=== PATIENT | female | born 1975 | race Caucasian/White ===

== ENCOUNTER 2018-01-06 16:49 | Inpatient (IN) ==
[2018-01-06] MEDS ORDERED: Isovue-370 500 ML INFUS..BTL IV ONE (17:02)
[2018-01-06] MEDS ORDERED: Ondansetron 4 MG/2 ML VIAL IVP ONE (17:03)
[2018-01-06] MEDS ORDERED: *HR* FentaNYL (PF) 100 MCG/2 ML VIAL IVP ONE (17:03)
--- NOTE | 2018-01-06 17:07 | Emergency Department Note ---
Disposition Clinical Impression: Calciphylaxis Cellulitis Qualifiers: Site of cellulitis: unspecified site Qualified Code(s): L03.90 - Cellulitis, unspecified Disposition: Admitted As Inpatient Condition: Fair Referrals: Peter Vicente DO [Primary Care Provider] - Forms: ED Satisfaction Letter Time of Disposition: 18:59 Skin/Abscess/FB HPI Chief complaint: ED Skin/Abscess/Foreign Body Stated complaint: Skin coming off- not fast tracl Time Seen by Provider: 01/06/18 16:57 Source: patient Mode of arrival: ambulatory Limitations: no limitations Nursing Notes Reviewed: Yes Vital Signs Reviewed: Yes HPI Narrative: 42-year-old with lesions on her skin for the last month. She saw her family doctor told her they were bruises. Patient has had increasing pain with progression of symptoms. Pt Subjective Complaint: rash Onset (ago): week(s) Location: Abdomen, buttocks Severity: moderate Quality: aching Consistency: constant Improves with: none Worsens with: movement Context: other (Necrotic areas of skin) Treatments prior to arrival: none Home Medications Medication Instructions Recorded Confirmed Albuterol Sulfate [Albuterol 2 puff IH Q4H PRN 09/09/16 02/27/17 Inhaler] Amiodarone [Cordarone] 200 mg PO DAILY 09/09/16 02/27/17 Amlodipine Besylate 10 mg PO DAILY 09/09/16 02/27/17 Atorvastatin [Lipitor] 40 mg PO HS 09/09/16 02/27/17 Budesonide/Formoterol 160/4.5 2 puff IH BIDR 09/09/16 02/27/17 [Symbicort 160/4.5] Insulin ASPART [Novolog Flexpen] 18 unit SQ TID PRN 09/09/16 02/27/17 Insulin Glargine [Lantus] 8 unit SQ HS 09/09/16 02/27/17 Ipratropium/Albuterol Neb [Duoneb] 3 ml IH QID PRN 09/09/16 02/27/17 Levothyroxine Sodium [Synthroid] 200 mcg PO QAM 09/09/16 02/27/17 Metoprolol Succinate 25 mg PO DAILY 09/09/16 02/27/17 Omeprazole [PriLOSEC] 20 mg PO DAILY 09/09/16 02/27/17 Warfarin [Coumadin] 4 mg PO DAILY 09/09/16 02/27/17 cloNIDine HCl [Clonidine HCl] 0.3 mg PO TID 09/09/16 02/27/17 hydrALAZINE [HydrALAZINE] 50 mg PO BID 09/09/16 02/27/17 predniSONE [PredniSONE] 7.5 mg PO DAILY 09/09/16 02/27/17 Acetaminophen [Acetaminophen ER] 650 mg PO Q4H PRN 12/23/16 02/27/17 Diphenoxylate/Atropine [Lomotil 1 each PO Q4H PRN 12/23/16 02/27/17 2.5 mg/0.025 mg] Montelukast [Singulair] 10 mg PO DAILY 02/16/17 02/27/17 Allergies Allergy/AdvReac Type Severity Reaction Status Date / Time heparin Allergy See Verified 01/06/18 16:55 Comments All systems ED: reviewed and negative except as stated. Constitutional: Denies: fever, chills, weakness, weight change Eyes: Denies: eye pain, eye discharge, vision change ENT ED: Denies: ear pain, throat pain, dental pain, hearing loss, epistaxis, congestion, dysphagia Cardiovascular: Denies: chest pain, palpitations, dyspnea on exertion, edema, syncope Respiratory: Denies: cough, dyspnea, wheezes, hemoptysis, stridor Gastrointestinal: Denies: abdominal pain, nausea, vomiting, diarrhea, constipation, hematemesis, melena, hematochezia Genitourinary: Denies: dysuria, frequency, hematuria, discharge Musculoskeletal: Denies: back pain, neck pain, arthralgia, myalgia Integumentary: Reports: rash (Erythematous rash with areas of necrosis of the skin on the lower abdominal wall.). Denies: abrasion, lesions Neurological: Denies: headache, weakness, numbness, paresthesias, confusion, abnormal gait, vertigo Psychiatric: Denies: anxiety, depression, suicidal thoughts, homicidal thoughts , auditory hallucinations, visual hallucinations Endocrine: Denies: fatigue Hematological/Lymphatic: Denies: easy bleeding, easy bruising Allergic/Immunologic: Denies: facial swelling, urticaria Past Medical History - Past Medical History Medical history: Reports: asthma, atrial fibrillation, diabetes, GI bleed, hyperlipidemia, hypertension, renal disease, thyroid disease Surgical history: Reports: appendectomy, cholecystectomy, thyroidectomy, other Psychiatric history: Reports: no psych history 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 - Social History Smoking Status: Never smoker Smokeless Tobacco Status: No Alcohol use: Reports: none Drug use: Reports: none Physical Exam - General Limitations: no limitations General appearance: alert, in no apparent distress - Head Head exam: atraumatic, normocephalic, normal inspection - Eye Eye exam: Present: normal appearance, PERRL, EOMI - ENT ENT exam: normal exam, normal oropharynx, mucous membranes moist - Neck Neck exam: Present: normal inspection, full ROM, trachea midline - Chest Chest inspection: Present: normal inspection, symmetric chest wall rise - Respiratory Respiratory exam: Present: normal lung sounds bilaterally - Cardiovascular Cardiovascular exam: Present: regular rate, normal rhythm, normal heart sounds - Abdominal Exam Abdominal exam: Present: soft, other (Areas of erythematous rash with central necrosis on the abdominal wall buttocks and lateral hips.) - Expanded Lower Extremity Exam Neurovascular/Tendon exam: Absent: motor deficit, sensory deficit, tendon deficit Gait: observed and normal - Back Exam Back exam: Present: normal inspection, full ROM. Absent: tenderness - Neurological Exam Neurological exam: Present: alert, oriented X3 - Psychiatric Psychiatric exam: Present: normal affect, normal mood - Skin Skin exam: Present: warm, dry, intact, normal color Course - Reevaluation(s) Reevaluation #1: 42-year-old renal dialysis patient comes in with several lesions on the lower abdomen, white counts elevated lactates normal. CT obtained. Disposition based on CT scanning. Calciphylaxis is in the differential. Time: 18:58 - Consultations Consultation #1: Discussed with , will see in consult, okay to give contrast with CT. Time: 18:57 Consultation #2: Discussed with Dr. Addison, admit. Time: 20:19 Vital Signs Temperature 97.8 F 01/06/18 16:51 Pulse Rate 94 01/06/18 16:51 Respiratory Rate 18 01/06/18 16:51 Blood Pressure 113/75 01/06/18 16:51 O2 Sat by Pulse Oximetry 92 01/06/18 16:51 Temperature 97.8 F 01/06/18 17:43 Pulse Rate 73 01/06/18 19:33 Respiratory Rate 16 01/06/18 19:33 Blood Pressure 143/81 01/06/18 19:33 O2 Sat by Pulse Oximetry 100 01/06/18 19:33 Oxygen Delivery Oxygen Delivery Room Air Skin/Abscess/Foreign Body - Lab Data Lab results reviewed: Yes I reviewed the patient's lab results. Result diagrams: 01/06/18 18:09 01/06/18 18:09 Lab Results 01/06/18 01/06/18 01/06/18 Range/Units 18:09 18:09 18:09 WBC 21.7 H (4.3-11.1) K/mcL RBC 2.19 L (3.82-4.97) M/mcL Hgb 7.7 L (11.5-15.4) g/dL Hct 22.9 L (35.3-44.9) % MCV 104.6 H (83.0-100.0) fL MCH 35.2 H (28.0-33.3) pg MCHC 33.6 (31.6-35.5) g/dL RDW 13.8 (11.5-14.5) % Plt Count 219 (140-400) K/mcL MPV 10.5 (9.4-12.4) fL Immature Gran % 2.3 (0-4) % Seg Neutrophils % 85.1 % Lymphocytes % 4.1 % Monocytes % 7.8 % Eosinophils % 0.6 % Basophils % 0.1 % Neutrophils # 18.5 H (1.6-8.9) K/mcL Lymphocytes # 0.9 (0.6-4.6) K/mcL Monocytes # 1.7 H (0.0-1.3) K/mcL Eosinophils # 0.1 (0.0-0.6) K/mcL Basophils # 0.0 (0.0-0.2) K/mcL ESR 47 H (0-15) mm/hr PT 37.8 H (9.4-12.1) Seconds INR 3.4 APTT 47.8 H (26.0-36.0) Seconds Sodium (136-145) mEq/L Potassium (3.5-5.1) mEq/L Chloride (98-107) mEq/L Carbon Dioxide (23-29) mEq/L BUN (6-20) mg/dL Creatinine (0.60-1.20) mg/dL Est GFR ( Amer) (> 60) Est GFR (Non-Af Amer) (> 60) BUN/Creatinine Ratio (6-26) Glucose (70-105) mg/dL Calculated Osmolality (280-300) Lactic Acid (0.5-2.2) mmol/L Calcium (8.6-10.3) mg/dL Total Bilirubin (0.3-1.0) mg/dL Direct Bilirubin (0.0-0.2) mg/dL Indirect Bilirubin (0.0-1.2) mg/dL AST (13-39) Units/L ALT (7-52) Units/L Alkaline Phosphatase (34-104) Units/L Serum Total Protein (6.4-8.9) g/dL Albumin (3.5-5.7) g/dL Globulin (2.4-3.5) g/dL Albumin/Globulin Ratio (1.1-2.2) 01/06/18 01/06/18 Range/Units 18:09 18:09 WBC (4.3-11.1) K/mcL RBC (3.82-4.97) M/mcL Hgb (11.5-15.4) g/dL Hct (35.3-44.9) % MCV (83.0-100.0) fL MCH (28.0-33.3) pg MCHC (31.6-35.5) g/dL RDW (11.5-14.5) % Plt Count (140-400) K/mcL MPV (9.4-12.4) fL Immature Gran % (0-4) % Seg Neutrophils % % Lymphocytes % % Monocytes % % Eosinophils % % Basophils % % Neutrophils # (1.6-8.9) K/mcL Lymphocytes # (0.6-4.6) K/mcL Monocytes # (0.0-1.3) K/mcL Eosinophils # (0.0-0.6) K/mcL Basophils # (0.0-0.2) K/mcL ESR (0-15) mm/hr PT (9.4-12.1) Seconds INR APTT (26.0-36.0) Seconds Sodium 129 L (136-145) mEq/L Potassium 2.7 L (3.5-5.1) mEq/L Chloride 86 L (98-107) mEq/L Carbon Dioxide 23 (23-29) mEq/L BUN 55 H (6-20) mg/dL Creatinine 9.97 H (0.60-1.20) mg/dL Est GFR ( Amer) 5 L (> 60) Est GFR (Non-Af Amer) 4 L (> 60) BUN/Creatinine Ratio 6 (6-26) Glucose 89 (70-105) mg/dL Calculated Osmolality 283 (280-300) Lactic Acid 1.4 (0.5-2.2) mmol/L Calcium 8.2 L (8.6-10.3) mg/dL Total Bilirubin 0.4 (0.3-1.0) mg/dL Direct Bilirubin 0.2 (0.0-0.2) mg/dL Indirect Bilirubin 0.2 (0.0-1.2) mg/dL AST 11 L (13-39) Units/L ALT 16 (7-52) Units/L Alkaline Phosphatase 152 H (34-104) Units/L Serum Total Protein 7.4 (6.4-8.9) g/dL Albumin 2.8 L (3.5-5.7) g/dL Globulin 4.6 H (2.4-3.5) g/dL Albumin/Globulin Ratio 0.6 L (1.1-2.2) - Radiology Data Radiology results reviewed: Yes I reviewed the patient's radiology results. Abdomen/Pelvis CT 01/06/18 17:02 IMPRESSION: 1. No acute findings within the abdomen or pelvis. In particular, mild skin thickening with mild infiltration in the subcutaneous fat in the anterior abdominal wall. No focal subcutaneous fluid collection or evidence of abscess or osteomyelitis. 2. Free fluid throughout the abdomen related to peritoneal dialysis. Small quantity of free air, presumably treatment related as well. 3. Colonic diverticulosis with no acute features. The appendix is unremarkable. 4. Status post cholecystectomy with mild increased prominence of the biliary tree. The changes are likely physiologic in the post cholecystectomy state. D/ / Manav Conrad MD / Manav Conrad MD Interpreting Provider: Manav Conrad MD
[2018-01-06] MEDS ORDERED: *HR* HYDROmorphone (PF) 1 MG/ML SYRINGE IVP ONE (17:46)
[2018-01-06 18:22] LABS: Basophils % 0.1 %; Eosinophils # 0.1 K/mcL (0.0-0.6); Eosinophils % 0.6 %; Hematocrit 22.9 % (35.3-44.9); Hemoglobin 7.7 g/dL (11.5-15.4); Immature Granulocytes % 2.3 % (0-4); Lymphocytes # 0.9 K/mcL (0.6-4.6); Lymphocytes % 4.1 %; Mean Corpuscular HGB Conc 33.6 g/dL (31.6-35.5); Mean Corpuscular Hemoglobin 35.2 pg (28.0-33.3); Mean Corpuscular Volume 104.6 fL (83.0-100.0); Mean Platelet Volume 10.5 fL (9.4-12.4); Monocytes # 1.7 K/mcL (0.0-1.3); Monocytes % 7.8 %; Neutrophils # 18.5 K/mcL (1.6-8.9); Platelet Count 219 K/mcL (140-400); Red Blood Count 2.19 M/mcL (3.82-4.97); Red Cell Distribution Width 13.8 % (11.5-14.5); Segmented Neutrophils % 85.1 %
[2018-01-06 18:29] LABS: INR 3.4; Prothrombin Time 37.8 Seconds (9.4-12.1)
[2018-01-06 18:31] LABS: Activated Partial Thrombo Time 47.8 Seconds (26.0-36.0)
[2018-01-06 18:41] LABS: Albumin 2.8 g/dL (3.5-5.7); Albumin/Globulin Ratio 0.6 (1.1-2.2); Bilirubin,Direct 0.2 mg/dL (0.0-0.2); Bilirubin,Indirect 0.2 mg/dL (0.0-1.2); Bilirubin,Total 0.4 mg/dL (0.3-1.0); Calcium 8.2 mg/dL (8.6-10.3); Globulin 4.6 g/dL (2.4-3.5); Potassium 2.7 mEq/L (3.5-5.1); Total Protein 7.4 g/dL (6.4-8.9)
[2018-01-06 20:42] LABS: Phosphorous 5.6 mg/dL (2.7-4.5)
--- NOTE | 2018-01-06 21:19 | Internal Med History&Physical ---
Date of Encounter: 01/06/18 Time of Encounter: 08:00 Internal Medicine - H&P: HPI Chief complaint: lesions on her skin History of present illness: Ms. Alexis is a 42 year old female with ESRD on HD MWF who presents with lesions on her skin for the last month with a concern for calciphylaxis. She saw her family doctor told her they were bruises. Patient has had increasing pain with progression of symptoms. The patient stated that those lesions start appearing 1 month ago however they become progressively worsening over the last 1 week. She was admitted for further evaluation and management. Past Med Surg Social Fam HX - Past Medical History Medical history: asthma, atrial fibrillation, diabetes, GI bleed, hyperlipidemia , hypertension, renal disease, thyroid disease Additional medical history: ANEMIA, BLEEDING ULCER,. KIDNEY DIALYSIS Psychiatric history: no psych history - Past Surgical History Surgical History: appendectomy, cholecystectomy, thyroidectomy, other Additional surgical history: KIDNEY TRANSPLANT 2007, TUBAL LIGATION, shunt danya - Social History Smoking Status: Never smoker Smokeless Tobacco Status: No Alcohol use: none Drug use: none Internal Medicine - H&P: Meds Albuterol Sulfate [Albuterol Inhaler] 2 puff IH Q4H PRN 09/09/16 [History] Amiodarone [Cordarone] 200 mg PO DAILY 09/09/16 [History] Atorvastatin [Lipitor] 40 mg PO HS 09/09/16 [History] Budesonide/Formoterol 160/4.5 [Symbicort 160/4.5] 2 puff IH BIDR 09/09/16 [ History] Ipratropium/Albuterol Neb [Duoneb] 3 ml IH QID PRN 09/09/16 [History] Levothyroxine Sodium [Synthroid] 200 mcg PO QAM 09/09/16 [History] Omeprazole [PriLOSEC] 20 mg PO DAILY 09/09/16 [History] cloNIDine HCl [Clonidine HCl] 0.1 mg PO TID 09/09/16 [History] hydrALAZINE [HydrALAZINE] 50 mg PO BID 09/09/16 [History] predniSONE [PredniSONE] 10 mg PO DAILY 09/09/16 [History] Acetaminophen [Acetaminophen ER] 650 mg PO Q4H PRN 12/23/16 [History] Diphenoxylate/Atropine [Lomotil 2.5 mg/0.025 mg] 1 each PO Q4H PRN 12/23/16 [ History] Montelukast [Singulair] 10 mg PO DAILY 02/16/17 [History] Amlodipine Besylate [Amlodipine Besylate] 5 mg PO BID 01/07/18 [History] Folic Acid [Folic Acid] 1 mg PO DAILY 01/07/18 [History] Metoprolol Succinate [Toprol Xl] 25 mg PO DAILY 01/07/18 [History] Potassium Chloride 20 meq PO DAILY 01/07/18 [History] Warfarin [Coumadin] 1 mg PO TUTH 01/07/18 [History] Warfarin [Coumadin] 2 mg PO WE 01/07/18 [History] 3 Allergy/AdvReac Type Severity Reaction Status Date / Time heparin Allergy See Verified 01/07/18 13:14 Comments All Systems PM: A 10-system review of systems was performed and is negative for pertinent findings except as documented above in the HPI. - Constitutional Constitutional: no chills, no fever(s), no night sweats - Cardiovascular Cardiovascular ROS IM: no chest pain, no diaphoresis, no dyspnea, no lightheadedness, no palpitations, no syncope - Respiratory Respiratory: no cough, no dyspnea, no wheezing, no excessive phlegm production - Gastrointestinal Gastrointestinal: no abdominal pain, no diarrhea, no hematemesis, no hematochezia, no melena, no nausea, no vomiting - Integumentary Integumentary IM: new lesions - Neurological Neurological ROS: no confusion, no convulsions, no focal weakness, no numbness, no tingling, no tremor(s) - Constitutional Vitals: Temp Pulse Resp BP Pulse Ox 97.8 F 73 16 136/78 100 01/06/18 17:43 01/06/18 19:33 01/06/18 21:01 01/06/18 21:01 01/06/18 19:33 General appearance: Present: A&O X 3 - Head Head exam: Present: atraumatic, normocephalic - Respiratory Respiratory exam: Present: CTAB. Absent: accessory muscle use, rales, rhonchi, wheezes - Cardiovascular Cardiovascular exam: Present: RRR, +S1, +S2. Absent: diastolic murmur, gallop, rubs, systolic murmur - GI/Abdominal GI/Abdominal exam: Present: normal bowel sounds, soft, no peritoneal signs. Absent: distended, tenderness - Extremities Exam Extremities exam: Present: warm, radial pulses palpable and symmetrical. Absent : calf tenderness, cyanotic, pedal edema Additional comments: lesions on her skin was noted Internal Med - H&P Results - Labs CBC & Chem 7: 01/08/18 06:10 01/08/18 06:10 - Assessment and plan (1) Calciphylaxis Current Visit: Yes Status: Acute Assessment and plan: The reported skin lesion is most likely to be calciphylaxis, nephrology was consulted for further evaluation and management, skin biopsy might be considered to confirm diagnosis. (2) ESRD (end stage renal disease) Current Visit: Yes Status: Acute Assessment and plan: The patient is on dialysis Monday, nephrology was consulted to provide renal replacement therapy while inpatient (3) Anemia in chronic kidney disease (CKD) Current Visit: Yes Status: Acute Assessment and plan: Hemoglobin target is 10-11, nephrology was consulted for further evaluation and management Qualifiers: Chronic kidney disease stage: on chronic dialysis Qualified Code(s): N18.6 - End stage renal disease; D63.1 - Anemia in chronic kidney disease; Z99.2 - Dependence on renal dialysis (4) Chronic kidney disease-mineral and bone disorder Current Visit: Yes Status: Acute Assessment and plan: Consider obtaining intact PTH and vitamin D level, low phosphorus diet. (5) Hypokalemia Current Visit: Yes Status: Acute Assessment and plan: We will replace with by mouth potassium and a repeat level. (6) Hyponatremia Current Visit: Yes Status: Acute Assessment and plan: Most likely hypovolemic hyponatremia secondary to volume overload, patient, nephrology was consulted, might consider optimizing ultrafiltration with hemodialysis for volume control. (7) DVT prophylaxis Current Visit: Yes Status: Acute Assessment and plan: We will place SCDs - Time Spent With Patient Total time spent is greater than 50% in coordination of care (as documented) at patient's floor/unit and/or counseling patient:
[2018-01-06] MEDS ORDERED: Naloxone 0.4 MG/ML INJ IVP PRN (22:37)
[2018-01-06] MEDS: *HR* HYDROcodone/Acet 5/325 mg TABLET PO PRN (23:19)
[2018-01-07] MEDS: Acetaminophen 325 MG TABLET PO PRN ×3 (01:16→16:35)
[2018-01-07 03:51] LABS: Basophils % 0.1 %; Eosinophils # 0.1 K/mcL (0.0-0.6); Eosinophils % 0.6 %; Hematocrit 18.8 % (35.3-44.9); Hemoglobin 6.4 g/dL (11.5-15.4); Lymphocytes % 5.1 %; Mean Corpuscular Hemoglobin 35.4 pg (28.0-33.3); Mean Corpuscular Volume 103.9 fL (83.0-100.0); Mean Platelet Volume 10.5 fL (9.4-12.4); Monocytes # 1.7 K/mcL (0.0-1.3); Monocytes % 8.8 %; Neutrophils # 16.6 K/mcL (1.6-8.9); Platelet Count 195 K/mcL (140-400); Red Blood Count 1.81 M/mcL (3.82-4.97); Red Cell Distribution Width 13.6 % (11.5-14.5); Segmented Neutrophils % 83.4 %
[2018-01-07] MEDS ORDERED: Acetaminophen 325 MG TABLET PO PRN (03:58)
[2018-01-07 04:29] LABS: Alanine Aminotransferase 13 Units/L (7-52); Albumin 2.2 g/dL (3.5-5.7); Albumin/Globulin Ratio 0.6 (1.1-2.2); Alkaline Phosphatase 133 Units/L (34-104); Aspartate Amino Transferase 9 Units/L (13-39); BUN/Creatinine Ratio 6 (6-26); Bilirubin,Total 0.4 mg/dL (0.3-1.0); Blood Urea Nitrogen 59 mg/dL (6-20); Calcium 7.3 mg/dL (8.6-10.3); Carbon Dioxide 22 mEq/L (23-29); Chloride 87 mEq/L (98-107); Chol/HDL Ratio 4.2 (0-4.9); Cholesterol 63 mg/dL (< 200); Globulin 3.9 g/dL (2.4-3.5); Glucose 74 mg/dL (70-105); HDL Cholesterol 15 mg/dL (40-59); LDL Cholesterol,Calculated 26 mg/dL (0-99); Magnesium 1.6 mg/dL (1.6-2.6); Osmolality,Calculated 283 (280-300); Phosphorous 5.9 mg/dL (2.7-4.5); Potassium 2.5 mEq/L (3.5-5.1); Sodium 129 mEq/L (136-145); Total Protein 6.1 g/dL (6.4-8.9); Triglycerides 112 mg/dL (< 150); eGFR For African Americans 5 (> 60); eGFR For Non-African Americans 4 (> 60)
[2018-01-07] MEDS: *HR* HYDROcodone/Acet 5/325 mg TABLET PO PRN ×2 (05:32→10:55)
--- NOTE | 2018-01-07 07:57 | Nephrology Consult Note ---
Date of Encounter: 01/07/18 Time of Encounter: 07:54 Assessment and Plan (1) ESRD (end stage renal disease) Current Visit: Yes Status: Acute The patient has end-stage renal disease and currently is on peritoneal dialysis. Her phosphorus is 5.9 PTH is 21.7. She has a clinical picture of calciphylaxis. I would suggest a dermatology consult for skin biopsy. If she does have calciphylaxis she will require treatment with sodium thiosulfate. She has a hemoglobin of 6.4. This is out of proportion to her renal failure and GI bleeding should be ruled out. She needs to guaiacs and iron studies. And she may require blood transfusion. In the meantime I will get her on Aranesp. (2) Calciphylaxis Current Visit: Yes Status: Acute (3) Anemia in chronic kidney disease (CKD) Current Visit: Yes Status: Acute Qualifiers: Chronic kidney disease stage: on chronic dialysis Qualified Code(s): N18.6 - End stage renal disease; D63.1 - Anemia in chronic kidney disease; Z99.2 - Dependence on renal dialysis History of Present Illness - History of Present Illness Patient presented to the emergency room with complaints of worsening painful lesions over her abdomen and flank areas. She said the lesions have been there for about a month but over the past week gotten worse and more painful. She reports she saw her primary care doctor who diagnosed her with contusions. Patient has end-stage renal disease and is currently on peritoneal dialysis. She does 4 exchanges per day with 2.5 L alternating 1.5 and 2.5% dialysate. Past Med Surg Social Fam HX - Past Medical History Medical history: asthma, atrial fibrillation, diabetes, GI bleed, hyperlipidemia , hypertension, renal disease, thyroid disease Additional medical history: ANEMIA, BLEEDING ULCER,. KIDNEY DIALYSIS Psychiatric history: no psych history - Past Surgical History Surgical History: appendectomy, cholecystectomy, thyroidectomy, other Additional surgical history: KIDNEY TRANSPLANT 2007, TUBAL LIGATION, shunt danya - Social History Smoking Status: Never smoker Smokeless Tobacco Status: No Alcohol use: none Drug use: none Medications and Allergies Albuterol Sulfate [Albuterol Inhaler] 2 puff IH Q4H PRN 09/09/16 [History] Amiodarone [Cordarone] 200 mg PO DAILY 09/09/16 [History] Amlodipine Besylate 10 mg PO DAILY 09/09/16 [History] Atorvastatin [Lipitor] 40 mg PO HS 09/09/16 [History] Budesonide/Formoterol 160/4.5 [Symbicort 160/4.5] 2 puff IH BIDR 09/09/16 [ History] Insulin ASPART [Novolog Flexpen] 18 unit SQ TID PRN 09/09/16 [History] Insulin Glargine [Lantus] 8 unit SQ HS 09/09/16 [History] Ipratropium/Albuterol Neb [Duoneb] 3 ml IH QID PRN 09/09/16 [History] Levothyroxine Sodium [Synthroid] 200 mcg PO QAM 09/09/16 [History] Metoprolol Succinate 25 mg PO DAILY 09/09/16 [History] Omeprazole [PriLOSEC] 20 mg PO DAILY 09/09/16 [History] Warfarin [Coumadin] 4 mg PO DAILY 09/09/16 [History] cloNIDine HCl [Clonidine HCl] 0.1 mg PO TID 09/09/16 [History] hydrALAZINE [HydrALAZINE] 50 mg PO BID 09/09/16 [History] predniSONE [PredniSONE] 10 mg PO DAILY 09/09/16 [History] Acetaminophen [Acetaminophen ER] 650 mg PO Q4H PRN 12/23/16 [History] Diphenoxylate/Atropine [Lomotil 2.5 mg/0.025 mg] 1 each PO Q4H PRN 12/23/16 [ History] Montelukast [Singulair] 10 mg PO DAILY 02/16/17 [History] 3 Allergy/AdvReac Type Severity Reaction Status Date / Time heparin Allergy See Verified 01/06/18 16:55 Comments Review of Systems Constitutional: as per HPI Eyes: bilateral: blurred vision (patient denies), diplopia (patient denies) Nose, mouth and throat: no dizziness, no headache(s) Cardiovascular: as per HPI, dyspnea on exertion Respiratory: as per HPI, dyspnea on exertion Gastrointestinal: no abdominal pain, no change in bowel habits Musculoskeletal: back pain, no muscle weakness, no numbness Integumentary: as per HPI, skin ulcer, sores, wounds Neurological: as per HPI Psychiatric: no depression, no difficulty concentrating Endocrine: as per HPI Exam - Vital Signs Vital signs: Initial Vital Signs Temp Pulse Resp BP Pulse Ox 97.8 F 94 18 113/75 92 01/06/18 16:51 01/06/18 16:51 01/06/18 16:51 01/06/18 16:51 01/06/18 16:51 Vital Signs - Last 8 Hours Temp Pulse Resp BP Pulse Ox 01/07/18 06:45 98.3 F 72 16 108/70 94 Intake and Output 01/06/18 01/06/18 01/07/18 15:59 23:59 07:59 Other: Weight 83.2 kg Patient Weight 01/07/18 23:59 Weight 83.2 kg - General Appearance Exam: Patient is alert and oriented. She is in no acute distress. Lungs essentially clear to auscultation. Heart irregular rhythm with a 2/6 ejection murmur. Abdomen is soft and nontender. Peritoneal dialysis catheter exit site is intact. Patient has several lesions on her abdomen and flanks with central necrosis. They are very tender. Clinically they appear to be calciphylaxis. Extremities show minimal peripheral edema. Results - Lab Results 01/07/18 03:17 01/07/18 03:17 Most recent lab results Calcium 7.3 mg/dL (8.6-10.3) L 01/07/18 03:17 Phosphorus 5.9 mg/dL (2.7-4.5) H 01/07/18 03:17 Magnesium 1.6 mg/dL (1.6-2.6) 01/07/18 03:17 Consult Discharge Plan - Plan Referrals: Peter Vicente DO [Primary Care Provider] -
[2018-01-07 08:48] LABS: Ferritin > 1500 ng/mL (10-120); Iron 35 mcg/dL (50-170); Transferrin < 75 mg/dL (203-362)
[2018-01-07] MEDS: Darbepoetin 150 MCG/0.3 ML SYRINGE SQ SCH (08:50)
[2018-01-07] MEDS: *HR* Amiodarone 200 MG TABLET PO SCH (08:51)
[2018-01-07] MEDS: predniSONE 10 MG TABLET PO SCH (08:52)
[2018-01-07] MEDS: Potassium Effervescent 25 MEQ TABLET.EFF PO ONE ×2 (08:52→09:10)
[2018-01-07] MEDS: cloNIDine HCl 0.1 MG TABLET PO SCH ×2 (10:18→22:11)
[2018-01-07] MEDS: amLODIPine 5 MG TABLET PO SCH (10:18)
[2018-01-07] MEDS: hydrALAZINE 25 MG TABLET PO SCH ×2 (10:18→22:11)
[2018-01-07] MEDS: Metoprolol XL (24 HR) Succ 25 MG TAB.ER.24H PO SCH (10:18)
[2018-01-07] MEDS ORDERED: *HR* HYDROcodone/Acet 5/325 mg TABLET PO ONE (11:00)
[2018-01-07] MEDS: Budesonide/Formoterol 160/4.5 MDI IH SCH ×2 (12:13→22:30)
[2018-01-07] MEDS: *HR* HYDROcodone/Acet 10/325 mg TABLET PO PRN (17:34)
[2018-01-07] MEDS ORDERED: Perit. Dialysis with Dex 1.5 % 12,000 ML PERITONEAL ONE (19:00)
[2018-01-07] MEDS ORDERED: 0.9 % Sodium Chloride 250 ML ONE ×2 (20:07→23:36)
--- NOTE | 2018-01-07 23:34 | Internal Med Progress Note ---
Date of Encounter: 01/07/18 Time of Encounter: 23:32 - Assessment and plan (1) Calciphylaxis Current Visit: Yes Status: Ruled-out (2) ESRD on hemodialysis Current Visit: Yes Status: Acute (3) Anemia in chronic kidney disease (CKD) Current Visit: Yes Status: Chronic Qualifiers: Chronic kidney disease stage: on chronic dialysis Qualified Code(s): N18.6 - End stage renal disease; D63.1 - Anemia in chronic kidney disease; Z99.2 - Dependence on renal dialysis (4) Acute hypokalemia Current Visit: Yes Status: Acute - Time Spent With Patient Total time spent is greater than 50% in coordination of care (as documented) at patient's floor/unit and/or counseling patient: 25 - 35 minutes - Subjective Interval history: .. Her pain is pretty much under control; takes her [place] 10/325, if needed. OBJECTIVE: .. Skin: She does have multiple purple plaque lesions on the skin of her abdomen; some of them showing necrotic lesions in the centers ENMT: Oral/pharyngeal mucosa is normal in appearance. Eyes: Sclera is white. There is no discharge from eyes. Respiratory: Normal breath sounds; no crackles or wheezes. CV: Heart is regular; no gallop or murmur. GI: Abdomen is showing generalized tenderness due to the skin lesions mentioned above. Neuro: There is no focal deficits. ASSESSMENT AND PLAN: .. Possible calciphylaxis. Awaiting dermatology consult/bx. She had this condition in 2017. Will continue Narco for pain control. Atrial fibrillation. It is rate controlled. Will continue Cordarone and Toprol -XL. Her warfarin is on hold. She will have skin necrosis due to oral warfarin. End-stage renal disease on hemodialysis with anemia in chronic kidney disease. See notes from nephrology. We will continue Aranesp. Acute hypokalemia and hypomagnesemia. She received a lot of potassium chloride and magnesium sulfate. We will be watching her potassium and magnesium levels closely. - Constitutional Vitals: Temp Pulse Resp BP Pulse Ox 98.6 F 75 16 101/68 98 01/07/18 22:45 01/07/18 22:45 01/07/18 22:45 01/07/18 22:45 01/07/18 22:45 General appearance: Present: A&O X 3 Internal Medicine: Result - Labs CBC & Chem 7: 06/28/18 04:56 01/11/18 04:56 - ABG Interpretation ABG results: PT/INR, D-dimer PT 37.8 Seconds (9.4-12.1) H 01/06/18 18:09 Consult Discharge Plan - Plan Referrals: Peter Vicente DO [Primary Care Provider] - 01/24/18 10:00 am (Please follow up as schedule...with Dr. Yang)
[2018-01-07 23:38] LABS: Hepatitis B Surface Antigen Nonreactive (Nonreactive)
[2018-01-08 01:13] LABS: Hepatitis B Surface Antibody 0.98 mIU/mL
[2018-01-08] MEDS: [UNRECOGNIZED DRUG - OTHER] PERITONEAL SCH (05:35)
[2018-01-08 06:27] LABS: Mean Platelet Volume 10.5 fL (9.4-12.4)
[2018-01-08 06:29] LABS: Hematocrit 23.4 % (35.3-44.9); Hemoglobin 7.9 g/dL (11.5-15.4); Mean Corpuscular HGB Conc 33.8 g/dL (31.6-35.5); Mean Corpuscular Hemoglobin 32.8 pg (28.0-33.3); Mean Corpuscular Volume 97.1 fL (83.0-100.0); Platelet Count 208 K/mcL (140-400); Red Blood Count 2.41 M/mcL (3.82-4.97); Red Cell Distribution Width 18.3 % (11.5-14.5)
[2018-01-08 06:54] LABS: Lymphocytes # 1.8 K/mcL (0.6-4.6); Monocytes # 2.3 K/mcL (0.0-1.3); Platelet Estimate Normal (Normal)
[2018-01-08 06:56] LABS: Albumin 2.4 g/dL (3.5-5.7); Albumin/Globulin Ratio 0.6 (1.1-2.2); Bilirubin,Total 0.3 mg/dL (0.3-1.0); Calcium 7.2 mg/dL (8.6-10.3); Globulin 4.3 g/dL (2.4-3.5); Magnesium 2.4 mg/dL (1.6-2.6); Potassium 3.5 mEq/L (3.5-5.1); Total Protein 6.7 g/dL (6.4-8.9)
[2018-01-08] MEDS: Budesonide/Formoterol 160/4.5 MDI IH SCH ×2 (07:22→19:33)
[2018-01-08] MEDS: hydrALAZINE 25 MG TABLET PO SCH ×2 (08:17→21:20)
[2018-01-08] MEDS: cloNIDine HCl 0.1 MG TABLET PO SCH ×2 (08:17→21:20)
[2018-01-08] MEDS: predniSONE 10 MG TABLET PO SCH (08:21)
[2018-01-08] MEDS: Metoprolol XL (24 HR) Succ 25 MG TAB.ER.24H PO SCH (08:21)
[2018-01-08] MEDS: *HR* Amiodarone 200 MG TABLET PO SCH (08:21)
[2018-01-08] MEDS: *HR* HYDROcodone/Acet 10/325 mg TABLET PO PRN ×2 (08:27→17:59)
--- NOTE | 2018-01-08 12:23 | Nephrology Progress Note ---
Date of Encounter: 01/08/18 Time of Encounter: 12:05 - Assessment and Plan (1) ESRD (end stage renal disease) Current Visit: Yes Status: Acute Derm consulted for bx abdominal lesions with hstory calciphylaxis. PD cycler at night. Orders given. Subjective Interval history: Laying in bed, watching tv. States abdominal lesions painful. Objective - Vital Signs Vital signs: Vital Signs Temp Pulse Resp BP Pulse Ox 01/08/18 10:02 98.6 F 70 16 100/64 95 01/08/18 07:47 98.2 F 73 17 100/61 93 01/08/18 07:24 16 95 01/08/18 07:15 98.1 F 16 116/77 01/08/18 05:18 98 F 70 16 123/83 96 01/08/18 01:54 98.1 F 68 18 113/72 01/08/18 01:39 98.1 F 82 16 102/66 98 01/07/18 23:30 98 F 86 16 123/80 96 01/07/18 22:45 98.6 F 75 16 101/68 98 01/07/18 22:32 18 99 01/07/18 20:30 98.2 F 16 116/74 01/07/18 20:29 98.2 F 82 16 116/74 95 01/07/18 20:14 98.2 F 67 16 104/70 01/07/18 19:07 98.4 F 69 16 102/68 99 Intake and Output 01/07/18 01/08/18 01/08/18 23:59 07:59 15:59 Intake Total 350 / 350 350 / 350 240 / 240 Output Total 0 / 0 Balance 350 / 350 350 / 350 240 / 240 Intake: Oral 240 / 240 Blood Product 350 / 350 350 / 350 Rbcs Leuko Poor As-1 Unit 350 / 350 [id number] Rbcs Leuko Poor As-1 Unit 350 / 350 [id number] Output: Urine 0 / 0 Other: Meal Breakfast Percent of Meal Consumed 50% Weight 83.2 kg 87.6 kg Patient Weight 01/08/18 23:59 Weight 87.6 kg - General Appearance General appearance: Present: well-developed, well-nourished, appears started age , obese EENT: Present: mucous membranes moist Neck: Present: no JVD Respiratory: Present: clear Cardiology: Present: no edema, regular rate, regular rhythm Additional Comments: PD cath Gastrointestinal: Present: normoactive bowel sounds, tenderness Additional Comments: several open lesions, sanguinous oozing Integumentary: Present: warm and dry Neurologic: Present: alert and oriented x3 - Lab 01/08/18 06:10 01/08/18 06:10 Most recent lab results Calcium 7.2 mg/dL (8.6-10.3) L 01/08/18 06:10 Phosphorus 5.9 mg/dL (2.7-4.5) H 01/07/18 03:17 Magnesium 2.4 mg/dL (1.6-2.6) 01/08/18 06:10 Consult Discharge Plan - Plan Referrals: Peter Vicente DO [Primary Care Provider] -
[2018-01-08] MEDS: amLODIPine 5 MG TABLET PO SCH (14:25)
[2018-01-08] MEDS: Acetaminophen 325 MG TABLET PO PRN ×2 (14:35→21:43)
--- NOTE | 2018-01-08 15:58 | Dermatology Consult Note ---
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 now new painful eruption of purple black skin x 1 month on abdomen. pt had us by pcp and told was just bruising and given atb for possible infection by another provider Review of Systems General/Constitutional: Patient denies fevers, chills, nor recent unintended weight loss, night sweats, no change in appetite or malaise. Hematologic: Patient denies new or enlarging lumps or bumps. Skin: Patient denies new or changing moles, or rash other than what is mentioned above. Past Med Surg Social Fam HX - Past Medical History Medical history: asthma, atrial fibrillation, diabetes, GI bleed, hyperlipidemia , hypertension, renal disease, thyroid disease Additional medical history: ANEMIA, BLEEDING ULCER,. KIDNEY DIALYSIS Psychiatric history: no psych history - Past Surgical History Surgical History: appendectomy, cholecystectomy, thyroidectomy, other Additional surgical history: KIDNEY TRANSPLANT 2007, TUBAL LIGATION, shunt danya - Social History Smoking Status: Never smoker Smokeless Tobacco Status: No Alcohol use: none Drug use: none Medications and Allergies Albuterol Sulfate [Albuterol Inhaler] 2 puff IH Q4H PRN 09/09/16 [History] Amiodarone [Cordarone] 200 mg PO DAILY 09/09/16 [History] Atorvastatin [Lipitor] 40 mg PO HS 09/09/16 [History] Budesonide/Formoterol 160/4.5 [Symbicort 160/4.5] 2 puff IH BIDR 09/09/16 [ History] Ipratropium/Albuterol Neb [Duoneb] 3 ml IH QID PRN 09/09/16 [History] Levothyroxine Sodium [Synthroid] 200 mcg PO QAM 09/09/16 [History] Omeprazole [PriLOSEC] 20 mg PO DAILY 09/09/16 [History] cloNIDine HCl [Clonidine HCl] 0.1 mg PO TID 09/09/16 [History] hydrALAZINE [HydrALAZINE] 50 mg PO BID 09/09/16 [History] predniSONE [PredniSONE] 10 mg PO DAILY 09/09/16 [History] Acetaminophen [Acetaminophen ER] 650 mg PO Q4H PRN 12/23/16 [History] Diphenoxylate/Atropine [Lomotil 2.5 mg/0.025 mg] 1 each PO Q4H PRN 12/23/16 [ History] Montelukast [Singulair] 10 mg PO DAILY 02/16/17 [History] Amlodipine Besylate [Amlodipine Besylate] 5 mg PO BID 01/07/18 [History] Folic Acid [Folic Acid] 1 mg PO DAILY 01/07/18 [History] Metoprolol Succinate [Toprol Xl] 25 mg PO DAILY 01/07/18 [History] Potassium Chloride 20 meq PO DAILY 01/07/18 [History] Warfarin [Coumadin] 1 mg PO TUTH 01/07/18 [History] Warfarin [Coumadin] 2 mg PO WE 01/07/18 [History] 3 Allergy/AdvReac Type Severity Reaction Status Date / Time heparin Allergy See Verified 01/07/18 13:14 Comments Examination Vital Signs: Temp Pulse Resp BP Pulse Ox 98.6 F 70 16 100/64 95 01/08/18 10:02 01/08/18 10:02 01/08/18 10:02 01/08/18 10:02 01/08/18 10:02 General Examination: The patient appears alert, oriented X3, in no acute distress, healthy-appearing , normal mood. abdomen and thighs w/ violaceous, necrotic reticulated patches scattered on abdomen and thighs - Assessment and Plan (1) Rash Current Visit: Yes Status: Acute highly suspect calciphlaxis -- coumadin necrosis in DDX but would be unusual in longstanding case of coumadin use. Would rec tx w/ sodium thiosulfate now w/ HD if possible per renal Procedure: Dermatology Date of procedure: 01/08/18 Procedure: Punch biopsy of the rash noted abdomen to establish and confirm diagnosis. The procedure, risks, benefits, alternatives and expected outcomes were discussed with the patient and consent was obtained. Time out called. Patient identified, procedure verified, site identified and verified. Patient and staff present in agreement. Area prepped with alcohol and anesthetized with 1.0% lidocaine with epinephrine at 1:100,000 concentration. 2 ml of lidocaine with epinephrine were injected. Biopsy of lesion performed. Lesion closed with 2 4-0 prolene interrupted suture and bandaging applied. Specimen sent to pathology. Patient instructed in routine post-op care. Patient instructed in routine post-op care and wound care handout given. Consult Discharge Plan - Plan Referrals: Peter Vicente DO [Primary Care Provider] -
[2018-01-08] MEDS ORDERED: Perit. Dialysis with Dex 1.5 % 12,000 ML PERITONEAL SCH ×2 (17:00→20:00)
[2018-01-08] MEDS ORDERED: Perit. Dialysis with Dex 1.5 % 12,000 ML PERITONEAL ONE (20:00)
--- NOTE | 2018-01-08 23:20 | Internal Med Progress Note ---
Date of Encounter: 01/08/18 Time of Encounter: 23:19 - Assessment and plan (1) Calciphylaxis Current Visit: Yes Status: Acute (2) Afib Current Visit: Yes Status: Acute Qualifiers: Atrial fibrillation type: paroxysmal Qualified Code(s): I48.0 - Paroxysmal atrial fibrillation (3) ESRD on hemodialysis Current Visit: Yes Status: Acute (4) Anemia in chronic kidney disease (CKD) Current Visit: Yes Status: Acute Qualifiers: Chronic kidney disease stage: on chronic dialysis Qualified Code(s): N18.6 - End stage renal disease; D63.1 - Anemia in chronic kidney disease; Z99.2 - Dependence on renal dialysis (5) Acute hypokalemia Current Visit: Yes Status: Acute (6) Hypomagnesemia Current Visit: Yes Status: Acute - Time Spent With Patient Total time spent is greater than 50% in coordination of care (as documented) at patient's floor/unit and/or counseling patient: - Subjective Interval history: .. Her pain is pretty much under control; takes her Lawn 10/325, if needed. She had dermatology consult today. A punch biopsy was done. OBJECTIVE: .. Skin: She does have multiple purple plaque lesions on the skin of her abdomen; some of them showing necrotic lesions in the centers ENMT: Oral/pharyngeal mucosa is normal in appearance. Eyes: Sclera is white. There is no discharge from eyes. Respiratory: Normal breath sounds; no crackles or wheezes. CV: Heart is regular; no gallop or murmur. GI: Abdomen is showing generalized tenderness due to the skin lesions mentioned above. Neuro: There is no focal deficits. ASSESSMENT AND PLAN: .. Possible calciphylaxis. See consultation note from dermatology. She had this condition in 2017. A punch biopsy has been done. Switching from peritoneal dialysis to hemodialysis as well as start treatment with sodium thiosulfate has been recommended by dermatology. Will continue Narco for pain control. Atrial fibrillation. It is rate controlled. Will continue Cordarone and Toprol -XL. Her warfarin is on hold. It may be because of her skin necrosis. End-stage renal disease on hemodialysis with anemia in chronic kidney disease. See notes from nephrology. We will continue Aranesp. She was transfused with 2 units of packed red blood cells last night. Acute hypokalemia and hypomagnesemia. She received a lot of potassium chloride and magnesium sulfate. We will be watching her potassium and magnesium levels closely. NOTES: DISPOSITION: - Constitutional Vitals: Temp Pulse Resp BP Pulse Ox 98.2 F 70 16 95/58 95 01/08/18 20:40 01/08/18 19:42 01/08/18 20:40 01/08/18 20:40 01/08/18 19:42 General appearance: Present: A&O X 3, pleasant, no acute distress Internal Medicine: Result - Labs CBC & Chem 7: 01/08/18 06:10 01/08/18 06:10 Labs: Short CBC 01/08/18 Range/Units 06:10 WBC 29.1 H (4.3-11.1) K/mcL Hgb 7.9 L D (11.5-15.4) g/dL Hct 23.4 L (35.3-44.9) % Plt Count 208 (140-400) K/mcL Neutrophils # 25.0 H (1.6-8.9) K/mcL BMP 01/08/18 06:10 Sodium 129 L Potassium 3.5 Chloride 89 L Carbon Dioxide 21 L BUN 61 H Creatinine 10.45 H Glucose 123 H Calcium 7.2 L Liver Function 01/08/18 Range/Units 06:10 Total Bilirubin 0.3 (0.3-1.0) mg/dL AST 10 L (13-39) Units/L ALT 13 (7-52) Units/L Alkaline Phosphatase 155 H (34-104) Units/L Albumin 2.4 L (3.5-5.7) g/dL - ABG Interpretation ABG results: PT/INR, D-dimer PT 37.8 Seconds (9.4-12.1) H 01/06/18 18:09 - VTE Reasons for not Prescribing Prophylaxis: Medical contraindication Consult Discharge Plan - Plan Referrals: Peter Vicente DO [Primary Care Provider] -
[2018-01-09] MEDS: *HR* HYDROcodone/Acet 10/325 mg TABLET PO PRN ×4 (01:15→21:34)
[2018-01-09] MEDS: Acetaminophen 325 MG TABLET PO PRN (05:56)
[2018-01-09] MEDS: Perit. Dialysis with Dex 1.5 % 12,000 ML PERITONEAL SCH ×4 (05:57→11:35)
--- NOTE | 2018-01-09 08:22 | Nephrology Progress Note ---
Date of Encounter: 01/09/18 Time of Encounter: 08:20 - Assessment and Plan (1) ESRD (end stage renal disease) Current Visit: Yes Status: Acute Patient is a clinical picture of calciphylaxis. Biopsy report is pending. She will be started on Renvela for the phosphorus. PTH is satisfactory. She is going to be started on sodium thiosulfate 25 g IV 3 times per week. She wishes to remain on peritoneal dialysis. Accordingly she will need to have outpatient IV access established and have to have arrangements made for sodium thiosulfate to be administered at home 3 days per week. I would also suggest a wound care culture. The patient's wounds should be debrided only if infected. (2) Calciphylaxis Current Visit: Yes Status: Acute (3) Anemia in chronic kidney disease (CKD) Current Visit: Yes Status: Acute Qualifiers: Chronic kidney disease stage: on chronic dialysis Qualified Code(s): N18.6 - End stage renal disease; D63.1 - Anemia in chronic kidney disease; Z99.2 - Dependence on renal dialysis Subjective Interval history: The patient continues to have intermittent pain from her skin lesions. A biopsy was done yesterday. Results are pending. Clinically she has a picture of calciphylaxis. Phosphorus is mildly elevated. PTH is around 21. She is being maintained on peritoneal dialysis. Vital signs are stable. Objective - Vital Signs Vital signs: Vital Signs Temp Pulse Resp BP Pulse Ox 01/09/18 07:38 98.2 F 73 16 127/62 96 01/09/18 03:50 98.4 F 74 18 126/71 96 01/09/18 00:19 98.3 F 71 17 121/74 97 01/08/18 20:40 98.2 F 16 95/58 01/08/18 19:42 98.2 F 70 17 95/58 95 01/08/18 19:33 15 96 01/08/18 10:02 98.6 F 70 16 100/64 95 Intake and Output 01/08/18 01/09/18 01/09/18 23:59 07:59 15:59 Other: Weight 87.6 kg 98.2 kg Patient Weight 01/09/18 23:59 Weight 98.2 kg - General Appearance Exam: Patient is alert and oriented. She is in no acute distress. Blood pressure 126 /71. Lungs essentially clear to auscultation. Heart regular rhythm with a 2/6 talk ejection murmur. Abdomen shows the peritoneal dialysis catheter exit site without any obvious infection. She has multiple necrotic skin lesions on the abdomen and upper thighs. - Lab 01/08/18 06:10 01/08/18 06:10 Most recent lab results Calcium 7.2 mg/dL (8.6-10.3) L 01/08/18 06:10 Phosphorus 5.9 mg/dL (2.7-4.5) H 01/07/18 03:17 Magnesium 2.4 mg/dL (1.6-2.6) 01/08/18 06:10 - VTE Reasons for not Prescribing Prophylaxis: Medical contraindication Consult Discharge Plan - Plan Referrals: Peter Vicente DO [Primary Care Provider] -
[2018-01-09] MEDS: Budesonide/Formoterol 160/4.5 MDI IH SCH ×2 (09:39→20:05)
[2018-01-09] MEDS: Metoprolol XL (24 HR) Succ 25 MG TAB.ER.24H PO SCH (09:55)
[2018-01-09] MEDS: cloNIDine HCl 0.1 MG TABLET PO SCH ×2 (09:55→21:34)
[2018-01-09] MEDS: amLODIPine 5 MG TABLET PO SCH (09:55)
[2018-01-09] MEDS: hydrALAZINE 25 MG TABLET PO SCH ×2 (09:55→21:34)
[2018-01-09] MEDS: *HR* Amiodarone 200 MG TABLET PO SCH (09:55)
[2018-01-09] MEDS: Sodium Thiosulfate 25 GM in EMPTY BAG 1 EACH IVPB SCH (09:56)
[2018-01-09] MEDS: predniSONE 10 MG TABLET PO SCH (09:58)
--- NOTE | 2018-01-09 11:14 | Internal Med Progress Note ---
Date of Encounter: 01/09/18 Time of Encounter: 11:13 - Assessment and plan (1) Calciphylaxis Current Visit: Yes Status: Acute Assessment and plan: Hx of same, biipsy proven in 2017 skin biopsy from this admission pending Continue thiosulphate Pain control (2) ESRD (end stage renal disease) Current Visit: Yes Status: Chronic Assessment and plan: on peritoneal dialysis, per renal, continue same (3) Anemia in chronic kidney disease (CKD) Current Visit: Yes Status: Chronic Assessment and plan: chronic, stable Qualifiers: Chronic kidney disease stage: on chronic dialysis Qualified Code(s): N18.6 - End stage renal disease; D63.1 - Anemia in chronic kidney disease; Z99.2 - Dependence on renal dialysis (4) Chronic kidney disease-mineral and bone disorder Current Visit: Yes Status: Acute Assessment and plan: Sevelamer started by renal, continue same (5) Hypokalemia Current Visit: Yes Status: Resolved Assessment and plan: K 3.5 this a.m Continue to monitor (6) Hyponatremia Current Visit: Yes Status: Acute Assessment and plan: Na stable at 129, renal following, management per renal (7) DVT prophylaxis Current Visit: Yes Status: Acute Assessment and plan: SCDs - Time Spent With Patient Total time spent is greater than 50% in coordination of care (as documented) at patient's floor/unit and/or counseling patient: - Subjective Interval history: Seen and examined at the bedside She is complaining of poor pain control of her skin lesions Patient with biopsy proven calciphylaxis, being comanaged with nephrology skin biopsy from 01/08 is pending Per Nephrology, patient declined HD and wishes to continue PD Has been started on sodium thiosulphate this mrn, derm eval reviewed, recommended converting also to HD IV access needed for 3ice weekly dosing - Constitutional Vitals: Temp Pulse Resp BP Pulse Ox 98.2 F 73 16 127/62 96 01/09/18 07:38 01/09/18 07:38 01/09/18 09:40 01/09/18 07:38 01/09/18 09:40 General appearance: Present: A&O X 3, morbidly obese, pleasant, no acute distress - Head Head exam: Present: atraumatic, normocephalic - Eye Eye exam: Present: PERRL, conjuntiva pink, sclera anicteric Pupils: Present: PERRL - Neck Neck exam general surgery: Present: supple, trachea midline. Absent: lymphadenopathy - Respiratory Respiratory exam: Present: CTAB. Absent: accessory muscle use, rales, rhonchi, wheezes - Cardiovascular Cardiovascular exam: Present: RRR, +S1, +S2. Absent: diastolic murmur, gallop, rubs, systolic murmur - GI/Abdominal GI/Abdominal exam: Present: normal bowel sounds, soft, no peritoneal signs. Absent: distended, tenderness - Extremities Exam Extremities exam: Present: warm, radial pulses palpable and symmetrical. Absent : calf tenderness, cyanotic, pedal edema - Neurological Exam Neurological exam: Present: alert, CN II-XII intact, oriented X3, no focal deficits. Absent: pronater drift, facial droop, speech deficit - Skin Additional comments: multiple purple plaque lesions on the skin of her abdomen; some of them showing necrotic lesions in the centers, healed lesions on the legs. Internal Medicine: Result - Labs CBC & Chem 7: 01/08/18 06:10 01/08/18 06:10 - ABG Interpretation ABG results: PT/INR, D-dimer PT 37.8 Seconds (9.4-12.1) H 01/06/18 18:09 - VTE Reasons for not Prescribing Prophylaxis: Medical contraindication Consult Discharge Plan - Plan Referrals: Peter Vicente DO [Primary Care Provider] -
[2018-01-09] MEDS: [UNRECOGNIZED DRUG - OTHER] PERITONEAL SCH ×3 (11:34→11:36)
[2018-01-09] MEDS ORDERED: Perit. Dialysis with Dex 1.5 % 12,000 ML PERITONEAL ONE (19:00)
[2018-01-10] MEDS: *HR* HYDROcodone/Acet 10/325 mg TABLET PO PRN ×3 (03:38→20:25)
[2018-01-10 04:57] LABS: Basophils % 0.1 %; Eosinophils # 0.2 K/mcL (0.0-0.6); Eosinophils % 0.8 %; Hematocrit 24.3 % (35.3-44.9); Hemoglobin 8.2 g/dL (11.5-15.4); Immature Granulocytes % 4.1 % (0-4); Lymphocytes # 1.2 K/mcL (0.6-4.6); Lymphocytes % 5.3 %; Mean Corpuscular HGB Conc 33.7 g/dL (31.6-35.5); Mean Corpuscular Hemoglobin 32.4 pg (28.0-33.3); Mean Platelet Volume 10.6 fL (9.4-12.4); Monocytes # 1.5 K/mcL (0.0-1.3); Monocytes % 6.6 %; Neutrophils # 18.5 K/mcL (1.6-8.9); Nucleated Red Blood Cells 0.2 /100 WBC (0); Platelet Count 226 K/mcL (140-400); Red Blood Count 2.53 M/mcL (3.82-4.97); Red Cell Distribution Width 19.5 % (11.5-14.5); Segmented Neutrophils % 83.1 %
[2018-01-10 05:15] LABS: Phosphorous 3.9 mg/dL (2.7-4.5)
[2018-01-10 05:16] LABS: Calcium 6.9 mg/dL (8.6-10.3); Potassium 3.6 mEq/L (3.5-5.1)
[2018-01-10] MEDS: Perit. Dialysis with Dex 1.5 % 12,000 ML PERITONEAL SCH (07:23)
[2018-01-10] MEDS: hydrALAZINE 25 MG TABLET PO SCH ×2 (08:13→20:26)
[2018-01-10] MEDS: Metoprolol XL (24 HR) Succ 25 MG TAB.ER.24H PO SCH (08:13)
[2018-01-10] MEDS: *HR* Amiodarone 200 MG TABLET PO SCH (08:13)
[2018-01-10] MEDS: cloNIDine HCl 0.1 MG TABLET PO SCH ×2 (08:13→20:27)
[2018-01-10] MEDS: predniSONE 10 MG TABLET PO SCH (08:13)
[2018-01-10] MEDS: amLODIPine 5 MG TABLET PO SCH (08:13)
[2018-01-10] MEDS: Ondansetron 4 MG/2 ML VIAL IVP PRN (08:14)
[2018-01-10] MEDS: Budesonide/Formoterol 160/4.5 MDI IH SCH ×2 (10:52→20:06)
--- NOTE | 2018-01-10 11:52 | Internal Med Progress Note ---
Date of Encounter: 01/10/18 Time of Encounter: 11:52 - Assessment and plan (1) Calciphylaxis Current Visit: Yes Status: Acute Assessment and plan: Wound care reconsulted for dressing recommendations Started on empiric antibiotics Will await skin biopsy reports Derm hao noted-recommends to treat as calciphylaxis Continue renvela to decrease Phos/Ronal product Continue pain control Plan is to eventually resume HD , discontinue PD and administer thisulphate with HD 3ice weekly Renal is following (2) ESRD (end stage renal disease) Current Visit: Yes Status: Chronic Assessment and plan: on PD, continue same till changed to HD by renal (3) Anemia in chronic kidney disease (CKD) Current Visit: Yes Status: Chronic Assessment and plan: chronic, stable Qualifiers: Chronic kidney disease stage: on chronic dialysis Qualified Code(s): N18.6 - End stage renal disease; D63.1 - Anemia in chronic kidney disease; Z99.2 - Dependence on renal dialysis (4) Chronic kidney disease-mineral and bone disorder Current Visit: Yes Status: Acute Assessment and plan: Sevelamer started by renal, continue same (5) Hypokalemia Current Visit: Yes Status: Resolved Assessment and plan: K 3.6 this a.m Continue to monitor (6) Hyponatremia Current Visit: Yes Status: Acute Assessment and plan: Na tody 135 (129 yesterday), renal following, management per renal (7) DVT prophylaxis Current Visit: Yes Status: Acute Assessment and plan: SCDs - Time Spent With Patient Total time spent is greater than 50% in coordination of care (as documented) at patient's floor/unit and/or counseling patient: - Subjective Interval history: Seen and examined at the bedside Patient with biopsy proven calciphylaxis, being comanaged with nephrology skin biopsy from 01/08 is pending She has no new complains Discussed with Dr. Luong this a.m, plan is to resume HD and administer thiosulphate 3ice weekly during HD We need to await skin biospy report prior to this The patient denies nw complains Abdominal skin lesions are foul-smelling this a.m Wound care will be reconsulted and patient will be started on empiric antibiotics - Constitutional Vitals: Temp Pulse Resp BP Pulse Ox 99.3 F 82 22 98/64 90 01/10/18 11:17 01/10/18 11:17 01/10/18 11:17 01/10/18 11:17 01/10/18 11:17 General appearance: Present: A&O X 3, morbidly obese, pleasant, no acute distress - Head Head exam: Present: atraumatic, normocephalic - Eye Eye exam: Present: PERRL, conjuntiva pink, sclera anicteric Pupils: Present: PERRL - Neck Neck exam general surgery: Present: supple, trachea midline. Absent: lymphadenopathy - Respiratory Respiratory exam: Present: CTAB. Absent: accessory muscle use, rales, rhonchi, wheezes - Cardiovascular Cardiovascular exam: Present: RRR, +S1, +S2. Absent: diastolic murmur, gallop, rubs, systolic murmur - GI/Abdominal GI/Abdominal exam: Present: normal bowel sounds, soft, no peritoneal signs. Absent: distended, tenderness Additional comments: abdominal wall, including upper R thigh ith extensive skin lesions with necrotic centers, foul-smelling today. And extremely tender - Extremities Exam Extremities exam: Present: warm, radial pulses palpable and symmetrical. Absent : calf tenderness, cyanotic, pedal edema - Neurological Exam Neurological exam: Present: alert, CN II-XII intact, oriented X3, no focal deficits. Absent: pronater drift, facial droop, speech deficit - Skin Skin exam: Present: dry, intact Internal Medicine: Result - Labs CBC & Chem 7: 01/10/18 04:07 01/10/18 04:07 Labs: Short CBC 01/10/18 Range/Units 04:07 WBC 22.3 H (4.3-11.1) K/mcL Hgb 8.2 L (11.5-15.4) g/dL Hct 24.3 L (35.3-44.9) % Plt Count 226 (140-400) K/mcL Neutrophils # 18.5 H (1.6-8.9) K/mcL BMP 01/10/18 04:07 Sodium 135 L Potassium 3.6 Chloride 88 L Carbon Dioxide 14 L BUN 69 H Creatinine 11.21 H Glucose 88 Calcium 6.9 L - ABG Interpretation ABG results: PT/INR, D-dimer PT 37.8 Seconds (9.4-12.1) H 01/06/18 18:09 - VTE Reasons for not Prescribing Prophylaxis: Medical contraindication Consult Discharge Plan - Plan Referrals: Peter Vicente DO [Primary Care Provider] - 01/24/18 10:00 am (Please follow up as schedule...with Dr. Yang)
--- NOTE | 2018-01-10 13:47 | Nephrology Progress Note ---
Date of Encounter: 01/10/18 Time of Encounter: 13:20 - Assessment and Plan (1) ESRD (end stage renal disease) Current Visit: Yes Status: Chronic Derm consulted for bx abdominal lesions with history calciphylaxis, Bx pending. PD cycler at night. Orders given. Subjective Interval history: Laying in bed, watching tv. States abdominal lesions painful. Discussed with patient if Bx calciphylaxis will need to be on HD for 3 months to obtain Sodium Thiosulfate. Patient in agreement. Has functioning left brachiocephalic AVF, + bruit/thrill. Objective - Vital Signs Vital signs: Vital Signs Temp Pulse Resp BP Pulse Ox 01/10/18 11:17 99.3 F 82 22 98/64 90 01/10/18 08:15 98.7 F 16 109/72 01/10/18 08:02 98.7 F 80 16 109/72 92 01/10/18 04:08 100.0 F H 86 17 96/59 90 01/10/18 00:17 99.5 F 82 18 109/57 91 01/09/18 21:55 98.9 F 18 130/74 01/09/18 20:07 18 91 01/09/18 19:33 98.5 F 73 17 104/67 92 01/09/18 15:43 98.1 F 73 18 118/76 94 Intake and Output 01/09/18 01/10/18 01/10/18 23:59 07:59 15:59 Intake Total 510 / 510 270 / 270 Output Total 0 / 0 0 / 0 Balance 510 / 510 270 / 270 Intake: Oral 510 / 510 270 / 270 Output: Urine 0 / 0 0 / 0 Other: Meal Dinner Breakfast Percent of Meal Consumed 0% 20% Weight 98.2 kg 99.4 kg Patient Weight 01/10/18 23:59 Weight 99.4 kg - General Appearance General appearance: Present: well-developed, well-nourished, appears started age , obese EENT: Present: mucous membranes moist Neck: Present: no JVD Respiratory: Present: clear Cardiology: Present: no edema, regular rate, regular rhythm Dialysis Vascular Access: Arteriovenous Fistula thrill: Yes bruit: Yes Additional Comments: left brachiocephalic Gastrointestinal: Present: normoactive bowel sounds Additional Comments: PD cath Integumentary: Present: warm and dry Neurologic: Present: alert and oriented x3 - Lab 01/10/18 04:07 01/10/18 04:07 Most recent lab results Calcium 6.9 mg/dL (8.6-10.3) L 01/10/18 04:07 Phosphorus 3.9 mg/dL (2.7-4.5) 01/10/18 04:07 Magnesium 2.0 mg/dL (1.6-2.6) 01/10/18 04:07 - VTE Reasons for not Prescribing Prophylaxis: Medical contraindication Consult Discharge Plan - Plan Referrals: Peter Vicente DO [Primary Care Provider] - 01/24/18 10:00 am (Please follow up as schedule...with Dr. Yang)
[2018-01-10] MEDS: Ampicillin/Sulbactam 3,000 MG in 0.9 % Sodium Chloride Mini Bag 100 ML IVPB SCH (14:52)
[2018-01-10] MEDS ORDERED: Perit. Dialysis with Dex 1.5 % 12,000 ML PERITONEAL ONE (15:00)
[2018-01-10] MEDS: Acetaminophen 325 MG TABLET PO PRN (17:05)
[2018-01-10] MEDS ORDERED: Ampicillin/Sulbactam 1,500 MG in 0.9 % Sodium Chloride Mini Bag 100 ML IVPB SCH (18:00)
[2018-01-11] MEDS: *HR* HYDROcodone/Acet 10/325 mg TABLET PO PRN ×4 (02:23→20:34)
[2018-01-11 05:16] LABS: Basophils % 0.2 %; Eosinophils % 0.2 %; Lymphocytes % 4.1 %; Mean Platelet Volume 10.6 fL (9.4-12.4); Nucleated Red Blood Cells 0.1 /100 WBC (0); Red Cell Distribution Width 19.4 % (11.5-14.5)
[2018-01-11 05:18] LABS: Basophils # 0.1 K/mcL (0.0-0.2); Eosinophils # 0.1 K/mcL (0.0-0.6); Hematocrit 25.4 % (35.3-44.9); Hemoglobin 8.6 g/dL (11.5-15.4); Immature Granulocytes % 2.3 % (0-4); Lymphocytes # 1.2 K/mcL (0.6-4.6); Mean Corpuscular HGB Conc 33.9 g/dL (31.6-35.5); Mean Corpuscular Hemoglobin 33.2 pg (28.0-33.3); Mean Corpuscular Volume 98.1 fL (83.0-100.0); Monocytes # 1.8 K/mcL (0.0-1.3); Monocytes % 6.1 %; Platelet Count 223 K/mcL (140-400); Red Blood Count 2.59 M/mcL (3.82-4.97); Segmented Neutrophils % 87.1 %
[2018-01-11 05:39] LABS: Calcium 6.9 mg/dL (8.6-10.3); Potassium 3.7 mEq/L (3.5-5.1)
[2018-01-11 05:41] LABS: Anisocytosis 1+ (Not Present); Toxic Granulation Present (Not Present)
[2018-01-11] MEDS: Ampicillin/Sulbactam 3,000 MG in 0.9 % Sodium Chloride Mini Bag 100 ML IVPB SCH (06:10)
[2018-01-11] MEDS: Budesonide/Formoterol 160/4.5 MDI IH SCH ×2 (07:48→20:25)
[2018-01-11] MEDS: Perit. Dialysis with Dex 1.5 % 12,000 ML PERITONEAL SCH (10:20)
--- NOTE | 2018-01-11 10:32 | Nephrology Progress Note ---
Date of Encounter: 01/11/18 Time of Encounter: 10:10 - Assessment and Plan (1) ESRD (end stage renal disease) Current Visit: Yes Status: Chronic Derm consulted for bx abdominal lesions with history calciphylaxis, Bx pending. PD cycler at night. Orders given. Subjective Interval history: Laying in bed, watching tv. States abdominal lesions less painful today. Discussed with patient if Bx calciphylaxis will need to be on HD for 3 months to obtain Sodium Thiosulfate. Patient in agreement. Has functioning left brachiocephalic AVF, + bruit/thrill. Objective - Vital Signs Vital signs: Vital Signs Temp Pulse Resp BP Pulse Ox 01/11/18 07:48 16 90 01/11/18 07:45 98.3 F 17 100/65 01/11/18 07:04 98.6 F 68 16 93/60 91 01/11/18 03:46 98.0 F 73 17 100/57 95 01/11/18 00:00 97.9 F 67 17 111/76 93 01/10/18 20:54 97.9 F 18 102/65 01/10/18 20:26 97.9 F 67 18 102/63 94 01/10/18 20:06 20 92 01/10/18 15:39 99.5 F 71 22 89/55 90 01/10/18 11:17 99.3 F 82 22 98/64 90 01/10/18 10:52 18 90 Intake and Output 01/10/18 01/11/18 01/11/18 23:59 07:59 15:59 Intake Total 250 / 250 100 / 100 Balance 250 / 250 100 / 100 Intake: IV Fluids 100 / 100 100 / 100 Unasyn 3,000 MG In 0.9 % Sodium 100 / 100 100 / 100 Chloride (Mini-Bag +) 100 ML @ 200 mls/hr IVPB DAILY@0630 [facility] Rx#:[id number] Oral 150 / 150 Other: Percent of Meal Consumed 0% Weight 87.2 kg - General Appearance General appearance: Present: well-developed, well-nourished, appears started age EENT: Present: mucous membranes moist Neck: Present: no JVD Respiratory: Present: clear Cardiology: Present: no edema, regular rate, regular rhythm Dialysis Vascular Access: Arteriovenous Fistula thrill: Yes bruit: Yes Additional Comments: PD catheter Gastrointestinal: Present: normoactive bowel sounds, tenderness Integumentary: Present: warm and dry Neurologic: Present: alert and oriented x3 - Lab 01/11/18 04:56 01/11/18 04:56 Most recent lab results Calcium 6.9 mg/dL (8.6-10.3) L 01/11/18 04:56 Phosphorus 3.9 mg/dL (2.7-4.5) 01/10/18 04:07 Magnesium 2.0 mg/dL (1.6-2.6) 01/10/18 04:07 - VTE Reasons for not Prescribing Prophylaxis: Medical contraindication Consult Discharge Plan - Plan Referrals: Peter Vicente DO [Primary Care Provider] - 01/24/18 10:00 am (Please follow up as schedule...with Dr. Yang)
[2018-01-11] MEDS: predniSONE 10 MG TABLET PO SCH (10:42)
[2018-01-11] MEDS: *HR* Amiodarone 200 MG TABLET PO SCH (10:42)
[2018-01-11] MEDS: Metoprolol XL (24 HR) Succ 25 MG TAB.ER.24H PO SCH (10:44)
[2018-01-11] MEDS: Sodium Thiosulfate 25 GM in EMPTY BAG 1 EACH IVPB SCH (10:44)
[2018-01-11] MEDS: amLODIPine 5 MG TABLET PO SCH (10:45)
[2018-01-11] MEDS: cloNIDine HCl 0.1 MG TABLET PO SCH ×2 (10:45→20:34)
[2018-01-11] MEDS: hydrALAZINE 25 MG TABLET PO SCH ×2 (10:45→20:33)
--- NOTE | 2018-01-11 10:46 | Internal Med Progress Note ---
Date of Encounter: 01/11/18 Time of Encounter: 10:45 - Assessment and plan (1) Calciphylaxis Current Visit: Yes Status: Ruled-out Assessment and plan: Ruled out Skin bipsy noted for vasculopathy/vasculitis from coumadin skin necrosis ve sepsis Patient has no evidence of sepsis she was started on antibiotics 01/08 for her numerous skin lesions She is afebrile and blood culture on admission is negative till date She was on Coumadin at home but hasnt been receiving it since admission She is on Coumadin for Afib We will consider changing to eliquis (2) Coumarin-induced necrosis Current Visit: Yes Status: Acute Assessment and plan: as above Continue wound dressing Coumadin has been held since admission Check protein C Patient also allergic to Heparin products (3) ESRD (end stage renal disease) Current Visit: Yes Status: Chronic Assessment and plan: on PD, continue same (4) Anemia in chronic kidney disease (CKD) Current Visit: Yes Status: Chronic Assessment and plan: chronic, stable Qualifiers: Chronic kidney disease stage: on chronic dialysis Qualified Code(s): N18.6 - End stage renal disease; D63.1 - Anemia in chronic kidney disease; Z99.2 - Dependence on renal dialysis (5) Chronic kidney disease-mineral and bone disorder Current Visit: Yes Status: Acute Assessment and plan: Sevelamer started by renal, continue same (6) Hypokalemia Current Visit: Yes Status: Resolved Assessment and plan: K 3.7 this a.m Continue to monitor (7) Hyponatremia Current Visit: Yes Status: Acute Assessment and plan: Na tnow WNL, continue to monitor (8) DVT prophylaxis Current Visit: Yes Status: Acute Assessment and plan: SCDs - Time Spent With Patient Total time spent is greater than 50% in coordination of care (as documented) at patient's floor/unit and/or counseling patient: - Subjective Interval history: Seen and examined at the bedside Patient with biopsy proven calciphylaxis in 2017, being co-managed with nephrology She has no new complains on evaluation today Skin biopsy report noted- "In the planes of sectioning examined, there is no evidence of calciphylaxis and results of Von Kossa special stain for calcium deposition will be reported as an addendum. The histologic differential may include vasculopathy and vasculitis from coumadin necrosis or sepsis. 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 Absent: lymphadenopathy - Respiratory Respiratory exam: Present: CTAB. Absent: accessory muscle use, rales, rhonchi, wheezes - Cardiovascular Cardiovascular exam: Present: RRR, +S1, +S2. Absent: diastolic murmur, gallop, rubs, systolic murmur - GI/Abdominal GI/Abdominal exam: Present: normal bowel sounds, soft, no peritoneal signs. Absent: distended, tenderness Additional comments: abdominal wall, including upper R thigh ith extensive skin lesions with necrotic centers, wound dressing clean - Extremities Exam Extremities exam: Present: warm, radial pulses palpable and symmetrical. Absent : calf tenderness, cyanotic, pedal edema - Neurological Exam Neurological exam: Present: alert, CN II-XII intact, oriented X3, no focal deficits. Absent: pronater drift, facial droop, speech deficit - Skin Skin exam: Present: dry, intact Internal Medicine: Result - Labs CBC & Chem 7: 01/11/18 04:56 01/11/18 04:56 Labs: Short CBC 01/11/18 Range/Units 04:56 WBC 29.9 H (4.3-11.1) K/mcL Hgb 8.6 L (11.5-15.4) g/dL Hct 25.4 L (35.3-44.9) % Plt Count 223 (140-400) K/mcL Neutrophils # 26.0 H (1.6-8.9) K/mcL BMP 01/11/18 04:56 Sodium 133 L Potassium 3.7 Chloride 87 L Carbon Dioxide 16 L BUN 66 H Creatinine 10.19 H Glucose 104 Calcium 6.9 L - ABG Interpretation ABG results: PT/INR, D-dimer PT 37.8 Seconds (9.4-12.1) H 01/06/18 18:09 - VTE Reasons for not Prescribing Prophylaxis: Medical contraindication Consult Discharge Plan - Plan Referrals: Peter Vicente DO [Primary Care Provider] - 01/24/18 10:00 am (Please follow up as schedule...with Dr. Yang)
[2018-01-11] MEDS: Acetaminophen 325 MG TABLET PO PRN ×2 (10:52→23:27)
[2018-01-11] MEDS: Ondansetron 4 MG/2 ML VIAL IVP PRN ×2 (12:20→20:33)
[2018-01-11] MEDS ORDERED: Perit. Dialysis with Dex 1.5 % 12,000 ML PERITONEAL ONE (19:00)
[2018-01-12] MEDS: Ondansetron 4 MG/2 ML VIAL IVP PRN ×2 (04:52→20:19)
[2018-01-12] MEDS: *HR* HYDROcodone/Acet 10/325 mg TABLET PO PRN ×3 (04:52→17:14)
[2018-01-12 05:09] LABS: Eosinophils % 0.2 %
[2018-01-12 05:10] LABS: Basophils % 0.1 %; Eosinophils # 0.1 K/mcL (0.0-0.6); Hematocrit 24.9 % (35.3-44.9); Hemoglobin 8.4 g/dL (11.5-15.4); Immature Granulocytes % 2.5 % (0-4); Lymphocytes # 1.1 K/mcL (0.6-4.6); Lymphocytes % 3.5 %; Mean Corpuscular HGB Conc 33.7 g/dL (31.6-35.5); Mean Corpuscular Volume 100.8 fL (83.0-100.0); Mean Platelet Volume 10.8 fL (9.4-12.4); Monocytes % 6.1 %; Platelet Count 219 K/mcL (140-400); Red Blood Count 2.47 M/mcL (3.82-4.97); Red Cell Distribution Width 19.5 % (11.5-14.5); Segmented Neutrophils % 87.6 %
[2018-01-12 05:13] LABS: Neutrophils # 28.5 K/mcL (1.6-8.9)
[2018-01-12 05:26] LABS: Calcium 6.9 mg/dL (8.6-10.3); Potassium 3.9 mEq/L (3.5-5.1)
[2018-01-12 06:03] LABS: Anisocytosis 1+ (Not Present); Platelet Estimate Normal (Normal); Toxic Granulation Present (Not Present); Toxic Vacuolation Present (Not Present)
[2018-01-12] MEDS: Ampicillin/Sulbactam 3,000 MG in 0.9 % Sodium Chloride Mini Bag 100 ML IVPB SCH (06:54)
[2018-01-12] MEDS: Perit. Dialysis with Dex 1.5 % 12,000 ML PERITONEAL SCH (07:31)
--- NOTE | 2018-01-12 08:41 | Nephrology Progress Note ---
Date of Encounter: 01/12/18 Time of Encounter: 08:25 - Assessment and Plan (1) ESRD (end stage renal disease) Current Visit: Yes Status: Chronic Derm consulted for bx abdominal lesions with history calciphylaxis, Bx pending. PD cycler at night. Orders given. Subjective Interval history: Laying in bed, watching tv. States abdominal lesions less painful today. Discussed with patient if Bx calciphylaxis will need to be on HD for 3 months to obtain Sodium Thiosulfate. Patient in agreement. Has functioning left brachiocephalic AVF, + bruit/thrill. Objective - Vital Signs Vital signs: Vital Signs Temp Pulse Resp BP Pulse Ox 01/12/18 08:12 97.9 F 71 18 102/63 93 01/12/18 04:09 98.2 F 72 16 109/62 96 01/11/18 23:56 98.4 F 70 16 111/69 93 01/11/18 21:25 98.6 F 19 104/67 01/11/18 20:30 30 91 01/11/18 18:41 98.1 F 69 16 107/72 92 01/11/18 15:32 98.2 F 66 17 97/62 93 01/11/18 11:15 98 F 69 16 91/52 90 Intake and Output 01/11/18 01/12/18 01/12/18 23:59 07:59 15:59 Other: Weight 86 kg Patient Weight 01/12/18 23:59 Weight 86 kg - General Appearance General appearance: Present: well-developed, well-nourished, appears started age , obese EENT: Present: mucous membranes moist Neck: Present: no JVD Respiratory: Present: clear Cardiology: Present: no edema Dialysis Vascular Access: Arteriovenous Fistula thrill: Yes bruit: Yes Additional Comments: PD cath Gastrointestinal: Present: normoactive bowel sounds, no tenderness Integumentary: Present: warm and dry Neurologic: Present: alert and oriented x3 - Lab 01/12/18 04:40 01/12/18 04:40 Most recent lab results Calcium 6.9 mg/dL (8.6-10.3) L 01/12/18 04:40 Phosphorus 3.9 mg/dL (2.7-4.5) 01/10/18 04:07 Magnesium 2.0 mg/dL (1.6-2.6) 01/10/18 04:07 - VTE Reasons for not Prescribing Prophylaxis: Medical contraindication Consult Discharge Plan - Plan Referrals: Peter Vicente DO [Primary Care Provider] - 01/24/18 10:00 am (Please follow up as schedule...with Dr. Yang)
[2018-01-12] MEDS ORDERED: Vancomycin 1 EACH in 0.9 % Sodium Chloride 250 ML IVPB SCH (09:00)
[2018-01-12] MEDS: cloNIDine HCl 0.1 MG TABLET PO SCH ×2 (09:51→20:19)
[2018-01-12] MEDS: amLODIPine 5 MG TABLET PO SCH (09:52)
[2018-01-12] MEDS: hydrALAZINE 25 MG TABLET PO SCH ×2 (09:52→20:19)
[2018-01-12] MEDS: Metoprolol XL (24 HR) Succ 25 MG TAB.ER.24H PO SCH (09:53)
--- NOTE | 2018-01-12 09:56 | Oncology Inp Consult Note ---
<Roma Walker - Last Filed: 01/12/18 13:24> Date of Encounter: 01/12/18 Time of Encounter: 10:01 Assessment and Plan (1) Rash Status: Acute Assessment and plan: S/P punch biopsy of abdomen-path detailed in HPI- at first glance pathology is not consistent with calciphylaxis, histologic differential may include vasculopathy and vasculitis from coumadin necrosis or sepsis. Clinical presentation and pathology report is not consistent with coumadin induced skin necrosis. This is further evidenced by the fact that the patient has been on coumadin for a number of years. Protein C is pending, reduced levels of protein C may develop in certain instances but patient does not appear to have any known precipitating risk factors at this time (i.e. DIC, severe liver disease, infection, malignancy, etc.) Her presentation and clinical data is also not consistent with any other thrombotic microangiopathy Pathology relates concern for vasculitis, nephrology/dermatology feel as though presentation more consistent with calciphylaxis. Of note, she also reports subjective relief in her symptoms since receiving two doses of sodium thiosulfate, further assisting to help confirm correct treatment for presumed diagnosis. 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 Dermatology is planning to re-biopsy next week. (2) Anemia Status: Acute Assessment and plan: Chronic anemia secondary to anemia of chronic disease,however, hgb was 6.4 on admission which is an acute decrease from patients baseline which is concerning for history of GI loss. She denies any recent s/s of bleeding prior to admission or since admission. She has received 2 units PRBC with stabilization of her hgb. Etiology of acute on chronic anemia unclear, would recommend GI consultation for potential endoscopy when stable. If hgb remains stable and she has no s/s bleeding or preferably if endoscopy may be performed to rule out acute GI loss during her admission, would recommend she resume coumadin for her A-fib at this time. As noted above, her necrotic appearing skin lesions do not appear consistent with coumadin induced skin necrosis. She is not a candidate for DOACs secondary to her ESRD Please refer to Dr. Mcknight's attestation below for additional details. Qualifiers: Qualified Code(s): D64.9 - Anemia, unspecified - Data of Consult Patient: new to practice Consult date: 01/12/18 Requesting Physician: Parviz Sanchez MD Primary Care Provider: Peter Vicente DO - Consult Narrative Reason for consult: Assessment for warfarin induced skin necrosis History of present illness: Ms. Alexis is a 42 year old female with past medical history significant for ESRD on HD MWF and A-fib on coumadin. She presented to [facility] with skin lesions that have progressed over the past month and now associated with pain. She was anemic (hgb 6.4) on presentation and INR of 3.4. 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 A punch biopsy was obtained. Treatment with sodium thiosulfate was initiated. Protein C obtained, pending. Punch biopsy of abdominal skin reveals "Necrosis of the skin with superficial and deep vasculopathy and neutrophilic vasculitis involving small and medium- sized vascular channels. Comment: In the planes of sectioning examined, there is no evidence of calciphylaxis and results of Von Kossa special stain for calcium deposition will be reported as an addendum. The histologic differential may include vasculopathy and vasculitis from coumadin necrosis or sepsis. Clinico-pathologic correlation is required." Renal has requested to continue sodium thiosulfate at this time and patient is planned for re-biopsy as an outpatient on January 18. 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 Hematology consulted for assessment of potential coumadin induced skin necrosis Past Med Surg Social Fam HX - Past Medical History Medical history: asthma, atrial fibrillation, diabetes, GI bleed, hyperlipidemia , hypertension, renal disease, thyroid disease Additional medical history: ANEMIA, BLEEDING ULCER,. KIDNEY DIALYSIS Psychiatric history: no psych history - Past Surgical History Surgical History: appendectomy, cholecystectomy, thyroidectomy, other Additional surgical history: KIDNEY TRANSPLANT 2007, TUBAL LIGATION, shunt danya - Social History Smoking Status: Never smoker Smokeless Tobacco Status: No Alcohol use: none Drug use: none Medications and Allergies Albuterol Sulfate [Albuterol Inhaler] 2 puff IH Q4H PRN 09/09/16 [History] Amiodarone [Cordarone] 200 mg PO DAILY 09/09/16 [History] Atorvastatin [Lipitor] 40 mg PO HS 09/09/16 [History] Budesonide/Formoterol 160/4.5 [Symbicort 160/4.5] 2 puff IH BIDR 09/09/16 [ History] Ipratropium/Albuterol Neb [Duoneb] 3 ml IH QID PRN 09/09/16 [History] Levothyroxine Sodium [Synthroid] 200 mcg PO QAM 09/09/16 [History] Omeprazole [PriLOSEC] 20 mg PO DAILY 09/09/16 [History] cloNIDine HCl [Clonidine HCl] 0.1 mg PO TID 09/09/16 [History] hydrALAZINE [HydrALAZINE] 50 mg PO BID 09/09/16 [History] predniSONE [PredniSONE] 10 mg PO DAILY 09/09/16 [History] Acetaminophen [Acetaminophen ER] 650 mg PO Q4H PRN 12/23/16 [History] Diphenoxylate/Atropine [Lomotil 2.5 mg/0.025 mg] 1 each PO Q4H PRN 12/23/16 [ History] Montelukast [Singulair] 10 mg PO DAILY 02/16/17 [History] Amlodipine Besylate 5 mg PO BID 01/07/18 [History] Folic Acid 1 mg PO DAILY 01/07/18 [History] Metoprolol Succinate [Toprol Xl] 25 mg PO DAILY 01/07/18 [History] Potassium Chloride 20 meq PO DAILY 01/07/18 [History] Apixaban [Eliquis] 5 mg PO BID #60 tablet 01/18/18 [Rx] Gentamicin in NaCl, Iso-Osm [Gentamicin 80 mg/Ns 100 ml Pb] 80 mg IV LEEANNA #8 piggyback 01/19/18 [Rx] HYDROcodone/Acet 10/325 mg [[place] 10-325 mg] 1 each PO Q8H PRN 5 Days #15 tablet 01/19/18 [Rx] 3 Allergy/AdvReac Type Severity Reaction Status Date / Time heparin Allergy See Verified 01/07/18 13:14 Comments Constitutional: Absent: anorexia, chills, fatigue, fever(s), weakness, weight loss Eyes: Absent: change in vision Nose, mouth and throat: Absent: dysphagia Cardiovascular: Absent: chest pain Respiratory: Absent: cough, dyspnea Gastrointestinal: Absent: change in bowel habits, hematemesis, hematochezia, melena, nausea, vomiting Genitourinary: Absent: dysuria Additional comments: ARF 2004, s/p renal transplant 2007, failure of transplant about one year ago, started PD in August 2017 Integumentary: Present: as per HPI Additional comments: black/purple necrotic appearing lesions scattered to abdomen and upper thighs- appeared about one month ago with progression in pain over this time Neurological: Absent: focal weakness, frequent falls Hematologic/Lymphatic: Present: as per HPI Oncology - Exam - Constitutional Vitals: Temp Pulse Resp BP Pulse Ox 97.9 F 71 18 102/63 93 01/12/18 08:12 01/12/18 08:12 01/12/18 08:12 01/12/18 08:12 01/12/18 08:12 General appearance: cooperative, morbidly obese, no acute distress, no febrile - Head Head exam: Present: atraumatic - ENT ENT exam: Present: mucous membranes moist - Respiratory Respiratory exam: Present: CTAB. Absent: respiratory distress - Cardiovascular Cardiovascular exam: Present: RRR, +S1, +S2 - GI/Abdominal GI/Abdominal exam: Present: normal bowel sounds, soft, tenderness - Extremities Exam Extremities exam: Absent: calf tenderness - Neurological Exam Neurological exam: Present: alert, oriented X3, no focal deficits, strengths equal and symetr throughout - Psychiatric Psychiatric exam: Present: normal affect, normal mood - Skin Skin exam: Present: dry, intact, normal color, warm Additional comments: black/purple necrotic appearing lesions scattered to abdomen and upper thighs Oncology - Results Labs: 3 01/12/18 01/12/18 01/11/18 04:40 04:40 04:56 WBC 32.5 H* RBC 2.47 L Hgb 8.4 L Hct 24.9 L MCV 100.8 H MCH 34.0 H MCHC 33.7 RDW 19.5 H Plt Count 219 MPV 10.8 Immature Gran % 2.5 Seg Neutrophils % 87.6 Band Neutrophils % Lymphocytes % 3.5 Monocytes % 6.1 Eosinophils % 0.2 Basophils % 0.1 Neutrophils # 28.5 H Lymphocytes # 1.1 Monocytes # 2.0 H Eosinophils # 0.1 Basophils # 0.0 Nucleated RBCs/100 WBC Toxic Granulation Present A Toxic Vacuolation Present A Platelet Estimate Normal Anisocytosis 1+ A Sodium 138 133 L Potassium 3.9 3.7 Chloride 85 L 87 L Carbon Dioxide 14 L 16 L BUN 66 H 66 H Creatinine 10.61 H 10.19 H Est GFR ( Amer) 5 L 5 L Est GFR (Non-Af Amer) 4 L 4 L BUN/Creatinine Ratio 6 6 Glucose 114 H 104 Calculated Osmolality 306 H 295 Calcium 6.9 L 6.9 L Phosphorus Magnesium Total Bilirubin AST ALT Alkaline Phosphatase Serum Total Protein Albumin Globulin Albumin/Globulin Ratio Hep Bs Antigen Hep Bs Antibody 3 01/11/18 01/10/18 01/10/18 04:56 04:07 04:07 WBC 29.9 H RBC 2.59 L Hgb 8.6 L Hct 25.4 L MCV 98.1 MCH 33.2 MCHC 33.9 RDW 19.4 H Plt Count 223 MPV 10.6 Immature Gran % 2.3 Seg Neutrophils % 87.1 Band Neutrophils % Lymphocytes % 4.1 Monocytes % 6.1 Eosinophils % 0.2 Basophils % 0.2 Neutrophils # 26.0 H Lymphocytes # 1.2 Monocytes # 1.8 H Eosinophils # 0.1 Basophils # 0.1 Nucleated RBCs/100 WBC 0.1 H Toxic Granulation Present A Toxic Vacuolation Platelet Estimate Anisocytosis 1+ A Sodium 135 L Potassium 3.6 Chloride 88 L Carbon Dioxide 14 L BUN 69 H Creatinine 11.21 H Est GFR ( Amer) 5 L Est GFR (Non-Af Amer) 4 L BUN/Creatinine Ratio 6 Glucose 88 Calculated Osmolality 300 Calcium 6.9 L Phosphorus 3.9 Magnesium 2.0 Total Bilirubin AST ALT Alkaline Phosphatase Serum Total Protein Albumin Globulin Albumin/Globulin Ratio Hep Bs Antigen Hep Bs Antibody 3 01/10/18 01/08/18 01/08/18 04:07 06:10 06:10 WBC 22.3 H 29.1 H RBC 2.53 L 2.41 L Hgb 8.2 L 7.9 L D Hct 24.3 L 23.4 L MCV 96.0 97.1 D MCH 32.4 32.8 MCHC 33.7 33.8 RDW 19.5 H 18.3 H Plt Count 226 208 MPV 10.6 10.5 Immature Gran % 4.1 H Seg Neutrophils % 83.1 84.0 Band Neutrophils % 2.0 Lymphocytes % 5.3 6.0 Monocytes % 6.6 8.0 Eosinophils % 0.8 Basophils % 0.1 Neutrophils # 18.5 H 25.0 H Lymphocytes # 1.2 1.8 Monocytes # 1.5 H 2.3 H Eosinophils # 0.2 Basophils # 0.0 Nucleated RBCs/100 WBC 0.2 H Toxic Granulation Toxic Vacuolation Platelet Estimate Normal Anisocytosis Sodium 129 L Potassium 3.5 Chloride 89 L Carbon Dioxide 21 L BUN 61 H Creatinine 10.45 H Est GFR ( Amer) 5 L Est GFR (Non-Af Amer) 4 L BUN/Creatinine Ratio 6 Glucose 123 H Calculated Osmolality 287 Calcium 7.2 L Phosphorus Magnesium 2.4 Total Bilirubin 0.3 AST 10 L ALT 13 Alkaline Phosphatase 155 H Serum Total Protein 6.7 Albumin 2.4 L Globulin 4.3 H Albumin/Globulin Ratio 0.6 L Hep Bs Antigen Hep Bs Antibody 3 01/07/18 19:01 WBC RBC Hgb Hct MCV MCH MCHC RDW Plt Count MPV Immature Gran % Seg Neutrophils % Band Neutrophils % Lymphocytes % Monocytes % Eosinophils % Basophils % Neutrophils # Lymphocytes # Monocytes # Eosinophils # Basophils # Nucleated RBCs/100 WBC Toxic Granulation Toxic Vacuolation Platelet Estimate Anisocytosis Sodium Potassium Chloride Carbon Dioxide BUN Creatinine Est GFR ( Amer) Est GFR (Non-Af Amer) BUN/Creatinine Ratio Glucose Calculated Osmolality Calcium Phosphorus Magnesium Total Bilirubin AST ALT Alkaline Phosphatase Serum Total Protein Albumin Globulin Albumin/Globulin Ratio Hep Bs Antigen Nonreactive Hep Bs Antibody 0.98 Consult Discharge Plan - Plan Instructions: Hydrocodone/Acetaminophen (By mouth), Gentamicin/Sodium Chloride Premix (Injection), Apixaban (By mouth), Hemodialysis (DC) Referrals: Antonio Rodriguez MD [Partnered Physician] - 02/07/18 9:00 am (Please follow up as schedule...) Roma Salgado MD [Partnered Physician] - 01/22/18 12:40 pm Peter Vicente DO [Primary Care Provider] - 01/24/18 10:00 am (Please follow up as schedule...with Dr. Yang) Prescriptions: Apixaban [Eliquis] 5 mg PO BID #60 tablet Gentamicin in NaCl, Iso-Osm [Gentamicin 80 mg/Ns 100 ml Pb] 80 mg IV LEEANNA #8 piggyback HYDROcodone/Acet 10/325 mg [[place] 10-325 mg] 1 each PO Q8H PRN 5 Days #15 tablet PRN Reason: Severe Pain <Edgar Mcknight - Last Filed: 01/23/18 09:46> Date of Encounter: 01/12/18 - Data of Consult Requesting Physician: Kayden Murrieta Primary Care Provider: Peter Vicente DO - Consult Narrative History of present illness: Ms. Alexis is a 43 year old female Oncology - Exam - Constitutional Vitals: Temp Pulse Resp BP Pulse Ox 98.6 F 79 17 111/64 95 01/19/18 16:11 01/19/18 16:11 01/19/18 16:11 01/19/18 16:11 01/19/18 16:11 Oncology - Results Labs: 3 01/19/18 01/19/18 01/19/18 07:49 03:30 03:30 WBC RBC Hgb Hct MCV MCH MCHC RDW Plt Count MPV Immature Gran % Seg Neutrophils % Lymphocytes % Monocytes % Eosinophils % Basophils % Neutrophils # Lymphocytes # Monocytes # Eosinophils # Basophils # Nucleated RBCs/100 WBC PT INR Sodium 141 Potassium 3.9 Chloride 89 L Carbon Dioxide 16 L BUN 57 H Creatinine 8.11 H Est GFR ( Amer) 7 L Est GFR (Non-Af Amer) 5 L BUN/Creatinine Ratio 7 Glucose 137 H POC Glucose 123 H Calculated Osmolality 310 H Calcium 6.9 L Magnesium 2.2 Random Gentamicin 6.3 Random Vancomycin 3 01/18/18 01/18/18 01/18/18 20:10 16:34 13:08 WBC RBC Hgb Hct MCV MCH MCHC RDW Plt Count MPV Immature Gran % Seg Neutrophils % Lymphocytes % Monocytes % Eosinophils % Basophils % Neutrophils # Lymphocytes # Monocytes # Eosinophils # Basophils # Nucleated RBCs/100 WBC PT INR Sodium Potassium Chloride Carbon Dioxide BUN Creatinine Est GFR ( Amer) Est GFR (Non-Af Amer) BUN/Creatinine Ratio Glucose POC Glucose 260 H 205 H 161 H Calculated Osmolality Calcium Magnesium Random Gentamicin Random Vancomycin 3 01/18/18 01/18/18 01/17/18 08:45 08:45 20:15 WBC 22.8 H RBC 2.63 L Hgb 8.5 L Hct 25.0 L MCV 95.1 MCH 32.3 MCHC 34.0 RDW 18.9 H Plt Count 243 MPV 10.5 Immature Gran % 2.0 Seg Neutrophils % 86.2 Lymphocytes % 3.9 Monocytes % 7.8 Eosinophils % 0.0 Basophils % 0.1 Neutrophils # 19.6 H Lymphocytes # 0.9 Monocytes # 1.8 H Eosinophils # 0.0 Basophils # 0.0 Nucleated RBCs/100 WBC 0.1 H PT INR Sodium 141 Potassium 3.8 Chloride 90 L Carbon Dioxide 17 L BUN 43 H Creatinine 7.07 H Est GFR ( Amer) 8 L Est GFR (Non-Af Amer) 6 L BUN/Creatinine Ratio 6 Glucose 161 H POC Glucose 290 H Calculated Osmolality 306 H Calcium 6.9 L Magnesium Random Gentamicin Random Vancomycin 3 01/17/18 01/17/18 01/17/18 14:36 06:51 06:51 WBC 24.4 H RBC 2.64 L Hgb 8.4 L Hct 24.8 L MCV 93.9 MCH 31.8 MCHC 33.9 RDW 19.6 H Plt Count 257 MPV 10.9 Immature Gran % Seg Neutrophils % Lymphocytes % Monocytes % Eosinophils % Basophils % Neutrophils # Lymphocytes # Monocytes # Eosinophils # Basophils # Nucleated RBCs/100 WBC PT INR Sodium 138 Potassium 4.3 Chloride 89 L Carbon Dioxide 15 L BUN 60 H Creatinine 8.91 H Est GFR ( Amer) 6 L Est GFR (Non-Af Amer) 5 L BUN/Creatinine Ratio 7 Glucose 80 POC Glucose 81 Calculated Osmolality 302 H Calcium 6.5 L Magnesium Random Gentamicin Random Vancomycin 3 01/17/18 01/17/18 05:30 05:30 WBC RBC Hgb Hct MCV MCH MCHC RDW Plt Count MPV Immature Gran % Seg Neutrophils % Lymphocytes % Monocytes % Eosinophils % Basophils % Neutrophils # Lymphocytes # Monocytes # Eosinophils # Basophils # Nucleated RBCs/100 WBC PT 27.5 H INR 2.4 Sodium Potassium Chloride Carbon Dioxide BUN Creatinine Est GFR ( Amer) Est GFR (Non-Af Amer) BUN/Creatinine Ratio Glucose POC Glucose Calculated Osmolality Calcium Magnesium Random Gentamicin Random Vancomycin 16 - Attending Attestation Seen and examined patient and agree with assessment and plan. Patient has mutliple black macular blotches on her body. There is a high suspicion for calciphylaxis. Given her improvement with sodium thiosulphate and the long history of warfarin use, I would agree that calciphylaxis is more likely. Her h/o and presentation are not c/w warfarin induced skin necrosis which is an acute manifestation after initiating warfarin.
[2018-01-12] MEDS: Budesonide/Formoterol 160/4.5 MDI IH SCH ×2 (10:40→19:58)
[2018-01-12] MEDS: *HR* Amiodarone 200 MG TABLET PO SCH (11:40)
[2018-01-12] MEDS: predniSONE 10 MG TABLET PO SCH (11:40)
[2018-01-12] MEDS: Piperacillin/Tazobactam 3.375 GM in 0.9 % Sodium Chloride Mini Bag 100 ML IVPB SCH ×2 (11:46→18:31)
--- NOTE | 2018-01-12 14:10 | Internal Med Progress Note ---
Date of Encounter: 01/12/18 Time of Encounter: 09:25 - Assessment and plan (1) Leukocytosis Current Visit: Yes Status: Acute Assessment and plan: Bandemia, worsening with increasing neutophilia Toxic vacoulations and granulations noted on today's CBC patient remains afebrile No tachycardia She currently has multiple abdominal wounds that are fouls smelling escalate antibiotics to vanco and zosyn sent new blood cultures today 01/12 Wound cultures requested Blood culture on admission negative Hb has been stable, it is unlikely that this leukocytosis is due to acute blood loss. PLT is WNL Will continue to monitor Follow all cultures Qualifiers: Leukocytosis type: bandemia Qualified Code(s): D72.825 - Bandemia (2) Calciphylaxis Current Visit: Yes Status: Acute Assessment and plan: Skin biopsy noted for vasculopathy/vasculitis from coumadin skin necrosis ve sepsis Patient has no evidence of sepsis she was started on antibiotics 01/08 for her numerous skin lesions She is afebrile and blood culture on admission is negative till date She was on Coumadin at home but hasn't been receiving it since admission She is on Coumadin for Afib Spoke with utility forester who recommends continued treatment for calciphylaxis till skin biopsy is repeated in one week Continue thiosulphaute 3ice weekly Consider beginning HD per recommendation Nephrology following We will consider changing to eliquis (3) Coumarin-induced necrosis Current Visit: Yes Status: Suspected Assessment and plan: suspected, patient has been on coumadin for several years Continue wound dressing Coumadin has been held since admission, due to acute anemia on presentation Protein C level ordered 01/01, result pending hematology consulted for additional recommendations Patient also allergic to Heparin products (4) ESRD (end stage renal disease) Current Visit: Yes Status: Chronic Assessment and plan: on PD, continue same (5) Anemia in chronic kidney disease (CKD) Current Visit: Yes Status: Chronic Assessment and plan: chronic, stable Qualifiers: Chronic kidney disease stage: on chronic dialysis Qualified Code(s): N18.6 - End stage renal disease; D63.1 - Anemia in chronic kidney disease; Z99.2 - Dependence on renal dialysis (6) Chronic kidney disease-mineral and bone disorder Current Visit: Yes Status: Acute Assessment and plan: Sevelamer started by renal, continue same (7) Hypokalemia Current Visit: Yes Status: Resolved Assessment and plan: K 3.9 this a.m Continue to monitor (8) Hyponatremia Current Visit: Yes Status: Acute Assessment and plan: Na tnow WNL, continue to monitor (9) DVT prophylaxis Current Visit: Yes Status: Acute Assessment and plan: SCDs - Time Spent With Patient Total time spent is greater than 50% in coordination of care (as documented) at patient's floor/unit and/or counseling patient: - Subjective Interval history: Seen and examined at the bedside Patient with biopsy proven calciphylaxis in 2017, being co-managed with nephrology She has no new complains on evaluation today Skin biopsy report 01/11 noted- "In the planes of sectioning examined, there is no evidence of calciphylaxis and results of Von Kossa special stain for calcium deposition will be reported as an addendum. The histologic differential may include vasculopathy and vasculitis from coumadin necrosis or sepsis. 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, which may be due to emt intermediate steroid use, but is worsening patient states she is using prednisone because she was unable to be weaned off since the failure of her renal transplant Nephrology is following Spoke with utility forester 01/11 she believes it is hard to completely rule out calciphylaxis, and renal wants to continue thiosulphate, I will consult hematology for recommendation after Protein C is resulted. However, I do not think there are many not options for anticoagulation for Afib as she is also documented to have allergies to Heparin as well She will be having a repeat skin biopsy as out-patient on January 18 at 10 a.[address] Medical Office [id number] We will continue to manage as both Coumadin induced skin necrosis as well as calciphylaxis at this time This mrn, her WBC is 32,500, she remains afebrile, her abdominal skin lesions are foul-smelling, I have requested new blood and wound cultures She remains hemodynamically stable Oncology has been consulted - Constitutional Vitals: Temp Pulse Resp BP Pulse Ox 98.5 F 71 16 98/62 93 01/12/18 10:34 01/12/18 10:34 01/12/18 10:40 01/12/18 10:34 01/12/18 10:40 General appearance: Present: A&O X 3, pleasant, no acute distress, obese - Head Head exam: Present: atraumatic, normocephalic - Eye Eye exam: Present: PERRL, conjuntiva pink, sclera anicteric Pupils: Present: PERRL - Neck Neck exam general surgery: Present: supple, trachea midline. Absent: lymphadenopathy - Respiratory Respiratory exam: Present: CTAB. Absent: accessory muscle use, rales, rhonchi, wheezes - Cardiovascular Cardiovascular exam: Present: RRR, +S1, +S2. Absent: diastolic murmur, gallop, rubs, systolic murmur - GI/Abdominal GI/Abdominal exam: Present: normal bowel sounds, no peritoneal signs. Absent: tenderness Additional comments: diffuse multiple skin lesions with central necrosis, surrounding hyperemia, foul -smelling, also affecting upper thighs - Extremities Exam Extremities exam: Present: warm, radial pulses palpable and symmetrical. Absent : calf tenderness, cyanotic, pedal edema - Neurological Exam Neurological exam: Present: alert, CN II-XII intact, oriented X3, no focal deficits. Absent: pronater drift, facial droop, speech deficit - Skin Skin exam: Present: rash Internal Medicine: Result - Labs CBC & Chem 7: 01/12/18 04:40 01/12/18 04:40 Labs: Short CBC 01/12/18 Range/Units 04:40 WBC 32.5 H* (4.3-11.1) K/mcL Hgb 8.4 L (11.5-15.4) g/dL Hct 24.9 L (35.3-44.9) % Plt Count 219 (140-400) K/mcL Neutrophils # 28.5 H (1.6-8.9) K/mcL BMP 01/12/18 04:40 Sodium 138 Potassium 3.9 Chloride 85 L Carbon Dioxide 14 L BUN 66 H Creatinine 10.61 H Glucose 114 H Calcium 6.9 L - ABG Interpretation ABG results: PT/INR, D-dimer PT 37.8 Seconds (9.4-12.1) H 01/06/18 18:09 - VTE Reasons for not Prescribing Prophylaxis: Medical contraindication Consult Discharge Plan - Plan Referrals: Peter Vicente DO [Primary Care Provider] - 01/24/18 10:00 am (Please follow up as schedule...with Dr. Yang)
[2018-01-12] MEDS ORDERED: Perit. Dialysis with Dex 1.5 % 12,000 ML PERITONEAL ONE (16:00)
[2018-01-13] MEDS ORDERED: *HR* Promethazine 25 MG/ML VIAL IVP PRN (00:58)
[2018-01-13] MEDS: *HR* HYDROcodone/Acet 10/325 mg TABLET PO PRN ×3 (01:21→12:13)
[2018-01-13] MEDS: Piperacillin/Tazobactam 3.375 GM in 0.9 % Sodium Chloride Mini Bag 100 ML IVPB SCH ×2 (06:31→16:40)
[2018-01-13 06:44] LABS: Basophils % 0.1 %
[2018-01-13 06:46] LABS: Hematocrit 21.5 % (35.3-44.9); Hemoglobin 7.2 g/dL (11.5-15.4); Immature Granulocytes % 2.6 % (0-4); Lymphocytes % 3.8 %; Mean Corpuscular HGB Conc 33.5 g/dL (31.6-35.5); Mean Corpuscular Hemoglobin 32.1 pg (28.0-33.3); Mean Platelet Volume 10.6 fL (9.4-12.4); Monocytes # 1.7 K/mcL (0.0-1.3); Monocytes % 6.5 %; Neutrophils # 23.1 K/mcL (1.6-8.9); Platelet Count 204 K/mcL (140-400); Red Blood Count 2.24 M/mcL (3.82-4.97); Red Cell Distribution Width 19.4 % (11.5-14.5)
[2018-01-13 07:09] LABS: Calcium 6.7 mg/dL (8.6-10.3); Potassium 3.9 mEq/L (3.5-5.1)
[2018-01-13 07:12] LABS: Platelet Estimate Normal (Normal)
[2018-01-13] MEDS: cloNIDine HCl 0.1 MG TABLET PO SCH ×2 (07:37→20:48)
[2018-01-13] MEDS: amLODIPine 5 MG TABLET PO SCH (07:37)
[2018-01-13] MEDS: hydrALAZINE 25 MG TABLET PO SCH ×2 (07:37→20:48)
[2018-01-13] MEDS: Metoprolol XL (24 HR) Succ 25 MG TAB.ER.24H PO SCH (07:48)
[2018-01-13] MEDS: predniSONE 10 MG TABLET PO SCH (07:48)
[2018-01-13] MEDS: *HR* Amiodarone 200 MG TABLET PO SCH (07:48)
[2018-01-13] MEDS: Ondansetron 4 MG/2 ML VIAL IVP PRN (08:05)
--- NOTE | 2018-01-13 09:52 | Nephrology Consult Note ---
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 Will stop in the am Plan for HD monday via AVF (3) Leukocytosis Current Visit: Yes Status: Acute Improving, slowly. followup cultures. Continue abx per primary team Qualifiers: Leukocytosis type: bandemia Qualified Code(s): D72.825 - Bandemia (4) Anemia Current Visit: No Status: Acute hgb low despite aranesp. Heme/onc following. Await recs Transfusion parameters: hgb 7 and under Qualifiers: Other causes of anemia: chronic disease, other Qualified Code(s): D63.8 - Anemia in other chronic diseases classified elsewhere History of Present Illness - Reason for Consult Consult date: 01/13/18 end stage renal disease Requesting physician: Parviz Sanchez - History of Present Illness Asked to see patient in consultation today as previous accounting auditor is no longer covering the hospital. In brief, 42 y o female with long standing history of renal disease dating back to 2003 initially on HD then PD but ultimately receiving renal transplant ' which failed according to patient a year ago for reasons unknown returning her back to PD at home on 4 exchange cycles alternating 2.5/1.5 dialysate. 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 She also has a PMH of Afib requiring [facility] anticoag with coumadin. She presented this hospital stay with abdominal and flank necrotic, painful lesions presumed to be calciphylasix. Recent biopsy report noted but inconclusive for calciphylaisx but some symptomatic relief with pain already noted after a couple doses of sodium thiosulfate. Pt now agreeable to switching to HD temporarily for further treatment with sodium thiosulfate. Past Med Surg Social Fam HX - Past Medical History Medical history: asthma, atrial fibrillation, diabetes, GI bleed, hyperlipidemia , hypertension, renal disease, thyroid disease Additional medical history: ANEMIA, BLEEDING ULCER,. KIDNEY DIALYSIS Psychiatric history: no psych history - Past Surgical History Surgical History: appendectomy, cholecystectomy, thyroidectomy, other Additional surgical history: KIDNEY TRANSPLANT 2007, TUBAL LIGATION, shunt danya - Social History Smoking Status: Never smoker Smokeless Tobacco Status: No Alcohol use: none Drug use: none Medications and Allergies Albuterol Sulfate [Albuterol Inhaler] 2 puff IH Q4H PRN 09/09/16 [History] Amiodarone [Cordarone] 200 mg PO DAILY 09/09/16 [History] Atorvastatin [Lipitor] 40 mg PO HS 09/09/16 [History] Budesonide/Formoterol 160/4.5 [Symbicort 160/4.5] 2 puff IH BIDR 09/09/16 [ History] Ipratropium/Albuterol Neb [Duoneb] 3 ml IH QID PRN 09/09/16 [History] Levothyroxine Sodium [Synthroid] 200 mcg PO QAM 09/09/16 [History] Omeprazole [PriLOSEC] 20 mg PO DAILY 09/09/16 [History] cloNIDine HCl [Clonidine HCl] 0.1 mg PO TID 09/09/16 [History] hydrALAZINE [HydrALAZINE] 50 mg PO BID 09/09/16 [History] predniSONE [PredniSONE] 10 mg PO DAILY 09/09/16 [History] Acetaminophen [Acetaminophen ER] 650 mg PO Q4H PRN 12/23/16 [History] Diphenoxylate/Atropine [Lomotil 2.5 mg/0.025 mg] 1 each PO Q4H PRN 12/23/16 [ History] Montelukast [Singulair] 10 mg PO DAILY 02/16/17 [History] Amlodipine Besylate [Amlodipine Besylate] 5 mg PO BID 01/07/18 [History] Folic Acid [Folic Acid] 1 mg PO DAILY 01/07/18 [History] Metoprolol Succinate [Toprol Xl] 25 mg PO DAILY 01/07/18 [History] Potassium Chloride 20 meq PO DAILY 01/07/18 [History] Warfarin [Coumadin] 1 mg PO TUTH 01/07/18 [History] Warfarin [Coumadin] 2 mg PO WE 01/07/18 [History] 3 Allergy/AdvReac Type Severity Reaction Status Date / Time heparin Allergy See Verified 01/07/18 13:14 Comments Review of Systems All Systems: reviewed and no additional remarkable complaints except as stated ( 10 systems reviewed and as noted in HPI) Exam - Vital Signs Vital signs: Initial Vital Signs Temp Pulse Resp BP Pulse Ox 97.8 F 94 18 113/75 92 01/06/18 16:51 01/06/18 16:51 01/06/18 16:51 01/06/18 16:51 01/06/18 16:51 Vital Signs - Last 8 Hours Temp Pulse Resp BP Pulse Ox 01/13/18 07:33 98.5 F 71 18 111/73 93 01/13/18 07:10 98.7 F 16 122/68 01/13/18 03:43 99.0 F 72 18 101/64 94 Intake and Output 01/12/18 01/13/18 01/13/18 23:59 07:59 15:59 Intake Total 100 / 100 Balance 100 / 100 Intake: IV Fluids 100 / 100 Zosyn 3.375 GM In 0.9 % Sodium 100 / 100 Chloride (Mini-Bag +) 100 ML @ 25 mls/hr IVPB Q12HR [facility] Rx#: [id number] - General Appearance General appearance: obese, chronically ill EENT: ATNC, mucous membranes moist Neck: no JVD, supple Respiratory: clear (ant bilat) Cardiology: no edema, normal S1, normal S2 - Dialysis Access Dialysis Vascular Access: Arteriovenous Fistula thrill: Yes bruit: Yes Additional Comments: PD catheter in place as well Gastrointestinal: tenderness (wound sites), no guarding, obese Integumentary: warm and dry Neurologic: no focal deficit Psychiatric: mood/affect appropriate, cooperative Results - Lab Results 01/13/18 06:22 01/13/18 06:22 Most recent lab results Calcium 6.7 mg/dL (8.6-10.3) L 01/13/18 06:22 Phosphorus 3.9 mg/dL (2.7-4.5) 01/10/18 04:07 Magnesium 2.0 mg/dL (1.6-2.6) 01/10/18 04:07 Consult Discharge Plan - Plan Referrals: Peter Vicente DO [Primary Care Provider] - 01/24/18 10:00 am (Please follow up as schedule...with Dr. Yang)
[2018-01-13] MEDS ORDERED: Perit. Dialysis with Dex 1.5 % 12,000 ML PERITONEAL ONE (10:16)
[2018-01-13] MEDS: Acetaminophen 325 MG TABLET PO PRN (10:58)
[2018-01-13] MEDS: Budesonide/Formoterol 160/4.5 MDI IH SCH ×2 (11:29→21:23)
--- NOTE | 2018-01-13 11:59 | Internal Med Progress Note ---
Date of Encounter: 01/13/18 Time of Encounter: 11:59 - Assessment and plan (1) Leukocytosis Current Visit: Yes Status: Acute Assessment and plan: Bandemia, worsening with increasing neutophilia Toxic vacoulations and granulations noted on CBC from 01/12 WBC improved from 32.5 to 26.6 patient remains afebrile No tachycardia She currently has multiple abdominal wounds that are foul smelling Continue Vanco and Zosyn-Day 2 Follow wound and blood cultures from 01/12 Blood culture on admission negative Hb has been stable, it is unlikely that this leukocytosis is due to acute blood loss. 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 with financial retirement plan specialist who recommends continued treatment for calciphylaxis till skin biopsy is repeated in one week Continue thiosulphaute 3ice weekly Consider beginning HD per recommendation Nephrology following (3) Coumarin-induced necrosis Current Visit: Yes Status: Suspected Assessment and plan: suspected, patient has been on coumadin for several years Continue wound dressing Coumadin has been held since admission, due to acute anemia on presentation Protein C level ordered 01/01, result pending hematology consulted for additional recommendations, evaluation noted, recommend to restart patient's coumadin if GIB is ruled out, as there are not other options at this time and the suspicion for coumadin induced necrosis is pending Patient also allergic to Heparin products (4) ESRD (end stage renal disease) Current Visit: Yes Status: Chronic Assessment and plan: on PD, continue same follow renal eval (5) Anemia in chronic kidney disease (CKD) Current Visit: Yes Status: Chronic Assessment and plan: chronic, hb on presentation 7.7. s/p 2 units has remained stable between 7 and 8 Continue to monitor Check FOBT Qualifiers: Chronic kidney disease stage: on chronic dialysis Qualified Code(s): N18.6 - End stage renal disease; D63.1 - Anemia in chronic kidney disease; Z99.2 - Dependence on renal dialysis (6) Chronic kidney disease-mineral and bone disorder Current Visit: Yes Status: Acute Assessment and plan: Continue Sevelamer (7) Hypokalemia Current Visit: Yes Status: Resolved Assessment and plan: K 3.9 this a.m Continue to monitor (8) Hyponatremia Current Visit: Yes Status: Acute Assessment and plan: Na now WNL, continue to monitor (9) DVT prophylaxis Current Visit: Yes Status: Acute Assessment and plan: SCDs - Time Spent With Patient Total time spent is greater than 50% in coordination of care (as documented) at patient's floor/unit and/or counseling patient: - Subjective Interval history: Seen and examined at the bedside Patient with biopsy proven calciphylaxis in 2016, being co-managed with nephrology She has no new complains on evaluation today Skin biopsy report 01/11 noted- "In the planes of sectioning examined, there is no evidence of calciphylaxis and results of Von Kossa special stain for calcium deposition will be reported as an addendum. The histologic differential may include vasculopathy and vasculitis from coumadin necrosis or sepsis. Clinico- pathologic correlation is required" Spoke with financial retirement plan specialist 01/11 she believes it is hard to completely rule out calciphylaxis, and renal wants to continue thiosulphate, I will consult hematology for recommendation after Protein C is resulted. However, I do not think there are many not options for anticoagulation for Afib as she is also documented to have allergies to Heparin as well She will be having a repeat skin biopsy as out-patient on January 18 at 10 a.m. Medical Office building [address] Oncology was consulted 01/12: Recommendations to continue coumadin if GIB has been ruled out, low suspicion for Coumadin induced skin necrosis Nephrology is following and recommend HD with thiosulphate after HD 3ice weekly She denies new complains She states her pain is not well controlled-increased frequency of pain meds WBC is improving, blood cultures from 01/12 no growth, wound cultures pending - Constitutional Vitals: Temp Pulse Resp BP Pulse Ox 98.5 F 71 17 102/56 92 01/13/18 11:40 01/13/18 11:40 01/13/18 11:40 01/13/18 11:40 01/13/18 11:40 General appearance: Present: A&O X 3, pleasant, no acute distress, obese - Head Head exam: Present: atraumatic, normocephalic - Eye Eye exam: Present: PERRL, conjuntiva pink, sclera anicteric Pupils: Present: PERRL - Neck Neck exam general surgery: Present: supple, trachea midline. Absent: lymphadenopathy - Respiratory Respiratory exam: Present: CTAB. Absent: accessory muscle use, rales, rhonchi, wheezes - Cardiovascular Cardiovascular exam: Present: RRR, +S1, +S2. Absent: diastolic murmur, gallop, rubs, systolic murmur - GI/Abdominal Additional comments: diffuse multiple skin lesions with central necrosis, surrounding hyperemia, foul -smelling, also affecting upper thighs - Extremities Exam Extremities exam: Present: warm, radial pulses palpable and symmetrical. Absent : calf tenderness, cyanotic, pedal edema - Neurological Exam Neurological exam: Present: alert, CN II-XII intact, oriented X3, no focal deficits. Absent: pronater drift, facial droop, speech deficit - Skin Skin exam: Present: rash Internal Medicine: Result - Labs CBC & Chem 7: 01/13/18 06:22 01/13/18 06:22 Labs: Short CBC 01/13/18 Range/Units 06:22 WBC 26.6 H (4.3-11.1) K/mcL Hgb 7.2 L (11.5-15.4) g/dL Hct 21.5 L (35.3-44.9) % Plt Count 204 (140-400) K/mcL Neutrophils # 23.1 H (1.6-8.9) K/mcL BMP 01/13/18 06:22 Sodium 136 Potassium 3.9 Chloride 86 L Carbon Dioxide 16 L BUN 65 H Creatinine 10.14 H Glucose 112 H Calcium 6.7 L - ABG Interpretation ABG results: PT/INR, D-dimer PT 37.8 Seconds (9.4-12.1) H 01/06/18 18:09 - VTE Reasons for not Prescribing Prophylaxis: Medical contraindication Consult Discharge Plan - Plan Referrals: Peter Vicente DO [Primary Care Provider] - 01/24/18 10:00 am (Please follow up as schedule...with Dr. Yang)
[2018-01-13] MEDS: Perit. Dialysis with Dex 1.5 % 12,000 ML PERITONEAL SCH ×2 (16:36→20:40)
[2018-01-13] MEDS: Sodium Thiosulfate 25 GM in EMPTY BAG 1 EACH IVPB SCH (16:37)
[2018-01-14] MEDS: *HR* HYDROcodone/Acet 10/325 mg TABLET PO PRN ×4 (00:02→20:57)
[2018-01-14] MEDS: Acetaminophen 325 MG TABLET PO PRN (05:46)
[2018-01-14] MEDS: Piperacillin/Tazobactam 3.375 GM in 0.9 % Sodium Chloride Mini Bag 100 ML IVPB SCH ×2 (05:46→16:52)
[2018-01-14] MEDS: cloNIDine HCl 0.1 MG TABLET PO SCH ×2 (09:14→20:33)
[2018-01-14] MEDS: predniSONE 10 MG TABLET PO SCH (09:14)
[2018-01-14] MEDS: Metoprolol XL (24 HR) Succ 25 MG TAB.ER.24H PO SCH (09:14)
[2018-01-14] MEDS: hydrALAZINE 25 MG TABLET PO SCH ×2 (09:14→20:33)
[2018-01-14] MEDS: *HR* Amiodarone 200 MG TABLET PO SCH (09:14)
[2018-01-14] MEDS: amLODIPine 5 MG TABLET PO SCH (09:15)
[2018-01-14 09:29] LABS: Basophils % 0.1 %; Eosinophils # 0.1 K/mcL (0.0-0.6); Eosinophils % 0.6 %; Hematocrit 22.6 % (35.3-44.9); Hemoglobin 7.5 g/dL (11.5-15.4); Immature Granulocytes % 3.2 % (0-4); Lymphocytes # 1.4 K/mcL (0.6-4.6); Lymphocytes % 6.4 %; Mean Corpuscular HGB Conc 33.2 g/dL (31.6-35.5); Mean Corpuscular Hemoglobin 33.2 pg (28.0-33.3); Mean Platelet Volume 10.5 fL (9.4-12.4); Monocytes # 1.5 K/mcL (0.0-1.3); Monocytes % 6.8 %; Neutrophils # 18.3 K/mcL (1.6-8.9); Platelet Count 214 K/mcL (140-400); Red Blood Count 2.26 M/mcL (3.82-4.97); Red Cell Distribution Width 19.1 % (11.5-14.5); Segmented Neutrophils % 82.9 %
[2018-01-14 09:54] LABS: Calcium 6.2 mg/dL (8.6-10.3); Potassium 3.5 mEq/L (3.5-5.1)
[2018-01-14] MEDS: Budesonide/Formoterol 160/4.5 MDI IH SCH ×2 (10:02→21:14)
[2018-01-14] MEDS: Darbepoetin 150 MCG/0.3 ML SYRINGE SQ SCH (10:41)
--- NOTE | 2018-01-14 10:43 | Nephrology Progress Note ---
Date of Encounter: 01/14/18 Time of Encounter: 12:00 - Assessment and Plan (1) Calciphylaxis Current Visit: Yes Status: Acute continue sodium thiosufate, will give after HD tomorrow Will switch from PD to HD tomorrow and arrange PD catheter removal Aggressive wound care advised Pain management to be escalated (2) ESRD on hemodialysis Current Visit: Yes Status: Acute HD planned tomorrow and will continue m-w-f Will need outpatient HD arranged (3) Leukocytosis Current Visit: Yes Status: Acute Improving on abx wound cx showing GNR Qualifiers: Leukocytosis type: bandemia Qualified Code(s): D72.825 - Bandemia (4) Anemia Current Visit: No Status: Acute hgb low but stable at 7.5 on aranesp Will consider transfusion while on HD today as needed Qualifiers: Other causes of anemia: chronic disease, other Qualified Code(s): D63.8 - Anemia in other chronic diseases classified elsewhere Subjective Interval history: Pt seen and examined with complaint of very painful abdominal lesions Objective - Vital Signs Vital signs: Vital Signs Temp Pulse Resp BP Pulse Ox 01/14/18 10:41 129/63 01/14/18 10:02 18 91 01/14/18 07:44 97.6 F 18 129/63 01/14/18 07:34 98.6 F 64 19 129/63 91 01/14/18 04:01 98.8 F 66 18 138/78 92 01/14/18 00:03 98.3 F 73 18 131/67 99 01/13/18 21:24 16 94 01/13/18 20:30 97.9 F 18 113/53 01/13/18 18:55 97.9 F 64 16 117/74 94 01/13/18 15:58 98.3 F 69 18 116/66 91 01/13/18 11:40 98.5 F 71 17 102/56 92 01/13/18 11:30 18 93 Intake and Output 01/13/18 01/14/18 01/14/18 23:59 07:59 15:59 Intake Total 220 / 220 240 / 240 Balance 220 / 220 240 / 240 Intake: IV Fluids 100 / 100 Zosyn 3.375 GM In 0.9 % Sodium 100 / 100 Chloride (Mini-Bag +) 100 ML @ 25 mls/hr IVPB Q12HR [facility] Rx#: [id number] Oral 120 / 120 240 / 240 Other: Meal Dinner Percent of Meal Consumed 50% 20% Stool Size Small Stool Consistency loose Stool Color Brown # Bowel Movements 1 Weight 86.908 kg Patient Weight 01/14/18 23:59 Weight 86.908 kg - General Appearance General appearance: Present: chronically ill (NAd) EENT: Present: ATNC, mucous membranes moist Neck: Present: no JVD, supple Respiratory: Present: clear (ant bilat) Cardiology: Present: no edema, normal S1, normal S2 Dialysis Vascular Access: Arteriovenous Fistula thrill: Yes bruit: Yes Additional Comments: PD catheter Gastrointestinal: Present: tenderness, no guarding, obese Additional Comments: several necrotic lesions note with occasional purulent areas Integumentary: Present: warm and dry Neurologic: Present: no focal deficit Musculoskeletal: Present: no deformities Psychiatric: Present: mood/affect appropriate, cooperative - Lab 01/14/18 07:47 01/14/18 07:47 Most recent lab results Calcium 6.2 mg/dL (8.6-10.3) L 01/14/18 07:47 Phosphorus 3.9 mg/dL (2.7-4.5) 01/10/18 04:07 Magnesium 2.0 mg/dL (1.6-2.6) 01/10/18 04:07 - VTE Reasons for not Prescribing Prophylaxis: Medical contraindication Consult Discharge Plan - Plan Referrals: Peter Vicente DO [Primary Care Provider] - 01/24/18 10:00 am (Please follow up as schedule...with Dr. Yang)
[2018-01-14] MEDS ORDERED: *HR* Morphine 2 MG/ML SYRINGE IVP ONE (10:57)
--- NOTE | 2018-01-14 11:20 | Internal Med Progress Note ---
Date of Encounter: 01/14/18 Time of Encounter: 11:20 - Assessment and plan (1) Leukocytosis Current Visit: Yes Status: Acute Assessment and plan: Bandemia, worsening with increasing neutophilia Toxic vacoulations and granulations noted on CBC from 01/12 WBC improving, 32.5-26.6-22 patient remains afebrile No tachycardia She currently has multiple abdominal wounds that are foul smelling Continue Vanco and Zosyn-Day 3 Wound culture with GNR Blood culture on admission negative Hb has been stable, it is unlikely that this leukocytosis is due to acute blood loss. 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 with printer slotter operator who recommends continued treatment for calciphylaxis till skin biopsy is repeated in one week Continue thiosulphaute 3ice weekly Consider beginning HD per recommendation Nephrology following (3) Coumarin-induced necrosis Current Visit: Yes Status: Suspected Assessment and plan: suspected, patient has been on coumadin for several years Continue wound dressing Coumadin has been held since admission, due to acute anemia on presentation Protein C level ordered 01/01, result pending hematology consulted for additional recommendations, evaluation noted, recommend to restart patient's coumadin if GIB is ruled out, as there are not other options at this time Patient also allergic to Heparin products FOBT positive Consult GI for endoscopy prior to resuming Coumadin (4) ESRD (end stage renal disease) Current Visit: Yes Status: Chronic Assessment and plan: on PD, continue same , HD per renal follow renal eval (5) Anemia in chronic kidney disease (CKD) Current Visit: Yes Status: Chronic Assessment and plan: chronic, hb on presentation 7.7. s/p 2 units has remained stable between 7 and 8 Continue to monitor FOBT positive Will consult GI Qualifiers: Chronic kidney disease stage: on chronic dialysis Qualified Code(s): N18.6 - End stage renal disease; D63.1 - Anemia in chronic kidney disease; Z99.2 - Dependence on renal dialysis (6) Chronic kidney disease-mineral and bone disorder Current Visit: Yes Status: Acute Assessment and plan: Continue Sevelamer (7) Hypokalemia Current Visit: Yes Status: Resolved Assessment and plan: K 3.5 this a.m Continue to monitor (8) Hyponatremia Current Visit: Yes Status: Acute Assessment and plan: Na now WNL, continue to monitor (9) DVT prophylaxis Current Visit: Yes Status: Acute Assessment and plan: SCDs - Time Spent With Patient Total time spent is greater than 50% in coordination of care (as documented) at patient's floor/unit and/or counseling patient: - Subjective Interval history: Seen and examined at the bedside Patient with biopsy proven calciphylaxis in 2016, being co-managed with nephrology She has no new complains on evaluation today Skin biopsy report 01/11 noted- "In the planes of sectioning examined, there is no evidence of calciphylaxis and results of Von Kossa special stain for calcium deposition will be reported as an addendum. The histologic differential may include vasculopathy and vasculitis from coumadin necrosis or sepsis. Clinico- pathologic correlation is required" Spoke with printer slotter operator 01/11 she believes it is hard to completely rule out calciphylaxis, and renal wants to continue thiosulphate, I will consult hematology for recommendation after Protein C is resulted. However, I do not think there are many not options for anticoagulation for Afib as she is also documented to have allergies to Heparin as well She will be having a repeat skin biopsy as out-patient on January 18 at 10 a.m. Medical Office building [address] Oncology was consulted 01/12: Recommendations to continue coumadin if GIB has been ruled out, low suspicion for Coumadin induced skin necrosis Nephrology is following and recommend HD with thiosulphate after HD 3ice weekly She denies new complains WBC continued to improve on current antibiotics Wound culture with GNR Wound still foul-smelling, wound care eval requested again Renal eval appreciated, for resumption of HD a.m and to possible remove peritoneal cath - Constitutional Vitals: Temp Pulse Resp BP Pulse Ox 98.6 F 75 18 112/69 91 01/14/18 11:13 01/14/18 11:13 01/14/18 11:13 01/14/18 11:13 01/14/18 11:13 General appearance: Present: A&O X 3, pleasant, no acute distress, obese - Head Head exam: Present: atraumatic, normocephalic - Eye Eye exam: Present: PERRL, conjuntiva pink, sclera anicteric Pupils: Present: PERRL - Neck Neck exam general surgery: Present: supple, trachea midline. Absent: lymphadenopathy - Respiratory Respiratory exam: Present: CTAB. Absent: accessory muscle use, rales, rhonchi, wheezes - Cardiovascular Cardiovascular exam: Present: RRR, +S1, +S2. Absent: diastolic murmur, gallop, rubs, systolic murmur - GI/Abdominal Additional comments: diffuse multiple skin lesions on abdominal wall -lower, with extension to panniculus and upper thigh, foul-smelling - Extremities Exam Extremities exam: Present: warm, radial pulses palpable and symmetrical. Absent : calf tenderness, cyanotic, pedal edema - Neurological Exam Neurological exam: Present: alert, CN II-XII intact, oriented X3, no focal deficits. Absent: pronater drift, facial droop, speech deficit - Skin Skin exam: Present: dry Internal Medicine: Result - Labs CBC & Chem 7: 01/14/18 07:47 01/14/18 07:47 Labs: Short CBC 01/14/18 Range/Units 07:47 WBC 22.1 H (4.3-11.1) K/mcL Hgb 7.5 L (11.5-15.4) g/dL Hct 22.6 L (35.3-44.9) % Plt Count 214 (140-400) K/mcL Neutrophils # 18.3 H (1.6-8.9) K/mcL BMP 01/14/18 07:47 Sodium 137 Potassium 3.5 Chloride 90 L Carbon Dioxide 18 L BUN 67 H Creatinine 9.76 H Glucose 109 H Calcium 6.2 L - ABG Interpretation ABG results: PT/INR, D-dimer PT 37.8 Seconds (9.4-12.1) H 01/06/18 18:09 - VTE Reasons for not Prescribing Prophylaxis: Medical contraindication Consult Discharge Plan - Plan Referrals: Peter Vicente DO [Primary Care Provider] - 01/24/18 10:00 am (Please follow up as schedule...with Dr. Yang)
[2018-01-14] MEDS: Perit. Dialysis with Dex 1.5 % 12,000 ML PERITONEAL SCH (22:03)
[2018-01-15] MEDS: Piperacillin/Tazobactam 3.375 GM in 0.9 % Sodium Chloride Mini Bag 100 ML IVPB SCH ×2 (05:35→18:01)
[2018-01-15] MEDS: *HR* HYDROcodone/Acet 10/325 mg TABLET PO PRN ×3 (05:36→18:03)
[2018-01-15 06:09] LABS: Basophils % 0.1 %; Eosinophils % 0.1 %; Hematocrit 21.4 % (35.3-44.9); Immature Granulocytes % 2.6 % (0-4); Lymphocytes # 1.1 K/mcL (0.6-4.6); Lymphocytes % 4.5 %; Mean Corpuscular HGB Conc 32.7 g/dL (31.6-35.5); Mean Corpuscular Hemoglobin 32.4 pg (28.0-33.3); Mean Corpuscular Volume 99.1 fL (83.0-100.0); Mean Platelet Volume 10.7 fL (9.4-12.4); Monocytes # 2.2 K/mcL (0.0-1.3); Monocytes % 8.9 %; Neutrophils # 20.2 K/mcL (1.6-8.9); Platelet Count 206 K/mcL (140-400); Red Blood Count 2.16 M/mcL (3.82-4.97); Red Cell Distribution Width 18.7 % (11.5-14.5); Segmented Neutrophils % 83.8 %
[2018-01-15 06:16] LABS: Calcium 6.3 mg/dL (8.6-10.3); Potassium 4.8 mEq/L (3.5-5.1)
[2018-01-15] MEDS ORDERED: 0.9 % Sodium Chloride 250 ML IVC PRN (07:25)
[2018-01-15] MEDS ORDERED: 0.9 % Sodium Chloride 1,000 ML PRIME SCH (07:30)
[2018-01-15] MEDS ORDERED: 0.9 % Sodium Chloride 2,000 ML ONE (07:51)
[2018-01-15] MEDS: hydrALAZINE 25 MG TABLET PO SCH ×2 (07:53→20:03)
[2018-01-15] MEDS: *HR* Amiodarone 200 MG TABLET PO SCH (07:57)
[2018-01-15] MEDS: Acetaminophen 325 MG TABLET PO PRN ×2 (07:57→20:12)
[2018-01-15] MEDS: predniSONE 10 MG TABLET PO SCH (07:57)
[2018-01-15] MEDS: Metoprolol XL (24 HR) Succ 25 MG TAB.ER.24H PO SCH (07:58)
[2018-01-15] MEDS: cloNIDine HCl 0.1 MG TABLET PO SCH ×2 (07:58→20:03)
[2018-01-15] MEDS ORDERED: Vancomycin 1 EACH in 0.9 % Sodium Chloride 250 ML IVPB PRN (09:30)
[2018-01-15] MEDS: Budesonide/Formoterol 160/4.5 MDI IH SCH ×2 (10:30→20:41)
--- NOTE | 2018-01-15 10:54 | Internal Med Progress Note ---
Date of Encounter: 01/15/18 Time of Encounter: 10:54 - Assessment and plan (1) GI bleed Current Visit: Yes Status: Suspected Assessment and plan: Suspected gastrointestinal bleed due to acute on chronic blood loss anemia in a patient with prior history of bleeding duodenal ulcers, and on Coumadin. Patient has not been on Coumadin since admission due to suspicion of Coumadin- induced necrosis as well as calciphylaxis. Gastroenterology consulted for endoscopy. Endoscopy planned for 01/16. Qualifiers: GI bleed type/associated pathology: unspecified gastrointestinal hemorrhage type Qualified Code(s): K92.2 - Gastrointestinal hemorrhage, unspecified (2) Leukocytosis Current Visit: Yes Status: Acute Assessment and plan: Bandemia, worsening with increasing neutophilia Toxic vacoulations and granulations noted on CBC from 01/12 WBC improving, 32.5-26.6-22-24 patient remains afebrile No tachycardia She currently has multiple abdominal wounds that are foul smelling Continue Vanco and Zosyn-Day 4 Wound culture with GNR, final sensitivity pending Blood culture on admission negative, repeat blood culture preliminary negative Patient with acute drop in hemoglobin, leukocytosis, possibly worsened by blood loss anemia Will continue to monitor Qualifiers: Leukocytosis type: bandemia Qualified Code(s): D72.825 - Bandemia (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 Assessment and plan: Skin biopsy noted for vasculopathy/vasculitis from coumadin skin necrosis vs sepsis Patient has no evidence of sepsis she was started on antibiotics 01/08 for her numerous skin lesions She is afebrile and blood culture on admission is negative till date She was on Coumadin at home but hasn't been receiving it since admission She is on Coumadin for Afib Spoke with personal lines sales executive who recommends continued treatment for calciphylaxis till skin biopsy is repeated in one week 01/18 Continue thiosulphaute 3ice weekly Nephrology following, and patient's to hemodialysis this morning. Continue sevelamer. (4) Coumarin-induced necrosis Current Visit: Yes Status: Suspected Assessment and plan: suspected, patient has been on coumadin for several years Continue wound dressing Coumadin has been held since admission, due to acute anemia on presentation Protein C level ordered 01/01 Resulted with protein C level of 22, expected should be 83-186. hematology consulted for additional recommendations, evaluation noted, recommend to restart patient's coumadin if GIB is ruled out, as there are not other options at this time Patient also allergic to Heparin products FOBT positive We will order protein C concentrate GI consulted for endoscopy May resume Coumadin only if GI bleed is ruled out (5) ESRD (end stage renal disease) Current Visit: Yes Status: Chronic Assessment and plan: was on PD Begun hemodialysis today nephrology is following. (6) Anemia in chronic kidney disease (CKD) Current Visit: Yes Status: Chronic Assessment and plan: chronic, hb on presentation 7.7. s/p 2 units Hemoglobin dropped to 7.0 this morning 2 is otherwise ordered Gastroenterology consulted for endoscopy Qualifiers: Chronic kidney disease stage: on chronic dialysis Qualified Code(s): N18.6 - End stage renal disease; D63.1 - Anemia in chronic kidney disease; Z99.2 - Dependence on renal dialysis (7) Chronic kidney disease-mineral and bone disorder Current Visit: Yes Status: Acute Assessment and plan: Continue Sevelamer (8) Hypokalemia Current Visit: Yes Status: Resolved Assessment and plan: K 4.8 this a.m Continue to monitor (9) Hyponatremia Current Visit: Yes Status: Resolved Assessment and plan: Resolved, sodium within normal limit (10) DVT prophylaxis Current Visit: Yes Status: Acute Assessment and plan: SCDs - Time Spent With Patient Total time spent is greater than 50% in coordination of care (as documented) at patient's floor/unit and/or counseling patient: - Subjective Interval history: Seen and examined at the bedside She has no new complains on evaluation today Skin biopsy report 01/11 noted- "In the planes of sectioning examined, there is no evidence of calciphylaxis and results of Von Kossa special stain for calcium deposition will be reported as an addendum. The histologic differential may include vasculopathy and vasculitis from coumadin necrosis or sepsis. Clinico- pathologic correlation is required" Spoke with personal lines sales executive 01/11 she believes it is hard to completely rule out calciphylaxis, and renal wants to continue thiosulphate, I will consult hematology for recommendation after Protein C is resulted. However, I do not think there are many not options for anticoagulation for Afib as she is also documented to have allergies to Heparin as well She will be having a repeat skin biopsy as out-patient on January 18 at 10 a.[address] Medical Office building [address] Oncology was consulted 01/12: Recommendations to continue coumadin if GIB has been ruled out, low suspicion for Coumadin induced skin necrosis Nephrology is following and recommend HD with thiosulphate after HD 3ice weekly She denies new complains WBC continues to improve on current antibiotics Wound culture with GNR, renal sensitivities pending Wound still foul-smelling, wound care eval requested 01/14 Patient again experienced an acute blood loss this morning, with positive occult blood testing. Gastroenterology consulted and plans for endoscopy tomorrow 01/16 Renal eval appreciated - Constitutional Vitals: Temp Pulse Resp BP Pulse Ox 98.4 F 76 20 135/69 91 01/15/18 07:56 01/15/18 07:56 01/15/18 07:56 01/15/18 07:56 01/15/18 07:56 General appearance: Present: A&O X 3, pleasant, no acute distress, obese - Head Head exam: Present: atraumatic, normocephalic - Eye Eye exam: Present: PERRL, conjuntiva pink, sclera anicteric Pupils: Present: PERRL - Neck Neck exam general surgery: Present: supple, trachea midline. Absent: lymphadenopathy - Respiratory Respiratory exam: Present: CTAB. Absent: accessory muscle use, rales, rhonchi, wheezes - Cardiovascular Cardiovascular exam: Present: irregular rhythm, +S1, +S2. Absent: diastolic murmur, gallop, rubs, systolic murmur - GI/Abdominal GI/Abdominal exam: Present: soft Additional comments: Lower abdominal skin lesions with necrotic center with wound packing, associated with surrounding erythema and tenderness. Lesions extent to the upper thigh - Extremities Exam Extremities exam: Absent: pedal edema - Neurological Exam Neurological exam: Present: alert, CN II-XII intact, oriented X3, no focal deficits. Absent: pronater drift, facial droop, speech deficit - Skin Skin exam: Present: dry, rash. Absent: intact Internal Medicine: Result - Labs CBC & Chem 7: 01/15/18 05:35 01/15/18 05:35 Labs: Short CBC 01/15/18 Range/Units 05:35 WBC 24.1 H (4.3-11.1) K/mcL Hgb 7.0 L (11.5-15.4) g/dL Hct 21.4 L (35.3-44.9) % Plt Count 206 (140-400) K/mcL Neutrophils # 20.2 H (1.6-8.9) K/mcL BMP 01/15/18 05:35 Sodium 136 Potassium 4.8 D Chloride 89 L Carbon Dioxide 20 L BUN 77 H Creatinine 10.69 H Glucose 95 Calcium 6.3 L - ABG Interpretation ABG results: PT/INR, D-dimer PT 37.8 Seconds (9.4-12.1) H 01/06/18 18:09 - VTE Reasons for not Prescribing Prophylaxis: Medical contraindication Consult Discharge Plan - Plan Referrals: Peter Vicente DO [Primary Care Provider] - 01/24/18 10:00 am (Please follow up as schedule...with Dr. Yang)
--- NOTE | 2018-01-15 11:16 | Gastroenterology Consult Note ---
Date of Encounter: 01/15/18 Time of Encounter: 10:10 - Assessment and plan (1) Anemia Current Visit: No Status: Acute Assessment and plan: Hgb on admission was 7.7 which dropped to 6.4, this AM Hgb 7. On 09/25/2017 Hgb 11. She received PRBC on 01/07 and 01/08. Continue to monitor CBC and transfuse PRBC as needed. Plan for EGD and colonoscopy tomorrow. Clear liquid diet today, no red or purple. NPO at midnight. If not clear by 6 AM, give 2 tap water enemas. Qualifiers: Other causes of anemia: chronic disease, other Qualified Code(s): D63.8 - Anemia in other chronic diseases classified elsewhere (2) Fecal occult blood test positive Current Visit: Yes Status: Acute Assessment and plan: Plan for EGD and colonoscopy tomorrow. (3) ESRD (end stage renal disease) Current Visit: Yes Status: Chronic Assessment and plan: Management per Nephrology. - Time Spent With Patient Total time spent is greater than 50% in coordination of care (as documented) at patient's floor/unit and/or counseling patient: GI History of Present Illness - Data of Consult Patient: new to practice Consult date: 01/15/18 Requesting Physician: Parviz Sanchez MD - Consult Narrative Reason for consult: Anemia, FOBT + History of present illness: Ms. Alexis is a 42 year old female with PMHx of ESRD on hemodialysis MWF, Afib on Coumadin, DM, HLD, HTN who presented to the ED with skin lesions that have worsened over the past month. Punch biopsy noted for concern for vasculitis, Nephrology and Dermatology feel as though presentation more consistent with calciphylaxis. She reports subjective relief in her symptoms since receiving sodium thiosulfate. We were consulted to evaluate her anemia. Hgb on admission was 7.7 which dropped to 6.4, this AM Hgb 7. On 09/25/2017 Hgb 11. She received PRBC on 01/07 and 01/08. Procedures: EGD 11/28/2008 Dr. Chang: Gastritis, H pylori negative. Colonoscopy 11/28/2008 Dr. Chang: Minimal inflammation, no IBD or microscopic colitis. NSAIDs: None Anticoagulation: Coumadin Past Med Surg Social Fam HX - Past Medical History Medical history: asthma, atrial fibrillation, diabetes, GI bleed, hyperlipidemia , hypertension, renal disease, thyroid disease Additional medical history: ANEMIA, BLEEDING ULCER,. KIDNEY DIALYSIS Psychiatric history: no psych history - Past Surgical History Surgical History: appendectomy, cholecystectomy, thyroidectomy, other Additional surgical history: KIDNEY TRANSPLANT 2008, TUBAL LIGATION, shunt danya - Social History Smoking Status: Never smoker Smokeless Tobacco Status: No Alcohol use: none Drug use: none - Gastrointestinal Gastrointestinal: Present: as per HPI - Constitutional Constitutional: as per HPI - EENT Eyes: as per HPI Ears: Present: as per HPI Nose, mouth and throat: Present: as per HPI - Cardiovascular Cardiovascular ROS: Present: as per HPI - Respiratory Respiratory IM: Present: as per HPI - Genitourinary Genitourinary: Absent: change in color, Urinary frequency - Neurological ROS Neurological GI: Present: as per HPI - Hematologic/Lymphatic Hematologic/Lymphatic pediatric: Present: as per HPI - Musculoskeletal Musculoskeletal ROS GI: Present: as per HPI - Integumentary Integumentary GI: Present: as per HPI - Psychiatric ROS Psychiatric GI: Present: as per HPI - Endocrine Endocrine IM: Present: as per HPI - Constitutional Vitals: Temp Pulse Resp BP Pulse Ox 98.4 F 76 20 135/69 91 01/15/18 07:56 01/15/18 07:56 01/15/18 07:56 01/15/18 07:56 01/15/18 07:56 General appearance: Present: cooperative, A&O X 3, no acute distress, answers questions appropriately - Head Head exam: Present: atraumatic, normocephalic - Eye Eye exam: Present: normal appearance, sclera anicteric - ENT ENT exam: Present: mucous membranes moist - Neck Neck exam general surgery: Present: normal inspection, trachea midline - Respiratory Respiratory exam: Present: CTAB. Absent: rales, rhonchi - Cardiovascular Cardiovascular exam: Present: RRR, +S1, +S2 - GI/Abdominal GI/Abdominal exam: Present: soft, tenderness, no peritoneal signs. Absent: distended, firm, guarding Additional comments: several necrotic lesions with occasional purulent areas - Rectal Rectal exam: Present: deferred - Extremities Exam Extremities exam: Present: warm - Neurological Exam Neurological exam: Present: no focal deficits - Psychiatric Psychiatric exam: Present: normal affect, normal mood - Skin Skin exam: Present: dry, intact, normal color, warm Results - Labs CBC & Chem 7: 01/15/18 05:35 01/15/18 05:35 Labs: Last Result ESR 47 mm/hr (0-15) H 01/06/18 18:09 Calcium 6.3 mg/dL (8.6-10.3) L 01/15/18 05:35 Iron 35 mcg/dL (50-170) L 01/07/18 03:17 % Saturation TNP 01/07/18 03:17 Transferrin < 75 mg/dL (203-362) L 01/07/18 03:17 Ferritin > 1500 ng/mL (10-120) H 01/07/18 03:17 Triglycerides 112 mg/dL (< 150) 01/07/18 03:17 Stool Occult Blood Positive (Negative) A 01/14/18 00:01 Entire Visit Hgb 7.0 g/dL (11.5-15.4) L 01/15/18 05:35 Hct 21.4 % (35.3-44.9) L 01/15/18 05:35 PT 37.8 Seconds (9.4-12.1) H 01/06/18 18:09 Ferritin > 1500 ng/mL (10-120) H 01/07/18 03:17 Total Bilirubin 0.3 mg/dL (0.3-1.0) 01/08/18 06:10 AST 10 Units/L (13-39) L 01/08/18 06:10 ALT 13 Units/L (7-52) 01/08/18 06:10 - ABG ABG results: PT/INR, D-dimer PT 37.8 Seconds (9.4-12.1) H 01/06/18 18:09 Consult Discharge Plan - Plan Referrals: Peter Vicente DO [Primary Care Provider] - 01/24/18 10:00 am (Please follow up as schedule...with Dr. Yang)
[2018-01-15] MEDS: amLODIPine 5 MG TABLET PO SCH (12:13)
--- NOTE | 2018-01-15 12:31 | Nephrology Progress Note ---
Date of Encounter: 01/15/18 Time of Encounter: 11:30 - Assessment and Plan (1) Calciphylaxis Current Visit: Yes Status: Acute continue sodium thiosufate to be given after HD -w- Aggressive wound care advised Continue pain management (2) ESRD on hemodialysis Current Visit: Yes Status: Acute Will continue HD m-w- and if successful, will ararnge PD catheter removal once pt agrees Will need outpatient HD arranged, discussed with social worker psychiatric (3) Leukocytosis Current Visit: Yes Status: Acute Improving on abx wound cx showing GNR Qualifiers: Leukocytosis type: bandemia Qualified Code(s): D72.825 - Bandemia (4) Anemia Current Visit: No Status: Acute hgb low at 7.0 despite aranesp, will transfuse 2 units pRBCs GI workup per primary team Qualifiers: Other causes of anemia: chronic disease, other Qualified Code(s): D63.8 - Anemia in other chronic diseases classified elsewhere Subjective Interval history: Pt seen and examined on HD awaiting cannulation attempt, a little difficulty noted. Pt upset about possible PD catheter removal and wants to think about it. Objective - Vital Signs Vital signs: Vital Signs Temp Pulse Resp BP Pulse Ox 01/15/18 11:51 97.2 F L 60 16 111/64 01/15/18 11:36 97.3 F L 62 18 108/52 01/15/18 07:56 98.4 F 76 20 135/69 91 01/15/18 03:26 98.1 F 72 17 129/73 92 01/14/18 23:42 99.1 F 70 17 121/69 91 01/14/18 21:15 16 91 01/14/18 20:12 99.3 F 66 17 106/65 91 01/14/18 16:11 98.9 F 68 19 111/60 93 Intake and Output 01/14/18 01/15/18 01/15/18 23:59 07:59 15:59 Intake Total 290 / 290 100 / 100 940 / 940 Output Total 0 / 0 Balance 290 / 290 100 / 100 940 / 940 Intake: IV Fluids 100 / 100 Zosyn 3.375 GM In 0.9 % Sodium 100 / 100 Chloride (Mini-Bag +) 100 ML @ 25 mls/hr IVPB Q12HR OSMAR Rx#: [id number] Oral 290 / 290 240 / 240 Blood Product 700 / 700 Rbcs Leuko Poor As-3 2nd Unit 700 / 700 [id number] Output: Urine 0 / 0 Other: Meal Dinner Breakfast Percent of Meal Consumed 25% 10% Weight 87.1 kg - General Appearance General appearance: Present: chronically ill (NAD) EENT: Present: ATNC, mucous membranes moist Neck: Present: no JVD, supple Respiratory: Present: clear Cardiology: Present: no edema, normal S1, normal S2 Dialysis Vascular Access: Arteriovenous Fistula thrill: Yes bruit: Yes Additional Comments: PD catheter with no drainage Gastrointestinal: Present: tenderness, no guarding, obese (several necrotic lesions) Integumentary: Present: warm and dry Neurologic: Present: no focal deficit Musculoskeletal: Present: no deformities Psychiatric: Present: mood/affect appropriate - Lab 01/16/18 04:20 01/16/18 04:20 Most recent lab results Calcium 6.3 mg/dL (8.6-10.3) L 01/15/18 05:35 Phosphorus 3.9 mg/dL (2.7-4.5) 01/10/18 04:07 Magnesium 2.0 mg/dL (1.6-2.6) 01/10/18 04:07 - VTE Reasons for not Prescribing Prophylaxis: Medical contraindication Consult Discharge Plan - Plan Referrals: Roma Salgado MD [Partnered Physician] - 01/22/18 12:40 pm Peter Vicente DO [Primary Care Provider] - 01/24/18 10:00 am (Please follow up as schedule...with Dr. Yang)
[2018-01-15] MEDS ORDERED: Vancomycin 500 MG in 0.9 % Sodium Chloride Mini Bag 100 ML IVPB ONE (16:00)
[2018-01-15] MEDS: Pantoprazole 40 MG VIAL IVP SCH (16:55)
[2018-01-15] MEDS: Sodium Thiosulfate 25 GM in EMPTY BAG 1 EACH IVPB SCH (16:55)
[2018-01-15] MEDS ORDERED: Polyethylene Glycol 3350 255 GM POWDER PO ONE (17:00)
[2018-01-16] MEDS: *HR* HYDROcodone/Acet 10/325 mg TABLET PO PRN ×4 (00:57→22:52)
[2018-01-16] MEDS: *HR* FentaNYL (PF) 100 MCG/2 ML VIAL IVP PRN (04:29)
[2018-01-16] MEDS: Pantoprazole 40 MG VIAL IVP SCH ×2 (04:29→17:51)
[2018-01-16 04:33] LABS: Basophils % 0.1 %; Eosinophils # 0.1 K/mcL (0.0-0.6); Eosinophils % 0.4 %; Hematocrit 26.2 % (35.3-44.9); Hemoglobin 8.9 g/dL (11.5-15.4); Immature Granulocytes % 3.2 % (0-4); Lymphocytes # 1.5 K/mcL (0.6-4.6); Lymphocytes % 6.9 %; Mean Corpuscular Hemoglobin 32.1 pg (28.0-33.3); Mean Corpuscular Volume 94.6 fL (83.0-100.0); Mean Platelet Volume 10.8 fL (9.4-12.4); Monocytes # 2.3 K/mcL (0.0-1.3); Monocytes % 10.4 %; Neutrophils # 17.7 K/mcL (1.6-8.9); Platelet Count 236 K/mcL (140-400); Red Blood Count 2.77 M/mcL (3.82-4.97); Red Cell Distribution Width 19.7 % (11.5-14.5)
[2018-01-16 04:53] LABS: Calcium 6.8 mg/dL (8.6-10.3); Potassium 3.8 mEq/L (3.5-5.1)
[2018-01-16] MEDS: Piperacillin/Tazobactam 3.375 GM in 0.9 % Sodium Chloride Mini Bag 100 ML IVPB SCH ×2 (06:16→17:51)
--- NOTE | 2018-01-16 06:27 | Electrocardiograph Report ---
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
--- NOTE | 2018-01-16 06:27 | Electrocardiograph Report ---
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
[2018-01-16] MEDS: Budesonide/Formoterol 160/4.5 MDI IH SCH ×2 (07:39→19:56)
--- NOTE | 2018-01-16 07:59 | Internal Med Progress Note ---
Date of Encounter: 01/16/18 Time of Encounter: 11:00 - Assessment and plan (1) GI bleed Current Visit: Yes Status: Suspected Assessment and plan: Suspected gastrointestinal bleed due to acute on chronic blood loss anemia in a patient with prior history of bleeding duodenal ulcers, and on Coumadin. Patient has not been on Coumadin since admission due to suspicion of Coumadin- induced necrosis as well as calciphylaxis. Gastroenterology and patient for endoscopy today Qualifiers: GI bleed type/associated pathology: unspecified gastrointestinal hemorrhage type Qualified Code(s): K92.2 - Gastrointestinal hemorrhage, unspecified (2) Leukocytosis Current Visit: Yes Status: Acute Assessment and plan: Leukocytosis improving She currently has multiple abdominal wounds that are foul smelling Continue Vanco and Zosyn-Day 5 Wound culture with GNR, final sensitivity pending Blood culture on admission negative, repeat blood culture preliminary negative Surgery consulted for abdominal and appreciate recommendations Qualifiers: Leukocytosis type: bandemia Qualified Code(s): D72.825 - Bandemia (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 (4) ESRD (end stage renal disease) Current Visit: Yes Status: Chronic Assessment and plan: Nephrology following with recommendations for hemodialysis as above (5) Chronic kidney disease-mineral and bone disorder Current Visit: Yes Status: Acute (6) Coumarin-induced necrosis Current Visit: Yes Status: Suspected Assessment and plan: suspected, patient has been on coumadin for several years Continue wound dressing Coumadin has been held since admission, due to acute anemia on presentation Dermatology also following and appreciate recommendations (7) DVT prophylaxis Current Visit: Yes Status: Acute Assessment and plan: SCDs - Time Spent With Patient Total time spent is greater than 50% in coordination of care (as documented) at patient's floor/unit and/or counseling patient: - Subjective Interval history: Patient scheduled for EGD today per GI - Constitutional Vitals: Temp Pulse Resp BP Pulse Ox 98.7 F 68 20 136/76 99 01/16/18 04:03 01/16/18 04:03 01/16/18 07:40 01/16/18 04:03 01/16/18 07:40 General appearance: Present: A&O X 3, pleasant, no acute distress, obese - Respiratory Respiratory exam: Present: CTAB. Absent: accessory muscle use, rales, rhonchi, wheezes - Cardiovascular Cardiovascular exam: Present: RRR, +S1, +S2. Absent: diastolic murmur, gallop, rubs, systolic murmur - Skin Additional comments: Necrotic areas of skin on abdomen Internal Medicine: Result - Labs CBC & Chem 7: 01/16/18 04:20 01/16/18 04:20 Labs: Short CBC 01/16/18 Range/Units 04:20 WBC 22.4 H (4.3-11.1) K/mcL Hgb 8.9 L D (11.5-15.4) g/dL Hct 26.2 L (35.3-44.9) % Plt Count 236 (140-400) K/mcL Neutrophils # 17.7 H (1.6-8.9) K/mcL BMP 01/16/18 04:20 Sodium 140 Potassium 3.8 Chloride 89 L Carbon Dioxide 18 L BUN 47 H Creatinine 7.28 H Glucose 86 Calcium 6.8 L - ABG Interpretation ABG results: PT/INR, D-dimer PT 37.8 Seconds (9.4-12.1) H 01/06/18 18:09 - VTE Reasons for not Prescribing Prophylaxis: Medical contraindication Consult Discharge Plan - Plan Referrals: Roma Salgado MD [Partnered Physician] - 01/22/18 12:40 pm Peter Vicente DO [Primary Care Provider] - 01/24/18 10:00 am (Please follow up as schedule...with Dr. Yang)
[2018-01-16] MEDS: hydrALAZINE 25 MG TABLET PO SCH ×2 (08:47→22:51)
[2018-01-16] MEDS: *HR* Amiodarone 200 MG TABLET PO SCH (08:59)
[2018-01-16] MEDS: Metoprolol XL (24 HR) Succ 25 MG TAB.ER.24H PO SCH (08:59)
--- NOTE | 2018-01-16 10:05 | Nephrology Progress Note ---
Date of Encounter: 01/16/18 Time of Encounter: 10:00 - Assessment and Plan (1) Calciphylaxis Current Visit: Yes Status: Acute continue sodium thiosufate to be given after HD -w- Aggressive wound care advised Continue pain management (2) ESRD on hemodialysis Current Visit: Yes Status: Acute Will continue HD m-w- and arrange PD catheter removal with Dr simmons as soon as possible Will need outpatient HD arranged, discussed with licensed clinical social worker (3) Leukocytosis Current Visit: Yes Status: Acute Improving on abx wound cx showing GNR Qualifiers: Leukocytosis type: bandemia Qualified Code(s): D72.825 - Bandemia (4) Anemia Current Visit: No Status: Acute hgb improved at 8.9 after transfusion 2 units pRBCs GI workup per primary team Qualifiers: Other causes of anemia: chronic disease, other Qualified Code(s): D63.8 - Anemia in other chronic diseases classified elsewhere Subjective Interval history: Pt seen and examined s/p HD yesterday which she cut short as she was in pain and apparently did not receive pain meds. Pt still in lots of pain, seen by wound care nurse this am. Pt now agreeable to PD catheter removal, will arrange. Objective - Vital Signs Vital signs: Vital Signs Temp Pulse Resp BP Pulse Ox 01/16/18 08:08 98.4 F 72 18 134/75 97 01/16/18 07:40 20 99 01/16/18 04:03 98.7 F 68 17 136/76 94 01/16/18 00:22 98.3 F 66 18 126/70 94 01/15/18 20:41 16 91 01/15/18 19:48 98.3 F 72 17 124/76 95 01/15/18 16:12 98.5 F 75 18 115/63 95 01/15/18 15:00 18 138/91 01/15/18 14:05 158/94 01/15/18 13:55 97.2 F L 80 17 122/56 01/15/18 13:50 127/46 01/15/18 13:40 97.1 F L 140 18 118/54 01/15/18 13:35 116/48 01/15/18 13:25 97.2 F L 110 20 119/46 01/15/18 13:20 120/52 01/15/18 13:05 131/64 01/15/18 12:50 112/57 01/15/18 12:35 119/76 01/15/18 12:20 97.3 F L 88 18 149/59 01/15/18 12:05 111/59 01/15/18 11:51 97.2 F L 60 16 111/64 01/15/18 11:50 121/59 01/15/18 11:36 97.3 F L 62 18 108/52 01/15/18 11:35 119/46 01/15/18 11:20 97.4 F L 18 123/47 Intake and Output 01/15/18 01/16/18 01/16/18 23:59 07:59 15:59 Intake Total 0 / 0 100 / 100 Balance 0 / 0 100 / 100 Intake: IV Fluids 100 / 100 Zosyn 3.375 GM In 0.9 % Sodium 100 / 100 Chloride (Mini-Bag +) 100 ML @ 25 mls/hr IVPB Q12HR [facility] Rx#: [id number] Oral 0 / 0 Other: Meal Dinner Percent of Meal Consumed 50% - General Appearance General appearance: Present: chronically ill (NAD) EENT: Present: ATNC, mucous membranes moist Neck: Present: no JVD, supple Respiratory: Present: clear (ant bilat) Cardiology: Present: no edema, normal S1, normal S2 Dialysis Vascular Access: Arteriovenous Fistula thrill: Yes bruit: Yes Additional Comments: PD catheter with no drainage Gastrointestinal: Present: no tenderness, no guarding, obese (several necrotic lesion on abdomen and upper thighs, right sided lower abdominal with pus) Integumentary: Present: warm and dry Neurologic: Present: no focal deficit Musculoskeletal: Present: no deformities Psychiatric: Present: mood/affect appropriate - Lab 01/16/18 04:20 01/16/18 04:20 Most recent lab results Calcium 6.8 mg/dL (8.6-10.3) L 01/16/18 04:20 Phosphorus 3.9 mg/dL (2.7-4.5) 01/10/18 04:07 Magnesium 2.0 mg/dL (1.6-2.6) 01/10/18 04:07 - VTE Reasons for not Prescribing Prophylaxis: Medical contraindication Consult Discharge Plan - Plan Referrals: Roma Salgado MD [Partnered Physician] - 01/22/18 12:40 pm Peter Vicente DO [Primary Care Provider] - 01/24/18 10:00 am (Please follow up as schedule...with Dr. Yang)
--- NOTE | 2018-01-16 12:07 | General Surgery Consult Note ---
Date of Encounter: 01/16/18 Time of Encounter: 12:10 Assessment and Plan (1) ESRD (end stage renal disease) Current Visit: Yes Status: Chronic NPO after midnight Plan for removal of PD catheter 01/17/[address] Ramírez Hemodialysis management per nephrology team (2) Calciphylaxis Current Visit: Yes Status: Acute Local wound care management: Cleanse wounds to abdomen and right thigh with soap and water and pat dry daily , Apply santyl nickel thick to necrotic areas, cover with 4X4 lightly moistened with 0.9NS, cover with ABD pads and tape to secure BID History of Present Illness Consult date: 01/16/18 Reason for consult: other (Removal of PD catheter) Requesting physician: Saran Wei History of present illness: Ms. Alexis is a 42 year old female with a history of chronic kidney disease. She has been using peritoneal dialysis since August and Hemodialysis prior to that. She states that she began to develop wounds approximately 1 month ago. They are concentrated across her lower abdomen and she has 1 wound on her right thigh. She states that the wounds have progressed since that time. They are extremely painful. Biopsies have been completed per dermatology. She is being treated for calciphylaxis. She has resumed hemodialysis at this time. We have been asked to see and evaluate the patient for removal of her peritoneal dialysis catheter. Past Med Surg Social Fam HX - Past Medical History Source: patient, old records reviewed Medical history: asthma, atrial fibrillation, diabetes, GI bleed, hyperlipidemia , hypertension, renal disease, thyroid disease Additional medical history: ANEMIA, BLEEDING ULCER,. KIDNEY DIALYSIS Psychiatric history: no psych history - Past Surgical History Surgical History: appendectomy, cholecystectomy, thyroidectomy, transplant ( kidney), other (endoscopy) Additional surgical history: KIDNEY TRANSPLANT 2007, TUBAL LIGATION, shunt danya - Social History Smoking Status: Never smoker Smokeless Tobacco Status: No Alcohol use: none Drug use: none Medications and Allergies Albuterol Sulfate [Albuterol Inhaler] 2 puff IH Q4H PRN 09/09/16 [History] Amiodarone [Cordarone] 200 mg PO DAILY 09/09/16 [History] Atorvastatin [Lipitor] 40 mg PO HS 09/09/16 [History] Budesonide/Formoterol 160/4.5 [Symbicort 160/4.5] 2 puff IH BIDR 09/09/16 [ History] Ipratropium/Albuterol Neb [Duoneb] 3 ml IH QID PRN 09/09/16 [History] Levothyroxine Sodium [Synthroid] 200 mcg PO QAM 09/09/16 [History] Omeprazole [PriLOSEC] 20 mg PO DAILY 09/09/16 [History] cloNIDine HCl [Clonidine HCl] 0.1 mg PO TID 09/09/16 [History] hydrALAZINE [HydrALAZINE] 50 mg PO BID 09/09/16 [History] predniSONE [PredniSONE] 10 mg PO DAILY 09/09/16 [History] Acetaminophen [Acetaminophen ER] 650 mg PO Q4H PRN 12/23/16 [History] Diphenoxylate/Atropine [Lomotil 2.5 mg/0.025 mg] 1 each PO Q4H PRN 12/23/16 [ History] Montelukast [Singulair] 10 mg PO DAILY 02/16/17 [History] Amlodipine Besylate [Amlodipine Besylate] 5 mg PO BID 01/07/18 [History] Folic Acid [Folic Acid] 1 mg PO DAILY 01/07/18 [History] Metoprolol Succinate [Toprol Xl] 25 mg PO DAILY 01/07/18 [History] Potassium Chloride 20 meq PO DAILY 01/07/18 [History] Warfarin [Coumadin] 1 mg PO TUTH 01/07/18 [History] Warfarin [Coumadin] 2 mg PO WE 01/07/18 [History] 3 Allergy/AdvReac Type Severity Reaction Status Date / Time heparin Allergy See Verified 01/07/18 13:14 Comments Review of Systems All systems PM: Limited ROS as listed in the HPI General Surgery Exam Initial Vital Signs Temp Pulse Resp BP Pulse Ox 97.8 F 94 18 113/75 92 01/06/18 16:51 01/06/18 16:51 01/06/18 16:51 01/06/18 16:51 01/06/18 16:51 - General physical appearance well developed, moderate pain, chronically ill, obese - Eyes normal ocular movement - ENT normal mucosa, atraumatic, normocephalic - Neck trachea midline - Respiratory normal respiratory effort, clear to auscultation - Cardiovascular Cardiovascular exam: Present: irregular rhythm - Abdomen Abdomen general surgery: Present: bowel sounds present, soft, tender ( associated with multiple wounds- calciphylaxis), wound (wounds with necrosis noted across lower abdomen and right thigh- no surrounding erythema or induration) - Integumentary Integumentary general surgery: Present: other (multiple areas of skin necrosis noted across lower abdomen and 1 area noted on right thigh- no surrounding erythema or induration, drainage consistent with tissue necrosis) - Psychiatric Psychiatric general surgery: Present: appropriate, oriented to person, oriented to place, oriented to time, speech is normal, memory intact Exam Initial Vital Signs Temp Pulse Resp BP Pulse Ox 97.8 F 94 18 113/75 92 01/06/18 16:51 01/06/18 16:51 01/06/18 16:51 01/06/18 16:51 01/06/18 16:51 Results - Labs 01/16/18 04:20 01/16/18 04:20 Abnormal lab results WBC 22.4 K/mcL (4.3-11.1) H 01/16/18 04:20 RBC 2.77 M/mcL (3.82-4.97) L 01/16/18 04:20 Hgb 8.9 g/dL (11.5-15.4) L D 01/16/18 04:20 Hct 26.2 % (35.3-44.9) L 01/16/18 04:20 RDW 19.7 % (11.5-14.5) H 01/16/18 04:20 Neutrophils # 17.7 K/mcL (1.6-8.9) H 01/16/18 04:20 Monocytes # 2.3 K/mcL (0.0-1.3) H 01/16/18 04:20 Nucleated RBCs/100 WBC 0.1 /100 WBC (0) H 01/11/18 04:56 Toxic Granulation Present (Not Present) A 01/12/18 04:40 Toxic Vacuolation Present (Not Present) A 01/12/18 04:40 Anisocytosis 1+ (Not Present) A 01/12/18 04:40 ESR 47 mm/hr (0-15) H 01/06/18 18:09 PT 37.8 Seconds (9.4-12.1) H 01/06/18 18:09 APTT 47.8 Seconds (26.0-36.0) H 01/06/18 18:09 Functional Protein C 22 % (83-168) L 01/11/18 14:23 Chloride 89 mEq/L (98-107) L 01/16/18 04:20 Carbon Dioxide 18 mEq/L (23-29) L 01/16/18 04:20 BUN 47 mg/dL (6-20) H 01/16/18 04:20 Creatinine 7.28 mg/dL (0.60-1.20) H 01/16/18 04:20 Est GFR ( Amer) 7 (> 60) L 01/16/18 04:20 Est GFR (Non-Af Amer) 6 (> 60) L 01/16/18 04:20 Calculated Osmolality 302 (280-300) H 01/16/18 04:20 Calcium 6.8 mg/dL (8.6-10.3) L 01/16/18 04:20 Iron 35 mcg/dL (50-170) L 01/07/18 03:17 Transferrin < 75 mg/dL (203-362) L 01/07/18 03:17 Ferritin > 1500 ng/mL (10-120) H 01/07/18 03:17 AST 10 Units/L (13-39) L 01/08/18 06:10 Alkaline Phosphatase 155 Units/L (34-104) H 01/08/18 06:10 Albumin 2.4 g/dL (3.5-5.7) L 01/08/18 06:10 Globulin 4.3 g/dL (2.4-3.5) H 01/08/18 06:10 Albumin/Globulin Ratio 0.6 (1.1-2.2) L 01/08/18 06:10 HDL Cholesterol 15 mg/dL (40-59) L 01/07/18 03:17 PTH Related Peptide 7.3 pmol/L (0.0-3.4) H 01/06/18 20:29 Stool Occult Blood Positive (Negative) A 01/14/18 00:01 Diabetes panel 01/16/18 Range/Units 04:20 Sodium 140 (136-145) mEq/L Potassium 3.8 (3.5-5.1) mEq/L Chloride 89 L (98-107) mEq/L Carbon Dioxide 18 L (23-29) mEq/L BUN 47 H (6-20) mg/dL Creatinine 7.28 H (0.60-1.20) mg/dL Glucose 86 (70-105) mg/dL Calcium 6.8 L (8.6-10.3) mg/dL Calcium panel 01/16/18 Range/Units 04:20 Calcium 6.8 L (8.6-10.3) mg/dL Pituitary panel 01/16/18 Range/Units 04:20 Sodium 140 (136-145) mEq/L Potassium 3.8 (3.5-5.1) mEq/L Chloride 89 L (98-107) mEq/L Carbon Dioxide 18 L (23-29) mEq/L BUN 47 H (6-20) mg/dL Creatinine 7.28 H (0.60-1.20) mg/dL Glucose 86 (70-105) mg/dL Calcium 6.8 L (8.6-10.3) mg/dL Adrenal panel 01/16/18 Range/Units 04:20 Sodium 140 (136-145) mEq/L Potassium 3.8 (3.5-5.1) mEq/L Chloride 89 L (98-107) mEq/L Carbon Dioxide 18 L (23-29) mEq/L BUN 47 H (6-20) mg/dL Creatinine 7.28 H (0.60-1.20) mg/dL Glucose 86 (70-105) mg/dL Calcium 6.8 L (8.6-10.3) mg/dL All other labs normal. Consult Discharge Plan - Plan Referrals: Roma Salgaod MD [Partnered Physician] - 01/22/18 12:40 pm Peter Vicente DO [Primary Care Provider] - 01/24/18 10:00 am (Please follow up as schedule...with Dr. Yang) - Attending Attestation For this encounter, I have reviewed the PROFESSOR OF PRACTICE or PA documentation, treatment plan, and medical decision making; and I have had face to face time with this patient.
[2018-01-16] MEDS ORDERED: *HR* Propofol 200 MG/20 ML VIAL IVP ONE (13:13)
[2018-01-16] MEDS ORDERED: Lidocaine -MPF 2% 2 ML VIAL ONE (13:13)
--- NOTE | 2018-01-16 13:52 | Anesthesia Evaluation PreOp ---
Date of Encounter: 01/16/18 Time of Encounter: 13:49 - Past History Planned Operation: EGD Cardiac History: HTN, Hyperlipidemia, Arrhythmia (H/O A-fib) Pulmonary History: Asthma WELDER GUN History: Denies Any Significant HX Other Medical History: Renal (ESRD on dialysis MWF), Diabetes Type II, Thyroid, GERD, Other (GI bleed) Anesthesia History: No Prior Anesthetic Complications, Past Anesthesia (S/P kidney transplant in 2007) Alcohol Use: none Drug use: none Medications and Allergies Albuterol Sulfate [Albuterol Inhaler] 2 puff IH Q4H PRN 09/09/16 [History] Amiodarone [Cordarone] 200 mg PO DAILY 09/09/16 [History] Atorvastatin [Lipitor] 40 mg PO HS 09/09/16 [History] Budesonide/Formoterol 160/4.5 [Symbicort 160/4.5] 2 puff IH BIDR 09/09/16 [ History] Ipratropium/Albuterol Neb [Duoneb] 3 ml IH QID PRN 09/09/16 [History] Levothyroxine Sodium [Synthroid] 200 mcg PO QAM 09/09/16 [History] Omeprazole [PriLOSEC] 20 mg PO DAILY 09/09/16 [History] cloNIDine HCl [Clonidine HCl] 0.1 mg PO TID 09/09/16 [History] hydrALAZINE [HydrALAZINE] 50 mg PO BID 09/09/16 [History] predniSONE [PredniSONE] 10 mg PO DAILY 09/09/16 [History] Acetaminophen [Acetaminophen ER] 650 mg PO Q4H PRN 12/23/16 [History] Diphenoxylate/Atropine [Lomotil 2.5 mg/0.025 mg] 1 each PO Q4H PRN 12/23/16 [ History] Montelukast [Singulair] 10 mg PO DAILY 02/16/17 [History] Amlodipine Besylate [Amlodipine Besylate] 5 mg PO BID 01/07/18 [History] Folic Acid [Folic Acid] 1 mg PO DAILY 01/07/18 [History] Metoprolol Succinate [Toprol Xl] 25 mg PO DAILY 01/07/18 [History] Potassium Chloride 20 meq PO DAILY 01/07/18 [History] Warfarin [Coumadin] 1 mg PO TUTH 01/07/18 [History] Warfarin [Coumadin] 2 mg PO WE 01/07/18 [History] 3 Allergy/AdvReac Type Severity Reaction Status Date / Time heparin Allergy See Verified 01/07/18 13:14 Comments - Meds/Allergy Pre-op Review Medications Reviewed: Yes Allergies Reviewed: Yes Beta Blockers on Current Med List: Yes If Beta Blockers taken, Date/Time (Last Dose taken): 01/16/2018 at 0859 Anesthesia Results - Labs 01/16/18 04:20 01/16/18 04:20 Laboratory Tests 01/06/18 18:09 PT 37.8 H INR 3.4 APTT 47.8 H - Imaging EKG: report reviewed (01/15/2018 ATRIAL FIBRILLATION WITH RAPID VENTRICULAR RESPONSE ST DEVIATION AND MODERATE T-WAVE ABNORMALITY, CONSIDER LATERAL ISCHEMIA ) Additional studies: 02/27/2017 LEFT HEART CATH Iliofemoral angiography Indications: Abnormal Test - Stress Impressions: There is minimal one vessel coronary artery disease. The left ventricle is normal and has normal contractility EF 65% Recommendations: Optimal medical therapy of patient's disease. Aggressive risk factor modification. 01/31/2017 Stress Impression: There is a small sized, mild intensity stress perfusion defect involving the mid to distal anterior wall in which mild ischemia cannot be ruled out. No appreciable change in pharmacologic ECG during stress. Gated EF = 48%. There is evidence of mild visual TID. Findings communicated to ordering provider. 01/16/2017 Echo Impressions: LVEF 55%. Normal LV chamber size, wall thickness and function. Mild left ventricular diastolic dysfunction. Normal right ventricular structure and function. No evidence of pulmonary hypertension. No significant valvular dysfunction. Anesthesia Exam Vital Signs/O2 Sat, Most Current Temp Pulse Resp BP Pulse Ox 99.2 F 72 19 119/75 95 01/16/18 11:31 01/16/18 11:31 01/16/18 11:31 01/16/18 11:31 01/16/18 11:31 Height: 5'2''/1.57m Weight: 192 lbs/87.1 kg NPO (# of Hours): 8 Pain Scale: 0 Pain Scale Used: Numeric (1 - 10) - HEENT Pupil (Motor): EOMI Mallampati: III Teeth: Normal Oral Opening: Greater than 3 - WELDER GUN LOC: Oriented WELDER GUN Motor: Normal RUE, Normal LUE, Normal RLE, Normal LLE, Normal Face WELDER GUN Sensory: Normal: RUE, LUE, RLE, LLE, Face - Cardiac Rhythm: Irregular Murmur: None - Pulmonary Breath Sounds: bilateral Clear Respiratory Effort: Symmetrical Anesthesia Assess/Plan ASA Score: 4 Modified Sheela Scale for Level of Consciousness: Cooperative, oriented, and tranquil Anesthetic Plan: MAC Monitoring Plan: Standard Monitors
[2018-01-16] MEDS ORDERED: Tetracaine/Benzocaine/Butamben 200MG/SPRAY (100SPY/BOT) MM ONE (14:25)
[2018-01-16] MEDS ORDERED: Simethicone 40 MG/0.6 ML MLS IR ONE (14:25)
[2018-01-16] MEDS: amLODIPine 5 MG TABLET PO SCH (15:18)
[2018-01-16] MEDS: cloNIDine HCl 0.1 MG TABLET PO SCH ×2 (15:18→22:52)
[2018-01-16] MEDS: predniSONE 10 MG TABLET PO SCH (15:22)
[2018-01-17] MEDS: *HR* FentaNYL (PF) 100 MCG/2 ML VIAL IVP PRN ×2 (05:30→23:33)
[2018-01-17] MEDS: Piperacillin/Tazobactam 3.375 GM in 0.9 % Sodium Chloride Mini Bag 100 ML IVPB SCH ×2 (05:30→18:25)
[2018-01-17] MEDS: Pantoprazole 40 MG VIAL IVP SCH ×2 (05:30→17:53)
[2018-01-17 06:03] LABS: INR 2.4; Prothrombin Time 27.5 Seconds (9.4-12.1)
[2018-01-17] MEDS: amLODIPine 5 MG TABLET PO SCH (07:21)
[2018-01-17] MEDS: cloNIDine HCl 0.1 MG TABLET PO SCH ×2 (07:21→23:40)
[2018-01-17] MEDS: hydrALAZINE 25 MG TABLET PO SCH ×2 (07:21→23:40)
[2018-01-17] MEDS ORDERED: 0.9 % Sodium Chloride 250 ML IVC PRN (07:22)
[2018-01-17] MEDS: *HR* Amiodarone 200 MG TABLET PO SCH (07:25)
[2018-01-17] MEDS: Metoprolol XL (24 HR) Succ 25 MG TAB.ER.24H PO SCH (07:25)
[2018-01-17] MEDS ORDERED: 0.9 % Sodium Chloride 1,000 ML PRIME SCH (07:30)
[2018-01-17] MEDS ORDERED: 0.9 % Sodium Chloride 1,000 ML ONE (07:36)
[2018-01-17 07:44] LABS: Mean Platelet Volume 10.9 fL (9.4-12.4)
[2018-01-17 07:46] LABS: Hematocrit 24.8 % (35.3-44.9); Hemoglobin 8.4 g/dL (11.5-15.4); Mean Corpuscular HGB Conc 33.9 g/dL (31.6-35.5); Mean Corpuscular Hemoglobin 31.8 pg (28.0-33.3); Mean Corpuscular Volume 93.9 fL (83.0-100.0); Platelet Count 257 K/mcL (140-400); Red Blood Count 2.64 M/mcL (3.82-4.97); Red Cell Distribution Width 19.6 % (11.5-14.5)
--- NOTE | 2018-01-17 07:47 | Internal Med Progress Note ---
Date of Encounter: 01/17/18 Time of Encounter: 11:00 - Assessment and plan (1) Wound, open, abdominal wall, anterior Current Visit: Yes Status: Acute Assessment and plan: Patient found to have Pseudomonas and Escherichia coli with ESBL growing in abdominal wound Will discontinue vancomycin and continue IV Zosyn Qualifiers: Qualified Code(s): S31.109A - Unspecified open wound of abdominal wall, unspecified quadrant without penetration into peritoneal cavity, initial encounter (2) Leukocytosis Current Visit: Yes Status: Acute Assessment and plan: Leukocytosis improving; secondary to the above Continue day 6 of IV Zosyn Blood culture on admission negative, repeat blood culture preliminary negative Surgery consulted for abdominal and appreciate recommendations Qualifiers: Leukocytosis type: bandemia Qualified Code(s): D72.825 - Bandemia (3) Acute on chronic blood loss anemia Current Visit: Yes Status: Acute Assessment and plan: Hemoglobin stable status post 4 units of packed red blood cells (4) GI bleed Current Visit: Yes Status: Suspected Assessment and plan: EGD showed gastric ulcers with no active bleeding Qualifiers: GI bleed type/associated pathology: unspecified gastrointestinal hemorrhage type Qualified Code(s): K92.2 - Gastrointestinal hemorrhage, unspecified (5) Calciphylaxis Current Visit: Yes Status: Acute Assessment and plan: Skin biopsy noted for vasculopathy/vasculitis from coumadin skin necrosis vs sepsis Dermatology with recommendations for continued treatment for calciphylaxis till skin biopsy is repeated this week Continue thiosulphaute 3ice weekly Nephrology following with recommendations for continued hemodialysis Continue sevelamer. (6) ESRD (end stage renal disease) Current Visit: Yes Status: Chronic Assessment and plan: Nephrology following with recommendations for hemodialysis as above (7) Chronic kidney disease-mineral and bone disorder Current Visit: Yes Status: Acute (8) Coumarin-induced necrosis Current Visit: Yes Status: Suspected Assessment and plan: suspected, patient has been on coumadin for several years Continue wound dressing Coumadin has been held since admission, due to acute anemia on presentation Dermatology also following and appreciate recommendations (9) DVT prophylaxis Current Visit: Yes Status: Acute Assessment and plan: SCDs - Time Spent With Patient Total time spent is greater than 50% in coordination of care (as documented) at patient's floor/unit and/or counseling patient: - Subjective Interval history: Patient found to have Escherichia coli ESBL and Pseudomonas growing in abdominal wound Appreciate managed for end-stage renal disease by nephrology - Constitutional Vitals: Temp Pulse Resp BP Pulse Ox 98.2 F 68 19 101/65 95 01/17/18 07:33 01/17/18 07:33 01/17/18 07:33 01/17/18 07:33 01/17/18 07:33 General appearance: Present: A&O X 3, pleasant, no acute distress, obese - Respiratory Respiratory exam: Present: CTAB. Absent: accessory muscle use, rales, rhonchi, wheezes Internal Medicine: Result - Labs CBC & Chem 7: 01/17/18 06:51 01/17/18 06:51 - ABG Interpretation ABG results: PT/INR, D-dimer PT 27.5 Seconds (9.4-12.1) H 01/17/18 05:30 - VTE Reasons for not Prescribing Prophylaxis: Medical contraindication Consult Discharge Plan - Plan Referrals: Roma Salgado MD [Partnered Physician] - 01/22/18 12:40 pm Peter Vicente DO [Primary Care Provider] - 01/24/18 10:00 am (Please follow up as schedule...with Dr. Yang)
[2018-01-17 08:04] LABS: Calcium 6.5 mg/dL (8.6-10.3); Potassium 4.3 mEq/L (3.5-5.1)
[2018-01-17] MEDS: *HR* HYDROcodone/Acet 10/325 mg TABLET PO PRN (08:26)
[2018-01-17] MEDS ORDERED: Aminoglycoside Consult 1 EACH MC ONE (08:32)
--- NOTE | 2018-01-17 09:23 | Anesthesia Evaluation PreOp ---
Date of Encounter: 01/17/18 Time of Encounter: 12:00 - Past History Planned Operation: Peritoneal dialysis catheter removal Cardiac History: Arrhythmia (A fib) Pulmonary History: Asthma CLINIC PHYSICIAN History: Denies Any Significant HX Other Medical History: Renal (ESRD), Bleeding (GI bleed), Diabetes Type II, Thyroid, GERD Anesthesia History: No Prior Anesthetic Complications, Past Anesthesia (hx renal transplant) Alcohol Use: none Drug use: none Medications and Allergies Albuterol Sulfate [Albuterol Inhaler] 2 puff IH Q4H PRN 09/09/16 [History] Amiodarone [Cordarone] 200 mg PO DAILY 09/09/16 [History] Atorvastatin [Lipitor] 40 mg PO HS 09/09/16 [History] Budesonide/Formoterol 160/4.5 [Symbicort 160/4.5] 2 puff IH BIDR 09/09/16 [ History] Ipratropium/Albuterol Neb [Duoneb] 3 ml IH QID PRN 09/09/16 [History] Levothyroxine Sodium [Synthroid] 200 mcg PO QAM 09/09/16 [History] Omeprazole [PriLOSEC] 20 mg PO DAILY 09/09/16 [History] cloNIDine HCl [Clonidine HCl] 0.1 mg PO TID 09/09/16 [History] hydrALAZINE [HydrALAZINE] 50 mg PO BID 09/09/16 [History] predniSONE [PredniSONE] 10 mg PO DAILY 09/09/16 [History] Acetaminophen [Acetaminophen ER] 650 mg PO Q4H PRN 12/23/16 [History] Diphenoxylate/Atropine [Lomotil 2.5 mg/0.025 mg] 1 each PO Q4H PRN 12/23/16 [ History] Montelukast [Singulair] 10 mg PO DAILY 02/16/17 [History] Amlodipine Besylate [Amlodipine Besylate] 5 mg PO BID 01/07/18 [History] Folic Acid [Folic Acid] 1 mg PO DAILY 01/07/18 [History] Metoprolol Succinate [Toprol Xl] 25 mg PO DAILY 01/07/18 [History] Potassium Chloride 20 meq PO DAILY 01/07/18 [History] Warfarin [Coumadin] 1 mg PO TUTH 01/07/18 [History] Warfarin [Coumadin] 2 mg PO WE 01/07/18 [History] 3 Allergy/AdvReac Type Severity Reaction Status Date / Time heparin Allergy See Verified 01/07/18 13:14 Comments - Meds/Allergy Pre-op Review Medications Reviewed: Yes Allergies Reviewed: Yes Beta Blockers on Current Med List: Yes If Beta Blockers taken, Date/Time (Last Dose taken): 01-17-18 metoprolol 7:25 Anesthesia Results - Labs 01/17/18 06:51 01/17/18 06:51 - Imaging EKG: report reviewed, image reviewed (ATRIAL FIBRILLATION WITH RAPID VENTRICULAR RESPONSE ST DEVIATION AND MODERATE T-WAVE ABNORMALITY, CONSIDER LATERAL ISCHEMIA) Additional studies: 2016 TTE: Indications: Pre-operation cardiovascular examination, Heart Murmur Impressions: LVEF 55%. Normal LV chamber size, wall thickness and function. Mild left ventricular diastolic dysfunction. Normal right ventricular structure and function. No evidence of pulmonary hypertension. No significant valvular dysfunction. [facility]: Indications: Abnormal Test - Stress Impressions: There is minimal one vessel coronary artery disease. The left ventricle is normal and has normal contractility EF 65% Recommendations: Optimal medical therapy of patient's disease. Aggressive risk factor modification. Anesthesia Exam Last Vital Signs Temp 98.2 F 01/17/18 07:33 Pulse 68 01/17/18 07:33 Resp 19 01/17/18 07:33 BP 101/65 01/17/18 07:33 Pulse Ox 95 01/17/18 07:33 Weight: 87 kg NPO (# of Hours): > 8 hrs - HEENT Pupil (Motor): Pupils equal, EOMI Mallampati: III Teeth: Normal Oral Opening: Greater than 3 - CLINIC PHYSICIAN LOC: Oriented - Cardiac Rhythm: Irregular - Pulmonary Breath Sounds: bilateral Clear Respiratory Effort: Symmetrical Anesthesia Assess/Plan ASA Score: 4 Modified Sheela Scale for Level of Consciousness: Cooperative, oriented, and tranquil Monitoring Plan: Standard Monitors Recovery Plan: PACU
[2018-01-17] MEDS ORDERED: *HR* Midazolam HCl 2 MG/2 ML VIAL ONE (09:41)
[2018-01-17] MEDS ORDERED: *HR* FentaNYL (PF) 100 MCG/2 ML VIAL ONE (09:41)
[2018-01-17] MEDS ORDERED: *HR* Propofol 200 MG/20 ML VIAL IVP ONE (09:41)
[2018-01-17] MEDS ORDERED: *HR* Succinylcholine 200 MG/10 ML VIAL IVP ONE (09:43)
[2018-01-17] MEDS ORDERED: *HR* Heparin 5,000 UNIT/ML VIAL ONE (09:53)
[2018-01-17] MEDS: Budesonide/Formoterol 160/4.5 MDI IH SCH ×2 (10:34→22:11)
--- NOTE | 2018-01-17 11:28 | Nephrology Progress Note ---
Date of Encounter: 01/17/18 Time of Encounter: 11:00 - Assessment and Plan (1) Calciphylaxis Current Visit: Yes Status: Acute continue sodium thiosufate to be given after HD Aggressive wound care advised Continue pain management (2) ESRD on hemodialysis Current Visit: Yes Status: Acute Continue HD with UF as tolerated today. PD catheter removal with Dr simmons tentatively today Will need outpatient HD arranged, discussed with sr. social media & mobile manager (3) Leukocytosis Current Visit: Yes Status: Acute Improving on abx wound cx showing GNR; pesudomonas. proteus and ecoli sensitive to zosyn, tobra and gent et al. Qualifiers: Leukocytosis type: bandemia Qualified Code(s): D72.825 - Bandemia (4) Anemia Current Visit: No Status: Acute hgb fair at 8.4 after transfusion 2 units pRBCs on monday Continue aranesp GI workup per primary team Qualifiers: Other causes of anemia: chronic disease, other Qualified Code(s): D63.8 - Anemia in other chronic diseases classified elsewhere Subjective Interval history: Pt seen and examined on HD today doing well with her pain controlled. Surgery plan to remove PD catheter today per pt and she is agreeable to this. Pt reports abd. lesions cleaned and dressed yesterday Objective - Vital Signs Vital signs: Vital Signs Temp Pulse Resp BP Pulse Ox 01/17/18 08:45 97.8 F 18 130/70 01/17/18 07:33 98.2 F 68 19 101/65 95 01/17/18 03:59 98.9 F 56 16 134/71 93 01/16/18 23:47 98.9 F 71 18 115/71 93 01/16/18 19:56 16 94 01/16/18 19:45 98.3 F 66 18 106/54 94 01/16/18 16:50 98.1 F 66 16 143/79 94 01/16/18 14:24 98.9 F 75 18 123/65 94 01/16/18 11:31 99.2 F 72 19 119/75 95 Intake and Output 01/16/18 01/17/18 01/17/18 23:59 07:59 15:59 Intake Total 100 / 100 600 / 600 Balance 100 / 100 600 / 600 Intake: IV Fluids 100 / 100 Zosyn 3.375 GM In 0.9 % Sodium 100 / 100 Chloride (Mini-Bag +) 100 ML @ 25 mls/hr IVPB Q12HR [facility] Rx#: [id number] Oral 0 / 0 Intake, Rinseback and Flushes 600 / 600 Other: Meal Dinner NPO Percent of Meal Consumed 0% Weight 87.3 kg Hemodialysis Net Fluid Removed 0 (mL) Patient Weight 01/17/18 23:59 Weight 87.3 kg - General Appearance General appearance: Present: chronically ill EENT: Present: ATNC, mucous membranes moist Neck: Present: no JVD, supple Respiratory: Present: clear Cardiology: Present: no edema, normal S1, normal S2 Dialysis Vascular Access: Arteriovenous Fistula thrill: Yes bruit: Yes Gastrointestinal: Present: no tenderness, no guarding, obese (necrotic lesions) Integumentary: Present: warm and dry Neurologic: Present: no focal deficit Musculoskeletal: Present: no deformities Psychiatric: Present: mood/affect appropriate, cooperative - Lab 01/17/18 06:51 01/17/18 06:51 Most recent lab results Calcium 6.5 mg/dL (8.6-10.3) L 01/17/18 06:51 Phosphorus 3.9 mg/dL (2.7-4.5) 01/10/18 04:07 Magnesium 2.0 mg/dL (1.6-2.6) 01/10/18 04:07 - VTE Reasons for not Prescribing Prophylaxis: Medical contraindication Consult Discharge Plan - Plan Referrals: Roma Salgado MD [Partnered Physician] - 01/22/18 12:40 pm Peter Vicente DO [Primary Care Provider] - 01/24/18 10:00 am (Please follow up as schedule...with Dr. Yang)
[2018-01-17] MEDS ORDERED: Lidocaine -MPF 2% 2 ML VIAL ONE (11:38)
[2018-01-17] MEDS ORDERED: Ondansetron 4 MG/2 ML VIAL ONE (12:19)
[2018-01-17] MEDS ORDERED: Dexamethasone 4 MG/ML VIAL ONE (12:19)
[2018-01-17] MEDS ORDERED: *HR* OxyCODONE Immed Rel 5 MG TABLET PO PRN (12:35)
[2018-01-17] MEDS ORDERED: *HR* FentaNYL (PF) 100 MCG/2 ML VIAL IVP PRN (12:35)
[2018-01-17] MEDS ORDERED: *HR* Promethazine 25 MG/ML VIAL IVP PRN (12:35)
--- NOTE | 2018-01-17 12:58 | Operative Note ---
Date of procedure: 01/17/18 Pre-op diagnosis: End-stage renal disease Post-op diagnosis: same Procedure: Removal of peritoneal dialysis catheter Anesthesia: STEVE Surgeon: Neville Ramírez Was there an printing bindery assistant present: No Estimated blood loss (cc): 5 Specimen: 0 Condition: stable Disposition: floor Procedure in Detail: After informed consent, the patient was taken to the operating room placed in the supine position. After adequate sedation and anesthesia the patient's abdomen was prepped and draped. I could not identify the Rodrigo cuff due to the underlying induration just below the skin. A counterincision was made over this area. Dissection was carried down to identify 2 individual Rodrigo cuffs. They were both dissected free. Once fully were excised from the tissues the catheters removed from the intraperitoneal aspect of the abdomen. This enabled us to remove the catheter. Once this was completed the wounds were irrigated and the skin was closed with 3-0 Vicryl suture. Patient tolerated the procedure well ultrashort counts and needle counts are correct in the case.
--- NOTE | 2018-01-17 13:21 | Anesthesia Evaluation Post Op ---
Date of Encounter: 01/17/18 Time of Encounter: 13:20 - Vital Signs Vital Signs: Last Vital Signs Temp 97.4 F L 01/17/18 12:52 Pulse 70 01/17/18 13:12 Resp 20 01/17/18 13:12 BP 108/65 01/17/18 13:12 Pulse Ox 94 01/17/18 13:12 - Lungs Lungs: Clear Ascult./Percussion - Airway Airway: Non-obstructed - Cardiovascular Baseline Rhythm - Mental Status Mental Status: Alert & Oriented, Answers Appropriately - Pain Pain Scale: 4 - Nausea Vomiting Nausea Vomiting: Not Present - Hydration Hydration: Tolerates oral liquids - Discharge PostOp Status: Transfer Patient to floor
[2018-01-17] MEDS: predniSONE 10 MG TABLET PO SCH (14:24)
[2018-01-17] MEDS: Sodium Thiosulfate 25 GM in EMPTY BAG 1 EACH IVPB SCH (17:57)
[2018-01-18] MEDS: *HR* HYDROcodone/Acet 10/325 mg TABLET PO PRN ×2 (02:10→12:55)
[2018-01-18] MEDS: Pantoprazole 40 MG VIAL IVP SCH (06:21)
[2018-01-18] MEDS: Piperacillin/Tazobactam 3.375 GM in 0.9 % Sodium Chloride Mini Bag 100 ML IVPB SCH ×2 (06:22→17:25)
[2018-01-18] MEDS: Budesonide/Formoterol 160/4.5 MDI IH SCH ×2 (07:34→19:55)
--- NOTE | 2018-01-18 08:25 | Internal Med Progress Note ---
Date of Encounter: 01/19/18 Time of Encounter: 11:00 - Assessment and plan (1) Wound, open, abdominal wall, anterior Current Visit: Yes Status: Acute Assessment and plan: Patient found to have Pseudomonas and Escherichia coli with ESBL growing in abdominal wound Patient will be started on gentamicin today and will continue as an outpatient Qualifiers: Encounter type: initial encounter Qualified Code(s): S31.109A - Unspecified open wound of abdominal wall, unspecified quadrant without penetration into peritoneal cavity, initial encounter (2) Leukocytosis Current Visit: Yes Status: Acute Assessment and plan: Leukocytosis continues to improve IV Zosyn will be changed to gentamicin as above Blood culture on admission negative, repeat blood culture preliminary negative Surgery consulted for abdominal and appreciate recommendations Qualifiers: Leukocytosis type: bandemia Qualified Code(s): D72.825 - Bandemia (3) Acute on chronic blood loss anemia Current Visit: Yes Status: Acute Assessment and plan: Hemoglobin stable status post 4 units of packed red blood cells (4) GI bleed Current Visit: Yes Status: Suspected Assessment and plan: EGD showed gastric ulcers with no active bleeding Qualifiers: GI bleed type/associated pathology: unspecified gastrointestinal hemorrhage type Qualified Code(s): K92.2 - Gastrointestinal hemorrhage, unspecified (5) Calciphylaxis Current Visit: Yes Status: Acute Assessment and plan: Skin biopsy noted for vasculopathy/vasculitis from coumadin skin necrosis vs sepsis Dermatology with recommendations for continued treatment for calciphylaxis till skin biopsy is repeated this week Continue thiosulphaute 3ice weekly Nephrology following with recommendations for continued hemodialysis Continue sevelamer. (6) ESRD (end stage renal disease) Current Visit: Yes Status: Chronic Assessment and plan: Nephrology following with recommendations for hemodialysis as above Patient will be discharged after chair time establish for hemodialysis as an outpatient (7) Chronic kidney disease-mineral and bone disorder Current Visit: Yes Status: Acute Assessment and plan: Continue Sevelamer (8) Coumarin-induced necrosis Current Visit: Yes Status: Suspected Assessment and plan: suspected, patient has been on coumadin for several years Continue wound dressing Coumadin has been held since admission, due to acute anemia on presentation Dermatology also following and appreciate recommendations (9) DVT prophylaxis Current Visit: Yes Status: Acute Assessment and plan: SCDs - Time Spent With Patient Total time spent is greater than 50% in coordination of care (as documented) at patient's floor/unit and/or counseling patient: - Subjective Interval history: Patient found to have Escherichia coli ESBL and Pseudomonas growing in abdominal wound Antibiotics changed to gentamicin today Appreciate managed for end-stage renal disease by nephrology Anticipate discharge on 01/19/18 once chair time scheduled for hemodialysis - Constitutional Vitals: Temp Pulse Resp BP Pulse Ox 98.7 F 70 16 132/71 92 01/18/18 07:27 01/18/18 07:27 01/18/18 07:35 01/18/18 07:27 01/18/18 07:35 General appearance: Present: A&O X 3, pleasant, no acute distress, obese - Respiratory Respiratory exam: Present: CTAB. Absent: accessory muscle use, rales, rhonchi, wheezes - Cardiovascular Cardiovascular exam: Present: RRR, +S1, +S2. Absent: diastolic murmur, gallop, rubs, systolic murmur Internal Medicine: Result - Labs CBC & Chem 7: 01/18/18 08:45 01/19/18 03:30 - ABG Interpretation ABG results: PT/INR, D-dimer PT 27.5 Seconds (9.4-12.1) H 01/17/18 05:30 - VTE Reasons for not Prescribing Prophylaxis: Medical contraindication Consult Discharge Plan - Plan Referrals: Roma Salgado MD [Partnered Physician] - 01/22/18 12:40 pm Peter Vicente DO [Primary Care Provider] - 01/24/18 10:00 am (Please follow up as schedule...with Dr. Yang) Prescriptions: Apixaban [Eliquis] 5 mg PO BID #60 tablet
[2018-01-18] MEDS: cloNIDine HCl 0.1 MG TABLET PO SCH ×2 (08:45→20:16)
[2018-01-18] MEDS: amLODIPine 5 MG TABLET PO SCH (08:45)
[2018-01-18] MEDS: *HR* Amiodarone 200 MG TABLET PO SCH (08:45)
[2018-01-18] MEDS: Metoprolol XL (24 HR) Succ 25 MG TAB.ER.24H PO SCH (08:45)
[2018-01-18] MEDS: hydrALAZINE 25 MG TABLET PO SCH ×2 (08:45→20:16)
[2018-01-18] MEDS: predniSONE 10 MG TABLET PO SCH (08:45)
[2018-01-18 09:08] LABS: Basophils % 0.1 %; Hemoglobin 8.5 g/dL (11.5-15.4); Lymphocytes # 0.9 K/mcL (0.6-4.6); Lymphocytes % 3.9 %; Mean Corpuscular Hemoglobin 32.3 pg (28.0-33.3); Mean Corpuscular Volume 95.1 fL (83.0-100.0); Mean Platelet Volume 10.5 fL (9.4-12.4); Monocytes # 1.8 K/mcL (0.0-1.3); Monocytes % 7.8 %; Neutrophils # 19.6 K/mcL (1.6-8.9); Nucleated Red Blood Cells 0.1 /100 WBC (0); Platelet Count 243 K/mcL (140-400); Red Blood Count 2.63 M/mcL (3.82-4.97); Red Cell Distribution Width 18.9 % (11.5-14.5); Segmented Neutrophils % 86.2 %
[2018-01-18 09:27] LABS: Calcium 6.9 mg/dL (8.6-10.3); Potassium 3.8 mEq/L (3.5-5.1)
[2018-01-18] MEDS ORDERED: Gentamicin 160 MG in 0.9 % Sodium Chloride 100 ML IVPB ONE (11:16)
--- NOTE | 2018-01-18 15:11 | Event Note ---
Date of Encounter: 01/18/18 Time of Encounter: 14:00 PD cath removal site is grossly WNL. Pt denies discomfort. Surgery will sign off at this time. Thank you for allowing us to participate in Ms. Alexis's care.
--- NOTE | 2018-01-18 15:31 | Nephrology Progress Note ---
Date of Encounter: 01/18/18 Time of Encounter: 12:00 - Assessment and Plan (1) Calciphylaxis Current Visit: Yes Status: Acute continue sodium thiosulfate to be given after HD Aggressive wound care advised Continue pain management (2) ESRD on hemodialysis Current Visit: Yes Status: Acute Continue HD, next plan tomorrow or the next day s/p PD catheter removal with Dr simmons Waiting outpatient HD placement, per social services specialist; pt chose to wait with my service at [facility] HD unit (3) Leukocytosis Current Visit: Yes Status: Acute Improving on abx, changing to gent with loading dose today per pharm. Will be discharged on gent at HD wound cx showing GNR; pesudomonas. proteus and ecoli sensitive to zosyn, tobra and gent et al. Qualifiers: Leukocytosis type: bandemia Qualified Code(s): D72.825 - Bandemia (4) Anemia Current Visit: No Status: Acute hgb fair at 8.5 after transfusion 2 units pRBCs on monday Continue aranesp s/p GI workup Qualifiers: Other causes of anemia: chronic disease, other Qualified Code(s): D63.8 - Anemia in other chronic diseases classified elsewhere Subjective Interval history: Pt seen and examined feeling better overall. States her pain is well managed. s/ p PD catheter removal which she reports was uneventful. Objective - Vital Signs Vital signs: Vital Signs Temp Pulse Resp BP Pulse Ox 01/18/18 07:35 16 92 01/18/18 07:27 98.7 F 70 18 132/71 93 01/18/18 04:40 99.4 F 71 20 116/53 93 01/18/18 00:10 99.8 F H 75 19 120/59 92 01/17/18 22:12 16 92 01/17/18 20:27 99.7 F H 71 18 106/55 91 01/17/18 16:29 98.4 F 71 18 123/68 95 Intake and Output 01/17/18 01/18/18 01/18/18 23:59 07:59 15:59 Intake Total 200 / 200 Balance 200 / 200 Intake: IV Fluids 200 / 200 Zosyn 3.375 GM In 0.9 % Sodium 200 / 200 Chloride (Mini-Bag +) 100 ML @ 25 mls/hr IVPB Q12HR [facility] Rx#: [id number] Other: Weight 87.5 kg 87.5 kg Patient Weight 01/18/18 23:59 Weight 87.5 kg - General Appearance General appearance: Present: chronically ill (NAD) EENT: Present: ATNC, mucous membranes moist Neck: Present: no JVD, supple Respiratory: Present: clear Cardiology: Present: no edema, normal S1, normal S2 Dialysis Vascular Access: Arteriovenous Fistula thrill: Yes bruit: Yes Gastrointestinal: Present: no tenderness, no guarding, obese (multiple necrotic lesion on abd/upper thighs some with dressings on top) Integumentary: Present: warm and dry Neurologic: Present: no focal deficit Musculoskeletal: Present: no deformities Psychiatric: Present: mood/affect appropriate, cooperative - Lab 01/18/18 08:45 01/18/18 08:45 Most recent lab results Calcium 6.9 mg/dL (8.6-10.3) L 01/18/18 08:45 Phosphorus 3.9 mg/dL (2.7-4.5) 01/10/18 04:07 Magnesium 2.0 mg/dL (1.6-2.6) 01/10/18 04:07 - VTE Reasons for not Prescribing Prophylaxis: Medical contraindication Consult Discharge Plan - Plan Referrals: Roma Slagado MD [Partnered Physician] - 01/22/18 12:40 pm Peter Vicente DO [Primary Care Provider] - 01/24/18 10:00 am (Please follow up as schedule...with Dr. Yang) Prescriptions: Apixaban [Eliquis] 5 mg PO BID #60 tablet
--- NOTE | 2018-01-18 17:01 | Oncology Inp Progress Note ---
Date of Encounter: 01/18/18 Time of Encounter: 16:00 (1) Rash Current Visit: Yes Status: Acute Assessment and plan: S/P punch biopsy of abdomen-at first glance pathology is not consistent with calciphylaxis, histologic differential may include vasculopathy and vasculitis from coumadin necrosis or sepsis, however, appears to fit clinical picture of calciphylaxis Clinical presentation and pathology report is not consistent with coumadin induced skin necrosis. This is further evidenced by the fact that the patient has been on coumadin for a number of years. Her presentation and clinical data is also not consistent with any other thrombotic microangiopathy. Her platelet count is normal. Pathology relates concern for vasculitis, nephrology/dermatology feel as though presentation more consistent with calciphylaxis. Of note, she continues to report subjective relief in her symptoms since starting sodium thiosulfate, further assisting to help confirm correct treatment for presumed diagnosis. She also has multiple risk factors which place her at a high risk for calciphylaxis including obesity, female sex,as well as use of coumadin and filler leaf cutter long use of systemic glucocorticoids. Dermatology is planning to re-biopsy. (2) Anemia Current Visit: No Status: Acute Assessment and plan: Chronic anemia secondary to anemia of chronic disease,however, hgb was 6.4 on admission which is an acute decrease from patients baseline She denies any recent s/s of bleeding prior to admission or since admission. S/P 4 units PRBC since admission S/P upper endoscopy on 01/16/18 which revealed, esophagitis and 2 non-bleeding gastric ulcers with no stigmata of bleeding. Discussed colonoscopy with GI as it was not performed on 01/16, who have recommended to wait to for colonoscopy in 4 weeks to perform with repeat EGD at that time. Hgb stable, repeat folate as it was low in 2017 and she is not currently on supplementation Qualifiers: Other causes of anemia: chronic disease, other Qualified Code(s): D63.8 - Anemia in other chronic diseases classified elsewhere (3) Coumarin-induced necrosis Current Visit: Yes Status: Suspected Assessment and plan: As noted above, clinical picture not consistent with coumadin induced skin necrosis. While protein C level has resulted low, this is entirely not specific for coumadin induced skin necrosis and may be secondary to patients current infectious/inflammatory process as protein c is an acute phase de-reactant (4) Afib Current Visit: Yes Status: Acute Assessment and plan: Coumadin stopped on admission for suspicion of coumadin induced skin necrosis for which is not consistent with patients presentation. Highly suspect calciphylaxis Coumadin remains anticoagulant of choice given patients renal function/dialysis , DOAC not ideal, patients with renal function similar to patient were excluded from clinical trials for renal dosing Eliquis started per hospitalist team-may recommend changing subsequently or decreasing dose further-may benefit from consulting/discussing risks versus benefits further with cardiology Recommend patient re-start coumadin, ideally this would have been once colonoscopy completed however GI recommended to complete in about 4 weeks time as an outpatient-continue to closely monitor while on AC Qualifiers: Atrial fibrillation type: paroxysmal Qualified Code(s): I48.0 - Paroxysmal atrial fibrillation Oncology: Subj Interval history: Ms. Alexis is resting in her chair with her family at bedside. She reports feeling exceptionally better in comparison to last week. She reports improvement in her pain level in relation to her skin lesions. She denies any s/ s bleeding, chest pain, SOB or calf pain. She has had her PD catheter removed by the surgical team and planning to start HD. - Constitutional Vitals: Vital Signs Temp Pulse Resp BP Pulse Ox 01/18/18 16:40 98.1 F 67 18 132/77 99 01/18/18 07:35 16 92 01/18/18 07:27 98.7 F 70 18 132/71 93 01/18/18 04:40 99.4 F 71 20 116/53 93 01/18/18 00:10 99.8 F H 75 19 120/59 92 01/17/18 22:12 16 92 01/17/18 20:27 99.7 F H 71 18 106/55 91 Intake and Output 01/18/18 01/18/18 01/18/18 07:59 15:59 23:59 Other: Weight 87.5 kg 87.5 kg Blood Glucose* 205 Patient Weight 01/18/18 23:59 Weight 87.5 kg General appearance: cooperative, no acute distress, no febrile - Head Head exam: Present: atraumatic - Respiratory Respiratory exam: Present: CTAB. Absent: respiratory distress - Cardiovascular Cardiovascular exam: Present: RRR, +S1, +S2 - GI/Abdominal GI/Abdominal exam: Present: normal bowel sounds, soft, tenderness (in areas of skin lesions) - Neurological Exam Neurological exam: Present: alert, oriented X3, no focal deficits, strengths equal and symetr throughout - Skin Additional comments: necrotic appearing skin lesions to abdomen and upper thighs Oncology: Obj Data - Labs CBC & Chem 7: 01/18/18 08:45 01/19/18 03:30 - ABG Interpretation ABG results: PT/INR, D-dimer PT 27.5 Seconds (9.4-12.1) H 01/17/18 05:30 Consult Discharge Plan - Plan Referrals: Roma Salgado MD [Partnered Physician] - 01/22/18 12:40 pm Peter Vicente DO [Primary Care Provider] - 01/24/18 10:00 am (Please follow up as schedule...with Dr. Yang) Prescriptions: Apixaban [Eliquis] 5 mg PO BID #60 tablet
[2018-01-18] MEDS: Apixaban 5 MG TABLET PO SCH (20:16)
[2018-01-19] MEDS: *HR* HYDROcodone/Acet 10/325 mg TABLET PO PRN ×3 (01:14→14:25)
[2018-01-19 04:25] LABS: Calcium 6.9 mg/dL (8.6-10.3); Magnesium 2.2 mg/dL (1.6-2.6); Potassium 3.9 mEq/L (3.5-5.1)
[2018-01-19] MEDS: Budesonide/Formoterol 160/4.5 MDI IH SCH (07:38)
[2018-01-19] MEDS: predniSONE 10 MG TABLET PO SCH (08:13)
[2018-01-19] MEDS: Apixaban 5 MG TABLET PO SCH (08:14)
[2018-01-19] MEDS: Metoprolol XL (24 HR) Succ 25 MG TAB.ER.24H PO SCH (08:15)
[2018-01-19] MEDS: *HR* Amiodarone 200 MG TABLET PO SCH (08:15)
[2018-01-19] MEDS ORDERED: 0.9 % Sodium Chloride 250 ML IVC PRN (08:51)
[2018-01-19] MEDS ORDERED: 0.9 % Sodium Chloride 1,000 ML PRIME SCH (09:00)
[2018-01-19] MEDS ORDERED: 0.9 % Sodium Chloride 2,000 ML ONE (09:06)
--- NOTE | 2018-01-19 14:10 | Infectious Disease Consult ---
Date of Encounter: 01/22/18 Time of Encounter: 13:59 Assessment and Plan (1) Leukocytosis Status: Acute Assessment and plan: The patient continues to have elevated WBC with neutrophilic predominance. 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 Chronic prednisone use is unlikely the sole cause as previous WBC were normal, but may be contributing to the persistence. Continue to trend. Qualifiers: Leukocytosis type: bandemia Qualified Code(s): D72.825 - Bandemia (2) Cellulitis Status: Acute Assessment and plan: Location: Abdominal wall. Likely secondary to infected abdominal wound. Causative organism unclear, but likely E. coli ESBL, Proteus mirabilis, and Pseudomonas. CT of the abdomen and pelvis negative for penetration of the fascia. Clinically, the wound does not appear infected at this point, but the patient states there was foul-smelling drainage on admission. Continue gentamicin IV with HD. Pharmacy to assist with dosing. Duration of treatment depends on the clinical picture. She has received 2 days of gentamicin and 6 days of Zosyn before that. Recommend completing a total of 14 days of antibiotics. Treat through 01/25/18. Aggressive wound care per the wound care team recommendations. Consider topical gentamicin once IV antibiotics are complete. Qualifiers: Site of cellulitis: unspecified site Qualified Code(s): L03.90 - Cellulitis , unspecified (3) Calciphylaxis Status: Suspected Assessment and plan: Clinical picture consistent with calciphylaxis and patient has a history of this back in 2017. Dermatology consulted. Status post skin biopsy that was negative for calciphylaxis, but planning to repeat biopsy as an outpatient next week. Patient reports clinical improvement since starting treatment. Management per the derm and nephrology teams. (4) Wound, open, abdominal wall, anterior Status: Acute Assessment and plan: Etiology unclear: calcphylaxis vs. coumadin-related skin necrosis. Dermatology consulted and following. Aggressive wound care. Qualifiers: Encounter type: initial encounter Qualified Code(s): S31.109A - Unspecified open wound of abdominal wall, unspecified quadrant without penetration into peritoneal cavity, initial encounter (5) GI bleed Status: Suspected Assessment and plan: Patient anemic and FOBT +. GI consulted. Status post EGD 01/16/18 that showed reflux esophagitis, chronic gastritis, and non-bleeding gastric ulcers. Qualifiers: GI bleed type/associated pathology: unspecified gastrointestinal hemorrhage type Qualified Code(s): K92.2 - Gastrointestinal hemorrhage, unspecified (6) ESRD (end stage renal disease) Status: Chronic Assessment and plan: Etiology unclear. Started HD 1 year ago, transitioned to PD in August, and transitioned back to HD to facilitate treatment of calciphyaxis. Nephrology consulted and following. (7) Afib Status: Acute Assessment and plan: Rate controlled. Anticoagulation per the primary team. Qualifiers: Atrial fibrillation type: paroxysmal Qualified Code(s): I48.0 - Paroxysmal atrial fibrillation Infectious Disease HPI - Data of Consult Patient: new to practice Consult date: 01/19/18 Requesting Physician: Kayden Murrieta Primary Care Provider: Peter Vicente DO - Consult Narrative Reason for consult: Wound infection History of present illness: Ms. Alexis is a 42 year old female with a past medical history of A. fib on Coumadin, diabetes, GI bleed, hyperlipidemia, hypertension, end-stage renal disease of unknown etiology on dialysis for 1 year, calciphylaxis back in 2016, status post failed renal transplant in 2007 currently on chronic oral and is unknown. The patient was admitted to the hospital January 06 for abdominal and bilateral thigh wounds. We are consulted January 19 for further antibiotic recommendations for abdominal wound infection. Briefly, the patient's 42-year-old female with past medical history as stated above. The patient reported a one month history of progressively worsening wounds to her abdomen and bilateral upper thighs that were severely painful, foul-smelling, with drainage. She was seen by her PCP at the onset of symptoms until there were contusions, but her symptoms progress. She states the pain got so bad that she came to the ER if she can take it anymore. Upon arrival, the patient was tachycardic and had leukocytosis with neutrophilic predominance. ESR is mildly elevated at 47. Lactic acid was normal. Blood cultures were obtained 2 sets were negative. She had a CT abdomen and pelvis showed no acute findings within the abdomen or pelvis. There was mild skin thickening with mild infiltration of subcutaneous fat in the anterior abdominal wall, but no focal subcutaneous fluid collection or evidence of abscess or osteomyelitis. There was noted to be free fluid throughout the abdomen related. She will dialysis and a small quantity of free air, presumably treatment related as well. The patient was admitted to the hospital for further evaluation. Since admission, the patient has had continued and persistent leukocytosis. Nephrology was consulted. She was originally started on peritoneal dialysis, but there is concern that she has calciphylaxis and she was transitioned to hemodialysis in order to pursue treatment of the calciphylaxis. Dermatology was consult and performed a punch biopsy that showed no evidence of calciphylaxis, but findings were concerning for vasculopathy and vasculitis from Coumadin necrosis or sepsis. The patient was started preemptively on treatment for calciphylaxis prior to the biopsy results being available and she has experienced improvement in her symptoms. She was also originally started on IV Unasyn back on January 10, but had worsening leukocytosis so antibiotics were escalated to Zosyn and make a mycin on January 12. Vancomycin was discontinued on January 15. The Zosyn was continued until yesterday when she was transitioned to IV gentamicin. Her wound culture grew out Escherichia coli ESBL , Proteus mirabilis, and Pseudomonas stutzeri. Oncology was consulted to assist with management of possible warfarin induced skin necrosis. Repeat blood culture drawn January 12 is no growth to date 1 set. The patient had anemia and fecal occult blood test that was positive. GI was consulted and performed an EGD on January 16 that showed reflux esophagitis, chronic gastritis, nonbleeding gastric ulcers. On January 17, the patient underwent PD catheter removal. Dermatology has recommended a repeat biopsy that is scheduled to be performed on Monday as an outpatient. We have asked to evaluate and make further recommendations. During my exam today, patient dorsal history as stated above. She denies fevers or chills or rigors. She denies any headache or neck pain. She denies any congestion, earache, or sore throat. She denies any chest pain, shortness of breath, or cough. She denies any nausea or vomiting. She does report diarrhea that started a couple of days prior to admission. She denies abdominal pain or urinary complaints. She states her appetite has not been very good, but she does not really like the food here. She states that the ulcerations were very painful, foul-smelling, a large amount of drainage, but she is unsure of the color of the drainage. She denies any back or joint pain. She denies any oral thrush. The patient lives at home with her family and significant other. She does not work outside the home. She denies any tobacco, alcohol, or illicit drug use. She denies recent travel. She does have dogs at home. CC: Kayden Murrieta Past Med Surg Social Fam HX - Past Medical History Attestation: Yes The following information was validated with the patient. Source: patient, old records reviewed, nursing notes reviewed Medical history: asthma, atrial fibrillation, diabetes, GI bleed, hyperlipidemia , hypertension, renal disease (ETiology unclear.), thyroid disease Additional medical history: ANEMIA, BLEEDING ULCER,. KIDNEY DIALYSIS Psychiatric history: no psych history - Past Surgical History Surgical History: appendectomy, cholecystectomy, thyroidectomy, transplant ( kidney), other (endoscopy) Additional surgical history: KIDNEY TRANSPLANT 2007, TUBAL LIGATION, shunt danya - Social History Smoking Status: Never smoker Smokeless Tobacco Status: No Alcohol use: none Drug use: none Occupational status: unemployed Current living situation: Home - Independent Activity Level: Independent ambulation Recent Out of Country Travel Within the Last 8 Weeks: No Exposure or Possible Exposure to Illness During Travel: No Infectious Disease-CN:Meds Albuterol Sulfate [Albuterol Inhaler] 2 puff IH Q4H PRN 09/09/16 [History] Amiodarone [Cordarone] 200 mg PO DAILY 09/09/16 [History] Atorvastatin [Lipitor] 40 mg PO HS 09/09/16 [History] Budesonide/Formoterol 160/4.5 [Symbicort 160/4.5] 2 puff IH BIDR 09/09/16 [ History] Ipratropium/Albuterol Neb [Duoneb] 3 ml IH QID PRN 09/09/16 [History] Levothyroxine Sodium [Synthroid] 200 mcg PO QAM 09/09/16 [History] Omeprazole [PriLOSEC] 20 mg PO DAILY 09/09/16 [History] cloNIDine HCl [Clonidine HCl] 0.1 mg PO TID 09/09/16 [History] hydrALAZINE [HydrALAZINE] 50 mg PO BID 09/09/16 [History] predniSONE [PredniSONE] 10 mg PO DAILY 09/09/16 [History] Acetaminophen [Acetaminophen ER] 650 mg PO Q4H PRN 12/23/16 [History] Diphenoxylate/Atropine [Lomotil 2.5 mg/0.025 mg] 1 each PO Q4H PRN 12/23/16 [ History] Montelukast [Singulair] 10 mg PO DAILY 02/16/17 [History] Amlodipine Besylate 5 mg PO BID 01/07/18 [History] Folic Acid 1 mg PO DAILY 01/07/18 [History] Metoprolol Succinate [Toprol Xl] 25 mg PO DAILY 01/07/18 [History] Potassium Chloride 20 meq PO DAILY 01/07/18 [History] Apixaban [Eliquis] 5 mg PO BID #60 tablet 01/18/18 [Rx] Gentamicin in NaCl, Iso-Osm [Gentamicin 80 mg/Ns 100 ml Pb] 80 mg IV LEEANNA #8 piggyback 01/19/18 [Rx] HYDROcodone/Acet 10/325 mg [[place] 10-325 mg] 1 each PO Q8H PRN 5 Days #15 tablet 01/19/18 [Rx] 3 Allergy/AdvReac Type Severity Reaction Status Date / Time heparin Allergy See Verified 01/07/18 13:14 Comments All systems: reviewed and no additional remarkable complaints except as stated Exam - Constitutional Vitals: Temp Pulse Resp BP Pulse Ox 97.3 F L 66 18 144/83 96 01/19/18 10:25 01/19/18 07:51 01/19/18 10:25 01/19/18 13:10 01/19/18 07:51 General appearance: cooperative, morbidly obese, no acute distress - Head Head exam: Present: atraumatic, normal inspection, normocephalic - Eye Eye exam: Present: EOMI, normal appearance, PERRL Pupils: Present: normal accommodation - ENT ENT exam: Present: mucous membranes moist - Neck Neck exam: Present: normal inspection - Respiratory Respiratory exam: Present: CTAB. Absent: rales, respiratory distress, rhonchi, wheezes - Cardiovascular Cardiovascular exam: Present: irregular rhythm. Absent: tachycardia - GI/Abdominal GI/Abdominal exam: Present: distended (obese), normal bowel sounds, soft. Absent: tenderness - Extremities Exam Extremities exam: Absent: joint swelling, pedal edema, tenderness Additional comments: AV fistula noted to the LUE +/+. - Neurological Exam Neurological exam: Present: alert, oriented X3, no focal deficits - Psychiatric Psychiatric exam: Present: normal affect, normal mood - Skin Skin exam: Present: dry, intact, normal color, warm - Expanded Skin Exam 1 - Large abdominal ulcer. Wound bed pink and moist. No foul odor or drainage. Small area of necrosis noted to the medial wound edge. 2 - Necrotic abdominal wound. 3 - Necrotic wound 4 - Necrotic wound Infectious Disease CN: Results - Labs CBC & Chem 7: 01/18/18 08:45 01/19/18 03:30 Cultures: Cultures 01/12/18 07:57 Blood Culture - Final Peripheral Venipuncture No growth. Final report. 01/12/18 18:20 Wound Culture - Final Abdomen Pseudomonas stutzeri Proteus mirabilis Escherichia coli ESBL Serology: Serology 01/14/18 01/07/18 Range/Units 00:01 19:01 Stool Occult Blood Positive A (Negative) Hep Bs Antigen Nonreactive (Nonreactive) Hep Bs Antibody 0.98 mIU/mL - VTE Reasons for not Prescribing Prophylaxis: Medical contraindication Documentation of Mechanical Device: Intermittent pneumatic compression device Consult Discharge Plan - Plan Instructions: Hydrocodone/Acetaminophen (By mouth), Gentamicin/Sodium Chloride Premix (Injection), Apixaban (By mouth), Hemodialysis (DC) Referrals: Antonio Rodriguez MD [Partnered Physician] - 02/07/18 9:00 am (Please follow up as schedule...) Roma Salgado MD [Partnered Physician] - 01/22/18 12:40 pm Peter Vicente DO [Primary Care Provider] - 01/24/18 10:00 am (Please follow up as schedule...with Dr. Yang) Prescriptions: Apixaban [Eliquis] 5 mg PO BID #60 tablet Gentamicin in NaCl, Iso-Osm [Gentamicin 80 mg/Ns 100 ml Pb] 80 mg IV LEEANNA #8 piggyback HYDROcodone/Acet 10/325 mg [[place] 10-325 mg] 1 each PO Q8H PRN 5 Days #15 tablet PRN Reason: Severe Pain - Attending Attestation I examined this patient and my medical decision-making was reviewed with the Resident Physician. I agree with the documented findings, disposition and treatment plan as described except to the extent set forth below. patient is a 42 year old woman with past medical history mentioned below including CRF with history of rental transplant in 2007 at [facility] that failed and currently she's not on any immunsuppresive therapy was admitted for abdominal wounds due to calciphylaxis. wounds have been getting progressively worse and have been treated with steroids wounds appear infected and grew ESBL E coli, pseudomonas spp and proteus mirabilis patient has been on zosyn , we were asked to evaluate the patient and make further recommendations. currently patient just came back from dialysis. she was clearly uncomfortable and she states it's due to back pain that is acute and she thinks it's due to laying down for 3 hours for dialysis. I asked her if she's had similar symptoms on previous dialysis she said NO because she usually sits up for her outpatient dialysis. wounds appear okay with no surrounding cellulitis or necrotic tissues. she states that they are not painful at this time. stop zosyn start gentamicin - consider topical gentamicin wound care sodium thiosulfate consider hyperbaric check PTH monitor labs and for drug toxicity
[2018-01-19] MEDS: hydrALAZINE 25 MG TABLET PO SCH (14:26)
[2018-01-19] MEDS: cloNIDine HCl 0.1 MG TABLET PO SCH (14:26)
[2018-01-19] MEDS: amLODIPine 5 MG TABLET PO SCH (14:26)
--- NOTE | 2018-01-19 15:34 | Oncology Inp Progress Note ---
Date of Encounter: 01/19/18 Time of Encounter: 13:30 (1) Rash Current Visit: Yes Status: Acute Assessment and plan: S/P punch biopsy of abdomen-at first glance pathology is not entirely consistent with calciphylaxis, histologic differential may include vasculopathy and vasculitis from coumadin necrosis or sepsis, however, appears to fit clinical picture of calciphylaxis Clinical presentation and pathology report is not consistent with coumadin induced skin necrosis. This is further evidenced by the fact that the patient has been on coumadin for a number of years. Her presentation and clinical data is also not consistent with any other thrombotic microangiopathy. Her platelet count is normal. Pathology relates concern for vasculitis, nephrology/dermatology feel as though presentation more consistent with calciphylaxis. Of note, she continues to report subjective relief in her symptoms since starting sodium thiosulfate, further assisting to help confirm correct treatment for presumed diagnosis. She also has multiple risk factors which place her at a high risk for calciphylaxis including obesity, female sex,as well as use of coumadin and chcf use of systemic glucocorticoids. Dermatology is planning to re-biopsy. (2) Anemia Current Visit: No Status: Acute Assessment and plan: Chronic anemia secondary to anemia of chronic disease, however, hgb was 6.4 on admission which is an acute decrease from patients baseline She denies any recent s/s of bleeding prior to admission or since admission. S/P 4 units PRBC since admission S/P upper endoscopy on 01/16/18 which revealed, esophagitis and 2 non-bleeding gastric ulcers with no stigmata of bleeding. Discussed colonoscopy with GI who have recommended to wait to for colonoscopy in 4 weeks to perform with repeat EGD at that time. Hgb stable currently, repeat folate as it was low in 2017 and she is not currently on supplementation Anemia may be secondary to infectious process-abdominal wound cultures positive for E. coli ESBL, Proteus mirabilis, and Pseudomonas. Qualifiers: Other causes of anemia: chronic disease, other Qualified Code(s): D63.8 - Anemia in other chronic diseases classified elsewhere (3) Coumarin-induced necrosis Current Visit: Yes Status: Suspected Assessment and plan: As noted above, clinical picture not consistent with coumadin induced skin necrosis. While protein C level has resulted low, this is entirely not specific for coumadin induced skin necrosis and may be secondary to patients current infectious/inflammatory process as protein c is an acute phase de-reactant (4) Afib Current Visit: Yes Status: Acute Assessment and plan: Coumadin stopped on admission for suspicion of coumadin induced skin necrosis for which is not consistent with patients presentation. Highly suspect calciphylaxis Coumadin remains anticoagulant of choice given patients renal function/dialysis , DOAC not ideal, due to lack of evidence in clinical trials of patients with similar renal function. Eliquis started per hospitalist team-may recommend changing subsequently or decreasing dose further in near future. 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 Patient will plan to follow up with Dr. Rivera as an outpatient in a few weeks, at this time will plan to discuss options for vermin exterminator AC and re-evaluate pathology results from her upcoming 2nd biopsy of skin lesion. Appreciate continued recommendations per nephrology and dermatology team. Please refer to Dr. Rivera's attestation below for additional details. Qualifiers: Atrial fibrillation type: paroxysmal Qualified Code(s): I48.0 - Paroxysmal atrial fibrillation Oncology: Subj Interval history: Patient was seen and examined in dialysis suite. She denies pain and reports painful skin lesions continue to improve. She denies any s/s bleeding. She continues to feel improved, she does report increased gas/abdominal bloating today. - Constitutional Vitals: Vital Signs Temp Pulse Resp BP Pulse Ox 01/19/18 14:25 97.2 F L 18 149/88 01/19/18 13:55 144/81 01/19/18 13:40 147/85 01/19/18 13:25 149/84 01/19/18 13:10 144/83 01/19/18 12:55 147/83 01/19/18 12:40 139/72 01/19/18 12:25 146/71 01/19/18 12:10 151/86 01/19/18 11:55 149/84 01/19/18 11:40 145/81 01/19/18 11:25 144/79 01/19/18 11:10 141/78 01/19/18 10:55 140/76 01/19/18 10:40 136/78 01/19/18 10:25 97.3 F L 18 147/78 01/19/18 07:51 97.6 F 66 16 138/68 96 01/19/18 07:39 16 94 01/19/18 04:16 98.0 F 65 16 129/79 94 01/19/18 01:00 98.1 F 72 20 143/83 96 01/18/18 19:57 18 95 01/18/18 19:32 97.8 F 64 16 119/68 98 01/18/18 16:40 98.1 F 67 18 132/77 99 Intake and Output 01/18/18 01/19/18 01/19/18 23:59 07:59 15:59 Intake Total 100 / 100 100 / 100 840 / 840 Output Total 0 / 0 0 / 0 3600 / 3600 Balance 100 / 100 100 / 100 -2760 / -2760 Intake: IV Fluids 100 / 100 100 / 100 Zosyn 3.375 GM In 0.9 % Sodium 100 / 100 100 / 100 Chloride (Mini-Bag +) 100 ML @ 25 mls/hr IVPB Q12HR PENDING SALE TO [facility] Rx#: [id number] Oral 0 / 0 0 / 0 240 / 240 Intake, Rinseback and Flushes 600 / 600 Output: Urine 0 / 0 0 / 0 0 / 0 Total Dialysis (HD) Output 3600 / 3600 Other: Meal Breakfast Percent of Meal Consumed 20% # Voids 1 # Bowel Movements 1 Weight 82.735 kg Blood Glucose* 260 123 Hemodialysis Net Fluid Removed 3000 (mL) Patient Weight 01/19/18 23:59 Weight 82.735 kg General appearance: cooperative, no acute distress, no febrile - Head Head exam: Present: atraumatic - Respiratory Respiratory exam: Present: CTAB. Absent: respiratory distress - Cardiovascular Cardiovascular exam: Present: RRR, +S1, +S2 - GI/Abdominal GI/Abdominal exam: Present: normal bowel sounds, soft Additional comments: tenderness to areas of skin lesions - Extremities Exam Extremities exam: Absent: calf tenderness - Neurological Exam Neurological exam: Present: alert, oriented X3, no focal deficits, strengths equal and symetr throughout - Psychiatric Psychiatric exam: Present: normal affect, normal mood - Skin Additional comments: multiple scattered necrotic appearing lesions to abdomen and upper thighs with ABD pad dressings Oncology: Obj Data - Labs CBC & Chem 7: 01/18/18 08:45 01/19/18 03:30 Labs: Laboratory Results - last 24 hr 01/17/18 01/18/18 01/18/18 20:15 13:08 16:34 Sodium Potassium Chloride Carbon Dioxide BUN Creatinine Est GFR ( Amer) Est GFR (Non-Af Amer) BUN/Creatinine Ratio Glucose POC Glucose 290 H 161 H 205 H Calculated Osmolality Calcium Magnesium Random Gentamicin 01/18/18 01/19/18 01/19/18 20:10 03:30 03:30 Sodium 141 Potassium 3.9 Chloride 89 L Carbon Dioxide 16 L BUN 57 H Creatinine 8.11 H Est GFR ( Amer) 7 L Est GFR (Non-Af Amer) 5 L BUN/Creatinine Ratio 7 Glucose 137 H POC Glucose 260 H Calculated Osmolality 310 H Calcium 6.9 L Magnesium 2.2 Random Gentamicin 6.3 - Impressions Impressions Chest X-Ray 01/19/18 10:28 IMPRESSION: Multifocal ground-glass opacities in the left mid and lower lung zones. Pattern may represent asymmetric edema or a developing infectious process. D/ / Dandy Giles MD / Dandy Giles MD Interpreting Provider: Dandy Giles MD - ABG Interpretation ABG results: PT/INR, D-dimer PT 27.5 Seconds (9.4-12.1) H 01/17/18 05:30 Consult Discharge Plan - Plan Referrals: Roma Salgado MD [Partnered Physician] - 01/22/18 12:40 pm Peter Vicente DO [Primary Care Provider] - 01/24/18 10:00 am (Please follow up as schedule...with Dr. Yang) Prescriptions: Apixaban [Eliquis] 5 mg PO BID #60 tablet
--- NOTE | 2018-01-19 16:09 | Discharge Summary ---
- NOTES TO OUTPATIENT PROVIDER Notes to Outpatient Provider: Patient to receive 1 dose of gentamicin after each hemodialysis until 01/25/18 Orders not resulted at time of discharge: Pending orders 01/20/18 04:00 Folate AM 0400 Gentamicin,Random AM 0400 Date of Encounter: 01/19/18 Time of Encounter: 11:00 - Discharge Diagnosis (1) Wound, open, abdominal wall, anterior Priority: Primary Status: Acute Qualifiers: Encounter type: initial encounter Qualified Code(s): S31.109A - Unspecified open wound of abdominal wall, unspecified quadrant without penetration into peritoneal cavity, initial encounter (2) Leukocytosis Priority: Primary Status: Acute Qualifiers: Leukocytosis type: bandemia Qualified Code(s): D72.825 - Bandemia (3) Acute on chronic blood loss anemia Priority: Primary Status: Acute (4) GI bleed Priority: Primary Status: Suspected Qualifiers: GI bleed type/associated pathology: unspecified gastrointestinal hemorrhage type Qualified Code(s): K92.2 - Gastrointestinal hemorrhage, unspecified (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 She reports that the lesions have been present for approximately one month and has gradually increased over the last week. Patient was concerned so decided to come to the hospital for evaluation. 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 Nephrology was consulted for management of end-stage renal disease as well as dermatology for evaluation of skin lesions. General surgery was also consulted for abdominal wound which grew Escherichia coli ESBL, Proteus mirabilis, and Pseudomonas. Patient was treated with IV Zosyn which was later changed to IV gentamicin. Patient will be discharged to continue IV gentamicin after each hemodialysis through 01/25/18. Patient will also follow up with general surgery for wound care management. - Time Spent with Patient Total time spent providing and/or coordinating discharge services: Less than 30 minutes - Discharge Medications Prescriptions: Apixaban [Eliquis] 5 mg PO BID #60 tablet Gentamicin in NaCl, Iso-Osm [Gentamicin 80 mg/Ns 100 ml Pb] 80 mg IV LEEANNA #8 piggyback HYDROcodone/Acet 10/325 mg [[place] 10-325 mg] 1 each PO Q8H PRN 5 Days #15 tablet PRN Reason: Severe Pain Home Medications: Albuterol Sulfate [Albuterol Inhaler] 2 puff IH Q4H PRN 09/09/16 [History] Amiodarone [Cordarone] 200 mg PO DAILY 09/09/16 [History] Atorvastatin [Lipitor] 40 mg PO HS 09/09/16 [History] Budesonide/Formoterol 160/4.5 [Symbicort 160/4.5] 2 puff IH BIDR 09/09/16 [ History] Ipratropium/Albuterol Neb [Duoneb] 3 ml IH QID PRN 09/09/16 [History] Levothyroxine Sodium [Synthroid] 200 mcg PO QAM 09/09/16 [History] Omeprazole [PriLOSEC] 20 mg PO DAILY 09/09/16 [History] cloNIDine HCl [Clonidine HCl] 0.1 mg PO TID 09/09/16 [History] hydrALAZINE [HydrALAZINE] 50 mg PO BID 09/09/16 [History] predniSONE [PredniSONE] 10 mg PO DAILY 09/09/16 [History] Acetaminophen [Acetaminophen ER] 650 mg PO Q4H PRN 12/23/16 [History] Diphenoxylate/Atropine [Lomotil 2.5 mg/0.025 mg] 1 each PO Q4H PRN 12/23/16 [ History] Montelukast [Singulair] 10 mg PO DAILY 02/16/17 [History] Amlodipine Besylate 5 mg PO BID 01/07/18 [History] Folic Acid 1 mg PO DAILY 01/07/18 [History] Metoprolol Succinate [Toprol Xl] 25 mg PO DAILY 01/07/18 [History] Potassium Chloride 20 meq PO DAILY 01/07/18 [History] Apixaban [Eliquis] 5 mg PO BID #60 tablet 01/18/18 [Rx] Gentamicin in NaCl, Iso-Osm [Gentamicin 80 mg/Ns 100 ml Pb] 80 mg IV LEEANNA #8 piggyback 01/19/18 [Rx] HYDROcodone/Acet 10/325 mg [[place] 10-325 mg] 1 each PO Q8H PRN 5 Days #15 tablet 01/19/18 [Rx] Allergies/Adverse Reactions: 3 Allergy/AdvReac Type Severity Reaction Status Date / Time heparin Allergy See Verified 01/07/18 13:14 Comments Date of admission: 01/07/18 17:08 Primary care physician: Peter Vicente DO Consults: 01/07/18 19:00 Consult to Dialysis [CONS] ONCE 01/08/18 12:22 Consult to Dermatology [CONS] Routine Consulting Provider: Dermat[facility] Reason for Consult: abdominal lesions, hx calciphylaxis Time Notified: 11:00 Call Completed: Yes 01/08/18 12:45 Consult to Dialysis [CONS] ONCE 01/09/18 15:30 Consult to Dialysis [CONS] ONCE 01/10/18 15:00 Consult to Dialysis [CONS] ONCE 01/11/18 11:15 Consult to Dialysis [CONS] ONCE 01/11/18 15:00 Consult to Dialysis [CONS] ONCE 01/12/18 07:48 Consult to Oncology [CONS] Routine Consulting Provider: [facility] Reason for Consult: Coumadin induced necrosis, Protein C level pending, leukocytosis Call Completed: Yes 01/12/18 07:50 Consult to Nephrology [CONS] Stat Consulting Provider: [facility]/TAYLOR/THUY/EDEL Reason for Consult: ESRD on PD, Suspected calciphylaxis vs coumadin induced necrosis Call Completed: Yes 01/12/18 11:15 Consult to Dialysis [CONS] ONCE 01/12/18 16:00 Consult to Dialysis [CONS] ONCE 01/13/18 10:30 Consult to Dialysis [CONS] ONCE 01/13/18 16:00 Consult to Dialysis [CONS] ONCE 01/14/18 11:35 Consult to Wound Care [CONS] Stat Reason for Consult: Kindly assess for wound care. Call Completed: Yes 01/14/18 13:41 Consult to Gastroenterology [CONS] Routine Consulting Provider: Gastroenterology [facility] Reason for Consult: Acute on chronic anemia in patient on Coumadin with positive FOBT. For endoscopy Call Completed: No 01/15/18 07:30 Consult to Dialysis [CONS] ONCE 01/16/18 12:23 Consult to Surgery [CONS] Routine Consulting Provider: [facility] Reason for Consult: PD catheter removal Call Completed: Yes 01/17/18 07:30 Consult to Dialysis [CONS] ONCE 01/18/18 10:25 Consult to Area Supervisor [CONS] Routine Reason for SW Consult: pt needs outpt chair time for HD 01/19/18 09:00 Consult to Dialysis [CONS] ONCE 01/19/18 12:16 Consult to Infectious Diseases [CONS] Routine Consulting Provider: Infectious Disease [facility] Reason for Consult: Abdominal wound Call Completed: Yes - Constitutional Vitals: Temp Pulse Resp BP Pulse Ox 97.2 F L 66 18 149/88 96 01/19/18 14:25 01/19/18 07:51 01/19/18 14:25 01/19/18 14:25 01/19/18 07:51 General appearance: Present: A&O X 3, pleasant, no acute distress, obese - Patient Status Disposition: Home Health Service Condition: Fair - Discharge Instructions Follow Up With: Antonio Rodriguez MD [Partnered Physician] - 02/07/18 9:00 am (Please follow up as schedule...) Roma Salgado MD [Partnered Physician] - 01/22/18 12:40 pm Peter Vicente DO [Primary Care Provider] - 01/24/18 10:00 am (Please follow up as schedule...with Dr. Yang) - VTE Reasons for not Prescribing Prophylaxis: Medical contraindication Documentation of Mechanical Device: Intermittent pneumatic compression device
--- NOTE | 2018-01-19 16:09 | Nephrology Progress Note ---
Date of Encounter: 01/19/18 Time of Encounter: 12:00 - Assessment and Plan (1) Calciphylaxis Current Visit: Yes Status: Suspected continue sodium thiosulfate to be given after HD Aggressive wound care advised Continue pain management (2) ESRD on hemodialysis Current Visit: Yes Status: Acute Continue HD, next plan tomorrow or the next day s/p PD catheter removal with Dr simmons Waiting outpatient HD placement, per forensic social worker; pt chose to wait with my service at [facility] HD unit (3) Leukocytosis Current Visit: Yes Status: Acute Improving on abx, changing to gent with loading dose today per pharm. Will be discharged on gent at HD wound cx showing GNR; pesudomonas. proteus and ecoli sensitive to zosyn, tobra and gent et al. Qualifiers: Qualified Code(s): D72.825 - Bandemia (4) Anemia Current Visit: No Status: Acute hgb fair at 8.5 after transfusion 2 units pRBCs on monday Continue aranesp s/p GI workup Qualifiers: Qualified Code(s): D63.8 - Anemia in other chronic diseases classified elsewhere Subjective Interval history: Pt seen and examined on HD and feeling better overall. Awaiting HD chair time Objective - Vital Signs Vital signs: Vital Signs Temp Pulse Resp BP Pulse Ox 01/19/18 14:25 97.2 F L 18 149/88 01/19/18 13:55 144/81 01/19/18 13:40 147/85 01/19/18 13:25 149/84 01/19/18 13:10 144/83 01/19/18 12:55 147/83 01/19/18 12:40 139/72 01/19/18 12:25 146/71 01/19/18 12:10 151/86 01/19/18 11:55 149/84 01/19/18 11:40 145/81 01/19/18 11:25 144/79 01/19/18 11:10 141/78 01/19/18 10:55 140/76 01/19/18 10:40 136/78 01/19/18 10:25 97.3 F L 18 147/78 01/19/18 07:51 97.6 F 66 16 138/68 96 01/19/18 07:39 16 94 01/19/18 04:16 98.0 F 65 16 129/79 94 01/19/18 01:00 98.1 F 72 20 143/83 96 01/18/18 19:57 18 95 01/18/18 19:32 97.8 F 64 16 119/68 98 01/18/18 16:40 98.1 F 67 18 132/77 99 Intake and Output 01/19/18 01/19/18 01/19/18 07:59 15:59 23:59 Intake Total 100 / 100 840 / 840 Output Total 0 / 0 3600 / 3600 Balance 100 / 100 -2760 / -2760 Intake: IV Fluids 100 / 100 Zosyn 3.375 GM In 0.9 % Sodium 100 / 100 Chloride (Mini-Bag +) 100 ML @ 25 mls/hr IVPB Q12HR OSMAR Rx#: [id number] Oral 0 / 0 240 / 240 Intake, Rinseback and Flushes 600 / 600 Output: Urine 0 / 0 0 / 0 Total Dialysis (HD) Output 3600 / 3600 Other: Meal Breakfast Percent of Meal Consumed 20% # Voids 1 # Bowel Movements 1 Weight 82.735 kg Blood Glucose* 123 Hemodialysis Net Fluid Removed 3000 (mL) Patient Weight 01/19/18 23:59 Weight 82.735 kg - Lab 01/18/18 08:45 01/19/18 03:30 Most recent lab results Calcium 6.9 mg/dL (8.6-10.3) L 01/19/18 03:30 Phosphorus 3.9 mg/dL (2.7-4.5) 01/10/18 04:07 Magnesium 2.2 mg/dL (1.6-2.6) 01/19/18 03:30 - VTE Reasons for not Prescribing Prophylaxis: Medical contraindication Documentation of Mechanical Device: Intermittent pneumatic compression device Consult Discharge Plan - Plan Referrals: Roma Salgado MD [Partnered Physician] - 01/22/18 12:40 pm Peter Vicente DO [Primary Care Provider] - 01/24/18 10:00 am (Please follow up as schedule...with Dr. Yang) Prescriptions: Apixaban [Eliquis] 5 mg PO BID #60 tablet HYDROcodone/Acet 10/325 mg [[place] 10-325 mg] 1 each PO Q8H PRN 5 Days #15 tablet PRN Reason: Severe Pain
--- NOTE | 2018-01-19 16:15 | Physician Discharge Referral ---
Home Health/Hosp Referral Info Transfer to: Home Health - Diagnosis (1) Wound, open, abdominal wall, anterior Status: Acute (2) Leukocytosis Status: Acute (3) Acute on chronic blood loss anemia Status: Acute (4) GI bleed Status: Suspected (5) Calciphylaxis Status: Suspected (6) ESRD (end stage renal disease) Status: Chronic (7) Chronic kidney disease-mineral and bone disorder Status: Acute (8) Coumarin-induced necrosis Status: Suspected (9) DVT prophylaxis Status: Acute - Respiratory Orders Smoking Cessation: Smoking cessation has been advised. For more information, call the [place] Tobacco Quit Line at 7-662-OZAZ-NOW. - Services Needed Following services are medically necessary services: Nursing - Transfer Medications Prescriptions: Apixaban [Eliquis] 5 mg PO BID #60 tablet HYDROcodone/Acet 10/325 mg [[place] 10-325 mg] 1 each PO Q8H PRN 5 Days #15 tablet PRN Reason: Severe Pain Home Medications: Albuterol Sulfate [Albuterol Inhaler] 2 puff IH Q4H PRN 09/09/16 [History] Amiodarone [Cordarone] 200 mg PO DAILY 09/09/16 [History] Atorvastatin [Lipitor] 40 mg PO HS 09/09/16 [History] Budesonide/Formoterol 160/4.5 [Symbicort 160/4.5] 2 puff IH BIDR 09/09/16 [ History] Ipratropium/Albuterol Neb [Duoneb] 3 ml IH QID PRN 09/09/16 [History] Levothyroxine Sodium [Synthroid] 200 mcg PO QAM 09/09/16 [History] Omeprazole [PriLOSEC] 20 mg PO DAILY 09/09/16 [History] cloNIDine HCl [Clonidine HCl] 0.1 mg PO TID 09/09/16 [History] hydrALAZINE [HydrALAZINE] 50 mg PO BID 09/09/16 [History] predniSONE [PredniSONE] 10 mg PO DAILY 09/09/16 [History] Acetaminophen [Acetaminophen ER] 650 mg PO Q4H PRN 12/23/16 [History] Diphenoxylate/Atropine [Lomotil 2.5 mg/0.025 mg] 1 each PO Q4H PRN 12/23/16 [ History] Montelukast [Singulair] 10 mg PO DAILY 02/16/17 [History] Amlodipine Besylate 5 mg PO BID 01/07/18 [History] Folic Acid 1 mg PO DAILY 01/07/18 [History] Metoprolol Succinate [Toprol Xl] 25 mg PO DAILY 01/07/18 [History] Potassium Chloride 20 meq PO DAILY 01/07/18 [History] Apixaban [Eliquis] 5 mg PO BID #60 tablet 01/18/18 [Rx] HYDROcodone/Acet 10/325 mg [[place] 10-325 mg] 1 each PO Q8H PRN 5 Days #15 tablet 01/19/18 [Rx] Allergies/Adverse Reactions: 3 Allergy/AdvReac Type Severity Reaction Status Date / Time heparin Allergy See Verified 01/07/18 13:14 Comments Certification: Further, I certify that my clinical findings support that this patient is homebound (i.e. absences from home require considerable and taxing effort and are for medical reasons or religion services or infrequently or short duration when for other reasons) because: Homebound Reason: Patient requires assistance of a person or device to safely leave home Attestation: My signature below is to certify that this patient is under my care and that I, or nurse practitioner, or a physician's delinquent tax collection assistant working with me, has a face-to -face encounter with this patient.
[2018-01-19 16:19] VITALS: BP 111/64
[2018-01-19] MEDS: Sodium Thiosulfate 25 GM in EMPTY BAG 1 EACH IVPB SCH (17:20)
[2018-01-19] MEDS ORDERED: Gentamicin 1 EACH in 0.9 % Sodium Chloride 100 ML IVPB PRN (18:00)
[2018-01-19] MEDS ORDERED: Gentamicin 80 MG in 0.9 % Sodium Chloride 100 ML IVPB SCH (18:00)
[2018-01-19] MEDS: *HR* FentaNYL (PF) 100 MCG/2 ML VIAL IVP PRN (18:02)
[2018-01-19] MEDS ORDERED: Aminoglycoside Consult 1 EACH MC ONE (20:02)
== END 2018-01-19 20:03 | disposition home health service (06) | DRG 951 ==
LOC: EMEROO 16:49 → 2ANU 16:49 → SUATTDRO 20:41 → 2ANU 21:28 → SUATTDRO 01-07 17:08
PROVIDERS: ADMIT Internal Medicine; ATTEND Hospitalist

== ENCOUNTER 2018-02-06 07:17 | Inpatient (IN) ==
[2018-02-06] MEDS ORDERED: Isovue-370 500 ML INFUS..BTL IV ONE (07:31)
--- NOTE | 2018-02-06 07:58 | Emergency Department Note ---
Disposition Clinical Impression: Calciphylaxis, Wound infection, Syncope, Weakness Disposition: Admitted As Inpatient General Adult HPI - General Chief complaint: ED Weakness Stated complaint: Generalized Weakness Time Seen by Provider: 02/06/18 07:20 Source: patient, EMS Limitations: no limitations Nursing Notes Reviewed: Yes Vital Signs Reviewed: Yes - History of Present Illness HPI Narrative: 43-year-old female presents emergency Department with concerns of increasing weakness and fatigue, and recent syncopal event. Patient was recently admitted to the hospital for dialysis catheter placement as well as further evaluation of her necrotic wounds on the chest abdomen and extremities. Patient has calciphylaxis which has caused severe necrotic wounds. Patient is supposed to receive antibiotics with dialysis however she has been poorly compliant with urinalysis and does not follow wound care. Patient states over the past 24 hours she has vomited and felt increasingly weak and fatigued. Patient apparently also syncopized prior to arrival per the family. They state that she was unconscious for "15-20 minutes", it is unclear whether she was actually unconscious or if she was just difficult to awaken. Pain Scale: 0 - Related Data Home Medications Medication Instructions Recorded Confirmed Albuterol Sulfate [Albuterol 2 puff IH Q4H PRN 09/09/16 01/26/18 Inhaler] Amiodarone [Cordarone] 200 mg PO DAILY 09/09/16 01/26/18 Atorvastatin [Lipitor] 40 mg PO HS 09/09/16 01/26/18 Budesonide/Formoterol 160/4.5 2 puff IH BIDR 09/09/16 01/26/18 [Symbicort 160/4.5] Ipratropium/Albuterol Neb [Duoneb] 3 ml IH QID PRN 09/09/16 01/26/18 Levothyroxine Sodium [Synthroid] 200 mcg PO QAM 09/09/16 01/26/18 Omeprazole [PriLOSEC] 20 mg PO DAILY 09/09/16 01/26/18 cloNIDine HCl [Clonidine HCl] 0.3 mg PO TID 09/09/16 01/26/18 hydrALAZINE [HydrALAZINE] 50 mg PO BID 09/09/16 01/26/18 predniSONE [PredniSONE] 10 mg PO DAILY 09/09/16 01/26/18 Acetaminophen [Acetaminophen ER] 650 mg PO Q4H PRN 12/23/16 01/26/18 Diphenoxylate/Atropine [Lomotil 1 each PO Q4H PRN 12/23/16 01/26/18 2.5 mg/0.025 mg] Montelukast [Singulair] 10 mg PO DAILY 02/16/17 01/26/18 Amlodipine Besylate 5 mg PO BID 01/07/18 01/26/18 Folic Acid 1 mg PO DAILY 01/07/18 01/26/18 Metoprolol Succinate [Toprol Xl] 25 mg PO DAILY 01/07/18 01/26/18 Potassium Chloride 20 meq PO DAILY 01/07/18 01/26/18 Previous Rx's Medication Instructions Recorded Apixaban [Eliquis] 5 mg PO BID #60 tablet 01/18/18 Gentamicin in NaCl, Iso-Osm 80 mg IV LEEANNA #8 piggyback 01/19/18 [Gentamicin 80 mg/Ns 100 ml Pb] HYDROcodone/Acet 10/325 mg [[place] 1 each PO Q8H PRN 5 Days #15 tablet 01/19/18 10-325 mg] Allergies Allergy/AdvReac Type Severity Reaction Status Date / Time heparin Allergy See Verified 01/07/18 13:14 Comments All systems ED: reviewed and negative except as stated. Review of Systems: As Per HPI Constitutional: Reports: weakness. Denies: fever Cardiovascular: Denies: chest pain, palpitations, dyspnea on exertion Respiratory: Denies: cough, dyspnea, wheezes Gastrointestinal: Reports: nausea, vomiting. Denies: abdominal pain Integumentary: Reports: lesions Neurological: Denies: headache, weakness, numbness Past Medical History - Past Medical History Attestation: Yes The following information was validated with the patient. 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 There is purulent drainage from multiple areas of these ulcers. Head: Normocephalic and atraumatic Neck: Supple, trachea midline and no tenderness Cardiovascular: RRR, no murmur, normal perfusion Respiratory: CTAB, no wheezing, cough, or respiratory distress Musculoskeletal: Generalized weakness of the bilateral upper and lower extremities. GI: Soft, nontender, nondistended. Bowel sounds present Neuro: A&O to person, place, time and situation. No focal deficits noted on exam - General Limitations: no limitations General appearance: alert Course Vital Signs Temperature 97.5 F L 02/06/18 07:22 Pulse Rate 84 02/06/18 07:22 Respiratory Rate 16 02/06/18 07:22 Blood Pressure 167/109 02/06/18 07:22 O2 Sat by Pulse Oximetry 0 02/06/18 07:22 Temperature 97.5 F L 02/06/18 07:22 Pulse Rate 84 02/06/18 07:22 Respiratory Rate 16 02/06/18 07:22 Blood Pressure 167/109 02/06/18 07:22 O2 Sat by Pulse Oximetry 0 02/06/18 07:22 Oxygen Delivery Oxygen Delivery Room Air Medical Decision Making - MDM Narrative Medical decision making narrative: I spoke with Dr. Fenton who agreed to get patient to dialysis today. Dr. Fenton reported that the patient has been noncompliant with her dialysis sessions and has not been receiving her antibiotics as intended. She also has not been following wound care which was initiated after her most recent admission to the hospital. Upon review of the patient's chart I see the patient had a history of similar ulcers in the past however there appears to be purulent drainage from multiple of these lesions. I will obtain a CT of the abdomen and pelvis to evaluate the extent of these lesions. There is no trauma with her syncopal episode. She does not have a headache or focal neurologic deficits. Patient will likely be admitted to the hospital for further care and evaluation of her weakness and fatigue and syncope as well as further further evaluation and care of her necrotic ulcers. - Medical Records Medical records reviewed: Yes I reviewed the patient's medical records. - Lab Data Lab results reviewed: Yes I reviewed the patient's lab results. - Radiology Data Radiology results reviewed: Yes I reviewed the patient's radiology results.
[2018-02-06 07:59] LABS: Basophils % 0.2 %; Eosinophils # 0.3 K/mcL (0.0-0.6); Eosinophils % 1.7 %; Hematocrit 28.2 % (35.3-44.9); Hemoglobin 9.4 g/dL (11.5-15.4); Immature Granulocytes % 1.7 % (0-4); Lymphocytes # 1.4 K/mcL (0.6-4.6); Lymphocytes % 8.5 %; Mean Corpuscular HGB Conc 33.3 g/dL (31.6-35.5); Mean Corpuscular Hemoglobin 32.5 pg (28.0-33.3); Mean Corpuscular Volume 97.6 fL (83.0-100.0); Mean Platelet Volume 10.7 fL (9.4-12.4); Monocytes % 11.8 %; Neutrophils # 12.8 K/mcL (1.6-8.9); Nucleated Red Blood Cells 0.2 /100 WBC (0); Platelet Count 163 K/mcL (140-400); Red Blood Count 2.89 M/mcL (3.82-4.97); Red Cell Distribution Width 19.7 % (11.5-14.5); Segmented Neutrophils % 76.1 %
[2018-02-06 08:05] LABS: Bilirubin,Urine Negative (Negative); Blood,Urine Moderate (Negative); Clarity,Urine Clear (Clear); Color,Urine Yellow (Yellow); Glucose,Urine (UA) Normal (Normal); Ketones,Urine Negative (Negative); Leukocyte Esterase,Urine Small (Negative); Nitrite,Urine Negative (Negative); Protein,Urine 100 mg/dL (Neg-Trace); Urobilinogen,Urine Normal (Normal)
[2018-02-06 08:07] LABS: Squamous Epithelial Cell,Urine Moderate per lpf (None-Few)
[2018-02-06 08:08] LABS: Bacteria,Urine Few per hpf (None-Few)
[2018-02-06 08:10] LABS: INR 2.2; Prothrombin Time 24.5 Seconds (9.4-12.1)
[2018-02-06 08:16] LABS: Albumin 2.1 g/dL (3.5-5.7); Albumin/Globulin Ratio 0.5 (1.1-2.2); Bilirubin,Direct 0.4 mg/dL (0.0-0.2); Bilirubin,Indirect 0.3 mg/dL (0.0-1.2); Bilirubin,Total 0.7 mg/dL (0.3-1.0); Calcium 7.4 mg/dL (8.6-10.3); Globulin 4.1 g/dL (2.4-3.5); Phosphorous 5.1 mg/dL (2.7-4.5); Potassium 5.7 mEq/L (3.5-5.1); Total Protein 6.2 g/dL (6.4-8.9)
[2018-02-06 09:12] LABS: Troponin I 0.04 ng/mL (< 0.04)
[2018-02-06] MEDS ORDERED: Calcium Gluconate 2,000 MG in 0.9 % Sodium Chloride 100 ML IVPB ONE (09:34)
[2018-02-06] MEDS ORDERED: Piperacillin/Tazobactam 3.375 GM in 0.9 % Sodium Chloride Mini Bag 100 ML IVPB ONE (09:35)
[2018-02-06] MEDS ORDERED: DAPTOmycin 750 MG in 0.9 % Sodium Chloride 100 ML IVPB SCH (10:00)
[2018-02-06] MEDS ORDERED: Naloxone 0.4 MG/ML INJ IVP PRN (11:01)
--- NOTE | 2018-02-06 11:15 | Internal Med History&Physical ---
Date of Encounter: 02/06/18 Time of Encounter: 10:00 Internal Medicine - H&P: HPI Chief complaint: Generalized weakness Admitted From: Home History of present illness: Ms. 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 Patient is a very poor historian and unable to tell me much history other than feeling weak without any specific complaints. Collateral information was obtained from chart review. She was discharged on 01/19 after being managed for calciphylaxis, infected necrotic abdominal wound-Pseudomonas, proteus and E.Coli ESBL. She was discharged on Gentamicin to be given during HD but does not seem to follow up regularly with HD sessions. 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 No fever/chills, N/V, abdominal pain, chest pain, SOB, cough, or sputum production. She is not sure whether her wound is getting larger but certainly noticed foul smelling discharges from them. She was afebrile and hemodynamically stable on presentation. Labs showed persistent leukocytosis with left shift, hyperkalemia, Cr 10.14, and troponin of 0.04. Past Med Surg Social Fam HX - Past Medical History Medical history: asthma, atrial fibrillation, diabetes, GI bleed, hyperlipidemia , hypertension, renal disease, thyroid disease Additional medical history: ANEMIA, BLEEDING ULCER,. KIDNEY DIALYSIS Psychiatric history: no psych history - Past Surgical History Surgical History: appendectomy, cholecystectomy, thyroidectomy, transplant ( kidney), other (endoscopy) Additional surgical history: KIDNEY TRANSPLANT 2007, TUBAL LIGATION, shunt danya - Social History Smoking Status: Never smoker Smokeless Tobacco Status: No Alcohol use: none Drug use: none Internal Medicine - H&P: Meds Albuterol Sulfate [Albuterol Inhaler] 2 puff IH Q4H PRN 09/09/16 [History] Amiodarone [Cordarone] 200 mg PO DAILY 09/09/16 [History] Atorvastatin [Lipitor] 40 mg PO HS 09/09/16 [History] Budesonide/Formoterol 160/4.5 [Symbicort 160/4.5] 2 puff IH BIDR 09/09/16 [ History] Ipratropium/Albuterol Neb [Duoneb] 3 ml IH QID PRN 09/09/16 [History] Levothyroxine Sodium [Synthroid] 200 mcg PO QAM 09/09/16 [History] Omeprazole [PriLOSEC] 20 mg PO DAILY 09/09/16 [History] cloNIDine HCl [Clonidine HCl] 0.3 mg PO TID 09/09/16 [History] hydrALAZINE [HydrALAZINE] 50 mg PO BID 09/09/16 [History] predniSONE [PredniSONE] 10 mg PO DAILY 09/09/16 [History] Acetaminophen [Acetaminophen ER] 650 mg PO Q4H PRN 12/23/16 [History] Montelukast [Singulair] 10 mg PO DAILY 02/16/17 [History] Amlodipine Besylate 5 mg PO BID 01/07/18 [History] Folic Acid 1 mg PO DAILY 01/07/18 [History] Metoprolol Succinate [Toprol Xl] 25 mg PO DAILY 01/07/18 [History] Potassium Chloride 20 meq PO DAILY 01/07/18 [History] Apixaban [Eliquis] 5 mg PO BID #60 tablet 01/18/18 [Rx] 3 Allergy/AdvReac Type Severity Reaction Status Date / Time heparin Allergy See Verified 01/07/18 13:14 Comments All Systems PM: A 10-system review of systems was performed and is negative for pertinent findings except as documented above in the HPI. - Constitutional Vitals: Temp Pulse Resp BP Pulse Ox 97.5 F L 81 20 152/94 98 02/06/18 07:22 02/06/18 09:15 02/06/18 09:15 02/06/18 09:15 02/06/18 09:15 Exam: General: Alert and oriented HEENT:EOM, pupils equal, round, and reactive. Cardiovascular:Normal S1 & S2, no murmurs or gallops. No JVD. Pulse regular. Lungs:Normal breath sounds, no wheezes or crackles. Abdomen:Soft, non-tender, no rigidity. Extremities: No deformity, no edema or tenderness Neurological:No focal neurological deficits, cranial nerves grossly intact. Skin: multiple necrotic wounds with foul-smelling discharges on abdomen and bilateral thighs. Pulses:Carotid and radial pulses normal +2. Rest of the physical exam is non-contributory Internal Med - H&P Results - Labs CBC & Chem 7: 02/06/18 07:52 02/06/18 07:52 Labs: Short CBC 02/06/18 Range/Units 07:52 WBC 16.9 H (4.3-11.1) K/mcL Hgb 9.4 L (11.5-15.4) g/dL Hct 28.2 L (35.3-44.9) % Plt Count 163 (140-400) K/mcL Neutrophils # 12.8 H (1.6-8.9) K/mcL BMP 02/06/18 07:52 Sodium 133 L Potassium 5.7 H Chloride 95 L Carbon Dioxide 16 L BUN 54 H Creatinine 10.14 H Glucose 71 Calcium 7.4 L Cardiac Enzymes 02/06/18 Range/Units 07:52 Troponin I 0.04 H* (< 0.04) ng/mL Liver Function 02/06/18 Range/Units 07:52 Total Bilirubin 0.7 (0.3-1.0) mg/dL Direct Bilirubin 0.4 H (0.0-0.2) mg/dL AST 23 (13-39) Units/L ALT 13 (7-52) Units/L Alkaline Phosphatase 288 H (34-104) Units/L Albumin 2.1 L (3.5-5.7) g/dL Urine 02/06/18 Range/Units 07:57 Urine Color Yellow (Yellow) Urine Clarity Clear (Clear) Urine pH 7.0 (5.0-8.0) pH Units Ur Specific Bowie 1.020 (1.010-1.025) Urine Protein 100 H (Neg-Trace) mg/dL Urine Glucose (UA) Normal (Normal) mg/dL - Impressions ITS Impressions Abdomen/Pelvis CT 02/06/18 07:31 IMPRESSION: 1. Since December 2017 there is relative decreased lung volumes with diffuse bandlike reticular densities most pronounced in the left lung base suggestive of atelectasis. Generalized interstitial prominence with background of hazy ground-glass attenuation suggests component of pulmonary edema. 2. There is trace left pleural effusion. There is also loculated pleural fluid which appears to be within the left major fissure measuring about 2.5 x 2.5 x 3.5 cm. 3. Some mediastinal shift to the left has developed. 4. A 1.6 cm subareolar left breast nodular density underlying the nipple. Please correlate with mammogram. 5. Interval removal of peritoneal dialysis catheter with decrease in amount of free intraperitoneal fluid. 6. Skin and subcutaneous tissue defect in the left lower abdomen where previously the peritoneal dialysis catheter was coursing through. 7. Some asymmetric edema/thickening of the ascending colon including hepatic flexure raises the possibility of colitis although this could be reactive. Review on follow-up studies. D/ : / 02/06/2018 10:17:06 Karri Kong MD / marian Interpreting Provider: Karri Kong MD Chest X-Ray 02/06/18 07:32 IMPRESSION: No evidence of acute cardiopulmonary disease. D/ / Bradley Phillips MD / Bradley Phillips MD Interpreting Provider: Bradley Phillips MD Chest CT 02/06/18 07:53 IMPRESSION: 1. Since December 2017 there is relative decreased lung volumes with diffuse bandlike reticular densities most pronounced in the left lung base suggestive of atelectasis. Generalized interstitial prominence with background of hazy ground-glass attenuation suggests component of pulmonary edema. 2. There is trace left pleural effusion. There is also loculated pleural fluid which appears to be within the left major fissure measuring about 2.5 x 2.5 x 3.5 cm. 3. Some mediastinal shift to the left has developed. 4. A 1.6 cm subareolar left breast nodular density underlying the nipple. Please correlate with mammogram. 5. Interval removal of peritoneal dialysis catheter with decrease in amount of free intraperitoneal fluid. 6. Skin and subcutaneous tissue defect in the left lower abdomen where previously the peritoneal dialysis catheter was coursing through. 7. Some asymmetric edema/thickening of the ascending colon including hepatic flexure raises the possibility of colitis although this could be reactive. Review on follow-up studies. D/ : / 02/06/2018 10:17:06 Karri Kong MD / marian Interpreting Provider: Karri Kong MD - VTE Reasons for not Prescribing Prophylaxis: Not indicated-Anticoagulated or INR therapeutic - Assessment and plan (1) Wound infection Current Visit: Yes Status: Acute Assessment and plan: hx of polymicrobial abdominal wounds, was supposed to be on IV genta with HD but compliance is questionable presented with worsening malaise and persistent leukocytosis. Does not meet other SIRS criteria. Lactic acid normal started on IV dapto/vanc/zosyn in the ED, will switch to genta per previous ID notes and keep vanc for MRSA coverage ID consult a/w for wound care's input on specimen for culture -> if not surgically obtained , will get wound culture from the drainage coordinate with nephro for timing of administration of abx (2) Calciphylaxis Current Visit: Yes Status: Acute Assessment and plan: mx as above (3) ESRD on hemodialysis Current Visit: No Status: Chronic Assessment and plan: associated with K of 5.7, no EKG changes HD per nephro hold potassium supplements (4) Afib Current Visit: No Status: Chronic Assessment and plan: rate controlled with bb and AC with apixaban Qualifiers: Atrial fibrillation type: paroxysmal Qualified Code(s): I48.0 - Paroxysmal atrial fibrillation (5) DVT prophylaxis Current Visit: No Status: Acute Assessment and plan: on apixaban - Time Spent With Patient Total time spent is greater than 50% in coordination of care (as documented) at patient's floor/unit and/or counseling patient:
[2018-02-06 12:43] LABS: Hepatitis B Surface Antigen Nonreactive (Nonreactive)
--- NOTE | 2018-02-06 13:13 | Infectious Disease Consult ---
Date of Encounter: 02/06/18 Time of Encounter: 13:11 Assessment and Plan (1) Leukocytosis Status: Acute Assessment and plan: The patient's WBC remains elevated, but is trending down from previous admissions. No other sepsis criteria. Continue to trend. Blood cultures drawn 02/06/18 are pending x 2 sets. Qualifiers: Leukocytosis type: bandemia Qualified Code(s): D72.825 - Bandemia (2) Wound infection Status: Acute Assessment and plan: Location: Abdominal wounds. Likely multifactorial: poorly controlled DM, obesity, non-compliance with wound care and antibiotics. Causative organism unclear, but likely polymicrobial. Previous wound culture positive for Pseudomonas stutzeri, E. coli ESBL, and Proteus. Failed to get IV Gentamicin since she wasn't going to HD. Clinically, there is marked regression in the patient's wounds since I saw her last. The wounds that the patient will let me assess are necrotic and foul- smelling. CT of the abdomen and pelvis does not show any underling abscess. Obtain wound cultures. Recommend wound care to evaluate. The patient would likely benefit from transfer to a facility with plastic surgery service as she will likely require aggressive debridements and skin flaps to aid in healing these large wounds. Continue Gentamicin. Continue Vancomycin IV. Pharmacy to dose. Goal trough ~15. Continue Zosyn 3.375 grams IV Q12H. Duration of treatment depends on the clinical picture. Dose-adjust antibiotics for HD. Will ask pharmacy to help with dosing her antibiotics. (3) Pleural effusion Status: Acute Assessment and plan: CT chest showed bandlike reticular densities most pronounced in the left lung base suggestive of atelectasis with generalizes interstitial prominence with background of hazy ground-glass attenuation suggestive of pulmonary edema. There was a trace left pleural effusion with a loculated pleural fluid within the left major fissure measuring about 2.5x2.5x3.5cm. Recommend pulmonology to evaluate for possible loculated pleural fluid. (4) Weakness Status: Acute Assessment and plan: Likely secondary to extensive wound infections. Blood cultures are pending x 2 sets. Continue supportive care. (5) Calciphylaxis Status: Chronic Assessment and plan: Previous skin biopsies negative, but clinical picture consistent with calciphylaxis and the patient reported improvement in her symptoms when she was receiving treatment. Wound care as above. Consider transfer for evaluation by plastic surgery. Continue antibiotics as above. Sodium thiosulfate per nephrology. (6) ESRD (end stage renal disease) Status: Chronic Assessment and plan: Nephrology consulted and following. (7) Anemia in chronic kidney disease (CKD) Status: Chronic Qualifiers: Chronic kidney disease stage: on chronic dialysis Qualified Code(s): N18.6 - End stage renal disease; D63.1 - Anemia in chronic kidney disease; Z99.2 - Dependence on renal dialysis (8) Afib Status: Chronic Qualifiers: Atrial fibrillation type: paroxysmal Qualified Code(s): I48.0 - Paroxysmal atrial fibrillation Infectious Disease HPI - Data of Consult Patient: known to practice within the last 3 years Consult date: 02/06/18 Requesting Physician: Michael Smith MD Primary Care Provider: Peter Vicente DO - Consult Narrative Reason for consult: Wound infections History of present illness: Ms. Alexis is a 43 year old female with a past medical history of A. fib on Coumadin, diabetes, GI bleed, hyperlipidemia, hypertension, end-stage renal disease of unknown etiology on dialysis for 1 year, calciphylaxis back in 2016, status post failed renal transplant in 2007 currently on chronic oral prednisone. The patient was admitted to the hospital 02/06/18 for wound infection. We are consulted 02/06/18 for wound infection. Briefly, the patient is a 43 year old female with a past medical history as stated above. The patient was admitted to the hospital back in December and we were consulted to assist with abdominal wound infection. At that time, the patient had been admitted for progressively worsening abdominal wound that had developed necrosis and foul-smelling drainage. She was evaluated by Dermatology and had a biopsy that did not reveal a definitive diagnosis of calciphylaxis, but because the patient improved with administration of sodium thiosulfate, it was presumed that that was the cause of her symptoms. Additionally, the patient had a wound culture that was positive for Pseudomonas stutzeri, E. coli ESBL, and Proteus. She was discharged home to receive IV gentamicin with HD, as well as additional sodium thiosulfate. She was also scheduled for repeat biopsy with Dermatology, which was completed, but was again negative for calciphylaxis and showed possible embolic process concerning for Coumadin necrosis. She was re- admitted to the hospital last week after her AV fistula clotted and she had a temporary dialysis catheter placed. According to the nephrology notes, the patient has been non-compliant with going to HD and thus has not received adequate antibiotic therapy or sodium thiosulfate. Per the patient, she has missed 5 HD sessions since she was started on IV antibiotics. The patient states that Monday she noticed foul-smelling drainage from the wounds and states she started to feel poorly yesterday. She denies fevers, chills, or rigors. Denies chest pain, shortness of breath, or cough. Denies nausea, diarrhea, or constipation. Reports one episode of vomiting yesterday. Reports adequate liquid intake, but poor solid food intake. She reports the ulcerations are very painful and are worse than when she was in the hospital. Upon admission to the ER, the patient is afebrile and hemodynamically stable. Her WBC is elevated, but is improved from the last time she was in the hospital. Serum creatinine is elevated consistent with her ESRD. CT of the chest, abdomen , and pelvis show atelectasis or pulmonary edema, trace left pleural effusion and a loculated pleural effusion in the left major fissure. There is also noted to be mediastinal shift to the left and a left breast density. There was also ascending colon wall thickening consistent with colitis vs. reactive. The patient was started on IV Vanc, Zosyn, and Gentamicin. We've been asked to evaluate and make further recommendations. During my exam today, the patient is somnolent and somewhat difficult to keep awake. Some information is obtained from the medical record. ROS as stated above. The patient lives at home with her boyfriend and son. She does not work outside the home. She denies tobacco, alcohol, or illicit drug use. She has dogs at home, but denies any bites, licks, or scratches. She denies travel outside the [facility]. CC: Michael Smith MD Past Med Surg Social Fam HX - Past Medical History Attestation: Yes The following information was validated with the patient. Source: patient, old records reviewed, nursing notes reviewed Medical history: asthma, atrial fibrillation, diabetes, GI bleed, hyperlipidemia , hypertension, renal disease, thyroid disease Additional medical history: ANEMIA, BLEEDING ULCER,. KIDNEY DIALYSIS Psychiatric history: no psych history - Past Surgical History Surgical History: appendectomy, cholecystectomy, thyroidectomy, transplant ( kidney), other (endoscopy) Additional surgical history: KIDNEY TRANSPLANT 2007, TUBAL LIGATION, shunt danya - Social History Smoking Status: Never smoker Smokeless Tobacco Status: No Alcohol use: none Drug use: none Occupational status: unemployed Current living situation: Home, With Family Activity Level: Independent ambulation Recent Out of Country Travel Within the Last 8 Weeks: No Exposure or Possible Exposure to Illness During Travel: No Infectious Disease-CN:Meds Albuterol Sulfate [Albuterol Inhaler] 2 puff IH Q4H PRN 09/09/16 [History] Amiodarone [Cordarone] 200 mg PO DAILY 09/09/16 [History] Atorvastatin [Lipitor] 40 mg PO HS 09/09/16 [History] Budesonide/Formoterol 160/4.5 [Symbicort 160/4.5] 2 puff IH BIDR 09/09/16 [ History] Ipratropium/Albuterol Neb [Duoneb] 3 ml IH QID PRN 09/09/16 [History] Levothyroxine Sodium [Synthroid] 200 mcg PO QAM 09/09/16 [History] Omeprazole [PriLOSEC] 20 mg PO DAILY 09/09/16 [History] cloNIDine HCl [Clonidine HCl] 0.3 mg PO TID 09/09/16 [History] hydrALAZINE [HydrALAZINE] 50 mg PO BID 09/09/16 [History] predniSONE [PredniSONE] 10 mg PO DAILY 09/09/16 [History] Acetaminophen [Acetaminophen ER] 650 mg PO Q4H PRN 12/23/16 [History] Montelukast [Singulair] 10 mg PO DAILY 02/16/17 [History] Amlodipine Besylate 5 mg PO BID 01/07/18 [History] Folic Acid 1 mg PO DAILY 01/07/18 [History] Metoprolol Succinate [Toprol Xl] 25 mg PO DAILY 01/07/18 [History] Potassium Chloride 20 meq PO DAILY 01/07/18 [History] Apixaban [Eliquis] 5 mg PO BID #60 tablet 01/18/18 [Rx] 3 Allergy/AdvReac Type Severity Reaction Status Date / Time heparin Allergy See Verified 01/07/18 13:14 Comments All systems: reviewed and no additional remarkable complaints except as stated Exam - Constitutional Vitals: Temp Pulse Resp BP Pulse Ox 97.5 F L 78 19 164/96 100 02/06/18 07:22 02/06/18 11:01 02/06/18 11:01 02/06/18 11:01 02/06/18 11:01 General appearance: cooperative, morbidly obese, no acute distress - Head Head exam: Present: atraumatic, normal inspection, normocephalic - Eye Eye exam: Present: EOMI, normal appearance, PERRL Pupils: Present: normal accommodation - ENT ENT exam: Present: mucous membranes moist - Neck Neck exam: Present: normal inspection - Respiratory Respiratory exam: Present: CTAB. Absent: rales, respiratory distress, rhonchi, wheezes - Cardiovascular Cardiovascular exam: Present: irregular rhythm. Absent: tachycardia - GI/Abdominal GI/Abdominal exam: Present: distended (obese), normal bowel sounds, soft, tenderness (Wounds) - Extremities Exam Additional comments: Multiple dressing noted to the upper portion of the BLE. Patient declines removal of dressings at this time. - Neurological Exam Neurological exam: Present: alert, oriented X3, no focal deficits - Psychiatric Psychiatric exam: Present: normal affect, normal mood - Skin Skin exam: Present: dry, intact, normal color, warm - Expanded Skin Exam 1 - Large necrotic ulcer. 2 - Large necrotic ulcer with dark yellow purulent drainage, foul-smelling. 3 - Necrotic lesion 4 - Large necrotic ulcer with fibrinous slough around the edges and some dark yellow/green foul-smelling drainage. 5 - Allevyn dressing. Patient refused removal. 6 - Allevyn dressing. Patient refused removal. 7 - Allevyn dressing. Patient refused removal. 8 - Guaze dressing. Patient refused removal. Infectious Disease CN: Results - Labs CBC & Chem 7: 02/07/18 06:28 02/07/18 12:59 - VTE Reasons for not Prescribing Prophylaxis: Not indicated-Anticoagulated or INR therapeutic Consult Discharge Plan - Plan Referrals: Peter Vicente DO [Primary Care Provider] - - Attending Attestation I examined this patient and my medical decision-making was reviewed with the Resident Physician. I agree with the documented findings, disposition and treatment plan as described except to the extent set forth below. This is an addendum to original report dictated by Estefania Ojeda CNP. Please refer to Estefania's note for full detail. Patient is a 43-year-old woman well-known to our service that was recently admitted with skin infection and necrosis with causative organism of Pseudomonas , Proteus and ESBL Escherichia coli was treated with gentamicin IV after dialysis. Patient apparently clinically was doing worse and came to the ER for weakness fatigue and does clinically not doing well. On exam patient appeared ill. Very foul-smelling wounds that are necrotic. Assessment and plan Wound infection causative organism likely polymicrobial but previously had Pseudomonas, Escherichia coli ESBL and Proteus At the clinical could not the wound and the swoons need aggressive debridement and maybe graft placement. I think patient needs plastic surgery evaluation. Recommend transferring to a higher level facility that has plastic surgery service. In the meantime I agree with broad-spectrum antibiotics including vancomycin, Zosyn. Patient cultures have been obtained. Prognosis overall guarded. Patient needs adequate control.
--- NOTE | 2018-02-06 13:35 | Nephrology Consult Note ---
<Gisel Araujo Jarrett - Last Filed: 02/06/18 14:03> Date of Encounter: 02/06/18 Time of Encounter: 13:35 Assessment and Plan (1) ESRD (end stage renal disease) on dialysis Current Visit: Yes Status: Acute Current regimen is TTS at [facility]. Last treatment was Monday, February 03. Before that she missed approximately 2-3 treatments. Will order additional UF or HD as needed. Avoid nephrotoxins and renal dose all medications. We will continue sodium thiosulfate TTS with HD treatments. (3) Hyperkalemia Current Visit: Yes Status: Acute Potassium is 5.7, HD is ordered for this afternoon. (4) Weakness Current Visit: Yes Status: Acute Per primary. (5) Calciphylaxis Current Visit: Yes Status: Acute History of Present Illness - Reason for Consult Consult date: 02/06/18 end stage renal disease - Chief Complaint weakness - History of Present Illness Ms. Alexis is a 43 year old female with PMH: A. fib on Coumadin, diabetes, GI bleed, hyperlipidemia, hypertension, end-stage renal disease of unknown etiology on dialysis for 1 year, calciphylaxis back in 2016. The patient was admitted in December of this year for worsening abdominal wounds and was then under the care of Dr. Luong and was doing peritoneal dialysis. When [place] [facility] specialist took over care of this patient the PD catheter was removed and she was started on hemodialysis. The patient was admitted last week for complications with the fistula. She did get a temporary line was dialyzed and then fistula was fixed by Dr. Alvares at [facility] [place]. Since starting hemodialysis patient has been noncompliant. Patient was to get IV antibiotics and sodium thiosulfate but has missed at least 5 sessions. A biopsy that was completed last admission for the abdominal wounds, was negative for calciphylaxis. A second biopsy with Dr. Salgado was also negative for calciphylaxis, however it did show possible emboli process concerning for Coumadin necrosis. The patient came to the ER for generalized weakness and insert "just not feeling well." She admits that her wounds are more painful than they were last time and admits that they have a foul-smelling drainage again. Her boyfriend helps her take care of the wounds. She has not seen the wound clinic which she was advised by Dr. Fenton last stay. Will consult wound care for aggressive wound care. She admits that her last treatment was Monday and that it had been over a week since she had last had dialysis. She attributes back pain and just overall not feeling well as to why she has missed so many times. HD will be ordered for today. She denies nausea vomiting diarrhea. She does admit to not taking much solid food intake, but is drinking "okay". No recent medication changes. Does live with her boyfriend and son. Denies tobacco alcohol or illegal drug use. Past Med Surg Social Fam HX - Past Medical History Medical history: asthma, atrial fibrillation, diabetes, GI bleed, hyperlipidemia , hypertension, renal disease, thyroid disease Additional medical history: ANEMIA, BLEEDING ULCER,. KIDNEY DIALYSIS Psychiatric history: no psych history - Past Surgical History Surgical History: appendectomy, cholecystectomy, thyroidectomy, transplant ( kidney), other (endoscopy) Additional surgical history: KIDNEY TRANSPLANT 2007, TUBAL LIGATION, shunt danya - Social History Smoking Status: Never smoker Smokeless Tobacco Status: No Alcohol use: none Drug use: none Medications and Allergies Albuterol Sulfate [Albuterol Inhaler] 2 puff IH Q4H PRN 09/09/16 [History] Amiodarone [Cordarone] 200 mg PO DAILY 09/09/16 [History] Atorvastatin [Lipitor] 40 mg PO HS 09/09/16 [History] Budesonide/Formoterol 160/4.5 [Symbicort 160/4.5] 2 puff IH BIDR 09/09/16 [ History] Ipratropium/Albuterol Neb [Duoneb] 3 ml IH QID PRN 09/09/16 [History] Levothyroxine Sodium [Synthroid] 200 mcg PO QAM 09/09/16 [History] Omeprazole [PriLOSEC] 20 mg PO DAILY 09/09/16 [History] cloNIDine HCl [Clonidine HCl] 0.3 mg PO TID 09/09/16 [History] hydrALAZINE [HydrALAZINE] 50 mg PO BID 09/09/16 [History] predniSONE [PredniSONE] 10 mg PO DAILY 09/09/16 [History] Acetaminophen [Acetaminophen ER] 650 mg PO Q4H PRN 12/23/16 [History] Montelukast [Singulair] 10 mg PO DAILY 02/16/17 [History] Amlodipine Besylate 5 mg PO BID 01/07/18 [History] Folic Acid 1 mg PO DAILY 01/07/18 [History] Metoprolol Succinate [Toprol Xl] 25 mg PO DAILY 01/07/18 [History] Potassium Chloride 20 meq PO DAILY 01/07/18 [History] Apixaban [Eliquis] 5 mg PO BID #60 tablet 01/18/18 [Rx] 3 Allergy/AdvReac Type Severity Reaction Status Date / Time heparin Allergy See Verified 01/07/18 13:14 Comments Review of Systems ROS unobtainable: other (as per HPI) Exam - Vital Signs Vital signs: Initial Vital Signs Temp Pulse Resp BP Pulse Ox 97.5 F L 84 16 167/109 0 02/06/18 07:22 02/06/18 07:22 02/06/18 07:22 02/06/18 07:22 02/06/18 07:22 Vital Signs - Last 8 Hours Temp Pulse Resp BP Pulse Ox 02/06/18 13:19 97.5 F L 79 17 150/90 96 - General Appearance General appearance: well-developed, well-nourished EENT: ATNC, hearing intact, vision intact Neck: supple Respiratory: clear Cardiology: no edema, normal S1, normal S2 - Dialysis Access Dialysis Vascular Access: Arteriovenous Fistula thrill: Yes bruit: Yes Gastrointestinal: normoactive bowel sounds, no tenderness, no guarding Integumentary: no rash, warm and dry Neurologic: alert and oriented x3 Psychiatric: mood/affect appropriate, cooperative Results - Lab Results 02/06/18 07:52 02/06/18 07:52 Most recent lab results Calcium 7.4 mg/dL (8.6-10.3) L 02/06/18 07:52 Phosphorus 5.1 mg/dL (2.7-4.5) H 02/06/18 07:52 Magnesium 2.0 mg/dL (1.6-2.6) 02/06/18 07:52 Consult Discharge Plan - Plan Referrals: Peter Vicente DO [Primary Care Provider] - <Saran Wei - Last Filed: 02/11/18 12:35> Date of Encounter: 02/06/18 Assessment and Plan (1) ESRD (end stage renal disease) on dialysis Current Visit: Yes Status: Acute (2) Anemia Current Visit: No Status: Chronic Qualifiers: Anemia type: other cause Other causes of anemia: chronic disease, other Qualified Code(s): D63.8 - Anemia in other chronic diseases classified elsewhere (3) Calciphylaxis Current Visit: No Status: Chronic (4) AV fistula thrombosis Current Visit: Yes Status: Acute Qualifiers: Encounter type: subsequent encounter Qualified Code(s): T82.868D - Thrombosis due to vascular prosthetic devices, implants and grafts, subsequent encounter Past Med Surg Social Fam HX - Family History Grandmother History Unknown: Yes Exam - Vital Signs Vital signs: Initial Vital Signs Temp Pulse Resp BP Pulse Ox 97.5 F L 84 16 167/109 0 02/06/18 07:22 02/06/18 07:22 02/06/18 07:22 02/06/18 07:22 02/06/18 07:22 Vital Signs - Last 8 Hours Temp Pulse Resp BP Pulse Ox 02/11/18 11:33 99.0 F 65 16 99/65 90 02/11/18 08:08 98.3 F 66 20 91/60 92 02/11/18 07:51 18 93 Intake and Output 02/10/18 02/11/18 02/11/18 23:59 07:59 15:59 Intake Total 100 / 100 120 / 120 Balance 100 / 100 120 / 120 Intake: IV Fluids 100 / 100 Zosyn 3.375 GM In 0.9 % Sodium 100 / 100 Chloride (Mini-Bag +) 100 ML @ 25 mls/hr IVPB Q12HR [facility] Rx#: [id number] Oral 120 / 120 Other: Weight 80 kg Blood Glucose* 144 105 Patient Weight 02/11/18 23:59 Weight 80 kg Results - Lab Results 02/11/18 04:45 02/11/18 04:45 Most recent lab results ABG pH 7.40 pH Units (7.32-7.45) 02/06/18 14:00 ABG pCO2 30 mmHg (35-45) L 02/06/18 14:00 ABG pO2 85 mmHg (85-104) 02/06/18 14:00 ABG HCO3 18 mEq/L (21-27) L 02/06/18 14:00 ABG O2 Saturation 97 % (95-98) 02/06/18 14:00 Calcium 7.0 mg/dL (8.6-10.3) L 02/11/18 04:45 Phosphorus 5.1 mg/dL (2.7-4.5) H 02/06/18 07:52 Magnesium 2.0 mg/dL (1.6-2.6) 02/06/18 07:52 - Attending Attestation I examined this patient and my medical decision-making was reviewed with the Resident Physician/DECISION UNIT RN. I agree with the documented findings, disposition and treatment plan as described except to the extent set forth below. Pt seen and examined in brief with PMH of Afib on eliquis, ESRD now on HD but previously on PD for a year before developing necrotic wounds in abdomen, breasts and upper thighs being treated for presumed calciphylasix. She was previously followed by Dr Luong who "semi-retired". Since switch to HD , pt has been noncompliant with her treatments (missing both abx; gentamicin and sodium thiosulfate) and failed to establish with wound care. She has also had cannulation issues with her AVF requiring intervention by vasc. surgery with Dr Null in [place]. On exam very foul smelling, purulent necrotic lesions noted on abdomen more advanced in size than previous. Also noted lesion on upper thighs and both breasts, dry lesions. Last HD noted on 02/03 with potassium today at 5.7. will resume HD today with UF as tolerated. Will dose with gentamicin after HD along with sodium thiosulfate. Will consult wound care and ID to follow as well.
[2018-02-06 14:06] LABS: ABG Base Excess -6 mEq/L (-2 to 3); ABG HCO3 18 mEq/L (21-27); ABG Oxygen Saturation 97 % (95-98); ABG PCO2 30 mmHg (35-45); ABG PO2 85 mmHg (85-104); ABG TCO2 19 mEq/L (20-26)
[2018-02-06] MEDS ORDERED: 0.9 % Sodium Chloride 250 ML IVC PRN (14:17)
[2018-02-06] MEDS ORDERED: 0.9 % Sodium Chloride 1,000 ML PRIME SCH (14:30)
--- NOTE | 2018-02-06 15:31 | General Surgery Consult Note ---
Date of Encounter: 02/08/18 Time of Encounter: 15:29 Assessment and Plan (1) Calciphylaxis Current Visit: No Status: Chronic patient with multiple small and large bilateral thigh, abdominal calciphylaxis wounds (unable to check buttocks due to being at dialysis) - will evaluate tomorrow some wounds are covered with hard eschar and currently not infected, others are necrotic and were debrided at bedside by myself patient does not require transfer to another facility nor is there anything plastic surgery has to offer that cannot be done here first priority is to get her wounds debrided and cleaned up, note dressing orders below a/p (2) Wound infection Current Visit: Yes Status: Acute 1.right anterior middle thigh calciphylaxis eschar wound, unstageable (4 cm L x 3 cm W x 0.1 cm D) -wash with soap and water daily, apply betadine (swab) to open wound, ensure get wound edges, ok to cover with gauze and tape or allevyn, address daily 2. right medial thigh eschared calciphylaxis wound, unstageable (2 cm L x 1 cm w x 0.1 cm D) - wash with soap and water daily, apply betadine (swab) to open wound, ensure get wound edges, ok to cover with gauze and tape or allevyn, address daily 3. right proximal thigh necrotic foul smelling purulent calciphylaxis wound into subcutaneous fat (2 cm L x 2 cm W x 0.3 cm D)- irrigate with saline, pack wound with kerlix moistened with 0.25% dakins, cover with abd pad and secure with tape, change daily 4. right lower quadrant abdominal necrotic foul smelling purulent calciphylaxis wound into subcutaneous tissue (17 cm W x 8 cm L x 10 cm D)- irrigate with saline, pack wound with kerlix moistened with 0.25% dakins, cover with abd pad and secure with tape, change daily 5. left lower quadrant abdominal necrotic foul smelling purulent calciphylaxis wounds x 2 into subcutaneous fat (15 cm L x 10 cm W x 0.1 cm deep, unstageable, and 6 cm W x 7 cm L x 0.6 cm D into subcut fat) - irrigate with saline, pack wound with kerlix moistened with 0.25% dakins, cover with abd pad and secure with tape, change daily 6. left anterior thigh eschared calciphylaxis wound, unstageable (6 cm L x 5 cm W x 0.1 cm D) - wash with soap and water daily, apply betadine (swab) to open wound, ensure get wound edges, ok to cover with gauze and tape or allevyn, address daily 7. middle lower abdominal eschared and necrotic foul smelling wound into subcutanous fat ( 4 cm W x 3 cm L x 0.5 cm D)- wash with soap and water, pack wound with 0.25% dakins on 4x4 gauze, cover with gauze and secure with tape, change daily discussed with patient that several of her wounds were infected and had necrotic tissue and required debridement, patient consented right proximal thigh wound was sharply debrided with 12 blade removing necrotic and infected tissue into subcutaneous tissue, right lower quadrant abdominal wound was sharply debrided with 12 blade removing necrotic and infected tissue into the subcutaneous tissue, middle lower abdominal and left lower quadrant abdomina wall wounds x 2 were sharply debrided of necrotic and infected tissue into subcutaneous tissue with a 12 blade any bleeding stopped with pressure hemostatasis and wounds were dressed as above , she tolerated procedures well History of Present Illness Consult date: 02/06/18 Reason for consult: wound care Requesting physician: Michael Smith History of present illness: Patient is a 43 yo morbidly obese female with multiple comorbidities. She was seen several weeks ago regarding her calciphylaxis wounds and wound care instituted. Patient is unable to tell me what has been done to dress these wounds over the last few weeks. She does feel her wounds are getting worse. She has a lot of pain at the sites. She is dialysis dependent, diabetic. Past Med Surg Social Fam HX - Past Medical History Source: patient, old records reviewed Medical history: asthma, atrial fibrillation, diabetes, GI bleed, hyperlipidemia , hypertension, renal disease, thyroid disease Additional medical history: ANEMIA, BLEEDING ULCER,. KIDNEY DIALYSIS Psychiatric history: no psych history - Past Surgical History Surgical History: appendectomy, cholecystectomy, thyroidectomy, transplant ( kidney), other (endoscopy) Additional surgical history: KIDNEY TRANSPLANT 2007, TUBAL LIGATION, shunt danya - Social History Smoking Status: Never smoker Smokeless Tobacco Status: No Alcohol use: none Drug use: none - Family History Grandmother History Unknown: Yes Medications and Allergies Albuterol Sulfate [Albuterol Inhaler] 2 puff IH Q4H PRN 09/09/16 [History] Amiodarone [Cordarone] 200 mg PO DAILY 09/09/16 [History] Atorvastatin [Lipitor] 40 mg PO HS 09/09/16 [History] Budesonide/Formoterol 160/4.5 [Symbicort 160/4.5] 2 puff IH BIDR 09/09/16 [ History] Ipratropium/Albuterol Neb [Duoneb] 3 ml IH QID PRN 09/09/16 [History] Levothyroxine Sodium [Synthroid] 200 mcg PO QAM 09/09/16 [History] Omeprazole [PriLOSEC] 20 mg PO DAILY 09/09/16 [History] cloNIDine HCl [Clonidine HCl] 0.3 mg PO TID 09/09/16 [History] hydrALAZINE [HydrALAZINE] 50 mg PO BID 09/09/16 [History] predniSONE [PredniSONE] 10 mg PO DAILY 09/09/16 [History] Acetaminophen [Acetaminophen ER] 650 mg PO Q4H PRN 12/23/16 [History] Montelukast [Singulair] 10 mg PO DAILY 02/16/17 [History] Amlodipine Besylate 5 mg PO BID 01/07/18 [History] Folic Acid 1 mg PO DAILY 01/07/18 [History] Metoprolol Succinate [Toprol Xl] 25 mg PO DAILY 01/07/18 [History] Potassium Chloride 20 meq PO DAILY 01/07/18 [History] Apixaban [Eliquis] 5 mg PO BID #60 tablet 01/18/18 [Rx] 3 Allergy/AdvReac Type Severity Reaction Status Date / Time heparin Allergy See Verified 01/07/18 13:14 Comments Review of Systems All systems PM: reviewed and no additional remarkable complaints except as stated All systems PM: The remainder of the systems were reviewed and are negative General Surgery Exam Initial Vital Signs Temp Pulse Resp BP Pulse Ox 97.5 F L 84 16 167/109 0 02/06/18 07:22 02/06/18 07:22 02/06/18 07:22 02/06/18 07:22 02/06/18 07:22 - General physical appearance moderate distress, moderate pain, chronically ill, obese - Eyes PERRL, normal ocular movement - ENT normal mucosa, normocephalic - Neck trachea midline - Respiratory normal expansion, normal respiratory effort - Cardiovascular Cardiovascular exam: Present: RRR - Abdomen Abdomen general surgery: Present: tender (at wounds) - Integumentary Integumentary general surgery: Present: other (see below) - Neurologic Present: CN 2-12 grossly intact - Musculoskeletal Present: normal posture - Psychiatric Psychiatric general surgery: Present: A&Ox3 - Additional Findings right anterior middle thigh calciphylaxis eschar wound right medial thigh eschared calciphylaxis wound right proximal thigh necrotic foul smelling purulent calciphylaxis wound into subcutaneous fat right lower quadrant abdominal necrotic foul smelling purulent calciphylaxis wound into subcutaneous tissue left lower quadrant abdominal necrotic foul smelling purulent calciphylaxis wounds x 2 into subcutaneous fat left anterior thigh eschared calciphylaxis wound Exam Initial Vital Signs Temp Pulse Resp BP Pulse Ox 97.5 F L 84 16 167/109 0 02/06/18 07:22 02/06/18 07:22 02/06/18 07:22 02/06/18 07:22 02/06/18 07:22 Results - Labs 02/08/18 08:18 02/08/18 04:00 Abnormal lab results WBC 16.9 K/mcL (4.3-11.1) H 02/06/18 07:52 RBC 2.89 M/mcL (3.82-4.97) L 02/06/18 07:52 Hgb 9.4 g/dL (11.5-15.4) L 02/06/18 07:52 Hct 28.2 % (35.3-44.9) L 02/06/18 07:52 RDW 19.7 % (11.5-14.5) H 02/06/18 07:52 Neutrophils # 12.8 K/mcL (1.6-8.9) H 02/06/18 07:52 Monocytes # 2.0 K/mcL (0.0-1.3) H 02/06/18 07:52 Nucleated RBCs/100 WBC 0.2 /100 WBC (0) H 02/06/18 07:52 PT 24.5 Seconds (9.4-12.1) H 02/06/18 07:52 APTT 43.0 Seconds (26.0-36.0) H 02/06/18 07:52 ABG pCO2 30 mmHg (35-45) L 02/06/18 14:00 ABG HCO3 18 mEq/L (21-27) L 02/06/18 14:00 ABG Total CO2 19 mEq/L (20-26) L 02/06/18 14:00 ABG Base Excess -6 mEq/L (-2 to 3) L 02/06/18 14:00 Sodium 133 mEq/L (136-145) L 02/06/18 07:52 Potassium 5.7 mEq/L (3.5-5.1) H 02/06/18 07:52 Chloride 95 mEq/L (98-107) L 02/06/18 07:52 Carbon Dioxide 16 mEq/L (23-29) L 02/06/18 07:52 BUN 54 mg/dL (6-20) H 02/06/18 07:52 Creatinine 10.14 mg/dL (0.60-1.20) H 02/06/18 07:52 Est GFR ( Amer) 5 (> 60) L 02/06/18 07:52 Est GFR (Non-Af Amer) 4 (> 60) L 02/06/18 07:52 BUN/Creatinine Ratio 5 (6-26) L 02/06/18 07:52 Calcium 7.4 mg/dL (8.6-10.3) L 02/06/18 07:52 Phosphorus 5.1 mg/dL (2.7-4.5) H 02/06/18 07:52 Direct Bilirubin 0.4 mg/dL (0.0-0.2) H 02/06/18 07:52 Alkaline Phosphatase 288 Units/L (34-104) H 02/06/18 07:52 Troponin I 0.04 ng/mL (< 0.04) H* 02/06/18 13:43 Serum Total Protein 6.2 g/dL (6.4-8.9) L 02/06/18 07:52 Albumin 2.1 g/dL (3.5-5.7) L 02/06/18 07:52 Globulin 4.1 g/dL (2.4-3.5) H 02/06/18 07:52 Albumin/Globulin Ratio 0.5 (1.1-2.2) L 02/06/18 07:52 Ur Specimen Adequacy See below A 02/06/18 07:57 Urine Protein 100 mg/dL (Neg-Trace) H 02/06/18 07:57 Urine Blood Moderate (Negative) H 02/06/18 07:57 Ur Leukocyte Esterase Small (Negative) H 02/06/18 07:57 Urine Microscopic RBC 5-15 per hpf (0-3) H 02/06/18 07:57 Urine Microscopic WBC 3-5 per hpf (0-3) H 02/06/18 07:57 Ur Squamous Epith Cells Moderate per lpf (None-Few) H 02/06/18 07:57 Ur Culture Indicated? YES (NO) A 02/06/18 07:57 All other labs normal. Consult Discharge Plan - Plan Referrals: Peter Vicente DO [Primary Care Provider] -
[2018-02-06] MEDS ORDERED: Vancomycin 1 EACH in 0.9 % Sodium Chloride 250 ML IVPB SCH (16:00)
[2018-02-06] MEDS ORDERED: Vancomycin 1 EACH in 0.9 % Sodium Chloride 250 ML IVPB PRN (16:00)
[2018-02-06] MEDS ORDERED: Ipratropium/Albuterol Neb 3 ML IH PRN (17:00)
[2018-02-06] MEDS: cloNIDine HCl 0.1 MG TABLET PO SCH ×2 (17:38→21:46)
[2018-02-06] MEDS ORDERED: Gentamicin 160 MG in 0.9 % Sodium Chloride 100 ML IVPB ONE (18:00)
[2018-02-06] MEDS: Piperacillin/Tazobactam 3.375 GM in 0.9 % Sodium Chloride Mini Bag 100 ML IVPB SCH (18:33)
[2018-02-06] MEDS: Budesonide/Formoterol 160/4.5 MDI IH SCH (19:59)
[2018-02-06] MEDS: hydrALAZINE 25 MG TABLET PO SCH (21:47)
[2018-02-06] MEDS: Apixaban 5 MG TABLET PO SCH (21:47)
[2018-02-06] MEDS: amLODIPine 5 MG TABLET PO SCH (21:47)
--- NOTE | 2018-02-06 22:03 | Electrocardiograph Report ---
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
[2018-02-07 01:16] LABS: Hepatitis B Surface Antibody 1.95 mIU/mL
[2018-02-07] MEDS ORDERED: Dextrose Gel 15 GM/37.5 ML TUBE PO ONE (01:42)
[2018-02-07] MEDS ORDERED: *HR* Dextrose 50 % in Water (Syg) 50 ML SYRINGE ONE (01:46)
[2018-02-07] MEDS ORDERED: Dextrose Gel 15 GM/37.5 ML TUBE PO PRN ×2 (02:28)
[2018-02-07] MEDS ORDERED: *HR* Dextrose 50 % in Water (Syg) 50 ML SYRINGE IVP PRN (02:28)
[2018-02-07] MEDS ORDERED: D5% in Water 1,000 ML IVC PRN (02:28)
[2018-02-07] MEDS ORDERED: D5% in 0.9% NACL 1,000 ML IVC SCH (02:30)
[2018-02-07] MEDS ORDERED: D5% in 0.9% NACL 1,000 ML IVC ONE (02:39)
[2018-02-07] MEDS: Piperacillin/Tazobactam 3.375 GM in 0.9 % Sodium Chloride Mini Bag 100 ML IVPB SCH ×2 (06:37→17:46)
[2018-02-07] MEDS: Budesonide/Formoterol 160/4.5 MDI IH SCH ×2 (07:42→20:06)
[2018-02-07] MEDS ORDERED: 0.9 % Sodium Chloride 2,000 ML ONE (07:46)
[2018-02-07 07:54] LABS: Basophils % 0.2 %; Eosinophils # 0.2 K/mcL (0.0-0.6); Hematocrit 26.4 % (35.3-44.9); Hemoglobin 8.3 g/dL (11.5-15.4); Immature Granulocytes % 1.3 % (0-4); Lymphocytes # 1.4 K/mcL (0.6-4.6); Lymphocytes % 8.2 %; Mean Corpuscular HGB Conc 31.4 g/dL (31.6-35.5); Mean Corpuscular Hemoglobin 32.2 pg (28.0-33.3); Mean Corpuscular Volume 102.3 fL (83.0-100.0); Mean Platelet Volume 11.1 fL (9.4-12.4); Monocytes # 1.5 K/mcL (0.0-1.3); Monocytes % 8.5 %; Neutrophils # 14.2 K/mcL (1.6-8.9); Nucleated Red Blood Cells 0.1 /100 WBC (0); Platelet Count 160 K/mcL (140-400); Red Blood Count 2.58 M/mcL (3.82-4.97); Red Cell Distribution Width 20.5 % (11.5-14.5); Segmented Neutrophils % 80.8 %
[2018-02-07 08:06] LABS: INR 2.2; Prothrombin Time 25.1 Seconds (9.4-12.1)
[2018-02-07 08:53] LABS: Calcium 6.7 mg/dL (8.6-10.3)
[2018-02-07] MEDS ORDERED: Gentamicin 1 EACH in 0.9 % Sodium Chloride 100 ML IVPB PRN (09:00)
[2018-02-07] MEDS ORDERED: Insulin Human Regular 10 UNIT in 0.9 % Sodium Chloride 10 ML IV ONE (09:05)
[2018-02-07] MEDS ORDERED: *HR* Dextrose 50 % in Water (Syg) 50 ML SYRINGE IVP ONE (09:05)
[2018-02-07] MEDS ORDERED: Albuterol 2.5 MG/3 ML NEBULIZER IH ONE (09:06)
[2018-02-07] MEDS: Insulin LISPRO 300 UNITS/3 ML VIAL SQ SCH ×3 (09:13→17:57)
[2018-02-07] MEDS ORDERED: 0.9 % Sodium Chloride 250 ML IVC PRN (10:55)
[2018-02-07] MEDS: Metoprolol XL (24 HR) Succ 25 MG TAB.ER.24H PO SCH (10:58)
[2018-02-07] MEDS: hydrALAZINE 25 MG TABLET PO SCH ×2 (10:59→22:27)
[2018-02-07] MEDS: Folic Acid 1 MG TABLET PO SCH (10:59)
[2018-02-07] MEDS: cloNIDine HCl 0.1 MG TABLET PO SCH ×3 (10:59→22:27)
[2018-02-07] MEDS: amLODIPine 5 MG TABLET PO SCH ×2 (11:00→22:27)
[2018-02-07] MEDS: Apixaban 5 MG TABLET PO SCH ×2 (11:00→22:25)
[2018-02-07] MEDS: predniSONE 10 MG TABLET PO SCH (11:00)
[2018-02-07] MEDS: *HR* Amiodarone 200 MG TABLET PO SCH (11:00)
--- NOTE | 2018-02-07 11:14 | Nephrology Progress Note ---
<Gisel Araujo - Last Filed: 02/07/18 12:04> Date of Encounter: 02/07/18 Time of Encounter: 11:12 - Assessment and Plan (1) ESRD (end stage renal disease) on dialysis Current Visit: Yes Status: Acute Current regimen is TTS at [facility]. Has missed several treatments in the last 2 weeks. Fistula malfunctioned last week was supposedly repaired with intervention by Dr. Alvares at [facility]. Awaiting report from dialysis unit, to confirm what was done with Dr. Alvares. Fistula is not functioning at this time. IR unable to do fistulogram due to INR of 2.2. IR did place a temporary line today to be able to run HD today, as K is 7. Will order additional UF and HD as needed. Avoid nephrotoxins and renal dose all medications. Recommend stopping IV fluid. (3) Hyperkalemia Current Visit: Yes Status: Acute Potassium is 7 today. HD in progress. (4) Weakness Current Visit: Yes Status: Acute Per primary. (5) Calciphylaxis Current Visit: Yes Status: Acute Surgery consult. Dr. Bennett evaluated wounds yesterday. Wound care orders given in consult note. Will continue Sodium Thiosulfate with hemodialysis. Recommend placing a social service consult. She agrees to go to an [facility] short-term for wound care and help with transportation to hemodialysis. Subjective Principal diagnosis: generalized weakness Interval history: Pt seen and examined. NAD. Just had right temp line placed at bedside. Objective - Vital Signs Vital signs: Vital Signs Temp Pulse Resp BP Pulse Ox 02/07/18 10:41 20 98 02/07/18 07:42 16 96 02/07/18 07:02 98.0 F 72 19 115/71 97 02/07/18 04:54 97.9 F 66 16 100/66 97 02/07/18 02:42 131/85 02/07/18 00:25 98.1 F 65 17 95/63 98 02/06/18 20:54 98.1 F 74 17 118/79 96 02/06/18 19:59 15 96 02/06/18 17:37 98.7 F 77 17 143/89 95 02/06/18 13:19 97.5 F L 79 17 150/90 96 Intake and Output 02/06/18 02/07/18 02/07/18 23:59 07:59 15:59 Intake Total 100 / 100 0 / 0 Balance 100 / 100 0 / 0 Intake: IV Fluids 100 / 100 Zosyn 3.375 GM In 0.9 % Sodium 100 / 100 Chloride (Mini-Bag +) 100 ML @ 25 mls/hr IVPB Q12HR [facility] Rx#: [id number] Oral 0 / 0 Other: Weight 84.2 kg Blood Glucose* 83 80 Patient Weight 02/07/18 23:59 Weight 84.2 kg - General Appearance General appearance: Present: well-developed, well-nourished EENT: Present: ATNC, hearing intact, vision intact Neck: Present: supple Respiratory: Present: clear Cardiology: Present: no edema, normal S1, normal S2 Dialysis Vascular Access: Arteriovenous Fistula Gastrointestinal: Present: normoactive bowel sounds, no tenderness, no guarding Integumentary: Present: no rash, warm and dry Additional Comments: Please see Dr. Carolina notes re: wounds. Drsg C/D/I. Neurologic: Present: alert and oriented x3 Psychiatric: Present: mood/affect appropriate, cooperative - Lab 02/07/18 06:28 02/07/18 08:03 Most recent lab results ABG pH 7.40 pH Units (7.32-7.45) 02/06/18 14:00 ABG pCO2 30 mmHg (35-45) L 02/06/18 14:00 ABG pO2 85 mmHg (85-104) 02/06/18 14:00 ABG HCO3 18 mEq/L (21-27) L 02/06/18 14:00 ABG O2 Saturation 97 % (95-98) 02/06/18 14:00 Calcium 6.7 mg/dL (8.6-10.3) L 02/07/18 08:03 Phosphorus 5.1 mg/dL (2.7-4.5) H 02/06/18 07:52 Magnesium 2.0 mg/dL (1.6-2.6) 02/06/18 07:52 - VTE Reasons for not Prescribing Prophylaxis: Not indicated-Anticoagulated or INR therapeutic Consult Discharge Plan - Plan Referrals: Peter Vicente DO [Primary Care Provider] - <Saran Wei - Last Filed: 02/11/18 12:40> Date of Encounter: 02/07/18 - Assessment and Plan (1) ESRD (end stage renal disease) on dialysis Current Visit: Yes Status: Acute (2) Anemia Current Visit: No Status: Chronic Qualifiers: Anemia type: other cause Other causes of anemia: chronic disease, other Qualified Code(s): D63.8 - Anemia in other chronic diseases classified elsewhere (3) Calciphylaxis Current Visit: No Status: Chronic (4) AV fistula thrombosis Current Visit: Yes Status: Acute Qualifiers: Encounter type: subsequent encounter Qualified Code(s): T82.868D - Thrombosis due to vascular prosthetic devices, implants and grafts, subsequent encounter Objective - Vital Signs Vital signs: Vital Signs Temp Pulse Resp BP Pulse Ox 02/11/18 11:33 99.0 F 65 16 99/65 90 02/11/18 08:08 98.3 F 66 20 91/60 92 02/11/18 07:51 18 93 02/11/18 04:17 97.8 F 67 16 116/73 92 02/11/18 00:43 99.3 F 70 18 93/61 90 02/10/18 19:49 16 94 02/10/18 19:36 99.6 F 75 18 103/68 90 02/10/18 14:57 99.4 F 64 16 102/70 93 02/10/18 13:47 98.5 F 82 20 113/63 96 02/10/18 12:38 97.6 F 20 120/72 Intake and Output 02/10/18 02/11/18 02/11/18 23:59 07:59 15:59 Intake Total 100 / 100 120 / 120 Balance 100 / 100 120 / 120 Intake: IV Fluids 100 / 100 Zosyn 3.375 GM In 0.9 % Sodium 100 / 100 Chloride (Mini-Bag +) 100 ML @ 25 mls/hr IVPB Q12HR [facility] Rx#: [id number] Oral 120 / 120 Other: Weight 80 kg Blood Glucose* 144 105 Patient Weight 02/11/18 23:59 Weight 80 kg - Lab 02/11/18 04:45 02/11/18 04:45 Most recent lab results ABG pH 7.40 pH Units (7.32-7.45) 02/06/18 14:00 ABG pCO2 30 mmHg (35-45) L 02/06/18 14:00 ABG pO2 85 mmHg (85-104) 02/06/18 14:00 ABG HCO3 18 mEq/L (21-27) L 02/06/18 14:00 ABG O2 Saturation 97 % (95-98) 02/06/18 14:00 Calcium 7.0 mg/dL (8.6-10.3) L 02/11/18 04:45 Phosphorus 5.1 mg/dL (2.7-4.5) H 02/06/18 07:52 Magnesium 2.0 mg/dL (1.6-2.6) 02/06/18 07:52 - Attending Attestation I examined this patient and my medical decision-making was reviewed with the Resident Physician/BEHAVIORAL HEALTH PROFESSIONAL. I agree with the documented findings, disposition and treatment plan as described except to the extent set forth below. Pt seen an examined, unable to dialyze yesterday due to cannulation issues. Temp IJ line placed this am by IR. Potassium elevated still despite kayexalate yesterday. Will dialyze today and again tomorrow to resume her schedule. Discussed with pharm dosing of her gentamicin and sodium thiosulfate after each HD session. On exam: wounds cleaned and dressed. Pt now agrees to be discahrged to ECF but better outpatient experience.
[2018-02-07] MEDS ORDERED: Sodium Thiosulfate 25 GM in EMPTY BAG 1 EACH IVPB ONE ×2 (11:30→18:00)
--- NOTE | 2018-02-07 11:30 | Event Note ---
Date of Encounter: 02/07/18 Time of Encounter: 11:25 Wound measurements Mid abdomen: 4x1.5 cm L lower abdomen: 15x 10 cm Mid lower abd: 6x7 cm R lower abd: 17x8 cm R thigh 4x3 cm and 2x2 cm L thigh medial 2x1 cm L thigh 6x5cm unable to assess wounds on bottom will assess later today
[2018-02-07] MEDS ORDERED: *HR* OxyCODONE/APAP 10/325 TABLET PO PRN (11:47)
--- NOTE | 2018-02-07 12:03 | Infectious Disease Progress No ---
Date of Encounter: 02/07/18 Time of Encounter: 12:00 - Assessment and Plan (1) Leukocytosis Current Visit: No Status: Acute The patient's WBC remains elevated, but is trending down from previous admissions. No other sepsis criteria. Continue to trend. Blood cultures drawn 02/06/18 are pending x 2 sets. Qualifiers: Leukocytosis type: bandemia Qualified Code(s): D72.825 - Bandemia (2) Wound infection Current Visit: Yes Status: Acute Location: Abdominal wounds. Likely multifactorial: poorly controlled DM, obesity, non-compliance with wound care and antibiotics. Causative organism unclear, but likely polymicrobial. Previous wound culture positive for Pseudomonas stutzeri, E. coli ESBL, and Proteus. Failed to get IV Gentamicin since she wasn't going to HD. Clinically, there is marked regression in the patient's wounds since I saw her last. The wounds are necrotic and foul-smelling. She is status post bedside debridement per the surgery team this morning. CT of the abdomen and pelvis does not show any underling abscess. Obtain wound cultures. --> pending collection. Wound care to evaluate. The patient would likely benefit from transfer to a facility with plastic surgery service as she will likely require aggressive debridements and skin flaps to aid in healing these large wounds. Discontinue Gentamicin. Continue Vancomycin IV. Pharmacy to dose. Goal trough ~15. Continue Zosyn 3.375 grams IV Q12H. Duration of treatment depends on the clinical picture. Dose-adjust antibiotics for HD. Will ask pharmacy to help with dosing her antibiotics. (3) Hyperkalemia Current Visit: Yes Status: Acute K up to 7 today, patient was unable to get HD yesterday due to non-functioning AV fistula. Management per the nephrology team. (4) Pleural effusion Current Visit: Yes Status: Acute CT chest showed bandlike reticular densities most pronounced in the left lung base suggestive of atelectasis with generalizes interstitial prominence with background of hazy ground-glass attenuation suggestive of pulmonary edema. There was a trace left pleural effusion with a loculated pleural fluid within the left major fissure measuring about 2.5x2.5x3.5cm. Recommend pulmonology to evaluate for possible loculated pleural fluid. (5) Weakness Current Visit: Yes Status: Acute Likely secondary to extensive wound infections. Blood cultures are pending x 2 sets. Continue supportive care. (6) Calciphylaxis Current Visit: No Status: Chronic Previous skin biopsies negative, but clinical picture consistent with calciphylaxis and the patient reported improvement in her symptoms when she was receiving treatment. Wound care as above. Consider transfer for evaluation by plastic surgery. Continue antibiotics as above. Sodium thiosulfate per nephrology. (7) ESRD (end stage renal disease) Current Visit: No Status: Chronic Nephrology consulted and following. (8) Anemia in chronic kidney disease (CKD) Current Visit: No Status: Chronic Qualifiers: Chronic kidney disease stage: on chronic dialysis Qualified Code(s): N18.6 - End stage renal disease; D63.1 - Anemia in chronic kidney disease; Z99.2 - Dependence on renal dialysis (9) Afib Current Visit: Yes Status: Chronic Qualifiers: Atrial fibrillation type: paroxysmal Qualified Code(s): I48.0 - Paroxysmal atrial fibrillation - Subjective Interval history: Patient seen and examined. No acute events noted overnight. Patient states that overall she doesn't feel much better today. Reports her blood sugar dropped this morning and she has had some muscle jerking since then. Denies fevers, chills, or rigors. Denies chest pain, shortness of breath, or cough. Reports some nausea, but no vomiting as she hasn't had anything to eat since being admitted. Reports pain at the site of the ulcers. Denies oral thrush. Infect Dis PN-Objective Data - Labs CBC & Chem 7: 02/07/18 06:28 02/07/18 15:11 Labs: Laboratory Results - last 24 hr 02/06/18 02/06/18 02/06/18 13:43 14:00 22:23 WBC RBC Hgb Hct MCV MCH MCHC RDW Plt Count MPV Immature Gran % Seg Neutrophils % Lymphocytes % Monocytes % Eosinophils % Basophils % Neutrophils # Lymphocytes # Monocytes # Eosinophils # Basophils # Nucleated RBCs/100 WBC PT INR ABG pH 7.40 ABG pCO2 30 L ABG pO2 85 ABG HCO3 18 L ABG Total CO2 19 L ABG O2 Saturation 97 ABG Base Excess -6 L O2 Delivery Device Room Air Sodium Potassium Chloride Carbon Dioxide BUN Creatinine Est GFR ( Amer) Est GFR (Non-Af Amer) BUN/Creatinine Ratio Glucose POC Glucose 83 Calculated Osmolality Calcium Troponin I 0.04 H* Random Gentamicin Random Vancomycin Specimen Rejected 02/07/18 02/07/18 02/07/18 06:28 06:28 06:28 WBC 17.5 H RBC 2.58 L Hgb 8.3 L Hct 26.4 L MCV 102.3 H MCH 32.2 MCHC 31.4 L RDW 20.5 H Plt Count 160 MPV 11.1 Immature Gran % 1.3 Seg Neutrophils % 80.8 Lymphocytes % 8.2 Monocytes % 8.5 Eosinophils % 1.0 Basophils % 0.2 Neutrophils # 14.2 H Lymphocytes # 1.4 Monocytes # 1.5 H Eosinophils # 0.2 Basophils # 0.0 Nucleated RBCs/100 WBC 0.1 H PT INR ABG pH ABG pCO2 ABG pO2 ABG HCO3 ABG Total CO2 ABG O2 Saturation ABG Base Excess O2 Delivery Device Sodium Potassium Chloride Carbon Dioxide BUN Creatinine Est GFR ( Amer) Est GFR (Non-Af Amer) BUN/Creatinine Ratio Glucose POC Glucose Calculated Osmolality Calcium Troponin I Random Gentamicin 6.8 Random Vancomycin 32 Specimen Rejected 02/07/18 02/07/18 02/07/18 06:28 07:31 08:03 WBC RBC Hgb Hct MCV MCH MCHC RDW Plt Count MPV Immature Gran % Seg Neutrophils % Lymphocytes % Monocytes % Eosinophils % Basophils % Neutrophils # Lymphocytes # Monocytes # Eosinophils # Basophils # Nucleated RBCs/100 WBC PT 25.1 H INR 2.2 ABG pH ABG pCO2 ABG pO2 ABG HCO3 ABG Total CO2 ABG O2 Saturation ABG Base Excess O2 Delivery Device Sodium 134 L Potassium 7.0 H* Chloride 96 L Carbon Dioxide 16 L BUN 64 H Creatinine 12.48 H Est GFR ( Amer) 4 L Est GFR (Non-Af Amer) 3 L BUN/Creatinine Ratio 5 L Glucose 66 L POC Glucose Calculated Osmolality 295 Calcium 6.7 L Troponin I Random Gentamicin Random Vancomycin Specimen Rejected Hemolyzed Cultures: Cultures 02/06/18 07:57 Urine Culture - Preliminary Urine,Catheterized No growth. 02/06/18 07:52 Blood Culture - Preliminary Peripheral Venipuncture Culture is incubating and being continuously monitored for growth. Final report to follow. 02/06/18 08:02 Blood Culture - Preliminary Peripheral Venipuncture Culture is incubating and being continuously monitored for growth. Final report to follow. - Impressions Impressions Guidance Needle Placement Ultrasound 02/07/18 00:00 IMPRESSION: Successful temporary hemodialysis catheter placement using ultrasound guidance as above. A 20 cm triple-lumen temporary hemodialysis catheter was placed. D/ / Manav Zarco MD / Manav Zarco MD Interpreting Provider: Manav Zarco MD Insertion Non-Tunneled Catheter 02/07/18 00:00 IMPRESSION: Successful temporary hemodialysis catheter placement using ultrasound guidance as above. A 20 cm triple-lumen temporary hemodialysis catheter was placed. D/ / Manav Zarco MD / Manav Zarco MD Interpreting Provider: Manav Zarco MD Chest X-Ray 02/07/18 10:22 IMPRESSION: 1. Right jugular temporary dialysis catheter placement with the tip in the mid to low right atrium and no immediate complications. 2. Cardiomegaly with mild vascular congestion. D/ / Phill Batista MD / Phill Batista MD Interpreting Provider: Phill Batista MD Exam - Constitutional Vitals: Temp Pulse Resp BP Pulse Ox 98.0 F 72 20 115/71 98 02/07/18 07:02 02/07/18 07:02 02/07/18 10:41 02/07/18 07:02 02/07/18 10:41 General appearance: cooperative, morbidly obese, no acute distress - Head Head exam: Present: atraumatic, normal inspection, normocephalic - Eye Eye exam: Present: EOMI, normal appearance, PERRL Pupils: Present: normal accommodation - ENT ENT exam: Present: mucous membranes moist - Neck Neck exam: Present: normal inspection Additional comments: Tunneled dialysis catheter noted to the right neck with transparent dressing C/D /I. - Respiratory Respiratory exam: Present: CTAB. Absent: rales, respiratory distress, rhonchi, wheezes - Cardiovascular Cardiovascular exam: Present: irregular rhythm. Absent: tachycardia - GI/Abdominal GI/Abdominal exam: Present: distended (obese), normal bowel sounds, soft, tenderness (at wound sites) Additional comments: Abdominal wound dressings C/D/I. - Extremities Exam Extremities exam: Absent: joint swelling, pedal edema, tenderness - Neurological Exam Neurological exam: Present: alert, oriented X3, no focal deficits - Psychiatric Psychiatric exam: Present: normal affect, normal mood - Skin Skin exam: Present: dry, intact, pallor, warm Additional comments: Multiple necrotic and foul-smelling wounds noted to the abdomen, right breast, and bilateral upper thighs. - VTE Reasons for not Prescribing Prophylaxis: Not indicated-Anticoagulated or INR therapeutic Consult Discharge Plan - Plan Referrals: Peter Vicente DO [Primary Care Provider] - - Attending Attestation I examined this patient and my medical decision-making was reviewed with the Resident Physician. I agree with the documented findings, disposition and treatment plan as described except to the extent set forth below.
[2018-02-07] MEDS: *HR* HYDROcodone/Acet 10/325 mg TABLET PO PRN ×2 (12:43→23:48)
--- NOTE | 2018-02-07 14:46 | Internal Med Progress Note ---
Date of Encounter: 02/07/18 Time of Encounter: 09:10 - Assessment and plan (1) Wound infection Current Visit: Yes Status: Acute Assessment and plan: Multiple skin lesions all over her abdomen and upper thighs. Evaluated by surgery. On IV antibiotics. Infectious disease following. Bedside debridement done by Surgery yesterday. (2) ESRD on hemodialysis Current Visit: Yes Status: Chronic Assessment and plan: Temporary dialysis catheter placed today. She did have severe hyperkalemia and is currently receiving hemodialysis. (3) Afib Current Visit: Yes Status: Chronic Assessment and plan: Rate controlled and in regular rhythm at this time. On anticoagulation with eliquis Qualifiers: Atrial fibrillation type: paroxysmal Qualified Code(s): I48.0 - Paroxysmal atrial fibrillation (4) Calciphylaxis Current Visit: Yes Status: Chronic Assessment and plan: Patient will receive sodium thiosulfate with dialysis (5) DVT prophylaxis Current Visit: Yes Status: Acute Assessment and plan: patient on eliquis which was held today for planned temporary dialysis catheter placement. (6) Noncompliance with renal dialysis Current Visit: Yes Status: Acute Assessment and plan: clerical and administrative workers consulted. Recommend placement to skilled rehabilitation due to transportation issues for the patient and multiple skin wounds. Patient in agreement with this plan. - Time Spent With Patient Total time spent is greater than 50% in coordination of care (as documented) at patient's floor/unit and/or counseling patient: - Subjective Interval history: Patient was excessively somnolent this morning. Did awake to sternal rub. Complains of excessive sleepiness. She then and went and received dialysis. No chest pain or palpitations. She continues to have pain around her skin lesions and her back. - Constitutional Vitals: Temp Pulse Resp BP Pulse Ox 98.0 F 72 20 115/71 98 02/07/18 07:02 02/07/18 07:02 02/07/18 10:41 02/07/18 07:02 02/07/18 10:41 General appearance: Present: cooperative, A&O X 3 - Eye Eye exam: Present: EOMI, PERRL, conjuntiva pink, sclera anicteric - Respiratory Respiratory exam: Present: CTAB. Absent: accessory muscle use, rales, rhonchi, wheezes - Cardiovascular Cardiovascular exam: Present: RRR, +S1, +S2. Absent: diastolic murmur, gallop, rubs, systolic murmur - GI/Abdominal GI/Abdominal exam: Present: normal bowel sounds, tenderness, no peritoneal signs. Absent: distended - Extremities Exam Extremities exam: Present: warm, radial pulses palpable and symmetrical. Absent : calf tenderness, cyanotic, pedal edema - Neurological Exam Neurological exam: Present: alert, oriented X3, no focal deficits. Absent: facial droop, speech deficit - Skin Additional comments: Multiple necrotic skin lesions across her abdominal wall and upper thighs Internal Medicine: Result - Labs CBC & Chem 7: 02/07/18 06:28 02/07/18 12:59 Labs: Short CBC 02/07/18 Range/Units 06:28 WBC 17.5 H (4.3-11.1) K/mcL Hgb 8.3 L (11.5-15.4) g/dL Hct 26.4 L (35.3-44.9) % Plt Count 160 (140-400) K/mcL Neutrophils # 14.2 H (1.6-8.9) K/mcL BMP 02/07/18 02/07/18 08:03 12:59 Sodium 134 L Potassium 7.0 H* 3.5 D Chloride 96 L Carbon Dioxide 16 L BUN 64 H Creatinine 12.48 H Glucose 66 L Calcium 6.7 L - ABG Interpretation ABG results: ABG ABG pH 7.40 pH Units (7.32-7.45) 02/06/18 14:00 ABG pCO2 30 mmHg (35-45) L 02/06/18 14:00 ABG pO2 85 mmHg (85-104) 02/06/18 14:00 ABG O2 Saturation 97 % (95-98) 02/06/18 14:00 PT/INR, D-dimer PT 25.1 Seconds (9.4-12.1) H 02/07/18 06:28 - Impressions Impressions Guidance Needle Placement Ultrasound 02/07/18 00:00 IMPRESSION: Successful temporary hemodialysis catheter placement using ultrasound guidance as above. A 20 cm triple-lumen temporary hemodialysis catheter was placed. D/ / Manav Zarco MD / Manav Zarco MD Interpreting Provider: Manav Zarco MD Insertion Non-Tunneled Catheter 02/07/18 00:00 IMPRESSION: Successful temporary hemodialysis catheter placement using ultrasound guidance as above. A 20 cm triple-lumen temporary hemodialysis catheter was placed. D/ / Manav Zarco MD / Manav Zarco MD Interpreting Provider: Manav Zarco MD Chest X-Ray 02/07/18 10:22 IMPRESSION: 1. Right jugular temporary dialysis catheter placement with the tip in the mid to low right atrium and no immediate complications. 2. Cardiomegaly with mild vascular congestion. D/ / Phill Batista MD / Phill Batista MD Interpreting Provider: Phill Batista MD - VTE Reasons for not Prescribing Prophylaxis: Not indicated-Anticoagulated or INR therapeutic Consult Discharge Plan - Plan Referrals: Peter Vicente DO [Primary Care Provider] -
[2018-02-07] MEDS ORDERED: *HR* FentaNYL (PF) 100 MCG/2 ML VIAL IVP ONE (15:38)
[2018-02-08] MEDS: Insulin LISPRO 300 UNITS/3 ML VIAL SQ SCH ×4 (01:18→17:09)
[2018-02-08] MEDS: Acetaminophen 325 MG TABLET PO PRN ×2 (02:29→23:46)
[2018-02-08] MEDS: Piperacillin/Tazobactam 3.375 GM in 0.9 % Sodium Chloride Mini Bag 100 ML IVPB SCH ×2 (07:03→20:43)
[2018-02-08 07:33] LABS: Gentamicin,Random 2.2 mcg/mL
[2018-02-08 07:48] LABS: Calcium 6.7 mg/dL (8.6-10.3)
[2018-02-08 08:29] LABS: Basophils % 0.1 %; Eosinophils % 0.2 %; Hematocrit 19.3 % (35.3-44.9); Hemoglobin 6.4 g/dL (11.5-15.4); Immature Granulocytes % 1.4 % (0-4); Lymphocytes # 1.7 K/mcL (0.6-4.6); Lymphocytes % 8.7 %; Mean Corpuscular HGB Conc 33.2 g/dL (31.6-35.5); Mean Corpuscular Hemoglobin 32.7 pg (28.0-33.3); Mean Corpuscular Volume 98.5 fL (83.0-100.0); Mean Platelet Volume 10.6 fL (9.4-12.4); Monocytes # 2.4 K/mcL (0.0-1.3); Monocytes % 12.1 %; Neutrophils # 15.3 K/mcL (1.6-8.9); Platelet Count 120 K/mcL (140-400); Red Blood Count 1.96 M/mcL (3.82-4.97); Red Cell Distribution Width 20.9 % (11.5-14.5); Segmented Neutrophils % 77.5 %
[2018-02-08] MEDS ORDERED: 0.9 % Sodium Chloride 250 ML IVC PRN (08:32)
[2018-02-08] MEDS ORDERED: 0.9 % Sodium Chloride 2,000 ML ONE (08:39)
[2018-02-08] MEDS ORDERED: 0.9 % Sodium Chloride 1,000 ML PRIME SCH (08:45)
[2018-02-08] MEDS: *HR* HYDROcodone/Acet 10/325 mg TABLET PO PRN (08:55)
[2018-02-08] MEDS: Ondansetron 4 MG/2 ML VIAL IVP PRN ×3 (08:55→20:24)
--- NOTE | 2018-02-08 09:28 | Nephrology Progress Note ---
<ArtGisel guardado Jarrett - Last Filed: 02/08/18 11:54> Date of Encounter: 02/08/18 Time of Encounter: 09:26 - Assessment and Plan (1) ESRD (end stage renal disease) on dialysis Current Visit: Yes Status: Acute Current regimen is TTS at [facility]. HD in progress now. Has missed several treatments in the last 2 weeks. Fistula malfunctioned last week was supposedly repaired with intervention by Dr. Alvares at [facility]. Awaiting report from dialysis unit, to confirm what was done with Dr. Alvares. Fistula is not functioning at this time. Will order additional UF and HD as needed. Avoid nephrotoxins and renal dose all medications. INR recheck today to see if Fistulagram can be completed by IR. Per IR Eliquis will be held for 24 hours. (2) Anemia Current Visit: No Status: Chronic Goal Hgb isd 10-11. Hgb is 6.4 today. Type and Screen ordered. Iron profile ordered. 2 Units PRBCS ordered to be given in HD. Qualifiers: Anemia type: other cause Other causes of anemia: chronic disease, other Qualified Code(s): D63.8 - Anemia in other chronic diseases classified elsewhere (3) Hyperkalemia Current Visit: Yes Status: Acute Potassium is 5.0 today down from 7.0. (4) Weakness Current Visit: Yes Status: Acute Per primary. 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 Dr. Bennett following. Wound care orders given in consult note. Will continue Sodium Thiosulfate with hemodialysis. Social service consult placed. She agrees to go to an [facility] short-term for wound care and help with transportation to hemodialysis. IV pain medication ordered by Dr. Fenton to help with pain control. Fentanyl patched ordered as well. Subjective Principal diagnosis: generalized weakness Interval history: Pt seen and examined during HD, tolerating well. Objective - Vital Signs Vital signs: Vital Signs Temp Pulse Resp BP Pulse Ox 02/08/18 07:15 100.6 F H 78 16 91/59 92 02/08/18 03:35 99.8 F H 74 16 105/59 92 02/08/18 02:23 91/59 02/07/18 23:22 98.3 F 68 16 119/78 97 02/07/18 21:54 92/60 02/07/18 20:06 16 93 02/07/18 19:28 98.5 F 78 16 81/55 93 02/07/18 16:39 98.1 F 81 18 82/50 96 02/07/18 15:20 96.8 F L 21 100/63 02/07/18 15:10 98/75 02/07/18 14:55 99/52 02/07/18 14:40 95/58 02/07/18 14:25 94/67 02/07/18 14:10 91/67 02/07/18 13:55 92/62 02/07/18 13:40 91/63 02/07/18 13:25 117/70 02/07/18 13:10 115/63 02/07/18 12:55 108/61 02/07/18 12:40 91/56 02/07/18 12:25 91/63 02/07/18 12:10 96/60 02/07/18 11:55 95/66 02/07/18 11:40 98.4 F 19 110/61 02/07/18 10:41 20 98 Intake and Output 02/07/18 02/08/18 02/08/18 23:59 07:59 15:59 Intake Total 100 / 100 Balance 100 / 100 Intake: IV Fluids 100 / 100 Zosyn 3.375 GM In 0.9 % Sodium 100 / 100 Chloride (Mini-Bag +) 100 ML @ 25 mls/hr IVPB Q12HR [facility] Rx#: [id number] Other: Meal Dinner Percent of Meal Consumed 60% Weight 84.1 kg Blood Glucose* 90 83 - General Appearance General appearance: Present: well-developed, well-nourished EENT: Present: ATNC, hearing intact, vision intact Neck: Present: supple Respiratory: Present: clear Cardiology: Present: normal S1, normal S2 Dialysis Vascular Access: Venous Catheter (Tunneled Line DRSG C/D/I.) Gastrointestinal: Present: normoactive bowel sounds, no tenderness, no guarding Integumentary: Present: no rash, warm and dry Neurologic: Present: alert and oriented x3 Psychiatric: Present: mood/affect appropriate, cooperative - Lab 02/08/18 08:18 02/08/18 04:00 Most recent lab results ABG pH 7.40 pH Units (7.32-7.45) 02/06/18 14:00 ABG pCO2 30 mmHg (35-45) L 02/06/18 14:00 ABG pO2 85 mmHg (85-104) 02/06/18 14:00 ABG HCO3 18 mEq/L (21-27) L 02/06/18 14:00 ABG O2 Saturation 97 % (95-98) 02/06/18 14:00 Calcium 6.7 mg/dL (8.6-10.3) L 02/08/18 04:00 Phosphorus 5.1 mg/dL (2.7-4.5) H 02/06/18 07:52 Magnesium 2.0 mg/dL (1.6-2.6) 02/06/18 07:52 - VTE Reasons for not Prescribing Prophylaxis: Not indicated-Anticoagulated or INR therapeutic Consult Discharge Plan - Plan Referrals: Peter Vicente DO [Primary Care Provider] - <Saran Wei - Last Filed: 02/11/18 12:44> Date of Encounter: 02/08/18 - Assessment and Plan (1) ESRD (end stage renal disease) on dialysis Current Visit: Yes Status: Acute (2) Anemia Current Visit: No Status: Chronic Qualifiers: Anemia type: other cause Other causes of anemia: chronic disease, other Qualified Code(s): D63.8 - Anemia in other chronic diseases classified elsewhere (3) Calciphylaxis Current Visit: No Status: Chronic (4) AV fistula thrombosis Current Visit: Yes Status: Acute Qualifiers: Encounter type: subsequent encounter Qualified Code(s): T82.868D - Thrombosis due to vascular prosthetic devices, implants and grafts, subsequent encounter Objective - Vital Signs Vital signs: Vital Signs Temp Pulse Resp BP Pulse Ox 02/11/18 11:33 99.0 F 65 16 99/65 90 02/11/18 08:08 98.3 F 66 20 91/60 92 02/11/18 07:51 18 93 02/11/18 04:17 97.8 F 67 16 116/73 92 02/11/18 00:43 99.3 F 70 18 93/61 90 02/10/18 19:49 16 94 02/10/18 19:36 99.6 F 75 18 103/68 90 02/10/18 14:57 99.4 F 64 16 102/70 93 02/10/18 13:47 98.5 F 82 20 113/63 96 Intake and Output 02/10/18 02/11/18 02/11/18 23:59 07:59 15:59 Intake Total 100 / 100 120 / 120 Balance 100 / 100 120 / 120 Intake: IV Fluids 100 / 100 Zosyn 3.375 GM In 0.9 % Sodium 100 / 100 Chloride (Mini-Bag +) 100 ML @ 25 mls/hr IVPB Q12HR [facility] Rx#: [id number] Oral 120 / 120 Other: Weight 80 kg Blood Glucose* 144 105 Patient Weight 02/11/18 23:59 Weight 80 kg - Lab 02/11/18 04:45 02/11/18 04:45 Most recent lab results ABG pH 7.40 pH Units (7.32-7.45) 02/06/18 14:00 ABG pCO2 30 mmHg (35-45) L 02/06/18 14:00 ABG pO2 85 mmHg (85-104) 02/06/18 14:00 ABG HCO3 18 mEq/L (21-27) L 02/06/18 14:00 ABG O2 Saturation 97 % (95-98) 02/06/18 14:00 Calcium 7.0 mg/dL (8.6-10.3) L 02/11/18 04:45 Phosphorus 5.1 mg/dL (2.7-4.5) H 02/06/18 07:52 Magnesium 2.0 mg/dL (1.6-2.6) 02/06/18 07:52 - Attending Attestation I examined this patient and my medical decision-making was reviewed with the Resident Physician/UNEMPLOYMENT INSPECTOR. I agree with the documented findings, disposition and treatment plan as described except to the extent set forth below. Pt seen and examined on HD today performing via temp IJ HD catheter. will discuss plans to fistulogram and/or permcath placement with IR as they are reluctant to proceed without inr down to 1.5. Continue HD with UF as tolerated today. Appreciate Dr Bennett's recs regarding wound care. Appreciate ID's contribution as well. ECF planned on discharge. Continue abx per ID and sodium thiosulfate after each HD session
[2018-02-08 10:00] LABS: Iron 27 mcg/dL (50-170); Transferrin < 75 mg/dL (203-362)
[2018-02-08] MEDS: Budesonide/Formoterol 160/4.5 MDI IH SCH ×2 (10:59→19:32)
--- NOTE | 2018-02-08 11:08 | Infectious Disease Progress No ---
Date of Encounter: 02/08/18 Time of Encounter: 11:06 - Assessment and Plan (1) Leukocytosis Current Visit: No Status: Acute The patient's WBC remains elevated and trending up today. No other sepsis criteria. Continue to trend. Blood cultures drawn 02/06/18 are NGTD x 2 sets. Qualifiers: Leukocytosis type: bandemia Qualified Code(s): D72.825 - Bandemia (2) Wound infection Current Visit: Yes Status: Acute Location: Abdominal wounds. Likely multifactorial: poorly controlled DM, obesity, non-compliance with wound care and antibiotics. Causative organism unclear, but likely polymicrobial. Previous wound culture positive for Pseudomonas stutzeri, E. coli ESBL, and Proteus. Failed to get IV Gentamicin since she wasn't going to HD. Clinically, there is marked regression in the patient's wounds since I saw her last. The wounds are necrotic and foul-smelling. She is status post bedside debridement per the surgery team yesterday. Per the surgery team, they feel that the patient's wounds can be managed her and do not require a plastic surgeon evaluation. CT of the abdomen and pelvis does not show any underling abscess. Obtain wound cultures. --> still pending collection. Not sure that they would be helpful at this point since the patient has been on antibiotics for a few days, but the wound remain foul-smelling. Will go ahead and have nursing collection. Wound care to evaluate. Continue Vancomycin IV. Pharmacy to dose. Goal trough ~15. Continue Zosyn 3.375 grams IV Q12H. Duration of treatment depends on the clinical picture. Dose-adjust antibiotics for HD. Will ask pharmacy to help with dosing her antibiotics. (3) Hyperkalemia Current Visit: Yes Status: Acute K down to 5 today. Management per the nephrology team. (4) Pleural effusion Current Visit: Yes Status: Acute CT chest showed bandlike reticular densities most pronounced in the left lung base suggestive of atelectasis with generalizes interstitial prominence with background of hazy ground-glass attenuation suggestive of pulmonary edema. There was a trace left pleural effusion with a loculated pleural fluid within the left major fissure measuring about 2.5x2.5x3.5cm. Recommend pulmonology to evaluate for possible loculated pleural fluid. (5) Weakness Current Visit: Yes Status: Acute Likely secondary to extensive wound infections. Blood cultures are NGTD x 2 sets. Continue supportive care. (6) Calciphylaxis Current Visit: No Status: Chronic Previous skin biopsies negative, but clinical picture consistent with calciphylaxis and the patient reported improvement in her symptoms when she was receiving treatment. Wound care per the general surgery team. Continue antibiotics as above. Sodium thiosulfate per nephrology. (7) ESRD (end stage renal disease) Current Visit: No Status: Chronic Nephrology consulted and following. (8) Anemia in chronic kidney disease (CKD) Current Visit: Yes Status: Chronic Hgb down to 6.9 this morning. No evidence of acute bleeding noted. Further workup and management per the primary and nephrology teams. Qualifiers: Chronic kidney disease stage: on chronic dialysis Qualified Code(s): N18.6 - End stage renal disease; D63.1 - Anemia in chronic kidney disease; Z99.2 - Dependence on renal dialysis (9) Afib Current Visit: Yes Status: Chronic Qualifiers: Atrial fibrillation type: paroxysmal Qualified Code(s): I48.0 - Paroxysmal atrial fibrillation - Subjective Interval history: Patient seen and examined in the HD unit. She appears uncomfortable, so exam was limited. No acute events noted overnight. Patient states that overall she doesn't feel much better today and is having significant pain in the new ulcers found to her buttocks. Denies fevers, chills, or rigors. Denies chest pain, shortness of breath, or cough. Reports some nausea, but no vomiting as she hasn' t had anything to eat since being admitted. Reports pain at the site of the ulcers. Denies oral thrush. Infect Dis PN-Objective Data - Labs CBC & Chem 7: 02/08/18 08:18 02/08/18 04:00 Labs: Laboratory Results - last 24 hr 02/06/18 02/07/18 02/07/18 22:23 01:38 02:11 WBC RBC Hgb Hct MCV MCH MCHC RDW Plt Count MPV Immature Gran % Seg Neutrophils % Lymphocytes % Monocytes % Eosinophils % Basophils % Neutrophils # Lymphocytes # Monocytes # Eosinophils # Basophils # Sodium Potassium Chloride Carbon Dioxide BUN Creatinine Est GFR ( Amer) Est GFR (Non-Af Amer) BUN/Creatinine Ratio Glucose POC Glucose 83 55 L 106 H Calculated Osmolality Calcium Iron % Saturation Transferrin Ammonia Vitamin B12 Random Gentamicin Random Vancomycin Specimen Rejected Blood Type Antibody Screen 02/07/18 02/07/18 02/07/18 05:31 06:58 12:36 WBC RBC Hgb Hct MCV MCH MCHC RDW Plt Count MPV Immature Gran % Seg Neutrophils % Lymphocytes % Monocytes % Eosinophils % Basophils % Neutrophils # Lymphocytes # Monocytes # Eosinophils # Basophils # Sodium Potassium Chloride Carbon Dioxide BUN Creatinine Est GFR ( Amer) Est GFR (Non-Af Amer) BUN/Creatinine Ratio Glucose POC Glucose 101 H 80 87 Calculated Osmolality Calcium Iron % Saturation Transferrin Ammonia Vitamin B12 Random Gentamicin Random Vancomycin Specimen Rejected Blood Type Antibody Screen 02/07/18 02/07/18 02/07/18 12:59 15:11 15:11 WBC RBC Hgb Hct MCV MCH MCHC RDW Plt Count MPV Immature Gran % Seg Neutrophils % Lymphocytes % Monocytes % Eosinophils % Basophils % Neutrophils # Lymphocytes # Monocytes # Eosinophils # Basophils # Sodium Potassium 3.5 D 3.5 Chloride Carbon Dioxide BUN Creatinine Est GFR ( Amer) Est GFR (Non-Af Amer) BUN/Creatinine Ratio Glucose POC Glucose Calculated Osmolality Calcium Iron % Saturation Transferrin Ammonia 32 Vitamin B12 Random Gentamicin Random Vancomycin Specimen Rejected Blood Type Antibody Screen 02/07/18 02/07/18 02/07/18 16:40 16:41 17:19 WBC RBC Hgb Hct MCV MCH MCHC RDW Plt Count MPV Immature Gran % Seg Neutrophils % Lymphocytes % Monocytes % Eosinophils % Basophils % Neutrophils # Lymphocytes # Monocytes # Eosinophils # Basophils # Sodium Potassium Chloride Carbon Dioxide BUN Creatinine Est GFR ( Amer) Est GFR (Non-Af Amer) BUN/Creatinine Ratio Glucose POC Glucose 57 L 64 L 103 H Calculated Osmolality Calcium Iron % Saturation Transferrin Ammonia Vitamin B12 Random Gentamicin Random Vancomycin Specimen Rejected Blood Type Antibody Screen 02/07/18 02/07/18 02/08/18 19:37 22:00 04:00 WBC RBC Hgb Hct MCV MCH MCHC RDW Plt Count MPV Immature Gran % Seg Neutrophils % Lymphocytes % Monocytes % Eosinophils % Basophils % Neutrophils # Lymphocytes # Monocytes # Eosinophils # Basophils # Sodium 138 Potassium 5.0 D Chloride 98 Carbon Dioxide 19 L BUN 28 H Creatinine 6.43 H Est GFR ( Amer) 9 L Est GFR (Non-Af Amer) 7 L BUN/Creatinine Ratio 4 L Glucose 72 POC Glucose 90 101 H Calculated Osmolality 290 Calcium 6.7 L Iron % Saturation Transferrin Ammonia Vitamin B12 Random Gentamicin Random Vancomycin Specimen Rejected Blood Type Antibody Screen 02/08/18 02/08/18 02/08/18 04:00 04:00 08:18 WBC 19.7 H RBC 1.96 L Hgb 6.4 L D Hct 19.3 L MCV 98.5 MCH 32.7 MCHC 33.2 RDW 20.9 H Plt Count 120 L MPV 10.6 Immature Gran % 1.4 Seg Neutrophils % 77.5 Lymphocytes % 8.7 Monocytes % 12.1 Eosinophils % 0.2 Basophils % 0.1 Neutrophils # 15.3 H Lymphocytes # 1.7 Monocytes # 2.4 H Eosinophils # 0.0 Basophils # 0.0 Sodium Potassium Chloride Carbon Dioxide BUN Creatinine Est GFR ( Amer) Est GFR (Non-Af Amer) BUN/Creatinine Ratio Glucose POC Glucose Calculated Osmolality Calcium Iron % Saturation Transferrin Ammonia Vitamin B12 Random Gentamicin 2.2 Random Vancomycin 20 Specimen Rejected Miscellaneous Blood Type Antibody Screen 02/08/18 02/08/18 02/08/18 09:14 09:14 09:14 WBC RBC Hgb Hct MCV MCH MCHC RDW Plt Count MPV Immature Gran % Seg Neutrophils % Lymphocytes % Monocytes % Eosinophils % Basophils % Neutrophils # Lymphocytes # Monocytes # Eosinophils # Basophils # Sodium Potassium Chloride Carbon Dioxide BUN Creatinine Est GFR ( Amer) Est GFR (Non-Af Amer) BUN/Creatinine Ratio Glucose POC Glucose Calculated Osmolality Calcium Iron 27 L % Saturation TNP Transferrin < 75 L Ammonia Vitamin B12 > 1500 H Random Gentamicin Random Vancomycin Specimen Rejected Blood Type B POSITIVE Antibody Screen NEGATIVE - Impressions Impressions Guidance Needle Placement Ultrasound 02/07/18 00:00 IMPRESSION: Successful temporary hemodialysis catheter placement using ultrasound guidance as above. A 20 cm triple-lumen temporary hemodialysis catheter was placed. D/ / Manav Zarco MD / Manav Zarco MD Interpreting Provider: Manav Zarco MD Insertion Non-Tunneled Catheter 02/07/18 00:00 IMPRESSION: Successful temporary hemodialysis catheter placement using ultrasound guidance as above. A 20 cm triple-lumen temporary hemodialysis catheter was placed. D/ / Manav Zarco MD / Manav Zarco MD Interpreting Provider: Manav Zarco MD Exam - Constitutional Vitals: Temp Pulse Resp BP Pulse Ox 100.6 F H 78 16 91/59 92 02/08/18 07:15 02/08/18 07:15 02/08/18 07:15 02/08/18 07:15 02/08/18 07:15 General appearance: cooperative, morbidly obese, no acute distress - Head Head exam: Present: atraumatic, normal inspection, normocephalic - Eye Eye exam: Present: EOMI, normal appearance, PERRL Pupils: Present: normal accommodation - ENT ENT exam: Present: mucous membranes moist - Neck Neck exam: Present: normal inspection Additional comments: Temporary dialysis catheter noted to the right neck with transparent dressing C/ D/I. - Respiratory Respiratory exam: Present: CTAB. Absent: rales, respiratory distress, rhonchi, wheezes - Cardiovascular Cardiovascular exam: Present: irregular rhythm, +S1, +S2. Absent: tachycardia - GI/Abdominal GI/Abdominal exam: Present: distended (obese), normal bowel sounds, soft, tenderness (around wound sites) Additional comments: Dressings to multiple ulcers to the patient abdomen noted. Foul-smelling odor noted when gown pulled up. - Extremities Exam Extremities exam: Absent: joint swelling, pedal edema, tenderness Additional comments: Dressings noted to the bilateral thighs. - Neurological Exam Neurological exam: Present: alert, oriented X3, no focal deficits - Psychiatric Psychiatric exam: Present: anxious Additional comments: Tearful - Skin Skin exam: Present: dry, intact, pallor, warm - VTE Reasons for not Prescribing Prophylaxis: Not indicated-Anticoagulated or INR therapeutic Consult Discharge Plan - Plan Referrals: Peter Vicente DO [Primary Care Provider] - - Attending Attestation I examined this patient and my medical decision-making was reviewed with the Resident Physician. I agree with the documented findings, disposition and treatment plan as described except to the extent set forth below. Discussed with the hospitalist team. No plan to transfer since the patient apparently is refusing
[2018-02-08] MEDS: *HR* FentaNYL (PF) 100 MCG/2 ML VIAL IVP PRN ×2 (11:42→19:12)
[2018-02-08] MEDS: cloNIDine HCl 0.1 MG TABLET PO SCH ×3 (13:00→23:47)
[2018-02-08] MEDS: *HR* Amiodarone 200 MG TABLET PO SCH (13:12)
[2018-02-08] MEDS: Apixaban 5 MG TABLET PO SCH (13:12)
[2018-02-08] MEDS: *HR* FentaNYL PATCH 12 MCG PATCH TD SCH (13:12)
[2018-02-08] MEDS: Folic Acid 1 MG TABLET PO SCH (13:13)
[2018-02-08] MEDS: predniSONE 10 MG TABLET PO SCH (13:13)
--- NOTE | 2018-02-08 14:21 | Event Note ---
Date of Encounter: 02/08/18 Time of Encounter: 14:20 Malathi's daughter and significant other are present. I had a very montse conversation with Malathi and her loved ones regarding Malathi's current medical diagnosis and plan of care. Unfortunately, Malathi has a poor prognosis given that calciphylaxis is lethal and carries a high morbidity/mortality rate (over 80% at 6 months) especially in those with necrotic lesions of the skin and including infection as the primary cause of high mortality. Noted sodium thiosulfate with dialysis There remains no further surgical indication at this time. Reviewed with Dr. Bennett, who also collaborated with a plastics colleague, who conferred poor prognosis and advised against further surgical intervention. Recommend gentamycin and santyl to all wounds. No further surgical debridement. Limit local trauma such as SQ/IM injecitons. Consider hyperbaric oxygen therapy for comfort. Consider palliative care/hospice consult given the lethality of ERASTO. Reviewed with typical progression and morbidity with Malathi, her daughter, and significant other and also offered palliative care consult. She is not agreeable at this time,stating, "Alexsander will heal me. I am going to live." Malathi also states she wishes to remain a full-code at this time and she would notify her nurse if she changes her mind (regarding palliative care consult). She further states she will be discharged to an ECF and if needed they may help with end of life decisions. Local wound care: remove dressings. Wash gently with soap and water. Apply gentamycin ointment. Apply Santyl nickel thick. Cover with a saline moistened gauze to activate. Cover with a dry dressing. Tape to secure. Surgery will sign off at this time. Wound care consult placed.
[2018-02-08] MEDS ORDERED: 0.9 % Sodium Chloride 250 ML ONE (16:39)
--- NOTE | 2018-02-08 16:47 | Event Note ---
Date of Encounter: 02/08/18 Time of Encounter: 16:34 updated wound measurements Mid abdomen: 4x1.5 cm unstagable L lower abdomen: 15x 15 cm at greatest lengths, irregular shape unstageable Mid lower abd: 6x11 cm depth of 2.4 cm R lower abd: 14x8 cm depth of 1.7 cm R anterior thigh 4x3 cm and 2x2 cm unstageable r outer thigh 5x6 cm unstageable L medial thigh 2x1 cm unstageable L anterior thigh 6x5cm unstageable upper abd (1 inch above and 1 inch left of umbilicus) 4x2.5 cm with a depth of 2.6 cm coccyx 2x3 cm blanchable
[2018-02-08] MEDS ORDERED: Vancomycin 500 MG in 0.9 % Sodium Chloride Mini Bag 100 ML IVPB ONE (17:00)
[2018-02-08] MEDS: Metoprolol XL (24 HR) Succ 25 MG TAB.ER.24H PO SCH (17:03)
[2018-02-08] MEDS: amLODIPine 5 MG TABLET PO SCH ×2 (17:03→23:47)
[2018-02-08] MEDS: hydrALAZINE 25 MG TABLET PO SCH ×2 (17:03→23:47)
[2018-02-08] MEDS ORDERED: 0.9 % Sodium Chloride 250 ML IVC ONE (17:05)
[2018-02-08] MEDS: Gentamicin Oint 15 GM TUBE TP SCH (17:07)
--- NOTE | 2018-02-08 17:15 | Internal Med Progress Note ---
Date of Encounter: 02/08/18 Time of Encounter: 11:35 - Assessment and plan (1) Wound infection Current Visit: Yes Status: Acute Assessment and plan: Leukocytosis worsened today. Infectious disease following. On Zosyn and vancomycin. Also receiving topical gentamicin and local wound care per surgery recommendations. Discussed with patient about transfer to tertiary [facility] center for evaluation by plastic surgery. However patient absolutely does not want to be transferred over. Remains at high risk for complications. (2) Anemia in chronic kidney disease (CKD) Current Visit: Yes Status: Chronic Assessment and plan: Acute on chronic anemia. Hemoglobin 6.4 today. We will hold eliquis for now. Check stool for occult blood. Patient has been ordered blood transfusion. We will follow blood counts closely. Qualifiers: Chronic kidney disease stage: on chronic dialysis Qualified Code(s): N18.6 - End stage renal disease; D63.1 - Anemia in chronic kidney disease; Z99.2 - Dependence on renal dialysis (3) ESRD on hemodialysis Current Visit: Yes Status: Chronic Assessment and plan: Dialyzed today per nephrology recommendations. (4) Afib Current Visit: Yes Status: Chronic Assessment and plan: Rate controlled. On anticoagulation with Eliquis Qualifiers: Atrial fibrillation type: paroxysmal Qualified Code(s): I48.0 - Paroxysmal atrial fibrillation (5) Calciphylaxis Current Visit: Yes Status: Chronic Assessment and plan: Receiving sodium thiosulfate with hemodialysis (6) DVT prophylaxis Current Visit: Yes Status: Acute Assessment and plan: On Eliquis (7) Noncompliance with renal dialysis Current Visit: Yes Status: Acute Assessment and plan: Patient wishes to go to skilled rehabilitation at the end of this hospitalization. We will make arrangements for this when patient is medically ready for discharge. - Time Spent With Patient Total time spent is greater than 50% in coordination of care (as documented) at patient's floor/unit and/or counseling patient: - Subjective Interval history: Evaluated patient during dialysis. Complaints of back pain over her sacral region. No fever or chills reported overnight. Tolerating diet well. Continues to also have pain at her lower abdomen wound sites. - Constitutional Vitals: Temp Pulse Resp BP Pulse Ox 98.4 F 79 16 78/51 93 02/08/18 17:00 02/08/18 17:00 02/08/18 17:00 02/08/18 17:00 02/08/18 17:00 General appearance: Present: cooperative, A&O X 3, obese, answers questions appropriately - Neck Neck exam general surgery: Present: supple, trachea midline. Absent: lymphadenopathy - Respiratory Respiratory exam: Present: CTAB. Absent: accessory muscle use, rales, rhonchi, wheezes - Cardiovascular Cardiovascular exam: Present: RRR, +S1, +S2. Absent: diastolic murmur, gallop, rubs, systolic murmur - GI/Abdominal GI/Abdominal exam: Present: normal bowel sounds, soft, no peritoneal signs. Absent: distended, tenderness - Extremities Exam Extremities exam: Present: warm, radial pulses palpable and symmetrical. Absent : calf tenderness, cyanotic, pedal edema - Skin Additional comments: Multiple necrotic wounds noted on the abdominal wall and her hands. Internal Medicine: Result - Labs CBC & Chem 7: 02/08/18 08:18 02/08/18 04:00 Labs: Short CBC 02/08/18 Range/Units 08:18 WBC 19.7 H (4.3-11.1) K/mcL Hgb 6.4 L D (11.5-15.4) g/dL Hct 19.3 L (35.3-44.9) % Plt Count 120 L (140-400) K/mcL Neutrophils # 15.3 H (1.6-8.9) K/mcL BMP 02/08/18 04:00 Sodium 138 Potassium 5.0 D Chloride 98 Carbon Dioxide 19 L BUN 28 H Creatinine 6.43 H Glucose 72 Calcium 6.7 L - ABG Interpretation ABG results: ABG ABG pH 7.40 pH Units (7.32-7.45) 02/06/18 14:00 ABG pCO2 30 mmHg (35-45) L 02/06/18 14:00 ABG pO2 85 mmHg (85-104) 02/06/18 14:00 ABG O2 Saturation 97 % (95-98) 02/06/18 14:00 PT/INR, D-dimer PT 25.1 Seconds (9.4-12.1) H 02/07/18 06:28 - VTE Reasons for not Prescribing Prophylaxis: Not indicated-Anticoagulated or INR therapeutic Consult Discharge Plan - Plan Referrals: Peter Vicente DO [Primary Care Provider] -
[2018-02-08] MEDS: Sodium Thiosulfate 25 GM in EMPTY BAG 1 EACH IVPB SCH (23:14)
[2018-02-09] MEDS ORDERED: Acetaminophen 325 MG TABLET PO ONE (01:43)
[2018-02-09] MEDS: Insulin LISPRO 300 UNITS/3 ML VIAL SQ SCH ×4 (02:30→16:54)
[2018-02-09] MEDS: Piperacillin/Tazobactam 3.375 GM in 0.9 % Sodium Chloride Mini Bag 100 ML IVPB SCH ×2 (05:10→19:06)
[2018-02-09 05:44] LABS: Hematocrit 20.9 % (35.3-44.9); Hemoglobin 7.1 g/dL (11.5-15.4); Mean Corpuscular Hemoglobin 32.7 pg (28.0-33.3); Mean Corpuscular Volume 96.3 fL (83.0-100.0); Mean Platelet Volume 11.1 fL (9.4-12.4); Platelet Count 113 K/mcL (140-400); Red Blood Count 2.17 M/mcL (3.82-4.97); Red Cell Distribution Width 19.1 % (11.5-14.5)
[2018-02-09 05:55] LABS: Calcium 6.7 mg/dL (8.6-10.3); Potassium 4.2 mEq/L (3.5-5.1)
[2018-02-09] MEDS: Budesonide/Formoterol 160/4.5 MDI IH SCH ×2 (07:30→20:51)
[2018-02-09] MEDS ORDERED: Dextrose Gel 15 GM/37.5 ML TUBE PO PRN (07:39)
[2018-02-09] MEDS ORDERED: D5% in Water 1,000 ML IVC PRN (07:39)
[2018-02-09] MEDS: cloNIDine HCl 0.1 MG TABLET PO SCH ×3 (09:06→20:11)
[2018-02-09] MEDS: Metoprolol XL (24 HR) Succ 25 MG TAB.ER.24H PO SCH (09:07)
[2018-02-09] MEDS: amLODIPine 5 MG TABLET PO SCH ×2 (09:07→20:14)
[2018-02-09] MEDS: hydrALAZINE 25 MG TABLET PO SCH ×2 (09:07→20:05)
--- NOTE | 2018-02-09 09:18 | Nephrology Progress Note ---
<Gisel Araujo - Last Filed: 02/09/18 09:16> Date of Encounter: 02/09/18 Time of Encounter: 09:17 - Assessment and Plan (1) ESRD (end stage renal disease) on dialysis Current Visit: Yes Status: Acute Current regimen is TTS at [facility]. Fistula is not functioning at this time. Will order additional UF and HD as needed. Avoid nephrotoxins and renal dose all medications. Awaiting INR to be drawn for today. Per IR Eliquis will be held until 2100 tonight. If Eliquis needs to be held for a longer time, will defer to primary for recommendation in holding. IR would like INR to be 1.5, was 2.2 yesterday. (2) Anemia Current Visit: No Status: Chronic Goal Hgb isd 10-11. Hgb is 7.1 today after 1 transfusion of PRBC's. Vitamin B 12 > than 1500. Folate 9.5 Iron 27 T sat unable to be determined. Transferrin < 75. Qualifiers: Anemia type: other cause Other causes of anemia: chronic disease, other Qualified Code(s): D63.8 - Anemia in other chronic diseases classified elsewhere (3) Hyperkalemia Current Visit: Yes Status: Acute Potassium is 4.2 today. (4) Weakness Current Visit: Yes Status: Acute Per primary. (5) Calciphylaxis Current Visit: Yes Status: Chronic Will continue Sodium Thiosulfate with hemodialysis. Social Service arranging transfer to [facility]. Pain is more controlled today 12/24. Surgery has signed off, nothing further from their stand point at this time. Subjective Principal diagnosis: generalized weakness Interval history: Pt seen and examined doing well. Admits to diarrhea (4 times yesterday). Denies nausea/vomiting, CP or SOB. Objective - Vital Signs Vital signs: Vital Signs Temp Pulse Resp BP Pulse Ox 02/09/18 08:08 99.7 F H 63 18 91/56 92 02/09/18 07:33 18 91 02/09/18 04:30 99.3 F 83 16 108/69 88 02/09/18 01:44 102.3 F H 76 16 95/59 90 02/08/18 23:20 94/54 02/08/18 23:04 101.6 F H 86 16 151/78 95 02/08/18 21:55 100.4 F H 80 18 106/67 02/08/18 20:05 98.7 F 79 17 110/68 92 02/08/18 19:35 14 92 02/08/18 19:23 99.6 F 76 16 104/70 90 02/08/18 19:08 99.3 F 76 16 75/49 93 02/08/18 17:00 98.4 F 79 16 78/51 93 02/08/18 12:28 97.8 F 75 16 98 02/08/18 12:20 97.3 F L 18 116/56 02/08/18 12:00 111/47 02/08/18 11:45 119/51 02/08/18 11:30 112/69 02/08/18 11:15 126/50 02/08/18 11:00 122/57 02/08/18 10:45 99/43 02/08/18 10:30 104/41 02/08/18 10:15 110/40 02/08/18 10:00 110/40 02/08/18 09:45 109/42 02/08/18 09:30 105/49 Intake and Output 02/08/18 02/09/18 02/09/18 23:59 07:59 15:59 Intake Total 350 / 350 200 / 200 Balance 350 / 350 200 / 200 Intake: IV Fluids 200 / 200 Zosyn 3.375 GM In 0.9 % Sodium 100 / 100 Chloride (Mini-Bag +) 100 ML @ 25 mls/hr IVPB Q12HR [facility] Rx#: [id number] Sodium Thiosulfate 25 GM In 100 / 100 Empty Bag 1 Each @ 100 mls/hr IVPB TuThSa@1800 [facility] Rx#: [id number] Blood Product 350 / 350 Rbcs Leuko Poor As-1 Unit 350 / 350 [id number] Other: Stool Size Small Smear Stool Consistency liquid loose Stool Color Brown Brown # Bowel Movements 1 # Bowel Movement Diapers 2 Blood Glucose* 75 85 - General Appearance General appearance: Present: well-developed, well-nourished, obese EENT: Present: ATNC, hearing intact, vision intact Neck: Present: supple Respiratory: Present: clear Cardiology: Present: no edema, normal S1, normal S2 Dialysis Vascular Access: Venous Catheter (Tunneled Line, dRSG C/D/I.) Gastrointestinal: Present: normoactive bowel sounds, no tenderness, no guarding Integumentary: Present: no rash, warm and dry Additional Comments: DRSG C/D/I to all wounds. Neurologic: Present: alert and oriented x3 Psychiatric: Present: mood/affect appropriate, cooperative - Lab 02/09/18 05:10 02/09/18 05:10 Most recent lab results ABG pH 7.40 pH Units (7.32-7.45) 02/06/18 14:00 ABG pCO2 30 mmHg (35-45) L 02/06/18 14:00 ABG pO2 85 mmHg (85-104) 02/06/18 14:00 ABG HCO3 18 mEq/L (21-27) L 02/06/18 14:00 ABG O2 Saturation 97 % (95-98) 02/06/18 14:00 Calcium 6.7 mg/dL (8.6-10.3) L 02/09/18 05:10 Phosphorus 5.1 mg/dL (2.7-4.5) H 02/06/18 07:52 Magnesium 2.0 mg/dL (1.6-2.6) 02/06/18 07:52 - VTE Reasons for not Prescribing Prophylaxis: Not indicated-Anticoagulated or INR therapeutic Consult Discharge Plan - Plan Referrals: Peter Vicente DO [Primary Care Provider] - <Saran Wei - Last Filed: 02/11/18 12:49> Date of Encounter: 02/09/18 - Assessment and Plan (1) ESRD (end stage renal disease) on dialysis Current Visit: Yes Status: Acute (2) Anemia Current Visit: No Status: Chronic Qualifiers: Anemia type: other cause Other causes of anemia: chronic disease, other Qualified Code(s): D63.8 - Anemia in other chronic diseases classified elsewhere (3) Calciphylaxis Current Visit: No Status: Chronic (4) AV fistula thrombosis Current Visit: Yes Status: Acute Qualifiers: Encounter type: subsequent encounter Qualified Code(s): T82.868D - Thrombosis due to vascular prosthetic devices, implants and grafts, subsequent encounter Objective - Vital Signs Vital signs: Vital Signs Temp Pulse Resp BP Pulse Ox 02/11/18 11:33 99.0 F 65 16 99/65 90 02/11/18 08:08 98.3 F 66 20 91/60 92 02/11/18 07:51 18 93 02/11/18 04:17 97.8 F 67 16 116/73 92 02/11/18 00:43 99.3 F 70 18 93/61 90 02/10/18 19:49 16 94 02/10/18 19:36 99.6 F 75 18 103/68 90 02/10/18 14:57 99.4 F 64 16 102/70 93 02/10/18 13:47 98.5 F 82 20 113/63 96 Intake and Output 02/10/18 02/11/18 02/11/18 23:59 07:59 15:59 Intake Total 100 / 100 120 / 120 Balance 100 / 100 120 / 120 Intake: IV Fluids 100 / 100 Zosyn 3.375 GM In 0.9 % Sodium 100 / 100 Chloride (Mini-Bag +) 100 ML @ 25 mls/hr IVPB Q12HR [facility] Rx#: [id number] Oral 120 / 120 Other: Weight 80 kg Blood Glucose* 144 105 Patient Weight 02/11/18 23:59 Weight 80 kg - Lab 02/11/18 04:45 02/11/18 04:45 Most recent lab results ABG pH 7.40 pH Units (7.32-7.45) 02/06/18 14:00 ABG pCO2 30 mmHg (35-45) L 02/06/18 14:00 ABG pO2 85 mmHg (85-104) 02/06/18 14:00 ABG HCO3 18 mEq/L (21-27) L 02/06/18 14:00 ABG O2 Saturation 97 % (95-98) 02/06/18 14:00 Calcium 7.0 mg/dL (8.6-10.3) L 02/11/18 04:45 Phosphorus 5.1 mg/dL (2.7-4.5) H 02/06/18 07:52 Magnesium 2.0 mg/dL (1.6-2.6) 02/06/18 07:52 - Attending Attestation I examined this patient and my medical decision-making was reviewed with the Resident Physician/RESIDENTIAL INTERIOR DESIGNER. I agree with the documented findings, disposition and treatment plan as described except to the extent set forth below. Pt seen and examined doing better with pain better controlled. she terminated last HD session slightly earlier due to pain, now on fentanyl patch. She also received a unit pRBCs overnight. Continue abd per ID. Wound care per Dr Bennett. Will continue hD TTS with sodium thiosulfate. sachinis held per IR's request to get inr down to 1.5 for either fistulogram or permcath whichever they are comfortable doing.
[2018-02-09] MEDS: *HR* Amiodarone 200 MG TABLET PO SCH (09:42)
[2018-02-09] MEDS: predniSONE 10 MG TABLET PO SCH (09:42)
[2018-02-09] MEDS: Folic Acid 1 MG TABLET PO SCH (09:42)
[2018-02-09] MEDS: Acetaminophen 325 MG TABLET PO PRN ×3 (09:44→20:21)
--- NOTE | 2018-02-09 09:55 | Infectious Disease Progress No ---
Date of Encounter: 02/09/18 Time of Encounter: 09:53 - Assessment and Plan (1) Sepsis Current Visit: Yes Status: Acute The patient spiked a fever overnight with a MAXIMUM TEMPERATURE of 102.3. Her white blood cell count also continues to trend up. She also had some hypotension overnight. Likely secondary to multiple wound infections, but the patient has been on broad -spectrum antibiotics for about 48 hours now, some unsure why she is having fevers now. She did receive some blood yesterday side effects related to that or if there is a new sinus infection that we have not identified. She was little hypoxic overnight, but does not have any congestion, upper respiratory symptoms, shortness of breath, or cough. She denies any new abdominal pain. She does have a blanchable wound to her coccyx, but is not open and my index of suspicion for osteomyelitis is very low. She is having some diarrhea, but she did states that is chronic for her, so not sure that it is necessarily infectious. If she starts to have more than 4 loose watery bowel movements per day, we will consider checking for C. difficile. The patient did have a tunnel dialysis catheter placed during this hospitalization, but clinically he does not appear infected. Repeat blood cultures 2 sets now. Check lactic acid. Will hold IV fluids given her history of ESRD and defer to the primary team. Get CT of the chest, abdomen, and pelvis with IV contrast. Will get today with plans for the patient to get HD tomorrow. Continue Vanco and Zosyn for now. Qualifiers: Sepsis type: sepsis due to unspecified organism Qualified Code(s): A41.9 - Sepsis, unspecified organism (2) Leukocytosis Current Visit: No Status: Acute The patient's WBC remains elevated and trending up again today. She also spiked a fever overnight. Continue to trend. Blood cultures drawn 02/06/18 are NGTD x 2 sets. Repeat blood cultures 2 sets today. Qualifiers: Leukocytosis type: bandemia Qualified Code(s): D72.825 - Bandemia (3) Wound infection Current Visit: Yes Status: Acute Location: Abdominal wounds. Likely multifactorial: poorly controlled DM, obesity, non-compliance with wound care and antibiotics. Causative organism unclear, but likely polymicrobial. Previous wound culture positive for Pseudomonas stutzeri, E. coli ESBL, and Proteus. Failed to get IV Gentamicin since she wasn't going to HD. Clinically, there is marked regression in the patient's wounds since I saw her last. The wounds are necrotic and foul-smelling. She is status post bedside debridement per the surgery team yesterday. Per the surgery team, they feel that the patient's wounds can be managed her and do not require a plastic surgeon evaluation. CT of the abdomen and pelvis does not show any underling abscess. Obtain wound cultures. --> still pending collection. Not sure that they would be helpful at this point since the patient has been on antibiotics for a few days, but the wound remain foul-smelling. Will go ahead and have nursing collection. I spoke with the patient's nurse Aleksandra this morning she states she will collect them when she changes the dressings this afternoon. Gen. surgery consulted to assist with dressing recommendations. They have signed off the case. They do not recommend transfer to a tertiary care facility for plastic surgery evaluation. Continue Vancomycin IV. Pharmacy to dose. Goal trough ~15. Continue Zosyn 3.375 grams IV Q12H. Duration of treatment depends on the clinical picture. Dose-adjust antibiotics for HD. Will ask pharmacy to help with dosing her antibiotics. (4) Hyperkalemia Current Visit: Yes Status: Resolved Resolved Management per the nephrology team. (5) Pleural effusion Current Visit: Yes Status: Acute CT chest showed bandlike reticular densities most pronounced in the left lung base suggestive of atelectasis with generalizes interstitial prominence with background of hazy ground-glass attenuation suggestive of pulmonary edema. There was a trace left pleural effusion with a loculated pleural fluid within the left major fissure measuring about 2.5x2.5x3.5cm. Recommend pulmonology to evaluate for possible loculated pleural fluid. (6) Weakness Current Visit: Yes Status: Acute Likely secondary to extensive wound infections. Blood cultures are NGTD x 2 sets. Improved. Continue supportive care. (7) Calciphylaxis Current Visit: No Status: Chronic Previous skin biopsies negative, but clinical picture consistent with calciphylaxis and the patient reported improvement in her symptoms when she was receiving treatment. Wound care per the general surgery team. Continue antibiotics as above. Sodium thiosulfate per nephrology. (8) ESRD (end stage renal disease) Current Visit: No Status: Chronic Nephrology consulted and following. (9) Anemia in chronic kidney disease (CKD) Current Visit: Yes Status: Chronic Hgb 7.1 this morning. No evidence of acute bleeding noted. Further workup and management per the primary and nephrology teams. Qualifiers: Chronic kidney disease stage: on chronic dialysis Qualified Code(s): N18.6 - End stage renal disease; D63.1 - Anemia in chronic kidney disease; Z99.2 - Dependence on renal dialysis (10) Afib Current Visit: Yes Status: Chronic Qualifiers: Atrial fibrillation type: paroxysmal Qualified Code(s): I48.0 - Paroxysmal atrial fibrillation - Subjective Interval history: Patient seen and examined. No acute events noted overnight. Patient states that overall she feels a little better today. Reports pain in her buttocks at this time secondary to recent shala-care. Denies fevers, chills, or rigors, but did have a fever with a MAXIMUM TEMPERATURE of 102.3. Denies chest pain, shortness of breath, or cough. Reports some nausea, but no vomiting. She did eat breakfast this morning and has been able to keep it down. Reports pain at the site of the ulcers. Denies oral thrush. She reports three large loose stools yesterday, but states it is normal for her to have some intermittent diarrhea. Denies congestion, earache, or sore throat. Infect Dis PN-Objective Data - Labs CBC & Chem 7: 02/09/18 05:10 02/09/18 05:10 Labs: Laboratory Results - last 24 hr 02/08/18 02/08/18 02/08/18 07:08 09:14 09:14 WBC RBC Hgb Hct MCV MCH MCHC RDW Plt Count MPV Sodium Potassium Chloride Carbon Dioxide BUN Creatinine Est GFR ( Amer) Est GFR (Non-Af Amer) BUN/Creatinine Ratio Glucose POC Glucose 83 Calculated Osmolality Calcium Iron % Saturation Transferrin Vitamin B12 > 1500 H Folate Blood Type B POSITIVE Antibody Screen NEGATIVE Crossmatch See Detail 02/08/18 02/08/18 02/08/18 09:14 09:14 12:21 WBC RBC Hgb Hct MCV MCH MCHC RDW Plt Count MPV Sodium Potassium Chloride Carbon Dioxide BUN Creatinine Est GFR ( Amer) Est GFR (Non-Af Amer) BUN/Creatinine Ratio Glucose POC Glucose 72 Calculated Osmolality Calcium Iron 27 L % Saturation TNP Transferrin < 75 L Vitamin B12 Folate 9.5 Blood Type Antibody Screen Crossmatch 02/08/18 02/08/18 02/08/18 16:33 16:35 20:14 WBC RBC Hgb Hct MCV MCH MCHC RDW Plt Count MPV Sodium Potassium Chloride Carbon Dioxide BUN Creatinine Est GFR ( Amer) Est GFR (Non-Af Amer) BUN/Creatinine Ratio Glucose POC Glucose 37 L* 39 L* 75 Calculated Osmolality Calcium Iron % Saturation Transferrin Vitamin B12 Folate Blood Type Antibody Screen Crossmatch 02/09/18 02/09/18 02/09/18 01:53 05:10 05:10 WBC 23.2 H RBC 2.17 L Hgb 7.1 L Hct 20.9 L MCV 96.3 MCH 32.7 MCHC 34.0 RDW 19.1 H Plt Count 113 L MPV 11.1 Sodium 139 Potassium 4.2 Chloride 94 L Carbon Dioxide 19 L BUN 19 Creatinine 4.22 H Est GFR ( Amer) 14 L Est GFR (Non-Af Amer) 11 L BUN/Creatinine Ratio 5 L Glucose 91 POC Glucose 118 H Calculated Osmolality 290 Calcium 6.7 L Iron % Saturation Transferrin Vitamin B12 Folate Blood Type Antibody Screen Crossmatch Exam - Constitutional Vitals: Temp Pulse Resp BP Pulse Ox 99.7 F H 63 18 91/56 92 02/09/18 08:08 02/09/18 08:08 02/09/18 08:08 02/09/18 08:08 02/09/18 08:08 General appearance: cooperative, morbidly obese, no acute distress - Head Head exam: Present: atraumatic, normal inspection, normocephalic - Eye Eye exam: Present: EOMI, normal appearance, PERRL Pupils: Present: normal accommodation - ENT ENT exam: Present: mucous membranes moist - Neck Neck exam: Present: normal inspection Additional comments: Temporary dialysis catheter noted to the right neck with transparent dressing clean, dry, and intact. No erythema, warmth, tenderness, or drainage noted. - Respiratory Respiratory exam: Present: CTAB. Absent: rales, respiratory distress, rhonchi, wheezes - Cardiovascular Cardiovascular exam: Present: RRR, +S1, +S2 - GI/Abdominal GI/Abdominal exam: Present: distended (Obese), normal bowel sounds, soft. Absent: tenderness - Extremities Exam Extremities exam: Present: pedal edema (1+ bilateral lower extremities), tenderness (Bilateral thigh ulcerations). Absent: joint swelling - Back Exam Additional comments: Patient declined exam. - Neurological Exam Neurological exam: Present: alert, oriented X3, no focal deficits - Psychiatric Psychiatric exam: Present: normal affect, normal mood - Skin Skin exam: Present: dry, intact, normal color, warm Additional comments: AV fistula noted to the left upper extremity that is positive bruit, negative thrill. Dressings to the multiple abdominal lesions are clean, dry, and intact. Chowder persists. Bilateral upper thigh dressings are clean, dry, and intact. - VTE Reasons for not Prescribing Prophylaxis: Not indicated-Anticoagulated or INR therapeutic Consult Discharge Plan - Plan Referrals: Peter Vicente DO [Primary Care Provider] - - Attending Attestation I examined this patient and my medical decision-making was reviewed with the Resident Physician. I agree with the documented findings, disposition and treatment plan as described except to the extent set forth below. I had a long discussion with the patient regarding prognosis and treatment plan. Explained to her at length that antibiotics by themselves are not sufficient and will not treat her symptoms. Patient needs aggressive surgical debridement. Patient crying and stated that she does not leave because her family will be able to visit her at [facility]. I explained to her that she really needs aggressive treatment and sometimes after bankcard decisions. Amber's with the surgery team who where a little bit more montse with her and told her that if she does not get transferred she might have very high morbidity and mortality. Prognosis guarded at best
[2018-02-09 10:38] LABS: INR 2.8; Prothrombin Time 31.7 Seconds (9.4-12.1)
--- NOTE | 2018-02-09 13:57 | Internal Med Progress Note ---
Date of Encounter: 02/09/18 Time of Encounter: 11:00 - Assessment and plan (1) Wound infection Current Visit: Yes Status: Acute Assessment and plan: Continue local wound care per surgery recommendations. Continue current IV antibiotics. Infectious disease is following. Patient continues to have worsening leukocytosis. Does not wish to go to a tertiary care center for further evaluation. Infectious disease recommends CT scan of the abdomen and pelvis along with her chest to evaluate for any other superimposed infection. (2) Anemia in chronic kidney disease (CKD) Current Visit: Yes Status: Chronic Assessment and plan: Hemoglobin levels improved after patient received 1 unit PRBC. Another unit of PRBC has been ordered. Will premedicate with Tylenol. Stool for occult blood also ordered. Currently pending. Qualifiers: Qualified Code(s): N18.6 - End stage renal disease; D63.1 - Anemia in chronic kidney disease; Z99.2 - Dependence on renal dialysis (3) ESRD on hemodialysis Current Visit: Yes Status: Chronic Assessment and plan: Continue dialysis per nephrology recommendations. Fistulogram ordered but INR remains greater than 2. We will continue to hold a little coarse. (4) Afib Current Visit: Yes Status: Chronic Assessment and plan: Rate controlled. Anticoagulation with the liquids. Currently on hold. Qualifiers: Qualified Code(s): I48.0 - Paroxysmal atrial fibrillation (5) Calciphylaxis Current Visit: Yes Status: Chronic Assessment and plan: Continue sodium thiosulfate with hemodialysis. (6) DVT prophylaxis Current Visit: Yes Status: Acute Assessment and plan: INR is 2.8. Holding eliquis for now. (7) Noncompliance with renal dialysis Current Visit: Yes Status: Acute - Time Spent With Patient Total time spent is greater than 50% in coordination of care (as documented) at patient's floor/unit and/or counseling patient: - Subjective Interval history: Patient is feeling much better today. Pain is well controlled. Still did not does not wish to go to [place] for higher level of care. Did have episodes of low blood pressure yesterday evening but blood pressure has improved since then. Had an episode of fever while she was receiving blood transfusion yesterday. It resolved posttransfusion. - Constitutional Vitals: Temp Pulse Resp BP Pulse Ox 99.7 F H 93 18 94/54 92 02/09/18 11:52 02/09/18 11:52 02/09/18 11:52 02/09/18 11:52 02/09/18 11:52 General appearance: Present: cooperative, A&O X 3, obese, answers questions appropriately - Respiratory Respiratory exam: Present: decreased breath sounds (At bases). Absent: accessory muscle use, rales, rhonchi, wheezes - Cardiovascular Cardiovascular exam: Present: RRR, +S1, +S2. Absent: diastolic murmur, gallop, rubs, systolic murmur - GI/Abdominal GI/Abdominal exam: Present: normal bowel sounds, soft, no peritoneal signs. Absent: distended, tenderness - Extremities Exam Extremities exam: Present: warm, radial pulses palpable and symmetrical. Absent : calf tenderness, cyanotic, pedal edema - Neurological Exam Neurological exam: Present: alert, oriented X3, no focal deficits. Absent: facial droop, speech deficit - Skin Skin exam: Present: dry, intact Additional comments: Multiple necrotic / eschar lesions noted on the abdominal wall, the thigh and on fingers Internal Medicine: Result - Labs CBC & Chem 7: 02/09/18 05:10 02/09/18 05:10 Labs: Short CBC 02/09/18 Range/Units 05:10 WBC 23.2 H (4.3-11.1) K/mcL Hgb 7.1 L (11.5-15.4) g/dL Hct 20.9 L (35.3-44.9) % Plt Count 113 L (140-400) K/mcL BMP 02/09/18 05:10 Sodium 139 Potassium 4.2 Chloride 94 L Carbon Dioxide 19 L BUN 19 Creatinine 4.22 H Glucose 91 Calcium 6.7 L - ABG Interpretation ABG results: ABG ABG pH 7.40 pH Units (7.32-7.45) 02/06/18 14:00 ABG pCO2 30 mmHg (35-45) L 02/06/18 14:00 ABG pO2 85 mmHg (85-104) 02/06/18 14:00 ABG O2 Saturation 97 % (95-98) 02/06/18 14:00 PT/INR, D-dimer PT 31.7 Seconds (9.4-12.1) H 02/09/18 10:00 - VTE Reasons for not Prescribing Prophylaxis: Not indicated-Anticoagulated or INR therapeutic Consult Discharge Plan - Plan Referrals: Peter Vicente DO [Primary Care Provider] -
[2018-02-09] MEDS ORDERED: Isovue-370 500 ML INFUS..BTL IV ONE (14:37)
[2018-02-09] MEDS: Gentamicin Oint 15 GM TUBE TP SCH (16:10)
[2018-02-10] MEDS: *HR* HYDROcodone/Acet 10/325 mg TABLET PO PRN ×2 (02:34→13:14)
[2018-02-10] MEDS: Insulin LISPRO 300 UNITS/3 ML VIAL SQ SCH ×5 (05:47→23:50)
[2018-02-10] MEDS: Piperacillin/Tazobactam 3.375 GM in 0.9 % Sodium Chloride Mini Bag 100 ML IVPB SCH ×2 (06:35→19:15)
[2018-02-10 06:59] LABS: Hematocrit 22.6 % (35.3-44.9); Hemoglobin 7.6 g/dL (11.5-15.4); Mean Corpuscular HGB Conc 33.6 g/dL (31.6-35.5); Mean Corpuscular Hemoglobin 31.9 pg (28.0-33.3); Mean Platelet Volume 10.8 fL (9.4-12.4); Platelet Count 104 K/mcL (140-400); Red Blood Count 2.38 M/mcL (3.82-4.97); Red Cell Distribution Width 18.6 % (11.5-14.5)
[2018-02-10 07:04] LABS: INR 2.2; Prothrombin Time 24.5 Seconds (9.4-12.1)
[2018-02-10] MEDS ORDERED: 0.9 % Sodium Chloride 1,000 ML ONE (07:44)
[2018-02-10] MEDS: Budesonide/Formoterol 160/4.5 MDI IH SCH ×2 (07:52→19:48)
[2018-02-10] MEDS ORDERED: 0.9 % Sodium Chloride 250 ML IVC PRN (08:36)
[2018-02-10] MEDS ORDERED: 0.9 % Sodium Chloride 1,000 ML PRIME SCH (08:45)
[2018-02-10] MEDS: Folic Acid 1 MG TABLET PO SCH (09:12)
[2018-02-10] MEDS: amLODIPine 5 MG TABLET PO SCH ×2 (09:12→19:47)
[2018-02-10] MEDS: Acetaminophen 325 MG TABLET PO PRN ×3 (09:12→23:54)
[2018-02-10] MEDS: predniSONE 10 MG TABLET PO SCH (09:12)
[2018-02-10] MEDS: *HR* Amiodarone 200 MG TABLET PO SCH (09:12)
[2018-02-10] MEDS: cloNIDine HCl 0.1 MG TABLET PO SCH (09:13)
[2018-02-10] MEDS: Metoprolol XL (24 HR) Succ 25 MG TAB.ER.24H PO SCH ×3 (09:13→19:47)
[2018-02-10] MEDS: hydrALAZINE 25 MG TABLET PO SCH ×2 (09:13→19:43)
--- NOTE | 2018-02-10 12:24 | Nephrology Progress Note ---
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 Pain mostly controlled with patch but still needs po meds prn for breakthru. Boyfriend at bedside. Objective - Vital Signs Vital signs: Vital Signs Temp Pulse Resp BP Pulse Ox 02/10/18 12:10 120/72 02/10/18 11:55 111/67 02/10/18 11:40 106/72 02/10/18 11:25 119/68 02/10/18 11:10 101/62 02/10/18 10:55 114/70 02/10/18 10:40 116/77 02/10/18 10:25 105/68 02/10/18 10:10 101/62 02/10/18 09:55 105/78 02/10/18 09:40 107/80 02/10/18 09:25 114/78 02/10/18 09:10 127/70 02/10/18 08:55 98.2 F 18 109/69 02/10/18 07:58 18 96 02/10/18 07:33 98.9 F 120 16 101/69 94 02/10/18 04:20 98.7 F 98 18 101/70 92 02/10/18 00:02 99.2 F 78 18 105/72 92 02/09/18 20:53 16 93 02/09/18 20:26 93 02/09/18 19:22 99.3 F 88 16 102/66 98 02/09/18 19:05 99.1 F 16 88/54 95 02/09/18 16:21 99.7 F H 85 16 100/66 94 02/09/18 16:06 99.2 F 87 16 72/43 91 Intake and Output 02/09/18 02/10/18 02/10/18 23:59 07:59 15:59 Intake Total 570 / 570 600 / 600 Balance 570 / 570 600 / 600 Intake: IV Fluids 100 / 100 Zosyn 3.375 GM In 0.9 % Sodium 100 / 100 Chloride (Mini-Bag +) 100 ML @ 25 mls/hr IVPB Q12HR [facility] Rx#: [id number] Oral 120 / 120 0 / 0 Blood Product 350 / 350 Rbcs Leuko Poor As-1 Unit 350 / 350 [id number] Intake, Rinseback and Flushes 600 / 600 Other: Meal Dinner Percent of Meal Consumed 50% Weight 80.5 kg Blood Glucose* 136 86 91 Hemodialysis Net Fluid Removed 4272 (mL) Patient Weight 02/10/18 23:59 Weight 80.5 kg - General Appearance General appearance: Present: chronically ill EENT: Present: ATNC, mucous membranes moist Neck: Present: no JVD, supple Respiratory: Present: clear Cardiology: Present: no edema, normal S1, normal S2 Dialysis Vascular Access: Arteriovenous Fistula thrill: No bruit: No Additional Comments: Temp IJ HD catheter in place Gastrointestinal: Present: no tenderness, no guarding, obese Additional Comments: wounds with dressing Integumentary: Present: warm and dry Neurologic: Present: no focal deficit Musculoskeletal: Present: no deformities Psychiatric: Present: mood/affect appropriate - Lab 02/11/18 04:45 02/11/18 04:45 Most recent lab results ABG pH 7.40 pH Units (7.32-7.45) 02/06/18 14:00 ABG pCO2 30 mmHg (35-45) L 02/06/18 14:00 ABG pO2 85 mmHg (85-104) 02/06/18 14:00 ABG HCO3 18 mEq/L (21-27) L 02/06/18 14:00 ABG O2 Saturation 97 % (95-98) 02/06/18 14:00 Calcium 7.0 mg/dL (8.6-10.3) L 02/10/18 06:15 Phosphorus 5.1 mg/dL (2.7-4.5) H 02/06/18 07:52 Magnesium 2.0 mg/dL (1.6-2.6) 02/06/18 07:52 - VTE Reasons for not Prescribing Prophylaxis: Not indicated-Anticoagulated or INR therapeutic Consult Discharge Plan - Plan Referrals: Peter Vicente DO [Primary Care Provider] -
--- NOTE | 2018-02-10 13:05 | Internal Med Progress Note ---
Date of Encounter: 02/10/18 Time of Encounter: 13:08 - Assessment and plan (1) Wound infection Current Visit: Yes Status: Acute Assessment and plan: Continue current antibiotics. Infectious disease following. No new episodes of fever overnight. Pain is better controlled. Blood cultures have been negative. (2) Anemia in chronic kidney disease (CKD) Current Visit: Yes Status: Chronic Assessment and plan: Stable hemoglobin level since her blood transfusion. We will continue to monitor. Holding anticoagulation in anticipation for planned procedure on Monday. Unable to stop anticoagulation completely due to recent thrombosis of her AV fistula Qualifiers: Chronic kidney disease stage: on chronic dialysis Qualified Code(s): N18.6 - End stage renal disease; D63.1 - Anemia in chronic kidney disease; Z99.2 - Dependence on renal dialysis (3) ESRD on hemodialysis Current Visit: Yes Status: Chronic Assessment and plan: Continue dialysis per nephrology recommendations. (4) Afib Current Visit: Yes Status: Chronic Assessment and plan: Patient is tachycardic today. We will medicate with IV Lopressor as needed. Continue to monitor heart rate with telemetry. Continue Toprol-XL and amiodarone Qualifiers: Atrial fibrillation type: paroxysmal Qualified Code(s): I48.0 - Paroxysmal atrial fibrillation (5) Calciphylaxis Current Visit: Yes Status: Chronic Assessment and plan: Patient continues to receive sodium thiosulfate with hemodialysis. (6) DVT prophylaxis Current Visit: Yes Status: Acute Assessment and plan: INR is 2.2 today. Holding eliquis for now for planned procedure on Monday. (7) Noncompliance with renal dialysis Current Visit: Yes Status: Acute (8) Sepsis Current Visit: Yes Status: Acute Assessment and plan: Due to abdominal wound infection and necrosis. On IV antibiotics per infectious disease recommendations. Qualifiers: Sepsis type: sepsis due to unspecified organism Qualified Code(s): A41.9 - Sepsis, unspecified organism - Time Spent With Patient Total time spent is greater than 50% in coordination of care (as documented) at patient's floor/unit and/or counseling patient: - Subjective Interval history: Evaluated patient earlier today when she was receiving hemodialysis. She seems to be in good spirits. Her pain is well controlled. She denies any new complaints. Is tolerating diet well. No fever reported overnight. - Constitutional Vitals: Temp Pulse Resp BP Pulse Ox 97.6 F 120 20 120/72 96 02/10/18 12:38 02/10/18 07:33 02/10/18 12:38 02/10/18 12:38 02/10/18 07:58 General appearance: Present: cooperative, A&O X 3, obese, answers questions appropriately - Respiratory Respiratory exam: Present: CTAB. Absent: accessory muscle use, rales, rhonchi, wheezes - Cardiovascular Cardiovascular exam: Present: irregular rhythm, +S1, +S2, tachycardia. Absent: diastolic murmur, gallop, rubs, systolic murmur - GI/Abdominal GI/Abdominal exam: Present: normal bowel sounds, soft, no peritoneal signs. Absent: distended, tenderness - Extremities Exam Extremities exam: Present: warm, radial pulses palpable and symmetrical. Absent : calf tenderness, cyanotic, pedal edema - Neurological Exam Neurological exam: Present: CN II-XII intact, oriented X3, no focal deficits. Absent: facial droop, speech deficit - Skin Additional comments: Multiple Necrotic lesions noted in the abdominal wall and upper thighs Internal Medicine: Result - Labs CBC & Chem 7: 02/10/18 06:15 02/10/18 06:15 Labs: Short CBC 02/10/18 Range/Units 06:15 WBC 22.0 H (4.3-11.1) K/mcL Hgb 7.6 L (11.5-15.4) g/dL Hct 22.6 L (35.3-44.9) % Plt Count 104 L (140-400) K/mcL BMP 02/10/18 06:15 Sodium 139 Potassium 5.0 Chloride 89 L Carbon Dioxide 16 L BUN 29 H Creatinine 6.34 H Glucose 87 Calcium 7.0 L - ABG Interpretation ABG results: ABG ABG pH 7.40 pH Units (7.32-7.45) 02/06/18 14:00 ABG pCO2 30 mmHg (35-45) L 02/06/18 14:00 ABG pO2 85 mmHg (85-104) 02/06/18 14:00 ABG O2 Saturation 97 % (95-98) 02/06/18 14:00 PT/INR, D-dimer PT 24.5 Seconds (9.4-12.1) H 02/10/18 06:15 - Impressions Impressions Abdomen/Pelvis CT 02/09/18 14:37 IMPRESSION: A thick walled fluid collection left lower lobe may be within the left major fissure. It has decreased slightly in size from 3 days ago. Bowel wall edema appears mildly improved. There are large open wounds in the anterior abdominal wall/ panniculus that were also present on the study 3 days ago. There is no associated drainable fluid collection/abscess. Flank edema has increased. D/ / Balwinder Holland MD / Balwinder Holland MD Interpreting Provider: Balwinder Holland MD Chest CT 02/09/18 14:37 IMPRESSION: No substantial change from 02/06/2018. Bibasilar reticular opacities may represent atelectasis and/or scarring. Trace pleural effusions versus pleural thickening. Unchanged small loculated effusion along the left major fissure. D/ / 02/10/2018 05:43:32 Celestino Ugalde MD / suzy Interpreting Provider: Celestino Ugalde MD - VTE Reasons for not Prescribing Prophylaxis: Not indicated-Anticoagulated or INR therapeutic Consult Discharge Plan - Plan Referrals: Peter Vicente DO [Primary Care Provider] -
[2018-02-10] MEDS ORDERED: *HR* Metoprolol 5 MG/5 ML VIAL IVP ONE (13:09)
[2018-02-10] MEDS ORDERED: *HR* Metoprolol 5 MG/5 ML VIAL IVP PRN (15:23)
[2018-02-10] MEDS: Sodium Thiosulfate 25 GM in EMPTY BAG 1 EACH IVPB SCH (22:55)
[2018-02-11 04:55] LABS: Hematocrit 21.2 % (35.3-44.9); Hemoglobin 6.9 g/dL (11.5-15.4); Mean Corpuscular HGB Conc 32.5 g/dL (31.6-35.5); Mean Corpuscular Hemoglobin 30.9 pg (28.0-33.3); Mean Corpuscular Volume 95.1 fL (83.0-100.0); Mean Platelet Volume 11.1 fL (9.4-12.4); Platelet Count 104 K/mcL (140-400); Red Blood Count 2.23 M/mcL (3.82-4.97); Red Cell Distribution Width 18.6 % (11.5-14.5)
[2018-02-11 05:22] LABS: Potassium 3.7 mEq/L (3.5-5.1)
[2018-02-11] MEDS: Apixaban 5 MG TABLET PO SCH ×2 (06:18→09:11)
[2018-02-11] MEDS: Piperacillin/Tazobactam 3.375 GM in 0.9 % Sodium Chloride Mini Bag 100 ML IVPB SCH ×2 (06:38→20:03)
[2018-02-11] MEDS: Budesonide/Formoterol 160/4.5 MDI IH SCH ×2 (07:48→20:28)
[2018-02-11] MEDS: Insulin LISPRO 300 UNITS/3 ML VIAL SQ SCH ×4 (09:04→21:28)
[2018-02-11] MEDS: predniSONE 10 MG TABLET PO SCH (09:11)
[2018-02-11] MEDS: Metoprolol XL (24 HR) Succ 25 MG TAB.ER.24H PO SCH ×2 (09:11→20:03)
[2018-02-11] MEDS: Folic Acid 1 MG TABLET PO SCH (09:11)
[2018-02-11] MEDS: *HR* Amiodarone 200 MG TABLET PO SCH (09:11)
[2018-02-11] MEDS: hydrALAZINE 25 MG TABLET PO SCH ×2 (09:11→20:03)
[2018-02-11] MEDS: amLODIPine 5 MG TABLET PO SCH ×2 (09:12→20:03)
--- NOTE | 2018-02-11 11:06 | Internal Med Progress Note ---
Date of Encounter: 02/11/18 Time of Encounter: 11:03 - Assessment and plan (1) Sepsis Current Visit: Yes Status: Acute Assessment and plan: Due to multiple calciphylaxis related wound infections. On IV antibiotics per infectious disease recommendations. Leukocytosis improving. Qualifiers: Sepsis type: sepsis due to unspecified organism Qualified Code(s): A41.9 - Sepsis, unspecified organism (2) Wound infection Current Visit: Yes Status: Acute Assessment and plan: Continue IV antibiotics per infectious disease recommendations. Will most likely de-escalate tomorrow. Blood cultures have been negative so far. Prior wound cultures grew Pseudomonas Proteus and Escherichia coli. Patient was previously on gentamicin but failed outpatient treatment due to noncompliance. She is currently on Zosyn and vancomycin. (3) Anemia in chronic kidney disease (CKD) Current Visit: Yes Status: Chronic Assessment and plan: Hemoglobin 6.9 today. We will transfuse 1 unit PRBC. Discussed with nephrology. She has previously had upper GI endoscopy which showed chronic gastritis. Patient does have iron deficiency anemia. However she does have stool positive for occult blood. We will consult GI to see if she needs a colonoscopy. Qualifiers: Chronic kidney disease stage: on chronic dialysis Qualified Code(s): N18.6 - End stage renal disease; D63.1 - Anemia in chronic kidney disease; Z99.2 - Dependence on renal dialysis (4) ESRD on hemodialysis Current Visit: Yes Status: Chronic Assessment and plan: Continue dialysis per her usual regimen. Nephrology on board. (5) Afib Current Visit: Yes Status: Chronic Assessment and plan: Heart rate is better controlled today. Metoprolol dosage has been increased to 25 mg by mouth twice a day. Patient's blood pressure is soft and labile. We will monitor closely and adjust metoprolol dosing accordingly. Qualifiers: Atrial fibrillation type: paroxysmal Qualified Code(s): I48.0 - Paroxysmal atrial fibrillation (6) Calciphylaxis Current Visit: Yes Status: Chronic Assessment and plan: Poor overall prognosis due to calciphylaxis. Patient receiving sodium thiosulfate with hemodialysis. (7) DVT prophylaxis Current Visit: Yes Status: Acute Assessment and plan: Patient was previously on eliquis but this has been held in anticipation for planned fistulogram/permanent dialysis catheter placement. Also patient having stool positive for occult blood and anemia. However he cannot hold off on anticoagulation for long given that she has had thrombosis in her AV fistula and has underlying A. fib. (8) Noncompliance with renal dialysis Current Visit: Yes Status: Acute Assessment and plan: Patient agrees to placement to skilled rehabilitation. Will arrange for placement at time of discharge. - Time Spent With Patient Total time spent is greater than 50% in coordination of care (as documented) at patient's floor/unit and/or counseling patient: - Subjective Interval history: Patient continues to feel better today. She denies any abdominal pain. No diarrhea reported. No nausea or vomiting. No fever reported. She denies any hematemesis or melena. - Constitutional Vitals: Temp Pulse Resp BP Pulse Ox 98.3 F 66 20 91/60 92 02/11/18 08:08 02/11/18 08:08 02/11/18 08:08 02/11/18 08:08 02/11/18 08:08 General appearance: Present: cooperative, A&O X 3, obese, answers questions appropriately - Neck Neck exam general surgery: Present: supple, trachea midline. Absent: lymphadenopathy - Respiratory Respiratory exam: Present: CTAB. Absent: accessory muscle use, rales, rhonchi, wheezes - Cardiovascular Cardiovascular exam: Present: RRR, +S1, +S2. Absent: diastolic murmur, gallop, rubs, systolic murmur - GI/Abdominal GI/Abdominal exam: Present: normal bowel sounds, soft, no peritoneal signs. Absent: distended, tenderness - Skin Additional comments: Patient has multiple necrotic wounds that have been debrided on her abdominal wall and upper thigh and her left hand. Internal Medicine: Result - Labs CBC & Chem 7: 02/11/18 04:45 02/11/18 04:45 Labs: Short CBC 02/11/18 Range/Units 04:45 WBC 15.7 H (4.3-11.1) K/mcL Hgb 6.9 L (11.5-15.4) g/dL Hct 21.2 L (35.3-44.9) % Plt Count 104 L (140-400) K/mcL BMP 02/11/18 04:45 Sodium 140 Potassium 3.7 D Chloride 94 L Carbon Dioxide 23 BUN 18 Creatinine 4.15 H Glucose 137 H Calcium 7.0 L - ABG Interpretation ABG results: ABG ABG pH 7.40 pH Units (7.32-7.45) 02/06/18 14:00 ABG pCO2 30 mmHg (35-45) L 02/06/18 14:00 ABG pO2 85 mmHg (85-104) 02/06/18 14:00 ABG O2 Saturation 97 % (95-98) 02/06/18 14:00 PT/INR, D-dimer PT 24.5 Seconds (9.4-12.1) H 02/10/18 06:15 - Impressions Impressions Chest CT 02/09/18 14:37 IMPRESSION: No substantial change from 02/06/2018. Bibasilar reticular opacities may represent atelectasis and/or scarring. Trace pleural effusions versus pleural thickening. Unchanged small loculated effusion along the left major fissure. D/ / 02/10/2018 05:43:32 Celestino Ugalde MD / ciriloyer Interpreting Provider: Celestino Ugalde MD - VTE Reasons for not Prescribing Prophylaxis: Not indicated-Anticoagulated or INR therapeutic Consult Discharge Plan - Plan Referrals: Peter Vicente DO [Primary Care Provider] -
[2018-02-11 11:42] LABS: INR 1.7; Prothrombin Time 18.9 Seconds (9.4-12.1)
--- NOTE | 2018-02-11 13:03 | Nephrology Progress Note ---
Date of Encounter: 02/11/18 Time of Encounter: 12:00 - Assessment and Plan (1) ESRD (end stage renal disease) on dialysis Status: Acute Next HD planned for [place] stable (2) Anemia Status: Chronic Hgb down at 6.9 with transfusion 1 unit HD planned by primary team today which appropriate Will dialyze monday instead of monday if more transfusions needed for fluid management Stool gauiac positive, GI consulted Qualifiers: Anemia type: other cause Other causes of anemia: chronic disease, other Qualified Code(s): D63.8 - Anemia in other chronic diseases classified elsewhere (3) Calciphylaxis Status: Chronic Continue wound care Continue pain control continue abx Continue sodium thiosulfate after Hd sessions pt did not want transfer for plastics care or hyperbaric oxygen therapy, prefers to stay here (4) AV fistula thrombosis Status: Acute Await IR on whether fistulogram or permcath to be done on monday May need FFP if inr stays elevated Qualifiers: Encounter type: subsequent encounter Qualified Code(s): T82.868D - Thrombosis due to vascular prosthetic devices, implants and grafts, subsequent encounter Subjective Principal diagnosis: generalized weakness Interval history: Pt seen and examined on HD, doing better. Pain mostly controlled with patch but still needs po meds prn for breakthru. Objective - Vital Signs Vital signs: Vital Signs Temp Pulse Resp BP Pulse Ox 02/11/18 11:33 99.0 F 65 16 99/65 90 02/11/18 08:08 98.3 F 66 20 91/60 92 02/11/18 07:51 18 93 02/11/18 04:17 97.8 F 67 16 116/73 92 02/11/18 00:43 99.3 F 70 18 93/61 90 02/10/18 19:49 16 94 02/10/18 19:36 99.6 F 75 18 103/68 90 02/10/18 14:57 99.4 F 64 16 102/70 93 02/10/18 13:47 98.5 F 82 20 113/63 96 Intake and Output 02/10/18 02/11/18 02/11/18 23:59 07:59 15:59 Intake Total 100 / 100 120 / 120 Balance 100 / 100 120 / 120 Intake: IV Fluids 100 / 100 Zosyn 3.375 GM In 0.9 % Sodium 100 / 100 Chloride (Mini-Bag +) 100 ML @ 25 mls/hr IVPB Q12HR [facility] Rx#: [id number] Oral 120 / 120 Other: Weight 80 kg Blood Glucose* 144 105 Patient Weight 02/11/18 23:59 Weight 80 kg - General Appearance General appearance: Present: chronically ill (NAD) EENT: Present: ATNC, mucous membranes moist Neck: Present: no JVD, supple Respiratory: Present: clear (ant bilat) Cardiology: Present: no edema, normal S1, normal S2 Dialysis Vascular Access: Venous Catheter (temp IJ) Additional Comments: AVF nonfunctional but still with thrill Gastrointestinal: Present: no tenderness, no guarding, obese (wounds with dressing) Integumentary: Present: warm and dry Neurologic: Present: no focal deficit Musculoskeletal: Present: no deformities Psychiatric: Present: mood/affect appropriate - Lab 02/17/18 06:30 02/17/18 06:30 Most recent lab results ABG pH 7.40 pH Units (7.32-7.45) 02/06/18 14:00 ABG pCO2 30 mmHg (35-45) L 02/06/18 14:00 ABG pO2 85 mmHg (85-104) 02/06/18 14:00 ABG HCO3 18 mEq/L (21-27) L 02/06/18 14:00 ABG O2 Saturation 97 % (95-98) 02/06/18 14:00 Calcium 7.0 mg/dL (8.6-10.3) L 02/11/18 04:45 Phosphorus 5.1 mg/dL (2.7-4.5) H 02/06/18 07:52 Magnesium 2.0 mg/dL (1.6-2.6) 02/06/18 07:52 - VTE Reasons for not Prescribing Prophylaxis: Not indicated-Anticoagulated or INR therapeutic Consult Discharge Plan - Plan Additional Instructions: Take medications as prescribed Ensure that you make it to dialysis on Monday, , and Saturdays Referrals: Peter Vicente DO [Primary Care Provider] - Prescriptions: FentaNYL PATCH [Duragesic] 12 mcg TD Q72H 6 Days #2 patch.td72 Gentamicin Sulfate 80 mg IVPB WD #8 mls HYDROcodone/Acet 10/325 mg [[place] 10-325 mg] 1 each PO Q6H PRN 3 Days #12 tablet PRN Reason: Severe Pain
[2018-02-11] MEDS: *HR* HYDROcodone/Acet 10/325 mg TABLET PO PRN (13:44)
[2018-02-11] MEDS: *HR* FentaNYL PATCH 12 MCG PATCH TD SCH (13:46)
[2018-02-11] MEDS: Gentamicin Oint 15 GM TUBE TP SCH ×2 (21:28→21:30)
[2018-02-11] MEDS: Acetaminophen 325 MG TABLET PO PRN (23:58)
[2018-02-12 05:05] LABS: Hematocrit 25.8 % (35.3-44.9); Mean Corpuscular HGB Conc 32.9 g/dL (31.6-35.5); Mean Corpuscular Hemoglobin 31.1 pg (28.0-33.3); Mean Corpuscular Volume 94.5 fL (83.0-100.0); Mean Platelet Volume 11.1 fL (9.4-12.4); Platelet Count 121 K/mcL (140-400); Red Blood Count 2.73 M/mcL (3.82-4.97); Red Cell Distribution Width 17.7 % (11.5-14.5)
[2018-02-12 05:06] LABS: Hemoglobin 8.5 g/dL (11.5-15.4)
[2018-02-12 05:27] LABS: Calcium 7.2 mg/dL (8.6-10.3); Potassium 4.4 mEq/L (3.5-5.1)
[2018-02-12] MEDS: Piperacillin/Tazobactam 3.375 GM in 0.9 % Sodium Chloride Mini Bag 100 ML IVPB SCH ×2 (06:14→17:25)
[2018-02-12] MEDS ORDERED: 0.9 % Sodium Chloride 2,000 ML ONE (06:28)
[2018-02-12 06:41] LABS: INR 1.7; Prothrombin Time 18.7 Seconds (9.4-12.1)
[2018-02-12] MEDS: Budesonide/Formoterol 160/4.5 MDI IH SCH ×2 (07:32→20:01)
[2018-02-12] MEDS: Acetaminophen 325 MG TABLET PO PRN ×2 (07:32→21:26)
[2018-02-12] MEDS: Insulin LISPRO 300 UNITS/3 ML VIAL SQ SCH ×4 (07:51→20:48)
[2018-02-12] MEDS: *HR* Amiodarone 200 MG TABLET PO SCH (09:41)
[2018-02-12] MEDS: hydrALAZINE 25 MG TABLET PO SCH ×2 (09:41→21:26)
[2018-02-12] MEDS: amLODIPine 5 MG TABLET PO SCH ×2 (09:41→21:27)
[2018-02-12] MEDS: predniSONE 10 MG TABLET PO SCH (09:42)
[2018-02-12] MEDS: Metoprolol XL (24 HR) Succ 25 MG TAB.ER.24H PO SCH ×2 (09:42→21:27)
[2018-02-12] MEDS: Folic Acid 1 MG TABLET PO SCH (09:42)
--- NOTE | 2018-02-12 10:00 | Nephrology Progress Note ---
Date of Encounter: 02/12/18 Time of Encounter: 10:00 - Assessment and Plan (1) ESRD (end stage renal disease) on dialysis Current Visit: Yes Status: Acute Current regimen is TTS at [facility]. Fistula is not functioning at this time. Will order additional UF and HD as needed. Avoid nephrotoxins and renal dose all medications. INR is 1.7. IR will do Fistulagram today, order has been placed. (2) Anemia Current Visit: Yes Status: Chronic Goal Hgb isd 10-11. Hgb is 8.5 today. Qualifiers: Anemia type: other cause Other causes of anemia: chronic disease, other Qualified Code(s): D63.8 - Anemia in other chronic diseases classified elsewhere (3) Hyperkalemia Current Visit: Yes Status: Resolved Potassium is 4.4 today. Renal diet when not NPO. (4) Weakness Current Visit: Yes Status: Acute Per primary. (5) Calciphylaxis Current Visit: Yes Status: Chronic Will continue Sodium Thiosulfate with hemodialysis. Social Service arranging transfer to [facility]. Continue wound care. Subjective Principal diagnosis: generalized weakness Interval history: Pt seen and examined doing well. Denies SOB/nausea/vomiting/diarrhea. Objective - Vital Signs Vital signs: Vital Signs Temp Pulse Resp BP Pulse Ox 02/12/18 07:47 97.9 F 63 18 113/76 92 02/12/18 07:34 18 92 02/12/18 04:33 98.5 F 62 16 131/71 94 02/12/18 00:07 98.2 F 66 16 118/76 94 02/11/18 20:30 16 97 02/11/18 19:15 98.2 F 62 16 124/77 92 02/11/18 17:10 98.5 F 73 22 106/71 02/11/18 16:56 98.5 F 62 20 92/60 02/11/18 16:25 98.9 F 66 18 119/57 90 02/11/18 11:33 99.0 F 65 16 99/65 90 Intake and Output 02/11/18 02/12/18 02/12/18 23:59 07:59 15:59 Intake Total 830 / 830 240 / 240 Balance 830 / 830 240 / 240 Intake: IV Fluids 100 / 100 Zosyn 3.375 GM In 0.9 % Sodium 100 / 100 Chloride (Mini-Bag +) 100 ML @ 25 mls/hr IVPB Q12HR [facility] Rx#: [id number] Oral 230 / 230 240 / 240 Blood Product 500 / 500 Rbcs Leuko Poor As-1 Unit 500 / 500 [id number] Other: Meal Dinner Breakfast Percent of Meal Consumed 90% 100% Weight 81.6 kg Blood Glucose* 176 80 Patient Weight 02/12/18 23:59 Weight 81.6 kg - General Appearance General appearance: Present: well-developed, well-nourished EENT: Present: ATNC, hearing intact, vision intact Neck: Present: supple Respiratory: Present: clear Cardiology: Present: no edema, normal S1, normal S2 Dialysis Vascular Access: Venous Catheter (Temp line, DRSG C/D/I.) thrill: No bruit: No Gastrointestinal: Present: normoactive bowel sounds, no tenderness, no guarding Integumentary: Present: no rash, warm and dry Neurologic: Present: alert and oriented x3 Psychiatric: Present: mood/affect appropriate, cooperative - Lab 02/12/18 04:46 02/12/18 04:46 Most recent lab results ABG pH 7.40 pH Units (7.32-7.45) 02/06/18 14:00 ABG pCO2 30 mmHg (35-45) L 02/06/18 14:00 ABG pO2 85 mmHg (85-104) 02/06/18 14:00 ABG HCO3 18 mEq/L (21-27) L 02/06/18 14:00 ABG O2 Saturation 97 % (95-98) 02/06/18 14:00 Calcium 7.2 mg/dL (8.6-10.3) L 02/12/18 04:46 Phosphorus 5.1 mg/dL (2.7-4.5) H 02/06/18 07:52 Magnesium 2.0 mg/dL (1.6-2.6) 02/06/18 07:52 - VTE Reasons for not Prescribing Prophylaxis: Not indicated-Anticoagulated or INR therapeutic Documentation of Mechanical Device: Intermittent pneumatic compression device Consult Discharge Plan - Plan Referrals: Peter Vicente DO [Primary Care Provider] -
--- NOTE | 2018-02-12 10:53 | Gastroenterology Consult Note ---
<Cordelia Nagy - Last Filed: 02/12/18 10:49> Date of Encounter: 02/12/18 Time of Encounter: 10:00 - Assessment and plan (1) Anemia Current Visit: Yes Status: Chronic Assessment and plan: 43 year old female with ESRD who was admitted with sepsis from calciphalaxis abdominal and thigh wounds. She was started on eliquis 2 weeks ago. Stool was positive for occult blood and hgb dropped to 6.4. Will proceed with EGD/ Colonoscopy on Monday to rule out esophagitis, duodenitis, PUD, MW tear, and avm of the colon, she has HD TTS. Qualifiers: Anemia type: other cause Other causes of anemia: chronic disease, other Qualified Code(s): D63.8 - Anemia in other chronic diseases classified elsewhere (2) Calciphylaxis Current Visit: Yes Status: Chronic Assessment and plan: Sepsis is improved. Pt was started on eliquis but is currently on hold. - Time Spent With Patient Total time spent is greater than 50% in coordination of care (as documented) at patient's floor/unit and/or counseling patient: GI History of Present Illness - Data of Consult Patient: known to practice within the last 3 years Consult date: 02/12/18 Requesting Physician: John Singleton MD - Consult Narrative Reason for consult: anemia History of present illness: Ms. 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 She presented to the ED with generalized weakness. She was discharged on 01/19 after being managed for calciphylaxis, infected necrotic abdominal wound- Pseudomonas, proteus and E.Coli ESBL. She was discharged on Gentamicin to be given during HD but does not seem to follow up regularly with HD sessions. She was readmitted on 01/26 for malfunctioning HD access and was discharged on 01/27 after getting temporary HD access.No fever/chills, N/V, abdominal pain, chest pain, SOB, cough, or sputum production. Labs showed persistent leukocytosis with left shift, hyperkalemia, Cr 10.14, and troponin of 0.04. Hgb was 9.4 dropped to 6.4 and she was transfused 3 units prbcs is up to 8.5 this morning. She was seen by Dr Mejia on 01/16/18 and had an EGD which showed reflux esophagitis, chronic gastritis, non-bleeding gastric ulcers. She denies any bright red, black or tarry stools. She denies Gerd. She states she had some nausea but is improved now. She states she has had anemia for many years and had a bleeding ulcer in 2003. EGD 01/16/18 reflux esophagitis, chronic gastritis, non-bleeding gastric ulcers Anticoagulants: eliquis held last dose 02/08 Colonoscopy: in past unsure of date Past Med Surg Social Fam HX - Past Medical History Medical history: asthma, atrial fibrillation, diabetes, GI bleed, hyperlipidemia , hypertension, renal disease, thyroid disease Additional medical history: ANEMIA, BLEEDING ULCER,. KIDNEY DIALYSIS Psychiatric history: no psych history - Past Surgical History Surgical History: appendectomy, cholecystectomy, thyroidectomy, transplant ( kidney), other (endoscopy) Additional surgical history: KIDNEY TRANSPLANT 2007, TUBAL LIGATION, shunt danya - Social History Smoking Status: Never smoker Smokeless Tobacco Status: No Alcohol use: none Drug use: none - Family History Grandmother History Unknown: Yes Review of Systems: GI: as per [facility] GENERAL: denies fever, has some chills EYES: denies yellow discoloration ENT: denies pain with swallowing or difficulty swallowing CARDIO: denies chest pain, palpitations RESP: Shortness of breath with exertion : denies change in color of urine NEURO: chronic weakness HEME: Denies any bruising MS: chronic back and joint pain DERM: chronic wounds to her abdomen and thighs PSYCH: history of anxiety and depression - Constitutional Vitals: Temp Pulse Resp BP Pulse Ox 97.9 F 63 18 113/76 92 02/12/18 07:47 02/12/18 07:47 02/12/18 07:47 02/12/18 07:47 02/12/18 07:47 Exam: CONSTITUTIONAL:~alert, no acute distress.~HEAD:~normocephalic.~EYES:~no jaundice.~NECK:~no obvious swelling.~HEART:~regular rate and rhythm, no murmurs. ~LUNGS:~bilateral fair air entry.~ABDOMEN:~non distended, soft, non tender, large abdominal dressings noted clean and dry, difficult to assess abdomen for masses.~RECTAL EXAM:~Deferred.~EXTREMITIES:~no clubbing, cyanosis, trace BLE edema.~SKIN:~pallor noted, no stigmata of chronic liver disease.~NEUROLOGIC:~no obvious focal defect.~~~~ Results - Labs CBC & Chem 7: 02/12/18 04:46 02/12/18 04:46 Labs: Last Result Calcium 7.2 mg/dL (8.6-10.3) L 02/12/18 04:46 Iron 27 mcg/dL (50-170) L 02/08/18 09:14 % Saturation TNP 02/08/18 09:14 Transferrin < 75 mg/dL (203-362) L 02/08/18 09:14 Troponin I 0.04 ng/mL (< 0.04) H* 02/06/18 13:43 Vitamin B12 > 1500 pg/mL (250-1100) H 02/08/18 09:14 Folate 9.5 ng/mL (3.0-16.0) 02/08/18 09:14 Stool Occult Blood Positive (Negative) A 02/09/18 15:41 Entire Visit Hgb 8.5 g/dL (11.5-15.4) L D 02/12/18 04:46 Hct 25.8 % (35.3-44.9) L 02/12/18 04:46 PT 18.7 Seconds (9.4-12.1) H 02/12/18 06:15 Total Bilirubin 0.7 mg/dL (0.3-1.0) 02/06/18 07:52 AST 23 Units/L (13-39) 02/06/18 07:52 ALT 13 Units/L (7-52) 02/06/18 07:52 Ammonia 32 mcmol/L (16-53) 02/07/18 15:11 Folate 9.5 ng/mL (3.0-16.0) 02/08/18 09:14 - ABG ABG results: ABG ABG pH 7.40 pH Units (7.32-7.45) 02/06/18 14:00 ABG pCO2 30 mmHg (35-45) L 02/06/18 14:00 ABG pO2 85 mmHg (85-104) 02/06/18 14:00 ABG O2 Saturation 97 % (95-98) 02/06/18 14:00 PT/INR, D-dimer PT 18.7 Seconds (9.4-12.1) H 02/12/18 06:15 Consult Discharge Plan - Plan Referrals: Peter Vicente DO [Primary Care Provider] - <Marizol Strong - Last Filed: 02/12/18 17:28> Date of Encounter: 02/12/18 Time of Encounter: 14:00 - Time Spent With Patient Total time spent is greater than 50% in coordination of care (as documented) at patient's floor/unit and/or counseling patient: GI History of Present Illness - Data of Consult Requesting Physician: John Snigleton MD - Consult Narrative History of present illness: Ms. Alexis is a 43 year old female - Constitutional Vitals: Temp Pulse Resp BP Pulse Ox 97.9 F 62 17 104/66 92 02/12/18 16:43 02/12/18 16:43 02/12/18 16:43 02/12/18 16:43 02/12/18 16:43 Results - Labs CBC & Chem 7: 02/12/18 04:46 02/12/18 04:46 Labs: Last Result Calcium 7.2 mg/dL (8.6-10.3) L 02/12/18 04:46 Iron 27 mcg/dL (50-170) L 02/08/18 09:14 % Saturation TNP 02/08/18 09:14 Transferrin < 75 mg/dL (203-362) L 02/08/18 09:14 Troponin I 0.04 ng/mL (< 0.04) H* 02/06/18 13:43 Vitamin B12 > 1500 pg/mL (250-1100) H 02/08/18 09:14 Folate 9.5 ng/mL (3.0-16.0) 02/08/18 09:14 Stool Occult Blood Positive (Negative) A 02/09/18 15:41 Entire Visit Hgb 8.5 g/dL (11.5-15.4) L D 02/12/18 04:46 Hct 25.8 % (35.3-44.9) L 02/12/18 04:46 PT 18.7 Seconds (9.4-12.1) H 02/12/18 06:15 Total Bilirubin 0.7 mg/dL (0.3-1.0) 02/06/18 07:52 AST 23 Units/L (13-39) 02/06/18 07:52 ALT 13 Units/L (7-52) 02/06/18 07:52 Ammonia 32 mcmol/L (16-53) 02/07/18 15:11 Folate 9.5 ng/mL (3.0-16.0) 02/08/18 09:14 - ABG ABG results: ABG ABG pH 7.40 pH Units (7.32-7.45) 02/06/18 14:00 ABG pCO2 30 mmHg (35-45) L 02/06/18 14:00 ABG pO2 85 mmHg (85-104) 02/06/18 14:00 ABG O2 Saturation 97 % (95-98) 02/06/18 14:00 PT/INR, D-dimer PT 18.7 Seconds (9.4-12.1) H 02/12/18 06:15 - Impressions Impressions AV Shunt Angiogram 02/12/18 00:00 IMPRESSION: The left upper extremity AV fistula is patent, and appears adequate for use for hemodialysis. No intervention is necessary at this time. D/ / 02/12/2018 15:03:33 Carlos Diamond MD / ariane Interpreting Provider: Carlos Diamond MD Guidance Needle Placement Ultrasound 02/12/18 00:00 IMPRESSION: The left upper extremity AV fistula is patent, and appears adequate for use for hemodialysis. No intervention is necessary at this time. D/ : / 02/12/2018 15:03:33 Carlos Diamond MD / ariane Interpreting Provider: Carlos Diamond MD - Attending Attestation I have personally performed a face to face evaluation on this patient. I have reviewed and agree with the care plan. History and Exam by me shows: Patient seen. Denies any active issues. Patient with multiple medical problem including and second disease on hemodialysis now with anemia. Most probably anemia is due to chronic kidney disease but rule out GI loses causes. Rec:: EGD colonoscopy on Monday
[2018-02-12] MEDS ORDERED: 0.9 % Sodium Chloride 500 ML ONE ×2 (12:01→12:16)
--- NOTE | 2018-02-12 12:47 | IR Procedure Note ---
Date of procedure: 02/12/18 Consent Obtained: Verbal consent, Written consent Timeout: Correct patient and procedure verified, Correct site verified, Time out performed, Skin prep completed Local anesthetic: Lidocaine 1% Indications: Malfunctioning LUE AV fistula Procedure Performed: AV fistulograms Was there an production administrative assistant present: No Site/Technique: Left upper extremity AV fistulograms performed Results/Findings: The fistula is patent and functional Estimated blood loss (cc): 4 Complications: None; Tolerated procedure well Post Procedure Treatment Plan: May use the fistula for dialysis Specimen: None
--- NOTE | 2018-02-12 14:23 | Infectious Disease Progress No ---
Date of Encounter: 02/12/18 Time of Encounter: 14:21 - Assessment and Plan (1) Sepsis Current Visit: Yes Status: Acute The patient had fever and leukocytosis with some hypotension. Likely secondary to multiple wound infections. Improved. Afebrile 48 hours. White blood cell count is trending down. Hypotension has resolved. Blood cultures drawn 02/06/18 are negative 2 sets. Repeat blood cultures drawn 02/09/18 are no growth to date [address] of the abdomen and pelvis was negative for acute intra-abdominal abnormality. CT of the chest showed redemonstration of the thick-walled fluid collection in the left lower lobe. Qualifiers: Sepsis type: sepsis due to unspecified organism Qualified Code(s): A41.9 - Sepsis, unspecified organism (2) Wound infection Current Visit: Yes Status: Acute Location: Abdominal wounds. Likely multifactorial: poorly controlled DM, obesity, non-compliance with wound care and antibiotics. Causative organism unclear, but likely polymicrobial. Previous wound culture positive for Pseudomonas stutzeri, E. coli ESBL, and Proteus. Failed to get IV Gentamicin since she wasn't going to HD. Clinically, there is marked regression in the patient's wounds since I saw her last. The wounds are necrotic and foul-smelling. She is status post bedside debridement per the surgery team yesterday. Per the surgery team, they feel that the patient's wounds can be managed her and do not require a plastic surgeon evaluation. CT of the abdomen and pelvis does not show any underling abscess. Wound cultures obtained and are pending. Gram stain shows 2 different gram- negative rods. Final ID and susceptibilities are pending.. Gen. surgery consulted to assist with dressing recommendations. They have signed off the case. They do not recommend transfer to a tertiary care facility for plastic surgery evaluation. Continue Vancomycin IV. Pharmacy to dose. Goal trough ~15. Continue Zosyn 3.375 grams IV Q12H. Duration of treatment depends on the clinical picture. Dose-adjust antibiotics for HD. Will ask pharmacy to help with dosing her antibiotics. (3) Hyperkalemia Current Visit: Yes Status: Resolved Resolved Management per the nephrology team. (4) Pleural effusion Current Visit: Yes Status: Acute CT chest showed bandlike reticular densities most pronounced in the left lung base suggestive of atelectasis with generalizes interstitial prominence with background of hazy ground-glass attenuation suggestive of pulmonary edema. There was a trace left pleural effusion with a loculated pleural fluid within the left major fissure measuring about 2.5x2.5x3.5cm. Recommend pulmonology to evaluate for possible loculated pleural fluid. (5) Weakness Current Visit: Yes Status: Acute Likely secondary to extensive wound infections. Blood cultures are NGTD x 2 sets. Improved. Consider PT/OT to evaluate. Continue supportive care. (6) Calciphylaxis Current Visit: Yes Status: Chronic Previous skin biopsies negative, but clinical picture consistent with calciphylaxis and the patient reported improvement in her symptoms when she was receiving treatment. Wound care per the general surgery team. Continue antibiotics as above. Sodium thiosulfate per nephrology. (7) ESRD (end stage renal disease) Current Visit: Yes Status: Chronic Nephrology consulted and following. (8) Anemia in chronic kidney disease (CKD) Current Visit: Yes Status: Chronic Hgb 8.5 this morning. Fecal blood test positive. GIs and consult and plans for EGD and colonoscopy on Monday. Further workup and management per the primary and nephrology teams. Qualifiers: Chronic kidney disease stage: on chronic dialysis Qualified Code(s): N18.6 - End stage renal disease; D63.1 - Anemia in chronic kidney disease; Z99.2 - Dependence on renal dialysis (9) Afib Current Visit: Yes Status: Chronic Qualifiers: Atrial fibrillation type: paroxysmal Qualified Code(s): I48.0 - Paroxysmal atrial fibrillation - Subjective Interval history: Patient seen and examined. No acute events noted overnight. Patient states that overall she feels a little better today. Denies fevers, chills, or rigors. Denies chest pain, shortness of breath, or cough. Denies nausea, vomiting, diarrhea, or constipation. She does report chronically loose stools. She states her appetite is better and she was able to eat some breakfast today. Reports pain at the site of the ulcers. Denies oral thrush. Infect Dis PN-Objective Data - Labs CBC & Chem 7: 02/14/18 07:25 02/14/18 07:25 Labs: Laboratory Results - last 24 hr 02/10/18 02/11/18 02/11/18 20:33 06:55 11:04 WBC RBC Hgb Hct MCV MCH MCHC RDW Plt Count MPV PT INR Sodium Potassium Chloride Carbon Dioxide BUN Creatinine Est GFR ( Amer) Est GFR (Non-Af Amer) BUN/Creatinine Ratio Glucose POC Glucose 144 H 105 H 105 H Calculated Osmolality Calcium Specimen Rejected Blood Type Antibody Screen Crossmatch 02/11/18 02/11/18 02/11/18 15:30 15:50 16:32 WBC RBC Hgb Hct MCV MCH MCHC RDW Plt Count MPV PT INR Sodium Potassium Chloride Carbon Dioxide BUN Creatinine Est GFR ( Amer) Est GFR (Non-Af Amer) BUN/Creatinine Ratio Glucose POC Glucose 165 H Calculated Osmolality Calcium Specimen Rejected Labelling Blood Type B POSITIVE Antibody Screen NEGATIVE Crossmatch See Detail 02/11/18 02/12/18 02/12/18 21:09 04:46 04:46 WBC 14.5 H RBC 2.73 L Hgb 8.5 L D Hct 25.8 L MCV 94.5 MCH 31.1 MCHC 32.9 RDW 17.7 H Plt Count 121 L MPV 11.1 PT INR Sodium 139 Potassium 4.4 Chloride 93 L Carbon Dioxide 18 L BUN 30 H Creatinine 5.40 H Est GFR ( Amer) 10 L Est GFR (Non-Af Amer) 9 L BUN/Creatinine Ratio 6 Glucose 98 POC Glucose 176 H Calculated Osmolality 294 Calcium 7.2 L Specimen Rejected Blood Type Antibody Screen Crossmatch 02/12/18 06:15 WBC RBC Hgb Hct MCV MCH MCHC RDW Plt Count MPV PT 18.7 H INR 1.7 Sodium Potassium Chloride Carbon Dioxide BUN Creatinine Est GFR ( Amer) Est GFR (Non-Af Amer) BUN/Creatinine Ratio Glucose POC Glucose Calculated Osmolality Calcium Specimen Rejected Blood Type Antibody Screen Crossmatch Cultures: Cultures 02/09/18 16:30 Wound Culture - Preliminary Abdomen Gram Negative Deric Gram Negative Deric#2 02/09/18 11:37 Blood Culture - Preliminary Peripheral Venipuncture Culture is incubating and being continuously monitored for growth. Final report to follow. 02/09/18 11:37 Blood Culture - Preliminary Peripheral Venipuncture Culture is incubating and being continuously monitored for growth. Final report to follow. Serology 02/09/18 Range/Units 15:41 Stool Occult Blood Positive A (Negative) Exam - Constitutional Vitals: Temp Pulse Resp BP Pulse Ox 98.5 F 63 16 102/61 93 02/12/18 11:51 02/12/18 11:51 02/12/18 11:51 02/12/18 11:51 02/12/18 11:51 General appearance: cooperative, morbidly obese, no acute distress - Head Head exam: Present: atraumatic, normal inspection, normocephalic - Eye Eye exam: Present: EOMI, normal appearance, PERRL Pupils: Present: normal accommodation - ENT ENT exam: Present: mucous membranes moist - Neck Neck exam: Present: normal inspection Additional comments: Temporary dialysis catheter noted to the right neck with transparent dressing clean, dry, and intact. No erythema, warmth, tenderness, or drainage at the insertion site. - Respiratory Respiratory exam: Present: CTAB. Absent: rales, respiratory distress, rhonchi, wheezes - Cardiovascular Cardiovascular exam: Present: RRR, +S1, +S2 - GI/Abdominal GI/Abdominal exam: Present: distended (Obese), normal bowel sounds, soft. Absent: tenderness Additional comments: Multiple abdominal ulcerations with dressings clean, dry, and intact. - Extremities Exam Extremities exam: Present: pedal edema (1+ bilateral lower extremities.), tenderness (Ulcerations noted to the bilateral upper thighs.). Absent: joint swelling Additional comments: Fistula noted to the upper part of the left arm that is negative bruit, positive thrill. - Neurological Exam Neurological exam: Present: alert, oriented X3, no focal deficits - Psychiatric Psychiatric exam: Present: normal affect, normal mood - Skin Skin exam: Present: dry, intact, normal color, warm - VTE Reasons for not Prescribing Prophylaxis: Not indicated-Anticoagulated or INR therapeutic Documentation of Mechanical Device: Intermittent pneumatic compression device Consult Discharge Plan - Plan Referrals: Peter Vicente DO [Primary Care Provider] - - Attending Attestation I examined this patient and my medical decision-making was reviewed with the Resident Physician. I agree with the documented findings, disposition and treatment plan as described except to the extent set forth below.
[2018-02-12] MEDS: *HR* HYDROcodone/Acet 10/325 mg TABLET PO PRN (15:28)
--- NOTE | 2018-02-12 17:18 | Internal Med Progress Note ---
Hospitalist Progress Note - Encounter Date of Encounter: 02/12/18 Time of Encounter: 17:16 - Subjective Interval History: Pt was seen and examined at bed side. She did have Left arm AV fistula fistulagram done..which seems to be working well No events overnight She denied any CP / SOB - Exam Vitals: Temp Pulse Resp BP Pulse Ox 97.9 F 62 17 104/66 92 02/12/18 16:43 02/12/18 16:43 02/12/18 16:43 02/12/18 16:43 02/12/18 16:43 Exam: Gen: A, A, O x 3 Chest : Diminished BS b/l, no crackles, no rales, no wheezing Heart: S1S2+ RRR No murmurs Abd: Soft, NT, distended, multiple wounds over lower abdomen region Ext: open wound over Left thigh and Rt thigh as well as on Rt leg - Assessment and Plan (1) Sepsis Current Visit: Yes Status: Acute Assessment and Plan: Due to multiple calciphylaxis related wound infections wound cx - G-ve rods cont broad spec abx Zosyn and Vanc blood cx - no growth so far (2) Wound infection Current Visit: Yes Status: Acute Assessment and Plan: Continue IV antibiotics per infectious disease recommendations (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 Assessment and Plan: Poor overall prognosis due to calciphylaxis. Patient receiving sodium thiosulfate with hemodialysis. (4) ESRD on hemodialysis Current Visit: Yes Status: Chronic Assessment and Plan: since fistulagram went well, possible HD In AM through AV fistula (5) Anemia in chronic kidney disease (CKD) Current Visit: Yes Status: Chronic Assessment and Plan: Hb improved to 8.5 s/p 3 U PRBC cont close monitoring She has previously had upper GI endoscopy which showed chronic gastritis. Patient does have iron deficiency anemia. Will cont Iron supplements (6) DVT prophylaxis Current Visit: Yes Status: Acute Assessment and Plan: will resume eliquis now once get an approval from Nephro (7) Afib Current Visit: Yes Status: Chronic Assessment and Plan: Heart rate is better controlled today Metoprolol dosage has been increased to 25 mg by mouth twice a day will resume eliquis if Nephro clears (8) Noncompliance with renal dialysis Current Visit: Yes Status: Acute Assessment and Plan: Patient agrees to placement to skilled rehabilitation. Will arrange for placement at time of discharge. - Time Spent with Patient Total time spent is greater than 50% in coordination of care (as documented) at patient's floor/unit and/or counseling patient: Internal Medicine: Result - Labs CBC & Chem 7: 02/12/18 04:46 02/12/18 04:46 Labs: Short CBC 02/12/18 Range/Units 04:46 WBC 14.5 H (4.3-11.1) K/mcL Hgb 8.5 L D (11.5-15.4) g/dL Hct 25.8 L (35.3-44.9) % Plt Count 121 L (140-400) K/mcL BMP 02/12/18 04:46 Sodium 139 Potassium 4.4 Chloride 93 L Carbon Dioxide 18 L BUN 30 H Creatinine 5.40 H Glucose 98 Calcium 7.2 L - ABG Interpretation ABG results: ABG ABG pH 7.40 pH Units (7.32-7.45) 02/06/18 14:00 ABG pCO2 30 mmHg (35-45) L 02/06/18 14:00 ABG pO2 85 mmHg (85-104) 02/06/18 14:00 ABG O2 Saturation 97 % (95-98) 02/06/18 14:00 PT/INR, D-dimer PT 18.7 Seconds (9.4-12.1) H 02/12/18 06:15 - Impressions Impressions AV Shunt Angiogram 02/12/18 00:00 IMPRESSION: The left upper extremity AV fistula is patent, and appears adequate for use for hemodialysis. No intervention is necessary at this time. D/ / 02/12/2018 15:03:33 Carlos Diamond MD / ariane Interpreting Provider: Carlos Diamond MD Guidance Needle Placement Ultrasound 02/12/18 00:00 IMPRESSION: The left upper extremity AV fistula is patent, and appears adequate for use for hemodialysis. No intervention is necessary at this time. D/ / 02/12/2018 15:03:33 Carlos Diamond MD / ariane Interpreting Provider: Carlos Diamond MD - VTE Reasons for not Prescribing Prophylaxis: Not indicated-Anticoagulated or INR therapeutic Documentation of Mechanical Device: Intermittent pneumatic compression device Consult Discharge Plan - Plan Referrals: Peter Vicente DO [Primary Care Provider] - (1) Sepsis Qualifiers: Sepsis type: sepsis due to unspecified organism Qualified Code(s): A41.9 - Sepsis, unspecified organism (5) Anemia in chronic kidney disease (CKD) Qualifiers: Chronic kidney disease stage: on chronic dialysis Qualified Code(s): N18.6 - End stage renal disease; D63.1 - Anemia in chronic kidney disease; Z99.2 - Dependence on renal dialysis (7) Afib Qualifiers: Atrial fibrillation type: paroxysmal Qualified Code(s): I48.0 - Paroxysmal atrial fibrillation
--- NOTE | 2018-02-12 17:46 | Electrocardiograph Report ---
[address] [place], [place] [address] Test Date: 2018-02-10 Pat Name: Malathi River Department: 112 Room: 2A63 Gender: F [employer]: : [id number] Requested By: Wyatt Villarreal Order Number: [id number] Reading MD: Thea Kenney Measurements Intervals [place] Rate: 85 P: 48 [place]: 223 QRS: 39 QRSD: 96 T: 220 QT: 388 QTc: 431 Interpretive Statements SINUS RHYTHM WITH FIRST DEGREE AV BLOCK WITH SUPRAVENTRICULAR PREMATURE COMPLEXES ANTEROSEPTAL MYOCARDIAL INFARCTION, OF INDETERMINATE AGE MODERATE T-WAVE ABNORMALITY, CONSIDER INFERIOR ISCHEMIA Electronically Signed On 02-12-2018 17:45:13 EDT by hTea Kenney
[2018-02-13] MEDS: Gentamicin Oint 15 GM TUBE TP SCH ×2 (01:19→12:58)
[2018-02-13] MEDS: *HR* HYDROcodone/Acet 10/325 mg TABLET PO PRN ×3 (01:19→23:38)
[2018-02-13 04:27] LABS: Basophils % 0.1 %; Eosinophils % 0.1 %; Hematocrit 26.7 % (35.3-44.9); Hematocrit 26.9 % (35.3-44.9); Hemoglobin 8.9 g/dL (11.5-15.4); Hemoglobin 9.1 g/dL (11.5-15.4); Immature Granulocytes % 3.2 % (0-4); Lymphocytes # 1.2 K/mcL (0.6-4.6); Lymphocytes % 8.1 %; Mean Corpuscular HGB Conc 33.3 g/dL (31.6-35.5); Mean Corpuscular HGB Conc 33.8 g/dL (31.6-35.5); Mean Corpuscular Hemoglobin 31.9 pg (28.0-33.3); Mean Corpuscular Hemoglobin 32.4 pg (28.0-33.3); Mean Corpuscular Volume 95.7 fL (83.0-100.0); Mean Platelet Volume 11.1 fL (9.4-12.4); Mean Platelet Volume 11.3 fL (9.4-12.4); Monocytes # 1.7 K/mcL (0.0-1.3); Monocytes % 11.7 %; Neutrophils # 10.9 K/mcL (1.6-8.9); Platelet Count 147 K/mcL (140-400); Platelet Count 150 K/mcL (140-400); Red Blood Count 2.79 M/mcL (3.82-4.97); Red Blood Count 2.81 M/mcL (3.82-4.97); Red Cell Distribution Width 17.5 % (11.5-14.5); Red Cell Distribution Width 17.7 % (11.5-14.5); Segmented Neutrophils % 76.8 %
[2018-02-13 04:41] LABS: Calcium 7.1 mg/dL (8.6-10.3); Magnesium 2.2 mg/dL (1.6-2.6)
[2018-02-13] MEDS: Piperacillin/Tazobactam 3.375 GM in 0.9 % Sodium Chloride Mini Bag 100 ML IVPB SCH (06:12)
[2018-02-13] MEDS ORDERED: 0.9 % Sodium Chloride 250 ML IVC PRN (07:04)
[2018-02-13] MEDS: Budesonide/Formoterol 160/4.5 MDI IH SCH ×2 (07:42→20:06)
[2018-02-13] MEDS ORDERED: Aminoglycoside Consult 1 EACH MC ONE (08:10)
--- NOTE | 2018-02-13 09:33 | Nephrology Progress Note ---
Date of Encounter: 02/13/18 Time of Encounter: 09:31 - Assessment and Plan (1) ESRD (end stage renal disease) on dialysis Current Visit: Yes Status: Acute Current regimen is TTS at [facility]. Fistulagram completed yesterday and was reported to have no issues. However, the fistula would not run today. IR order placed for Tunneled Line for tomorrow. NPO at midnight. Will order additional UF and HD as needed. Avoid nephrotoxins and renal dose all medications. Recommend holding Eliquis until Tunneled Line. (2) Anemia Current Visit: Yes Status: Chronic Goal Hgb isd 10-11. Hgb is 9.1 today. Qualifiers: Anemia type: other cause Other causes of anemia: chronic disease, other Qualified Code(s): D63.8 - Anemia in other chronic diseases classified elsewhere (3) Hyperkalemia Current Visit: Yes Status: Resolved Potassium is 5, will correct with HD. Renal diet when not NPO. (4) Weakness Current Visit: Yes Status: Acute Per primary. (5) Calciphylaxis Current Visit: Yes Status: Chronic Will continue Sodium Thiosulfate with hemodialysis. Social Service arranging transfer to [facility]. Continue wound care. Subjective Principal diagnosis: generalized weakness Interval history: Pt seen and examined during HD, doing well. Denies SOB/nausea/vomiting/diarrhea. Objective - Vital Signs Vital signs: Vital Signs Temp Pulse Resp BP Pulse Ox 02/13/18 08:45 97.8 F 15 131/78 02/13/18 07:44 18 91 02/13/18 07:41 97.7 F 63 18 111/66 94 02/13/18 03:43 98.1 F 63 16 122/72 90 02/12/18 23:47 98.7 F 65 16 120/71 94 02/12/18 20:01 16 91 02/12/18 19:20 98.8 F 63 17 131/78 90 02/12/18 16:43 97.9 F 62 17 104/66 92 02/12/18 15:50 106/67 02/12/18 11:51 98.5 F 63 16 102/61 93 Intake and Output 02/12/18 02/13/18 02/13/18 23:59 07:59 15:59 Intake Total 440 / 440 720 / 720 Balance 440 / 440 720 / 720 Intake: IV Fluids 200 / 200 Zosyn 3.375 GM In 0.9 % Sodium 100 / 100 Chloride (Mini-Bag +) 100 ML @ 25 mls/hr IVPB Q12HR [facility] Rx#: [id number] Sodium Thiosulfate 25 GM In 100 / 100 Empty Bag 1 Each @ 100 mls/hr IVPB TuThSa@1800 [facility] Rx#: [id number] Oral 240 / 240 120 / 120 Intake, Rinseback and Flushes 600 / 600 Other: Meal Dinner Breakfast Percent of Meal Consumed 10% 0% Weight 82.3 kg Blood Glucose* 142 71 Hemodialysis Net Fluid Removed 0 (mL) - General Appearance General appearance: Present: well-developed, well-nourished EENT: Present: ATNC Neck: Present: supple Respiratory: Present: clear Cardiology: Present: no edema, normal S1, normal S2 Dialysis Vascular Access: Arteriovenous Fistula (Temp line drsg C/D/I.) thrill: Yes bruit: Yes Gastrointestinal: Present: normoactive bowel sounds, no tenderness, no guarding Integumentary: Present: no rash, warm and dry Neurologic: Present: alert and oriented x3 Psychiatric: Present: mood/affect appropriate, cooperative - Lab 02/13/18 04:05 02/13/18 04:05 Most recent lab results ABG pH 7.40 pH Units (7.32-7.45) 02/06/18 14:00 ABG pCO2 30 mmHg (35-45) L 02/06/18 14:00 ABG pO2 85 mmHg (85-104) 02/06/18 14:00 ABG HCO3 18 mEq/L (21-27) L 02/06/18 14:00 ABG O2 Saturation 97 % (95-98) 02/06/18 14:00 Calcium 7.1 mg/dL (8.6-10.3) L 02/13/18 04:05 Phosphorus 5.1 mg/dL (2.7-4.5) H 02/06/18 07:52 Magnesium 2.2 mg/dL (1.6-2.6) 02/13/18 04:05 - VTE Reasons for not Prescribing Prophylaxis: Not indicated-Anticoagulated or INR therapeutic Documentation of Mechanical Device: Intermittent pneumatic compression device Consult Discharge Plan - Plan Referrals: Peter Vicente DO [Primary Care Provider] -
[2018-02-13] MEDS: Insulin LISPRO 300 UNITS/3 ML VIAL SQ SCH ×4 (10:53→23:46)
[2018-02-13] MEDS: Acetaminophen 325 MG TABLET PO PRN (11:32)
[2018-02-13] MEDS: predniSONE 10 MG TABLET PO SCH (12:57)
[2018-02-13] MEDS: Metoprolol XL (24 HR) Succ 25 MG TAB.ER.24H PO SCH ×2 (12:57→22:57)
[2018-02-13] MEDS: amLODIPine 5 MG TABLET PO SCH ×2 (12:57→22:57)
[2018-02-13] MEDS: Folic Acid 1 MG TABLET PO SCH (12:57)
[2018-02-13] MEDS: hydrALAZINE 25 MG TABLET PO SCH ×2 (12:57→22:56)
[2018-02-13] MEDS: *HR* Amiodarone 200 MG TABLET PO SCH (12:58)
[2018-02-13] MEDS ORDERED: SODIUM CHLORIDE/NAHCO3/KCL/PEG 4,000 ML SOLN.RECON PO ONE ×2 (14:00→17:00)
[2018-02-13] MEDS: Meropenem 500 MG in Water for inj. (sterile) 20 ML 5 ML IVP SCH (14:35)
--- NOTE | 2018-02-13 16:02 | Infectious Disease Progress No ---
Date of Encounter: 02/13/18 Time of Encounter: 16:00 - Assessment and Plan (1) Sepsis Current Visit: Yes Status: Acute The patient had fever and leukocytosis with some hypotension. Likely secondary to multiple wound infections. Improved. Afebrile. White blood cell count is trending down. Hypotension has resolved. Blood cultures drawn 02/06/18 are negative 2 sets. Repeat blood cultures drawn 02/09/18 are no growth to date [address] of the abdomen and pelvis was negative for acute intra-abdominal abnormality. CT of the chest showed redemonstration of the thick-walled fluid collection in the left lower lobe. Qualifiers: Sepsis type: sepsis due to unspecified organism Qualified Code(s): A41.9 - Sepsis, unspecified organism (2) Wound infection Current Visit: Yes Status: Acute Location: Abdominal wounds. Likely multifactorial: poorly controlled DM, obesity, non-compliance with wound care and antibiotics. Causative organism unclear, but likely polymicrobial. Previous wound culture positive for Pseudomonas stutzeri, E. coli ESBL, and Proteus. Failed to get IV Gentamicin since she wasn't going to HD. Clinically, there was marked regression in the patient's wounds since I saw her last. The wounds were necrotic and foul-smelling. She is status post bedside debridement per the surgery team. Per the surgery team, they feel that the patient's wounds can be managed her and do not require a plastic surgeon evaluation. CT of the abdomen and pelvis does not show any underling abscess. Wound cultures obtained and are growing E. aerogenes (R to Zosyn) and P. mirabilis (melgoza-sensitive) as well as a third unidentified GNR. Previous wound cultures grew P. stutzeri, P. mirabilis, and E. coli ESBL. Gen. surgery consulted to assist with dressing recommendations. They have signed off the case. They do not recommend transfer to a tertiary care facility for plastic surgery evaluation. Discontinue Vancomycin since no GPC/MRSA noted on cultures. Discontinue Zosyn. Start Meropenem 1 gram IV daily which will cover all known/previous causative organisms as well as previous E. coli ESBL and anaerobes. Duration of treatment depends on the clinical picture. Dose-adjust antibiotics for HD. Will ask pharmacy to help with dosing her antibiotics. (3) Hyperkalemia Current Visit: Yes Status: Resolved Resolved Management per the nephrology team. (4) Pleural effusion Current Visit: Yes Status: Acute CT chest showed bandlike reticular densities most pronounced in the left lung base suggestive of atelectasis with generalizes interstitial prominence with background of hazy ground-glass attenuation suggestive of pulmonary edema. There was a trace left pleural effusion with a loculated pleural fluid within the left major fissure measuring about 2.5x2.5x3.5cm. Recommend pulmonology to evaluate for possible loculated pleural fluid. (5) Weakness Current Visit: Yes Status: Acute Likely secondary to extensive wound infections. Blood cultures are NGTD x 2 sets. Improved. Consider PT/OT to evaluate. Continue supportive care. (6) Calciphylaxis Current Visit: No Status: Chronic Previous skin biopsies negative, but clinical picture consistent with calciphylaxis and the patient reported improvement in her symptoms when she was receiving treatment. Wound care per the general surgery team. Continue antibiotics as above. Sodium thiosulfate per nephrology. (7) ESRD (end stage renal disease) Current Visit: No Status: Chronic Nephrology consulted and following. (8) Anemia in chronic kidney disease (CKD) Current Visit: Yes Status: Chronic Hgb 8.5 this morning. Fecal blood test positive. GIs and consult and plans for EGD and colonoscopy on Monday. Further workup and management per the primary and nephrology teams. Qualifiers: Chronic kidney disease stage: on chronic dialysis Qualified Code(s): N18.6 - End stage renal disease; D63.1 - Anemia in chronic kidney disease; Z99.2 - Dependence on renal dialysis (9) Afib Current Visit: Yes Status: Chronic Qualifiers: Atrial fibrillation type: paroxysmal Qualified Code(s): I48.0 - Paroxysmal atrial fibrillation - Subjective Interval history: Patient seen and examined. No acute events noted overnight. Patient states that overall she feels a little better today. Status post HD this morning. Having diarrhea due to bowel prep for EGD/C-scope tomorrow. Rectal tube placed. Denies fevers, chills, or rigors. Denies chest pain, shortness of breath, or cough. Denies nausea, vomiting, or constipation. She states her appetite is better and she was able to eat some breakfast today. Reports pain at the site of the ulcers. Denies oral thrush. Infect Dis PN-Objective Data - Labs CBC & Chem 7: 02/13/18 04:05 02/13/18 04:05 Labs: Laboratory Results - last 24 hr 02/12/18 02/12/18 02/12/18 07:43 11:37 12:55 WBC RBC Hgb Hct MCV MCH MCHC RDW Plt Count MPV Immature Gran % Seg Neutrophils % Lymphocytes % Monocytes % Eosinophils % Basophils % Neutrophils # Lymphocytes # Monocytes # Eosinophils # Basophils # Sodium Potassium Chloride Carbon Dioxide BUN Creatinine Est GFR ( Amer) Est GFR (Non-Af Amer) BUN/Creatinine Ratio Glucose POC Glucose 80 89 87 Calculated Osmolality Calcium Magnesium Random Vancomycin 02/12/18 02/13/18 02/13/18 16:41 04:05 04:05 WBC 13.9 H RBC 2.79 L Hgb 8.9 L Hct 26.7 L MCV 95.7 MCH 31.9 MCHC 33.3 RDW 17.7 H Plt Count 147 MPV 11.3 Immature Gran % Seg Neutrophils % Lymphocytes % Monocytes % Eosinophils % Basophils % Neutrophils # Lymphocytes # Monocytes # Eosinophils # Basophils # Sodium Potassium Chloride Carbon Dioxide BUN Creatinine Est GFR ( Amer) Est GFR (Non-Af Amer) BUN/Creatinine Ratio Glucose POC Glucose 145 H Calculated Osmolality Calcium Magnesium Random Vancomycin 23 02/13/18 02/13/18 04:05 04:05 WBC 14.2 H RBC 2.81 L Hgb 9.1 L Hct 26.9 L MCV 95.7 MCH 32.4 MCHC 33.8 RDW 17.5 H Plt Count 150 MPV 11.1 Immature Gran % 3.2 Seg Neutrophils % 76.8 Lymphocytes % 8.1 Monocytes % 11.7 Eosinophils % 0.1 Basophils % 0.1 Neutrophils # 10.9 H Lymphocytes # 1.2 Monocytes # 1.7 H Eosinophils # 0.0 Basophils # 0.0 Sodium 137 Potassium 5.0 Chloride 93 L Carbon Dioxide 16 L BUN 43 H Creatinine 6.40 H Est GFR ( Amer) 9 L Est GFR (Non-Af Amer) 7 L BUN/Creatinine Ratio 7 Glucose 91 POC Glucose Calculated Osmolality 294 Calcium 7.1 L Magnesium 2.2 Random Vancomycin Cultures: Cultures 02/09/18 16:30 Wound Culture - Preliminary Abdomen Gram Negative Deric Enterobacter aerogenes Proteus mirabilis 02/09/18 11:37 Blood Culture - Preliminary Peripheral Venipuncture Culture is incubating and being continuously monitored for growth. Final report to follow. 02/09/18 11:37 Blood Culture - Preliminary Peripheral Venipuncture Culture is incubating and being continuously monitored for growth. Final report to follow. Serology 02/09/18 Range/Units 15:41 Stool Occult Blood Positive A (Negative) Exam - Constitutional Vitals: Temp Pulse Resp BP Pulse Ox 97.0 F L 63 14 149/92 91 02/13/18 12:25 02/13/18 07:41 02/13/18 12:25 02/13/18 12:25 02/13/18 07:44 General appearance: cooperative, morbidly obese, no acute distress - Head Head exam: Present: atraumatic, normal inspection, normocephalic - Eye Eye exam: Present: EOMI, normal appearance, PERRL Pupils: Present: normal accommodation - ENT ENT exam: Present: mucous membranes moist - Neck Neck exam: Present: normal inspection Additional comments: Temporary dialysis catheter noted to the right neck with transparent dressing C/ D/I. - Respiratory Respiratory exam: Present: CTAB. Absent: rales, respiratory distress, rhonchi, wheezes - Cardiovascular Cardiovascular exam: Present: irregular rhythm, +S1, +S2. Absent: tachycardia - GI/Abdominal GI/Abdominal exam: Present: distended (obese), normal bowel sounds, soft. Absent: tenderness Additional comments: Rectal tube without any stool in the collection bag or tubing at this time. - Extremities Exam Extremities exam: Present: pedal edema (Trace BLE) Additional comments: AV fistula noted to the upper portion of the LUE with dressing in place. + thrill/- bruit. Bilateral thigh dressings C/D/I. - Neurological Exam Neurological exam: Present: alert, oriented X3, no focal deficits - Psychiatric Psychiatric exam: Present: normal affect, normal mood - Skin Skin exam: Present: dry, intact, normal color, warm Additional comments: Abdominal wound dressings C/D/I. - VTE Reasons for not Prescribing Prophylaxis: Not indicated-Anticoagulated or INR therapeutic Documentation of Mechanical Device: Intermittent pneumatic compression device Consult Discharge Plan - Plan Referrals: Peter Vicente DO [Primary Care Provider] -
--- NOTE | 2018-02-13 16:10 | Internal Med Progress Note ---
<Ponce Yee - Last Filed: 02/13/18 16:07> Hospitalist Progress Note - Encounter Date of Encounter: 02/13/18 Time of Encounter: 16:08 - Subjective Interval History: Pt seen and examined. Reports no new complaints today. No overnight events. Did well with HD today. Denies dizziness, chest pain, dyspnea, abdominal pain, N/V, change in bowels, dysuria, or worsening edema. - Exam Vitals: Temp Pulse Resp BP Pulse Ox 97.0 F L 63 14 149/92 91 02/13/18 12:25 02/13/18 07:41 02/13/18 12:25 02/13/18 12:25 02/13/18 07:44 Exam: GEN: No acute distress, A&O3 HEAD: Atraumatic, normocephalic EYES: Pupils symmetric, sclerae white, conjunctiva pink HEART: RRR, normal S1 and S2, no murmurs LUNGS: Clear to auscultation bilaterally, no wheezes, rhonchi, or crackles ABD: Soft, nontender, nondistended, bowel sounds present SKIN: multiple areas of abdomen and legs with bandages in place - c/d/i EXT: Mild bilateral LE edema, pulses 2/4 NEURO: No focal deficits, cooperative with exam - Assessment and Plan (1) Sepsis Current Visit: Yes Status: Acute Assessment and Plan: Due to multiple calciphylaxis related wound infections Pt on prednisone d/t hx of renal transplant - currently vitals stable and no stress dose of steroids given WCx with GNR, Enterobacter, and Proteus - ATB per ID BCx no growth to date (2) Wound infection Current Visit: Yes Status: Acute Assessment and Plan: Continue antibiotics per ID and routine wound care - s/p debridement per Gen Surg (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 Assessment and Plan: Poor prognosis Receiving sodium thiosulfate after HD (4) ESRD (end stage renal disease) Current Visit: Yes Status: Chronic Assessment and Plan: HD per nephrology Renal dose meds per nephrology Fistulagram failed - tunneled line tomorrow - hold Eliquis until tunneled line (5) Anemia in chronic kidney disease (CKD) Current Visit: Yes Status: Chronic Assessment and Plan: Hgb 9.1 today s/p 3U RBCs this admission Continue to monitor Hx of iron deficiency anemia with iron supplementation Hemoccult positive - EGD/colonoscopy with GI tomorrow (6) Afib Current Visit: Yes Status: Chronic Assessment and Plan: Currently regular with rate controlled Resume Eliquis when able DVT Prophylaxis: SCDs - Time Spent with Patient Total time spent is greater than 50% in coordination of care (as documented) at patient's floor/unit and/or counseling patient: Internal Medicine: Result - Labs CBC & Chem 7: 02/13/18 04:05 02/13/18 04:05 Labs: Short CBC 02/13/18 02/13/18 Range/Units 04:05 04:05 WBC 13.9 H 14.2 H (4.3-11.1) K/mcL Hgb 8.9 L 9.1 L (11.5-15.4) g/dL Hct 26.7 L 26.9 L (35.3-44.9) % Plt Count 147 150 (140-400) K/mcL Neutrophils # 10.9 H (1.6-8.9) K/mcL BMP 02/13/18 04:05 Sodium 137 Potassium 5.0 Chloride 93 L Carbon Dioxide 16 L BUN 43 H Creatinine 6.40 H Glucose 91 Calcium 7.1 L - ABG Interpretation ABG results: ABG ABG pH 7.40 pH Units (7.32-7.45) 02/06/18 14:00 ABG pCO2 30 mmHg (35-45) L 02/06/18 14:00 ABG pO2 85 mmHg (85-104) 02/06/18 14:00 ABG O2 Saturation 97 % (95-98) 02/06/18 14:00 PT/INR, D-dimer PT 18.7 Seconds (9.4-12.1) H 02/12/18 06:15 - VTE Reasons for not Prescribing Prophylaxis: Not indicated-Anticoagulated or INR therapeutic Documentation of Mechanical Device: Intermittent pneumatic compression device Consult Discharge Plan - Plan Referrals: Peter Vicente DO [Primary Care Provider] - <Eric Long - Last Filed: 02/13/18 17:30> Hospitalist Progress Note - Encounter Date of Encounter: 02/13/18 - Exam Vitals: Temp Pulse Resp BP Pulse Ox 98.9 F 72 17 111/72 92 02/13/18 16:22 02/13/18 16:22 02/13/18 16:22 02/13/18 16:22 02/13/18 16:22 - Assessment and Plan (1) Anemia in chronic kidney disease (CKD) Current Visit: Yes Status: Chronic (2) DVT prophylaxis Current Visit: Yes Status: Acute (3) ESRD on hemodialysis Current Visit: Yes Status: Chronic (4) Afib Current Visit: Yes Status: Chronic (5) Calciphylaxis Current Visit: Yes Status: Chronic (6) Wound infection Current Visit: Yes Status: Acute (7) Noncompliance with renal dialysis Current Visit: Yes Status: Acute (8) Sepsis Current Visit: Yes Status: Acute - Time Spent with Patient Total time spent is greater than 50% in coordination of care (as documented) at patient's floor/unit and/or counseling patient: Internal Medicine: Result - Labs CBC & Chem 7: 02/13/18 04:05 02/13/18 04:05 Labs: Short CBC 02/13/18 02/13/18 Range/Units 04:05 04:05 WBC 13.9 H 14.2 H (4.3-11.1) K/mcL Hgb 8.9 L 9.1 L (11.5-15.4) g/dL Hct 26.7 L 26.9 L (35.3-44.9) % Plt Count 147 150 (140-400) K/mcL Neutrophils # 10.9 H (1.6-8.9) K/mcL BMP 02/13/18 04:05 Sodium 137 Potassium 5.0 Chloride 93 L Carbon Dioxide 16 L BUN 43 H Creatinine 6.40 H Glucose 91 Calcium 7.1 L - ABG Interpretation ABG results: ABG ABG pH 7.40 pH Units (7.32-7.45) 02/06/18 14:00 ABG pCO2 30 mmHg (35-45) L 02/06/18 14:00 ABG pO2 85 mmHg (85-104) 02/06/18 14:00 ABG O2 Saturation 97 % (95-98) 02/06/18 14:00 PT/INR, D-dimer PT 18.7 Seconds (9.4-12.1) H 02/12/18 06:15 - Attending Attestation I have seen and examined this patient independently. I have discussed with resident physician Dr. Serra regarding the management plan. Agree with the documentation. <Ponce Yee - Last Filed: 02/13/18 16:07> (1) Sepsis Qualifiers: Sepsis type: sepsis due to unspecified organism Qualified Code(s): A41.9 - Sepsis, unspecified organism (5) Anemia in chronic kidney disease (CKD) Qualifiers: Chronic kidney disease stage: on chronic dialysis Qualified Code(s): N18.6 - End stage renal disease; D63.1 - Anemia in chronic kidney disease; Z99.2 - Dependence on renal dialysis (6) Afib Qualifiers: Atrial fibrillation type: paroxysmal Qualified Code(s): I48.0 - Paroxysmal atrial fibrillation <Eric Long - Last Filed: 02/13/18 17:30> (1) Anemia in chronic kidney disease (CKD) Qualifiers: Chronic kidney disease stage: on chronic dialysis Qualified Code(s): N18.6 - End stage renal disease; D63.1 - Anemia in chronic kidney disease; Z99.2 - Dependence on renal dialysis (4) Afib Qualifiers: Atrial fibrillation type: paroxysmal Qualified Code(s): I48.0 - Paroxysmal atrial fibrillation (8) Sepsis Qualifiers: Sepsis type: sepsis due to unspecified organism Qualified Code(s): A41.9 - Sepsis, unspecified organism
[2018-02-13] MEDS: Sodium Thiosulfate 25 GM in EMPTY BAG 1 EACH IVPB SCH (17:14)
[2018-02-13] MEDS ORDERED: Polyethylene Glycol 3350 255 GM POWDER PO ONE (17:56)
--- NOTE | 2018-02-14 06:18 | Anesthesia Evaluation PreOp ---
Date of Encounter: 02/14/18 Time of Encounter: 06:15 - Past History Planned Operation: Double Endo Cardiac History: HTN, Hyperlipidemia, Arrhythmia (Hx AFib, off Eliquis 3 days, on metoprolol, currently SR), Other (Anemia from GI Bleed and CKD) Pulmonary History: Asthma COMMUNITY AIDE History: Denies Any Significant HX Other Medical History: Renal (Hx Renal Transplant 2007, ESRD, dialyzed 02-13), Diabetes Type II, Thyroid, GERD Anesthesia History: No Prior Anesthetic Complications : No Alcohol Use: none Drug use: none Medications and Allergies Albuterol Sulfate [Albuterol Inhaler] 2 puff IH Q4H PRN 09/09/16 [History] Amiodarone [Cordarone] 200 mg PO DAILY 09/09/16 [History] Atorvastatin [Lipitor] 40 mg PO HS 09/09/16 [History] Budesonide/Formoterol 160/4.5 [Symbicort 160/4.5] 2 puff IH BIDR 09/09/16 [ History] Ipratropium/Albuterol Neb [Duoneb] 3 ml IH QID PRN 09/09/16 [History] Levothyroxine Sodium [Synthroid] 200 mcg PO QAM 09/09/16 [History] Omeprazole [PriLOSEC] 20 mg PO DAILY 09/09/16 [History] cloNIDine HCl [Clonidine HCl] 0.3 mg PO TID 09/09/16 [History] hydrALAZINE [HydrALAZINE] 50 mg PO BID 09/09/16 [History] predniSONE [PredniSONE] 10 mg PO DAILY 09/09/16 [History] Acetaminophen [Acetaminophen ER] 650 mg PO Q4H PRN 12/23/16 [History] Montelukast [Singulair] 10 mg PO DAILY 02/16/17 [History] Amlodipine Besylate 5 mg PO BID 01/07/18 [History] Folic Acid 1 mg PO DAILY 01/07/18 [History] Metoprolol Succinate [Toprol Xl] 25 mg PO DAILY 01/07/18 [History] Potassium Chloride 20 meq PO DAILY 01/07/18 [History] Apixaban [Eliquis] 5 mg PO BID #60 tablet 01/18/18 [Rx] 3 Allergy/AdvReac Type Severity Reaction Status Date / Time heparin Allergy See Verified 01/07/18 13:14 Comments - Meds/Allergy Pre-op Review Medications Reviewed: Yes Allergies Reviewed: Yes Beta Blockers on Current Med List: Yes (Last dose Metoprolol 7-31 on 12:57) Anesthesia Results - Labs 02/13/18 04:05 02/13/18 04:05 - Imaging EKG: report reviewed (SR First Degree AV Block) Additional studies: ECHO 2017 EF 55%, no pulm htn Anesthesia Exam Vital Signs/O2 Sat/Glucose, Most Current Temp Pulse Resp BP Pulse Ox 02/14/18 04:14 98.7 F 73 17 113/74 95 Height: 5'2 Weight: 173 lbs NPO (# of Hours): MN Pain Scale: 0 - HEENT Pupil (Motor): Pupils equal, EOMI Mallampati: III Teeth: Normal Oral Opening: Less than or equal to 3 - COMMUNITY AIDE LOC: Oriented COMMUNITY AIDE Motor: Normal RUE, Normal LUE, Normal RLE, Normal LLE, Normal Face COMMUNITY AIDE Sensory: Normal: RUE, LUE, RLE, LLE, Face - Cardiac Rhythm: Regular Murmur: None JVD: No Carotid Bruit: No - Pulmonary Breath Sounds: bilateral Clear Respiratory Effort: Symmetrical Anesthesia Assess/Plan ASA Score: 4 (ESRD on Dialysis, DM HTN Anemia) Modified Sheela Scale for Level of Consciousness: Cooperative, oriented, and tranquil Anesthetic Plan: MAC Monitoring Plan: Standard Monitors Recovery Plan: Other (MAC)
[2018-02-14 07:44] LABS: Hematocrit 26.4 % (35.3-44.9); Hemoglobin 9.2 g/dL (11.5-15.4); Mean Corpuscular HGB Conc 34.8 g/dL (31.6-35.5); Mean Corpuscular Hemoglobin 32.4 pg (28.0-33.3); Mean Platelet Volume 10.4 fL (9.4-12.4); Platelet Count 170 K/mcL (140-400); Red Blood Count 2.84 M/mcL (3.82-4.97); Red Cell Distribution Width 17.9 % (11.5-14.5)
[2018-02-14] MEDS: Insulin LISPRO 300 UNITS/3 ML VIAL SQ SCH ×4 (07:47→23:30)
[2018-02-14] MEDS: Budesonide/Formoterol 160/4.5 MDI IH SCH ×2 (07:56→20:04)
[2018-02-14 08:16] LABS: Calcium 7.3 mg/dL (8.6-10.3); Potassium 3.6 mEq/L (3.5-5.1)
[2018-02-14] MEDS: amLODIPine 5 MG TABLET PO SCH ×2 (08:25→22:38)
[2018-02-14] MEDS: predniSONE 10 MG TABLET PO SCH (08:25)
[2018-02-14] MEDS: *HR* Amiodarone 200 MG TABLET PO SCH (08:25)
[2018-02-14] MEDS: Folic Acid 1 MG TABLET PO SCH (08:25)
[2018-02-14] MEDS: hydrALAZINE 25 MG TABLET PO SCH ×2 (08:26→22:38)
[2018-02-14] MEDS: Metoprolol XL (24 HR) Succ 25 MG TAB.ER.24H PO SCH ×2 (08:26→22:38)
[2018-02-14 08:39] LABS: INR 1.3; Prothrombin Time 15.1 Seconds (9.4-12.1)
--- NOTE | 2018-02-14 08:53 | Internal Med Progress Note ---
<Jn Long - Last Filed: 02/14/18 14:34> Hospitalist Progress Note - Encounter Date of Encounter: 02/14/18 Time of Encounter: 08:52 - Subjective Interval History: Patient seen and examined. States he is feeling tired as she did not sleep much last night after getting a bowel prep. She continues to have diarrhea but denies any blood. She states the pain in her abdomen from her wounds is slightly improved. She denies any shortness of breath, nausea, vomiting, fevers. - Exam Vitals: Temp Pulse Resp BP Pulse Ox 98.8 F 77 18 108/72 92 02/14/18 08:21 02/14/18 08:21 02/14/18 08:21 02/14/18 08:21 02/14/18 08:21 Exam: Gen: NAD, alert, awake HEENT: NCAT, EOMI, neck supple, no LAD Cardiac: RRR, no murmur, no carotid bruits Lungs: CTAB, no w/r/r, easy respirations Abd: wounds currently dressed, tender Ext: trace pedal edema, 2+ pedal pulses bilaterally Neuro: appropriate affect, answers questions appropriately, good historian - Assessment and Plan (1) Sepsis Current Visit: Yes Status: Acute Assessment and Plan: Due to multiple calciphylaxis related wound infections Pt on prednisone d/t hx of renal transplant Wound culture positive for Enterobacter colacae complex and aerogenes, and Proteus Infectious disease on board, will continue on Meropenem Blood and anaerobic cultures no growth to date (2) Wound infection Current Visit: Yes Status: Acute Assessment and Plan: Continue antibiotics per ID Wound care consulted, appreciate recommendations Surgery has debrided tissue, did not recommend transfer to tertiary center for plastics (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 Assessment and Plan: Nephrology following closely Receiving sodium thiosulfate after HD (4) Afib Current Visit: Yes Status: Chronic Assessment and Plan: Currently regular with rate controlled Resume Eliquis if scopes rule out bleed (5) Anemia in chronic kidney disease (CKD) Current Visit: Yes Status: Chronic Assessment and Plan: Hgb 9.2 today, stable from 9.1 yesterday s/p 3U RBCs this admission Continue to monitor Hx of iron deficiency anemia with iron supplementation Hemoccult positive - EGD/colonoscopy today (6) ESRD (end stage renal disease) Current Visit: Yes Status: Chronic Assessment and Plan: HD per nephrology Renal dose meds per nephrology Permacath placed by IR today (7) Noncompliance with renal dialysis Current Visit: Yes Status: Acute DVT Prophylaxis: IPCDs - Time Spent with Patient Total time spent is greater than 50% in coordination of care (as documented) at patient's floor/unit and/or counseling patient: 25 - 35 minutes Plan of Care Discussed with: nurse Internal Medicine: Result - Labs CBC & Chem 7: 02/14/18 07:25 02/14/18 07:25 Labs: Short CBC 02/14/18 Range/Units 07:25 WBC 12.9 H (4.3-11.1) K/mcL Hgb 9.2 L (11.5-15.4) g/dL Hct 26.4 L (35.3-44.9) % Plt Count 170 (140-400) K/mcL BMP 02/14/18 07:25 Sodium 135 L Potassium 3.6 Chloride 97 L Carbon Dioxide 20 L BUN 22 H Creatinine 3.89 H Glucose 81 Calcium 7.3 L - ABG Interpretation ABG results: ABG ABG pH 7.40 pH Units (7.32-7.45) 02/06/18 14:00 ABG pCO2 30 mmHg (35-45) L 02/06/18 14:00 ABG pO2 85 mmHg (85-104) 02/06/18 14:00 ABG O2 Saturation 97 % (95-98) 02/06/18 14:00 PT/INR, D-dimer PT 15.1 Seconds (9.4-12.1) H 02/14/18 08:08 - VTE Reasons for not Prescribing Prophylaxis: Not indicated-Anticoagulated or INR therapeutic Documentation of Mechanical Device: Intermittent pneumatic compression device Consult Discharge Plan - Plan Referrals: Peter Vicente DO [Primary Care Provider] - <Eric Long - Last Filed: 02/14/18 16:31> Hospitalist Progress Note - Encounter Date of Encounter: 02/14/18 - Exam Vitals: Temp Pulse Resp BP Pulse Ox 98.8 F 79 17 102/55 90 02/14/18 16:24 02/14/18 16:24 02/14/18 16:24 02/14/18 16:24 02/14/18 16:24 - Assessment and Plan (1) Anemia in chronic kidney disease (CKD) Current Visit: Yes Status: Chronic (2) DVT prophylaxis Current Visit: Yes Status: Acute (3) ESRD on hemodialysis Current Visit: Yes Status: Chronic (4) Afib Current Visit: Yes Status: Chronic (5) Calciphylaxis Current Visit: Yes Status: Chronic (6) Wound infection Current Visit: Yes Status: Acute (7) Noncompliance with renal dialysis Current Visit: Yes Status: Acute (8) Sepsis Current Visit: Yes Status: Acute - Time Spent with Patient Total time spent is greater than 50% in coordination of care (as documented) at patient's floor/unit and/or counseling patient: Internal Medicine: Result - Labs CBC & Chem 7: 02/14/18 07:25 02/14/18 07:25 Labs: Short CBC 02/14/18 Range/Units 07:25 WBC 12.9 H (4.3-11.1) K/mcL Hgb 9.2 L (11.5-15.4) g/dL Hct 26.4 L (35.3-44.9) % Plt Count 170 (140-400) K/mcL BMP 02/14/18 07:25 Sodium 135 L Potassium 3.6 Chloride 97 L Carbon Dioxide 20 L BUN 22 H Creatinine 3.89 H Glucose 81 Calcium 7.3 L - ABG Interpretation ABG results: ABG ABG pH 7.40 pH Units (7.32-7.45) 02/06/18 14:00 ABG pCO2 30 mmHg (35-45) L 02/06/18 14:00 ABG pO2 85 mmHg (85-104) 02/06/18 14:00 ABG O2 Saturation 97 % (95-98) 02/06/18 14:00 PT/INR, D-dimer PT 15.1 Seconds (9.4-12.1) H 02/14/18 08:08 - Impressions Impressions Guidance Ultrasound 02/14/18 00:00 IMPRESSION: 1. Right internal jugular vein tunneled dialysis catheter placement as discussed above. D/ / Phill Batista MD / Phill Batista MD Interpreting Provider: Phill Batista MD Insertion Non-Tunneled Catheter 02/14/18 00:00 IMPRESSION: 1. Right internal jugular vein tunneled dialysis catheter placement as discussed above. D/ / Phill Batista MD / Phill Batista MD Interpreting Provider: Phill Batista MD - Attending Attestation I have seen and examined this patient independently. I have discussed with resident physician Dr. Long regarding the management plan. Agree with the documentation. <Jn Long - Last Filed: 02/14/18 14:34> (1) Sepsis Qualifiers: Sepsis type: sepsis due to unspecified organism Qualified Code(s): A41.9 - Sepsis, unspecified organism (4) Afib Qualifiers: Atrial fibrillation type: paroxysmal Qualified Code(s): I48.0 - Paroxysmal atrial fibrillation (5) Anemia in chronic kidney disease (CKD) Qualifiers: Chronic kidney disease stage: on chronic dialysis Qualified Code(s): N18.6 - End stage renal disease; D63.1 - Anemia in chronic kidney disease; Z99.2 - Dependence on renal dialysis <Eric Long - Last Filed: 02/14/18 16:31> (1) Anemia in chronic kidney disease (CKD) Qualifiers: Chronic kidney disease stage: on chronic dialysis Qualified Code(s): N18.6 - End stage renal disease; D63.1 - Anemia in chronic kidney disease; Z99.2 - Dependence on renal dialysis (4) Afib Qualifiers: Atrial fibrillation type: paroxysmal Qualified Code(s): I48.0 - Paroxysmal atrial fibrillation (8) Sepsis Qualifiers: Sepsis type: sepsis due to unspecified organism Qualified Code(s): A41.9 - Sepsis, unspecified organism
--- NOTE | 2018-02-14 09:55 | Nephrology Progress Note ---
Date of Encounter: 02/14/18 Time of Encounter: 09:52 - Assessment and Plan (1) ESRD (end stage renal disease) on dialysis Current Visit: Yes Status: Acute Current regimen is TTS at [facility]. HD completed yesterday. Patient will have tunneled catheter placed today with IR. Fistula is still not working after fistulogram. She is also having an upper and lower scope with GI. Will order additional UF and HD as needed. (2) Anemia Current Visit: Yes Status: Chronic Goal hemoglobin is 10-11. Hemoglobin today is 9.2. Is getting an upper and lower GI scope today. Qualifiers: Anemia type: other cause Other causes of anemia: chronic disease, other Qualified Code(s): D63.8 - Anemia in other chronic diseases classified elsewhere (3) Hyperkalemia Current Visit: Yes Status: Resolved K is 3.6, stable. (4) Weakness Current Visit: Yes Status: Acute Per primary. (5) Calciphylaxis Current Visit: Yes Status: Chronic Continue wound care. Subjective Principal diagnosis: generalized weakness Interval history: Pt seen and examined doing well. Denies chest pain/shortness of breath. Admits to diarrhea but has had bowel prep. Will have upper and lower scope today. Is also getting a Tunneled Line placed with IR. Objective - Vital Signs Vital signs: Vital Signs Temp Pulse Resp BP Pulse Ox 02/14/18 08:21 98.8 F 77 18 108/72 92 02/14/18 07:57 18 95 02/14/18 04:14 98.7 F 73 17 113/74 95 02/14/18 01:37 98.9 F 79 16 125/80 92 02/13/18 22:21 99.2 F 77 16 110/73 88 02/13/18 20:09 17 90 02/13/18 16:22 98.9 F 72 17 111/72 92 02/13/18 12:25 97.0 F L 14 149/92 02/13/18 12:15 139/87 02/13/18 12:00 132/92 02/13/18 11:45 140/84 02/13/18 11:30 141/91 02/13/18 11:15 137/86 02/13/18 11:00 149/88 02/13/18 10:45 138/86 02/13/18 10:30 153/92 02/13/18 10:15 148/90 02/13/18 10:00 133/81 Intake and Output 02/13/18 02/14/18 02/14/18 23:59 07:59 15:59 Other: Stool Size Moderate Small Stool Consistency loose liquid Stool Color Brown Yellow # Bowel Movements 1 Weight 78.7 kg Blood Glucose* 208 113 Patient Weight 02/14/18 23:59 Weight 78.7 kg - General Appearance General appearance: Present: well-developed, well-nourished EENT: Present: ATNC, hearing intact, vision intact Neck: Present: supple Respiratory: Present: clear Cardiology: Present: no edema, normal S1, normal S2 Dialysis Vascular Access: Arteriovenous Fistula (Temp line, DRSG C/D/I) thrill: Yes bruit: No Gastrointestinal: Present: normoactive bowel sounds, no tenderness, no guarding Integumentary: Present: no rash, warm and dry Neurologic: Present: alert and oriented x3 Psychiatric: Present: mood/affect appropriate, cooperative - Lab 02/14/18 07:25 02/14/18 07:25 Most recent lab results ABG pH 7.40 pH Units (7.32-7.45) 02/06/18 14:00 ABG pCO2 30 mmHg (35-45) L 02/06/18 14:00 ABG pO2 85 mmHg (85-104) 02/06/18 14:00 ABG HCO3 18 mEq/L (21-27) L 02/06/18 14:00 ABG O2 Saturation 97 % (95-98) 02/06/18 14:00 Calcium 7.3 mg/dL (8.6-10.3) L 02/14/18 07:25 Phosphorus 5.1 mg/dL (2.7-4.5) H 02/06/18 07:52 Magnesium 2.2 mg/dL (1.6-2.6) 02/13/18 04:05 - VTE Reasons for not Prescribing Prophylaxis: Not indicated-Anticoagulated or INR therapeutic Documentation of Mechanical Device: Intermittent pneumatic compression device Consult Discharge Plan - Plan Referrals: Peter Vicente DO [Primary Care Provider] -
[2018-02-14] MEDS ORDERED: Heparin 1,000 UNITS/500 mL 500 ML ONE (10:56)
[2018-02-14] MEDS ORDERED: CeFAZolin Premix DUPLEX 2,000 MG/50 ML BAG IVPB ONE (11:13)
[2018-02-14] MEDS ORDERED: *HR* FentaNYL (PF) 100 MCG/2 ML VIAL IVP ONE (11:15)
[2018-02-14] MEDS ORDERED: 0.9 % Sodium Chloride 500 ML ONE ×2 (11:27→11:37)
--- NOTE | 2018-02-14 11:41 | Infectious Disease Progress No ---
Date of Encounter: 02/14/18 Time of Encounter: 11:39 - Assessment and Plan (1) Sepsis Current Visit: Yes Status: Acute The patient had fever and leukocytosis with some hypotension. Likely secondary to multiple wound infections. Improved. Afebrile. White blood cell count is trending down. Hypotension has resolved. Blood cultures drawn 02/06/18 are negative 2 sets. Repeat blood cultures drawn 02/09/18 are no growth to date [address] of the abdomen and pelvis was negative for acute intra-abdominal abnormality. CT of the chest showed redemonstration of the thick-walled fluid collection in the left lower lobe. Qualifiers: Sepsis type: sepsis due to unspecified organism Qualified Code(s): A41.9 - Sepsis, unspecified organism (2) Wound infection Current Visit: Yes Status: Acute Location: Abdominal wounds. Likely multifactorial: poorly controlled DM, obesity, non-compliance with wound care and antibiotics. Causative organism unclear, but likely polymicrobial. Previous wound culture positive for Pseudomonas stutzeri, E. coli ESBL, and Proteus. Failed to get IV Gentamicin since she wasn't going to HD. Clinically, there was marked regression in the patient's wounds since I saw her last. The wounds were necrotic and foul-smelling. She is status post bedside debridement per the surgery team. Per the surgery team, they feel that the patient's wounds can be managed her and do not require a plastic surgeon evaluation. CT of the abdomen and pelvis does not show any underling abscess. Wound cultures obtained and are growing E. aerogenes (R to Zosyn) and P. mirabilis (melgoza-sensitive) as well as Enterobacter cloace (R to Zosyn). Previous wound cultures grew P. stutzeri (R to Ancef), P. mirabilis (melgoza-sensitive), and E. coli ESBL (sensitive to carbapenems, Gent, Tobra, and Zosyn only). Gen. surgery consulted to assist with dressing recommendations. They have signed off the case. They do not recommend transfer to a tertiary care facility for plastic surgery evaluation. Continue Meropenem 500mg IV daily which will cover all known/previous causative organisms as well as previous E. coli ESBL and anaerobes. Can switch to Gentamicin when ready for discharge to complete a total of 14 days. Treat through 02/24/18, then discontinue Dose-adjust antibiotics for HD. Will ask pharmacy to help with dosing her antibiotics. No further recommendations from the ID team. Will sign off. Please re-consult if needed. (3) Hyperkalemia Current Visit: Yes Status: Resolved Resolved Management per the nephrology team. (4) Pleural effusion Current Visit: Yes Status: Acute CT chest showed bandlike reticular densities most pronounced in the left lung base suggestive of atelectasis with generalizes interstitial prominence with background of hazy ground-glass attenuation suggestive of pulmonary edema. There was a trace left pleural effusion with a loculated pleural fluid within the left major fissure measuring about 2.5x2.5x3.5cm. Recommend pulmonology to evaluate for possible loculated pleural fluid. (5) Weakness Current Visit: Yes Status: Acute Likely secondary to extensive wound infections. Blood cultures are NGTD x 2 sets. Improved. Continue supportive care. (6) Calciphylaxis Current Visit: Yes Status: Chronic Previous skin biopsies negative, but clinical picture consistent with calciphylaxis and the patient reported improvement in her symptoms when she was receiving treatment. Wound care per the general surgery team. Continue antibiotics as above. Sodium thiosulfate per nephrology. (7) ESRD (end stage renal disease) Current Visit: Yes Status: Chronic Nephrology consulted and following. (8) Anemia in chronic kidney disease (CKD) Current Visit: Yes Status: Chronic Hgb 9.2 this morning. Fecal blood test positive. GI consulted and plans for EGD and colonoscopy on Monday. Further workup and management per the primary and nephrology teams. Qualifiers: Chronic kidney disease stage: on chronic dialysis Qualified Code(s): N18.6 - End stage renal disease; D63.1 - Anemia in chronic kidney disease; Z99.2 - Dependence on renal dialysis (9) Afib Current Visit: Yes Status: Chronic Qualifiers: Atrial fibrillation type: paroxysmal Qualified Code(s): I48.0 - Paroxysmal atrial fibrillation - Subjective Interval history: Patient seen and examined. No acute events noted overnight. Patient states that overall she feels a little better today. Having diarrhea due to bowel prep for EGD/C-scope tomorrow. Rectal tube removed due to leaking. Denies fevers, chills , or rigors. Denies chest pain, shortness of breath, or cough. Denies nausea, vomiting, or constipation. She states her appetite is better, but is NPO. Reports pain at the site of the ulcers. Denies oral thrush. Thinks overall her wounds are improving. Infect Dis PN-Objective Data - Labs CBC & Chem 7: 02/15/18 04:00 02/15/18 04:00 Labs: Laboratory Results - last 24 hr 02/12/18 02/13/18 02/13/18 20:17 07:38 11:14 WBC RBC Hgb Hct MCV MCH MCHC RDW Plt Count MPV PT INR Sodium Potassium Chloride Carbon Dioxide BUN Creatinine Est GFR ( Amer) Est GFR (Non-Af Amer) BUN/Creatinine Ratio Glucose POC Glucose 142 H 71 64 L Calculated Osmolality Calcium 02/13/18 02/13/18 02/13/18 13:02 13:41 16:19 WBC RBC Hgb Hct MCV MCH MCHC RDW Plt Count MPV PT INR Sodium Potassium Chloride Carbon Dioxide BUN Creatinine Est GFR ( Amer) Est GFR (Non-Af Amer) BUN/Creatinine Ratio Glucose POC Glucose 63 L 94 114 H Calculated Osmolality Calcium 02/14/18 02/14/18 02/14/18 07:25 07:25 08:08 WBC 12.9 H RBC 2.84 L Hgb 9.2 L Hct 26.4 L MCV 93.0 MCH 32.4 MCHC 34.8 RDW 17.9 H Plt Count 170 MPV 10.4 PT 15.1 H INR 1.3 Sodium 135 L Potassium 3.6 Chloride 97 L Carbon Dioxide 20 L BUN 22 H Creatinine 3.89 H Est GFR ( Amer) 15 L Est GFR (Non-Af Amer) 13 L BUN/Creatinine Ratio 6 Glucose 81 POC Glucose Calculated Osmolality 282 Calcium 7.3 L Cultures: Cultures 02/09/18 16:30 Anaerobic Culture - Preliminary Abdomen At this time, no anaerobic growth is present. The culture will be finalized after 5 days of incubation. 02/09/18 16:30 Wound Culture - Final Abdomen Enterobacter cloacae complex Enterobacter aerogenes Proteus mirabilis 02/09/18 11:37 Blood Culture - Preliminary Peripheral Venipuncture Culture is incubating and being continuously monitored for growth. Final report to follow. 02/09/18 11:37 Blood Culture - Preliminary Peripheral Venipuncture Culture is incubating and being continuously monitored for growth. Final report to follow. Serology 02/09/18 Range/Units 15:41 Stool Occult Blood Positive A (Negative) Exam - Constitutional Vitals: Temp Pulse Resp BP Pulse Ox 98.8 F 77 18 108/72 92 02/14/18 08:21 02/14/18 08:21 02/14/18 08:21 02/14/18 08:21 02/14/18 08:21 General appearance: cooperative, morbidly obese, no acute distress - Head Head exam: Present: atraumatic, normal inspection, normocephalic - Eye Eye exam: Present: EOMI, normal appearance, PERRL Pupils: Present: normal accommodation - ENT ENT exam: Present: mucous membranes moist - Neck Additional comments: Temporary dialysis catheter noted to the right neck. - Respiratory Respiratory exam: Present: CTAB. Absent: rales, respiratory distress, rhonchi, wheezes - Cardiovascular Cardiovascular exam: Present: irregular rhythm, +S1, +S2. Absent: tachycardia - GI/Abdominal GI/Abdominal exam: Present: distended (obese), normal bowel sounds, soft, tenderness (tenderness at ulcer sites.) Additional comments: Abdominal dressings C/D/I. No surrounding erythema or foul odor. - Extremities Exam Extremities exam: Present: pedal edema (Trace BLE). Absent: joint swelling, tenderness Additional comments: Bilateral thigh dressings C/D/I. - Neurological Exam Neurological exam: Present: alert, oriented X3, no focal deficits - Psychiatric Psychiatric exam: Present: normal affect, normal mood - Skin Skin exam: Present: dry, intact, normal color, warm - VTE Reasons for not Prescribing Prophylaxis: Not indicated-Anticoagulated or INR therapeutic Documentation of Mechanical Device: Intermittent pneumatic compression device Consult Discharge Plan - Plan Referrals: Peter Vicente DO [Primary Care Provider] - - Attending Attestation I examined this patient and my medical decision-making was reviewed with the Resident Physician. I agree with the documented findings, disposition and treatment plan as described except to the extent set forth below.
[2018-02-14] MEDS: *HR* Midazolam HCl 2 MG/2 ML VIAL IVP ONE ×2 (11:50→11:55)
--- NOTE | 2018-02-14 12:20 | IR Procedure Note ---
Date of procedure: 02/14/18 Consent Obtained: Written consent Timeout: Correct patient and procedure verified, Time out performed, Skin prep completed Local anesthetic: Lidocaine 1% Indications: CRF Procedure Performed: Permacath placement Was there an interior design assistant present: No Results/Findings: RIJ 14F 28cm Isaak-Split TDC placement Estimated blood loss (cc): 0 Complications: None; Tolerated procedure well Post Procedure Treatment Plan: Monitor on floor Specimen: None
[2018-02-14] MEDS: *HR* FentaNYL PATCH 12 MCG PATCH TD SCH (12:33)
--- NOTE | 2018-02-14 12:47 | Anesthesia Evaluation PreOp ---
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 Other Medical History: Renal (kidney transplant, ESRD), Diabetes Type II, Thyroid (Hypo), Other (PUD) Anesthesia History: No Prior Anesthetic Complications, Past Anesthesia (kidney transplant) : No Alcohol Use: none Drug use: none Medications and Allergies Albuterol Sulfate [Albuterol Inhaler] 2 puff IH Q4H PRN 09/09/16 [History] Amiodarone [Cordarone] 200 mg PO DAILY 09/09/16 [History] Atorvastatin [Lipitor] 40 mg PO HS 09/09/16 [History] Budesonide/Formoterol 160/4.5 [Symbicort 160/4.5] 2 puff IH BIDR 09/09/16 [ History] Ipratropium/Albuterol Neb [Duoneb] 3 ml IH QID PRN 09/09/16 [History] Levothyroxine Sodium [Synthroid] 200 mcg PO QAM 09/09/16 [History] Omeprazole [PriLOSEC] 20 mg PO DAILY 09/09/16 [History] cloNIDine HCl [Clonidine HCl] 0.3 mg PO TID 09/09/16 [History] hydrALAZINE [HydrALAZINE] 50 mg PO BID 09/09/16 [History] predniSONE [PredniSONE] 10 mg PO DAILY 09/09/16 [History] Acetaminophen [Acetaminophen ER] 650 mg PO Q4H PRN 12/23/16 [History] Montelukast [Singulair] 10 mg PO DAILY 02/16/17 [History] Amlodipine Besylate 5 mg PO BID 01/07/18 [History] Folic Acid 1 mg PO DAILY 01/07/18 [History] Metoprolol Succinate [Toprol Xl] 25 mg PO DAILY 01/07/18 [History] Potassium Chloride 20 meq PO DAILY 01/07/18 [History] Apixaban [Eliquis] 5 mg PO BID #60 tablet 01/18/18 [Rx] 3 Allergy/AdvReac Type Severity Reaction Status Date / Time heparin Allergy See Verified 01/07/18 13:14 Comments - Meds/Allergy Pre-op Review Medications Reviewed: Yes Allergies Reviewed: Yes Beta Blockers on Current Med List: Yes If Beta Blockers taken, Date/Time (Last Dose taken): none since 02/10/18 Anesthesia Results - Labs 02/14/18 07:25 02/14/18 07:25 Name: Malathi Alexis Date of Study: 02/27/2017 History/Risk Factors: kidney transplant hypertrigliceridemia hypothyroidism asthma bleeding ulcers Diabetes Hypertension Ejection Method: LV Gram Ejection Fraction: 65% Co-dominant Lesion Findings/Interventions * Left Main Coronary Artery The LMCA is angiographically free of disease. * Left Anterior Descending The LAD is angiographically free of disease. The 1st Diagonal is angiographically free of disease. * Circumflex There is a 20% stenosis in the Mid Circumflex. * Right Coronary Artery The RCA is angiographically free of disease. The Right PDA is angiographically free of disease. Right iliofemoral angiogram - appropriate sheath placement for mynx closure. No significant disease visualized in distal EI/ANTHROPOLOGY DEPARTMENT CHAIR/proximal SFA/profunda. Echocardiogram Name: Malathi Alexis Date of Study: 01/26/2017 Impressions: LVEF 55%. Normal LV chamber size, wall thickness and function. Mild left ventricular diastolic dysfunction. Normal right ventricular structure and function. No evidence of pulmonary hypertension. No significant valvular dysfunction. - Imaging EKG: report reviewed (SINUS RHYTHM WITH FIRST DEGREE AV BLOCK WITH SUPRAVENTRICULAR PREMATURE COMPLEXES) Anesthesia Exam Vital Signs/O2 Sat, Most Current Temp Pulse Resp BP Pulse Ox 99.1 F 85 18 110/74 90 02/14/18 12:36 02/14/18 12:36 02/14/18 12:36 02/14/18 12:36 02/14/18 12:36 NPO (# of Hours): > 8 hrs Pain Scale: 0 Pain Scale Used: Numeric (1 - 10)
[2018-02-14] MEDS ORDERED: Ondansetron 4 MG/2 ML VIAL ONE (13:19)
[2018-02-14] MEDS ORDERED: Propofol 500 MG/50 ML INFUS..BTL ONE (13:19)
[2018-02-14] MEDS ORDERED: Lidocaine -MPF 2% 2 ML VIAL ONE (13:19)
[2018-02-14] MEDS: Gentamicin Oint 15 GM TUBE TP SCH (13:53)
[2018-02-14] MEDS ORDERED: *HR* PHENYLEPHRINE 1,000 MCG/10 ML SYRINGE IVP ONE (14:09)
[2018-02-14] MEDS: Meropenem 500 MG in Water for inj. (sterile) 20 ML 5 ML IVP SCH (16:49)
[2018-02-14] MEDS: Acetaminophen 325 MG TABLET PO PRN (17:16)
[2018-02-14] MEDS: *HR* HYDROcodone/Acet 10/325 mg TABLET PO PRN (22:38)
[2018-02-15] MEDS: Gentamicin Oint 15 GM TUBE TP SCH ×2 (01:23→23:00)
[2018-02-15 05:34] LABS: Hemoglobin 7.8 g/dL (11.5-15.4); Mean Corpuscular HGB Conc 32.5 g/dL (31.6-35.5); Mean Corpuscular Volume 95.2 fL (83.0-100.0); Mean Platelet Volume 10.8 fL (9.4-12.4); Platelet Count 182 K/mcL (140-400); Red Blood Count 2.52 M/mcL (3.82-4.97); Red Cell Distribution Width 17.9 % (11.5-14.5)
[2018-02-15 05:50] LABS: Calcium 7.1 mg/dL (8.6-10.3); Potassium 3.8 mEq/L (3.5-5.1)
[2018-02-15] MEDS ORDERED: 0.9 % Sodium Chloride 250 ML IVC PRN (07:27)
[2018-02-15] MEDS ORDERED: 0.9 % Sodium Chloride 1,000 ML PRIME SCH (07:30)
[2018-02-15] MEDS: Budesonide/Formoterol 160/4.5 MDI IH SCH ×2 (07:47→20:13)
[2018-02-15] MEDS ORDERED: 0.9 % Sodium Chloride 1,000 ML ONE ×2 (07:59→12:04)
[2018-02-15] MEDS: Insulin LISPRO 300 UNITS/3 ML VIAL SQ SCH ×3 (08:02→16:23)
[2018-02-15] MEDS: Folic Acid 1 MG TABLET PO SCH (08:09)
[2018-02-15] MEDS: amLODIPine 5 MG TABLET PO SCH ×2 (08:09→23:02)
[2018-02-15] MEDS: predniSONE 10 MG TABLET PO SCH (08:09)
[2018-02-15] MEDS: Metoprolol XL (24 HR) Succ 25 MG TAB.ER.24H PO SCH ×2 (08:09→23:02)
[2018-02-15] MEDS: *HR* Amiodarone 200 MG TABLET PO SCH (08:09)
[2018-02-15] MEDS: hydrALAZINE 25 MG TABLET PO SCH ×2 (08:09→23:02)
--- NOTE | 2018-02-15 09:02 | Internal Med Progress Note ---
<Ponce Yee R - Last Filed: 02/15/18 13:54> Hospitalist Progress Note - Encounter Date of Encounter: 02/15/18 Time of Encounter: 09:10 - Subjective Interval History: Pt seen and examined. Reports no new complaints today. No overnight events. Did well with permacath placement and ECG/colonoscopy yesterday. Will be getting HD today. Pain is continuing to improve. Denies dizziness, chest pain, dyspnea, abdominal pain, N/V, change in bowels, dysuria, or worsening edema. - Exam Vitals: Temp Pulse Resp BP Pulse Ox 98.5 F 78 17 137/81 91 02/15/18 07:42 02/15/18 07:42 02/15/18 07:47 02/15/18 07:42 02/15/18 07:47 Exam: GEN: No acute distress, A&O3 HEAD: Atraumatic, normocephalic EYES: Pupils symmetric, sclerae white, conjunctiva pink HEART: RRR, normal S1 and S2, no murmurs LUNGS: Clear to auscultation bilaterally, no wheezes, rhonchi, or crackles ABD: Soft, nontender, nondistended, bowel sounds present SKIN: multiple areas of abdomen and legs with bandages in place - c/d/i EXT: Mild bilateral LE edema, pulses 2/4 NEURO: No focal deficits, cooperative with exam - Assessment and Plan (1) Sepsis Current Visit: Yes Status: Acute Assessment and Plan: Due to multiple calciphylaxis related wound infections Pt on prednisone d/t hx of renal transplant Wound culture positive for Enterobacter colacae complex and aerogenes, and Proteus Infectious disease on board, will continue on Meropenem Blood and anaerobic cultures no growth to date (2) Wound infection Current Visit: Yes Status: Acute Assessment and Plan: Continue antibiotics per ID Wound care consulted - appreciate recommendations Post surgical debridement (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 Assessment and Plan: Nephrology following closely Permacath yesterday Plan for HD today Sodium thiosulfate after HD (4) ESRD (end stage renal disease) Current Visit: Yes Status: Chronic Assessment and Plan: HD per nephrology Renal dose meds per nephrology Permacath in place per IR (5) Anemia in chronic kidney disease (CKD) Current Visit: Yes Status: Chronic Assessment and Plan: Hgb down to 7.8 today (from 9.1) s/p 3U RBCs this admission - planning to get another 1 U RBC with dialysis Continue to monitor Also iron deficiency anemia - continue iron supplementation Hemoccult positive - EGD/colonoscopy with no active bleeding, atrophy of gastric mucosa and diverticulosis Nephrology starting anaresp weekly (6) Afib Current Visit: Yes Status: Chronic Assessment and Plan: Currently regular and rate controlled Resume Eliquis when able - no active bleeding on scopes, but hgb dropped again today Likely will need aspirin on discharge once hgb stable DVT Prophylaxis: SCDs - Time Spent with Patient Total time spent is greater than 50% in coordination of care (as documented) at patient's floor/unit and/or counseling patient: Internal Medicine: Result - Labs CBC & Chem 7: 02/15/18 04:00 02/15/18 04:00 Labs: Short CBC 02/15/18 Range/Units 04:00 WBC 12.8 H (4.3-11.1) K/mcL Hgb 7.8 L (11.5-15.4) g/dL Hct 24.0 L (35.3-44.9) % Plt Count 182 (140-400) K/mcL BMP 02/15/18 04:00 Sodium 139 Potassium 3.8 Chloride 95 L Carbon Dioxide 20 L BUN 30 H Creatinine 5.32 H Glucose 75 Calcium 7.1 L - ABG Interpretation ABG results: ABG ABG pH 7.40 pH Units (7.32-7.45) 02/06/18 14:00 ABG pCO2 30 mmHg (35-45) L 02/06/18 14:00 ABG pO2 85 mmHg (85-104) 02/06/18 14:00 ABG O2 Saturation 97 % (95-98) 02/06/18 14:00 PT/INR, D-dimer PT 15.1 Seconds (9.4-12.1) H 02/14/18 08:08 - Impressions Impressions Guidance Ultrasound 02/14/18 00:00 IMPRESSION: 1. Right internal jugular vein tunneled dialysis catheter placement as discussed above. D/ / Phill Batista MD / Phill Batista MD Interpreting Provider: Phill Batista MD Insertion Non-Tunneled Catheter 02/14/18 00:00 IMPRESSION: 1. Right internal jugular vein tunneled dialysis catheter placement as discussed above. D/ / Phill Batista MD / Phill Batista MD Interpreting Provider: Phill Batista MD - VTE Reasons for not Prescribing Prophylaxis: Not indicated-Anticoagulated or INR therapeutic Documentation of Mechanical Device: Intermittent pneumatic compression device Consult Discharge Plan - Plan Referrals: Peter Vicente DO [Primary Care Provider] - <Eric Long - Last Filed: 02/15/18 15:40> Hospitalist Progress Note - Encounter Date of Encounter: 02/15/18 - Exam Vitals: Temp Pulse Resp BP Pulse Ox 97.6 F 72 18 178/94 91 02/15/18 13:37 02/15/18 11:41 02/15/18 13:37 02/15/18 13:37 02/15/18 07:47 - Assessment and Plan (1) Anemia in chronic kidney disease (CKD) Current Visit: Yes Status: Chronic (2) DVT prophylaxis Current Visit: Yes Status: Acute (3) ESRD on hemodialysis Current Visit: Yes Status: Chronic (4) Afib Current Visit: Yes Status: Chronic (5) Calciphylaxis Current Visit: Yes Status: Chronic (6) Wound infection Current Visit: Yes Status: Acute (7) Noncompliance with renal dialysis Current Visit: Yes Status: Acute (8) Sepsis Current Visit: Yes Status: Acute - Time Spent with Patient Total time spent is greater than 50% in coordination of care (as documented) at patient's floor/unit and/or counseling patient: Internal Medicine: Result - Labs CBC & Chem 7: 02/15/18 04:00 02/15/18 04:00 Labs: Short CBC 02/15/18 Range/Units 04:00 WBC 12.8 H (4.3-11.1) K/mcL Hgb 7.8 L (11.5-15.4) g/dL Hct 24.0 L (35.3-44.9) % Plt Count 182 (140-400) K/mcL BMP 02/15/18 04:00 Sodium 139 Potassium 3.8 Chloride 95 L Carbon Dioxide 20 L BUN 30 H Creatinine 5.32 H Glucose 75 Calcium 7.1 L - ABG Interpretation ABG results: ABG ABG pH 7.40 pH Units (7.32-7.45) 02/06/18 14:00 ABG pCO2 30 mmHg (35-45) L 02/06/18 14:00 ABG pO2 85 mmHg (85-104) 02/06/18 14:00 ABG O2 Saturation 97 % (95-98) 02/06/18 14:00 PT/INR, D-dimer PT 15.1 Seconds (9.4-12.1) H 02/14/18 08:08 - Attending Attestation I have seen and examined this patient independently. I have discussed with resident physician Dr. Yee regarding the management plan. Agree with the documentation. <Ponce Yee - Last Filed: 02/15/18 13:54> (1) Sepsis Qualifiers: Sepsis type: sepsis due to unspecified organism Qualified Code(s): A41.9 - Sepsis, unspecified organism (5) Anemia in chronic kidney disease (CKD) Qualifiers: Chronic kidney disease stage: on chronic dialysis Qualified Code(s): N18.6 - End stage renal disease; D63.1 - Anemia in chronic kidney disease; Z99.2 - Dependence on renal dialysis (6) Afib Qualifiers: Atrial fibrillation type: paroxysmal Qualified Code(s): I48.0 - Paroxysmal atrial fibrillation <Eric Long - Last Filed: 02/15/18 15:40> (1) Anemia in chronic kidney disease (CKD) Qualifiers: Chronic kidney disease stage: on chronic dialysis Qualified Code(s): N18.6 - End stage renal disease; D63.1 - Anemia in chronic kidney disease; Z99.2 - Dependence on renal dialysis (4) Afib Qualifiers: Atrial fibrillation type: paroxysmal Qualified Code(s): I48.0 - Paroxysmal atrial fibrillation (8) Sepsis Qualifiers: Sepsis type: sepsis due to unspecified organism Qualified Code(s): A41.9 - Sepsis, unspecified organism
--- NOTE | 2018-02-15 09:26 | Nephrology Progress Note ---
Date of Encounter: 02/15/18 Time of Encounter: 09:24 - Assessment and Plan (1) ESRD (end stage renal disease) on dialysis Current Visit: Yes Status: Acute Current regimen is TTS at [facility]. HD ordered for today. Tunneled Line placed yesterday. 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 Will order additional UF and HD as needed. (2) Anemia Current Visit: Yes Status: Chronic Goal hemoglobin is 10-11. Hemoglobin today is 7.8 today. Will do an iron profile today. Aranesp 60 mcg ordered weekly. Qualifiers: Anemia type: other cause Other causes of anemia: chronic disease, other Qualified Code(s): D63.8 - Anemia in other chronic diseases classified elsewhere (3) Hyperkalemia Current Visit: Yes Status: Resolved K is 3.8 stable. (4) Calciphylaxis Current Visit: Yes Status: Chronic Continue wound care. Subjective Principal diagnosis: generalized weakness Interval history: Pt seen and examined doing well. Denies chest pain/shortness of breath. Does feel a little better today. Denies nausea/vomiting. Admits to diarrhea once after scope. Objective - Vital Signs Vital signs: Vital Signs Temp Pulse Resp BP Pulse Ox 02/15/18 07:47 17 91 02/15/18 07:42 98.5 F 78 17 137/81 91 02/15/18 03:44 98.1 F 77 18 145/66 93 02/15/18 00:19 98.3 F 79 18 141/85 94 02/14/18 22:42 82 125/78 02/14/18 20:51 99.3 F 79 16 127/74 89 02/14/18 20:06 16 89 02/14/18 16:24 98.8 F 79 17 102/55 90 02/14/18 13:47 99.1 F 81 18 135/76 90 02/14/18 12:36 99.1 F 85 18 110/74 90 02/14/18 11:53 81 22 140/85 100 Intake and Output 02/14/18 02/15/18 02/15/18 23:59 07:59 15:59 Intake Total 240 / 240 Balance 240 / 240 Intake: Oral 240 / 240 Other: Meal Dinner Percent of Meal Consumed 10% Weight 79.9 kg Blood Glucose* 127 69 Patient Weight 02/15/18 23:59 Weight 79.9 kg - General Appearance General appearance: Present: well-developed, well-nourished EENT: Present: ATNC, hearing intact, vision intact Neck: Present: supple Respiratory: Present: clear Cardiology: Present: no edema, normal S1, normal S2 Dialysis Vascular Access: Venous Catheter (Tunneled Line, DRSG C/D/I.) thrill: Yes bruit: No Gastrointestinal: Present: normoactive bowel sounds, no tenderness, no guarding Integumentary: Present: no rash, warm and dry Neurologic: Present: alert and oriented x3 Psychiatric: Present: mood/affect appropriate, cooperative - Lab 02/15/18 04:00 02/15/18 04:00 Most recent lab results ABG pH 7.40 pH Units (7.32-7.45) 02/06/18 14:00 ABG pCO2 30 mmHg (35-45) L 02/06/18 14:00 ABG pO2 85 mmHg (85-104) 02/06/18 14:00 ABG HCO3 18 mEq/L (21-27) L 02/06/18 14:00 ABG O2 Saturation 97 % (95-98) 02/06/18 14:00 Calcium 7.1 mg/dL (8.6-10.3) L 02/15/18 04:00 Phosphorus 5.1 mg/dL (2.7-4.5) H 02/06/18 07:52 Magnesium 2.2 mg/dL (1.6-2.6) 02/13/18 04:05 - VTE Reasons for not Prescribing Prophylaxis: Not indicated-Anticoagulated or INR therapeutic Documentation of Mechanical Device: Intermittent pneumatic compression device Consult Discharge Plan - Plan Referrals: Peter Vicente DO [Primary Care Provider] -
[2018-02-15 10:48] LABS: Iron 52 mcg/dL (50-170); Transferrin < 75 mg/dL (203-362)
[2018-02-15 11:11] LABS: Folate 13.4 ng/mL (3.0-16.0)
[2018-02-15 11:23] LABS: Vitamin B12 > 1500 pg/mL (250-1100)
[2018-02-15] MEDS: *HR* HYDROcodone/Acet 10/325 mg TABLET PO PRN (15:48)
[2018-02-15] MEDS: Meropenem 500 MG in Water for inj. (sterile) 20 ML 5 ML IVP SCH (15:48)
[2018-02-15] MEDS: Sodium Thiosulfate 25 GM in EMPTY BAG 1 EACH IVPB SCH (18:16)
[2018-02-16] MEDS: *HR* HYDROcodone/Acet 10/325 mg TABLET PO PRN ×3 (00:36→22:51)
[2018-02-16 05:24] LABS: Hematocrit 28.7 % (35.3-44.9); Mean Corpuscular HGB Conc 33.4 g/dL (31.6-35.5); Mean Corpuscular Hemoglobin 31.2 pg (28.0-33.3); Mean Corpuscular Volume 93.2 fL (83.0-100.0); Mean Platelet Volume 10.1 fL (9.4-12.4); Platelet Count 196 K/mcL (140-400); Red Blood Count 3.08 M/mcL (3.82-4.97); Red Cell Distribution Width 17.1 % (11.5-14.5)
[2018-02-16 05:30] LABS: Hemoglobin 9.6 g/dL (11.5-15.4)
[2018-02-16 05:36] LABS: Calcium 7.4 mg/dL (8.6-10.3); Potassium 3.5 mEq/L (3.5-5.1)
[2018-02-16] MEDS: Insulin LISPRO 300 UNITS/3 ML VIAL SQ SCH ×5 (06:38→21:16)
[2018-02-16] MEDS: Folic Acid 1 MG TABLET PO SCH (10:04)
[2018-02-16] MEDS: hydrALAZINE 25 MG TABLET PO SCH ×2 (10:04→19:49)
[2018-02-16] MEDS: Metoprolol XL (24 HR) Succ 25 MG TAB.ER.24H PO SCH ×2 (10:04→19:50)
[2018-02-16] MEDS: *HR* Amiodarone 200 MG TABLET PO SCH (10:04)
[2018-02-16] MEDS: predniSONE 10 MG TABLET PO SCH (10:04)
[2018-02-16] MEDS: amLODIPine 5 MG TABLET PO SCH ×2 (10:04→19:49)
--- NOTE | 2018-02-16 10:23 | Nephrology Progress Note ---
Date of Encounter: 02/16/18 Time of Encounter: 10:21 - Assessment and Plan (1) ESRD (end stage renal disease) on dialysis Current Visit: Yes Status: Acute Current regimen is TTS at [facility]. HD tolerated well yesterday. 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 Will order additional UF and HD as needed. (2) Anemia Current Visit: Yes Status: Chronic Goal hemoglobin is 10-11. Hemoglobin today is 9.6. Aranesp 60 mcg ordered weekly. Will order Ferrous Sulfate Daily. Qualifiers: Anemia type: other cause Other causes of anemia: chronic disease, other Qualified Code(s): D63.8 - Anemia in other chronic diseases classified elsewhere (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 Continue wound care. Continue Sodium Thiosulfate. (4) AV fistula thrombosis Current Visit: Yes Status: Acute Qualifiers: Encounter type: subsequent encounter Qualified Code(s): T82.868D - Thrombosis due to vascular prosthetic devices, implants and grafts, subsequent encounter Subjective Principal diagnosis: generalized weakness Interval history: Pt seen and examined doing well. Denies chest pain/shortness of breath. Denies nausea/vomiting. Objective - Vital Signs Vital signs: Vital Signs Temp Pulse Resp BP Pulse Ox 02/16/18 07:57 98.1 F 82 18 135/83 94 02/16/18 05:34 98.7 F 80 18 125/80 93 02/16/18 00:35 98.9 F 79 18 133/67 94 02/15/18 23:00 132/64 02/15/18 20:16 99.4 F 84 18 116/41 93 02/15/18 20:13 16 93 02/15/18 16:16 98.8 F 84 18 134/81 90 02/15/18 13:37 97.6 F 18 178/94 02/15/18 13:30 167/85 02/15/18 13:15 162/78 02/15/18 13:00 167/84 02/15/18 12:45 163/80 02/15/18 12:30 155/83 02/15/18 12:15 146/80 02/15/18 12:00 150/82 02/15/18 11:45 155/84 02/15/18 11:41 97.2 F L 72 16 163/77 02/15/18 11:30 153/71 08/02/18 11:15 167/79 02/15/18 11:11 97.3 F L 74 16 144/80 02/15/18 11:00 150/60 02/15/18 10:56 98 F 70 16 149/52 02/15/18 10:55 98 F 70 16 149/52 02/15/18 10:45 150/51 02/15/18 10:30 151/70 Intake and Output 02/15/18 02/16/18 02/16/18 23:59 07:59 15:59 Intake Total 480 / 480 150 / 150 Balance 480 / 480 150 / 150 Intake: Oral 480 / 480 150 / 150 Other: Meal Dinner Breakfast Percent of Meal Consumed 10% 20% Weight 79.7 kg Blood Glucose* 150 69 Patient Weight 02/16/18 23:59 Weight 79.7 kg - General Appearance General appearance: Present: well-developed, well-nourished EENT: Present: ATNC, hearing intact, vision intact Neck: Present: supple Respiratory: Present: clear Cardiology: Present: no edema, normal S1, normal S2 Dialysis Vascular Access: Venous Catheter (Tunneled Line, DRSG C/D/I.) Gastrointestinal: Present: normoactive bowel sounds, no tenderness, no guarding Integumentary: Present: no rash, warm and dry Neurologic: Present: alert and oriented x3 Psychiatric: Present: mood/affect appropriate, cooperative - Lab 02/16/18 05:07 02/16/18 05:07 Most recent lab results ABG pH 7.40 pH Units (7.32-7.45) 02/06/18 14:00 ABG pCO2 30 mmHg (35-45) L 02/06/18 14:00 ABG pO2 85 mmHg (85-104) 02/06/18 14:00 ABG HCO3 18 mEq/L (21-27) L 02/06/18 14:00 ABG O2 Saturation 97 % (95-98) 02/06/18 14:00 Calcium 7.4 mg/dL (8.6-10.3) L 02/16/18 05:07 Phosphorus 5.1 mg/dL (2.7-4.5) H 02/06/18 07:52 Magnesium 2.2 mg/dL (1.6-2.6) 02/13/18 04:05 - VTE Reasons for not Prescribing Prophylaxis: Not indicated-Anticoagulated or INR therapeutic Documentation of Mechanical Device: Intermittent pneumatic compression device Consult Discharge Plan - Plan Referrals: Peter Vicente DO [Primary Care Provider] -
[2018-02-16] MEDS: Budesonide/Formoterol 160/4.5 MDI IH SCH ×2 (10:46→20:24)
[2018-02-16] MEDS ORDERED: Gentamicin 120 MG in 0.9 % Sodium Chloride 100 ML IVPB ONE (11:43)
[2018-02-16] MEDS ORDERED: *HR* FentaNYL (PF) 100 MCG/2 ML VIAL IVP ONE (12:34)
[2018-02-16] MEDS ORDERED: Gentamicin 160 MG in 0.9 % Sodium Chloride 100 ML IVPB ONE (12:42)
[2018-02-16] MEDS ORDERED: Gentamicin 1 EACH in 0.9 % Sodium Chloride 100 ML IVPB PRN (13:00)
--- NOTE | 2018-02-16 13:28 | Discharge Summary ---
<Ponce Yee R - Last Filed: 02/16/18 15:45> - NOTES TO OUTPATIENT PROVIDER Notes to Outpatient Provider: Pt is to be on Gentamicin until 02/24/18 per ID recommendations. She will get that after each dialysis treatment. Please check a gentamicin trough level at least once weekly before a dialysis treatment. Orders not resulted at time of discharge: Pending orders 02/17/18 04:00 Basic Metabolic Panel AM 0400 CBC no Diff [Complete Blood Count w/o Diff] [HEME] AM 0400 Gentamicin,Random AM 0400 Date of Encounter: 02/16/18 Time of Encounter: 10:10 - Discharge Diagnosis (1) Sepsis Priority: Primary Status: Acute Qualifiers: Sepsis type: sepsis due to unspecified organism Qualified Code(s): A41.9 - Sepsis, unspecified organism (2) Wound infection Priority: Secondary Status: Acute (3) Calciphylaxis Priority: Secondary Status: Chronic (4) ESRD (end stage renal disease) Priority: Secondary Status: Chronic (5) Anemia in chronic kidney disease (CKD) Priority: Secondary Status: Chronic Qualifiers: Chronic kidney disease stage: on chronic dialysis Qualified Code(s): N18.6 - End stage renal disease; D63.1 - Anemia in chronic kidney disease; Z99.2 - Dependence on renal dialysis (6) Afib Priority: Secondary Status: Chronic Qualifiers: Atrial fibrillation type: paroxysmal Qualified Code(s): I48.0 - Paroxysmal atrial fibrillation Hospital course: Ms. 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 She was initiated on broad-spectrum antibiotics as previous cultures had grown multiple organisms. She previously was supposed to be on gentamicin, but was not compliant with dialysis so she missed antibiotic treatment. General surgery was consulted for debridement of her multiple wounds. She has been following with wound care. Her fistulogram was malfunctioning, so a permacath was placed. Nephrology was consulted and the patient received hemodialysis throughout her stay. She is normally on a Monday , , and Monday regimen [facility]. She is receiving sodium thiosulfate with her dialysis for calciphylaxis. She is also anemic, and had occult positive stools. GI was consulted with no active bleeding found on EGD or colonoscopy. EGD did note atrophic gastric mucosa, but no ulcers or bleeding. Anemia is both iron deficiency and anemia of CKD. Nephrology started the patient on weekly Aranesp. Wound cultures were positive for Enterobacter colacae complex and aerogenes, and Proteus. Antibiotics were de-escalate to meropenem, and ID recommendations gentamicin upon discharge until 02/24/18. She received the initial loading dose prior to discharge. Subsequent maintenance doses of 80 mg will be provided with dialysis. She will need a gentamicin trough level drawn prior to her first dialysis treatment upon discharge. And then will need gentamicin trough levels drawn once weekly prior to dialysis. Plan is to be discharged to ECF pending placement. - Time Spent with Patient Total time spent providing and/or coordinating discharge services: - Discharge Medications Prescriptions: FentaNYL PATCH [Duragesic] 12 mcg TD Q72H 6 Days #2 patch.td72 Gentamicin Sulfate 80 mg IVPB WD #8 mls HYDROcodone/Acet 10/325 mg [[place] 10-325 mg] 1 each PO Q6H PRN 3 Days #12 tablet PRN Reason: Severe Pain Home Medications: Albuterol Sulfate [Albuterol Inhaler] 2 puff IH Q4H PRN 09/09/16 [History] Amiodarone [Cordarone] 200 mg PO DAILY 09/09/16 [History] Atorvastatin [Lipitor] 40 mg PO HS 09/09/16 [History] Budesonide/Formoterol 160/4.5 [Symbicort 160/4.5] 2 puff IH BIDR 09/09/16 [ History] Ipratropium/Albuterol Neb [Duoneb] 3 ml IH QID PRN 09/09/16 [History] Levothyroxine Sodium [Synthroid] 200 mcg PO QAM 09/09/16 [History] Omeprazole [PriLOSEC] 20 mg PO DAILY 09/09/16 [History] cloNIDine HCl [Clonidine HCl] 0.3 mg PO TID 09/09/16 [History] hydrALAZINE [HydrALAZINE] 50 mg PO BID 09/09/16 [History] predniSONE [PredniSONE] 10 mg PO DAILY 09/09/16 [History] Acetaminophen [Acetaminophen ER] 650 mg PO Q4H PRN 12/23/16 [History] Montelukast [Singulair] 10 mg PO DAILY 02/16/17 [History] Amlodipine Besylate 5 mg PO BID 01/07/18 [History] Folic Acid 1 mg PO DAILY 01/07/18 [History] Metoprolol Succinate [Toprol Xl] 25 mg PO DAILY 01/07/18 [History] Potassium Chloride 20 meq PO DAILY 01/07/18 [History] Apixaban [Eliquis] 5 mg PO BID #60 tablet 01/18/18 [Rx] Collagenase Oint [Santyl] 1 appl TP HS tube 02/16/18 [Rx] Darbepoetin [Aranesp] 60 mcg SQ QWEEK syringe 02/16/18 [Rx] FentaNYL PATCH [Duragesic] 12 mcg TD Q72H 6 Days #2 patch.td72 02/16/18 [Rx] Ferrous Sulfate 325 mg PO DAILY tablet 02/16/18 [Rx] Gentamicin Oint [Garamycin] 1 appl TP 2100 tube 02/16/18 [Rx] Gentamicin Sulfate 80 mg IVPB WD #8 mls 02/16/18 [Rx] HYDROcodone/Acet 10/325 mg [[place] 10-325 mg] 1 each PO Q6H PRN 3 Days #12 tablet 02/16/18 [Rx] Sodium Hypochlorite 0.25% [Dakin's (Half-Strength 0.25%)] 1 appl TP 2100 bottle 02/16/18 [Rx] Allergies/Adverse Reactions: 3 Allergy/AdvReac Type Severity Reaction Status Date / Time heparin Allergy See Verified 01/07/18 13:14 Comments Date of admission: 02/06/18 12:10 Primary care physician: Peter Vicente DO Consults: 02/06/18 14:30 Consult to Dialysis [CONS] ONCE 02/06/18 17:06 Consult to Interventional Radiology [CONS] Routine Consulting Provider: Radiology Interventional [facility] Reason for Consult: If able please do a fistulagram. If not please place temp. HD line. Fistula is nonfunctioning. Thanks Time Notified: 17:07 Call Completed: No 02/07/18 11:00 Consult to Dialysis [CONS] ONCE 02/07/18 13:34 Consult to [place] [facility] [CONS] Routine Reason for SW Consult: ECF placement. HD TTS at [facility] [place]. Will need aggressive wound care. Agrees to go to [facility] in [place] if possible. 02/08/18 08:45 Consult to Dialysis [CONS] ONCE 02/08/18 11:03 Consult to Wound Care [CONS] Routine Reason for Consult: calciphylaxis Local wound care: remove dressings. Wash gently with soap and water. Apply gentamycin ointment. Apply Santyl nickel thick. Cover with a saline moistened gauze to activate. Cover with a dry dressing. Tape to secure. Time Notified: 11:03 Call Completed: No 02/10/18 08:45 Consult to Dialysis [CONS] ONCE 02/11/18 07:54 Consult to Gastroenterology [CONS] Routine Consulting Provider: [facility] [place] Reason for Consult: FOBT + on eliquis for anticoagulation/ Anemia Time Notified: 07:54 Call Completed: Yes 02/12/18 10:47 Consult to Interventional Radiology [CONS] Routine Consulting Provider: Radiology Interventional [facility] Reason for Consult: fistulagram Time Notified: 10:51 Call Completed: Yes 02/13/18 07:15 Consult to Dialysis [CONS] ONCE 02/13/18 13:31 Consult to Interventional Radiology [CONS] Routine Consulting Provider: Radiology Interventional [facility] Reason for Consult: Fistula is not functioning. Please place Tunneled HD line. Time Notified: 13:34 Call Completed: Yes 02/15/18 07:30 Consult to Dialysis [CONS] ONCE Discharging clinician: Ponce Yee Anticipated date of discharge: 02/16/18 - Constitutional Vitals: Temp Pulse Resp BP Pulse Ox 98.2 F 79 17 134/61 92 02/16/18 11:29 02/16/18 11:29 02/16/18 11:29 02/16/18 11:29 02/16/18 11:29 - Other Additional findings: GEN: No acute distress, A&O3 HEAD: Atraumatic, normocephalic EYES: Pupils symmetric, sclerae white, conjunctivae pink HEART: RRR, normal S1 and S2, no murmurs LUNGS: Clear to auscultation bilaterally, no wheezes, rhonchi, or crackles ABD: Soft, nontender, nondistended, bowel sounds present, bandages c/d/i EXT: No edema noted, pulses 2/4 NEURO: No focal deficits, cooperative with exam - Patient Status Disposition: Transfer SNF Condition: Fair Overall status at discharge: patient is progressing back to baseline - Discharge Instructions Follow Up With: Peter Vicente DO [Primary Care Provider] - Additional Instructions: Take medications as prescribed Ensure that you make it to dialysis on Monday, , and Saturdays - Diet and Activity Activity: as per physical therapy Diet: low salt diet - VTE Reasons for not Prescribing Prophylaxis: Not indicated-Anticoagulated or INR therapeutic Documentation of Mechanical Device: Intermittent pneumatic compression device <Eric Long - Last Filed: 02/16/18 16:25> Orders not resulted at time of discharge: Pending orders 02/17/18 04:00 Basic Metabolic Panel AM 0400 CBC no Diff [Complete Blood Count w/o Diff] [HEME] AM 0400 Gentamicin,Random AM 0400 Date of Encounter: 02/16/18 - Discharge Diagnosis (1) Anemia in chronic kidney disease (CKD) Status: Chronic Qualifiers: Chronic kidney disease stage: on chronic dialysis Qualified Code(s): N18.6 - End stage renal disease; D63.1 - Anemia in chronic kidney disease; Z99.2 - Dependence on renal dialysis (2) DVT prophylaxis Status: Acute (3) ESRD on hemodialysis Status: Chronic (4) Afib Status: Chronic Qualifiers: Atrial fibrillation type: paroxysmal Qualified Code(s): I48.0 - Paroxysmal atrial fibrillation (5) Calciphylaxis Status: Chronic (6) Wound infection Status: Acute (7) Noncompliance with renal dialysis Status: Acute (8) Sepsis Status: Acute Qualifiers: Sepsis type: sepsis due to unspecified organism Qualified Code(s): A41.9 - Sepsis, unspecified organism Hospital course: Ms. Alexis is a 43 year old female - Time Spent with Patient Total time spent providing and/or coordinating discharge services: Date of admission: 02/06/18 12:10 Primary care physician: Peter Vicente DO Consults: 02/06/18 14:30 Consult to Dialysis [CONS] ONCE 02/06/18 17:06 Consult to Interventional Radiology [CONS] Routine Consulting Provider: Radiology Inter[facility] Reason for Consult: If able please do a fistulagram. If not please place temp. HD line. Fistula is nonfunctioning. Thanks Time Notified: 17:07 Call Completed: No 02/07/18 11:00 Consult to Dialysis [CONS] ONCE 02/07/18 13:34 Consult to [place] [CONS] Routine Reason for SW Consult: ECF placement. HD TTS at [facility] [place]. Will need aggressive wound care. Agrees to go to [facility] in [place] if possible. 02/08/18 08:45 Consult to Dialysis [CONS] ONCE 02/08/18 11:03 Consult to Wound Care [CONS] Routine Reason for Consult: calciphylaxis Local wound care: remove dressings. Wash gently with soap and water. Apply gentamycin ointment. Apply Santyl nickel thick. Cover with a saline moistened gauze to activate. Cover with a dry dressing. Tape to secure. Time Notified: 11:03 Call Completed: No 02/10/18 08:45 Consult to Dialysis [CONS] ONCE 02/11/18 07:54 Consult to Gastroenterology [CONS] Routine Consulting Provider: [facility] [place] Reason for Consult: FOBT + on eliquis for anticoagulation/ Anemia Time Notified: 07:54 Call Completed: Yes 02/12/18 10:47 Consult to Interventional Radiology [CONS] Routine Consulting Provider: Radiology [facility] Reason for Consult: fistulagram Time Notified: 10:51 Call Completed: Yes 02/13/18 07:15 Consult to Dialysis [CONS] ONCE 02/13/18 13:31 Consult to Interventional Radiology [CONS] Routine Consulting Provider: Radiology Interventional [facility] Reason for Consult: Fistula is not functioning. Please place Tunneled HD line. Time Notified: 13:34 Call Completed: Yes 02/15/18 07:30 Consult to Dialysis [CONS] ONCE - Constitutional Vitals: Temp Pulse Resp BP Pulse Ox 98.2 F 79 17 134/61 92 02/16/18 11:29 02/16/18 11:29 02/16/18 11:29 02/16/18 11:29 02/16/18 11:29 - Attending Attestation I have seen and examined this patient independently. I have discussed with resident physician Dr. Yee regarding the discharge and the follow-up plan. Agree with the documentation.
--- NOTE | 2018-02-16 14:01 | General Surgery Procedure Note ---
Date of procedure: 02/16/18 Pre-op diagnosis: Calciphylaxis Post-op diagnosis: same Procedure: After informed consent was obtained and time-out was performed. Sharp debridement of the LLE necrotic wound was carried out at the bedside. Debridement was complete with the use of pick-ups and a #10 blade scalpel. Debidement was carried out through skin and subcutaneous tissue. There was no bleeding noted. Removal of 60% of necrotic tissue was complete. The patient tolerated the procedure well and there were no immediate complications noted. Complications: None Anesthesia: none Surgeon: Patsy Calderon Estimated blood loss (cc): 0 Pathology: none sent Disposition: no change
--- NOTE | 2018-02-16 15:49 | Physician Discharge Referral ---
ExtendedCare Referral Info Transfer To: [facility] Provider in Charge: [facility] director of medical services - Diagnosis (1) Sepsis Priority: Primary Status: Acute (2) Wound infection Priority: Secondary Status: Acute (3) Calciphylaxis Priority: Secondary Status: Chronic (4) ESRD (end stage renal disease) Priority: Secondary Status: Chronic (5) Anemia in chronic kidney disease (CKD) Priority: Secondary Status: Chronic (6) Afib Priority: Secondary Status: Chronic Expected Duration of Placement: undetermined Prognosis: Fair Aware of Diagnosis: Patient Aware of Prognosis: Patient - Transfer Medications Prescriptions: FentaNYL PATCH [Duragesic] 12 mcg TD Q72H 6 Days #2 patch.td72 Gentamicin Sulfate 80 mg IVPB WD #8 mls HYDROcodone/Acet 10/325 mg [[place] 10-325 mg] 1 each PO Q6H PRN 3 Days #12 tablet PRN Reason: Severe Pain Home Medications: Albuterol Sulfate [Albuterol Inhaler] 2 puff IH Q4H PRN 09/09/16 [History] Amiodarone [Cordarone] 200 mg PO DAILY 09/09/16 [History] Atorvastatin [Lipitor] 40 mg PO HS 09/09/16 [History] Budesonide/Formoterol 160/4.5 [Symbicort 160/4.5] 2 puff IH BIDR 09/09/16 [ History] Ipratropium/Albuterol Neb [Duoneb] 3 ml IH QID PRN 09/09/16 [History] Levothyroxine Sodium [Synthroid] 200 mcg PO QAM 09/09/16 [History] Omeprazole [PriLOSEC] 20 mg PO DAILY 09/09/16 [History] cloNIDine HCl [Clonidine HCl] 0.3 mg PO TID 09/09/16 [History] hydrALAZINE [HydrALAZINE] 50 mg PO BID 09/09/16 [History] predniSONE [PredniSONE] 10 mg PO DAILY 09/09/16 [History] Acetaminophen [Acetaminophen ER] 650 mg PO Q4H PRN 12/23/16 [History] Montelukast [Singulair] 10 mg PO DAILY 02/16/17 [History] Amlodipine Besylate 5 mg PO BID 01/07/18 [History] Folic Acid 1 mg PO DAILY 01/07/18 [History] Metoprolol Succinate [Toprol Xl] 25 mg PO DAILY 01/07/18 [History] Potassium Chloride 20 meq PO DAILY 01/07/18 [History] Apixaban [Eliquis] 5 mg PO BID #60 tablet 01/18/18 [Rx] Collagenase Oint [Santyl] 1 appl TP HS tube 02/16/18 [Rx] Darbepoetin [Aranesp] 60 mcg SQ QWEEK syringe 02/16/18 [Rx] FentaNYL PATCH [Duragesic] 12 mcg TD Q72H 6 Days #2 patch.td72 02/16/18 [Rx] Ferrous Sulfate 325 mg PO DAILY tablet 02/16/18 [Rx] Gentamicin Oint [Garamycin] 1 appl TP 2100 tube 02/16/18 [Rx] Gentamicin Sulfate 80 mg IVPB WD #8 mls 02/16/18 [Rx] HYDROcodone/Acet 10/325 mg [[place] 10-325 mg] 1 each PO Q6H PRN 3 Days #12 tablet 02/16/18 [Rx] Sodium Hypochlorite 0.25% [Dakin's (Half-Strength 0.25%)] 1 appl TP 2100 bottle 02/16/18 [Rx] Allergies/Adverse Reactions: 3 Allergy/AdvReac Type Severity Reaction Status Date / Time heparin Allergy See Verified 01/07/18 13:14 Comments - Respiratory Orders Smoking Cessation: Smoking cessation has been advised. For more information, call the [place] Tobacco Quit Line at 6-353-FZEE-NOW. - Lab Orders Lab Orders: Other (include drug levels w/frequency) (Gentamicin trough prior to first dialysis treatment, and then weekly thereafter.) - Ancillary Orders May use pressure relief devices daily prn - Advance Directives Code Status: Full Code - Mobility Orders Chair, Ambulate - Rehabiliation Orders Rehab Potential: Fair Rehab Orders: ROM Exercises, Evaluation for Physical Therapy, Evaluation for Occupational Therapy - Treatments List/Other: Wound care, pain control - Diet Orders Renal CERTIFICATION: I certify that the transfer of the above named patient to an Extended Care Facility is necessary for the continuing treatment of the diagnosis listed. The above information is true and accurate reflection of patient's current condition. Confidential - Redisclosure prohibited without a patient's written consent.
[2018-02-17] MEDS: Ondansetron 4 MG/2 ML VIAL IVP PRN (00:44)
[2018-02-17] MEDS: Gentamicin Oint 15 GM TUBE TP SCH (04:58)
[2018-02-17 06:57] LABS: Hematocrit 30.7 % (35.3-44.9); Hemoglobin 10.6 g/dL (11.5-15.4); Mean Corpuscular HGB Conc 34.5 g/dL (31.6-35.5); Mean Corpuscular Hemoglobin 32.4 pg (28.0-33.3); Mean Corpuscular Volume 93.9 fL (83.0-100.0); Mean Platelet Volume 10.1 fL (9.4-12.4); Platelet Count 227 K/mcL (140-400); Red Blood Count 3.27 M/mcL (3.82-4.97); Red Cell Distribution Width 16.8 % (11.5-14.5)
[2018-02-17] MEDS ORDERED: 0.9 % Sodium Chloride 250 ML IVC PRN (07:15)
[2018-02-17 07:20] LABS: Calcium 7.3 mg/dL (8.6-10.3); Potassium 4.1 mEq/L (3.5-5.1)
[2018-02-17] MEDS: Insulin LISPRO 300 UNITS/3 ML VIAL SQ SCH ×3 (07:36→17:10)
[2018-02-17] MEDS: Budesonide/Formoterol 160/4.5 MDI IH SCH (07:44)
[2018-02-17] MEDS: hydrALAZINE 25 MG TABLET PO SCH (08:31)
[2018-02-17] MEDS: amLODIPine 5 MG TABLET PO SCH (08:32)
[2018-02-17] MEDS: Metoprolol XL (24 HR) Succ 25 MG TAB.ER.24H PO SCH (08:32)
--- NOTE | 2018-02-17 08:44 | Event Note ---
<Ponce Yee - Last Filed: 02/17/18 08:40> Date of Encounter: 02/17/18 Time of Encounter: 08:15 Patient with ESRD, calciphylaxis, and multiple abdominal wounds. Denies any new complaints, denies chest pain, dyspnea, cough, abdominal pain, nausea, vomiting, change in bowels, dysuria. Doing well with the left leg debridement yesterday. Pain is controlled. Transitioned to IV gentamicin yesterday per ID recommendations. She has been accepted to ECF, with plan to discharge today after dialysis. She is content to continue on gentamicin with each dialysis session. GEN: No acute distress, A&O3 HEAD: Atraumatic, normocephalic EYES: Pupils symmetric, sclera white, conjunctiva pink HEART: RRR, normal S1 and S2, no murmurs LUNGS: Clear to auscultation bilaterally, no wheezes, rhonchi, or crackles ABD: Soft, nontender, nondistended, bowel sounds present, bandages C/D/I EXT: Mild edema noted, pulses 2/4 NEURO: No focal deficits, cooperative with exam A/P: Sepsis 2/2 wounds related to calciphylaxis, ESRD - patient will get HD today, with sodium thiosulfate and gentamicin. Discharge after HD to ECF <Eric Long - Last Filed: 02/17/18 14:51> Date of Encounter: 02/17/18 I have seen and examined this patient today. I have discussed with resident physician Dr Yee regarding the management plan. Agree with the documentation.
[2018-02-17] MEDS: *HR* Amiodarone 200 MG TABLET PO SCH (09:36)
[2018-02-17] MEDS: *HR* HYDROcodone/Acet 10/325 mg TABLET PO PRN (09:36)
[2018-02-17] MEDS: Folic Acid 1 MG TABLET PO SCH (09:36)
[2018-02-17] MEDS: predniSONE 10 MG TABLET PO SCH (09:36)
[2018-02-17] MEDS: *HR* FentaNYL PATCH 12 MCG PATCH TD SCH (11:50)
--- NOTE | 2018-02-17 13:25 | Nephrology Progress Note ---
Date of Encounter: 02/17/18 Time of Encounter: 13:23 - Assessment and Plan (1) ESRD (end stage renal disease) on dialysis Current Visit: Yes Status: Acute Current regimen is TTS at [facility]. HD tolerating well. She was seen on dialysis today. 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 She has a tunneled catheter. Will order additional UF and HD as needed. (2) Anemia Current Visit: Yes Status: Chronic Goal hemoglobin is 10-12. Aranesp 60 mcg ordered weekly. Will order Ferrous Sulfate Daily. Qualifiers: Anemia type: other cause Other causes of anemia: chronic disease, other Qualified Code(s): D63.8 - Anemia in other chronic diseases classified elsewhere (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 Continue wound care. Continue Sodium Thiosulfate. (4) AV fistula thrombosis Current Visit: Yes Status: Acute Qualifiers: Encounter type: subsequent encounter Qualified Code(s): T82.868D - Thrombosis due to vascular prosthetic devices, implants and grafts, subsequent encounter Subjective Principal diagnosis: generalized weakness Interval history: Patient seen on dialysis. No new complaints. Objective - Vital Signs Vital signs: Vital Signs Temp Pulse Resp BP Pulse Ox 02/17/18 12:55 117/75 02/17/18 12:40 118/75 02/17/18 12:25 125/76 02/17/18 12:10 121/83 02/17/18 11:55 125/67 02/17/18 11:40 120/69 02/17/18 11:25 125/75 02/17/18 11:10 126/69 02/17/18 10:55 136/75 02/17/18 10:40 139/71 02/17/18 10:25 135/82 02/17/18 10:10 141/83 02/17/18 09:55 97.5 F L 17 146/75 02/17/18 07:44 16 93 02/17/18 07:29 98.5 F 73 18 142/76 93 02/17/18 04:13 97.6 F 79 16 106/72 97 02/17/18 04:09 97.7 F 73 16 137/75 94 02/17/18 00:36 99.7 F H 77 18 123/70 92 02/16/18 20:25 16 94 02/16/18 19:17 99.6 F 80 16 151/82 92 02/16/18 16:34 98.6 F 81 18 143/84 93 Intake and Output 02/16/18 02/17/18 02/17/18 23:59 07:59 15:59 Intake Total 120 / 120 0 / 0 720 / 720 Output Total 0 / 0 Balance 120 / 120 0 / 0 720 / 720 Intake: Oral 120 / 120 0 / 0 120 / 120 Intake, Rinseback and Flushes 600 / 600 Output: Urine 0 / 0 Other: Meal Dinner Breakfast Percent of Meal Consumed 10% 50% Blood Glucose* 91 87 74 Hemodialysis Net Fluid Removed 3945 (mL) - General Appearance General appearance: Present: well-developed, well-nourished, obese EENT: Present: ATNC Cardiology: Present: regular rate - Lab 02/17/18 06:30 02/17/18 06:30 Most recent lab results ABG pH 7.40 pH Units (7.32-7.45) 02/06/18 14:00 ABG pCO2 30 mmHg (35-45) L 02/06/18 14:00 ABG pO2 85 mmHg (85-104) 02/06/18 14:00 ABG HCO3 18 mEq/L (21-27) L 02/06/18 14:00 ABG O2 Saturation 97 % (95-98) 02/06/18 14:00 Calcium 7.3 mg/dL (8.6-10.3) L 02/17/18 06:30 Phosphorus 5.1 mg/dL (2.7-4.5) H 02/06/18 07:52 Magnesium 2.2 mg/dL (1.6-2.6) 02/13/18 04:05 - VTE Reasons for not Prescribing Prophylaxis: Not indicated-Anticoagulated or INR therapeutic Documentation of Mechanical Device: Intermittent pneumatic compression device Consult Discharge Plan - Plan Additional Instructions: Take medications as prescribed Ensure that you make it to dialysis on Monday, , and Saturdays Referrals: Peter Vicente DO [Primary Care Provider] - Prescriptions: FentaNYL PATCH [Duragesic] 12 mcg TD Q72H 6 Days #2 patch.td72 Gentamicin Sulfate 80 mg IVPB WD #8 mls HYDROcodone/Acet 10/325 mg [[place] 10-325 mg] 1 each PO Q6H PRN 3 Days #12 tablet PRN Reason: Severe Pain
[2018-02-17] MEDS: Sodium Thiosulfate 25 GM in EMPTY BAG 1 EACH IVPB SCH (14:04)
[2018-02-17] MEDS: Acetaminophen 325 MG TABLET PO PRN (14:11)
[2018-02-17 14:18] VITALS: BP 129/76
[2018-02-17] MEDS ORDERED: Gentamicin 100 MG in 0.9 % Sodium Chloride 100 ML IVPB ONE (16:00)
[2018-02-17] MEDS ORDERED: Aminoglycoside Consult 1 EACH MC ONE (19:09)
== END 2018-02-17 19:10 | DRG 711 ==
LOC: EMEROO 07:17 → 2ANU 07:17 → OBSVTOIN 12:10 → SUATTDRO 12:10 → 2ANU 13:10
PROVIDERS: ADMIT Internal Medicine; ATTEND Internal Medicine
PROC: IRPERMA (2018-02-14 12:00)
PROC: ENDOEBX (2018-02-14 13:00)

== ENCOUNTER 2018-03-15 09:58 | Inpatient (IN) ==
--- NOTE | 2018-03-15 10:42 | Emergency Department Note ---
Disposition Clinical Impression: ESRD on hemodialysis Cellulitis Qualifiers: Site of cellulitis: unspecified site Qualified Code(s): L03.90 - Cellulitis, unspecified Anemia in chronic kidney disease (CKD) Qualifiers: Chronic kidney disease stage: on chronic dialysis Qualified Code(s): N18.6 - End stage renal disease Disposition: Still a Patient Condition: Fair Referrals: Peter Vicente DO [Primary Care Provider] - Forms: ED Satisfaction Letter Nausea/Vomiting/Diarrhea HPI - General Chief complaint: ED Nausea/Vomiting/Diarrhea Stated complaint: fever, nausea, diarrhea Time Seen by Provider: 03/15/18 10:02 Source: patient Limitations: no limitations - History of Present Illness HPI Narrative: 43 YO F presenting to ED with fever, N/V, and diarrhea since Monday. 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 She was being treated at a rehab facility for her extensive calciphylaxis wounds, however she left AMA on monday and her partner has been managing the wounds. She says that she has shortness of breath. Stools are brown and runny. Denies sick contacts. On dialysis, last treatment was 5 days ago, was supposed to go in today. Pt Subjective Complaint: nausea, diarrhea Description of Diarrhea: water - Related Data Home Medications Medication Instructions Recorded Confirmed Albuterol Sulfate [Albuterol 2 puff IH Q4H PRN 09/09/16 03/15/18 Inhaler] Amiodarone [Cordarone] 200 mg PO DAILY 09/09/16 03/15/18 Atorvastatin [Lipitor] 40 mg PO HS 09/09/16 03/15/18 Budesonide/Formoterol 160/4.5 2 puff IH BIDR 09/09/16 03/15/18 [Symbicort 160/4.5] Ipratropium/Albuterol Neb [Duoneb] 3 ml IH QID PRN 09/09/16 03/15/18 Levothyroxine Sodium [Synthroid] 200 mcg PO QAM 09/09/16 03/15/18 Omeprazole [PriLOSEC] 20 mg PO DAILY 09/09/16 03/15/18 cloNIDine HCl [Clonidine HCl] 0.3 mg PO TID 09/09/16 03/15/18 hydrALAZINE [HydrALAZINE] 50 mg PO BID 09/09/16 03/15/18 predniSONE [PredniSONE] 10 mg PO DAILY 09/09/16 03/15/18 Acetaminophen [Acetaminophen ER] 650 mg PO Q4H PRN 12/23/16 03/15/18 Montelukast [Singulair] 10 mg PO DAILY 02/16/17 03/15/18 Amlodipine Besylate 5 mg PO BID 01/07/18 03/15/18 Folic Acid 1 mg PO DAILY 01/07/18 03/15/18 Metoprolol Succinate [Toprol Xl] 25 mg PO DAILY 01/07/18 03/15/18 Potassium Chloride 20 meq PO DAILY 01/07/18 03/15/18 Previous Rx's Medication Instructions Recorded Apixaban [Eliquis] 5 mg PO BID #60 tablet 01/18/18 Collagenase Oint [Santyl] 1 appl TP HS tube 02/16/18 Darbepoetin [Aranesp] 60 mcg SQ QWEEK syringe 02/16/18 FentaNYL PATCH [Duragesic] 12 mcg TD Q72H 6 Days #2 patch.td72 02/16/18 Ferrous Sulfate 325 mg PO DAILY tablet 02/16/18 Gentamicin Oint [Garamycin] 1 appl TP 2100 tube 02/16/18 HYDROcodone/Acet 10/325 mg [[place] 1 each PO Q6H PRN 3 Days #12 tablet 02/16/18 10-325 mg] Allergies Allergy/AdvReac Type Severity Reaction Status Date / Time heparin Allergy See Verified 01/07/18 13:14 Comments Warfarin [From Coumadin] Allergy Anaphylaxis Verified 03/15/18 10:15 Past Medical History - Past Medical History Medical history: Reports: asthma, atrial fibrillation, diabetes, dialysis, GI bleed, hyperlipidemia, hypertension, renal disease, thyroid disease Surgical history: Reports: appendectomy, cholecystectomy, thyroidectomy, transplant, other Psychiatric history: Reports: no psych history 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 Absent: wheezes, accessory muscle use, prolonged expiratory phase - Cardiovascular Cardiovascular exam: Present: normal rhythm, tachycardia, normal heart sounds. Absent: irregular rhythm - Skin Skin exam: Present: other (Mutiple wounds due to calciphyaxis, covered with bandages.) Course Course Narrative: 43 YO F presenting with N/V, diarrhea, SOB, fever - most likely due to infection. Unsure of source of infection. Will order blood cultures and put on 4.5g Zosyn and 1g vanc. - Reevaluation(s) Reevaluation #1: Spoke with hospitalist Dr. Mcdaniel, and they are okay to admit her. Per his recommendations we will put in a nephrology consult so that she can be dialyzed. Reevaluation #2: Patient has episodes of afib but has converted back normally. Has history of afib on metoprolol. Order for 25MG BID for right now. Order for 25mg 9AM was given my IM primary team, nurse notified to administer dose. Reevaluation #3: Spoke with hip hop dance instructor. He will dialize her tomorrow - okay to wait since she is not fluid overloaded and has normal potassium level. Vital Signs Temperature 99.5 F 03/15/18 10:04 Pulse Rate 103 03/15/18 10:04 Respiratory Rate 16 03/15/18 10:04 Blood Pressure 136/79 03/15/18 10:04 O2 Sat by Pulse Oximetry 98 03/15/18 10:04 Temperature 99.5 F 03/15/18 10:04 Pulse Rate 127 03/15/18 18:03 Respiratory Rate 18 03/15/18 18:03 Blood Pressure 115/73 03/15/18 18:03 O2 Sat by Pulse Oximetry 98 03/15/18 18:03 Oxygen Delivery Oxygen Delivery Room Air Nausea/Vomiting/Diarrhea - Lab Data Result diagrams: 03/15/18 11:27 03/15/18 11:27 Lab Results 03/15/18 03/15/18 03/15/18 Range/Units 11:27 11:27 11:27 WBC 9.5 (4.3-11.1) K/mcL RBC 2.30 L (3.82-4.97) M/mcL Hgb 7.4 L (11.5-15.4) g/dL Hct 22.6 L (35.3-44.9) % MCV 98.3 (83.0-100.0) fL MCH 32.2 (28.0-33.3) pg MCHC 32.7 (31.6-35.5) g/dL RDW 16.9 H (11.5-14.5) % Plt Count 153 (140-400) K/mcL MPV 9.7 (9.4-12.4) fL Seg Neutrophils % 86.0 % Band Neutrophils % 4.0 (0-4) % Lymphocytes % 4.0 % Monocytes % 6.0 % Neutrophils # 8.6 (1.6-8.9) K/mcL Lymphocytes # 0.4 L (0.6-4.6) K/mcL Monocytes # 0.6 (0.0-1.3) K/mcL Platelet Estimate Normal (Normal) Sodium 140 (136-145) mEq/L Potassium 3.7 (3.5-5.1) mEq/L Chloride 95 L (98-107) mEq/L Carbon Dioxide 16 L (23-29) mEq/L BUN 40 H (6-20) mg/dL Creatinine 8.49 H (0.60-1.20) mg/dL Est GFR ( Amer) 6 L (> 60) Est GFR (Non-Af Amer) 5 L (> 60) BUN/Creatinine Ratio 5 L (6-26) Glucose 49 L (70-105) mg/dL Calculated Osmolality 297 (280-300) Lactic Acid 1.3 (0.5-2.2) mmol/L Calcium 8.6 (8.6-10.3) mg/dL Total Bilirubin 0.5 (0.3-1.0) mg/dL AST 8 L (13-39) Units/L ALT 3 L (7-52) Units/L Alkaline Phosphatase 129 H (34-104) Units/L Serum Total Protein 5.7 L (6.4-8.9) g/dL Albumin 2.2 L (3.5-5.7) g/dL Globulin 3.5 (2.4-3.5) g/dL Albumin/Globulin Ratio 0.6 L (1.1-2.2)
[2018-03-15] MEDS ORDERED: Piperacillin/Tazobactam 4.5 GM in 0.9 % Sodium Chloride Mini Bag 100 ML IVPB ONE (10:55)
--- NOTE | 2018-03-15 11:12 | Emergency Department Note ---
Disposition Clinical Impression: ESRD on hemodialysis Cellulitis Qualifiers: Site of cellulitis: unspecified site Qualified Code(s): L03.90 - Cellulitis, unspecified Disposition: Admitted As Inpatient Referrals: Peter Vicente DO [Primary Care Provider] - Forms: ED Satisfaction Letter General Adult HPI - General Chief complaint: ED Nausea/Vomiting/Diarrhea Stated complaint: fever, nausea, diarrhea Time Seen by Provider: 03/15/18 10:02 Source: patient Limitations: no limitations - History of Present Illness Pain Scale: 8 - Related Data Home Medications Medication Instructions Recorded Confirmed Albuterol Sulfate [Albuterol 2 puff IH Q4H PRN 09/09/16 03/15/18 Inhaler] Amiodarone [Cordarone] 200 mg PO DAILY 09/09/16 03/15/18 Atorvastatin [Lipitor] 40 mg PO HS 09/09/16 03/15/18 Budesonide/Formoterol 160/4.5 2 puff IH BIDR 09/09/16 03/15/18 [Symbicort 160/4.5] Ipratropium/Albuterol Neb [Duoneb] 3 ml IH QID PRN 09/09/16 03/15/18 Levothyroxine Sodium [Synthroid] 200 mcg PO QAM 09/09/16 03/15/18 Omeprazole [PriLOSEC] 20 mg PO DAILY 09/09/16 03/15/18 cloNIDine HCl [Clonidine HCl] 0.3 mg PO TID 09/09/16 03/15/18 hydrALAZINE [HydrALAZINE] 50 mg PO BID 09/09/16 03/15/18 predniSONE [PredniSONE] 10 mg PO DAILY 09/09/16 03/15/18 Acetaminophen [Acetaminophen ER] 650 mg PO Q4H PRN 12/23/16 03/15/18 Montelukast [Singulair] 10 mg PO DAILY 02/16/17 03/15/18 Amlodipine Besylate 5 mg PO BID 01/07/18 03/15/18 Folic Acid 1 mg PO DAILY 01/07/18 03/15/18 Metoprolol Succinate [Toprol Xl] 25 mg PO DAILY 01/07/18 03/15/18 Potassium Chloride 20 meq PO DAILY 01/07/18 03/15/18 Previous Rx's Medication Instructions Recorded Apixaban [Eliquis] 5 mg PO BID #60 tablet 01/18/18 Collagenase Oint [Santyl] 1 appl TP HS tube 02/16/18 Darbepoetin [Aranesp] 60 mcg SQ QWEEK syringe 02/16/18 FentaNYL PATCH [Duragesic] 12 mcg TD Q72H 6 Days #2 patch.td72 02/16/18 Ferrous Sulfate 325 mg PO DAILY tablet 02/16/18 Gentamicin Oint [Garamycin] 1 appl TP 2100 tube 02/16/18 HYDROcodone/Acet 10/325 mg [[place] 1 each PO Q6H PRN 3 Days #12 tablet 02/16/18 10-325 mg] Allergies Allergy/AdvReac Type Severity Reaction Status Date / Time heparin Allergy See Verified 01/07/18 13:14 Comments Warfarin [From Coumadin] Allergy Anaphylaxis Verified 03/15/18 10:15 Past Medical History - Past Medical History Medical history: Reports: asthma, atrial fibrillation, diabetes, dialysis, GI bleed, hyperlipidemia, hypertension, renal disease, thyroid disease Surgical history: Reports: appendectomy, cholecystectomy, thyroidectomy, transplant, other Psychiatric history: Reports: no psych history 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: bilateral tubal 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 - Social History Smoking Status: Never smoker Smokeless Tobacco Status: No Alcohol use: Reports: none Drug use: Reports: none Physical Exam - General Limitations: no limitations General appearance: alert Course Vital Signs Temperature 99.5 F 03/15/18 10:04 Pulse Rate 103 03/15/18 10:04 Respiratory Rate 16 03/15/18 10:04 Blood Pressure 136/79 03/15/18 10:04 O2 Sat by Pulse Oximetry 98 03/15/18 10:04 Temperature 99.5 F 03/15/18 10:04 Pulse Rate 127 03/15/18 18:03 Respiratory Rate 18 03/15/18 18:03 Blood Pressure 115/73 03/15/18 18:03 O2 Sat by Pulse Oximetry 98 03/15/18 18:03 Oxygen Delivery Oxygen Delivery Room Air Medical Decision Making - Lab Data Result diagrams: 03/15/18 11:27 03/15/18 11:27 Lab Results 03/15/18 03/15/18 03/15/18 Range/Units 11:27 11:27 11:27 WBC 9.5 (4.3-11.1) K/mcL RBC 2.30 L (3.82-4.97) M/mcL Hgb 7.4 L (11.5-15.4) g/dL Hct 22.6 L (35.3-44.9) % MCV 98.3 (83.0-100.0) fL MCH 32.2 (28.0-33.3) pg MCHC 32.7 (31.6-35.5) g/dL RDW 16.9 H (11.5-14.5) % Plt Count 153 (140-400) K/mcL MPV 9.7 (9.4-12.4) fL Seg Neutrophils % 86.0 % Band Neutrophils % 4.0 (0-4) % Lymphocytes % 4.0 % Monocytes % 6.0 % Neutrophils # 8.6 (1.6-8.9) K/mcL Lymphocytes # 0.4 L (0.6-4.6) K/mcL Monocytes # 0.6 (0.0-1.3) K/mcL Platelet Estimate Normal (Normal) Sodium 140 (136-145) mEq/L Potassium 3.7 (3.5-5.1) mEq/L Chloride 95 L (98-107) mEq/L Carbon Dioxide 16 L (23-29) mEq/L BUN 40 H (6-20) mg/dL Creatinine 8.49 H (0.60-1.20) mg/dL Est GFR ( Amer) 6 L (> 60) Est GFR (Non-Af Amer) 5 L (> 60) BUN/Creatinine Ratio 5 L (6-26) Glucose 49 L (70-105) mg/dL Calculated Osmolality 297 (280-300) Lactic Acid 1.3 (0.5-2.2) mmol/L Calcium 8.6 (8.6-10.3) mg/dL Total Bilirubin 0.5 (0.3-1.0) mg/dL AST 8 L (13-39) Units/L ALT 3 L (7-52) Units/L Alkaline Phosphatase 129 H (34-104) Units/L Serum Total Protein 5.7 L (6.4-8.9) g/dL Albumin 2.2 L (3.5-5.7) g/dL Globulin 3.5 (2.4-3.5) g/dL Albumin/Globulin Ratio 0.6 L (1.1-2.2) Critical Care Time Critical Care Time: No Attestation Statement - Attestation Attestation: I examined this patient and my medical decision-making was reviewed with the BALL MILL OPERATOR/PA/Advanced Practice Nurse/Resident Physician. I agree with the documented findings, disposition and treatment plan as described except to the extent set forth below. The patient has a history of end-stage renal disease and presents with vomiting and she also had a temperature home 100.1 degrees and does have multiple infected purulent skid have assesses the worst of which is the left abdominal area and the patient will be admitted on IV antibiotics as well as labs including lactate level and blood cultures and she has not had dialysis in the last 5 days. The wounds are extremely malodorous. She is here with her boyfriend and her son. She is not confused. Old records have been reviewed. 1114 I did review the patient's EKG showing normal sinus rhythm with rate of 91 without acute ischemic change. I do not see evidence of QRS widening or peaked T waves or other evidence of arrhythmia secondary to hyperkalemia. 1159
[2018-03-15] MEDS ORDERED: Piperacillin/Tazobactam 3.375 GM in 0.9 % Sodium Chloride Mini Bag 100 ML IVPB ONE (11:15)
[2018-03-15] MEDS ORDERED: Ondansetron 4 MG/2 ML VIAL IVP ONE (11:39)
[2018-03-15 11:51] LABS: Hematocrit 22.6 % (35.3-44.9); Hemoglobin 7.4 g/dL (11.5-15.4); Mean Corpuscular HGB Conc 32.7 g/dL (31.6-35.5); Mean Corpuscular Hemoglobin 32.2 pg (28.0-33.3); Mean Corpuscular Volume 98.3 fL (83.0-100.0); Mean Platelet Volume 9.7 fL (9.4-12.4); Platelet Count 153 K/mcL (140-400); Red Cell Distribution Width 16.9 % (11.5-14.5)
[2018-03-15 12:15] LABS: Albumin 2.2 g/dL (3.5-5.7); Albumin/Globulin Ratio 0.6 (1.1-2.2); Bilirubin,Total 0.5 mg/dL (0.3-1.0); Calcium 8.6 mg/dL (8.6-10.3); Globulin 3.5 g/dL (2.4-3.5); Potassium 3.7 mEq/L (3.5-5.1); Total Protein 5.7 g/dL (6.4-8.9)
[2018-03-15 12:22] LABS: Lymphocytes # 0.4 K/mcL (0.6-4.6); Monocytes # 0.6 K/mcL (0.0-1.3); Neutrophils # 8.6 K/mcL (1.6-8.9); Platelet Estimate Normal (Normal)
[2018-03-15] MEDS ORDERED: Isovue-370 500 ML INFUS..BTL IV ONE (12:47)
[2018-03-15] MEDS ORDERED: Naloxone 0.4 MG/ML INJ IVP PRN (15:49)
[2018-03-15] MEDS ORDERED: Ipratropium/Albuterol Neb 3 ML IH PRN (15:52)
[2018-03-15] MEDS ORDERED: *HR* FentaNYL PATCH 12 MCG PATCH TD SCH (16:00)
[2018-03-15] MEDS ORDERED: DARBEPOETIN ALFA SQ SCH (16:00)
--- NOTE | 2018-03-15 17:03 | Internal Med History&Physical ---
Date of Encounter: 03/15/18 Time of Encounter: 04:30 Internal Medicine - H&P: HPI Chief complaint: nausea, vomiting and diarrhea for about 2 days and abdominal ulcers History of present illness: Ms. Alexis is a 43 year old female with pomh of ESRD-DD, calciphylaxis with multiple abdominal ulcers with recurrent admissions for these ulcers. She has been managed for calciphylaxis with infected necrotic abdominal wound growing pseudomonas, proteus and E. coli ESBL. She was discharged to rehab on gentamicin with dialysis but says she left the rehab because they weren't nice. She began to have nausea, vomiting and occasional diarrhea since monday. Last dialysis was on monday and she missed her subsequent dialysis on monday because she wasn't feeling well with the nausea and vomiting. She denies any abdominal pain, coughing and any other acute symptoms. She also noticed her abdominal ulcers have been getting worse with a foul odor and worsening drainage. She came to the ER because of the nasuea and vomitng and infected ulcers. In the ER, she was given vanc and zosyn and is being admitted for further management Past Med Surg Social Fam HX - Past Medical History Medical history: asthma, atrial fibrillation, diabetes, dialysis, GI bleed, hyperlipidemia, hypertension, renal disease, thyroid disease Additional medical history: ANEMIA, BLEEDING ULCER,. KIDNEY DIALYSIS Psychiatric history: no psych history - Past Surgical History Surgical History: appendectomy, cholecystectomy, thyroidectomy, transplant, other Additional surgical history: KIDNEY TRANSPLANT 2007, TUBAL LIGATION, shunt danya - Social History Smoking Status: Never smoker Smokeless Tobacco Status: No Alcohol use: none Drug use: none - Family History Father Adopted: No Family Member Ethnicity: Non- Living Status: Hx Family Cardiac Disorders: Yes Hx Family Respiratory Disorders: Yes Hx Family Cancer: Yes Hx Family GI Disorders: No Hx Family Endocrine Disorder: Yes Hx Family Neuromuscular Disorders: No Hx Family Neurologic Disorders: No Hx Family HEENT Disorders: No Hx Family Autoimmune Disorders: No Mother Adopted: No Living Status: Hx Family Cardiac Disorders: Yes Hx Family Respiratory Disorders: No Hx Family Cancer: Yes Hx Family GI Disorders: No Hx Family Endocrine Disorder: No Hx Family Neuromuscular Disorders: No Hx Family Neurologic Disorders: No Hx Family HEENT Disorders: No Hx Family Autoimmune Disorders: No Internal Medicine - H&P: Meds Albuterol Sulfate [Albuterol Inhaler] 2 puff IH Q4H PRN 09/09/16 [History] Amiodarone [Cordarone] 200 mg PO DAILY 09/09/16 [History] Atorvastatin [Lipitor] 40 mg PO HS 09/09/16 [History] Budesonide/Formoterol 160/4.5 [Symbicort 160/4.5] 2 puff IH BIDR 09/09/16 [ History] Ipratropium/Albuterol Neb [Duoneb] 3 ml IH QID PRN 09/09/16 [History] Levothyroxine Sodium [Synthroid] 200 mcg PO QAM 09/09/16 [History] Omeprazole [PriLOSEC] 20 mg PO DAILY 09/09/16 [History] cloNIDine HCl [Clonidine HCl] 0.3 mg PO TID 09/09/16 [History] hydrALAZINE [HydrALAZINE] 50 mg PO BID 09/09/16 [History] predniSONE [PredniSONE] 10 mg PO DAILY 09/09/16 [History] Acetaminophen [Acetaminophen ER] 650 mg PO Q4H PRN 12/23/16 [History] Montelukast [Singulair] 10 mg PO DAILY 02/16/17 [History] Amlodipine Besylate 5 mg PO BID 01/07/18 [History] Folic Acid 1 mg PO DAILY 01/07/18 [History] Metoprolol Succinate [Toprol Xl] 25 mg PO DAILY 01/07/18 [History] Potassium Chloride 20 meq PO DAILY 01/07/18 [History] Apixaban [Eliquis] 5 mg PO BID #60 tablet 01/18/18 [Rx] Collagenase Oint [Santyl] 1 appl TP HS tube 02/16/18 [Rx] Darbepoetin [Aranesp] 60 mcg SQ QWEEK syringe 02/16/18 [Rx] FentaNYL PATCH [Duragesic] 12 mcg TD Q72H 6 Days #2 patch.td72 02/16/18 [Rx] Ferrous Sulfate 325 mg PO DAILY tablet 02/16/18 [Rx] Gentamicin Oint [Garamycin] 1 appl TP 2100 tube 02/16/18 [Rx] HYDROcodone/Acet 10/325 mg [[place] 10-325 mg] 1 each PO Q6H PRN 3 Days #12 tablet 02/16/18 [Rx] 3 Allergy/AdvReac Type Severity Reaction Status Date / Time heparin Allergy See Verified 01/07/18 13:14 Comments Warfarin [From Coumadin] Allergy Anaphylaxis Verified 03/15/18 10:15 All Systems PM: A 10-system review of systems was performed and is negative for pertinent findings except as documented above in the HPI. - Constitutional Constitutional: chills, fever(s), no night sweats - EENT Eyes: no change in vision, no discharge, no pain, no photophobia Ears: no ear discharge, no ear pain, no tinnitus Nose, mouth and throat: no dysphagia, no nasal discharge, no neck pain, no sore throat - Cardiovascular Cardiovascular ROS IM: dyspnea, no chest pain, no diaphoresis, no lightheadedness, no palpitations, no syncope - Respiratory Respiratory: no cough, no dyspnea, no wheezing, no excessive phlegm production - Gastrointestinal Gastrointestinal: diarrhea, nausea, vomiting, no abdominal pain, no hematemesis , no hematochezia, no melena - Genitourinary Genitourinary: no change in urinary stream, no dysuria, no flank pain, no hematuria - Musculoskeletal Musculoskeletal ROS IM: no numbness, no tingling - Integumentary Integumentary IM: skin ulcer, no rash, no unusual bruising - Neurological Neurological ROS: no confusion, no convulsions, no focal weakness, no numbness, no tingling, no tremor(s) - Hematologic/Lymphatic Hematologic/Lymphatic: no easy bruising - Constitutional Vitals: Temp Pulse Resp BP Pulse Ox 99.5 F 94 23 120/53 97 03/15/18 10:04 03/15/18 15:04 03/15/18 15:04 03/15/18 15:04 03/15/18 15:04 General appearance: Present: disheveled, obese Exam: Gen - Awake, alert, oriented x 3, no acute distress HEENT - NCAT, PERRLA, EOMI, hearing grossly intact, oropharynx benign CV - RRR, normal S1 and S2, no M/R/G, no BLE edema Resp - Normal WOB, CTAB, no W/R/R GI - Soft, NT/ND, obese abdomen with foul smelling ulcers Skin - Warm, dry, no rashes/lesions/ulcers Psych - Normal mood and affect, no depression or anxiety - Head Head exam: Present: atraumatic, normocephalic - Eye Eye exam: Present: PERRL, conjuntiva pink, sclera anicteric Pupils: Present: PERRL - Neck Neck exam general surgery: Present: supple, trachea midline. Absent: lymphadenopathy - Respiratory Respiratory exam: Present: CTAB. Absent: accessory muscle use, rales, rhonchi, wheezes - Cardiovascular Cardiovascular exam: Present: RRR, +S1, +S2. Absent: diastolic murmur, gallop, rubs, systolic murmur - GI/Abdominal GI/Abdominal exam: Present: normal bowel sounds, soft, no peritoneal signs. Absent: distended, tenderness Additional comments: Obese abdomen with foul smelling draining ulcers on the left side - Extremities Exam Extremities exam: Present: warm, radial pulses palpable and symmetrical. Absent : calf tenderness, cyanotic, pedal edema - Neurological Exam Neurological exam: Present: CN II-XII intact, oriented X3, no focal deficits. Absent: pronater drift, facial droop, speech deficit - Skin Skin exam: Present: dry, intact Internal Med - H&P Results - Labs CBC & Chem 7: 03/15/18 11:27 03/15/18 11:27 Labs: Short CBC 03/15/18 Range/Units 11:27 WBC 9.5 (4.3-11.1) K/mcL Hgb 7.4 L (11.5-15.4) g/dL Hct 22.6 L (35.3-44.9) % Plt Count 153 (140-400) K/mcL Neutrophils # 8.6 (1.6-8.9) K/mcL BMP 03/15/18 11:27 Sodium 140 Potassium 3.7 Chloride 95 L Carbon Dioxide 16 L BUN 40 H Creatinine 8.49 H Glucose 49 L Calcium 8.6 Liver Function 03/15/18 Range/Units 11:27 Total Bilirubin 0.5 (0.3-1.0) mg/dL AST 8 L (13-39) Units/L ALT 3 L (7-52) Units/L Alkaline Phosphatase 129 H (34-104) Units/L Albumin 2.2 L (3.5-5.7) g/dL - Impressions ITS Impressions Abdomen/Pelvis CT 03/15/18 12:47 IMPRESSION: 1. Prominent, multifocal superficial and deep left side anterior abdominal wall wounds with fatty induration. No focal abscess formation is seen. No anterior abdominal muscle wall or peritoneal cavity involvement is seen. 2. Soft tissue and calcific density in the right side of the pelvis is probably related to prior renal transplant. Correlate with clinical history. 3. Small volume bilateral pleural effusion as well as small volume abdominal and pelvic ascites. 4. Mild cardiomegaly. 5. Mild intra and extrahepatic bile duct dilatation status post cholecystectomy typical of reservoir effect. D/ / Osbaldo Sykes / Osbaldo Sykes Interpreting Provider: Osbaldo Sykes - Assessment and plan (1) Wound infection Current Visit: Yes Status: Acute Assessment and plan: Pt has foul smelling draining abdominal ulcers. Has had previous cultures growing enterobacter, proteus and pseudomonas. Has history of non compliance and has been seen in the past by surgery and ID. Will start on vanc and zosyn, btain wound and blood cultures. Will consult surgery, ID and wound care for further management and recommendations (2) ESRD (end stage renal disease) on dialysis Current Visit: No Status: Acute Assessment and plan: Missed dialysis on monday secondary to not feeling well. Consult renal and resume dialysis per schedule (3) Noncompliance with renal dialysis Current Visit: No Status: Acute Assessment and plan: Resume dialysis (4) Calciphylaxis Current Visit: No Status: Chronic Assessment and plan: Nephrology following. has been on sodium thiosulfate in the past. Follow recs (5) Nausea & vomiting Current Visit: Yes Status: Acute Assessment and plan: Possibly secondary to systemic infection vs uremia from missed dialysis. start on zofran. Continue antibiotics and resume dialysis Qualifiers: Vomiting type: unspecified Qualified Code(s): R11.2 - Nausea with vomiting , unspecified (6) Wound, open, abdominal wall, anterior Current Visit: No Status: Acute Assessment and plan: Infected abdominal wound. See #1 Qualifiers: Encounter type: initial encounter Qualified Code(s): S31.109A - Unspecified open wound of abdominal wall, unspecified quadrant without penetration into peritoneal cavity, initial encounter (7) Anemia in chronic kidney disease (CKD) Current Visit: No Status: Chronic Assessment and plan: Monitor CBC. Continue aranesp. Transfuse for hemoglobin below 7 Qualifiers: Chronic kidney disease stage: on chronic dialysis Qualified Code(s): N18.6 - End stage renal disease; D63.1 - Anemia in chronic kidney disease; Z99.2 - Dependence on renal dialysis (8) DVT prophylaxis Current Visit: No Status: Acute Assessment and plan: On apixaban (9) Afib Current Visit: No Status: Chronic Assessment and plan: Continue apixaban and amiodarone Qualifiers: Atrial fibrillation type: paroxysmal Qualified Code(s): I48.0 - Paroxysmal atrial fibrillation (10) Hypothyroidism Current Visit: Yes Status: Acute Assessment and plan: Continue levothyroxine Qualifiers: Qualified Code(s): E03.9 - Hypothyroidism, unspecified (11) Hypertension Current Visit: Yes Status: Acute Assessment and plan: Continue clonidine Qualifiers: Qualified Code(s): I10 - Essential (primary) hypertension - Time Spent With Patient Total time spent is greater than 50% in coordination of care (as documented) at patient's floor/unit and/or counseling patient:
[2018-03-15] MEDS ORDERED: Piperacillin/Tazobactam 3.375 GM in 0.9 % Sodium Chloride Mini Bag 100 ML IVPB SCH (21:00)
[2018-03-15] MEDS ORDERED: *HR* Dextrose 50 % in Water (Syg) 50 ML SYRINGE ONE (22:58)
[2018-03-15] MEDS ORDERED: *HR* Dextrose 50 % in Water (Syg) 50 ML SYRINGE IVP ONE ×2 (23:07→23:16)
[2018-03-15] MEDS: Budesonide/Formoterol 160/4.5 1 PUFF INH IH SCH (23:12)
[2018-03-15] MEDS: cloNIDine HCl 0.1 MG TABLET PO SCH (23:31)
[2018-03-15] MEDS: Apixaban 5 MG TABLET PO SCH (23:31)
[2018-03-15] MEDS: amLODIPine 5 MG TABLET PO SCH (23:32)
[2018-03-15] MEDS: *HR* HYDROcodone/Acet 10/325 mg TABLET PO PRN (23:32)
[2018-03-15] MEDS: Ondansetron 4 MG/2 ML VIAL IVP SCH (23:33)
[2018-03-15] MEDS: hydrALAZINE 25 MG TABLET PO SCH (23:35)
[2018-03-16] MEDS ORDERED: Piperacillin/Tazobactam 3.375 GM in 0.9 % Sodium Chloride Mini Bag 100 ML IVPB SCH ×2 (00:01→18:00)
[2018-03-16] MEDS ORDERED: D5% in Water 1,000 ML IVC PRN (00:41)
[2018-03-16] MEDS ORDERED: *HR* Dextrose 50 % in Water (Syg) 50 ML SYRINGE IVP PRN (00:41)
[2018-03-16] MEDS ORDERED: Dextrose Gel 15 GM/37.5 ML TUBE PO PRN ×2 (00:41)
[2018-03-16] MEDS: *HR* FentaNYL PATCH 12 MCG PATCH TD SCH (03:16)
[2018-03-16] MEDS: Ondansetron 4 MG/2 ML VIAL IVP SCH ×4 (03:16→18:16)
[2018-03-16 05:21] LABS: Basophils % 0.3 %; Eosinophils # 0.4 K/mcL (0.0-0.6); Eosinophils % 4.4 %; Hematocrit 18.8 % (35.3-44.9); Hemoglobin 6.2 g/dL (11.5-15.4); Immature Granulocytes % 2.7 % (0-4); Lymphocytes # 1.2 K/mcL (0.6-4.6); Lymphocytes % 12.5 %; Mean Corpuscular Hemoglobin 32.3 pg (28.0-33.3); Mean Corpuscular Volume 97.9 fL (83.0-100.0); Mean Platelet Volume 10.1 fL (9.4-12.4); Monocytes # 1.1 K/mcL (0.0-1.3); Monocytes % 12.2 %; Neutrophils # 6.3 K/mcL (1.6-8.9); Nucleated Red Blood Cells 1.1 /100 WBC (0); Platelet Count 124 K/mcL (140-400); Red Blood Count 1.92 M/mcL (3.82-4.97); Segmented Neutrophils % 67.9 %
[2018-03-16 05:42] LABS: Platelet Estimate Slight Decrease (Normal); Toxic Granulation Present (Not Present)
[2018-03-16 05:43] LABS: Anisocytosis 1+ (Not Present); Hypochromasia Present (Not Present)
[2018-03-16 06:00] LABS: Calcium 7.9 mg/dL (8.6-10.3); Magnesium 1.6 mg/dL (1.6-2.6); Phosphorous 5.9 mg/dL (2.7-4.5); Potassium 4.2 mEq/L (3.5-5.1)
[2018-03-16] MEDS ORDERED: 0.9 % Sodium Chloride 250 ML IVC PRN (08:23)
[2018-03-16] MEDS: Budesonide/Formoterol 160/4.5 1 PUFF INH IH SCH ×2 (08:42→20:18)
[2018-03-16 09:28] LABS: Hepatitis B Surface Antigen Nonreactive (Nonreactive)
[2018-03-16] MEDS: Folic Acid 1 MG TABLET PO SCH (10:42)
[2018-03-16] MEDS: hydrALAZINE 25 MG TABLET PO SCH ×2 (10:42→21:53)
[2018-03-16] MEDS: predniSONE 10 MG TABLET PO SCH (10:42)
[2018-03-16] MEDS: *HR* Amiodarone 200 MG TABLET PO SCH (10:42)
[2018-03-16] MEDS: cloNIDine HCl 0.1 MG TABLET PO SCH ×3 (10:42→20:30)
[2018-03-16] MEDS: amLODIPine 5 MG TABLET PO SCH ×2 (10:43→20:30)
[2018-03-16] MEDS: Apixaban 5 MG TABLET PO SCH (10:43)
[2018-03-16] MEDS: Metoprolol XL (24 HR) Succ 25 MG TAB.ER.24H PO SCH (10:43)
--- NOTE | 2018-03-16 10:49 | Internal Med Progress Note ---
Hospitalist Progress Note - Encounter Date of Encounter: 03/16/18 Time of Encounter: 10:45 - Subjective Interval History: No acute events overnight - Exam Vitals: Temp Pulse Resp BP Pulse Ox 98.5 F 78 16 97/64 92 03/16/18 07:37 03/16/18 07:37 03/16/18 07:37 03/16/18 10:43 03/16/18 07:37 Exam: Gen - Awake, alert, oriented x 3, no acute distress HEENT - NCAT, PERRLA, EOMI, hearing grossly intact, oropharynx benign CV - RRR, normal S1 and S2, no M/R/G, no BLE edema Resp - Normal WOB, CTAB, no W/R/R GI - Soft, NT/ND, obese abdomen with foul smelling ulcers Skin - Warm, dry, no rashes/lesions/ulcers Psych - Normal mood and affect, no depression or anxiety - Assessment and Plan (1) Wound infection Current Visit: Yes Status: Acute Assessment and Plan: Pt has foul smelling draining abdominal ulcers. Has had previous cultures growing enterobacter, proteus and pseudomonas. Has history of non compliance and has been seen in the past by surgery and ID. Will start on vanc and zosyn, btain wound and blood cultures. Will consult surgery, ID and wound care for further management and recommendations (2) ESRD (end stage renal disease) on dialysis Current Visit: No Status: Acute Assessment and Plan: Missed dialysis on monday secondary to not feeling well. Consult renal and resume dialysis per schedule (3) Noncompliance with renal dialysis Current Visit: No Status: Acute Assessment and Plan: Resume dialysis (4) Calciphylaxis Current Visit: No Status: Chronic Assessment and Plan: Nephrology following. Resume sodium thiosulfate (5) Nausea & vomiting Current Visit: Yes Status: Acute Assessment and Plan: Possibly secondary to systemic infection vs uremia from missed dialysis. start on zofran. Continue antibiotics and resume dialysis (6) Wound, open, abdominal wall, anterior Current Visit: No Status: Acute Assessment and Plan: Infected abdominal wound. See #1 (7) Anemia in chronic kidney disease (CKD) Current Visit: Yes Status: Chronic Assessment and Plan: Monitor CBC. Continue aranesp. Transfuse for hemoglobin below 7 (8) DVT prophylaxis Current Visit: No Status: Acute Assessment and Plan: On apixaban (9) Afib Current Visit: No Status: Chronic Assessment and Plan: Continue apixaban and amiodarone (10) Hypothyroidism Current Visit: Yes Status: Acute Assessment and Plan: Continue levothyroxine (11) Hypertension Current Visit: Yes Status: Acute Assessment and Plan: Continue clonidine - Time Spent with Patient Total time spent is greater than 50% in coordination of care (as documented) at patient's floor/unit and/or counseling patient: Internal Medicine: Result - Labs CBC & Chem 7: 03/16/18 04:57 03/16/18 04:57 Labs: Short CBC 03/16/18 Range/Units 04:57 WBC 9.3 (4.3-11.1) K/mcL Hgb 6.2 L (11.5-15.4) g/dL Hct 18.8 L (35.3-44.9) % Plt Count 124 L (140-400) K/mcL Neutrophils # 6.3 (1.6-8.9) K/mcL BMP 03/16/18 04:57 Sodium 140 Potassium 4.2 Chloride 95 L Carbon Dioxide 15 L BUN 43 H Creatinine 9.08 H Glucose 71 Calcium 7.9 L Consult Discharge Plan - Plan Referrals: Peter Vicente DO [Primary Care Provider] - (5) Nausea & vomiting Qualifiers: Vomiting type: unspecified Qualified Code(s): R11.2 - Nausea with vomiting, unspecified (6) Wound, open, abdominal wall, anterior Qualifiers: Encounter type: initial encounter Qualified Code(s): S31.109A - Unspecified open wound of abdominal wall, unspecified quadrant without penetration into peritoneal cavity, initial encounter (7) Anemia in chronic kidney disease (CKD) Qualifiers: Chronic kidney disease stage: on chronic dialysis Qualified Code(s): N18.6 - End stage renal disease; D63.1 - Anemia in chronic kidney disease; Z99.2 - Dependence on renal dialysis (9) Afib Qualifiers: Atrial fibrillation type: paroxysmal Qualified Code(s): I48.0 - Paroxysmal atrial fibrillation (10) Hypothyroidism Qualifiers: Qualified Code(s): E03.9 - Hypothyroidism, unspecified (11) Hypertension Qualifiers: Qualified Code(s): I10 - Essential (primary) hypertension
--- NOTE | 2018-03-16 11:30 | Nephrology Consult Note ---
Date of Encounter: 03/16/18 Time of Encounter: 10:00 Assessment and Plan (1) Calciphylaxis Current Visit: Yes Status: Acute Acute on Chronic calciphylaxis Patient is noncompliant with ESRD regimen including HD Severe ulcerations noted on abdominal wall with history of infections with pseudomonas, proteus, ESBL On presentation, patient has not had hemodialysis since Monday. She is several days behind. At this time, she will require urgent hemodialysis today, and also likely tomorrow to catch up We will start sodium thiosulfate today. Consider addition of cinacalcet for treatment of phosphorus Agree with wound care consult Agree with meropenem Check PTH Overall poor prognosis (2) ESRD (end stage renal disease) Current Visit: Yes Status: Chronic ESRD patient, HD scheduled Patient has missed multiple days of HD now We will do urgent HD today with sodium thiosulfate, and likely tomorrow as well Continue to follow (3) Anemia in chronic kidney disease (CKD) Current Visit: Yes Status: Chronic Severe anemia, Hgb 6.2 Patient has been on Arinesp and Ferrous sulfate We recommend transfusion with PRBC at this time Will stop Arinesp and Fe SO4 today, Start 10,000u Epo 3xWeek Qualifiers: Chronic kidney disease stage: on chronic dialysis Qualified Code(s): N18.6 - End stage renal disease; D63.1 - Anemia in chronic kidney disease; Z99.2 - Dependence on renal dialysis History of Present Illness - Reason for Consult Consult date: 03/16/18 end stage renal disease (With calciphylaxis) Requesting physician: El Cha - Chief Complaint Abdominal wound - History of Present Illness Ms. Alexis is a 43yo woman with history of a fib, htn, anemia, and ESRD who presents to the ED with complaints of infected skin ulcers on her abdomen as well as nausea, vomiting and diarrhea for about 2 days duration. She was recently in the hospital and then a SNF for the same problem, however she left the SNF AMA on this previous Monday because she felt that the staff was being rude to her. She has a history of poor compliance with her HD, which is scheduled , and in fact her last HD was Monday as she felt too sick to attend on Monday. She has been treated for these ulcers for some time, and has grown multiple pathogens including pseudomonas, proteus, and ESBL e. coli. She now reports a foul odor and purulent drainage from these sites, as well as necrotic appearing tissue surrounding. When asked about the state of her kidneys , she does admit to right renal transplant, however she states that she no longer makes urine. She has had no urinary symptoms associated with this. She denies fevers, chills, sweats. Past Med Surg Social Fam HX - Past Medical History Medical history: asthma, atrial fibrillation, diabetes, dialysis, GI bleed, hyperlipidemia, hypertension, renal disease, thyroid disease Additional medical history: ANEMIA, BLEEDING ULCER,. KIDNEY DIALYSIS Psychiatric history: no psych history - Past Surgical History Surgical History: appendectomy, cholecystectomy, thyroidectomy, transplant, other Additional surgical history: KIDNEY TRANSPLANT 2007, TUBAL LIGATION, shunt danya - Social History Smoking Status: Never smoker Smokeless Tobacco Status: No Alcohol use: none Drug use: none - Family History Father Adopted: No Family Member Ethnicity: Non- Living Status: Hx Family Cardiac Disorders: Yes Hx Family Respiratory Disorders: Yes Hx Family Cancer: Yes Hx Family GI Disorders: No Hx Family Endocrine Disorder: Yes Hx Family Neuromuscular Disorders: No Hx Family Neurologic Disorders: No Hx Family HEENT Disorders: No Hx Family Autoimmune Disorders: No Mother Adopted: No Living Status: Hx Family Cardiac Disorders: Yes Hx Family Respiratory Disorders: No Hx Family Cancer: Yes Hx Family GI Disorders: No Hx Family Endocrine Disorder: No Hx Family Neuromuscular Disorders: No Hx Family Neurologic Disorders: No Hx Family HEENT Disorders: No Hx Family Autoimmune Disorders: No Medications and Allergies Albuterol Sulfate [Albuterol Inhaler] 2 puff IH Q4H PRN 09/09/16 [History] Amiodarone [Cordarone] 200 mg PO DAILY 09/09/16 [History] Atorvastatin [Lipitor] 40 mg PO HS 09/09/16 [History] Budesonide/Formoterol 160/4.5 [Symbicort 160/4.5] 2 puff IH BIDR 09/09/16 [ History] Ipratropium/Albuterol Neb [Duoneb] 3 ml IH QID PRN 09/09/16 [History] Levothyroxine Sodium [Synthroid] 200 mcg PO QAM 09/09/16 [History] Omeprazole [PriLOSEC] 20 mg PO DAILY 09/09/16 [History] cloNIDine HCl [Clonidine HCl] 0.3 mg PO TID 09/09/16 [History] hydrALAZINE [HydrALAZINE] 50 mg PO BID 09/09/16 [History] predniSONE [PredniSONE] 10 mg PO DAILY 09/09/16 [History] Acetaminophen [Acetaminophen ER] 650 mg PO Q4H PRN 12/23/16 [History] Montelukast [Singulair] 10 mg PO DAILY 02/16/17 [History] Amlodipine Besylate 5 mg PO BID 01/07/18 [History] Folic Acid 1 mg PO DAILY 01/07/18 [History] Metoprolol Succinate [Toprol Xl] 25 mg PO DAILY 01/07/18 [History] Potassium Chloride 20 meq PO DAILY 01/07/18 [History] Apixaban [Eliquis] 5 mg PO BID #60 tablet 01/18/18 [Rx] Collagenase Oint [Santyl] 1 appl TP HS tube 02/16/18 [Rx] Darbepoetin [Aranesp] 60 mcg SQ QWEEK syringe 02/16/18 [Rx] FentaNYL PATCH [Duragesic] 12 mcg TD Q72H 6 Days #2 patch.td72 02/16/18 [Rx] Ferrous Sulfate 325 mg PO DAILY tablet 02/16/18 [Rx] Gentamicin Oint [Garamycin] 1 appl TP 2100 tube 02/16/18 [Rx] HYDROcodone/Acet 10/325 mg [[place] 10-325 mg] 1 each PO Q6H PRN 3 Days #12 tablet 02/16/18 [Rx] 3 Allergy/AdvReac Type Severity Reaction Status Date / Time heparin Allergy See Verified 01/07/18 13:14 Comments Warfarin [From Coumadin] Allergy Anaphylaxis Verified 03/15/18 10:15 Review of Systems Constitutional: fatigue, malaise, no fever(s) Nose, mouth and throat: mouth lesions, mouth pain, no dizziness Cardiovascular: edema, no chest pain Respiratory: no cough, no dyspnea Gastrointestinal: diarrhea, nausea, vomiting, no bloating Genitourinary Female: other (anuria) Musculoskeletal: muscle weakness Integumentary: erythema, lesions (blackened tissue on left middle finger), skin ulcer (abdominal ), swelling, wounds Exam - Vital Signs Vital signs: Initial Vital Signs Temp Pulse Resp BP Pulse Ox 99.5 F 103 16 136/79 98 03/15/18 10:04 03/15/18 10:04 03/15/18 10:04 03/15/18 10:04 03/15/18 10:04 Vital Signs - Last 8 Hours Temp Pulse Resp BP Pulse Ox 03/16/18 07:37 98.5 F 78 16 97/64 92 03/16/18 05:13 99.5 F 83 16 101/60 92 Intake and Output 03/15/18 03/16/18 03/16/18 23:59 07:59 15:59 Intake Total 0 / 0 Balance 0 / 0 Intake: Oral 0 / 0 Other: Meal Breakfast Percent of Meal Consumed 0% Weight 78.6 kg Blood Glucose* 49 72 76 - General Appearance General appearance: appears started age, obese, chronically ill EENT: ATNC, mucous membranes dry (Blackened lesion on left lip angle ) Neck: no JVD, no thyromegaly Cardiology: holosystolic murmur, no rub, no gallops, regular rate, normal S1, normal S2 - Dialysis Access Dialysis Vascular Access: Arteriovenous Fistula thrill: Yes bruit: Yes Additional Comments: Left upper arm Gastrointestinal: no tenderness, no guarding, no organomegaly, no masses, obese Integumentary: ulcer (Multiple ulcers noted on left abdominal fold which are covered. Purulent drainage. Foul odor. Necrotic surrounding tissue. Black necrotic tissue on left third digit.), erythema, hyperpigmentation Neurologic: no focal deficit, alert and oriented x3 Musculoskeletal: no deformities Psychiatric: agitated, cooperative Results - Lab Results 03/16/18 04:57 03/16/18 04:57 Most recent lab results Calcium 7.9 mg/dL (8.6-10.3) L 03/16/18 04:57 Phosphorus 5.9 mg/dL (2.7-4.5) H 03/16/18 04:57 Magnesium 1.6 mg/dL (1.6-2.6) 03/16/18 04:57 Consult Discharge Plan - Plan Referrals: Peter Vicente DO [Primary Care Provider] -
--- NOTE | 2018-03-16 12:21 | Infectious Disease Consult ---
Date of Encounter: 03/16/18 Time of Encounter: 11: Assessment and Plan (1) Wound infection Status: Acute Assessment and plan: History of recent admission 01/06/18 for calciphylaxis with necrotic abdominal wounds. Causative organism: unknown, but likely the five microorganisms recently isolated from wound cultures. Previous wound culture 01/12/18 positive for Pseudomonas, Proteus, and E.coli ESBL. Previous wound culture 02/09/18 positive for Enterobacter cloacae complex, Enterobacter aerogenes, and Proteus. Resistant to zosyn. Blood cultures 03/15 are NGTD. Obtain wound culture. Discontinue vancomycin and zosyn. Start meropenem 500mg q24h. Monitor renal function and for drug toxicity and dose-adjust antibiotics. (2) Nausea & vomiting Status: Resolved Assessment and plan: Possibly secondary to systemic infection or uremia from missed dialysis. Resolved. Qualifiers: Qualified Code(s): R11.2 - Nausea with vomiting, unspecified (3) Diarrhea Status: Resolved Assessment and plan: Resolved. Qualifiers: Qualified Code(s): R19.7 - Diarrhea, unspecified (4) Pleural effusion Status: Acute Assessment and plan: CT abd/pelvis 03/15 showed small volume bilateral pleural effusions and small volume ascites. CXR 03/16 showed increased lung markings, etiology mild pulmonary vascular congestion vs early pneumonia. Patient denies fever, shortness of breath, cough, sputum production. Management per primary team. (5) Calciphylaxis Status: Chronic Assessment and plan: History of calciphylaxis diagnosed in 2017 with multiple necrotic abdominal ulcers. Sodium thiosulfate. Management per Nephrology. (6) ESRD on hemodialysis Status: Chronic Assessment and plan: Unknown etiology. Nephrology consulted and following. (7) Anemia in chronic kidney disease (CKD) Status: Chronic Assessment and plan: Today, Hb is 6.2 On Aranesp. Management per primary team. Qualifiers: Qualified Code(s): N18.6 - End stage renal disease; D63.1 - Anemia in chronic kidney disease; Z99.2 - Dependence on renal dialysis (8) Afib Status: Chronic Assessment and plan: On apixaban and amiodarone. Management per primary team. Qualifiers: Qualified Code(s): I48.0 - Paroxysmal atrial fibrillation (9) Hypothyroidism Status: Chronic Assessment and plan: On levothyroxine. Management per primary team. Qualifiers: Qualified Code(s): E03.9 - Hypothyroidism, unspecified (10) Hypertension Status: Chronic Assessment and plan: Management per primary team. Qualifiers: Qualified Code(s): I10 - Essential (primary) hypertension (11) Hyperlipidemia Status: Chronic Assessment and plan: On atorvastatin. Qualifiers: Qualified Code(s): E78.5 - Hyperlipidemia, unspecified (12) Asthma Status: Chronic Assessment and plan: On singulair and symbicort. Management per primary team. Qualifiers: Qualified Code(s): J45.909 - Unspecified asthma, uncomplicated (13) History of kidney transplant Status: Chronic Assessment and plan: Failed in 2007. Infectious Disease HPI - Data of Consult Consult date: 03/16/18 Requesting Physician: El Cha Primary Care Provider: Peter Vicente DO - Consult Narrative Reason for consult: wound infection History of present illness: Ms. Alexis is a 43 year old female with past medical history of calciphylaxis with multiple abdominal ulcers, ESRD on hemodialysis, anemia of chronic kidney disease, asthma, A-fib, HLD, HTN, hypothyroid, and failed kidney transplant. The patient was admitted to the hospital 03/15/18 for nausea/vomiting and infected abdominal ulcers. We are consulted 03/16/18 for infected ulcers associated with calciphylaxis. Briefly, the patient is a 43 year old female with past medical history as stated above. Review of the medical records indicates that the patient was recently admitted on 01/06/18 for calciphylaxis with necrotic abdominal lesion. Wound culture was positive for Pseudomonas, Proteus, and E.coli ESBL. ID was consulted and patient was treated with gentamicin. Patient was discharged on 01/19 to rehab facility with continuation of gentamicin therapy. Patient left rehab facility AMA on 03/10. On presentation to the ED on 03/15, patient complained of fever, nausea/vomiting , and diarrhea for 2 days. Patient was observed to have multiple purulent and malodorous skin lesions. Patient was tachycardic at 103, and afebrile with normal respiratory rate. WBC count was normal at 9.5. Lactic acid was normal at 1.3. She had blood cultures obtained x2 sets peripherally. CT abd/pelvis showed prominent multifocal superficial and deep wounds on left anterior abdominal wall with fatty induration. There was noted to be mild bilateral pleural effusions and mild ascites. Patient was given vancomycin and zosyn and admitted to the hospital for further evaluation and management. Since admission, tachycardia has resolved. CXR showed increased lung markings, mild pulmonary vascular congestion vs early pneumonia. Nephrology was consulted for help with ESRD on hemodialysis. Surgery, Infectious Disease, and Wound Care were consulted for management of infected ulcers. During my exam today, the patient endorses the history as stated above. Patient states feeling ok. No acute events overnight. Patient reports fever/chills, nausea/vomiting and diarrhea have resolved. Denies pain at wound sites. Denies abdominal pain. Denies chest pain or shortness of breath. Denies cough or sputum production. Denies swelling. Denies oral thrush. CC: El Cha Past Med Surg Social Fam HX - Past Medical History Medical history: asthma, atrial fibrillation, diabetes, dialysis, GI bleed, hyperlipidemia, hypertension, renal disease, thyroid disease Additional medical history: ANEMIA, BLEEDING ULCER,. KIDNEY DIALYSIS Psychiatric history: no psych history - Past Surgical History Surgical History: appendectomy, cholecystectomy, thyroidectomy, transplant, other Additional surgical history: KIDNEY TRANSPLANT 2007, TUBAL LIGATION, shunt danya - Social History Smoking Status: Never smoker Smokeless Tobacco Status: No Alcohol use: none Drug use: none - Family History Father Adopted: No Family Member Ethnicity: Non- Living Status: Hx Family Cardiac Disorders: Yes Hx Family Respiratory Disorders: Yes Hx Family Cancer: Yes Hx Family GI Disorders: No Hx Family Endocrine Disorder: Yes Hx Family Neuromuscular Disorders: No Hx Family Neurologic Disorders: No Hx Family HEENT Disorders: No Hx Family Autoimmune Disorders: No Mother Adopted: No Living Status: Hx Family Cardiac Disorders: Yes Hx Family Respiratory Disorders: No Hx Family Cancer: Yes Hx Family GI Disorders: No Hx Family Endocrine Disorder: No Hx Family Neuromuscular Disorders: No Hx Family Neurologic Disorders: No Hx Family HEENT Disorders: No Hx Family Autoimmune Disorders: No Infectious Disease-CN:Meds Albuterol Sulfate [Albuterol Inhaler] 2 puff IH Q4H PRN 09/09/16 [History] Amiodarone [Cordarone] 200 mg PO DAILY 09/09/16 [History] Atorvastatin [Lipitor] 40 mg PO HS 09/09/16 [History] Budesonide/Formoterol 160/4.5 [Symbicort 160/4.5] 2 puff IH BIDR 09/09/16 [ History] Ipratropium/Albuterol Neb [Duoneb] 3 ml IH QID PRN 09/09/16 [History] Levothyroxine Sodium [Synthroid] 200 mcg PO QAM 09/09/16 [History] Omeprazole [PriLOSEC] 20 mg PO DAILY 09/09/16 [History] cloNIDine HCl [Clonidine HCl] 0.3 mg PO TID 09/09/16 [History] hydrALAZINE [HydrALAZINE] 50 mg PO BID 09/09/16 [History] predniSONE [PredniSONE] 10 mg PO DAILY 09/09/16 [History] Acetaminophen [Acetaminophen ER] 650 mg PO Q4H PRN 12/23/16 [History] Montelukast [Singulair] 10 mg PO DAILY 02/16/17 [History] Amlodipine Besylate 5 mg PO BID 01/07/18 [History] Folic Acid 1 mg PO DAILY 01/07/18 [History] Metoprolol Succinate [Toprol Xl] 25 mg PO DAILY 01/07/18 [History] Potassium Chloride 20 meq PO DAILY 01/07/18 [History] Apixaban [Eliquis] 5 mg PO BID #60 tablet 01/18/18 [Rx] Collagenase Oint [Santyl] 1 appl TP HS tube 02/16/18 [Rx] Darbepoetin [Aranesp] 60 mcg SQ QWEEK syringe 02/16/18 [Rx] FentaNYL PATCH [Duragesic] 12 mcg TD Q72H 6 Days #2 patch.td72 02/16/18 [Rx] Ferrous Sulfate 325 mg PO DAILY tablet 02/16/18 [Rx] Gentamicin Oint [Garamycin] 1 appl TP 2100 tube 02/16/18 [Rx] HYDROcodone/Acet 10/325 mg [[place] 10-325 mg] 1 each PO Q6H PRN 3 Days #12 tablet 02/16/18 [Rx] 3 Allergy/AdvReac Type Severity Reaction Status Date / Time heparin Allergy See Verified 01/07/18 13:14 Comments Warfarin [From Coumadin] Allergy Anaphylaxis Verified 03/15/18 10:15 Review of systems: 10 point review of systems done, negative other for what is mentioned in history of present illness Exam - Constitutional Vitals: Temp Pulse Resp BP Pulse Ox 98.4 F 76 19 99/58 96 03/16/18 11:30 03/16/18 11:30 03/16/18 11:30 03/16/18 11:30 03/16/18 11:30 General appearance: cooperative, no acute distress, obese, no febrile - Head Head exam: Present: atraumatic, normal inspection, normocephalic - Eye Eye exam: Present: EOMI, normal appearance, PERRL Pupils: Present: normal accommodation - ENT ENT exam: Present: mucous membranes moist - Neck Neck exam: Present: normal inspection - Respiratory Respiratory exam: Present: CTAB. Absent: rales, respiratory distress, rhonchi, wheezes - Cardiovascular Cardiovascular exam: Present: RRR, +S1, +S2 - GI/Abdominal GI/Abdominal exam: Present: distended (obese), normal bowel sounds, soft. Absent: tenderness - Extremities Exam Extremities exam: Absent: joint swelling, normal inspection, pedal edema, tenderness (Necrotic lesions bilateral lower extremities ) - Neurological Exam Neurological exam: Present: altered, oriented X3 - Psychiatric Psychiatric exam: Present: normal affect, normal mood - Skin Skin exam: Present: dry, normal color, warm. Absent: erythema, rash (Purulent and malodorous necrotic ulcers on abdominal pannus and left inner thigh. Purulent ulcers are dressed. Nonpurulent necrotic lesions noted on right breast , right thigh, and left third digit. ) Infectious Disease CN: Results - Labs CBC & Chem 7: 03/16/18 04:57 03/16/18 04:57 Serology: Serology 03/16/18 Range/Units 08:08 Hep Bs Antigen Nonreactive (Nonreactive) Hep Bs Antibody 0.00 mIU/mL Consult Discharge Plan - Plan Referrals: Peter Vicente DO [Primary Care Provider] - - Attending Attestation I examined this patient and my medical decision-making was reviewed with the Resident Physician. I agree with the documented findings, disposition and treatment plan as described except to the extent set forth below. This is an addendum to original report dictated by resident physician. Please refer to resident's note for full detail. Patient with past medical history known for calciphylaxis and has been treated by wound care came in with nausea vomiting and fever. Patient was started on Zosyn and vancomycin and she states she is doing clinically much better. I did review the cultures from previous admissions and multiple organisms were resistant to Zosyn including the Enterobactera erogenes and E cloacae yet patient improved on the vancomycin and Zosyn. I am not sure if the vancomycin and Zosyn were treating anything or the patient was having gastroenteritis and her symptoms resolved. This really hard to decipher. In the meantime wound care is involved undergoing aggressive treatment. I did switch her to meropenem and dose adjusted based on her creatinine clearance. I think of the patient's stable she mitis be switched to oral Levaquin or even no treatment at all other than topical treatment. Prognosis poor on this patient because her calciphylaxis is really advanced
[2018-03-16] MEDS: SODIUM THIOSULFATE IVPB ONE ×2 (12:33→18:35)
--- NOTE | 2018-03-16 14:32 | Event Note ---
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 She admits discontinuing care AMA on 03/10 and has used Santyl and Gentamycin during the week since. Full consult to follow. A survey of current lesions was performed with measurements taken by Mayela Victoria CNP. These included: -L Abdomen: 22cm long by 7cm wide; Purulence and Eschar present w/o tunneling -Mid Lower Abdomen: 6cm long by 5cm wide; Purulent drainage w/o Eschar -L Inner Thigh: 10cm by 7cm tall; Eschar present -R Lateral Thigh (2 Lesions): 1) 5cm by 3cm; Unstageable; 2) 2cm by 2cm; Unstageable -R Groin (inguinal crease): 7cm by 4cm; Tunneling w/ purulent drainage from an origin at 2 o'clock -R Hip (over trochanter): 14cm by 2cm; Sloughing w/ purulent drainage -L Hand (middle digit): Distal phalanx 2cm by 2cm, Tip of finger 1cm by 1cm -Mouth (lower lip, L corner of mouth): superficial, dimensions not taken <William Mcknight - Last Filed: 03/16/18 18:53> Date of Encounter: 03/16/18 I examined this patient and my medical decision-making was reviewed with the Resident Physician. I agree with the documented findings, disposition and treatment plan as described except to the extent set forth below. The patient is seen and evaluated on afternoon rounds with the resident and the clinical nurse practitioner. She has diffuse necrotic severe wounds consistent with calciphylaxis. Aggressive debridement is contraindicated. We will continue to support her as well as possible with local wound care. William Mcknight MD FACS
--- NOTE | 2018-03-16 15:39 | Event Note ---
Date of Encounter: 03/16/18 Time of Encounter: 15:36 Full consult to follow. Event notes evaluated this patient for wound care. Wound care orders placed and reviewed with bedside RNAleksandra. No surgical intervention indicated. Patient with known calciphylaxis that is currently with infected lesions. As previously recommended, a palliative care consult remains the recommendations as calciphylaxis has a greater than 80% mortality rate.
[2018-03-16 16:56] LABS: INR 1.9; Prothrombin Time 21.2 Seconds (9.4-12.1)
--- NOTE | 2018-03-16 17:31 | General Surgery Consult Note ---
<Donnie Herrmann R - Last Filed: 03/16/18 17:18> Date of Encounter: 03/16/18 Time of Encounter: 15:00 Assessment and Plan (1) Wound infection Current Visit: Yes Status: Acute Wound Care management: -Wound care orders in for Left abdomen, right abdomen, trochteric region and groin. To apply Dakin and dress wounds as indicated in the wound care order -Continue antibiotics as managed by infectious diseases -Pending wound and blood culture results -Comfort care and pain management -due to poor prognosis and progression of calciphylaxis have discussed palliative care options with patient. She is not interested in these options at this time. History of Present Illness Consult date: 03/16/18 (Dr. Mcknight) History of present illness: Ms. Alexis is a 43 y.o. female with know history of calciphylaxis and ESRD on dialysis, she has been evaluated by our surgical team in the past. She presents to ED on 03-15-18 for evaluation of necrotic abdominal wounds. Noting that her ulcers have been getting worse with a foul odor and worsening drainage. Patient complaining of nausea and vomiting. Patient was sent to rehab after prior hospitalization and wound care, discharged on gentamicin and Santyl, she did leave the facility against medical advise on 03-10-2018. In the ED patient was noted to have multiple purulent and malodorous skin ulcers. CT of the abd/ pelvis did reveal multiple shallow and deep wounds. Patient was started on vancomycin and zosyn for hospital admission. Patient states today that she is doing okay, denying that her disease state is progressing. She denies nausea, vomiting, diarrhea or fever. States pain is less. Infections diseases has switched antibiotic therapy to meropenem. Past Med Surg Social Fam HX - Past Medical History Medical history: asthma, atrial fibrillation, diabetes, dialysis, GI bleed, hyperlipidemia, hypertension, renal disease, thyroid disease Additional medical history: ANEMIA, BLEEDING ULCER,. KIDNEY DIALYSIS Psychiatric history: no psych history - Past Surgical History Surgical History: appendectomy, cholecystectomy, thyroidectomy, transplant, other Additional surgical history: KIDNEY TRANSPLANT 2007, TUBAL LIGATION, shunt danya - Social History Smoking Status: Never smoker Smokeless Tobacco Status: No Alcohol use: none Drug use: none - Family History Father Adopted: No Family Member Ethnicity: Non- Living Status: Hx Family Cardiac Disorders: Yes Hx Family Respiratory Disorders: Yes Hx Family Cancer: Yes Hx Family GI Disorders: No Hx Family Endocrine Disorder: Yes Hx Family Neuromuscular Disorders: No Hx Family Neurologic Disorders: No Hx Family HEENT Disorders: No Hx Family Autoimmune Disorders: No Mother Adopted: No Living Status: Hx Family Cardiac Disorders: Yes Hx Family Respiratory Disorders: No Hx Family Cancer: Yes Hx Family GI Disorders: No Hx Family Endocrine Disorder: No Hx Family Neuromuscular Disorders: No Hx Family Neurologic Disorders: No Hx Family HEENT Disorders: No Hx Family Autoimmune Disorders: No Medications and Allergies Albuterol Sulfate [Albuterol Inhaler] 2 puff IH Q4H PRN 09/09/16 [History] Amiodarone [Cordarone] 200 mg PO DAILY 09/09/16 [History] Atorvastatin [Lipitor] 40 mg PO HS 09/09/16 [History] Budesonide/Formoterol 160/4.5 [Symbicort 160/4.5] 2 puff IH BIDR 09/09/16 [ History] Ipratropium/Albuterol Neb [Duoneb] 3 ml IH QID PRN 09/09/16 [History] Levothyroxine Sodium [Synthroid] 200 mcg PO QAM 09/09/16 [History] Omeprazole [PriLOSEC] 20 mg PO DAILY 09/09/16 [History] cloNIDine HCl [Clonidine HCl] 0.3 mg PO TID 09/09/16 [History] hydrALAZINE [HydrALAZINE] 50 mg PO BID 09/09/16 [History] predniSONE [PredniSONE] 10 mg PO DAILY 09/09/16 [History] Acetaminophen [Acetaminophen ER] 650 mg PO Q4H PRN 12/23/16 [History] Montelukast [Singulair] 10 mg PO DAILY 02/16/17 [History] Amlodipine Besylate 5 mg PO BID 01/07/18 [History] Folic Acid 1 mg PO DAILY 01/07/18 [History] Metoprolol Succinate [Toprol Xl] 25 mg PO DAILY 01/07/18 [History] Potassium Chloride 20 meq PO DAILY 01/07/18 [History] Apixaban [Eliquis] 5 mg PO BID #60 tablet 01/18/18 [Rx] Collagenase Oint [Santyl] 1 appl TP HS tube 02/16/18 [Rx] Darbepoetin [Aranesp] 60 mcg SQ QWEEK syringe 02/16/18 [Rx] FentaNYL PATCH [Duragesic] 12 mcg TD Q72H 6 Days #2 patch.td72 02/16/18 [Rx] Ferrous Sulfate 325 mg PO DAILY tablet 02/16/18 [Rx] Gentamicin Oint [Garamycin] 1 appl TP 2100 tube 02/16/18 [Rx] HYDROcodone/Acet 10/325 mg [[place] 10-325 mg] 1 each PO Q6H PRN 3 Days #12 tablet 02/16/18 [Rx] 3 Allergy/AdvReac Type Severity Reaction Status Date / Time heparin Allergy See Verified 01/07/18 13:14 Comments Warfarin [From Coumadin] Allergy Anaphylaxis Verified 03/15/18 10:15 Review of Systems All systems PM: The remainder of the systems were reviewed and are negative - Constitutional no chills, no fever(s) - Integumentary non-healing lesions, skin ulcer, sores, wounds General Surgery Exam Initial Vital Signs Temp Pulse Resp BP Pulse Ox 99.5 F 103 16 136/79 98 03/15/18 10:04 03/15/18 10:04 03/15/18 10:04 03/15/18 10:04 03/15/18 10:04 - General physical appearance no distress, obese - Eyes PERRL, normal ocular movement - Neck trachea midline - Respiratory clear to auscultation - Cardiovascular Cardiovascular exam: Present: RRR - Abdomen Abdomen general surgery: Present: bowel sounds present, soft, non tender, guarding - Integumentary Integumentary general surgery: Present: warm and dry, other (Necrotic ulcerative lesions of the abdominal pannus, left medial thigh with escar and purulents present. Multilple nonpurulent lesions of the left middle finger, right thigh and breast, and pressure ulcers of her buttocks. Wound measurements as stated in the event note. ) Exam Initial Vital Signs Temp Pulse Resp BP Pulse Ox 99.5 F 103 16 136/79 98 03/15/18 10:04 03/15/18 10:04 03/15/18 10:04 03/15/18 10:04 03/15/18 10:04 Results - Labs 03/16/18 04:57 03/16/18 04:57 Abnormal lab results RBC 1.92 M/mcL (3.82-4.97) L 03/16/18 04:57 Hgb 6.2 g/dL (11.5-15.4) L 03/16/18 04:57 Hct 18.8 % (35.3-44.9) L 03/16/18 04:57 RDW 17.0 % (11.5-14.5) H 03/16/18 04:57 Plt Count 124 K/mcL (140-400) L 03/16/18 04:57 Nucleated RBCs/100 WBC 1.1 /100 WBC (0) H 03/16/18 04:57 Toxic Granulation Present (Not Present) A 03/16/18 04:57 Platelet Estimate Slight Decrease (Normal) L 03/16/18 04:57 Hypochromasia Present (Not Present) A 03/16/18 04:57 Anisocytosis 1+ (Not Present) A 03/16/18 04:57 PT 21.2 Seconds (9.4-12.1) H 03/16/18 15:40 Chloride 95 mEq/L (98-107) L 03/16/18 04:57 Carbon Dioxide 15 mEq/L (23-29) L 03/16/18 04:57 BUN 43 mg/dL (6-20) H 03/16/18 04:57 Creatinine 9.08 mg/dL (0.60-1.20) H 03/16/18 04:57 Est GFR ( Amer) 6 (> 60) L 03/16/18 04:57 Est GFR (Non-Af Amer) 5 (> 60) L 03/16/18 04:57 BUN/Creatinine Ratio 5 (6-26) L 03/16/18 04:57 Calcium 7.9 mg/dL (8.6-10.3) L 03/16/18 04:57 Phosphorus 5.9 mg/dL (2.7-4.5) H 03/16/18 04:57 AST 8 Units/L (13-39) L 03/15/18 11:27 ALT 3 Units/L (7-52) L 03/15/18 11:27 Alkaline Phosphatase 129 Units/L (34-104) H 03/15/18 11:27 Serum Total Protein 5.7 g/dL (6.4-8.9) L 03/15/18 11:27 Albumin 2.2 g/dL (3.5-5.7) L 03/15/18 11:27 Albumin/Globulin Ratio 0.6 (1.1-2.2) L 03/15/18 11:27 Diabetes panel 03/16/18 Range/Units 04:57 Sodium 140 (136-145) mEq/L Potassium 4.2 (3.5-5.1) mEq/L Chloride 95 L (98-107) mEq/L Carbon Dioxide 15 L (23-29) mEq/L BUN 43 H (6-20) mg/dL Creatinine 9.08 H (0.60-1.20) mg/dL Glucose 71 (70-105) mg/dL Calcium 7.9 L (8.6-10.3) mg/dL Calcium panel 03/16/18 Range/Units 04:57 Calcium 7.9 L (8.6-10.3) mg/dL Phosphorus 5.9 H (2.7-4.5) mg/dL Pituitary panel 03/16/18 Range/Units 04:57 Sodium 140 (136-145) mEq/L Potassium 4.2 (3.5-5.1) mEq/L Chloride 95 L (98-107) mEq/L Carbon Dioxide 15 L (23-29) mEq/L BUN 43 H (6-20) mg/dL Creatinine 9.08 H (0.60-1.20) mg/dL Glucose 71 (70-105) mg/dL Calcium 7.9 L (8.6-10.3) mg/dL Adrenal panel 03/16/18 Range/Units 04:57 Sodium 140 (136-145) mEq/L Potassium 4.2 (3.5-5.1) mEq/L Chloride 95 L (98-107) mEq/L Carbon Dioxide 15 L (23-29) mEq/L BUN 43 H (6-20) mg/dL Creatinine 9.08 H (0.60-1.20) mg/dL Glucose 71 (70-105) mg/dL Calcium 7.9 L (8.6-10.3) mg/dL All other labs normal. Consult Discharge Plan - Plan Referrals: Peter Vicente DO [Primary Care Provider] - <William Mcknight - Last Filed: 03/16/18 18:59> Date of Encounter: 03/16/18 Review of Systems All systems PM: The remainder of the systems were reviewed and are negative General Surgery Exam Initial Vital Signs Temp Pulse Resp BP Pulse Ox 99.5 F 103 16 136/79 98 03/15/18 10:04 03/15/18 10:04 03/15/18 10:04 03/15/18 10:04 03/15/18 10:04 Exam Initial Vital Signs Temp Pulse Resp BP Pulse Ox 99.5 F 103 16 136/79 98 03/15/18 10:04 03/15/18 10:04 03/15/18 10:04 03/15/18 10:04 03/15/18 10:04 Results - Labs 03/16/18 04:57 03/16/18 04:57 Abnormal lab results RBC 1.92 M/mcL (3.82-4.97) L 03/16/18 04:57 Hgb 6.2 g/dL (11.5-15.4) L 03/16/18 04:57 Hct 18.8 % (35.3-44.9) L 03/16/18 04:57 RDW 17.0 % (11.5-14.5) H 03/16/18 04:57 Plt Count 124 K/mcL (140-400) L 03/16/18 04:57 Nucleated RBCs/100 WBC 1.1 /100 WBC (0) H 03/16/18 04:57 Toxic Granulation Present (Not Present) A 03/16/18 04:57 Platelet Estimate Slight Decrease (Normal) L 03/16/18 04:57 Hypochromasia Present (Not Present) A 03/16/18 04:57 Anisocytosis 1+ (Not Present) A 03/16/18 04:57 PT 21.2 Seconds (9.4-12.1) H 03/16/18 15:40 Chloride 95 mEq/L (98-107) L 03/16/18 04:57 Carbon Dioxide 15 mEq/L (23-29) L 03/16/18 04:57 BUN 43 mg/dL (6-20) H 03/16/18 04:57 Creatinine 9.08 mg/dL (0.60-1.20) H 03/16/18 04:57 Est GFR ( Amer) 6 (> 60) L 03/16/18 04:57 Est GFR (Non-Af Amer) 5 (> 60) L 03/16/18 04:57 BUN/Creatinine Ratio 5 (6-26) L 03/16/18 04:57 Calcium 7.9 mg/dL (8.6-10.3) L 03/16/18 04:57 Phosphorus 5.9 mg/dL (2.7-4.5) H 03/16/18 04:57 AST 8 Units/L (13-39) L 03/15/18 11:27 ALT 3 Units/L (7-52) L 03/15/18 11:27 Alkaline Phosphatase 129 Units/L (34-104) H 03/15/18 11:27 Serum Total Protein 5.7 g/dL (6.4-8.9) L 03/15/18 11:27 Albumin 2.2 g/dL (3.5-5.7) L 03/15/18 11:27 Albumin/Globulin Ratio 0.6 (1.1-2.2) L 03/15/18 11:27 PTH Intact 74.2 pg/ml (10.0-65.0) H 03/16/18 16:15 Diabetes panel 03/16/18 Range/Units 04:57 Sodium 140 (136-145) mEq/L Potassium 4.2 (3.5-5.1) mEq/L Chloride 95 L (98-107) mEq/L Carbon Dioxide 15 L (23-29) mEq/L BUN 43 H (6-20) mg/dL Creatinine 9.08 H (0.60-1.20) mg/dL Glucose 71 (70-105) mg/dL Calcium 7.9 L (8.6-10.3) mg/dL Calcium panel 03/16/18 Range/Units 04:57 Calcium 7.9 L (8.6-10.3) mg/dL Phosphorus 5.9 H (2.7-4.5) mg/dL Pituitary panel 03/16/18 Range/Units 04:57 Sodium 140 (136-145) mEq/L Potassium 4.2 (3.5-5.1) mEq/L Chloride 95 L (98-107) mEq/L Carbon Dioxide 15 L (23-29) mEq/L BUN 43 H (6-20) mg/dL Creatinine 9.08 H (0.60-1.20) mg/dL Glucose 71 (70-105) mg/dL Calcium 7.9 L (8.6-10.3) mg/dL Adrenal panel 03/16/18 Range/Units 04:57 Sodium 140 (136-145) mEq/L Potassium 4.2 (3.5-5.1) mEq/L Chloride 95 L (98-107) mEq/L Carbon Dioxide 15 L (23-29) mEq/L BUN 43 H (6-20) mg/dL Creatinine 9.08 H (0.60-1.20) mg/dL Glucose 71 (70-105) mg/dL Calcium 7.9 L (8.6-10.3) mg/dL All other labs normal. - Attending Attestation I examined this patient and my medical decision-making was reviewed with the Resident Physician. I agree with the documented findings, disposition and treatment plan as described except to the extent set forth below. .The patient is seen and evaluated on afternoon rounds with the resident and the clinical nurse practitioner. She has diffuse necrotic severe wounds consistent with calciphylaxis. Aggressive debridement is contraindicated. We will continue to support her as well as possible with local wound care. William Mcknight MD FACS
[2018-03-16] MEDS ORDERED: 0.9 % Sodium Chloride 1,000 ML ONE (17:58)
[2018-03-16] MEDS ORDERED: Meropenem 500 MG in Water for inj. (sterile) 20 ML 5 ML IVP SCH (18:00)
[2018-03-16] MEDS: Pantoprazole 40 MG VIAL IVP SCH (18:22)
[2018-03-16] MEDS ORDERED: 0.9 % Sodium Chloride 250 ML ONE (20:05)
[2018-03-16] MEDS: *HR* HYDROcodone/Acet 10/325 mg TABLET PO PRN (21:52)
[2018-03-17] MEDS: Ondansetron 4 MG/2 ML VIAL IVP SCH ×4 (03:22→17:57)
[2018-03-17 03:42] LABS: Basophils % 0.1 %; Eosinophils % 0.2 %; Hematocrit 27.7 % (35.3-44.9); Immature Granulocytes % 0.6 % (0-4); Lymphocytes # 0.6 K/mcL (0.6-4.6); Lymphocytes % 6.7 %; Mean Corpuscular HGB Conc 33.2 g/dL (31.6-35.5); Mean Corpuscular Hemoglobin 31.1 pg (28.0-33.3); Mean Corpuscular Volume 93.6 fL (83.0-100.0); Mean Platelet Volume 10.2 fL (9.4-12.4); Monocytes # 0.6 K/mcL (0.0-1.3); Monocytes % 7.1 %; Neutrophils # 7.6 K/mcL (1.6-8.9); Platelet Count 120 K/mcL (140-400); Red Blood Count 2.96 M/mcL (3.82-4.97); Red Cell Distribution Width 17.6 % (11.5-14.5); Segmented Neutrophils % 85.3 %
[2018-03-17 03:51] LABS: Hemoglobin 9.2 g/dL (11.5-15.4); Potassium 3.9 mEq/L (3.5-5.1)
[2018-03-17] MEDS: Meropenem 500 MG in Water for inj. (sterile) 20 ML 5 ML IVP SCH ×2 (05:40→20:01)
[2018-03-17] MEDS: Pantoprazole 40 MG VIAL IVP SCH ×2 (06:13→17:57)
--- NOTE | 2018-03-17 07:37 | Internal Med Progress Note ---
Hospitalist Progress Note - Encounter Date of Encounter: 03/17/18 Time of Encounter: 07:30 - Subjective Interval History: No acute events overnight - Exam Vitals: Temp Pulse Resp BP Pulse Ox 97.6 F 62 18 92/62 92 03/17/18 07:22 03/17/18 07:22 03/17/18 07:22 03/17/18 07:22 03/17/18 07:22 Exam: Gen - Awake, alert, oriented x 3, no acute distress HEENT - NCAT, PERRLA, EOMI, hearing grossly intact, oropharynx benign CV - RRR, normal S1 and S2, no M/R/G, no BLE edema Resp - Normal WOB, CTAB, no W/R/R GI - Soft, NT/ND, obese abdomen with foul smelling ulcers Skin - Warm, dry, no rashes/lesions/ulcers Psych - Normal mood and affect, no depression or anxiety - Assessment and Plan (1) Wound infection Current Visit: Yes Status: Acute Assessment and Plan: Pt has foul smelling draining abdominal ulcers. Has had previous cultures growing enterobacter, proteus and pseudomonas. Has history of non compliance and has been seen in the past by surgery and ID. Will start on vanc and zosyn, obtain wound and blood cultures. -Has been seen by ID and surgery. Antibiotics switched to meropenem. Follow up wound and blood cultures.Surgery following and provided wound care recommendations (2) GI bleed Current Visit: No Status: Suspected Assessment and Plan: Query GI bleed. hemoglobin fell to 6.2 yesterday. Has been transfused 2 units PRBC,. Gi consulted and appreciate recs (3) ESRD (end stage renal disease) on dialysis Current Visit: No Status: Acute Assessment and Plan: Missed dialysis on monday secondary to not feeling well. Consult renal and resume dialysis per schedule Has resumed dialysis, renal following (4) Noncompliance with renal dialysis Current Visit: No Status: Chronic Assessment and Plan: Resume dialysis (5) Calciphylaxis Current Visit: Yes Status: Acute Assessment and Plan: Nephrology following. Resume sodium thiosulfate (6) Nausea & vomiting Current Visit: Yes Status: Resolved Assessment and Plan: Possibly secondary to systemic infection vs uremia from missed dialysis. start on zofran. Continue antibiotics and resume dialysis. Nausea and vomitng resolved (7) Wound, open, abdominal wall, anterior Current Visit: No Status: Acute Assessment and Plan: Infected abdominal wound. See #1. Continue antibiotics (8) Anemia in chronic kidney disease (CKD) Current Visit: Yes Status: Chronic Assessment and Plan: Acute blood loss anemia r/o GI bleed with acute on chronic anemia 2/2 to CKD. Continue aranesp Hemoglobin dropped to 6.2 yesterday. Has been transfused 2 units of PRBC. Hemglobin responded appropriately. Gi consulted and appreciate recs. Anticoagulation for afib held (9) DVT prophylaxis Current Visit: No Status: Acute Assessment and Plan: On apixaban (10) Afib Current Visit: No Status: Chronic Assessment and Plan: Continue amiodarone. Hold apixaban secondary to possible GI bleed (11) Hypothyroidism Current Visit: Yes Status: Chronic Assessment and Plan: Continue levothyroxine (12) Hypertension Current Visit: Yes Status: Chronic Assessment and Plan: Continue clonidine - Time Spent with Patient Total time spent is greater than 50% in coordination of care (as documented) at patient's floor/unit and/or counseling patient: Internal Medicine: Result - Labs CBC & Chem 7: 03/17/18 03:18 03/17/18 03:18 Labs: Short CBC 03/17/18 Range/Units 03:18 WBC 8.9 (4.3-11.1) K/mcL Hgb 9.2 L D (11.5-15.4) g/dL Hct 27.7 L (35.3-44.9) % Plt Count 120 L (140-400) K/mcL Neutrophils # 7.6 (1.6-8.9) K/mcL BMP 03/17/18 03:18 Sodium 139 Potassium 3.9 Chloride 99 Carbon Dioxide 24 BUN 14 Creatinine 3.90 H Glucose 146 H Calcium 8.0 L - ABG Interpretation ABG results: PT/INR, D-dimer PT 21.2 Seconds (9.4-12.1) H 03/16/18 15:40 Consult Discharge Plan - Plan Referrals: Peter Vicente DO [Primary Care Provider] - (2) GI bleed Qualifiers: GI bleed type/associated pathology: unspecified gastrointestinal hemorrhage type Qualified Code(s): K92.2 - Gastrointestinal hemorrhage, unspecified (6) Nausea & vomiting Qualifiers: Vomiting type: unspecified (7) Wound, open, abdominal wall, anterior Qualifiers: Encounter type: initial encounter Qualified Code(s): S31.109A - Unspecified open wound of abdominal wall, unspecified quadrant without penetration into peritoneal cavity, initial encounter (8) Anemia in chronic kidney disease (CKD) Qualifiers: Chronic kidney disease stage: on chronic dialysis Qualified Code(s): N18.6 - End stage renal disease; D63.1 - Anemia in chronic kidney disease; Z99.2 - Dependence on renal dialysis (10) Afib Qualifiers: Atrial fibrillation type: paroxysmal Qualified Code(s): I48.0 - Paroxysmal atrial fibrillation
[2018-03-17] MEDS ORDERED: 0.9 % Sodium Chloride 250 ML IVC PRN (08:18)
[2018-03-17] MEDS ORDERED: 0.9 % Sodium Chloride 1,000 ML PRIME SCH (08:30)
[2018-03-17] MEDS ORDERED: Gentamicin Oint 15 GM TUBE TP SCH (09:00)
[2018-03-17] MEDS: cloNIDine HCl 0.1 MG TABLET PO SCH ×3 (09:20→19:46)
[2018-03-17] MEDS: predniSONE 10 MG TABLET PO SCH (09:43)
[2018-03-17] MEDS: Folic Acid 1 MG TABLET PO SCH (09:43)
[2018-03-17] MEDS: *HR* Amiodarone 200 MG TABLET PO SCH (09:44)
--- NOTE | 2018-03-17 10:08 | Nephrology Progress Note ---
Date of Encounter: 03/17/18 Time of Encounter: 10:30 - Assessment and Plan (1) ESRD (end stage renal disease) Current Visit: Yes Status: Chronic S/p HD yesterday to make up for the missed HD earlier in the week (she has a hx of noncompliance with dialysis). She typically is ESRD on HD TTS at [facility], and so I've resumed dialysis today to both maintain her schedule and for further clearance/fluid removal. Will provide Na Thiosulfate 25gm IV with each dialysis for Calciphylaxis therapy (see my note from 03/16, regarding the strategy for this condition going forward). Next HD will be planned for Monday. I will be available if need on Monday. (2) Calciphylaxis Current Visit: Yes Status: Chronic Appreciate Surgery and Wound care. See above Higher mortality rates are seen in pt's who are ESRD with Calciphylaxis. (3) Anemia in chronic kidney disease (CKD) Current Visit: Yes Status: Chronic Goal Hgb is 10-11. BARBARA +/- iron as needed. Qualifiers: Chronic kidney disease stage: on chronic dialysis Qualified Code(s): N18.6 - End stage renal disease; D63.1 - Anemia in chronic kidney disease; Z99.2 - Dependence on renal dialysis (4) History of kidney transplant Current Visit: Yes Status: Chronic Noted (5) Noncompliance with renal dialysis Current Visit: No Status: Chronic Chronic, and recurrent. See above. (6) Secondary hyperparathyroidism (of renal origin) Current Visit: Yes Status: Acute Elevated iPTH, so I've added Sensipar (see my note from 03/16, as this is part of the Calciphylaxis strategy). Subjective Principal diagnosis: ESRD Interval history: Pt was s/e. She did not affirm N/V/D or uremic symptoms. Objective - Vital Signs Vital signs: Vital Signs Temp Pulse Resp BP Pulse Ox 03/17/18 07:22 97.6 F 62 18 92/62 92 03/17/18 05:44 97.7 F 77 18 98/65 99 03/16/18 21:02 98.8 F 89 16 102/64 94 03/16/18 20:47 98.9 F 16 132/74 89 03/16/18 20:25 97.5 F L 18 119/66 03/16/18 20:17 18 89 03/16/18 20:09 98.2 F 86 18 110/71 91 03/16/18 19:35 107/64 03/16/18 19:20 135/49 03/16/18 19:05 115/53 03/16/18 18:50 103/62 03/16/18 18:35 115/47 03/16/18 18:32 97.1 F L 78 18 111/75 03/16/18 18:20 98/79 03/16/18 18:08 97.5 F L 82 18 110/74 03/16/18 18:05 99/72 03/16/18 17:53 97.1 F L 80 128/74 03/16/18 17:50 111/77 03/16/18 17:35 122/60 03/16/18 17:20 131/66 03/16/18 17:05 140/60 03/16/18 16:50 127/53 03/16/18 16:35 130/60 03/16/18 16:20 114/50 03/16/18 16:05 98.6 F 18 107/55 03/16/18 11:30 98.4 F 76 19 99/58 96 Intake and Output 03/16/18 03/17/18 03/17/18 23:59 07:59 15:59 Intake Total 950 / 950 350 / 350 0 / 0 Output Total 600 / 600 Balance 350 / 350 350 / 350 0 / 0 Intake: Oral 0 / 0 0 / 0 0 / 0 Blood Product 350 / 350 350 / 350 Rbcs Leuko Poor As-1 Unit 350 / 350 [id number] Rbcs Leuko Poor As-1 Unit 0 / 0 350 / 350 [id number] Intake, Rinseback and Flushes 600 / 600 Output: Urine 0 / 0 Total Dialysis (HD) Output 600 / 600 Other: Meal Breakfast Percent of Meal Consumed 0% 0% Stool Size Small Stool Color Brown # Bowel Movements 1 Weight 77 kg Blood Glucose* 81 168 Hemodialysis Net Fluid Removed 0 (mL) Patient Weight 03/17/18 23:59 Weight 77 kg - General Appearance General appearance: Present: well-developed, appears started age, obese, chronically ill, fatigue EENT: Present: ATNC, PERRL, mucous membranes moist Neck: Present: supple Respiratory: Present: clear Cardiology: Present: no edema, edema, regular rate, normal S1, normal S2 Dialysis Vascular Access: Venous Catheter (With no exitsite erythema) Gastrointestinal: Present: normoactive bowel sounds, no tenderness, no guarding , obese Integumentary: Present: warm and dry Neurologic: Present: no focal deficit, no asterixis, alert and oriented x3 Musculoskeletal: Present: no deformities Psychiatric: Present: mood/affect appropriate, cooperative - Lab 03/18/18 08:11 03/19/18 04:47 Most recent lab results Calcium 8.0 mg/dL (8.6-10.3) L 03/17/18 03:18 Phosphorus 3.3 mg/dL (2.7-4.5) 03/17/18 03:18 Magnesium 1.6 mg/dL (1.6-2.6) 03/16/18 04:57 Consult Discharge Plan - Plan Referrals: Peter Vicente DO [Primary Care Provider] -
[2018-03-17] MEDS: Budesonide/Formoterol 160/4.5 1 PUFF INH IH SCH ×2 (11:23→20:32)
[2018-03-17] MEDS ORDERED: SODIUM THIOSULFATE IVPB SCH ×2 (12:59→13:00)
[2018-03-17] MEDS: hydrALAZINE 25 MG TABLET PO SCH ×2 (13:01→19:46)
[2018-03-17] MEDS: amLODIPine 5 MG TABLET PO SCH ×2 (13:01→19:46)
[2018-03-17] MEDS: *HR* HYDROcodone/Acet 10/325 mg TABLET PO PRN ×2 (13:08→20:01)
--- NOTE | 2018-03-17 14:05 | Gastroenterology Consult Note ---
Date of Encounter: 03/17/18 Time of Encounter: 14:00 - Assessment and plan (1) Anemia in chronic kidney disease (CKD) Current Visit: Yes Status: Chronic Assessment and plan: Patient with anemia but no overt GI bleeding recent GI workup was unremarkable. Has been transfused during this admission. No indication for endoscopy again. Management of anemia as per nephrology with when necessary IV iron and the Epogen. Qualifiers: Chronic kidney disease stage: on chronic dialysis Qualified Code(s): N18.6 - End stage renal disease; D63.1 - Anemia in chronic kidney disease; Z99.2 - Dependence on renal dialysis - Time Spent With Patient Total time spent is greater than 50% in coordination of care (as documented) at patient's floor/unit and/or counseling patient: GI History of Present Illness - Data of Consult Requesting Physician: El Cha - Consult Narrative Reason for consult: Anemia in this patient with end-stage renal disease on dialysis History of present illness: Ms. Alexis is a 43 year old female estrogen disease on hemodialysis. Patient has been admitted the for nausea vomiting and diarrhea per patient those symptoms has resolved. during hospitalization her hemoglobin dropped from 7.4 to 6.2 has been transfused. Because of drop in hemoglobin we were asked to see. Patient denies any overt bleeding no black stool no trouble swallowing.. Colonoscopy: 02/14/18: Diverticulosis otherwise negative EGD: 02/14/18; atrophic gastric mucosa otherwise unremarkable Past Med Surg Social Fam HX - Past Medical History Medical history: asthma, atrial fibrillation, diabetes, dialysis, GI bleed, hyperlipidemia, hypertension, renal disease, thyroid disease Additional medical history: ANEMIA, BLEEDING ULCER,. KIDNEY DIALYSIS Psychiatric history: no psych history - Past Surgical History Surgical History: appendectomy, cholecystectomy, thyroidectomy, transplant, other Additional surgical history: KIDNEY TRANSPLANT 2007, TUBAL LIGATION, shunt danya - Social History Smoking Status: Never smoker Smokeless Tobacco Status: No Alcohol use: none Drug use: none - Family History Father Adopted: No Family Member Ethnicity: Non- Living Status: Hx Family Cardiac Disorders: Yes Hx Family Respiratory Disorders: Yes Hx Family Cancer: Yes Hx Family GI Disorders: No Hx Family Endocrine Disorder: Yes Hx Family Neuromuscular Disorders: No Hx Family Neurologic Disorders: No Hx Family HEENT Disorders: No Hx Family Autoimmune Disorders: No Mother Adopted: No Living Status: Hx Family Cardiac Disorders: Yes Hx Family Respiratory Disorders: No Hx Family Cancer: Yes Hx Family GI Disorders: No Hx Family Endocrine Disorder: No Hx Family Neuromuscular Disorders: No Hx Family Neurologic Disorders: No Hx Family HEENT Disorders: No Hx Family Autoimmune Disorders: No Review of Systems: GI: as per [facility]: denies fever but at the time of presentation she was feeling feverish along with nausea and vomiting EYES: denies yellow discoloration ENT: denies pain with swallowing or difficulty swallowing CARDIO: denies chest pain, has history of A. fib RESP: No Shortness of breath with exertion : Patient does not make urine NEURO: denies any focal weakness HEME: Denies any bruising MS: Patient has ischemia of the left hand middle finger but not in DERM: denies rash or itching - Constitutional Vitals: Temp Pulse Resp BP Pulse Ox 97.9 F 62 18 104/58 92 03/17/18 10:54 03/17/18 10:54 03/17/18 11:24 03/17/18 12:32 03/17/18 11:24 Exam: CONSTITUTIONAL:~alert, no acute distress.~HEAD:~normocephalic.~EYES:~no jaundice.~NECK:~no obvious swelling.~HEART:~In A. fib but rate is controlled ~ LUNGS:~bilateral good air entry.~ ; Chest: Right upper chest causes catheter in place .ABDOMEN:~lower-abdomen skin wounds are covered with dressing , soft, non tander, no masses pulpable, no organomegaly.~RECTAL EXAM:~Deferred.~EXTREMITIES : Left upper and middle finger patient has ischemic gangrene ~~SKIN:~no stigmata of chronic liver disease.~NEUROLOGIC:~no obvious focal defect.~~~~ Results - Labs CBC & Chem 7: 03/17/18 03:18 03/17/18 03:18 Labs: Last Result Calcium 8.0 mg/dL (8.6-10.3) L 03/17/18 03:18 Entire Visit Hgb 9.2 g/dL (11.5-15.4) L D 03/17/18 03:18 Hct 27.7 % (35.3-44.9) L 03/17/18 03:18 PT 21.2 Seconds (9.4-12.1) H 03/16/18 15:40 Total Bilirubin 0.5 mg/dL (0.3-1.0) 03/15/18 11:27 AST 8 Units/L (13-39) L 03/15/18 11:27 ALT 3 Units/L (7-52) L 03/15/18 11:27 - ABG ABG results: PT/INR, D-dimer PT 21.2 Seconds (9.4-12.1) H 03/16/18 15:40 Consult Discharge Plan - Plan Referrals: Peter Vicente DO [Primary Care Provider] -
[2018-03-17 14:37] LABS: Basophils % 0.3 %; Eosinophils # 0.1 K/mcL (0.0-0.6); Hematocrit 25.5 % (35.3-44.9); Hemoglobin 8.5 g/dL (11.5-15.4); Immature Granulocytes % 0.6 % (0-4); Lymphocytes # 0.6 K/mcL (0.6-4.6); Lymphocytes % 17.2 %; Mean Corpuscular HGB Conc 33.3 g/dL (31.6-35.5); Mean Corpuscular Volume 95.9 fL (83.0-100.0); Mean Platelet Volume 10.2 fL (9.4-12.4); Monocytes # 0.3 K/mcL (0.0-1.3); Monocytes % 9.1 %; Neutrophils # 2.3 K/mcL (1.6-8.9); Platelet Count 110 K/mcL (140-400); Red Blood Count 2.66 M/mcL (3.82-4.97); Red Cell Distribution Width 17.8 % (11.5-14.5); Segmented Neutrophils % 69.8 %
--- NOTE | 2018-03-17 16:44 | General Surgery Progress Note ---
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 No change in interval status. Patient reporting some mild wound pain, controlled with medications. Denies nausea, vomiting, diarrhea, fever. Objective Vital Signs - Last 8 Hours Temp Pulse Resp BP Pulse Ox 03/17/18 15:55 112/54 03/17/18 15:40 109/50 03/17/18 15:25 106/52 03/17/18 15:10 105/51 03/17/18 14:55 104/47 03/17/18 14:40 104/58 03/17/18 14:25 116/54 03/17/18 14:10 106/57 03/17/18 13:55 97.5 F L 18 124/49 03/17/18 12:32 104/58 03/17/18 11:24 18 92 03/17/18 10:54 97.9 F 62 18 93/56 92 Intake and Output 03/17/18 03/17/18 03/17/18 07:59 15:59 23:59 Intake Total 350 / 350 700 / 700 Balance 350 / 350 700 / 700 Intake: Oral 0 / 0 0 / 0 Blood Product 350 / 350 Rbcs Leuko Poor As-1 Unit 350 / 350 [id number] Intake, Rinseback and Flushes 700 / 700 Other: Meal Lunch/NPO Percent of Meal Consumed 0% Stool Size Small Stool Color Brown # Bowel Movements 1 Weight 77 kg Blood Glucose* 168 145 Hemodialysis Net Fluid Removed 975 (mL) Patient Weight 03/17/18 23:59 Weight 77 kg - General physical appearance no distress, no pain, chronically ill, obese - Eyes PERRL, normal ocular movement - ENT normal mucosa, atraumatic, normocephalic - Respiratory clear to auscultation - Cardiovascular Cardiovascular exam: Present: RRR - Abdomen Abdomen: Present: bowel sounds present, soft, non tender, wound (No interval change in wound status of large purulent wounds with associated eschar) - Integumentary other (Clean and dry dressings present for wound care management) - Neurologic CN 2-12 grossly intact - Psychiatric oriented to time, oriented to person, oriented to place - Labs 03/17/18 12:00 03/17/18 03:18 Diabetes panel 03/17/18 Range/Units 03:18 Sodium 139 (136-145) mEq/L Potassium 3.9 (3.5-5.1) mEq/L Chloride 99 (98-107) mEq/L Carbon Dioxide 24 (23-29) mEq/L BUN 14 (6-20) mg/dL Creatinine 3.90 H (0.60-1.20) mg/dL Glucose 146 H (70-105) mg/dL Calcium 8.0 L (8.6-10.3) mg/dL Calcium panel 03/17/18 03/17/18 Range/Units 03:18 03:18 Calcium 8.0 L (8.6-10.3) mg/dL Phosphorus 3.3 (2.7-4.5) mg/dL Pituitary panel 03/17/18 Range/Units 03:18 Sodium 139 (136-145) mEq/L Potassium 3.9 (3.5-5.1) mEq/L Chloride 99 (98-107) mEq/L Carbon Dioxide 24 (23-29) mEq/L BUN 14 (6-20) mg/dL Creatinine 3.90 H (0.60-1.20) mg/dL Glucose 146 H (70-105) mg/dL Calcium 8.0 L (8.6-10.3) mg/dL Adrenal panel 03/17/18 Range/Units 03:18 Sodium 139 (136-145) mEq/L Potassium 3.9 (3.5-5.1) mEq/L Chloride 99 (98-107) mEq/L Carbon Dioxide 24 (23-29) mEq/L BUN 14 (6-20) mg/dL Creatinine 3.90 H (0.60-1.20) mg/dL Glucose 146 H (70-105) mg/dL Calcium 8.0 L (8.6-10.3) mg/dL Consult Discharge Plan - Plan Referrals: Peter Vicente DO [Primary Care Provider] - <William Mcknight - Last Filed: 03/17/18 21:06> Date of Encounter: 03/17/18 Objective Vital Signs - Last 8 Hours Temp Pulse Resp BP Pulse Ox 03/17/18 20:32 16 93 03/17/18 19:04 98.5 F 72 16 98/62 90 03/17/18 17:40 98.4 F 18 109/59 03/17/18 17:25 110/51 03/17/18 17:10 109/36 03/17/18 16:55 115/52 03/17/18 16:40 107/46 03/17/18 16:25 115/52 03/17/18 16:10 107/46 03/17/18 15:55 112/54 03/17/18 15:40 109/50 03/17/18 15:25 106/52 03/17/18 15:10 105/51 03/17/18 14:55 104/47 03/17/18 14:40 104/58 03/17/18 14:25 116/54 03/17/18 14:10 106/57 03/17/18 13:55 97.5 F L 18 124/49 Intake and Output 03/17/18 03/17/18 03/17/18 07:59 15:59 23:59 Intake Total 350 / 350 700 / 700 Output Total 1700 / 1700 Balance 350 / 350 700 / 700 -1700 / -1700 Intake: Oral 0 / 0 0 / 0 Blood Product 350 / 350 Rbcs Leuko Poor As-1 Unit 350 / 350 [id number] Intake, Rinseback and Flushes 700 / 700 Output: Total Dialysis (HD) Output 1700 / 1700 Other: Meal Lunch/NPO Percent of Meal Consumed 0% Stool Size Small Stool Color Brown # Bowel Movements 1 Weight 77 kg Blood Glucose* 168 145 164 Hemodialysis Net Fluid Removed 975 1000 (mL) Patient Weight 03/17/18 23:59 Weight 77 kg - Labs 03/17/18 12:00 03/17/18 03:18 Diabetes panel 03/17/18 Range/Units 03:18 Sodium 139 (136-145) mEq/L Potassium 3.9 (3.5-5.1) mEq/L Chloride 99 (98-107) mEq/L Carbon Dioxide 24 (23-29) mEq/L BUN 14 (6-20) mg/dL Creatinine 3.90 H (0.60-1.20) mg/dL Glucose 146 H (70-105) mg/dL Calcium 8.0 L (8.6-10.3) mg/dL Calcium panel 03/17/18 03/17/18 Range/Units 03:18 03:18 Calcium 8.0 L (8.6-10.3) mg/dL Phosphorus 3.3 (2.7-4.5) mg/dL Pituitary panel 03/17/18 Range/Units 03:18 Sodium 139 (136-145) mEq/L Potassium 3.9 (3.5-5.1) mEq/L Chloride 99 (98-107) mEq/L Carbon Dioxide 24 (23-29) mEq/L BUN 14 (6-20) mg/dL Creatinine 3.90 H (0.60-1.20) mg/dL Glucose 146 H (70-105) mg/dL Calcium 8.0 L (8.6-10.3) mg/dL Adrenal panel 03/17/18 Range/Units 03:18 Sodium 139 (136-145) mEq/L Potassium 3.9 (3.5-5.1) mEq/L Chloride 99 (98-107) mEq/L Carbon Dioxide 24 (23-29) mEq/L BUN 14 (6-20) mg/dL Creatinine 3.90 H (0.60-1.20) mg/dL Glucose 146 H (70-105) mg/dL Calcium 8.0 L (8.6-10.3) mg/dL - Attending Attestation I examined this patient and my medical decision-making was reviewed with the Resident Physician. I agree with the documented findings, disposition and treatment plan as described except to the extent set forth below. The patient is seen and evaluated with the resident. There are no specific surgical interventions for calciphylaxis of the appropriate wound care. Aggressive debridement is contraindicated. Continue to follow with wound care William Mcknight MD FACS
[2018-03-17] MEDS: Metoprolol XL (24 HR) Succ 25 MG TAB.ER.24H PO SCH (17:58)
[2018-03-17] MEDS: Gentamicin Oint 15 GM TUBE TP SCH (21:05)
[2018-03-18] MEDS: Ondansetron 4 MG/2 ML VIAL IVP SCH ×4 (00:56→17:13)
[2018-03-18 00:58] LABS: Basophils % 0.1 %; Eosinophils % 0.3 %; Hematocrit 28.3 % (35.3-44.9); Hemoglobin 9.1 g/dL (11.5-15.4); Immature Granulocytes % 0.4 % (0-4); Lymphocytes # 0.5 K/mcL (0.6-4.6); Lymphocytes % 7.5 %; Mean Corpuscular HGB Conc 32.2 g/dL (31.6-35.5); Mean Corpuscular Hemoglobin 31.1 pg (28.0-33.3); Mean Corpuscular Volume 96.6 fL (83.0-100.0); Mean Platelet Volume 10.3 fL (9.4-12.4); Monocytes # 0.7 K/mcL (0.0-1.3); Monocytes % 9.2 %; Neutrophils # 5.9 K/mcL (1.6-8.9); Platelet Count 113 K/mcL (140-400); Red Blood Count 2.93 M/mcL (3.82-4.97); Red Cell Distribution Width 17.8 % (11.5-14.5); Segmented Neutrophils % 82.5 %
[2018-03-18 01:25] LABS: Potassium 4.1 mEq/L (3.5-5.1)
[2018-03-18] MEDS: Pantoprazole 40 MG VIAL IVP SCH (05:15)
--- NOTE | 2018-03-18 07:39 | Internal Med Progress Note ---
Hospitalist Progress Note - Encounter Date of Encounter: 03/18/18 Time of Encounter: 07:30 - Subjective Interval History: No acute events overnight - Exam Vitals: Temp Pulse Resp BP Pulse Ox 98.1 F 66 18 115/72 94 03/18/18 07:00 03/18/18 07:00 03/18/18 07:00 03/18/18 07:00 03/18/18 07:00 Exam: Gen - Awake, alert, oriented x 3, no acute distress HEENT - NCAT, PERRLA, EOMI, hearing grossly intact, oropharynx benign CV - RRR, normal S1 and S2, no M/R/G, no BLE edema Resp - Normal WOB, CTAB, no W/R/R GI - Soft, NT/ND, obese abdomen with foul smelling ulcers Skin - Warm, dry, no rashes/lesions/ulcers Psych - Normal mood and affect, no depression or anxiety - Assessment and Plan (1) Wound infection Current Visit: Yes Status: Acute Assessment and Plan: Pt has foul smelling draining abdominal ulcers. Has had previous cultures growing enterobacter, proteus and pseudomonas. Has history of non compliance and has been seen in the past by surgery and ID. Will start on vanc and zosyn, obtain wound and blood cultures. -Has been seen by ID and surgery. Antibiotics switched to meropenem based on previous wound culture results. Follow up wound and blood cultures. Surgery following and provided wound care recommendations (2) GI bleed Current Visit: No Status: Suspected Assessment and Plan: Query GI bleed. hemoglobin fell to 6.2 yesterday. Has been transfused 2 units PRBC,. Was seen by GI and determined no need for endoscopy as patient has recently had a negative endoscopy. Will resume anticoagulation and monitor CBC (3) ESRD (end stage renal disease) on dialysis Current Visit: No Status: Acute Assessment and Plan: Missed dialysis on monday secondary to not feeling well. Consult renal and resume dialysis per schedule Has resumed dialysis, renal following (4) Noncompliance with renal dialysis Current Visit: No Status: Chronic Assessment and Plan: Resume dialysis (5) Calciphylaxis Current Visit: Yes Status: Chronic Assessment and Plan: Nephrology following. Resume sodium thiosulfate (6) Nausea & vomiting Current Visit: Yes Status: Resolved Assessment and Plan: Possibly secondary to systemic infection vs uremia from missed dialysis. start on zofran. Continue antibiotics and resume dialysis. Nausea and vomitng resolved (7) Wound, open, abdominal wall, anterior Current Visit: No Status: Acute Assessment and Plan: Infected abdominal wound. See #1. Continue antibiotics (8) Anemia in chronic kidney disease (CKD) Current Visit: Yes Status: Chronic Assessment and Plan: Acute blood loss anemia r/o GI bleed with acute on chronic anemia 2/2 to CKD. Continue aranesp Hemoglobin dropped to 6.2 yesterday. Has been transfused 2 units of PRBC. Hemglobin responded appropriately. Gi consulted and determined no need for endoscopy. Will resume anticoagulation (9) DVT prophylaxis Current Visit: No Status: Acute Assessment and Plan: On apixaban (10) Afib Current Visit: No Status: Chronic Assessment and Plan: Continue amiodarone.Resume apixaban (11) Hypothyroidism Current Visit: Yes Status: Chronic Assessment and Plan: Continue levothyroxine (12) Hypertension Current Visit: Yes Status: Chronic Assessment and Plan: Continue clonidine - Time Spent with Patient Total time spent is greater than 50% in coordination of care (as documented) at patient's floor/unit and/or counseling patient: Internal Medicine: Result - Labs CBC & Chem 7: 03/18/18 00:18 03/18/18 00:18 Labs: Short CBC 03/17/18 03/18/18 Range/Units 12:00 00:18 WBC 3.3 L D 7.1 D (4.3-11.1) K/mcL Hgb 8.5 L 9.1 L (11.5-15.4) g/dL Hct 25.5 L 28.3 L (35.3-44.9) % Plt Count 110 L 113 L (140-400) K/mcL Neutrophils # 2.3 5.9 (1.6-8.9) K/mcL BMP 03/18/18 00:18 Sodium 138 Potassium 4.1 Chloride 99 Carbon Dioxide 28 BUN 7 Creatinine 2.06 H Glucose 135 H Calcium 8.0 L - ABG Interpretation ABG results: PT/INR, D-dimer PT 21.2 Seconds (9.4-12.1) H 03/16/18 15:40 Consult Discharge Plan - Plan Referrals: Peter Vicente DO [Primary Care Provider] - (2) GI bleed Qualifiers: GI bleed type/associated pathology: unspecified gastrointestinal hemorrhage type Qualified Code(s): K92.2 - Gastrointestinal hemorrhage, unspecified (6) Nausea & vomiting Qualifiers: Vomiting type: unspecified (7) Wound, open, abdominal wall, anterior Qualifiers: Encounter type: initial encounter Qualified Code(s): S31.109A - Unspecified open wound of abdominal wall, unspecified quadrant without penetration into peritoneal cavity, initial encounter (8) Anemia in chronic kidney disease (CKD) Qualifiers: Chronic kidney disease stage: on chronic dialysis Qualified Code(s): N18.6 - End stage renal disease; D63.1 - Anemia in chronic kidney disease; Z99.2 - Dependence on renal dialysis (10) Afib Qualifiers: Atrial fibrillation type: paroxysmal Qualified Code(s): I48.0 - Paroxysmal atrial fibrillation
[2018-03-18] MEDS: Budesonide/Formoterol 160/4.5 1 PUFF INH IH SCH ×2 (07:56→20:01)
--- NOTE | 2018-03-18 08:34 | Event Note ---
Date of Encounter: 03/18/18 Time of Encounter: 08:33 Nephrology Chart Review Biochemically stable. Will reassess tomorrow (Monday), but her next HD will tentatively remain TTS.
[2018-03-18 08:43] LABS: Basophils % 0.1 %; Eosinophils # 0.1 K/mcL (0.0-0.6); Eosinophils % 1.9 %; Hematocrit 28.6 % (35.3-44.9); Hemoglobin 9.2 g/dL (11.5-15.4); Immature Granulocytes % 0.7 % (0-4); Lymphocytes # 0.9 K/mcL (0.6-4.6); Lymphocytes % 13.9 %; Mean Corpuscular HGB Conc 32.2 g/dL (31.6-35.5); Mean Corpuscular Hemoglobin 31.4 pg (28.0-33.3); Mean Corpuscular Volume 97.6 fL (83.0-100.0); Mean Platelet Volume 10.7 fL (9.4-12.4); Monocytes % 14.4 %; Neutrophils # 4.6 K/mcL (1.6-8.9); Platelet Count 116 K/mcL (140-400); Red Blood Count 2.93 M/mcL (3.82-4.97); Red Cell Distribution Width 17.5 % (11.5-14.5)
[2018-03-18] MEDS: hydrALAZINE 25 MG TABLET PO SCH ×2 (09:21→20:40)
[2018-03-18] MEDS: amLODIPine 5 MG TABLET PO SCH ×2 (09:21→20:41)
[2018-03-18] MEDS: Apixaban 5 MG TABLET PO SCH ×2 (09:21→20:42)
[2018-03-18] MEDS: Metoprolol XL (24 HR) Succ 25 MG TAB.ER.24H PO SCH (09:22)
[2018-03-18] MEDS: cloNIDine HCl 0.1 MG TABLET PO SCH ×3 (09:22→20:41)
[2018-03-18] MEDS: predniSONE 10 MG TABLET PO SCH (09:22)
[2018-03-18] MEDS: *HR* Amiodarone 200 MG TABLET PO SCH (09:22)
[2018-03-18] MEDS: Folic Acid 1 MG TABLET PO SCH (09:22)
--- NOTE | 2018-03-18 12:06 | Event Note ---
Date of Encounter: 03/18/18 Time of Encounter: 08:45 Please continue to provide wound care per wound care orders. No surgical intervention required at this time. Surgery will sign off Patient will need follow up with wound care 1 week after discharge Will reassess patient at your request or consult.
[2018-03-18] MEDS: *HR* HYDROcodone/Acet 10/325 mg TABLET PO PRN ×2 (14:57→20:52)
[2018-03-18] MEDS: Meropenem 500 MG in Water for inj. (sterile) 20 ML 5 ML IVP SCH (20:43)
[2018-03-19] MEDS: *HR* FentaNYL PATCH 12 MCG PATCH TD SCH (00:07)
[2018-03-19] MEDS: Ondansetron 4 MG/2 ML VIAL IVP SCH ×4 (00:10→17:40)
[2018-03-19] MEDS: Gentamicin Oint 15 GM TUBE TP SCH (00:15)
[2018-03-19 05:56] LABS: Calcium 8.4 mg/dL (8.6-10.3); Magnesium 1.8 mg/dL (1.6-2.6); Phosphorous 2.7 mg/dL (2.7-4.5); Potassium 5.4 mEq/L (3.5-5.1)
[2018-03-19] MEDS: hydrALAZINE 25 MG TABLET PO SCH ×2 (07:47→22:14)
[2018-03-19] MEDS: cloNIDine HCl 0.1 MG TABLET PO SCH ×3 (07:47→22:15)
[2018-03-19] MEDS: amLODIPine 5 MG TABLET PO SCH ×2 (07:48→22:16)
--- NOTE | 2018-03-19 07:49 | Internal Med Progress Note ---
Hospitalist Progress Note - Encounter Date of Encounter: 03/19/18 Time of Encounter: 07:45 - Subjective Interval History: No acute events overnight - Exam Vitals: Temp Pulse Resp BP Pulse Ox 97.7 F 64 18 92/59 95 03/19/18 07:30 03/19/18 07:30 03/19/18 07:30 03/19/18 07:30 03/19/18 07:30 Exam: Gen - Awake, alert, oriented x 3, no acute distress HEENT - NCAT, PERRLA, EOMI, hearing grossly intact, oropharynx benign CV - RRR, normal S1 and S2, no M/R/G, no BLE edema Resp - Normal WOB, CTAB, no W/R/R GI - Soft, NT/ND, obese abdomen with foul smelling ulcers Skin - Warm, dry, no rashes/lesions/ulcers Psych - Normal mood and affect, no depression or anxiety - Assessment and Plan (1) Wound infection Current Visit: Yes Status: Acute Assessment and Plan: Pt has foul smelling draining abdominal ulcers. Has had previous cultures growing enterobacter, proteus and pseudomonas. Has history of non compliance and has been seen in the past by surgery and ID. Will start on vanc and zosyn, obtain wound and blood cultures. -Has been seen by ID and surgery. Antibiotics switched to meropenem based on previous wound culture results. Follow up wound and blood cultures. Surgery following and provided wound care recommendations. -Wound cultures growing gram negative rods. Continue meropenem pending sensitivities (2) GI bleed Current Visit: No Status: Suspected Assessment and Plan: Query GI bleed. hemoglobin fell to 6.2 on 03/16. Has been transfused 2 units PRBC,. Was seen by GI and determined no need for endoscopy as patient has recently had a negative endoscopy. Will resume anticoagulation and monitor CBC (3) ESRD (end stage renal disease) on dialysis Current Visit: No Status: Acute Assessment and Plan: Missed dialysis on monday secondary to not feeling well. Consult renal and resume dialysis per schedule Has resumed dialysis, renal following (4) Noncompliance with renal dialysis Current Visit: No Status: Chronic Assessment and Plan: Resume dialysis (5) Calciphylaxis Current Visit: Yes Status: Chronic Assessment and Plan: Nephrology following. Resume sodium thiosulfate (6) Nausea & vomiting Current Visit: Yes Status: Resolved Assessment and Plan: Possibly secondary to systemic infection vs uremia from missed dialysis. start on zofran. Continue antibiotics and resume dialysis. Nausea and vomiting resolved (7) Wound, open, abdominal wall, anterior Current Visit: No Status: Acute Assessment and Plan: Infected abdominal wound. See #1. Continue antibiotics (8) Anemia in chronic kidney disease (CKD) Current Visit: Yes Status: Chronic Assessment and Plan: Acute blood loss anemia r/o GI bleed with acute on chronic anemia 2/2 to CKD. Continue aranesp Hemoglobin dropped to 6.2 on 03/16. Has been transfused 2 units of PRBC. Hemglobin responded appropriately. Gi consulted and determined no need for endoscopy. Will resume anticoagulation (9) DVT prophylaxis Current Visit: No Status: Acute Assessment and Plan: On apixaban (10) Afib Current Visit: No Status: Chronic Assessment and Plan: Continue amiodarone.Resume apixaban (11) Hypothyroidism Current Visit: Yes Status: Chronic Assessment and Plan: Continue levothyroxine (12) Hypertension Current Visit: Yes Status: Chronic Assessment and Plan: Continue clonidine - Time Spent with Patient Total time spent is greater than 50% in coordination of care (as documented) at patient's floor/unit and/or counseling patient: Internal Medicine: Result - Labs CBC & Chem 7: 03/18/18 08:11 03/19/18 04:47 Labs: Short CBC 03/18/18 Range/Units 08:11 WBC 6.7 (4.3-11.1) K/mcL Hgb 9.2 L (11.5-15.4) g/dL Hct 28.6 L (35.3-44.9) % Plt Count 116 L (140-400) K/mcL Neutrophils # 4.6 (1.6-8.9) K/mcL BMP 03/19/18 04:47 Sodium 136 Potassium 5.4 H Chloride 100 Carbon Dioxide 28 BUN 19 Creatinine 3.54 H Glucose 96 Calcium 8.4 L - ABG Interpretation ABG results: PT/INR, D-dimer PT 21.2 Seconds (9.4-12.1) H 03/16/18 15:40 Consult Discharge Plan - Plan Referrals: Peter Vicente DO [Primary Care Provider] - (2) GI bleed Qualifiers: GI bleed type/associated pathology: unspecified gastrointestinal hemorrhage type Qualified Code(s): K92.2 - Gastrointestinal hemorrhage, unspecified (6) Nausea & vomiting Qualifiers: Vomiting type: unspecified (7) Wound, open, abdominal wall, anterior Qualifiers: Encounter type: initial encounter Qualified Code(s): S31.109A - Unspecified open wound of abdominal wall, unspecified quadrant without penetration into peritoneal cavity, initial encounter (8) Anemia in chronic kidney disease (CKD) Qualifiers: Chronic kidney disease stage: on chronic dialysis Qualified Code(s): N18.6 - End stage renal disease; D63.1 - Anemia in chronic kidney disease; Z99.2 - Dependence on renal dialysis (10) Afib Qualifiers: Atrial fibrillation type: paroxysmal Qualified Code(s): I48.0 - Paroxysmal atrial fibrillation
[2018-03-19] MEDS: Apixaban 5 MG TABLET PO SCH ×2 (10:20→22:15)
[2018-03-19] MEDS: Meropenem 500 MG in Water for inj. (sterile) 20 ML 5 ML IVP SCH ×2 (10:20→22:16)
[2018-03-19] MEDS: *HR* Amiodarone 200 MG TABLET PO SCH (10:21)
[2018-03-19] MEDS: Folic Acid 1 MG TABLET PO SCH (10:21)
[2018-03-19] MEDS: predniSONE 10 MG TABLET PO SCH (10:21)
[2018-03-19] MEDS: Budesonide/Formoterol 160/4.5 1 PUFF INH IH SCH ×2 (11:01→22:27)
--- NOTE | 2018-03-19 11:55 | Nephrology Progress Note ---
Date of Encounter: 03/19/18 Time of Encounter: 09:15 - Assessment and Plan (1) ESRD (end stage renal disease) Current Visit: Yes Status: Chronic End-stage renal disease on hemodialysis, last hemodialysis Monday. No urgent need today Patient will return to standard hemodialysis scheduled Monday for clearance and fluid removal Patient received 25 g IV sodium thiosulfate for calciphylaxis during hemodialysis. There is some hyperkalemia noted on labs today, however this can be resolved with Kayexalate Plan -Hemodialysis tomorrow -Sodium thiosulfate during hemodialysis -Kayexalate this afternoon -Discontinue Potassium chloride supplementation -Renal diet (2) Calciphylaxis Current Visit: Yes Status: Chronic Surgery and wound care on board Management of calciphylaxis with hemodialysis as above Prognosis is poor/guarded (3) Anemia in chronic kidney disease (CKD) Current Visit: Yes Status: Chronic Goal Hgb is 10-11. BARBARA +/- iron as needed. Qualifiers: Chronic kidney disease stage: on chronic dialysis Qualified Code(s): N18.6 - End stage renal disease; D63.1 - Anemia in chronic kidney disease; Z99.2 - Dependence on renal dialysis (4) Noncompliance with renal dialysis Current Visit: No Status: Chronic Chronic, and recurrent. See above. (5) Secondary hyperparathyroidism (of renal origin) Current Visit: Yes Status: Acute Elevated iPTH, so I've added Sensipar (see my note from 03/16, as this is part of the Calciphylaxis strategy). Subjective Principal diagnosis: ESRD Interval history: Patient is resting comfortably in bed at time of examination. She has no acute complaints overnight. Overall she said that she is feeling significantly better than she was previously. Objective - Vital Signs Vital signs: Vital Signs Temp Pulse Resp BP Pulse Ox 03/19/18 11:36 98.6 F 70 18 121/78 95 03/19/18 11:04 18 95 03/19/18 07:30 97.7 F 64 18 92/59 95 03/19/18 05:19 98.2 F 62 16 124/75 93 03/19/18 01:25 98.0 F 63 16 114/72 93 03/18/18 20:01 17 92 03/18/18 19:16 98.0 F 64 18 112/70 93 03/18/18 14:36 113/69 Intake and Output 03/18/18 03/19/18 03/19/18 23:59 07:59 15:59 Intake Total 5 / 5 Balance 5 / 5 Intake: IV Fluids 5 / 5 Merrem 500 MG In Water for inj. 5 / 5 (sterile) 5 ML @ 100 mls/hr IVP Q12H [facility] Rx#:[id number] Other: Weight 77 kg Blood Glucose* 140 87 85 Patient Weight 03/19/18 23:59 Weight 77 kg - General Appearance Exam: General appearance: Present: well-developed, appears started age, obese, chronically ill, fatigue EENT: Present: ATNC, PERRL, mucous membranes moist Neck: Present: supple Respiratory: Present: clear Cardiology: Present: no edema, edema, regular rate, normal S1, normal S2 Dialysis Vascular Access: AV fistula in left upper extremity. Bruit auscultated , thrill palpated Gastrointestinal: Present: normoactive bowel sounds, no tenderness, no guarding , obese Integumentary: Present: warm and dry. Ulceration of skin present on the left abdominal folds which is covered by bandages. Black necrotic tissue on the left third digit of the upper extremity Neurologic: Present: no focal deficit, no asterixis, alert and oriented x3 Musculoskeletal: Present: no deformities Psychiatric: Present: mood/affect appropriate, cooperative - Lab 03/18/18 08:11 03/19/18 04:47 Most recent lab results Calcium 8.4 mg/dL (8.6-10.3) L 03/19/18 04:47 Phosphorus 2.7 mg/dL (2.7-4.5) 03/19/18 04:47 Magnesium 1.8 mg/dL (1.6-2.6) 03/19/18 04:47 Consult Discharge Plan - Plan Referrals: Peter Vicente DO [Primary Care Provider] -
--- NOTE | 2018-03-19 12:25 | Electrocardiograph Report ---
[address] [place], [place] [address] Test Date: 2018-03-15 Pat Name: [facility] Department: [id number] Room: 2A51 Gender: F [employer]: : 1975 Requested By: Nilo Delgado Order Number: [id number] Reading MD: Agapito Cruz Measurements Intervals [place] [address] Rate: 91 P: 78 NE: 172 QRS: 75 QRSD: 82 T: -46 QT: 406 QTc: 500 Interpretive Statements SINUS RHYTHM ANTEROSEPTAL MYOCARDIAL INFARCTION, AGE UNDETERMINED NONSPECIFIC ST-T CHANGES Electronically Signed On 03-19-2018 12:23:53 EDT by Agapito Cruz
[2018-03-19] MEDS: Metoprolol XL (24 HR) Succ 25 MG TAB.ER.24H PO SCH (12:41)
[2018-03-19] MEDS: *HR* HYDROcodone/Acet 10/325 mg TABLET PO PRN (22:55)
[2018-03-20] MEDS: Gentamicin Oint 15 GM TUBE TP SCH ×2 (00:27→22:50)
[2018-03-20] MEDS: Ondansetron 4 MG/2 ML VIAL IVP SCH ×4 (00:38→16:51)
[2018-03-20 06:11] LABS: Calcium 8.6 mg/dL (8.6-10.3); Magnesium 1.8 mg/dL (1.6-2.6); Phosphorous 3.6 mg/dL (2.7-4.5); Potassium 6.6 mEq/L (3.5-5.1)
[2018-03-20] MEDS ORDERED: 0.9 % Sodium Chloride 250 ML IVC PRN (06:33)
--- NOTE | 2018-03-20 08:22 | Infectious Disease Progress No ---
Date of Encounter: 03/20/18 Time of Encounter: 08:15 - Assessment and Plan (1) Wound infection Current Visit: No Status: Acute History of recent admission 01/06/18 for calciphylaxis with necrotic abdominal wounds. Causative organism: unknown, but likely the five microorganisms recently isolated from wound cultures. Previous wound culture 01/12/18 positive for Pseudomonas, Proteus, and E.coli ESBL. Previous wound culture 02/09/18 positive for Enterobacter cloacae complex, Enterobacter aerogenes, and Proteus. Resistant to zosyn. Blood cultures 03/15 are NGTD. Wound culture 03/17: Proteus, GNR#2, GNR#3. Proteus sensitive to meropenem. Followup on blood and wound cultures. Vancomycin and zosyn discontinued. Continue meropenem 500mg q24h, pending susceptibilities. Monitor renal function and for drug toxicity and dose-adjust antibiotics. (2) Nausea & vomiting Current Visit: Yes Status: Resolved Possibly secondary to systemic infection or uremia from missed dialysis. Resolved. Qualifiers: Vomiting type: unspecified Vomiting Intractability: unspecified Qualified Code(s): R11.2 - Nausea with vomiting, unspecified (3) Diarrhea Current Visit: Yes Status: Resolved Resolved. Qualifiers: Diarrhea type: unspecified type Qualified Code(s): R19.7 - Diarrhea, unspecified (4) Pleural effusion Current Visit: No Status: Acute CT abd/pelvis 03/15 showed small volume bilateral pleural effusions and small volume ascites. CXR 03/16 showed increased lung markings, etiology mild pulmonary vascular congestion vs early pneumonia. Patient denies fever, shortness of breath, cough, sputum production. Possibly due to fluid retention from hemodialysis noncompliance. Pneumonia unlikely. Patient back on Mon/Stella/Mon dialysis schedule. 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 Sodium thiosulfate and sensipar. Management per Nephrology. (6) ESRD on hemodialysis Current Visit: Yes Status: Chronic Unknown etiology. Mon/Stella/Sat schedule. Nephrology consulted and following. (7) Anemia in chronic kidney disease (CKD) Current Visit: Yes Status: Chronic On Aranesp. Management per primary team. Qualifiers: Chronic kidney disease stage: on chronic dialysis Qualified Code(s): N18.6 - End stage renal disease; D63.1 - Anemia in chronic kidney disease; Z99.2 - Dependence on renal dialysis (8) Hyperkalemia Current Visit: No Status: Acute Mild hyperkalemia 5.4 yesterday. Today, potassium is 6.6. KCl discontinued. Dialysis today. Management per Nephrology. (9) Afib Current Visit: No Status: Chronic On apixaban and amiodarone. Management per primary team. Qualifiers: Atrial fibrillation type: paroxysmal Qualified Code(s): I48.0 - Paroxysmal atrial fibrillation (10) Hypothyroidism Current Visit: Yes Status: Chronic On levothyroxine. Management per primary team. Qualifiers: Hypothyroidism type: unspecified Qualified Code(s): E03.9 - Hypothyroidism , unspecified (11) Hypertension Current Visit: Yes Status: Chronic Management per primary team. Qualifiers: Hypertension type: essential hypertension Qualified Code(s): I10 - Essential (primary) hypertension (12) Hyperlipidemia Current Visit: Yes Status: Chronic On atorvastatin. Qualifiers: Hyperlipidemia type: unspecified Qualified Code(s): E78.5 - Hyperlipidemia , unspecified (13) Asthma Current Visit: Yes Status: Chronic On singulair and symbicort. Management per primary team. Qualifiers: Asthma severity: unspecified severity Asthma persistence: unspecified Asthma complication type: unspecified Qualified Code(s): J45.909 - Unspecified asthma, uncomplicated (14) History of kidney transplant Current Visit: Yes Status: Chronic Failed in 2007. - Subjective Interval history: Patient seen and examined. Patient is resting comfortably in bed eating breakfast. No acute events overnight. Patient states she's gotten better over the weekend. States her wounds have improved. Denies nausea/vomiting, diarrhea. Denies pain at wound sites. Denies chest pain, shortness of breath, palpitations , swelling. Denies abdominal pain, constipation. Denies fever, chills, weight loss. Denies cough. Denies numbness, tingling. Infect Dis PN-Objective Data - Labs CBC & Chem 7: 03/18/18 08:11 03/20/18 14:00 Labs: Laboratory Results - last 24 hr 03/18/18 03/19/18 03/19/18 20:06 07:27 11:34 Sodium Potassium Chloride Carbon Dioxide BUN Creatinine Est GFR ( Amer) Est GFR (Non-Af Amer) BUN/Creatinine Ratio Glucose POC Glucose 140 H 87 85 Calculated Osmolality Calcium Phosphorus Magnesium 03/19/18 03/19/18 03/20/18 16:58 20:37 05:33 Sodium 134 L Potassium 6.6 H* Chloride 101 Carbon Dioxide 22 L BUN 30 H Creatinine 4.70 H Est GFR ( Amer) 12 L Est GFR (Non-Af Amer) 10 L BUN/Creatinine Ratio 6 Glucose 103 POC Glucose 213 H 159 H Calculated Osmolality 284 Calcium 8.6 Phosphorus 3.6 Magnesium 1.8 Cultures: Cultures 03/17/18 09:40 Wound Culture - Preliminary Abdomen Proteus mirabilis Gram Negative Deric#2 Gram Negative Deric#3 Serology 03/16/18 Range/Units 08:08 Hep Bs Antigen Nonreactive (Nonreactive) Hep Bs Antibody 0.00 mIU/mL Exam - Constitutional Vitals: Temp Pulse Resp BP Pulse Ox 98.5 F 62 16 147/79 93 03/20/18 07:59 03/20/18 07:59 03/20/18 07:59 03/20/18 07:59 03/20/18 07:59 General appearance: cooperative, no acute distress, obese, no febrile - Head Head exam: Present: atraumatic, normal inspection, normocephalic - Eye Eye exam: Present: EOMI, normal appearance, PERRL Pupils: Present: normal accommodation - ENT ENT exam: Present: mucous membranes moist - Neck Neck exam: Present: normal inspection - Respiratory Respiratory exam: Present: CTAB. Absent: rales, respiratory distress, rhonchi, wheezes - Cardiovascular Cardiovascular exam: Present: RRR, +S1, +S2 - GI/Abdominal GI/Abdominal exam: Present: normal bowel sounds, soft. Absent: distended, rebound, tenderness - Extremities Exam Extremities exam: Absent: joint swelling, normal inspection (Wounds with eschar bilaterally, no worsening ), pedal edema, tenderness - Neurological Exam Neurological exam: Present: alert, CN II-XII intact, oriented X3 - Psychiatric Psychiatric exam: Present: flat affect - Skin Additional comments: Purulent ulcers on lower abdominal pannus and left inner thigh. Wounds with eschar on lateral right thigh, right breast, and distal left third digit. No worsening of wounds. Consult Discharge Plan - Plan Referrals: Vicente,Peter, DO [Primary Care Provider] - - Attending Attestation I examined this patient and my medical decision-making was reviewed with the Resident Physician. I agree with the documented findings, disposition and treatment plan as described except to the extent set forth below.
[2018-03-20] MEDS: predniSONE 10 MG TABLET PO SCH (08:38)
[2018-03-20] MEDS: Folic Acid 1 MG TABLET PO SCH (08:38)
[2018-03-20] MEDS: Metoprolol XL (24 HR) Succ 25 MG TAB.ER.24H PO SCH (08:38)
[2018-03-20] MEDS: *HR* Amiodarone 200 MG TABLET PO SCH (08:38)
[2018-03-20] MEDS: cloNIDine HCl 0.1 MG TABLET PO SCH ×3 (08:38→22:49)
[2018-03-20] MEDS: hydrALAZINE 25 MG TABLET PO SCH ×2 (08:39→22:49)
[2018-03-20] MEDS: Meropenem 500 MG in Water for inj. (sterile) 20 ML 5 ML IVP SCH ×2 (08:39→16:51)
[2018-03-20] MEDS: amLODIPine 5 MG TABLET PO SCH ×2 (08:39→22:49)
[2018-03-20] MEDS: Apixaban 5 MG TABLET PO SCH ×2 (08:39→22:49)
--- NOTE | 2018-03-20 08:54 | Nephrology Progress Note ---
Date of Encounter: 03/20/18 Time of Encounter: 09:55 - Assessment and Plan (1) ESRD (end stage renal disease) Current Visit: Yes Status: Chronic End-stage renal disease on hemodialysis, last hemodialysis Monday. Patient scheduled for HD today per typical TTS schedule Patient to receive 25 g IV sodium thiosulfate for calciphylaxis during hemodialysis. Potassium has increased substantially today despite kayexalate yesterday, mild metabolic acidosis Plan -Hemodialysis today -Sodium thiosulfate during hemodialysis -Consult to social service for home health and transport assistance -Renal diet (2) Calciphylaxis Current Visit: Yes Status: Chronic Surgery and wound care on board Patient will see outpatient wound care and receive home health Management of calciphylaxis with hemodialysis as above Prognosis is poor/guarded (3) Anemia in chronic kidney disease (CKD) Current Visit: Yes Status: Chronic Goal Hgb is 10-11. BARBARA +/- iron as needed. Qualifiers: Chronic kidney disease stage: on chronic dialysis Qualified Code(s): N18.6 - End stage renal disease; D63.1 - Anemia in chronic kidney disease; Z99.2 - Dependence on renal dialysis (4) Noncompliance with renal dialysis Current Visit: No Status: Chronic Chronic, and recurrent. See above. (5) Secondary hyperparathyroidism (of renal origin) Current Visit: Yes Status: Acute Elevated iPTH, so I've added Sensipar (see my note from 03/16, as this is part of the Calciphylaxis strategy). Subjective Principal diagnosis: ESRD Interval history: Patient is resting comfortably in bed at time of examination. She has no acute complaints overnight. Overall she said that she is feeling significantly better than she was previously. Objective - Vital Signs Vital signs: Vital Signs Temp Pulse Resp BP Pulse Ox 03/20/18 07:59 98.5 F 62 16 147/79 93 03/20/18 04:09 98.2 F 61 15 136/82 96 03/19/18 23:23 98.3 F 75 15 127/77 94 03/19/18 22:28 15 122/74 92 03/19/18 19:57 98.6 F 64 15 122/74 92 03/19/18 16:17 98.6 F 69 17 115/71 90 03/19/18 11:36 98.6 F 70 18 121/78 95 09/03/18 11:04 18 95 Intake and Output 09/03/18 09/04/18 09/04/18 23:59 07:59 15:59 Intake Total 245 / 245 240 / 240 Balance 245 / 245 240 / 240 Intake: IV Fluids 5 / 5 Merrem 500 MG In Water for inj. 5 / 5 (sterile) 5 ML @ 100 mls/hr IVP Q12H [facility] Rx#:[id number] Oral 240 / 240 240 / 240 Other: Meal Dinner Breakfast Percent of Meal Consumed 90% 80% Weight 80.9 kg Blood Glucose* 159 95 - General Appearance Exam: General appearance: Present: well-developed, appears started age, obese, chronically ill, fatigue EENT: Present: ATNC, PERRL, mucous membranes moist Neck: Present: supple Respiratory: Present: clear Cardiology: Present: no edema, edema, regular rate, normal S1, normal S2 Dialysis Vascular Access: AV fistula in left upper extremity. Bruit auscultated , thrill palpated Gastrointestinal: Present: normoactive bowel sounds, no tenderness, no guarding , obese Integumentary: Present: warm and dry. Ulceration of skin present on the left abdominal folds which is covered by bandages. Black necrotic tissue on the left third digit of the upper extremity Neurologic: Present: no focal deficit, no asterixis, alert and oriented x3 Musculoskeletal: Present: no deformities Psychiatric: Present: mood/affect appropriate, cooperative - Lab 03/18/18 08:11 03/20/18 05:33 Most recent lab results Calcium 8.6 mg/dL (8.6-10.3) 03/20/18 05:33 Phosphorus 3.6 mg/dL (2.7-4.5) 03/20/18 05:33 Magnesium 1.8 mg/dL (1.6-2.6) 03/20/18 05:33 Consult Discharge Plan - Plan Referrals: Peter Vicente DO [Primary Care Provider] -
[2018-03-20] MEDS ORDERED: SODIUM THIOSULFATE IVPB SCH (09:00)
[2018-03-20] MEDS: Budesonide/Formoterol 160/4.5 1 PUFF INH IH SCH ×2 (10:48→20:04)
[2018-03-20] MEDS: *HR* HYDROcodone/Acet 10/325 mg TABLET PO PRN (12:23)
--- NOTE | 2018-03-20 13:00 | Internal Med Progress Note ---
Hospitalist Progress Note - Encounter Date of Encounter: 03/20/18 Time of Encounter: 12:46 - Subjective Interval History: Patient seen and examined this morning. - Exam Vitals: Temp Pulse Resp BP Pulse Ox 98.3 F 63 16 121/54 93 03/20/18 11:22 03/20/18 11:22 03/20/18 11:22 03/20/18 11:22 03/20/18 11:22 Exam: Gen - Awake, alert, oriented x 3, no acute distress HEENT - NCAT, PERRLA, EOMI, hearing grossly intact, oropharynx benign CV - RRR, normal S1 and S2, no M/R/G, no BLE edema Resp - Normal WOB, CTAB, no W/R/R GI - Soft, NT/ND, obese abdomen with foul smelling ulcers Skin - Warm, dry, no rashes/lesions/ulcers Psych - Normal mood and affect, no depression or anxiety - Assessment and Plan (1) Wound, open, abdominal wall, anterior Current Visit: No Status: Acute (2) Calciphylaxis Current Visit: Yes Status: Chronic (3) Anemia in chronic kidney disease (CKD) Current Visit: Yes Status: Chronic (4) DVT prophylaxis Current Visit: No Status: Acute (5) Afib Current Visit: No Status: Chronic (6) GI bleed Current Visit: No Status: Suspected (7) ESRD (end stage renal disease) on dialysis Current Visit: No Status: Acute (8) Noncompliance with renal dialysis Current Visit: No Status: Chronic (9) Wound infection Current Visit: Yes Status: Acute (10) Nausea & vomiting Current Visit: Yes Status: Resolved (11) Hypothyroidism Current Visit: Yes Status: Chronic (12) Hypertension Current Visit: Yes Status: Chronic - Summary of Assessment and Plan Summary of Assessment and Plan: Wound infection - Pt has necrotic draining abdominal ulcers and h/o calciphylaxis. Has had previous cultures growing enterobacter, proteus and pseudomonas. - started on vanc and zosyn. BG NGTD from 03/15. - ID and surgery following. Antibiotics switched to meropenem based on previous wound culture results. Surgery following and provided wound care recommendations. - Wound cultures growing gram negative rods. Previous wound culture 01/12/18 positive for Pseudomonas, Proteus, and E.coli ESBL. wound culture from 02/09/18 positive for Enterobacter cloacae complex, Enterobacter aerogenes, and Proteus. Resistant to zosyn. Blood cultures 03/15 are NGTD. Wound culture ffrom 03/17: Proteus and GNR. Proteus sensitive to meropenem. - Continue meropenem pending sensitivities. GI bleed - Query GI bleed. hemoglobin fell to 6.2 on 03/16. - s/p 2 units PRBC. - Was seen by GI and determined no need for endoscopy as patient has recently had a negative endoscopy. Will resume anticoagulation and monitor CBC ESRD - HD on TTS - Renal following. Calciphylaxis - Nephrology following. Resume sodium thiosulfate Anemia in chronic kidney disease (CKD) - Acute blood loss anemia r/o GI bleed with acute on chronic anemia 2/2 to CKD. Continue aranesp Hemoglobin dropped to 6.2 on 03/16. Has been transfused 2 units of PRBC. Hemglobin responded appropriately. Gi consulted and determined no need for endoscopy. Will resume anticoagulation Afib - Continue amiodarone. - apixaban resumed Asthma - c/w singulair and symbicort. Hypothyroidism - c/w home levothyroxine Hypertension - Continue clonidine DVT prophylaxis On apixaban - Time Spent with Patient Total time spent is greater than 50% in coordination of care (as documented) at patient's floor/unit and/or counseling patient: Internal Medicine: Result - Labs CBC & Chem 7: 03/18/18 08:11 03/20/18 05:33 Labs: BMP 03/20/18 05:33 Sodium 134 L Potassium 6.6 H* Chloride 101 Carbon Dioxide 22 L BUN 30 H Creatinine 4.70 H Glucose 103 Calcium 8.6 - ABG Interpretation ABG results: PT/INR, D-dimer PT 21.2 Seconds (9.4-12.1) H 03/16/18 15:40 Consult Discharge Plan - Plan Referrals: Peter Vicente DO [Primary Care Provider] - (1) Wound, open, abdominal wall, anterior Qualifiers: Encounter type: initial encounter Qualified Code(s): S31.109A - Unspecified open wound of abdominal wall, unspecified quadrant without penetration into peritoneal cavity, initial encounter (3) Anemia in chronic kidney disease (CKD) Qualifiers: Chronic kidney disease stage: on chronic dialysis Qualified Code(s): N18.6 - End stage renal disease; D63.1 - Anemia in chronic kidney disease; Z99.2 - Dependence on renal dialysis (5) Afib Qualifiers: Atrial fibrillation type: paroxysmal Qualified Code(s): I48.0 - Paroxysmal atrial fibrillation (6) GI bleed Qualifiers: GI bleed type/associated pathology: unspecified gastrointestinal hemorrhage type Qualified Code(s): K92.2 - Gastrointestinal hemorrhage, unspecified (10) Nausea & vomiting Qualifiers: Vomiting type: unspecified
[2018-03-20] MEDS: SODIUM THIOSULFATE IVPB SCH (15:05)
[2018-03-21] MEDS: Ondansetron 4 MG/2 ML VIAL IVP SCH ×4 (00:41→17:19)
[2018-03-21] MEDS: *HR* HYDROcodone/Acet 10/325 mg TABLET PO PRN ×2 (00:42→22:37)
[2018-03-21 05:06] LABS: Magnesium 1.7 mg/dL (1.6-2.6); Phosphorous 2.8 mg/dL (2.7-4.5)
[2018-03-21 05:29] LABS: Calcium 8.2 mg/dL (8.6-10.3); Potassium 4.3 mEq/L (3.5-5.1)
[2018-03-21] MEDS: Budesonide/Formoterol 160/4.5 1 PUFF INH IH SCH ×2 (07:45→19:53)
--- NOTE | 2018-03-21 08:04 | Infectious Disease Progress No ---
Date of Encounter: 03/21/18 Time of Encounter: 08:00 - Assessment and Plan (1) Wound infection Current Visit: No Status: Acute History of recent admission 01/06/18 for calciphylaxis with necrotic abdominal wounds. Causative organism: Proteus, Enterobacter aerogenes, E.coli. Previous wound culture 01/12/18 positive for Pseudomonas, Proteus, and E.coli ESBL. Previous wound culture 02/09/18 positive for Enterobacter cloacae complex, Enterobacter aerogenes, and Proteus. Resistant to zosyn. Blood cultures 03/15 are negative. Wound culture 03/17: Proteus, Enterobacter aerogenes, E.coli. Sensitive to meropenem. Vancomycin and zosyn discontinued. Day 6 of meropenem 500mg q24h. Continue meropenem until 03/25/18 Monitor renal function and for drug toxicity and dose-adjust antibiotics. (2) Nausea & vomiting Current Visit: Yes Status: Resolved Possibly secondary to systemic infection or uremia from missed dialysis. Resolved. Qualifiers: Vomiting type: unspecified Vomiting Intractability: unspecified Qualified Code(s): R11.2 - Nausea with vomiting, unspecified (3) Diarrhea Current Visit: Yes Status: Resolved Resolved. Qualifiers: Diarrhea type: unspecified type Qualified Code(s): R19.7 - Diarrhea, unspecified (4) Pleural effusion Current Visit: No Status: Acute CT abd/pelvis 03/15 showed small volume bilateral pleural effusions and small volume ascites. CXR 03/16 showed increased lung markings, etiology mild pulmonary vascular congestion vs early pneumonia. Patient denies fever, shortness of breath, cough, sputum production. Possibly due to fluid retention from hemodialysis noncompliance. Pneumonia unlikely. Patient back on Mon/Stella/Mon dialysis schedule. 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 Sodium thiosulfate and sensipar. Management per Nephrology. (6) ESRD on hemodialysis Current Visit: Yes Status: Chronic Unknown etiology. Mon/Stella/Mon schedule. Nephrology consulted and following. (7) Anemia in chronic kidney disease (CKD) Current Visit: Yes Status: Chronic On Aranesp. Management per primary team. Qualifiers: Chronic kidney disease stage: on chronic dialysis Qualified Code(s): N18.6 - End stage renal disease; D63.1 - Anemia in chronic kidney disease; Z99.2 - Dependence on renal dialysis (8) Hyperkalemia Current Visit: No Status: Resolved Potassium is normal. Management per Nephrology. (9) Afib Current Visit: No Status: Chronic On apixaban and amiodarone. Management per primary team. Qualifiers: Atrial fibrillation type: paroxysmal Qualified Code(s): I48.0 - Paroxysmal atrial fibrillation (10) Hypothyroidism Current Visit: Yes Status: Chronic On levothyroxine. Management per primary team. Qualifiers: Hypothyroidism type: unspecified Qualified Code(s): E03.9 - Hypothyroidism , unspecified (11) Hypertension Current Visit: Yes Status: Chronic Management per primary team. Qualifiers: Hypertension type: essential hypertension Qualified Code(s): I10 - Essential (primary) hypertension (12) Hyperlipidemia Current Visit: Yes Status: Chronic On atorvastatin. Qualifiers: Hyperlipidemia type: unspecified Qualified Code(s): E78.5 - Hyperlipidemia , unspecified (13) Asthma Current Visit: Yes Status: Chronic On singulair and symbicort. Management per primary team. Qualifiers: Asthma severity: unspecified severity Asthma persistence: unspecified Asthma complication type: unspecified Qualified Code(s): J45.909 - Unspecified asthma, uncomplicated (14) History of kidney transplant Current Visit: Yes Status: Chronic Failed in 2007. - Subjective Interval history: Patient seen and examined. Patient is sleeping in bed. No acute events overnight. Patient is irritable and states people keep waking her up. States she 's otherwise fine. States left abdominal wound is sore. Denies nausea/vomiting, diarrhea. Denies chest pain, shortness of breath, palpitations, swelling. Denies abdominal pain, constipation. Denies fever, chills, weight loss. Denies cough. Denies numbness, tingling. Infect Dis PN-Objective Data - Labs CBC & Chem 7: 03/18/18 08:11 03/22/18 05:51 Labs: Laboratory Results - last 24 hr 03/20/18 03/20/18 03/21/18 14:00 16:39 04:25 Sodium 138 Potassium 3.3 L D 4.3 D Chloride 97 L Carbon Dioxide 32 H BUN 13 Creatinine 2.66 H Est GFR ( Amer) 24 L Est GFR (Non-Af Amer) 20 L BUN/Creatinine Ratio 5 L Glucose 120 H POC Glucose 104 H Calculated Osmolality 287 Calcium 8.2 L Phosphorus Magnesium 03/21/18 04:25 Sodium Potassium Chloride Carbon Dioxide BUN Creatinine Est GFR ( Amer) Est GFR (Non-Af Amer) BUN/Creatinine Ratio Glucose POC Glucose Calculated Osmolality Calcium Phosphorus 2.8 Magnesium 1.7 Exam - Constitutional Vitals: Temp Pulse Resp BP Pulse Ox 98.1 F 66 16 142/81 95 03/21/18 03:41 03/21/18 03:41 03/21/18 07:46 03/21/18 03:41 03/21/18 07:46 General appearance: cooperative, no acute distress, obese, no febrile - Head Head exam: Present: atraumatic, normal inspection, normocephalic - Eye Eye exam: Present: EOMI, normal appearance, PERRL Pupils: Present: normal accommodation - ENT ENT exam: Present: mucous membranes moist - Neck Neck exam: Present: normal inspection - Respiratory Respiratory exam: Present: CTAB. Absent: rales, respiratory distress, rhonchi, wheezes - Cardiovascular Cardiovascular exam: Present: RRR, +S1, +S2 - GI/Abdominal GI/Abdominal exam: Present: normal bowel sounds, soft, tenderness. Absent: distended - Extremities Exam Extremities exam: Present: normal inspection. Absent: joint swelling, pedal edema, tenderness - Neurological Exam Neurological exam: Present: alert, oriented X3, no focal deficits - Psychiatric Psychiatric exam: Present: agitated, flat affect - Skin Skin exam: Present: dry (Wounds associated with calciphylaxis on abdomen, right breast, legs, and left finger. ), warm Consult Discharge Plan - Plan Referrals: Peter Vicente DO [Primary Care Provider] - - Attending Attestation I examined this patient and my medical decision-making was reviewed with the Resident Physician. I agree with the documented findings, disposition and treatment plan as described except to the extent set forth below.
--- NOTE | 2018-03-21 08:18 | Nephrology Progress Note ---
Date of Encounter: 03/21/18 Time of Encounter: 11:40 - Assessment and Plan (1) ESRD (end stage renal disease) Current Visit: Yes Status: Chronic End-stage renal disease on hemodialysis, last hemodialysis Monday. Patient scheduled for HD today per typical TTS schedule Patient to receive 25 g IV sodium thiosulfate for calciphylaxis during hemodialysis. Potassium has increased substantially today despite kayexalate yesterday, mild metabolic acidosis Plan -Hemodialysis per TTS schedule. Patient has poor compliance -Sodium thiosulfate during hemodialysis -Consult to social service for home health and transport assistance -Renal diet (2) Calciphylaxis Current Visit: Yes Status: Chronic Surgery and wound care on board Patient will see outpatient wound care and receive home health Management of calciphylaxis with hemodialysis as above Prognosis is poor/guarded (3) Anemia in chronic kidney disease (CKD) Current Visit: Yes Status: Chronic Goal Hgb is 10-11. BARBARA +/- iron as needed. Qualifiers: Chronic kidney disease stage: on chronic dialysis Qualified Code(s): N18.6 - End stage renal disease; D63.1 - Anemia in chronic kidney disease; Z99.2 - Dependence on renal dialysis (4) Noncompliance with renal dialysis Current Visit: No Status: Chronic Chronic, and recurrent. See above. (5) Secondary hyperparathyroidism (of renal origin) Current Visit: Yes Status: Acute Elevated iPTH, so I've added Sensipar (see my note from 03/16, as this is part of the Calciphylaxis strategy). Subjective Principal diagnosis: ESRD Interval history: Patient is resting comfortably in bed at time of examination. She has no acute complaints overnight. Overall she said that she is feeling significantly better than she was previously. Objective - Vital Signs Vital signs: Vital Signs Temp Pulse Resp BP Pulse Ox 03/21/18 08:13 98.2 F 70 16 117/73 94 03/21/18 07:46 16 95 03/21/18 03:41 98.1 F 66 16 142/81 95 03/21/18 00:17 99.0 F 69 16 133/81 93 03/20/18 22:52 92 03/20/18 20:04 18 92 03/20/18 19:43 99.2 F 66 17 120/74 93 03/20/18 16:41 98.9 F 71 16 124/71 92 03/20/18 16:22 97.5 F L 18 118/68 03/20/18 16:10 109/69 03/20/18 15:55 105/70 03/20/18 15:40 107/63 03/20/18 15:25 109/65 03/20/18 15:10 102/63 03/20/18 14:55 99/63 03/20/18 14:40 116/68 03/20/18 14:25 109/72 03/20/18 14:10 108/67 03/20/18 13:55 116/65 Intake and Output 03/20/18 03/21/18 03/21/18 23:59 07:59 15:59 Intake Total 5 / 5 Output Total 1600 / 1600 Balance -1595 / -1595 Intake: IV Fluids 5 / 5 Merrem 500 MG In Water for inj. 5 / 5 (sterile) 5 ML @ 100 mls/hr IVP DAILY@1800 OSMAR Rx#: [id number] Output: Urine 0 / 0 Total Dialysis (HD) Output 1600 / 1600 Other: Weight 77.6 kg Blood Glucose* 146 112 Hemodialysis Net Fluid Removed 1000 (mL) Patient Weight 03/21/18 23:59 Weight 77.6 kg - General Appearance Exam: General appearance: Present: well-developed, appears started age, obese, chronically ill, fatigue EENT: Present: ATNC, PERRL, mucous membranes moist Neck: Present: supple Respiratory: Present: clear Cardiology: Present: no edema, edema, regular rate, normal S1, normal S2 Dialysis Vascular Access: AV fistula in left upper extremity. Bruit auscultated , thrill palpated Gastrointestinal: Present: normoactive bowel sounds, no tenderness, no guarding , obese Integumentary: Present: warm and dry. Ulceration of skin present on the left abdominal folds which is covered by bandages. Black necrotic tissue on the left third digit of the upper extremity. Ulceration present on the aerola of bilateral breasts Neurologic: Present: no focal deficit, no asterixis, alert and oriented x3 Musculoskeletal: Present: no deformities Psychiatric: Present: mood/affect appropriate, cooperative - Lab 03/18/18 08:11 03/21/18 04:25 Most recent lab results Calcium 8.2 mg/dL (8.6-10.3) L 03/21/18 04:25 Phosphorus 2.8 mg/dL (2.7-4.5) 03/21/18 04:25 Magnesium 1.7 mg/dL (1.6-2.6) 03/21/18 04:25 Consult Discharge Plan - Plan Referrals: Peter Vicente DO [Primary Care Provider] -
[2018-03-21] MEDS: Folic Acid 1 MG TABLET PO SCH (08:50)
[2018-03-21] MEDS: predniSONE 10 MG TABLET PO SCH (08:50)
[2018-03-21] MEDS: Metoprolol XL (24 HR) Succ 25 MG TAB.ER.24H PO SCH (08:50)
[2018-03-21] MEDS: *HR* Amiodarone 200 MG TABLET PO SCH (08:50)
[2018-03-21] MEDS: hydrALAZINE 25 MG TABLET PO SCH (08:51)
[2018-03-21] MEDS: amLODIPine 5 MG TABLET PO SCH ×2 (08:51→21:18)
[2018-03-21] MEDS: cloNIDine HCl 0.1 MG TABLET PO SCH ×3 (08:51→21:18)
[2018-03-21] MEDS: Apixaban 5 MG TABLET PO SCH ×2 (08:51→21:18)
--- NOTE | 2018-03-21 10:41 | Internal Med Progress Note ---
Hospitalist Progress Note - Encounter Date of Encounter: 03/21/18 Time of Encounter: 10:41 - Subjective Interval History: Patient seen and examined this morning. Denies new complains. Did not do PT as she felt tired because she did not get sleep. - Exam Vitals: Temp Pulse Resp BP Pulse Ox 98.2 F 70 16 117/73 94 03/21/18 08:13 03/21/18 08:13 03/21/18 08:13 03/21/18 08:13 03/21/18 08:13 Exam: Gen - Awake, alert, oriented x 3, no acute distress HEENT - NCAT, PERRLA, EOMI, hearing grossly intact, oropharynx benign CV - RRR, normal S1 and S2, no M/R/G, no BLE edema Resp - Normal WOB, CTAB, no W/R/R GI - Soft, NT/ND,obese, Skin - Warm, Abdominal wounds with dressing. Necrotic wounds on hand. Psych - Normal mood and affect, no depression or anxiety - Assessment and Plan (1) Wound, open, abdominal wall, anterior Current Visit: No Status: Acute (2) Calciphylaxis Current Visit: Yes Status: Chronic (3) Anemia in chronic kidney disease (CKD) Current Visit: Yes Status: Chronic (4) DVT prophylaxis Current Visit: No Status: Acute (5) Afib Current Visit: No Status: Chronic (6) GI bleed Current Visit: No Status: Suspected (7) ESRD (end stage renal disease) on dialysis Current Visit: No Status: Acute (8) Noncompliance with renal dialysis Current Visit: No Status: Chronic (9) Wound infection Current Visit: Yes Status: Acute (10) Nausea & vomiting Current Visit: Yes Status: Resolved (11) Hypothyroidism Current Visit: Yes Status: Chronic (12) Hypertension Current Visit: Yes Status: Chronic - Summary of Assessment and Plan Summary of Assessment and Plan: Wound infection - Pt has necrotic draining abdominal ulcers and h/o calciphylaxis. Has had previous cultures growing enterobacter, proteus and pseudomonas. - started on vanc and zosyn. BG NGTD from 03/15. - antibiotics switched to meropenem based on previous wound culture results. Surgery following and provided wound care recommendations. - Wound cultures growing gram negative rods. Previous wound culture 01/12/18 positive for Pseudomonas, Proteus, and E.coli ESBL. wound culture from 02/09/18 positive for Enterobacter cloacae complex, Enterobacter aerogenes, and Proteus. Resistant to zosyn. Blood cultures 03/15 are NGTD. Wound culture ffrom 03/17: Proteus and E coli and enterobacter sensitive to meropenem. - Continue meropenem for 1 more day per ID to total 7 day abx treatment. - Plan for DC after abx treatment finish and placement. f/u PT recommendation. Patient refusing to go to previous NH. will f/u SW/CM. GI bleed - Query GI bleed. hemoglobin fell to 6.2 on 03/16. - s/p 2 units PRBC. - Was seen by GI and determined no need for endoscopy as patient has recently had a negative endoscopy. Will resume anticoagulation and monitor CBC ESRD - HD on TTS - Renal following. Calciphylaxis - Nephrology following. - Resumed on sodium thiosulfate Anemia in chronic kidney disease (CKD) - Acute blood loss anemia r/o GI bleed with acute on chronic anemia 2/2 to CKD. Continue aranesp Hemoglobin dropped to 6.2 on 03/16. Has been transfused 2 units of PRBC. Hemglobin responded appropriately. Gi consulted and determined no need for endoscopy. Will resume anticoagulation Afib - Continue amiodarone. - apixaban resumed Asthma - c/w singulair and symbicort. Hypothyroidism - c/w home levothyroxine Hypertension - Continue clonidine DVT prophylaxis On apixaban - Time Spent with Patient Total time spent is greater than 50% in coordination of care (as documented) at patient's floor/unit and/or counseling patient: Internal Medicine: Result - Labs CBC & Chem 7: 03/18/18 08:11 03/21/18 04:25 Labs: BMP 03/20/18 03/21/18 14:00 04:25 Sodium 138 Potassium 3.3 L D 4.3 D Chloride 97 L Carbon Dioxide 32 H BUN 13 Creatinine 2.66 H Glucose 120 H Calcium 8.2 L - ABG Interpretation ABG results: PT/INR, D-dimer PT 21.2 Seconds (9.4-12.1) H 03/16/18 15:40 Consult Discharge Plan - Plan Referrals: Peter Vicente DO [Primary Care Provider] - (1) Wound, open, abdominal wall, anterior Qualifiers: Encounter type: initial encounter Qualified Code(s): S31.109A - Unspecified open wound of abdominal wall, unspecified quadrant without penetration into peritoneal cavity, initial encounter (3) Anemia in chronic kidney disease (CKD) Qualifiers: Chronic kidney disease stage: on chronic dialysis Qualified Code(s): N18.6 - End stage renal disease; D63.1 - Anemia in chronic kidney disease; Z99.2 - Dependence on renal dialysis (5) Afib Qualifiers: Atrial fibrillation type: paroxysmal Qualified Code(s): I48.0 - Paroxysmal atrial fibrillation (6) GI bleed Qualifiers: GI bleed type/associated pathology: unspecified gastrointestinal hemorrhage type Qualified Code(s): K92.2 - Gastrointestinal hemorrhage, unspecified (10) Nausea & vomiting Qualifiers: Vomiting type: unspecified Vomiting Intractability: unspecified Qualified Code(s): R11.2 - Nausea with vomiting, unspecified (11) Hypothyroidism Qualifiers: Hypothyroidism type: unspecified Qualified Code(s): E03.9 - Hypothyroidism, unspecified (12) Hypertension Qualifiers: Hypertension type: essential hypertension Qualified Code(s): I10 - Essential (primary) hypertension
[2018-03-21] MEDS: Meropenem 500 MG in Water for inj. (sterile) 20 ML 5 ML IVP SCH (17:19)
[2018-03-22] MEDS: Ondansetron 4 MG/2 ML VIAL IVP SCH ×4 (00:42→16:12)
[2018-03-22] MEDS: *HR* FentaNYL PATCH 12 MCG PATCH TD SCH (00:45)
[2018-03-22] MEDS: Gentamicin Oint 15 GM TUBE TP SCH (02:30)
[2018-03-22] MEDS: hydrALAZINE 25 MG TABLET PO SCH ×2 (06:22→08:46)
[2018-03-22] MEDS ORDERED: 0.9 % Sodium Chloride 1,000 ML ONE (07:28)
[2018-03-22] MEDS: Budesonide/Formoterol 160/4.5 1 PUFF INH IH SCH (07:54)
[2018-03-22 08:05] LABS: Calcium 8.1 mg/dL (8.6-10.3); Potassium 4.9 mEq/L (3.5-5.1)
[2018-03-22 08:08] LABS: Magnesium 1.8 mg/dL (1.6-2.6); Phosphorous 3.9 mg/dL (2.7-4.5)
[2018-03-22] MEDS: predniSONE 10 MG TABLET PO SCH (08:45)
[2018-03-22] MEDS: Folic Acid 1 MG TABLET PO SCH (08:45)
[2018-03-22] MEDS: amLODIPine 5 MG TABLET PO SCH (08:45)
[2018-03-22] MEDS: Apixaban 5 MG TABLET PO SCH (08:45)
[2018-03-22] MEDS: Metoprolol XL (24 HR) Succ 25 MG TAB.ER.24H PO SCH (08:45)
[2018-03-22] MEDS: *HR* Amiodarone 200 MG TABLET PO SCH (08:46)
[2018-03-22] MEDS: cloNIDine HCl 0.1 MG TABLET PO SCH ×3 (08:46→16:11)
--- NOTE | 2018-03-22 08:49 | Infectious Disease Progress No ---
Date of Encounter: 03/22/18 Time of Encounter: 08:45 - Assessment and Plan (1) Wound infection Status: Acute History of recent admission 01/06/18 for calciphylaxis with necrotic abdominal wounds. Causative organism: Proteus, Enterobacter aerogenes, E.coli. Previous wound culture 01/12/18 positive for Pseudomonas, Proteus, and E.coli ESBL. Previous wound culture 02/09/18 positive for Enterobacter cloacae complex, Enterobacter aerogenes, and Proteus. Resistant to zosyn. Blood cultures 03/15 are negative. Wound culture 03/17: Proteus, Enterobacter aerogenes, E.coli. Sensitive to meropenem. Vancomycin and zosyn discontinued. Day 7 of meropenem 500mg q24h. Continue meropenem to 03/25/18 for 10 day course. Monitor renal function and for drug toxicity and dose-adjust antibiotics. (2) Nausea & vomiting Status: Resolved Possibly secondary to systemic infection or uremia from missed dialysis. Resolved. Qualifiers: Vomiting type: unspecified Vomiting Intractability: unspecified Qualified Code(s): R11.2 - Nausea with vomiting, unspecified (3) Diarrhea Status: Resolved Resolved. Qualifiers: Diarrhea type: unspecified type Qualified Code(s): R19.7 - Diarrhea, unspecified (4) Pleural effusion Status: Acute CT abd/pelvis 03/15 showed small volume bilateral pleural effusions and small volume ascites. CXR 03/16 showed increased lung markings, etiology mild pulmonary vascular congestion vs early pneumonia. Patient denies fever, shortness of breath, cough, sputum production. Possibly due to fluid retention from hemodialysis noncompliance. Pneumonia unlikely. Patient back on Mon/Mon/Mon dialysis schedule. (5) Calciphylaxis Status: Chronic History of calciphylaxis diagnosed in 2017 with multiple necrotic abdominal ulcers. Sodium thiosulfate and sensipar. Management per Nephrology. (6) ESRD on hemodialysis Status: Chronic Unknown etiology. Mon/Stella/Mon schedule. Nephrology consulted and following. (7) Anemia in chronic kidney disease (CKD) Status: Chronic On Aranesp. Management per primary team. Qualifiers: Chronic kidney disease stage: on chronic dialysis Qualified Code(s): N18.6 - End stage renal disease; D63.1 - Anemia in chronic kidney disease; Z99.2 - Dependence on renal dialysis (8) Afib Status: Chronic On apixaban and amiodarone. Management per primary team. Qualifiers: Atrial fibrillation type: paroxysmal Qualified Code(s): I48.0 - Paroxysmal atrial fibrillation (9) Hypothyroidism Status: Chronic On levothyroxine. Management per primary team. Qualifiers: Hypothyroidism type: unspecified Qualified Code(s): E03.9 - Hypothyroidism , unspecified (10) Hypertension Status: Chronic Management per primary team. Qualifiers: Hypertension type: essential hypertension Qualified Code(s): I10 - Essential (primary) hypertension (11) Hyperlipidemia Status: Chronic On atorvastatin. Qualifiers: Hyperlipidemia type: unspecified Qualified Code(s): E78.5 - Hyperlipidemia , unspecified (12) Asthma Status: Chronic On singulair and symbicort. Management per primary team. Qualifiers: Asthma severity: unspecified severity Asthma persistence: unspecified Asthma complication type: unspecified Qualified Code(s): J45.909 - Unspecified asthma, uncomplicated (13) History of kidney transplant Status: Chronic Failed in 2007. - Subjective Interval history: Patient seen and examined. Patient is resting comfortably in bed. No acute events overnight. States she's fine, she feels "better" than yesterday. Reports less pain in wounds. Denies nausea/vomiting, diarrhea. Denies chest pain, shortness of breath, palpitations, swelling. Denies abdominal pain, constipation. Denies fever, chills, weight loss. Denies cough. Denies numbness, tingling. Infect Dis PN-Objective Data - Labs CBC & Chem 7: 03/18/18 08:11 03/22/18 05:51 Labs: Laboratory Results - last 24 hr 03/21/18 03/21/18 03/21/18 08:11 11:42 16:17 Sodium Potassium Chloride Carbon Dioxide BUN Creatinine Est GFR ( Amer) Est GFR (Non-Af Amer) BUN/Creatinine Ratio Glucose POC Glucose 112 H 99 165 H Calculated Osmolality Calcium Phosphorus Magnesium 03/22/18 03/22/18 05:51 05:51 Sodium 137 Potassium 4.9 Chloride 97 L Carbon Dioxide 27 BUN 21 H Creatinine 4.05 H Est GFR ( Amer) 15 L Est GFR (Non-Af Amer) 12 L BUN/Creatinine Ratio 5 L Glucose 92 POC Glucose Calculated Osmolality 287 Calcium 8.1 L Phosphorus 3.9 Magnesium 1.8 Exam - Constitutional Vitals: Temp Pulse Resp BP Pulse Ox 97.9 F 66 19 137/82 98 03/22/18 08:25 03/22/18 08:25 03/22/18 08:25 03/22/18 08:25 03/22/18 08:25 General appearance: cooperative, morbidly obese, no acute distress, no febrile - Head Head exam: Present: atraumatic, normal inspection, normocephalic - Eye Eye exam: Present: EOMI, normal appearance, PERRL Pupils: Present: normal accommodation - Neck Neck exam: Present: normal inspection - Respiratory Respiratory exam: Present: CTAB. Absent: rales, respiratory distress, rhonchi, wheezes - Cardiovascular Cardiovascular exam: Present: RRR, +S1, +S2 - GI/Abdominal GI/Abdominal exam: Present: normal bowel sounds, soft. Absent: distended, tenderness - Extremities Exam Extremities exam: Present: normal inspection. Absent: joint swelling, pedal edema, tenderness - Neurological Exam Neurological exam: Present: alert, oriented X3, no focal deficits - Psychiatric Psychiatric exam: Present: flat affect - Skin Skin exam: Present: dry (Ulcer wounds are well-bandaged), warm Consult Discharge Plan - Plan Instructions: Chronic Kidney Disease (GEN), Cellulitis (DC), Dialysis Diet (GEN ) Referrals: Peter Vicente DO [Primary Care Provider] - Prescriptions: Cinacalcet [Sensipar] 30 mg PO DAILY 30 Days #30 tablet Meropenem [Merrem] 500 mg IV Q24H 3 Days #3 vial Ondansetron HCl [Zofran] 4 mg PO Q12H PRN 6 Days #10 tab PRN Reason: Vomiting predniSONE [PredniSONE] 10 mg PO DAILY 30 Days #30 tablet - Attending Attestation I examined this patient and my medical decision-making was reviewed with the Resident Physician. I agree with the documented findings, disposition and treatment plan as described except to the extent set forth below.
[2018-03-22] MEDS ORDERED: 0.9 % Sodium Chloride 250 ML IVC PRN (08:59)
[2018-03-22] MEDS ORDERED: 0.9 % Sodium Chloride 1,000 ML PRIME SCH (09:00)
[2018-03-22] MEDS: *HR* HYDROcodone/Acet 10/325 mg TABLET PO PRN (11:13)
--- NOTE | 2018-03-22 14:12 | Nephrology Progress Note ---
Date of Encounter: 03/22/18 Time of Encounter: 10:30 - Assessment and Plan (1) ESRD (end stage renal disease) Current Visit: Yes Status: Chronic End-stage renal disease on hemodialysis, last hemodialysis Monday. Patient scheduled for HD today per typical TTS schedule Patient to receive 25 g IV sodium thiosulfate for calciphylaxis during hemodialysis. Biochemically, the patient remains stable Plan -Hemodialysis per TTS schedule. Patient has poor compliance -Sodium thiosulfate during hemodialysis -Consult to social service for home health and transport assistance which has been setup. 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 BARBARA +/- iron as needed. Qualifiers: Chronic kidney disease stage: on chronic dialysis Qualified Code(s): N18.6 - End stage renal disease; D63.1 - Anemia in chronic kidney disease; Z99.2 - Dependence on renal dialysis (4) Noncompliance with renal dialysis Current Visit: No Status: Chronic Chronic, and recurrent. See above. (5) Secondary hyperparathyroidism (of renal origin) Current Visit: Yes Status: Acute Elevated iPTH, so I've added Sensipar (see my note from 03/16, as this is part of the Calciphylaxis strategy). Subjective Principal diagnosis: ESRD Interval history: Patient is resting comfortably in bed at time of examination. She has no acute complaints overnight. Overall she said that she is feeling significantly better than she was previously. Objective - Vital Signs Vital signs: Vital Signs Temp Pulse Resp BP Pulse Ox 03/22/18 08:25 97.9 F 66 19 137/82 98 03/22/18 07:54 16 94 03/22/18 04:38 98.3 F 66 17 131/70 96 03/22/18 00:38 98.1 F 64 17 127/74 95 03/21/18 21:02 98.5 F 68 18 125/76 94 03/21/18 19:53 16 95 03/21/18 16:19 98.2 F 65 16 121/72 94 Intake and Output 03/21/18 03/22/18 03/22/18 23:59 07:59 15:59 Intake Total 240 / 240 Balance 240 / 240 Intake: Oral 240 / 240 Other: Meal Breakfast Percent of Meal Consumed 50% Weight 78 kg Blood Glucose* 171 82 103 Patient Weight 03/22/18 23:59 Weight 78 kg - General Appearance Exam: General appearance: Present: well-developed, appears started age, obese, chronically ill, fatigue EENT: Present: ATNC, PERRL, mucous membranes moist Neck: Present: supple Respiratory: Present: clear Cardiology: Present: no edema, edema, regular rate, normal S1, normal S2 Dialysis Vascular Access: AV fistula in left upper extremity. Bruit auscultated , thrill palpated Gastrointestinal: Present: normoactive bowel sounds, no tenderness, no guarding , obese Integumentary: Present: warm and dry. Ulceration of skin present on the left abdominal folds which is covered by bandages. Black necrotic tissue on the left third digit of the upper extremity. Ulceration present on the aerola of bilateral breasts Neurologic: Present: no focal deficit, no asterixis, alert and oriented x3 Musculoskeletal: Present: no deformities Psychiatric: Present: mood/affect appropriate, cooperative - Lab 03/18/18 08:11 03/22/18 05:51 Most recent lab results Calcium 8.1 mg/dL (8.6-10.3) L 03/22/18 05:51 Phosphorus 3.9 mg/dL (2.7-4.5) 03/22/18 05:51 Magnesium 1.8 mg/dL (1.6-2.6) 03/22/18 05:51 Consult Discharge Plan - Plan Referrals: Peter Vicente DO [Primary Care Provider] -
[2018-03-22] MEDS: SODIUM THIOSULFATE IVPB SCH (14:30)
--- NOTE | 2018-03-22 14:39 | Discharge Summary ---
- NOTES TO OUTPATIENT PROVIDER Notes to Outpatient Provider: Patient needed aggressive wound care. Would be treated for 3 more days of meropenem. Needs good follow-up and wound care otherwise has chance of recurrent worsening of her wounds. Date of Encounter: 03/22/18 Time of Encounter: 14:00 - Discharge Diagnosis (1) Wound, open, abdominal wall, anterior Priority: Primary Status: Acute Qualifiers: Encounter type: initial encounter Qualified Code(s): S31.109A - Unspecified open wound of abdominal wall, unspecified quadrant without penetration into peritoneal cavity, initial encounter (2) Calciphylaxis Priority: Primary Status: Chronic (3) Anemia in chronic kidney disease (CKD) Priority: Secondary Status: Chronic Qualifiers: Chronic kidney disease stage: on chronic dialysis Qualified Code(s): N18.6 - End stage renal disease; D63.1 - Anemia in chronic kidney disease; Z99.2 - Dependence on renal dialysis (4) DVT prophylaxis Priority: Secondary Status: Acute (5) Afib Priority: Secondary Status: Chronic Qualifiers: Atrial fibrillation type: paroxysmal Qualified Code(s): I48.0 - Paroxysmal atrial fibrillation (6) GI bleed Priority: Secondary Status: Suspected Qualifiers: GI bleed type/associated pathology: unspecified gastrointestinal hemorrhage type Qualified Code(s): K92.2 - Gastrointestinal hemorrhage, unspecified (7) ESRD (end stage renal disease) on dialysis Priority: Primary Status: Acute (8) Noncompliance with renal dialysis Priority: Secondary Status: Chronic (9) Wound infection Priority: Primary Status: Acute (10) Hypothyroidism Priority: Secondary Status: Chronic Qualifiers: Hypothyroidism type: unspecified Qualified Code(s): E03.9 - Hypothyroidism , unspecified (11) Hypertension Priority: Secondary Status: Chronic Qualifiers: Hypertension type: essential hypertension Qualified Code(s): I10 - Essential (primary) hypertension Hospital course: Ms. Alexis is a 43 year old female with the past medical history of end-stage renal disease on dialysis, calciphylaxis admitted for multiple abdominal ulcers. She was being treated for infected necrotic abdominal ulcers and was recently discharged to rehabilitation however he came back with complaint of nausea vomiting and diarrhea with the worsening of her abdominal ulcers with foul smelling discharge. She was started on broad-spectrum antibiotics which would later narrowed to meropenem based on culture and sensitivity and with infectious disease guidance. Wound care and surgery consult was obtained. She was managed with wound care not needing any debridement. Physical therapy recommended subacute nursing facility however patient did not want to go to a jail and opted to go home with home health care while receiving antibiotics for 3 more days. Patient promised to get wound care on time which was set up with the help of immigration case manager and social service agency director. Discharge discussed with: patient, nurse, social work, case management, salon sales consultant - Time Spent with Patient Total time spent providing and/or coordinating discharge services: Greater than 30 minutes - Discharge Medications Prescriptions: Cinacalcet [Sensipar] 30 mg PO DAILY 30 Days #30 tablet Meropenem [Merrem] 500 mg IV Q24H 3 Days #3 vial Ondansetron HCl [Zofran] 4 mg PO Q12H PRN 6 Days #10 tab PRN Reason: Vomiting predniSONE [PredniSONE] 10 mg PO DAILY 30 Days #30 tablet Home Medications: Albuterol Sulfate [Albuterol Inhaler] 2 puff IH Q4H PRN 09/09/16 [History] Amiodarone [Cordarone] 200 mg PO DAILY 09/09/16 [History] Atorvastatin [Lipitor] 40 mg PO HS 09/09/16 [History] Budesonide/Formoterol 160/4.5 [Symbicort 160/4.5] 2 puff IH BIDR 09/09/16 [ History] Ipratropium/Albuterol Neb [Duoneb] 3 ml IH QID PRN 09/09/16 [History] Levothyroxine Sodium [Synthroid] 200 mcg PO QAM 09/09/16 [History] Omeprazole [PriLOSEC] 20 mg PO DAILY 09/09/16 [History] cloNIDine HCl [Clonidine HCl] 0.3 mg PO TID 09/09/16 [History] hydrALAZINE [HydrALAZINE] 50 mg PO BID 09/09/16 [History] Acetaminophen [Acetaminophen ER] 650 mg PO Q4H PRN 12/23/16 [History] Montelukast [Singulair] 10 mg PO DAILY 02/16/17 [History] Amlodipine Besylate 5 mg PO BID 01/07/18 [History] Folic Acid 1 mg PO DAILY 01/07/18 [History] Metoprolol Succinate [Toprol Xl] 25 mg PO DAILY 01/07/18 [History] Apixaban [Eliquis] 5 mg PO BID #60 tablet 01/18/18 [Rx] Collagenase Oint [Santyl] 1 appl TP HS tube 02/16/18 [Rx] Darbepoetin [Aranesp] 60 mcg SQ QWEEK syringe 02/16/18 [Rx] FentaNYL PATCH [Duragesic] 12 mcg TD Q72H 6 Days #2 patch.td72 02/16/18 [Rx] Ferrous Sulfate 325 mg PO DAILY tablet 02/16/18 [Rx] Gentamicin Oint [Garamycin] 1 appl TP 2100 tube 02/16/18 [Rx] HYDROcodone/Acet 10/325 mg [[place] 10-325 mg] 1 each PO Q6H PRN 3 Days #12 tablet 02/16/18 [Rx] Cinacalcet [Sensipar] 30 mg PO DAILY 30 Days #30 tablet 03/22/18 [Rx] Meropenem [Merrem] 500 mg IV Q24H 3 Days #3 vial 03/22/18 [Rx] Ondansetron HCl [Zofran] 4 mg PO Q12H PRN 6 Days #10 tab 03/22/18 [Rx] predniSONE [PredniSONE] 10 mg PO DAILY tablet 03/22/18 [Rx] predniSONE [PredniSONE] 10 mg PO DAILY 30 Days #30 tablet 03/22/18 [Rx] Allergies/Adverse Reactions: 3 Allergy/AdvReac Type Severity Reaction Status Date / Time heparin Allergy See Verified 01/07/18 13:14 Comments Warfarin [From Coumadin] Allergy Anaphylaxis Verified 03/15/18 10:15 Date of admission: 03/20/18 13:44 Primary care physician: Peter Vicente DO Consults: 03/20/18 14:58 Consult to Electrical Controls Engineer [CONS] Routine Reason for SW Consult: Patient requires assistance with Home health, wound care, and will also require medical transportation for appointments and hemodialysis at time of discharge. 03/22/18 09:00 Consult to Dialysis [CONS] ONCE Discharging clinician: Gracy Rosario - Constitutional Vitals: Temp Pulse Resp BP Pulse Ox 97.9 F 66 19 137/82 98 03/22/18 08:25 03/22/18 08:25 03/22/18 08:25 03/22/18 08:25 03/22/18 08:25 General appearance: Present: disheveled, obese Exam: Gen - Awake, alert, oriented x 3, no acute distress HEENT - NCAT, PERRLA, EOMI, hearing grossly intact, oropharynx benign CV - RRR, normal S1 and S2, no M/R/G, no BLE edema Resp - Normal WOB, CTAB, no W/R/R GI - Soft, NT/ND,obese, Skin - Warm, Abdominal wounds with dressing. Necrotic wounds on hand. Psych - Normal mood and affect, no depression or anxiety - Patient Status Disposition: Home, Self-Care Condition: Fair - Discharge Instructions Instructions: Chronic Kidney Disease (GEN), Cellulitis (DC), Dialysis Diet (GEN ) Follow Up With: Peter Vicente DO [Primary Care Provider] -
[2018-03-22 16:05] VITALS: BP 122/70
[2018-03-22] MEDS: Meropenem 500 MG in Water for inj. (sterile) 20 ML 5 ML IVP SCH (16:44)
[2018-03-22] MEDS ORDERED: Aminoglycoside Consult 1 EACH MC ONE (17:17)
--- NOTE | 2018-03-22 17:25 | Physician Discharge Referral ---
Home Health/Hosp Referral Info Transfer to: Home Health - Diagnosis (1) Wound, open, abdominal wall, anterior Priority: Primary Status: Acute (2) Calciphylaxis Priority: Primary Status: Chronic (3) Anemia in chronic kidney disease (CKD) Status: Chronic (4) DVT prophylaxis Status: Acute (5) Afib Status: Chronic (6) GI bleed Status: Suspected (7) ESRD (end stage renal disease) on dialysis Status: Acute (8) Noncompliance with renal dialysis Status: Chronic (9) Wound infection Status: Acute (10) Hypothyroidism Status: Chronic (11) Hypertension Status: Chronic - Respiratory Orders Smoking Cessation: Smoking cessation has been advised. For more information, call the [employer] Quit Line at [phone]. - Diet/Nutrition Diet/Nutrition Orders: Renal - Activity Activity Orders: Up ad teodoro - Services Needed Following services are medically necessary services: Home Health Aide Other Treatments: Wound care for abdominal wounds - Transfer Medications Prescriptions: Cinacalcet [Sensipar] 30 mg PO DAILY 30 Days #30 tablet Meropenem [Merrem] 500 mg IV Q24H 3 Days #3 vial Ondansetron HCl [Zofran] 4 mg PO Q12H PRN 6 Days #10 tab PRN Reason: Vomiting predniSONE [PredniSONE] 10 mg PO DAILY 30 Days #30 tablet Home Medications: Albuterol Sulfate [Albuterol Inhaler] 2 puff IH Q4H PRN 09/09/16 [History] Amiodarone [Cordarone] 200 mg PO DAILY 09/09/16 [History] Atorvastatin [Lipitor] 40 mg PO HS 09/09/16 [History] Budesonide/Formoterol 160/4.5 [Symbicort 160/4.5] 2 puff IH BIDR 09/09/16 [ History] Ipratropium/Albuterol Neb [Duoneb] 3 ml IH QID PRN 09/09/16 [History] Levothyroxine Sodium [Synthroid] 200 mcg PO QAM 09/09/16 [History] Omeprazole [PriLOSEC] 20 mg PO DAILY 09/09/16 [History] cloNIDine HCl [Clonidine HCl] 0.3 mg PO TID 09/09/16 [History] hydrALAZINE [HydrALAZINE] 50 mg PO BID 09/09/16 [History] Acetaminophen [Acetaminophen ER] 650 mg PO Q4H PRN 12/23/16 [History] Montelukast [Singulair] 10 mg PO DAILY 02/16/17 [History] Amlodipine Besylate 5 mg PO BID 01/07/18 [History] Folic Acid 1 mg PO DAILY 01/07/18 [History] Metoprolol Succinate [Toprol Xl] 25 mg PO DAILY 01/07/18 [History] Apixaban [Eliquis] 5 mg PO BID #60 tablet 01/18/18 [Rx] Collagenase Oint [Santyl] 1 appl TP HS tube 02/16/18 [Rx] Darbepoetin [Aranesp] 60 mcg SQ QWEEK syringe 02/16/18 [Rx] FentaNYL PATCH [Duragesic] 12 mcg TD Q72H 6 Days #2 patch.td72 02/16/18 [Rx] Ferrous Sulfate 325 mg PO DAILY tablet 02/16/18 [Rx] Gentamicin Oint [Garamycin] 1 appl TP 2100 tube 02/16/18 [Rx] HYDROcodone/Acet 10/325 mg [[place] 10-325 mg] 1 each PO Q6H PRN 3 Days #12 tablet 02/16/18 [Rx] Cinacalcet [Sensipar] 30 mg PO DAILY 30 Days #30 tablet 03/22/18 [Rx] Meropenem [Merrem] 500 mg IV Q24H 3 Days #3 vial 03/22/18 [Rx] Ondansetron HCl [Zofran] 4 mg PO Q12H PRN 6 Days #10 tab 03/22/18 [Rx] predniSONE [PredniSONE] 10 mg PO DAILY tablet 03/22/18 [Rx] predniSONE [PredniSONE] 10 mg PO DAILY 30 Days #30 tablet 03/22/18 [Rx] Allergies/Adverse Reactions: 3 Allergy/AdvReac Type Severity Reaction Status Date / Time heparin Allergy See Verified 01/07/18 13:14 Comments Warfarin [From Coumadin] Allergy Anaphylaxis Verified 03/15/18 10:15 Certification: Further, I certify that my clinical findings support that this patient is homebound (i.e. absences from home require considerable and taxing effort and are for medical reasons or buddhist services or infrequently or short duration when for other reasons) because: Homebound Reason: Patient requires assistance of a person or device to safely leave home Attestation: My signature below is to certify that this patient is under my care and that I, or nurse practitioner, or a physician's certified pathology assistant working with me, has a face-to -face encounter with this patient.
== END 2018-03-22 17:18 | disposition home or self-care (01) | DRG 380 ==
LOC: EMEROOARM 09:58 → 2ANU 09:58 → SUATTDRO 21:10 → 2ANU 21:52
PROVIDERS: ADMIT Student in an Organized Health Care Education/Training Program; ATTEND Internal Medicine

== ENCOUNTER 2018-04-07 08:44 | Inpatient (IN) ==
--- NOTE | 2018-04-07 08:57 | Emergency Department Note ---
Disposition Clinical Impression: Uremia, Noncompliance with renal dialysis, Weakness Disposition: Admitted As Inpatient Condition: Fair Time of Disposition: 11:53 Weakness HPI - General Stated complaint: General Weakness Time Seen by Provider: 04/07/18 08:53 - History of Present Illness HPI Narrative: 43yo female presents from home for evaluation of generalized weakness. Onset this morning upon awakening. Patient has end-stage renal disease, aneuric, dialysis Monday, , Monday. She did not have dialysis as she was here at this facility for nausea and vomiting and did not have dialysis today she felt too weak. Rug Inspector Helper is Dr. Fenton. Patient does have associated nausea. ROS: Positive: As above Negative: Fever, chills, vomiting, chest pain, palpitations, abdominal pain, flank pain, diarrhea, constipation, focal weakness, confusion - Related Data Home Medications Medication Instructions Recorded Confirmed Albuterol Sulfate [Albuterol 2 puff IH Q4H PRN 09/09/16 04/07/18 Inhaler] Amiodarone [Cordarone] 200 mg PO DAILY 09/09/16 04/07/18 Atorvastatin [Lipitor] 40 mg PO HS 09/09/16 04/07/18 Budesonide/Formoterol 160/4.5 2 puff IH BIDR 09/09/16 04/07/18 [Symbicort 160/4.5] Ipratropium/Albuterol Neb [Duoneb] 3 ml IH QID PRN 09/09/16 04/07/18 Levothyroxine Sodium [Synthroid] 200 mcg PO QAM 09/09/16 04/07/18 Omeprazole [PriLOSEC] 20 mg PO DAILY 09/09/16 04/07/18 cloNIDine HCl [Clonidine HCl] 0.3 mg PO TID 09/09/16 04/07/18 hydrALAZINE [HydrALAZINE] 50 mg PO BID 09/09/16 04/07/18 Acetaminophen [Acetaminophen ER] 650 mg PO Q4H PRN 12/23/16 04/07/18 Montelukast [Singulair] 10 mg PO DAILY 02/16/17 04/07/18 Amlodipine Besylate 5 mg PO BID 01/07/18 04/07/18 Folic Acid 1 mg PO DAILY 01/07/18 04/07/18 Metoprolol Succinate [Toprol Xl] 25 mg PO DAILY 01/07/18 04/07/18 Previous Rx's Medication Instructions Recorded Apixaban [Eliquis] 5 mg PO BID #60 tablet 01/18/18 Collagenase Oint [Santyl] 1 appl TP HS tube 02/16/18 Darbepoetin [Aranesp] 60 mcg SQ QWEEK syringe 02/16/18 Cinacalcet [Sensipar] 30 mg PO DAILY 30 Days #30 tablet 03/22/18 predniSONE [PredniSONE] 10 mg PO DAILY tablet 03/22/18 Ondansetron ODT [Zofran ODT] 4 mg SL Q8HR PRN #12 tab.rapdis 04/05/18 Allergies Allergy/AdvReac Type Severity Reaction Status Date / Time heparin Allergy See Verified 04/05/18 12:06 Comments Warfarin [From Coumadin] Allergy Anaphylaxis Verified 04/05/18 12:06 All systems ED: reviewed and negative except as stated. Review of Systems: As Per HPI Past Medical History - Past Medical History Medical history: Reports: asthma, atrial fibrillation, diabetes, dialysis, GI bleed, hyperlipidemia, hypertension, renal disease, thyroid disease Surgical history: Reports: appendectomy, cholecystectomy, thyroidectomy, transplant, other Psychiatric history: Reports: no psych history SAFETY AND HEALTH MANAGER history: Reports: bilateral tubal ligation - Social History Smoking Status: Never smoker Smokeless Tobacco Status: No Alcohol use: Reports: none Drug use: Reports: none Physical Exam Vital Signs Reviewed General: Patient is alert, oriented, and in no acute distress. Head: atraumatic, normocephalic Eye: normal appearance, no scleral icterus, no conjunctival injection ENT: mucous membranes moist, normal external ear exam Neck: normal inspection, trachea midline, full ROM Chest: normal inspection, symmetric chest rise Respiratory: Good respiratory effort. Bilateral breath sounds are clear without wheezing, crackles, or rhonchi. Cardiovascular: Regular rate and rhythm. No clicks, rubs, gallops, or murmors. Normal heart sounds. Abdomen: Bowel sounds present normoactive x-4 quadrants. Abdomen is soft, nondistended, and nontender. No guarding or rebound. No organomegaly noted. Musculoskeletal: Spontaneously moving all extremities. Skin: warm, dry, intact. Neuro: Alert and oriented x4. Sensation light touch intact. Psych: Patient's affect is appropriate for situation. Course Course Narrative: Clinically concern for hyperkalemia given she has missed the last 2 dialysis sessions. Lung sounds are clear; clinically no pleural effusion or pulmonary edema however will x-ray her chest. We will await EKG before administering Zofran. Patient had a prolonged ED stay his labs successfully drawn until 2 hours into her ED stay. EKG unremarkable. Serum electrolytes, though abnormal, does not show marked elevation of potassium. BUN and is markedly elevated 27; patient is uremic however does not have clinical altered mentation. I discussed the patient with nephrology, Dr. Mendenhall. He is familiar with the patient. He notes that he scheduled a catch up dialysis session for the patient on Monday which the patient also missed. We are equally concerned as patient's noncompliance. He agrees to see the patient on consult with admission to the hospitalist. Patient does not need emergent dialysis however will need urgent dialysis. Plan for dialysis today. I discussed the above with the admitting hospitalist, Dr. Rosario. He agrees to accept the patient for continued evaluation and management with nephrology consulted. EKG #1 EKG dated 04/07/2018 at 09:06 interpreted as sinus rhythm with a rate of 77. [place] 19. QTC 46. Right axis. Flattened T waves in leads 1, 2 with inverted T waves in 3 and V2. Compared to previous EKG dated 04/05/2018 similar appearance ; no acute ischemic changes or comparison. Vital Signs Temperature 97.5 F L 04/07/18 08:58 Pulse Rate 79 04/07/18 08:58 Respiratory Rate 18 04/07/18 08:58 Blood Pressure 156/93 04/07/18 08:58 O2 Sat by Pulse Oximetry 100 04/07/18 08:58 Temperature 97.5 F L 04/07/18 14:07 Pulse Rate 79 04/07/18 14:07 Respiratory Rate 16 04/07/18 14:07 Blood Pressure 130/78 04/07/18 14:07 O2 Sat by Pulse Oximetry 100 04/07/18 14:07 Oxygen Delivery Oxygen Delivery Room Air Weakness - Lab Data Result diagrams: 04/07/18 10:43 04/07/18 08:53 Lab Results 04/07/18 04/07/18 04/07/18 Range/Units 08:53 08:55 10:43 WBC 12.0 H (4.3-11.1) K/mcL RBC 3.35 L (3.82-4.97) M/mcL Hgb 10.6 L (11.5-15.4) g/dL Hct 30.4 L (35.3-44.9) % MCV 90.7 (83.0-100.0) fL MCH 31.6 (28.0-33.3) pg MCHC 34.9 (31.6-35.5) g/dL RDW 15.2 H (11.5-14.5) % Plt Count 115 L (140-400) K/mcL MPV 10.0 (9.4-12.4) fL Immature Gran % 0.7 (0-4) % Seg Neutrophils % 72.8 % Lymphocytes % 12.0 % Monocytes % 8.2 % Eosinophils % 5.7 % Basophils % 0.6 % Neutrophils # 8.7 (1.6-8.9) K/mcL Lymphocytes # 1.4 (0.6-4.6) K/mcL Monocytes # 1.0 (0.0-1.3) K/mcL Eosinophils # 0.7 H (0.0-0.6) K/mcL Basophils # 0.1 (0.0-0.2) K/mcL PT (9.4-12.1) Seconds INR Sodium 131 L (136-145) mEq/L Potassium 3.3 L (3.5-5.1) mEq/L Chloride 92 L (98-107) mEq/L Carbon Dioxide 16 L (23-29) mEq/L BUN 27 H (6-20) mg/dL Creatinine 7.00 H (0.60-1.20) mg/dL Est GFR ( Amer) 8 L (> 60) Est GFR (Non-Af Amer) 6 L (> 60) BUN/Creatinine Ratio 4 L (6-26) Glucose 106 H (70-105) mg/dL Calculated Osmolality 278 L (280-300) Calcium 8.5 L (8.6-10.3) mg/dL Phosphorus 4.1 (2.7-4.5) mg/dL Magnesium 1.7 (1.6-2.6) mg/dL Total Bilirubin 0.5 (0.3-1.0) mg/dL Direct Bilirubin 0.1 (0.0-0.2) mg/dL Indirect Bilirubin 0.4 (0.0-1.2) mg/dL AST 9 L (13-39) Units/L ALT < 3 L (7-52) Units/L Alkaline Phosphatase 239 H (34-104) Units/L Troponin I < 0.03 (< 0.04) ng/mL Serum Total Protein 5.5 L (6.4-8.9) g/dL Albumin 1.9 L (3.5-5.7) g/dL Globulin 3.6 H (2.4-3.5) g/dL Albumin/Globulin Ratio 0.5 L (1.1-2.2) 04/07/18 Range/Units 10:43 WBC (4.3-11.1) K/mcL RBC (3.82-4.97) M/mcL Hgb (11.5-15.4) g/dL Hct (35.3-44.9) % MCV (83.0-100.0) fL MCH (28.0-33.3) pg MCHC (31.6-35.5) g/dL RDW (11.5-14.5) % Plt Count (140-400) K/mcL MPV (9.4-12.4) fL Immature Gran % (0-4) % Seg Neutrophils % % Lymphocytes % % Monocytes % % Eosinophils % % Basophils % % Neutrophils # (1.6-8.9) K/mcL Lymphocytes # (0.6-4.6) K/mcL Monocytes # (0.0-1.3) K/mcL Eosinophils # (0.0-0.6) K/mcL Basophils # (0.0-0.2) K/mcL PT 14.2 H (9.4-12.1) Seconds INR 1.3 Sodium (136-145) mEq/L Potassium (3.5-5.1) mEq/L Chloride (98-107) mEq/L Carbon Dioxide (23-29) mEq/L BUN (6-20) mg/dL Creatinine (0.60-1.20) mg/dL Est GFR ( Amer) (> 60) Est GFR (Non-Af Amer) (> 60) BUN/Creatinine Ratio (6-26) Glucose (70-105) mg/dL Calculated Osmolality (280-300) Calcium (8.6-10.3) mg/dL Phosphorus (2.7-4.5) mg/dL Magnesium (1.6-2.6) mg/dL Total Bilirubin (0.3-1.0) mg/dL Direct Bilirubin (0.0-0.2) mg/dL Indirect Bilirubin (0.0-1.2) mg/dL AST (13-39) Units/L ALT (7-52) Units/L Alkaline Phosphatase (34-104) Units/L Troponin I (< 0.04) ng/mL Serum Total Protein (6.4-8.9) g/dL Albumin (3.5-5.7) g/dL Globulin (2.4-3.5) g/dL Albumin/Globulin Ratio (1.1-2.2) Attestation Statement - Attestation Attestation: Patient was seen with resident physician. I reviewed the history, physical, assessment and plan, and agree with the findings. I also personally evaluated this patient and had [id number] time with this patient. 43-year-old female history of renal dialysis makes no urine comes in with weakness. Patient was supposed to have dialysis on did not go was post -[facility] today did not go. Got weak and she came to the emergency department for evaluation and treatment. Patient has had nausea since her visit on . No diarrhea no chest pain or shortness of breath. Review of systems as above remainder negative. Physical exam vital signs were stable ENT is unremarkable. Heart regular rhythm and rate. Lungs clear. Adamant soft no guarding rigidity. Minimal tenderness. Extremities do not demonstrate swelling. Neurologically alert and oriented without focal deficits. Skin no obvious rashes. ED course we will do workup laboratory testing just to make sure is no significant abdomen amount is. EKG does not demonstrate signs of hyperkalemia. I think the patient's weakness is likely secondary to the fact that she needs the dialysis. We will likely admit to the hospital for definitive management. Lab testing was largely unremarkable. We did speak with nephrology who is concerned was that she may be getting uremic. I we also spoke with the hospitalist service to arrange for admission. Hemodynamically she remained stable while in the emergency department. Agree with resident physician assessment and plan.
[2018-04-07 10:19] LABS: Troponin I < 0.03 ng/mL (< 0.04)
[2018-04-07 10:27] LABS: BUN/Creatinine Ratio 4 (6-26); Blood Urea Nitrogen 27 mg/dL (6-20); Calcium 8.5 mg/dL (8.6-10.3); Carbon Dioxide 16 mEq/L (23-29); Chloride 92 mEq/L (98-107); Glucose 106 mg/dL (70-105); Magnesium 1.7 mg/dL (1.6-2.6); Osmolality,Calculated 278 (280-300); Phosphorous 4.1 mg/dL (2.7-4.5); Potassium 3.3 mEq/L (3.5-5.1); Sodium 131 mEq/L (136-145); eGFR For Non-African Americans 6 (> 60)
[2018-04-07 10:56] LABS: Basophils # 0.1 K/mcL (0.0-0.2); Basophils % 0.6 %; Eosinophils # 0.7 K/mcL (0.0-0.6); Eosinophils % 5.7 %; Hematocrit 30.4 % (35.3-44.9); Hemoglobin 10.6 g/dL (11.5-15.4); Immature Granulocytes % 0.7 % (0-4); Lymphocytes # 1.4 K/mcL (0.6-4.6); Mean Corpuscular HGB Conc 34.9 g/dL (31.6-35.5); Mean Corpuscular Hemoglobin 31.6 pg (28.0-33.3); Mean Corpuscular Volume 90.7 fL (83.0-100.0); Monocytes % 8.2 %; Neutrophils # 8.7 K/mcL (1.6-8.9); Platelet Count 115 K/mcL (140-400); Red Blood Count 3.35 M/mcL (3.82-4.97); Red Cell Distribution Width 15.2 % (11.5-14.5); Segmented Neutrophils % 72.8 %
[2018-04-07] MEDS ORDERED: Ondansetron 4 MG/2 ML VIAL IVP ONE (10:59)
[2018-04-07 11:01] LABS: Alanine Aminotransferase < 3 Units/L (7-52); Albumin 1.9 g/dL (3.5-5.7); Albumin/Globulin Ratio 0.5 (1.1-2.2); Alkaline Phosphatase 239 Units/L (34-104); Aspartate Amino Transferase 9 Units/L (13-39); Bilirubin,Direct 0.1 mg/dL (0.0-0.2); Bilirubin,Indirect 0.4 mg/dL (0.0-1.2); Bilirubin,Total 0.5 mg/dL (0.3-1.0); Globulin 3.6 g/dL (2.4-3.5); Total Protein 5.5 g/dL (6.4-8.9)
[2018-04-07 11:02] LABS: INR 1.3; Prothrombin Time 14.2 Seconds (9.4-12.1)
[2018-04-07] MEDS ORDERED: 0.9 % Sodium Chloride 250 ML IVC PRN (11:58)
[2018-04-07] MEDS ORDERED: Naloxone 0.4 MG/ML INJ IVP PRN (13:21)
--- NOTE | 2018-04-07 13:51 | Internal Med History&Physical ---
Date of Encounter: 04/07/18 Time of Encounter: 13:00 Internal Medicine - H&P: HPI Chief complaint: Nausea, Generalized Weakness Admitted From: Home Plans for Post Hospital Care: Home History of present illness: Ms. Alexis is a 43 year old female with past medical history significant for end stage renal disease on dialysis with no urine production, atrial fibrillation, hypertension, hyperlipidemia, asthma, hypothyroidism, acid reflux, and calciphylaxis who presents for nausea and vomiting over the past 3-4 days with decreased PO intake now causing generalized weakness. States this morning is the worst it has been. Was seen in ER for the same and was discharged on zofran odt 04/05/2018 but otherwise no current treatment. Zofran alleviates symptoms slightly, denies any exacerbating factors. Symptoms associated with non productive cough. Denies chest pain, shortness of breath, abdominal pain, fever, diarrhea. Last bowel movement was today. Is scheduled for dialysis on Tuesdays, , and Saturdays but hasn't been to dialysis since Monday. Was last admitted earlier this month and discharged 03/22/2018 with home wound care which she continues to get three times per week for wounds to abdomen, left leg, and bilateral hips. Denies any current problems with her wounds but will need continuation of wound care while in hospital. Past Med Surg Social Fam HX - Past Medical History Medical history: asthma, atrial fibrillation, dialysis, GI bleed, hyperlipidemia , hypertension, renal disease, thyroid disease Additional medical history: ANEMIA, BLEEDING ULCER,. KIDNEY DIALYSIS Psychiatric history: no psych history - Past Surgical History Surgical History: appendectomy, cholecystectomy, thyroidectomy, transplant, other Additional surgical history: KIDNEY TRANSPLANT 2007, TUBAL LIGATION, shunt danya - Social History Smoking Status: Never smoker Smokeless Tobacco Status: No Alcohol use: none Drug use: none - Family History Father Adopted: No Family Member Ethnicity: Non- Living Status: Hx Family Cardiac Disorders: Yes Hx Family Respiratory Disorders: Yes Hx Family Cancer: Yes Hx Family GI Disorders: No Hx Family Endocrine Disorder: Yes Hx Family Neuromuscular Disorders: No Hx Family Neurologic Disorders: No Hx Family HEENT Disorders: No Hx Family Autoimmune Disorders: No Mother Adopted: No Living Status: Hx Family Cardiac Disorders: Yes Hx Family Respiratory Disorders: No Hx Family Cancer: Yes Hx Family GI Disorders: No Hx Family Endocrine Disorder: No Hx Family Neuromuscular Disorders: No Hx Family Neurologic Disorders: No Hx Family HEENT Disorders: No Hx Family Autoimmune Disorders: No Internal Medicine - H&P: Meds Albuterol Sulfate [Albuterol Inhaler] 2 puff IH Q4H PRN 09/09/16 [History] Amiodarone [Cordarone] 200 mg PO DAILY 09/09/16 [History] Atorvastatin [Lipitor] 40 mg PO HS 09/09/16 [History] Budesonide/Formoterol 160/4.5 [Symbicort 160/4.5] 2 puff IH BIDR 09/09/16 [ History] Ipratropium/Albuterol Neb [Duoneb] 3 ml IH QID PRN 09/09/16 [History] Levothyroxine Sodium [Synthroid] 200 mcg PO QAM 09/09/16 [History] Omeprazole [PriLOSEC] 20 mg PO DAILY 09/09/16 [History] cloNIDine HCl [Clonidine HCl] 0.3 mg PO TID 09/09/16 [History] hydrALAZINE [HydrALAZINE] 50 mg PO BID 09/09/16 [History] Acetaminophen [Acetaminophen ER] 650 mg PO Q4H PRN 12/23/16 [History] Montelukast [Singulair] 10 mg PO DAILY 02/16/17 [History] Amlodipine Besylate 5 mg PO BID 01/07/18 [History] Folic Acid 1 mg PO DAILY 01/07/18 [History] Metoprolol Succinate [Toprol Xl] 25 mg PO DAILY 01/07/18 [History] Apixaban [Eliquis] 5 mg PO BID #60 tablet 01/18/18 [Rx] Collagenase Oint [Santyl] 1 appl TP HS tube 02/16/18 [Rx] Darbepoetin [Aranesp] 60 mcg SQ QWEEK syringe 02/16/18 [Rx] Cinacalcet [Sensipar] 30 mg PO DAILY 30 Days #30 tablet 03/22/18 [Rx] predniSONE [PredniSONE] 10 mg PO DAILY tablet 03/22/18 [Rx] Ondansetron ODT [Zofran ODT] 4 mg SL Q8HR PRN #12 tab.rapdis 04/05/18 [Rx] 3 Allergy/AdvReac Type Severity Reaction Status Date / Time heparin Allergy See Verified 04/05/18 12:06 Comments Warfarin [From Coumadin] Allergy Anaphylaxis Verified 04/05/18 12:06 All Systems PM: A 10-system review of systems was performed and is negative for pertinent findings except as documented above in the HPI. - Constitutional Vitals: Temp Pulse Resp BP Pulse Ox 97.5 F L 79 14 130/75 100 04/07/18 08:58 04/07/18 08:58 04/07/18 12:50 04/07/18 12:50 04/07/18 08:58 Exam: General: Alert and oriented. Skin:Normal color, no rash. Necrotic wounds on left hand open to air. Dressings dry and intact to abdomen, left leg, and bilateral hips. Dialysis port noted to right side of chest, dressing dry and intact. HEENT:Pupils equal, round and reactive. Cardiovascular:Normal S1 & S2, no rubs, murmurs or gallops. No JVD. Pulse regular. Lungs:Normal breath sounds, no wheezes or crackles. Abdomen:Soft, non-tender, no rigidity. Extremities:No deformity, no edema or tenderness, no joint swelling or clubbing. Neurological:Normal cognition and motor skills. Pulses:Carotid and radial pulses normal +2. Rest of the physical exam is non contributory. Internal Med - H&P Results - Labs CBC & Chem 7: 04/07/18 10:43 04/07/18 08:53 - Assessment and plan (1) ESRD (end stage renal disease) on dialysis Current Visit: No Status: Chronic Assessment and plan: ER consulted nephrology for dialysis and further recommendations. Renal diet ordered. Repeat labs in a.m. (2) Nausea and vomiting Current Visit: No Status: Acute Assessment and plan: Zofran as needed. Encourage oral intake. Qualifiers: Vomiting type: unspecified Vomiting Intractability: non-intractable Qualified Code(s): R11.2 - Nausea with vomiting, unspecified (3) Wounds, multiple Current Visit: Yes Status: Chronic Assessment and plan: Wound care consulted for continuation of wound treatment receiving as outpatient three times per week. adoption services manager consulted for continuation of wound treatment and any other needs at discharge. (4) Increased white blood cell count Current Visit: Yes Status: Acute Assessment and plan: Monitor for signs of infection. Repeat labs in a.m. Qualifiers: Leukocytosis type: unspecified Qualified Code(s): D72.829 - Elevated white blood cell count, unspecified (5) Weakness generalized Current Visit: Yes Status: Acute Assessment and plan: Continuous cardiac nurse specialist. Dialysis planned. Nausea control and encourage PO intake. - Time Spent With Patient Total time spent is greater than 50% in coordination of care (as documented) at patient's floor/unit and/or counseling patient:
[2018-04-07] MEDS ORDERED: Ipratropium/Albuterol Neb 3 ML IH PRN (14:05)
--- NOTE | 2018-04-07 14:15 | Nephrology Consult Note ---
Date of Encounter: 04/07/18 Time of Encounter: 13:50 Assessment and Plan (1) ESRD (end stage renal disease) on dialysis Current Visit: No Status: Chronic ESRD on HD TTS. Last HD was Monday, and she missed and the make-up outpt treatment on Monday. So I've ordered HD today with sodium thiosulfate. Missed HD and recommend dialysis today. On she had presented to the ER with complaints of N/V and fatigue but her N/V immediately resolved with Zofran , so after discussing this with the ER team, I had recommended discharge and had arranged for make up dialysis on Monday, but she did not go. When asked why she is not going to dialysis she reported she was tired and "did not feel like it." I counseled her for >50% of the encounter to focus / improve on her dialysis adherence since her dialysis non-compliance is placing her health in jeopardy and she also then has missed out on the Sodium Thiosulfate dosing for the Calciphyalxis. Agree with Wound Care Consult; she already has established with Wound Care and Dr. Mcknight earlier this year. Her Permacath appears dirty and with dried crusted skin. I recommend blood cultures and since there is so much crusted skin it is hard to determine if the cuff is exposed or not. I've asked the floor nurse to temporarily cover it and instructed the dialysis nurse to provide exit site care/cleaning, after which I could better determine if the cuff is exposed. If the cuff is exposed, then she' ll need the Permacath exchanged or replaced to the other side, and this would require holding the Eliquis for 5 days. (2) Calciphylaxis Current Visit: No Status: Chronic I've ordered Na-thiosulfate 25gm IV during the last hour of HD. Agree with wound care (see above). (3) Noncompliance with renal dialysis Current Visit: Yes Status: Chronic See above. (4) Nausea and vomiting Current Visit: No Status: Acute Not clear on etiology. DDx could include bacteremia from the dirty appearing Permacath or Gastroenteritis or Gastroparesis or Constipation vs other. Will check BCx of the Permacath. Qualifiers: Vomiting type: unspecified Vomiting Intractability: non-intractable Qualified Code(s): R11.2 - Nausea with vomiting, unspecified (5) Secondary hyperparathyroidism (of renal origin) Current Visit: No Status: Chronic Continue home Vit D rx. (6) Anemia in chronic kidney disease (CKD) Current Visit: No Status: Chronic Continue Aranesp. Goal Hgb is 10-11. Qualifiers: Chronic kidney disease stage: on chronic dialysis Qualified Code(s): N18.6 - End stage renal disease; D63.1 - Anemia in chronic kidney disease; Z99.2 - Dependence on renal dialysis (7) History of kidney transplant Current Visit: No Status: Chronic (8) Hypertension Current Visit: No Status: Chronic Qualifiers: Hypertension type: essential hypertension Qualified Code(s): I10 - Essential (primary) hypertension History of Present Illness - Reason for Consult Consult date: 04/07/18 end stage renal disease - Chief Complaint Missed dialysis, Calciphylaxis - History of Present Illness Malathi Alexis is a 43 y/o morbidly obese WF with a pmh of ESRD s/p renal transplant that ultimately failed has had been on PD until a few months ago when she developed Calciphylaxis. During that admission she wanted to change Nephrologists to Dr. Fenton; since then the pt has been on Sodium Thiosulfate with each dialysis via a Permacath. She has missed several HD treatments, at the [facility] in [place], [place]. She currently dialyzes via a Permacath since the LUE AVF has not been working; and she reportedly has missed outpt appts with Vascular Surgery for fistulagrams. Her male partner was present and he reported that he has been encouraging her to not miss dialysis. The pt lives with him and has been residing at home, and is no longer in an ECF , she said. She has mild left sided abd pain, N/V that comes and goes, which started on Monday "during" her last HD treatment she said. She did not affirm F /C/D. She does not make urine, she had reported. The floor RN was present during my interview and exam. Past Med Surg Social Fam HX - Past Medical History Medical history: asthma, atrial fibrillation, dialysis, GI bleed, hyperlipidemia , hypertension, renal disease, thyroid disease Additional medical history: ANEMIA, BLEEDING ULCER,. KIDNEY DIALYSIS Psychiatric history: no psych history - Past Surgical History Surgical History: appendectomy, cholecystectomy, thyroidectomy, transplant, other Additional surgical history: KIDNEY TRANSPLANT 2007, TUBAL LIGATION, shunt danya - Social History Smoking Status: Never smoker Smokeless Tobacco Status: No Alcohol use: none Drug use: none - Family History Father Adopted: No Family Member Ethnicity: Non- Living Status: Hx Family Cardiac Disorders: Yes Hx Family Respiratory Disorders: Yes Hx Family Cancer: Yes Hx Family GI Disorders: No Hx Family Endocrine Disorder: Yes Hx Family Neuromuscular Disorders: No Hx Family Neurologic Disorders: No Hx Family HEENT Disorders: No Hx Family Autoimmune Disorders: No Mother Adopted: No Living Status: Hx Family Cardiac Disorders: Yes Hx Family Respiratory Disorders: No Hx Family Cancer: Yes Hx Family GI Disorders: No Hx Family Endocrine Disorder: No Hx Family Neuromuscular Disorders: No Hx Family Neurologic Disorders: No Hx Family HEENT Disorders: No Hx Family Autoimmune Disorders: No Medications and Allergies Albuterol Sulfate [Albuterol Inhaler] 2 puff IH Q4H PRN 09/09/16 [History] Amiodarone [Cordarone] 200 mg PO DAILY 09/09/16 [History] Atorvastatin [Lipitor] 40 mg PO HS 09/09/16 [History] Budesonide/Formoterol 160/4.5 [Symbicort 160/4.5] 2 puff IH BIDR 09/09/16 [ History] Ipratropium/Albuterol Neb [Duoneb] 3 ml IH QID PRN 09/09/16 [History] Levothyroxine Sodium [Synthroid] 200 mcg PO QAM 09/09/16 [History] Omeprazole [PriLOSEC] 20 mg PO DAILY 09/09/16 [History] cloNIDine HCl [Clonidine HCl] 0.3 mg PO TID 09/09/16 [History] hydrALAZINE [HydrALAZINE] 50 mg PO BID 09/09/16 [History] Acetaminophen [Acetaminophen ER] 650 mg PO Q4H PRN 12/23/16 [History] Montelukast [Singulair] 10 mg PO DAILY 02/16/17 [History] Amlodipine Besylate 5 mg PO BID 01/07/18 [History] Folic Acid 1 mg PO DAILY 01/07/18 [History] Metoprolol Succinate [Toprol Xl] 25 mg PO DAILY 01/07/18 [History] Apixaban [Eliquis] 5 mg PO BID #60 tablet 01/18/18 [Rx] Collagenase Oint [Santyl] 1 appl TP HS tube 02/16/18 [Rx] Darbepoetin [Aranesp] 60 mcg SQ QWEEK syringe 02/16/18 [Rx] Cinacalcet [Sensipar] 30 mg PO DAILY 30 Days #30 tablet 03/22/18 [Rx] predniSONE [PredniSONE] 10 mg PO DAILY tablet 03/22/18 [Rx] Ondansetron ODT [Zofran ODT] 4 mg SL Q8HR PRN #12 tab.rapdis 04/05/18 [Rx] 3 Allergy/AdvReac Type Severity Reaction Status Date / Time heparin Allergy See Verified 04/05/18 12:06 Comments Warfarin [From Coumadin] Allergy Anaphylaxis Verified 04/05/18 12:06 Review of Systems All Systems: reviewed and no additional remarkable complaints except as stated Exam - Vital Signs Vital signs: Initial Vital Signs Temp Pulse Resp BP Pulse Ox 97.5 F L 79 18 156/93 100 04/07/18 08:58 04/07/18 08:58 04/07/18 08:58 04/07/18 08:58 04/07/18 08:58 Vital Signs - Last 8 Hours Temp Pulse Resp BP Pulse Ox 04/07/18 14:07 97.5 F L 79 16 130/78 100 04/07/18 12:50 14 130/75 Intake and Output 04/06/18 04/07/18 04/07/18 23:59 07:59 15:59 Other: Weight 82.9 kg Blood Glucose* 84 Patient Weight 04/07/18 23:59 Weight 82.9 kg - General Appearance General appearance: appears started age, obese, chronically ill, fatigue EENT: ATNC, PERRL, mucous membranes moist Neck: supple Respiratory: clear Cardiology: no murmurs, edema (trace ankle edema b/l), regular rate, regular rhythm, normal S1, normal S2 - Dialysis Access Dialysis Vascular Access: Arteriovenous Fistula (left AVF with miminal bruit/ thrill) Additional Comments: Right sided Permacath with erythematous exit site and crusted/dried skin plus what appears to be the cuff. Gastrointestinal: normoactive bowel sounds, tenderness (left sided, mild ttp) Additional Comments: multiple wounds with exudates and dried scabs Neurologic: no focal deficit, no asterixis, alert and oriented x3 Musculoskeletal: no clubbing Additional Comments: bed bound Psychiatric: mood/affect appropriate, cooperative Results - Lab Results 04/07/18 10:43 04/07/18 08:53 Most recent lab results Calcium 8.5 mg/dL (8.6-10.3) L 04/07/18 08:53 Phosphorus 4.1 mg/dL (2.7-4.5) 04/07/18 08:53 Magnesium 1.7 mg/dL (1.6-2.6) 04/07/18 08:53 I reviewed the labs, vitals, imaging, progress notes, med lists and I also reviewed the [employer] EHR with run sheets, vitals, med list and etc. Consult Discharge Plan - Plan
[2018-04-07] MEDS ORDERED: 0.9 % Sodium Chloride 1,000 ML ONE (14:36)
[2018-04-07] MEDS: cloNIDine HCl 0.1 MG TABLET PO SCH ×2 (15:05→20:18)
[2018-04-07] MEDS: Acetaminophen 325 MG TABLET PO PRN (16:42)
[2018-04-07] MEDS ORDERED: Ondansetron 4 MG/2 ML VIAL IVP PRN (17:30)
[2018-04-07] MEDS: hydrALAZINE 25 MG TABLET PO SCH (20:18)
[2018-04-07] MEDS: Apixaban 5 MG TABLET PO SCH (20:18)
[2018-04-07] MEDS: amLODIPine 5 MG TABLET PO SCH (20:19)
[2018-04-07] MEDS: Budesonide/Formoterol 160/4.5 1 PUFF INH IH SCH (21:38)
[2018-04-08] MEDS ORDERED: Dextrose Gel 15 GM/37.5 ML TUBE PO PRN ×2 (03:13)
[2018-04-08] MEDS ORDERED: D5% in Water 1,000 ML IVC PRN (03:13)
[2018-04-08] MEDS ORDERED: *HR* Dextrose 50 % in Water (Syg) 50 ML SYRINGE IVP PRN (03:13)
[2018-04-08] MEDS ORDERED: Dextrose Gel 15 GM/37.5 ML TUBE PO ONE (03:20)
[2018-04-08 06:11] LABS: Basophils % 0.4 %; Eosinophils # 0.5 K/mcL (0.0-0.6); Eosinophils % 5.3 %; Hematocrit 25.3 % (35.3-44.9); Immature Granulocytes % 0.9 % (0-4); Lymphocytes # 1.4 K/mcL (0.6-4.6); Lymphocytes % 16.7 %; Mean Corpuscular HGB Conc 33.2 g/dL (31.6-35.5); Mean Corpuscular Volume 90.4 fL (83.0-100.0); Mean Platelet Volume 11.5 fL (9.4-12.4); Monocytes # 0.8 K/mcL (0.0-1.3); Monocytes % 9.4 %; Red Cell Distribution Width 16.1 % (11.5-14.5); Segmented Neutrophils % 67.3 %
[2018-04-08 06:13] LABS: Hemoglobin 8.4 g/dL (11.5-15.4); Neutrophils # 5.7 K/mcL (1.6-8.9); Platelet Count 80 K/mcL (140-400)
[2018-04-08 06:30] LABS: Alanine Aminotransferase < 3 Units/L (7-52); Albumin < 1.5 g/dL (3.5-5.7); Alkaline Phosphatase 208 Units/L (34-104); Aspartate Amino Transferase 8 Units/L (13-39); BUN/Creatinine Ratio 3 (6-26); Bilirubin,Total 0.5 mg/dL (0.3-1.0); Blood Urea Nitrogen 12 mg/dL (6-20); Calcium 7.6 mg/dL (8.6-10.3); Carbon Dioxide 22 mEq/L (23-29); Chloride 100 mEq/L (98-107); Glucose 52 mg/dL (70-105); Magnesium 1.6 mg/dL (1.6-2.6); Osmolality,Calculated 275 (280-300); Potassium 4.4 mEq/L (3.5-5.1); Sodium 134 mEq/L (136-145); Total Protein 4.2 g/dL (6.4-8.9); eGFR For Non-African Americans 13 (> 60)
[2018-04-08] MEDS: Budesonide/Formoterol 160/4.5 1 PUFF INH IH SCH ×2 (07:52→20:17)
[2018-04-08] MEDS: cloNIDine HCl 0.1 MG TABLET PO SCH ×3 (08:24→21:46)
[2018-04-08] MEDS: Metoprolol XL (24 HR) Succ 25 MG TAB.ER.24H PO SCH (08:25)
[2018-04-08] MEDS: amLODIPine 5 MG TABLET PO SCH ×2 (08:25→21:46)
[2018-04-08] MEDS: hydrALAZINE 25 MG TABLET PO SCH ×2 (08:25→21:46)
[2018-04-08] MEDS: predniSONE 10 MG TABLET PO SCH (08:25)
[2018-04-08] MEDS: Folic Acid 1 MG TABLET PO SCH (08:25)
[2018-04-08] MEDS: *HR* Amiodarone 200 MG TABLET PO SCH (08:25)
[2018-04-08] MEDS: Apixaban 5 MG TABLET PO SCH (08:25)
--- NOTE | 2018-04-08 10:16 | Nephrology Progress Note ---
Date of Encounter: 04/08/18 Time of Encounter: 10:45 - Assessment and Plan (1) ESRD (end stage renal disease) on dialysis Current Visit: Yes Status: Chronic Since she has missed so much HD, I recommend assessing her on Monday for an extra HD, but she is typically on HD TTS. Her Permacath appears dirty and with dried crusted skin. Now with +BCx. I have held the Eliquis so that she could then proceed with addressing the Permacath exchange vs replace vs Line-holiday. My colleague Dr. Fenton will be on-call starting Monday. (2) Calciphylaxis Current Visit: No Status: Chronic Sodium Thiosulfate 25gm over the last hour during HD. (3) Noncompliance with renal dialysis Current Visit: Yes Status: Chronic Pt has missed several treatments in the past. I had counseled her to focus on improving compliance. (4) Nausea and vomiting Current Visit: Yes Status: Resolved Qualifiers: Qualified Code(s): R11.2 - Nausea with vomiting, unspecified (5) Secondary hyperparathyroidism (of renal origin) Current Visit: No Status: Chronic (6) Anemia in chronic kidney disease (CKD) Current Visit: No Status: Chronic Goal Hgb 10-11 and likely worsening d/t not receiving EPO d/t missed HD treatments. Transfusion parameters as per primary. Qualifiers: Qualified Code(s): N18.6 - End stage renal disease; D63.1 - Anemia in chronic kidney disease; Z99.2 - Dependence on renal dialysis (7) History of kidney transplant Current Visit: No Status: Chronic (8) Hypertension Current Visit: No Status: Chronic Qualifiers: Qualified Code(s): I10 - Essential (primary) hypertension Subjective Principal diagnosis: ESRD Interval history: Pt was s/e and she did not affirm N/V/D but did affirm chronic fatigue. Objective - Vital Signs Vital signs: Vital Signs Temp Pulse Resp BP Pulse Ox 04/08/18 07:57 99.6 F 87 16 111/75 96 04/08/18 07:53 16 93 04/08/18 04:32 99.0 F 85 15 102/71 98 04/07/18 23:44 98.8 F 82 16 121/68 98 04/07/18 21:38 16 93 04/07/18 21:17 98.6 F 95 15 116/82 99 04/07/18 19:50 97.7 F 16 184/80 04/07/18 19:40 165/72 04/07/18 19:25 163/72 04/07/18 19:10 174/80 04/07/18 18:55 189/69 04/07/18 18:40 176/85 04/07/18 18:25 193/81 04/07/18 18:10 189/53 04/07/18 17:55 174/92 04/07/18 17:40 176/68 04/07/18 17:25 188/70 04/07/18 17:10 174/83 04/07/18 16:55 146/54 04/07/18 16:40 158/73 04/07/18 16:25 154/48 04/07/18 16:10 96.9 F L 17 181/79 04/07/18 15:24 97.5 F L 84 16 133/70 100 04/07/18 14:07 97.5 F L 79 16 130/78 100 04/07/18 12:50 14 130/75 Intake and Output 04/07/18 04/08/18 04/08/18 23:59 07:59 15:59 Intake Total 720 / 720 0 / 0 Output Total 579 / 579 0 / 0 Balance 141 / 141 0 / 0 Intake: Oral 120 / 120 0 / 0 Intake, Rinseback and Flushes 600 / 600 Output: Urine 0 / 0 0 / 0 Total Dialysis (HD) Output 579 / 579 Other: Weight 82.9 kg 79.9 kg Blood Glucose* 62 63 Hemodialysis Net Fluid Removed 0 (mL) Patient Weight 04/08/18 23:59 Weight 79.9 kg - General Appearance Exam: General appearance: appears started age, obese, chronically ill, fatigue EENT: ATNC, PERRL, mucous membranes moist Neck: supple Respiratory: clear Cardiology: no murmurs, edema (trace ankle edema b/l), regular rate, regular rhythm, normal S1, normal S2 - Dialysis Access Dialysis Vascular Access: Arteriovenous Fistula (left AVF with miminal bruit/ thrill) Additional Comments: Right sided Permacath with erythematous exit site and crusted/dried skin plus what appears to be the cuff. Gastrointestinal: normoactive bowel sounds, tenderness (left sided, mild ttp) Additional Comments: multiple wounds with exudates and dried scabs Neurologic: no focal deficit, no asterixis, alert and oriented x3 Musculoskeletal: no clubbing Additional Comments: bed bound Psychiatric: mood/affect appropriate, cooperative - Lab 04/10/18 05:53 04/10/18 05:53 Most recent lab results Calcium 7.6 mg/dL (8.6-10.3) L 04/08/18 04:53 Phosphorus 4.1 mg/dL (2.7-4.5) 04/07/18 08:53 Magnesium 1.6 mg/dL (1.6-2.6) 04/08/18 04:53 - VTE Reasons for not Prescribing Prophylaxis: Not indicated-Anticoagulated or INR therapeutic Consult Discharge Plan - Plan Referrals: Peter Vicente DO [Primary Care Provider] -
[2018-04-08 12:57] LABS: Acinetobacter baumannii by PCR Not Detected (Not Detect); Candida albicans by PCR Not Detected (Not Detect); Candida glabrata by PCR Not Detected (Not Detect); Candida krusei by PCR Not Detected (Not Detect); Candida parapsilosis by PCR Not Detected (Not Detect); Candida tropicalis by PCR Not Detected (Not Detect); Enterobacter cloacae Cmplx PCR Not Detected (Not Detect); Enterobacteriaceae by PCR Not Detected (Not Detect); Enterococcus by PCR Not Detected (Not Detect); Escherichia coli by PCR Not Detected (Not Detect); Klebsiella oxytoca by PCR Not Detected (Not Detect); Klebsiella pneumoniae by PCR Not Detected (Not Detect); Proteus by PCR Not Detected (Not Detect); Pseudomonas aeruginosa by PCR Not Detected (Not Detect); Serratia marcescens by PCR Not Detected (Not Detect); Staphylococcus aureus by PCR Not Detected (Not Detect); Staphylococcus by PCR DETECTED (Not Detect); Streptococcus agalactiae(B)PCR Not Detected (Not Detect); Streptococcus by PCR Not Detected (Not Detect); Streptococcus pneumoniae PCR Not Detected (Not Detect); Streptococcus pyogenes (A) PCR Not Detected (Not Detect); mecA Methicillin-Resist Gene DETECTED (Not Detect)
[2018-04-08] MEDS ORDERED: Vancomycin 0 MG in 0.9 % Sodium Chloride 250 ML IVPB SCH (14:00)
[2018-04-08] MEDS ORDERED: Vancomycin 1 EACH in EMPTY BAG 1 EACH IVPB SCH (15:00)
--- NOTE | 2018-04-08 15:36 | Internal Med Progress Note ---
Hospitalist Progress Note - Encounter Date of Encounter: 04/08/18 Time of Encounter: 10:15 - Subjective Interval History: Patient is lying in bed. Comfortable. No abdominal pain reported today. She does have some nausea. No new episodes of emesis. No fevers or chills reported. - Exam Vitals: Temp Pulse Resp BP Pulse Ox 99.0 F 70 16 95/62 98 04/08/18 12:55 04/08/18 12:55 04/08/18 12:55 04/08/18 12:55 04/08/18 12:55 Exam: General: Patient is alert, no acute distress, oriented x 3 Respiratory: Good respiratory effort. Normal breath sounds. No wheezing or crackles. Cardiovascular: Regular rate and rhythm. s1 and s2 normal No clicks, rubs, gallops, or murmurs. No pedal edema Abdomen: Abdomen is soft, nontender. Bowel sounds are present Musculoskeletal: Spontaneously moving all extremities Skin: Right IJ permacath with cuff exposed. Multiple wounds with scabs all over her body. - Assessment and Plan (1) Sepsis Current Visit: Yes Status: Acute Assessment and Plan: Patient currently appears to be having sepsis related to status she that his Mec A gene positive. 2 sets of blood culture are positive. Most likely from expose permacath. We will consult infectious disease. Check 2-D echocardiogram. IV vancomycin. Will repeat blood cultures in the morning. She will most likely need removal of permacath and placement of new one. High risk for complications. (2) ESRD (end stage renal disease) on dialysis Current Visit: Yes Status: Chronic Assessment and Plan: Nephrology consult. We will follow recommendations for dialysis. Patient will most likely need permacath exchanged given positive blood cultures. (3) Nausea and vomiting Current Visit: Yes Status: Acute Assessment and Plan: Improving. Patient reports nausea today but no diarrhea or vomiting. (4) Wounds, multiple Current Visit: Yes Status: Chronic Assessment and Plan: From calciphylaxis. Continue sodium thiosulfate with hemodialysis. (5) Weakness generalized Current Visit: Yes Status: Chronic Assessment and Plan: Most likely related to sepsis. DVT Prophylaxis: EPCDs. Anticoagulation held in anticipation for catheter exchange. - Time Spent with Patient Total time spent is greater than 50% in coordination of care (as documented) at patient's floor/unit and/or counseling patient: Internal Medicine: Result - Labs CBC & Chem 7: 04/08/18 04:53 04/08/18 04:53 Labs: Short CBC 04/08/18 Range/Units 04:53 WBC 8.5 (4.3-11.1) K/mcL Hgb 8.4 L D (11.5-15.4) g/dL Hct 25.3 L (35.3-44.9) % Plt Count 80 L (140-400) K/mcL Neutrophils # 5.7 (1.6-8.9) K/mcL BMP 04/08/18 04:53 Sodium 134 L Potassium 4.4 D Chloride 100 Carbon Dioxide 22 L BUN 12 Creatinine 3.85 H Glucose 52 L Calcium 7.6 L Liver Function 04/08/18 Range/Units 04:53 Total Bilirubin 0.5 (0.3-1.0) mg/dL AST 8 L (13-39) Units/L ALT < 3 L (7-52) Units/L Alkaline Phosphatase 208 H (34-104) Units/L Albumin < 1.5 L (3.5-5.7) g/dL - ABG Interpretation ABG results: PT/INR, D-dimer PT 14.2 Seconds (9.4-12.1) H 04/07/18 10:43 - VTE Reasons for not Prescribing Prophylaxis: Not indicated-Anticoagulated or INR therapeutic Consult Discharge Plan - Plan Referrals: Peter Vicente DO [Primary Care Provider] - (1) Sepsis Qualifiers: Sepsis type: sepsis due to unspecified organism Qualified Code(s): A41.9 - Sepsis, unspecified organism (3) Nausea and vomiting Qualifiers: Vomiting type: unspecified Vomiting Intractability: non-intractable Qualified Code(s): R11.2 - Nausea with vomiting, unspecified
[2018-04-09] MEDS: Acetaminophen 325 MG TABLET PO PRN ×2 (05:26→15:14)
[2018-04-09 05:42] LABS: Mean Corpuscular HGB Conc 32.3 g/dL (31.6-35.5); Segmented Neutrophils % 74.7 %
[2018-04-09 05:43] LABS: Basophils % 0.2 %; Eosinophils # 0.1 K/mcL (0.0-0.6); Eosinophils % 0.5 %; Hematocrit 22.3 % (35.3-44.9); Hemoglobin 7.2 g/dL (11.5-15.4); Immature Granulocytes % 0.8 % (0-4); Immature Platelets 4.3 % (1.1-6.1); Lymphocytes # 1.4 K/mcL (0.6-4.6); Lymphocytes % 15.5 %; Mean Corpuscular Hemoglobin 30.6 pg (28.0-33.3); Mean Corpuscular Volume 94.9 fL (83.0-100.0); Mean Platelet Volume 10.6 fL (9.4-12.4); Monocytes # 0.8 K/mcL (0.0-1.3); Monocytes % 8.3 %; Red Blood Count 2.35 M/mcL (3.82-4.97); Red Cell Distribution Width 16.4 % (11.5-14.5)
[2018-04-09 05:45] LABS: Platelet Count 87 K/mcL (140-400)
[2018-04-09 05:56] LABS: Calcium 8.1 mg/dL (8.6-10.3); Potassium 4.5 mEq/L (3.5-5.1)
[2018-04-09] MEDS: Budesonide/Formoterol 160/4.5 1 PUFF INH IH SCH ×2 (07:45→20:10)
[2018-04-09] MEDS: hydrALAZINE 25 MG TABLET PO SCH (10:08)
[2018-04-09] MEDS: amLODIPine 5 MG TABLET PO SCH (10:08)
[2018-04-09] MEDS: predniSONE 10 MG TABLET PO SCH (10:08)
[2018-04-09] MEDS: Metoprolol XL (24 HR) Succ 25 MG TAB.ER.24H PO SCH (10:08)
[2018-04-09] MEDS: *HR* Amiodarone 200 MG TABLET PO SCH (10:08)
[2018-04-09] MEDS: Folic Acid 1 MG TABLET PO SCH (10:08)
[2018-04-09] MEDS: cloNIDine HCl 0.1 MG TABLET PO SCH ×2 (10:08→15:15)
[2018-04-09] MEDS ORDERED: Albuterol 2.5 MG/3 ML NEBULIZER IH PRN (10:12)
--- NOTE | 2018-04-09 10:17 | Nephrology Progress Note ---
Date of Encounter: 04/09/18 Time of Encounter: 10:14 - Assessment and Plan (1) ESRD (end stage renal disease) on dialysis Current Visit: Yes Status: Chronic Current regimen is TTS at [facility]. Will plan for HD tomorrow and then remove Tunneled Line. Will plan for line Holiday and then replace on . Avoid nephrotoxins and renal dose all medications. (2) Calciphylaxis Current Visit: No Status: Chronic Sodium Thiosulfate ordered with HD. Wound Care consult. (3) Anemia in chronic kidney disease (CKD) Current Visit: No Status: Chronic Continue Aranesp. Goal Hgb is 10-11. Hgb is 7.2, will transfuse in am with HD. Qualifiers: Chronic kidney disease stage: on chronic dialysis Qualified Code(s): N18.6 - End stage renal disease; D63.1 - Anemia in chronic kidney disease; Z99.2 - Dependence on renal dialysis (4) Noncompliance with renal dialysis Current Visit: Yes Status: Chronic Pt has missed several treatments in the past. (5) Hypertension Current Visit: No Status: Chronic Stable, BP is 129/74 Qualifiers: Hypertension type: essential hypertension Qualified Code(s): I10 - Essential (primary) hypertension (6) History of kidney transplant Current Visit: No Status: Chronic (7) Secondary hyperparathyroidism (of renal origin) Current Visit: No Status: Chronic Continue home Vit D rx. (8) Nausea and vomiting Current Visit: Yes Status: Acute Suportive care, unsure of etiology. Qualifiers: Vomiting type: unspecified Vomiting Intractability: non-intractable Qualified Code(s): R11.2 - Nausea with vomiting, unspecified Subjective Principal diagnosis: general weakness Interval history: Pt seen and examined, is feeling a little better today. Objective - Vital Signs Vital signs: Vital Signs Temp Pulse Resp BP Pulse Ox 04/09/18 07:46 98.8 F 66 16 129/74 98 04/09/18 07:45 16 95 04/09/18 04:01 99 F 70 16 102/50 95 04/09/18 00:11 98.8 F 70 16 90/55 94 04/08/18 20:17 14 99 04/08/18 19:55 98.8 F 70 16 100/66 98 Intake and Output 04/08/18 04/09/18 04/09/18 23:59 07:59 15:59 Other: Weight 80 kg Blood Glucose* 97 63 Patient Weight 04/09/18 23:59 Weight 80 kg - General Appearance General appearance: Present: well-developed, well-nourished, obese EENT: Present: ATNC, hearing intact, vision intact Neck: Present: supple Respiratory: Present: clear Cardiology: Present: no edema, normal S1, normal S2 Dialysis Vascular Access: Venous Catheter (Tunneled Line.) Gastrointestinal: Present: normoactive bowel sounds, no tenderness, no guarding Integumentary: Present: no rash, warm and dry Additional Comments: Chronic wounds from caciphylaxis. Wounds are covered C/D/I. Neurologic: Present: alert and oriented x3 Psychiatric: Present: mood/affect appropriate, cooperative - Lab 04/09/18 05:17 04/09/18 05:17 Most recent lab results Calcium 8.1 mg/dL (8.6-10.3) L 04/09/18 05:17 Phosphorus 4.1 mg/dL (2.7-4.5) 04/07/18 08:53 Magnesium 1.6 mg/dL (1.6-2.6) 04/08/18 04:53 - VTE Reasons for not Prescribing Prophylaxis: Not indicated-Anticoagulated or INR therapeutic Consult Discharge Plan - Plan Referrals: Peter Vicente DO [Primary Care Provider] -
[2018-04-09] MEDS ORDERED: Vancomycin 500 MG in 0.9 % Sodium Chloride Mini Bag 100 ML IVPB ONE (10:44)
--- NOTE | 2018-04-09 10:45 | Infectious Disease Consult ---
Date of Encounter: 04/09/18 Time of Encounter: 10:44 Assessment and Plan (1) CLABSI (central line-associated bloodstream infection) Status: Acute Assessment and plan: blood cultures positive for GPC (CoNS) 2/2 sets both from central line ( dialysis cath right chest) some mild erythema around the line with no obvious drainage no endocarditis stigmata on physical exam recommend removing catheter having a cath holiday (two days) continue vancomycin re insert another catheter then finish a vancomycin course for 7 days total from insertion of new catheter (can give in dialysis center after dialysis) goal vancomycin trough around 15 monitor for drug toxicity Qualifiers: Encounter type: subsequent encounter Qualified Code(s): T80.211D - Bloodstream infection due to central venous catheter, subsequent encounter (2) Calciphylaxis Status: Chronic Assessment and plan: improved. no montse infection continue wound care keep patient in contact isolation (3) ESRD (end stage renal disease) Status: Chronic Assessment and plan: d/w nephrology team they are ok with giving patient a line holiday and maybe missing one dialysis session (4) Nausea & vomiting Status: Resolved Qualifiers: Vomiting type: unspecified Vomiting Intractability: unspecified Qualified Code(s): R11.2 - Nausea with vomiting, unspecified Infectious Disease HPI - Data of Consult Patient: known to practice within the last 3 years Consult date: 04/09/18 Requesting Physician: John Singleton MD Primary Care Provider: Peter Vicente DO - Consult Narrative Reason for consult: CLABSI History of present illness: Ms. Alexis is a 43 year old female Patient is a 43-year-old woman who presents to [facility] on 04/07/2018 with nausea and generalized weakness, we are consulted today on 04/09/2018 for gram positive bacteremia. Patient is a 43-year-old woman who is well-known to our service was seen multiple times for calciphylaxis and treated for multidrug resistant infections in the past. Previous cultures on 01/12/2019 was positive for Pseudomonas, Proteus and Escherichia coli ESBL. Previous wound culture in January 2018 were positive for Enterobacter claocae, Enterobacter aerogenes and Proteus resistant to Zosyn. Wound cultures on March 17 of this year were positive for Proteus , Enterobacter allergies, Escherichia coli, sensitive to meropenem. Patient was treated with meropenem for 10 days. Since admission, patient has not been febrile, tachycardic or tachypneic. Presenting labs revealed a WBC of 12,000 with normal differential no bands. Chemistry revealed a BUN of 27 and creatinine of 7. Blood cultures were obtained and are positive for coag-negative staph both obtained from a central venous catheter 45 minutes apart. A chest x-ray was obtained which showed improved pulmonary vascular congestion. Patient started on vancomycin and we were consulted to evaluate the patient and make further recommendations. CC: John Singleton MD Past Med Surg Social Fam HX - Past Medical History Medical history: asthma, atrial fibrillation, diabetes, dialysis, GI bleed, hyperlipidemia, hypertension, renal disease, thyroid disease Additional medical history: ANEMIA, BLEEDING ULCER,. KIDNEY DIALYSIS Psychiatric history: no psych history - Past Surgical History Surgical History: appendectomy, cholecystectomy, thyroidectomy, transplant, other Additional surgical history: KIDNEY TRANSPLANT 2007, TUBAL LIGATION, shunt danya - Social History Smoking Status: Never smoker Smokeless Tobacco Status: No Alcohol use: none Drug use: none - Family History Father Adopted: No Family Member Ethnicity: Non- Living Status: Hx Family Cardiac Disorders: Yes Hx Family Respiratory Disorders: Yes Hx Family Cancer: Yes Hx Family GI Disorders: No Hx Family Endocrine Disorder: Yes Hx Family Neuromuscular Disorders: No Hx Family Neurologic Disorders: No Hx Family HEENT Disorders: No Hx Family Autoimmune Disorders: No Mother Adopted: No Living Status: Hx Family Cardiac Disorders: Yes Hx Family Respiratory Disorders: No Hx Family Cancer: Yes Hx Family GI Disorders: No Hx Family Endocrine Disorder: No Hx Family Neuromuscular Disorders: No Hx Family Neurologic Disorders: No Hx Family HEENT Disorders: No Hx Family Autoimmune Disorders: No Infectious Disease-CN:Meds Albuterol Sulfate [Albuterol Inhaler] 2 puff IH Q4H PRN 09/09/16 [History] Amiodarone [Cordarone] 200 mg PO DAILY 09/09/16 [History] Atorvastatin [Lipitor] 40 mg PO HS 09/09/16 [History] Budesonide/Formoterol 160/4.5 [Symbicort 160/4.5] 2 puff IH BIDR 09/09/16 [ History] Ipratropium/Albuterol Neb [Duoneb] 3 ml IH QID PRN 09/09/16 [History] Levothyroxine Sodium [Synthroid] 200 mcg PO QAM 09/09/16 [History] Omeprazole [PriLOSEC] 20 mg PO DAILY 09/09/16 [History] cloNIDine HCl [Clonidine HCl] 0.3 mg PO TID 09/09/16 [History] hydrALAZINE [HydrALAZINE] 50 mg PO BID 09/09/16 [History] Acetaminophen [Acetaminophen ER] 650 mg PO Q4H PRN 12/23/16 [History] Montelukast [Singulair] 10 mg PO DAILY 02/16/17 [History] Amlodipine Besylate 5 mg PO BID 01/07/18 [History] Folic Acid 1 mg PO DAILY 01/07/18 [History] Metoprolol Succinate [Toprol Xl] 25 mg PO DAILY 01/07/18 [History] Apixaban [Eliquis] 5 mg PO BID #60 tablet 01/18/18 [Rx] Collagenase Oint [Santyl] 1 appl TP HS tube 02/16/18 [Rx] Darbepoetin [Aranesp] 60 mcg SQ QWEEK syringe 02/16/18 [Rx] Cinacalcet [Sensipar] 30 mg PO DAILY 30 Days #30 tablet 03/22/18 [Rx] predniSONE [PredniSONE] 10 mg PO DAILY tablet 03/22/18 [Rx] Ondansetron ODT [Zofran ODT] 4 mg SL Q8HR PRN #12 tab.rapdis 04/05/18 [Rx] 3 Allergy/AdvReac Type Severity Reaction Status Date / Time heparin Allergy See Verified 04/05/18 12:06 Comments Warfarin [From Coumadin] Allergy Anaphylaxis Verified 04/05/18 12:06 Review of systems: 10 point review of systems done, negative other for what mentioned in history of present illness Exam - Constitutional Vitals: Temp Pulse Resp BP Pulse Ox 98.8 F 66 16 129/74 98 04/09/18 07:46 04/09/18 07:46 04/09/18 07:46 04/09/18 07:46 04/09/18 07:46 General appearance: cooperative, no acute distress, no febrile - Head Head exam: Present: atraumatic, normocephalic - Eye Eye exam: Present: EOMI, PERRL - Neck Neck exam: Present: full ROM. Absent: meningismus - Respiratory Respiratory exam: Present: CTAB. Absent: rhonchi, wheezes - Cardiovascular Cardiovascular exam: Present: RRR, +S1, +S2 - GI/Abdominal GI/Abdominal exam: Present: soft. Absent: tenderness - Extremities Exam Additional comments: Chronic calciphylaxis - Psychiatric Psychiatric exam: Present: normal affect, normal mood - Additional findings Additional findings: Dialysis catheter right chest with some erythema on the top with no obvious drainage Infectious Disease CN: Results - Labs CBC & Chem 7: 04/10/18 05:53 04/10/18 05:53 Cultures: Cultures 04/09/18 05:17 Blood Culture - Preliminary Peripheral Venipuncture Culture is incubating and being continuously monitored for growth. Final report to follow. - VTE Reasons for not Prescribing Prophylaxis: Not indicated-Anticoagulated or INR therapeutic Consult Discharge Plan - Plan Referrals: Peter Vicente DO [Primary Care Provider] -
[2018-04-09] MEDS ORDERED: Vancomycin 1 EACH in EMPTY BAG 1 EACH IVPB PRN (11:00)
[2018-04-09] MEDS ORDERED: Sodium Thiosulfate 25 GM in EMPTY BAG 1 EACH IVPB ONE (11:45)
[2018-04-09] MEDS ORDERED: Gentamicin Oint 15 GM TUBE TP SCH (14:45)
--- NOTE | 2018-04-09 15:12 | Internal Med Progress Note ---
Hospitalist Progress Note - Encounter Date of Encounter: 04/09/18 Time of Encounter: 10:35 - Subjective Interval History: Patient is awake and alert. Nausea has subsided. She denies any fevers or chills overnight. No abdominal pain. Tolerating diet well. - Exam Vitals: Temp Pulse Resp BP Pulse Ox 98.9 F 68 16 132/83 97 04/09/18 11:45 04/09/18 11:45 04/09/18 11:45 04/09/18 11:45 04/09/18 11:45 Exam: General: Patient is alert, no acute distress, oriented x 3 Respiratory: Good respiratory effort. Normal breath sounds. No wheezing or crackles. Cardiovascular: Regular rate and rhythm. s1 and s2 normal No pedal edema Abdomen: Abdomen is soft, nontender. Bowel sounds are present Musculoskeletal: Spontaneously moving all extremities Skin: warm, dry, intact. Multiple healing scab Wounds all over her body. Neuro: Alert oriented x 3 normal cranial nerves, no focal deficits - Assessment and Plan (1) Sepsis Current Visit: Yes Status: Suspected Assessment and Plan: Bacteremia with coagulase-negative staph. From [facility]. Infectious disease consulted. We will follow recommendations. Continue vancomycin. Repeat cultures have been sent today. Will follow results. (2) ESRD (end stage renal disease) on dialysis Current Visit: Yes Status: Chronic Assessment and Plan: Nephrology following. Will be dialyzed per TTS schedule (3) Nausea and vomiting Current Visit: Yes Status: Resolved Assessment and Plan: Resolved now. Could be due to underlying bacteremia/sepsis. (4) Wounds, multiple Current Visit: Yes Status: Chronic Assessment and Plan: From calciphylaxis. Continue local wound care. Continue sodium thiosulfate postdialysis. (5) Weakness generalized Current Visit: Yes Status: Chronic Assessment and Plan: Improving. Continue supportive care. (6) CLABSI (central line-associated bloodstream infection) Current Visit: Yes Status: Acute Assessment and Plan: Continue antibiotics as recommended above. (7) Anemia Current Visit: Yes Status: Chronic Assessment and Plan: Acute on chronic anemia. Hemoglobin 7.2. Will transfuse 1 unit PRBC with dialysis. Check stool for occult blood. DVT Prophylaxis: Eliquis has been held due to need for possible catheter exchange. Patient also having worsening anemia. We will place her on EPCDs - Time Spent with Patient Total time spent is greater than 50% in coordination of care (as documented) at patient's floor/unit and/or counseling patient: Internal Medicine: Result - Labs CBC & Chem 7: 04/09/18 05:17 04/09/18 05:17 Labs: Short CBC 04/09/18 Range/Units 05:17 WBC 9.3 (4.3-11.1) K/mcL Hgb 7.2 L (11.5-15.4) g/dL Hct 22.3 L (35.3-44.9) % Plt Count 87 L (140-400) K/mcL Neutrophils # 7.0 (1.6-8.9) K/mcL BMP 04/09/18 05:17 Sodium 134 L Potassium 4.5 Chloride 100 Carbon Dioxide 24 BUN 18 Creatinine 4.85 H Glucose 59 L Calcium 8.1 L - ABG Interpretation ABG results: PT/INR, D-dimer PT 14.2 Seconds (9.4-12.1) H 04/07/18 10:43 - VTE Reasons for not Prescribing Prophylaxis: Not indicated-Anticoagulated or INR therapeutic Consult Discharge Plan - Plan Referrals: Peter Vicente DO [Primary Care Provider] - (1) Sepsis Qualifiers: Sepsis type: sepsis due to unspecified organism Qualified Code(s): A41.9 - Sepsis, unspecified organism (3) Nausea and vomiting Qualifiers: Vomiting type: unspecified Vomiting Intractability: non-intractable Qualified Code(s): R11.2 - Nausea with vomiting, unspecified (6) CLABSI (central line-associated bloodstream infection) Qualifiers: Encounter type: subsequent encounter Qualified Code(s): T80.211D - Bloodstream infection due to central venous catheter, subsequent encounter (7) Anemia Qualifiers: Anemia type: due to chronic kidney disease Chronic kidney disease stage: on chronic dialysis Qualified Code(s): N18.6 - End stage renal disease; D63.1 - Anemia in chronic kidney disease; Z99.2 - Dependence on renal dialysis
--- NOTE | 2018-04-09 17:36 | Electrocardiograph Report ---
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
[2018-04-10 06:20] LABS: Basophils % 0.1 %; Eosinophils % 0.2 %
[2018-04-10 06:22] LABS: Hematocrit 19.8 % (35.3-44.9); Hemoglobin 6.3 g/dL (11.5-15.4); Immature Platelets 4.6 % (1.1-6.1); Lymphocytes # 1.1 K/mcL (0.6-4.6); Lymphocytes % 12.4 %; Mean Corpuscular HGB Conc 31.8 g/dL (31.6-35.5); Mean Corpuscular Hemoglobin 30.3 pg (28.0-33.3); Mean Corpuscular Volume 95.2 fL (83.0-100.0); Mean Platelet Volume 10.6 fL (9.4-12.4); Monocytes # 0.4 K/mcL (0.0-1.3); Monocytes % 4.9 %; Platelet Count 100 K/mcL (140-400); Red Blood Count 2.08 M/mcL (3.82-4.97); Segmented Neutrophils % 81.4 %
[2018-04-10 06:40] LABS: Calcium 8.3 mg/dL (8.6-10.3); Potassium 5.4 mEq/L (3.5-5.1)
[2018-04-10] MEDS ORDERED: 0.9 % Sodium Chloride 2,000 ML ONE (07:09)
[2018-04-10] MEDS ORDERED: 0.9 % Sodium Chloride 1,000 ML PRIME SCH (07:15)
[2018-04-10] MEDS ORDERED: 0.9 % Sodium Chloride 250 ML IVC PRN (07:15)
[2018-04-10] MEDS: cloNIDine HCl 0.1 MG TABLET PO SCH ×4 (07:18→21:47)
[2018-04-10] MEDS: hydrALAZINE 25 MG TABLET PO SCH ×3 (07:19→21:47)
[2018-04-10] MEDS: amLODIPine 5 MG TABLET PO SCH ×3 (07:19→21:47)
[2018-04-10] MEDS: Budesonide/Formoterol 160/4.5 1 PUFF INH IH SCH ×2 (07:55→20:04)
--- NOTE | 2018-04-10 10:10 | Internal Med Progress Note ---
<Efrem Motta Leonidas - Last Filed: 04/10/18 13:45> Hospitalist Progress Note - Encounter Date of Encounter: 04/10/18 Time of Encounter: 10:08 - Subjective Interval History: Patient was seen in dialysis unit this morning. Patient reports doing well, no complaints. Reports wounds have started bleeding slightly and has been having regular dressing changes. Spoke with Dialysis staff, had not received pRBC 2 Units yet as still awaiting cross/type. Patient denies fevers, chills, sweats, nausea, vomiting, chest pain, shortness of breath, abdominal pain, changes in bowels or bladder, weakness, or rash. Patient still has R chest dialysis cath in place. - Exam Vitals: Temp Pulse Resp BP Pulse Ox 98.3 F 64 16 112/54 97 04/10/18 09:48 04/10/18 10:03 04/10/18 10:03 04/10/18 10:03 04/10/18 07:52 Exam: General: Awake, alert, no acute distress, oriented x 3. HEENT: moist mucus membranes CV: RRR, no murmurs Lungs: CTAB, distant due to body habitus, no wheezes, rhonchi or rales Abdomen: soft, nontender, normal bowel sounds MSK: moves all extremities Skin: warm dry intact except: multiple healing wounds with clean dry intact dressings, on dialysis, Right upper chest dialysis cath in place, no surrounding erythema. Neuro: no focal deficits - Assessment and Plan (1) CLABSI (central line-associated bloodstream infection) Current Visit: Yes Status: Acute Assessment and Plan: Afberile, nontachycardic, non tachypneic, mildly elevated WBC at 12.0 on arrival. CLABSI confirmed with 2 cultures of dialysis cath. Cultures 04/07/18 positive for Staph epidermidis (likely contaminate) and gram positive cocci. Cultures pending. mecA gene detected on PCR. ID on board, continue following recommendations. Echo completed 04/09/18: EF 55%, no valvular vegetations -Dialysis cath exchange, remove today, replace R -Continue with Vancomycin d2 (04/08/18), recommended 7 days continue after exchanged. (2) Acute on chronic anemia Current Visit: Yes Status: Acute Assessment and Plan: Hb 6.3 this morning, from 7.2 yesterday. Anemia of chronic disease Continue Aranesp -2 Units pRBC completed -Continue to monitor CBC, goal Hb 10-11. -Stool hemoccult ordered prior, pending. (3) ESRD on hemodialysis Current Visit: Yes Status: Chronic Assessment and Plan: Nephrology on board. Continue T, R, S. Patient of Dr. Fenton. Plan to exchange dialysis cath, remove today. Plan to replace R. (4) Calciphylaxis Current Visit: No Status: Chronic Assessment and Plan: Hx of Calciphylaxis resulting in multiple wounds including abdomen, upper left thigh, and hips -Continue with wound care management, daily wound care dressings including wet/ dry dressings and sodium thiosulfate. (5) Nausea & vomiting Current Visit: Yes Status: Resolved Assessment and Plan: Resolved. May have been related to bacteremia. (6) Wounds, multiple Current Visit: Yes Status: Chronic Assessment and Plan: Secondary to calciphylaxis, continue per plan in assessment above with wound care management. (7) Weakness generalized Current Visit: Yes Status: Chronic Assessment and Plan: Improving, back at baseline per patient. Likely related to missed dialysis sessions and bacteremia and dehydration. (8) History of kidney transplant Current Visit: No Status: Chronic DVT Prophylaxis: Eliquis continues to be held due to plan for dialysis cath exchange, removal planned today, replace . -EPCDs - Time Spent with Patient Total time spent is greater than 50% in coordination of care (as documented) at patient's floor/unit and/or counseling patient: Internal Medicine: Result - Labs CBC & Chem 7: 04/10/18 05:53 04/10/18 05:53 Labs: Short CBC 04/10/18 Range/Units 05:53 WBC 8.6 (4.3-11.1) K/mcL Hgb 6.3 L (11.5-15.4) g/dL Hct 19.8 L (35.3-44.9) % Plt Count 100 L (140-400) K/mcL Neutrophils # 7.0 (1.6-8.9) K/mcL BMP 04/10/18 05:53 Sodium 133 L Potassium 5.4 H Chloride 100 Carbon Dioxide 22 L BUN 25 H Creatinine 5.77 H Glucose 90 Calcium 8.3 L - ABG Interpretation ABG results: PT/INR, D-dimer PT 14.2 Seconds (9.4-12.1) H 04/07/18 10:43 - VTE Reasons for not Prescribing Prophylaxis: Not indicated-Anticoagulated or INR therapeutic Consult Discharge Plan - Plan Referrals: Peter Vicente DO [Primary Care Provider] - <EthanEric - Last Filed: 04/10/18 17:16> Hospitalist Progress Note - Encounter Date of Encounter: 04/10/18 - Exam Vitals: Temp Pulse Resp BP Pulse Ox 98.8 F 69 16 120/72 96 04/10/18 16:33 04/10/18 16:33 04/10/18 16:33 04/10/18 16:33 04/10/18 16:33 - Assessment and Plan (1) Anemia Current Visit: Yes Status: Chronic (2) ESRD (end stage renal disease) on dialysis Current Visit: Yes Status: Chronic (3) Sepsis Current Visit: Yes Status: Suspected (4) Nausea and vomiting Current Visit: Yes Status: Resolved (5) Wounds, multiple Current Visit: Yes Status: Chronic (6) Weakness generalized Current Visit: Yes Status: Chronic (7) CLABSI (central line-associated bloodstream infection) Current Visit: Yes Status: Acute - Time Spent with Patient Total time spent is greater than 50% in coordination of care (as documented) at patient's floor/unit and/or counseling patient: Internal Medicine: Result - Labs CBC & Chem 7: 04/10/18 05:53 04/10/18 05:53 Labs: Short CBC 04/10/18 Range/Units 05:53 WBC 8.6 (4.3-11.1) K/mcL Hgb 6.3 L (11.5-15.4) g/dL Hct 19.8 L (35.3-44.9) % Plt Count 100 L (140-400) K/mcL Neutrophils # 7.0 (1.6-8.9) K/mcL BMP 04/10/18 05:53 Sodium 133 L Potassium 5.4 H Chloride 100 Carbon Dioxide 22 L BUN 25 H Creatinine 5.77 H Glucose 90 Calcium 8.3 L - ABG Interpretation ABG results: PT/INR, D-dimer PT 14.2 Seconds (9.4-12.1) H 04/07/18 10:43 - Impressions Impressions Tunnelled Catheter Removal 04/10/18 00:00 IMPRESSION: Successful tunneled right internal jugular hemodialysis catheter removal D/ / Matthew Hill MD / Matthew Hill MD Interpreting Provider: Matthew Hill MD - Attending Attestation I have seen and examined this pt independently. I have discussed with resident physician Dr. Motta regarding the management plan. Agree with the documentation. <Efrem Motta - Last Filed: 04/10/18 13:45> (1) CLABSI (central line-associated bloodstream infection) Qualifiers: Encounter type: subsequent encounter Qualified Code(s): T80.211D - Bloodstream infection due to central venous catheter, subsequent encounter (5) Nausea & vomiting Qualifiers: Vomiting type: unspecified Vomiting Intractability: unspecified Qualified Code(s): R11.2 - Nausea with vomiting, unspecified <Eric Long - Last Filed: 04/10/18 17:16> (1) Anemia Qualifiers: Anemia type: due to chronic kidney disease Chronic kidney disease stage: on chronic dialysis Qualified Code(s): N18.6 - End stage renal disease; D63.1 - Anemia in chronic kidney disease; Z99.2 - Dependence on renal dialysis (3) Sepsis Qualifiers: Sepsis type: sepsis due to unspecified organism Qualified Code(s): A41.9 - Sepsis, unspecified organism (4) Nausea and vomiting Qualifiers: Vomiting type: unspecified Vomiting Intractability: non-intractable Qualified Code(s): R11.2 - Nausea with vomiting, unspecified (7) CLABSI (central line-associated bloodstream infection) Qualifiers: Encounter type: subsequent encounter Qualified Code(s): T80.211D - Bloodstream infection due to central venous catheter, subsequent encounter
--- NOTE | 2018-04-10 11:45 | Infectious Disease Progress No ---
Date of Encounter: 04/10/18 Time of Encounter: 11:43 - Assessment and Plan (1) CLABSI (central line-associated bloodstream infection) Current Visit: Yes Status: Acute Causative organism: Unclear. Blood cultures obtained on the day of admission from her dialysis catheter +2 out of 2 sets for gram-positive cocci. The PCR did find staph species, but not staph aureus. Final ID and sensitivities are pending. Source: Likely the patient's permacath. Apparently, the patient's cuff was exposed on admission. Repeat blood cultures drawn 04/09/18 are pending 2 sets. No endocarditis stigmata noted on exam. Planning to remove HD catheter later today after she completes dialysis. Will have a line holiday and will have a new line placed on . Continue vancomycin IV. Pharmacy to dose. Goal trough approximately 15. Duration of treatment depends on the clinical picture, but likely 7 days post- catheter removal. Monitor for drug toxicity and dose-adjust antibiotics. Qualifiers: Encounter type: subsequent encounter Qualified Code(s): T80.211D - Bloodstream infection due to central venous catheter, subsequent encounter (2) Acute on chronic anemia Current Visit: Yes Status: Acute Hemoglobin down to 6.3 this morning. Management per the primary and nephrology teams. (3) Weakness generalized Current Visit: Yes Status: Chronic Likely secondary to bacteremia. Appears improved. (4) Nausea and vomiting Current Visit: Yes Status: Resolved Qualifiers: Vomiting type: unspecified Vomiting Intractability: non-intractable Qualified Code(s): R11.2 - Nausea with vomiting, unspecified (5) Calciphylaxis Current Visit: No Status: Chronic Continue sodium thiosulfate with hemodialysis. Management per the nephrology team. (6) ESRD (end stage renal disease) Current Visit: No Status: Chronic Nephrology consult and following ptosis with HD management. - Subjective Interval history: Patient seen and examined. No acute events noted overnight. Patient states overall she feels better today. Reports persistent pain in her right leg at the site of her calciphylaxis. Denies any fevers or chills or rigors. Denies chest pain, shortness of breath, or cough. Denies nausea, vomiting, diarrhea, or constipation. Reports last bowel movement was yesterday. She has an uric secondary to her end-stage renal disease. She denies any oral thrush or any skin lesions. Infect Dis PN-Objective Data - Labs CBC & Chem 7: 04/10/18 05:53 04/10/18 05:53 Labs: Laboratory Results - last 24 hr 04/08/18 04/09/18 04/09/18 19:49 07:43 07:44 WBC RBC Hgb Hct MCV MCH MCHC RDW Plt Count MPV Immature Gran % Seg Neutrophils % Lymphocytes % Monocytes % Eosinophils % Basophils % Neutrophils # Lymphocytes # Monocytes # Eosinophils # Basophils # Immature Plt Fraction Sodium Potassium Chloride Carbon Dioxide BUN Creatinine Est GFR ( Amer) Est GFR (Non-Af Amer) BUN/Creatinine Ratio Glucose POC Glucose 97 59 L 63 L Calculated Osmolality Calcium Random Vancomycin Blood Type Antibody Screen Crossmatch 04/09/18 04/09/18 04/10/18 11:44 16:53 05:53 WBC RBC Hgb Hct MCV MCH MCHC RDW Plt Count MPV Immature Gran % Seg Neutrophils % Lymphocytes % Monocytes % Eosinophils % Basophils % Neutrophils # Lymphocytes # Monocytes # Eosinophils # Basophils # Immature Plt Fraction Sodium Potassium Chloride Carbon Dioxide BUN Creatinine Est GFR ( Amer) Est GFR (Non-Af Amer) BUN/Creatinine Ratio Glucose POC Glucose 102 H 87 Calculated Osmolality Calcium Random Vancomycin 22 Blood Type Antibody Screen Crossmatch 04/10/18 04/10/18 04/10/18 05:53 05:53 07:42 WBC 8.6 RBC 2.08 L Hgb 6.3 L Hct 19.8 L MCV 95.2 MCH 30.3 MCHC 31.8 RDW 16.0 H Plt Count 100 L MPV 10.6 Immature Gran % 1.0 Seg Neutrophils % 81.4 Lymphocytes % 12.4 Monocytes % 4.9 Eosinophils % 0.2 Basophils % 0.1 Neutrophils # 7.0 Lymphocytes # 1.1 Monocytes # 0.4 Eosinophils # 0.0 Basophils # 0.0 Immature Plt Fraction 4.6 Sodium 133 L Potassium 5.4 H Chloride 100 Carbon Dioxide 22 L BUN 25 H Creatinine 5.77 H Est GFR ( Amer) 10 L Est GFR (Non-Af Amer) 8 L BUN/Creatinine Ratio 4 L Glucose 90 POC Glucose Calculated Osmolality 280 Calcium 8.3 L Random Vancomycin Blood Type B POSITIVE Antibody Screen NEGATIVE Crossmatch See Detail Cultures: Cultures 04/09/18 10:32 Blood Culture - Preliminary Central Venous Catheter Culture is incubating and being continuously monitored for growth. Final report to follow. 04/09/18 05:17 Blood Culture - Preliminary Peripheral Venipuncture Culture is incubating and being continuously monitored for growth. Final report to follow. Exam - Constitutional Vitals: Temp Pulse Resp BP Pulse Ox 98.4 F 58 16 122/68 97 04/10/18 10:50 04/10/18 10:50 04/10/18 10:50 04/10/18 11:10 04/10/18 07:52 General appearance: cooperative, no acute distress, obese - Head Head exam: Present: atraumatic, normal inspection, normocephalic - Eye Eye exam: Present: EOMI, normal appearance, PERRL Pupils: Present: normal accommodation Additional comments: No subconjunctival hemorrhage noted. - ENT ENT exam: Present: mucous membranes moist - Neck Neck exam: Present: normal inspection - Respiratory Respiratory exam: Present: CTAB. Absent: rales, respiratory distress, rhonchi, wheezes - Cardiovascular Cardiovascular exam: Present: RRR, +S1, +S2 - GI/Abdominal GI/Abdominal exam: Present: distended (obese), normal bowel sounds, soft. Absent: tenderness Additional comments: Abdominal dressings are clean, dry, and intact. - Extremities Exam Extremities exam: Absent: joint swelling, normal inspection (Bilateral upper thigh dressings are clean, dry, and intact. Necrotic lesion noted to the left hand third digit.), pedal edema, tenderness - Neurological Exam Neurological exam: Present: alert, oriented X3, no focal deficits - Psychiatric Psychiatric exam: Present: normal affect, normal mood - Skin Skin exam: Present: normal color, warm - Additional findings Additional findings: Permacath noted to the right upper chest with mild erythema surrounding the insertion site. Transparent dressing is clean, dry, and intact. - VTE Reasons for not Prescribing Prophylaxis: Not indicated-Anticoagulated or INR therapeutic Consult Discharge Plan - Plan Referrals: Peter Vicente DO [Primary Care Provider] - - Attending Attestation I examined this patient and my medical decision-making was reviewed with the Resident Physician. I agree with the documented findings, disposition and treatment plan as described except to the extent set forth below.
--- NOTE | 2018-04-10 12:39 | Nephrology Progress Note ---
Date of Encounter: 04/10/18 Time of Encounter: 12:37 - Assessment and Plan (1) ESRD (end stage renal disease) on dialysis Current Visit: Yes Status: Chronic Current regimen is TTS at [facility]. HD completed today, waiting to remove Tunneled Line. Will plan for line Holiday and then replace on . Avoid nephrotoxins and renal dose all medications. (2) Calciphylaxis Current Visit: No Status: Chronic Sodium Thiosulfate ordered with HD. Wound Care consult. (3) Anemia in chronic kidney disease (CKD) Current Visit: No Status: Chronic 2 units PRBCs transfused today. Qualifiers: Chronic kidney disease stage: on chronic dialysis Qualified Code(s): N18.6 - End stage renal disease; D63.1 - Anemia in chronic kidney disease; Z99.2 - Dependence on renal dialysis (4) Noncompliance with renal dialysis Current Visit: Yes Status: Chronic Pt has missed several treatments in the past. (5) Hypertension Current Visit: No Status: Chronic Stable, BP is 139/85 Qualifiers: Hypertension type: essential hypertension Qualified Code(s): I10 - Essential (primary) hypertension (6) History of kidney transplant Current Visit: No Status: Chronic (7) Secondary hyperparathyroidism (of renal origin) Current Visit: No Status: Chronic Continue home Vit D rx. (8) Nausea and vomiting Current Visit: Yes Status: Resolved Suportive care, unsure of etiology. Qualifiers: Vomiting type: unspecified Vomiting Intractability: non-intractable Qualified Code(s): R11.2 - Nausea with vomiting, unspecified Subjective Principal diagnosis: general weakness Interval history: Pt seen and examined, is feeling a little better today. Is waiting to get Tunneled Line removed from IR. Objective - Vital Signs Vital signs: Vital Signs Temp Pulse Resp BP Pulse Ox 04/10/18 11:55 97.9 F 16 139/85 04/10/18 11:40 122/53 04/10/18 11:25 122/55 04/10/18 11:10 122/68 04/10/18 10:55 111/49 04/10/18 10:50 98.4 F 58 16 160/64 04/10/18 10:40 122/58 04/10/18 10:35 98.2 F 64 16 127/48 04/10/18 10:25 112/50 04/10/18 10:20 98.2 F 65 16 119/52 04/10/18 10:18 98.2 F 64 16 114/51 04/10/18 10:10 114/51 04/10/18 10:03 64 16 112/54 04/10/18 09:55 133/50 04/10/18 09:48 98.3 F 66 16 04/10/18 09:40 121/65 04/10/18 09:25 129/57 04/10/18 09:10 128/44 04/10/18 08:55 118/69 04/10/18 08:40 118/39 04/10/18 08:25 119/36 04/10/18 08:10 98.4 F 16 136/43 04/10/18 07:52 16 97 04/10/18 07:36 98.5 F 67 16 106/58 97 04/10/18 04:05 98.6 F 74 16 100/61 96 04/10/18 00:00 98.9 F 69 16 96/46 96 04/09/18 20:12 18 99 04/09/18 19:32 98.8 F 69 16 106/57 98 04/09/18 16:56 98.6 F 68 16 101/59 98 Intake and Output 04/09/18 04/10/18 04/10/18 23:59 07:59 15:59 Intake Total 1400 / 1400 Output Total 4400 / 4400 Balance -3000 / -3000 Intake: Oral 100 / 100 Blood Product 700 / 700 Rbcs Leuko Poor As-1 Unit 350 / 350 [id number] Rbcs Leuko Poor As-3 Ph Unit 350 / 350 [id number] Intake, Rinseback and Flushes 600 / 600 Output: Total Dialysis (HD) Output 4400 / 4400 Other: Weight 81.6 kg Blood Glucose* 89 91 81 Hemodialysis Net Fluid Removed 3000 (mL) Patient Weight 04/10/18 23:59 Weight 81.6 kg - General Appearance General appearance: Present: well-developed, well-nourished EENT: Present: ATNC, hearing intact, vision intact Neck: Present: supple Respiratory: Present: clear Cardiology: Present: no edema, normal S1, normal S2 Dialysis Vascular Access: Venous Catheter (Tunneled Line.) Gastrointestinal: Present: normoactive bowel sounds, no tenderness, no guarding Integumentary: Present: no rash, warm and dry Neurologic: Present: alert and oriented x3 Psychiatric: Present: mood/affect appropriate, cooperative - Lab 04/10/18 05:53 04/10/18 05:53 Most recent lab results Calcium 8.3 mg/dL (8.6-10.3) L 04/10/18 05:53 Phosphorus 4.1 mg/dL (2.7-4.5) 04/07/18 08:53 Magnesium 1.6 mg/dL (1.6-2.6) 04/08/18 04:53 - VTE Reasons for not Prescribing Prophylaxis: Not indicated-Anticoagulated or INR therapeutic Consult Discharge Plan - Plan Referrals: Peter Vicente DO [Primary Care Provider] -
[2018-04-10] MEDS: *HR* Amiodarone 200 MG TABLET PO SCH (12:52)
[2018-04-10] MEDS: Folic Acid 1 MG TABLET PO SCH (12:52)
[2018-04-10] MEDS: Metoprolol XL (24 HR) Succ 25 MG TAB.ER.24H PO SCH (12:52)
[2018-04-10] MEDS: predniSONE 10 MG TABLET PO SCH (12:52)
[2018-04-10] MEDS: Acetaminophen 325 MG TABLET PO PRN ×2 (12:55→18:47)
[2018-04-10] MEDS ORDERED: Sodium Thiosulfate 25 GM in EMPTY BAG 1 EACH IVPB ONE (15:00)
[2018-04-10] MEDS ORDERED: Vancomycin 500 MG in 0.9 % Sodium Chloride Mini Bag 100 ML IVPB ONE (16:00)
[2018-04-10] MEDS: Gentamicin Oint 15 GM TUBE TP SCH (21:51)
[2018-04-11] MEDS: Acetaminophen 325 MG TABLET PO PRN ×3 (04:43→23:25)
[2018-04-11 05:59] LABS: Mean Platelet Volume 10.5 fL (9.4-12.4)
[2018-04-11 06:01] LABS: Hematocrit 29.6 % (35.3-44.9); Hemoglobin 9.9 g/dL (11.5-15.4); Immature Platelets 5.5 % (1.1-6.1); Mean Corpuscular HGB Conc 33.4 g/dL (31.6-35.5); Mean Corpuscular Hemoglobin 30.9 pg (28.0-33.3); Mean Corpuscular Volume 92.5 fL (83.0-100.0); Red Blood Count 3.2 M/mcL (3.82-4.97); Red Cell Distribution Width 15.8 % (11.5-14.5)
[2018-04-11 06:12] LABS: Calcium 8.1 mg/dL (8.6-10.3); Potassium 4.1 mEq/L (3.5-5.1)
[2018-04-11] MEDS: Budesonide/Formoterol 160/4.5 1 PUFF INH IH SCH ×2 (07:57→20:20)
[2018-04-11] MEDS: cloNIDine HCl 0.1 MG TABLET PO SCH ×3 (08:27→21:13)
[2018-04-11] MEDS: Metoprolol XL (24 HR) Succ 25 MG TAB.ER.24H PO SCH (08:28)
[2018-04-11] MEDS: hydrALAZINE 25 MG TABLET PO SCH ×2 (08:28→21:13)
[2018-04-11] MEDS: amLODIPine 5 MG TABLET PO SCH ×2 (08:28→21:12)
[2018-04-11] MEDS: Folic Acid 1 MG TABLET PO SCH (08:28)
[2018-04-11] MEDS: *HR* Amiodarone 200 MG TABLET PO SCH (08:28)
[2018-04-11] MEDS: predniSONE 10 MG TABLET PO SCH (08:28)
--- NOTE | 2018-04-11 10:08 | Infectious Disease Progress No ---
Date of Encounter: 04/11/18 Time of Encounter: 10:06 - Assessment and Plan (1) CLABSI (central line-associated bloodstream infection) Current Visit: Yes Status: Acute Causative organism: Unclear. Blood cultures obtained on the day of admission from her dialysis catheter +2 out of 2 sets for S. epi. Source: Likely the patient's permacath. Apparently, the patient's cuff was exposed on admission. Repeat blood cultures drawn 04/09/18 are positive 1/2 sets from the HD catheter. No endocarditis stigmata noted on exam. Status post HD catheter removal 04/10/18. Repeat blood cultures 2 sets now. Continue vancomycin IV. Pharmacy to dose. Goal trough approximately 15. (day 1 post-catheter removal) Duration of treatment depends on the clinical picture, but likely 7 days post- catheter removal. Monitor for drug toxicity and dose-adjust antibiotics. Qualifiers: Encounter type: subsequent encounter Qualified Code(s): T80.211D - Bloodstream infection due to central venous catheter, subsequent encounter (2) Acute on chronic anemia Current Visit: Yes Status: Acute Hemoglobin improved to 9.9 after PRBC transfusion yesterday with HD. Management per the primary and nephrology teams. (3) Weakness generalized Current Visit: Yes Status: Chronic Likely secondary to bacteremia. Appears improved. (4) Nausea and vomiting Current Visit: Yes Status: Resolved Qualifiers: Vomiting type: unspecified Vomiting Intractability: non-intractable Qualified Code(s): R11.2 - Nausea with vomiting, unspecified (5) Calciphylaxis Current Visit: No Status: Chronic Continue sodium thiosulfate with hemodialysis. Management per the nephrology team. (6) ESRD (end stage renal disease) Current Visit: No Status: Chronic Nephrology consult and following ptosis with HD management. - Subjective Interval history: Patient seen and examined. No acute events noted overnight. Patient states overall she feels better today. Denies pain at this time. Denies any fevers or chills or rigors. Denies chest pain, shortness of breath, or cough. Denies nausea, vomiting, diarrhea, or constipation. Reports last bowel movement was two days ago. She has anuric secondary to her end-stage renal disease. She reports that her appetite is okay. She denies any oral thrush or any skin lesions. Infect Dis PN-Objective Data - Labs CBC & Chem 7: 04/11/18 05:37 04/11/18 05:37 Labs: Laboratory Results - last 24 hr 04/09/18 04/10/18 04/10/18 19:30 07:32 07:42 WBC RBC Hgb Hct MCV MCH MCHC RDW Plt Count MPV Immature Plt Fraction Sodium Potassium Chloride Carbon Dioxide BUN Creatinine Est GFR ( Amer) Est GFR (Non-Af Amer) BUN/Creatinine Ratio Glucose POC Glucose 89 91 Calculated Osmolality Calcium Blood Type B POSITIVE Antibody Screen NEGATIVE Crossmatch See Detail 04/10/18 04/10/18 04/11/18 11:02 16:30 05:37 WBC 8.4 RBC 3.20 L Hgb 9.9 L D Hct 29.6 L MCV 92.5 MCH 30.9 MCHC 33.4 RDW 15.8 H Plt Count 104 L MPV 10.5 Immature Plt Fraction 5.5 Sodium Potassium Chloride Carbon Dioxide BUN Creatinine Est GFR ( Amer) Est GFR (Non-Af Amer) BUN/Creatinine Ratio Glucose POC Glucose 81 98 Calculated Osmolality Calcium Blood Type Antibody Screen Crossmatch 04/11/18 04/11/18 05:37 08:11 WBC RBC Hgb Hct MCV MCH MCHC RDW Plt Count MPV Immature Plt Fraction Sodium 141 Potassium 4.1 Chloride 105 Carbon Dioxide 23 BUN 16 Creatinine 3.70 H Est GFR ( Amer) 16 L Est GFR (Non-Af Amer) 13 L BUN/Creatinine Ratio 4 L Glucose 109 H POC Glucose 87 Calculated Osmolality 294 Calcium 8.1 L Blood Type Antibody Screen Crossmatch Cultures: Cultures 04/11/18 09:05 Blood Culture - Preliminary Peripheral Venipuncture Culture is incubating and being continuously monitored for growth. Final report to follow. 04/11/18 09:05 Blood Culture - Preliminary Peripheral Venipuncture Culture is incubating and being continuously monitored for growth. Final report to follow. 04/09/18 10:32 Blood Culture - Preliminary Central Venous Catheter Gram Positive Cocci 04/09/18 05:17 Blood Culture - Preliminary Peripheral Venipuncture Culture is incubating and being continuously monitored for growth. Final report to follow. - Impressions Impressions Tunnelled Catheter Removal 04/10/18 00:00 IMPRESSION: Successful tunneled right internal jugular hemodialysis catheter removal D/ / Matthew Hill MD / Matthew Hill MD Interpreting Provider: Matthew Hill MD Exam - Constitutional Vitals: Temp Pulse Resp BP Pulse Ox 98.0 F 64 16 170/79 99 04/11/18 08:29 04/11/18 08:29 04/11/18 08:29 04/11/18 08:29 04/11/18 08:29 General appearance: cooperative, no acute distress, obese - Head Head exam: Present: atraumatic, normal inspection, normocephalic - Eye Eye exam: Present: EOMI, normal appearance, PERRL Pupils: Present: normal accommodation - ENT ENT exam: Present: mucous membranes moist - Neck Neck exam: Present: normal inspection - Respiratory Respiratory exam: Present: CTAB. Absent: rales, respiratory distress, rhonchi, wheezes - Cardiovascular Cardiovascular exam: Present: RRR, +S1, +S2 - GI/Abdominal GI/Abdominal exam: Present: distended (obese), normal bowel sounds, soft. Absent: tenderness Additional comments: Abdominal dressings C/D/I. - Extremities Exam Extremities exam: Absent: joint swelling, normal inspection (Necrotic ulcer noted to the distal aspect of the third digit on the left hand.), pedal edema, tenderness Additional comments: Bilateral upper thigh dressings C/D/I. - Neurological Exam Neurological exam: Present: alert, oriented X3, no focal deficits - Psychiatric Psychiatric exam: Present: normal affect, normal mood - Skin Skin exam: Present: dry, intact, normal color, warm - Additional findings Additional findings: Guaze dressing noted to the previous Perma-cath site. C/D/I. - VTE Reasons for not Prescribing Prophylaxis: Not indicated-Anticoagulated or INR therapeutic Consult Discharge Plan - Plan Referrals: Peter Vicente DO [Primary Care Provider] - - Attending Attestation I examined this patient and my medical decision-making was reviewed with the Resident Physician. I agree with the documented findings, disposition and treatment plan as described except to the extent set forth below.
--- NOTE | 2018-04-11 11:48 | Nephrology Progress Note ---
Date of Encounter: 04/11/18 Time of Encounter: 11:45 - Assessment and Plan (1) ESRD (end stage renal disease) on dialysis Current Visit: Yes Status: Chronic Current regimen is TTS at [facility]. Tunneled Line removed yesterday, ID did not want cultures of the tip. NPO at midnight and IR consult placed to replace Tunneled Line tomorrow. Avoid nephrotoxins, renal dose all medications. (2) Calciphylaxis Current Visit: No Status: Chronic Continue Sodium Thiosulfate. (3) Anemia in chronic kidney disease (CKD) Current Visit: No Status: Chronic Goal Hgb is 10-11. Hgb is 9.9 after 2 transfusions of PRBCs on 04/10/18. Qualifiers: Chronic kidney disease stage: on chronic dialysis Qualified Code(s): N18.6 - End stage renal disease; D63.1 - Anemia in chronic kidney disease; Z99.2 - Dependence on renal dialysis (4) Noncompliance with renal dialysis Current Visit: Yes Status: Chronic Pt has missed several treatments in the past. I had counseled her to focus on improving compliance. (5) Hypertension Current Visit: No Status: Chronic Qualifiers: Hypertension type: essential hypertension Qualified Code(s): I10 - Essential (primary) hypertension (6) Nausea and vomiting Current Visit: Yes Status: Resolved Suportive care, unsure of etiology. Qualifiers: Vomiting type: unspecified Vomiting Intractability: non-intractable Qualified Code(s): R11.2 - Nausea with vomiting, unspecified Subjective Principal diagnosis: ESRD Interval history: Pt seen and examined. No complaints. Objective - Vital Signs Vital signs: Vital Signs Temp Pulse Resp BP Pulse Ox 04/11/18 08:29 98.0 F 64 16 170/79 99 04/11/18 07:59 18 99 04/11/18 05:40 98.5 F 64 16 153/85 99 04/11/18 01:29 98.2 F 66 16 148/87 99 04/10/18 20:49 98.3 F 71 16 135/86 94 04/10/18 20:06 18 97 04/10/18 16:33 98.8 F 69 16 120/72 96 04/10/18 12:56 70 135/80 04/10/18 11:55 97.9 F 16 139/85 Intake and Output 04/10/18 04/11/18 04/11/18 23:59 07:59 15:59 Intake Total 240 / 240 200 / 200 Balance 240 / 240 200 / 200 Intake: IV Fluids 200 / 200 Oral 240 / 240 Other: Meal Dinner Percent of Meal Consumed 25% Blood Glucose* 132 87 - General Appearance General appearance: Present: well-developed, well-nourished EENT: Present: ATNC, hearing intact, vision intact Neck: Present: supple Respiratory: Present: clear Cardiology: Present: no edema, normal S1, normal S2 Gastrointestinal: Present: normoactive bowel sounds, no tenderness, no guarding Integumentary: Present: no rash, warm and dry Neurologic: Present: alert and oriented x3 Psychiatric: Present: mood/affect appropriate, cooperative - Lab 04/11/18 05:37 04/11/18 05:37 Most recent lab results Calcium 8.1 mg/dL (8.6-10.3) L 04/11/18 05:37 Phosphorus 4.1 mg/dL (2.7-4.5) 04/07/18 08:53 Magnesium 1.6 mg/dL (1.6-2.6) 04/08/18 04:53 - VTE Reasons for not Prescribing Prophylaxis: Not indicated-Anticoagulated or INR therapeutic Consult Discharge Plan - Plan Referrals: Peter Vicente DO [Primary Care Provider] -
--- NOTE | 2018-04-11 12:44 | Internal Med Progress Note ---
Hospitalist Progress Note - Encounter Date of Encounter: 04/11/18 Time of Encounter: 09:00 - Subjective Interval History: Pt has no fever. Feels comfortable, no further complaints. Plan for new HD catheter tomorrow. - Exam Vitals: Temp Pulse Resp BP Pulse Ox 98.0 F 65 16 161/87 97 04/11/18 12:09 04/11/18 12:09 04/11/18 12:04/11/18 12:04/11/18 12:09 Exam: General: Awake, alert, no acute distress, oriented x 3. HEENT: moist mucus membranes CV: RRR, no murmurs Lungs: CTAB, distant due to body habitus, no wheezes, rhonchi or rales Abdomen: soft, nontender, normal bowel sounds MSK: moves all extremities Skin: warm dry intact except: multiple healing wounds with clean dry intact dressings, on dialysis, Right upper chest dialysis cath removed. Neuro: no focal deficits - Assessment and Plan (1) Anemia Current Visit: Yes Status: Chronic Assessment and Plan: Due to ESRD. Had transfusion yesterday. H/H stable so far. (2) ESRD (end stage renal disease) on dialysis Current Visit: Yes Status: Chronic Assessment and Plan: Nephrology following. Will be dialyzed per TTS schedule (3) Sepsis Current Visit: Yes Status: Suspected Assessment and Plan: Bacteremia with coagulase-negative staph. From CLASBI. Infectious disease consulted. We will follow recommendations. Continue vancomycin iv. Cont 7 days after catheter removal per ID recommendation. (4) Nausea and vomiting Current Visit: Yes Status: Resolved Assessment and Plan: Resolved now. Could be due to underlying bacteremia/sepsis. (5) Wounds, multiple Current Visit: Yes Status: Chronic Assessment and Plan: From calciphylaxis. Continue local wound care. Continue sodium thiosulfate postdialysis. (6) Weakness generalized Current Visit: Yes Status: Chronic Assessment and Plan: Improving. Continue supportive care. (7) CLABSI (central line-associated bloodstream infection) Current Visit: Yes Status: Acute Assessment and Plan: Continue antibiotics as recommended above. TTE done, no vegetation visualized (8) Chronic steroid use Current Visit: Yes Status: Acute Assessment and Plan: Pt is on chronic prednisone 10mg po daily for many years, for "BP is low". Need stress dose steroid if in critical condition. (9) Afib Current Visit: No Status: Chronic Assessment and Plan: Rate is controlled, home med eliquis is on hold now for HD catheter change. DVT Prophylaxis: EPCDs - Time Spent with Patient Total time spent is greater than 50% in coordination of care (as documented) at patient's floor/unit and/or counseling patient: 30 min 25 - 35 minutes Plan of Care Discussed with: patient Internal Medicine: Result - Labs CBC & Chem 7: 04/11/18 05:37 04/11/18 05:37 Labs: Short CBC 04/11/18 Range/Units 05:37 WBC 8.4 (4.3-11.1) K/mcL Hgb 9.9 L D (11.5-15.4) g/dL Hct 29.6 L (35.3-44.9) % Plt Count 104 L (140-400) K/mcL BMP 04/11/18 05:37 Sodium 141 Potassium 4.1 Chloride 105 Carbon Dioxide 23 BUN 16 Creatinine 3.70 H Glucose 109 H Calcium 8.1 L - ABG Interpretation ABG results: PT/INR, D-dimer PT 14.2 Seconds (9.4-12.1) H 04/07/18 10:43 - Impressions Impressions Tunnelled Catheter Removal 04/10/18 00:00 IMPRESSION: Successful tunneled right internal jugular hemodialysis catheter removal D/ / Matthew Hill MD / Matthew Hill MD Interpreting Provider: Matthew Hill MD - VTE Reasons for not Prescribing Prophylaxis: Not indicated-Anticoagulated or INR therapeutic Consult Discharge Plan - Plan Referrals: Peter Vicente DO [Primary Care Provider] - (1) Anemia Qualifiers: Anemia type: due to chronic kidney disease Chronic kidney disease stage: on chronic dialysis Qualified Code(s): N18.6 - End stage renal disease; D63.1 - Anemia in chronic kidney disease; Z99.2 - Dependence on renal dialysis (3) Sepsis Qualifiers: Sepsis type: sepsis due to unspecified organism Qualified Code(s): A41.9 - Sepsis, unspecified organism (4) Nausea and vomiting Qualifiers: Vomiting type: unspecified Vomiting Intractability: non-intractable Qualified Code(s): R11.2 - Nausea with vomiting, unspecified (7) CLABSI (central line-associated bloodstream infection) Qualifiers: Encounter type: subsequent encounter Qualified Code(s): T80.211D - Bloodstream infection due to central venous catheter, subsequent encounter (9) Afib Qualifiers: Atrial fibrillation type: paroxysmal Qualified Code(s): I48.0 - Paroxysmal atrial fibrillation
[2018-04-11 13:07] LABS: Acinetobacter baumannii by PCR Not Detected (Not Detect); Candida albicans by PCR Not Detected (Not Detect); Candida glabrata by PCR Not Detected (Not Detect); Candida krusei by PCR Not Detected (Not Detect); Candida parapsilosis by PCR Not Detected (Not Detect); Candida tropicalis by PCR Not Detected (Not Detect); Enterobacter cloacae Cmplx PCR Not Detected (Not Detect); Enterobacteriaceae by PCR Not Detected (Not Detect); Enterococcus by PCR Not Detected (Not Detect); Escherichia coli by PCR Not Detected (Not Detect); Klebsiella oxytoca by PCR Not Detected (Not Detect); Klebsiella pneumoniae by PCR Not Detected (Not Detect); Proteus by PCR Not Detected (Not Detect); Pseudomonas aeruginosa by PCR Not Detected (Not Detect); Serratia marcescens by PCR Not Detected (Not Detect); Staphylococcus aureus by PCR Not Detected (Not Detect); Staphylococcus by PCR DETECTED (Not Detect); Streptococcus agalactiae(B)PCR Not Detected (Not Detect); Streptococcus by PCR Not Detected (Not Detect); Streptococcus pneumoniae PCR Not Detected (Not Detect); Streptococcus pyogenes (A) PCR Not Detected (Not Detect); blaKPC Carbapenem-Resist Gene Not Detected (Not Detect); mecA Methicillin-Resist Gene DETECTED (Not Detect); vanA/B Vancomycin-Resist Genes Not Detected (Not Detect)
[2018-04-12] MEDS: Gentamicin Oint 15 GM TUBE TP SCH (01:14)
[2018-04-12 06:21] LABS: Hematocrit 29.2 % (35.3-44.9); Hemoglobin 9.5 g/dL (11.5-15.4); Mean Corpuscular HGB Conc 32.5 g/dL (31.6-35.5); Mean Corpuscular Hemoglobin 30.4 pg (28.0-33.3); Mean Corpuscular Volume 93.6 fL (83.0-100.0); Mean Platelet Volume 10.4 fL (9.4-12.4); Platelet Count 110 K/mcL (140-400); Red Blood Count 3.12 M/mcL (3.82-4.97); Red Cell Distribution Width 15.3 % (11.5-14.5)
[2018-04-12 06:49] LABS: Calcium 8.5 mg/dL (8.6-10.3)
[2018-04-12] MEDS ORDERED: 0.9 % Sodium Chloride 2,000 ML ONE (07:43)
[2018-04-12] MEDS ORDERED: 0.9 % Sodium Chloride 250 ML IVC PRN (08:00)
[2018-04-12] MEDS ORDERED: 0.9 % Sodium Chloride 1,000 ML PRIME SCH (08:00)
[2018-04-12] MEDS: cloNIDine HCl 0.1 MG TABLET PO SCH ×2 (10:17→19:31)
[2018-04-12] MEDS: Metoprolol XL (24 HR) Succ 25 MG TAB.ER.24H PO SCH (10:18)
[2018-04-12] MEDS: amLODIPine 5 MG TABLET PO SCH (10:18)
[2018-04-12] MEDS: *HR* Amiodarone 200 MG TABLET PO SCH (10:18)
[2018-04-12] MEDS: hydrALAZINE 25 MG TABLET PO SCH (10:18)
[2018-04-12] MEDS: Folic Acid 1 MG TABLET PO SCH (10:18)
[2018-04-12] MEDS: predniSONE 10 MG TABLET PO SCH (10:18)
[2018-04-12] MEDS: Acetaminophen 325 MG TABLET PO PRN (10:23)
--- NOTE | 2018-04-12 10:38 | Internal Med Progress Note ---
<Efrem Motta - Last Filed: 04/12/18 11:23> Hospitalist Progress Note - Encounter Date of Encounter: 04/12/18 Time of Encounter: 10:35 - Subjective Interval History: Patient was seen this morning, wants to go home. [facility] currently does not have a line for hemodialysis. Denies fevers, chills, sweats, nausea, vomiting, chest pain, shortness of breath, abdominal pain, changes in bowels or bladder, weakness, or rash. Reports wounds over hip, leg, and abdomen improving, mild tenderness. - Exam Vitals: Temp Pulse Resp BP Pulse Ox 97.8 F 58 18 136/79 100 04/12/18 07:28 04/12/18 07:28 04/12/18 07:28 04/12/18 07:28 04/12/18 07:28 Exam: General: Awake, alert, no acute distress, oriented x 3. HEENT: moist mucus membranes CV: RRR, no murmurs Lungs: CTAB, distant due to body habitus, no wheezes, rhonchi or rales Abdomen: soft, nontender, normal bowel sounds MSK: moves all extremities Skin: warm dry intact except: multiple healing wounds with clean dry intact dressings, on dialysis, No temp or dialysis cath of chest. Neuro: no focal deficits - Assessment and Plan (1) CLABSI (central line-associated bloodstream infection) Current Visit: Yes Status: Acute Assessment and Plan: Afberile, nontachycardic, non tachypneic, mildly elevated WBC at 12.0 on arrival. CLABSI confirmed with 2 cultures of dialysis cath. Cultures 04/07/18 positive for resistant Staph epidermidis. Cultures 04/09/18 gram positive cocci. mecA gene detected on PCR. Blood cultures drawn 04/11/18 ID on board, continue following recommendations. -Dialysis cath removed 04/10/18, has not had temp dialysis cath placed yet, plan possibly today -Continue with Vancomycin d4 (04/08/18), d2 after removal of line. Recommend total of 7 days after line removed. (2) Acute on chronic anemia Current Visit: Yes Status: Acute Assessment and Plan: Hb 9.5 this morning. Anemia of chronic disease Continue Aranesp did received 2 Units pRBC 04/10/18 -Continue to monitor CBC, goal Hb 10-11. (3) ESRD on hemodialysis Current Visit: Yes Status: Chronic Assessment and Plan: Nephrology on board. Continue T, R, S. Patient of Dr. Fenton. 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 (5) Nausea & vomiting Current Visit: Yes Status: Resolved Assessment and Plan: Resolved. May have been related to bacteremia. (6) Wounds, multiple Current Visit: Yes Status: Chronic Assessment and Plan: Secondary to calciphylaxis, continue per plan in assessment above with wound care management. (7) Weakness generalized Current Visit: Yes Status: Chronic Assessment and Plan: Improving, back at baseline per patient. Likely related to missed dialysis sessions and bacteremia and dehydration. (8) History of kidney transplant Current Visit: No Status: Chronic Assessment and Plan: history of kidney transplant. (9) Chronic steroid use Current Visit: Yes Status: Acute Assessment and Plan: Pt is on chronic prednisone 10mg po daily for many years, for "BP is low". Need stress dose steroid if in critical condition. (10) Afib Current Visit: No Status: Chronic Assessment and Plan: History of Afib, rate currently controlled. Eliquis is on hold now for HD catheter change (11) DVT prophylaxis Current Visit: No Status: Acute Assessment and Plan: Continue to hold Eliquis, has been held since 04/09/18 due to cath removal/ placement. -EPCDs DVT Prophylaxis: EPCDs - Time Spent with Patient Total time spent is greater than 50% in coordination of care (as documented) at patient's floor/unit and/or counseling patient: Internal Medicine: Result - Labs CBC & Chem 7: 04/12/18 05:53 04/12/18 05:53 Labs: Short CBC 04/12/18 Range/Units 05:53 WBC 8.3 (4.3-11.1) K/mcL Hgb 9.5 L (11.5-15.4) g/dL Hct 29.2 L (35.3-44.9) % Plt Count 110 L (140-400) K/mcL BMP 04/12/18 05:53 Sodium 130 L Potassium 5.0 Chloride 98 Carbon Dioxide 21 L BUN 25 H Creatinine 4.71 H Glucose 82 Calcium 8.5 L - ABG Interpretation ABG results: PT/INR, D-dimer PT 14.2 Seconds (9.4-12.1) H 04/07/18 10:43 - VTE Reasons for not Prescribing Prophylaxis: Not indicated-Anticoagulated or INR therapeutic Consult Discharge Plan - Plan Referrals: Peter Vicente DO [Primary Care Provider] - <Eric Long - Last Filed: 04/12/18 13:10> Hospitalist Progress Note - Encounter Date of Encounter: 04/12/18 - Exam Vitals: Temp Pulse Resp BP Pulse Ox 98.0 F 55 18 136/79 100 04/12/18 11:18 04/12/18 11:18 04/12/18 11:23 04/12/18 07:28 04/12/18 11:23 - Assessment and Plan (1) Anemia Current Visit: Yes Status: Chronic (2) ESRD (end stage renal disease) on dialysis Current Visit: Yes Status: Chronic (3) Sepsis Current Visit: Yes Status: Suspected (4) Nausea and vomiting Current Visit: Yes Status: Resolved (5) Wounds, multiple Current Visit: Yes Status: Chronic (6) Weakness generalized Current Visit: Yes Status: Chronic (7) CLABSI (central line-associated bloodstream infection) Current Visit: Yes Status: Acute (8) Chronic steroid use Current Visit: Yes Status: Acute (9) Afib Current Visit: No Status: Chronic - Time Spent with Patient Total time spent is greater than 50% in coordination of care (as documented) at patient's floor/unit and/or counseling patient: Internal Medicine: Result - Labs CBC & Chem 7: 04/12/18 05:53 04/12/18 05:53 Labs: Short CBC 04/12/18 Range/Units 05:53 WBC 8.3 (4.3-11.1) K/mcL Hgb 9.5 L (11.5-15.4) g/dL Hct 29.2 L (35.3-44.9) % Plt Count 110 L (140-400) K/mcL [facility] 04/12/18 05:53 Sodium 130 L Potassium 5.0 Chloride 98 Carbon Dioxide 21 L BUN 25 H Creatinine 4.71 H Glucose 82 Calcium 8.5 L - ABG Interpretation ABG results: PT/INR, D-dimer PT 14.2 Seconds (9.4-12.1) H 04/07/18 10:43 - Attending Attestation I have seen and examined this pt independently. I have discussed with resident physician Dr Motta regarding the management plan. Agree with the documentation. <Efrem Motta - Last Filed: 04/12/18 11:23> (1) CLABSI (central line-associated bloodstream infection) Qualifiers: Encounter type: subsequent encounter Qualified Code(s): T80.211D - Bloodstream infection due to central venous catheter, subsequent encounter (5) Nausea & vomiting Qualifiers: Vomiting type: unspecified Vomiting Intractability: unspecified Qualified Code(s): R11.2 - Nausea with vomiting, unspecified (10) Afib Qualifiers: Atrial fibrillation type: paroxysmal Qualified Code(s): I48.0 - Paroxysmal atrial fibrillation <Eric Long - Last Filed: 04/12/18 13:10> (1) Anemia Qualifiers: Anemia type: due to chronic kidney disease Chronic kidney disease stage: on chronic dialysis Qualified Code(s): N18.6 - End stage renal disease; D63.1 - Anemia in chronic kidney disease; Z99.2 - Dependence on renal dialysis (3) Sepsis Qualifiers: Sepsis type: sepsis due to unspecified organism Qualified Code(s): A41.9 - Sepsis, unspecified organism (4) Nausea and vomiting Qualifiers: Vomiting type: unspecified Vomiting Intractability: non-intractable Qualified Code(s): R11.2 - Nausea with vomiting, unspecified (7) CLABSI (central line-associated bloodstream infection) Qualifiers: Encounter type: subsequent encounter Qualified Code(s): T80.211D - Bloodstream infection due to central venous catheter, subsequent encounter (9) Afib Qualifiers: Atrial fibrillation type: paroxysmal Qualified Code(s): I48.0 - Paroxysmal atrial fibrillation
--- NOTE | 2018-04-12 10:52 | Infectious Disease Progress No ---
Date of Encounter: 04/12/18 Time of Encounter: 10:15 - Assessment and Plan (1) CLABSI (central line-associated bloodstream infection) Current Visit: Yes Status: Acute Causative organism: Unclear. Blood cultures obtained on the day of admission from her dialysis catheter +2 out of 2 sets for S. epi. Source: Likely the patient's permacath. Apparently, the patient's cuff was exposed on admission. Repeat blood cultures drawn 04/09/18 are positive 1/2 sets from the HD catheter. No endocarditis stigmata noted on exam. Status post HD catheter removal 04/10/18. Repeat blood cultures x 2 sets drawn 04/11/18 are pending. Continue vancomycin IV. Pharmacy to dose. Goal trough approximately 15. (day 2 post-catheter removal) Duration of treatment depends on the clinical picture, but likely 7 days post- catheter removal. Monitor for drug toxicity and dose-adjust antibiotics. Qualifiers: Encounter type: subsequent encounter Qualified Code(s): T80.211D - Bloodstream infection due to central venous catheter, subsequent encounter (2) Acute on chronic anemia Current Visit: Yes Status: Acute Hemoglobin improved to 9.5.. Management per the primary and nephrology teams. (3) Weakness generalized Current Visit: Yes Status: Chronic Likely secondary to bacteremia. Appears improved. (4) Nausea and vomiting Current Visit: Yes Status: Resolved Qualifiers: Vomiting type: unspecified Vomiting Intractability: non-intractable Qualified Code(s): R11.2 - Nausea with vomiting, unspecified (5) Calciphylaxis Current Visit: No Status: Chronic Continue sodium thiosulfate with hemodialysis. Management per the nephrology team. (6) ESRD (end stage renal disease) Current Visit: No Status: Chronic Nephrology consult and following ptosis with HD management. - Subjective Interval history: Patient seen and examined. No acute events noted overnight. Patient states overall she feels better today. Denies pain at this time. Denies any fevers or chills or rigors. Denies chest pain, shortness of breath, or cough. Denies nausea, vomiting, diarrhea, or constipation. Reports last bowel movement was three days ago. She has anuria secondary to her end-stage renal disease. She reports that her appetite is good. She is currently NPO for HD catheter placement later today. She denies any oral thrush or any skin lesions. Infect Dis PN-Objective Data - Labs CBC & Chem 7: 04/12/18 05:53 04/12/18 05:53 Labs: Laboratory Results - last 24 hr 04/09/18 04/10/18 04/11/18 10:32 21:27 12:06 WBC RBC Hgb Hct MCV MCH MCHC RDW Plt Count MPV Sodium Potassium Chloride Carbon Dioxide BUN Creatinine Est GFR ( Amer) Est GFR (Non-Af Amer) BUN/Creatinine Ratio Glucose POC Glucose 132 H 101 H Calculated Osmolality Calcium Random Vancomycin A. baumannii (PCR) Not Detected Whitney albicans (PCR) Not Detected C. glabrata (PCR) Not Detected C. krusei (PCR) Not Detected C. parapsilosis (PCR) Not Detected C. tropicalis (PCR) Not Detected Enterobacteriac sp PCR Not Detected E. cloacae complex PCR Not Detected Enterococcus sp PCR Not Detected E. coli (PCR) Not Detected H. influenzae (PCR) Not Detected Klebsiella oxytoca PCR Not Detected Klebsiella pneumoniae Not Detected List. monocytogenes PCR Not Detected N. meningitidis (PCR) Not Detected Proteus species (PCR) Not Detected Serratia marcescens PCR Not Detected Staphylococcus sp PCR DETECTED A Staph aureus (PCR) Not Detected mecA-Methicil Res Gene DETECTED A Streptococcus sp PCR Not Detected Group A Strep DNA Not Detected Group B Strep (PCR) Not Detected Strep pneumoniae (PCR) Not Detected P. aeruginosa (PCR) Not Detected Augie/B-Vanco Res Genes Not Detected KPC (blaKPC) Detect PCR Not Detected 04/11/18 04/12/18 04/12/18 17:11 05:53 05:53 WBC 8.3 RBC 3.12 L Hgb 9.5 L Hct 29.2 L MCV 93.6 MCH 30.4 MCHC 32.5 RDW 15.3 H Plt Count 110 L MPV 10.4 Sodium 130 L Potassium 5.0 Chloride 98 Carbon Dioxide 21 L BUN 25 H Creatinine 4.71 H Est GFR ( Amer) 12 L Est GFR (Non-Af Amer) 10 L BUN/Creatinine Ratio 5 L Glucose 82 POC Glucose 206 H Calculated Osmolality 273 L Calcium 8.5 L Random Vancomycin A. baumannii (PCR) Whitney albicans (PCR) C. glabrata (PCR) C. krusei (PCR) C. parapsilosis (PCR) C. tropicalis (PCR) Enterobacteriac sp PCR E. cloacae complex PCR Enterococcus sp PCR E. coli (PCR) H. influenzae (PCR) Klebsiella oxytoca PCR Klebsiella pneumoniae List. monocytogenes PCR N. meningitidis (PCR) Proteus species (PCR) Serratia marcescens PCR Staphylococcus sp PCR Staph aureus (PCR) mecA-Methicil Res Gene Streptococcus sp PCR Group A Strep DNA Group B Strep (PCR) Strep pneumoniae (PCR) P. aeruginosa (PCR) Augie/B-Vanco Res Genes KPC (blaKPC) Detect PCR 04/12/18 05:53 WBC RBC Hgb Hct MCV MCH MCHC RDW Plt Count MPV Sodium Potassium Chloride Carbon Dioxide BUN Creatinine Est GFR ( Amer) Est GFR (Non-Af Amer) BUN/Creatinine Ratio Glucose POC Glucose Calculated Osmolality Calcium Random Vancomycin 20 A. baumannii (PCR) Whitney albicans (PCR) C. glabrata (PCR) C. krusei (PCR) C. parapsilosis (PCR) C. tropicalis (PCR) Enterobacteriac sp PCR E. cloacae complex PCR Enterococcus sp PCR E. coli (PCR) H. influenzae (PCR) Klebsiella oxytoca PCR Klebsiella pneumoniae List. monocytogenes PCR N. meningitidis (PCR) Proteus species (PCR) Serratia marcescens PCR Staphylococcus sp PCR Staph aureus (PCR) mecA-Methicil Res Gene Streptococcus sp PCR Group A Strep DNA Group B Strep (PCR) Strep pneumoniae (PCR) P. aeruginosa (PCR) Augie/B-Vanco Res Genes KPC (blaKPC) Detect PCR Cultures: Cultures 04/09/18 10:32 Blood Culture - Preliminary Central Venous Catheter Gram Positive Cocci Gram Positive Cocci#2 04/09/18 05:17 Blood Culture - Preliminary Peripheral Venipuncture Culture is incubating and being continuously monitored for growth. Final report to follow. 04/11/18 09:05 Blood Culture - Preliminary Peripheral Venipuncture Culture is incubating and being continuously monitored for growth. Final report to follow. 04/11/18 09:05 Blood Culture - Preliminary Peripheral Venipuncture Culture is incubating and being continuously monitored for growth. Final report to follow. Serology 04/09/18 Range/Units 10:32 A. baumannii (PCR) Not Detected (Not Detect) Whitney albicans (PCR) Not Detected (Not Detect) C. glabrata (PCR) Not Detected (Not Detect) C. krusei (PCR) Not Detected (Not Detect) C. parapsilosis (PCR) Not Detected (Not Detect) C. tropicalis (PCR) Not Detected (Not Detect) Enterobacteriac sp PCR Not Detected (Not Detect) E. cloacae complex PCR Not Detected (Not Detect) Enterococcus sp PCR Not Detected (Not Detect) E. coli (PCR) Not Detected (Not Detect) H. influenzae (PCR) Not Detected (Not Detect) Klebsiella oxytoca PCR Not Detected (Not Detect) Klebsiella pneumoniae Not Detected (Not Detect) List. monocytogenes PCR Not Detected (Not Detect) N. meningitidis (PCR) Not Detected (Not Detect) Proteus species (PCR) Not Detected (Not Detect) Serratia marcescens PCR Not Detected (Not Detect) Staphylococcus sp PCR DETECTED A (Not Detect) Staph aureus (PCR) Not Detected (Not Detect) mecA-Methicil Res Gene DETECTED A (Not Detect) Streptococcus sp PCR Not Detected (Not Detect) Group A Strep DNA Not Detected (Not Detect) Group B Strep (PCR) Not Detected (Not Detect) Strep pneumoniae (PCR) Not Detected (Not Detect) P. aeruginosa (PCR) Not Detected (Not Detect) Augie/B-Vanco Res Genes Not Detected (Not Detect) KPC (blaKPC) Detect PCR Not Detected (Not Detect) Exam - Constitutional Vitals: Temp Pulse Resp BP Pulse Ox 97.8 F 58 18 136/79 100 04/12/18 07:28 04/12/18 07:28 04/12/18 07:28 04/12/18 07:28 04/12/18 07:28 General appearance: cooperative, no acute distress, obese - Head Head exam: Present: atraumatic, normal inspection, normocephalic - Eye Eye exam: Present: EOMI, normal appearance, PERRL Pupils: Present: normal accommodation - ENT ENT exam: Present: mucous membranes moist - Neck Neck exam: Present: normal inspection - Respiratory Respiratory exam: Present: CTAB. Absent: rales, respiratory distress, rhonchi, wheezes - Cardiovascular Cardiovascular exam: Present: RRR, +S1, +S2 - GI/Abdominal GI/Abdominal exam: Present: distended (obese), normal bowel sounds, soft. Absent: tenderness Additional comments: Abdominal dressing noted to be C/D/I. - Extremities Exam Extremities exam: Absent: joint swelling, normal inspection (Dressings noted to the bilateral thighs are C/D/I.), pedal edema, tenderness - Neurological Exam Neurological exam: Present: alert, oriented X3, no focal deficits - Psychiatric Psychiatric exam: Present: normal affect, normal mood - Skin Skin exam: Present: dry, intact, normal color, warm - VTE Reasons for not Prescribing Prophylaxis: Not indicated-Anticoagulated or INR therapeutic Consult Discharge Plan - Plan Referrals: Peter Vicente DO [Primary Care Provider] -
--- NOTE | 2018-04-12 11:11 | Nephrology Progress Note ---
Date of Encounter: 04/12/18 Time of Encounter: 11:08 - Assessment and Plan (1) ESRD (end stage renal disease) on dialysis Current Visit: Yes Status: Chronic Current regimen is TTS at [facility]. ID recommend placing Tunneled since organism is S. Epi. IR will place Tunneled Line today. Avoid nephrotoxins, renal dose all medications. (2) Calciphylaxis Current Visit: No Status: Chronic Continue Sodium Thiosulfate. (3) Anemia in chronic kidney disease (CKD) Current Visit: No Status: Chronic Goal Hgb is 10-11. Hgb is 9.5, stable. Qualifiers: Chronic kidney disease stage: on chronic dialysis Qualified Code(s): N18.6 - End stage renal disease; D63.1 - Anemia in chronic kidney disease; Z99.2 - Dependence on renal dialysis (4) Noncompliance with renal dialysis Current Visit: Yes Status: Chronic Pt has missed several treatments in the past. I had counseled her to focus on improving compliance. (5) Hypertension Current Visit: No Status: Chronic Stable, BP is 136/79 Qualifiers: Hypertension type: essential hypertension Qualified Code(s): I10 - Essential (primary) hypertension (6) Nausea and vomiting Current Visit: Yes Status: Resolved Suportive care, unsure of etiology. Qualifiers: Vomiting type: unspecified Vomiting Intractability: non-intractable Qualified Code(s): R11.2 - Nausea with vomiting, unspecified Subjective Principal diagnosis: ESRD Interval history: Pt seen and examined. No complaints. She wants to go home. Objective - Vital Signs Vital signs: Vital Signs Temp Pulse Resp BP Pulse Ox 04/12/18 07:28 97.8 F 58 18 136/79 100 04/12/18 04:23 98.0 F 54 16 153/88 93 04/11/18 23:44 98.1 F 64 16 155/90 100 04/11/18 21:30 100 04/11/18 20:21 14 98 04/11/18 19:37 99.0 F 64 16 151/88 100 04/11/18 17:13 98.7 F 63 18 144/90 100 04/11/18 12:09 98.0 F 65 16 161/87 97 Intake and Output 04/11/18 04/12/18 04/12/18 23:59 07:59 15:59 Intake Total 240 / 240 Balance 240 / 240 Intake: Oral 240 / 240 Other: Meal Dinner Percent of Meal Consumed 100% Weight 82 kg Blood Glucose* 213 92 - General Appearance General appearance: Present: well-developed, well-nourished EENT: Present: ATNC, hearing intact, vision intact Neck: Present: supple Respiratory: Present: clear Cardiology: Present: no edema, normal S1, normal S2 Gastrointestinal: Present: normoactive bowel sounds, no tenderness, no guarding Integumentary: Present: no rash, warm and dry Neurologic: Present: alert and oriented x3 Psychiatric: Present: mood/affect appropriate, cooperative - Lab 04/12/18 05:53 04/12/18 05:53 Most recent lab results Calcium 8.5 mg/dL (8.6-10.3) L 04/12/18 05:53 Phosphorus 4.1 mg/dL (2.7-4.5) 04/07/18 08:53 Magnesium 1.6 mg/dL (1.6-2.6) 04/08/18 04:53 - VTE Reasons for not Prescribing Prophylaxis: Not indicated-Anticoagulated or INR therapeutic Consult Discharge Plan - Plan Referrals: Peter Vicente DO [Primary Care Provider] -
[2018-04-12] MEDS: Budesonide/Formoterol 160/4.5 1 PUFF INH IH SCH ×2 (11:22→19:58)
[2018-04-12] MEDS ORDERED: Heparin 1,000 UNITS/500 mL 500 ML ONE (12:45)
[2018-04-12] MEDS ORDERED: *HR* FentaNYL (PF) 100 MCG/2 ML VIAL IVP ONE (13:13)
[2018-04-12] MEDS ORDERED: *HR* Midazolam HCl 2 MG/2 ML VIAL IVP ONE (13:13)
[2018-04-12] MEDS ORDERED: ceFAZolin 2,000 MG in D5% in Water 100 ML IVPB ONE (13:14)
[2018-04-12] MEDS ORDERED: 0.9 % Sodium Chloride 500 ML ONE ×2 (13:25→13:52)
--- NOTE | 2018-04-12 13:58 | Pre-Sedation Evaluation ---
Pre-sedation evaluation - Pre-sedation checklist Date of procedure: 04/12/18 Procedure: permacath Recent Vitals: Last Vital Signs Temp 98.0 F 04/12/18 11:18 Pulse 61 04/12/18 13:48 Resp 25 04/12/18 13:48 BP 145/88 04/12/18 13:48 Pulse Ox 100 04/12/18 13:48 H&P (including ROS) documented in medical record: Yes Previous reaction to sedatives/anesthetics: No Dietary Status: NPO after Midnight Dentition: No loose teeth or bridges Possible difficult airway: No ASA Classification *see protocol: CLASS II-Mild systemic disease Plan of Care: Pt appropriate candidate for procedure/moderate/conscious sedation , Risks/benefits of procedure/sedation discussed w/ patient/family, If not NPO; Risk of intake outweiged by necessity to perform procedure Cardiac Registry (Cardio Only) - Functional Capacity - Clincal Frailty Scale Clinical Frailty Scale: Managing Well
--- NOTE | 2018-04-12 13:59 | IR Procedure Note ---
Date of procedure: 04/12/18 Consent Obtained: Written consent Timeout: Correct patient and procedure verified, Correct site verified, Time out performed, Skin prep completed Indications: renal failure Procedure Performed: permacath Was there an emergency room physician assistant present: No Site/Technique: left IJ to RA Results/Findings: adequate placement Estimated blood loss (cc): 2 Complications: None; Tolerated procedure well Post Procedure Treatment Plan: dc to floor Specimen: none
[2018-04-12] MEDS ORDERED: Sodium Thiosulfate 25 GM in EMPTY BAG 1 EACH IVPB SCH (14:00)
[2018-04-12] MEDS ORDERED: CeFAZolin Premix DUPLEX 2,000 MG/50 ML BAG IVPB ONE (14:00)
[2018-04-12] MEDS ORDERED: Vancomycin 500 MG in 0.9 % Sodium Chloride Mini Bag 100 ML IVPB ONE (16:00)
[2018-04-12 18:11] VITALS: BP 129/73
--- NOTE | 2018-04-12 20:45 | Event Note ---
Date of Encounter: 04/12/18 Time of Encounter: 20:05 Alerted by pts. nurse CYNDI Duvall that pt. was wanting to leave AMA after current vancomycin infusion was completed. Went to see pt. who was resting in bed. I inquired why she was wanting to leave. Pt. stated that her boyfriend was here to take her home and she was tired of being in the hospital. I explained to the patient that she had several serious problems that we were currently dealing with: a central line blood infection that was requiring IV vancomycin and she was only on her 5th of 7 days of treatment, a Permacath placement that was just completed today, a Hgb level of 9.5 today for which she required two units of PRBCs d/t Hgb being 6.3 on 04/10, and a sodium level of 130. I explained to the patient that she could become septic d/t her current blood infection and . I also explained to the patient that her hyponatremia could result in cardiac arrhythmias or arrest if her levels continued to fall. As well, I explained to the patient that she was just dialyzed today after not being dialyzed on schedule and could experience adverse effects as a result. I then asked the patient if she fully understood what I was telling her. She said she understood. The patient explained that she had told by several people that she could if she left AMA and she didn't care because she wanted to go home. I again explained the risks and possibility of d/t leaving AMA. I asked the patient if she understood what I was telling her and she again confirmed that she understood fully. I asked if there was anything that would change her mind and she said no. The patient's nurse was present as a witness during our conversation. I asked the nurse to prepare the patient's AMA paperwork.
[2018-04-12] MEDS ORDERED: Aminoglycoside Consult 1 EACH MC ONE (20:51)
== END 2018-04-12 20:52 | disposition left against medical advice (07) | DRG 721 ==
LOC: EMEROOARM 08:44 → 2ANU 08:44 → SUATTDRO 12:34 → 2ANU 13:23 → SUATTDRO 04-08 19:01 → 2ANU 04-08 23:54
PROVIDERS: ADMIT Internal Medicine; ATTEND Internal Medicine
PROC: IRPERMA (2018-04-12 08:00)

== ENCOUNTER 2018-04-21 11:01 | Inpatient (IN) ==
--- NOTE | 2018-04-21 11:30 | Emergency Department Note ---
Disposition Clinical Impression: ESRD (end stage renal disease), ESRD on hemodialysis, Wound infection Cellulitis Qualifiers: Site of cellulitis: unspecified site Qualified Code(s): L03.90 - Cellulitis, unspecified Nausea & vomiting Qualifiers: Vomiting type: unspecified Vomiting Intractability: non-intractable Qualified Code(s): R11.2 - Nausea with vomiting, unspecified Disposition: Admitted As Inpatient Condition: Good Referrals: Peter Vicente DO [Primary Care Provider] - Time of Disposition: 16:14 General Adult HPI - General Chief complaint: ED Nausea/Vomiting/Diarrhea Stated complaint: Vomiting Time Seen by Provider: 04/21/18 11:09 Mode of arrival: EMS Nursing Notes Reviewed: Yes Vital Signs Reviewed: Yes - History of Present Illness HPI Narrative: 43 year old woman arrives to the ED by ambulance with a complaint of non bloody vomiting for the past 4 days. The patient is malodorous and appears unkept. Her symptoms have caused her to miss her hemodialysis apointment, last dialyzed on Monday which means she missed [address] Fenton for nephrology. She had a kidney transplant in 2007. She has subjective fever chills, no diarrhea, sob, confusion, dizzyness. She has a history of IDDM, and Afib and last used insulin 4 days ago. 4 months ago she experienced warfarin skin necrosis and was switched to apixaban. She has extensive wounds on her thighs, belly, nipples, and is non ambulatory due to wound pain. She states that she has seen a fabrication specialist one time and occasionally her provides wound care. She is not able to provide any further details about her medical history, medications, or wound care because she does not know the words. Pt Subjective Complaint: pain over wounds and vomiting Onset (ago): day(s) (4) Improves with: nothing Worsens with: movement Associated symptoms: Reports: fever/chills, nausea/vomiting - Related Data Home Medications Medication Instructions Recorded Confirmed Albuterol Sulfate [Albuterol 2 puff IH Q4H PRN 09/09/16 04/21/18 Inhaler] Amiodarone [Cordarone] 200 mg PO DAILY 09/09/16 04/21/18 Atorvastatin [Lipitor] 40 mg PO HS 09/09/16 04/07/18 Budesonide/Formoterol 160/4.5 2 puff IH BIDR 09/09/16 04/21/18 [Symbicort 160/4.5] Levothyroxine Sodium [Synthroid] 200 mcg PO QAM 09/09/16 04/21/18 Omeprazole [PriLOSEC] 20 mg PO DAILY 09/09/16 04/21/18 hydrALAZINE [HydrALAZINE] 50 mg PO BID 09/09/16 04/21/18 Montelukast [Singulair] 10 mg PO DAILY 02/16/17 04/21/18 Folic Acid 1 mg PO DAILY 01/07/18 04/21/18 Metoprolol Succinate [Toprol Xl] 25 mg PO DAILY 01/07/18 04/21/18 Acetaminophen [Tylenol] 1,000 mg PO Q6HR PRN 04/21/18 04/21/18 cloNIDine HCl [CloNIDine HCl] 0.1 mg PO TID 04/21/18 04/21/18 Previous Rx's Medication Instructions Recorded Apixaban [Eliquis] 5 mg PO BID #60 tablet 01/18/18 Collagenase Oint [Santyl] 1 appl TP HS tube 02/16/18 Darbepoetin [Aranesp] 60 mcg SQ QWEEK syringe 02/16/18 Cinacalcet [Sensipar] 30 mg PO DAILY 30 Days #30 tablet 03/22/18 predniSONE [PredniSONE] 10 mg PO DAILY tablet 03/22/18 Ondansetron ODT [Zofran ODT] 4 mg SL Q8HR PRN #12 tab.rapdis 04/05/18 Allergies Allergy/AdvReac Type Severity Reaction Status Date / Time heparin Allergy Severe Unresponsiv Verified 04/21/18 13:20 e Warfarin [From Coumadin] Allergy Anaphylaxis Verified 04/21/18 11:18 All systems ED: reviewed and negative except as stated. Review of Systems: As Per HPI Constitutional: Reports: as per HPI, fever (Subjective ) Cardiovascular: Reports: as per HPI Gastrointestinal: Reports: nausea, vomiting Integumentary: Reports: other (Multiple nonhealing wounds to her bilateral legs as well as her left middle finger.). Denies: rash Neurological: Reports: weakness Past Medical History - Past Medical History Attestation: Yes The following information was validated with the patient. 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 Absent: respiratory distress, accessory muscle use - Cardiovascular Cardiovascular exam: Present: regular rate, normal rhythm, normal heart sounds - Abdominal Exam Abdominal exam: Present: soft, tenderness (over wounds), normal bowel sounds - Extremities Exam Extremities exam: Present: normal inspection, tenderness (over wound) - Expanded Upper Extremity Exam Shoulder exam: Present: normal inspection Arm exam: Present: normal inspection Elbow exam: Present: normal inspection Forearm/Wrist exam: Present: normal inspection Hand exam: Present: ecchymosis (necrotic R middle tip distal to MCP) Hand L/R front image: 1 - other (necrosis) - Expanded Lower Extremity Exam Upper leg exam: Present: ecchymosis, other (Nonhealing wounds bilaterally.) - Back Exam Back exam: Present: other (Decubitus ulcer to buttocks.) - Neurological Exam Neurological exam: Present: alert, oriented X3 - Psychiatric Psychiatric exam: Present: normal affect, normal mood - Skin Skin exam: Present: warm, dry, intact, normal color - Expanded Skin Exam 1 - extensive open wound, purulent discharge 2 - extensive open wound, purulent discharge 3 - extensive open wound, purulent discharge 4 - extensive open wound, purulent discharge 5 - Purulent echymosis 6 - Ecymosis over areola 7 - echmosis over areola Course Course Narrative: Female patient appears unkempt. Has multiple nonhealing wounds to her upper legs bilaterally. CT of these did not show extension to the bone. However they have a purulent discharge. The dressings that were over them were dirty. Appears to have been on there for several days. She did not have routine wound care. She states that her significant other changes these for her. Patient is a dialysis patient. She reports nausea and vomiting. She has been seen here several times for this. Patient has necrosis to her nipples bilaterally as well as her middle finger on her left hand. We did place patient on vancomycin and cefepime. We have a. She does have a mild leukocytosis. Denying any shortness of breath or chest pain. Does have pain to the wound area. We will admit patient to the hospital for her extensive skin infections. - Reevaluation(s) Reevaluation #1: Patient glucose is 48. We will provide patient with food at this time. Patient was able to eat and a recheck of her glucose was in the 300s. Time: 13:56 - Consultations Consultation #1: The hospitalist accepted patient in stable condition. Time: 14:41 Vital Signs O2 Sat by Pulse Oximetry 100 04/21/18 11:19 Temperature 97.7 F 04/21/18 11:27 Pulse Rate 93 04/21/18 12:30 Respiratory Rate 20 04/21/18 15:18 Blood Pressure 152/67 04/21/18 15:18 O2 Sat by Pulse Oximetry 95 04/21/18 12:30 Oxygen Delivery Oxygen Delivery Room Air Medical Decision Making - Medical Records Medical records reviewed: Yes I reviewed the patient's medical records. - Lab Data Lab results reviewed: Yes I reviewed the patient's lab results. Result diagrams: 04/21/18 12:53 04/21/18 12:53 Lab Results 04/21/18 04/21/18 04/21/18 Range/Units 12:53 12:53 12:53 WBC 14.0 H (4.3-11.1) K/mcL RBC 3.80 L (3.82-4.97) M/mcL Hgb 11.5 (11.5-15.4) g/dL Hct 34.6 L (35.3-44.9) % MCV 91.1 (83.0-100.0) fL MCH 30.3 (28.0-33.3) pg MCHC 33.2 (31.6-35.5) g/dL RDW 16.1 H (11.5-14.5) % Plt Count 169 (140-400) K/mcL MPV 9.4 (9.4-12.4) fL Immature Gran % 0.9 (0-4) % Seg Neutrophils % 78.3 % Lymphocytes % 8.0 % Monocytes % 10.0 % Eosinophils % 2.4 % Basophils % 0.4 % Neutrophils # 11.0 H (1.6-8.9) K/mcL Lymphocytes # 1.1 (0.6-4.6) K/mcL Monocytes # 1.4 H (0.0-1.3) K/mcL Eosinophils # 0.3 (0.0-0.6) K/mcL Basophils # 0.1 (0.0-0.2) K/mcL PT (9.4-12.1) Seconds INR APTT (26.0-36.0) Seconds Sodium 134 L (136-145) mEq/L Potassium 3.8 (3.5-5.1) mEq/L Chloride 94 L (98-107) mEq/L Carbon Dioxide 18 L (23-29) mEq/L BUN 24 H (6-20) mg/dL Creatinine 6.99 H (0.60-1.20) mg/dL Est GFR ( Amer) 8 L (> 60) Est GFR (Non-Af Amer) 6 L (> 60) BUN/Creatinine Ratio 3 L (6-26) Glucose 48 L (70-105) mg/dL POC Glucose (70-99) mg/dL Calculated Osmolality 279 L (280-300) Lactic Acid 1.5 (0.5-2.2) mmol/L Calcium 7.6 L (8.6-10.3) mg/dL Phosphorus (2.7-4.5) mg/dL Magnesium (1.6-2.6) mg/dL Total Bilirubin 0.5 (0.3-1.0) mg/dL AST 10 L (13-39) Units/L ALT 3 L (7-52) Units/L Alkaline Phosphatase 242 H (34-104) Units/L Serum Total Protein 5.8 L (6.4-8.9) g/dL Albumin 2.3 L (3.5-5.7) g/dL Globulin 3.5 (2.4-3.5) g/dL Albumin/Globulin Ratio 0.7 L (1.1-2.2) 04/21/18 04/21/18 04/21/18 Range/Units 12:53 12:53 14:00 WBC (4.3-11.1) K/mcL RBC (3.82-4.97) M/mcL Hgb (11.5-15.4) g/dL Hct (35.3-44.9) % MCV (83.0-100.0) fL MCH (28.0-33.3) pg MCHC (31.6-35.5) g/dL RDW (11.5-14.5) % Plt Count (140-400) K/mcL MPV (9.4-12.4) fL Immature Gran % (0-4) % Seg Neutrophils % % Lymphocytes % % Monocytes % % Eosinophils % % Basophils % % Neutrophils # (1.6-8.9) K/mcL Lymphocytes # (0.6-4.6) K/mcL Monocytes # (0.0-1.3) K/mcL Eosinophils # (0.0-0.6) K/mcL Basophils # (0.0-0.2) K/mcL PT 14.4 H (9.4-12.1) Seconds INR 1.3 APTT 33.7 (26.0-36.0) Seconds Sodium (136-145) mEq/L Potassium (3.5-5.1) mEq/L Chloride (98-107) mEq/L Carbon Dioxide (23-29) mEq/L BUN (6-20) mg/dL Creatinine (0.60-1.20) mg/dL Est GFR ( Amer) (> 60) Est GFR (Non-Af Amer) (> 60) BUN/Creatinine Ratio (6-26) Glucose (70-105) mg/dL POC Glucose 50 L (70-99) mg/dL Calculated Osmolality (280-300) Lactic Acid (0.5-2.2) mmol/L Calcium (8.6-10.3) mg/dL Phosphorus 4.4 (2.7-4.5) mg/dL Magnesium 1.5 L (1.6-2.6) mg/dL Total Bilirubin (0.3-1.0) mg/dL AST (13-39) Units/L ALT (7-52) Units/L Alkaline Phosphatase (34-104) Units/L Serum Total Protein (6.4-8.9) g/dL Albumin (3.5-5.7) g/dL Globulin (2.4-3.5) g/dL Albumin/Globulin Ratio (1.1-2.2) 04/21/18 Range/Units 15:02 WBC (4.3-11.1) K/mcL RBC (3.82-4.97) M/mcL Hgb (11.5-15.4) g/dL Hct (35.3-44.9) % MCV (83.0-100.0) fL MCH (28.0-33.3) pg MCHC (31.6-35.5) g/dL RDW (11.5-14.5) % Plt Count (140-400) K/mcL MPV (9.4-12.4) fL Immature Gran % (0-4) % Seg Neutrophils % % Lymphocytes % % Monocytes % % Eosinophils % % Basophils % % Neutrophils # (1.6-8.9) K/mcL Lymphocytes # (0.6-4.6) K/mcL Monocytes # (0.0-1.3) K/mcL Eosinophils # (0.0-0.6) K/mcL Basophils # (0.0-0.2) K/mcL PT (9.4-12.1) Seconds INR APTT (26.0-36.0) Seconds Sodium (136-145) mEq/L Potassium (3.5-5.1) mEq/L Chloride (98-107) mEq/L Carbon Dioxide (23-29) mEq/L BUN (6-20) mg/dL Creatinine (0.60-1.20) mg/dL Est GFR ( Amer) (> 60) Est GFR (Non-Af Amer) (> 60) BUN/Creatinine Ratio (6-26) Glucose (70-105) mg/dL POC Glucose 60 L (70-99) mg/dL Calculated Osmolality (280-300) Lactic Acid (0.5-2.2) mmol/L Calcium (8.6-10.3) mg/dL Phosphorus (2.7-4.5) mg/dL Magnesium (1.6-2.6) mg/dL Total Bilirubin (0.3-1.0) mg/dL AST (13-39) Units/L ALT (7-52) Units/L Alkaline Phosphatase (34-104) Units/L Serum Total Protein (6.4-8.9) g/dL Albumin (3.5-5.7) g/dL Globulin (2.4-3.5) g/dL Albumin/Globulin Ratio (1.1-2.2) - Radiology Data Radiology results reviewed: Yes I reviewed the patient's radiology results. Abdomen/Pelvis CT 04/21/18 12:07 IMPRESSION: Areas of abdominal wall ulceration and scattered body wall edema. No discrete rim enhancing collection to suggest an abdominal wall abscess. Scattered small volume ascites, increased from February. Questionable peritoneal enhancement. Correlate for peritonitis. Marked wall thickening of the stomach with extensive submucosal edema, new from February. Wall thickening and edema involving the colon appears mildly progressed. Correlate for gastritis/colitis. There is mild intermittent small bowel wall thickening as well. D/ / Celestino Ugalde MD / Celestino Ugalde MD Interpreting Provider: Celestino Ugalde MD Chest CT 04/21/18 12:07 IMPRESSION: Small bilateral pleural effusions and trace pericardial effusion. Atelectasis is noted dependently in the lower lobes. Superimposed pneumonia is considered as less likely. Interstitial centrilobular nodules in the upper lobes, greater on the right. This is much nonspecific and may be secondary to fibrosis, pneumoconiosis or small airway infection. D/ / Byron Sharp MD / Byron Sharp MD Interpreting Provider: Byron Sharp MD Lower Extremity CT 04/21/18 12:07 IMPRESSION: Bilateral subcutaneous edema and skin ulceration. No focal drainable fluid collection. D/ /21/2018 14:49:37 Carlos Donahue MD / Sharon Grimm Interpreting Provider: Carlos Donahue MD - EKG Data EKG #1 EKG attestation: Yes I reviewed and interpreted this EKG. EKG results narrative: Normal sinus rhythm at a rate of 93. ID interval is 184. QRS duration is 85. QT is 43. QTC is 502. No signs of acute ischemia. There is baseline artifact. No hyperacute T waves noted. The no previous EKG to compare to.
[2018-04-21] MEDS ORDERED: 0.9 % Sodium Chloride 250 ML IVC ONE (11:49)
[2018-04-21] MEDS ORDERED: Promethazine 25 MG in 0.9 % Sodium Chloride 50 ML IVPB ONE (11:49)
[2018-04-21] MEDS ORDERED: *HR* FentaNYL (PF) 100 MCG/2 ML VIAL IVP ONE (11:49)
--- NOTE | 2018-04-21 11:55 | Emergency Department Note ---
Disposition Clinical Impression: ESRD (end stage renal disease) Disposition: Admitted As Inpatient Forms: ED Satisfaction Letter General Adult HPI - General Chief complaint: ED Nausea/Vomiting/Diarrhea Stated complaint: Vomiting Time Seen by Provider: 04/21/18 11:09 Source: patient, EMS Limitations: no limitations - History of Present Illness HPI Narrative: Attestation note: Patient was seen with the emergency medicine resident/nurse practitioner/ physician oral surgery assistant/transitional resident/medical student: Dr. Melinda Glasgow I have personally performed a face to face evaluation on this patient. I have reviewed and agree with history and physical examination patient management and disposition. Briefly the salient points of the case are as follows: 43-year-old female dialysis dependent diabetic insulin. 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 3 times a week dialysis usually Monday and Monday her last dialysis was Monday because she has been sick with chills and weakness. Patient has a very poor appetite and been vomiting. She says when she gets like this is because she has a "blood infection". She has had sepsis last hospital visit. Patient is tachycardic and tachypneic. She is ill but nontoxic slightly dry oral mucosa. Plan is to be gentle IV fluid rehydration was started with 250 mL cc saline bolus of saline 25 mg IV push Phenergan 100 g IV push fentanyl screening labs and checking on her leg wounds for tissue necrosis. Providing 45 minutes critical care service for this patient. Admission anticipated, disposition pending Pain Scale: 8 - Related Data Home Medications Medication Instructions Recorded Confirmed Albuterol Sulfate [Albuterol 2 puff IH Q4H PRN 09/09/16 04/07/18 Inhaler] Amiodarone [Cordarone] 200 mg PO DAILY 09/09/16 04/07/18 Atorvastatin [Lipitor] 40 mg PO HS 09/09/16 04/07/18 Budesonide/Formoterol 160/4.5 2 puff IH BIDR 09/09/16 04/07/18 [Symbicort 160/4.5] Ipratropium/Albuterol Neb [Duoneb] 3 ml IH QID PRN 09/09/16 04/07/18 Levothyroxine Sodium [Synthroid] 200 mcg PO QAM 09/09/16 04/07/18 Omeprazole [PriLOSEC] 20 mg PO DAILY 09/09/16 04/07/18 cloNIDine HCl [Clonidine HCl] 0.3 mg PO TID 09/09/16 04/07/18 hydrALAZINE [HydrALAZINE] 50 mg PO BID 09/09/16 04/07/18 Acetaminophen [Acetaminophen ER] 650 mg PO Q4H PRN 12/23/16 04/07/18 Montelukast [Singulair] 10 mg PO DAILY 02/16/17 04/07/18 Amlodipine Besylate 5 mg PO BID 01/07/18 04/07/18 Folic Acid 1 mg PO DAILY 01/07/18 04/07/18 Metoprolol Succinate [Toprol Xl] 25 mg PO DAILY 01/07/18 04/07/18 Previous Rx's Medication Instructions Recorded Apixaban [Eliquis] 5 mg PO BID #60 tablet 01/18/18 Collagenase Oint [Santyl] 1 appl TP HS tube 02/16/18 Darbepoetin [Aranesp] 60 mcg SQ QWEEK syringe 02/16/18 Cinacalcet [Sensipar] 30 mg PO DAILY 30 Days #30 tablet 03/22/18 predniSONE [PredniSONE] 10 mg PO DAILY tablet 03/22/18 Ondansetron ODT [Zofran ODT] 4 mg SL Q8HR PRN #12 tab.rapdis 04/05/18 Allergies Allergy/AdvReac Type Severity Reaction Status Date / Time heparin Allergy See Verified 04/21/18 11:18 Comments Warfarin [From Coumadin] Allergy Anaphylaxis Verified 04/21/18 11:18 Past Medical History - Past Medical History Medical history: Reports: asthma, atrial fibrillation, diabetes, dialysis, GI bleed, hyperlipidemia, hypertension, renal disease, thyroid disease Surgical history: Reports: appendectomy, cholecystectomy, thyroidectomy, transplant, other Psychiatric history: Reports: 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
[2018-04-21] MEDS ORDERED: Isovue-370 500 ML INFUS..BTL IV ONE (12:07)
[2018-04-21] MEDS ORDERED: Cefepime HCl 2,000 MG in Water for inj. (sterile) 20 ML 20 ML IVP ONE (12:10)
[2018-04-21] MEDS ORDERED: *HR* Promethazine 25 MG/ML VIAL ONE (12:11)
[2018-04-21 13:11] LABS: Basophils # 0.1 K/mcL (0.0-0.2); Basophils % 0.4 %; Eosinophils # 0.3 K/mcL (0.0-0.6); Eosinophils % 2.4 %; Hematocrit 34.6 % (35.3-44.9); Hemoglobin 11.5 g/dL (11.5-15.4); Immature Granulocytes % 0.9 % (0-4); Lymphocytes # 1.1 K/mcL (0.6-4.6); Mean Corpuscular HGB Conc 33.2 g/dL (31.6-35.5); Mean Corpuscular Hemoglobin 30.3 pg (28.0-33.3); Mean Corpuscular Volume 91.1 fL (83.0-100.0); Mean Platelet Volume 9.4 fL (9.4-12.4); Monocytes # 1.4 K/mcL (0.0-1.3); Platelet Count 169 K/mcL (140-400); Red Cell Distribution Width 16.1 % (11.5-14.5); Segmented Neutrophils % 78.3 %
[2018-04-21 13:17] LABS: INR 1.3; Prothrombin Time 14.4 Seconds (9.4-12.1)
[2018-04-21 13:19] LABS: Activated Partial Thrombo Time 33.7 Seconds (26.0-36.0)
[2018-04-21 13:21] LABS: Magnesium 1.5 mg/dL (1.6-2.6); Phosphorous 4.4 mg/dL (2.7-4.5)
[2018-04-21 13:22] LABS: Albumin 2.3 g/dL (3.5-5.7); Albumin/Globulin Ratio 0.7 (1.1-2.2); Bilirubin,Total 0.5 mg/dL (0.3-1.0); Calcium 7.6 mg/dL (8.6-10.3); Globulin 3.5 g/dL (2.4-3.5); Potassium 3.8 mEq/L (3.5-5.1); Total Protein 5.8 g/dL (6.4-8.9)
[2018-04-21] MEDS ORDERED: 0.9 % Sodium Chloride 250 ML IVC PRN (15:16)
--- NOTE | 2018-04-21 15:46 | Nephrology Consult Note ---
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 Last HD was monday, misssed due to nausea and vomiting and came to the ED instead today for evaluation instead of HD unit. Pt seen and examined on HD, did not have much else to say. She reports her homehealth quit coming for wound dressings but did not elaborate that she left AMA at last hospital stay. Ct showed possible gastritis/colitis. Past Med Surg Social Fam HX - Past Medical History Medical history: asthma, atrial fibrillation, diabetes, dialysis, GI bleed, hyperlipidemia, hypertension, renal disease, thyroid disease Additional medical history: ANEMIA, BLEEDING ULCER,. KIDNEY DIALYSIS Psychiatric history: no psych history - Past Surgical History Surgical History: appendectomy, cholecystectomy, thyroidectomy, transplant, other Additional surgical history: KIDNEY TRANSPLANT 2007, TUBAL LIGATION, shunt danya - Social History Smoking Status: Never smoker Smokeless Tobacco Status: No Alcohol use: none Drug use: none - Family History Father Adopted: No Family Member Ethnicity: Non- Living Status: Hx Family Cardiac Disorders: Yes Hx Family Respiratory Disorders: Yes Hx Family Cancer: Yes Hx Family GI Disorders: No Hx Family Endocrine Disorder: Yes Hx Family Neuromuscular Disorders: No Hx Family Neurologic Disorders: No Hx Family HEENT Disorders: No Hx Family Autoimmune Disorders: No Mother Adopted: No Living Status: Hx Family Cardiac Disorders: Yes Hx Family Respiratory Disorders: No Hx Family Cancer: Yes Hx Family GI Disorders: No Hx Family Endocrine Disorder: No Hx Family Neuromuscular Disorders: No Hx Family Neurologic Disorders: No Hx Family HEENT Disorders: No Hx Family Autoimmune Disorders: No Medications and Allergies Albuterol Sulfate [Albuterol Inhaler] 2 puff IH Q4H PRN 09/09/16 [History] Amiodarone [Cordarone] 200 mg PO DAILY 09/09/16 [History] Atorvastatin [Lipitor] 40 mg PO HS 09/09/16 [History] Budesonide/Formoterol 160/4.5 [Symbicort 160/4.5] 2 puff IH BIDR 09/09/16 [ History] Levothyroxine Sodium [Synthroid] 200 mcg PO QAM 09/09/16 [History] Omeprazole [PriLOSEC] 20 mg PO DAILY 09/09/16 [History] hydrALAZINE [HydrALAZINE] 50 mg PO BID 09/09/16 [History] Montelukast [Singulair] 10 mg PO DAILY 02/16/17 [History] Folic Acid 1 mg PO DAILY 01/07/18 [History] Metoprolol Succinate [Toprol Xl] 25 mg PO DAILY 01/07/18 [History] Apixaban [Eliquis] 5 mg PO BID #60 tablet 01/18/18 [Rx] Collagenase Oint [Santyl] 1 appl TP HS tube 02/16/18 [Rx] Darbepoetin [Aranesp] 60 mcg SQ QWEEK syringe 02/16/18 [Rx] Cinacalcet [Sensipar] 30 mg PO DAILY 30 Days #30 tablet 03/22/18 [Rx] predniSONE [PredniSONE] 10 mg PO DAILY tablet 03/22/18 [Rx] Ondansetron ODT [Zofran ODT] 4 mg SL Q8HR PRN #12 tab.rapdis 04/05/18 [Rx] Acetaminophen [Tylenol] 1,000 mg PO Q6HR PRN 04/21/18 [History] cloNIDine HCl [CloNIDine HCl] 0.1 mg PO TID 04/21/18 [History] 3 Allergy/AdvReac Type Severity Reaction Status Date / Time heparin Allergy Severe Unresponsiv Verified 04/21/18 13:20 e Warfarin [From Coumadin] Allergy Anaphylaxis Verified 04/21/18 11:18 Review of Systems All Systems review (narrative): The rest of the systems are negative Constitutional: anorexia (admits), weakness (admits) Cardiovascular: chest pain (denies), leg edema (denies) Respiratory: cough (denies), dyspnea (denies) Gastrointestinal: nausea (admits), vomiting (admits) Exam - Vital Signs Vital signs: Initial Vital Signs Pulse Ox 100 04/21/18 11:19 Vital Signs - Last 8 Hours Resp BP 04/21/18 15:18 20 152/67 - General Appearance General appearance: chronically ill (NAD) EENT: ATNC, mucous membranes dry Neck: no JVD, supple Respiratory: clear (ant bilat) Cardiology: no edema, normal S1, normal S2 - Dialysis Access Dialysis Vascular Access: Venous Catheter (permcath) Additional Comments: AVF still with thrill and bruit, weak Gastrointestinal: no tenderness, no guarding Additional Comments: wound dressings noted Integumentary: warm and dry Neurologic: no focal deficit Musculoskeletal: deformities (necrotic middle finger) Psychiatric: mood/affect appropriate Results - Lab Results 04/22/18 07:04 04/22/18 07:04 Most recent lab results Calcium 7.6 mg/dL (8.6-10.3) L 04/21/18 12:53 Phosphorus 4.4 mg/dL (2.7-4.5) 04/21/18 12:53 Magnesium 1.5 mg/dL (1.6-2.6) L 04/21/18 12:53 Consult Discharge Plan - Plan Referrals: Peter Vicente DO [Primary Care Provider] -
--- NOTE | 2018-04-21 15:59 | Internal Med History&Physical ---
Date of Encounter: 04/21/18 Time of Encounter: 15:57 ( ) Internal Medicine - H&P: HPI Chief complaint: nausea and vomiting Admitted From: Home Plans for Post Hospital Care: Transfer [facility] History of present illness: Ms. Alexis is a 43 year old female with past medical history of ESRD on HD TTS, atrial fibrillation, hypertension, hyperlipidemia, hypothyroidism, asthma and calciphylaxis came in with nausea and vomiting for past 2-3 days. Patient notably had CLABSI on her last admission. Blood cultures from her permacath staphylococcus epidermidis. She did not finish her course of vancomycin at that time and left AMA because she felt tired of the hospital. He is coming with complain of nausea and vomiting about 4-5 times a day since Monday. She has not had dialysis since then. She mentions Her nausea vomiting started after her dialysis session. She denies any fevers but admits to chills. Denies any difficulty breathing, chest pain, diarrhea. She makes minimal urine. She came to the hospital because she felt very sick. She has history of long-standing wounds on her abdomen and leg. There is some history of noncompliance with wound care and recurrent worsening of her wounds. She complains of pain in her left leg as well as abdomen. Patient was evaluated in ER and had multiple CT scans done. CT abdomen showed thickening of stomach, wall thickening of colon any areas of abdominal wall ulceration without evidence of abscess. CT chest showed small bilateral effusion, atelectasis. CT left lower extremity showed diffuse subcutaneous edema. Labs remarkable for Leukocytosis, hypoglycemia, elevated BUN/[employer]. Blood cultures were drawn and patient started on Vancomycin and Cefepime. Past Med Surg Social Fam HX - Past Medical History Medical history: asthma, atrial fibrillation, diabetes, dialysis, GI bleed, hyperlipidemia, hypertension, renal disease, thyroid disease Additional medical history: ANEMIA, BLEEDING ULCER,. KIDNEY DIALYSIS Psychiatric history: no psych history - Past Surgical History Surgical History: appendectomy, cholecystectomy, thyroidectomy, transplant, other Additional surgical history: KIDNEY TRANSPLANT 2007, TUBAL LIGATION, shunt danya - Social History Smoking Status: Never smoker Smokeless Tobacco Status: No Alcohol use: none Drug use: none - Family History Father Adopted: No Family Member Ethnicity: Non- Living Status: Hx Family Cardiac Disorders: Yes Hx Family Respiratory Disorders: Yes Hx Family Cancer: Yes Hx Family GI Disorders: No Hx Family Endocrine Disorder: Yes Hx Family Neuromuscular Disorders: No Hx Family Neurologic Disorders: No Hx Family HEENT Disorders: No Hx Family Autoimmune Disorders: No Mother Adopted: No Living Status: Hx Family Cardiac Disorders: Yes Hx Family Respiratory Disorders: No Hx Family Cancer: Yes Hx Family GI Disorders: No Hx Family Endocrine Disorder: No Hx Family Neuromuscular Disorders: No Hx Family Neurologic Disorders: No Hx Family HEENT Disorders: No Hx Family Autoimmune Disorders: No Internal Medicine - H&P: Meds Albuterol Sulfate [Albuterol Inhaler] 2 puff IH Q4H PRN 09/09/16 [History] Amiodarone [Cordarone] 200 mg PO DAILY 09/09/16 [History] Atorvastatin [Lipitor] 40 mg PO HS 09/09/16 [History] Budesonide/Formoterol 160/4.5 [Symbicort 160/4.5] 2 puff IH BIDR 09/09/16 [ History] Levothyroxine Sodium [Synthroid] 200 mcg PO QAM 09/09/16 [History] Omeprazole [PriLOSEC] 20 mg PO DAILY 09/09/16 [History] hydrALAZINE [HydrALAZINE] 50 mg PO BID 09/09/16 [History] Montelukast [Singulair] 10 mg PO DAILY 02/16/17 [History] Folic Acid 1 mg PO DAILY 01/07/18 [History] Metoprolol Succinate [Toprol Xl] 25 mg PO DAILY 01/07/18 [History] Apixaban [Eliquis] 5 mg PO BID #60 tablet 01/18/18 [Rx] Collagenase Oint [Santyl] 1 appl TP HS tube 02/16/18 [Rx] Darbepoetin [Aranesp] 60 mcg SQ QWEEK syringe 02/16/18 [Rx] Cinacalcet [Sensipar] 30 mg PO DAILY 30 Days #30 tablet 03/22/18 [Rx] predniSONE [PredniSONE] 10 mg PO DAILY tablet 03/22/18 [Rx] Ondansetron ODT [Zofran ODT] 4 mg SL Q8HR PRN #12 tab.rapdis 04/05/18 [Rx] Acetaminophen [Tylenol] 1,000 mg PO Q6HR PRN 04/21/18 [History] cloNIDine HCl [CloNIDine HCl] 0.1 mg PO TID 04/21/18 [History] 3 Allergy/AdvReac Type Severity Reaction Status Date / Time heparin Allergy Severe Unresponsiv Verified 04/21/18 13:20 e Warfarin [From Coumadin] Allergy Anaphylaxis Verified 04/21/18 11:18 All Systems PM: A 10-system review of systems was performed and is negative for pertinent findings except as documented above in the HPI. - Constitutional Vitals: Temp Pulse Resp BP Pulse Ox 97.7 F 93 20 152/67 95 04/21/18 11:27 04/21/18 12:30 04/21/18 15:18 04/21/18 15:18 04/21/18 12:30 General appearance: Present: A&O X 3, obese Exam: Constitutional: Vitals as noted. Conversant. No Apparent Distress. Eyes : Sclera white, conjunctiva clear, no lid lag, PEARLA. ENT : Grossly normal hearing. Oropharyngeal exam unremarkable. Moist mucus membranes. No JVD. no cervical lymphadenopathy. no thyromegaly or mass. Respiratory : Clear to auscultation bilaterally. No accessory muscle use, rales , rhonchi or wheezes Cardiovascular : RRR, +S1, +S2. no murmur, gallop, rubs. No chest wall tenderness GI/Abdominal : Soft, obese, normal bowel sounds, soft, no peritoneal signs. Musculoskeletal: Wasting of her lower extremity. Neurological: AO X3, CN II-XII grossly intact, grossly normal motor and sensory exam. Skin: two 4x5 wound on Lt thigh associated erythema and tenderness with pustular discharge and some necrotic material. 20x15 cm wound on Rt and Left abdomen with pustular drainage. Internal Med - H&P Results - Labs CBC & Chem 7: 04/21/18 12:53 04/21/18 12:53 - Assessment and plan (1) Nausea & vomiting Current Visit: No Status: Resolved Assessment and plan: Possibly from infection from wound or Blood stream infection - Blood culture from 04/07/18 and 04/09/18 positive for staph epi. Did not finish course. Had 5 days left of treatment before she left AMA. - Continue Vancomyin and cefipime - f/u Blood and wound culture - Wound dressing, wound care consulted - ID and Surgery consulted Qualifiers: Vomiting type: unspecified Vomiting Intractability: unspecified Qualified Code(s): R11.2 - Nausea with vomiting, unspecified (2) CLABSI (central line-associated bloodstream infection) Current Visit: No Status: Acute Assessment and plan: as above Qualifiers: Encounter type: subsequent encounter Qualified Code(s): T80.211D - Bloodstream infection due to central venous catheter, subsequent encounter (3) Wounds, multiple Current Visit: No Status: Chronic Assessment and plan: as above (4) ESRD (end stage renal disease) Current Visit: Yes Status: Chronic Assessment and plan: - No HD since monday. - Nephrology consulted for Hemodialysis. - continue cinacalcet (5) Cellulitis Current Visit: No Status: Acute Assessment and plan: as above Qualifiers: Site of cellulitis: unspecified site Qualified Code(s): L03.90 - Cellulitis , unspecified (6) ESRD (end stage renal disease) on dialysis Current Visit: No Status: Chronic (7) Hypertension Current Visit: No Status: Chronic Assessment and plan: - c/w home hydralazine Qualifiers: Hypertension type: essential hypertension Qualified Code(s): I10 - Essential (primary) hypertension (8) Hypothyroidism Current Visit: No Status: Chronic Assessment and plan: -c/w home levothyroxin Qualifiers: Hypothyroidism type: unspecified Qualified Code(s): E03.9 - Hypothyroidism , unspecified (9) Hypoglycemia Current Visit: Yes Status: Acute Assessment and plan: - Low blood sugar in ER. Ate icecream afterward. Spoke with nurse to do POC accucheck - continue renal diet (10) DVT prophylaxis Current Visit: No Status: Acute (11) Afib Current Visit: No Status: Chronic Assessment and plan: - c/w home amiodarone and metoprolol - Was started on apixaban. Last filled in january. Will resume once confirmed. Qualifiers: Atrial fibrillation type: paroxysmal Qualified Code(s): I48.0 - Paroxysmal atrial fibrillation (12) Asthma Current Visit: No Status: Chronic Assessment and plan: -c/w albuterol as needed - c/w montelukast Qualifiers: Asthma severity: unspecified severity Asthma persistence: unspecified Asthma complication type: unspecified Qualified Code(s): J45.909 - Unspecified asthma, uncomplicated - Time Spent With Patient Total time spent is greater than 50% in coordination of care (as documented) at patient's floor/unit and/or counseling patient:
[2018-04-21 16:31] LABS: Hepatitis B Surface Antigen Nonreactive (Nonreactive)
[2018-04-21] MEDS ORDERED: traMADol 50 MG TABLET PO PRN (19:23)
[2018-04-21] MEDS: cloNIDine HCl 0.1 MG TABLET PO SCH (20:33)
[2018-04-21] MEDS: hydrALAZINE 25 MG TABLET PO SCH (20:33)
[2018-04-21] MEDS: Ondansetron ODT 4 MG TAB.RAPDIS SL PRN (20:51)
[2018-04-21] MEDS: Budesonide/Formoterol 160/4.5 1 PUFF INH IH SCH (22:03)
[2018-04-22] MEDS ORDERED: OXYCODONE Oral CONC 10 MG/0.5 ML ORAL.SYG SL ONE (01:01)
[2018-04-22 07:18] LABS: Basophils % 0.3 %; Eosinophils # 0.3 K/mcL (0.0-0.6); Hematocrit 25.2 % (35.3-44.9); Immature Granulocytes % 0.7 % (0-4); Lymphocytes # 1.5 K/mcL (0.6-4.6); Mean Corpuscular HGB Conc 32.5 g/dL (31.6-35.5); Mean Corpuscular Volume 92.3 fL (83.0-100.0); Mean Platelet Volume 9.7 fL (9.4-12.4); Monocytes # 1.6 K/mcL (0.0-1.3); Monocytes % 15.3 %; Neutrophils # 6.7 K/mcL (1.6-8.9); Platelet Count 114 K/mcL (140-400); Red Blood Count 2.73 M/mcL (3.82-4.97); Red Cell Distribution Width 16.7 % (11.5-14.5); Segmented Neutrophils % 65.7 %
[2018-04-22 07:19] LABS: Hemoglobin 8.2 g/dL (11.5-15.4)
[2018-04-22 07:37] LABS: Calcium 6.8 mg/dL (8.6-10.3); Potassium 3.6 mEq/L (3.5-5.1)
[2018-04-22] MEDS: Budesonide/Formoterol 160/4.5 1 PUFF INH IH SCH ×2 (07:49→20:34)
[2018-04-22] MEDS: Folic Acid 1 MG TABLET PO SCH (08:13)
[2018-04-22] MEDS: *HR* Amiodarone 200 MG TABLET PO SCH (08:13)
[2018-04-22] MEDS: cloNIDine HCl 0.1 MG TABLET PO SCH ×2 (08:13→14:14)
[2018-04-22] MEDS: predniSONE 10 MG TABLET PO SCH (08:13)
[2018-04-22] MEDS: Ondansetron ODT 4 MG TAB.RAPDIS SL PRN ×2 (08:13→17:39)
[2018-04-22] MEDS: Metoprolol XL (24 HR) Succ 25 MG TAB.ER.24H PO SCH (08:14)
[2018-04-22] MEDS: hydrALAZINE 25 MG TABLET PO SCH (08:14)
--- NOTE | 2018-04-22 11:02 | General Surgery Consult Note ---
Date of Encounter: 04/22/18 Time of Encounter: 11:02 Assessment and Plan (1) Calciphylaxis Current Visit: No Status: Chronic Dressing change orders a constitution party been in place (Dakins soaked Kerlix with 4 x 4 gauze daily). I last the staff to go ahead and obtain a culture the abdominal wound. A culture of the right lower extremity is already been obtained. This possible that the right upper thigh wound can be debrided at the bedside. Overall the wounds have a very healthy-appearing base and I think the majority of the problems related to the current appearance of the wounds are related to local wound care issues while the patient is at home. We will continue to follow. History of Present Illness Consult date: 04/22/18 Requesting physician: Gracy Rosario History of present illness: Patient is a 43-year-old female with past history significant for end-stage renal disease on dialysis as well as a history of calciphylaxis with multiple wounds throughout the extremities and abdomen presents to the [facility] due to concern about worsening infection of the abdominal wound in the right lower extremity wound. She states that she is had dressing changes performed at home with normal saline and the wound on the abdomen has be draining more than normal. She also complains of drainage from the right upper thigh wound. She admits to subjective temperature and has also been having some nausea vomiting symptoms. She was last in the hospital with infection of her permacatheter which was subsequently removed. She left A 04/12/2018 and reportedly has not had dialysis since that time. Think symptoms of nausea vomiting for the past 4-5 days. Past Med Surg Social Fam HX - Past Medical History Medical history: asthma, atrial fibrillation, diabetes, dialysis, GI bleed, hyperlipidemia, hypertension, renal disease, thyroid disease Additional medical history: ANEMIA, BLEEDING ULCER,. KIDNEY DIALYSIS Psychiatric history: no psych history - Past Surgical History Surgical History: appendectomy, cholecystectomy, thyroidectomy, transplant, other Additional surgical history: KIDNEY TRANSPLANT 2007, TUBAL LIGATION, shunt danya - Social History Smoking Status: Never smoker Smokeless Tobacco Status: No Alcohol use: none Drug use: none - Family History Father Adopted: No Family Member Ethnicity: Non- Living Status: Hx Family Cardiac Disorders: Yes Hx Family Respiratory Disorders: Yes Hx Family Cancer: Yes Hx Family GI Disorders: No Hx Family Endocrine Disorder: Yes Hx Family Neuromuscular Disorders: No Hx Family Neurologic Disorders: No Hx Family HEENT Disorders: No Hx Family Autoimmune Disorders: No Mother Adopted: No Living Status: Hx Family Cardiac Disorders: Yes Hx Family Respiratory Disorders: No Hx Family Cancer: Yes Hx Family GI Disorders: No Hx Family Endocrine Disorder: No Hx Family Neuromuscular Disorders: No Hx Family Neurologic Disorders: No Hx Family HEENT Disorders: No Hx Family Autoimmune Disorders: No Medications and Allergies Albuterol Sulfate [Albuterol Inhaler] 2 puff IH Q4H PRN 09/09/16 [History] Amiodarone [Cordarone] 200 mg PO DAILY 09/09/16 [History] Atorvastatin [Lipitor] 40 mg PO HS 09/09/16 [History] Budesonide/Formoterol 160/4.5 [Symbicort 160/4.5] 2 puff IH BIDR 09/09/16 [ History] Levothyroxine Sodium [Synthroid] 200 mcg PO QAM 09/09/16 [History] Omeprazole [PriLOSEC] 20 mg PO DAILY 09/09/16 [History] hydrALAZINE [HydrALAZINE] 50 mg PO BID 09/09/16 [History] Montelukast [Singulair] 10 mg PO DAILY 02/16/17 [History] Folic Acid 1 mg PO DAILY 01/07/18 [History] Metoprolol Succinate [Toprol Xl] 25 mg PO DAILY 01/07/18 [History] Apixaban [Eliquis] 5 mg PO BID #60 tablet 01/18/18 [Rx] Collagenase Oint [Santyl] 1 appl TP HS tube 02/16/18 [Rx] Darbepoetin [Aranesp] 60 mcg SQ QWEEK syringe 02/16/18 [Rx] Cinacalcet [Sensipar] 30 mg PO DAILY 30 Days #30 tablet 03/22/18 [Rx] predniSONE [PredniSONE] 10 mg PO DAILY tablet 03/22/18 [Rx] Ondansetron ODT [Zofran ODT] 4 mg SL Q8HR PRN #12 tab.rapdis 04/05/18 [Rx] Acetaminophen [Tylenol] 1,000 mg PO Q6HR PRN 04/21/18 [History] cloNIDine HCl [CloNIDine HCl] 0.1 mg PO TID 04/21/18 [History] 3 Allergy/AdvReac Type Severity Reaction Status Date / Time heparin Allergy Severe Unresponsiv Verified 04/21/18 13:20 e Warfarin [From Coumadin] Allergy Anaphylaxis Verified 04/21/18 11:18 Review of Systems All systems PM: reviewed and no additional remarkable complaints except as stated All systems PM: The remainder of the systems were reviewed and are negative General Surgery Exam Initial Vital Signs Pulse Ox 100 04/21/18 11:19 - Eyes PERRL, normal ocular movement - Abdomen Abdomen general surgery: Present: wound (Lower abdominal wound present there is granulation tissue noted in the left lower quadrant with some mild exudate. A very small focus of necrotic tissues noted in the left lower inferior pole.) - Musculoskeletal Present: other (Multiple wounds noted in the bilateral upper thighs with granulation tissue present. In the right upper thigh there is a wound with an eschar with evidence exudate present. The wound itself is approximately 3-4 cm in diameter.) Exam Initial Vital Signs Pulse Ox 100 04/21/18 11:19 Results - Labs 04/23/18 05:05 04/23/18 05:05 Abnormal lab results RBC 2.73 M/mcL (3.82-4.97) L 04/22/18 07:04 Hgb 8.2 g/dL (11.5-15.4) L D 04/22/18 07:04 Hct 25.2 % (35.3-44.9) L 04/22/18 07:04 RDW 16.7 % (11.5-14.5) H 04/22/18 07:04 Plt Count 114 K/mcL (140-400) L 04/22/18 07:04 Monocytes # 1.6 K/mcL (0.0-1.3) H 04/22/18 07:04 PT 14.4 Seconds (9.4-12.1) H 04/21/18 12:53 Sodium 135 mEq/L (136-145) L 04/22/18 07:04 Carbon Dioxide 22 mEq/L (23-29) L 04/22/18 07:04 Creatinine 4.86 mg/dL (0.60-1.20) H 04/22/18 07:04 Est GFR ( Amer) 12 (> 60) L 04/22/18 07:04 Est GFR (Non-Af Amer) 10 (> 60) L 04/22/18 07:04 BUN/Creatinine Ratio 3 (6-26) L 04/22/18 07:04 Glucose 58 mg/dL (70-105) L 04/22/18 07:04 POC Glucose 61 mg/dL (70-99) L 04/21/18 16:33 Calculated Osmolality 278 (280-300) L 04/22/18 07:04 Calcium 6.8 mg/dL (8.6-10.3) L 04/22/18 07:04 Magnesium 1.5 mg/dL (1.6-2.6) L 04/21/18 12:53 AST 10 Units/L (13-39) L 04/21/18 12:53 ALT 3 Units/L (7-52) L 04/21/18 12:53 Alkaline Phosphatase 242 Units/L (34-104) H 04/21/18 12:53 Serum Total Protein 5.8 g/dL (6.4-8.9) L 04/21/18 12:53 Albumin 2.3 g/dL (3.5-5.7) L 04/21/18 12:53 Albumin/Globulin Ratio 0.7 (1.1-2.2) L 04/21/18 12:53 Diabetes panel 04/22/18 Range/Units 07:04 Sodium 135 L (136-145) mEq/L Potassium 3.6 (3.5-5.1) mEq/L Chloride 99 (98-107) mEq/L Carbon Dioxide 22 L (23-29) mEq/L BUN 13 (6-20) mg/dL Creatinine 4.86 H (0.60-1.20) mg/dL Glucose 58 L (70-105) mg/dL Calcium 6.8 L (8.6-10.3) mg/dL Calcium panel 04/22/18 Range/Units 07:04 Calcium 6.8 L (8.6-10.3) mg/dL Pituitary panel 04/22/18 Range/Units 07:04 Sodium 135 L (136-145) mEq/L Potassium 3.6 (3.5-5.1) mEq/L Chloride 99 (98-107) mEq/L Carbon Dioxide 22 L (23-29) mEq/L BUN 13 (6-20) mg/dL Creatinine 4.86 H (0.60-1.20) mg/dL Glucose 58 L (70-105) mg/dL Calcium 6.8 L (8.6-10.3) mg/dL Adrenal panel 04/22/18 Range/Units 07:04 Sodium 135 L (136-145) mEq/L Potassium 3.6 (3.5-5.1) mEq/L Chloride 99 (98-107) mEq/L Carbon Dioxide 22 L (23-29) mEq/L BUN 13 (6-20) mg/dL Creatinine 4.86 H (0.60-1.20) mg/dL Glucose 58 L (70-105) mg/dL Calcium 6.8 L (8.6-10.3) mg/dL All other labs normal. Consult Discharge Plan - Plan Referrals: Peter Vicente DO [Primary Care Provider] -
--- NOTE | 2018-04-22 12:16 | Internal Med Progress Note ---
Hospitalist Progress Note - Encounter Date of Encounter: 04/22/18 Time of Encounter: 10:12 - Subjective Interval History: Patient seen and examined this morning. No events overnight. Complains of pain in leg and abdomen. No fever, chills. N/V improved. - Exam Vitals: Temp Pulse Resp BP Pulse Ox 99 F 80 20 110/41 94 04/22/18 11:26 04/22/18 11:26 04/22/18 11:26 04/22/18 11:26 04/22/18 11:26 Exam: Constitutional: Vitals as noted. Conversant. No Apparent Distress. Eyes : Sclera white, conjunctiva clear, no lid lag, PEARLA. ENT : Grossly normal hearing. Oropharyngeal exam unremarkable. Moist mucus membranes. No JVD. no cervical lymphadenopathy. no thyromegaly or mass. Respiratory : Clear to auscultation bilaterally. No accessory muscle use, rales , rhonchi or wheezes Cardiovascular : RRR, +S1, +S2. no murmur, gallop, rubs. No chest wall tenderness GI/Abdominal : Soft, obese, normal bowel sounds, soft, no peritoneal signs. Musculoskeletal: Wasting of her lower extremity. Neurological: AO X3, CN II-XII grossly intact, grossly normal motor and sensory exam. Skin: two 4x5 wound on Lt thigh associated erythema and tenderness with pustular discharge and some necrotic material. 20x15 cm wound on Rt and Left abdomen with pustular drainage. - Assessment and Plan (1) Nausea & vomiting Current Visit: No Status: Resolved (2) CLABSI (central line-associated bloodstream infection) Current Visit: No Status: Acute (3) Wounds, multiple Current Visit: No Status: Chronic (4) ESRD (end stage renal disease) Current Visit: Yes Status: Chronic (5) Cellulitis Current Visit: No Status: Acute (6) ESRD (end stage renal disease) on dialysis Current Visit: No Status: Chronic (7) Hypertension Current Visit: No Status: Chronic (8) Hypothyroidism Current Visit: No Status: Chronic (9) Hypoglycemia Current Visit: Yes Status: Acute (10) DVT prophylaxis Current Visit: No Status: Acute (11) Afib Current Visit: No Status: Chronic (12) Asthma Current Visit: No Status: Chronic - Summary of Assessment and Plan Summary of Assessment and Plan: Nausea & vomiting - Possibly from infection from wound or Blood stream infection - Blood culture from 04/07/18 and 04/09/18 positive for staph epi. Did not finish course. Had 5 days left of treatment before she left AMA. - Continue Vancomyin and cefipime - f/u Blood and wound culture. Blood culture NGTD. - Wound dressing, wound care consulted - ID and Surgery consulted ESRD - No HD since monday. - Nephrology consulted for Hemodialysis. - continue cinacalcet Hypertension - BP on low end. - Will hold antihypertensives. Hypothyroidism - c/w home levothyroxine Hypoglycemia - Low blood sugar in ER. Ate icecream afterward. Spoke with nurse to do POC accucheck - continue renal diet Afib - c/w home amiodarone and metoprolol - Was started on apixaban. Last filled in january. Will resume once confirmed. Asthma - c/w albuterol as needed - c/w montelukast DVT ppx - heparin sc. - Time Spent with Patient Total time spent is greater than 50% in coordination of care (as documented) at patient's floor/unit and/or counseling patient: Internal Medicine: Result - Labs CBC & Chem 7: 04/22/18 07:04 04/22/18 07:04 Labs: Short CBC 04/22/18 Range/Units 07:04 WBC 10.2 (4.3-11.1) K/mcL Hgb 8.2 L D (11.5-15.4) g/dL Hct 25.2 L (35.3-44.9) % Plt Count 114 L (140-400) K/mcL Neutrophils # 6.7 (1.6-8.9) K/mcL BMP 04/22/18 07:04 Sodium 135 L Potassium 3.6 Chloride 99 Carbon Dioxide 22 L BUN 13 Creatinine 4.86 H Glucose 58 L Calcium 6.8 L - ABG Interpretation ABG results: PT/INR, D-dimer PT 14.4 Seconds (9.4-12.1) H 04/21/18 12:53 Consult Discharge Plan - Plan Referrals: Peter Vicente DO [Primary Care Provider] - (1) Nausea & vomiting Qualifiers: Vomiting type: unspecified Vomiting Intractability: unspecified Qualified Code(s): R11.2 - Nausea with vomiting, unspecified (2) CLABSI (central line-associated bloodstream infection) Qualifiers: Encounter type: subsequent encounter Qualified Code(s): T80.211D - Bloodstream infection due to central venous catheter, subsequent encounter (5) Cellulitis Qualifiers: Site of cellulitis: unspecified site Qualified Code(s): L03.90 - Cellulitis, unspecified (7) Hypertension Qualifiers: Hypertension type: essential hypertension Qualified Code(s): I10 - Essential (primary) hypertension (8) Hypothyroidism Qualifiers: Hypothyroidism type: unspecified Qualified Code(s): E03.9 - Hypothyroidism, unspecified (11) Afib Qualifiers: Atrial fibrillation type: paroxysmal Qualified Code(s): I48.0 - Paroxysmal atrial fibrillation (12) Asthma Qualifiers: Asthma severity: unspecified severity Asthma persistence: unspecified Asthma complication type: unspecified Qualified Code(s): J45.909 - Unspecified asthma, uncomplicated
--- NOTE | 2018-04-22 13:42 | Nephrology Progress Note ---
Date of Encounter: 04/22/18 Time of Encounter: 13:00 - Assessment and Plan (1) ESRD (end stage renal disease) Current Visit: Yes Status: Chronic s/p HD yesterday, next HD planned for monday stable Continue renal diet (2) Calciphylaxis Current Visit: No Status: Chronic Will resume sodium thiosulfate after HD treatments Need wound care consult to reassess wounds (3) Noncompliance with renal dialysis Current Visit: No Status: Chronic (4) Nausea & vomiting Current Visit: No Status: Resolved Per primary team Not sure if line sepsis related, await blood culture results Qualifiers: Vomiting type: unspecified Vomiting Intractability: unspecified Qualified Code(s): R11.2 - Nausea with vomiting, unspecified Subjective Interval history: Pt seen and examined with boyfriend at bedside. No new complaints. Objective - Vital Signs Vital signs: Vital Signs Temp Pulse Resp BP Pulse Ox 04/22/18 11:26 99 F 80 20 110/41 94 04/22/18 07:49 18 96 04/22/18 07:37 99 F 91 20 109/48 95 04/22/18 04:30 99.4 F 100 16 115/77 96 04/21/18 23:32 99.6 F 94 17 102/67 97 04/21/18 22:36 97 04/21/18 22:03 20 97 04/21/18 20:41 98.3 F 99 16 108/72 97 04/21/18 20:10 97.7 F 18 163/77 04/21/18 19:50 152/73 04/21/18 19:45 137/71 04/21/18 19:30 141/73 04/21/18 19:15 110/51 04/21/18 19:00 118/74 04/21/18 18:45 127/68 04/21/18 18:30 134/71 04/21/18 18:15 119/57 04/21/18 18:00 122/62 04/21/18 17:45 149/68 04/21/18 17:30 153/82 04/21/18 17:15 146/66 04/21/18 17:00 98.4 F 18 143/53 04/21/18 16:21 98.2 F 91 18 134/71 91 Intake and Output 04/21/18 04/22/18 04/22/18 23:59 07:59 15:59 Intake Total 600 / 600 150 / 150 Output Total 2463 / 2463 0 / 0 Balance -1863 / -1863 150 / 150 Intake: Oral 0 / 0 150 / 150 Intake, Rinseback and Flushes 600 / 600 Output: Urine 0 / 0 0 / 0 Total Dialysis (HD) Output 2463 / 2463 Other: Meal Breakfast Percent of Meal Consumed 75% Weight 82 kg Blood Glucose* 57 60 78 Hemodialysis Net Fluid Removed 1863 (mL) - General Appearance General appearance: Present: chronically ill (NAD) EENT: Present: ATNC, mucous membranes moist Neck: Present: no JVD, supple Respiratory: Present: clear Cardiology: Present: no edema, normal S1, normal S2 Dialysis Vascular Access: Venous Catheter (permcath) Additional Comments: AVF still weak thrill, bruit Gastrointestinal: Present: no tenderness, no guarding, obese (wounds with dressings) Integumentary: Present: warm and dry Neurologic: Present: no focal deficit Musculoskeletal: Present: deformities (necrotic finger) Psychiatric: Present: mood/affect appropriate - Lab 04/22/18 07:04 04/22/18 07:04 Most recent lab results Calcium 6.8 mg/dL (8.6-10.3) L 04/22/18 07:04 Phosphorus 4.4 mg/dL (2.7-4.5) 04/21/18 12:53 Magnesium 1.5 mg/dL (1.6-2.6) L 04/21/18 12:53 Consult Discharge Plan - Plan Referrals: Peter Vicente DO [Primary Care Provider] -
[2018-04-22] MEDS ORDERED: Vancomycin 1 EACH in EMPTY BAG 1 EACH IVPB SCH (14:00)
[2018-04-22] MEDS: Cefepime HCl 1,000 MG in Water for inj. (sterile) 20 ML 10 ML IVP SCH (14:14)
[2018-04-22] MEDS: *HR* Heparin 5,000 UNIT/ML VIAL SQ SCH (19:42)
[2018-04-23] MEDS: *HR* OxyCODONE/APAP 5/325 TABLET PO PRN ×2 (02:40→21:21)
[2018-04-23 05:37] LABS: Basophils % 0.1 %; Eosinophils % 0.3 %; Hematocrit 21.6 % (35.3-44.9); Immature Granulocytes % 0.9 % (0-4); Lymphocytes # 1.4 K/mcL (0.6-4.6); Lymphocytes % 16.2 %; Mean Corpuscular HGB Conc 32.4 g/dL (31.6-35.5); Mean Corpuscular Hemoglobin 30.3 pg (28.0-33.3); Mean Corpuscular Volume 93.5 fL (83.0-100.0); Mean Platelet Volume 9.6 fL (9.4-12.4); Monocytes # 0.9 K/mcL (0.0-1.3); Monocytes % 10.4 %; Neutrophils # 6.2 K/mcL (1.6-8.9); Platelet Count 112 K/mcL (140-400); Red Blood Count 2.31 M/mcL (3.82-4.97); Red Cell Distribution Width 16.7 % (11.5-14.5); Segmented Neutrophils % 72.1 %
[2018-04-23 05:57] LABS: Calcium 6.8 mg/dL (8.6-10.3); Potassium 4.2 mEq/L (3.5-5.1)
[2018-04-23] MEDS: *HR* Heparin 5,000 UNIT/ML VIAL SQ SCH ×3 (06:02→20:30)
[2018-04-23] MEDS: Budesonide/Formoterol 160/4.5 1 PUFF INH IH SCH ×2 (07:28→19:30)
--- NOTE | 2018-04-23 09:31 | Nephrology Progress Note ---
Date of Encounter: 04/23/18 Time of Encounter: 09:29 - Assessment and Plan (1) Calciphylaxis Current Visit: No Status: Chronic Will resume sodium thiosulfate after HD treatments Need wound care consult to reassess wounds. She is home without home health or outpatient wound clinic so significant other is taking care of wounds. (2) ESRD (end stage renal disease) Current Visit: Yes Status: Chronic HD planned for tomorrow. Lytes stable Continue renal diet (3) Noncompliance with renal dialysis Current Visit: No Status: Chronic Often misses HD treatments. (4) Nausea & vomiting Current Visit: No Status: Resolved Per primary team Not sure if line sepsis related, await blood culture results. Qualifiers: Vomiting type: unspecified Vomiting Intractability: unspecified Qualified Code(s): R11.2 - Nausea with vomiting, unspecified Subjective Principal diagnosis: nausea/vomiting Interval history: Pt seen and examined. Admits nausea is much better. Denies SOB/CP. Objective - Vital Signs Vital signs: Vital Signs Temp Pulse Resp BP Pulse Ox 04/23/18 07:29 18 95 04/23/18 06:48 99.1 F 70 20 134/81 94 04/23/18 04:52 99.1 F 70 16 118/40 96 04/23/18 01:22 98.5 F 99 16 125/69 95 04/22/18 21:00 99.7 F H 75 16 117/77 95 04/22/18 20:34 20 97 04/22/18 19:43 97 04/22/18 16:11 98.8 F 76 20 106/73 97 04/22/18 11:26 99 F 80 20 110/41 94 Intake and Output 04/22/18 04/23/18 04/23/18 23:59 07:59 15:59 Intake Total 30 / 30 Output Total 0 / 0 Balance 30 / 30 Intake: Oral 30 / 30 Output: Urine 0 / 0 Other: Weight 82.6 kg Blood Glucose* 123 92 Patient Weight 04/23/18 23:59 Weight 82.6 kg - General Appearance General appearance: Present: well-developed, well-nourished EENT: Present: ATNC, hearing intact, vision intact Neck: Present: supple Respiratory: Present: clear Cardiology: Present: no edema, normal S1, normal S2 Dialysis Vascular Access: Venous Catheter (Tunneled Line, RIZWANG C/D/I) Gastrointestinal: Present: normoactive bowel sounds, no tenderness, no guarding Integumentary: Present: no rash, warm and dry Neurologic: Present: alert and oriented x3 Psychiatric: Present: mood/affect appropriate, cooperative - Lab 04/23/18 05:05 04/23/18 05:05 Most recent lab results Calcium 6.8 mg/dL (8.6-10.3) L 04/23/18 05:05 Phosphorus 4.4 mg/dL (2.7-4.5) 04/21/18 12:53 Magnesium 1.5 mg/dL (1.6-2.6) L 04/21/18 12:53 Consult Discharge Plan - Plan Referrals: Peter Vicente DO [Primary Care Provider] -
[2018-04-23] MEDS ORDERED: Vancomycin 1 EACH in EMPTY BAG 1 EACH IVPB PRN (10:00)
[2018-04-23] MEDS: *HR* Amiodarone 200 MG TABLET PO SCH (10:58)
[2018-04-23] MEDS: Metoprolol XL (24 HR) Succ 25 MG TAB.ER.24H PO SCH (10:58)
[2018-04-23] MEDS: Folic Acid 1 MG TABLET PO SCH (10:58)
[2018-04-23] MEDS: predniSONE 10 MG TABLET PO SCH (10:58)
--- NOTE | 2018-04-23 11:55 | Internal Med Progress Note ---
Hospitalist Progress Note - Encounter Date of Encounter: 04/23/18 Time of Encounter: 09:16 - Subjective Interval History: Patient seen and examined this morning. No events overnight. Complains of pain in leg and abdomen. No fever, chills. N/V improved. One episode yesterday. - Exam Vitals: Temp Pulse Resp BP Pulse Ox 98.8 F 72 18 119/75 93 04/23/18 11:17 04/23/18 11:17 04/23/18 11:17 04/23/18 11:17 04/23/18 11:17 Exam: Constitutional: Vitals as noted. Conversant. No Apparent Distress. Eyes : Sclera white, conjunctiva clear, no lid lag, PEARLA. ENT : Grossly normal hearing. Oropharyngeal exam unremarkable. Moist mucus membranes. No JVD. no cervical lymphadenopathy. no thyromegaly or mass. Respiratory : Clear to auscultation bilaterally. No accessory muscle use, rales , rhonchi or wheezes Cardiovascular : RRR, +S1, +S2. no murmur, gallop, rubs. No chest wall tenderness GI/Abdominal : Soft, obese, normal bowel sounds, soft, no peritoneal signs. Musculoskeletal: Wasting of her lower extremity. Neurological: AO X3, CN II-XII grossly intact, grossly normal motor and sensory exam. Skin: Multiple wounds on Lt thigh and Rt thigh associated erythema and tenderness with pustular discharge and some necrotic material. 20x15 cm wound on Rt and Left abdomen with pustular drainage. - Assessment and Plan (1) Nausea & vomiting Current Visit: No Status: Resolved (2) CLABSI (central line-associated bloodstream infection) Current Visit: No Status: Acute (3) Wounds, multiple Current Visit: No Status: Chronic (4) ESRD (end stage renal disease) Current Visit: Yes Status: Chronic (5) Cellulitis Current Visit: No Status: Acute (6) ESRD (end stage renal disease) on dialysis Current Visit: No Status: Chronic (7) Hypertension Current Visit: No Status: Chronic (8) Hypothyroidism Current Visit: No Status: Chronic (9) Hypoglycemia Current Visit: Yes Status: Acute (10) DVT prophylaxis Current Visit: No Status: Acute (11) Afib Current Visit: No Status: Chronic (12) Asthma Current Visit: No Status: Chronic - Summary of Assessment and Plan Summary of Assessment and Plan: Wound infection, Recent CLABSI with treatment unfinished coming with N/V - Blood culture from 04/07/18 and 04/09/18 positive for staph epi. Did not finish course. Had 5 days left of treatment before she left AMA. - Continue Vancomyin and cefipime - f/u Blood and wound culture. Blood culture NGTD. - Wound dressing, wound care consulted - ID and Surgery consulted ESRD - Nephrology consulted for Hemodialysis. Plan for dialysis tommorrow - continue cinacalcet - Sodium thiosulfate after HD Hypertension - BP on low end. - Will hold antihypertensives. Hypothyroidism - c/w home levothyroxine Hypoglycemia - resolved Afib - c/w home amiodarone and metoprolol - Was started on apixaban. Last filled in january. Will resume once confirmed and Hb stable. Asthma - c/w albuterol as needed - c/w montelukast DVT ppx - heparin sc. - Time Spent with Patient Total time spent is greater than 50% in coordination of care (as documented) at patient's floor/unit and/or counseling patient: Internal Medicine: Result - Labs CBC & Chem 7: 04/23/18 05:05 04/23/18 05:05 Labs: Short CBC 04/23/18 Range/Units 05:05 WBC 8.7 (4.3-11.1) K/mcL Hgb 7.0 L (11.5-15.4) g/dL Hct 21.6 L (35.3-44.9) % Plt Count 112 L (140-400) K/mcL Neutrophils # 6.2 (1.6-8.9) K/mcL BMP 04/23/18 05:05 Sodium 135 L Potassium 4.2 Chloride 100 Carbon Dioxide 24 BUN 18 Creatinine 5.78 H Glucose 85 Calcium 6.8 L - ABG Interpretation ABG results: PT/INR, D-dimer PT 14.4 Seconds (9.4-12.1) H 04/21/18 12:53 Consult Discharge Plan - Plan Referrals: Peter Vicente DO [Primary Care Provider] - (1) Nausea & vomiting Qualifiers: Vomiting type: unspecified Vomiting Intractability: unspecified Qualified Code(s): R11.2 - Nausea with vomiting, unspecified (2) CLABSI (central line-associated bloodstream infection) Qualifiers: Encounter type: subsequent encounter Qualified Code(s): T80.211D - Bloodstream infection due to central venous catheter, subsequent encounter (5) Cellulitis Qualifiers: Site of cellulitis: unspecified site Qualified Code(s): L03.90 - Cellulitis, unspecified (7) Hypertension Qualifiers: Hypertension type: essential hypertension Qualified Code(s): I10 - Essential (primary) hypertension (8) Hypothyroidism Qualifiers: Hypothyroidism type: unspecified Qualified Code(s): E03.9 - Hypothyroidism, unspecified (11) Afib Qualifiers: Atrial fibrillation type: paroxysmal Qualified Code(s): I48.0 - Paroxysmal atrial fibrillation (12) Asthma Qualifiers: Asthma severity: unspecified severity Asthma persistence: unspecified Asthma complication type: unspecified Qualified Code(s): J45.909 - Unspecified asthma, uncomplicated
--- NOTE | 2018-04-23 12:15 | General Surgery Procedure Note ---
Date of procedure: 04/23/18 Pre-op diagnosis: Calciphylaxis, necrotic right thigh wound Post-op diagnosis: same Procedure: After informed consent was obtained and timeout performed, a #15 blade scalpel was used to debride necrotic tissue from the right thigh wound. Debridement was carried out through skin and subcutaneous tissue at the bedside. The patient tolerated this well. There was no bleeding noted. No immediate complications noted. Plan to apply dressings as ordered per the hospitalist when supplies available. Complications: None immediate Anesthesia: none Surgeon: Patsy Ramírez Estimated blood loss (cc): 0 Pathology: none sent Condition: stable Disposition: no change
--- NOTE | 2018-04-23 15:12 | Infectious Disease Consult ---
Date of Encounter: 04/23/18 Time of Encounter: 14:48 Assessment and Plan (1) Chronic wound infection of abdomen Status: Acute Assessment and plan: Wounds are necrotic Rakesh but appear baseline no surrounding erythema or fluctuance or signs of active infection 04/12/2018: Discharged on vancomycin 1 week for CLABSI with a coag negative staph and the central line was removed. 03/22/2018: patient was discharged on meropenem to finish a ten-day course for the Proteus, Enterobacter and Escherichia coli 02/14/2018 patient was discharged on meropenem to finish a 14 day course for the wound infection with Pseudomonas, Escherichia coli ESBL and Proteus 01/22/2018: Patient was discharged on gentamicin to finish a 14 day course for Escherichia coli ESBL, Proteus and Pseudomonas Currently patient was started on vancomycin and cefepime Consider stopping vancomycin and wait for the wound culture that the gram- negative deric to finalize if susceptible to cefepime we might continue it for 7 day course if resistant we will consider other options Monitor labs and for drug toxicity Qualifiers: Encounter type: sequela Qualified Code(s): S31.109S - Unspecified open wound of abdominal wall, unspecified quadrant without penetration into peritoneal cavity, sequela; L08.9 - Local infection of the skin and subcutaneous tissue, unspecified (2) History of central line-associated bloodstream infection (CLABSI) Status: Acute Assessment and plan: Currently blood cultures are negative and dialysis catheter in the left chest appears intact (3) Calciphylaxis Status: Chronic (4) ESRD (end stage renal disease) on dialysis Status: Chronic (5) Nausea & vomiting Status: Resolved Assessment and plan: Etiology not clear. No other associated symptoms CT abdomen pelvis concerning for possible peritoneal enhancement but clinically patient does not appear to have peritonitis Past surgical was something she ate that made her stomach upset and she said no Qualifiers: Vomiting type: unspecified Vomiting Intractability: unspecified Qualified Code(s): R11.2 - Nausea with vomiting, unspecified Infectious Disease HPI - Data of Consult Patient: known to practice within the last 3 years Consult date: 04/23/18 Requesting Physician: Gracy Rosario MD Primary Care Provider: Peter Vicente DO - Consult Narrative Reason for consult: Recent CLABSI and wound infection History of present illness: Ms. Alexis is a 43 year old female Patient is a 43-year-old woman who presented to [facility] with nausea and vomiting on 04/21/2018. We are consulted today on 04/23/2018 for chronic infections. Patient is a 43-year-old woman well-known to my service was seen on multiple previous admissions who is on hemodialysis Monday and Saturdays for incisional disease, atrial fibrillation, hypertension, hyperlipidemia, hypothyroidism and calciphylaxis with chronic infected wounds apparently came in with nausea and vomiting 2-3 days prior to admission. Since admission, patient MAXIMUM TEMPERATURE is 99.7, she had a few episodes of tachycardia, no tachypnea and hemodynamically stable. Presenting WBC was 14, 000 with normal differential no bands. Blood cultures 2 obtained on 2014 no growth to date. Left leg wound culture is growing gram-negative rods. CT of LLE revealed: Bilateral subcutaneous edema and skin ulceration. No focal drainable fluid collection. CT chest: Small bilateral pleural effusion and trace pericardial effusion. Atelectasis is noted dependently in the lower lobes. Superimposed pneumonia is considered less likely. Interstitial centrilobular nodules in the upper lobes greater on the right. CT abdomen: Areas of abdominal wall ulceration scattered body wall edema. No discrete rim-enhancing collection to suggest abdominal wall abscess. Scattered small volume ascites increased from February. Questionable peritoneal enhancement. Marked wall thickening of stomach and extensive submucosal edema new from February. Wall thickening and edema involving the colon appears mildly progressed. Correlate for gastritis/colitis. Patient is well-known to my service and previously she had we thought is aCLABSI with coag negative staph and was treated appropriately. Previous to that she had really draining infected false spike abdominal wounds that grew Proteus mirabilis S:carbapenem, zosyn and tobra , Enterobacter aerogenes S: cefepime, carbapenem and bactrim and E coli (pansensitive) in December she growth similar organisms including ESBL Escherichia coli and Pseudomonas stutzeri 04/12/2018: Discharged on vancomycin 1 week for CLABSI with a coag negative staph and the central line was removed. 03/22/2018: patient was discharged on meropenem to finish a ten-day course for the Proteus, Enterobacter and Escherichia coli 02/14/2018 patient was discharged on meropenem to finish a 14 day course for the wound infection with Pseudomonas, Escherichia coli ESBL and Proteus 01/22/2018: Patient was discharged on gentamicin to finish a 14 day course for Escherichia coli ESBL, Proteus and Pseudomonas Patient was started on combination of vancomycin and cefepime and we were asked to evaluate the patient's make further recommendations. On further evaluation patient tells me that she feels much better. Appears to be at baseline. She denies any URI symptoms. No chest pain or shortness of breath. No diarrhea or constipation. No urinary symptoms. Physical exam is unremarkable for SBP or peritonitis. CC: Gracy Rosario MD Past Med Surg Social Fam HX - Past Medical History Medical history: asthma, atrial fibrillation, diabetes, dialysis, GI bleed, hyperlipidemia, hypertension, renal disease, thyroid disease Additional medical history: ANEMIA, BLEEDING ULCER,. KIDNEY DIALYSIS Psychiatric history: no psych history - Past Surgical History Surgical History: appendectomy, cholecystectomy, thyroidectomy, transplant, other Additional surgical history: KIDNEY TRANSPLANT 2007, TUBAL LIGATION, shunt danya - Social History Smoking Status: Never smoker Smokeless Tobacco Status: No Alcohol use: none Drug use: none - Family History Father Adopted: No Family Member Ethnicity: Non- Living Status: Hx Family Cardiac Disorders: Yes Hx Family Respiratory Disorders: Yes Hx Family Cancer: Yes Hx Family GI Disorders: No Hx Family Endocrine Disorder: Yes Hx Family Neuromuscular Disorders: No Hx Family Neurologic Disorders: No Hx Family HEENT Disorders: No Hx Family Autoimmune Disorders: No Mother Adopted: No Living Status: Hx Family Cardiac Disorders: Yes Hx Family Respiratory Disorders: No Hx Family Cancer: Yes Hx Family GI Disorders: No Hx Family Endocrine Disorder: No Hx Family Neuromuscular Disorders: No Hx Family Neurologic Disorders: No Hx Family HEENT Disorders: No Hx Family Autoimmune Disorders: No Infectious Disease-CN:Meds Albuterol Sulfate [Albuterol Inhaler] 2 puff IH Q4H PRN 09/09/16 [History] Amiodarone [Cordarone] 200 mg PO DAILY 09/09/16 [History] Atorvastatin [Lipitor] 40 mg PO HS 09/09/16 [History] Budesonide/Formoterol 160/4.5 [Symbicort 160/4.5] 2 puff IH BIDR 09/09/16 [ History] Levothyroxine Sodium [Synthroid] 200 mcg PO QAM 09/09/16 [History] Omeprazole [PriLOSEC] 20 mg PO DAILY 09/09/16 [History] hydrALAZINE [HydrALAZINE] 50 mg PO BID 09/09/16 [History] Montelukast [Singulair] 10 mg PO DAILY 02/16/17 [History] Folic Acid 1 mg PO DAILY 01/07/18 [History] Metoprolol Succinate [Toprol Xl] 25 mg PO DAILY 01/07/18 [History] Apixaban [Eliquis] 5 mg PO BID #60 tablet 01/18/18 [Rx] Collagenase Oint [Santyl] 1 appl TP HS tube 02/16/18 [Rx] Darbepoetin [Aranesp] 60 mcg SQ QWEEK syringe 02/16/18 [Rx] Cinacalcet [Sensipar] 30 mg PO DAILY 30 Days #30 tablet 03/22/18 [Rx] predniSONE [PredniSONE] 10 mg PO DAILY tablet 03/22/18 [Rx] Ondansetron ODT [Zofran ODT] 4 mg SL Q8HR PRN #12 tab.rapdis 04/05/18 [Rx] Acetaminophen [Tylenol] 1,000 mg PO Q6HR PRN 04/21/18 [History] cloNIDine HCl [CloNIDine HCl] 0.1 mg PO TID 04/21/18 [History] 3 Allergy/AdvReac Type Severity Reaction Status Date / Time heparin Allergy Severe Unresponsiv Verified 04/21/18 13:20 e Warfarin [From Coumadin] Allergy Anaphylaxis Verified 04/21/18 11:18 Review of systems: 10 point review of systems done, negative other for what mentioned in history of present illness Exam - Constitutional Vitals: Temp Pulse Resp BP Pulse Ox 98.8 F 72 18 119/75 93 04/23/18 11:17 04/23/18 11:17 04/23/18 11:17 04/23/18 11:17 04/23/18 11:17 General appearance: cooperative, no acute distress, no febrile - Head Head exam: Present: atraumatic, normocephalic - Eye Eye exam: Present: EOMI, PERRL - ENT ENT exam: Present: mucous membranes dry, normal exam - Neck Neck exam: Present: full ROM. Absent: meningismus - Respiratory Respiratory exam: Present: CTAB. Absent: wheezes - Cardiovascular Cardiovascular exam: Present: RRR, +S1, +S2 Additional comments: Dialysis catheter left chest intact with no signs of infection - GI/Abdominal GI/Abdominal exam: Present: soft. Absent: guarding, rebound Additional comments: Some tenderness in the left lower quadrant but that is because that is where the wound is. - Extremities Exam Extremities exam: Present: full ROM. Absent: joint swelling - Neurological Exam Neurological exam: Present: alert, oriented X3. Absent: speech deficit - Psychiatric Psychiatric exam: Present: normal affect, normal mood Infectious Disease CN: Results - Labs CBC & Chem 7: 04/23/18 05:05 04/23/18 05:05 Cultures: Cultures 04/21/18 22:09 Wound Culture - Preliminary Left Leg Gram Negative Deric Consult Discharge Plan - Plan Referrals: Peter Vicente DO [Primary Care Provider] -
[2018-04-23] MEDS: Cefepime HCl 1,000 MG in Water for inj. (sterile) 20 ML 10 ML IVP SCH (17:18)
[2018-04-23] MEDS: Artificial Tears SOLN 15 ML BOTTLE BOTH EYES SCH (21:22)
[2018-04-23] MEDS: Silvasorb 44.4 ML TUBE TP SCH (22:00)
[2018-04-24 05:09] LABS: Basophils % 0.1 %; Hematocrit 22.7 % (35.3-44.9); Hemoglobin 7.3 g/dL (11.5-15.4); Immature Granulocytes % 1.1 % (0-4); Lymphocytes % 11.1 %; Mean Corpuscular HGB Conc 32.2 g/dL (31.6-35.5); Mean Corpuscular Hemoglobin 30.3 pg (28.0-33.3); Mean Corpuscular Volume 94.2 fL (83.0-100.0); Mean Platelet Volume 9.6 fL (9.4-12.4); Monocytes # 0.9 K/mcL (0.0-1.3); Monocytes % 9.2 %; Neutrophils # 7.2 K/mcL (1.6-8.9); Platelet Count 117 K/mcL (140-400); Red Blood Count 2.41 M/mcL (3.82-4.97); Red Cell Distribution Width 16.6 % (11.5-14.5); Segmented Neutrophils % 78.5 %
[2018-04-24 05:28] LABS: Calcium 7.3 mg/dL (8.6-10.3)
[2018-04-24] MEDS: *HR* Heparin 5,000 UNIT/ML VIAL SQ SCH (06:28)
[2018-04-24] MEDS ORDERED: 0.9 % Sodium Chloride 250 ML IVC PRN (06:36)
[2018-04-24] MEDS: Budesonide/Formoterol 160/4.5 1 PUFF INH IH SCH ×2 (07:28→21:12)
[2018-04-24] MEDS ORDERED: Silvasorb 44.4 ML TUBE TP SCH (09:00)
[2018-04-24] MEDS: Metoprolol XL (24 HR) Succ 25 MG TAB.ER.24H PO SCH (09:00)
[2018-04-24] MEDS: *HR* Amiodarone 200 MG TABLET PO SCH (09:00)
[2018-04-24] MEDS: Folic Acid 1 MG TABLET PO SCH (09:21)
[2018-04-24] MEDS: predniSONE 10 MG TABLET PO SCH (09:22)
[2018-04-24] MEDS: Artificial Tears SOLN 15 ML BOTTLE BOTH EYES SCH ×4 (09:26→22:21)
[2018-04-24] MEDS: *HR* OxyCODONE/APAP 5/325 TABLET PO PRN ×2 (09:26→22:54)
--- NOTE | 2018-04-24 09:34 | Nephrology Progress Note ---
Date of Encounter: 04/24/18 Time of Encounter: 09:32 - Assessment and Plan (1) Calciphylaxis Current Visit: No Status: Chronic Will resume sodium thiosulfate after HD treatments Need wound care consult to reassess wounds. She is home without home health or outpatient wound clinic so significant other is taking care of wounds. (2) ESRD (end stage renal disease) Current Visit: Yes Status: Chronic HD planned for today. Continue renal diet (3) Noncompliance with renal dialysis Current Visit: No Status: Chronic Often misses HD treatments. (4) Nausea & vomiting Current Visit: No Status: Resolved Per primary team Not sure if line sepsis related, await blood culture results. Qualifiers: Vomiting type: unspecified Vomiting Intractability: unspecified Qualified Code(s): R11.2 - Nausea with vomiting, unspecified (5) Hyperkalemia Current Visit: Yes Status: Acute K is 5 today, will correct with HD. Renal diet, if able to eat. Subjective Principal diagnosis: nausea/vomiting Interval history: Pt seen and examined. Admits nausea is much better. Denies SOB/CP. Denies diarrhea/vomiting. Objective - Vital Signs Vital signs: Vital Signs Temp Pulse Resp BP Pulse Ox 04/24/18 07:11 98.4 F 72 16 114/48 97 04/24/18 05:31 98.4 F 73 16 138/79 97 04/24/18 01:04 98.7 F 75 16 123/61 96 04/23/18 21:13 98.9 F 78 16 134/54 97 04/23/18 19:30 16 96 04/23/18 16:39 98.8 F 73 18 131/80 96 04/23/18 11:17 98.8 F 72 18 119/75 93 Intake and Output 04/23/18 04/24/18 04/24/18 23:59 07:59 15:59 Intake Total 240 / 240 Balance 240 / 240 Intake: IV Fluids Maxipime 1,000 MG In Water for inj. (sterile) 10 ML @ 300 mls/ hr IVP Q24H OSMAR Rx#:[id number] Oral 240 / 240 Other: Meal Breakfast Percent of Meal Consumed 100% Weight 82.6 kg Blood Glucose* 156 85 Patient Weight 04/24/18 23:59 Weight 82.6 kg - General Appearance General appearance: Present: well-developed, well-nourished EENT: Present: ATNC, hearing intact, vision intact Neck: Present: supple Respiratory: Present: clear Cardiology: Present: no edema, normal S1, normal S2 Dialysis Vascular Access: Venous Catheter (Tunneled Line, DRSG C/D/I) Gastrointestinal: Present: normoactive bowel sounds, no tenderness, no guarding Integumentary: Present: no rash, warm and dry Neurologic: Present: alert and oriented x3 Psychiatric: Present: mood/affect appropriate, cooperative - Lab 04/24/18 04:35 04/24/18 04:35 Most recent lab results Calcium 7.3 mg/dL (8.6-10.3) L 04/24/18 04:35 Phosphorus 4.4 mg/dL (2.7-4.5) 04/21/18 12:53 Magnesium 1.5 mg/dL (1.6-2.6) L 04/21/18 12:53 Consult Discharge Plan - Plan Referrals: Peter Vicente DO [Primary Care Provider] -
--- NOTE | 2018-04-24 10:24 | Electrocardiograph Report ---
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
--- NOTE | 2018-04-24 11:04 | General Surgery Progress Note ---
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 Majority of the chronic wounds on abdomen and bilateral thighs have healthy appearing base with potential to heal if she receives proper wound care follow up after discharge. - continue wound care with dressing orders of dakins soaked kerlix - wound culture of right lower extremity pending; abdomen results gram negative rods and left leg proteus mirabilis - appreciate recommendations from ID to stop vanc and continue cefepime - no surgical interventions planned at this time Patient should follow up in wound clinic after discharge. Surgery will sign off at this time, thank you for involving us in this patient's care. Please feel free to contact us with any questions. (2) Wound, open, abdominal wall, anterior Current Visit: No Status: Acute Qualifiers: Encounter type: initial encounter Qualified Code(s): S31.109A - Unspecified open wound of abdominal wall, unspecified quadrant without penetration into peritoneal cavity, initial encounter (3) Wounds, multiple Current Visit: No Status: Chronic Subjective Patient reports: still having pain (worse in left leg,she can not feel wounds on abdomen or right leg), tolerating a regular diet, afebrile Objective Vital Signs - Last 8 Hours Temp Pulse Resp BP Pulse Ox 04/24/18 07:11 98.4 F 72 16 114/48 97 04/24/18 05:31 98.4 F 73 16 138/79 97 Intake and Output 04/23/18 04/24/18 04/24/18 23:59 07:59 15:59 Intake Total 240 / 240 Balance 240 / 240 Intake: IV Fluids Maxipime 1,000 MG In Water for inj. (sterile) 10 ML @ 300 mls/ hr IVP Q24H [facility] Rx#:[id number] Oral 240 / 240 Other: Meal Breakfast Percent of Meal Consumed 100% Weight 82.6 kg Blood Glucose* 156 85 Patient Weight 04/24/18 23:59 Weight 82.6 kg - General physical appearance well developed, moderate pain, chronically ill, obese - Eyes normal ocular movement - ENT normal pinna, normal nares, normal mucosa - Respiratory normal expansion, normal respiratory effort, clear to auscultation - Cardiovascular Cardiovascular exam: Present: RRR, distant heart sounds - Abdomen Abdomen: Present: bowel sounds present, soft Hernia: none - Incision Incision: Present: red, open. Absent: draining, purulent - Integumentary no rash, no growths, no abnormal pigmentation - Neurologic CN 2-12 grossly intact, normal coordination, normal sensation - Musculoskeletal normal gait, normal posture - Psychiatric oriented to person, oriented to place, speech is normal, memory intact - Labs 04/24/18 04:35 04/24/18 04:35 Diabetes panel 04/24/18 Range/Units 04:35 Sodium 136 (136-145) mEq/L Potassium 5.0 (3.5-5.1) mEq/L Chloride 100 (98-107) mEq/L Carbon Dioxide 23 (23-29) mEq/L BUN 26 H (6-20) mg/dL Creatinine 6.86 H (0.60-1.20) mg/dL Glucose 123 H (70-105) mg/dL Calcium 7.3 L (8.6-10.3) mg/dL Calcium panel 04/24/18 Range/Units 04:35 Calcium 7.3 L (8.6-10.3) mg/dL Pituitary panel 04/24/18 Range/Units 04:35 Sodium 136 (136-145) mEq/L Potassium 5.0 (3.5-5.1) mEq/L Chloride 100 (98-107) mEq/L Carbon Dioxide 23 (23-29) mEq/L BUN 26 H (6-20) mg/dL Creatinine 6.86 H (0.60-1.20) mg/dL Glucose 123 H (70-105) mg/dL Calcium 7.3 L (8.6-10.3) mg/dL Adrenal panel 04/24/18 Range/Units 04:35 Sodium 136 (136-145) mEq/L Potassium 5.0 (3.5-5.1) mEq/L Chloride 100 (98-107) mEq/L Carbon Dioxide 23 (23-29) mEq/L BUN 26 H (6-20) mg/dL Creatinine 6.86 H (0.60-1.20) mg/dL Glucose 123 H (70-105) mg/dL Calcium 7.3 L (8.6-10.3) mg/dL Consult Discharge Plan - Plan Referrals: Peter Vicente DO [Primary Care Provider] -
--- NOTE | 2018-04-24 11:50 | Internal Med Progress Note ---
Hospitalist Progress Note - Encounter Date of Encounter: 04/24/18 Time of Encounter: 09:00 - Subjective Interval History: Pt laying on bed comfortably. Denies Abd pain/nausea. No fever in last 24 hours. - Exam Vitals: Temp Pulse Resp BP Pulse Ox 98.7 F 74 16 117/47 94 04/24/18 11:28 04/24/18 11:28 04/24/18 11:28 04/24/18 11:28 04/24/18 11:28 Exam: Constitutional: Vitals as noted. No Apparent Distress. Eyes : Sclera white, conjunctiva clear, no lid lag, PEARLA. ENT : Grossly normal hearing. Oropharyngeal exam unremarkable. Moist mucus membranes. No JVD. no cervical lymphadenopathy. no thyromegaly or mass. Respiratory : Clear to auscultation bilaterally. No accessory muscle use, rales , rhonchi or wheezes Cardiovascular : RRR, +S1, +S2. no murmur, gallop, rubs. No chest wall tenderness GI/Abdominal : Soft, obese, normal bowel sounds, soft, no peritoneal signs. Musculoskeletal: Wasting of her lower extremity. Left leg swelling, no calf tenderness Neurological: AAO X3, CN II-XII grossly intact, grossly normal motor and sensory exam. Skin: Multiple wounds on Lt thigh and Rt thigh associated erythema and tenderness with pustular discharge and some necrotic material. 20x15 cm wound on Rt and Left abdomen with pustular drainage. - Assessment and Plan (1) Cellulitis Current Visit: No Status: Acute Assessment and Plan: Due to Calciphylaxis - Cont wound care - Cont Sodium Thiosulfate during HD - F/U ID recommendation for Abx. (2) ESRD (end stage renal disease) Current Visit: Yes Status: Chronic Assessment and Plan: - Cont HD per nephro - continue cinacalcet (3) DVT prophylaxis Current Visit: No Status: Acute Assessment and Plan: On Eliquis (4) Afib Current Visit: No Status: Chronic Assessment and Plan: - c/w home amiodarone and metoprolol - On Eliquis for AC (5) Nausea & vomiting Current Visit: No Status: Resolved Assessment and Plan: Possibly from infection from wound or Blood stream infection - Blood culture from 04/07/18 and 04/09/18 positive for Staph epi. Did not finish course. Had 5 days left of treatment before she left AMA. - Repeat blood culture no growth so far. Wound culture shows Gram negative rods. - ID and Surgery consulted - Discussed with ID, will d/c vanco. On cefepime now, will follow ID recommendation for further Abx. - Nausea has improved. (6) Hypothyroidism Current Visit: No Status: Chronic Assessment and Plan: -c/w home levothyroxin (7) Hypertension Current Visit: No Status: Chronic Assessment and Plan: - c/w home hydralazine (8) Asthma Current Visit: No Status: Chronic Assessment and Plan: -c/w albuterol as needed - c/w montelukast (9) Wounds, multiple Current Visit: No Status: Chronic Assessment and Plan: as above (10) CLABSI (central line-associated bloodstream infection) Current Visit: No Status: Acute Assessment and Plan: Catheter has been replaced. Repeated blood culture no growth so far. Per ID will d/c vanco. (11) Hypoglycemia Current Visit: Yes Status: Acute Assessment and Plan: - Low blood sugar in ER. resolved now. - continue renal diet - Time Spent with Patient Total time spent is greater than 50% in coordination of care (as documented) at patient's floor/unit and/or counseling patient: 30 min 25 - 35 minutes Plan of Care Discussed with: patient Internal Medicine: Result - Labs CBC & Chem 7: 04/24/18 04:35 04/24/18 04:35 Labs: Short CBC 04/24/18 Range/Units 04:35 WBC 9.2 (4.3-11.1) K/mcL Hgb 7.3 L (11.5-15.4) g/dL Hct 22.7 L (35.3-44.9) % Plt Count 117 L (140-400) K/mcL Neutrophils # 7.2 (1.6-8.9) K/mcL BMP 04/24/18 04:35 Sodium 136 Potassium 5.0 Chloride 100 Carbon Dioxide 23 BUN 26 H Creatinine 6.86 H Glucose 123 H Calcium 7.3 L - ABG Interpretation ABG results: PT/INR, D-dimer PT 14.4 Seconds (9.4-12.1) H 04/21/18 12:53 Consult Discharge Plan - Plan Referrals: Peter Vicente DO [Primary Care Provider] - (1) Cellulitis Qualifiers: Site of cellulitis: unspecified site Qualified Code(s): L03.90 - Cellulitis, unspecified (4) Afib Qualifiers: Atrial fibrillation type: paroxysmal Qualified Code(s): I48.0 - Paroxysmal atrial fibrillation (5) Nausea & vomiting Qualifiers: Vomiting type: unspecified Vomiting Intractability: unspecified Qualified Code(s): R11.2 - Nausea with vomiting, unspecified (6) Hypothyroidism Qualifiers: Hypothyroidism type: unspecified Qualified Code(s): E03.9 - Hypothyroidism, unspecified (7) Hypertension Qualifiers: Hypertension type: essential hypertension Qualified Code(s): I10 - Essential (primary) hypertension (8) Asthma Qualifiers: Asthma severity: unspecified severity Asthma persistence: unspecified Asthma complication type: unspecified Qualified Code(s): J45.909 - Unspecified asthma, uncomplicated (10) CLABSI (central line-associated bloodstream infection) Qualifiers: Encounter type: subsequent encounter Qualified Code(s): T80.211D - Bloodstream infection due to central venous catheter, subsequent encounter
--- NOTE | 2018-04-24 13:01 | Infectious Disease Progress No ---
Date of Encounter: 04/24/18 Time of Encounter: 12:00 - Assessment and Plan (1) Chronic wound infection of abdomen Current Visit: Yes Status: Acute CT of the abdomen and pelvis negative for underlying abscess. Left leg wound culture positive for P. mirabilis (S: carbapenems, Tobramycin, and Zosyn). Abdominal wound culture pending, but gram stain shows GNR. Wounds are necrotic and foul-smelling, but appear at baseline and are without surrounding erythema, fluctuance, or active signs of infection. The wounds are likely colonized with bacteria, but are not the cause of the patient's symptoms. 04/12/2018: Discharged on vancomycin 1 week for CLABSI with a coag negative staph and the central line was removed. --> patient signed out AMA from the hospital and did not complete course of treatment. 03/22/2018: patient was discharged on meropenem to finish a ten-day course for the Proteus, Enterobacter and Escherichia coli. 02/14/2018 patient was discharged on meropenem to finish a 14 day course for the wound infection with Pseudomonas, Escherichia coli ESBL and Proteus. 01/22/2018: Patient was discharged on gentamicin to finish a 14 day course for Escherichia coli ESBL, Proteus and Pseudomonas. Discontinue Vancomycin. Discontinue Cefepime. Continue aggressive wound care. No further recommendations from the ID team. Will sign off. Please re-consult if needed. Qualifiers: Encounter type: sequela Qualified Code(s): S31.109S - Unspecified open wound of abdominal wall, unspecified quadrant without penetration into peritoneal cavity, sequela; L08.9 - Local infection of the skin and subcutaneous tissue, unspecified (2) Gastritis Current Visit: Yes Status: Acute CT of the abdomen and pelvis showed marked wall thickening of the stomach with extensive submucosal edema, new from February. Recommend GI to evaluate. Qualifiers: Gastritis type: unspecified gastritis Chronicity: acute Gastritis bleeding: presence of bleeding unspecified Qualified Code(s): K29.00 - Acute gastritis without bleeding (3) Nausea & vomiting Current Visit: No Status: Resolved Likely secondary to gastritis. Improved. Sympomatic management per the primary team. Qualifiers: Vomiting type: unspecified Vomiting Intractability: unspecified Qualified Code(s): R11.2 - Nausea with vomiting, unspecified (4) Anemia Current Visit: No Status: Chronic Hgb down to 7.3 today. Management per the primary and nephrology teams. Qualifiers: Anemia type: due to chronic kidney disease Chronic kidney disease stage: on chronic dialysis Qualified Code(s): N18.6 - End stage renal disease; D63.1 - Anemia in chronic kidney disease; Z99.2 - Dependence on renal dialysis (5) Calciphylaxis Current Visit: No Status: Chronic General surgery consulted to assist with wound management. Sodium thiosulfate per the nephrology team. (6) ESRD (end stage renal disease) on dialysis Current Visit: No Status: Chronic Nephrology consulted and following. (7) History of central line-associated bloodstream infection (CLABSI) Current Visit: Yes Status: Acute Status post line exchange with recommendations for IV Vanc. Patient left the hospital AMA and did not complete the course of IV antibiotics. Blood cultures drawn 04/21/18 are NGTD x 2 sets. No further treatment required. - Subjective Interval history: Patient seen and examined. No acute events noted overnight. Patient states overall she feels well. Denies pain at this time. Denies chest pain, shortness of breath, or cough. Denies nausea, vomiting, or diarrhea. Denies abdominal pain , appetite changes. States she does not make urine. Denies oral thrush or new skin lesions. States her calciphylaxis wounds are improved. Infect Dis PN-Objective Data - Labs CBC & Chem 7: 04/24/18 04:35 04/24/18 04:35 Labs: Laboratory Results - last 24 hr 04/21/18 04/21/18 04/21/18 20:46 20:48 21:33 WBC RBC Hgb Hct MCV MCH MCHC RDW Plt Count MPV Immature Gran % Seg Neutrophils % Lymphocytes % Monocytes % Eosinophils % Basophils % Neutrophils # Lymphocytes # Monocytes # Eosinophils # Basophils # Sodium Potassium Chloride Carbon Dioxide BUN Creatinine Est GFR ( Amer) Est GFR (Non-Af Amer) BUN/Creatinine Ratio Glucose POC Glucose 47 L* 46 L* 51 L Calculated Osmolality Calcium Random Vancomycin 04/21/18 04/21/18 04/21/18 21:34 22:13 23:07 WBC RBC Hgb Hct MCV MCH MCHC RDW Plt Count MPV Immature Gran % Seg Neutrophils % Lymphocytes % Monocytes % Eosinophils % Basophils % Neutrophils # Lymphocytes # Monocytes # Eosinophils # Basophils # Sodium Potassium Chloride Carbon Dioxide BUN Creatinine Est GFR ( Amer) Est GFR (Non-Af Amer) BUN/Creatinine Ratio Glucose POC Glucose 49 L* 64 L 57 L Calculated Osmolality Calcium Random Vancomycin 04/22/18 04/22/18 04/22/18 00:04 11:33 16:18 WBC RBC Hgb Hct MCV MCH MCHC RDW Plt Count MPV Immature Gran % Seg Neutrophils % Lymphocytes % Monocytes % Eosinophils % Basophils % Neutrophils # Lymphocytes # Monocytes # Eosinophils # Basophils # Sodium Potassium Chloride Carbon Dioxide BUN Creatinine Est GFR ( Amer) Est GFR (Non-Af Amer) BUN/Creatinine Ratio Glucose POC Glucose 82 78 143 H Calculated Osmolality Calcium Random Vancomycin 04/23/18 04/23/18 04/23/18 07:56 11:23 16:44 WBC RBC Hgb Hct MCV MCH MCHC RDW Plt Count MPV Immature Gran % Seg Neutrophils % Lymphocytes % Monocytes % Eosinophils % Basophils % Neutrophils # Lymphocytes # Monocytes # Eosinophils # Basophils # Sodium Potassium Chloride Carbon Dioxide BUN Creatinine Est GFR ( Amer) Est GFR (Non-Af Amer) BUN/Creatinine Ratio Glucose POC Glucose 92 121 H 107 H Calculated Osmolality Calcium Random Vancomycin 04/23/18 04/24/18 04/24/18 21:06 04:35 04:35 WBC 9.2 RBC 2.41 L Hgb 7.3 L Hct 22.7 L MCV 94.2 MCH 30.3 MCHC 32.2 RDW 16.6 H Plt Count 117 L MPV 9.6 Immature Gran % 1.1 Seg Neutrophils % 78.5 Lymphocytes % 11.1 Monocytes % 9.2 Eosinophils % 0.0 Basophils % 0.1 Neutrophils # 7.2 Lymphocytes # 1.0 Monocytes # 0.9 Eosinophils # 0.0 Basophils # 0.0 Sodium Potassium Chloride Carbon Dioxide BUN Creatinine Est GFR ( Amer) Est GFR (Non-Af Amer) BUN/Creatinine Ratio Glucose POC Glucose 156 H Calculated Osmolality Calcium Random Vancomycin 18 04/24/18 04:35 WBC RBC Hgb Hct MCV MCH MCHC RDW Plt Count MPV Immature Gran % Seg Neutrophils % Lymphocytes % Monocytes % Eosinophils % Basophils % Neutrophils # Lymphocytes # Monocytes # Eosinophils # Basophils # Sodium 136 Potassium 5.0 Chloride 100 Carbon Dioxide 23 BUN 26 H Creatinine 6.86 H Est GFR ( Amer) 8 L Est GFR (Non-Af Amer) 7 L BUN/Creatinine Ratio 4 L Glucose 123 H POC Glucose Calculated Osmolality 288 Calcium 7.3 L Random Vancomycin Cultures: Cultures 04/21/18 22:09 Wound Culture - Final Left Leg Proteus mirabilis 04/22/18 11:50 Wound Culture - Preliminary Abdomen Gram Negative Deric Exam - Constitutional Vitals: Temp Pulse Resp BP Pulse Ox 98.7 F 74 16 117/47 94 04/24/18 11:28 04/24/18 11:28 04/24/18 11:28 04/24/18 11:28 04/24/18 11:28 General appearance: cooperative, no acute distress, obese - Head Head exam: Present: atraumatic, normal inspection, normocephalic - Eye Eye exam: Present: EOMI, normal appearance, PERRL Pupils: Present: normal accommodation - ENT ENT exam: Present: mucous membranes moist - Neck Neck exam: Present: normal inspection - Respiratory Respiratory exam: Present: CTAB. Absent: rales, respiratory distress, rhonchi, wheezes - Cardiovascular Cardiovascular exam: Present: irregular rhythm, tachycardia - GI/Abdominal GI/Abdominal exam: Present: distended, normal bowel sounds, soft. Absent: tenderness - Extremities Exam Extremities exam: Absent: joint swelling, normal inspection (Dressings noted to the bilateral upper thighs are C/D/I.), pedal edema, tenderness - Neurological Exam Neurological exam: Present: alert, oriented X3, no focal deficits - Psychiatric Psychiatric exam: Present: normal affect, normal mood - Skin Skin exam: Present: dry, intact, normal color, warm Additional comments: Abdominal and upper thigh dressings are C/D/I. - Additional findings Additional findings: Perma-cath noted to the left upper chest with transparent dressing C/D/I. Consult Discharge Plan - Plan Referrals: Peter Vicente DO [Primary Care Provider] - - Attending Attestation I examined this patient and my medical decision-making was reviewed with the Resident Physician. I agree with the documented findings, disposition and treatment plan as described except to the extent set forth below.
[2018-04-24] MEDS ORDERED: Aminoglycoside Consult 1 EACH MC ONE (13:27)
[2018-04-24] MEDS: 0.9 % Sodium Chloride 1,000 ML PRIME SCH (14:10)
[2018-04-24] MEDS ORDERED: Sodium Thiosulfate 25 GM in EMPTY BAG 1 EACH IVPB SCH (16:00)
[2018-04-24] MEDS ORDERED: Vancomycin 500 MG in 0.9 % Sodium Chloride Mini Bag 100 ML IVPB ONE (16:00)
[2018-04-24] MEDS: Cefepime HCl 1,000 MG in Water for inj. (sterile) 20 ML 10 ML IVP SCH (16:24)
[2018-04-24] MEDS: Sodium Thiosulfate 25 GM in EMPTY BAG 1 EACH IVPB SCH ×2 (17:15→18:29)
[2018-04-24] MEDS: Apixaban 5 MG TABLET PO SCH (22:21)
[2018-04-24] MEDS: Silvasorb 44.4 ML TUBE TP SCH (22:22)
[2018-04-25 05:36] LABS: Basophils % 0.1 %; Eosinophils # 0.1 K/mcL (0.0-0.6); Eosinophils % 1.8 %; Hematocrit 21.6 % (35.3-44.9); Immature Granulocytes % 1.1 % (0-4); Lymphocytes # 1.2 K/mcL (0.6-4.6); Lymphocytes % 16.5 %; Mean Corpuscular HGB Conc 32.4 g/dL (31.6-35.5); Mean Corpuscular Hemoglobin 30.4 pg (28.0-33.3); Mean Corpuscular Volume 93.9 fL (83.0-100.0); Mean Platelet Volume 10.2 fL (9.4-12.4); Monocytes # 1.1 K/mcL (0.0-1.3); Monocytes % 15.3 %; Neutrophils # 4.6 K/mcL (1.6-8.9); Platelet Count 120 K/mcL (140-400); Red Cell Distribution Width 16.7 % (11.5-14.5); Segmented Neutrophils % 65.2 %
[2018-04-25 05:47] LABS: Calcium 7.2 mg/dL (8.6-10.3); Potassium 3.8 mEq/L (3.5-5.1)
[2018-04-25] MEDS: Budesonide/Formoterol 160/4.5 1 PUFF INH IH SCH ×2 (07:43→22:27)
[2018-04-25] MEDS: Metoprolol XL (24 HR) Succ 25 MG TAB.ER.24H PO SCH (09:40)
[2018-04-25] MEDS: *HR* Amiodarone 200 MG TABLET PO SCH (09:40)
[2018-04-25] MEDS: Apixaban 5 MG TABLET PO SCH (09:40)
[2018-04-25] MEDS: Folic Acid 1 MG TABLET PO SCH (09:40)
[2018-04-25] MEDS: predniSONE 10 MG TABLET PO SCH (09:40)
[2018-04-25] MEDS: Artificial Tears SOLN 15 ML BOTTLE BOTH EYES SCH ×4 (09:41→23:16)
--- NOTE | 2018-04-25 09:59 | Nephrology Progress Note ---
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 (2) ESRD (end stage renal disease) Current Visit: Yes Status: Chronic HD planned for today. Continue renal diet. Avoid nephrotoxins and renal dose. Strict I/O. (3) Noncompliance with renal dialysis Current Visit: No Status: Chronic Often misses HD treatments. (4) Nausea & vomiting Current Visit: No Status: Resolved Per primary team All Blood cultures are negative, supportive care for nausea. Qualifiers: Vomiting type: unspecified Vomiting Intractability: unspecified Qualified Code(s): R11.2 - Nausea with vomiting, unspecified (5) Hyperkalemia Current Visit: Yes Status: Acute K is 3.8 today. Renal diet, if able to eat. Subjective Principal diagnosis: nausea/vomiting Interval history: Pt seen and examined. States she is feeling a little better today. Denies vomiting/diarrhea, admits to nausea. Objective - Vital Signs Vital signs: Vital Signs Temp Pulse Resp BP Pulse Ox 04/25/18 07:54 18 92 04/25/18 06:31 98.6 F 76 18 154/88 93 04/25/18 04:08 98.7 F 75 16 154/83 95 04/24/18 23:36 99.1 F 80 17 156/85 96 04/24/18 21:12 18 95 04/24/18 18:57 98.9 F 78 17 156/88 96 04/24/18 18:02 98.2 F 18 164/70 04/24/18 17:45 164/70 04/24/18 17:30 158/86 04/24/18 17:15 173/52 04/24/18 17:00 180/52 04/24/18 16:45 153/79 04/24/18 16:30 171/91 04/24/18 16:15 170/78 04/24/18 16:00 18 162/63 92 04/24/18 15:45 159/68 04/24/18 15:30 175/73 04/24/18 15:15 158/72 04/24/18 15:00 176/74 04/24/18 14:45 161/62 04/24/18 14:30 159/64 04/24/18 14:15 98.7 F 18 158/60 04/24/18 11:28 98.7 F 74 16 117/47 94 Intake and Output 04/24/18 04/25/18 04/25/18 23:59 07:59 15:59 Intake Total 60 / 60 Output Total 1600 / 1600 0 / 0 Balance -1600 / -1600 60 / 60 Intake: Oral 60 / 60 Output: Urine 0 / 0 0 / 0 Total Dialysis (HD) Output 1600 / 1600 Other: Weight 83.2 kg Blood Glucose* 112 85 Hemodialysis Net Fluid Removed 1000 (mL) - General Appearance General appearance: Present: well-developed, well-nourished EENT: Present: ATNC, hearing intact, vision intact Neck: Present: supple Respiratory: Present: clear Cardiology: Present: no edema, normal S1, normal S2 Dialysis Vascular Access: Venous Catheter (Tunneled Line, DRSG C/D/I) Integumentary: Present: no rash, warm and dry Neurologic: Present: alert and oriented x3 Psychiatric: Present: mood/affect appropriate, cooperative - Lab 04/25/18 04:58 04/25/18 04:58 Most recent lab results Calcium 7.2 mg/dL (8.6-10.3) L 04/25/18 04:58 Phosphorus 4.4 mg/dL (2.7-4.5) 04/21/18 12:53 Magnesium 1.5 mg/dL (1.6-2.6) L 04/21/18 12:53 Consult Discharge Plan - Plan Referrals: Peter Vicente DO [Primary Care Provider] -
--- NOTE | 2018-04-25 11:20 | Gastroenterology Consult Note ---
<ByersPasquale Barrera - Last Filed: 04/25/18 11:18> Date of Encounter: 04/25/18 Time of Encounter: 09:15 - Assessment and plan (1) Early satiety Current Visit: Yes Status: Acute Assessment and plan: Could be due to gastroparesis. Check gastric emptying study. (2) Nausea & vomiting Current Visit: No Status: Resolved Assessment and plan: Patient with DM. N&V could be due to gastroparesis. Check gastric emptying study. Plan for EGD tomorrow to r/o esophagitis, gastritis, duodenitis, PUD, MW tear, or AVM. Keep patient NPO at midnight. Qualifiers: Vomiting type: unspecified Vomiting Intractability: unspecified Qualified Code(s): R11.2 - Nausea with vomiting, unspecified (3) Anemia Current Visit: No Status: Chronic Assessment and plan: Hgb on admission 11.5 and today Hgb 7. Check fecal occult blood test. Continue to monitor CBC and transfuse PRBC as needed. Plan for EGD tomorrow to r/o esophagitis, gastritis, duodenitis, PUD, MW tear, or AVM. Keep patient NPO. 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 (5) ESRD (end stage renal disease) Current Visit: Yes Status: Chronic Assessment and plan: Management per Nephrology. - Time Spent With Patient Total time spent is greater than 50% in coordination of care (as documented) at patient's floor/unit and/or counseling patient: GI History of Present Illness - Data of Consult Patient: known to practice within the last 3 years Consult date: 04/25/18 Requesting Physician: Gracy Rosario MD - Consult Narrative Reason for consult: nausea, vomiting History of present illness: Ms. 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 She also reports early satiety. CT A/P 04/21 showed areas of abdominal wall ulceration and scattered body wall edema without evidence of a bscess, scattered small volume ascites, marked wall thickening of the stomach with extensive submucosal edema, wall thickening and edema involving the colon appears mildly progressed. We were consulted on 04/24 to evaluate her nausea, vomiting, and colitis. Patient notably had CLABSI on her last admission. Blood cultures from her permacath staphylococcus epidermidis. She did not finish her course of vancomycin at that time and left AMA because she felt tired of the hospital. Infectious Disease has been consulted. Procedures: Colonoscopy 02/14/2018 Dr. Strong: Diverticulosis otherwise negative. EGD 02/14/2018 Dr. Strong: Atrophic gastric mucosa otherwise unremarkable EGD 11/28/2008 Dr. Chang: Gastritis, H pylori negative. Colonoscopy 11/28/2008 Dr. Chang: Minimal inflammation, no IBD or microscopic colitis. NSAIDs: None Anticoagulation: Eliquis Past Med Surg Social Fam HX - Past Medical History Medical history: asthma, atrial fibrillation, diabetes, dialysis, GI bleed, hyperlipidemia, hypertension, renal disease, thyroid disease Additional medical history: ANEMIA, BLEEDING ULCER,. KIDNEY DIALYSIS Psychiatric history: no psych history - Past Surgical History Surgical History: appendectomy, cholecystectomy, thyroidectomy, transplant, other Additional surgical history: KIDNEY TRANSPLANT 2007, TUBAL LIGATION, shunt danya - Social History Smoking Status: Never smoker Smokeless Tobacco Status: No Alcohol use: none Drug use: none - Family History Father Adopted: No Family Member Ethnicity: Non- Living Status: Hx Family Cardiac Disorders: Yes Hx Family Respiratory Disorders: Yes Hx Family Cancer: Yes Hx Family GI Disorders: No Hx Family Endocrine Disorder: Yes Hx Family Neuromuscular Disorders: No Hx Family Neurologic Disorders: No Hx Family HEENT Disorders: No Hx Family Autoimmune Disorders: No Mother Adopted: No Living Status: Hx Family Cardiac Disorders: Yes Hx Family Respiratory Disorders: No Hx Family Cancer: Yes Hx Family GI Disorders: No Hx Family Endocrine Disorder: No Hx Family Neuromuscular Disorders: No Hx Family Neurologic Disorders: No Hx Family HEENT Disorders: No Hx Family Autoimmune Disorders: No - Gastrointestinal Gastrointestinal: Present: as per HPI - Constitutional Constitutional: as per HPI - EENT Eyes: as per HPI Ears: Present: as per HPI Nose, mouth and throat: Present: as per HPI - Cardiovascular Cardiovascular ROS: Present: as per HPI - Respiratory Respiratory IM: Present: as per HPI - Genitourinary Genitourinary: Absent: change in color, Urinary frequency - Neurological ROS Neurological GI: Present: as per HPI - Hematologic/Lymphatic Hematologic/Lymphatic pediatric: Present: as per HPI - Musculoskeletal Musculoskeletal ROS GI: Present: as per HPI - Integumentary Integumentary GI: Present: as per HPI - Psychiatric ROS Psychiatric GI: Present: as per HPI - Endocrine Endocrine IM: Present: as per HPI - Constitutional Vitals: Temp Pulse Resp BP Pulse Ox 98.6 F 76 18 154/88 92 04/25/18 06:31 04/25/18 06:31 04/25/18 07:54 04/25/18 06:31 04/25/18 07:54 General appearance: Present: cooperative, A&O X 3, no acute distress, answers questions appropriately - Head Head exam: Present: atraumatic, normocephalic - Eye Eye exam: Present: normal appearance, sclera anicteric - ENT ENT exam: Present: mucous membranes moist - Neck Neck exam general surgery: Present: normal inspection, trachea midline - Respiratory Respiratory exam: Present: CTAB. Absent: rales, rhonchi - Cardiovascular Cardiovascular exam: Present: RRR, +S1, +S2 - GI/Abdominal GI/Abdominal exam: Present: normal bowel sounds, soft, tenderness (LLQ), no peritoneal signs. Absent: distended, firm, guarding - Rectal Rectal exam: Present: deferred - Extremities Exam Extremities exam: Present: warm - Neurological Exam Neurological exam: Present: no focal deficits - Psychiatric Psychiatric exam: Present: normal affect, normal mood - Skin Skin exam: Present: dry, intact, normal color, warm Results - Labs CBC & Chem 7: 04/25/18 04:58 04/25/18 04:58 Labs: Last Result Calcium 7.2 mg/dL (8.6-10.3) L 04/25/18 04:58 Entire Visit Hgb 7.0 g/dL (11.5-15.4) L 04/25/18 04:58 Hct 21.6 % (35.3-44.9) L 04/25/18 04:58 PT 14.4 Seconds (9.4-12.1) H 04/21/18 12:53 Total Bilirubin 0.5 mg/dL (0.3-1.0) 04/21/18 12:53 AST 10 Units/L (13-39) L 04/21/18 12:53 ALT 3 Units/L (7-52) L 04/21/18 12:53 - ABG ABG results: PT/INR, D-dimer PT 14.4 Seconds (9.4-12.1) H 04/21/18 12:53 Consult Discharge Plan - Plan Referrals: Peter Vicente DO [Primary Care Provider] - <Julio Mejia - Last Filed: 05/06/18 21:53> - Time Spent With Patient Total time spent is greater than 50% in coordination of care (as documented) at patient's floor/unit and/or counseling patient: GI History of Present Illness - Data of Consult Requesting Physician: John Singleton MD - Consult Narrative History of present illness: Ms. Alexis is a 43 year old female - Constitutional Vitals: Temp Pulse Resp BP Pulse Ox 98.7 F 77 16 130/69 90 05/06/18 20:12 05/06/18 20:12 05/06/18 20:12 05/06/18 20:12 05/06/18 20:12 Results - Labs CBC & Chem 7: 05/06/18 09:35 05/06/18 09:35 Labs: Last Result Calcium 7.2 mg/dL (8.6-10.3) L 05/06/18 09:35 Iron 55 mcg/dL (50-170) 04/27/18 04:50 % Saturation TNP 04/27/18 04:50 Transferrin < 75 mg/dL (203-362) L 04/27/18 04:50 Ferritin 1048 ng/mL (10-120) H 04/27/18 04:50 Vitamin B12 1314 pg/mL (250-1100) H 04/27/18 04:50 Folate 5.7 ng/mL (3.0-16.0) 04/27/18 04:50 Stool Occult Blood Negative (Negative) 05/06/18 15:30 Entire Visit Hgb 7.5 g/dL (11.5-15.4) L 05/06/18 09:35 Hct 23.5 % (35.3-44.9) L 05/06/18 09:35 PT 14.6 Seconds (9.4-12.1) H 04/30/18 04:29 Ferritin 1048 ng/mL (10-120) H 04/27/18 04:50 Total Bilirubin 0.5 mg/dL (0.3-1.0) 04/21/18 12:53 AST 10 Units/L (13-39) L 04/21/18 12:53 ALT 3 Units/L (7-52) L 04/21/18 12:53 Folate 5.7 ng/mL (3.0-16.0) 04/27/18 04:50 - ABG ABG results: PT/INR, D-dimer PT 14.6 Seconds (9.4-12.1) H 04/30/18 04:29 - Attending Attestation Suspect severe gastroparesis. Plan EGD. Discussed with patient and answered all questions. I examined this patient and my medical decision-making was reviewed with the Resident Physician. I agree with the documented findings, disposition and treatment plan as described except to the extent set forth below.
--- NOTE | 2018-04-25 12:02 | Internal Med Progress Note ---
Hospitalist Progress Note - Encounter Date of Encounter: 04/25/18 Time of Encounter: 09:00 - Subjective Interval History: Pt laying on bed comfortably. Denies Abd pain/nausea. No fever, vitals stable. - Exam Vitals: Temp Pulse Resp BP Pulse Ox 98.6 F 76 18 154/88 92 04/25/18 06:31 04/25/18 06:31 04/25/18 07:54 04/25/18 06:31 04/25/18 07:54 Exam: Constitutional: Vitals as noted. No Apparent Distress. Eyes : Sclera white, conjunctiva clear, no lid lag, PEARLA. ENT : Grossly normal hearing. Oropharyngeal exam unremarkable. Moist mucus membranes. No JVD. no cervical lymphadenopathy. no thyromegaly or mass. Respiratory : Clear to auscultation bilaterally. No accessory muscle use, rales , rhonchi or wheezes Cardiovascular : RRR, +S1, +S2. no murmur, gallop, rubs. No chest wall tenderness GI/Abdominal : Soft, obese, normal bowel sounds, soft, no peritoneal signs. Musculoskeletal: Wasting of her lower extremity. Left leg swelling, no calf tenderness Neurological: AAO X3, CN II-XII grossly intact, grossly normal motor and sensory exam. Skin: Multiple wounds on Lt thigh and Rt thigh associated erythema and tenderness with pustular discharge and some necrotic material. 20x15 cm wound on Rt and Left abdomen with pustular drainage. - Assessment and Plan (1) Cellulitis Current Visit: No Status: Acute Assessment and Plan: Due to Calciphylaxis - Cont wound care - Cont Sodium Thiosulfate during HD - Per ID, will off Abx now. (2) ESRD (end stage renal disease) Current Visit: Yes Status: Chronic Assessment and Plan: - Cont HD per nephro - continue cinacalcet (3) DVT prophylaxis Current Visit: No Status: Acute Assessment and Plan: On Eliquis. Pt has Left leg swelling, no calf tenderness, doppler done to r/o DVT, result is pending. (4) Afib Current Visit: No Status: Chronic Assessment and Plan: - c/w home amiodarone and metoprolol - On Eliquis for AC (5) Nausea & vomiting Current Visit: No Status: Resolved Assessment and Plan: Resolved now. Gastroperesis? CT abd shows Gastric wall thickness. GI consult appreciated. Plan for EGD. (6) Hypothyroidism Current Visit: No Status: Chronic Assessment and Plan: -c/w home levothyroxin (7) Hypertension Current Visit: No Status: Chronic Assessment and Plan: - c/w home hydralazine (8) Asthma Current Visit: No Status: Chronic Assessment and Plan: No wheezing now. -c/w albuterol as needed - c/w montelukast (9) Wounds, multiple Current Visit: No Status: Chronic Assessment and Plan: as above (10) CLABSI (central line-associated bloodstream infection) Current Visit: No Status: Acute Assessment and Plan: Catheter has been replaced. Repeated blood culture no growth so far. Per ID will d/c vanco. (11) Hypoglycemia Current Visit: Yes Status: Acute Assessment and Plan: - Low blood sugar in ER. resolved now. - continue renal diet DVT Prophylaxis: On Eliquis. - Time Spent with Patient Total time spent is greater than 50% in coordination of care (as documented) at patient's floor/unit and/or counseling patient: 25 - 35 minutes Plan of Care Discussed with: patient Internal Medicine: Result - Labs CBC & Chem 7: 04/25/18 04:58 04/25/18 04:58 Labs: Short CBC 04/25/18 Range/Units 04:58 WBC 7.1 (4.3-11.1) K/mcL Hgb 7.0 L (11.5-15.4) g/dL Hct 21.6 L (35.3-44.9) % Plt Count 120 L (140-400) K/mcL Neutrophils # 4.6 (1.6-8.9) K/mcL BMP 04/25/18 04:58 Sodium 139 Potassium 3.8 Chloride 99 Carbon Dioxide 32 H BUN 12 Creatinine 3.30 H Glucose 108 H Calcium 7.2 L - ABG Interpretation ABG results: PT/INR, D-dimer PT 14.4 Seconds (9.4-12.1) H 04/21/18 12:53 Consult Discharge Plan - Plan Referrals: Peter Vicente DO [Primary Care Provider] - (1) Cellulitis Qualifiers: Site of cellulitis: unspecified site Qualified Code(s): L03.90 - Cellulitis, unspecified (4) Afib Qualifiers: Atrial fibrillation type: paroxysmal Qualified Code(s): I48.0 - Paroxysmal atrial fibrillation (5) Nausea & vomiting Qualifiers: Vomiting type: unspecified Vomiting Intractability: unspecified Qualified Code(s): R11.2 - Nausea with vomiting, unspecified (6) Hypothyroidism Qualifiers: Hypothyroidism type: unspecified Qualified Code(s): E03.9 - Hypothyroidism, unspecified (7) Hypertension Qualifiers: Hypertension type: essential hypertension Qualified Code(s): I10 - Essential (primary) hypertension (8) Asthma Qualifiers: Asthma severity: unspecified severity Asthma persistence: unspecified Asthma complication type: unspecified Qualified Code(s): J45.909 - Unspecified asthma, uncomplicated (10) CLABSI (central line-associated bloodstream infection) Qualifiers: Encounter type: subsequent encounter Qualified Code(s): T80.211D - Bloodstream infection due to central venous catheter, subsequent encounter
[2018-04-25] MEDS: Ondansetron ODT 4 MG TAB.RAPDIS SL PRN (12:36)
[2018-04-25] MEDS: *HR* OxyCODONE/APAP 5/325 TABLET PO PRN ×2 (16:00→22:29)
[2018-04-25] MEDS: *HR* Promethazine 25 MG/ML VIAL IVP PRN (16:35)
[2018-04-26] MEDS: Silvasorb 44.4 ML TUBE TP SCH (00:39)
[2018-04-26 05:55] LABS: Basophils % 0.3 %; Eosinophils # 0.1 K/mcL (0.0-0.6); Eosinophils % 2.1 %; Hematocrit 23.7 % (35.3-44.9); Hemoglobin 7.5 g/dL (11.5-15.4); Immature Granulocytes % 1.6 % (0-4); Lymphocytes # 1.5 K/mcL (0.6-4.6); Lymphocytes % 21.8 %; Mean Corpuscular HGB Conc 31.6 g/dL (31.6-35.5); Mean Corpuscular Hemoglobin 30.5 pg (28.0-33.3); Mean Corpuscular Volume 96.3 fL (83.0-100.0); Mean Platelet Volume 10.2 fL (9.4-12.4); Monocytes # 1.1 K/mcL (0.0-1.3); Monocytes % 16.7 %; Neutrophils # 3.9 K/mcL (1.6-8.9); Platelet Count 144 K/mcL (140-400); Red Blood Count 2.46 M/mcL (3.82-4.97); Red Cell Distribution Width 15.9 % (11.5-14.5); Segmented Neutrophils % 57.5 %
[2018-04-26 06:18] LABS: Calcium 7.4 mg/dL (8.6-10.3); Potassium 4.7 mEq/L (3.5-5.1)
[2018-04-26] MEDS: Budesonide/Formoterol 160/4.5 1 PUFF INH IH SCH ×2 (08:02→20:44)
[2018-04-26] MEDS: Artificial Tears SOLN 15 ML BOTTLE BOTH EYES SCH ×4 (09:18→23:29)
[2018-04-26] MEDS: Folic Acid 1 MG TABLET PO SCH (09:18)
[2018-04-26] MEDS: Metoprolol XL (24 HR) Succ 25 MG TAB.ER.24H PO SCH (09:18)
[2018-04-26] MEDS: *HR* Amiodarone 200 MG TABLET PO SCH (09:18)
[2018-04-26] MEDS: *HR* OxyCODONE/APAP 5/325 TABLET PO PRN ×2 (09:19→16:09)
[2018-04-26] MEDS: predniSONE 10 MG TABLET PO SCH (09:26)
--- NOTE | 2018-04-26 09:38 | Nephrology Progress Note ---
Date of Encounter: 04/26/18 Time of Encounter: 09:36 - Assessment and Plan (1) Calciphylaxis Current Visit: No Status: Chronic Will resume sodium thiosulfate after HD treatments She is home without home health or outpatient wound clinic so significant other is taking care of wounds. (2) ESRD (end stage renal disease) Current Visit: Yes Status: Chronic HD completed yesterday. Continue renal diet. Avoid nephrotoxins and renal dose. Strict I/O. (3) Noncompliance with renal dialysis Current Visit: No Status: Chronic Often misses HD treatments. (4) Nausea & vomiting Current Visit: No Status: Resolved GI has been consulted to rule out esophagitis, gastritis, duodenitis, PUD, MW tear, or AVM. Plan to check gastric emptying study. Pt is NPO for scope today. Qualifiers: Vomiting type: unspecified Vomiting Intractability: unspecified Qualified Code(s): R11.2 - Nausea with vomiting, unspecified (5) Hyperkalemia Current Visit: Yes Status: Acute K is 4.7 today. Renal diet, if able to eat. (6) Anemia Current Visit: No Status: Chronic Goal HGB is 10-11. Hgb is 7.5 today. Will order iron profile. Qualifiers: Anemia type: due to chronic kidney disease Chronic kidney disease stage: on chronic dialysis Qualified Code(s): N18.6 - End stage renal disease; D63.1 - Anemia in chronic kidney disease; Z99.2 - Dependence on renal dialysis Subjective Principal diagnosis: nausea/vomiting Interval history: Pt seen and examined. States she is feeling a little better today. Admits nausea is worse than yesterday. Is NPO for a scope. Objective - Vital Signs Vital signs: Vital Signs Temp Pulse Resp BP Pulse Ox 04/26/18 08:02 16 94 04/26/18 07:00 98.2 F 71 18 163/91 94 04/26/18 05:39 98.3 F 71 16 126/48 94 04/25/18 22:54 98.4 F 74 16 151/75 93 04/25/18 22:33 16 156/93 94 04/25/18 16:56 98.3 F 88 16 156/93 94 04/25/18 12:00 98.8 F 83 14 158/96 94 Intake and Output 1004/26/18 04/26/18 23:59 07:59 15:59 Other: Blood Glucose* 109 71 - General Appearance General appearance: Present: chronically ill, frail EENT: Present: ATNC, hearing intact, vision intact Neck: Present: supple Respiratory: Present: clear Cardiology: Present: edema (Trace bilat lower extremity edema.), normal S1, normal S2 Dialysis Vascular Access: Venous Catheter (Tunneled Line, DRSG C/D/I) Gastrointestinal: Present: normoactive bowel sounds, no tenderness, no guarding Integumentary: Present: no rash, warm and dry Additional Comments: DRSG to upper abdomen C/D/I. Neurologic: Present: alert and oriented x3 Psychiatric: Present: mood/affect appropriate, cooperative - Lab 04/26/18 05:41 04/26/18 05:41 Most recent lab results Calcium 7.4 mg/dL (8.6-10.3) L 04/26/18 05:41 Phosphorus 4.4 mg/dL (2.7-4.5) 04/21/18 12:53 Magnesium 1.5 mg/dL (1.6-2.6) L 04/21/18 12:53 Consult Discharge Plan - Plan Referrals: Peter Vicente DO [Primary Care Provider] -
--- NOTE | 2018-04-26 10:56 | Anesthesia Evaluation PreOp ---
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 HX Other Medical History: Renal (ESRD on dialysis T//Mon), Diabetes Type II, Thyroid, GERD, Other (GI Bleed) Anesthesia History: No Prior Anesthetic Complications, Past Anesthesia (kidney transplant) Alcohol Use: none Drug use: none Medications and Allergies Albuterol Sulfate [Albuterol Inhaler] 2 puff IH Q4H PRN 09/09/16 [History] Amiodarone [Cordarone] 200 mg PO DAILY 09/09/16 [History] Atorvastatin [Lipitor] 40 mg PO HS 09/09/16 [History] Budesonide/Formoterol 160/4.5 [Symbicort 160/4.5] 2 puff IH BIDR 09/09/16 [ History] Levothyroxine Sodium [Synthroid] 200 mcg PO QAM 09/09/16 [History] Omeprazole [PriLOSEC] 20 mg PO DAILY 09/09/16 [History] hydrALAZINE [HydrALAZINE] 50 mg PO BID 09/09/16 [History] Montelukast [Singulair] 10 mg PO DAILY 02/16/17 [History] Folic Acid 1 mg PO DAILY 01/07/18 [History] Metoprolol Succinate [Toprol Xl] 25 mg PO DAILY 01/07/18 [History] Apixaban [Eliquis] 5 mg PO BID #60 tablet 01/18/18 [Rx] Collagenase Oint [Santyl] 1 appl TP HS tube 02/16/18 [Rx] Darbepoetin [Aranesp] 60 mcg SQ QWEEK syringe 02/16/18 [Rx] Cinacalcet [Sensipar] 30 mg PO DAILY 30 Days #30 tablet 03/22/18 [Rx] predniSONE [PredniSONE] 10 mg PO DAILY tablet 03/22/18 [Rx] Ondansetron ODT [Zofran ODT] 4 mg SL Q8HR PRN #12 tab.rapdis 04/05/18 [Rx] Acetaminophen [Tylenol] 1,000 mg PO Q6HR PRN 04/21/18 [History] cloNIDine HCl [CloNIDine HCl] 0.1 mg PO TID 04/21/18 [History] 3 Allergy/AdvReac Type Severity Reaction Status Date / Time Warfarin [From Coumadin] Allergy Anaphylaxis Verified 04/21/18 11:18 heparin AdvReac Severe Unresponsiv Verified 04/24/18 11:44 e - Meds/Allergy Pre-op Review Medications Reviewed: Yes Allergies Reviewed: Yes Beta Blockers on Current Med List: Yes If Beta Blockers taken, Date/Time (Last Dose taken): 04/26/2018 at 0918 Anesthesia Results - Labs 04/26/18 05:41 04/26/18 05:41 - Imaging EKG: report reviewed (04/21/2018 Sinus rhythm Possible anteroseptal infarct, age undetermined Nonspecific ST-T changes) Additional studies: 04/08/2018 Echo Impressions: LVEF 55%. Indeterminate diastolic function. Normal right ventricular structure and function. Mild mitral regurgitation. Mild tricuspid regurgitation. Focal calcification of the right cusp of the aortic valve. No pulmonary hypertension. Valvular vegetations were not visualized. 02/27/2017 LEFT HEART CATH Iliofemoral angiography Indications: Abnormal Test - Stress Impressions: There is minimal one vessel coronary artery disease. The left ventricle is normal and has normal contractility EF 65% Recommendations: Optimal medical therapy of patient's disease. Aggressive risk factor modification. 01/31/2017 Stress Impression: There is a small sized, mild intensity stress perfusion defect involving the mid to distal anterior wall in which mild ischemia cannot be ruled out. No appreciable change in pharmacologic ECG during stress. Gated EF = 48%. There is evidence of mild visual TID. Findings communicated to ordering provider. 01/26/2017 Echo Impressions: LVEF 55%. Normal LV chamber size, wall thickness and function. Mild left ventricular diastolic dysfunction. Normal right ventricular structure and function. No evidence of pulmonary hypertension. No significant valvular dysfunction. Anesthesia Exam Vital Signs/O2 Sat/Glucose, Most Recent Temp Pulse Resp BP Pulse Ox 98.1 F 69 18 164/88 94 04/26/18 12:33 04/26/18 12:33 04/26/18 12:33 04/26/18 12:33 04/26/18 12:33 Blood Glucose* 69 Height: 5'2''/1.57m Weight: 183 lbs/83.2 kg NPO (# of Hours): 8 Pain Scale: 0 Pain Scale Used: Numeric (1 - 10) - HEENT Pupil (Motor): EOMI Mallampati: III Teeth: Normal Oral Opening: Greater than 3 - DELIVERY TRUCK DRIVER LOC: Oriented DELIVERY TRUCK DRIVER Motor: Normal RUE, Normal LUE, Normal RLE, Normal Face, Deficit LLE DELIVERY TRUCK DRIVER Sensory: Normal: RUE, LUE, RLE, LLE, Face - Cardiac Rhythm: Regular Murmur: None - Pulmonary Breath Sounds: bilateral Clear Respiratory Effort: Symmetrical Anesthesia Assess/Plan ASA Score: 4 Modified Sheela Scale for Level of Consciousness: Cooperative, oriented, and tranquil Anesthetic Plan: MAC Monitoring Plan: Standard Monitors
--- NOTE | 2018-04-26 11:06 | Internal Med Progress Note ---
Hospitalist Progress Note - Encounter Date of Encounter: 04/26/18 Time of Encounter: 09:00 - Subjective Interval History: Pt still has intermittent nausea. Denies abd pain/nausea when I ssaw her in the morning. GI on case and plan for EGD today. - Exam Vitals: Temp Pulse Resp BP Pulse Ox 98.2 F 71 16 163/91 94 04/26/18 07:00 04/26/18 07:00 04/26/18 08:02 04/26/18 07:00 04/26/18 08:02 Exam: Constitutional: Vitals as noted. No Apparent Distress. Eyes : Sclera white, conjunctiva clear, no lid lag, PEARLA. ENT : Grossly normal hearing. Oropharyngeal exam unremarkable. Moist mucus membranes. No JVD. no cervical lymphadenopathy. no thyromegaly or mass. Respiratory : Clear to auscultation bilaterally. No accessory muscle use, rales , rhonchi or wheezes Cardiovascular : RRR, +S1, +S2. no murmur, gallop, rubs. No chest wall tenderness GI/Abdominal : Soft, obese, normal bowel sounds, soft, no peritoneal signs. Musculoskeletal: Wasting of her lower extremity. Left leg swelling, no calf tenderness Neurological: AAO X3, CN II-XII grossly intact, grossly normal motor and sensory exam. Skin: Multiple wounds on Lt thigh and Rt thigh associated erythema and tenderness with pustular discharge and some necrotic material. 20x15 cm wound on Rt and Left abdomen with pustular drainage. - Assessment and Plan (1) Cellulitis Current Visit: No Status: Acute Assessment and Plan: Due to Calciphylaxis - Cont wound care - Cont Sodium Thiosulfate during HD (2) ESRD (end stage renal disease) Current Visit: Yes Status: Chronic Assessment and Plan: - Cont HD per nephro - continue cinacalcet (3) DVT prophylaxis Current Visit: No Status: Acute Assessment and Plan: On Eliquis. Pt has Left leg swelling, no calf tenderness, doppler done, negative for DVT/SVT. (4) Afib Current Visit: No Status: Chronic Assessment and Plan: HR is controlled - c/w home amiodarone and metoprolol - On Eliquis for AC (5) Nausea & vomiting Current Visit: No Status: Resolved Assessment and Plan: Gastroperesis? CT abd shows Gastric wall thickness. GI consult appreciated. Plan for EGD today. (6) Hypothyroidism Current Visit: No Status: Chronic Assessment and Plan: -c/w home levothyroxin (7) Hypertension Current Visit: No Status: Chronic Assessment and Plan: - c/w home hydralazine (8) Asthma Current Visit: No Status: Chronic Assessment and Plan: No wheezing now. -c/w albuterol as needed - c/w montelukast (9) Wounds, multiple Current Visit: No Status: Chronic Assessment and Plan: as above (10) CLABSI (central line-associated bloodstream infection) Current Visit: No Status: Acute Assessment and Plan: Catheter has been replaced. Repeated blood culture no growth so far. Off Abx now. (11) Hypoglycemia Current Visit: Yes Status: Acute Assessment and Plan: - Low blood sugar in ER. resolved now. - continue renal diet DVT Prophylaxis: On Eliquis. - Time Spent with Patient Total time spent is greater than 50% in coordination of care (as documented) at patient's floor/unit and/or counseling patient: 25 - 35 minutes Plan of Care Discussed with: patient Internal Medicine: Result - Labs CBC & Chem 7: 04/26/18 05:41 04/26/18 05:41 Labs: Short CBC 04/26/18 Range/Units 05:41 WBC 6.8 (4.3-11.1) K/mcL Hgb 7.5 L (11.5-15.4) g/dL Hct 23.7 L (35.3-44.9) % Plt Count 144 (140-400) K/mcL Neutrophils # 3.9 (1.6-8.9) K/mcL BMP 04/26/18 05:41 Sodium 138 Potassium 4.7 Chloride 99 Carbon Dioxide 29 BUN 20 Creatinine 4.25 H Glucose 69 L Calcium 7.4 L - ABG Interpretation ABG results: PT/INR, D-dimer PT 14.4 Seconds (9.4-12.1) H 04/21/18 12:53 Consult Discharge Plan - Plan Referrals: Peter Vicente DO [Primary Care Provider] - (1) Cellulitis Qualifiers: Site of cellulitis: unspecified site Qualified Code(s): L03.90 - Cellulitis, unspecified (4) Afib Qualifiers: Atrial fibrillation type: paroxysmal Qualified Code(s): I48.0 - Paroxysmal atrial fibrillation (5) Nausea & vomiting Qualifiers: Vomiting type: unspecified Vomiting Intractability: unspecified Qualified Code(s): R11.2 - Nausea with vomiting, unspecified (6) Hypothyroidism Qualifiers: Hypothyroidism type: unspecified Qualified Code(s): E03.9 - Hypothyroidism, unspecified (7) Hypertension Qualifiers: Hypertension type: essential hypertension Qualified Code(s): I10 - Essential (primary) hypertension (8) Asthma Qualifiers: Asthma severity: unspecified severity Asthma persistence: unspecified Asthma complication type: unspecified Qualified Code(s): J45.909 - Unspecified asthma, uncomplicated (10) CLABSI (central line-associated bloodstream infection) Qualifiers: Encounter type: subsequent encounter Qualified Code(s): T80.211D - Bloodstream infection due to central venous catheter, subsequent encounter
[2018-04-26] MEDS ORDERED: *HR* Propofol 200 MG/20 ML VIAL IVP ONE (12:00)
[2018-04-26] MEDS ORDERED: Lidocaine -MPF 2% 2 ML VIAL ONE (12:00)
[2018-04-26] MEDS ORDERED: Ondansetron 4 MG/2 ML VIAL ONE (12:00)
[2018-04-26] MEDS ORDERED: 0.9 % Sodium Chloride 1,000 ML IVC SCH (12:45)
[2018-04-26] MEDS ORDERED: 0.9 % Sodium Chloride 1,000 ML ONE (13:25)
[2018-04-26] MEDS: 0.9 % Sodium Chloride 1,000 ML PRIME SCH (14:00)
[2018-04-26] MEDS: Sodium Thiosulfate 25 GM in EMPTY BAG 1 EACH IVPB SCH (15:52)
[2018-04-27] MEDS: *HR* OxyCODONE/APAP 5/325 TABLET PO PRN (03:11)
[2018-04-27] MEDS: Ondansetron ODT 4 MG TAB.RAPDIS SL PRN ×2 (03:21→17:25)
[2018-04-27 05:17] LABS: Basophils % 0.2 %; Eosinophils # 0.2 K/mcL (0.0-0.6); Eosinophils % 2.8 %; Hematocrit 22.6 % (35.3-44.9); Hemoglobin 7.1 g/dL (11.5-15.4); Immature Granulocytes % 1.2 % (0-4); Lymphocytes # 1.7 K/mcL (0.6-4.6); Lymphocytes % 20.5 %; Mean Corpuscular HGB Conc 31.4 g/dL (31.6-35.5); Mean Corpuscular Hemoglobin 30.1 pg (28.0-33.3); Mean Corpuscular Volume 95.8 fL (83.0-100.0); Mean Platelet Volume 10.4 fL (9.4-12.4); Monocytes # 1.3 K/mcL (0.0-1.3); Monocytes % 14.9 %; Neutrophils # 5.1 K/mcL (1.6-8.9); Platelet Count 171 K/mcL (140-400); Red Blood Count 2.36 M/mcL (3.82-4.97); Red Cell Distribution Width 16.1 % (11.5-14.5); Segmented Neutrophils % 60.4 %
[2018-04-27 05:34] LABS: Calcium 7.2 mg/dL (8.6-10.3); Potassium 4.5 mEq/L (3.5-5.1)
[2018-04-27 05:56] LABS: Folate 5.7 ng/mL (3.0-16.0)
[2018-04-27 06:11] LABS: Ferritin 1048 ng/mL (10-120); Iron 55 mcg/dL (50-170); Transferrin < 75 mg/dL (203-362)
[2018-04-27] MEDS: Silvasorb 44.4 ML TUBE TP SCH (07:41)
[2018-04-27] MEDS: Budesonide/Formoterol 160/4.5 1 PUFF INH IH SCH ×2 (07:44→19:47)
[2018-04-27] MEDS: Sodium Thiosulfate 25 GM in EMPTY BAG 1 EACH IVPB SCH ×2 (08:00→08:06)
[2018-04-27] MEDS: predniSONE 10 MG TABLET PO SCH (11:13)
[2018-04-27] MEDS: Folic Acid 1 MG TABLET PO SCH (11:13)
[2018-04-27] MEDS: Artificial Tears SOLN 15 ML BOTTLE BOTH EYES SCH ×3 (11:13→19:00)
[2018-04-27] MEDS: *HR* Amiodarone 200 MG TABLET PO SCH (11:13)
[2018-04-27] MEDS: Metoprolol XL (24 HR) Succ 25 MG TAB.ER.24H PO SCH (11:13)
--- NOTE | 2018-04-27 12:01 | Internal Med Progress Note ---
Hospitalist Progress Note - Encounter Date of Encounter: 04/27/18 Time of Encounter: 09:00 - Subjective Interval History: Pt denies abd pain/nausea when I ssaw her in the morning. EGD shows gastritis and Schatzki ring. - Exam Vitals: Temp Pulse Resp BP Pulse Ox 98.2 F 74 17 129/77 92 04/27/18 07:58 04/27/18 07:58 04/27/18 07:58 04/27/18 07:58 04/27/18 07:58 Exam: Constitutional: Vitals as noted. No Apparent Distress. Eyes : Sclera white, conjunctiva clear, no lid lag, PEARLA. ENT : Grossly normal hearing. Oropharyngeal exam unremarkable. Moist mucus membranes. No JVD. no cervical lymphadenopathy. no thyromegaly or mass. Respiratory : Clear to auscultation bilaterally. No accessory muscle use, rales , rhonchi or wheezes Cardiovascular : RRR, +S1, +S2. no murmur, gallop, rubs. No chest wall tenderness GI/Abdominal : Soft, obese, normal bowel sounds, soft, no peritoneal signs. Musculoskeletal: Wasting of her lower extremity. Left leg swelling, no calf tenderness Neurological: AAO X3, CN II-XII grossly intact, grossly normal motor and sensory exam. Skin: Multiple wounds on Lt thigh and Rt thigh associated erythema and tenderness with pustular discharge and some necrotic material. 20x15 cm wound on Rt and Left abdomen with pustular drainage. - Assessment and Plan (1) Cellulitis Current Visit: No Status: Acute Assessment and Plan: Due to Calciphylaxis - Cont wound care - Cont Sodium Thiosulfate during HD (2) ESRD (end stage renal disease) Current Visit: Yes Status: Chronic Assessment and Plan: - Cont HD per nephro - continue cinacalcet (3) DVT prophylaxis Current Visit: No Status: Acute Assessment and Plan: On Eliquis (on hold now b/o EGD and biopasy). Pt has Left leg swelling, no calf tenderness, doppler done, negative for DVT/SVT. (4) Afib Current Visit: No Status: Chronic Assessment and Plan: HR is controlled - c/w home amiodarone and metoprolol - On Eliquis for AC (5) Nausea & vomiting Current Visit: No Status: Resolved Assessment and Plan: EGD shows Schitzki ring and gastritis. Cont home PPI. F/U with GI. (6) Hypothyroidism Current Visit: No Status: Chronic Assessment and Plan: -c/w home levothyroxin (7) Hypertension Current Visit: No Status: Chronic Assessment and Plan: - c/w home hydralazine (8) Asthma Current Visit: No Status: Chronic Assessment and Plan: No wheezing now. -c/w albuterol as needed - c/w montelukast (9) Wounds, multiple Current Visit: No Status: Chronic Assessment and Plan: as above (10) Hypoglycemia Current Visit: Yes Status: Acute Assessment and Plan: - Low blood sugar in ER. resolved now. - continue renal diet - Summary of Assessment and Plan Summary of Assessment and Plan: Plan to D/C home with HH after HD tomorrow, if pt remains asymptomatic and H/H and vitals stable. - Time Spent with Patient Total time spent is greater than 50% in coordination of care (as documented) at patient's floor/unit and/or counseling patient: 25 - 35 minutes Plan of Care Discussed with: patient Internal Medicine: Result - Labs CBC & Chem 7: 04/27/18 04:50 04/27/18 04:50 Labs: Short CBC 04/27/18 Range/Units 04:50 WBC 8.5 (4.3-11.1) K/mcL Hgb 7.1 L (11.5-15.4) g/dL Hct 22.6 L (35.3-44.9) % Plt Count 171 (140-400) K/mcL Neutrophils # 5.1 (1.6-8.9) K/mcL BMP 04/27/18 04:50 Sodium 136 Potassium 4.5 Chloride 99 Carbon Dioxide 31 H BUN 14 Creatinine 2.83 H Glucose 91 Calcium 7.2 L - ABG Interpretation ABG results: PT/INR, D-dimer PT 14.4 Seconds (9.4-12.1) H 04/21/18 12:53 Consult Discharge Plan - Plan Referrals: Peter Vicente DO [Primary Care Provider] - (1) Cellulitis Qualifiers: Site of cellulitis: unspecified site Qualified Code(s): L03.90 - Cellulitis, unspecified (4) Afib Qualifiers: Atrial fibrillation type: paroxysmal Qualified Code(s): I48.0 - Paroxysmal atrial fibrillation (5) Nausea & vomiting Qualifiers: Vomiting type: unspecified Vomiting Intractability: unspecified Qualified Code(s): R11.2 - Nausea with vomiting, unspecified (6) Hypothyroidism Qualifiers: Hypothyroidism type: unspecified Qualified Code(s): E03.9 - Hypothyroidism, unspecified (7) Hypertension Qualifiers: Hypertension type: essential hypertension Qualified Code(s): I10 - Essential (primary) hypertension (8) Asthma Qualifiers: Asthma severity: unspecified severity Asthma persistence: unspecified Asthma complication type: unspecified Qualified Code(s): J45.909 - Unspecified asthma, uncomplicated
[2018-04-28 06:08] LABS: Basophils % 0.3 %; Eosinophils # 0.2 K/mcL (0.0-0.6); Eosinophils % 1.8 %; Hematocrit 23.7 % (35.3-44.9); Hemoglobin 7.5 g/dL (11.5-15.4); Immature Granulocytes % 1.3 % (0-4); Lymphocytes % 20.6 %; Mean Corpuscular HGB Conc 31.6 g/dL (31.6-35.5); Mean Corpuscular Hemoglobin 30.1 pg (28.0-33.3); Mean Corpuscular Volume 95.2 fL (83.0-100.0); Mean Platelet Volume 10.3 fL (9.4-12.4); Monocytes # 1.2 K/mcL (0.0-1.3); Neutrophils # 6.3 K/mcL (1.6-8.9); Platelet Count 206 K/mcL (140-400); Red Blood Count 2.49 M/mcL (3.82-4.97); Red Cell Distribution Width 15.9 % (11.5-14.5)
[2018-04-28 06:25] LABS: Calcium 7.6 mg/dL (8.6-10.3)
[2018-04-28] MEDS: Artificial Tears SOLN 15 ML BOTTLE BOTH EYES SCH ×4 (06:30→18:28)
[2018-04-28] MEDS: Silvasorb 44.4 ML TUBE TP SCH (06:30)
--- NOTE | 2018-04-28 08:49 | Nephrology Progress Note ---
Date of Encounter: 04/28/18 Time of Encounter: 09:55 - Assessment and Plan (1) ESRD (end stage renal disease) Current Visit: Yes Status: Chronic ESRD on HD TTS, and after reviewing her labs, vitals, progress notes, med list, prior imaging, this complex E/M and MDM in which I used to place the dialysis orders for today. Next HD is planned for Monday, if she has not yet been discharged. I will be available tomorrow if needed, otherwise, my colleague Dr. Marvin will be on-call on Monday morning. Thank you. (2) AV fistula thrombosis Current Visit: No Status: Acute Now that she's not bactermic, this is the ideal window of time to address the LUE AVF that has not been working. She has missed and/or rescheduled several outpt Thrombectomy/Fistulagrams d/t bacteremia and repeat hospitalizations. I recommend NPO on Monday night with a Thrombectomy and/or Fistulagram on Monday via [facility]. Orders in place. Discussed with the pt who also requested this be done here since she is largely immobile and transportation for outpt procedures have again failed. Discussed with the Hospitalist. Thank you. Qualifiers: Encounter type: subsequent encounter Qualified Code(s): T82.868D - Thrombosis due to vascular prosthetic devices, implants and grafts, subsequent encounter (3) Calciphylaxis Current Visit: No Status: Chronic Continue Sodium thiosulfate with HD treatments (4) Anemia Current Visit: No Status: Chronic Goal HGB is 10-11, and continue BARBARA. Transfusion parameters as per primary. Qualifiers: Anemia type: due to chronic kidney disease Chronic kidney disease stage: on chronic dialysis Qualified Code(s): N18.6 - End stage renal disease; D63.1 - Anemia in chronic kidney disease; Z99.2 - Dependence on renal dialysis (5) Nausea & vomiting Current Visit: No Status: Resolved Qualifiers: Vomiting type: unspecified Vomiting Intractability: unspecified Qualified Code(s): R11.2 - Nausea with vomiting, unspecified (6) Hyperkalemia Current Visit: Yes Status: Acute Acute on chronic, and since she has received regular HD during this admission, her ongoing nausea is not from a uremic etiology. Work up and mgt as per primary. Subjective Principal diagnosis: nausea/vomiting Interval history: Pt was seen/examined and she did not affirm any new dialysis related complaints such as cramping or dizzines. She has chronic nausea, and reaffirmed this to me on Monday. Objective - Vital Signs Vital signs: Vital Signs Temp Pulse Resp BP Pulse Ox 04/28/18 08:10 97.7 F 74 18 123/56 91 04/28/18 05:42 97.4 F L 69 16 131/85 93 04/27/18 23:52 98.3 F 72 16 153/93 94 04/27/18 20:48 98.6 F 71 16 112/88 95 04/27/18 19:49 16 95 04/27/18 17:11 98.7 F 75 19 156/97 93 04/27/18 12:09 98.5 F 74 19 144/89 95 Intake and Output 04/27/18 04/28/18 04/28/18 23:59 07:59 15:59 Other: # Voids 1 Weight 80.1 kg Blood Glucose* 130 79 Patient Weight 04/28/18 23:59 Weight 80.1 kg - General Appearance Exam: General appearance: Present: chronically ill, frail EENT: Present: ATNC, vision intact Neck: Present: supple Respiratory: Present: clear Cardiology: Present: edema (Trace bilat lower extremity edema.), normal S1, normal S2 Dialysis Vascular Access: Venous Catheter (Right Tunneled Dialysis Catheter with DRSG C/D/I) Gastrointestinal: Present: normoactive bowel sounds, no tenderness, no guarding Integumentary: Present: no rash, warm and dry Additional Comments: but with chronic wounds Neurologic: Present: alert and oriented x3 Psychiatric: Present: mood/affect appropriate, cooperative - Lab 05/01/18 05:02 05/01/18 05:02 Most recent lab results Calcium 7.6 mg/dL (8.6-10.3) L 04/28/18 05:08 Phosphorus 4.4 mg/dL (2.7-4.5) 04/21/18 12:53 Magnesium 1.5 mg/dL (1.6-2.6) L 04/21/18 12:53 Consult Discharge Plan - Plan Referrals: Peter Vicente DO [Primary Care Provider] -
[2018-04-28] MEDS ORDERED: 0.9 % Sodium Chloride 1,000 ML ONE ×2 (08:57→13:23)
[2018-04-28] MEDS: Ondansetron ODT 4 MG TAB.RAPDIS SL PRN (09:02)
[2018-04-28] MEDS: predniSONE 10 MG TABLET PO SCH (10:23)
[2018-04-28] MEDS: Metoprolol XL (24 HR) Succ 25 MG TAB.ER.24H PO SCH (10:23)
[2018-04-28] MEDS: Folic Acid 1 MG TABLET PO SCH (10:23)
[2018-04-28] MEDS: *HR* Amiodarone 200 MG TABLET PO SCH (10:23)
[2018-04-28] MEDS: Budesonide/Formoterol 160/4.5 1 PUFF INH IH SCH ×2 (11:06→20:35)
--- NOTE | 2018-04-28 11:30 | Internal Med Progress Note ---
Hospitalist Progress Note - Encounter Date of Encounter: 04/28/18 Time of Encounter: 09:00 - Subjective Interval History: Pt has mild nausea but no vomiting, still weak. Nephro plan for fistulagram on Monday, which is delayed b/o bacteremia. Cont current care. - Exam Vitals: Temp Pulse Resp BP Pulse Ox 97.7 F 74 18 123/56 91 04/28/18 08:10 04/28/18 08:10 04/28/18 08:10 04/28/18 08:10 04/28/18 08:10 Exam: Constitutional: Vitals as noted. No Apparent Distress. Eyes : Sclera white, conjunctiva clear, no lid lag, PEARLA. ENT : Grossly normal hearing. Oropharyngeal exam unremarkable. Moist mucus membranes. No JVD. no cervical lymphadenopathy. no thyromegaly or mass. Respiratory : Clear to auscultation bilaterally. No accessory muscle use, rales , rhonchi or wheezes Cardiovascular : RRR, +S1, +S2. no murmur, gallop, rubs. No chest wall tenderness GI/Abdominal : Soft, obese, normal bowel sounds, soft, no peritoneal signs. Musculoskeletal: Wasting of her lower extremity. Left leg swelling, no calf tenderness Neurological: AAO X3, CN II-XII grossly intact, grossly normal motor and sensory exam. Skin: Multiple wounds on Lt thigh and Rt thigh associated erythema and tenderness with pustular discharge and some necrotic material. 20x15 cm wound on Rt and Left abdomen with pustular drainage. - Assessment and Plan (1) Cellulitis Current Visit: No Status: Acute Assessment and Plan: Due to Calciphylaxis - Cont wound care - Cont Sodium Thiosulfate during HD (2) ESRD (end stage renal disease) Current Visit: Yes Status: Chronic Assessment and Plan: - Cont HD per nephro - continue cinacalcet - Fistulagram on Monday. (3) DVT prophylaxis Current Visit: No Status: Acute Assessment and Plan: On Eliquis (on hold now b/o EGD and biopasy). Pt has Left leg swelling, no calf tenderness, doppler done, negative for DVT/SVT. (4) Afib Current Visit: No Status: Chronic Assessment and Plan: HR is controlled - c/w home amiodarone and metoprolol - On Eliquis for AC (5) Nausea & vomiting Current Visit: No Status: Resolved Assessment and Plan: EGD shows Schitzki ring and gastritis. Cont home PPI. F/U with GI. Symptomatic treatment for nausea (6) Hypothyroidism Current Visit: No Status: Chronic Assessment and Plan: -c/w home levothyroxin (7) Hypertension Current Visit: No Status: Chronic Assessment and Plan: - c/w home hydralazine (8) Asthma Current Visit: No Status: Chronic Assessment and Plan: No wheezing now. -c/w albuterol as needed - c/w montelukast (9) Wounds, multiple Current Visit: No Status: Chronic Assessment and Plan: as above (10) Hypoglycemia Current Visit: Yes Status: Acute Assessment and Plan: - Intermittent low sugur level, place her on hypoglycemic protocol. - continue renal diet DVT Prophylaxis: On Eliquis. - Time Spent with Patient Total time spent is greater than 50% in coordination of care (as documented) at patient's floor/unit and/or counseling patient: 25 - 35 minutes Plan of Care Discussed with: patient Internal Medicine: Result - Labs CBC & Chem 7: 04/28/18 05:08 04/28/18 05:08 Labs: Short CBC 04/28/18 Range/Units 05:08 WBC 9.8 (4.3-11.1) K/mcL Hgb 7.5 L (11.5-15.4) g/dL Hct 23.7 L (35.3-44.9) % Plt Count 206 (140-400) K/mcL Neutrophils # 6.3 (1.6-8.9) K/mcL BMP 04/28/18 05:08 Sodium 135 L Potassium 5.0 Chloride 96 L Carbon Dioxide 31 H BUN 23 H Creatinine 3.87 H Glucose 67 L Calcium 7.6 L - ABG Interpretation ABG results: PT/INR, D-dimer PT 14.4 Seconds (9.4-12.1) H 04/21/18 12:53 Consult Discharge Plan - Plan Referrals: Peter Vicente DO [Primary Care Provider] - (1) Cellulitis Qualifiers: Site of cellulitis: unspecified site Qualified Code(s): L03.90 - Cellulitis, unspecified (4) Afib Qualifiers: Atrial fibrillation type: paroxysmal Qualified Code(s): I48.0 - Paroxysmal atrial fibrillation (5) Nausea & vomiting Qualifiers: Vomiting type: unspecified Vomiting Intractability: unspecified Qualified Code(s): R11.2 - Nausea with vomiting, unspecified (6) Hypothyroidism Qualifiers: Hypothyroidism type: unspecified Qualified Code(s): E03.9 - Hypothyroidism, unspecified (7) Hypertension Qualifiers: Hypertension type: essential hypertension Qualified Code(s): I10 - Essential (primary) hypertension (8) Asthma Qualifiers: Asthma severity: unspecified severity Asthma persistence: unspecified Asthma complication type: unspecified Qualified Code(s): J45.909 - Unspecified asthma, uncomplicated
[2018-04-28] MEDS: *HR* Promethazine 25 MG/ML VIAL IVP PRN ×2 (13:15→18:27)
[2018-04-28] MEDS: Sodium Thiosulfate 25 GM in EMPTY BAG 1 EACH IVPB SCH (16:45)
[2018-04-28] MEDS ORDERED: D5% in Water 1,000 ML IVC PRN (18:38)
[2018-04-28] MEDS ORDERED: *HR* Dextrose 50 % in Water (Syg) 50 ML SYRINGE IVP PRN (18:38)
[2018-04-28] MEDS ORDERED: Dextrose Gel 15 GM/37.5 ML TUBE PO PRN (18:38)
[2018-04-28] MEDS: Apixaban 5 MG TABLET PO SCH (21:00)
[2018-04-29] MEDS: *HR* OxyCODONE/APAP 5/325 TABLET PO PRN ×2 (00:22→17:33)
[2018-04-29] MEDS: Silvasorb 44.4 ML TUBE TP SCH ×2 (00:23→20:22)
[2018-04-29] MEDS: Artificial Tears SOLN 15 ML BOTTLE BOTH EYES SCH ×4 (06:39→16:41)
[2018-04-29] MEDS: Apixaban 5 MG TABLET PO SCH (09:04)
[2018-04-29] MEDS: Folic Acid 1 MG TABLET PO SCH (09:04)
[2018-04-29] MEDS: predniSONE 10 MG TABLET PO SCH (09:04)
[2018-04-29] MEDS: Metoprolol XL (24 HR) Succ 25 MG TAB.ER.24H PO SCH (09:04)
[2018-04-29] MEDS: *HR* Amiodarone 200 MG TABLET PO SCH (09:04)
--- NOTE | 2018-04-29 10:12 | Internal Med Progress Note ---
Hospitalist Progress Note - Encounter Date of Encounter: 04/29/18 Time of Encounter: 09:00 - Subjective Interval History: Pt feels OK today. No nausea or vomiting, still weak. Nephro plan for fistulagram on Monday, which is delayed b/o bacteremia. Cont current care. Encourage pt out of bed. - Exam Vitals: Temp Pulse Resp BP Pulse Ox 98.3 F 75 16 132/51 92 04/29/18 07:03 04/29/18 07:03 04/29/18 07:03 04/29/18 07:03 04/29/18 07:03 Exam: Constitutional: Vitals as noted. No Apparent Distress. Eyes : Sclera white, conjunctiva clear, no lid lag, PEARLA. ENT : Grossly normal hearing. Oropharyngeal exam unremarkable. Moist mucus membranes. No JVD. no cervical lymphadenopathy. no thyromegaly or mass. Respiratory : Clear to auscultation bilaterally. No accessory muscle use, rales , rhonchi or wheezes Cardiovascular : RRR, +S1, +S2. no murmur, gallop, rubs. No chest wall tenderness GI/Abdominal : Soft, obese, normal bowel sounds, soft, no peritoneal signs. Musculoskeletal: Wasting of her lower extremity. Left leg swelling, no calf tenderness Neurological: AAO X3, CN II-XII grossly intact, grossly normal motor and sensory exam. Skin: Multiple wounds on Lt thigh and Rt thigh associated erythema and tenderness with pustular discharge and some necrotic material. 20x15 cm wound on Rt and Left abdomen with pustular drainage. - Assessment and Plan (1) Cellulitis Current Visit: No Status: Acute Assessment and Plan: Due to Calciphylaxis - Cont wound care - Cont Sodium Thiosulfate during HD (2) ESRD (end stage renal disease) Current Visit: Yes Status: Chronic Assessment and Plan: - Cont HD per nephro - continue cinacalcet - Fistulagram on Monday. try to remove catheter if AV fistula works. (3) DVT prophylaxis Current Visit: No Status: Acute Assessment and Plan: On Eliquis (on hold now for possible fistula procedure). (4) Afib Current Visit: No Status: Chronic Assessment and Plan: HR is controlled - c/w home amiodarone and metoprolol - On Eliquis for AC (on hold for possible fistula procedure. (5) Nausea & vomiting Current Visit: No Status: Resolved Assessment and Plan: EGD shows Schitzki ring and gastritis. Cont home PPI. F/U with GI. Symptomatic treatment for nausea (6) Hypothyroidism Current Visit: No Status: Chronic Assessment and Plan: -c/w home levothyroxin (7) Hypertension Current Visit: No Status: Chronic Assessment and Plan: - c/w home hydralazine (8) Asthma Current Visit: No Status: Chronic Assessment and Plan: No wheezing now. -c/w albuterol as needed - c/w montelukast (9) Wounds, multiple Current Visit: No Status: Chronic Assessment and Plan: as above (10) Hypoglycemia Current Visit: Yes Status: Acute Assessment and Plan: - Intermittent low sugur level, place her on hypoglycemic protocol. - continue renal diet DVT Prophylaxis: On Eliquis (temoparaily on hold for procedure now) - Time Spent with Patient Total time spent is greater than 50% in coordination of care (as documented) at patient's floor/unit and/or counseling patient: 30 min 25 - 35 minutes Plan of Care Discussed with: patient Internal Medicine: Result - Labs CBC & Chem 7: 04/28/18 05:08 04/28/18 05:08 - ABG Interpretation ABG results: PT/INR, D-dimer PT 14.4 Seconds (9.4-12.1) H 04/21/18 12:53 Consult Discharge Plan - Plan Referrals: Peter Vicente DO [Primary Care Provider] - (1) Cellulitis Qualifiers: Site of cellulitis: unspecified site Qualified Code(s): L03.90 - Cellulitis, unspecified (4) Afib Qualifiers: Atrial fibrillation type: paroxysmal Qualified Code(s): I48.0 - Paroxysmal atrial fibrillation (5) Nausea & vomiting Qualifiers: Vomiting type: unspecified Vomiting Intractability: unspecified Qualified Code(s): R11.2 - Nausea with vomiting, unspecified (6) Hypothyroidism Qualifiers: Hypothyroidism type: unspecified Qualified Code(s): E03.9 - Hypothyroidism, unspecified (7) Hypertension Qualifiers: Hypertension type: essential hypertension Qualified Code(s): I10 - Essential (primary) hypertension (8) Asthma Qualifiers: Asthma severity: unspecified severity Asthma persistence: unspecified Asthma complication type: unspecified Qualified Code(s): J45.909 - Unspecified asthma, uncomplicated
[2018-04-29] MEDS: Budesonide/Formoterol 160/4.5 1 PUFF INH IH SCH ×2 (11:25→21:33)
[2018-04-29] MEDS: *HR* Promethazine 25 MG/ML VIAL IVP PRN (12:06)
[2018-04-29] MEDS: Ondansetron ODT 4 MG TAB.RAPDIS SL PRN (15:28)
[2018-04-30 04:43] LABS: Basophils % 0.1 %; Eosinophils # 0.1 K/mcL (0.0-0.6); Eosinophils % 0.9 %; Hematocrit 21.7 % (35.3-44.9); Hemoglobin 6.9 g/dL (11.5-15.4); Immature Granulocytes % 0.9 % (0-4); Lymphocytes # 2.3 K/mcL (0.6-4.6); Lymphocytes % 21.6 %; Mean Corpuscular HGB Conc 31.8 g/dL (31.6-35.5); Mean Corpuscular Hemoglobin 31.5 pg (28.0-33.3); Mean Corpuscular Volume 99.1 fL (83.0-100.0); Mean Platelet Volume 10.1 fL (9.4-12.4); Monocytes # 1.3 K/mcL (0.0-1.3); Monocytes % 11.9 %; Neutrophils # 6.9 K/mcL (1.6-8.9); Platelet Count 240 K/mcL (140-400); Red Blood Count 2.19 M/mcL (3.82-4.97); Red Cell Distribution Width 16.7 % (11.5-14.5); Segmented Neutrophils % 64.6 %
[2018-04-30 04:49] LABS: INR 1.3; Prothrombin Time 14.6 Seconds (9.4-12.1)
[2018-04-30 05:06] LABS: Calcium 7.7 mg/dL (8.6-10.3); Potassium 6.1 mEq/L (3.5-5.1)
[2018-04-30] MEDS: Artificial Tears SOLN 15 ML BOTTLE BOTH EYES SCH ×5 (07:55→21:19)
[2018-04-30] MEDS: Dextrose Gel 15 GM/37.5 ML TUBE PO PRN (09:42)
[2018-04-30] MEDS: Metoprolol XL (24 HR) Succ 25 MG TAB.ER.24H PO SCH (09:43)
[2018-04-30] MEDS: *HR* Amiodarone 200 MG TABLET PO SCH (09:43)
[2018-04-30] MEDS: predniSONE 10 MG TABLET PO SCH (09:43)
[2018-04-30] MEDS: Folic Acid 1 MG TABLET PO SCH (09:43)
[2018-04-30] MEDS: Ondansetron ODT 4 MG TAB.RAPDIS SL PRN (09:55)
--- NOTE | 2018-04-30 10:21 | Nephrology Progress Note ---
Date of Encounter: 04/30/18 Time of Encounter: 10:19 - Assessment and Plan (1) ESRD (end stage renal disease) Current Visit: Yes Status: Chronic ESRD on HD TTS. HD ordered for today. Avoid nephrotoxins. Renal dose. Renal diet, if able to eat. (2) Noncompliance with renal dialysis Current Visit: No Status: Chronic Often misses HD treatments. (3) Anemia Current Visit: No Status: Chronic Goal HGB is 10-11. Hgb is 6.9 today. Type and Screen ordered. 1 unit PRBC ordered for today. 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 (5) AV fistula thrombosis Current Visit: No Status: Acute Pt is NPO for fistulagram with IR. Qualifiers: Encounter type: subsequent encounter Qualified Code(s): T82.868D - Thrombosis due to vascular prosthetic devices, implants and grafts, subsequent encounter (6) Hyperkalemia Current Visit: Yes Status: Acute K 6.1, HD ordered for today. Subjective Principal diagnosis: nausea/vomiting Interval history: Pt seen and examined. Admits to nausea/vomiting. Objective - Vital Signs Vital signs: Vital Signs Temp Pulse Resp BP Pulse Ox 04/30/18 09:41 128/86 04/30/18 07:25 97.3 F L 85 16 128/86 90 04/30/18 05:45 97.8 F 83 15 117/84 93 04/30/18 00:49 98.9 F 80 15 104/45 92 04/29/18 21:40 99.6 F 84 15 112/51 95 04/29/18 21:33 16 90 04/29/18 16:24 98.2 F 77 16 155/92 92 04/29/18 11:18 16 92 04/29/18 11:05 98.2 F 78 16 137/63 91 Intake and Output 04/29/18 04/30/18 04/30/18 23:59 07:59 15:59 Intake Total 0 / 0 Balance 0 / 0 Intake: Oral 0 / 0 Other: Meal NPO Percent of Meal Consumed 0% Blood Glucose* 138 83 - General Appearance General appearance: Present: well-developed, well-nourished EENT: Present: ATNC, hearing intact, vision intact Neck: Present: supple Respiratory: Present: clear Cardiology: Present: no edema, normal S1, normal S2 Dialysis Vascular Access: Venous Catheter (Tunneled Line, DRSG C/D/I) Gastrointestinal: Present: normoactive bowel sounds, no tenderness, no guarding Integumentary: Present: no rash, warm and dry Neurologic: Present: alert and oriented x3 Psychiatric: Present: mood/affect appropriate, cooperative - Lab 04/30/18 04:29 04/30/18 04:29 Most recent lab results Calcium 7.7 mg/dL (8.6-10.3) L 04/30/18 04:29 Phosphorus 4.4 mg/dL (2.7-4.5) 04/21/18 12:53 Magnesium 1.5 mg/dL (1.6-2.6) L 04/21/18 12:53 Consult Discharge Plan - Plan Referrals: Peter Vicente DO [Primary Care Provider] -
[2018-04-30] MEDS: Budesonide/Formoterol 160/4.5 1 PUFF INH IH SCH ×2 (10:59→20:10)
[2018-04-30] MEDS ORDERED: 0.9 % Sodium Chloride 250 ML IVC PRN (11:30)
[2018-04-30] MEDS ORDERED: 0.9 % Sodium Chloride 1,000 ML PRIME SCH (11:30)
--- NOTE | 2018-04-30 12:44 | Internal Med Progress Note ---
Hospitalist Progress Note - Encounter Date of Encounter: 04/30/18 Time of Encounter: 08:00 - Subjective Interval History: Pt feels hot, need fan at bedside. No nausea or vomiting, still weak. Potassium high to 6.1, Hgb low to 6.9. Nephro will have extra HD for her and transfuse 1 unit during HD. D/W Dr Marvin, per IR they cannot fix the fistula, will consult vascular surgery and consider inpatient or outpatient management. - Exam Vitals: Temp Pulse Resp BP Pulse Ox 97.6 F 85 15 134/80 90 04/30/18 11:37 04/30/18 11:37 04/30/18 11:37 04/30/18 11:37 04/30/18 11:37 Exam: Constitutional: Vitals as noted. No Apparent Distress. Eyes : Sclera white, conjunctiva clear, no lid lag, PEARLA. ENT : Grossly normal hearing. Oropharyngeal exam unremarkable. Moist mucus membranes. No JVD. no cervical lymphadenopathy. no thyromegaly or mass. Respiratory : Clear to auscultation bilaterally. No accessory muscle use, rales , rhonchi or wheezes Cardiovascular : RRR, +S1, +S2. no murmur, gallop, rubs. No chest wall tenderness GI/Abdominal : Soft, obese, normal bowel sounds, soft, no peritoneal signs. Musculoskeletal: Wasting of her lower extremity. Left leg swelling, no calf tenderness Neurological: AAO X3, CN II-XII grossly intact, grossly normal motor and sensory exam. Skin: Multiple wounds on Lt thigh and Rt thigh associated erythema and tenderness with pustular discharge and some necrotic material. 20x15 cm wound on Rt and Left abdomen with pustular drainage. - Assessment and Plan (1) Cellulitis Current Visit: No Status: Acute Assessment and Plan: Due to Calciphylaxis - Cont wound care - Cont Sodium Thiosulfate during HD (2) ESRD (end stage renal disease) Current Visit: Yes Status: Chronic Assessment and Plan: - Cont HD per nephro - continue cinacalcet - Consider vascular consult for fistula issue. (3) DVT prophylaxis Current Visit: No Status: Acute Assessment and Plan: On Eliquis (on hold now for possible fistula procedure). (4) Afib Current Visit: No Status: Chronic Assessment and Plan: HR is controlled - c/w home amiodarone and metoprolol - On Eliquis for AC (on hold for possible fistula procedure. (5) Nausea & vomiting Current Visit: No Status: Resolved Assessment and Plan: EGD shows Schitzki ring and gastritis. Cont home PPI. F/U with GI. Symptomatic treatment for nausea (6) Hypothyroidism Current Visit: No Status: Chronic Assessment and Plan: -c/w home levothyroxin (7) Hypertension Current Visit: No Status: Chronic Assessment and Plan: - c/w home hydralazine (8) Asthma Current Visit: No Status: Chronic Assessment and Plan: No wheezing now. -c/w albuterol as needed - c/w montelukast (9) Wounds, multiple Current Visit: No Status: Chronic Assessment and Plan: as above (10) Hypoglycemia Current Visit: Yes Status: Acute Assessment and Plan: - Intermittent low sugur level, place her on hypoglycemic protocol. - continue renal diet DVT Prophylaxis: On Eliquis (temoparaily on hold for procedure now) - Summary of Assessment and Plan Summary of Assessment and Plan: D/C home with home health if no further procedure needed. - Time Spent with Patient Total time spent is greater than 50% in coordination of care (as documented) at patient's floor/unit and/or counseling patient: 30 min 25 - 35 minutes Plan of Care Discussed with: patient Internal Medicine: Result - Labs CBC & Chem 7: 04/30/18 04:29 04/30/18 04:29 Labs: Short CBC 04/30/18 Range/Units 04:29 WBC 10.7 (4.3-11.1) K/mcL Hgb 6.9 L (11.5-15.4) g/dL Hct 21.7 L (35.3-44.9) % Plt Count 240 (140-400) K/mcL Neutrophils # 6.9 (1.6-8.9) K/mcL BMP 04/30/18 04:29 Sodium 135 L Potassium 6.1 H Chloride 99 Carbon Dioxide 29 BUN 21 H Creatinine 3.42 H Glucose 78 Calcium 7.7 L - ABG Interpretation ABG results: PT/INR, D-dimer PT 14.6 Seconds (9.4-12.1) H 04/30/18 04:29 Consult Discharge Plan - Plan Referrals: Peter Vicente DO [Primary Care Provider] - (1) Cellulitis Qualifiers: Site of cellulitis: unspecified site Qualified Code(s): L03.90 - Cellulitis, unspecified (4) Afib Qualifiers: Atrial fibrillation type: paroxysmal Qualified Code(s): I48.0 - Paroxysmal atrial fibrillation (5) Nausea & vomiting Qualifiers: Vomiting type: unspecified Vomiting Intractability: unspecified Qualified Code(s): R11.2 - Nausea with vomiting, unspecified (6) Hypothyroidism Qualifiers: Hypothyroidism type: unspecified Qualified Code(s): E03.9 - Hypothyroidism, unspecified (7) Hypertension Qualifiers: Hypertension type: essential hypertension Qualified Code(s): I10 - Essential (primary) hypertension (8) Asthma Qualifiers: Asthma severity: unspecified severity Asthma persistence: unspecified Asthma complication type: unspecified Qualified Code(s): J45.909 - Unspecified asthma, uncomplicated
--- NOTE | 2018-04-30 12:50 | IR Progress Note ---
Vital Signs: Vital Signs/O2 Sat, Most Current Temp Pulse Resp BP Pulse Ox 97.6 F 85 15 134/80 90 04/30/18 11:37 04/30/18 11:37 04/30/18 11:37 04/30/18 11:37 04/30/18 11:37 Recent Labs: Lab Results 04/30/18 04/30/18 04/28/18 04:29 04:29 05:08 WBC 10.7 RBC 2.19 L Hgb 6.9 L Hct 21.7 L MCV 99.1 MCH 31.5 MCHC 31.8 RDW 16.7 H Plt Count 240 MPV 10.1 Neutrophils # 6.9 Lymphocytes # 2.3 Monocytes # 1.3 Eosinophils # 0.1 Basophils # 0.0 Sodium 135 L 135 L Potassium 6.1 H 5.0 Chloride 99 96 L Carbon Dioxide 29 31 H BUN 21 H 23 H Creatinine 3.42 H 3.87 H Est GFR ( Amer) 18 L 15 L Est GFR (Non-Af Amer) 15 L 13 L BUN/Creatinine Ratio 6 6 Glucose 78 67 L Calcium 7.7 L 7.6 L 04/28/18 05:08 WBC 9.8 RBC 2.49 L Hgb 7.5 L Hct 23.7 L MCV 95.2 MCH 30.1 MCHC 31.6 RDW 15.9 H Plt Count 206 MPV 10.3 Neutrophils # 6.3 Lymphocytes # 2.0 Monocytes # 1.2 Eosinophils # 0.2 Basophils # 0.0 Sodium Potassium Chloride Carbon Dioxide BUN Creatinine Est GFR ( Amer) Est GFR (Non-Af Amer) BUN/Creatinine Ratio Glucose Calcium Assessment and Plan Patient is a 43yo female with PMHx significant for ESRD, and has a LUE AVF in place. Currently undergoing HD through a tunneled HD catheter. We have been asked to perform a declot of her AVF. When discussing with patient, she reports that her AVF has not been used in a couple of months, and she has been undergoing HD through her catheter. When a pt is out this far with a clotted access, the concern is both for more organized thrombus that is harder to get out, as well as sending all this organized thrombus to the patients lungs which may not lyse as easily. Given this length of time, I would recommend that this be done as an open thrombectomy. I also discussed this with the [facility] physician who is covering [place] tomorrow, and he is in agreement with this as the best plan as well for this patient. I called and discussed this with Dr. Marvin who is fine with this plan. Usama Zarco MD [facility]
[2018-04-30] MEDS: Silvasorb 44.4 ML TUBE TP SCH (21:19)
[2018-05-01] MEDS ORDERED: Albuterol 2.5 MG/3 ML NEBULIZER IH PRN (03:38)
[2018-05-01] MEDS ORDERED: Albuterol 2.5 MG/3 ML NEBULIZER ONE (03:39)
[2018-05-01 05:26] LABS: Basophils % 0.2 %; Eosinophils # 0.1 K/mcL (0.0-0.6); Eosinophils % 0.8 %; Hematocrit 28.6 % (35.3-44.9); Immature Granulocytes % 0.8 % (0-4); Lymphocytes % 16.7 %; Mean Corpuscular HGB Conc 32.5 g/dL (31.6-35.5); Mean Platelet Volume 10.2 fL (9.4-12.4); Monocytes # 1.4 K/mcL (0.0-1.3); Monocytes % 11.5 %; Neutrophils # 8.3 K/mcL (1.6-8.9); Platelet Count 233 K/mcL (140-400); Red Blood Count 3.21 M/mcL (3.82-4.97)
[2018-05-01 05:31] LABS: Calcium 7.6 mg/dL (8.6-10.3)
[2018-05-01 05:36] LABS: Hemoglobin 9.3 g/dL (11.5-15.4); Mean Corpuscular Volume 89.1 fL (83.0-100.0)
[2018-05-01] MEDS ORDERED: 0.9 % Sodium Chloride 2,000 ML ONE (06:35)
[2018-05-01] MEDS: Budesonide/Formoterol 160/4.5 1 PUFF INH IH SCH ×2 (07:56→19:54)
[2018-05-01] MEDS: predniSONE 10 MG TABLET PO SCH (08:33)
[2018-05-01] MEDS: Folic Acid 1 MG TABLET PO SCH (08:34)
[2018-05-01] MEDS: *HR* Amiodarone 200 MG TABLET PO SCH (08:34)
[2018-05-01] MEDS ORDERED: 0.9 % Sodium Chloride 250 ML IVC PRN (08:34)
[2018-05-01] MEDS: Metoprolol XL (24 HR) Succ 25 MG TAB.ER.24H PO SCH (08:34)
[2018-05-01] MEDS: Artificial Tears SOLN 15 ML BOTTLE BOTH EYES SCH ×4 (08:34→22:19)
[2018-05-01] MEDS ORDERED: 0.9 % Sodium Chloride 1,000 ML PRIME SCH (08:45)
--- NOTE | 2018-05-01 10:18 | Nephrology Progress Note ---
Date of Encounter: 05/01/18 Time of Encounter: 10:17 - Assessment and Plan (1) ESRD (end stage renal disease) Current Visit: Yes Status: Chronic ESRD on HD TTS. HD in progress for today. Avoid nephrotoxins. Renal dose. Renal diet, if able to eat. (2) Noncompliance with renal dialysis Current Visit: No Status: Chronic Often misses HD treatments. (3) Anemia Current Visit: No Status: Chronic Goal HGB is 10-11. Hgb is 9.3 today after 1 unit PRBC. 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 (5) AV fistula thrombosis Current Visit: No Status: Acute Fistulagram completed yesterday, she does need a thrombectomy, this will need to be set up outpatient with Dr. Alvares in [place]. Qualifiers: Encounter type: subsequent encounter Qualified Code(s): T82.868D - Thrombosis due to vascular prosthetic devices, implants and grafts, subsequent encounter (6) Hyperkalemia Current Visit: Yes Status: Acute K 5, HD in progress for today. Subjective Principal diagnosis: nausea/vomiting Interval history: Pt seen and examined. Admits to nausea/vomiting. Denies CP/SOB. Objective - Vital Signs Vital signs: Vital Signs Temp Pulse Resp BP Pulse Ox 05/01/18 07:56 16 90 05/01/18 07:55 96.6 F L 83 14 145/89 96 05/01/18 04:01 16 86 05/01/18 03:58 97.8 F 85 18 145/89 96 05/01/18 01:14 98.4 F 79 18 138/77 90 05/01/18 01:10 16 92 04/30/18 22:36 98.3 F 78 16 147/89 91 04/30/18 20:10 17 96 04/30/18 16:12 98.0 F 81 17 124/78 96 04/30/18 15:14 97.4 F L 18 151/65 04/30/18 14:50 168/105 04/30/18 14:35 164/91 04/30/18 14:20 185/77 04/30/18 14:10 97.3 F L 75 18 161/99 04/30/18 14:05 151/108 04/30/18 13:55 97.2 F L 76 18 172/56 04/30/18 13:50 152/81 04/30/18 13:40 97.0 F L 77 18 169/72 04/30/18 13:35 158/87 04/30/18 13:20 162/70 04/30/18 13:05 147/49 04/30/18 12:50 151/73 04/30/18 12:35 169/88 04/30/18 12:20 135/52 04/30/18 12:05 152/83 04/30/18 11:50 97.1 F L 18 156/88 04/30/18 11:37 97.6 F 85 15 134/80 90 04/30/18 10:59 18 93 Intake and Output 04/30/18 05/01/18 05/01/18 23:59 07:59 15:59 Intake Total 120 / 120 0 / 0 Balance 120 / 120 0 / 0 Intake: Oral 120 / 120 0 / 0 Other: Meal Dinner Percent of Meal Consumed 100% Weight 78.8 kg Blood Glucose* 88 75 Patient Weight 05/01/18 23:59 Weight 78.8 kg - General Appearance General appearance: Present: well-developed, well-nourished EENT: Present: ATNC Neck: Present: supple Respiratory: Present: clear Cardiology: Present: no edema, normal S1, normal S2 Dialysis Vascular Access: Venous Catheter (Tunneled Line, DRSG C/D/I) Gastrointestinal: Present: normoactive bowel sounds, no tenderness, no guarding Integumentary: Present: no rash, warm and dry Neurologic: Present: alert and oriented x3 Psychiatric: Present: mood/affect appropriate, cooperative - Lab 05/01/18 05:02 05/01/18 05:02 Most recent lab results Calcium 7.6 mg/dL (8.6-10.3) L 05/01/18 05:02 Phosphorus 4.4 mg/dL (2.7-4.5) 04/21/18 12:53 Magnesium 1.5 mg/dL (1.6-2.6) L 04/21/18 12:53 Consult Discharge Plan - Plan Referrals: Peter Vicente DO [Primary Care Provider] -
[2018-05-01] MEDS: Sodium Thiosulfate 25 GM in EMPTY BAG 1 EACH IVPB SCH (11:30)
--- NOTE | 2018-05-01 13:06 | Internal Med Progress Note ---
Hospitalist Progress Note - Encounter Date of Encounter: 05/01/18 Time of Encounter: 13:04 - Subjective Interval History: Pt denies fever chills, N/V or diarrhea. She denies CP or SOB. She denies abdominal pain. - Exam Vitals: Temp Pulse Resp BP Pulse Ox 96.7 F L 83 18 193/65 90 05/01/18 09:15 05/01/18 07:55 05/01/18 09:15 05/01/18 10:30 05/01/18 07:56 Exam: Constitutional: Vitals as noted. No Apparent Distress. Eyes : Sclera white, conjunctiva clear, no lid lag, PEARLA. ENT : Grossly normal hearing. Oropharyngeal exam unremarkable. Moist mucus membranes. No JVD. no cervical lymphadenopathy. no thyromegaly or mass. Respiratory : Clear to auscultation bilaterally. No accessory muscle use, rales , rhonchi or wheezes Cardiovascular : RRR, +S1, +S2. no murmur, gallop, rubs. No chest wall tenderness GI/Abdominal : Soft, obese, normal bowel sounds, soft, no peritoneal signs. Musculoskeletal: Wasting of her lower extremity. Left leg swelling, no calf tenderness Neurological: AAO X3, CN II-XII grossly intact, grossly normal motor and sensory exam. Skin: Multiple wounds on Lt thigh and Rt thigh associated erythema and tenderness with pustular discharge and some necrotic material. 20x15 cm wound on Rt and Left abdomen with pustular drainage. - Assessment and Plan (1) ESRD (end stage renal disease) Current Visit: Yes Status: Chronic Assessment and Plan: - Cont HD per nephro - continue cinacalcet - Vascular consulted for fistula issue and awaiting recommendations. - Fistulogram completed 04/30/2018. she will need thrombectomy per nephrology. (2) Afib Current Visit: No Status: Chronic Assessment and Plan: HR is controlled - c/w home amiodarone and metoprolol - On Eliquis for AC (on hold for possible fistula procedure. (3) Nausea & vomiting Current Visit: No Status: Resolved Assessment and Plan: EGD shows Schitzki ring and gastritis. Cont home PPI. F/U with GI. Symptomatic treatment for nausea (4) Hypothyroidism Current Visit: No Status: Chronic Assessment and Plan: -c/w home levothyroxin (5) Asthma Current Visit: No Status: Chronic Assessment and Plan: No wheezing now. 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 unlikely cellulitis, more likely calciphylaxis. (8) Wounds, multiple Current Visit: No Status: Chronic Assessment and Plan: as above (9) Hypoglycemia Current Visit: Yes Status: Acute Assessment and Plan: - Intermittent low sugar level, placed her on hypoglycemic protocol. - continue renal diet DVT Prophylaxis: On Eliquis (on hold now for possible fistula procedure). - Summary of Assessment and Plan Summary of Assessment and Plan: Ms. Alexis is a 43 year old female with past medical history of ESRD on HD TTS, atrial fibrillation, hypertension, hyperlipidemia, hypothyroidism, asthma and calciphylaxis came in with nausea and vomiting for past 2-3 days. Patient notably had CLABSI on her last admission. Blood cultures from her permacath staphylococcus epidermidis. She did not finish her course of vancomycin at that time and left AMA because she felt tired of the hospital. He is coming with complain of nausea and vomiting about 4-5 times a day since Monday. She has not had dialysis since then. - Time Spent with Patient Total time spent is greater than 50% in coordination of care (as documented) at patient's floor/unit and/or counseling patient: less than 15 minutes Plan of Care Discussed with: patient Internal Medicine: Result - Labs CBC & Chem 7: 05/01/18 05:02 05/01/18 05:02 Labs: Short CBC 05/01/18 Range/Units 05:02 WBC 11.9 H (4.3-11.1) K/mcL Hgb 9.3 L D (11.5-15.4) g/dL Hct 28.6 L (35.3-44.9) % Plt Count 233 (140-400) K/mcL Neutrophils # 8.3 (1.6-8.9) K/mcL BMP 05/01/18 05:02 Sodium 134 L Potassium 5.0 Chloride 98 Carbon Dioxide 27 BUN 15 Creatinine 2.52 H Glucose 88 Calcium 7.6 L - ABG Interpretation ABG results: PT/INR, D-dimer PT 14.6 Seconds (9.4-12.1) H 04/30/18 04:29 Consult Discharge Plan - Plan Referrals: Peter Vicente DO [Primary Care Provider] - (2) Afib Qualifiers: Atrial fibrillation type: paroxysmal Qualified Code(s): I48.0 - Paroxysmal atrial fibrillation (3) Nausea & vomiting Qualifiers: Vomiting type: unspecified Vomiting Intractability: unspecified Qualified Code(s): R11.2 - Nausea with vomiting, unspecified (4) Hypothyroidism Qualifiers: Hypothyroidism type: unspecified Qualified Code(s): E03.9 - Hypothyroidism, unspecified (5) Asthma Qualifiers: Asthma severity: unspecified severity Asthma persistence: unspecified Asthma complication type: unspecified Qualified Code(s): J45.909 - Unspecified asthma, uncomplicated (6) Hypertension Qualifiers: Hypertension type: essential hypertension Qualified Code(s): I10 - Essential (primary) hypertension
[2018-05-01] MEDS: *HR* Promethazine 25 MG/ML VIAL IVP PRN (17:15)
[2018-05-01] MEDS: Silvasorb 44.4 ML TUBE TP SCH (22:24)
[2018-05-01] MEDS: *HR* OxyCODONE/APAP 5/325 TABLET PO PRN (22:36)
[2018-05-02] MEDS: *HR* OxyCODONE/APAP 5/325 TABLET PO PRN (06:31)
[2018-05-02 07:08] LABS: Hematocrit 25.8 % (35.3-44.9); Hemoglobin 8.2 g/dL (11.5-15.4); Mean Corpuscular HGB Conc 31.8 g/dL (31.6-35.5); Mean Corpuscular Volume 91.2 fL (83.0-100.0); Mean Platelet Volume 9.9 fL (9.4-12.4); Platelet Count 198 K/mcL (140-400); Red Blood Count 2.83 M/mcL (3.82-4.97); Red Cell Distribution Width 22.3 % (11.5-14.5)
[2018-05-02 07:25] LABS: Calcium 7.6 mg/dL (8.6-10.3); Potassium 5.3 mEq/L (3.5-5.1)
[2018-05-02] MEDS: Budesonide/Formoterol 160/4.5 1 PUFF INH IH SCH ×2 (07:46→20:00)
[2018-05-02] MEDS ORDERED: Albuterol 2.5 MG/3 ML NEBULIZER IH PRN (08:41)
[2018-05-02] MEDS ORDERED: 0.9 % Sodium Chloride 2,000 ML ONE (09:00)
[2018-05-02] MEDS ORDERED: 0.9 % Sodium Chloride 250 ML IVC PRN (09:17)
[2018-05-02] MEDS ORDERED: 0.9 % Sodium Chloride 1,000 ML PRIME SCH (09:30)
[2018-05-02] MEDS: *HR* Amiodarone 200 MG TABLET PO SCH (09:59)
[2018-05-02] MEDS: predniSONE 10 MG TABLET PO SCH (09:59)
[2018-05-02] MEDS: Metoprolol XL (24 HR) Succ 25 MG TAB.ER.24H PO SCH (09:59)
[2018-05-02] MEDS: Artificial Tears SOLN 15 ML BOTTLE BOTH EYES SCH ×4 (09:59→22:02)
[2018-05-02] MEDS: Folic Acid 1 MG TABLET PO SCH (09:59)
--- NOTE | 2018-05-02 10:36 | Nephrology Progress Note ---
Date of Encounter: 05/02/18 Time of Encounter: 10:34 - Assessment and Plan (1) ESRD (end stage renal disease) Current Visit: Yes Status: Chronic ESRD on HD TTS. HD in progress for today. Avoid nephrotoxins. Renal dose. Renal diet, if able to eat. (2) Anemia Current Visit: No Status: Chronic Goal HGB is 10-11, and continue BARBARA. Transfusion parameters as per primary. Qualifiers: Anemia type: due to chronic kidney disease Chronic kidney disease stage: on chronic dialysis Qualified Code(s): N18.6 - End stage renal disease; D63.1 - Anemia in chronic kidney disease; Z99.2 - Dependence on renal dialysis (3) Calciphylaxis Current Visit: No Status: Chronic Continue Sodium thiosulfate with HD treatments (4) AV fistula thrombosis Current Visit: No Status: Acute Vascular surgery consulted. Qualifiers: Encounter type: subsequent encounter Qualified Code(s): T82.868D - Thrombosis due to vascular prosthetic devices, implants and grafts, subsequent encounter (5) Nausea & vomiting Current Visit: No Status: Resolved Per primary. Qualifiers: Vomiting type: unspecified Vomiting Intractability: unspecified Qualified Code(s): R11.2 - Nausea with vomiting, unspecified (6) Hyperkalemia Current Visit: Yes Status: Acute K continues to be elevated, HD in progress for today. Subjective Principal diagnosis: nausea/vomiting Interval history: Pt seen and examined. Admits nausea/vomiting is better. Denies CP/SOB. Objective - Vital Signs Vital signs: Vital Signs Temp Pulse Resp BP Pulse Ox 05/02/18 07:07 98.8 F 81 16 129/77 87 05/02/18 04:43 98.8 F 86 16 138/64 96 05/02/18 00:44 98.8 F 81 16 121/62 91 05/01/18 20:44 99 F 84 16 157/86 93 05/01/18 19:55 16 90 05/01/18 15:46 99.2 F 80 14 151/90 93 05/01/18 12:35 96.7 F L 18 193/83 05/01/18 12:15 165/90 05/01/18 12:00 162/84 05/01/18 11:45 176/82 05/01/18 11:30 165/71 05/01/18 11:15 182/70 10/16/18 11:00 172/67 05/01/18 10:45 181/73 Intake and Output 05/01/18 05/02/18 05/02/18 23:59 07:59 15:59 Intake Total 120 / 120 Balance 120 / 120 Intake: Oral 120 / 120 Other: Meal Breakfast Percent of Meal Consumed 25% Weight 72.2 kg Blood Glucose* 117 72 Patient Weight 05/02/18 23:59 Weight 72.2 kg - General Appearance General appearance: Present: well-developed, well-nourished EENT: Present: ATNC, hearing intact, vision intact Neck: Present: supple Respiratory: Present: clear Cardiology: Present: no edema, normal S1, normal S2 Dialysis Vascular Access: Venous Catheter (Tunneled Line, DRSG C/D/I) Gastrointestinal: Present: normoactive bowel sounds, no tenderness, no guarding Integumentary: Present: no rash, warm and dry Neurologic: Present: alert and oriented x3 Psychiatric: Present: mood/affect appropriate, cooperative - Lab 05/02/18 06:48 05/02/18 06:48 Most recent lab results Calcium 7.6 mg/dL (8.6-10.3) L 05/02/18 06:48 Phosphorus 4.4 mg/dL (2.7-4.5) 04/21/18 12:53 Magnesium 1.5 mg/dL (1.6-2.6) L 04/21/18 12:53 Consult Discharge Plan - Plan Referrals: Peter Vicente DO [Primary Care Provider] -
--- NOTE | 2018-05-02 14:15 | Internal Med Progress Note ---
Hospitalist Progress Note - Encounter Date of Encounter: 05/02/18 Time of Encounter: 14:13 - Subjective Interval History: Pt denies fever chills, N/V or diarrhea. She denies CP or SOB. She denies abdominal pain. - Exam Vitals: Temp Pulse Resp BP Pulse Ox 99.0 F 82 15 143/90 92 05/02/18 11:27 05/02/18 11:27 05/02/18 11:27 05/02/18 11:27 05/02/18 11:27 Exam: Constitutional: Vitals as noted. No Apparent Distress. Eyes : Sclera white, conjunctiva clear, no lid lag, PEARLA. ENT : Grossly normal hearing. Oropharyngeal exam unremarkable. Moist mucus membranes. No JVD. no cervical lymphadenopathy. no thyromegaly or mass. Respiratory : Clear to auscultation bilaterally. No accessory muscle use, rales , rhonchi or wheezes Cardiovascular : RRR, +S1, +S2. no murmur, gallop, rubs. No chest wall tenderness GI/Abdominal : Soft, obese, normal bowel sounds, soft, no peritoneal signs. Musculoskeletal: Wasting of her lower extremity. Left leg swelling, no calf tenderness Neurological: AAO X3, CN II-XII grossly intact, grossly normal motor and sensory exam. Skin: Multiple wounds on Lt thigh and Rt thigh associated erythema and tenderness with pustular discharge and some necrotic material. 20x15 cm wound on Rt and Left abdomen with pustular drainage. - Assessment and Plan (1) ESRD (end stage renal disease) Current Visit: Yes Status: Chronic Assessment and Plan: - Cont HD per nephro - continue cinacalcet - Vascular consulted for fistula issue and awaiting recommendations. - Fistulogram completed 04/30/2018. She will need thrombectomy per IR. - Discussed with vascular and will see pt in consult. (2) Afib Current Visit: No Status: Chronic Assessment and Plan: HR is controlled - c/w home amiodarone and metoprolol - On Eliquis for AC (on hold for possible fistula procedure. (3) Nausea & vomiting Current Visit: No Status: Resolved Assessment and Plan: EGD shows Schitzki ring and gastritis. Cont home PPI. F/U with GI. Symptomatic treatment for nausea (4) Hypothyroidism Current Visit: No Status: Chronic Assessment and Plan: -c/w home levothyroxin (5) Asthma Current Visit: No Status: Chronic Assessment and Plan: No wheezing now. 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 unlikely cellulitis, more likely calciphylaxis. (8) Wounds, multiple Current Visit: No Status: Chronic Assessment and Plan: as above. Pt set up for out pt wound care management. (9) Hypoglycemia Current Visit: Yes Status: Acute Assessment and Plan: - Intermittent low sugar level, placed her on hypoglycemic protocol. - continue renal diet DVT Prophylaxis: On Eliquis (on hold now for possible fistula procedure). - Summary of Assessment and Plan Summary of Assessment and Plan: Ms. Alexis is a 43 year old female with past medical history of ESRD on HD TTS, atrial fibrillation, hypertension, hyperlipidemia, hypothyroidism, asthma and calciphylaxis came in with nausea and vomiting for past 2-3 days. Patient notably had CLABSI on her last admission. Blood cultures from her permacath staphylococcus epidermidis. She did not finish her course of vancomycin at that time and left AMA because she felt tired of the hospital. He is coming with complain of nausea and vomiting about 4-5 times a day since Monday. She has not had dialysis since then. - Time Spent with Patient Total time spent is greater than 50% in coordination of care (as documented) at patient's floor/unit and/or counseling patient: less than 15 minutes Plan of Care Discussed with: patient Internal Medicine: Result - Labs CBC & Chem 7: 05/02/18 06:48 05/02/18 06:48 Labs: Short CBC 05/02/18 Range/Units 06:48 WBC 8.4 (4.3-11.1) K/mcL Hgb 8.2 L (11.5-15.4) g/dL Hct 25.8 L (35.3-44.9) % Plt Count 198 (140-400) K/mcL BMP 05/02/18 06:48 Sodium 138 Potassium 5.3 H Chloride 101 Carbon Dioxide 29 BUN 12 Creatinine 2.28 H Glucose 66 L Calcium 7.6 L - ABG Interpretation ABG results: PT/INR, D-dimer PT 14.6 Seconds (9.4-12.1) H 04/30/18 04:29 Consult Discharge Plan - Plan Referrals: Peter Vicente DO [Primary Care Provider] - (2) Afib Qualifiers: Atrial fibrillation type: paroxysmal Qualified Code(s): I48.0 - Paroxysmal atrial fibrillation (3) Nausea & vomiting Qualifiers: Vomiting type: unspecified Vomiting Intractability: unspecified Qualified Code(s): R11.2 - Nausea with vomiting, unspecified (4) Hypothyroidism Qualifiers: Hypothyroidism type: unspecified Qualified Code(s): E03.9 - Hypothyroidism, unspecified (5) Asthma Qualifiers: Asthma severity: unspecified severity Asthma persistence: unspecified Asthma complication type: unspecified Qualified Code(s): J45.909 - Unspecified asthma, uncomplicated (6) Hypertension Qualifiers: Hypertension type: essential hypertension Qualified Code(s): I10 - Essential (primary) hypertension
--- NOTE | 2018-05-02 19:39 | Vascular/Endovasc Consult Note ---
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 It is unclear how many weeks or months and patient axis has been thrombosed at this time. Due to her history it is unlikely there is any value in attempting to resurrect this access site. Must likely the patient would need a new access. However she has not had evaluation as best I can tell of her arterial or venous system which appears to be compromised in both upper extremities. Therefore recommended noninvasive testing of both the arterial and venous systems to better understand what options are available to the patient. Qualifiers: Encounter type: subsequent encounter Qualified Code(s): T82.868D - Thrombosis due to vascular prosthetic devices, implants and grafts, subsequent encounter (2) History of kidney transplant Current Visit: No Status: Chronic Status post cadaveric kidney transplant at [facility] 2007 (3) Kidney failure Current Visit: No Status: Chronic Multiyear history of chronic kidney failure Qualifiers: Renal failure chronicity: chronic Chronic kidney disease stage: on chronic dialysis Qualified Code(s): N18.6 - End stage renal disease; Z99.2 - Dependence on renal dialysis - History of Present Illness Consult date: 05/02/18 Consult reason: Recurrent thrombosis of left upper extremity vascular access site Chief complaint: Chronic dialysis History of present illness: Ms. Alexis is a 43 year old female Seen on to a for evaluation of her vascular access status. The patient has a very complex history that is not completely available to me at the time of this dictation. As best I can tell the patient developed renal insufficiency many years ago. She underwent a cadaveric kidney transplantation in 2007 at [facility] [place]. She then went on to have progressive loss of kidney function and had a left upper extremity arterial venous fistula created at the antecubital region and [place] approximately 3-4 years ago. This access site has had multiple problems and has had recurrent interventions including endovascular and open procedures. The patient had some type of graft placed as well in the antecubital area. The access site has thrombosed and has been thrombosed for a number of months. It is unclear as to when the access actually thrombosed. The patient was given a right-sided permanent hemodialysis catheter. Apparently this was infected and was removed and she now has a left sided permanent hemodialysis catheter. Interventional radiology was consulted to evaluate the left antecubital access site and did not recommend endovascular intervention due to the chronicity of the thrombus. The patient has no symptoms at this time referable to the antecubital access in this area does not appear to be under consideration as a source of infection or sepsis. The patient has had no recent noninvasive testing of her arterial or venous system of the upper extremities. Past Med Surg Social Fam HX - Past Medical History Medical history: asthma, atrial fibrillation, diabetes, dialysis, GI bleed, hyperlipidemia, hypertension, renal disease, thyroid disease Additional medical history: ANEMIA, BLEEDING ULCER,. KIDNEY DIALYSIS Psychiatric history: no psych history - Past Surgical History Surgical History: appendectomy, cholecystectomy, thyroidectomy, transplant, other Additional surgical history: KIDNEY TRANSPLANT 2007, TUBAL LIGATION, shunt danya - Social History Smoking Status: Never smoker Smokeless Tobacco Status: No Alcohol use: none Drug use: none - Family History Father Adopted: No Family Member Ethnicity: Non- Living Status: Hx Family Cardiac Disorders: Yes Hx Family Respiratory Disorders: Yes Hx Family Cancer: Yes Hx Family GI Disorders: No Hx Family Endocrine Disorder: Yes Hx Family Neuromuscular Disorders: No Hx Family Neurologic Disorders: No Hx Family HEENT Disorders: No Hx Family Autoimmune Disorders: No Mother Adopted: No Living Status: Hx Family Cardiac Disorders: Yes Hx Family Respiratory Disorders: No Hx Family Cancer: Yes Hx Family GI Disorders: No Hx Family Endocrine Disorder: No Hx Family Neuromuscular Disorders: No Hx Family Neurologic Disorders: No Hx Family HEENT Disorders: No Hx Family Autoimmune Disorders: No Medications and Allergies Albuterol Sulfate [Albuterol Inhaler] 2 puff IH Q4H PRN 09/09/16 [History] Amiodarone [Cordarone] 200 mg PO DAILY 09/09/16 [History] Atorvastatin [Lipitor] 40 mg PO HS 09/09/16 [History] Budesonide/Formoterol 160/4.5 [Symbicort 160/4.5] 2 puff IH BIDR 09/09/16 [ History] Levothyroxine Sodium [Synthroid] 200 mcg PO QAM 09/09/16 [History] Omeprazole [PriLOSEC] 20 mg PO DAILY 09/09/16 [History] hydrALAZINE [HydrALAZINE] 50 mg PO BID 09/09/16 [History] Montelukast [Singulair] 10 mg PO DAILY 02/16/17 [History] Folic Acid 1 mg PO DAILY 01/07/18 [History] Metoprolol Succinate [Toprol Xl] 25 mg PO DAILY 01/07/18 [History] Apixaban [Eliquis] 5 mg PO BID #60 tablet 01/18/18 [Rx] Collagenase Oint [Santyl] 1 appl TP HS tube 02/16/18 [Rx] Darbepoetin [Aranesp] 60 mcg SQ QWEEK syringe 02/16/18 [Rx] Cinacalcet [Sensipar] 30 mg PO DAILY 30 Days #30 tablet 03/22/18 [Rx] predniSONE [PredniSONE] 10 mg PO DAILY tablet 03/22/18 [Rx] Ondansetron ODT [Zofran ODT] 4 mg SL Q8HR PRN #12 tab.rapdis 04/05/18 [Rx] Acetaminophen [Tylenol] 1,000 mg PO Q6HR PRN 04/21/18 [History] cloNIDine HCl [CloNIDine HCl] 0.1 mg PO TID 04/21/18 [History] 3 Allergy/AdvReac Type Severity Reaction Status Date / Time Warfarin [From Coumadin] Allergy Anaphylaxis Verified 04/21/18 11:18 heparin AdvReac Severe Unresponsiv Verified 04/24/18 11:44 e All Systems Review: The remainder of the systems were reviewed and are negative Exam General: Present: Conversant, No Apparent Distress HEENT: Present: Atraumatic, Normocephaly, Trachea midline Neck: Absent: JVD, Midline deformity, Tracheal deviation Cardiac: Present: Reg Rate and Rhythm, No Murmur Lungs: Present: Normal Breath Sounds Neuro: Present: Alert and responsive, No focal deficits noted, Cranial nerves grossly intact Abdomen: Present: Soft, Non-tender Vascular: Present: Pulse, absent (Unable to palpate radial or ulnar pulses bilaterally.), Other (Surgical scars and discoloration at the left antecubital area. Palpation of synthetic graft in the very distal mid anterior aspect of the left upper arm. I do not palpate radial or ulnar pulses bilaterally. The patient has palpable brachial artery pulses bilaterally. There is no bruit over the left antecubital access site. Patient has an indwelling left sided permanent hemodialysis catheter. There is no redness or tenderness or swelling along the tract of the catheter.) Skin: Present: No rashes noted on visualized skin Consult Discharge Plan - Plan Referrals: Peter Vicente DO [Primary Care Provider] -
[2018-05-02] MEDS: Silvasorb 44.4 ML TUBE TP SCH (23:30)
[2018-05-03] MEDS: Budesonide/Formoterol 160/4.5 1 PUFF INH IH SCH ×2 (07:50→20:31)
[2018-05-03 11:42] LABS: Hematocrit 24.6 % (35.3-44.9); Hemoglobin 7.8 g/dL (11.5-15.4); Immature Platelets 4.2 % (1.1-6.1); Mean Corpuscular HGB Conc 31.7 g/dL (31.6-35.5); Mean Corpuscular Hemoglobin 29.3 pg (28.0-33.3); Mean Corpuscular Volume 92.5 fL (83.0-100.0); Mean Platelet Volume 10.4 fL (9.4-12.4); Red Blood Count 2.66 M/mcL (3.82-4.97); Red Cell Distribution Width 22.2 % (11.5-14.5)
[2018-05-03 12:21] LABS: Calcium 7.5 mg/dL (8.6-10.3); Potassium 4.5 mEq/L (3.5-5.1)
[2018-05-03] MEDS: Artificial Tears SOLN 15 ML BOTTLE BOTH EYES SCH ×3 (12:39→20:23)
[2018-05-03] MEDS: *HR* Amiodarone 200 MG TABLET PO SCH (12:39)
[2018-05-03] MEDS: predniSONE 10 MG TABLET PO SCH (12:39)
[2018-05-03] MEDS: Folic Acid 1 MG TABLET PO SCH (12:39)
[2018-05-03] MEDS: Metoprolol XL (24 HR) Succ 25 MG TAB.ER.24H PO SCH (12:40)
--- NOTE | 2018-05-03 13:14 | Event Note ---
Date of Encounter: 05/03/18 Time of Encounter: 09:40 Progress note completed on paper chart due to [facility] downtime. Please refer to it for completion. In brief, patient hospitalized here for nausea and vomiting along with thrombosed vascular access. Plan for open thrombectomy. Vascular surgery following. Venous mapping ordered for today. Will follow results. Nephrology following for dialysis needs. On TTS schedule through a tunneled catheter. Continue treatment for calciphylaxis with sodium thiosulfate. Patient is anemi c. She will receive Epogen with hemodialysis. Will continue to monitor blood counts. Continue to hold Eliquis due to planned procedure for open thrombectomy.
--- NOTE | 2018-05-03 13:35 | Event Note ---
Date of Encounter: 05/03/18 Time of Encounter: 13:34 Patient is to have noninvasive testing of the arterial and venous system of both upper extremities today. Any results of these examinations I will be able to make a comment and recommendation as to how we should proceed. I do not believe the left antecubital vascular access site is salvageable and would not recommend any attempt of thrombectomy of this area. From the history that I can obtain my impression is the patient needs a brand-new access site in either the left or right upper extremity. However there are pulse deficits distally and there is an increased threat of hand ischemia with a successful vascular access. Because any surgical attempt would not occur until sometime next week the patient may resume her anticoagulation from the vascular surgery perspective and this can be discontinued once we have a more definitive timeframe for intervention.
[2018-05-03] MEDS: Sodium Thiosulfate 25 GM in EMPTY BAG 1 EACH IVPB SCH (13:36)
--- NOTE | 2018-05-03 13:36 | Event Note ---
Date of Encounter: 05/03/18 Time of Encounter: 13:[address] Kirk. Patient will undergo vein mapping today. Plan for possible creation of new access after that. However this procedure will not be done until the next week. As such recommended to start back on anticoagulation with Eliquis. We will start this medication again and keep a close eye on patient's hemoglobin levels.
[2018-05-03] MEDS ORDERED: *HR* Amiodarone 200 MG TABLET PO ONE (18:39)
[2018-05-03] MEDS ORDERED: Folic Acid 1 MG TABLET PO ONE (18:39)
[2018-05-03] MEDS ORDERED: Metoprolol XL (24 HR) Succ 25 MG TAB.ER.24H PO ONE (18:39)
[2018-05-03] MEDS ORDERED: predniSONE 10 MG TABLET PO ONE (18:39)
[2018-05-03] MEDS: *HR* OxyCODONE/APAP 5/325 TABLET PO PRN (20:19)
--- NOTE | 2018-05-03 22:49 | Event Note ---
Date of Encounter: 05/03/18 Time of Encounter: 22:46 Pt had a witnessed fall while helped to [facility] by family. She stated she slided to the floor and landed on her butt. She did not hit head or LOC. Her vital signs were normal. we will continue to monitor. No imaging study was indicated at this point.
[2018-05-03] MEDS: Silvasorb 44.4 ML TUBE TP SCH (23:54)
[2018-05-04 05:43] LABS: Basophils % 0.3 %; Eosinophils # 0.2 K/mcL (0.0-0.6); Eosinophils % 2.6 %; Hematocrit 23.9 % (35.3-44.9); Hemoglobin 7.5 g/dL (11.5-15.4); Immature Granulocytes % 0.6 % (0-4); Lymphocytes # 1.5 K/mcL (0.6-4.6); Lymphocytes % 18.9 %; Mean Corpuscular HGB Conc 31.4 g/dL (31.6-35.5); Mean Corpuscular Hemoglobin 29.4 pg (28.0-33.3); Mean Corpuscular Volume 93.7 fL (83.0-100.0); Mean Platelet Volume 10.2 fL (9.4-12.4); Monocytes # 1.1 K/mcL (0.0-1.3); Monocytes % 14.2 %; Platelet Count 201 K/mcL (140-400); Red Blood Count 2.55 M/mcL (3.82-4.97); Red Cell Distribution Width 22.2 % (11.5-14.5); Segmented Neutrophils % 63.4 %
[2018-05-04 06:03] LABS: Calcium 7.5 mg/dL (8.6-10.3); Potassium 4.9 mEq/L (3.5-5.1)
[2018-05-04] MEDS: Budesonide/Formoterol 160/4.5 1 PUFF INH IH SCH ×2 (07:51→20:33)
--- NOTE | 2018-05-04 08:36 | Nephrology Progress Note ---
Addendum entered and electronically signed by Jamir Marvin MD 05/04/18 21:42: I examined this patient and discussed the medical decision-making with JESUS Batres. I agree with the documented findings, disposition and treatment plan as described except to the extent set forth below . Vascular surgery plans to place a new fistula on an outpatient basis. Original Note: Date of Encounter: 05/04/18 Time of Encounter: 08:33 - Assessment and Plan (1) ESRD (end stage renal disease) Current Visit: Yes Status: Chronic ESRD on HD TTS. No HD for today. Avoid nephrotoxins. Renal dose. Renal diet, if able to eat. May go home from a renal standpoint. Patient needs setup for an outpatient Fistula with Dr. Hall next week. (2) Anemia Current Visit: No Status: Chronic Goal HGB is 10-11, and continue BARBARA. Transfusion parameters as per primary. 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 See above. Qualifiers: Encounter type: subsequent encounter Qualified Code(s): T82.868D - Thrombosis due to vascular prosthetic devices, implants and grafts, subsequent encounter (5) Nausea & vomiting Current Visit: No Status: Resolved Per primary. Qualifiers: Vomiting type: unspecified Vomiting Intractability: unspecified Qualified Code(s): R11.2 - Nausea with vomiting, unspecified (6) Hyperkalemia Current Visit: Yes Status: Acute Resolved 4.9 today. Subjective Principal diagnosis: nausea/vomiting Interval history: Pt seen and examined. Admits nausea/vomiting is better. Denies CP/SOB. Objective - Vital Signs Vital signs: Vital Signs Temp Pulse Resp BP Pulse Ox 05/04/18 06:54 98.0 F 82 18 121/49 90 05/04/18 05:10 98.7 F 83 15 133/64 94 05/04/18 00:01 84 18 120/72 05/03/18 23:35 85 108/46 05/03/18 23:25 84 18 119/50 05/03/18 23:10 98.8 F 84 18 136/79 94 05/03/18 20:39 98.6 F 82 15 119/51 92 05/03/18 20:31 16 89 05/03/18 16:30 98.7 F 81 18 126/78 91 Intake and Output 05/03/18 05/04/18 05/04/18 23:59 07:59 15:59 Other: Weight 72.3 kg Blood Glucose* 116 74 Patient Weight 05/04/18 23:59 Weight 72.3 kg - General Appearance General appearance: Present: chronically ill, fatigue EENT: Present: ATNC, hearing intact, vision intact Neck: Present: supple Respiratory: Present: clear Cardiology: Present: no edema, normal S1, normal S2 Dialysis Vascular Access: Venous Catheter (Tunneled Line, DRSG C/D/I) Gastrointestinal: Present: normoactive bowel sounds, no tenderness, no guarding Integumentary: Present: no rash, warm and dry Neurologic: Present: alert and oriented x3 Psychiatric: Present: mood/affect appropriate, cooperative - Lab 05/04/18 05:30 05/04/18 05:30 Most recent lab results Calcium 7.5 mg/dL (8.6-10.3) L 05/04/18 05:30 Phosphorus 4.4 mg/dL (2.7-4.5) 04/21/18 12:53 Magnesium 1.5 mg/dL (1.6-2.6) L 04/21/18 12:53 Consult Discharge Plan - Plan Referrals: Peter Vicente DO [Primary Care Provider] -
[2018-05-04] MEDS: predniSONE 10 MG TABLET PO SCH (10:04)
[2018-05-04] MEDS: Folic Acid 1 MG TABLET PO SCH (10:04)
[2018-05-04] MEDS: Metoprolol XL (24 HR) Succ 25 MG TAB.ER.24H PO SCH (10:04)
[2018-05-04] MEDS: *HR* Amiodarone 200 MG TABLET PO SCH (10:04)
[2018-05-04] MEDS: Artificial Tears SOLN 15 ML BOTTLE BOTH EYES SCH ×4 (10:05→21:01)
--- NOTE | 2018-05-04 15:09 | Internal Med Progress Note ---
Hospitalist Progress Note - Encounter Date of Encounter: 05/04/18 Time of Encounter: 15:09 - Subjective Interval History: Sent is awake and alert. Comfortable. No new complaints at this time. She did have nausea and some cramping abdominal pain earlier today but it has since subsided. - Exam Vitals: Temp Pulse Resp BP Pulse Ox 98.0 F 85 18 117/80 88 05/04/18 11:05 05/04/18 11:05 05/04/18 11:05 05/04/18 11:05 05/04/18 11:05 Exam: General: Patient is alert, no acute distress, oriented x 3 Respiratory: Good respiratory effort. Normal breath sounds. No wheezing or crackles. Cardiovascular: Regular rate and rhythm. s1 and s2 normal No clicks, rubs, gallops, or murmurs. Pedal edema Abdomen: Abdomen is soft, nontender. Bowel sounds are present Musculoskeletal: Spontaneously moving all extremities Skin: warm, dry, intact, multiple calciphylaxis wounds. Neuro: Alert oriented x 3 normal cranial nerves, no focal deficits - Assessment and Plan (1) AV fistula thrombosis Current Visit: Yes Status: Acute Assessment and Plan: Vascular surgery following. Vein mapping done and results are pending. Plan for possibly creating a different fistula if possible. We will follow recommendations. (2) Calciphylaxis Current Visit: Yes Status: Chronic Assessment and Plan: Continue sodium thiosulfate. (3) ESRD (end stage renal disease) Current Visit: Yes Status: Chronic Assessment and Plan: Continue hemodialysis per nephrology recommendations. (4) Afib Current Visit: Yes Status: Chronic Assessment and Plan: Rate controlled. On anticoagulation with Eliquis. Discussed with vascular surgery. They are okay with continuing Eliquis for now till time and date of surgery decided. (5) Nausea & vomiting Current Visit: Yes Status: Acute Assessment and Plan: Episode of nausea and vomiting earlier today. Treated symptomatically. (6) Hypothyroidism Current Visit: Yes Status: Chronic Assessment and Plan: Continue levothyroxine (7) Hypertension Current Visit: Yes Status: Chronic Assessment and Plan: blood pressure remains well controlled. Continue current medications (8) Asthma Current Visit: Yes Status: Chronic Assessment and Plan: Not in acute exacerbation. Use bronchodilators as needed (9) Wounds, multiple Current Visit: Yes Status: Chronic Assessment and Plan: From calciphylaxis. No indication for antibiotics at this time (10) Hypoglycemia Current Visit: Yes Status: Acute Assessment and Plan: Continue to monitor blood sugars. Blood glucose 74 this morning. - Time Spent with Patient Total time spent is greater than 50% in coordination of care (as documented) at patient's floor/unit and/or counseling patient: Internal Medicine: Result - Labs CBC & Chem 7: 05/04/18 05:30 05/04/18 05:30 Labs: Short CBC 05/04/18 Range/Units 05:30 WBC 7.8 (4.3-11.1) K/mcL Hgb 7.5 L (11.5-15.4) g/dL Hct 23.9 L (35.3-44.9) % Plt Count 201 (140-400) K/mcL Neutrophils # 5.0 (1.6-8.9) K/mcL BMP 05/04/18 05:30 Sodium 139 Potassium 4.9 Chloride 101 Carbon Dioxide 34 H BUN 23 H Creatinine 3.79 H Glucose 118 H Calcium 7.5 L - ABG Interpretation ABG results: PT/INR, D-dimer PT 14.6 Seconds (9.4-12.1) H 04/30/18 04:29 Consult Discharge Plan - Plan Referrals: Peter Vicente DO [Primary Care Provider] - (1) AV fistula thrombosis Qualifiers: Encounter type: subsequent encounter Qualified Code(s): T82.868D - Thrombosis due to vascular prosthetic devices, implants and grafts, subsequent encounter (4) Afib Qualifiers: Atrial fibrillation type: paroxysmal Qualified Code(s): I48.0 - Paroxysmal atrial fibrillation (5) Nausea & vomiting Qualifiers: Vomiting type: unspecified Vomiting Intractability: unspecified Qualified Code(s): R11.2 - Nausea with vomiting, unspecified (6) Hypothyroidism Qualifiers: Hypothyroidism type: unspecified Qualified Code(s): E03.9 - Hypothyroidism, unspecified (7) Hypertension Qualifiers: Hypertension type: essential hypertension Qualified Code(s): I10 - Essential (primary) hypertension (8) Asthma Qualifiers: Asthma severity: unspecified severity Asthma persistence: unspecified Asthma complication type: unspecified Qualified Code(s): J45.909 - Unspecified asthma, uncomplicated
[2018-05-04] MEDS: Milk and Molasses Enema 200 ML RC ONE ×2 (16:51→17:01)
--- NOTE | 2018-05-04 19:16 | Vascular/Endovas Progress Note ---
Date of Encounter: 05/04/18 Time of Encounter: 19:13 - Assessment and plan (1) AV fistula thrombosis Current Visit: Yes Status: Acute I reviewed the noninvasive testing of the venous and arterial system of the bilateral upper extremities. He is a compromised candidate due to multiple issues. I have offered her an attempt at creating a left upper arm AV shunt from the left brachial artery to left axillary artery sometime next week. This would be either Monday or . After full discussion of the issue including risks and benefits as well as complications and alternatives the patient wishes to proceed. Therefore we will tentatively try to get her added onto the operating room schedule for some time Monday. From a vascular surgery perspective the anticoagulation may be restarted and then stopped on Monday. Qualifiers: Encounter type: subsequent encounter Qualified Code(s): T82.868D - Thrombosis due to vascular prosthetic devices, implants and grafts, subsequent encounter (2) History of kidney transplant Current Visit: No Status: Chronic Status post cadaveric kidney transplant at [facility] 2007 (3) Kidney failure Current Visit: No Status: Chronic Multiyear history of chronic kidney failure Qualifiers: Renal failure chronicity: chronic Chronic kidney disease stage: on chronic dialysis Qualified Code(s): N18.6 - End stage renal disease; Z99.2 - Dependence on renal dialysis - Subjective Interval history: Patient has no new complaints. I reviewed with the patient the findings of a vein mapping study and arterial study. These reveal diffuse areas of thrombus both in the superficial and deep venous system. The patient does not have veins that would be appropriate for a wrist, forearm, or antecubital access creation. At best the patient could have a tracheal to axillary artery AV shunt. I also explained that there are abnormalities in the arterial exam with noncompressible vessels. I alerted her that any type of vascular access creation places her at an increased risk for arterial ischemia of the hand and fingers. Should this occur the AV access site may need to be ligated in order to preserve adequate perfusion of the hand and fingers. The patient acknowledges these issues and appears to understand what I am reviewing with her. Vital Signs, Last 4 Hours Temp Pulse Resp BP Pulse Ox 05/04/18 15:57 97.6 F 80 18 136/68 94 - Physical Examination General: Present: Conversant, No Apparent Distress HEENT: Present: Atraumatic Skin: Present: No rashes noted on visualized skin Results 05/04/18 05:30 05/04/18 05:30 Lab Results, Last 24 hours 05/04/18 05/04/18 05:30 05:30 WBC 7.8 Hgb 7.5 L Hct 23.9 L Plt Count 201 Sodium 139 Potassium 4.9 Chloride 101 Carbon Dioxide 34 H BUN 23 H Creatinine 3.79 H Glucose 118 H Calcium 7.5 L Consult Discharge Plan - Plan Referrals: Peter Vicente DO [Primary Care Provider] -
[2018-05-04] MEDS: Apixaban 5 MG TABLET PO SCH (21:01)
[2018-05-04] MEDS: *HR* OxyCODONE/APAP 5/325 TABLET PO PRN (21:11)
[2018-05-04] MEDS: Silvasorb 44.4 ML TUBE TP SCH (21:33)
[2018-05-05 05:33] LABS: Hematocrit 24.5 % (35.3-44.9); Hemoglobin 7.8 g/dL (11.5-15.4); Mean Corpuscular HGB Conc 31.8 g/dL (31.6-35.5); Mean Corpuscular Hemoglobin 29.2 pg (28.0-33.3); Mean Corpuscular Volume 91.8 fL (83.0-100.0); Mean Platelet Volume 10.1 fL (9.4-12.4); Platelet Count 247 K/mcL (140-400); Red Blood Count 2.67 M/mcL (3.82-4.97); Red Cell Distribution Width 22.6 % (11.5-14.5)
[2018-05-05 05:52] LABS: Calcium 7.8 mg/dL (8.6-10.3); Potassium 5.8 mEq/L (3.5-5.1)
--- NOTE | 2018-05-05 07:22 | Nephrology Progress Note ---
Addendum entered and electronically signed by Jamir Marvin MD 05/05/18 20:00: I examined this patient and discussed the medical decision-making with JESUS Gomez. I agree with the documented findings, disposition and treatment plan as described except to the extent set forth below. Original Note: Date of Encounter: 05/05/18 Time of Encounter: 07:20 - Assessment and Plan (1) ESRD (end stage renal disease) Current Visit: Yes Status: Chronic Plan for HD today Avoid nephrotoxins if possible Renal diet when diet advanced Patient states she is staying in the hospital until next week for repair of fistula (2) Anemia Current Visit: No Status: Chronic Hgb 7.8, improved slightly from yesterday's 7.5 Goal hgb 10-12 Transfusion parameters as per primary. Qualifiers: Anemia type: due to chronic kidney disease Chronic kidney disease stage: on chronic dialysis Qualified Code(s): N18.6 - End stage renal disease; D63.1 - Anemia in chronic kidney disease; Z99.2 - Dependence on renal dialysis (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 Continue Sodium thiosulfate with HD treatments (4) AV fistula thrombosis Current Visit: Yes Status: Acute Scheduled for AV repair next Monday per vascular surgeon Qualifiers: Encounter type: subsequent encounter Qualified Code(s): T82.868D - Thrombosis due to vascular prosthetic devices, implants and grafts, subsequent encounter (5) Hyperkalemia Current Visit: Yes Status: Acute K+ 5.8 Dialysis today Subjective Principal diagnosis: nausea/vomiting Interval history: Patient seen and examined. States she is feeling well today Objective - Vital Signs Vital signs: Vital Signs Temp Pulse Resp BP Pulse Ox 05/05/18 07:14 97.6 F 80 19 186/103 89 05/05/18 05:05 97.5 F L 78 15 127/91 93 05/04/18 23:46 98.1 F 81 15 118/66 93 05/04/18 20:34 16 95 05/04/18 19:49 98.9 F 78 15 116/51 95 05/04/18 15:57 97.6 F 80 18 136/68 94 05/04/18 11:05 98.0 F 85 18 117/80 88 05/04/18 07:51 14 88 Intake and Output 05/04/18 05/04/1818 15:59 23:59 07:59 Intake Total 480 / 480 Balance 480 / 480 Intake: Oral 480 / 480 Other: Meal Lunch Percent of Meal Consumed 100% Stool Size Moderate Stool Consistency formed Stool Color Brown Blood Tinged # Voids 1 Weight 74.6 kg Blood Glucose* 83 98 102 - General Appearance General appearance: Present: well-developed, well-nourished, obese EENT: Present: ATNC, mucous membranes moist, hearing intact, vision intact Neck: Present: supple Respiratory: Present: clear Cardiology: Present: no edema, normal S1, normal S2 Gastrointestinal: Present: no tenderness, no guarding Integumentary: Present: warm and dry Neurologic: Present: alert and oriented x3 Psychiatric: Present: mood/affect appropriate, cooperative - Lab 05/05/18 05:10 05/05/18 05:10 Most recent lab results Calcium 7.8 mg/dL (8.6-10.3) L 05/05/18 05:10 Phosphorus 4.4 mg/dL (2.7-4.5) 04/21/18 12:53 Magnesium 1.5 mg/dL (1.6-2.6) L 04/21/18 12:53 Consult Discharge Plan - Plan Referrals: Peter Vicente DO [Primary Care Provider] -
[2018-05-05] MEDS: Budesonide/Formoterol 160/4.5 1 PUFF INH IH SCH ×2 (07:31→22:50)
[2018-05-05] MEDS ORDERED: 0.9 % Sodium Chloride 250 ML IVC PRN (07:46)
--- NOTE | 2018-05-05 10:33 | Internal Med Progress Note ---
Hospitalist Progress Note - Encounter Date of Encounter: 05/05/18 Time of Encounter: 10:31 - Subjective Interval History: Patient currently in dialysis. Doing well overall. Denies any nausea or vomiting. No abdominal pain. Scheduled for surgery for creation of an AV fistula next week. No other complaints at this time. - Exam Vitals: Temp Pulse Resp BP Pulse Ox 97.6 F 80 20 186/103 88 05/05/18 07:14 05/05/18 07:14 05/05/18 07:31 05/05/18 07:14 05/05/18 07:31 Exam: General: Patient is alert, no acute distress, oriented x 3 Respiratory: Good respiratory effort. Normal breath sounds. No wheezing or crackles. Cardiovascular: Regular rate and rhythm. s1 and s2 normal No clicks, rubs, gallops, or murmurs. No pedal edema Abdomen: Abdomen is soft, nontender. Bowel sounds are present Musculoskeletal: Spontaneously moving all extremities; multiple healing scab wounds from calciphylaxis Skin: warm, dry, intact. Neuro: Alert oriented x 3 normal cranial nerves, no focal deficits - Assessment and Plan (1) AV fistula thrombosis Current Visit: Yes Status: Acute Assessment and Plan: Vascular surgery following. On Eliquis. Plan for surgery next week. Patient will be in the hospital in the meantime continuing to receive hemodialysis through a tunneled catheter. (2) Calciphylaxis Current Visit: Yes Status: Chronic Assessment and Plan: Continue sodium thiosulfate postdialysis (3) ESRD (end stage renal disease) Current Visit: Yes Status: Chronic Assessment and Plan: Nephrology following. Being dialyzed today. (4) Afib Current Visit: Yes Status: Chronic Assessment and Plan: Rate controlled. Continue Eliquis. Plan to hold Eliquis 24-48 hours prior to surgery. (5) Nausea & vomiting Current Visit: Yes Status: Resolved Assessment and Plan: Improved now. Treat symptomatically. (6) Hypothyroidism Current Visit: Yes Status: Chronic Assessment and Plan: Continue levothyroxine. (7) Hypertension Current Visit: Yes Status: Chronic Assessment and Plan: Blood pressure is well controlled. (8) Asthma Current Visit: Yes Status: Chronic Assessment and Plan: Not in acute exacerbation. Use bronchodilators as needed (9) Wounds, multiple Current Visit: Yes Status: Chronic Assessment and Plan: From calciphylaxis. Continue local wound care (10) Hypoglycemia Current Visit: Yes Status: Acute Assessment and Plan: Continue to monitor blood sugars. (11) Anemia in chronic kidney disease (CKD) Current Visit: Yes Status: Chronic Assessment and Plan: Hemoglobin levels are stable at 7.5. Patient at high risk of bleeding due to Eliquis use. She will receive erythropoietin with hemodialysis per nephrology recommendations. - Time Spent with Patient Total time spent is greater than 50% in coordination of care (as documented) at patient's floor/unit and/or counseling patient: Internal Medicine: Result - Labs CBC & Chem 7: 05/05/18 05:10 05/05/18 05:10 Labs: Short CBC 05/05/18 Range/Units 05:10 WBC 9.9 (4.3-11.1) K/mcL Hgb 7.8 L (11.5-15.4) g/dL Hct 24.5 L (35.3-44.9) % Plt Count 247 (140-400) K/mcL BMP 05/05/18 05:10 Sodium 136 Potassium 5.8 H Chloride 99 Carbon Dioxide 30 H BUN 35 H Creatinine 5.17 H Glucose 94 Calcium 7.8 L - ABG Interpretation ABG results: PT/INR, D-dimer PT 14.6 Seconds (9.4-12.1) H 04/30/18 04:29 Consult Discharge Plan - Plan Referrals: Peter Vicente DO [Primary Care Provider] - (1) AV fistula thrombosis Qualifiers: Encounter type: subsequent encounter Qualified Code(s): T82.868D - Thrombosis due to vascular prosthetic devices, implants and grafts, subsequent encounter (4) Afib Qualifiers: Atrial fibrillation type: paroxysmal Qualified Code(s): I48.0 - Paroxysmal atrial fibrillation (5) Nausea & vomiting Qualifiers: Vomiting type: unspecified Vomiting Intractability: unspecified Qualified Code(s): R11.2 - Nausea with vomiting, unspecified (6) Hypothyroidism Qualifiers: Hypothyroidism type: unspecified Qualified Code(s): E03.9 - Hypothyroidism, unspecified (7) Hypertension Qualifiers: Hypertension type: essential hypertension Qualified Code(s): I10 - Essential (primary) hypertension (8) Asthma Qualifiers: Asthma severity: unspecified severity Asthma persistence: unspecified Asthma complication type: unspecified Qualified Code(s): J45.909 - Unspecified asthma, uncomplicated (11) Anemia in chronic kidney disease (CKD) Qualifiers: Chronic kidney disease stage: on chronic dialysis Qualified Code(s): N18.6 - End stage renal disease; D63.1 - Anemia in chronic kidney disease; Z99.2 - Dependence on renal dialysis
[2018-05-05] MEDS: Artificial Tears SOLN 15 ML BOTTLE BOTH EYES SCH ×3 (13:00→16:58)
[2018-05-05] MEDS: Apixaban 5 MG TABLET PO SCH ×2 (13:03→21:01)
[2018-05-05] MEDS: Metoprolol XL (24 HR) Succ 25 MG TAB.ER.24H PO SCH (13:03)
[2018-05-05] MEDS: predniSONE 10 MG TABLET PO SCH (13:03)
[2018-05-05] MEDS: Folic Acid 1 MG TABLET PO SCH (13:04)
[2018-05-05] MEDS: *HR* Amiodarone 200 MG TABLET PO SCH (13:04)
[2018-05-05] MEDS: Sodium Thiosulfate 25 GM in EMPTY BAG 1 EACH IVPB SCH (16:57)
[2018-05-05] MEDS: *HR* OxyCODONE/APAP 5/325 TABLET PO PRN (17:30)
[2018-05-05] MEDS: Silvasorb 44.4 ML TUBE TP SCH (21:01)
[2018-05-06] MEDS: Artificial Tears SOLN 15 ML BOTTLE BOTH EYES SCH ×5 (06:35→23:52)
--- NOTE | 2018-05-06 06:50 | Nephrology Progress Note ---
Addendum entered and electronically signed by Jamir Marvin MD 05/06/18 21:36: I examined this patient and discussed the medical decision-making with JESUS Gomez. I agree with the documented findings, disposition and treatment plan as described except to the extent set forth below. Original Note: Date of Encounter: 05/06/18 Time of Encounter: 06:48 - Assessment and Plan (1) ESRD (end stage renal disease) Current Visit: Yes Status: Chronic Plan for HD on Monday Avoid nephrotoxins if possible Renal diet when diet advanced Patient is scheduled for repair of fistula next week, poss on Monday (2) Anemia Current Visit: No Status: Chronic Hgb 7.8 from yesterday; no labs yet today Goal hgb 10-12 Transfusion parameters as per primary. Qualifiers: Anemia type: due to chronic kidney disease Chronic kidney disease stage: on chronic dialysis Qualified Code(s): N18.6 - End stage renal disease; D63.1 - Anemia in chronic kidney disease; Z99.2 - Dependence on renal dialysis (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 Continue Sodium thiosulfate with HD treatments (4) AV fistula thrombosis Current Visit: Yes Status: Acute Scheduled for AV repair next Monday per vascular surgeon Qualifiers: Encounter type: subsequent encounter Qualified Code(s): T82.868D - Thrombosis due to vascular prosthetic devices, implants and grafts, subsequent encounter (5) Hyperkalemia Current Visit: Yes Status: Acute K+ 5.8 yesterday but had dialysis; no new labs yet today Subjective Principal diagnosis: nausea/vomiting Interval history: Patient seen and examined; feeling well today Objective - Vital Signs Vital signs: Vital Signs Temp Pulse Resp BP Pulse Ox 05/06/18 04:12 99.1 F 78 15 153/85 92 05/05/18 23:31 99.4 F 83 16 160/85 90 05/05/18 22:50 15 92 05/05/18 20:05 99.5 F 82 15 136/82 91 05/05/18 15:57 99.4 F 82 18 125/50 96 05/05/18 12:15 96.7 F L 18 196/77 05/05/18 12:00 185/82 05/05/18 11:45 170/92 05/05/18 11:30 164/84 05/05/18 11:15 171/90 05/05/18 11:00 166/90 05/05/18 10:45 162/87 05/05/18 10:30 177/90 05/05/18 10:15 172/72 05/05/18 10:00 175/89 05/05/18 09:45 173/91 05/05/18 09:30 144/105 05/05/18 09:15 151/98 05/05/18 09:00 96.7 F L 18 168/91 05/05/18 07:31 20 88 05/05/18 07:14 97.6 F 80 19 186/103 89 Intake and Output 05/05/18 05/05/18 05/06/18 15:59 23:59 07:59 Intake Total 960 / 960 0 / 0 Output Total 3600 / 3600 0 / 0 Balance -2640 / -2640 0 / 0 Intake: Oral 360 / 360 0 / 0 Intake, Rinseback and Flushes 600 / 600 Output: Urine 0 / 0 0 / 0 Total Dialysis (HD) Output 3600 / 3600 Other: Meal Breakfast Percent of Meal Consumed 25% Weight 74.6 kg 68.5 kg Blood Glucose* 158 132 Hemodialysis Net Fluid Removed 3000 (mL) - General Appearance General appearance: Present: well-developed, well-nourished, obese EENT: Present: ATNC, mucous membranes moist, hearing intact, vision intact Neck: Present: supple Respiratory: Present: clear Cardiology: Present: no edema, normal S1, normal S2 Dialysis Vascular Access: Venous Catheter Gastrointestinal: Present: no tenderness, no guarding Integumentary: Present: warm and dry Neurologic: Present: alert and oriented x3 Psychiatric: Present: mood/affect appropriate, cooperative - Lab 05/05/18 05:10 05/05/18 05:10 Most recent lab results Calcium 7.8 mg/dL (8.6-10.3) L 05/05/18 05:10 Phosphorus 4.4 mg/dL (2.7-4.5) 04/21/18 12:53 Magnesium 1.5 mg/dL (1.6-2.6) L 04/21/18 12:53 Consult Discharge Plan - Plan Referrals: Peter Vicente DO [Primary Care Provider] -
[2018-05-06] MEDS: Budesonide/Formoterol 160/4.5 1 PUFF INH IH SCH ×2 (07:42→21:57)
[2018-05-06] MEDS: *HR* Amiodarone 200 MG TABLET PO SCH (09:33)
[2018-05-06] MEDS: predniSONE 10 MG TABLET PO SCH (09:34)
[2018-05-06] MEDS: Metoprolol XL (24 HR) Succ 25 MG TAB.ER.24H PO SCH (09:34)
[2018-05-06] MEDS: Apixaban 5 MG TABLET PO SCH (09:34)
[2018-05-06] MEDS: Folic Acid 1 MG TABLET PO SCH (09:34)
[2018-05-06 09:54] LABS: Hematocrit 23.5 % (35.3-44.9); Hemoglobin 7.5 g/dL (11.5-15.4); Mean Corpuscular HGB Conc 31.9 g/dL (31.6-35.5); Mean Corpuscular Hemoglobin 29.4 pg (28.0-33.3); Mean Corpuscular Volume 92.2 fL (83.0-100.0); Mean Platelet Volume 9.7 fL (9.4-12.4); Platelet Count 208 K/mcL (140-400); Red Blood Count 2.55 M/mcL (3.82-4.97); Red Cell Distribution Width 22.8 % (11.5-14.5)
[2018-05-06 10:04] LABS: Calcium 7.2 mg/dL (8.6-10.3); Potassium 5.3 mEq/L (3.5-5.1)
--- NOTE | 2018-05-06 11:05 | Vascular/Endovas Progress Note ---
Date of Encounter: 05/06/18 Time of Encounter: 10:40 - Assessment and plan (1) ESRD (end stage renal disease) Current Visit: Yes Status: Chronic Dr. Kirk planning for revision of AV access this week; Tentatively on Monday. Discussed in detail and all questions answered - Subjective Interval history: Pt doing well and without complaints today; Awaiting revision of AV access early this next week Vital Signs, Last 4 Hours Temp Pulse Resp BP Pulse Ox 05/06/18 08:15 98.0 F 83 17 117/40 92 05/06/18 07:42 15 90 - Physical Examination General: Present: No Apparent Distress Neck: Absent: JVD, Lymphadenopathy, Left Carotid bruit, Right Carotid bruit Cardiac: Present: Reg Rate and Rhythm, Normal S1 and S2, No Murmur Lungs: Present: Normal Breath Sounds ( ), No Wheeze, Rales, Rhonchi Neuro: Present: Alert and responsive Vascular: Present: Normal capillary refill, Pulse, normal Skin: Present: No rashes noted on visualized skin Results 05/06/18 09:35 05/06/18 09:35 Lab Results, Last 24 hours 05/06/18 05/06/18 09:35 09:35 WBC 7.9 Hgb 7.5 L Hct 23.5 L Plt Count 208 Sodium 137 Potassium 5.3 H Chloride 98 Carbon Dioxide 33 H BUN 22 H Creatinine 3.71 H Glucose 78 Calcium 7.2 L Consult Discharge Plan - Plan Referrals: Peter Vicente DO [Primary Care Provider] -
--- NOTE | 2018-05-06 13:20 | Internal Med Progress Note ---
Hospitalist Progress Note - Encounter Date of Encounter: 05/06/18 Time of Encounter: 13:12 - Subjective Interval History: Patient is awake and alert. No new complaints. No nausea/ vomiting. No abd pain. No fevers or chills. - Exam Vitals: Temp Pulse Resp BP Pulse Ox 98.7 F 77 17 120/52 91 05/06/18 11:29 05/06/18 11:29 05/06/18 11:29 05/06/18 11:29 05/06/18 11:29 Exam: General: Patient is alert, no acute distress, oriented x 3 Respiratory: Good respiratory effort. Normal breath sounds. No wheezing or crackles. Cardiovascular: Regular rate and rhythm. s1 and s2 normal No clicks, rubs, gallops, or murmurs. No pedal edema Abdomen: Abdomen is soft, nontender. Bowel sounds are present Musculoskeletal: Spontaneously moving all extremities; multiple healing scab wounds from calciphylaxis on extremities - Assessment and Plan (1) AV fistula thrombosis Current Visit: Yes Status: Acute Assessment and Plan: Vascular surgery planning on revision of AV access possibly on Monday. Continue Eliquis but hold from tomorrow. Monitor vital signs. Monitor blood counts closely. (2) Calciphylaxis Current Visit: Yes Status: Chronic Assessment and Plan: Continue sodium thiosulfate. (3) ESRD (end stage renal disease) Current Visit: Yes Status: Chronic Assessment and Plan: On hemodialysis. Nephrology managing. (4) Afib Current Visit: Yes Status: Chronic Assessment and Plan: Rate controlled. On anticoagulation with Eliquis (5) Nausea & vomiting Current Visit: Yes Status: Resolved (6) Hypothyroidism Current Visit: Yes Status: Chronic Assessment and Plan: Continue levothyroxin (7) Hypertension Current Visit: Yes Status: Chronic Assessment and Plan: Blood pressure is better controlled today. Continue current medications (8) Asthma Current Visit: Yes Status: Chronic Assessment and Plan: Not in acute exacerbation. Continue bronchodilators as needed. (9) Wounds, multiple Current Visit: Yes Status: Chronic Assessment and Plan: From calciphylaxis. Local wound care (10) Hypoglycemia Current Visit: Yes Status: Resolved (11) Anemia in chronic kidney disease (CKD) Current Visit: Yes Status: Chronic Assessment and Plan: Stable. Hemoglobin 7.5 today. - Time Spent with Patient Total time spent is greater than 50% in coordination of care (as documented) at patient's floor/unit and/or counseling patient: Internal Medicine: Result - Labs CBC & Chem 7: 05/06/18 09:35 05/06/18 09:35 Labs: Short CBC 05/06/18 Range/Units 09:35 WBC 7.9 (4.3-11.1) K/mcL Hgb 7.5 L (11.5-15.4) g/dL Hct 23.5 L (35.3-44.9) % Plt Count 208 (140-400) K/mcL BMP 05/06/18 09:35 Sodium 137 Potassium 5.3 H Chloride 98 Carbon Dioxide 33 H BUN 22 H Creatinine 3.71 H Glucose 78 Calcium 7.2 L - ABG Interpretation ABG results: PT/INR, D-dimer PT 14.6 Seconds (9.4-12.1) H 04/30/18 04:29 Consult Discharge Plan - Plan Referrals: Peter Vicente DO [Primary Care Provider] - (1) AV fistula thrombosis Qualifiers: Encounter type: subsequent encounter Qualified Code(s): T82.868D - Thrombosis due to vascular prosthetic devices, implants and grafts, subsequent encounter (4) Afib Qualifiers: Atrial fibrillation type: paroxysmal Qualified Code(s): I48.0 - Paroxysmal atrial fibrillation (5) Nausea & vomiting Qualifiers: Vomiting type: unspecified Vomiting Intractability: unspecified Qualified Code(s): R11.2 - Nausea with vomiting, unspecified (6) Hypothyroidism Qualifiers: Hypothyroidism type: unspecified Qualified Code(s): E03.9 - Hypothyroidism, unspecified (7) Hypertension Qualifiers: Hypertension type: essential hypertension Qualified Code(s): I10 - Essential (primary) hypertension (8) Asthma Qualifiers: Asthma severity: unspecified severity Asthma persistence: unspecified Asthma complication type: unspecified Qualified Code(s): J45.909 - Unspecified asthma, uncomplicated (11) Anemia in chronic kidney disease (CKD) Qualifiers: Chronic kidney disease stage: on chronic dialysis Qualified Code(s): N18.6 - End stage renal disease; D63.1 - Anemia in chronic kidney disease; Z99.2 - Dependence on renal dialysis
[2018-05-06] MEDS ORDERED: *HR* LORazepam 2 MG/ML VIAL ONE (21:04)
[2018-05-06] MEDS: Silvasorb 44.4 ML TUBE TP SCH (23:52)
[2018-05-07 05:31] LABS: Hematocrit 24.6 % (35.3-44.9); Hemoglobin 7.4 g/dL (11.5-15.4); Mean Corpuscular HGB Conc 30.1 g/dL (31.6-35.5); Mean Corpuscular Hemoglobin 28.9 pg (28.0-33.3); Mean Corpuscular Volume 96.1 fL (83.0-100.0); Mean Platelet Volume 10.2 fL (9.4-12.4); Platelet Count 228 K/mcL (140-400); Red Blood Count 2.56 M/mcL (3.82-4.97); Red Cell Distribution Width 23.1 % (11.5-14.5)
[2018-05-07 05:52] LABS: Calcium 7.2 mg/dL (8.6-10.3); Potassium 5.6 mEq/L (3.5-5.1)
[2018-05-07] MEDS ORDERED: 0.9 % Sodium Chloride 250 ML IVC PRN (07:05)
[2018-05-07] MEDS: Folic Acid 1 MG TABLET PO SCH (07:48)
[2018-05-07] MEDS: Artificial Tears SOLN 15 ML BOTTLE BOTH EYES SCH ×4 (07:49→21:23)
[2018-05-07] MEDS: *HR* Amiodarone 200 MG TABLET PO SCH (07:49)
[2018-05-07] MEDS: Metoprolol XL (24 HR) Succ 25 MG TAB.ER.24H PO SCH (07:49)
[2018-05-07] MEDS ORDERED: 0.9 % Sodium Chloride 2,000 ML ONE (08:16)
[2018-05-07] MEDS: Budesonide/Formoterol 160/4.5 1 PUFF INH IH SCH ×2 (10:30→20:18)
--- NOTE | 2018-05-07 10:52 | Nephrology Progress Note ---
Date of Encounter: 05/07/18 Time of Encounter: 10:25 - Assessment and Plan (1) ESRD (end stage renal disease) Current Visit: Yes Status: Chronic Patient has known end-stage renal disease on dialysis Monday, , Monday. Her AV fistula is thrombosed. She is currently receiving HD through a left-sided permacath -Patient was seen and examined today during HD. She reported feeling fatigued. Plan: -Dr. Hall is planning for revision of AV fistula tomorrow. -will plan to reevaluate her tomorrow to determine if she should have dialysis Monday -continue phosphorus binder sensipar (2) AV fistula thrombosis Current Visit: Yes Status: Acute Qualifiers: Encounter type: subsequent encounter Qualified Code(s): T82.868D - Thrombosis due to vascular prosthetic devices, implants and grafts, subsequent encounter (3) Anemia in chronic kidney disease (CKD) Current Visit: Yes Status: Chronic Anemia of chronic disease secondary to CKD. She currently receives Aranesp weekly -hemoglobin 7.4 (baseline9-8), hematocrit 24.6 -MCV 96.1 -no obvious active bleeding Plan: -continue Aranesp weekly. 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 This is secondary to ESRD. She had previously been started on Coumadin which had worsened the calciphylaxis and had been discontinued. Plan: -continue sodium thiosulfate treatment at the last hour of each dialysis for treatment of calciphylaxis -do not give Coumadin as this is been shown to worsen calciphylaxis (5) Hyperkalemia Current Visit: Yes Status: Acute Hyperkalemia in setting of ESRD on dialysis. potassium of 5.6 -will continue to removed during dialysis -monitor with BMP Subjective Principal diagnosis: nausea/vomiting Interval history: 43-year-old female with past medical history of ESRD receiving dialysis Monday, , Monday. Found to have an AV fistula thrombosis. She is to undergo repair tomorrow by vascular surgery. Patient seen and examined at bedside. She is alert and oriented times 3. She reported that she feels tired today. She denies nausea, vomiting, abdominal pain, fever, chills. She has no other complaints. Objective - Vital Signs Vital signs: Vital Signs Temp Pulse Resp BP Pulse Ox 05/07/18 10:05 170/88 05/07/18 09:50 170/51 05/07/18 09:35 148/62 05/07/18 09:20 152/78 05/07/18 09:05 163/77 05/07/18 08:50 183/101 05/07/18 08:35 152/75 05/07/18 08:20 164/78 05/07/18 08:05 141/41 05/07/18 07:50 97.7 F 16 183/98 05/07/18 05:55 94/59 05/07/18 04:18 97.7 F 74 16 99/52 90 05/07/18 01:26 14 100 05/07/18 00:40 97.9 F 75 16 126/82 92 05/06/18 20:12 98.7 F 77 16 130/69 90 05/06/18 16:58 97.9 F 81 16 109/56 90 05/06/18 11:29 98.7 F 77 17 120/52 91 Intake and Output 05/06/18 05/07/18 05/07/18 23:59 07:59 15:59 Intake Total 600 / 600 Balance 600 / 600 Intake: Oral 0 / 0 Intake, Rinseback and Flushes 600 / 600 Other: Weight 69 kg Blood Glucose* 142 99 Hemodialysis Net Fluid Removed 0 2719 (mL) Patient Weight 05/07/18 23:59 Weight 69 kg - General Appearance General appearance: Present: well-developed, well-nourished, appears started age, fatigue EENT: Present: mucous membranes moist. Absent: scleral icterus Neck: Present: no JVD, supple Respiratory: Present: clear. Absent: wheezing, rales, rhonchi Cardiology: Present: no murmurs, no rub, no gallops, edema (Mild bilateral), regular rate, regular rhythm, normal S1, normal S2 Dialysis Vascular Access: Arteriovenous Fistula (left arm) thrill: No bruit: No Gastrointestinal: Present: normoactive bowel sounds, no tenderness, no guarding, no organomegaly, no masses Integumentary: Present: warm and dry Additional Comments: Calciphylaxis lesions on abdomen and thighs Neurologic: Present: no focal deficit, alert and oriented x3 Musculoskeletal: Present: no deformities, no erythema, no cyanosis, no clubbing Psychiatric: Present: mood/affect appropriate, cooperative - Lab 05/07/18 04:54 05/07/18 04:54 Most recent lab results Calcium 7.2 mg/dL (8.6-10.3) L 05/07/18 04:54 Phosphorus 4.4 mg/dL (2.7-4.5) 04/21/18 12:53 Magnesium 1.5 mg/dL (1.6-2.6) L 04/21/18 12:53 Consult Discharge Plan - Plan Referrals: Peter Vicente DO [Primary Care Provider] -
--- NOTE | 2018-05-07 14:20 | Internal Med Progress Note ---
Hospitalist Progress Note - Encounter Date of Encounter: 05/07/18 Time of Encounter: 14:17 - Subjective Interval History: Patient was seen during dialysis earlier today. Denies any new complaints. No nausea or vomiting. No abdominal pain. Tolerating dialysis well. Patient with history of ESRD on hemodialysis, atrial fibrillation, hypertension, hyperlipidemia, hypothyroidism and asthma was hospitalized here with complaints of nausea and vomiting. Patient has had issues with her AV fistula which was thrombosed. Patient is receiving hemodialysis through a tunneled catheter. She has had multiple readmissions due to either noncompliance with dialysis or due to infections CVC. She also has calciphylaxis and multiple skin wounds. Infectious disease evaluated patient and recommended only local wound care. No further indications for antibiotics. Interventional radiology and vascular surgery have been consulted regarding her thrombosed AV fistula. Vascular surgery recommends a revision of this fistula. Plan is to proceed with this procedure tomorrow. Eliquis has been placed on hold. She also has anemia and her hemoglobin levels have been staying between 7 and 8. Stool negative for occult blood. She does receive erythropoietin with hemodialysis. Plan to discharge home after AV fistula has been device. - Exam Vitals: Temp Pulse Resp BP Pulse Ox 97.5 F L 76 18 136/83 93 05/07/18 11:16 05/07/18 11:16 05/07/18 11:16 05/07/18 11:16 05/07/18 11:16 Exam: General: Patient is alert, no acute distress, oriented x 3 Respiratory: Good respiratory effort. Normal breath sounds. No wheezing or crackles. Cardiovascular: Regular rate and rhythm. s1 and s2 normal No clicks, rubs, gallops, or murmurs. No pedal edema Abdomen: Abdomen is soft, nontender. Bowel sounds are present Musculoskeletal: Spontaneously moving all extremities Skin: warm, dry, intact, multiple calciphylaxis wounds. Stable. No signs of infection. Neuro: Alert oriented x 3 normal cranial nerves, no focal deficits - Assessment and Plan (1) AV fistula thrombosis Current Visit: Yes Status: Acute Assessment and Plan: Plan for placement of a revision of AV fistula tomorrow. Keep nothing by mouth after midnight. Eliquis on hold. (2) Calciphylaxis Current Visit: Yes Status: Chronic Assessment and Plan: Receiving sodium thiosulfate postdialysis. (3) ESRD (end stage renal disease) Current Visit: Yes Status: Chronic Assessment and Plan: On hemodialysis. Will continue per nephrology recommendations. (4) Afib Current Visit: Yes Status: Chronic Assessment and Plan: Rate controlled. On anticoagulation with Eliquis (5) Nausea & vomiting Current Visit: Yes Status: Resolved (6) Hypothyroidism Current Visit: Yes Status: Chronic Assessment and Plan: Continue levothyroxin (7) Hypertension Current Visit: Yes Status: Chronic Assessment and Plan: Blood pressure was elevated during dialysis but has since improved. (8) Asthma Current Visit: Yes Status: Chronic Assessment and Plan: Continue bronchodilators as needed. (9) Wounds, multiple Current Visit: Yes Status: Chronic Assessment and Plan: Local wound care. Wounds are related to calciphylaxis. No signs of infection. (10) Hypoglycemia Current Visit: Yes Status: Resolved (11) Anemia in chronic kidney disease (CKD) Current Visit: Yes Status: Chronic Assessment and Plan: Hemoglobin levels remain stable. - Time Spent with Patient Total time spent is greater than 50% in coordination of care (as documented) at patient's floor/unit and/or counseling patient: Internal Medicine: Result - Labs CBC & Chem 7: 05/07/18 04:54 05/07/18 04:54 Labs: Short CBC 05/07/18 Range/Units 04:54 WBC 7.0 (4.3-11.1) K/mcL Hgb 7.4 L (11.5-15.4) g/dL Hct 24.6 L (35.3-44.9) % Plt Count 228 (140-400) K/mcL BMP 05/07/18 04:54 Sodium 136 Potassium 5.6 H Chloride 97 L Carbon Dioxide 30 H BUN 31 H Creatinine 4.47 H Glucose 103 Calcium 7.2 L - ABG Interpretation ABG results: PT/INR, D-dimer PT 14.6 Seconds (9.4-12.1) H 04/30/18 04:29 Consult Discharge Plan - Plan Referrals: Peter Vicente DO [Primary Care Provider] - (1) AV fistula thrombosis Qualifiers: Encounter type: subsequent encounter Qualified Code(s): T82.868D - Thrombosis due to vascular prosthetic devices, implants and grafts, subsequent encounter (4) Afib Qualifiers: Atrial fibrillation type: paroxysmal Qualified Code(s): I48.0 - Paroxysmal atrial fibrillation (5) Nausea & vomiting Qualifiers: Vomiting type: unspecified Vomiting Intractability: unspecified Qualified Code(s): R11.2 - Nausea with vomiting, unspecified (6) Hypothyroidism Qualifiers: Hypothyroidism type: unspecified Qualified Code(s): E03.9 - Hypothyroidism, unspecified (7) Hypertension Qualifiers: Hypertension type: essential hypertension Qualified Code(s): I10 - Essential (primary) hypertension (8) Asthma Qualifiers: Asthma severity: unspecified severity Asthma persistence: unspecified Asthma complication type: unspecified Qualified Code(s): J45.909 - Unspecified asthma, uncomplicated (11) Anemia in chronic kidney disease (CKD) Qualifiers: Chronic kidney disease stage: on chronic dialysis Qualified Code(s): N18.6 - End stage renal disease; D63.1 - Anemia in chronic kidney disease; Z99.2 - Dependence on renal dialysis
--- NOTE | 2018-05-07 18:28 | Vascular/[facility] Progress Note ---
Date of Encounter: 05/07/18 Time of Encounter: 10:45 - Assessment and plan (1) AV fistula thrombosis Current Visit: Yes Status: Acute Plan for left upper arm AV shunt creation tomorrow afternoon. Qualifiers: Encounter type: subsequent encounter Qualified Code(s): T82.868D - Thrombosis due to vascular prosthetic devices, implants and grafts, subsequent encounter (2) History of kidney transplant Current Visit: No Status: Chronic Status post cadaveric kidney transplant at [facility] 2007 (3) Kidney failure Current Visit: No Status: Chronic Multiyear history of chronic kidney failure Qualifiers: Renal failure chronicity: chronic Chronic kidney disease stage: on chronic dialysis Qualified Code(s): N18.6 - End stage renal disease; Z99.2 - Dependence on renal dialysis - Subjective Interval history: Patient has no new complaints. She had dialysis today. Vital Signs, Last 4 Hours Temp Pulse Resp BP Pulse Ox 05/07/18 16:06 98.2 F 78 17 120/76 97 - Physical Examination General: Present: Conversant, No Apparent Distress HEENT: Present: Atraumatic Neck: Absent: JVD Skin: Present: No rashes noted on visualized skin Results 05/07/18 04:54 05/07/18 04:54 Lab Results, Last 24 hours 05/07/18 05/07/18 04:54 04:54 WBC 7.0 Hgb 7.4 L Hct 24.6 L Plt Count 228 Sodium 136 Potassium 5.6 H Chloride 97 L Carbon Dioxide 30 H BUN 31 H Creatinine 4.47 H Glucose 103 Calcium 7.2 L Consult Discharge Plan - Plan Referrals: Peter Vicente DO [Primary Care Provider] -
[2018-05-08] MEDS: Silvasorb 44.4 ML TUBE TP SCH (00:11)
--- NOTE | 2018-05-08 03:17 | Anesthesia Evaluation PreOp ---
<Sindi Mcclelland - Last Filed: 05/08/18 03:15> Date of Encounter: 05/08/18 Time of Encounter: 03:15 - Past History Planned Operation: LUE AV fistula Cardiac History: HTN, Hyperlipidemia, Arrhythmia (paroxysmal afib) Pulmonary History: Asthma [employer] History: Denies Any Significant HX Other Medical History: Renal (ESRD on HD T/TH/Sat, s/p renal transplant), Diabetes Type II, Thyroid (hypo), Other (anemia) Anesthesia History: No Prior Anesthetic Complications, Past Anesthesia (renal transplant, EGD) Alcohol Use: none Drug use: none Medications and Allergies Albuterol Sulfate [Albuterol Inhaler] 2 puff IH Q4H PRN 09/09/16 [History] Amiodarone [Cordarone] 200 mg PO DAILY 09/09/16 [History] Atorvastatin [Lipitor] 40 mg PO HS 09/09/16 [History] Budesonide/Formoterol 160/4.5 [Symbicort 160/4.5] 2 puff IH BIDR 09/09/16 [History] Levothyroxine Sodium [Synthroid] 200 mcg PO QAM 09/09/16 [History] Omeprazole [PriLOSEC] 20 mg PO DAILY 09/09/16 [History] hydrALAZINE [HydrALAZINE] 50 mg PO BID 09/09/16 [History] Montelukast [Singulair] 10 mg PO DAILY 02/16/17 [History] Folic Acid 1 mg PO DAILY 01/07/18 [History] Metoprolol Succinate [Toprol Xl] 25 mg PO DAILY 01/07/18 [History] Apixaban [Eliquis] 5 mg PO BID #60 tablet 01/18/18 [Rx] Collagenase Oint [Santyl] 1 appl TP HS tube 02/16/18 [Rx] Darbepoetin [Aranesp] 60 mcg SQ QWEEK syringe 02/16/18 [Rx] Cinacalcet [Sensipar] 30 mg PO DAILY 30 Days #30 tablet 03/22/18 [Rx] predniSONE [PredniSONE] 10 mg PO DAILY tablet 03/22/18 [Rx] Ondansetron ODT [Zofran ODT] 4 mg SL Q8HR PRN #12 tab.rapdis 04/05/18 [Rx] Acetaminophen [Tylenol] 1,000 mg PO Q6HR PRN 04/21/18 [History] cloNIDine HCl [CloNIDine HCl] 0.1 mg PO TID 04/21/18 [History] Allergy/AdvReac Type Severity Reaction Status Date / Time Warfarin [From Coumadin] Allergy Anaphylaxis Verified 04/21/18 11:18 heparin AdvReac Severe Unresponsiv Verified 04/24/18 11:44 e - Meds/Allergy Pre-op Review Medications Reviewed: Yes Allergies Reviewed: Yes Beta Blockers on Current Med List: No Anesthesia Results - Labs 05/07/18 04:54 05/07/18 04:54 - Imaging EKG: report reviewed (Sinus rhythm Possible anteroseptal infarct, age undeterm ined Nonspecific ST-T changes Electronically Signed On 04-24-2018 10:23:11 EDT by Agapito Cruz) Additional studies: ECHO 04/08/18 EV/EV echocardiogram Impressions: LVEF 55%. Indeterminate diastolic function. Normal right ventricular structure and function. Mild mitral regurgitation. Mild tricuspid regurgitation. Focal calcification of the right cusp of the aortic valve. No pulmonary hypertension. Valvular vegetations were not visualized. Anesthesia Exam Vital Signs/O2 Sat, Most Current Temp Pulse Resp BP Pulse Ox 99 F 82 15 114/49 97 05/07/18 23:58 05/07/18 23:58 05/07/18 23:58 05/07/18 23:58 05/07/18 23:58 Weight: 69kg Anesthesia Assess/Plan ASA Score: 4 Modified Sheela Scale for Level of Consciousness: Cooperative, oriented, and tranquil Anesthetic Plan: General Monitoring Plan: Standard Monitors Recovery Plan: PACU <Maikol Tomas - Last Filed: 05/08/18 18:59> - Past History Anesthesia History: Past Anesthesia Anesthesia Results - Labs 05/08/18 05:53 05/08/18 05:53 Anesthesia Exam Vital Signs/O2 Sat, Most Current Temp Pulse Resp BP Pulse Ox 97.8 F 76 16 128/81 95 05/08/18 15:21 05/08/18 15:21 05/08/18 15:21 05/08/18 15:21 05/08/18 15:21 NPO (# of Hours): > 8 hrs Pain Scale: 0 Pain Scale Used: Numeric (1 - 10) - HEENT Pupil (Motor): Pupils equal, EOMI Mallampati: III Teeth: Normal Oral Opening: Greater than 3 - [employer] LOC: Oriented [employer] Motor: Normal RUE, Normal LUE, Normal RLE, Normal LLE, Normal Face [employer] Sensory: Normal: RUE, LUE, RLE, LLE, Face - Cardiac Rhythm: Irregular Murmur: None JVD: No Carotid Bruit: No - Pulmonary Breath Sounds: bilateral Clear Respiratory Effort: Symmetrical
[2018-05-08 06:21] LABS: Calcium 7.3 mg/dL (8.6-10.3); Hematocrit 24.6 % (35.3-44.9); Hemoglobin 7.8 g/dL (11.5-15.4); Mean Corpuscular HGB Conc 31.7 g/dL (31.6-35.5); Mean Corpuscular Hemoglobin 29.7 pg (28.0-33.3); Mean Corpuscular Volume 93.5 fL (83.0-100.0); Platelet Count 212 K/mcL (140-400); Potassium 5.4 mEq/L (3.5-5.1); Red Blood Count 2.63 M/mcL (3.82-4.97); Red Cell Distribution Width 22.3 % (11.5-14.5)
--- NOTE | 2018-05-08 07:02 | Nephrology Progress Note ---
Addendum entered and electronically signed by Wyatt Stewart DO 05/14/18 12:29: I have personally performed a face to face evaluation on this patient. I have reviewed and agree with the care plan. History and Exam by me shows: ESRD on HD with Calciphylaxis and the following: Original Note: Date of Encounter: 05/08/18 Time of Encounter: 06:59 - Assessment and Plan (1) ESRD (end stage renal disease) Current Visit: Yes Status: Chronic Patient had HD yesterday (regular days are TTS); scheduled for fistulogram today Patient states they are keeping her one more night to make sure access is working properly Avoid nephrotoxins if possible Renal diet when diet advanced Return to [facility] for outpatient HD once discharged. (2) Anemia Current Visit: No Status: Chronic Hgb 7.8 Continue Aranesp Goal hgb 10-12 Transfusion parameters as per primary. Qualifiers: Anemia type: due to chronic kidney disease Chronic kidney disease stage: on chronic dialysis Qualified Code(s): N18.6 - End stage renal disease; D63.1 - A nemia in chronic kidney disease; Z99.2 - Dependence on renal dialysis (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 Continue Sodium thiosulfate with HD treatments (4) AV fistula thrombosis Current Visit: Yes Status: Acute Scheduled for AV repair today per vascular surgeon Qualifiers: Encounter type: subsequent encounter Qualified Code(s): T82.868D - Thrombosis due to vascular prosthetic devices, implants and grafts, subsequent encounter (5) Hyperkalemia Current Visit: Yes Status: Acute K+ 5.4, was 5.6 yesterday before dialysis Renal diet when diet advanced Subjective Principal diagnosis: nausea/vomiting Interval history: Patient seen and examined; scheduled for access repair today Objective - Vital Signs Vital signs: Vital Signs Temp Pulse Resp BP Pulse Ox 05/08/18 06:41 97.9 F 82 20 103/77 99 05/08/18 04:23 98.9 F 80 19 130/88 93 05/07/18 23:58 99 F 82 15 114/49 97 05/07/18 21:02 99.2 F 83 15 106/53 94 05/07/18 16:06 98.2 F 78 17 120/76 97 05/07/18 11:16 97.5 F L 76 18 136/83 93 05/07/18 11:00 97.1 F L 15 199/97 05/07/18 10:50 131/86 05/07/18 10:35 177/63 05/07/18 10:20 167/88 05/07/18 10:05 170/88 05/07/18 09:50 170/51 05/07/18 09:35 148/62 05/07/18 09:20 152/78 05/07/18 09:05 163/77 05/07/18 08:50 183/101 05/07/18 08:35 152/75 05/07/18 08:20 164/78 05/07/18 08:05 141/41 05/07/18 07:50 97.7 F 16 183/98 Intake and Output 05/07/18 05/07/18 05/08/18 15:59 23:59 07:59 Output Total 3600 / 3600 Balance -3600 / -3600 Output: Urine 0 / 0 Total Dialysis (HD) Output 3600 / 3600 Other: Meal Dinner Percent of Meal Consumed 0% Blood Glucose* 69 84 70 Hemodialysis Net Fluid Removed 3000 (mL) - General Appearance General appearance: Present: well-developed, well-nourished, obese EENT: Present: ATNC, mucous membranes moist, hearing intact, vision intact Neck: Present: supple Respiratory: Present: clear Cardiology: Present: no edema, normal S1, normal S2 Dialysis Vascular Access: Venous Catheter Gastrointestinal: Present: no tenderness, no guarding Integumentary: Present: warm and dry Neurologic: Present: alert and oriented x3 Psychiatric: Present: mood/affect appropriate, cooperative - Lab 05/08/18 05:53 05/08/18 05:53 Most recent lab results Calcium 7.3 mg/dL (8.6-10.3) L 05/08/18 05:53 Phosphorus 4.4 mg/dL (2.7-4.5) 04/21/18 12:53 Magnesium 1.5 mg/dL (1.6-2.6) L 04/21/18 12:53 Consult Discharge Plan - Plan Referrals: Peter Vicente DO [Primary Care Provider] -
[2018-05-08] MEDS: Budesonide/Formoterol 160/4.5 1 PUFF INH IH SCH ×2 (08:45→22:50)
[2018-05-08] MEDS ORDERED: Dextrose Gel 15 GM/37.5 ML TUBE PO ONE (09:24)
[2018-05-08] MEDS: Folic Acid 1 MG TABLET PO SCH (09:26)
[2018-05-08] MEDS: *HR* Amiodarone 200 MG TABLET PO SCH (09:26)
[2018-05-08] MEDS: Dextrose Gel 15 GM/37.5 ML TUBE PO PRN (09:26)
[2018-05-08] MEDS: Metoprolol XL (24 HR) Succ 25 MG TAB.ER.24H PO SCH (09:27)
[2018-05-08] MEDS: Artificial Tears SOLN 15 ML BOTTLE BOTH EYES SCH ×3 (09:27→16:16)
[2018-05-08] MEDS ORDERED: *HR* Propofol 200 MG/20 ML VIAL IVP ONE (15:14)
[2018-05-08] MEDS ORDERED: Lidocaine -MPF 2% 2 ML VIAL ONE (15:14)
[2018-05-08] MEDS ORDERED: *HR* FentaNYL (PF) 100 MCG/2 ML VIAL ONE (15:14)
[2018-05-08] MEDS ORDERED: *HR* Midazolam HCl 2 MG/2 ML VIAL ONE (15:14)
[2018-05-08] MEDS: Sodium Thiosulfate 25 GM in EMPTY BAG 1 EACH IVPB SCH (16:21)
[2018-05-08] MEDS ORDERED: ceFAZolin 1,000 MG, Sodium Chloride IRRigation 1,000 ML IR ONE ×2 (17:30→22:53)
[2018-05-08] MEDS ORDERED: Lidocaine 1% 20 ML MDV ONE (17:57)
[2018-05-08] MEDS ORDERED: Heparin 1,000 UNITS/500 mL 500 ML ONE (17:57)
[2018-05-08] MEDS ORDERED: ROPIVACAINE HCL/PF 0.5% 30 ML VIAL ONE (18:06)
--- NOTE | 2018-05-08 19:11 | Internal Med Progress Note ---
Hospitalist Progress Note - Encounter Date of Encounter: 05/08/18 Time of Encounter: 11:00 - Subjective Interval History: Patient with a AV fistula that was scheduled for today and will stay overnight to make sure operational. - Exam Vitals: Temp Pulse Resp BP Pulse Ox 97.8 F 76 16 128/81 95 05/08/18 15:21 05/08/18 15:21 05/08/18 15:21 05/08/18 15:21 05/08/18 15:21 Exam: General: Patient is alert, no acute distress, oriented x 3 Respiratory: Good respiratory effort. Normal breath sounds. No wheezing or crackles. Cardiovascular: Regular rate and rhythm. s1 and s2 normal No clicks, rubs, gallops, or murmurs. No pedal edema Abdomen: Abdomen is soft, nontender. Bowel sounds are present Musculoskeletal: Spontaneously moving all extremities Skin: warm, dry, intact, multiple calciphylaxis wounds. Stable. No signs of infection. Neuro: Alert oriented x 3 normal cranial nerves, no focal deficits - Assessment and Plan (1) Calciphylaxis Current Visit: Yes Status: Chronic Assessment and Plan: Receiving sodium thiosulfate postdialysis. (2) ESRD (end stage renal disease) Current Visit: Yes Status: Chronic Assessment and Plan: On hemodialysis. Will continue per nephrology recommendations. (3) Anemia in chronic kidney disease (CKD) Current Visit: Yes Status: Chronic Assessment and Plan: Hemoglobin levels remain stable. (4) Afib Current Visit: Yes Status: Chronic Assessment and Plan: Rate controlled. On anticoagulation with Eliquis (5) AV fistula thrombosis Current Visit: Yes Status: Acute Assessment and Plan: Plan for placement of a revision of AV fistula today. We will keep overnight to make sure functional (6) Hypothyroidism Current Visit: Yes Status: Chronic (7) Hypertension Current Visit: Yes Status: Chronic Assessment and Plan: Continue beta katelin (8) Asthma Current Visit: Yes Status: Chronic Assessment and Plan: Continue bronchodilators as needed. (9) Wounds, multiple Current Visit: Yes Status: Chronic Assessment and Plan: Local wound care. Wounds are related to calciphylaxis. No signs of infection. (10) Hypoglycemia Current Visit: Yes Status: Resolved Assessment and Plan: Continue to monitor blood sugars. - Time Spent with Patient Total time spent is greater than 50% in coordination of care (as documented) at patient's floor/unit and/or counseling patient: Internal Medicine: Result - Labs CBC & Chem 7: 05/08/18 05:53 05/08/18 05:53 Labs: Short CBC 05/08/18 Range/Units 05:53 WBC 8.1 (4.3-11.1) K/mcL Hgb 7.8 L (11.5-15.4) g/dL Hct 24.6 L (35.3-44.9) % Plt Count 212 (140-400) K/mcL BMP 05/08/18 05:53 Sodium 136 Potassium 5.4 H Chloride 97 L Carbon Dioxide 33 H BUN 18 Creatinine 3.28 H Glucose 72 Calcium 7.3 L - ABG Interpretation ABG results: PT/INR, D-dimer PT 14.6 Seconds (9.4-12.1) H 04/30/18 04:29 Consult Discharge Plan - Plan Referrals: Peter Vicente DO [Primary Care Provider] - (3) Anemia in chronic kidney disease (CKD) Qualifiers: Chronic kidney disease stage: on chronic dialysis Qualified Code(s): N18.6 - End stage renal disease; D63.1 - Anemia in chronic kidney disease; Z99.2 - Dependence on renal dialysis (4) Afib Qualifiers: Atrial fibrillation type: paroxysmal Qualified Code(s): I48.0 - Paroxysmal atrial fibrillation (5) AV fistula thrombosis Qualifiers: Encounter type: subsequent encounter Qualified Code(s): T82.868D - Thrombosis due to vascular prosthetic devices, implants and grafts, subsequent encounter (6) Hypothyroidism Qualifiers: Hypothyroidism type: unspecified Qualified Code(s): E03.9 - Hypothyroidism, unspecified (7) Hypertension Qualifiers: Hypertension type: essential hypertension Qualified Code(s): I10 - Essential (primary) hypertension (8) Asthma Qualifiers: Asthma severity: unspecified severity Asthma persistence: unspecified Asthma complication type: unspecified Qualified Code(s): J45.909 - Unspecified asthma, uncomplicated
[2018-05-08] MEDS ORDERED: Ondansetron 4 MG/2 ML VIAL ONE (20:42)
--- NOTE | 2018-05-08 21:51 | Operative Note ---
Date of procedure: 05/08/18 Pre-op diagnosis: ESRD Post-op diagnosis: same Procedure: left upper arm A-V Shunt with 6 mm Advanta VXT vascular graft resection of portion of old left antecubital graft and stent Complications: 0 Anesthesia: STEVE Surgeon: Cody Kirk Was there an podiatry assistant present: No Estimated blood loss (cc): 50 Specimen: old left antecubital shunt and stent Condition: stable Disposition: PACU Procedure in Detail: History Malathi Alexis is a 43-year-old white female who was seen in consultation last week because of recurrent failure of left antecubital vascular access site. She is presently being dialyzed through a permanent hemodialysis catheter. Patient is status post a cadaveric renal transplant in 2007. This went on to fail. She went back on dialysis and had some type of vascular access created at the left antecubital area. Apparently this was revised multiple times both surgically and endovascularly. Eventually the access thrombosed and there was no feasible way to reconstruct this site. The patient now, so in an attempt to establish a new site for dialysis. The patient has calciphylaxis with multiple wounds. She had been using peritoneal dialysis in the past and overall wishes to return to that in the future when her wounds have healed. Procedure After informed consent was obtained the patient was taken to the operating room. General anesthesia was established. The left upper extremity was sterilely prepped and draped. A timeout protocol was observed. An ultrasound evaluation was made of the upper extremity venous system of the left upper extremity. The axillary vein was soft and easily compressible. No thrombus was identified in this vessel. Therefore it was judged appropriate to proceed with the planned access. An incision was made in the left axilla to dissect down to and identifying the axillary vein. This vein was soft. It was noninflamed. It was normal in size. A second incision was then made at the distal aspect of the left upper arm. This was carried through the previous surgical incision so that dissection could be carried down onto the old access device. Upon dissection this appeared to be an arterial venous shunt that was a brachial to cephalic shunt. There is also an intraluminal stent. Dissection was made of the brachial artery. Brachial artery was soft. An excellent pulse. As the patient has apparent allergies to both Coumadin and heparin per the chart no anticoagulation was given to the patient for these manipulations. The graft was clamped at the proximal anastomosis. A section of the old left upper arm AV shunt was resected. This measured approximately 5 cm. in length. Chronic and completely occlusive material was found within the lumen of the shunt shunt. This was transected and sent for specimen. The distal aspect near the brachial arterial anastomosis was then debrided of residual clot. The stent could be identified here and was not removed but was left so that the anastomosis could be made. A 6 mm diameter Advanta VXT vascular graft was selected. This was then passed through a tunnel in an arcing manner from the brachial artery up to the axillary vein. The graft was placed through the tunnel. The proximal anastomosis was then performed in an end-to-end fashion with 6-0 Prolene suture. The graft was unclamped. A venotomy was made on the axillary vein. An endograft to side of vein anastomosis was performed with 6-0 Prolene. After appropriate backbleeding and flushing the AV shunt was opened. Excellent flow was observed intraoperatively. This was confirmed by Doppler evaluation. The radial and ulnar arteries at the wrist were also evaluated both with the graft being patent and with the graft being clamped. There is no significant change in the flow. The 2 wounds were then irrigated. Local anesthetic was then injected and each wound and then closed in layers using absorbable suture. Dry sterile dressing was applied. There were no intraoperative complications. Patient was extubated in the operating room and taken to the recovery room in stable condition.
--- NOTE | 2018-05-08 22:39 | Anesthesia Evaluation Post Op ---
Date of Encounter: 05/08/18 Time of Encounter: 22:39 - Vital Signs Vital Signs: Vital Signs/O2 Sat, Most Current Temp Pulse Resp BP Pulse Ox 97.6 F 66 16 141/81 99 05/08/18 22:30 05/08/18 22:30 05/08/18 22:30 05/08/18 22:30 05/08/18 22:30 - Lungs Lungs: Clear Ascult./Percussion - Airway Airway: Non-obstructed - Cardiovascular Regular Rate - Mental Status Mental Status: Alert & Oriented, Answers Appropriately - Pain Pain Scale: 6 Pain Scale used: Numeric (1 - 10) - Nausea Vomiting Nausea Vomiting: Not Present - Hydration Hydration: Tolerates oral liquids - Discharge PostOp Status: Transfer Patient to floor
[2018-05-08] MEDS ORDERED: Albuterol 2.5 MG/3 ML NEBULIZER IH PRN (22:53)
[2018-05-08] MEDS ORDERED: *HR* Dextrose 50 % in Water (Syg) 50 ML SYRINGE IVP PRN (22:53)
[2018-05-08] MEDS ORDERED: Dextrose Gel 15 GM/37.5 ML TUBE PO PRN ×2 (22:53)
[2018-05-08] MEDS ORDERED: 0.9 % Sodium Chloride 1,000 ML PRIME SCH (22:53)
[2018-05-08] MEDS ORDERED: Ondansetron ODT 4 MG TAB.RAPDIS SL PRN (22:53)
[2018-05-08] MEDS ORDERED: D5% in Water 1,000 ML IVC PRN (22:53)
[2018-05-08] MEDS ORDERED: *HR* Promethazine 25 MG/ML VIAL IVP PRN (22:53)
[2018-05-09] MEDS: Silvasorb 44.4 ML TUBE TP SCH (00:33)
[2018-05-09] MEDS: Artificial Tears SOLN 15 ML BOTTLE BOTH EYES SCH ×4 (00:33→17:10)
[2018-05-09 04:58] LABS: Calcium 6.8 mg/dL (8.6-10.3); Potassium 6.2 mEq/L (3.5-5.1)
[2018-05-09] MEDS ORDERED: 0.9 % Sodium Chloride 250 ML IVC PRN (07:24)
[2018-05-09] MEDS ORDERED: 0.9 % Sodium Chloride 1,000 ML ONE (07:48)
[2018-05-09] MEDS ORDERED: Acetaminophen 325 MG TABLET PO PRN (08:01)
[2018-05-09] MEDS ORDERED: Metoprolol XL (24 HR) Succ 25 MG TAB.ER.24H PO SCH (09:00)
[2018-05-09] MEDS ORDERED: *HR* Amiodarone 200 MG TABLET PO SCH (09:00)
[2018-05-09] MEDS ORDERED: Folic Acid 1 MG TABLET PO SCH (09:00)
[2018-05-09] MEDS ORDERED: Budesonide/Formoterol 160/4.5 1 PUFF INH IH SCH (10:00)
--- NOTE | 2018-05-09 10:02 | Nephrology Progress Note ---
Date of Encounter: 05/09/18 Time of Encounter: 09:15 - Assessment and Plan (1) ESRD (end stage renal disease) Current Visit: Yes Status: Chronic Patient has known end-stage renal disease on dialysis Monday, , Monday. Etiology likely hypertension. She had new insertion of an AV fistula yesterday by vascular surgery as hers became thrombosed. Hyperkalemic with potassium 6.2 Plan: -from a nephrology standpoint which may be discharged today after HD so to get the patient back on her schedule for HD (2) AV fistula thrombosis Current Visit: Yes Status: Acute AV fistula repair by vascular surgery yesterday. Patient tolerated procedure well. She is residual left arm soreness at insertion site. Qualifiers: Encounter type: subsequent encounter Qualified Code(s): T82.868D - Thrombosis due to vascular prosthetic devices, implants and grafts, subsequent encounter (3) Anemia in chronic kidney disease (CKD) Current Visit: Yes Status: Chronic Anemia of chronic disease secondary to CKD. She currently receives Aranesp weekly -hemoglobin 7.4 (baseline9-8), hematocrit 24.6 -MCV 96.1 -no obvious active bleeding Plan: -continue Aranesp weekly. 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 This is secondary to ESRD. She had previously been started on Coumadin which had worsened the calciphylaxis and had been discontinued. Plan: -continue sodium thiosulfate treatment at the last hour of each dialysis for treatment of calciphylaxis -do not give Coumadin as this is been shown to worsen calciphylaxis (5) Hyperkalemia Current Visit: Yes Status: Acute Hyperkalemia in setting of ESRD on dialysis. potassium of 6.2 -will continue to remove during dialysis -monitor with BMP Subjective Principal diagnosis: nausea/vomiting Interval history: 43-year-old female with past medical history of ESRD receiving dialysis Monday, , Monday. Found to have an AV fistula thrombosis which was repaired yesterday by vascular surgery. Patient seen and examined at bedside. She is alert and oriented times 3. She reports only soreness to the new AV fistula site. She denies nausea, vomiting, abdominal pain, fever, chills. She has no other complaints. Objective - Vital Signs Vital signs: Vital Signs Temp Pulse Resp BP Pulse Ox 05/09/18 07:39 98.2 F 71 17 100/59 99 05/09/18 04:28 98.1 F 69 18 136/78 97 05/09/18 00:25 98.4 F 70 18 142/83 97 05/08/18 22:58 138/85 05/08/18 22:56 97.4 F L 73 18 85/61 96 05/08/18 22:51 21 97 05/08/18 22:30 97.6 F 66 16 141/81 99 05/08/18 22:20 97.6 F 65 16 141/50 100 05/08/18 22:10 97.8 F 66 16 139/90 100 05/08/18 22:00 97.4 F L 70 16 152/58 100 05/08/18 15:21 97.8 F 76 16 128/81 95 05/08/18 11:13 97.9 F 80 16 122/94 100 Intake and Output 05/08/18 05/09/18 05/09/18 23:59 07:59 15:59 Intake Total 0 / 0 Output Total 50 / 50 Balance -50 / -50 Intake: Oral 0 / 0 Output: Estimated Blood Loss 50 / 50 Other: Stool Size Moderate Stool Consistency soft Stool Characteristics Normal for Patient Stool Color Brown # Bowel Movements 1 Weight 69.2 kg Blood Glucose* 59 184 Patient Weight 05/09/18 23:59 Weight 69.2 kg - General Appearance General appearance: Present: well-developed, well-nourished, appears started age EENT: Present: mucous membranes moist Cardiology: Present: no murmurs, no rub, edema (Mild bilateral), regular rate, regular rhythm Dialysis Vascular Access: Arteriovenous Fistula (Left upper arm) thrill: Yes Gastrointestinal: Present: normoactive bowel sounds, no tenderness, no guarding, no masses Integumentary: Present: no rash, warm and dry, ulcer (Abdomen, thigh) Neurologic: Present: no asterixis, alert and oriented x3, CN 3-12 intact Musculoskeletal: Present: no erythema, no cyanosis Psychiatric: Present: mood/affect appropriate, cooperative - Lab 05/08/18 05:53 05/09/18 04:00 Most recent lab results Calcium 6.8 mg/dL (8.6-10.3) L 05/09/18 04:00 Phosphorus 4.4 mg/dL (2.7-4.5) 04/21/18 12:53 Magnesium 1.5 mg/dL (1.6-2.6) L 04/21/18 12:53 Consult Discharge Plan - Plan Additional Instructions: Remove dressing from surgical incisions tomorrow. Keep surgical incisions dry for a total of 5 days following surgery. No lifting greater than 10 pounds with left upper extremity. Referrals: Peter Vicente DO [Primary Care Provider] - Cody Kirk MD [Partnered Physician] - (Follow-up in vascular surgery clinic with Dr. Kirk in 3 weeks)
--- NOTE | 2018-05-09 12:29 | Vascular/[facility] Progress Note ---
Date of Encounter: 05/09/18 Time of Encounter: 08:15 - Assessment and plan (1) AV fistula thrombosis Current Visit: Yes Status: Acute Patent left upper arm AV shunt. Patient is postoperative day #1. Patient may be discharged per medical service. Patient is to have dressing removed tomorrow from the 2 surgical incisions. Patient is to follow-up with me in 3 weeks. Qualifiers: Encounter type: subsequent encounter Qualified Code(s): T82.868D - Thrombosis due to vascular prosthetic devices, implants and grafts, subsequent encounter (2) History of kidney transplant Current Visit: No Status: Chronic Status post cadaveric kidney transplant at [facility] 2007 (3) Kidney failure Current Visit: No Status: Chronic Multiyear history of chronic kidney failure Qualifiers: Renal failure chronicity: chronic Chronic kidney disease stage: on chronic dialysis Qualified Code(s): N18.6 - End stage renal disease; Z99.2 - Dependence on renal dialysis - Subjective Interval history: Patient complains of discomfort along surgical site of left upper arm. Patient is postoperative day #1 following left upper arm AV shunt creation. Vital Signs, Last 4 Hours Temp Resp BP 05/09/18 11:50 171/73 05/09/18 11:35 153/88 05/09/18 11:20 153/88 05/09/18 11:05 166/74 05/09/18 10:50 161/82 05/09/18 10:35 165/88 05/09/18 10:20 132/30 05/09/18 10:05 116/62 05/09/18 09:50 105/83 05/09/18 09:35 98.3 F 16 126/73 - Physical Examination General: Present: Conversant, No Apparent Distress Vascular: Present: Color/Temperature (Left hand and fingers are warm and pink.), Surgical incisions (Dressings are clean and dry on the left upper extremity.), Other (Patient has loud bruit over AV shunt in left upper arm.). Absent: Cyanosis Results 05/08/18 05:53 05/09/18 04:00 Lab Results, Last 24 hours 05/09/18 04:00 Sodium 134 L Potassium 6.2 H Chloride 96 L Carbon Dioxide 29 BUN 31 H Creatinine 4.32 H Glucose 158 H Calcium 6.8 L Consult Discharge Plan - Plan Additional Instructions: Remove dressing from surgical incisions tomorrow. Keep surgical incisions dry for a total of 5 days following surgery. No lifting greater than 10 pounds with left upper extremity. Referrals: Peter Vicente DO [Primary Care Provider] - Cody Kirk MD [Partnered Physician] - (Follow-up in vascular surgery clinic with Dr. Kirk in 3 weeks)
--- NOTE | 2018-05-09 15:47 | Discharge Summary ---
- NOTES TO OUTPATIENT PROVIDER Notes to Outpatient Provider: Patient to follow-up with nephrology for scheduled hemodialysis Orders not resulted at time of discharge: Pending orders 05/08/18 20:31 Surgical Pathology [PTH] Routine 05/10/18 04:00 Chem 7 [Basic Metabolic Panel] AM 0400 05/11/18 04:00 Chem 7 [Basic Metabolic Panel] AM 0400 Date of Encounter: 05/09/18 Time of Encounter: 11:00 - Discharge Diagnosis (1) Calciphylaxis Priority: Secondary Status: Chronic (2) ESRD (end stage renal disease) Priority: Primary Status: Chronic (3) Anemia in chronic kidney disease (CKD) Priority: Secondary Status: Chronic Qualifiers: Chronic kidney disease stage: on chronic dialysis Qualified Code(s): N18.6 - End stage renal disease; D63.1 - Anemia in chronic kidney disease; Z99.2 - Dependence on renal dialysis (4) Afib Priority: Secondary Status: Chronic Qualifiers: Atrial fibrillation type: paroxysmal Qualified Code(s): I48.0 - Paroxysmal atrial fibrillation (5) AV fistula thrombosis Priority: Primary Status: Acute Qualifiers: Encounter type: subsequent encounter Qualified Code(s): T82.868D - Thrombosis due to vascular prosthetic devices, implants and grafts, subsequent encounter (6) Hypothyroidism Priority: Secondary Status: Chronic Qualifiers: Hypothyroidism type: unspecified Qualified Code(s): E03.9 - Hypothyroidism, unspecified (7) Hypertension Priority: Secondary Status: Chronic Qualifiers: Hypertension type: essential hypertension Qualified Code(s): I10 - Essential (primary) hypertension (8) Asthma Priority: Secondary Status: Chronic Qualifiers: Asthma severity: unspecified severity Asthma persistence: unspecified Asthma complication type: unspecified Qualified Code(s): J45.909 - Unspecified asthma, uncomplicated (9) Wounds, multiple Priority: Secondary Status: Chronic (10) Hypoglycemia Priority: Secondary Status: Resolved Hospital course: Patient is a 43-year-old female with past medical history significant for ESRD on HD TTS, atrial fibrillation, hypertension, hyperlipidemia, hypothyroidism, asthma and calciphylaxis who presented to the ER due to nausea and vomiting. He stated that her nausea/vomiting started after her dialysis session. She came to the hospital because she felt very sick. In the ER, CT abdomen showed thickening of stomach, wall thickening of colon any areas of abdominal wall ulceration without evidence of abscess. CT chest showed small bilateral effusion, atelectasis. CT left lower extremity showed diffuse subcutaneous edema. Labs remarkable for Leukocytosis, hypoglycemia, elevated BUN/Disbursing Agent. Blood cultures were drawn and patient started on Vancomycin and Cefepime. During patients hospital stay, vascular surgery was consulted for AV shunt creation of AV fistula thrombosis. Patient continued to receive hemodialysis per nephrology. She will be discharged to continue hemodialysis with nephrology as an outpatient. - Time Spent with Patient Total time spent providing and/or coordinating discharge services: Less than 30 minutes - Discharge Medications Prescriptions: Apixaban [Eliquis] 5 mg PO BID #60 tablet Home Medications: Albuterol Sulfate [Albuterol Inhaler] 2 puff IH Q4H PRN 09/09/16 [History] Amiodarone [Cordarone] 200 mg PO DAILY 09/09/16 [History] Atorvastatin [Lipitor] 40 mg PO HS 09/09/16 [History] Budesonide/Formoterol 160/4.5 [Symbicort 160/4.5] 2 puff IH BIDR 09/09/16 [History] Levothyroxine Sodium [Synthroid] 200 mcg PO QAM 09/09/16 [History] Omeprazole [PriLOSEC] 20 mg PO DAILY 09/09/16 [History] hydrALAZINE [HydrALAZINE] 50 mg PO BID 09/09/16 [History] Montelukast [Singulair] 10 mg PO DAILY 02/16/17 [History] Folic Acid 1 mg PO DAILY 01/07/18 [History] Metoprolol Succinate [Toprol Xl] 25 mg PO DAILY 01/07/18 [History] Collagenase Oint [Santyl] 1 appl TP HS tube 02/16/18 [Rx] Darbepoetin [Aranesp] 60 mcg SQ QWEEK syringe 02/16/18 [Rx] Cinacalcet [Sensipar] 30 mg PO DAILY 30 Days #30 tablet 03/22/18 [Rx] predniSONE [PredniSONE] 10 mg PO DAILY tablet 03/22/18 [Rx] Ondansetron ODT [Zofran ODT] 4 mg SL Q8HR PRN #12 tab.rapdis 04/05/18 [Rx] Acetaminophen [Tylenol] 1,000 mg PO Q6HR PRN 04/21/18 [History] cloNIDine HCl [CloNIDine HCl] 0.1 mg PO TID 04/21/18 [History] Apixaban [Eliquis] 5 mg PO BID #60 tablet 05/09/18 [Rx] Allergies/Adverse Reactions: Allergy/AdvReac Type Severity Reaction Status Date / Time Warfarin [From Coumadin] Allergy Anaphylaxis Verified 04/21/18 11:18 heparin AdvReac Severe Unresponsiv Verified 04/24/18 11:44 e Date of admission: 04/21/18 15:42 Primary care physician: Peter Vicente DO Consults: 04/21/18 15:30 Consult to Dialysis [CONS] ONCE 04/21/18 15:44 Consult to Infectious Diseases [CONS] Routine Consulting Provider: Infectious Disease Loli Reason for Consult: Recent CLABSI, wound infection. Call Completed: Yes Consult to Nephrology [CONS] Routine Consulting Provider: Kidney Loli/TAYLOR/THUY/EDEL Reason for Consult: ESRD on HD Call Completed: Yes Consult to Wound Care [CONS] Routine Reason for Consult: infected abdominal wounds. Call Completed: Yes 04/21/18 16:02 Consult to Surgery [CONS] Routine Consulting Provider: Surgery [facility] Reason for Consult: infected wound. Call Completed: Yes 04/24/18 06:45 Consult to Dialysis [CONS] ONCE 04/24/18 17:01 Consult to Gastroenterology [CONS] Routine Consulting Provider: Gastroenterology [place] Reason for Consult: Present as nausea/vomiting. CT abd shows new stomach/colon/small bowel thickness. Call Completed: No 04/26/18 07:30 Consult to Dialysis [CONS] ONCE 04/28/18 09:00 Consult to Dialysis [CONS] ONCE 04/30/18 05:00 Consult to Interventional Radiology [CONS] Routine Consulting Provider: Radiology Interventional [facility] Reason for Consult: Please assess for LUE AVF thrombectomy and/or fistulagram. No thrill or bruit on exam. Due to prior bacteremia/recurrent hospitalizations, she has not been able to address this till now (last BCX was finalized as no growth). Thank you Call Completed: No 04/30/18 11:30 Consult to Dialysis [CONS] ONCE 05/01/18 08:45 Consult to Dialysis [CONS] ONCE 05/01/18 15:50 Consult to Vascular Surgery [CONS] Routine Consulting Provider: Cody Kirk Reason for Consult: possible thrombectomy Call Completed: Yes 05/02/18 09:30 Consult to Dialysis [CONS] ONCE 05/05/18 08:00 Consult to Dialysis [CONS] ONCE 05/07/18 07:15 Consult to Dialysis [CONS] ONCE 05/09/18 07:30 Consult to Dialysis [CONS] ONCE 05/09/18 10:32 Consult to Occupational Therapy [CONS] Routine Comment: Evaluate, develop and implement POC Reason for Consult: d/c needs, fall this hospitalization , weakness Does patient have active BEDREST order?: No Is patient medically & hemodynamically stable?: Yes Patient assessed for mobility or mobilized this visit?: No Consult to Physical Therapy [CONS] Routine Comment: Evaluate, develop and implement POC Reason for Consult: fall since admission , refusing to get up/weakness. possible DC needs Does patient have active BEDREST order?: No Is patient medically & hemodynamically stable?: Yes Patient assessed for mobility or mobilized this visit?: No - Constitutional Vitals: Temp Pulse Resp BP Pulse Ox 98.6 F 71 18 140/84 98 05/09/18 14:10 05/09/18 07:39 05/09/18 14:10 05/09/18 14:10 05/09/18 08:05 General appearance: Present: A&O X 3, obese Exam: Gen.: Nonacute distress, alert and oriented 3 Skin: Normal color - Patient Status Disposition: Home, Self-Care Condition: Good - Discharge Instructions Follow Up With: Peter Vciente DO [Primary Care Provider] - 05/14/18 3:00 pm Cody Kirk MD [Partnered Physician] - 05/30/18 11:30 am () Additional Instructions: Remove dressing from surgical incisions tomorrow. Keep surgical incisions dry for a total of 5 days following surgery. No lifting greater than 10 pounds with left upper extremity.
[2018-05-09] MEDS ORDERED: Sodium Thiosulfate 25 GM in EMPTY BAG 1 EACH IVPB ONE (16:00)
[2018-05-09 16:02] VITALS: BP 119/71
--- NOTE | 2018-05-09 16:10 | Physician Discharge Referral ---
Home Health/Hosp Referral Info Transfer to: Home Health - Diagnosis (1) Calciphylaxis Status: Chronic (2) ESRD (end stage renal disease) Status: Chronic (3) Anemia in chronic kidney disease (CKD) Status: Chronic (4) Afib Status: Chronic (5) AV fistula thrombosis Status: Acute (6) Hypothyroidism Status: Chronic (7) Hypertension Status: Chronic (8) Asthma Status: Chronic (9) Wounds, multiple Status: Chronic (10) Hypoglycemia Status: Resolved - Respiratory Orders Smoking Cessation: Smoking cessation has been advised. For more information, call the [place] Tobacco Quit Line at 9-520-QCFW-NOW. - Services Needed Following services are medically necessary services: Nursing (Wound care nurse) - Transfer Medications Prescriptions: Apixaban [Eliquis] 5 mg PO BID #60 tablet Home Medications: Albuterol Sulfate [Albuterol Inhaler] 2 puff IH Q4H PRN 09/09/16 [History] Amiodarone [Cordarone] 200 mg PO DAILY 09/09/16 [History] Atorvastatin [Lipitor] 40 mg PO HS 09/09/16 [History] Budesonide/Formoterol 160/4.5 [Symbicort 160/4.5] 2 puff IH BIDR 09/09/16 [History] Levothyroxine Sodium [Synthroid] 200 mcg PO QAM 09/09/16 [History] Omeprazole [PriLOSEC] 20 mg PO DAILY 09/09/16 [History] hydrALAZINE [HydrALAZINE] 50 mg PO BID 09/09/16 [History] Montelukast [Singulair] 10 mg PO DAILY 02/16/17 [History] Folic Acid 1 mg PO DAILY 01/07/18 [History] Metoprolol Succinate [Toprol Xl] 25 mg PO DAILY 01/07/18 [History] Collagenase Oint [Santyl] 1 appl TP HS tube 02/16/18 [Rx] Darbepoetin [Aranesp] 60 mcg SQ QWEEK syringe 02/16/18 [Rx] Cinacalcet [Sensipar] 30 mg PO DAILY 30 Days #30 tablet 03/22/18 [Rx] predniSONE [PredniSONE] 10 mg PO DAILY tablet 03/22/18 [Rx] Ondansetron ODT [Zofran ODT] 4 mg SL Q8HR PRN #12 tab.rapdis 09/20/18 [Rx] Acetaminophen [Tylenol] 1,000 mg PO Q6HR PRN 04/21/18 [History] cloNIDine HCl [CloNIDine HCl] 0.1 mg PO TID 04/21/18 [History] Apixaban [Eliquis] 5 mg PO BID #60 tablet 05/09/18 [Rx] Allergies/Adverse Reactions: Allergy/AdvReac Type Severity Reaction Status Date / Time Warfarin [From Coumadin] Allergy Anaphylaxis Verified 04/21/18 11:18 heparin AdvReac Severe Unresponsiv Verified 04/24/18 11:44 e Certification: Further, I certify that my clinical findings support that this patient is homebound (i.e. absences from home require considerable and taxing effort and are for medical reasons or islam services or infrequently or short duration when for other reasons) because: Homebound Reason: Patient requires assistance of a person or device to safely leave home Attestation: My signature below is to certify that this patient is under my care and that I, or nurse practitioner, or a physician's janitorial assistant working with me, has a [id number] encounter with this patient.
[2018-05-09] MEDS ORDERED: Silvasorb 44.4 ML TUBE TP SCH (21:00)
[2018-05-10] MEDS ORDERED: Sodium Thiosulfate 25 GM in EMPTY BAG 1 EACH IVPB SCH (16:00)
== END 2018-05-09 18:40 | disposition home or self-care (01) | DRG 951 ==
LOC: 2ANU 11:01 → EMEROOARM 11:01 → SUATTDRO 15:42 → 2ANU 15:48
PROVIDERS: ADMIT Internal Medicine; ATTEND Hospitalist
PROC: ENDOEDS (2018-04-26 13:50)
PROC: ENDOEBX (2018-04-26 13:50)

== ENCOUNTER 2018-08-25 11:58 | Inpatient (IN) ==
[2018-08-25] MEDS ORDERED: *HR* OxyCODONE/APAP 5/325 TABLET PO ONE (12:25)
--- NOTE | 2018-08-25 13:07 | Emergency Department Note ---
Disposition Clinical Impression: Hyperkalemia, Pedal edema, ESRD (end stage renal disease) Anemia Qualifiers: Anemia type: due to chronic kidney disease Chronic kidney disease stage: on chronic dialysis Qualified Code(s): N18.6 - End stage renal disease Disposition: Admitted As Inpatient Condition: Fair Referrals: Coty Vicente MD [Primary Care Provider] - Forms: ED Satisfaction Letter Time of Disposition: 13:57 General Adult HPI - General Chief complaint: ED Weakness Stated complaint: low hemoglobin, leg swelling Time Seen by Provider: 08/25/18 12:04 Source: patient Limitations: no limitations Nursing Notes Reviewed: Yes Vital Signs Reviewed: Yes - History of Present Illness HPI Narrative: Patient presents to the emergency department with a chief complaint of needing dialysis. Patient has a history of CK D and is dialysis dependent. She last had dialysis 2 weeks ago. She states she was seen here yesterday and had a right leg evaluated for swelling. It was negative for DVT or arterial occlusion. She was to have dialysis today. She states they caught her before she went and told her they cannot run her through dialysis with a hemoglobin of 7. She states they told her Pain Scale: 8 - Related Data Home Medications Medication Instructions Recorded Confirmed Albuterol Sulfate [Albuterol 2 puff IH Q4H PRN 09/09/16 06/02/18 Inhaler] Amiodarone [Cordarone] 200 mg PO DAILY 09/09/16 06/02/18 Atorvastatin [Lipitor] 40 mg PO HS 09/09/16 06/02/18 Budesonide/Formoterol 160/4.5 2 puff IH BIDR 09/09/16 06/02/18 [Symbicort 160/4.5] Levothyroxine Sodium [Synthroid] 200 mcg PO QAM 09/09/16 06/02/18 Omeprazole [PriLOSEC] 20 mg PO DAILY 09/09/16 06/02/18 hydrALAZINE [HydrALAZINE] 50 mg PO BID 09/09/16 06/02/18 Folic Acid 1 mg PO DAILY 01/07/18 06/02/18 Metoprolol Succinate [Toprol Xl] 25 mg PO DAILY 01/07/18 06/02/18 cloNIDine HCl [CloNIDine HCl] 0.1 mg PO TID 04/21/18 06/02/18 Previous Rx's Medication Instructions Recorded Collagenase Oint [Santyl] 1 appl TP HS tube 02/16/18 Darbepoetin [Aranesp] 60 mcg SQ QWEEK syringe 02/16/18 Cinacalcet [Sensipar] 30 mg PO DAILY 30 Days #30 tablet 03/22/18 Ondansetron ODT [Zofran ODT] 4 mg SL Q8HR PRN #12 tab.rapdis 04/05/18 Apixaban [Eliquis] 5 mg PO BID #60 tablet 05/09/18 Metoclopramide [Reglan] 5 mg PO 0800,1700 #120 tablet 05/28/18 Nystatin POWDER [Nystop] 1 appl TP BID PRN #1 bottle 06/21/18 Ondansetron [Zofran] 4 mg IVP Q6HR PRN vial 06/21/18 Allergies Allergy/AdvReac Type Severity Reaction Status Date / Time Warfarin [From Coumadin] Allergy Anaphylaxis Verified 06/02/18 11:28 heparin AdvReac Severe Unresponsiv Verified 06/02/18 11:28 e All systems ED: reviewed and negative except as stated. Constitutional: Reports: weakness. Denies: fever Cardiovascular: Denies: chest pain Respiratory: Reports: dyspnea, wheezes Gastrointestinal: Denies: nausea, vomiting Musculoskeletal: Denies: back pain Integumentary: Denies: rash Past Medical History - Past Medical History Attestation: Yes The following information was validated with the patient. Source: patient Medical history: Reports: asthma, atrial fibrillation, diabetes, dialysis, GI bleed, hyperlipidemia, hypertension, renal disease, thyroid disease Surgical history: Reports: appendectomy, cholecystectomy, thyroidectomy, transp lant, other Psychiatric history: Reports: no psych history ACCOUNT PLANNER history: Reports: bilateral tubal ligation - Social History Smoking Status: Never smoker Smokeless Tobacco Status: No Alcohol use: Reports: none Drug use: Reports: none Physical Exam - General Limitations: no limitations General appearance: alert, anxious - Head Head exam: atraumatic, normocephalic - Eye Eye exam: Present: normal appearance - ENT ENT exam: normal exam - Neck Neck exam: Present: normal inspection - Chest Chest inspection: Present: normal inspection - Respiratory Respiratory exam: Present: other (rales in bases) - Cardiovascular Cardiovascular exam: Present: regular rate, normal rhythm - Abdominal Exam Abdominal exam: Present: soft, Non-Tender - Extremities Exam Extremities exam: Present: other (4+ pitting edema right lower extremity greater than left lower extremity) - Neurological Exam Neurological exam: Present: alert - Psychiatric Psychiatric exam: Present: depressed, flat affect - Skin Skin exam: Present: warm, dry Course - Reevaluation(s) Reevaluation #1: Transfusion ordered. Awaiting hospitalist call back for admission. Time: 13:55 - Consultations Consultation #1: Discussed with Dr Fenton. Patient was called to come to dialysis today. We are in agreement to admit the patient for 2 units of PRBCs and dialysis. Time: 13:07 Consultation #2: Dr Rosario accepts for admission Time: 14:19 Vital Signs Temperature 98.4 F 08/25/18 12:02 Pulse Rate 74 08/25/18 12:02 Respiratory Rate 16 08/25/18 12:02 Blood Pressure 163/101 08/25/18 12:02 O2 Sat by Pulse Oximetry 98 08/25/18 12:02 Temperature 98.4 F 08/25/18 12:02 Pulse Rate 73 08/25/18 13:29 Respiratory Rate 18 08/25/18 13:29 Blood Pressure 135/83 08/25/18 13:29 O2 Sat by Pulse Oximetry 100 08/25/18 13:29 Oxygen Delivery Oxygen Delivery Room Air Medical Decision Making - Lab Data Result diagrams: 08/25/18 13:02 08/25/18 13:02 Lab Results 08/25/18 08/25/18 Range/Units 13:02 13:02 WBC 5.5 (4.3-11.1) K/mcL RBC 2.05 L (3.82-4.97) M/mcL Hgb 6.7 L (11.5-15.4) g/dL Hct 20.0 L (35.3-44.9) % MCV 97.6 (83.0-100.0) fL MCH 32.7 (28.0-33.3) pg MCHC 33.5 (31.6-35.5) g/dL RDW 20.2 H (11.5-14.5) % Plt Count 144 (140-400) K/mcL MPV 11.2 (9.4-12.4) fL Sodium 140 (136-145) mEq/L Potassium 5.9 H (3.5-5.1) mEq/L Chloride 100 (98-107) mEq/L Carbon Dioxide 8 L* (23-29) mEq/L BUN 75 H (6-20) mg/dL Creatinine 13.79 H (0.60-1.20) mg/dL Est GFR ( Amer) 4 L (> 60) Est GFR (Non-Af Amer) 3 L (> 60) BUN/Creatinine Ratio 5 L (6-26) Glucose 81 (70-105) mg/dL Calculated Osmolality 311 H (280-300) Calcium 6.6 L (8.6-10.3) mg/dL Critical Care Time Critical Care Time: Yes Total Critical Care Time: 35 Attestation: Critical care performed: Time is exclusive of separately billable procedures. Time includes: direct patient care, patient reassessment, coordination of patient care, interpretation of data (laboratory data, radiology data, and respiratory data), review of patient's medical records, medical consultation and documentation of patient care. Procedures included in critical care time: Procedures excluded from critical care time:
[2018-08-25 13:14] LABS: Hemoglobin 6.7 g/dL (11.5-15.4); Mean Corpuscular HGB Conc 33.5 g/dL (31.6-35.5); Mean Corpuscular Hemoglobin 32.7 pg (28.0-33.3); Mean Corpuscular Volume 97.6 fL (83.0-100.0); Mean Platelet Volume 11.2 fL (9.4-12.4); Platelet Count 144 K/mcL (140-400); Red Blood Count 2.05 M/mcL (3.82-4.97); Red Cell Distribution Width 20.2 % (11.5-14.5)
[2018-08-25 13:41] LABS: Calcium 6.6 mg/dL (8.6-10.3); Potassium 5.9 mEq/L (3.5-5.1)
--- NOTE | 2018-08-25 15:23 | Internal Med History&Physical ---
Date of Encounter: 08/25/18 Time of Encounter: 15:03 Internal Medicine - H&P: HPI Chief complaint: needing dialysis Admitted From: Home Plans for Post Hospital Care: Home History of present illness: Ms. Alexis is a 43 year old female past medical history of end-stage renal disease on hemodialysis with calciphylasix, atrial fibrillation, HTN, HLD, hypothyroidis, asthma, h/o multiple wound infection send in from dialysis center as her hemoglobin was significantly low to get dialyzed as an outpatient. Patient had long-standing hospital stay and life-threatening illness with septic shock in June from C. difficile and Pseudomonas and Acinetobacter bacteremia which needed ICU admission. Patient was transferred to [facility] for further care. She has been noncompliant with her dialysis in her past. She has not had grey lysis for past 2 weeks. She was here yesterday in ER with complain of one week history of right foot pain. She had ultrasound to rule out DVT which was negative, foot x-ray which showed soft tissue swelling. Chest x-ray was unremarkable. Patient was discharged to follow up outpatient dialysis. She says she would not be able to get dialysis as her hemoglobin is low. Patient had CBC done in ER which showed hemoglobin of 6.7 and no significantly elevated white count. Patient denies any fevers chills nausea vomiting or diarrhea. BMP showed potassium of 5.9, metabolic acidosis. EKG showed sinus rhythm with prolonged GA. She denies any diarrhea or abdominal pain. Past Med Surg Social Fam HX - Past Medical History Medical history: asthma, atrial fibrillation, diabetes, dialysis, GI bleed, hyperlipidemia, hypertension, renal disease, thyroid disease Additional medical history: ANEMIA, BLEEDING ULCER,. KIDNEY DIALYSIS Psychiatric history: no psych history - Past Surgical History Surgical History: appendectomy, cholecystectomy, thyroidectomy, transplant, other Additional surgical history: KIDNEY TRANSPLANT 2007, TUBAL LIGATION, shunt danya - Social History Smoking Status: Never smoker Smokeless Tobacco Status: No Alcohol use: none Drug use: none - Family History Father Adopted: No Family Member Ethnicity: Non- Living Status: Hx Family Cardiac Disorders: Yes Hx Family Respiratory Disorders: Yes Hx Family Cancer: Yes Hx Family GI Disorders: No Hx Family Endocrine Disorder: Yes Hx Family Neuromuscular Disorders: No Hx Family Neurologic Disorders: No Hx Family HEENT Disorders: No Hx Family Autoimmune Disorders: No Mother Adopted: No Living Status: Hx Family Cardiac Disorders: Yes Hx Family Respiratory Disorders: No Hx Family Cancer: Yes Hx Family GI Disorders: No Hx Family Endocrine Disorder: No Hx Family Neuromuscular Disorders: No Hx Family Neurologic Disorders: No Hx Family HEENT Disorders: No Hx Family Autoimmune Disorders: No Internal Medicine - H&P: Meds Albuterol Sulfate [Albuterol Inhaler] 2 puff IH Q4H PRN 09/09/16 [History] Amiodarone [Cordarone] 200 mg PO DAILY 09/09/16 [History] Atorvastatin [Lipitor] 40 mg PO HS 09/09/16 [History] Budesonide/Formoterol 160/4.5 [Symbicort 160/4.5] 2 puff IH BIDR 09/09/16 [History] Levothyroxine Sodium [Synthroid] 200 mcg PO QAM 09/09/16 [History] Omeprazole [PriLOSEC] 20 mg PO DAILY 09/09/16 [History] hydrALAZINE [HydrALAZINE] 50 mg PO BID 09/09/16 [History] Folic Acid 1 mg PO DAILY 01/07/18 [History] Metoprolol Succinate [Toprol Xl] 25 mg PO DAILY 01/07/18 [History] Darbepoetin [Aranesp] 60 mcg SQ QWEEK syringe 02/16/18 [Rx] Cinacalcet [Sensipar] 30 mg PO DAILY 30 Days #30 tablet 03/22/18 [Rx] Ondansetron ODT [Zofran ODT] 4 mg SL Q8HR PRN #12 tab.rapdis 04/05/18 [Rx] cloNIDine HCl [CloNIDine HCl] 0.1 mg PO TID 04/21/18 [History] Apixaban [Eliquis] 5 mg PO BID #60 tablet 05/09/18 [Rx] Metoclopramide [Reglan] 5 mg PO 0800,1700 #120 tablet 05/28/18 [Rx] Ondansetron [Zofran] 4 mg IVP Q6HR PRN vial 06/21/18 [Rx] Allergy/AdvReac Type Severity Reaction Status Date / Time Warfarin [From Coumadin] Allergy Anaphylaxis Verified 08/25/18 16:53 heparin AdvReac Severe Unresponsiv Verified 08/25/18 16:53 e All Systems PM: A 10-system review of systems was performed and is negative for pertinent findings except as documented above in the HPI. - Constitutional Vitals: Temp Pulse Resp BP Pulse Ox 98.4 F 73 18 135/83 100 08/25/18 12:02 08/25/18 13:29 08/25/18 13:29 08/25/18 13:29 08/25/18 13:29 Exam: Constitutional: Vitals as noted. Conversant. No Apparent Distress. Unkempt. Obese Eyes : Sclera white, conjunctiva clear, no lid lag, PEARLA. ENT : Grossly normal hearing. No JVD, no cervical lymphadenopathy. no thyromegaly or mass. Respiratory : Clear to auscultation bilaterally. No accessory muscle use, rales, rhonchi or wheezes Cardiovascular : RRR, +S1, +S2. no murmur, gallop, rubs. No chest wall tenderness GI/Abdominal : Obese, Non-tender, Non-distended, no peritoneal signs. multiple healed scars noted. Musculoskeletal: b/l lower extremities swelling. Rt>LT. tender rt dorsum foot without erythema or redness. mild ecchymosis noted. Lt arm swelling with oozing with bandage. with AV fistula. Neurological: AO X3, CN II-XII grossly intact, grossly normal motor and sensory exam. Skin: as noted above. Internal Med - H&P Results - Labs CBC & Chem 7: 08/25/18 13:02 08/25/18 13:02 Labs: Short CBC 08/25/18 Range/Units 13:02 WBC 5.5 (4.3-11.1) K/mcL Hgb 6.7 L (11.5-15.4) g/dL Hct 20.0 L (35.3-44.9) % Plt Count 144 (140-400) K/mcL BMP 08/25/18 13:02 Sodium 140 Potassium 5.9 H Chloride 100 Carbon Dioxide 8 L* BUN 75 H Creatinine 13.79 H Glucose 81 Calcium 6.6 L - EKG Data -: EKG Interpreted by Myself - Assessment and plan (1) Anemia Current Visit: Yes Status: Chronic Assessment and plan: - Patient ordered 2 units of PRBC. - No ongoing acute blood loss. Likely related to CKD. - Follow-up H&H tomorrow Qualifiers: Anemia type: due to chronic kidney disease Chronic kidney disease stage: on chronic dialysis Qualified Code(s): N18.6 - End stage renal disease; D63.1 - Anemia in chronic kidney disease; Z99.2 - Dependence on renal dialysis (2) Foot pain Current Visit: Yes Status: Acute Assessment and plan: - Appear less likely to be infectious. There is no erythema or warmth. No fevers or chills. Given previous severe C. difficile he would not start any antibiotic. - We will get CT of the foot and podiatry consult. Qualifiers: Laterality: right Qualified Code(s): M79.671 - Pain in right foot (3) ESRD (end stage renal disease) Current Visit: Yes Status: Chronic Assessment and plan: - Patient to get dialyzed today. - Nephrology consulted. (4) Hyperkalemia Current Visit: No Status: Resolved Assessment and plan: - Likely related to noncompliance with hemodialysis - EKG with GA prolongation. Sinus rhythm. - Patient to get dialyzed today. - Time Spent With Patient Total time spent is greater than 50% in coordination of care (as documented) at patient's floor/unit and/or counseling patient:
[2018-08-25] MEDS ORDERED: 0.9 % Sodium Chloride 250 ML IVC PRN (15:59)
[2018-08-25] MEDS ORDERED: 0.9 % Sodium Chloride 1,000 ML PRIME SCH (16:00)
--- NOTE | 2018-08-25 16:35 | Nephrology Consult Note ---
Date of Encounter: 08/25/18 Time of Encounter: 16:00 Assessment and Plan (1) Hyperkalemia Current Visit: Yes Status: Deleted Should improve after HD today renal diet advised (2) Anemia Current Visit: Yes Status: Chronic Hgb noted at 6.7 etiology unclear but has not been receiving EPO since missing HD sessions Will transfuse today Qualifiers: Anemia type: due to chronic kidney disease Chronic kidney disease stage: on chronic dialysis Qualified Code(s): N18.6 - End stage renal disease; D63.1 - Anemia in chronic kidney disease; Z99.2 - Dependence on renal dialysis (3) ESRD (end stage renal disease) Current Visit: Yes Status: Chronic Urgent HD today with 1k bath and STAT repeat potassium midway to reasses UF goal of 3-4kh as tolerated (4) Noncompliance with renal dialysis Current Visit: Yes Status: Chronic Lengthy discussion had on the importance of attending HD treatments, taking meds and sticking to diet History of Present Illness - Reason for Consult Consult date: 08/25/18 end stage renal disease Requesting physician: Gracy Rosario - History of Present Illness 43 y o female with PMH of ESRD on HD with longstanding history of noncompliance admitted after missing over a week of HD. Potassium noted at 5.9, bicarb 8 and SCr over 13. Pt was NOT sent from the dialysis for anemia today but rather refused to come to treatment electing to to go the ED as she "did not feel well". She had a low hgb of 6.8 over a week ago and was told to come for transfusion/eval to the ED then and refused to come till the day prior to admission when she was seen and discharged from the ED with hgb at 7 and instructions to return to Hd unit for dialysis which she failed to do. Pt seen and examined on HD appearing very edematous; facial, RUE and LE bilateral noted. Past Med Surg Social Fam HX - Past Medical History Medical history: asthma, atrial fibrillation, diabetes, dialysis, GI bleed, hyperlipidemia, hypertension, renal disease, thyroid disease Additional medical history: ANEMIA, BLEEDING ULCER,. KIDNEY DIALYSIS Psychiatric history: no psych history - Past Surgical History Surgical History: appendectomy, cholecystectomy, thyroidectomy, transplant, other Additional surgical history: KIDNEY TRANSPLANT 2007, TUBAL LIGATION, shunt danya - Social History Smoking Status: Never smoker Smokeless Tobacco Status: No Alcohol use: none Drug use: none - Family History Father Adopted: No Family Member Ethnicity: Non- Living Status: Hx Family Cardiac Disorders: Yes Hx Family Respiratory Disorders: Yes Hx Family Cancer: Yes Hx Family GI Disorders: No Hx Family Endocrine Disorder: Yes Hx Family Neuromuscular Disorders: No Hx Family Neurologic Disorders: No Hx Family HEENT Disorders: No Hx Family Autoimmune Disorders: No Mother Adopted: No Living Status: Hx Family Cardiac Disorders: Yes Hx Family Respiratory Disorders: No Hx Family Cancer: Yes Hx Family GI Disorders: No Hx Family Endocrine Disorder: No Hx Family Neuromuscular Disorders: No Hx Family Neurologic Disorders: No Hx Family HEENT Disorders: No Hx Family Autoimmune Disorders: No Medications and Allergies Albuterol Sulfate [Albuterol Inhaler] 2 puff IH Q4H PRN 09/09/16 [History] Amiodarone [Cordarone] 200 mg PO DAILY 09/09/16 [History] Atorvastatin [Lipitor] 40 mg PO HS 09/09/16 [History] Budesonide/Formoterol 160/4.5 [Symbicort 160/4.5] 2 puff IH BIDR 09/09/16 [History] Levothyroxine Sodium [Synthroid] 200 mcg PO QAM 09/09/16 [History] Omeprazole [PriLOSEC] 20 mg PO DAILY 09/09/16 [History] hydrALAZINE [HydrALAZINE] 50 mg PO BID 09/09/16 [History] Folic Acid 1 mg PO DAILY 01/07/18 [History] Metoprolol Succinate [Toprol Xl] 25 mg PO DAILY 01/07/18 [History] Darbepoetin [Aranesp] 60 mcg SQ QWEEK syringe 02/16/18 [Rx] Cinacalcet [Sensipar] 30 mg PO DAILY 30 Days #30 tablet 03/22/18 [Rx] Ondansetron ODT [Zofran ODT] 4 mg SL Q8HR PRN #12 tab.rapdis 04/05/18 [Rx] cloNIDine HCl [CloNIDine HCl] 0.1 mg PO TID 04/21/18 [History] Apixaban [Eliquis] 5 mg PO BID #60 tablet 05/09/18 [Rx] Metoclopramide [Reglan] 5 mg PO 0800,1700 #120 tablet 05/28/18 [Rx] Ondansetron [Zofran] 4 mg IVP Q6HR PRN vial 06/21/18 [Rx] Allergy/AdvReac Type Severity Reaction Status Date / Time Warfarin [From Coumadin] Allergy Anaphylaxis Verified 08/25/18 16:53 heparin AdvReac Severe Unresponsiv Verified 08/25/18 16:53 e Review of Systems All Systems review (narrative): The rest of the systems are negative. Constitutional: fatigue (admits) Cardiovascular: chest pain (denies), leg edema (admits) Respiratory: dyspnea (denies) Exam - Vital Signs Vital signs: Initial Vital Signs Temp Pulse Resp BP Pulse Ox 98.4 F 74 16 163/101 98 08/25/18 12:02 08/25/18 12:02 08/25/18 12:02 08/25/18 12:02 08/25/18 12:02 Vital Signs - Last 8 Hours Temp Pulse Resp BP Pulse Ox 08/25/18 15:06 74 18 157/104 99 08/25/18 13:29 73 18 135/83 100 08/25/18 12:02 98.4 F 74 16 163/101 98 Intake and Output 08/25/18 08/25/18 08/25/18 07:59 15:59 23:59 Other: Weight 78.925 kg Patient Weight 08/25/18 23:59 Weight 78.925 kg - General Appearance General appearance: chronically ill (NAD) EENT: ATNC, mucous membranes moist Neck: no JVD, supple Additional Comments: dcreased BS bases bilat Cardiology: edema (LE bilat, LUE, facial), normal S1, normal S2 - Dialysis Access Additional Comments: AVF with no thrill or bruit with LUE edema Gastrointestinal: no guarding, obese Additional Comments: healing chronic wounds Integumentary: ecchymotic (RLE, blister) Neurologic: no focal deficit Musculoskeletal: no deformities Psychiatric: mood/affect appropriate Results - Lab Results 08/26/18 06:12 08/26/18 06:12 Most recent lab results Calcium 6.6 mg/dL (8.6-10.3) L 08/25/18 13:02 Consult Discharge Plan - Plan Additional Instructions: 1. Follow up with Dr. Eros Felix at [facility] 2 weeks after discharge. 2. WBAT in surgical shoe right foot. 3. Apply xeroform then dry sterile dressing without MARYBETH wrap daily. Referrals: Coty Vicente MD [Primary Care Provider] -
[2018-08-25] MEDS ORDERED: 0.9 % Sodium Chloride 1,000 ML ONE (17:06)
[2018-08-25 17:26] LABS: Hepatitis B Surface Antibody < 3.10 mIU/mL
[2018-08-25 17:37] LABS: Hepatitis B Surface Antigen Nonreactive (Nonreactive)
[2018-08-25] MEDS: Budesonide/Formoterol 160/4.5 1 PUFF INH IH SCH (22:37)
[2018-08-25] MEDS: hydrALAZINE 25 MG TABLET PO SCH (22:39)
[2018-08-25] MEDS: Apixaban 5 MG TABLET PO SCH (22:39)
[2018-08-25] MEDS: *HR* Amiodarone 200 MG TABLET PO SCH (22:40)
[2018-08-26] MEDS: Acetaminophen 325 MG TABLET PO PRN ×2 (04:04→10:18)
[2018-08-26] MEDS: Nystatin POWDER 30 GM BOTTLE TP PRN (04:13)
[2018-08-26 06:25] LABS: Basophils % 0.7 %; Eosinophils # 0.1 K/mcL (0.0-0.6); Eosinophils % 2.3 %; Immature Granulocytes % 0.9 % (0-4); Lymphocytes # 0.7 K/mcL (0.6-4.6); Lymphocytes % 16.5 %; Mean Corpuscular HGB Conc 33.7 g/dL (31.6-35.5); Mean Corpuscular Hemoglobin 31.3 pg (28.0-33.3); Mean Corpuscular Volume 92.8 fL (83.0-100.0); Mean Platelet Volume 10.4 fL (9.4-12.4); Monocytes # 0.3 K/mcL (0.0-1.3); Monocytes % 7.7 %; Neutrophils # 3.2 K/mcL (1.6-8.9); Nucleated Red Blood Cells 1.6 /100 WBC (0); Platelet Count 128 K/mcL (140-400); Red Blood Count 2.91 M/mcL (3.82-4.97); Red Cell Distribution Width 20.8 % (11.5-14.5); Segmented Neutrophils % 71.9 %
[2018-08-26 06:26] LABS: Hemoglobin 9.1 g/dL (11.5-15.4)
[2018-08-26 06:44] LABS: Calcium 7.4 mg/dL (8.6-10.3); Potassium 3.9 mEq/L (3.5-5.1)
[2018-08-26] MEDS: Budesonide/Formoterol 160/4.5 1 PUFF INH IH SCH ×2 (07:44→22:29)
--- NOTE | 2018-08-26 08:18 | Internal Med Progress Note ---
<Annie Allison - Last Filed: 08/26/18 14:14> Hospitalist Progress Note - Encounter Date of Encounter: 08/26/18 - Exam Vitals: Temp Pulse Resp BP Pulse Ox 98.2 F 73 16 152/92 98 08/26/18 10:43 08/26/18 10:43 08/26/18 10:43 08/26/18 10:43 08/26/18 10:43 - Assessment and Plan (1) Cellulitis Current Visit: Yes Status: Acute (2) Anemia in chronic kidney disease (CKD) Current Visit: Yes Status: Chronic (3) DVT prophylaxis Current Visit: No Status: Acute (4) Afib Current Visit: No Status: Chronic (5) Hyperkalemia Current Visit: Yes Status: Resolved (6) ESRD (end stage renal disease) on dialysis Current Visit: Yes Status: Chronic (7) Noncompliance with renal dialysis Current Visit: Yes Status: Chronic (8) Hypothyroidism Current Visit: No Status: Chronic (9) Hypertension Current Visit: No Status: Chronic (10) Hyperlipidemia Current Visit: No Status: Chronic (11) Secondary hyperparathyroidism (of renal origin) Current Visit: No Status: Chronic (12) C. difficile colitis Current Visit: Yes Status: Chronic - Time Spent with Patient Total time spent is greater than 50% in coordination of care (as documented) at patient's floor/unit and/or counseling patient: Internal Medicine: Result - Labs CBC & Chem 7: 08/26/18 06:12 08/26/18 06:12 Labs: Short CBC 08/26/18 Range/Units 06:12 WBC 4.4 (4.3-11.1) K/mcL Hgb 9.1 L D (11.5-15.4) g/dL Hct 27.0 L (35.3-44.9) % Plt Count 128 L (140-400) K/mcL Neutrophils # 3.2 (1.6-8.9) K/mcL BMP 08/25/18 08/26/18 19:10 06:12 Sodium 141 Potassium 3.1 L D 3.9 D Chloride 100 Carbon Dioxide 21 L BUN 40 H Creatinine 8.79 H Glucose 87 Calcium 7.4 L Liver Function 08/26/18 Range/Units 06:12 Albumin 2.7 L (3.5-5.7) g/dL - Impressions Impressions Foot CT 08/25/18 15:14 IMPRESSION: Focal skin irregularity measuring approximately 9 mm in size along the dorsal aspect of the foot may represent a small soft tissue blister. Extensive soft tissue edema of the ankle and foot with skin thickening and irregularity suggesting cellulitis. No evidence of abscess or deep soft tissue infection. No acute bone or joint abnormality. Small vessel arterial calcifications may suggest diabetes in the proper clinical setting. D/ / 08/25/2018 16:26:35 Gustavo Pham MD / vik Interpreting Provider: Gustavo Pham MD Consult Discharge Plan - Plan Additional Instructions: 1. Follow up with Dr. Eros Felix at [facility] 2 weeks after discharge. 2. WBAT in surgical shoe right foot. 3. Apply xeroform then dry sterile dressing without MARYBETH wrap daily. Referrals: Coty Vicente MD [Primary Care Provider] - - Attending Attestation I examined this patient and my medical decision-making was reviewed with the Resident Physician Dr Diaz. I agree with the documented findings, disposition and treatment plan as described except to the extent set forth below. Ms Alexis is admitted for acute on chronic anemia as identified at outpt HD She has missed 2 weeks of HD and has worsened ESRD 2/2 to this awake, family at bedside. Had hd yesterday. no n/v/confusion/lethargy. denies being fluid overloaded. no cp or palpitations. deneis any signs of bleeding at home. no longer makes urine, no melena, hematochezia, nosebleeds, hemoptysis. in regards to right top of foot pain, present 3 days since she had mechanical fell and fell with her full body weight onto foot. It then became swollen worsened to swelling above the right ankle, became bruised and painful. no wounds. rom ankle and toes intact. + ambulatory dysfunction since fall. no calf pain or cramps. had us of leg to rule out clot given r leg edema when presented to ED 08/24 for pain s/p fall. gen- alert, awake,appears stated age eyes- pupils equal round , no conjunctival pallor cv- reg rate and rhythm, normal s1,s2, no murmurs appreciated, trace non pitting edema to the right foot dorsum and to mid allen lungs- ctabl, no wheezing, rhonchi or crackles, normal resp effort on ra msk- right foot dorsum with edema and right foot with significant ecchymosis second right toe, base of other toes, laterally along the length of the foot and on dorsum under area of blister skin- blister dorsum right foot, NOT tense, filled with clear fluid, ecchymosis as noted above, no RLE erythmea or increased warmth neuro- AAOx3, CN grossly intact, no focal deficits Acute on Chronic anemia with hx anemia of chronic disease- has missed HD with epo for weeks, denies active bleeding, s/p 2 units prbc with appropriate response, cont to monitor, reviewed 02/2018 and 04/2018 cscope and egd for anemia which had no remarkable findings ESRD- presented with met acidosis and heyperkalemai - non compliant with HD- nephro following Right Foot Pain- s/p fall- at this time I feel this foot does not look infected but rather had edema and pain and ecchymosis from traumatic injury- reveiwed CT of foot, no fracture, would benefit from outpt MRI, appreciate podiatry recs- at this time, given severity of cdiff in june and no wbc elevation or fever will hold on abx at this time, reviewed doppler US 08/24 and no dvt, -conservative tx with ice/rest/prn pain control, boot as per podiatry- will cont to monitor, pt further diagnoses and plan as noted by resident <Manav Diaz - Last Filed: 08/26/18 15:41> Hospitalist Progress Note - Encounter Date of Encounter: 08/26/18 Time of Encounter: 08:15 - Subjective Interval History: Patient seen and examined resting comfortably in bed. Patient completed hemodialysis yesterday. Nephrology following. Hemoglobin level has improved after 2 units PRBC transfusion. Awaiting podiatry evaluation for right foot pain/tenderness. Awaiting vascular surgery evaluation for LUE swelling. - Exam Vitals: Temp Pulse Resp BP Pulse Ox 98.7 F 76 17 139/93 97 08/26/18 07:22 08/26/18 07:22 08/26/18 07:22 08/26/18 07:22 08/26/18 07:22 Exam: Constitutional: Conversant. No Apparent Distress. Disheveled. Obese Eyes : Sclera white, conjunctiva clear, no lid lag, PEARLA. ENT : Grossly normal hearing. No JVD, no cervical lymphadenopathy. no thyromegaly or mass. Respiratory : Clear to auscultation bilaterally. No accessory muscle use, rales, rhonchi or wheezes Cardiovascular : RRR, +S1, +S2. no murmur, gallop, rubs. No chest wall tenderness GI/Abdominal : Obese, Non-tender, Non-distended, no peritoneal signs. multiple healed scars noted. Musculoskeletal: b/l lower extremities swelling. R>L. tender right dorsal foot bullae. mild ecchymosis noted. Left arm swelling with AV fistula, dressing in place, distal pulses intact Neurological: AO X3, CN II-XII grossly intact, grossly normal motor and sensory exam. Skin: Warm, pale, tender right dorsal foot bullae with mild ecchymosis noted, right subclavian hemodialysis catheter in place - Assessment and Plan (1) Anemia in chronic kidney disease (CKD) Current Visit: Yes Status: Chronic Assessment and Plan: Hemoglobin level has improved after 2 units PRBC transfusion. EGD on 04/26/18 revealed gastritis, mild Schatzki's ring, 2 cm hiatal hernia Colonoscopy on 02/14/18 revealed diverticulosis in the sigmoid colon Resume home folic acid Patient is on Aranesp as an outpatient, defer further dosing to nephrology Continue monitoring (2) Cellulitis Current Visit: Yes Status: Suspected Assessment and Plan: Suspected One week history of right foot pain s/p fall. Ultrasound was negative for DVT. Foot x-ray showed soft tissue swelling. CT foot revealed focal skin irregularity measuring approximately 9 mm in size along the dorsal aspect of the foot which may represent a small soft tissue blister. Extensive soft tissue edema of the ankle and foot with skin thickening and irregularity suggesting cellulitis. No evidence of abscess or deep soft tissue infection. Podiatry consulted, recommends one time dose of IV antibiotics and discharge on oral doxycycline. However, there is no erythema or warmth. No fevers or chills. Patient is at risk for further GI symptoms with antibiotic use given the severity of her C. difficile colitis in May requiring ICU management. Will continue to monitor her clinical course closely and consider administrating antibiotics if the patient begins to show signs of infection. (3) Hypothyroidism Current Visit: Yes Status: Chronic Assessment and Plan: TSH level was 17.463 on 06/24/18 Repeat TSH level 195.710 and free T4 level 0.68 Continue Synthroid 100 mcg IV daily (patient reports lines with Synthroid 200 g by mouth daily on an empty stomach in the morning) Thyroid ultrasound ordered. Continue monitoring. Patient has a new visit appointment scheduled with [facility] on 09/14 03/04 (4) C. difficile colitis Current Visit: Yes Status: Chronic Assessment and Plan: Patient had long-standing hospital stay and life-threatening illness with septic shock in June from C. difficile and Pseudomonas and Acinetobacter bacteremia which required ICU admission and transfer to [facility] for further care. Continue contact precautions (5) ESRD (end stage renal disease) on dialysis Current Visit: Yes Status: Chronic Assessment and Plan: Patient completed hemodialysis yesterday. Right subclavian temporary hemodialysis catheter in place. Vascular surgeon consulted due to complication with left upper extremity graft and patient's noncompliance with outpatient follow-up Nephrology following. (6) Renal dialysis device, implant, or graft complication Current Visit: Yes Status: Acute Assessment and Plan: Vascular surgeon consulted due to complication with left upper extremity graft and patient's noncompliance with outpatient follow-up (7) Noncompliance with renal dialysis Current Visit: Yes Status: Chronic Assessment and Plan: She has been noncompliant with her dialysis in her past. She has not had dialysis for past 2 weeks prior to arrival. (8) Hyperkalemia Current Visit: Yes Status: Resolved Assessment and Plan: Likely related to noncompliance with hemodialysis EKG with MA prolongation. Sinus rhythm. Resolved with hemodialysis. Continue monitoring (9) Afib Current Visit: No Status: Chronic Assessment and Plan: Continue Amiodarone PO Continue Eliquis for anticoagulation. (10) Hypertension Current Visit: No Status: Chronic Assessment and Plan: Continue home meds. (11) Hyperlipidemia Current Visit: No Status: Chronic Assessment and Plan: Continue home meds. (12) Secondary hyperparathyroidism (of renal origin) Current Visit: No Status: Chronic Assessment and Plan: Hypocalcemia due to secondary hyperparathyroidism Albumin 2.7, corrected calcium 8.4, and Ionized calcium levels 0.81 Continue home meds Patient has a new visit appointment scheduled with [facility] on 3/18/19 (13) DVT prophylaxis Current Visit: No Status: Acute Assessment and Plan: Eliquis - Time Spent with Patient Total time spent is greater than 50% in coordination of care (as documented) at patient's floor/unit and/or counseling patient: Internal Medicine: Result - Labs CBC & Chem 7: 08/26/18 06:12 08/26/18 06:12 Labs: Short CBC 08/25/18 08/26/18 Range/Units 13:02 06:12 WBC 5.5 4.4 (4.3-11.1) K/mcL Hgb 6.7 L 9.1 L D (11.5-15.4) g/dL Hct 20.0 L 27.0 L (35.3-44.9) % Plt Count 144 128 L (140-400) K/mcL Neutrophils # 3.2 (1.6-8.9) K/mcL BMP 08/25/18 08/25/18 08/26/18 13:02 19:10 06:12 Sodium 140 141 Potassium 5.9 H 3.1 L D 3.9 D Chloride 100 100 Carbon Dioxide 8 L* 21 L BUN 75 H 40 H Creatinine 13.79 H 8.79 H Glucose 81 87 Calcium 6.6 L 7.4 L - Pulse Oximetry Interpretation Digit-Finger Pulse Oximetry Readin (On ambient air) - Impressions Impressions Foot CT 08/25/18 15:14 IMPRESSION: Focal skin irregularity measuring approximately 9 mm in size along the dorsal aspect of the foot may represent a small soft tissue blister. Extensive soft tissue edema of the ankle and foot with skin thickening and irregularity suggesting cellulitis. No evidence of abscess or deep soft tissue infection. No acute bone or joint abnormality. Small vessel arterial calcifications may suggest diabetes in the proper clinical setting. D/ / 08/25/2018 16:26:35 Gustavo Pham MD / vik Interpreting Provider: Gustavo Pham MD <Annie Allison - Last Filed: 08/26/18 14:14> (1) Cellulitis Qualifiers: Site of cellulitis of extremity: lower extremity Laterality: right (2) Anemia in chronic kidney disease (CKD) Qualifiers: Chronic kidney disease stage: on chronic dialysis Qualified Code(s): N18.6 - End stage renal disease; D63.1 - Anemia in chronic kidney disease; Z99.2 - Dependence on renal dialysis (4) Afib Qualifiers: Atrial fibrillation type: chronic Qualified Code(s): I48.2 - Chronic atrial fibrillation (8) Hypothyroidism Qualifiers: Hypothyroidism type: unspecified Qualified Code(s): E03.9 - Hypothyroidism, unspecified (9) Hypertension Qualifiers: Hypertension type: essential hypertension Qualified Code(s): I10 - Essential (primary) hypertension (10) Hyperlipidemia Qualifiers: Hyperlipidemia type: unspecified Qualified Code(s): E78.5 - Hyperlipidemia, unspecified <Manav Diaz - Last Filed: 08/26/18 15:41> (1) Anemia in chronic kidney disease (CKD) Qualifiers: Chronic kidney disease stage: on chronic dialysis Qualified Code(s): N18.6 - End stage renal disease; D63.1 - Anemia in chronic kidney disease; Z99.2 - Dependence on renal dialysis (2) Cellulitis Qualifiers: Site of cellulitis: extremity Site of cellulitis of extremity: lower extremity Laterality: right Qualified Code(s): L03.115 - Cellulitis of right lower limb (3) Hypothyroidism Qualifiers: Hypothyroidism type: unspecified Qualified Code(s): E03.9 - Hypothyroidism, unspecified (6) Renal dialysis device, implant, or graft complication Qualifiers: Encounter type: initial encounter Qualified Code(s): T82.9XXA - Unspecified complication of cardiac and vascular prosthetic device, implant and graft, initial encounter (9) Afib Qualifiers: Atrial fibrillation type: chronic Qualified Code(s): I48.2 - Chronic atrial fibrillation (10) Hypertension Qualifiers: Hypertension type: essential hypertension Qualified Code(s): I10 - Essential (primary) hypertension (11) Hyperlipidemia Qualifiers: Hyperlipidemia type: unspecified Qualified Code(s): E78.5 - Hyperlipidemia, unspecified
[2018-08-26] MEDS ORDERED: Ondansetron ODT 4 MG TAB.RAPDIS SL PRN (08:35)
[2018-08-26 08:47] LABS: Magnesium 1.7 mg/dL (1.6-2.6); Phosphorous 6.4 mg/dL (2.7-4.5)
--- NOTE | 2018-08-26 08:52 | Podiatry Consult Note ---
Date of Encounter: 08/26/18 Time of Encounter: 08:51 Assessment and Plan (1) Foot pain Current visit: Yes Status: Chronic 1. Patient evaluated and treated. Xrays and CT scan reviewed which shows no evidence of fracture or dislocation. No surgical intervention warranted. Will consider MRI of the foot in the outpatient setting if she continues to have sy mptoms. Patient will need surgical shoe for the right foot at discharge for protective weightbearing. Qualifiers: Laterality: right Qualified Code(s): M79.671 - Pain in right foot (2) Cellulitis Current visit: No Status: Acute 1. Patient has cellulitis of the right foot, likely from the bulla at the dorsal foot. Limited concern for deep infection given her clinical picture. I recommend a 1 time dose of IV antibiotics that is safe for her CKD, then discharge with a 1 week course of PO Doxycycline. Bulla should be dressed with xeroform and dry dressing daily while admitted and after discharge. 2. Patient does have evidence of calcified vessels and likely PVD. Will order ABIs if she is unable to resolve the cellulitis with antibiotics and wound care. Qualifiers: Site of cellulitis: unspecified site Qualified Code(s): L03.90 - Cellulitis, unspecified History of Present Illness Chief complaint: right foot redness HPI: Ms. Alexis is a 43 year old female with a history of end-stage renal disease on hemodialysis with calciphylaxis, atrial fibrillation, HTN, HLD, hypothyroidis, asthma, sent from dialysis center as her hemoglobin was significantly low to get dialyzed as an outpatient. Podiatry was consulted to evaluate right foot redness . Patient reports a fall and twisting of the foot 2 days ago. She reports mild pain but does have redness and a small blister. She denies n/v/f/c today and is hopeful to discharge this weekend. Past Med Surg Social Fam HX - Past Medical History Medical history: asthma, atrial fibrillation, diabetes, dialysis, GI bleed, hyperlipidemia, hypertension, renal disease, thyroid disease Additional medical history: ANEMIA, BLEEDING ULCER,. KIDNEY DIALYSIS Psychiatric history: no psych history - Past Surgical History Surgical History: appendectomy, cholecystectomy, thyroidectomy, transplant, other Additional surgical history: KIDNEY TRANSPLANT 2007, TUBAL LIGATION, shunt danya - Social History Smoking Status: Never smoker Smokeless Tobacco Status: No Alcohol use: none Drug use: none - Family History Father Adopted: No Family Member Ethnicity: Non- Living Status: Hx Family Cardiac Disorders: Yes Hx Family Respiratory Disorders: Yes Hx Family Cancer: Yes Hx Family GI Disorders: No Hx Family Endocrine Disorder: Yes Hx Family Neuromuscular Disorders: No Hx Family Neurologic Disorders: No Hx Family HEENT Disorders: No Hx Family Autoimmune Disorders: No Mother Adopted: No Living Status: Hx Family Cardiac Disorders: Yes Hx Family Respiratory Disorders: No Hx Family Cancer: Yes Hx Family GI Disorders: No Hx Family Endocrine Disorder: No Hx Family Neuromuscular Disorders: No Hx Family Neurologic Disorders: No Hx Family HEENT Disorders: No Hx Family Autoimmune Disorders: No Medications and Allergies Albuterol Sulfate [Albuterol Inhaler] 2 puff IH Q4H PRN 09/09/16 [History] Amiodarone [Cordarone] 200 mg PO DAILY 09/09/16 [History] Atorvastatin [Lipitor] 40 mg PO HS 09/09/16 [History] Budesonide/Formoterol 160/4.5 [Symbicort 160/4.5] 2 puff IH BIDR 09/09/16 [History] Levothyroxine Sodium [Synthroid] 200 mcg PO QAM 09/09/16 [History] Omeprazole [PriLOSEC] 20 mg PO DAILY 09/09/16 [History] hydrALAZINE [HydrALAZINE] 50 mg PO BID 09/09/16 [History] Folic Acid 1 mg PO DAILY 01/07/18 [History] Metoprolol Succinate [Toprol Xl] 25 mg PO DAILY 01/07/18 [History] Darbepoetin [Aranesp] 60 mcg SQ QWEEK syringe 02/16/18 [Rx] Cinacalcet [Sensipar] 30 mg PO DAILY 30 Days #30 tablet 03/22/18 [Rx] Ondansetron ODT [Zofran ODT] 4 mg SL Q8HR PRN #12 tab.rapdis 04/05/18 [Rx] cloNIDine HCl [CloNIDine HCl] 0.1 mg PO TID 04/21/18 [History] Apixaban [Eliquis] 5 mg PO BID #60 tablet 05/09/18 [Rx] Metoclopramide [Reglan] 5 mg PO 0800,1700 #120 tablet 05/28/18 [Rx] Ondansetron [Zofran] 4 mg IVP Q6HR PRN vial 06/21/18 [Rx] Allergy/AdvReac Type Severity Reaction Status Date / Time Warfarin [From Coumadin] Allergy Anaphylaxis Verified 08/25/18 16:53 heparin AdvReac Severe Unresponsiv Verified 08/25/18 16:53 e All Systems Reviewed: The remainder of the systems were reviewed and are negative Physical Exam - Constitutional Vitals: Temp Pulse Resp BP Pulse Ox 98.7 F 76 16 139/93 95 08/26/18 07:22 08/26/18 07:22 08/26/18 07:44 08/26/18 07:22 08/26/18 07:44 Exam: Alert, oriented x3, mild distress. Vascular: Non-palpable DP or PT pulses bilaterally. Capillary refill less than 3 seconds to all digits. Dermatology: Right dorsal foot with mild erythema and ecchymosis. There is a small bulla dorsal right forefoot without evidence of deep infection or fluctuance. Mild erythema of the dorsal right foot. Musculoskeletal: Mild tenderness metatarsal shaft 2-4 right foot. No pain with manual compression of calf. Neuro: Sensations diminished bilaterally. Results - Labs Result Diagrams: 08/26/18 06:12 08/26/18 06:12 Labs: Abnormal lab results RBC 2.91 M/mcL (3.82-4.97) L 08/26/18 06:12 Hgb 9.1 g/dL (11.5-15.4) L D 08/26/18 06:12 Hct 27.0 % (35.3-44.9) L 08/26/18 06:12 RDW 20.8 % (11.5-14.5) H 08/26/18 06:12 Plt Count 128 K/mcL (140-400) L 08/26/18 06:12 Nucleated RBCs/100 WBC 1.6 /100 WBC (0) H 08/26/18 06:12 Carbon Dioxide 21 mEq/L (23-29) L 08/26/18 06:12 BUN 40 mg/dL (6-20) H 08/26/18 06:12 Creatinine 8.79 mg/dL (0.60-1.20) H 08/26/18 06:12 Est GFR ( Amer) 6 (> 60) L 08/26/18 06:12 Est GFR (Non-Af Amer) 5 (> 60) L 08/26/18 06:12 BUN/Creatinine Ratio 5 (6-26) L 08/26/18 06:12 POC Glucose 57 mg/dL (70-99) L 08/25/18 16:46 Calculated Osmolality 301 (280-300) H 08/26/18 06:12 Calcium 7.4 mg/dL (8.6-10.3) L 08/26/18 06:12 Phosphorus 6.4 mg/dL (2.7-4.5) H 08/26/18 06:12 Hep Bs Antibody < 3.10 mIU/mL (10.00-) L 08/25/18 16:42 H & H 08/25/18 08/26/18 Range/Units 13:02 06:12 Hgb 6.7 L 9.1 L D (11.5-15.4) g/dL Hct 20.0 L 27.0 L (35.3-44.9) % All other labs normal. Consult Discharge Plan - Plan Additional Instructions: 1. Follow up with Dr. Eros Felix at [facility] 2 weeks after discharge. 2. WBAT in surgical shoe right foot. 3. Apply xeroform then dry sterile dressing without MARYBETH wrap daily. Referrals: Coty Vicente MD [Primary Care Provider] -
[2018-08-26] MEDS ORDERED: *HR* Amiodarone 200 MG TABLET PO SCH (09:00)
[2018-08-26 09:17] LABS: VBG Ionized Calcium 0.81 mmol/L (1.15-1.35)
[2018-08-26 09:18] LABS: Albumin 2.7 g/dL (3.5-5.7)
[2018-08-26 10:00] LABS: Thyroid Stimulating Hormone 195.71 mcIU/mL (0.340-5.600)
[2018-08-26] MEDS: Apixaban 5 MG TABLET PO SCH ×2 (10:12→22:18)
[2018-08-26] MEDS: Metoprolol XL (24 HR) Succ 25 MG TAB.ER.24H PO SCH (10:13)
[2018-08-26] MEDS: hydrALAZINE 25 MG TABLET PO SCH ×2 (10:13→22:18)
[2018-08-26] MEDS: Folic Acid 1 MG TABLET PO SCH (10:13)
[2018-08-26] MEDS: cloNIDine HCl 0.1 MG TABLET PO SCH ×3 (10:13→22:18)
[2018-08-26] MEDS: *HR* Amiodarone 200 MG TABLET PO SCH (10:13)
[2018-08-26] MEDS ORDERED: *HR* Dextrose 50 % in Water (Syg) 50 ML SYRINGE IVP PRN (11:47)
[2018-08-26] MEDS ORDERED: Dextrose Gel 15 GM/37.5 ML TUBE PO PRN ×2 (11:47)
[2018-08-26] MEDS ORDERED: D5% in Water 1,000 ML IVC PRN (11:47)
[2018-08-26] MEDS ORDERED: Levothyroxine Sodium 100 MCG VIAL IVP ONE (14:21)
[2018-08-26] MEDS: Insulin LISPRO 300 UNITS/3 ML VIAL SQ SCH ×2 (17:37→22:15)
--- NOTE | 2018-08-26 18:27 | Nephrology Progress Note ---
Date of Encounter: 08/26/18 Time of Encounter: 13:00 - Assessment and Plan (1) Hyperkalemia Current Visit: Yes Status: Deleted Resolved after HD Renal diet advised (2) Anemia Current Visit: Yes Status: Chronic Hgb improved at 9.1 after transfusion 2units pRBCs yesterday Will dose with aranesp Iron studies Stool guaiac per primary or any further workup but suspect lack of EPO a contr ibuting factor from noncompliance with HD. Previous GI workup noted Qualifiers: Anemia type: due to chronic kidney disease Chronic kidney disease stage: on chronic dialysis Qualified Code(s): N18.6 - End stage renal disease; D63.1 - Anemia in chronic kidney disease; Z99.2 - Dependence on renal dialysis (3) ESRD (end stage renal disease) Current Visit: Yes Status: Chronic s/p HD yesterday, will plan another session tomorrow (4) Noncompliance with renal dialysis Current Visit: Yes Status: Chronic Encouraged adherence to HD treatments once more as I have done countless times now Subjective Interval history: Pt seen and examined feeling much better eating lunch after HD yesterday and transfusion. No new complaints. Less generalized edema overall. Objective - Vital Signs Vital signs: Vital Signs Temp Pulse Resp BP Pulse Ox 08/26/18 17:02 97.8 F 60 16 133/85 100 08/26/18 14:49 97.6 F 60 16 147/90 100 08/26/18 10:43 98.2 F 73 16 152/92 98 08/26/18 07:44 16 95 08/26/18 07:22 98.7 F 76 17 139/93 97 08/26/18 03:51 97.6 F 79 18 148/96 100 08/25/18 23:52 97.8 F 79 17 148/84 99 08/25/18 22:37 16 154/98 98 08/25/18 21:35 97.5 F L 82 16 154/98 100 08/25/18 21:07 96.8 F L 18 125/88 08/25/18 21:00 156/100 08/25/18 20:45 124/107 08/25/18 20:30 132/79 08/25/18 20:15 141/103 08/25/18 20:06 96.8 F L 76 18 190/114 08/25/18 20:00 190/104 08/25/18 19:45 148/111 08/25/18 19:40 96.9 F L 77 18 181/116 08/25/18 19:30 187/119 08/25/18 19:25 96.2 F L 73 18 185/114 08/25/18 19:15 183/114 08/25/18 19:11 96.6 F L 73 16 182/112 08/25/18 19:00 181/113 08/25/18 18:45 188/117 08/25/18 18:40 96.4 F L 67 16 179/84 08/25/18 18:30 176/123 Intake and Output 08/26/18 08/26/18 08/26/18 07:59 15:59 23:59 Other: Blood Glucose* 88 86 79 - General Appearance General appearance: Present: chronically ill (NAD) EENT: Present: ATNC, mucous membranes moist Neck: Present: no JVD, supple Respiratory: Present: clear Cardiology: Present: edema (improved LE edema and LUE), normal S1, normal S2 Dialysis Vascular Access: Venous Catheter Additional Comments: AVF arm L with no thrill, bruit and edema Gastrointestinal: Present: no tenderness, no guarding Additional Comments: healing chronic wounds Integumentary: Present: warm and dry, ecchymotic (RLE, blister) Neurologic: Present: no focal deficit Musculoskeletal: Present: no deformities Psychiatric: Present: mood/affect appropriate, cooperative - Lab 08/26/18 06:12 08/26/18 06:12 Most recent lab results Calcium 7.4 mg/dL (8.6-10.3) L 08/26/18 06:12 Phosphorus 6.4 mg/dL (2.7-4.5) H 08/26/18 06:12 Magnesium 1.7 mg/dL (1.6-2.6) 08/26/18 06:12 Consult Discharge Plan - Plan Additional Instructions: 1. Follow up with Dr. Eros Felix at [facility] 2 weeks after discharge. 2. WBAT in surgical shoe right foot. 3. Apply xeroform then dry sterile dressing without MARYBETH wrap daily. Referrals: Ctoy Vicente MD [Primary Care Provider] -
[2018-08-26] MEDS ORDERED: Darbepoetin 100 MCG/0.5 ML SYRINGE SQ SCH (23:45)
[2018-08-27 00:49] LABS: % Iron Saturation 28 % (15-50); Iron 46 mcg/dL (50-170); Transferrin 117 mg/dL (203-362)
[2018-08-27 01:08] LABS: Ferritin > 1500 ng/mL (10-120)
[2018-08-27] MEDS: Insulin LISPRO 300 UNITS/3 ML VIAL SQ SCH ×4 (07:57→21:05)
--- NOTE | 2018-08-27 08:17 | Internal Med Progress Note ---
<Annie Allison - Last Filed: 08/27/18 12:38> Hospitalist Progress Note - Encounter Date of Encounter: 08/27/18 - Exam Vitals: Temp Pulse Resp BP Pulse Ox 98.5 F 61 18 119/69 98 08/27/18 11:06 08/27/18 11:06 08/27/18 11:06 08/27/18 11:06 08/27/18 11:06 - Assessment and Plan (1) Cellulitis Current Visit: Yes Status: Suspected (2) Anemia in chronic kidney disease (CKD) Current Visit: Yes Status: Chronic (3) DVT prophylaxis Current Visit: No Status: Acute (4) Afib Current Visit: No Status: Chronic (5) Hyperkalemia Current Visit: Yes Status: Resolved (6) ESRD (end stage renal disease) on dialysis Current Visit: Yes Status: Chronic (7) Noncompliance with renal dialysis Current Visit: Yes Status: Chronic (8) Hypothyroidism Current Visit: Yes Status: Chronic (9) Hypertension Current Visit: No Status: Chronic (10) Hyperlipidemia Current Visit: No Status: Chronic (11) Secondary hyperparathyroidism (of renal origin) Current Visit: No Status: Chronic (12) C. difficile colitis Current Visit: Yes Status: Chronic - Time Spent with Patient Total time spent is greater than 50% in coordination of care (as documented) at patient's floor/unit and/or counseling patient: Internal Medicine: Result - Labs CBC & Chem 7: 08/27/18 09:07 08/27/18 09:07 Labs: Short CBC 08/27/18 Range/Units 09:07 WBC 3.7 L (4.3-11.1) K/mcL Hgb 8.5 L (11.5-15.4) g/dL Hct 25.6 L (35.3-44.9) % Plt Count 100 L (140-400) K/mcL Neutrophils # 2.6 (1.6-8.9) K/mcL BMP 08/27/18 09:07 Sodium 142 Potassium 3.9 Chloride 101 Carbon Dioxide 20 L BUN 42 H Creatinine 9.37 H Glucose 116 H Calcium 6.8 L - ABG Interpretation ABG results: PT/INR, D-dimer PT 23.3 Seconds (9.4-12.1) H D 08/27/18 09:07 Consult Discharge Plan - Plan Additional Instructions: 1. Follow up with Dr. Eros Felix at [facility] 2 weeks after discharge. 2. WBAT in surgical shoe right foot. 3. Apply xeroform then dry sterile dressing without MARYBETH wrap daily. Referrals: Eros Carreon, DPM [Partnered Physician] - Coty Vicente MD [Primary Care Provider] - - Attending Attestation I examined this patient and my medical decision-making was reviewed with the Resident Physician Dr Lagunas. I agree with the documented findings, disposition and treatment plan as described except to the extent set forth below. Ms Alexis is admitted for acute on chronic anemia as identified at outpt HD She has missed 2 weeks of HD and has worsened ESRD 2/2 to this awake, family and RN at bedside. She denies fevers, chills, n/v, sob. She states she iced her foot and elevated it all day yesterday and it looks almst back to normal. pain improved. I personally discussed her home meds with pharmacist whom completed med rec in ED and he notes she absolutely was not taking home meds. He confirmed they had not been filled in months and she admitted to him she was not taking them. We have dc'd iv synthroid and changed to oral and dc'd US thyroid for this reason this morning. gen- alert, awake,appears stated age cv- reg rate and rhythm, normal s1,s2, no murmurs appreciated,no pitting edema bl LE lungs- ctabl, no wheezing, rhonchi or crackles, normal resp effort on ra msk- right foot dorsum and RLE complete resolution of edema, persistent ecchymosis, no pain with rom skin- blister dorsum right foot, NOT tense, filled with clear fluid, ecchymosis as noted above, no RLE erythmea or increased warmth neuro- AAOx3, CN grossly intact, no focal deficits Acute on Chronic anemia with hx anemia of chronic disease, JORGE- has missed HD with epo for weeks, denies active bleeding, s/p 2 units prbc with appropriate response, cont to monitor, -02/2018 and 04/2018 cscope and egd for anemia which had no remarkable findings -epo as per nephro ESRD- HD as per nephro Right Foot Pain- s/p fall- appears to be traumatic injury that resulted in edema and subsequent blister at top of foot, currently no s/s of infectious process on exam or labs, CT showed blister and soft tissue edema, clinically this does not appear infected, will cont to monitor however as if blister bursts nd she has open wound I would consider her at risk for infection at that time -would benefit from outpt MRI, appreciate podiatry recs- at this time, given severity of cdiff in june and no wbc elevation or fever as well as improvement with ice/elevation will hold on abx at this time, reviewed doppler US 08/24 and no dvt -conservative tx with ice/rest/prn pain control,- will cont to monitor, pt Hypothyroidism, tsh 195, low t4- / noncompliance with home med as confirmed by pharmacy (no fill in months)- change IV synthroid to PO, outpt tsh check in 4-6 weeks, endo outpt further diagnoses and plan as noted by resident <Stephen Lagunas - Last Filed: 08/27/18 16:54> Hospitalist Progress Note - Encounter Date of Encounter: 08/27/18 Time of Encounter: 09:45 - Subjective Interval History: Ms. Alexis is a 43F with PMH of ESRD on HD, Afib, HTN, HLD, hypothyroidism, asthma, and anemia. She was originally admitted on 08/25/18 after a fall in which she injured her right foot. She was found to have an anemia in the ED with Hgb of 6.7. She was subsequently transfused 2 units pRBCs on 08/25 with appropriate response in H&H. She does have a history of chronic anemia and typically receiv es EPO with her HD. However she was noncompliant with her HD prior to admission. Foot x-ray revealed soft tissue swelling. LE doppler was negative for DVT. Pt seen and examined at bedside today. No new or acute complaints. States the swelling in her right ankle has decreased significantly. Continues to deny fever, chills, chest pain, shortness of breath, abdominal pain, nausea, vomiting, or urinary issues. States she is having normal bowel movements. - Exam Vitals: Temp Pulse Resp BP Pulse Ox 98.6 F 57 15 128/79 96 08/27/18 07:19 08/27/18 07:19 08/27/18 07:19 08/27/18 07:19 08/27/18 07:19 Exam: Constitutional: Obese female in no acute distress Eyes: PERRL. EOMI. sclera anicteric. conjunctiva pink. Neck: supple, tachea midline Respiratory: Clear to auscultation bilaterally. No accessory muscle use, rales, rhonchi or wheezes Cardiovascular: RRR, +S1, +S2. no murmur, gallop, rubs. No chest wall tenderness GI/Abdominal : Obese, Non-tender, Non-distended, no peritoneal signs. multiple healed scars noted. Musculoskeletal: b/l lower extremities swelling. R>L. tender right dorsal foot bullae. mild ecchymosis noted. Left arm swelling with AV fistula, dressing in place, distal pulses intact Neurological: A&Ox3, no focal deficits. no speech difficulty or abnormality. Skin: Warm, pale, tender right dorsal foot bullae with mild ecchymosis noted, right subclavian hemodialysis catheter in place - Assessment and Plan (1) Cellulitis Current Visit: Yes Status: Suspected Assessment and Plan: Suspected but less likely One week history of right foot pain s/p fall. Ultrasound was negative for DVT. Foot x-ray showed soft tissue swelling. CT foot revealed focal skin irregularity measuring approximately 9 mm in size along the dorsal aspect of the foot which may represent a small soft tissue blister. Extensive soft tissue edema of the ankle and foot with skin thickening and irregularity suggesting cellulitis. No evidence of abscess or deep soft tissue infection. Podiatry consulted, recommends one time dose of IV antibiotics and discharge on oral doxycycline. However, there is no erythema or warmth. No fevers or chills. Patient is at risk for further GI symptoms with antibiotic use given the severity of her C. difficile colitis in May requiring ICU management. Furthermore, edema improved significantly with elevation of the extremity overnight. Will continue to monitor her clinical course closely and consider administrating antibiotics if the patient begins to show signs of infection. (2) Anemia in chronic kidney disease (CKD) Current Visit: Yes Status: Chronic Assessment and Plan: Hemoglobin level has improved after 2 units PRBC transfusion on 08/25/18 EGD on 04/26/18 revealed gastritis, mild Schatzki's ring, 2 cm hiatal hernia Colonoscopy on 02/14/18 revealed diverticulosis in the sigmoid colon Resume home folic acid Patient is on Aranesp as an outpatient, defer further dosing to nephrology Continue monitoring (3) Afib Current Visit: No Status: Chronic Assessment and Plan: Continue Amiodarone PO Continue Eliquis for anticoagulation. (4) Hyperkalemia Current Visit: Yes Status: Resolved Assessment and Plan: Likely related to noncompliance with hemodialysis EKG with LA prolongation. Sinus rhythm. Resolved with hemodialysis. Continue monitoring (5) ESRD (end stage renal disease) on dialysis Current Visit: Yes Status: Chronic Assessment and Plan: Patient completed hemodialysis on Monday08/25/18 Right subclavian temporary hemodialysis catheter in place. Vascular surgeon consulted due to complication with left upper extremity graft and patient's noncompliance with outpatient follow-up Nephrology following. (6) Noncompliance with renal dialysis Current Visit: Yes Status: Chronic Assessment and Plan: She has been noncompliant with her dialysis in her past. She has not had dialysis for past 2 weeks prior to arrival. Pt also complaining of left upper extremity swelling for approximately 3 months. Vascular surgery evaluated pt for HD fistula management. Per Dr Kirk's recs, a venous duplex scan was ordered to rule out possible deep venous involvement. If DVT is noted, pt is already on eliquis. Will follow for further vascular surg recs (7) Hypothyroidism Current Visit: Yes Status: Chronic Assessment and Plan: TSH level was 17.463 on 06/24/18 Repeat TSH level 195.710 and free T4 level 0.68 Continue Synthroid 200mcg daily. Originally pt stated she had been taking synthroid at home, however upon review of prescription refills with the pharmacy it was discovered that the pt was non-compliant with this home regimen Cancelled thyroid ultrasound upon discovery that pt was not taking home synthroid Continue monitoring. Patient has a new visit appointment scheduled with [facility] on 10/01/18 (8) Hypertension Current Visit: Yes Status: Chronic Assessment and Plan: Continue home meds. (9) Hyperlipidemia Current Visit: Yes Status: Chronic Assessment and Plan: Continue home meds. (10) Secondary hyperparathyroidism (of renal origin) Current Visit: No Status: Chronic Assessment and Plan: Hypocalcemia due to secondary hyperparathyroidism Albumin 2.7, corrected calcium 8.4, and Ionized calcium levels 0.81 Continue home meds Patient has a new visit appointment scheduled with [facility] on 10/01/18 (11) C. difficile colitis Current Visit: Yes Status: Chronic Assessment and Plan: Patient had long-standing hospital stay and life-threatening illness with septic shock in June from C. difficile and Pseudomonas and Acinetobacter bacteremia which required ICU admission and transfer to [facility] for further care. Continue contact precautions DVT Prophylaxis: on Eliquis - Time Spent with Patient Total time spent is greater than 50% in coordination of care (as documented) at patient's floor/unit and/or counseling patient: Internal Medicine: Result - Labs CBC & Chem 7: 08/27/18 09:07 08/27/18 09:07 Labs: BMP 08/26/18 06:12 Sodium 141 Potassium 3.9 D Chloride 100 Carbon Dioxide 21 L BUN 40 H Creatinine 8.79 H Glucose 87 Calcium 7.4 L Liver Function 08/26/18 Range/Units 06:12 Albumin 2.7 L (3.5-5.7) g/dL <Annie Allison - Last Filed: 08/27/18 12:38> (1) Cellulitis Qualifiers: Site of cellulitis: extremity Site of cellulitis of extremity: lower extremity Laterality: right Qualified Code(s): L03.115 - Cellulitis of right lower limb (2) Anemia in chronic kidney disease (CKD) Qualifiers: Chronic kidney disease stage: on chronic dialysis Qualified Code(s): N18.6 - End stage renal disease; D63.1 - Anemia in chronic kidney disease; Z99.2 - Dependence on renal dialysis (4) Afib Qualifiers: Atrial fibrillation type: chronic Qualified Code(s): I48.2 - Chronic atrial fibrillation (8) Hypothyroidism Qualifiers: Hypothyroidism type: unspecified Qualified Code(s): E03.9 - Hypothyroidism, unspecified (9) Hypertension Qualifiers: Hypertension type: essential hypertension Qualified Code(s): I10 - Essential (primary) hypertension (10) Hyperlipidemia Qualifiers: Hyperlipidemia type: unspecified Qualified Code(s): E78.5 - Hyperlipidemia, unspecified <Stephen Lagunas - Last Filed: 08/27/18 16:54> (1) Cellulitis Qualifiers: Site of cellulitis: extremity Site of cellulitis of extremity: lower extremity Laterality: right Qualified Code(s): L03.115 - Cellulitis of right lower limb (2) Anemia in chronic kidney disease (CKD) Qualifiers: Chronic kidney disease stage: on chronic dialysis Qualified Code(s): N18.6 - End stage renal disease; D63.1 - Anemia in chronic kidney disease; Z99.2 - Dependence on renal dialysis (3) Afib Qualifiers: Atrial fibrillation type: chronic Qualified Code(s): I48.2 - Chronic atrial fibrillation (7) Hypothyroidism Qualifiers: Hypothyroidism type: unspecified Qualified Code(s): E03.9 - Hypothyroidism, unspecified (8) Hypertension Qualifiers: Hypertension type: essential hypertension Qualified Code(s): I10 - Essential (primary) hypertension (9) Hyperlipidemia Qualifiers: Hyperlipidemia type: unspecified Qualified Code(s): E78.5 - Hyperlipidemia, unspecified
[2018-08-27] MEDS ORDERED: Levothyroxine Sodium 100 MCG VIAL IVP SCH (09:00)
[2018-08-27] MEDS: Folic Acid 1 MG TABLET PO SCH (09:24)
[2018-08-27] MEDS: Apixaban 5 MG TABLET PO SCH ×2 (09:25→21:35)
[2018-08-27 09:37] LABS: Basophils % 0.5 %; Eosinophils # 0.1 K/mcL (0.0-0.6); Eosinophils % 3.5 %; Hematocrit 25.6 % (35.3-44.9); Hemoglobin 8.5 g/dL (11.5-15.4); Immature Granulocytes % 0.8 % (0-4); Lymphocytes # 0.7 K/mcL (0.6-4.6); Lymphocytes % 17.9 %; Mean Corpuscular HGB Conc 33.2 g/dL (31.6-35.5); Mean Corpuscular Hemoglobin 31.3 pg (28.0-33.3); Mean Corpuscular Volume 94.1 fL (83.0-100.0); Mean Platelet Volume 10.3 fL (9.4-12.4); Monocytes # 0.3 K/mcL (0.0-1.3); Monocytes % 9.1 %; Neutrophils # 2.6 K/mcL (1.6-8.9); Nucleated Red Blood Cells 0.5 /100 WBC (0); Platelet Count 100 K/mcL (140-400); Red Blood Count 2.72 M/mcL (3.82-4.97); Segmented Neutrophils % 68.2 %
[2018-08-27 09:45] LABS: INR 2.1; Prothrombin Time 23.3 Seconds (9.4-12.1)
[2018-08-27] MEDS: Nystatin POWDER 30 GM BOTTLE TP PRN (09:50)
[2018-08-27 09:54] LABS: Calcium 6.8 mg/dL (8.6-10.3); Magnesium 1.6 mg/dL (1.6-2.6); Phosphorous 6.5 mg/dL (2.7-4.5); Potassium 3.9 mEq/L (3.5-5.1)
[2018-08-27] MEDS: Budesonide/Formoterol 160/4.5 1 PUFF INH IH SCH ×2 (10:44→19:50)
--- NOTE | 2018-08-27 11:09 | Nephrology Progress Note ---
Date of Encounter: 08/27/18 Time of Encounter: 11:07 - Assessment and Plan (1) ESRD (end stage renal disease) Current Visit: Yes Status: Chronic Current regimen is TTS at [facility]. Plan for HD tomorrow. Renal diet Renal vitamins Strict I/O Avoid nephrotoxins and renal dose all medications. (2) Anemia Current Visit: Yes Status: Chronic Hgb noted at 8.5 etiology unclear but has not been receiving EPO since missing HD sessions Status post 2 units of packed red cells. Qualifiers: Anemia type: due to chronic kidney disease Chronic kidney disease stage: on chronic dialysis Qualified Code(s): N18.6 - End stage renal disease; D63.1 - Anemia in chronic kidney disease; Z99.2 - Dependence on renal dialysis (3) Noncompliance with renal dialysis Current Visit: Yes Status: Chronic Continue to encourage compliance. Subjective Principal diagnosis: anemia Interval history: Pt seen and examined, spouse at bedside. Denies nausea, vomiting, diarrhea. Denies chest pain or shortness of breath. No acute events overnight. Objective - Vital Signs Vital signs: Vital Signs Temp Pulse Resp BP Pulse Ox 08/27/18 10:47 18 98 08/27/18 09:40 96 08/27/18 07:19 98.6 F 57 15 128/79 96 08/27/18 04:09 97.7 F 55 17 137/87 97 08/27/18 00:18 98 F 64 16 138/84 99 08/26/18 22:29 16 99 08/26/18 20:45 97.9 F 56 17 136/85 97 08/26/18 17:02 97.8 F 60 16 133/85 100 08/26/18 14:49 97.6 F 60 16 147/90 100 Intake and Output 08/26/18 08/27/18 08/27/18 23:59 07:59 15:59 Intake Total 480 / 480 Output Total 0 / 0 Balance 480 / 480 Intake: Oral 480 / 480 Output: Urine 0 / 0 Other: Meal Breakfast Percent of Meal Consumed 95% Weight 78.8 kg Blood Glucose* 108 92 Patient Weight 08/27/18 23:59 Weight 78.8 kg - General Appearance General appearance: Present: well-developed, well-nourished EENT: Present: ATNC, hearing intact, vision intact Neck: Present: supple Respiratory: Present: clear Cardiology: Present: edema (noted to left arm.), normal S1, normal S2 Dialysis Vascular Access: Arteriovenous Fistula (DRSG C/D/I) Gastrointestinal: Present: normoactive bowel sounds, no tenderness, no guarding Integumentary: Present: no rash, warm and dry Neurologic: Present: alert and oriented x3 Musculoskeletal: Present: no deformities, no erythema Psychiatric: Present: mood/affect appropriate, cooperative - Lab 08/27/18 09:07 08/27/18 09:07 Most recent lab results Calcium 6.8 mg/dL (8.6-10.3) L 08/27/18 09:07 Phosphorus 6.5 mg/dL (2.7-4.5) H 08/27/18 09:07 Magnesium 1.6 mg/dL (1.6-2.6) 08/27/18 09:07 Consult Discharge Plan - Plan Additional Instructions: 1. Follow up with Dr. Eros Felix at [facility] 2 weeks after discharge. 2. WBAT in surgical shoe right foot. 3. Apply xeroform then dry sterile dressing without MARYBETH wrap daily. Referrals: Coty Vicente MD [Primary Care Provider] -
[2018-08-27] MEDS: hydrALAZINE 25 MG TABLET PO SCH ×2 (11:23→21:35)
[2018-08-27] MEDS: cloNIDine HCl 0.1 MG TABLET PO SCH ×3 (11:23→21:35)
[2018-08-27] MEDS: Metoprolol XL (24 HR) Succ 25 MG TAB.ER.24H PO SCH (11:23)
[2018-08-27] MEDS: *HR* Amiodarone 200 MG TABLET PO SCH (11:23)
[2018-08-27 13:19] LABS: Estimated Average Glucose 97 mg/dl
--- NOTE | 2018-08-27 13:59 | Podiatry Progress Note ---
Date of Encounter: 08/27/18 Time of Encounter: 12:00 - Assessment and Plan (1) Foot pain Current Visit: Yes Status: Chronic Assessment: Fluid-filled bullae noted to right forefoot Ecchymosis noted to digits and forefoot No erythema, no edema, no streaking, no foul odor Palpable pulses, diminished WBC 3.7 Plan: Painted bullae with betadine. Covered with xeroform, 4x4 dry gauze, and kerlex. Continue local wound care daily. Nursing to change OK to d/c once ok with quality rn. Follow up in clinic with Dr. Carreon. Please make appointment prior to d/c Continue dressing changes at home. May need social service consult for home care set up. Qualifiers: Laterality: right Qualified Code(s): M79.671 - Pain in right foot (2) Cellulitis Current Visit: Yes Status: Suspected Assessment: No edema noted, no erythema noted. No calf pain with squeeze CFT <3 seconds Plan: See above Qualifiers: Site of cellulitis: extremity Site of cellulitis of extremity: lower extremity Laterality: right Qualified Code(s): L03.115 - Cellulitis of right lower limb Subjective Principal diagnosis: anemia Interval history: Patient awake in bed. Preparing to eat lunch. Alert and oriented x 3. States she is supposed to get discharged tomorrow. Denies any fevers, chills, nausea, vomiting, or diarrhea. Denies any calf pain, chest pain, or shortness of breath. Denies any overnight events. No other questions or concerns at this time. Objective - Vital Signs Vital Signs: Vital Signs Temp Pulse Resp BP Pulse Ox 08/27/18 11:06 98.5 F 61 18 119/69 98 08/27/18 10:47 18 98 08/27/18 09:40 96 08/27/18 07:19 98.6 F 57 15 128/79 96 08/27/18 04:09 97.7 F 55 17 137/87 97 08/27/18 00:18 98 F 64 16 138/84 99 08/26/18 22:29 16 99 08/26/18 20:45 97.9 F 56 17 136/85 97 08/26/18 17:02 97.8 F 60 16 133/85 100 08/26/18 14:49 97.6 F 60 16 147/90 100 Intake and Output 08/26/18 08/27/18 08/27/18 23:59 07:59 15:59 Intake Total 720 / 720 Output Total 0 / 0 Balance 720 / 720 Intake: Oral 720 / 720 Output: Urine 0 / 0 Other: Meal Lunch Percent of Meal Consumed 100% Weight 78.8 kg Blood Glucose* 108 92 120 Patient Weight 08/27/18 23:59 Weight 78.8 kg - Exam Exam: Constitiutional: Alert and oriented x 3. Well nourished. No acute distress noted Vascular: 2/4 DP/PT RLE, CFT <3 sec to all digits RLE, warm to warm from tibia to toes RLE, no calf pain with squeeze RLE Neurologic: Diminished sensation to touch, normal plantar response, Normal position sense dorsiflexion/plantar flexion Dermatologic: Bullae noted to right forefoot with fluid noted. Ecchymosis noted to digits and surrounding tissue. No erythema noted, no edema noted, no streaking, no foul odor noted. Musculoskeletal: 3/5 muscle strength and normal tone RLE - Lab Result Diagrams: 08/27/18 09:07 08/27/18 09:07 Labs: Abnormal lab results WBC 3.7 K/mcL (4.3-11.1) L 08/27/18 09:07 RBC 2.72 M/mcL (3.82-4.97) L 08/27/18 09:07 Hgb 8.5 g/dL (11.5-15.4) L 08/27/18 09:07 Hct 25.6 % (35.3-44.9) L 08/27/18 09:07 RDW 22.0 % (11.5-14.5) H 08/27/18 09:07 Plt Count 100 K/mcL (140-400) L 08/27/18 09:07 Nucleated RBCs/100 WBC 0.5 /100 WBC (0) H 08/27/18 09:07 PT 23.3 Seconds (9.4-12.1) H D 08/27/18 09:07 Carbon Dioxide 20 mEq/L (23-29) L 08/27/18 09:07 BUN 42 mg/dL (6-20) H 08/27/18 09:07 Creatinine 9.37 mg/dL (0.60-1.20) H 08/27/18 09:07 Est GFR ( Amer) 6 (> 60) L 08/27/18 09:07 Est GFR (Non-Af Amer) 5 (> 60) L 08/27/18 09:07 BUN/Creatinine Ratio 4 (6-26) L 08/27/18 09:07 Glucose 116 mg/dL (70-105) H 08/27/18 09:07 Calculated Osmolality 305 (280-300) H 08/27/18 09:07 Calcium 6.8 mg/dL (8.6-10.3) L 08/27/18 09:07 Venous Ioniz Calcium 0.81 mmol/L (1.15-1.35) L 08/26/18 09:14 Phosphorus 6.5 mg/dL (2.7-4.5) H 08/27/18 09:07 Iron 46 mcg/dL (50-170) L 08/27/18 00:08 Transferrin 117 mg/dL (203-362) L 08/27/18 00:08 Ferritin > 1500 ng/mL (10-120) H 08/27/18 00:08 Albumin 2.7 g/dL (3.5-5.7) L 08/26/18 06:12 TSH 195.710 mcIU/mL (0.340-5.600) H 08/26/18 06:12 Free T4 0.68 ng/dl (0.70-2.00) L 08/26/18 06:12 Hep Bs Antibody < 3.10 mIU/mL (10.00-) L 08/25/18 16:42 Consult Discharge Plan - Plan Additional Instructions: 1. Follow up with Dr. Eros Felix at [facility] 2 weeks after discharge. 2. WBAT in surgical shoe right foot. 3. Apply xeroform then dry sterile dressing without MARYBETH wrap daily. Referrals: Coty Vicente MD [Primary Care Provider] - Eros Carreon DPM [Partnered Physician] -
--- NOTE | 2018-08-27 14:58 | Vascular/Endovasc Consult Note ---
Date of Encounter: 08/27/18 Time of Encounter: 14:54 Assessment and Plan (1) Left arm swelling Current Visit: No Status: Chronic Patient states the left upper extremity swelling has been present for approximately 3 months. Patient has a history of multiple previous surgical interventions and has known superficial thrombophlebitis. I recommended that a venous duplex scan be performed to rule out possible deep venous involvement. Recommend patient keep left upper extremity elevated as much as possible. (2) Kidney failure Current Visit: No Status: Chronic Patient has chronic kidney failure. She status post rejection of cadaveric transplantation. She has been noncompliant with her medications and dialysis schedule. I reviewed with the patient the only surgical option at this time would be an attempt at thrombectomy of the left upper arm AV shunt. The patient is unsure as to how she would like to proceed at this time. She is going to consider her options. We will obtain the noninvasive imaging as noted elsewhere. Qualifiers: Renal failure chronicity: chronic Chronic kidney disease stage: on chronic dialysis Qualified Code(s): N18.6 - End stage renal disease; Z99.2 - Dependence on renal dialysis - History of Present Illness Consult date: 08/27/18 Consult reason: Left upper extremity swelling/end-stage renal disease Chief complaint: Left upper extremity swelling/anemia History of present illness: Ms. Alexis is a 43 year old female who was admitted with marked anemia with a hemoglobin of 6.7. Long history of renal disease. This patient had undergone a cadaveric transplant [facility] in 2007. This went on to failure and rejection. She then had a left antecubital AV fistula created at [facility] approximately 3-4 years ago. She had a series of problems associated with this access site. She underwent multiple revisions including both endovascular and open surgical revisions including insertion of a short shunt as well as stents and balloon angioplasties. This culminated in failure in the AV fistula. Vascular surgery was asked see the patient in April 2018. The venous anatomy was compromised as she is of course been using permanent hemodialysis catheters and the patient has noncompliance during a left upper arm (brachial to axillary vein AV shunt was created on May 08. I saw the patient on postoperative day #1 when the graft was functioning well but I have not seen the patient since that time. She is gone on to have further problems including sepsis requiring transfer to [facility] in June 2018. At the time of her sepsis she was found to have C. difficile and Pseudomonas positive cultures. The patient states that she has persistent left upper extremity swelling. The last venous duplex scan I can identify is from late May 2018 which shows superficial thrombophlebitis which is an old finding but no findings of acute deep venous thrombosis. The study was technically limited due to venous depth and edema. Patient has been troubled with calciphylaxis and multiple wounds though these have now healed. She also has a history of atrial fibrillation,hypertension, obesity as well as diabetes, hyperlipidemia, asthma, and hypothyroidism. Past Med Surg Social Fam HX - Past Medical History Medical history: asthma, atrial fibrillation, diabetes, dialysis, GI bleed, hyperlipidemia, hypertension, renal disease, thyroid disease Additional medical history: ANEMIA, BLEEDING ULCER,. KIDNEY DIALYSIS Psychiatric history: no psych history - Past Surgical History Surgical History: appendectomy, cholecystectomy, thyroidectomy, transplant, other Additional surgical history: KIDNEY TRANSPLANT 2007, TUBAL LIGATION, left antecubital AV fistula, multiple surgical and endovascular interventions for the left antecubital AV fistula, and placement of a left upper arm AV shunt - Social History Smoking Status: Never smoker Smokeless Tobacco Status: No Alcohol use: none Drug use: none - Family History Father Adopted: No Family Member Ethnicity: Non- Living Status: Hx Family Cardiac Disorders: Yes Hx Family Respiratory Disorders: Yes Hx Family Cancer: Yes Hx Family GI Disorders: No Hx Family Endocrine Disorder: Yes Hx Family Neuromuscular Disorders: No Hx Family Neurologic Disorders: No Hx Family HEENT Disorders: No Hx Family Autoimmune Disorders: No Mother Adopted: No Living Status: Hx Family Cardiac Disorders: Yes Hx Family Respiratory Disorders: No Hx Family Cancer: Yes Hx Family GI Disorders: No Hx Family Endocrine Disorder: No Hx Family Neuromuscular Disorders: No Hx Family Neurologic Disorders: No Hx Family HEENT Disorders: No Hx Family Autoimmune Disorders: No Medications and Allergies Albuterol Sulfate [Albuterol Inhaler] 2 puff IH Q4H PRN 09/09/16 [History] Amiodarone [Cordarone] 200 mg PO DAILY 09/09/16 [History] Atorvastatin [Lipitor] 40 mg PO HS 09/09/16 [History] Budesonide/Formoterol 160/4.5 [Symbicort 160/4.5] 2 puff IH BIDR 09/09/16 [History] Levothyroxine Sodium [Synthroid] 200 mcg PO QAM 09/09/16 [History] Omeprazole [PriLOSEC] 20 mg PO DAILY 09/09/16 [History] hydrALAZINE [HydrALAZINE] 50 mg PO BID 09/09/16 [History] Folic Acid 1 mg PO DAILY 01/07/18 [History] Metoprolol Succinate [Toprol Xl] 25 mg PO DAILY 01/07/18 [History] Darbepoetin [Aranesp] 60 mcg SQ QWEEK syringe 02/16/18 [Rx] Cinacalcet [Sensipar] 30 mg PO DAILY 30 Days #30 tablet 03/22/18 [Rx] Ondansetron ODT [Zofran ODT] 4 mg SL Q8HR PRN #12 tab.rapdis 04/05/18 [Rx] cloNIDine HCl [CloNIDine HCl] 0.1 mg PO TID 04/21/18 [History] Apixaban [Eliquis] 5 mg PO BID #60 tablet 05/09/18 [Rx] Metoclopramide [Reglan] 5 mg PO 0800,1700 #120 tablet 05/28/18 [Rx] Ondansetron [Zofran] 4 mg IVP Q6HR PRN vial 06/21/18 [Rx] Allergy/AdvReac Type Severity Reaction Status Date / Time Warfarin [From Coumadin] Allergy Anaphylaxis Verified 08/25/18 16:53 heparin AdvReac Severe Unresponsiv Verified 08/25/18 16:53 e All Systems Review: The remainder of the systems were reviewed and are negative Exam Vital Signs, Last 4 Hours Temp Pulse Resp BP Pulse Ox 08/27/18 11:06 98.5 F 61 18 119/69 98 General: Present: Conversant, No Apparent Distress, Well developed, Well nourished, Other HEENT: Present: Atraumatic (Obese), Normocephaly, Trachea midline Neck: Absent: JVD Neuro: Present: Alert and responsive, No focal deficits noted Abdomen: Present: Soft, Non-tender Vascular: Present: Normal capillary refill, Pulse, absent (Nonpalpable radial and ulnar pulses bilaterally), Pulse, normal (Palpable axillary and brachial pulses bilaterally), Edema (Patient has significant edema of the left forearm and upper arm this is nonpitting edema. It is nontender.), Color/Temperature (Her hands are warm and pink. There is symmetric perfusion and normal capillary refill. There is a small ulceration on the distal phalanx of the left third finger.), Other (Bruit is auscultated over the left upper arm AV shunt). Absent: Cyanosis Skin: Present: No rashes noted on visualized skin Consult Discharge Plan - Plan Additional Instructions: 1. Follow up with Dr. Eros Felix at [facility] 2 weeks after discharge. 2. WBAT in surgical shoe right foot. 3. Apply xeroform then dry sterile dressing without MARYBETH wrap daily. Referrals: Coty Vicente MD [Primary Care Provider] -
[2018-08-28 05:27] LABS: Hematocrit 27.1 % (35.3-44.9); Hemoglobin 8.7 g/dL (11.5-15.4); Immature Platelets 3.3 % (1.1-6.1); Mean Corpuscular HGB Conc 32.1 g/dL (31.6-35.5); Mean Corpuscular Hemoglobin 30.6 pg (28.0-33.3); Mean Corpuscular Volume 95.4 fL (83.0-100.0); Mean Platelet Volume 10.3 fL (9.4-12.4); Red Blood Count 2.84 M/mcL (3.82-4.97); Red Cell Distribution Width 21.4 % (11.5-14.5)
[2018-08-28 05:38] LABS: Calcium 6.6 mg/dL (8.6-10.3); Potassium 4.2 mEq/L (3.5-5.1)
[2018-08-28] MEDS ORDERED: 0.9 % Sodium Chloride 250 ML IVC PRN (07:10)
[2018-08-28] MEDS ORDERED: 0.9 % Sodium Chloride 1,000 ML PRIME SCH (07:15)
[2018-08-28] MEDS: Insulin LISPRO 300 UNITS/3 ML VIAL SQ SCH ×2 (07:37→11:44)
[2018-08-28] MEDS: Budesonide/Formoterol 160/4.5 1 PUFF INH IH SCH (07:37)
--- NOTE | 2018-08-28 07:40 | Internal Med Progress Note ---
Hospitalist Progress Note - Encounter Date of Encounter: 08/28/18 Time of Encounter: 11:40 - Subjective Interval History: Ms. Alexis is a 43F with PMH of ESRD on HD, Afib, HTN, HLD, hypothyroidism, asthma, and anemia. She was originally admitted on 08/25/18 after a fall in which she injured her right foot. She was found to have an anemia in the ED with Hgb o f 6.7. She was subsequently transfused 2 units pRBCs on 08/25 with appropriate response in H&H. She does have a history of chronic anemia and typically receives EPO with her HD. However she was noncompliant with her HD prior to admission. Foot x-ray revealed soft tissue swelling. LE doppler was negative for DVT. During the stay she also experienced some left upper extremity swelling near her HD fistula. Upper extremity Doppler was negative for compromise of HD fistula. Pt seen and examined while at HD today. No new or acute complaints. States the swelling in her right ankle has decreased significantly. Continues to deny fever, chills, chest pain, shortness of breath, abdominal pain, nausea, vomiting, or urinary issues. States she is having normal bowel movements. - Exam Vitals: Temp Pulse Resp BP Pulse Ox 98.2 F 59 16 107/70 95 08/28/18 07:22 08/28/18 07:22 08/28/18 07:38 08/28/18 07:22 08/28/18 07:38 Exam: Constitutional: Obese female in no acute distress Eyes: PERRL. EOMI. sclera anicteric. conjunctiva pink. Neck: supple, tachea midline Respiratory: Clear to auscultation bilaterally. No accessory muscle use, rales, rhonchi or wheezes Cardiovascular: RRR, +S1, +S2. no murmur, gallop, rubs. No chest wall tenderness GI/Abdominal : Obese, Non-tender, Non-distended, no peritoneal signs. multiple healed scars noted. Musculoskeletal: Right lower extremity swelling improved along with improved mild ecchymoses. tender right dorsal foot bullae. Left arm swelling with AV fistula, dressing in place, distal pulses intact Neurological: A&Ox3, no focal deficits. no speech difficulty or abnormality. Skin: Warm, pale, tender right dorsal foot bullae with mild ecchymosis noted, right subclavian hemodialysis catheter in place - Assessment and Plan (1) Right foot pain Current Visit: Yes Status: Acute Assessment and Plan: Suspected but less likely One week history of right foot pain s/p fall. Ultrasound was negative for DVT. Foot x-ray showed soft tissue swelling. CT foot revealed focal skin irregularity measuring approximately 9 mm in size along the dorsal aspect of the foot which may represent a small soft tissue blister. Extensive soft tissue edema of the ankle and foot with skin thickening and irregularity suggesting cellulitis. No evidence of abscess or deep soft tissue infection. Podiatry consulted, recommends one time dose of IV antibiotics and discharge on oral doxycycline. However, there is no erythema or warmth. No fevers or chills. Patient is at risk for further GI symptoms with antibiotic use given the severity of her C. difficile colitis in May requiring ICU management. Furthermore, edema improved significantly with elevation of the extremity overnight. Will continue to monitor her clinical course closely and consider administrating antibiotics if the patient begins to show signs of infection. (2) Anemia in chronic kidney disease (CKD) Current Visit: Yes Status: Chronic (3) Afib Current Visit: No Status: Chronic (4) Hyperkalemia Current Visit: Yes Status: Resolved (5) ESRD (end stage renal disease) on dialysis Current Visit: Yes Status: Chronic (6) Noncompliance with renal dialysis Current Visit: Yes Status: Chronic (7) Hypothyroidism Current Visit: Yes Status: Chronic (8) Hypertension Current Visit: Yes Status: Chronic (9) Hyperlipidemia Current Visit: Yes Status: Chronic (10) Secondary hyperparathyroidism (of renal origin) Current Visit: No Status: Chronic (11) C. difficile colitis Current Visit: Yes Status: Chronic - Time Spent with Patient Total time spent is greater than 50% in coordination of care (as documented) at patient's floor/unit and/or counseling patient: Internal Medicine: Result - Labs CBC & Chem 7: 08/28/18 05:00 08/28/18 05:00 Labs: Short CBC 08/27/18 08/28/18 Range/Units 09:07 05:00 WBC 3.7 L 4.1 L (4.3-11.1) K/mcL Hgb 8.5 L 8.7 L (11.5-15.4) g/dL Hct 25.6 L 27.1 L (35.3-44.9) % Plt Count 100 L 97 L (140-400) K/mcL Neutrophils # 2.6 (1.6-8.9) K/mcL BMP 08/27/18 08/28/18 09:07 05:00 Sodium 142 140 Potassium 3.9 4.2 Chloride 101 101 Carbon Dioxide 20 L 18 L BUN 42 H 45 H Creatinine 9.37 H 9.68 H Glucose 116 H 85 Calcium 6.8 L 6.6 L - ABG Interpretation ABG results: PT/INR, D-dimer PT 23.3 Seconds (9.4-12.1) H D 08/27/18 09:07 Consult Discharge Plan - Plan Additional Instructions: 1. Follow up with Dr. Eros Felix at [facility] 2 weeks after discharge. 2. WBAT in surgical shoe right foot. 3. Apply xeroform then dry sterile dressing without MARYBETH wrap daily. Referrals: Eros Carreon DPBala [Partnered Physician] - Coty Vicente MD [Primary Care Provider] - _ (2) Anemia in chronic kidney disease (CKD) Qualifiers: Chronic kidney disease stage: on chronic dialysis Qualified Code(s): N18.6 - End stage renal disease; D63.1 - Anemia in chronic kidney disease; Z99.2 - Dependence on renal dialysis (3) Afib Qualifiers: Atrial fibrillation type: chronic Qualified Code(s): I48.2 - Chronic atrial fibrillation (7) Hypothyroidism Qualifiers: Hypothyroidism type: unspecified Qualified Code(s): E03.9 - Hypothyroidism, unspecified (8) Hypertension Qualifiers: Hypertension type: essential hypertension Qualified Code(s): I10 - Essential (primary) hypertension (9) Hyperlipidemia Qualifiers: Hyperlipidemia type: unspecified Qualified Code(s): E78.5 - Hyperlipidemia, unspecified
[2018-08-28] MEDS: Metoprolol XL (24 HR) Succ 25 MG TAB.ER.24H PO SCH (09:48)
[2018-08-28] MEDS: *HR* Amiodarone 200 MG TABLET PO SCH (09:48)
[2018-08-28] MEDS: cloNIDine HCl 0.1 MG TABLET PO SCH ×2 (09:48→13:54)
[2018-08-28] MEDS: hydrALAZINE 25 MG TABLET PO SCH (09:48)
[2018-08-28] MEDS: Apixaban 5 MG TABLET PO SCH (09:56)
[2018-08-28] MEDS: Folic Acid 1 MG TABLET PO SCH (09:56)
[2018-08-28 11:59] VITALS: BP 153/93
--- NOTE | 2018-08-28 14:39 | Vascular/Endovas Progress Note ---
Date of Encounter: 08/28/18 Time of Encounter: 14:37 - Assessment and plan (1) Left arm swelling Current Visit: No Status: Chronic Acute DVT and left internal jugular vein and left brachial vein. 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 These findings were reviewed with the patient. The use of uninterrupted anticoagulation was emphasized to the patient as well as left upper extremity elevation. The elevation of left upper extremity should keep the wrist and elbow higher than the level of the heart and this should continue both here in the hospital and after the patient is discharged home. All questions were answered. (2) Kidney failure Current Visit: No Status: Chronic Duplex scan demonstrates patency of the left upper arm AV shunt which is consistent with the findings of bruit over the AV shunt. No intervention is recommended. It would be imperative to reduce the edema of the left upper extremity in order to allow the AV shunt to be accessed successfully for chronic hemodialysis. Qualifiers: Renal failure chronicity: chronic Chronic kidney disease stage: on chronic dialysis Qualified Code(s): N18.6 - End stage renal disease; Z99.2 - Dependence on renal dialysis - Subjective Interval history: Patient has no new complaints. Left upper extremity feels about the same as yesterday. I reviewed with the patient the finding of the left upper extremity venous duplex scan and the left upper arm AV shunt duplex scan. The venous scan demonstrates acute thrombus in the left internal jugular vein and the left brachial vein. There is chronic thrombus in the left cephalic vein. The AV shunt duplex scan demonstrates patency of the AV shunt. Vital Signs, Last 4 Hours Temp Resp BP 08/28/18 11:59 97.1 F L 18 153/93 08/28/18 11:45 138/91 08/28/18 11:30 137/92 08/28/18 11:15 130/84 08/28/18 11:00 128/93 08/28/18 10:45 117/89 - Physical Examination General: Present: Conversant, No Apparent Distress HEENT: Present: Atraumatic Vascular: Present: Edema, Color/Temperature (Left upper extremity edema is approximately same as yesterday. Color of left upper extremity is unchanged from yesterday) Results 08/28/18 05:00 08/28/18 05:00 Lab Results, Last 24 hours 08/28/18 08/28/18 05:00 05:00 WBC 4.1 L Hgb 8.7 L Hct 27.1 L Plt Count 97 L Sodium 140 Potassium 4.2 Chloride 101 Carbon Dioxide 18 L BUN 45 H Creatinine 9.68 H Glucose 85 Calcium 6.6 L - Imaging / Other Tests Non Invasive Vascular Testing: report reviewed, image reviewed Consult Discharge Plan - Plan Additional Instructions: 1. Follow up with Dr. Eros Felix at [facility] 2 weeks after discharge. 2. WBAT in surgical shoe right foot. 3. Apply xeroform then dry sterile dressing without MARYEBTH wrap daily. Referrals: Eros Carreon DPM [Partnered Physician] - Coty Vicente MD [Primary Care Provider] -
[2018-08-28] MEDS: Nystatin POWDER 30 GM BOTTLE TP PRN (15:04)
--- NOTE | 2018-08-28 16:23 | Discharge Summary ---
<EstefanyAnnie Bala - Last Filed: 08/28/18 16:30> - NOTES TO OUTPATIENT PROVIDER Notes to Outpatient Provider: Ms Alexis had missed 2 weeks of dialysis and presented with worsened renal failure and anemia. She received prbcs and epo this admission. She must follow with nephro for HD and anemia treatment. She fell onto her foot and had traumatic injury. At first it was unclear if this could be infectious process given she has a blister that formed after fall, but with ice and elevation swelling resolved as did pain. CT scan neg for fracture/dislocation or abscess. She was NOT teated with abx, she had no wbc elevation and no fever. Podiatry will see her outpatient and she would benefit from outpt MRI right foot to assess for ligament/tendon injury from fall as she has extensive bruising. TSH was 195, pharmacy confirmed no fill of synthroid for a long time. Continued onhome dose. Please check TSH in 6 weeks outpt. Orders not resulted at time of discharge: Pending orders 08/29/18 04:00 Basic Metabolic Panel AM 0400 CBC no Diff [Complete Blood Count w/o Diff] [HEME] AM 0400 08/30/18 04:00 Basic Metabolic Panel AM 0400 CBC no Diff [Complete Blood Count w/o Diff] [HEME] AM 0400 08/31/18 04:00 Basic Metabolic Panel AM 0400 CBC no Diff [Complete Blood Count w/o Diff] [HEME] AM 0400 09/01/18 04:00 Basic Metabolic Panel AM 0400 CBC no Diff [Complete Blood Count w/o Diff] [HEME] AM 0400 09/02/18 04:00 Basic Metabolic Panel AM 0400 CBC no Diff [Complete Blood Count w/o Diff] [HEME] AM 0400 Date of Encounter: 08/28/18 - Discharge Diagnosis (1) Anemia in chronic kidney disease (CKD) Status: Chronic Qualifiers: Chronic kidney disease stage: on chronic dialysis Qualified Code(s): N18.6 - End stage renal disease; D63.1 - Anemia in chronic kidney disease; Z99.2 - Dependence on renal dialysis (2) Afib Status: Chronic Qualifiers: Atrial fibrillation type: chronic Qualified Code(s): I48.2 - Chronic atrial fibrillation (3) Hyperkalemia Status: Resolved (4) ESRD (end stage renal disease) on dialysis Status: Chronic (5) Noncompliance with renal dialysis Status: Chronic (6) Hypothyroidism Status: Chronic Qualifiers: Hypothyroidism type: unspecified Qualified Code(s): E03.9 - Hypothyroidism, unspecified (7) Hypertension Status: Chronic Qualifiers: Hypertension type: essential hypertension Qualified Code(s): I10 - Essential (primary) hypertension (8) Hyperlipidemia Status: Chronic Qualifiers: Hyperlipidemia type: unspecified Qualified Code(s): E78.5 - Hyperlipidemia, unspecified (9) Secondary hyperparathyroidism (of renal origin) Status: Chronic (10) C. difficile colitis Status: Chronic (11) Right foot pain Status: Acute Hospital course: Ms. Alexis is a 43 year old female - Time Spent with Patient Total time spent providing and/or coordinating discharge services: Greater than 30 minutes (60 min) - Discharge Medications Prescriptions: Darbepoetin [Aranesp] 100 mcg SQ QWEEK 30 Days #4 mcg Levothyroxine Sodium [Synthroid] 200 mcg PO QAM 30 Days #30 tablet Nystatin POWDER [Nystop] 1 appl TP BID PRN 5 Days #1 bottle PRN Reason: Skin Irritation Home Medications: Albuterol Sulfate [Albuterol Inhaler] 2 puff IH Q4H PRN 09/09/16 [History] Amiodarone [Cordarone] 200 mg PO DAILY 09/09/16 [History] Atorvastatin [Lipitor] 40 mg PO HS 09/09/16 [History] Budesonide/Formoterol 160/4.5 [Symbicort 160/4.5] 2 puff IH BIDR 09/09/16 [History] Omeprazole [PriLOSEC] 20 mg PO DAILY 09/09/16 [History] hydrALAZINE [HydrALAZINE] 50 mg PO BID 09/09/16 [History] Folic Acid 1 mg PO DAILY 01/07/18 [History] Metoprolol Succinate [Toprol Xl] 25 mg PO DAILY 01/07/18 [History] Cinacalcet [Sensipar] 30 mg PO DAILY 30 Days #30 tablet 03/22/18 [Rx] Ondansetron ODT [Zofran ODT] 4 mg SL Q8HR PRN #12 tab.rapdis 04/05/18 [Rx] cloNIDine HCl [CloNIDine HCl] 0.1 mg PO TID 04/21/18 [History] Apixaban [Eliquis] 5 mg PO BID #60 tablet 05/09/18 [Rx] Metoclopramide [Reglan] 5 mg PO 0800,1700 #120 tablet 05/28/18 [Rx] Ondansetron [Zofran] 4 mg IVP Q6HR PRN vial 06/21/18 [Rx] Darbepoetin [Aranesp] 100 mcg SQ QWEEK 30 Days #4 mcg 08/28/18 [Rx] Levothyroxine Sodium [Synthroid] 200 mcg PO QAM 30 Days #30 tablet 08/28/18 [Rx] Nystatin POWDER [Nystop] 1 appl TP BID PRN 5 Days #1 bottle 08/28/18 [Rx] Allergies/Adverse Reactions: Allergy/AdvReac Type Severity Reaction Status Date / Time Warfarin [From Coumadin] Allergy Anaphylaxis Verified 08/25/18 16:53 heparin AdvReac Severe Unresponsiv Verified 08/25/18 16:53 e Date of admission: 08/25/18 14:40 Primary care physician: Coty Vicente MD Consults: 08/25/18 13:24 Consult to Nephrology [CONS] Stat Consulting Provider: [facility]UY/EDEL Reason for Consult: dialysis ckd Call Completed: Yes 08/25/18 15:19 Consult to Podiatry [CONS] Routine Consulting Provider: [facility] Reason for Consult: Rt foot swelling and pain Call Completed: Yes 08/25/18 16:00 Consult to Dialysis [CONS] ONCE 08/26/18 07:08 Consult to Acquisition Advisor [CONS] Routine Reason for SW Consult: discharge planning. pt has home health but not sure who it is through. Patient needs surgical shoe per podiatry reccs 08/26/18 14:24 Consult to Vascular Surgery [CONS] Routine Consulting Provider: [facility] Reason for Consult: problem with LUE dialysis graft, arm swelling Time Notified: 14:24 Call Completed: Yes PT [Consult to Physical Therapy] [CONS] Routine Comment: Evaluate, develop and implement POC Reason for Consult: right foot pain s/p fall is causing amb dysfunction, please assess for mobility needs Does patient have active BEDREST order?: No Is patient medically & hemodynamically stable?: Yes Patient assessed for mobility or mobilized this visit?: Yes 08/27/18 09:36 Consult to Nurse Navigator [CONS] Routine Comment: hd 08/28/18 07:15 Consult to Dialysis [CONS] ONCE - Constitutional Vitals: Temp Pulse Resp BP Pulse Ox 97.1 F L 59 18 153/93 95 08/28/18 11:59 08/28/18 07:22 08/28/18 11:59 08/28/18 11:59 08/28/18 07:38 - Patient Status Disposition: Home Health Service Condition: Good Overall status at discharge: patient is back to baseline - Discharge Instructions Instructions: Levothyroxine (By mouth), Nystatin (On the skin), Darbepoetin Bhaskar (Injection), Hemodialysis (GEN) Follow Up With: Eros Carreon DPM [Partnered Physician] - 09/12/18 8:15 am Coty Vicente MD [Primary Care Provider] - (Left message for office to call patient) Mei Chowdary MD [Partnered Physician] - (hypothyroidism) Additional Instructions: 1. Follow up with Dr. Eros Felix at [facility] 2 weeks after discharge. 2. WBAT in surgical shoe right foot. 3. Apply xeroform then dry sterile dressing without MARYBETH wrap daily. GO TO DIALYSIS SCHEDULED TO AVOID READMISSION - Diet and Activity Activity: as per physical therapy Diet: other (RENAL, DIABETIC, CARDIAC) - Attending Attestation I examined this patient and my medical decision-making was reviewed with the Resident Physician Dr Lagunas. I agree with the documented findings, disposition and treatment plan as described except to the extent set forth below. Ms Reuben is admitted for acute on chronic anemia as identified at outpt HD She has missed 2 weeks of HD and has worsened ESRD 2/2 to this awake, in HD, pleasant. she has no complaints and feels back to baseline. no presyncope, sob, fatigue, or chest pain. very much wants to dc to home as feeling great. right foot pain resolved with ice elevation and reduction in swelling, no fevers or chills. gen- alert, awake,appears stated age cv- reg rate and rhythm, normal s1,s2, no murmurs appreciated,no pitting edema bl LE, no edema of feet lungs- ctabl, no wheezing, rhonchi or crackles, normal resp effort on ra msk- right foot dorsum and RLE without edema, persistent ecchymosis, no pain with rom skin- blister dorsum right foot, filled with clear fluid, ecchymosis as noted above, no RLE /foot erythmea or increased warmth neuro- AAOx3, CN grossly intact, no focal deficits Acute on Chronic anemia with hx anemia of chronic disease, JORGE- has missed HD with epo for weeks, denied active bleeding, s/p 2 units prbc with appropriate response, and increased epo dose as per nephro- stable hgb -02/2018 and 04/2018 cscope and egd for anemia which had no remarkable findings -epo as per nephro upon dc -outpt fu and pcp/nephro for further monitoring ESRD- HD as per nephro, FU OUTPT Acute DVT and left internal jugular vein and left brachial vein on US LUE obtained by Vasc Surg who preformed her AV shunt - cont AC Right Foot Pain- s/p fall- appears to be traumatic injury that resulted in edema and subsequent blister at top of foot, no s/s of infectious process on exam or labs, doppler US 08/24 and no dvt, CT showed blister and soft tissue edema, clinically this does not appear infected, will need to cont to monitor outpatient however as if blister bursts and she has open wound I would consider her at risk for infection at that time -would benefit from outpt MRI -appreciate podiatry recs- given severity of cdiff in june and no wbc elevation or fever as well as improvement with ice/elevationshe did not require abx at this admission--she will fu with Dr Nance outpt -conservative tx with ice/rest/prn pain control Hypothyroidism, tsh 195, low t4- 2/2 noncompliance with home med as confirmed by pharmacy (no fill in months)-cont onhome synthroid dose, rx on dc, PCP to check outpt tsh check in 4-6 weeks, endo outpt further diagnoses and plan as noted by resident as our team d/w Dr Kirk and Nephro she may dc to home with outpt fu as she is stable (and threatening to leave AMA after HD) resume HHC on dc time spent on dc 60 min <Stephen Lagunas - Last Filed: 08/28/18 19:28> Orders not resulted at time of discharge: Pending orders 08/29/18 04:00 Basic Metabolic Panel AM 040 CBC no Diff [Complete Blood Count w/o Diff] [HEME] AM 04008/30/18 04:00 Basic Metabolic Panel AM 040 CBC no Diff [Complete Blood Count w/o Diff] [HEME] AM 04008/31/18 04:00 Basic Metabolic Panel AM 040 CBC no Diff [Complete Blood Count w/o Diff] [HEME] AM 04009/01/18 04:00 Basic Metabolic Panel AM 040 CBC no Diff [Complete Blood Count w/o Diff] [HEME] AM 04009/02/18 04:00 Basic Metabolic Panel AM 040 CBC no Diff [Complete Blood Count w/o Diff] [HEME] AM 040 Date of Encounter: 08/28/18 Time of Encounter: 11:45 - Discharge Diagnosis (1) Right foot pain Priority: Primary Status: Resolved Assessment and Plan: One week history of right foot pain s/p fall. Ultrasound was negative for DVT. Foot x-ray showed soft tissue swelling. CT foot revealed focal skin irregularity measuring approximately 9 mm in size along the dorsal aspect of the foot which may represent a small soft tissue blister. Extensive soft tissue edema of the ankle and foot with skin thickening and irregularity suggesting cellulitis. No evidence of abscess or deep soft tissue infection. Podiatry consulted, recommends one time dose of IV antibiotics and discharge on oral doxycycline. However, there is no erythema or warmth. No fevers or chills. Patient is at risk for further GI symptoms with antibiotic use given the severity of her C. difficile colitis in May requiring ICU management. Furthermore, edema improved significantly with elevation of the extremity x2 days. Recommended outpatient follow up with podiatry (2) Anemia in chronic kidney disease (CKD) Priority: Secondary Status: Acute Assessment and Plan: Hemoglobin level has improved after 2 units PRBC transfusion on 08/25/18 EGD on 04/26/18 revealed gastritis, mild Schatzki's ring, 2 cm hiatal hernia Colonoscopy on 02/14/18 revealed diverticulosis in the sigmoid colon Resume home folic acid Patient is on Aranesp as an outpatient, defer further dosing to nephrology Continue on discharge Qualifiers: Chronic kidney disease stage: on chronic dialysis Qualified Code(s): N18.6 - End stage renal disease; D63.1 - Anemia in chronic kidney disease; Z99.2 - Dependence on renal dialysis (3) Afib Priority: Secondary Status: Chronic Assessment and Plan: Continue Amiodarone PO Continue Eliquis for anticoagulation. Qualifiers: Atrial fibrillation type: chronic Qualified Code(s): I48.2 - Chronic atrial fibrillation (4) Hyperkalemia Priority: Secondary Status: Resolved Assessment and Plan: Likely related to noncompliance with hemodialysis EKG with ME prolongation. Sinus rhythm. Resolved with hemodialysis. (5) ESRD (end stage renal disease) on dialysis Priority: Secondary Status: Chronic Assessment and Plan: Patient completed hemodialysis on Monday08/25/18 Right subclavian temporary hemodialysis catheter in place. Vascular surgeon consulted due to complication with left upper extremity graft and patient's noncompliance with outpatient follow-up. Fistula remains patent per UE doppler. Continue HD on discharge and follow up with Nephrology (6) Noncompliance with renal dialysis Priority: Secondary Status: Chronic Assessment and Plan: She has been noncompliant with her dialysis in her past. She has not had dialysis for past 2 weeks prior to arrival. Pt also complaining of left upper extremity swelling for approximately 3 months. Vascular surgery evaluated pt for HD fistula management. Per Dr Kirk's recs, a venous duplex scan was ordered to rule out possible deep venous involvement. UE doppler revealed patent fistula . Strongly encouraged pt to continue HD as outpatient to avoid future admissions (7) Hypothyroidism Priority: Secondary Status: Chronic Assessment and Plan: TSH level was 17.463 on 06/24/18 Repeat TSH level 195.710 and free T4 level 0.68 Continue Synthroid 200mcg daily. Originally pt stated she had been taking synthroid at home, however upon review of prescription refills with the pharmacy it was discovered that the pt was non-compliant with this home regimen Cancelled thyroid ultrasound upon discovery that pt was not taking home synthroid Patient has a new visit appointment scheduled with [facility] on 10/01/18 Qualifiers: Hypothyroidism type: unspecified Qualified Code(s): E03.9 - Hypothyroidism, unspecified (8) Hypertension Priority: Secondary Status: Chronic Assessment and Plan: Continue home meds. Qualifiers: Hypertension type: essential hypertension Qualified Code(s): I10 - Essential (primary) hypertension (9) Hyperlipidemia Priority: Secondary Status: Chronic Assessment and Plan: Continue home meds. Qualifiers: Hyperlipidemia type: unspecified Qualified Code(s): E78.5 - Hyperlipidemia, unspecified (10) Secondary hyperparathyroidism (of renal origin) Priority: Secondary Status: Chronic Assessment and Plan: Hypocalcemia due to secondary hyperparathyroidism Albumin 2.7, corrected calcium 8.4, and Ionized calcium levels 0.81 Continue home meds Patient has a new visit appointment scheduled with [facility] on 10/01/18 (11) C. difficile colitis Priority: Secondary Status: Chronic Assessment and Plan: Patient had long-standing hospital stay and life-threatening illness with septic shock in June from C. difficile and Pseudomonas and Acinetobacter bacteremia which required ICU admission and transfer to [facility] for further care. Hospital course: Ms. Alexis is a 43F with PMH of ESRD on HD, Afib, HTN, HLD, hypothyroidism, asthma, and anemia. She was originally admitted on 08/25/18 after a fall in which she injured her right foot. She was found to have an anemia in the ED with Hgb of 6.7. She was subsequently transfused 2 units pRBCs on 08/25 with appropriate response in H&H. Anemia was stable throughout the remaining duration of admission. Recommend continuing EPO treatments with HD on discharge. She does have a history of chronic anemia and typically receives EPO with her HD. However she was noncompliant with her HD prior to admission. Foot x-ray revealed soft tissue swelling. LE doppler was negative for DVT. During the stay she also experienced some left upper extremity swelling near her HD fistula. Upper extremity Doppler was negative for compromise of HD fistula. Pt was also noted to be significantly hypothryroid during admission with TSH of 17.463 on 08/25/17. Repeat TSH level was 195.710 and free T4 level was 0.68. Originally pt stated she had been taking synthroid at home, however upon review of prescription refills with the pharmacy it was discovered that the pt was non-compliant with this home regimen. Pt was given prescription for Synthroid 200mcg daily on discharge. Appointment was scheduled with [facility] for 10/01/18. Discharge discussed with: patient, nurse - Time Spent with Patient Total time spent providing and/or coordinating discharge services: Date of admission: 08/25/18 14:40 Primary care physician: Coty Vicente MD Consults: 08/25/18 13:24 Consult to Nephrology [CONS] Stat Consulting Provider: [facility]/THUY/EDEL Reason for Consult: dialysis ckd Call Completed: Yes 08/25/18 15:19 Consult to Podiatry [CONS] Routine Consulting Provider: [facility] Reason for Consult: Rt foot swelling and pain Call Completed: Yes 08/25/18 16:00 Consult to Dialysis [CONS] ONCE 08/26/18 07:08 Consult to Acquisition Advisor [CONS] Routine Reason for SW Consult: discharge planning. pt has home health but not sure who it is through. Patient needs surgical shoe per podiatry reccs 08/26/18 14:24 Consult to Vascular Surgery [CONS] Routine Consulting Provider: [facility] Reason for Consult: problem with LUE dialysis graft, arm swelling Time Notified: 14:24 Call Completed: Yes PT [Consult to Physical Therapy] [CONS] Routine Comment: Evaluate, develop and implement POC Reason for Consult: right foot pain s/p fall is causing amb dysfunction, please assess for mobility needs Does patient have active BEDREST order?: No Is patient medically & hemodynamically stable?: Yes Patient assessed for mobility or mobilized this visit?: Yes 08/27/18 09:36 Consult to Nurse Navigator [CONS] Routine Comment: hd 08/28/18 07:15 Consult to Dialysis [CONS] ONCE Discharging clinician: Stephen Lagunas - Constitutional Vitals: Temp Pulse Resp BP Pulse Ox 97.1 F L 59 18 153/93 95 08/28/18 11:59 08/28/18 07:22 08/28/18 11:59 08/28/18 11:59 08/28/18 07:38 General appearance: Present: A&O X 3, no acute distress, obese, answers questions appropriately Exam: Constitutional: Obese female in no acute distress Eyes: PERRL. EOMI. sclera anicteric. conjunctiva pink. Neck: supple, tachea midline Respiratory: Clear to auscultation bilaterally. No accessory muscle use, rales, rhonchi or wheezes Cardiovascular: RRR, +S1, +S2. no murmur, gallop, rubs. No chest wall tenderness GI/Abdominal : Obese, Non-tender, Non-distended, no peritoneal signs. multiple healed scars noted. Musculoskeletal: Right lower extremity swelling improved along with improved mild ecchymoses. tender right dorsal foot bullae. Left arm swelling with AV fistula, dressing in place, distal pulses intact Neurological: A&Ox3, no focal deficits. no speech difficulty or abnormality. Skin: Warm, pale, tender right dorsal foot bullae with mild ecchymosis noted, right subclavian hemodialysis catheter in place - Patient Status Overall status at discharge: patient is back to baseline - Diet and Activity Activity: as per physical therapy Diet: other
--- NOTE | 2018-08-28 16:53 | Physician Discharge Referral ---
Home Health/Hosp Referral Info Transfer to: Home Health Provider in Charge Post Discharge: PCP - Diagnosis (1) Anemia in chronic kidney disease (CKD) Priority: Primary Status: Acute (2) Afib Priority: Secondary Status: Chronic (3) Hyperkalemia Priority: Secondary Status: Resolved (4) ESRD (end stage renal disease) on dialysis Priority: Secondary Status: Chronic (5) Noncompliance with renal dialysis Priority: Secondary Status: Chronic (6) Hypothyroidism Priority: Secondary Status: Chronic (7) Hypertension Priority: Secondary Status: Chronic (8) Hyperlipidemia Priority: Secondary Status: Chronic (9) Secondary hyperparathyroidism (of renal origin) Priority: Secondary Status: Chronic (10) Right foot pain Priority: Secondary Status: Resolved - Respiratory Orders None Smoking Cessation: Smoking cessation has been advised. For more information, call the [employer] Quit Line at 4-785-FZQU-NOW. - Diet/Nutrition Diet/Nutrition Orders: Renal, Cardiac, No Concentrated Sweets - Activity Activity Orders: Up ad teodoro - Services Needed Following services are medically necessary services: Nursing, Home Health Aide, Physical Therapy, Occupational Therapy - Transfer Medications Prescriptions: Darbepoetin [Aranesp] 100 mcg SQ QWEEK 30 Days #4 mcg Levothyroxine Sodium [Synthroid] 200 mcg PO QAM 30 Days #30 tablet Nystatin POWDER [Nystop] 1 appl TP BID PRN 5 Days #1 bottle PRN Reason: Skin Irritation Home Medications: Albuterol Sulfate [Albuterol Inhaler] 2 puff IH Q4H PRN 09/09/16 [History] Amiodarone [Cordarone] 200 mg PO DAILY 09/09/16 [History] Atorvastatin [Lipitor] 40 mg PO HS 09/09/16 [History] Budesonide/Formoterol 160/4.5 [Symbicort 160/4.5] 2 puff IH BIDR 09/09/16 [History] Omeprazole [PriLOSEC] 20 mg PO DAILY 09/09/16 [History] hydrALAZINE [HydrALAZINE] 50 mg PO BID 09/09/16 [History] Folic Acid 1 mg PO DAILY 01/07/18 [History] Metoprolol Succinate [Toprol Xl] 25 mg PO DAILY 01/07/18 [History] Cinacalcet [Sensipar] 30 mg PO DAILY 30 Days #30 tablet 03/22/18 [Rx] Ondansetron ODT [Zofran ODT] 4 mg SL Q8HR PRN #12 tab.rapdis 04/05/18 [Rx] cloNIDine HCl [CloNIDine HCl] 0.1 mg PO TID 04/21/18 [History] Apixaban [Eliquis] 5 mg PO BID #60 tablet 05/09/18 [Rx] Metoclopramide [Reglan] 5 mg PO 0800,1700 #120 tablet 05/28/18 [Rx] Ondansetron [Zofran] 4 mg IVP Q6HR PRN vial 06/21/18 [Rx] Darbepoetin [Aranesp] 100 mcg SQ QWEEK 30 Days #4 mcg 08/28/18 [Rx] Levothyroxine Sodium [Synthroid] 200 mcg PO QAM 30 Days #30 tablet 08/28/18 [Rx] Nystatin POWDER [Nystop] 1 appl TP BID PRN 5 Days #1 bottle 08/28/18 [Rx] Allergies/Adverse Reactions: Allergy/AdvReac Type Severity Reaction Status Date / Time Warfarin [From Coumadin] Allergy Anaphylaxis Verified 08/25/18 16:53 heparin AdvReac Severe Unresponsiv Verified 08/25/18 16:53 e Certification: Further, I certify that my clinical findings support that this patient is homebound (i.e. absences from home require considerable and taxing effort and are for medical reasons or scientologist services or infrequently or short duration when for other reasons) because: Homebound Reason: Patient requires assistance of a person or device to safely leave home, Leaving home requires considerable and taxing effort due to condition Attestation: My signature below is to certify that this patient is under my care and that I, or nurse practitioner, or a physician's carpenter assistant working with me, has a [id number] encounter with this patient.
--- NOTE | 2018-08-28 17:30 | Electrocardiograph Report ---
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
== END 2018-08-28 17:46 | disposition home health service (06) | DRG 470 ==
LOC: EMEROOARM 11:58 → SUATTDRO 14:40 → 2ANU 14:40
PROVIDERS: ADMIT Internal Medicine; ATTEND Internal Medicine

== ENCOUNTER 2018-10-05 17:04 | Observation (INO) ==
--- NOTE | 2018-10-05 19:40 | Emergency Department Note ---
Disposition Clinical Impression: Shortness of breath Acute on chronic kidney failure Qualifiers: Acute renal failure type: unspecified Chronic kidney disease stage: on chronic dialysis Qualified Code(s): N17.9 - Acute kidney failure, unspecified; N18.9 - Chronic kidney disease, unspecified; Z99.2 - Dependence on renal dialysis Disposition: Admitted As Inpatient Condition: Good Forms: ED Satisfaction Letter Time of Disposition: 21:19 General Adult HPI - General Chief complaint: ED Shortness of Breath/Dyspnea Stated complaint: LUCILLE Time Seen by Provider: 10/05/18 19:16 Source: patient Mode of arrival: ambulatory Limitations: no limitations Nursing Notes Reviewed: Yes Vital Signs Reviewed: Yes - History of Present Illness HPI Narrative: Patient is a 43-year-old female that presents emergency department with shortness of breath. Patient states that this is been ongoing for the past few days. Patient states that she was told that she had fluid on her lungs and was discharged home. Patient denies any sputum production but states that she does occasionally have a cough. Patient has any chest pain. Patient denies any fevers. Patient denies any abdominal pain. Patient denies any urinary symptoms. Patient states that she is a dialysis patient dialyzes Monday, and Monday. Patient states that she did miss her last dialysis session on which was yesterday. Patient states that she did not have a ride. Patient states that she is concerned that she does not have a ride for dialysis tomorrow. Pain Scale: 0 - Related Data Home Medications Medication Instructions Recorded Confirmed Albuterol Sulfate [Albuterol 2 puff IH Q4H PRN 09/09/16 08/25/18 Inhaler] Amiodarone [Cordarone] 200 mg PO DAILY 09/09/16 08/25/18 Atorvastatin [Lipitor] 40 mg PO HS 09/09/16 08/25/18 Budesonide/Formoterol 160/4.5 2 puff IH BIDR 09/09/16 08/25/18 [Symbicort 160/4.5] Omeprazole [PriLOSEC] 20 mg PO DAILY 09/09/16 08/25/18 hydrALAZINE [HydrALAZINE] 50 mg PO BID 09/09/16 08/25/18 Folic Acid 1 mg PO DAILY 01/07/18 08/25/18 Metoprolol Succinate [Toprol Xl] 25 mg PO DAILY 01/07/18 08/25/18 cloNIDine HCl [CloNIDine HCl] 0.1 mg PO TID 04/21/18 08/25/18 Previous Rx's Medication Instructions Recorded Cinacalcet [Sensipar] 30 mg PO DAILY 30 Days #30 tablet 03/22/18 Ondansetron ODT [Zofran ODT] 4 mg SL Q8HR PRN #12 tab.rapdis 04/05/18 Apixaban [Eliquis] 5 mg PO BID #60 tablet 05/09/18 Metoclopramide [Reglan] 5 mg PO 0800,1700 #120 tablet 05/28/18 Ondansetron [Zofran] 4 mg IVP Q6HR PRN vial 06/21/18 Amoxicillin/Clavulanate [Augmentin] 500 mg PO QID #7 tablet 09/29/18 Doxycycline 100 mg PO BID #14 capsule 09/29/18 Nystatin Cream [Mycostatin Cream] 1 appl TP TID #1 tube 09/29/18 Ondansetron ODT [Zofran ODT] 4 mg SL Q8HR #10 tab.rapdis 10/03/18 cephALEXin [Keflex] 500 mg PO BID #14 capsule 10/03/18 Allergies Allergy/AdvReac Type Severity Reaction Status Date / Time Warfarin [From Coumadin] Allergy Anaphylaxis Verified 09/28/18 20:58 heparin AdvReac Severe Unresponsiv Verified 09/28/18 20:58 e All systems ED: reviewed and negative except as stated. 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 Absent: respiratory distress, wheezes - Cardiovascular Cardiovascular exam: Present: regular rate, normal rhythm, normal heart sounds, +S1, +S2 - Abdominal Exam Abdominal exam: Present: soft, Non-Tender, normal bowel sounds - Neurological Exam Neurological exam: Present: alert, oriented X3 - Psychiatric Psychiatric exam: Present: normal affect, normal mood - Skin Skin exam: Present: warm, dry, other (Patient has ulceration to the dorsal aspect of the right foot. There is some mild swelling to the right lower extremity. Patient states that this is chronic for her and is not new.) Course Vital Signs Temperature 98.1 F 10/05/18 17:34 Pulse Rate 74 10/05/18 17:34 Respiratory Rate 18 10/05/18 17:34 Blood Pressure 159/108 10/05/18 17:34 O2 Sat by Pulse Oximetry 100 10/05/18 17:34 Temperature 98.1 F 10/05/18 17:34 Pulse Rate 74 10/05/18 17:34 Respiratory Rate 18 10/05/18 17:34 Blood Pressure 159/108 10/05/18 17:34 O2 Sat by Pulse Oximetry 100 10/05/18 17:34 Oxygen Delivery Oxygen Delivery Room Air Medical Decision Making - [facility] Narrative Medical decision making narrative: Due to the patient is not emergency Department with reports of shortness of breath we will obtain basic laboratory testing as well as chest x-ray and EKG. It was reported from nursing staff the lab I called and her blood cultures from 2 days ago were positive. We will obtain a lactic acid and repeat blood cultures. I try to call and confirm with lab that the cultures were positive for that they were not able to confirm this. Patient will be admitted to the hospital due to having worsening of her baseline kidney function. She is a chronic dialysis patient and missed dialysis yesterday. Her creatinine is elevated above her baseline and does not feel that she will be able to make her dialysis session tomorrow. I called spoke the admitting hospitalist Dr. Arndt and he is except the patient to their service. Patient admitted last visit for further evaluation and management. Due to the patient having normal vital signs and does not have an elevated white count we will not start antibiotics this time. Once blood cultures have been confirmed as positive antibiotics will be started if necessary. - Medical Records Medical records reviewed: Yes I reviewed the patient's medical records. - Lab Data Lab results reviewed: Yes I reviewed the patient's lab results. Result diagrams: 10/05/18 19:28 10/05/18 19:28 Lab Results 10/05/18 10/05/18 10/05/18 Range/Units 19:28 19:28 20:23 WBC 4.3 (4.3-11.1) K/mcL RBC 3.05 L (3.82-4.97) M/mcL Hgb 9.7 L (11.5-15.4) g/dL Hct 30.8 L (35.3-44.9) % MCV 101.0 H (83.0-100.0) fL MCH 31.8 (28.0-33.3) pg MCHC 31.5 L (31.6-35.5) g/dL RDW 18.4 H (11.5-14.5) % Plt Count 163 (140-400) K/mcL MPV 10.5 (9.4-12.4) fL Immature Gran % 0.2 (0-4) % Seg Neutrophils % 49.9 % Lymphocytes % 29.4 % Monocytes % 11.8 % Eosinophils % 7.8 % Basophils % 0.9 % Neutrophils # 2.1 (1.6-8.9) K/mcL Lymphocytes # 1.3 (0.6-4.6) K/mcL Monocytes # 0.5 (0.0-1.3) K/mcL Eosinophils # 0.3 (0.0-0.6) K/mcL Basophils # 0.0 (0.0-0.2) K/mcL Sodium 139 (136-145) mEq/L Potassium 3.8 (3.5-5.1) mEq/L Chloride 102 (98-107) mEq/L Carbon Dioxide 24 (23-29) mEq/L BUN 13 (6-20) mg/dL Creatinine 5.75 H (0.60-1.20) mg/dL Est GFR ( Amer) 10 L (> 60) Est GFR (Non-Af Amer) 8 L (> 60) BUN/Creatinine Ratio 2 L (6-26) Glucose 60 L (70-105) mg/dL Calculated Osmolality 286 (280-300) Lactic Acid 1.8 (0.5-2.2) mmol/L Calcium 8.5 L (8.6-10.3) mg/dL Troponin I < 0.03 (< 0.04) ng/mL - Radiology Data Radiology results reviewed: Yes I reviewed the patient's radiology results. Chest X-Ray 10/05/18 17:38 IMPRESSION: Bibasilar airspace disease, greater on the left, atelectasis versus edema. D/ / Frankie Carlin MD / Frankie Carlin MD Interpreting Provider: Frankie Carlin MD - EKG Data EKG #1 EKG attestation: Yes I reviewed and interpreted this EKG. EKG results narrative: EKG shows sinus rhythm at a rate of 77 bpm, AL interval 185, QRS duration 96, QTc of 444. No evidence of STEMI on EKG. This is compared to previous EKG on 10/03/18.
[2018-10-05 19:44] LABS: Basophils % 0.9 %; Eosinophils # 0.3 K/mcL (0.0-0.6); Eosinophils % 7.8 %; Hematocrit 30.8 % (35.3-44.9); Hemoglobin 9.7 g/dL (11.5-15.4); Immature Granulocytes % 0.2 % (0-4); Lymphocytes # 1.3 K/mcL (0.6-4.6); Lymphocytes % 29.4 %; Mean Corpuscular HGB Conc 31.5 g/dL (31.6-35.5); Mean Corpuscular Hemoglobin 31.8 pg (28.0-33.3); Mean Platelet Volume 10.5 fL (9.4-12.4); Monocytes # 0.5 K/mcL (0.0-1.3); Monocytes % 11.8 %; Neutrophils # 2.1 K/mcL (1.6-8.9); Platelet Count 163 K/mcL (140-400); Red Blood Count 3.05 M/mcL (3.82-4.97); Red Cell Distribution Width 18.4 % (11.5-14.5); Segmented Neutrophils % 49.9 %
[2018-10-05 20:05] LABS: BUN/Creatinine Ratio 2 (6-26); Blood Urea Nitrogen 13 mg/dL (6-20); Calcium 8.5 mg/dL (8.6-10.3); Carbon Dioxide 24 mEq/L (23-29); Chloride 102 mEq/L (98-107); Glucose 60 mg/dL (70-105); Osmolality,Calculated 286 (280-300); Potassium 3.8 mEq/L (3.5-5.1); Sodium 139 mEq/L (136-145); Troponin I < 0.03 ng/mL (< 0.04); eGFR For Non-African Americans 8 (> 60)
--- NOTE | 2018-10-05 21:27 | Emergency Department Note ---
Disposition Clinical Impression: Shortness of breath Acute on chronic kidney failure Qualifiers: Acute renal failure type: unspecified Chronic kidney disease stage: on chronic dialysis Qualified Code(s): N17.9 - Acute kidney failure, unspecified Disposition: Admitted As Inpatient Condition: Good Forms: ED Satisfaction Letter General Adult HPI - General Chief complaint: ED Shortness of Breath/Dyspnea Stated complaint: LUCILLE Time Seen by Provider: 10/05/18 19:16 Source: patient Mode of arrival: ambulatory Limitations: no limitations Nursing Notes Reviewed: Yes Vital Signs Reviewed: Yes - History of Present Illness Pain Scale: 0 - Related Data Home Medications Medication Instructions Recorded Confirmed Albuterol Sulfate [Albuterol 2 puff IH Q4H PRN 09/09/16 08/25/18 Inhaler] Amiodarone [Cordarone] 200 mg PO DAILY 09/09/16 08/25/18 Atorvastatin [Lipitor] 40 mg PO HS 09/09/16 08/25/18 Budesonide/Formoterol 160/4.5 2 puff IH BIDR 09/09/16 08/25/18 [Symbicort 160/4.5] Omeprazole [PriLOSEC] 20 mg PO DAILY 09/09/16 08/25/18 hydrALAZINE [HydrALAZINE] 50 mg PO BID 09/09/16 08/25/18 Folic Acid 1 mg PO DAILY 01/07/18 08/25/18 Metoprolol Succinate [Toprol Xl] 25 mg PO DAILY 01/07/18 08/25/18 cloNIDine HCl [CloNIDine HCl] 0.1 mg PO TID 04/21/18 08/25/18 Previous Rx's Medication Instructions Recorded Cinacalcet [Sensipar] 30 mg PO DAILY 30 Days #30 tablet 03/22/18 Ondansetron ODT [Zofran ODT] 4 mg SL Q8HR PRN #12 tab.rapdis 04/05/18 Apixaban [Eliquis] 5 mg PO BID #60 tablet 05/09/18 Metoclopramide [Reglan] 5 mg PO 0800,1700 #120 tablet 05/28/18 Ondansetron [Zofran] 4 mg IVP Q6HR PRN vial 06/21/18 Amoxicillin/Clavulanate [Augmentin] 500 mg PO QID #7 tablet 09/29/18 Doxycycline 100 mg PO BID #14 capsule 09/29/18 Nystatin Cream [Mycostatin Cream] 1 appl TP TID #1 tube 09/29/18 Ondansetron ODT [Zofran ODT] 4 mg SL Q8HR #10 tab.rapdis 10/03/18 cephALEXin [Keflex] 500 mg PO BID #14 capsule 10/03/18 Allergies Allergy/AdvReac Type Severity Reaction Status Date / Time Warfarin [From Coumadin] Allergy Anaphylaxis Verified 09/28/18 20:58 heparin AdvReac Severe Unresponsiv Verified 09/28/18 20:58 e Constitutional: Denies: fever Cardiovascular: Denies: chest pain Respiratory: Reports: dyspnea Gastrointestinal: Denies: abdominal pain, nausea Genitourinary: Denies: urgency, dysuria, frequency Past Medical History - Past Medical History Medical history: Reports: asthma, atrial fibrillation, diabetes, dialysis, GI bleed, hyperlipidemia, hypertension, renal disease, thyroid disease Surgical history: Reports: appendectomy, cholecystectomy, thyroidectomy, transplant, other Psychiatric history: Reports: no psych 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 - Social History Smoking Status: Never smoker Smokeless Tobacco Status: No Alcohol use: Reports: none Drug use: Reports: none Physical Exam - General Limitations: no limitations General appearance: alert, in no apparent distress Course Vital Signs Temperature 98.1 F 10/05/18 17:34 Pulse Rate 74 10/05/18 17:34 Respiratory Rate 18 10/05/18 17:34 Blood Pressure 159/108 10/05/18 17:34 O2 Sat by Pulse Oximetry 100 10/05/18 17:34 Temperature 98.1 F 10/05/18 17:34 Pulse Rate 74 10/05/18 17:34 Respiratory Rate 18 10/05/18 17:34 Blood Pressure 159/108 10/05/18 17:34 O2 Sat by Pulse Oximetry 100 10/05/18 17:34 Oxygen Delivery Oxygen Delivery Room Air Medical Decision Making - Medical Records Medical records reviewed: Yes I reviewed the patient's medical records. - Lab Data Lab results reviewed: Yes I reviewed the patient's lab results. Result diagrams: 10/05/18 19:28 10/05/18 19:28 Lab Results 10/05/18 10/05/18 10/05/18 Range/Units 19:28 19:28 20:23 WBC 4.3 (4.3-11.1) K/mcL RBC 3.05 L (3.82-4.97) M/mcL Hgb 9.7 L (11.5-15.4) g/dL Hct 30.8 L (35.3-44.9) % MCV 101.0 H (83.0-100.0) fL MCH 31.8 (28.0-33.3) pg MCHC 31.5 L (31.6-35.5) g/dL RDW 18.4 H (11.5-14.5) % Plt Count 163 (140-400) K/mcL MPV 10.5 (9.4-12.4) fL Immature Gran % 0.2 (0-4) % Seg Neutrophils % 49.9 % Lymphocytes % 29.4 % Monocytes % 11.8 % Eosinophils % 7.8 % Basophils % 0.9 % Neutrophils # 2.1 (1.6-8.9) K/mcL Lymphocytes # 1.3 (0.6-4.6) K/mcL Monocytes # 0.5 (0.0-1.3) K/mcL Eosinophils # 0.3 (0.0-0.6) K/mcL Basophils # 0.0 (0.0-0.2) K/mcL Sodium 139 (136-145) mEq/L Potassium 3.8 (3.5-5.1) mEq/L Chloride 102 (98-107) mEq/L Carbon Dioxide 24 (23-29) mEq/L BUN 13 (6-20) mg/dL Creatinine 5.75 H (0.60-1.20) mg/dL Est GFR ( Amer) 10 L (> 60) Est GFR (Non-Af Amer) 8 L (> 60) BUN/Creatinine Ratio 2 L (6-26) Glucose 60 L (70-105) mg/dL Calculated Osmolality 286 (280-300) Lactic Acid 1.8 (0.5-2.2) mmol/L Calcium 8.5 L (8.6-10.3) mg/dL Troponin I < 0.03 (< 0.04) ng/mL - Radiology Data Radiology results reviewed: Yes I reviewed the patient's radiology results. Chest X-Ray 10/05/18 17:38 IMPRESSION: Bibasilar airspace disease, greater on the left, atelectasis versus edema. D/ / Frankie Carlin MD / Frankie Carlin MD Interpreting Provider: Frankie Carlin MD Attestation Statement - Attestation Attestation: I, Masood Christensen MD, personally evaluated this patient and discussed their management with the resident physician. I reviewed the resident's note and agree with the documented findings, medical decision making, and plan of care. 43-year-old female presents to the emergency department with a complaint of some increased shortness of breath. Patient has end-stage renal disease on hemodialysis and missed her dialysis yesterday. Has been some slight increased cough. No sputum production. No fever. No chest pain. Patient has an ulceration on the right foot which is chronic and she states is unchanged from usual. She was seen here 2 days ago and had blood cultures. While the patient was here in the emergency department received a phone call from the lab reporting that she had a positive blood culture from 2 days ago with gram- positive cocci. Dr. Saenz called the lab to try and get further information on this and they could not even confirm that there was a positive blood culture so we are uncertain of the validity of this report at present. Patient has no fever or leukocytosis. On examination patient is a well-developed well-nourished female in no acute distress. She is alert and oriented 3. There is no cyanosis or diaphoresis. Breath sounds are equal bilaterally with a few bibasilar rales. No wheezes. Heart regular rate and rhythm. Abdomen soft and nontender with normal bowel sounds. Labs reviewed. Chest x-ray shows some bibasilar atelectasis versus edema. At this point we will hold antibiotics as we are uncertain if patient actually had a positive blood culture and she is asymptomatic as far is any signs of sepsis. The hospitalist, Dr. Arndt, was consulted and accepted admission of the patient.
[2018-10-06] MEDS ORDERED: Naloxone 0.4 MG/ML INJ IVP PRN (06:49)
--- NOTE | 2018-10-06 07:00 | Internal Med History&Physical ---
Date of Encounter: 10/06/18 Time of Encounter: 06:15 Internal Medicine - H&P: HPI Chief complaint: ESRD, Shortness of breath Admitted From: Emergency Dept History of present illness: Ms. Alexis is a 43 year old female Patient presented to the emergency room with shortness of breath. She says it has been getting worse over the last few days. She has history of end-stage renal disease, and missed her last dialysis appointment. She has dialysis on Tuesdays, , and Saturdays. She is unable to go to her last dialysis appointment due to not having a ride. She otherwise denies chest pain, abdominal pain, nausea, diarrhea and constipation. She has had a few episodes of vomiting but has not vomited in 24 hours. She denies cough, chills and fever. In the emergency room patient's vital signs initially were within normal limits aside from an elevated blood pressure. She was saturating out of 100% on room air. Patient's CBC revealed a white count of 4.3 and hemoglobin of 9.7. Platelets are 163. Patient's BNP shows sodium of 139, for renal function but otherwise was normal. Patient's troponin was undetectable and her lactic acid level was 1.8. Patient's chest x-ray showed bibasilar airspace disease left greater than right. EKG performed showed normal sinus rhythm with no evidence of ischemic changes. Blood cultures were drawn due to reports that she had positive blood cultures previously however review of patient's microbiology reveals that her previous blood cultures drawn on October 03 have not resulted yet. She did have a wound culture on the of this month that has grown out Staphylococcus aureus. She was not started on antibiotics in the emergency room. She was sent to the medical floor for further management. Upon my evaluation, patient is resting comfortably in the hospital bed in no acute distress. She no longer feels short of breath. She confirms the history above. She is significant history of recent blood clots in her left arm at her fistula site. She has been on Eliquis for this. She has a wound on her right foot which she has dressing applied to. I asked the patient about her family history, she states that she does not know much about her family history of medical problems. We do have documentation of this as below. She is a full code. Past Med Surg Social Fam HX - Past Medical History Medical history: asthma, atrial fibrillation, diabetes, dialysis, GI bleed, hyperlipidemia, hypertension, renal disease, thyroid disease Additional medical history: ANEMIA, BLEEDING ULCER,. KIDNEY DIALYSIS Psychiatric history: no psych history - Past Surgical History Surgical History: appendectomy, cholecystectomy, thyroidectomy, transplant, other Additional surgical history: KIDNEY TRANSPLANT 2007, TUBAL LIGATION, left antecubital AV fistula, multiple surgical and endovascular interventions for the left antecubital AV fistula, and placement of a left upper arm AV shunt - Social History Smoking Status: Never smoker Smokeless Tobacco Status: No Alcohol use: none Drug use: none - Family History Father Adopted: No Family Member Ethnicity: Non- Living Status: Hx Family Cardiac Disorders: Yes Hx Family Respiratory Disorders: Yes Hx Family Cancer: Yes Hx Family GI Disorders: No Hx Family Endocrine Disorder: Yes Hx Family Neuromuscular Disorders: No Hx Family Neurologic Disorders: No Hx Family HEENT Disorders: No Hx Family Autoimmune Disorders: No Mother Adopted: No Living Status: Hx Family Cardiac Disorders: Yes Hx Family Respiratory Disorders: No Hx Family Cancer: Yes Hx Family GI Disorders: No Hx Family Endocrine Disorder: No Hx Family Neuromuscular Disorders: No Hx Family Neurologic Disorders: No Hx Family HEENT Disorders: No Hx Family Autoimmune Disorders: No Internal Medicine - H&P: Meds Albuterol Sulfate [Albuterol Inhaler] 2 puff IH Q4H PRN 09/09/16 [History] Amiodarone [Cordarone] 200 mg PO DAILY 09/09/16 [History] Atorvastatin [Lipitor] 40 mg PO HS 09/09/16 [History] Budesonide/Formoterol 160/4.5 [Symbicort 160/4.5] 2 puff IH BIDR 09/09/16 [History] Omeprazole [PriLOSEC] 20 mg PO DAILY 09/09/16 [History] hydrALAZINE [HydrALAZINE] 50 mg PO BID 09/09/16 [History] Folic Acid 1 mg PO DAILY 01/07/18 [History] Metoprolol Succinate [Toprol Xl] 25 mg PO DAILY 01/07/18 [History] Cinacalcet [Sensipar] 30 mg PO DAILY 30 Days #30 tablet 03/22/18 [Rx] Ondansetron ODT [Zofran ODT] 4 mg SL Q8HR PRN #12 tab.rapdis 04/05/18 [Rx] cloNIDine HCl [CloNIDine HCl] 0.1 mg PO TID 04/21/18 [History] Apixaban [Eliquis] 5 mg PO BID #60 tablet 05/09/18 [Rx] Metoclopramide [Reglan] 5 mg PO 0800,1700 #120 tablet 05/28/18 [Rx] Nystatin Cream [Mycostatin Cream] 1 appl TP TID #1 tube 09/29/18 [Rx] Levothyroxine Sodium [Euthyrox] 100 mcg PO DAILY 10/05/18 [History] Allergy/AdvReac Type Severity Reaction Status Date / Time Warfarin [From Coumadin] Allergy Anaphylaxis Verified 10/05/18 22:06 heparin AdvReac Severe Unresponsiv Verified 10/05/18 22:06 e All Systems PM: A 10-system review of systems was performed and is negative for pertinent findings except as documented above in the HPI. - Constitutional Vitals: Temp Pulse Resp BP Pulse Ox 97.7 F 74 15 136/82 95 10/06/18 03:49 10/06/18 03:49 10/06/18 03:49 10/06/18 03:49 10/06/18 03:49 General appearance: Present: cooperative, A&O X 3, pleasant, no acute distress, answers questions appropriately Exam: - - Head Head exam: Present: normal inspection - Eye Eye exam: Present: EOMI, normal appearance - Respiratory Respiratory exam: Present: CTAB. Absent: rales, respiratory distress, rhonchi, wheezes - Cardiovascular Cardiovascular exam: Present: RRR. Absent: diastolic murmur, systolic murmur - GI/Abdominal GI/Abdominal exam: Present: normal bowel sounds, soft. Absent: tenderness - Extremities Exam Extremities exam: Present: tenderness, warm, radial pulses palpable and symmetrical Additional comments: Left upper extremity wrapped with dressing. Swelling noted secondary to DVT Right foot has bandaging applied to the dorsal surface at the site of wound - Neurological Exam Neurological exam: Present: no focal deficits, strengths equal and symetr throughout. Absent: motor sensory deficit, facial droop, speech deficit - Skin Skin exam: Present: dry, erythema, normal color Additional comments: Left arm is erythematous and tender. Right foot has wound on dorsal surface as described above. Internal Med - H&P Results - Labs CBC & Chem 7: 10/06/18 07:01 10/06/18 07:01 Labs: Short CBC 10/05/18 Range/Units 19:28 WBC 4.3 (4.3-11.1) K/mcL Hgb 9.7 L (11.5-15.4) g/dL Hct 30.8 L (35.3-44.9) % Plt Count 163 (140-400) K/mcL Neutrophils # 2.1 (1.6-8.9) K/mcL BMP 10/05/18 19:28 Sodium 139 Potassium 3.8 Chloride 102 Carbon Dioxide 24 BUN 13 Creatinine 5.75 H Glucose 60 L Calcium 8.5 L Cardiac Enzymes 10/05/18 Range/Units 19:28 Troponin I < 0.03 (< 0.04) ng/mL - Impressions ITS Impressions Chest X-Ray 10/05/18 17:38 IMPRESSION: Bibasilar airspace disease, greater on the left, atelectasis versus edema. D/ / Frankie Carlin MD / Frankie Carlin MD Interpreting Provider: Frankie Carlin MD - Assessment and Plan (1) Shortness of breath Current Visit: Yes Status: Acute Assessment and plan: Likely secondary to fluid overload from missing dialysis. Patient states that this has improved at this point however. Continue oxygen supplementation as needed. Dialysis per nephrology. Continue to monitor. (2) Wound of right foot Current Visit: No Status: Acute Assessment and plan: Will continue wound care. Cultures grew out Staph aureus from 09/28. Unclear what antibiotics have been started for this. Consider treatment if not already addressed. 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 Qualifiers: Atrial fibrillation type: chronic Qualified Code(s): I48.2 - Chronic atrial fibrillation (5) ESRD (end stage renal disease) on dialysis Current Visit: No Status: Chronic Assessment and plan: Continue dialysis Consult nephrology (6) Noncompliance with renal dialysis Current Visit: No Status: Chronic Assessment and plan: Patient missed her scheduled appointment, and was worried about missing her next one as well. office services clerk consult to help with transportation arrangements. (7) DVT prophylaxis Current Visit: No Status: Acute Assessment and plan: On eliquis - Time Spent With Patient Total time spent is greater than 50% in coordination of care (as documented) at patient's floor/unit and/or counseling patient: Greater than 35 minutes
[2018-10-06 07:36] LABS: Hematocrit 23.8 % (35.3-44.9); Mean Corpuscular HGB Conc 32.8 g/dL (31.6-35.5); Mean Corpuscular Hemoglobin 32.6 pg (28.0-33.3); Mean Corpuscular Volume 99.6 fL (83.0-100.0); Mean Platelet Volume 9.8 fL (9.4-12.4); Platelet Count 124 K/mcL (140-400); Red Blood Count 2.39 M/mcL (3.82-4.97); Red Cell Distribution Width 17.9 % (11.5-14.5)
[2018-10-06 07:47] LABS: Hemoglobin 7.8 g/dL (11.5-15.4)
[2018-10-06 07:59] LABS: Albumin 1.9 g/dL (3.5-5.7); Albumin/Globulin Ratio 0.7 (1.1-2.2); Bilirubin,Total 0.6 mg/dL (0.3-1.0); Calcium 7.9 mg/dL (8.6-10.3); Globulin 2.6 g/dL (2.4-3.5); Phosphorous 4.9 mg/dL (2.7-4.5); Potassium 3.7 mEq/L (3.5-5.1); Total Protein 4.5 g/dL (6.4-8.9)
[2018-10-06] MEDS ORDERED: 0.9 % Sodium Chloride 250 ML IVC PRN (08:07)
[2018-10-06] MEDS ORDERED: 0.9 % Sodium Chloride 1,000 ML PRIME SCH (08:15)
--- NOTE | 2018-10-06 08:50 | Nephrology Consult Note ---
Date of Encounter: 10/06/18 Time of Encounter: 10:25 Assessment and Plan (1) ESRD (end stage renal disease) on dialysis Current Visit: No Status: Chronic ESRD on thrice weekly hemodialysis Monday//Monday, and I reviewed her outpatient dialysis notes, and she appears to be skipping dialysis every other treatment. I have noticed this trend going back for quite some time, and it concerns me that she is putting herself at high risk for worsening morbidity and mortality, which I explained to her in plain words. She has a history of calciphylaxis and previous bacteremia plus infected dialysis catheters; however, she continues to miss her outpatient referrals for AV fistula placement. I have ordered the sodium thiosulfate for her to receive during dialysis for Calciphylaxis. Anemia, likely multifactorial, and I will resume her outpatient EPO at 8000 units per treatment; however, when she misses so much dialysis, she would also miss out on receiving EPO, which would worsen her anemia. If she needs a GI bleed workup, if indicated, I will defer that to the primary team. Thank you for consulting the [facility] on this very complex and high risk patient given her known previous multiple infections and multiple comorbidities. She required a high degree of medical decision-making and evaluation and management. Thank you (2) History of central line-associated bloodstream infection (CLABSI) Current Visit: No Status: Chronic She is a history of numerous infected dialysis catheters, but this does not seem to be the present/active issue. I should be able to utilize her existing right- sided permacath. The exit site appears well and uninfected, and though the sutures are starting to fade, which is normal within about a month after placing the permacath. 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 She has not yet been able to follow-up with her vascular surgeon, but she said there is an upcoming outpatient appointment, and I counseled her to be sure to attend that appointment. (3) Calciphylaxis Current Visit: No Status: Chronic I will continue her ongoing/outpatient Sodium Thiosulate 25gm IV over the last hour of HD. (4) Hypertension Current Visit: No Status: Chronic Continue current Rx. Qualifiers: Hypertension type: essential hypertension Qualified Code(s): I10 - Essential (primary) hypertension (5) Noncompliance with renal dialysis Current Visit: No Status: Chronic Ongoing and I again counseled her to be sure to attend her appointments. I also called the outpt [facility] dialysis unit to help ensure that transportation services were arranged, and they have been but the patient per report just does not call for the ride. History of Present Illness - Reason for Consult Consult date: 10/06/18 end stage renal disease Requesting physician: Wyatt Villarreal - Chief Complaint Noncompliance with missing Dialysis frequently - History of Present Illness The patient is a 43-year-old female with a past medical history of diabetes, anemia, calciphylaxis, chronic wounds, previous renal transplant, previous peritoneal dialysis, several prior catheter associated infections, ESRD on thrice weekly hemodialysis Monday//Monday and etc who presented having missed dialysis. I reviewed the outpatient [facility] notes, and I see that she is missing about every other dialysis treatment. She tells me that she has transportation issues. I called the outpatient dialysis unit and spoke to the crystallographer Jessica, and the patient has been provided information to arrange for area transportation services, but apparently the patient has not called to arrange this. The patient affirmed having fatigue, but did not report visible blood loss in the stool or urine. She reported that she does not make much urine anymore. She did not affirm active fevers, chills, chest pain, nausea, vomiting, but did report diminished appetite and ongoing swelling. She does have a history of wounds, and has been previously treated with sodium thiosulfate. She normally receives 210 minutes of dialysis with high-dose EPO for her chronic anemia. She reported that her left arm has remained swollen over the last several weeks to months, which developed after she had an AV fistula surgery in the left arm, and she was then found to have DVTs. She has not yet followed up with her vascular surgeon, she affirmed, but she said there is an upcoming appointment. Past Med Surg Social Fam HX - Past Medical History Medical history: asthma, atrial fibrillation, diabetes, dialysis, GI bleed, hyperlipidemia, hypertension, renal disease, thyroid disease Additional medical history: ANEMIA, BLEEDING ULCER,. KIDNEY DIALYSIS Psychiatric history: no psych history - Past Surgical History Surgical History: appendectomy, cholecystectomy, thyroidectomy, transplant, other Additional surgical history: KIDNEY TRANSPLANT 2007, TUBAL LIGATION, left antecubital AV fistula, multiple surgical and endovascular interventions for the left antecubital AV fistula, and placement of a left upper arm AV shunt - Social History Smoking Status: Never smoker Smokeless Tobacco Status: No Alcohol use: none Drug use: none - Family History Father Adopted: No Family Member Ethnicity: Non- Living Status: Hx Family Cardiac Disorders: Yes Hx Family Respiratory Disorders: Yes Hx Family Cancer: Yes Hx Family GI Disorders: No Hx Family Endocrine Disorder: Yes Hx Family Neuromuscular Disorders: No Hx Family Neurologic Disorders: No Hx Family HEENT Disorders: No Hx Family Autoimmune Disorders: No Mother Adopted: No Living Status: Hx Family Cardiac Disorders: Yes Hx Family Respiratory Disorders: No Hx Family Cancer: Yes Hx Family GI Disorders: No Hx Family Endocrine Disorder: No Hx Family Neuromuscular Disorders: No Hx Family Neurologic Disorders: No Hx Family HEENT Disorders: No Hx Family Autoimmune Disorders: No Medications and Allergies Albuterol Sulfate [Albuterol Inhaler] 2 puff IH Q4H PRN 09/09/16 [History] Amiodarone [Cordarone] 200 mg PO DAILY 09/09/16 [History] Atorvastatin [Lipitor] 40 mg PO HS 09/09/16 [History] Budesonide/Formoterol 160/4.5 [Symbicort 160/4.5] 2 puff IH BIDR 09/09/16 [History] Omeprazole [PriLOSEC] 20 mg PO DAILY 09/09/16 [History] hydrALAZINE [HydrALAZINE] 50 mg PO BID 09/09/16 [History] Folic Acid 1 mg PO DAILY 01/07/18 [History] Metoprolol Succinate [Toprol Xl] 25 mg PO DAILY 01/07/18 [History] Cinacalcet [Sensipar] 30 mg PO DAILY 30 Days #30 tablet 03/22/18 [Rx] Ondansetron ODT [Zofran ODT] 4 mg SL Q8HR PRN #12 tab.rapdis 04/05/18 [Rx] cloNIDine HCl [CloNIDine HCl] 0.1 mg PO TID 04/21/18 [History] Apixaban [Eliquis] 5 mg PO BID #60 tablet 05/09/18 [Rx] Metoclopramide [Reglan] 5 mg PO 0800,1700 #120 tablet 05/28/18 [Rx] Nystatin Cream [Mycostatin Cream] 1 appl TP TID #1 tube 09/29/18 [Rx] Levothyroxine Sodium [Euthyrox] 100 mcg PO DAILY 10/05/18 [History] Allergy/AdvReac Type Severity Reaction Status Date / Time Warfarin [From Coumadin] Allergy Anaphylaxis Verified 10/05/18 22:06 heparin AdvReac Severe Unresponsiv Verified 10/05/18 22:06 e Review of Systems All Systems: reviewed and no additional remarkable complaints except as stated Exam - Vital Signs Vital signs: Initial Vital Signs Temp Pulse Resp BP Pulse Ox 98.1 F 74 18 159/108 100 10/05/18 17:34 10/05/18 17:34 10/05/18 17:34 10/05/18 17:34 10/05/18 17:34 Vital Signs - Last 8 Hours Temp Pulse Resp BP Pulse Ox 10/06/18 07:35 97.6 F 80 16 137/83 94 10/06/18 03:49 97.7 F 74 15 136/82 95 Intake and Output 10/05/18 10/06/18 10/06/18 23:59 07:59 15:59 Intake Total 0 / 0 Output Total 0 / 0 Balance 0 / 0 Intake: Oral 0 / 0 Output: Urine 0 / 0 Other: Weight 75.1 kg Blood Glucose* 44 - General Appearance General appearance: well-developed, well-nourished, obese, chronically ill, fatigue, frail EENT: ATNC, PERRL, mucous membranes moist Neck: supple Respiratory: course breath sounds Cardiology: edema (1+ pretibial pitting edema bilaterally), regular rate, regular rhythm, normal S1, normal S2 - Dialysis Access Dialysis Vascular Access: Venous Catheter (Right sided Permacath with exitsite C/D/I. Her sutures are coming loose.) Gastrointestinal: normoactive bowel sounds, no tenderness, no guarding, obese Additional Comments: Hx of chronic wounds Neurologic: no focal deficit, no asterixis, alert and oriented x3 Musculoskeletal: no cyanosis, no clubbing Psychiatric: mood/affect appropriate, cooperative Results - Lab Results 10/06/18 07:01 10/06/18 07:01 Most recent lab results Calcium 7.9 mg/dL (8.6-10.3) L 10/06/18 07:01 Phosphorus 4.9 mg/dL (2.7-4.5) H 10/06/18 07:01 I reviewed her labs, vitals, medication lists, imaging and previous progress notes as well as outpatient dialysis notes Consult Discharge Plan - Plan Referrals: NONE,PCP [Primary Care Provider] -
[2018-10-06] MEDS ORDERED: *HR* Dextrose 50 % in Water (Syg) 50 ML SYRINGE IVP PRN (10:20)
[2018-10-06] MEDS ORDERED: Dextrose Gel 15 GM/37.5 ML TUBE PO PRN ×2 (10:20)
[2018-10-06] MEDS ORDERED: D5% in Water 1,000 ML IVC PRN (10:20)
[2018-10-06] MEDS: Apixaban 5 MG TABLET PO SCH ×2 (10:27→20:04)
[2018-10-06 11:15] LABS: Hepatitis B Surface Antibody < 3.10 mIU/mL
[2018-10-06 11:26] LABS: Hepatitis B Surface Antigen Nonreactive (Nonreactive)
[2018-10-06] MEDS ORDERED: Sodium Thiosulfate 25 GM in EMPTY BAG 1 EACH IVPB SCH (11:30)
[2018-10-06] MEDS ORDERED: Ondansetron 4 MG/2 ML VIAL IVP ONE (17:10)
--- NOTE | 2018-10-07 07:42 | Event Note ---
Date of Encounter: 10/07/18 Time of Encounter: 07:41 - Nephrology Event Note Nephrology chart update The patient completed HD on Monday, and her next tentative treatment would be planned for Monday, but I will reassess her tomorrow (Monday) since she has missed so much dialysis over the last few weeks -- about every other HD treatment. I will be available today if any nephrology questions, and please feel free to call or page me. Thank you
[2018-10-07] MEDS: Apixaban 5 MG TABLET PO SCH ×2 (09:38→22:12)
--- NOTE | 2018-10-07 10:16 | Internal Med Progress Note ---
Hospitalist Progress Note - Encounter Date of Encounter: 10/07/18 Time of Encounter: 10:16 - Subjective Interval History: Recent and examined this morning at bedside. No acute overnight events. Breathing significantly improved. Denies nausea vomiting. Denies any pain in the right lower extremity with her wounds. Mentioned she has follow-up with celia ayala on Monday which she cannot miss. She finished about a week of antibiotics. - Exam Vitals: Temp Pulse Resp BP Pulse Ox 98.7 F 71 16 114/69 95 10/07/18 07:12 10/07/18 07:12 10/07/18 07:12 10/07/18 07:12 10/07/18 07:12 Exam: General: In no acute distress. Obese Respiratory exam: CTAB. no accessory muscle use, rales, rhonchi, wheezes Cardiovascular exam: RRR, +S1, +S2. no murmur, gallop, rubs. GI/Abdominal exam: Obese, Non-tender, Non-distended, soft, no peritoneal signs. multiple scars noted from old wounds Extremities exam: no pedal edema, no calf tenderness. Has Rt foot dorsal wound which does not appear infected. Neurological exam: CN II-XII intact, no focal deficits Skin exam: as above - Summary of Assessment and Plan Summary of Assessment and Plan: Shortness of breath - Likely secondary to fluid overload from missing dialysis and non compliance. - improved after dialysis. - dialysis per nephrology. - consulted with social service for transportation Wound of right foot - Cultures grew MSSA from 09/28. Had about 1 week of antibiotics likely augmentin and doxycycline which she said she took most. - Wound doesn't look infected. - Will get CT to evaluate for osteomyelitis AV fistula thrombosis - Continue eliquis - Has follow up with vascular on monday Afib - c/w home amiodarone and eliquis. metoprolol held given BP low.. ESRD - Continue dialysis per nephrology DVT prophylaxis - On eliquis - Time Spent with Patient Total time spent is greater than 50% in coordination of care (as documented) at patient's floor/unit and/or counseling patient: Internal Medicine: Result - Labs CBC & Chem 7: 10/06/18 07:01 10/06/18 07:01 Consult Discharge Plan - Plan Referrals: NONE,PCP [Primary Care Provider] -
[2018-10-07] MEDS: *HR* Amiodarone 200 MG TABLET PO SCH (15:34)
[2018-10-07] MEDS: Budesonide/Formoterol 160/4.5 1 PUFF INH IH SCH (22:37)
[2018-10-08 05:03] LABS: Basophils % 0.7 %; Eosinophils # 0.2 K/mcL (0.0-0.6); Eosinophils % 5.7 %; Hematocrit 22.4 % (35.3-44.9); Hemoglobin 7.1 g/dL (11.5-15.4); Immature Granulocytes % 0.3 % (0-4); Lymphocytes # 0.9 K/mcL (0.6-4.6); Lymphocytes % 31.6 %; Mean Corpuscular HGB Conc 31.7 g/dL (31.6-35.5); Mean Corpuscular Hemoglobin 31.6 pg (28.0-33.3); Mean Corpuscular Volume 99.6 fL (83.0-100.0); Mean Platelet Volume 10.3 fL (9.4-12.4); Monocytes # 0.5 K/mcL (0.0-1.3); Monocytes % 15.8 %; Neutrophils # 1.4 K/mcL (1.6-8.9); Platelet Count 112 K/mcL (140-400); Red Blood Count 2.25 M/mcL (3.82-4.97); Segmented Neutrophils % 45.9 %
[2018-10-08 05:23] LABS: Calcium 7.9 mg/dL (8.6-10.3)
[2018-10-08] MEDS ORDERED: 0.9 % Sodium Chloride 250 ML IVC PRN (06:52)
[2018-10-08] MEDS: Budesonide/Formoterol 160/4.5 1 PUFF INH IH SCH (07:38)
--- NOTE | 2018-10-08 07:39 | Electrocardiograph Report ---
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
[2018-10-08] MEDS: *HR* Amiodarone 200 MG TABLET PO SCH (08:29)
[2018-10-08] MEDS: Apixaban 5 MG TABLET PO SCH (08:29)
--- NOTE | 2018-10-08 11:07 | Nephrology Progress Note ---
Addendum entered and electronically signed by Wyatt Stewart DO 10/08/18 18:18: I have personally performed a face to face evaluation on this patient. I have reviewed and agree with the care plan. History and Exam by me shows: ESRD on HD Monday, but she had missed so much dialysis last week, and the week before that, so I recommend an extra treatment today (Monday). She would next need dialysis tomorrow. She affirmed with me that she has a friend lined up to help her make it all of her dialysis treatments and to her upcoming vascular surgery appointment as an outpatient. So, I am okay with discharge today. Original Note: Date of Encounter: 10/08/18 Time of Encounter: 11:05 - Assessment and Plan (1) ESRD (end stage renal disease) on dialysis Current Visit: No Status: Chronic Current regimen is TTS at [facility]. Plan for HD today. Renal diet Renal vitamins Strict I/O Avoid nephrotoxins and renal dose all medications. (2) Calciphylaxis Current Visit: No Status: Chronic I will continue her ongoing/outpatient Sodium Thiosulate 25gm IV over the last hour of HD. (3) Noncompliance with renal dialysis Current Visit: No Status: Chronic Ongoing and I again counseled her to be sure to attend her appointments. I also called the outpt [facility] dialysis unit to help ensure that transportation services were arranged, and they have been but the patient per report just does not call for the ride. (4) Hypertension Current Visit: No Status: Chronic Continue current Rx. Qualifiers: Hypertension type: essential hypertension Qualified Code(s): I10 - Essential (primary) hypertension (5) History of central line-associated bloodstream infection (CLABSI) Current Visit: No Status: Chronic She is a history of numerous infected dialysis catheters, but this does not seem to be the present/active issue. I should be able to utilize her existing right- sided permacath. The exit site appears well and uninfected, and though the sutures are starting to fade, which is normal within about a month after placing the permacath. She still has a permacath, because her previously placed left arm AV fistula l ead to DVT. She is to report to [facility] on at 10am (per Dr. Alvares's office) for fistulagram and then make an outpatient appt with Dr. Alvares to fix fistula. Subjective Principal diagnosis: difficulty in breathing Interval history: Pt seen and examined, is doing well. Denies chest pain or shortness of breath. Denies nausea, vomiting, diarrhea. She states she would like to leave today, primary team said yesterday, she could leave today. Objective - Vital Signs Vital signs: Vital Signs Temp Pulse Resp BP Pulse Ox 10/08/18 07:38 98.5 F 99 16 135/85 93 10/08/18 03:33 98.4 F 79 17 122/64 94 10/07/18 23:47 98.2 F 94 17 126/58 10/07/18 22:43 16 91 10/07/18 18:40 98.6 F 77 17 147/74 93 10/07/18 16:09 98.8 F 76 16 135/80 91 10/07/18 11:21 98.5 F 75 16 105/60 94 Intake and Output 10/07/18 10/08/18 10/08/18 23:59 07:59 15:59 Intake Total 240 / 240 240 / 240 Balance 240 / 240 240 / 240 Intake: Oral 240 / 240 240 / 240 Other: Meal Dinner Breakfast Percent of Meal Consumed 100% 20% Weight 74 kg Blood Glucose* 83 57 75 - General Appearance General appearance: Present: well-developed, well-nourished EENT: Present: ATNC, hearing intact, vision intact Neck: Present: supple Respiratory: Present: clear Cardiology: Present: edema (+3 noted to LUE. +1 pitting edema noted to bilat lower extremities.), normal S1, normal S2 Dialysis Vascular Access: Venous Catheter (DRSG C/D/I) Gastrointestinal: Present: normoactive bowel sounds, no tenderness, no guarding Integumentary: Present: no rash, warm and dry Neurologic: Present: alert and oriented x3 Musculoskeletal: Present: no deformities, no erythema Psychiatric: Present: mood/affect appropriate, cooperative - Lab 10/08/18 04:36 10/08/18 04:36 Most recent lab results Calcium 7.9 mg/dL (8.6-10.3) L 10/08/18 04:36 Phosphorus 4.9 mg/dL (2.7-4.5) H 10/06/18 07:01 Consult Discharge Plan - Plan Additional Instructions: Please keep your appointment on , October 11 at 10am at [facility] in [place] for your fistula gram, per Dr. Alvares. There address is [address] [place] [address]. Phone number is [phone] if you have any questions. If you need to speak with Dr. Alvares you may call her office at [phone]. Thank you! Referrals: NONE,PCP [Primary Care Provider] -
--- NOTE | 2018-10-08 15:28 | Podiatry Consult Note ---
Date of Encounter: 10/08/18 Time of Encounter: 15:00 Assessment and Plan (1) Open wound of right foot Current visit: Yes Status: Acute Assessment: -Open wound noted right dorsal forefoot with undermining noted from 12 to 3 o'clock position. No tunneling noted. No evidence of infection noted. No odor. No streaking. There is erythema noted periwound. Some necrotic and callused tissue noted wound edge approximately 25%. Sanguineous drainage noted. -ESR 8, CRP 109 09/28/2018 -WBC 3.0 -Right foot CT showed no evidence of osteomyelitis or other acute osseous abnormality. Dorsal forefoot soft tissue ulceration with extensive subcutaneous fat stranding compatible with cellulitis. No drainable fluid collection. -Right foot culture 09/28/2018 Staphylococcus aureus -2/4 PT/DP pulses -Cap refill less than 3 seconds Plan: -Site flushed with .9NS and pat dry -Painted area with betadine and applied dry dressing using 4x4s and Kerlix -Follow up with [facility] after discharge -Daily dressing changes -Recommend ID consult to determine if appropriate course and length of treatment was obtained, any recommendations are appreciated Qualifiers: Encounter type: initial encounter Qualified Code(s): S91.301A - Unspecified open wound, right foot, initial encounter History of Present Illness HPI: Ms. Alexis is a 43 year old female who presented to the ER on Monday10/05/2018 with complaints of shortness of breath that had started a few days before seeking treatment. Patient does have a past medical history of asthma, atrial fibrillation, diabetes, dialysis Monday, , and Monday, GI bleed, anemia, hyperlipidemia, hypertension, end stage renal disease, and thyroid disease. Podiatry was consulted due to an ulcer right dorsal aspect of foot. Patient states that in August she fell on her carpet and injured her foot. She was evaluated by podiatry while inpatient and was diagnosed with a bulla. She did not follow up after her discharge with podiatry due to transportation issues. She presents now with an open wound right dorsal aspect of forefoot. Patient denies any complications and states she has been cleaning and dressing the wound daily. Patient denies any odor and reports occasional sanguineous drainage. Patient denies any fever, nausea, or diarrhea. She does report vomiting but states she does not feel it has anything to do with her foot. Patient denies any chest pain, reports her shortness of breath has improved, and denies calf pain. Patient reports she was prescribed antibiotics and finished them, but she is unsure of names. Patient denies any alcohol, illicit drug, or tobacco use. Review of ER discharge summary from 10/03/2018 showed patient was given a script for Augmentin and Doxycycline. Again patient is known to podiatry but was lost in follow up due to transportation issues. An ESR and CRP were obtained on 09/28/18 and ESR was 8 and CRP was 109. Cultures of the right foot from 09/28/2018 were positive for Staphylococcus aureus. Hgb A1c 08/26/[address] was obtained of the right foot and showed no evidence of osteomyelitis or other acute osseous abnormality. Dorsal forefoot soft tissue ulceration with extensive subcutaneous fat stranding compatible with cellulitis. No drainable fluid collection. Since admission wound care has been ordered, it does not appear that any antibiotic treatment has been initiated. Past Med Surg Social Fam HX - Past Medical History Medical history: asthma, atrial fibrillation, diabetes, dialysis, GI bleed, hyperlipidemia, hypertension, renal disease, thyroid disease Additional medical history: ANEMIA, BLEEDING ULCER,. KIDNEY DIALYSIS Psychiatric history: no psych history - Past Surgical History Surgical History: appendectomy, cholecystectomy, thyroidectomy, transplant, other Additional surgical history: KIDNEY TRANSPLANT 2007, TUBAL LIGATION, left antecubital AV fistula, multiple surgical and endovascular interventions for the left antecubital AV fistula, and placement of a left upper arm AV shunt - Social History Smoking Status: Never smoker Smokeless Tobacco Status: No Alcohol use: none Drug use: none - Family History Father Adopted: No Family Member Ethnicity: Non- Living Status: Hx Family Cardiac Disorders: Yes Hx Family Respiratory Disorders: Yes Hx Family Cancer: Yes Hx Family GI Disorders: No Hx Family Endocrine Disorder: Yes Hx Family Neuromuscular Disorders: No Hx Family Neurologic Disorders: No Hx Family HEENT Disorders: No Hx Family Autoimmune Disorders: No Mother Adopted: No Living Status: Hx Family Cardiac Disorders: Yes Hx Family Respiratory Disorders: No Hx Family Cancer: Yes Hx Family GI Disorders: No Hx Family Endocrine Disorder: No Hx Family Neuromuscular Disorders: No Hx Family Neurologic Disorders: No Hx Family HEENT Disorders: No Hx Family Autoimmune Disorders: No Medications and Allergies Albuterol Sulfate [Albuterol Inhaler] 2 puff IH Q4H PRN 09/09/16 [History] Amiodarone [Cordarone] 200 mg PO DAILY 09/09/16 [History] Atorvastatin [Lipitor] 40 mg PO HS 09/09/16 [History] Budesonide/Formoterol 160/4.5 [Symbicort 160/4.5] 2 puff IH BIDR 09/09/16 [History] Omeprazole [PriLOSEC] 20 mg PO DAILY 09/09/16 [History] hydrALAZINE [HydrALAZINE] 50 mg PO BID 09/09/16 [History] Folic Acid 1 mg PO DAILY 01/07/18 [History] Metoprolol Succinate [Toprol Xl] 25 mg PO DAILY 01/07/18 [History] Cinacalcet [Sensipar] 30 mg PO DAILY 30 Days #30 tablet 03/22/18 [Rx] Ondansetron ODT [Zofran ODT] 4 mg SL Q8HR PRN #12 tab.rapdis 04/05/18 [Rx] cloNIDine HCl [CloNIDine HCl] 0.1 mg PO TID 04/21/18 [History] Apixaban [Eliquis] 5 mg PO BID #60 tablet 05/09/18 [Rx] Metoclopramide [Reglan] 5 mg PO 0800,1700 #120 tablet 05/28/18 [Rx] Nystatin Cream [Mycostatin Cream] 1 appl TP TID #1 tube 09/29/18 [Rx] Levothyroxine Sodium [Euthyrox] 100 mcg PO DAILY 10/05/18 [History] Allergy/AdvReac Type Severity Reaction Status Date / Time Warfarin [From Coumadin] Allergy Anaphylaxis Verified 10/05/18 22:06 heparin AdvReac Severe Unresponsiv Verified 10/05/18 22:06 e All Systems Reviewed: The remainder of the systems were reviewed and are negative Review of systems: As per HPI. - Cardiovascular Cardiovascular: no chest pain - Respiratory Respiratory: no dyspnea Physical Exam - Constitutional Vitals: Temp Pulse Resp BP Pulse Ox 97.7 F 77 16 134/87 92 10/08/18 14:00 10/08/18 11:25 10/08/18 14:00 10/08/18 14:00 10/08/18 11:25 Exam: Constitutional: Patient is alert and oriented x 3 Vascular: 2/4 PT/DP pulse right foot, cap refill less than 3 seconds, no pain with manual calf pressure/calf squeeze, no edema noted Neurological: Sensation intact, proprioception intact Dermatological: Open wound noted right dorsal forefoot with undermining noted from 12 to 3 o'clock position. No tunneling noted. No evidence of infection noted. No odor. No streaking. There is erythema noted periwound. Some necrotic tissue noted wound edge approximately 25%. Sanguineous drainage noted. Musculoskeletal: 4/ muscle strength - Expanded Lower Extremities Exam 1 - open wound Results - Labs Result Diagrams: 10/08/18 04:36 10/08/18 04:36 Labs: Abnormal lab results WBC 3.0 K/mcL (4.3-11.1) L 10/08/18 04:36 RBC 2.25 M/mcL (3.82-4.97) L 10/08/18 04:36 Hgb 7.1 g/dL (11.5-15.4) L 10/08/18 04:36 Hct 22.4 % (35.3-44.9) L 10/08/18 04:36 RDW 18.0 % (11.5-14.5) H 10/08/18 04:36 Plt Count 112 K/mcL (140-400) L 10/08/18 04:36 Neutrophils # 1.4 K/mcL (1.6-8.9) L 10/08/18 04:36 Creatinine 4.48 mg/dL (0.60-1.20) H 10/08/18 04:36 Est GFR ( Amer) 13 (> 60) L 10/08/18 04:36 Est GFR (Non-Af Amer) 11 (> 60) L 10/08/18 04:36 BUN/Creatinine Ratio 2 (6-26) L 10/08/18 04:36 Glucose 59 mg/dL (70-105) L 10/08/18 04:36 POC Glucose 60 mg/dL (70-99) L 10/07/18 15:58 Calcium 7.9 mg/dL (8.6-10.3) L 10/08/18 04:36 Phosphorus 4.9 mg/dL (2.7-4.5) H 10/06/18 07:01 AST 11 Units/L (13-39) L 10/06/18 07:01 ALT 4 Units/L (7-52) L 10/06/18 07:01 Serum Total Protein 4.5 g/dL (6.4-8.9) L 10/06/18 07:01 Albumin 1.9 g/dL (3.5-5.7) L 10/06/18 07:01 Albumin/Globulin Ratio 0.7 (1.1-2.2) L 10/06/18 07:01 Hep Bs Antibody < 3.10 mIU/mL (10.00-) L 10/06/18 09:03 H & H 10/08/18 Range/Units 04:36 Hgb 7.1 L (11.5-15.4) g/dL Hct 22.4 L (35.3-44.9) % All other labs normal. Consult Discharge Plan - Plan Additional Instructions: Please keep your appointment on October 11 at 10am at [facility] in [place] for your fistula gram, per Dr. Alvares. There addres s is [address] [address]. Phone number is [phone] if you have any questions. If you need to speak with Dr. Alvares you may call her office at [phone]. Thank you! Referrals: NONE,PCP [Primary Care Provider] -
--- NOTE | 2018-10-08 16:48 | Internal Med Progress Note ---
Hospitalist Progress Note - Encounter Date of Encounter: 10/08/18 Time of Encounter: 11:48 - Subjective Interval History: Patient seen and examined this morning. No acute overnight events. Feeling better. denies nauses, vomiting or diarrhea - Exam Vitals: Temp Pulse Resp BP Pulse Ox 97.7 F 77 16 137/93 92 10/08/18 14:00 10/08/18 11:25 10/08/18 14:00 10/08/18 16:30 10/08/18 11:25 Exam: General: In no acute distress. Obese Respiratory exam: CTAB. no accessory muscle use, rales, rhonchi, wheezes Cardiovascular exam: RRR, +S1, +S2. no murmur, gallop, rubs. GI/Abdominal exam: Obese, Non-tender, Non-distended, soft, no peritoneal signs. multiple scars noted from old wounds Extremities exam: no pedal edema, no calf tenderness. Has Rt foot dorsal wound which does not appear infected but with some redness and swelling around Neurological exam: CN II-XII intact, no focal deficits Skin exam: as above - Summary of Assessment and Plan Summary of Assessment and Plan: Shortness of breath - Likely secondary to fluid overload from missing dialysis and non compliance. - improved after dialysis. To have another session today per nephrology. Wound of right foot - Cultures grew MSSA from 09/28. Had about 1 week of antibiotics likely augmentin and doxycycline which she said she took most but with uncertainity - CT without osteomyelitis. Will obtain podiatry consult AV fistula thrombosis - Continue eliquis - Has follow up with vascular outpatient [facility] - c/w home amiodarone and eliquis. metoprolol held given BP low.. ESRD - Continue dialysis per nephrology DVT prophylaxis - On eliquis - Time Spent with Patient Total time spent is greater than 50% in coordination of care (as documented) at patient's floor/unit and/or counseling patient: Internal Medicine: Result - Labs CBC & Chem 7: 10/08/18 04:36 10/08/18 04:36 Labs: Short CBC 10/08/18 Range/Units 04:36 WBC 3.0 L (4.3-11.1) K/mcL Hgb 7.1 L (11.5-15.4) g/dL Hct 22.4 L (35.3-44.9) % Plt Count 112 L (140-400) K/mcL Neutrophils # 1.4 L (1.6-8.9) K/mcL BMP 10/08/18 04:36 Sodium 138 Potassium 4.0 Chloride 102 Carbon Dioxide 26 BUN 9 Creatinine 4.48 H Glucose 59 L Calcium 7.9 L Consult Discharge Plan - Plan Additional Instructions: Please keep your appointment on October 11 at 10am at [facility] in [place] for your fistula gram, per Dr. Alvares. There address is [address] [place] [address]. Phone number is [phone] if you have any questions. If you need to speak with Dr. Alvares you may call her office at [phone]. Thank you! Referrals: NONE,PCP [Primary Care Provider] -
[2018-10-08] MEDS ORDERED: 0.9 % Sodium Chloride 1,000 ML ONE (17:11)
[2018-10-08 18:00] VITALS: BP 136/86
== END 2018-10-08 18:38 | disposition left against medical advice (07) ==
LOC: EMEROOARM 17:04 → 2ANU 17:04 → SUATTDRO 21:30 → 2ANU 23:00
PROVIDERS: ADMIT Pediatrics; ATTEND Internal Medicine

== ENCOUNTER 2019-01-21 20:25 | Inpatient (IN) ==
[2019-01-21] MEDS ORDERED: *HR* Dextrose 50 % in Water (Syg) 50 ML SYRINGE IVP ONE (20:36)
[2019-01-21] MEDS ORDERED: Ondansetron 4 MG/2 ML VIAL IVP ONE (20:38)
--- NOTE | 2019-01-21 20:39 | Emergency Department Note ---
Disposition Clinical Impression: Lactic acidosis, ESRD (end stage renal disease), Hypoglycemia, Nonsustained ventricular tachycardia, Hyperkalemia Pneumonia involving left lung Qualifiers: Pneumonia type: due to unspecified organism Lung location: unspecified part of lung Qualified Code(s): J18.9 - Pneumonia, unspecified organism Afib Qualifiers: Atrial fibrillation type: paroxysmal Qualified Code(s): I48.0 - Paroxysmal atrial fibrillation Cardiac dysrhythmia Qualifiers: Arrhythmia type: ventricular tachycardia Qualified Code(s): I47.2 - Ventricular tachycardia Disposition: Admitted As Inpatient Condition: Critical Time of Disposition: 01:02 General Adult HPI - General Chief complaint: ED Altered Mental Status Stated complaint: low blood sugar Time Seen by Provider: 01/21/19 20:28 Source: patient, family, EMS Mode of arrival: EMS Limitations: no limitations Nursing Notes Reviewed: Yes Vital Signs Reviewed: Yes - History of Present Illness Pt Subjective Complaint: Low blood sugar, not feeling well, just got over pneumo mart Onset (ago): hour(s) Location: other (generalized malaise) Radiation: non-radiation Pain Severity: mild Quality: dull Consistency: constant Improves with: nothing Worsens with: nothing Associated symptoms: Reports: cough, loss of appetite, malaise. Denies: confusion, chest pain, diaphoresis, fever/chills, headaches, nausea/vomiting, rash, seizure, shortness of breath, syncope, weakness Treatments Prior to Arrival: other (D50 per EMS for glucose of 30 - increased to 80 per EMS) - Related Data Home Medications Medication Instructions Recorded Confirmed Cholecalciferol (Vitamin D3) 50,000 units PO QWEEK 12/28/18 01/22/19 [Vitamin D3] Lidocaine/Prilocaine [Emla] 1 appl TP AD 12/28/18 01/22/19 Previous Rx's Medication Instructions Recorded Albuterol Sulfate [Proventil 2 puff IH Q4H PRN 30 Days #2 01/01/19 Inhaler] inhaler Apixaban [Eliquis] 5 mg PO BID 30 Days #60 tablet 01/01/19 Atorvastatin [Lipitor] 40 mg PO HS 30 Days #30 tablet 01/01/19 Budesonide/Formoterol 160/4.5 2 puff IH BIDR 30 Days #2 inh 01/01/19 [Symbicort 160/4.5] Folic Acid 1 mg PO DAILY 30 Days #30 tablet 01/01/19 Levothyroxine Sodium [Euthyrox] 100 mcg PO DAILY 30 Days #30 tablet 01/01/19 Metoclopramide [Reglan] 5 mg PO 0800,1700 30 Days #60 01/01/19 tablet Metoprolol Succinate [Toprol Xl] 25 mg PO DAILY 30 Days #30 01/01/19 tab.er.24h Omeprazole [PriLOSEC] 20 mg PO DAILY 30 Days #30 01/01/19 capsule.dr Garzaethiconyuliana [Gas-X] 80 mg PO TID PRN 30 Days #90 01/01/19 tab.chew cloNIDine HCl [CloNIDine HCl] 0.1 mg PO BID 30 Days #60 tablet 01/01/19 hydrALAZINE [HydrALAZINE] 50 mg PO BID 30 Days #60 tablet 01/01/19 Cefdinir [Omnicef] 300 mg PO DAILY #7 capsule 01/17/19 Allergies Allergy/AdvReac Type Severity Reaction Status Date / Time Warfarin [From Coumadin] Allergy Anaphylaxis Verified 01/21/19 20:32 heparin AdvReac Severe Unresponsiv Verified 01/21/19 20:32 e All systems ED: reviewed and negative except as stated. Review of Systems: As Per HPI Constitutional: Denies: fever, chills, weakness Eyes: Denies: vision change ENT ED: Denies: throat pain, congestion, dysphagia Cardiovascular: Reports: dyspnea on exertion. Denies: chest pain, palpitations, orthopnea, edema, syncope Respiratory: Reports: as per HPI, cough, dyspnea, sputum production. Denies: wheezes, hemoptysis, stridor Gastrointestinal: Denies: abdominal pain, nausea, vomiting, diarrhea Genitourinary: Denies: urgency, dysuria, frequency, hematuria Musculoskeletal: Reports: back pain (low back x weeks, was seen at urgent care Monday and diagnosed with muscle strain per patient). Denies: neck pain, joint swelling, arthralgia Integumentary: Denies: rash, lesions Neurological: Denies: headache, numbness, paresthesias, confusion, vertigo Endocrine: Reports: fatigue Hematological/Lymphatic: Reports: easy bleeding, easy bruising (on [place]) Past Medical History - Past Medical History Attestation: Yes The following information was validated with the patient. Source: patient Medical history: Reports: asthma, atrial fibrillation, diabetes, dialysis, GI bleed, hyperlipidemia, hypertension, renal disease, thyroid disease Surgical history: Reports: appendectomy, cholecystectomy, thyroidectomy, transplant, other Psychiatric history: Reports: no psych history [employer] history: Reports: bilateral tubal ligation - Social History Smoking Status: Never smoker Smokeless Tobacco Status: No Alcohol use: Reports: none Drug use: Reports: none Physical Exam - General Limitations: no limitations General appearance: alert, in no apparent distress - Head Head exam: atraumatic, normocephalic, other (alopecia) - Eye Eye exam: Present: normal appearance, PERRL. Absent: scleral icterus, conjunctival injection, periorbital swelling - ENT ENT exam: mucous membranes dry - Neck Neck exam: Present: normal inspection, full ROM, trachea midline. Absent: tenderness, meningismus - Respiratory Respiratory exam: Present: normal lung sounds bilaterally. Absent: respiratory distress, wheezes, stridor, accessory muscle use, prolonged expiratory phase - Cardiovascular Cardiovascular exam: Present: regular rate, normal rhythm - Abdominal Exam Abdominal exam: Present: soft, Non-Tender. Absent: distention, guarding, rebound, rigidity, mass - Extremities Exam Extremities exam: Present: normal capillary refill. Absent: tenderness, pedal edema, joint swelling, calf tenderness - Neurological Exam Neurological exam: Present: alert, oriented X3, CN II-XII intact - Psychiatric Psychiatric exam: Present: normal affect, normal mood - Skin Skin exam: Present: warm, dry, intact, normal color Course Course Narrative: Patient brought to ED by EMS for eval of low blood sugar. She states that her sugar is often low and she takes nothing for diabetes because of this. - Consultations Consultation #1: Case discussed with Dr. Fenton. She knows this patient and was very helpful with the consult. She recommends admission to ICU and dialysis when patient is more stable. Time: 22:10 Vital Signs Temperature 97.5 F L 01/21/19 20:32 Pulse Rate 86 01/21/19 20:32 Respiratory Rate 16 01/21/19 20:32 Blood Pressure 160/57 01/21/19 20:32 O2 Sat by Pulse Oximetry 100 01/21/19 20:32 Temperature 97.6 F 01/22/19 02:30 Pulse Rate 81 01/22/19 07:01 Respiratory Rate 13 01/22/19 07:01 Blood Pressure 156/87 01/22/19 07:01 O2 Sat by Pulse Oximetry 99 01/22/19 07:01 Oxygen Delivery Oxygen Delivery Room Air Medical Decision Making - Medical Records Medical records reviewed: Yes I reviewed the patient's medical records. - Lab Data Lab results reviewed: Yes I reviewed the patient's lab results. Lab results narrative: Laboratory Last Values WBC 9.2 K/mcL (4.3-11.1) D 01/21/19 20:53 RBC 2.36 M/mcL (3.82-4.97) L 01/21/19 20:53 Hgb 8.5 g/dL (11.5-15.4) L 01/21/19 20:53 Hct 26.4 % (35.3-44.9) L 01/21/19 20:53 MCV 111.9 fL (83.0-100.0) H 01/21/19 20:53 MCH 36.0 pg (28.0-33.3) H 01/21/19 20:53 MCHC 32.2 g/dL (31.6-35.5) 01/21/19 20:53 RDW 16.9 % (11.5-14.5) H 01/21/19 20:53 Plt Count 173 K/mcL (140-400) 01/21/19 20:53 MPV 10.8 fL (9.4-12.4) 01/21/19 20:53 Immature Gran % 0.9 % (0-4) 01/21/19 20:53 Seg Neutrophils % 83.8 % 01/21/19 20:53 7.7 % 01/21/19 20:53 6.9 % 01/21/19 20:53 0.5 % 01/21/19 20:53 0.2 % 01/21/19 20:53 7.7 K/mcL (1.6-8.9) 01/21/19 20:53 0.7 K/mcL (0.6-4.6) 01/21/19 20:53 0.6 K/mcL (0.0-1.3) 01/21/19 20:53 0.1 K/mcL (0.0-0.6) 01/21/19 20:53 0.0 K/mcL (0.0-0.2) 01/21/19 20:53 1+ (Not Present) A 01/21/19 20:53 Present (Not Present) A 01/21/19 20:53 VBG pH 7.22 pH Units (7.32-7.42) L 01/21/19 21:16 VBG pCO2 38 mmHg (41-51) L 01/21/19 21:16 VBG pO2 49 mmHg (25-50) 01/21/19 21:16 VBG HCO3 16 mEq/L (21-27) L 01/21/19 21:16 Sodium 131 mEq/L (136-145) L 01/21/19 20:53 Potassium 6.0 mEq/L (3.5-5.1) H 01/21/19 20:53 Chloride 92 mEq/L (98-107) L 01/21/19 20:53 Carbon Dioxide 16 mEq/L (23-29) L 01/21/19 20:53 BUN 61 mg/dL (6-20) H 01/21/19 20:53 9.39 mg/dL (0.60-1.20) H 01/21/19 20:53 Est GFR ( Amer) 6 (> 60) L 01/21/19 20:53 Est GFR (Non-Af Amer) 5 (> 60) L 01/21/19 20:53 6 (6-26) 01/21/19 20:53 Glucose 148 mg/dL (70-105) H 01/21/19 20:53 292 (280-300) 01/21/19 20:53 Lactic Acid 7.8 mmol/L (0.5-2.2) H* 01/21/19 22:19 Calcium 7.6 mg/dL (8.6-10.3) L 01/21/19 20:53 Magnesium 1.8 mg/dL (1.6-2.6) 01/21/19 20:53 0.9 mg/dL (0.3-1.0) 01/21/19 20:53 AST 606 Units/L (13-39) H 01/21/19 20:53 ALT 146 Units/L (7-52) H 01/21/19 20:53 129 Units/L (34-104) H 01/21/19 20:53 0.04 ng/mL (< 0.04) H* 01/21/19 20:53 6.1 g/dL (6.4-8.9) L 01/21/19 20:53 2.8 g/dL (3.5-5.7) L 01/21/19 20:53 3.3 g/dL (2.4-3.5) 01/21/19 20:53 0.8 (1.1-2.2) L 01/21/19 20:53 10 Units/L (11-82) L 01/21/19 20:53 Beta-Hydroxybutyric Acd 1.03 mmol/L (0.02-0.27) H 01/21/19 20:53 Result diagrams: 01/22/19 04:30 01/22/19 04:30 Lab Results 01/21/19 01/21/19 01/21/19 Range/Units 20:31 20:32 20:53 WBC 9.2 D (4.3-11.1) K/mcL RBC 2.36 L (3.82-4.97) M/mcL Hgb 8.5 L (11.5-15.4) g/dL Hct 26.4 L (35.3-44.9) % MCV 111.9 H (83.0-100.0) fL MCH 36.0 H (28.0-33.3) pg MCHC 32.2 (31.6-35.5) g/dL RDW 16.9 H (11.5-14.5) % Plt Count 173 (140-400) K/mcL MPV 10.8 (9.4-12.4) fL Immature Gran % 0.9 (0-4) % Seg Neutrophils % 83.8 % Lymphocytes % 7.7 % Monocytes % 6.9 % Eosinophils % 0.5 % Basophils % 0.2 % Neutrophils # 7.7 (1.6-8.9) K/mcL Lymphocytes # 0.7 (0.6-4.6) K/mcL Monocytes # 0.6 (0.0-1.3) K/mcL Eosinophils # 0.1 (0.0-0.6) K/mcL Basophils # 0.0 (0.0-0.2) K/mcL Polychromasia 1+ A (Not Present) Macrocytosis Present A (Not Present) PT (9.4-12.1) Seconds INR APTT (26.0-36.0) Seconds VBG pH (7.32-7.42) pH Units VBG pCO2 (41-51) mmHg VBG pO2 (25-50) mmHg VBG HCO3 (21-27) mEq/L Sodium (136-145) mEq/L Potassium (3.5-5.1) mEq/L Chloride (98-107) mEq/L Carbon Dioxide (23-29) mEq/L BUN (6-20) mg/dL Creatinine (0.60-1.20) mg/dL Est GFR ( Amer) (> 60) Est GFR (Non-Af Amer) (> 60) BUN/Creatinine Ratio (6-26) Glucose (70-105) mg/dL POC Glucose 10 L* < 10 L* (70-99) mg/dL Calculated Osmolality (280-300) Lactic Acid (0.5-2.2) mmol/L Calcium (8.6-10.3) mg/dL Magnesium (1.6-2.6) mg/dL Total Bilirubin (0.3-1.0) mg/dL AST (13-39) Units/L ALT (7-52) Units/L Alkaline Phosphatase (34-104) Units/L Troponin I (< 0.04) ng/mL Serum Total Protein (6.4-8.9) g/dL Albumin (3.5-5.7) g/dL Globulin (2.4-3.5) g/dL Albumin/Globulin Ratio (1.1-2.2) Lipase (11-82) Units/L Beta-Hydroxybutyric Acd (0.02-0.27) mmol/L Ethyl Alcohol (Less than 10) mg/dL Hepatitis A IgM Ab (Nonreactive) Hep Bs Antigen (Nonreactive) Hep B Core IgM Ab (Nonreactive) Hepatitis C Ab Screen (Nonreactive) 01/21/19 01/21/19 01/21/19 Range/Units 20:53 20:53 20:54 WBC (4.3-11.1) K/mcL RBC (3.82-4.97) M/mcL Hgb (11.5-15.4) g/dL Hct (35.3-44.9) % MCV (83.0-100.0) fL MCH (28.0-33.3) pg MCHC (31.6-35.5) g/dL RDW (11.5-14.5) % Plt Count (140-400) K/mcL MPV (9.4-12.4) fL Immature Gran % (0-4) % Seg Neutrophils % % Lymphocytes % % Monocytes % % Eosinophils % % Basophils % % Neutrophils # (1.6-8.9) K/mcL Lymphocytes # (0.6-4.6) K/mcL Monocytes # (0.0-1.3) K/mcL Eosinophils # (0.0-0.6) K/mcL Basophils # (0.0-0.2) K/mcL Polychromasia (Not Present) Macrocytosis (Not Present) PT (9.4-12.1) Seconds INR APTT (26.0-36.0) Seconds VBG pH (7.32-7.42) pH Units VBG pCO2 (41-51) mmHg VBG pO2 (25-50) mmHg VBG HCO3 (21-27) mEq/L Sodium 131 L (136-145) mEq/L Potassium 6.0 H (3.5-5.1) mEq/L Chloride 92 L (98-107) mEq/L Carbon Dioxide 16 L (23-29) mEq/L BUN 61 H (6-20) mg/dL Creatinine 9.39 H (0.60-1.20) mg/dL Est GFR ( Amer) 6 L (> 60) Est GFR (Non-Af Amer) 5 L (> 60) BUN/Creatinine Ratio 6 (6-26) Glucose 148 H (70-105) mg/dL POC Glucose 65 L (70-99) mg/dL Calculated Osmolality 292 (280-300) Lactic Acid (0.5-2.2) mmol/L Calcium 7.6 L (8.6-10.3) mg/dL Magnesium 1.8 (1.6-2.6) mg/dL Total Bilirubin 0.9 (0.3-1.0) mg/dL AST 606 H (13-39) Units/L ALT 146 H (7-52) Units/L Alkaline Phosphatase 129 H (34-104) Units/L Troponin I 0.04 H* (< 0.04) ng/mL Serum Total Protein 6.1 L (6.4-8.9) g/dL Albumin 2.8 L (3.5-5.7) g/dL Globulin 3.3 (2.4-3.5) g/dL Albumin/Globulin Ratio 0.8 L (1.1-2.2) Lipase 10 L (11-82) Units/L Beta-Hydroxybutyric Acd 1.03 H (0.02-0.27) mmol/L Ethyl Alcohol (Less than 10) mg/dL Hepatitis A IgM Ab (Nonreactive) Hep Bs Antigen (Nonreactive) Hep B Core IgM Ab (Nonreactive) Hepatitis C Ab Screen (Nonreactive) 01/21/19 01/21/19 01/21/19 Range/Units 21:16 21:20 22:06 WBC (4.3-11.1) K/mcL RBC (3.82-4.97) M/mcL Hgb (11.5-15.4) g/dL Hct (35.3-44.9) % MCV (83.0-100.0) fL MCH (28.0-33.3) pg MCHC (31.6-35.5) g/dL RDW (11.5-14.5) % Plt Count (140-400) K/mcL MPV (9.4-12.4) fL Immature Gran % (0-4) % Seg Neutrophils % % Lymphocytes % % Monocytes % % Eosinophils % % Basophils % % Neutrophils # (1.6-8.9) K/mcL Lymphocytes # (0.6-4.6) K/mcL Monocytes # (0.0-1.3) K/mcL Eosinophils # (0.0-0.6) K/mcL Basophils # (0.0-0.2) K/mcL Polychromasia (Not Present) Macrocytosis (Not Present) PT (9.4-12.1) Seconds INR APTT (26.0-36.0) Seconds VBG pH 7.22 L (7.32-7.42) pH Units VBG pCO2 38 L (41-51) mmHg VBG pO2 49 (25-50) mmHg VBG HCO3 16 L (21-27) mEq/L Sodium (136-145) mEq/L Potassium (3.5-5.1) mEq/L Chloride (98-107) mEq/L Carbon Dioxide (23-29) mEq/L BUN (6-20) mg/dL Creatinine (0.60-1.20) mg/dL Est GFR ( Amer) (> 60) Est GFR (Non-Af Amer) (> 60) BUN/Creatinine Ratio (6-26) Glucose (70-105) mg/dL POC Glucose 41 L* (70-99) mg/dL Calculated Osmolality (280-300) Lactic Acid 7.8 H* (0.5-2.2) mmol/L Calcium (8.6-10.3) mg/dL Magnesium (1.6-2.6) mg/dL Total Bilirubin (0.3-1.0) mg/dL AST (13-39) Units/L ALT (7-52) Units/L Alkaline Phosphatase (34-104) Units/L Troponin I (< 0.04) ng/mL Serum Total Protein (6.4-8.9) g/dL Albumin (3.5-5.7) g/dL Globulin (2.4-3.5) g/dL Albumin/Globulin Ratio (1.1-2.2) Lipase (11-82) Units/L Beta-Hydroxybutyric Acd (0.02-0.27) mmol/L Ethyl Alcohol (Less than 10) mg/dL Hepatitis A IgM Ab (Nonreactive) Hep Bs Antigen (Nonreactive) Hep B Core IgM Ab (Nonreactive) Hepatitis C Ab Screen (Nonreactive) 01/21/19 01/21/19 01/21/19 Range/Units 22:07 22:13 22:18 WBC (4.3-11.1) K/mcL RBC (3.82-4.97) M/mcL Hgb (11.5-15.4) g/dL Hct (35.3-44.9) % MCV (83.0-100.0) fL MCH (28.0-33.3) pg MCHC (31.6-35.5) g/dL RDW (11.5-14.5) % Plt Count (140-400) K/mcL MPV (9.4-12.4) fL Immature Gran % (0-4) % Seg Neutrophils % % Lymphocytes % % Monocytes % % Eosinophils % % Basophils % % Neutrophils # (1.6-8.9) K/mcL Lymphocytes # (0.6-4.6) K/mcL Monocytes # (0.0-1.3) K/mcL Eosinophils # (0.0-0.6) K/mcL Basophils # (0.0-0.2) K/mcL Polychromasia (Not Present) Macrocytosis (Not Present) PT (9.4-12.1) Seconds INR APTT (26.0-36.0) Seconds VBG pH (7.32-7.42) pH Units VBG pCO2 (41-51) mmHg VBG pO2 (25-50) mmHg VBG HCO3 (21-27) mEq/L Sodium (136-145) mEq/L Potassium (3.5-5.1) mEq/L Chloride (98-107) mEq/L Carbon Dioxide (23-29) mEq/L BUN (6-20) mg/dL Creatinine (0.60-1.20) mg/dL Est GFR ( Amer) (> 60) Est GFR (Non-Af Amer) (> 60) BUN/Creatinine Ratio (6-26) Glucose (70-105) mg/dL POC Glucose 43 L* 46 L* 48 L* (70-99) mg/dL Calculated Osmolality (280-300) Lactic Acid (0.5-2.2) mmol/L Calcium (8.6-10.3) mg/dL Magnesium (1.6-2.6) mg/dL Total Bilirubin (0.3-1.0) mg/dL AST (13-39) Units/L ALT (7-52) Units/L Alkaline Phosphatase (34-104) Units/L Troponin I (< 0.04) ng/mL Serum Total Protein (6.4-8.9) g/dL Albumin (3.5-5.7) g/dL Globulin (2.4-3.5) g/dL Albumin/Globulin Ratio (1.1-2.2) Lipase (11-82) Units/L Beta-Hydroxybutyric Acd (0.02-0.27) mmol/L Ethyl Alcohol (Less than 10) mg/dL Hepatitis A IgM Ab (Nonreactive) Hep Bs Antigen (Nonreactive) Hep B Core IgM Ab (Nonreactive) Hepatitis C Ab Screen (Nonreactive) 01/21/19 01/21/19 01/21/19 Range/Units 22:19 22:37 23:43 WBC (4.3-11.1) K/mcL RBC (3.82-4.97) M/mcL Hgb (11.5-15.4) g/dL Hct (35.3-44.9) % MCV (83.0-100.0) fL MCH (28.0-33.3) pg MCHC (31.6-35.5) g/dL RDW (11.5-14.5) % Plt Count (140-400) K/mcL MPV (9.4-12.4) fL Immature Gran % (0-4) % Seg Neutrophils % % Lymphocytes % % Monocytes % % Eosinophils % % Basophils % % Neutrophils # (1.6-8.9) K/mcL Lymphocytes # (0.6-4.6) K/mcL Monocytes # (0.0-1.3) K/mcL Eosinophils # (0.0-0.6) K/mcL Basophils # (0.0-0.2) K/mcL Polychromasia (Not Present) Macrocytosis (Not Present) PT (9.4-12.1) Seconds INR APTT (26.0-36.0) Seconds VBG pH (7.32-7.42) pH Units VBG pCO2 (41-51) mmHg VBG pO2 (25-50) mmHg VBG HCO3 (21-27) mEq/L Sodium (136-145) mEq/L Potassium (3.5-5.1) mEq/L Chloride (98-107) mEq/L Carbon Dioxide (23-29) mEq/L BUN (6-20) mg/dL Creatinine (0.60-1.20) mg/dL Est GFR ( Amer) (> 60) Est GFR (Non-Af Amer) (> 60) BUN/Creatinine Ratio (6-26) Glucose (70-105) mg/dL POC Glucose 134 H (70-99) mg/dL Calculated Osmolality (280-300) Lactic Acid 7.8 H* (0.5-2.2) mmol/L Calcium (8.6-10.3) mg/dL Magnesium (1.6-2.6) mg/dL Total Bilirubin (0.3-1.0) mg/dL AST (13-39) Units/L ALT (7-52) Units/L Alkaline Phosphatase (34-104) Units/L Troponin I (< 0.04) ng/mL Serum Total Protein (6.4-8.9) g/dL Albumin (3.5-5.7) g/dL Globulin (2.4-3.5) g/dL Albumin/Globulin Ratio (1.1-2.2) Lipase (11-82) Units/L Beta-Hydroxybutyric Acd (0.02-0.27) mmol/L Ethyl Alcohol (Less than 10) mg/dL Hepatitis A IgM Ab Nonreactive (Nonreactive) Hep Bs Antigen Nonreactive (Nonreactive) Hep B Core IgM Ab Nonreactive (Nonreactive) Hepatitis C Ab Screen Nonreactive (Nonreactive) 01/22/19 01/22/19 01/22/19 Range/Units 00:42 00:42 01:16 WBC (4.3-11.1) K/mcL RBC (3.82-4.97) M/mcL Hgb (11.5-15.4) g/dL Hct (35.3-44.9) % MCV (83.0-100.0) fL MCH (28.0-33.3) pg MCHC (31.6-35.5) g/dL RDW (11.5-14.5) % Plt Count (140-400) K/mcL MPV (9.4-12.4) fL Immature Gran % (0-4) % Seg Neutrophils % % Lymphocytes % % Monocytes % % Eosinophils % % Basophils % % Neutrophils # (1.6-8.9) K/mcL Lymphocytes # (0.6-4.6) K/mcL Monocytes # (0.0-1.3) K/mcL Eosinophils # (0.0-0.6) K/mcL Basophils # (0.0-0.2) K/mcL Polychromasia (Not Present) Macrocytosis (Not Present) PT (9.4-12.1) Seconds INR APTT (26.0-36.0) Seconds VBG pH (7.32-7.42) pH Units VBG pCO2 (41-51) mmHg VBG pO2 (25-50) mmHg VBG HCO3 (21-27) mEq/L Sodium 134 L (136-145) mEq/L Potassium 5.3 H (3.5-5.1) mEq/L Chloride 96 L (98-107) mEq/L Carbon Dioxide 13 L (23-29) mEq/L BUN 61 H (6-20) mg/dL Creatinine 9.04 H (0.60-1.20) mg/dL Est GFR ( Amer) 6 L (> 60) Est GFR (Non-Af Amer) 5 L (> 60) BUN/Creatinine Ratio 7 (6-26) Glucose 176 H (70-105) mg/dL POC Glucose (70-99) mg/dL Calculated Osmolality 300 (280-300) Lactic Acid 7.4 H* (0.5-2.2) mmol/L Calcium 8.1 L (8.6-10.3) mg/dL Magnesium (1.6-2.6) mg/dL Total Bilirubin (0.3-1.0) mg/dL AST (13-39) Units/L ALT (7-52) Units/L Alkaline Phosphatase (34-104) Units/L Troponin I (< 0.04) ng/mL Serum Total Protein (6.4-8.9) g/dL Albumin (3.5-5.7) g/dL Globulin (2.4-3.5) g/dL Albumin/Globulin Ratio (1.1-2.2) Lipase (11-82) Units/L Beta-Hydroxybutyric Acd (0.02-0.27) mmol/L Ethyl Alcohol < 10 (Less than 10) mg/dL Hepatitis A IgM Ab (Nonreactive) Hep Bs Antigen (Nonreactive) Hep B Core IgM Ab (Nonreactive) Hepatitis C Ab Screen (Nonreactive) 01/22/19 Range/Units 01:16 WBC (4.3-11.1) K/mcL RBC (3.82-4.97) M/mcL Hgb (11.5-15.4) g/dL Hct (35.3-44.9) % MCV (83.0-100.0) fL MCH (28.0-33.3) pg MCHC (31.6-35.5) g/dL RDW (11.5-14.5) % Plt Count (140-400) K/mcL MPV (9.4-12.4) fL Immature Gran % (0-4) % Seg Neutrophils % % Lymphocytes % % Monocytes % % Eosinophils % % Basophils % % Neutrophils # (1.6-8.9) K/mcL Lymphocytes # (0.6-4.6) K/mcL Monocytes # (0.0-1.3) K/mcL Eosinophils # (0.0-0.6) K/mcL Basophils # (0.0-0.2) K/mcL Polychromasia (Not Present) Macrocytosis (Not Present) PT 45.8 H* (9.4-12.1) Seconds INR 4.0 APTT 40.4 H (26.0-36.0) Seconds VBG pH (7.32-7.42) pH Units VBG pCO2 (41-51) mmHg VBG pO2 (25-50) mmHg VBG HCO3 (21-27) mEq/L Sodium (136-145) mEq/L Potassium (3.5-5.1) mEq/L Chloride (98-107) mEq/L Carbon Dioxide (23-29) mEq/L BUN (6-20) mg/dL Creatinine (0.60-1.20) mg/dL Est GFR ( Amer) (> 60) Est GFR (Non-Af Amer) (> 60) BUN/Creatinine Ratio (6-26) Glucose (70-105) mg/dL POC Glucose (70-99) mg/dL Calculated Osmolality (280-300) Lactic Acid (0.5-2.2) mmol/L Calcium (8.6-10.3) mg/dL Magnesium (1.6-2.6) mg/dL Total Bilirubin (0.3-1.0) mg/dL AST (13-39) Units/L ALT (7-52) Units/L Alkaline Phosphatase (34-104) Units/L Troponin I (< 0.04) ng/mL Serum Total Protein (6.4-8.9) g/dL Albumin (3.5-5.7) g/dL Globulin (2.4-3.5) g/dL Albumin/Globulin Ratio (1.1-2.2) Lipase (11-82) Units/L Beta-Hydroxybutyric Acd (0.02-0.27) mmol/L Ethyl Alcohol (Less than 10) mg/dL Hepatitis A IgM Ab (Nonreactive) Hep Bs Antigen (Nonreactive) Hep B Core IgM Ab (Nonreactive) Hepatitis C Ab Screen (Nonreactive) - Radiology Data Radiology results reviewed: Yes I reviewed the patient's radiology results. Chest X-Ray 01/21/19 20:34 IMPRESSION: Stable mild left lower lobe opacity which may represent atelectasis versus possible mild pneumonia. D/ / 01/21/2019 22:11:01 Teodoro Foley MD / [email or web address] Interpreting Provider: Teodoro Foley MD Abdomen/Pelvis CT 01/21/19 22:13 IMPRESSION: 1. Wall thickening of the colon. Correlate with any clinical findings of colitis 2. Edema around the head of the pancreas is likely due to a generalized edema state. Recommend clinical exclusion of pancreatitis 3. Chronic atrophic kidneys 4. Colonic diverticulosis 5. Malpositioned IUD 6. Anasarca and ascites 7. Pleural thickening/chronic small pleural effusions with basilar atelectasis D/ / Cody Adam MD / Cody Adam MD Interpreting Provider: Cody Adam MD
[2019-01-21] MEDS: *HR* Dextrose 50 % in Water (Syg) 50 ML SYRINGE IVP PRN ×2 (20:49→22:49)
[2019-01-21] MEDS ORDERED: *HR* Promethazine 25 MG/ML VIAL ONE (20:50)
[2019-01-21] MEDS ORDERED: *HR* Promethazine 25 MG/ML VIAL IVP ONE (21:11)
[2019-01-21 21:18] LABS: Basophils % 0.2 %; Eosinophils # 0.1 K/mcL (0.0-0.6); Eosinophils % 0.5 %; Hematocrit 26.4 % (35.3-44.9); Hemoglobin 8.5 g/dL (11.5-15.4); Immature Granulocytes % 0.9 % (0-4); Lymphocytes # 0.7 K/mcL (0.6-4.6); Lymphocytes % 7.7 %; Mean Corpuscular HGB Conc 32.2 g/dL (31.6-35.5); Mean Corpuscular Volume 111.9 fL (83.0-100.0); Mean Platelet Volume 10.8 fL (9.4-12.4); Monocytes # 0.6 K/mcL (0.0-1.3); Monocytes % 6.9 %; Neutrophils # 7.7 K/mcL (1.6-8.9); Platelet Count 173 K/mcL (140-400); Red Blood Count 2.36 M/mcL (3.82-4.97); Red Cell Distribution Width 16.9 % (11.5-14.5); Segmented Neutrophils % 83.8 %
[2019-01-21 21:19] LABS: VBG HCO3 16 mEq/L (21-27); VBG PCO2 38 mmHg (41-51); VBG PH 7.22 pH Units (7.32-7.42); VBG PO2 49 mmHg (25-50)
[2019-01-21 21:19] LABS: White Blood Count 9.2 K/mcL (4.3-11.1)
[2019-01-21 21:41] LABS: Macrocytosis Present (Not Present); Polychromasia 1+ (Not Present)
[2019-01-21] MEDS: D10% in Water 500 ML IVC SCH (21:45)
[2019-01-21] MEDS: D10% in Water 500 ML IV SOLUTION IVC ONE (21:50)
[2019-01-21 21:51] LABS: Alanine Aminotransferase 146 Units/L (7-52); Albumin 2.8 g/dL (3.5-5.7); Albumin/Globulin Ratio 0.8 (1.1-2.2); Alkaline Phosphatase 129 Units/L (34-104); Aspartate Amino Transferase 606 Units/L (13-39); BUN/Creatinine Ratio 6 (6-26); Bilirubin,Total 0.9 mg/dL (0.3-1.0); Blood Urea Nitrogen 61 mg/dL (6-20); Calcium 7.6 mg/dL (8.6-10.3); Carbon Dioxide 16 mEq/L (23-29); Chloride 92 mEq/L (98-107); Globulin 3.3 g/dL (2.4-3.5); Glucose 148 mg/dL (70-105); Lipase 10 Units/L (11-82); Magnesium 1.8 mg/dL (1.6-2.6); Osmolality,Calculated 292 (280-300); Sodium 131 mEq/L (136-145); Total Protein 6.1 g/dL (6.4-8.9); Troponin I 0.04 ng/mL (< 0.04); eGFR For African Americans 6 (> 60); eGFR For Non-African Americans 5 (> 60)
[2019-01-21] MEDS ORDERED: 0.9 % Sodium Chloride 1,000 ML ONE (21:51)
[2019-01-21] MEDS ORDERED: levoFLOXacin 750 MG/150 ML 750 MG/150 ML BAG IVPB ONE (21:58)
[2019-01-21] MEDS ORDERED: Piperacillin/Tazobactam 3.375 GM in Water for inj. (sterile) 20 ML IVP ONE (21:58)
[2019-01-21] MEDS ORDERED: 0.9 % Sodium Chloride 1,000 ML IVC SCH (22:00)
[2019-01-21] MEDS ORDERED: Albuterol 2.5 MG/3 ML NEBULIZER IH ONE (22:08)
[2019-01-21] MEDS ORDERED: Sodium Bicarbonate 50 MEQ/50 ML VIAL IVP ONE (22:15)
[2019-01-21] MEDS ORDERED: Albuterol 2.5 MG/3 ML NEBULIZER ONE (22:25)
[2019-01-21] MEDS: 0.9 % Sodium Chloride 1,000 ML IVC ONE (23:10)
[2019-01-21] MEDS: Calcium Gluconate 1gm/50mL 1 GM/50 ML BAG IVPB ONE (23:54)
[2019-01-22] MEDS: D10% in Water 500 ML IVC SCH (00:12)
[2019-01-22] MEDS ORDERED: 0.9 % Sodium Chloride 1,000 ML IVC SCH (00:30)
[2019-01-22] MEDS: D10% in Water 500 ML IV SOLUTION IVC ONE (00:30)
[2019-01-22] MEDS: Calcium Gluconate 1gm/50mL 1 GM/50 ML BAG IVPB ONE (00:31)
[2019-01-22] MEDS ORDERED: *HR* Dextrose 50 % in Water (Syg) 50 ML SYRINGE IVC ONE (01:17)
--- NOTE | 2019-01-22 01:25 | Internal Med History&Physical ---
<Carlos Busch - Last Filed: 01/22/19 03:38> Date of Encounter: 01/22/19 Time of Encounter: 01:16 Internal Medicine - H&P: HPI Chief complaint: Low blood sugar Admitted From: Emergency Dept Plans for Post Hospital Care: Home History of present illness: Ms. Alexis is a 44 year old female ESRD on TTS dialysis, hyperlipidemia, hypothyroidism, atrial fibrillation, asthma, type 2 DM, GERD, HTN, CAD presents the emergency department with complaint of low blood sugar. Patient states that this evening she began to feel "funny". Patient does have a chronic history of hypoglycemia with multiple hospital admissions due to altered mental status, infection, noncompliance with dialysis. Patient states that she has been drinking well but not been eating very much secondary to nausea. She otherwise denies any symptoms including fevers, chills, chest pains, shortness of breath, nausea, vomiting, changes in bowel movements or urinary symptoms. She states that she has been compliant with dialysis and is normally Monday, , Monday. She did finish a full session on Monday. She was recently seen at this facility on 01/17/19. At this visit, patient was complaining of lingering cough, intermittent fevers for several weeks. Patient was originally scheduled to be admitted to this facility for suspected hospital- acquired pneumonia, however patient refused admission at that time. She was given a dose of Levaquin as well as Omnicef. Upon arrival to this facility, vital signs are significant for a blood pressure 160/57. Blood sugar on arrival was 10. Laboratory results show a baseline macrocytic anemia, ABG showing partially compensated anion gap metabolic acidosis, sodium 131, potassium 6.0, chloride 92, bicarbonate 16, BUNs/creatinine consistent with dialysis. Lactic acid elevated at 7.8, calcium 7.6, AST 606, ALT 146, alkaline phosphatase 129, troponin 0.04, lipase 10, beta hydroxybutyric acid 1.03. CT of the abdomen was obtained and showed wall thickening of the colon, edema, diverticulosis, anasarca, pleural effusions with atelectasis. Patient was given 2 L normal saline bolus, albuterol, calcium gluconate, D10W and started on a Cardizem drip for an EKG reading atrial fibrillation with rapid ventricular response. She was given a one-time dose of Levaquin, Zosyn, vancomycin and magnesium. She was also given 4 A of sodium bicarbonate and nephrology cognos consultant was contacted. Nephrology recommends admission to the intensive care unit with close monitoring and need for dialysis once stabilized. At time of my interview, patient is resting comfortably in bed. She states she is currently not experiencing any symptoms. Blood sugars now improved. Past medical history: As above Past surgical history: Appendectomy, cholecystectomy, thyroidectomy, transplant, tubal ligation, fistula Social history: Denies Family history: Cardiac/respiratory disease in father Past Med Surg Social Fam HX - Past Medical History Medical history: asthma, atrial fibrillation, diabetes, dialysis, GI bleed, hyperlipidemia, hypertension, renal disease, thyroid disease Additional medical history: ANEMIA, BLEEDING ULCER,. KIDNEY DIALYSIS Psychiatric history: no psych history - Past Surgical History Surgical History: appendectomy, cholecystectomy, thyroidectomy, transplant, other Additional surgical history: KIDNEY TRANSPLANT 2007, TUBAL LIGATION, left antecubital AV fistula, multiple surgical and endovascular interventions for the left antecubital AV fistula, and placement of a left upper arm AV shunt - Social History Smoking Status: Never smoker Smokeless Tobacco Status: No Alcohol use: none Drug use: none - Family History Father Adopted: No Family Member Ethnicity: Non- Living Status: Hx Family Cardiac Disorders: Yes Hx Family Respiratory Disorders: Yes Hx Family Cancer: Yes Hx Family GI Disorders: No Hx Family Endocrine Disorder: Yes Hx Family Neuromuscular Disorders: No Hx Family Neurologic Disorders: No Hx Family HEENT Disorders: No Hx Family Autoimmune Disorders: No Mother Adopted: No Living Status: Hx Family Cardiac Disorders: Yes Hx Family Respiratory Disorders: No Hx Family Cancer: Yes Hx Family GI Disorders: No Hx Family Endocrine Disorder: No Hx Family Neuromuscular Disorders: No Hx Family Neurologic Disorders: No Hx Family HEENT Disorders: No Hx Family Autoimmune Disorders: No Internal Medicine - H&P: Meds Cholecalciferol (Vitamin D3) [Vitamin D3] 50,000 units PO QWEEK 12/28/18 [History] Lidocaine/Prilocaine [Emla] 1 appl TP AD 12/28/18 [History] Albuterol Sulfate [Proventil Inhaler] 2 puff IH Q4H PRN 30 Days #2 inhaler 01/01/19 [Rx] Apixaban [Eliquis] 5 mg PO BID 30 Days #60 tablet 01/01/19 [Rx] Atorvastatin [Lipitor] 40 mg PO HS 30 Days #30 tablet 01/01/19 [Rx] Budesonide/Formoterol 160/4.5 [Symbicort 160/4.5] 2 puff IH BIDR 30 Days #2 inh 01/01/19 [Rx] Folic Acid 1 mg PO DAILY 30 Days #30 tablet 01/01/19 [Rx] Levothyroxine Sodium [Euthyrox] 100 mcg PO DAILY 30 Days #30 tablet 01/01/19 [Rx] Metoclopramide [Reglan] 5 mg PO 0800,1700 30 Days #60 tablet 01/01/19 [Rx] Metoprolol Succinate [Toprol Xl] 25 mg PO DAILY 30 Days #30 tab.er.24h 01/01/19 [Rx] Omeprazole [PriLOSEC] 20 mg PO DAILY 30 Days #30 capsule.dr 01/01/19 [Rx] Simethicone [Gas-X] 80 mg PO TID PRN 30 Days #90 tab.chew 01/01/19 [Rx] cloNIDine HCl [CloNIDine HCl] 0.1 mg PO BID 30 Days #60 tablet 01/01/19 [Rx] hydrALAZINE [HydrALAZINE] 50 mg PO BID 30 Days #60 tablet 01/01/19 [Rx] Allergy/AdvReac Type Severity Reaction Status Date / Time Warfarin [From Coumadin] Allergy Anaphylaxis Verified 01/21/19 20:32 heparin AdvReac Severe Unresponsiv Verified 01/21/19 20:32 e All Systems PM: A 10-system review of systems was performed and is negative for pertinent findings except as documented above in the HPI. Review of systems: - Constitutional: Denies fevers, chills, weight loss, generalized fatigue - Head/Neck: Denies PARKER - EENT: Denies vision changes/blurriness, rhinorrhea, congestion, sore throat - CVS: Denies chest pain, palpitations, DAVID, orthopnea, edema, PND, - Pulm: Denies SOB, cough, sputum, hematemesis, wheezing - GI: Admits to nausea. Denies abdominal pain, vomiting, diarrhea, constipation, melena - : Denies dysuria, increased frequency, urgency, hematuria, - MSK: Admits to back pain. Denies joint pain, limited ROM - Skin: Denies rashes, ulcers, color changes, - Neuro: Denies PARKER, paresthesias, focal deficits, ataxia, - Constitutional Vitals: Temp Pulse Resp BP Pulse Ox 97.5 F L 94 16 134/78 98 01/21/19 20:32 01/21/19 23:49 01/21/19 23:49 01/21/19 23:49 01/21/19 23:49 Exam: Gen.: Vitals noted. No acute distress. Appears mildly confused. AAOx3, resting comfortably in bed. Unkempt. HEENT: PERRL/EOMI, oropharynx clear, Normocephalic, atraumatic, MMM Neck: Supple. No adenopathy. No thyroid nodules. Cardiac: Tachycardic, palpable thrill, , +S1/S2, 2+ BLE edema R>L Pulmonary: CTA bilaterally, no wheezes, rales or rhonchi, equal chest expansion, unlabored breathing Abdomen: soft, nontender, BS noted, no guarding, no palpable HSM Skin: warm and dry, no visible lesions. MSK: ROM not assessed, no joint swelling noted, gait no assessed while in bed. Non tender calf or clubbing Neuro: A&Ox3, moves all extremities, no focal deficits, sensation intact Psych: Appropriate mood and behavior, AOx3 Internal Med - H&P Results - Labs CBC & Chem 7: 01/21/19 20:53 01/22/19 00:42 Labs: Short CBC 01/21/19 01/21/19 01/21/19 Range/Units 20:53 20:53 20:53 WBC 9.2 D (4.3-11.1) K/mcL RBC 2.36 L (3.82-4.97) M/mcL Hgb 8.5 L (11.5-15.4) g/dL Hct 26.4 L (35.3-44.9) % MCV 111.9 H (83.0-100.0) fL MCH 36.0 H (28.0-33.3) pg MCHC 32.2 (31.6-35.5) g/dL RDW 16.9 H (11.5-14.5) % Plt Count 173 (140-400) K/mcL MPV 10.8 (9.4-12.4) fL Immature Gran % 0.9 (0-4) % Seg Neutrophils % 83.8 % Lymphocytes % 7.7 % Monocytes % 6.9 % Eosinophils % 0.5 % Basophils % 0.2 % Neutrophils # 7.7 (1.6-8.9) K/mcL Lymphocytes # 0.7 (0.6-4.6) K/mcL Monocytes # 0.6 (0.0-1.3) K/mcL Eosinophils # 0.1 (0.0-0.6) K/mcL Basophils # 0.0 (0.0-0.2) K/mcL Polychromasia 1+ A (Not Present) Macrocytosis Present A (Not Present) VBG pH (7.32-7.42) pH Units VBG pCO2 (41-51) mmHg VBG pO2 (25-50) mmHg VBG HCO3 (21-27) mEq/L Sodium 131 L (136-145) mEq/L Potassium 6.0 H (3.5-5.1) mEq/L Chloride 92 L (98-107) mEq/L Carbon Dioxide 16 L (23-29) mEq/L BUN 61 H (6-20) mg/dL Creatinine 9.39 H (0.60-1.20) mg/dL Est GFR ( Amer) 6 L (> 60) Est GFR (Non-Af Amer) 5 L (> 60) BUN/Creatinine Ratio 6 (6-26) Glucose 148 H (70-105) mg/dL Calculated Osmolality 292 (280-300) Lactic Acid (0.5-2.2) mmol/L Calcium 7.6 L (8.6-10.3) mg/dL Magnesium 1.8 (1.6-2.6) mg/dL Total Bilirubin 0.9 (0.3-1.0) mg/dL AST 606 H (13-39) Units/L ALT 146 H (7-52) Units/L Alkaline Phosphatase 129 H (34-104) Units/L Troponin I 0.04 H* (< 0.04) ng/mL Serum Total Protein 6.1 L (6.4-8.9) g/dL Albumin 2.8 L (3.5-5.7) g/dL Globulin 3.3 (2.4-3.5) g/dL Albumin/Globulin Ratio 0.8 L (1.1-2.2) Lipase 10 L (11-82) Units/L Beta-Hydroxybutyric Acd 1.03 H (0.02-0.27) mmol/L Ethyl Alcohol (Less than 10) mg/dL 01/21/19 01/21/19 01/21/19 Range/Units 21:16 21:20 22:19 WBC (4.3-11.1) K/mcL RBC (3.82-4.97) M/mcL Hgb (11.5-15.4) g/dL Hct (35.3-44.9) % MCV (83.0-100.0) fL MCH (28.0-33.3) pg MCHC (31.6-35.5) g/dL RDW (11.5-14.5) % Plt Count (140-400) K/mcL MPV (9.4-12.4) fL Immature Gran % (0-4) % Seg Neutrophils % % Lymphocytes % % Monocytes % % Eosinophils % % Basophils % % Neutrophils # (1.6-8.9) K/mcL Lymphocytes # (0.6-4.6) K/mcL Monocytes # (0.0-1.3) K/mcL Eosinophils # (0.0-0.6) K/mcL Basophils # (0.0-0.2) K/mcL Polychromasia (Not Present) Macrocytosis (Not Present) VBG pH 7.22 L (7.32-7.42) pH Units VBG pCO2 38 L (41-51) mmHg VBG pO2 49 (25-50) mmHg VBG HCO3 16 L (21-27) mEq/L Sodium (136-145) mEq/L Potassium (3.5-5.1) mEq/L Chloride (98-107) mEq/L Carbon Dioxide (23-29) mEq/L BUN (6-20) mg/dL Creatinine (0.60-1.20) mg/dL Est GFR ( Amer) (> 60) Est GFR (Non-Af Amer) (> 60) BUN/Creatinine Ratio (6-26) Glucose (70-105) mg/dL Calculated Osmolality (280-300) Lactic Acid 7.8 H* 7.8 H* (0.5-2.2) mmol/L Calcium (8.6-10.3) mg/dL Magnesium (1.6-2.6) mg/dL Total Bilirubin (0.3-1.0) mg/dL AST (13-39) Units/L ALT (7-52) Units/L Alkaline Phosphatase (34-104) Units/L Troponin I (< 0.04) ng/mL Serum Total Protein (6.4-8.9) g/dL Albumin (3.5-5.7) g/dL Globulin (2.4-3.5) g/dL Albumin/Globulin Ratio (1.1-2.2) Lipase (11-82) Units/L Beta-Hydroxybutyric Acd (0.02-0.27) mmol/L Ethyl Alcohol (Less than 10) mg/dL 01/22/19 Range/Units 00:42 WBC (4.3-11.1) K/mcL RBC (3.82-4.97) M/mcL Hgb (11.5-15.4) g/dL Hct (35.3-44.9) % MCV (83.0-100.0) fL MCH (28.0-33.3) pg MCHC (31.6-35.5) g/dL RDW (11.5-14.5) % Plt Count (140-400) K/mcL MPV (9.4-12.4) fL Immature Gran % (0-4) % Seg Neutrophils % % Lymphocytes % % Monocytes % % Eosinophils % % Basophils % % Neutrophils # (1.6-8.9) K/mcL Lymphocytes # (0.6-4.6) K/mcL Monocytes # (0.0-1.3) K/mcL Eosinophils # (0.0-0.6) K/mcL Basophils # (0.0-0.2) K/mcL Polychromasia (Not Present) Macrocytosis (Not Present) VBG pH (7.32-7.42) pH Units VBG pCO2 (41-51) mmHg VBG pO2 (25-50) mmHg VBG HCO3 (21-27) mEq/L Sodium (136-145) mEq/L Potassium (3.5-5.1) mEq/L Chloride (98-107) mEq/L Carbon Dioxide (23-29) mEq/L BUN (6-20) mg/dL Creatinine (0.60-1.20) mg/dL Est GFR ( Amer) (> 60) Est GFR (Non-Af Amer) (> 60) BUN/Creatinine Ratio (6-26) Glucose (70-105) mg/dL Calculated Osmolality (280-300) Lactic Acid (0.5-2.2) mmol/L Calcium (8.6-10.3) mg/dL Magnesium (1.6-2.6) mg/dL Total Bilirubin (0.3-1.0) mg/dL AST (13-39) Units/L ALT (7-52) Units/L Alkaline Phosphatase (34-104) Units/L Troponin I (< 0.04) ng/mL Serum Total Protein (6.4-8.9) g/dL Albumin (3.5-5.7) g/dL Globulin (2.4-3.5) g/dL Albumin/Globulin Ratio (1.1-2.2) Lipase (11-82) Units/L Beta-Hydroxybutyric Acd (0.02-0.27) mmol/L Ethyl Alcohol < 10 (Less than 10) mg/dL BMP 01/21/19 20:53 Sodium 131 L Potassium 6.0 H Chloride 92 L Carbon Dioxide 16 L BUN 61 H Creatinine 9.39 H Glucose 148 H Calcium 7.6 L Cardiac Enzymes 01/21/19 Range/Units 20:53 Troponin I 0.04 H* (< 0.04) ng/mL Liver Function 01/21/19 Range/Units 20:53 Total Bilirubin 0.9 (0.3-1.0) mg/dL AST 606 H (13-39) Units/L ALT 146 H (7-52) Units/L Alkaline Phosphatase 129 H (34-104) Units/L Albumin 2.8 L (3.5-5.7) g/dL - ABG Interpretation ABG results: 01/21/19 21:16 VBG pH 7.22 L VBG pCO2 38 L VBG pO2 49 VBG HCO3 16 L - Impressions ITS Impressions Chest X-Ray 01/21/19 20:34 IMPRESSION: Stable mild left lower lobe opacity which may represent atelectasis versus possible mild pneumonia. D/ / 01/21/2019 22:11:01 Teodoro Foley MD / [email or web address] Interpreting Provider: Teodoro Foley MD Abdomen/Pelvis CT 01/21/19 22:13 IMPRESSION: 1. Wall thickening of the colon. Correlate with any clinical findings of colitis 2. Edema around the head of the pancreas is likely due to a generalized edema state. Recommend clinical exclusion of pancreatitis 3. Chronic atrophic kidneys 4. Colonic diverticulosis 5. Malpositioned IUD 6. Anasarca and ascites 7. Pleural thickening/chronic small pleural effusions with basilar atelectasis D/ / Cody Adam MD / Cody Adam MD Interpreting Provider: Cody Adam MD - Assessment and Plan (1) Hypoglycemia Current Visit: Yes Status: Acute Assessment and plan: - Presented with glucose of 10 - During previous hospitalization, patient was noted to have hypoglycemic episodes due to poor oral intake as well as suspected poor glycogen reserves - Patient admits to poor oral intake - Patient's blood glucose has recovered to the 130s with D10W - Hemoglobin A1c of 5.0% and August 2018 Plan - Continue monitor with Q2 hour checks - Continue D10W until patient is able to have adequate oral intake - Will order insulin level, proinsulin, c-peptide - Consider cortisol level, previously wnl. - We will start renal diet, encourage intake (2) Atrial fibrillation with RVR Current Visit: Yes Status: Acute Assessment and plan: - Patient presents to normal sinus rhythm however during course emergency room stay, patient did progress into atrial fibrillation with RVR - Patient in 160s on telemetry during my interview - She does have a known history and is anticoagulated on eliquis at home - Started on Cardizem drip emergency room - Etiology of exacerbation may be related to hypoglycemia Plan - Continue Cardizem drip, blood pressure stable at this time - Treat underlying illness as elsewhere documented (3) Metabolic acidosis Current Visit: Yes Status: Acute Assessment and plan: - Acute on chronic in nature - Patient presented with bicarbonate of 16 which is decreased from previous visits - Noted to have high anion gap metabolic acidosis of 23 - Etiology is likely multifactorial including lactic acidosis, ketosis - Underlying etiology is suspected to be severe hypoglycemia which in turn causing lactic acidosis and stimulated ketosis. - Patient is also end-stage renal disease. Patient admits to compliance with recent hemodialysis sessions - Nephrology has been contacted in the emergency department and will follow for possible hemodialysis - She is status post 4 A of sodium bicarbonate - Blood sugar improved to 130s - Most recent lactic acid improved from 7.8 to 7.4 Plan - Repeat BMP now to assess for acidosis - Trend lactic acid - Patient receiving fluids in the form of D10W which showed improved both hypoglycemia as well as lactic acidosis - When labs return, we will consider adding sodium bicarbonate to fluids - Appreciate nephrology recommendations (4) ESRD (end stage renal disease) Current Visit: Yes Status: Chronic Assessment and plan: - Known history of ESRD on TTS dialysis - Patient does follow with [facility], however patient has a history of noncompliance - Her CT scan that she obtained emergency department does show significant anasarca, which is not uncommon for patient - Nephrology following Plan - Further dialysis per nephrology team - We will trend labs (5) Lactic acidosis Current Visit: Yes Status: Acute Assessment and plan: - As above for metabolic acidosis - Etiology suspected to be hypoglycemia however infection and/or hypoxia cannot be ruled out - Patient does not need sirs criteria at this time however she was recently seen emergency department and partially treated for a suspected pneumonia - She has a very significant history of multidrug-resistant organisms including bacteremia, wounds infection, pneumonia - Depending on further workup, patient may very well benefit from an infectious disease consultation (6) Hypertension Current Visit: Yes Status: Chronic Assessment and plan: On Cardizem drip for A. fib as above Qualifiers: Hypertension type: essential hypertension Qualified Code(s): I10 - Essential (primary) hypertension (7) Hypoalbuminemia Current Visit: Yes Status: Chronic Assessment and plan: Chronic, likely related to malnutrition Albumin noted to be 2.8 Likely contributing to patient's fluid overload status We will encourage oral intake and consider albumin if patient's blood pressure should decrease (8) Pneumonia Current Visit: No Status: Suspected Assessment and plan: - Patient was on June be seen in this emergency room on 01/17/19 and given a prescription for Cefdinir and Levaquin - Patient is not having complaints of cough, fevers at this time - We will hold off antibiotics at this time - Order procalcitonin Qualifiers: Pneumonia type: due to unspecified organism Laterality: unspecified laterality Lung location: unspecified part of lung Qualified Code(s): J18.9 - Pneumonia, unspecified organism (9) Anemia Current Visit: Yes Status: Chronic Assessment and plan: - Noted hemoglobin of 8.5 on admission - Patient has a baseline hemoglobin ranging from 6-9 - There are no signs or symptoms of bleeding at this time - We will however obtain a CT of the abdomen with contrast given the patient's lactic acidosis and anemia may be a result of ischemic colitis Qualifiers: Anemia type: due to chronic kidney disease Chronic kidney disease stage: on chronic dialysis Qualified Code(s): N18.6 - End stage renal disease; D63.1 - Anemia in chronic kidney disease; Z99.2 - Dependence on renal dialysis (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 Assessment and plan: Chronic per history with complication of multiple infections - Nephrology following, appreciate recommendations (11) History of kidney transplant Current Visit: Yes Status: Chronic Assessment and plan: Per patient history, no antirejection meds noted on home medications (12) Supratherapeutic INR Current Visit: Yes Status: Acute Assessment and plan: - INR of 4.0 on presentation today - Patient is anticoagulated at home on eliquis - Allergy to coumadin - Patient has no known history of cirrhosis or liver disease - CT of the abdomen shows edema around the colon and pancreas but does not note any cirrhotic appearance - No signs or symptoms of bleeding at this time Plan - Continue monitor (13) Hyponatremia Current Visit: Yes Status: Chronic Assessment and plan: Sodium noted to be 134 on most recent lab draws Patient does have a history of hyponatremia likely related to fluid overload We will continue to monitor at this time, dialysis per nephrology (14) History of MDR Acinetobacter baumannii infection Current Visit: Yes Status: Chronic (15) History of MDR Pseudomonas aeruginosa infection Current Visit: Yes Status: Chronic (16) Hyperkalemia Current Visit: Yes Status: Chronic Assessment and plan: K of 6.0 on presentation - In the setting of ESRD - EKG shows mildly peaked T-waves in anterior leads - Patient asymptomatic - Given calcium in ED - Improved to 5.4 after fluids (17) DVT prophylaxis Current Visit: Yes Status: Acute Assessment and plan: on home eliquis, will resume once confirmed. - Time Spent With Patient Total time spent is greater than 50% in coordination of care (as documented) at patient's floor/unit and/or counseling patient: <Iman Addison - Last Filed: 01/24/19 12:39> Date of Encounter: 01/22/19 Internal Medicine - H&P: HPI History of present illness: Ms. Alexis is a 44 year old female All Systems PM: A 10-system review of systems was performed and is negative for pertinent findings except as documented above in the HPI. - Constitutional Vitals: Temp Pulse Resp BP Pulse Ox 99.1 F 68 18 120/103 96 01/24/19 09:30 01/24/19 07:30 01/24/19 09:30 01/24/19 11:45 01/24/19 07:30 Internal Med - H&P Results - Labs CBC & Chem 7: 01/24/19 04:33 01/24/19 04:33 Labs: Short CBC 01/24/19 Range/Units 04:33 WBC 5.5 (4.3-11.1) K/mcL Hgb 7.9 L (11.5-15.4) g/dL Hct 24.6 L (35.3-44.9) % Plt Count 106 L (140-400) K/mcL BMP 01/24/19 04:33 Sodium 129 L Potassium 4.5 Chloride 93 L Carbon Dioxide 23 BUN 29 H Creatinine 5.52 H Glucose 80 Calcium 7.3 L Liver Function 01/24/19 Range/Units 04:33 Total Bilirubin 0.6 (0.3-1.0) mg/dL AST 221 H (13-39) Units/L ALT 140 H (7-52) Units/L Alkaline Phosphatase 143 H (34-104) Units/L Albumin 2.6 L (3.5-5.7) g/dL - ABG Interpretation ABG results: 01/21/19 21:16 VBG pH 7.22 L VBG pCO2 38 L VBG pO2 49 VBG HCO3 16 L - Impressions ITS Impressions Chest X-Ray 01/21/19 20:34 IMPRESSION: Stable mild left lower lobe opacity which may represent atelectasis versus possible mild pneumonia. D/ / 01/21/2019 22:11:01 Teodoro Foley MD / [facility] Interpreting Provider: Teodoro Foley MD Abdomen/Pelvis CT 01/21/19 22:13 IMPRESSION: 1. Wall thickening of the colon. Correlate with any clinical findings of colitis 2. Edema around the head of the pancreas is likely due to a generalized edema state. Recommend clinical exclusion of pancreatitis 3. Chronic atrophic kidneys 4. Colonic diverticulosis 5. Malpositioned IUD 6. Anasarca and ascites 7. Pleural thickening/chronic small pleural effusions with basilar atelectasis D/ / Cody Adam MD / Cody Adam MD Interpreting Provider: Cody Adam MD Abdomen/Pelvis CT 01/22/19 01:27 IMPRESSION: 1. Heterogeneous enhancement of the liver and periportal edema compatible with hepatocellular disease. No focal liver lesion. No evidence of portal vein thrombosis. Hepatic veins not evaluated due to bolus timing 2. Wall thickening of the colon. Correlate with any clinical findings of colitis 3. Ascites and anasarca 4. Additional findings as discussed in the body of the report and CT scan performed 1 day earlier D/ / Cody Adam MD / Cody Adam MD Interpreting Provider: Cody Adam MD Liver Ultrasound 01/23/19 08:00 IMPRESSION: Slightly increased echogenicity of the liver with smooth liver capsule. Findings can be seen in the setting of hepatocellular disease including steatosis. No focal masses. Status post cholecystectomy. Mild prominence of the common bile duct up to 8 mm, nonspecific in the setting of prior cholecystectomy. Trace abdominal ascites. D/ / 01/23/2019 09:13:19 Maris Latham MD / [facility] [email or web address] Interpreting Provider: Maris Latham MD - Assessment and Plan (1) Afib Current Visit: Yes Status: Chronic Qualifiers: Atrial fibrillation type: paroxysmal Qualified Code(s): I48.0 - Paroxysmal atrial fibrillation (2) Hypoglycemia Current Visit: Yes Status: Acute (3) Metabolic acidosis Current Visit: Yes Status: Acute (4) Hyperkalemia Current Visit: Yes Status: Acute (5) Hepatocellular damage Current Visit: Yes Status: Acute - Time Spent With Patient Total time spent is greater than 50% in coordination of care (as documented) at patient's floor/unit and/or counseling patient: - Attending Attestation I performed a history and physical examination of the patient and discussed his management with the resident. I reviewed the residents note and agree with the documented findings and plan of care.
[2019-01-22] MEDS ORDERED: Isovue-370 500 ML BOTTLE IVP ONE (01:27)
--- NOTE | 2019-01-22 01:29 | Emergency Department Note ---
Disposition Clinical Impression: Lactic acidosis, ESRD (end stage renal disease), Hypoglycemia, Cardiac dysrhythmia, Nonsustained ventricular tachycardia, Hyperkalemia Pneumonia involving left lung Qualifiers: Pneumonia type: due to unspecified organism Lung location: unspecified part of lung Qualified Code(s): J18.9 - Pneumonia, unspecified organism Afib Qualifiers: Atrial fibrillation type: paroxysmal Qualified Code(s): I48.0 - Paroxysmal atrial fibrillation Disposition: Admitted As Inpatient Condition: Critical Time of Disposition: 01:00 General Adult HPI - General Chief complaint: ED General Medical Stated complaint: low blood sugar Time Seen by Provider: 01/21/19 20:28 Source: patient, family, EMS Mode of arrival: EMS Limitations: no limitations - History of Present Illness Location: other (generalized malaise) Pain Scale: 8 Quality: dull Improves with: nothing Worsens with: nothing Associated symptoms: Reports: cough, loss of appetite, malaise. Denies: confusion, chest pain, diaphoresis, fever/chills, headaches, nausea/vomiting, rash, seizure, shortness of breath, syncope, weakness Treatments Prior to Arrival: other (D50 per EMS for glucose of 30 - increased to 80 per EMS) - Related Data Home Medications Medication Instructions Recorded Confirmed Cholecalciferol (Vitamin D3) 50,000 units PO QWEEK 12/28/18 01/17/19 [Vitamin D3] Lidocaine/Prilocaine [Emla] 1 appl TP AD 12/28/18 01/17/19 Previous Rx's Medication Instructions Recorded Albuterol Sulfate [Proventil 2 puff IH Q4H PRN 30 Days #2 01/01/19 Inhaler] inhaler Apixaban [Eliquis] 5 mg PO BID 30 Days #60 tablet 01/01/19 Atorvastatin [Lipitor] 40 mg PO HS 30 Days #30 tablet 01/01/19 Budesonide/Formoterol 160/4.5 2 puff IH BIDR 30 Days #2 inh 01/01/19 [Symbicort 160/4.5] Folic Acid 1 mg PO DAILY 30 Days #30 tablet 01/01/19 Levothyroxine Sodium [Euthyrox] 100 mcg PO DAILY 30 Days #30 tablet 01/01/19 Metoclopramide [Reglan] 5 mg PO 0800,1700 30 Days #60 01/01/19 tablet Metoprolol Succinate [Toprol Xl] 25 mg PO DAILY 30 Days #30 01/01/19 tab.er.24h Omeprazole [PriLOSEC] 20 mg PO DAILY 30 Days #30 01/01/[address] Hackett [Gas-X] 80 mg PO TID PRN 30 Days #90 01/01/19 tab.chew cloNIDine HCl [CloNIDine HCl] 0.1 mg PO BID 30 Days #60 tablet 01/01/19 hydrALAZINE [HydrALAZINE] 50 mg PO BID 30 Days #60 tablet 01/01/19 Cefdinir [Omnicef] 300 mg PO DAILY #7 capsule 01/17/19 levoFLOXacin [Levaquin] 250 mg PO AD #3 tablet 01/17/19 Allergies Allergy/AdvReac Type Severity Reaction Status Date / Time Warfarin [From Coumadin] Allergy Anaphylaxis Verified 01/21/19 20:32 heparin AdvReac Severe Unresponsiv Verified 01/21/19 20:32 e Constitutional: Denies: fever, chills, weakness Eyes: Denies: vision change ENT ED: Denies: throat pain, congestion, dysphagia Cardiovascular: Reports: dyspnea on exertion. Denies: chest pain, palpitations, orthopnea, edema, syncope Respiratory: Reports: as per HPI, cough, dyspnea, sputum production. Denies: wheezes, hemoptysis, stridor Gastrointestinal: Denies: abdominal pain, nausea, vomiting, diarrhea Genitourinary: Denies: urgency, dysuria, frequency, hematuria Musculoskeletal: Reports: back pain (low back x weeks, was seen at urgent care Monday and diagnosed with muscle strain per patient). 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 - Social History Smoking Status: Never smoker Smokeless Tobacco Status: No Alcohol use: Reports: none Drug use: Reports: none Physical Exam - General Limitations: no limitations General appearance: alert, in no apparent distress Course Vital Signs Temperature 97.5 F L 01/21/19 20:32 Pulse Rate 86 01/21/19 20:32 Respiratory Rate 16 01/21/19 20:32 Blood Pressure 160/57 01/21/19 20:32 O2 Sat by Pulse Oximetry 100 01/21/19 20:32 Temperature 97.5 F L 01/21/19 20:32 Pulse Rate 98 01/22/19 01:22 Respiratory Rate 17 01/22/19 01:22 Blood Pressure 124/91 01/22/19 01:22 O2 Sat by Pulse Oximetry 98 01/22/19 01:22 Oxygen Delivery Oxygen Delivery Room Air Medical Decision Making - Lab Data Result diagrams: 01/21/19 20:53 01/22/19 00:42 Lab Results 01/21/19 01/21/19 01/21/19 Range/Units 20:53 20:53 20:53 WBC 9.2 D (4.3-11.1) K/mcL RBC 2.36 L (3.82-4.97) M/mcL Hgb 8.5 L (11.5-15.4) g/dL Hct 26.4 L (35.3-44.9) % MCV 111.9 H (83.0-100.0) fL MCH 36.0 H (28.0-33.3) pg MCHC 32.2 (31.6-35.5) g/dL RDW 16.9 H (11.5-14.5) % Plt Count 173 (140-400) K/mcL MPV 10.8 (9.4-12.4) fL Immature Gran % 0.9 (0-4) % Seg Neutrophils % 83.8 % Lymphocytes % 7.7 % Monocytes % 6.9 % Eosinophils % 0.5 % Basophils % 0.2 % Neutrophils # 7.7 (1.6-8.9) K/mcL Lymphocytes # 0.7 (0.6-4.6) K/mcL Monocytes # 0.6 (0.0-1.3) K/mcL Eosinophils # 0.1 (0.0-0.6) K/mcL Basophils # 0.0 (0.0-0.2) K/mcL Polychromasia 1+ A (Not Present) Macrocytosis Present A (Not Present) PT (9.4-12.1) Seconds INR APTT (26.0-36.0) Seconds VBG pH (7.32-7.42) pH Units VBG pCO2 (41-51) mmHg VBG pO2 (25-50) mmHg VBG HCO3 (21-27) mEq/L Sodium 131 L (136-145) mEq/L Potassium 6.0 H (3.5-5.1) mEq/L Chloride 92 L (98-107) mEq/L Carbon Dioxide 16 L (23-29) mEq/L BUN 61 H (6-20) mg/dL Creatinine 9.39 H (0.60-1.20) mg/dL Est GFR ( Amer) 6 L (> 60) Est GFR (Non-Af Amer) 5 L (> 60) BUN/Creatinine Ratio 6 (6-26) Glucose 148 H (70-105) mg/dL Calculated Osmolality 292 (280-300) Lactic Acid (0.5-2.2) mmol/L Calcium 7.6 L (8.6-10.3) mg/dL Magnesium 1.8 (1.6-2.6) mg/dL Total Bilirubin 0.9 (0.3-1.0) mg/dL AST 606 H (13-39) Units/L ALT 146 H (7-52) Units/L Alkaline Phosphatase 129 H (34-104) Units/L Troponin I 0.04 H* (< 0.04) ng/mL Serum Total Protein 6.1 L (6.4-8.9) g/dL Albumin 2.8 L (3.5-5.7) g/dL Globulin 3.3 (2.4-3.5) g/dL Albumin/Globulin Ratio 0.8 L (1.1-2.2) Lipase 10 L (11-82) Units/L Beta-Hydroxybutyric Acd 1.03 H (0.02-0.27) mmol/L Ethyl Alcohol (Less than 10) mg/dL 01/21/19 01/21/19 01/21/19 Range/Units 21:16 21:20 22:19 WBC (4.3-11.1) K/mcL RBC (3.82-4.97) M/mcL Hgb (11.5-15.4) g/dL Hct (35.3-44.9) % MCV (83.0-100.0) fL MCH (28.0-33.3) pg MCHC (31.6-35.5) g/dL RDW (11.5-14.5) % Plt Count (140-400) K/mcL MPV (9.4-12.4) fL Immature Gran % (0-4) % Seg Neutrophils % % Lymphocytes % % Monocytes % % Eosinophils % % Basophils % % Neutrophils # (1.6-8.9) K/mcL Lymphocytes # (0.6-4.6) K/mcL Monocytes # (0.0-1.3) K/mcL Eosinophils # (0.0-0.6) K/mcL Basophils # (0.0-0.2) K/mcL Polychromasia (Not Present) Macrocytosis (Not Present) PT (9.4-12.1) Seconds INR APTT (26.0-36.0) Seconds VBG pH 7.22 L (7.32-7.42) pH Units VBG pCO2 38 L (41-51) mmHg VBG pO2 49 (25-50) mmHg VBG HCO3 16 L (21-27) mEq/L Sodium (136-145) mEq/L Potassium (3.5-5.1) mEq/L Chloride (98-107) mEq/L Carbon Dioxide (23-29) mEq/L BUN (6-20) mg/dL Creatinine (0.60-1.20) mg/dL Est GFR ( Amer) (> 60) Est GFR (Non-Af Amer) (> 60) BUN/Creatinine Ratio (6-26) Glucose (70-105) mg/dL Calculated Osmolality (280-300) Lactic Acid 7.8 H* 7.8 H* (0.5-2.2) mmol/L Calcium (8.6-10.3) mg/dL Magnesium (1.6-2.6) mg/dL Total Bilirubin (0.3-1.0) mg/dL AST (13-39) Units/L ALT (7-52) Units/L Alkaline Phosphatase (34-104) Units/L Troponin I (< 0.04) ng/mL Serum Total Protein (6.4-8.9) g/dL Albumin (3.5-5.7) g/dL Globulin (2.4-3.5) g/dL Albumin/Globulin Ratio (1.1-2.2) Lipase (11-82) Units/L Beta-Hydroxybutyric Acd (0.02-0.27) mmol/L Ethyl Alcohol (Less than 10) mg/dL 01/22/19 01/22/19 01/22/19 Range/Units 00:42 00:42 01:16 WBC (4.3-11.1) K/mcL RBC (3.82-4.97) M/mcL Hgb (11.5-15.4) g/dL Hct (35.3-44.9) % MCV (83.0-100.0) fL MCH (28.0-33.3) pg MCHC (31.6-35.5) g/dL RDW (11.5-14.5) % Plt Count (140-400) K/mcL MPV (9.4-12.4) fL Immature Gran % (0-4) % Seg Neutrophils % % Lymphocytes % % Monocytes % % Eosinophils % % Basophils % % Neutrophils # (1.6-8.9) K/mcL Lymphocytes # (0.6-4.6) K/mcL Monocytes # (0.0-1.3) K/mcL Eosinophils # (0.0-0.6) K/mcL Basophils # (0.0-0.2) K/mcL Polychromasia (Not Present) Macrocytosis (Not Present) PT (9.4-12.1) Seconds INR APTT (26.0-36.0) Seconds VBG pH (7.32-7.42) pH Units VBG pCO2 (41-51) mmHg VBG pO2 (25-50) mmHg VBG HCO3 (21-27) mEq/L Sodium 134 L (136-145) mEq/L Potassium 5.3 H (3.5-5.1) mEq/L Chloride 96 L (98-107) mEq/L Carbon Dioxide 13 L (23-29) mEq/L BUN 61 H (6-20) mg/dL Creatinine 9.04 H (0.60-1.20) mg/dL Est GFR ( Amer) 6 L (> 60) Est GFR (Non-Af Amer) 5 L (> 60) BUN/Creatinine Ratio 7 (6-26) Glucose 176 H (70-105) mg/dL Calculated Osmolality 300 (280-300) Lactic Acid 7.4 H* (0.5-2.2) mmol/L Calcium 8.1 L (8.6-10.3) mg/dL Magnesium (1.6-2.6) mg/dL Total Bilirubin (0.3-1.0) mg/dL AST (13-39) Units/L ALT (7-52) Units/L Alkaline Phosphatase (34-104) Units/L Troponin I (< 0.04) ng/mL Serum Total Protein (6.4-8.9) g/dL Albumin (3.5-5.7) g/dL Globulin (2.4-3.5) g/dL Albumin/Globulin Ratio (1.1-2.2) Lipase (11-82) Units/L Beta-Hydroxybutyric Acd (0.02-0.27) mmol/L Ethyl Alcohol < 10 (Less than 10) mg/dL 01/22/19 Range/Units 01:16 WBC (4.3-11.1) K/mcL RBC (3.82-4.97) M/mcL Hgb (11.5-15.4) g/dL Hct (35.3-44.9) % MCV (83.0-100.0) fL MCH (28.0-33.3) pg MCHC (31.6-35.5) g/dL RDW (11.5-14.5) % Plt Count (140-400) K/mcL MPV (9.4-12.4) fL Immature Gran % (0-4) % Seg Neutrophils % % Lymphocytes % % Monocytes % % Eosinophils % % Basophils % % Neutrophils # (1.6-8.9) K/mcL Lymphocytes # (0.6-4.6) K/mcL Monocytes # (0.0-1.3) K/mcL Eosinophils # (0.0-0.6) K/mcL Basophils # (0.0-0.2) K/mcL Polychromasia (Not Present) Macrocytosis (Not Present) PT 45.8 H* (9.4-12.1) Seconds INR 4.0 APTT 40.4 H (26.0-36.0) Seconds VBG pH (7.32-7.42) pH Units VBG pCO2 (41-51) mmHg VBG pO2 (25-50) mmHg VBG HCO3 (21-27) mEq/L Sodium (136-145) mEq/L Potassium (3.5-5.1) mEq/L Chloride (98-107) mEq/L Carbon Dioxide (23-29) mEq/L BUN (6-20) mg/dL Creatinine (0.60-1.20) mg/dL Est GFR ( Amer) (> 60) Est GFR (Non-Af Amer) (> 60) BUN/Creatinine Ratio (6-26) Glucose (70-105) mg/dL Calculated Osmolality (280-300) Lactic Acid (0.5-2.2) mmol/L Calcium (8.6-10.3) mg/dL Magnesium (1.6-2.6) mg/dL Total Bilirubin (0.3-1.0) mg/dL AST (13-39) Units/L ALT (7-52) Units/L Alkaline Phosphatase (34-104) Units/L Troponin I (< 0.04) ng/mL Serum Total Protein (6.4-8.9) g/dL Albumin (3.5-5.7) g/dL Globulin (2.4-3.5) g/dL Albumin/Globulin Ratio (1.1-2.2) Lipase (11-82) Units/L Beta-Hydroxybutyric Acd (0.02-0.27) mmol/L Ethyl Alcohol (Less than 10) mg/dL Attestation Statement - Attestation Attestation: I have seen this patient with the mid level provider. I personally evaluated this patient. I reviewed the charting by the mid-level provider and in agreement with the charting including past medical history family history review of systems current history and physical examination laboratory testing and imaging. Please see documentation by the mid-level provider for full H&P and documentation. Patient initially presented to the emergency department for hypoglycemia, she reported that she had been feeling well for about a day or 2 just not really wanting to eat but otherwise had no focal symptoms of actual vomiting she states that she felt a little bit nauseated no abdominal pain no diarrhea no black or bloody stool she is a dialysis patient reports that she had a full run of dialysis on Monday and is due for dialysis tomorrow. She denies any focal symptoms of headache neck pain chest pain shortness of breath dizziness, she does feel generally weak denies that she makes a significant amount of urine no unilateral numbness or weakness no fevers no chills. She reports that she was recently admitted for pneumonia, and is still completing antibiotics. She states that she does not know why her blood sugar dropped. She has not been really compliant with any of her medications including her blood pressure medication or her diabetic medications. Upon arrival the paramedics report a blood sugar of 30 they gave her oral dextrose because she was awake and talking, and her blood sugar increased 81 but then dropped in route back down to 10, she was awake and talking upon arrival but her blood sugar was 10, she was given D50. Blood sugar temporarily increased, but she eventually required a D10 drip to maintain her blood sugars. Upon arrival, EKG was obtained, which showed a normal sinus rhythm, no evidence of acute ischemia or dysrhythmia or hyperkalemia, there was a borderline prolonged QT at 503 however this was decreased from 609. She early on in her stay had 3 brief runs of nonsustained ventricular tachycardia, pacer pads were placed, secondary to her being a dialysis patient, she was given IV calcium, and IV magnesium, with this she had no further runs of ventricular tachycardia, continued workup for significant illness was initiated. I also contacted cardiology did discuss consideration of medication such as amiodarone or other antiarrhythmics, he felt that likely this was more related to renal versus endocrine, and less likely to be inside sales account representative of acute myocardial ischemia, and would not recommend giving any further medications at this point in time for ventricular tachycardia unless she developed multiple further episodes or a episode of sustained ventricular tachycardia at which time he would recommend amiodarone. Patient initially remained in a sinus rhythm, but then developed atrial fibrillation which she has had in the past, with RVR, she felt heart rates in the 140s, which she was given IV fluids for as well as started on a diltiazem drip and bolus, with improvement of her heart rate, down in the 90s, then she had a spontaneous cardioversion into a sinus rhythm repeat EKG demonstrated sin us rhythm, no evidence of acute ischemic dysrhythmia or hyperkalemia. The patient then had a coughing spell and went back into atrial fibrillation therefore she was continued on her diltiazem drip, and given a secondary bolus of diltiazem. Patient on laboratory studies showed stable CBC, chronic anemia without change, no leukocytosis. Renal panel consistent with her history of dialysis and with an elevated potassium of 6.0, secondary to her original cardiac dysrhythmias, I will treat this, she underwent a VBG which showed a pH of 7.22, she was given intravenous bicarbonate, she was given high-dose albuterol, and I contacted nephrology, to discuss emergent dialysis, she did not feel that the patient required emergent dialysis for this. She reports that she will arrange for dialysis as an inpatient tomorrow if needed. Patient did not have any recurrent ventricular dysrhythmia and no bradycardia, and as above treated with IV calcium originally, followed by bicarbonate and high-dose albuterol, with her difficulty in maintaining blood sugars, I did not give insulin.. She was found have a borderline troponin of 0.04, but she is a dialysis patient without chest pain or shortness of breath, do not suspect acute myocardial infarction. Patient found to have newly elevated LFTs of unknown etiology she does not have a gallbladder has no abdominal pain and her lipase is normal, but secondary to this as well as her findings of a lactic acid of 7.8, a CT scan of the abdomen and pelvis was ordered this showed no evidence of obvious acute abnormality, there was some mild ascites, and what appear to be potentially some colitis with diffuse bowel wall thickening of the colon but this may be related to surrounding edema/ascites, and the patient has no abdominal pain and no diarrhea making colitis less likely. Chest x-ray as interpreted by radiology demonstrated persistence of the left lower lobe infiltrate, secondary to her presenting scenario of a profound hypoglycemia without other cause, we did send blood cultures and she was given triple coverage antibiotics as she was recently hospitalized. Repeat lactic acid after IV fluids, stayed the same at 7.8 she was given further IV fluids. I spoke with the hospitalist service, for admission to the ICU for this patient, they are agreeable to this, they have requested that a CT scan with IV contrast be ordered secondary to these elevated LFTs of unknown etiology and elevated lactate really of unexplained etiology to rule out any infarct of the liver, they will follow up on the CT scan. Total management in the emergency department included but was not limited to multiple repeat EKGs multiple repeat examinations IV dextrose boluses as well as IV dextrose drip, IV fluids, IV antibiotics, IV diltiazem drip and bolus, IV calcium, high-dose albuterol, IV bicarbonate, IV nausea medication. Consultation with cardiology and nephrology, and hospitalist. Total critical care time as provided by myself excluding any procedures performed was 85 minutes.
[2019-01-22] MEDS ORDERED: Ondansetron 4 MG/2 ML VIAL IVP PRN (01:32)
[2019-01-22] MEDS ORDERED: Naloxone 0.4 MG/ML INJ IVP PRN (01:32)
[2019-01-22 01:38] LABS: Activated Partial Thrombo Time 40.4 Seconds (26.0-36.0)
[2019-01-22 01:40] LABS: Prothrombin Time 45.8 Seconds (9.4-12.1)
[2019-01-22 01:52] LABS: Calcium 8.1 mg/dL (8.6-10.3); Potassium 5.3 mEq/L (3.5-5.1)
[2019-01-22 01:52] LABS: Hepatitis B Surface Antigen Nonreactive (Nonreactive)
[2019-01-22] MEDS ORDERED: WATER IVC SCH (02:09)
[2019-01-22] MEDS ORDERED: SODIUM BICARBONATE IVC SCH (02:09)
[2019-01-22] MEDS ORDERED: D10 IVC SCH (02:09)
[2019-01-22 02:21] LABS: Hepatitis A Antibody IgM Nonreactive (Nonreactive); Hepatitis B Core IgM Nonreactive (Nonreactive)
[2019-01-22] MEDS ORDERED: *HR* Dextrose 50 % in Water (Syg) 50 ML SYRINGE IVP PRN (02:21)
[2019-01-22] MEDS ORDERED: Dextrose Gel 15 GM/37.5 ML TUBE PO PRN ×2 (02:21)
[2019-01-22 02:22] LABS: Hepatitis C Virus Antibody Nonreactive (Nonreactive)
[2019-01-22] MEDS: D5% in Water 1,000 ML IVC PRN ×3 (02:50→23:54)
[2019-01-22 05:07] LABS: Basophils % 0.3 %; Eosinophils # 0.1 K/mcL (0.0-0.6); Eosinophils % 1.2 %; Hematocrit 24.5 % (35.3-44.9); Immature Granulocytes % 0.5 % (0-4); Lymphocytes # 0.4 K/mcL (0.6-4.6); Lymphocytes % 5.6 %; Mean Corpuscular HGB Conc 32.7 g/dL (31.6-35.5); Mean Corpuscular Hemoglobin 36.2 pg (28.0-33.3); Mean Corpuscular Volume 110.9 fL (83.0-100.0); Mean Platelet Volume 10.7 fL (9.4-12.4); Monocytes # 0.5 K/mcL (0.0-1.3); Neutrophils # 6.5 K/mcL (1.6-8.9); Platelet Count 126 K/mcL (140-400); Red Blood Count 2.21 M/mcL (3.82-4.97); Red Cell Distribution Width 16.7 % (11.5-14.5); Segmented Neutrophils % 86.4 %; White Blood Count 7.5 K/mcL (4.3-11.1)
[2019-01-22 05:08] LABS: Estimated Average Glucose 88 mg/dl
[2019-01-22] MEDS: SODIUM BICARBONATE IVC SCH ×2 (05:16→07:18)
[2019-01-22] MEDS: D10 IVC SCH ×2 (05:16→07:18)
[2019-01-22] MEDS: WATER IVC SCH ×2 (05:16→07:18)
[2019-01-22 05:27] LABS: Albumin 2.7 g/dL (3.5-5.7); Albumin/Globulin Ratio 0.9 (1.1-2.2); Bilirubin,Total 0.8 mg/dL (0.3-1.0); Calcium 7.8 mg/dL (8.6-10.3); Globulin 3.1 g/dL (2.4-3.5); Magnesium 1.9 mg/dL (1.6-2.6); Potassium 4.3 mEq/L (3.5-5.1); Total Protein 5.8 g/dL (6.4-8.9)
[2019-01-22 05:31] LABS: Macrocytosis Present (Not Present)
[2019-01-22 05:32] LABS: Platelet Estimate Slight Decrease (Normal)
--- NOTE | 2019-01-22 07:56 | Internal Med Progress Note ---
<Kel Dorman - Last Filed: 01/22/19 17:31> Hospitalist Progress Note - Encounter Date of Encounter: 01/22/19 - Exam Vitals: Temp Pulse Resp BP Pulse Ox 97.5 F L 100 12 115/63 100 01/22/19 15:57 01/22/19 17:00 01/22/19 17:00 01/22/19 17:15 01/22/19 17:00 - Assessment and Plan (1) Metabolic acidosis Current Visit: Yes Status: Acute (2) Hyperkalemia Current Visit: Yes Status: Acute (3) Hypoglycemia Current Visit: Yes Status: Acute (4) Afib Current Visit: Yes Status: Chronic (5) Hepatocellular damage Current Visit: Yes Status: Acute Assessment and Plan: Pt with elevated LFTs - ? ischemic versus other - Time Spent with Patient Total time spent is greater than 50% in coordination of care (as documented) at patient's floor/unit and/or counseling patient: Internal Medicine: Result - Labs CBC & Chem 7: 01/22/19 04:30 01/22/19 04:30 Labs: Short CBC 01/21/19 01/22/19 Range/Units 20:53 04:30 WBC 9.2 D 7.5 (4.3-11.1) K/mcL Hgb 8.5 L 8.0 L (11.5-15.4) g/dL Hct 26.4 L 24.5 L (35.3-44.9) % Plt Count 173 126 L (140-400) K/mcL Neutrophils # 7.7 6.5 (1.6-8.9) K/mcL BMP 01/21/19 01/22/19 01/22/19 20:53 00:42 04:30 Sodium 131 L 134 L 133 L Potassium 6.0 H 5.3 H 4.3 Chloride 92 L 96 L 96 L Carbon Dioxide 16 L 13 L 18 L BUN 61 H 61 H 58 H Creatinine 9.39 H 9.04 H 8.79 H Glucose 148 H 176 H 166 H Calcium 7.6 L 8.1 L 7.8 L Cardiac Enzymes 01/21/19 Range/Units 20:53 Troponin I 0.04 H* (< 0.04) ng/mL Liver Function 01/21/19 01/22/19 Range/Units 20:53 04:30 Total Bilirubin 0.9 0.8 (0.3-1.0) mg/dL AST 606 H 879 H (13-39) Units/L ALT 146 H 218 H (7-52) Units/L Alkaline Phosphatase 129 H 123 H (34-104) Units/L Albumin 2.8 L 2.7 L (3.5-5.7) g/dL - ABG Interpretation ABG results: PT/INR, D-dimer PT 45.8 Seconds (9.4-12.1) H* 01/22/19 01:16 - Impressions Impressions Chest X-Ray 01/21/19 20:34 IMPRESSION: Stable mild left lower lobe opacity which may represent atelectasis versus possible mild pneumonia. D/ / 01/21/2019 22:11:01 Teodoro Foley MD / karlos Interpreting Provider: Teodoro Foley MD Abdomen/Pelvis CT 01/21/19 22:13 IMPRESSION: 1. Wall thickening of the colon. Correlate with any clinical findings of colitis 2. Edema around the head of the pancreas is likely due to a generalized edema state. Recommend clinical exclusion of pancreatitis 3. Chronic atrophic kidneys 4. Colonic diverticulosis 5. Malpositioned IUD 6. Anasarca and ascites 7. Pleural thickening/chronic small pleural effusions with basilar atelectasis D/ / Cody Adam MD / Cody Adam MD Interpreting Provider: Cody Adam MD Abdomen/Pelvis CT 01/22/19 01:27 IMPRESSION: 1. Heterogeneous enhancement of the liver and periportal edema compatible with hepatocellular disease. No focal liver lesion. No evidence of portal vein thrombosis. Hepatic veins not evaluated due to bolus timing 2. Wall thickening of the colon. Correlate with any clinical findings of colitis 3. Ascites and anasarca 4. Additional findings as discussed in the body of the report and CT scan performed 1 day earlier D/ / Cody Adam MD / Cody Adam MD Interpreting Provider: Cody Adam MD Consult Discharge Plan - Plan Referrals: Peter Vicente DO [Primary Care Provider] - - Attending Attestation I examined this patient and my medical decision-making was reviewed with the Resident Physician on 01/22/19. I agree with the documented findings, disposition and treatment plan as described except to the extent set forth below. Ms Alexis is currently admitted for acute hypoglycemia. She remains moderate to high risk due to potential for worsening clinical status. Ms Alexis is awake and interactive. Denies pain. Has been on bicarb drip. Lactate improving. LFTs markedly elevated over baseline consistent with hepatocellular injury (? "shock liver"). No fever or chills. Heart not tachy. No wheeze Abd nontender. Plan for dialysis today. Recheck LFTs tomorrow. Labs pending due to low BS. <Otto Bess M - Last Filed: 01/22/19 18:00> Hospitalist Progress Note - Encounter Date of Encounter: 01/22/19 Time of Encounter: 10:00 - Subjective Interval History: Patient was seen and examined at bedside in the ICU this morning. Patient was arousable, alert and oriented. Patient did have a bout of emesis prior to my entering the room secondary to being given some sips of cold water. Patient did not report any pain, shortness of breath, cough, chills, fever however did admit to some continued nausea. Patient states that she did attend her scheduled dialysis appointment on Monday and that she believes her low blood sugar is due to her poor appetite over the last couple of days. The patient denies being any more swollen than usual however is clearly volume overloaded as evidenced by the bilateral lower extremity edema on exam. Additionally, the patient does have a systolic murmur grade 3, lungs are clear to auscultation. The patient was tachycardic on arrival started on a Cardizem drip however that has since been stopped and her vitals have remained stable. The patient's blood sugar on admission was critically low in addition to his severe lactic acidosis likely secondary to cellular ischemia, however lactate has since returned to normal, blood sugar has increased secondary to D5 drip, bicarbonate still very low howev er increasing. Of note the patient does have a significant coagulopathy, PT greater than 40, INR 4.0; will hold patient's home dose of L a course at this time. Liver enzymes are significantly elevated, CT abdomen did not reveal any evidence of cirrhosis, liver ultrasound pending. - Exam Vitals: Temp Pulse Resp BP Pulse Ox 96.6 F L 74 16 158/86 99 01/22/19 07:44 01/22/19 07:45 01/22/19 07:45 01/22/19 07:45 01/22/19 07:45 Exam: Gen.: Alert and oriented 3, disheveled, yellow-appearing skin, obese Head: Atraumatic normocephalic Eyes: External ocular muscles intact, anicteric ENT: Oropharynx clear, poor dentition, mucous membranes moist Neck: Thyroid not palpable, no evidence of lymphadenopathy CV: Grade 3 systolic murmur heard best at the left and right second intercostal location, regular rate and rhythm Lungs: Clear to auscultation bilaterally, no wheezes, rales, rhonchi appreciated on exam Abdomen: Nontender to exam, subcutaneous nodules appreciated diffusely across abdomen, nonrigid Extremities: Patient has some mild bilateral lower extremity edema, no rashes noted MSK: Able to move arms and legs, strength intact, full range of motion and gait not assessed Neuro: No focal deficits appreciated, no paresthesias, numbness - Assessment and Plan (1) Hepatocellular damage Current Visit: Yes Status: Acute Assessment and Plan: Patient presents with evidence of acute hepatocellular injury -No known history of liver disease -AST 606, increased 879 -ALT 146, increased to 218 -Alkaline phosphatase elevated at 129 -Patient also signs of coagulopathy, PT 45 -However, platelets and bilirubin are normal at this time -Patient is not altered, no evidence of hyperammonemia -CT abdomen revealed: -Heterogeneous enhancement of the liver with periportal edema -No focal liver lesions, no evidence of portal vein thrombosis -Consistent with hepatocellular disease -No evidence of liver cirrhosis -Etiology at this time suspected to be likely ischemic hepatocellular damage secondary to severe hypoglycemia and lactic acidosis -Toxic hepatitis less likely considering acetaminophen and salicylate levels not elevated -Meld score 36 Plan: -Trend LFTs -Follow platelets and PT/INR -Liver ultrasound ordered -Consider ordering ammonia level should she develop confusion (2) Metabolic acidosis Current Visit: Yes Status: Acute Assessment and Plan: Patient severely acidotic on admission Presented with a bicarbonate of 16 Anion gap noted to be 23 Likely secondary to severe lactic acidosis, lactate 9.4 on admission Lactate is since resolved Patient also noted to be in ketosis secondary to severe malnutrition and hypoglycemia Patient also noncompliant on hemodialysis, likely contributing to current condition Patient did receive 4 A of sodium bicarbonate today, repeat up to 18 Plan: -Continue to follow BMP to assess for acidosis -We will follow nephrology recommendations -We will continue to replace bicarbonate (3) Hypoglycemia Current Visit: Yes Status: Acute Assessment and Plan: Patient presented to the emergency department with glucose of 10 Admits to recent poor oral intake Has a history of hospitalizations for hypoglycemia Hemoglobin A1c 5.0 back in August Patient severely malnourished with poor metabolic reserve Due to the recurrent nature of patient's hypoglycemia must also consider possibility of insulinoma Also on the possible differential is exogenous insulin administration secondary to self-harm Plan: -Patient responded to D10W, blood sugars up to the 130s -Switch to D5 drip, continue to rise into the 200s -We will hold the D5 drip for now -Continue every 2 hour Accu-Cheks -Insulin level, proinsulin, C-peptide levels pending (4) Atrial fibrillation with RVR Current Visit: Yes Status: Acute Assessment and Plan: Patient with a known history of atrial fibrillation -Patient presented normal sinus rhythm -During course of admission has developed atrial fibrillation with RVR -Heart rate in the 160s during emergency Department examination -Started on a Cardizem drip -Patient did convert to an order normal sinus rhythm, Cardizem drip held in the morning -However, following dialysis patient converted back to A. fib RVR Plan: -Continue Cardizem drip as neeeded, currently at rate of 5 -Anticoagulation currently being held -PT greater than 40, INR 4.0 on admission -On eliquis at home, allergic to Warfarin, heparin (5) ESRD (end stage renal disease) Current Visit: Yes Status: Chronic Assessment and Plan: Patient with a known history of end-stage renal disease -States she was dialyzed on Monday -Has a significant history of dialysis noncompliance -Presented with generalized anasarca -Lungs without crackles, bilateral lower extremities showed mild edema -Imaging did reveal chronic small pleural effusions -On admission, potassium 6.0; potassium normalized following D10W -Nephrology consult, appreciate recommendations Plan: -Hemodialysis today -Replace electrolytes as needed -Renal diet when able to eat -Gentle volume repletion per nephrology (6) Hypoalbuminemia Current Visit: Yes Status: Chronic Assessment and Plan: Patient has poor malnutrition Albumin and serum protein levels chronically decreased Patient also exhibits anasarca Encourage oral intake May replace albumin if needed, we will follow nephrology recommendations (7) Hyperkalemia Current Visit: Yes Status: Chronic Assessment and Plan: Patient presented with potassium 6.0 on admission Quickly resolved following administration of D10W We will continue to follow and replace as needed (8) Hypertension Current Visit: Yes Status: Chronic Assessment and Plan: Patient with a known history of hypertension -Continue home medications -Monitor for low blood pressure in setting of dialysis DVT Prophylaxis: DVT prophylaxis not indicated at this time considering patient's significantly elevated PT/INR - Time Spent with Patient Total time spent is greater than 50% in coordination of care (as documented) at patient's floor/unit and/or counseling patient: Internal Medicine: Result - Labs CBC & Chem 7: 01/22/19 04:30 01/22/19 04:30 Labs: Short CBC 01/21/19 01/22/19 Range/Units 20:53 04:30 WBC 9.2 D 7.5 (4.3-11.1) K/mcL Hgb 8.5 L 8.0 L (11.5-15.4) g/dL Hct 26.4 L 24.5 L (35.3-44.9) % Plt Count 173 126 L (140-400) K/mcL Neutrophils # 7.7 6.5 (1.6-8.9) K/mcL BMP 01/21/19 01/22/19 01/22/19 20:53 00:42 04:30 Sodium 131 L 134 L 133 L Potassium 6.0 H 5.3 H 4.3 Chloride 92 L 96 L 96 L Carbon Dioxide 16 L 13 L 18 L BUN 61 H 61 H 58 H Creatinine 9.39 H 9.04 H 8.79 H Glucose 148 H 176 H 166 H Calcium 7.6 L 8.1 L 7.8 L Cardiac Enzymes 01/21/19 Range/Units 20:53 Troponin I 0.04 H* (< 0.04) ng/mL Liver Function 01/21/19 01/22/19 Range/Units 20:53 04:30 Total Bilirubin 0.9 0.8 (0.3-1.0) mg/dL AST 606 H 879 H (13-39) Units/L ALT 146 H 218 H (7-52) Units/L Alkaline Phosphatase 129 H 123 H (34-104) Units/L Albumin 2.8 L 2.7 L (3.5-5.7) g/dL - ABG Interpretation ABG results: PT/INR, D-dimer PT 45.8 Seconds (9.4-12.1) H* 01/22/19 01:16 - Impressions Impressions Chest X-Ray 01/21/19 20:34 IMPRESSION: Stable mild left lower lobe opacity which may represent atelectasis versus possible mild pneumonia. D/ / 01/21/2019 22:11:01 Teodoro Foley MD / karlos Interpreting Provider: Teodoro Foley MD Abdomen/Pelvis CT 01/21/19 22:13 IMPRESSION: 1. Wall thickening of the colon. Correlate with any clinical findings of colitis 2. Edema around the head of the pancreas is likely due to a generalized edema state. Recommend clinical exclusion of pancreatitis 3. Chronic atrophic kidneys 4. Colonic diverticulosis 5. Malpositioned IUD 6. Anasarca and ascites 7. Pleural thickening/chronic small pleural effusions with basilar atelectasis D/ / Cody Adam MD / Cody Adam MD Interpreting Provider: Cody Adam MD Abdomen/Pelvis CT 01/22/19 01:27 IMPRESSION: 1. Heterogeneous enhancement of the liver and periportal edema compatible with hepatocellular disease. No focal liver lesion. No evidence of portal vein thrombosis. Hepatic veins not evaluated due to bolus timing 2. Wall thickening of the colon. Correlate with any clinical findings of colitis 3. Ascites and anasarca 4. Additional findings as discussed in the body of the report and CT scan performed 1 day earlier D/ / Cody Adam MD / Cody Adam MD Interpreting Provider: Cody Adam MD <Kel Dorman - Last Filed: 01/22/19 17:31> (4) Afib Qualifiers: Atrial fibrillation type: paroxysmal Qualified Code(s): I48.0 - Paroxysmal atrial fibrillation <Otto Bess M - Last Filed: 01/22/19 18:00> (8) Hypertension Qualifiers: Hypertension type: essential hypertension Qualified Code(s): I10 - Essential (primary) hypertension
[2019-01-22] MEDS ORDERED: Sodium Bicarbonate 150 MEQ in D5% in Water 1,000 ML IVC SCH (08:45)
[2019-01-22] MEDS ORDERED: 0.9 % Sodium Chloride 250 ML IVC PRN (11:56)
[2019-01-22] MEDS ORDERED: 0.9 % Sodium Chloride 1,000 ML PRIME SCH (12:00)
[2019-01-22 14:54] LABS: Acetaminophen < 10 mcg/mL (10-20); Salicylate < 2.5 mg/dL (15.0-30.0)
--- NOTE | 2019-01-22 16:33 | Nephrology Consult Note ---
Date of Encounter: 01/22/19 Time of Encounter: 12:00 Assessment and Plan (1) ESRD (end stage renal disease) Current Visit: Yes Status: Chronic HD today with minimal UF as tolerated planned Lytes stabilized; potassium normalized with D10W given Renal diet when able to eat Careful volume repletion if this ESRD pt advised (2) Hypoglycemia Current Visit: Yes Status: Acute Agree with D10W with reduced rate or D20 via central line Per primary team (3) Lactic acidosis Current Visit: Yes Status: Acute Per primary team (4) Anemia Current Visit: Yes Status: Chronic Hgb stable around 8.0, will monitor Goal hgb 10-11 Transfusion parameters per primary team Qualifiers: Anemia type: due to chronic kidney disease Chronic kidney disease stage: on chronic dialysis Qualified Code(s): N18.6 - End stage renal disease; D63.1 - Anemia in chronic kidney disease; Z99.2 - Dependence on renal dialysis (5) Hyperkalemia Current Visit: Yes Status: Acute Resolved, due to hypoglycemia History of Present Illness - Reason for Consult Consult date: 01/22/19 end stage renal disease Requesting physician: Iman Addison - History of Present Illness 44 year old female ESRD on TTS dialysis, hyperlipidemia, hypothyroidism, atrial fibrillation, asthma, type 2 DM, GERD, HTN, CAD presents the emergency department with complaint of low blood sugar noted at 10. Potassium noted at 6.0.Pt was treated for Afib with cardizem gtt and started on iv abx with lactic acid above 7 and elevated liver enzymes. Last HD was monday. Pt seen and examined this am lethrgaic but responsive despite continued hypoglycemia on D10W gtt. Past Med Surg Social Fam HX - Past Medical History Medical history: asthma, atrial fibrillation, diabetes, dialysis, GI bleed, hyperlipidemia, hypertension, renal disease, thyroid disease Additional medical history: ANEMIA, BLEEDING ULCER,. KIDNEY DIALYSIS Psychiatric history: no psych history - Past Surgical History Surgical History: appendectomy, cholecystectomy, thyroidectomy, transplant, other Additional surgical history: KIDNEY TRANSPLANT 2007, TUBAL LIGATION, left antecubital AV fistula, multiple surgical and endovascular interventions for the left antecubital AV fistula, and placement of a left upper arm AV shunt - Social History Smoking Status: Never smoker Smokeless Tobacco Status: No Alcohol use: none Drug use: none - Family History Father Adopted: No Family Member Ethnicity: Non- Living Status: Hx Family Cardiac Disorders: Yes Hx Family Respiratory Disorders: Yes Hx Family Cancer: Yes Hx Family GI Disorders: No Hx Family Endocrine Disorder: Yes Hx Family Neuromuscular Disorders: No Hx Family Neurologic Disorders: No Hx Family HEENT Disorders: No Hx Family Autoimmune Disorders: No Mother Adopted: No Living Status: Hx Family Cardiac Disorders: Yes Hx Family Respiratory Disorders: No Hx Family Cancer: Yes Hx Family GI Disorders: No Hx Family Endocrine Disorder: No Hx Family Neuromuscular Disorders: No Hx Family Neurologic Disorders: No Hx Family HEENT Disorders: No Hx Family Autoimmune Disorders: No Medications and Allergies Cholecalciferol (Vitamin D3) [Vitamin D3] 50,000 units PO QWEEK 12/28/18 [History] Lidocaine/Prilocaine [Emla] 1 appl TP AD 12/28/18 [History] Albuterol Sulfate [Proventil Inhaler] 2 puff IH Q4H PRN 30 Days #2 inhaler 01/01/19 [Rx] Apixaban [Eliquis] 5 mg PO BID 30 Days #60 tablet 01/01/19 [Rx] Atorvastatin [Lipitor] 40 mg PO HS 30 Days #30 tablet 01/01/19 [Rx] Budesonide/Formoterol 160/4.5 [Symbicort 160/4.5] 2 puff IH BIDR 30 Days #2 inh 01/01/19 [Rx] Folic Acid 1 mg PO DAILY 30 Days #30 tablet 01/01/19 [Rx] Levothyroxine Sodium [Euthyrox] 100 mcg PO DAILY 30 Days #30 tablet 01/01/19 [Rx] Metoclopramide [Reglan] 5 mg PO 0800,1700 30 Days #60 tablet 01/01/19 [Rx] Metoprolol Succinate [Toprol Xl] 25 mg PO DAILY 30 Days #30 tab.er.24h 01/01/19 [Rx] Omeprazole [PriLOSEC] 20 mg PO DAILY 30 Days #30 capsule.dr 01/01/19 [Rx] Simethicone [Gas-X] 80 mg PO TID PRN 30 Days #90 tab.chew 01/01/19 [Rx] cloNIDine HCl [CloNIDine HCl] 0.1 mg PO BID 30 Days #60 tablet 01/01/19 [Rx] hydrALAZINE [HydrALAZINE] 50 mg PO BID 30 Days #60 tablet 01/01/19 [Rx] Cefdinir [Omnicef] 300 mg PO DAILY #7 capsule 01/17/19 [Rx] Allergy/AdvReac Type Severity Reaction Status Date / Time Warfarin [From Coumadin] Allergy Anaphylaxis Verified 01/21/19 20:32 heparin AdvReac Severe Unresponsiv Verified 01/21/19 20:32 e Review of Systems All Systems review (narrative): The rest of the systems are negative Constitutional: fatigue (admits) Cardiovascular: chest pain (denies), leg edema (admits) Respiratory: dyspnea (denies) Gastrointestinal: diarrhea (denies), nausea (admits) Exam - Vital Signs Vital signs: Initial Vital Signs Temp Pulse Resp BP Pulse Ox 97.5 F L 86 16 160/57 100 01/21/19 20:32 01/21/19 20:32 01/21/19 20:32 01/21/19 20:32 01/21/19 20:32 Vital Signs - Last 8 Hours Temp Pulse Resp BP Pulse Ox 01/22/19 16:23 100 12 118/80 100 01/22/19 16:15 118/80 01/22/19 16:01 123 16 120/104 100 01/22/19 16:00 124/45 01/22/19 15:57 97.5 F L 01/22/19 15:45 126/43 01/22/19 15:30 118/95 01/22/19 15:15 127/66 01/22/19 15:01 77 14 97/82 100 01/22/19 15:00 119/78 01/22/19 14:45 97.5 F L 16 130/57 01/22/19 14:31 73 01/22/19 14:06 74 14 124/76 98 01/22/19 13:04 73 12 120/76 98 01/22/19 12:04 97.2 F L 75 14 131/83 98 01/22/19 11:02 74 16 125/68 98 01/22/19 10:45 73 01/22/19 10:00 84 16 132/67 100 01/22/19 09:00 73 12 135/73 96 Intake and Output 01/22/19 01/22/19 01/22/19 07:59 15:59 23:59 Intake Total 1275 / 2637 1347 / 2637 2636 Output Total 50 / 50 Balance 127 / 2587 1297 / 2587 2586 Intake: IV Fluids 1274 0.9 % Sodium Chloride 1,000 ML 300 / 300 @ 100 mls/hr IVC .Q10H [facility] Rx#: [id number] Dextrose 10% Water 500 Ml Ivbag 200 / 200 500 ML @ 100 mls/hr IVC .Q5H [facility] Rx#:[id number] Dextrose 5% 1,000 ML @ 100 mls/ 300 / 300 hr IVC .Q10H [facility] Rx#:[id number] Cardizem 50 MG In 0.9 % Sodium 25 / 40 0 / 40 15 / 40 Chloride 40 ML @ 5 MG/HR 5 mls/ hr IVC CONT [facility] Rx#:[id number] Sodium Bicarbonate 150 MEQ In 317 / 317 Dextrose 10% Water 500 Ml Ivbag 500 ML @ 100 mls/hr IVC . Q6H30M [facility] Rx#:[id number] Sodium Bicarbonate 150 MEQ In 330 / 330 Dextrose 5% 1,000 ML @ 100 mls/ hr IVC .[id number] [facility] Rx#: [id number] Calcium Gluconate 1gm/50mL 1 gm 50 / 50 In 50 ml @ 100 mls/hr IVPB ONCE ONE Rx#:[id number] Vancocin 1,250 MG In 0.9 % 250 / 250 Sodium Chloride 250 ML @ 167 mls/hr IVPB ONCE ONE Rx#: [id number] Levaquin Premix 750mg/150 mL 150 / 150 750 mg In 150 ml @ 100 mls/hr IVPB ONCE ONE Rx#:[id number] Oral 100 / 100 Intake, Rinseback and Flushes 600 / 600 Output: Emesis 50 / 50 Other: Weight 83.9 kg Blood Glucose* 220 128 Hemodialysis Net Fluid Removed 1028 1541 (mL) Patient Weight 01/22/19 23:59 Weight 83.9 kg - General Appearance General appearance: chronically ill, fatigue EENT: ATNC, mucous membranes dry Neck: no JVD, supple Respiratory: clear Cardiology: edema, normal S1, normal S2 - Dialysis Access Dialysis Vascular Access: Arteriovenous Fistula thrill: Yes bruit: Yes Gastrointestinal: no tenderness, no guarding Integumentary: warm and dry Neurologic: no focal deficit Musculoskeletal: no deformities Psychiatric: mood/affect appropriate, cooperative Results - Lab Results 01/22/19 04:30 01/22/19 04:30 Most recent lab results 01/22/19 04:30 Calcium 7.8 L Magnesium 1.9 Consult Discharge Plan - Plan Referrals: Peter Vicente DO [Primary Care Provider] -
[2019-01-22] MEDS ORDERED: Simethicone 80 MG TAB.CHEW PO PRN (17:38)
[2019-01-22] MEDS: *HR* OxyCODONE Immed Rel 5 MG TABLET PO PRN (20:26)
[2019-01-22] MEDS: cloNIDine HCl 0.1 MG TABLET PO SCH (20:26)
[2019-01-22] MEDS: Budesonide/Formoterol 160/4.5 1 PUFF INH IH SCH (22:00)
[2019-01-22] MEDS: hydrALAZINE 25 MG TABLET PO SCH (23:53)
[2019-01-23 06:56] LABS: Basophils % 0.2 %; Eosinophils # 0.3 K/mcL (0.0-0.6); Eosinophils % 7.3 %; Hematocrit 25.1 % (35.3-44.9); Hemoglobin 8.2 g/dL (11.5-15.4); Immature Granulocytes % 0.7 % (0-4); Lymphocytes # 0.4 K/mcL (0.6-4.6); Lymphocytes % 9.2 %; Mean Corpuscular HGB Conc 32.7 g/dL (31.6-35.5); Mean Corpuscular Hemoglobin 35.8 pg (28.0-33.3); Mean Corpuscular Volume 109.6 fL (83.0-100.0); Mean Platelet Volume 10.7 fL (9.4-12.4); Monocytes # 0.4 K/mcL (0.0-1.3); Monocytes % 9.9 %; Neutrophils # 3.1 K/mcL (1.6-8.9); Platelet Count 110 K/mcL (140-400); Red Blood Count 2.29 M/mcL (3.82-4.97); Red Cell Distribution Width 16.8 % (11.5-14.5); Segmented Neutrophils % 72.7 %; White Blood Count 4.2 K/mcL (4.3-11.1)
[2019-01-23 07:15] LABS: Albumin 2.5 g/dL (3.5-5.7); Albumin/Globulin Ratio 0.8 (1.1-2.2); Bilirubin,Total 0.7 mg/dL (0.3-1.0); Calcium 7.6 mg/dL (8.6-10.3); Globulin 3.2 g/dL (2.4-3.5); Potassium 4.2 mEq/L (3.5-5.1); Total Protein 5.7 g/dL (6.4-8.9)
[2019-01-23] MEDS: Folic Acid 1 MG TABLET PO SCH (07:51)
[2019-01-23] MEDS: *HR* OxyCODONE Immed Rel 5 MG TABLET PO PRN ×2 (07:51→21:21)
--- NOTE | 2019-01-23 09:15 | Internal Med Progress Note ---
<Annie Allison - Last Filed: 01/23/19 16:02> Hospitalist Progress Note - Encounter Date of Encounter: 01/23/19 - Exam Vitals: Temp Pulse Resp BP Pulse Ox 97.5 F L 69 13 121/84 98 01/23/19 10:30 01/23/19 15:52 01/23/19 15:52 01/23/19 15:52 01/23/19 15:52 - Assessment and Plan (1) Afib Current Visit: Yes Status: Chronic (2) Hypoglycemia Current Visit: Yes Status: Acute (3) Metabolic acidosis Current Visit: Yes Status: Acute (4) Hyperkalemia Current Visit: Yes Status: Acute (5) Hepatocellular damage Current Visit: Yes Status: Acute - Time Spent with Patient Total time spent is greater than 50% in coordination of care (as documented) at patient's floor/unit and/or counseling patient: Internal Medicine: Result - Labs CBC & Chem 7: 01/23/19 06:44 01/23/19 06:44 Labs: Short CBC 01/23/19 Range/Units 06:44 WBC 4.2 L (4.3-11.1) K/mcL Hgb 8.2 L (11.5-15.4) g/dL Hct 25.1 L (35.3-44.9) % Plt Count 110 L (140-400) K/mcL Neutrophils # 3.1 (1.6-8.9) K/mcL BMP 01/23/19 06:44 Sodium 133 L Potassium 4.2 Chloride 93 L Carbon Dioxide 26 BUN 28 H Creatinine 5.29 H Glucose 100 Calcium 7.6 L Liver Function 01/23/19 Range/Units 06:44 Total Bilirubin 0.7 (0.3-1.0) mg/dL AST 409 H (13-39) Units/L ALT 176 H (7-52) Units/L Alkaline Phosphatase 119 H (34-104) Units/L Albumin 2.5 L (3.5-5.7) g/dL - ABG Interpretation ABG results: PT/INR, D-dimer PT 27.8 Seconds (9.4-12.1) H 01/23/19 14:49 - Impressions Impressions Liver Ultrasound 01/23/19 08:00 IMPRESSION: Slightly increased echogenicity of the liver with smooth liver capsule. Findings can be seen in the setting of hepatocellular disease including steatosis. No focal masses. Status post cholecystectomy. Mild prominence of the common bile duct up to 8 mm, nonspecific in the setting of prior cholecystectomy. Trace abdominal ascites. D/ / 01/23/2019 09:13:19 Maris Latham MD / sivan Interpreting Provider: Maris Latham MD Consult Discharge Plan - Plan Referrals: Peter Vicente DO [Primary Care Provider] - - Attending Attestation I examined this patient and my medical decision-making was reviewed with the Resident Physician Dr Bess. I agree with the documented findings, disposition and treatment plan as described except to the extent set forth below. Ms Alexis is admitted with acute hypoglycemia awake, RN at bedside, feeling better today, noting she isn't confused and feels like her baseline mental status. denies fevers, chills, admits to + chronic cough, no wheezing or sob. gen- alert, awake,appears stated age eyes- pupils equal round cv- reg rate and rhythm, normal s1,s2, no murmurs appreciated, no pitting le edema lungs- ctabl, no wheezing, rhonchi or crackles, normal resp effort on room air abd- soft, non tender, non distended, + bs neuro- AAOx3, CN grossly intact Acute Hypoglycemia likely 2/2 poor oral intake at home and possibly ? sepsis -cont to monitor off dextrose containg fluids today, if lower than goal will re intiate fluids, renal diet (hold aDA diet), insulin labs remain pending ACute Encephaloapthy suspec 2/2 hypoglycemia (metabolic), resolved Elevated transaminases suspect shocked liver 2/2 hypotension/hypoglycemia prior to admit Improving levels today Elevated INR Liver US reviewed- hepatocellular disease, cannot rule out fatty liver -cont to trend daily Lactic Acidosis without AG- cont ESRD as per nephro, given her procalcitonin, recent admission and technically meeting sepsis criteria will treat with empiric abx and trend lactate, no high rate fluids due to ESRD and fluid overload Fluid Overload 2/2 ESRD and non compliance with HD- HD as per nephro, improved Afib RVR, resolved- off ccb gtt, cont home BB, monitor lytes, hold eliquis for INR 4 HTN with low normal BPS here- hold hydralazie and clinidine, cont bb as above Technically meets sepsis criteria- no sepsis ivfs due to overload in ESRD setting, trend lactate, CXR cannot rule out atelectasis vs pna, begin levaquin given most recent course of treatment empirically for now while monitoring bps and lactate, attempt sputum cx, strep Uag, no other identifiable source of infection , bl cxs ngtd, clinically improving <Otto Bess - Last Filed: 01/23/19 17:57> Hospitalist Progress Note - Encounter Date of Encounter: 01/23/19 Time of Encounter: 10:00 - Subjective Interval History: Patient seen and examined at bedside with nurse this morning. Patient is more alert today, believes herself to be back at her baseline. Denies any shortness of breath, fevers, chills. Complains of a cough, no worse than usual. Patient did develop A. fib RVR again overnight, Cardizem drip was restarted, however this morning they were able to hold it. On exam she was slightly tachycardic, heart rate 110, this was sinus tachycardia in nature. She has had some problems with low blood pressure since her hemodialysis, she was normotensive during my examination. Her home clonidine and hydralazine were held and she was continued only on her beta katelin. Her labs did reveal a leukopenia which when combined with her intermittent tachycardia does qualify her for sepsis. However, in the setting of her ESRD no fluid resuscitation is possible at this time. The patient was restarted on Levaquin empirically for what is presumed to be a pneumonia secondary to chest x-ray results in addition to patient's prior pre sentation. Of note, her liver enzymes are improving, her PT/INR is returning to baseline, her bicarbonate has corrected but she does still have a widened anion gap, glucose has been normal. She is clinically improving, and will be moved out of the ICU today. - Exam Vitals: Temp Pulse Resp BP Pulse Ox 98.2 F 67 14 97/52 100 01/23/19 07:19 01/23/19 08:00 01/23/19 08:00 01/23/19 08:00 01/23/19 08:00 Exam: Gen.: Alert and oriented 3, disheveled, yellow-appearing skin, obese Head: Atraumatic normocephalic Eyes: External ocular muscles intact, anicteric ENT: Oropharynx clear, poor dentition, mucous membranes moist Neck: Thyroid not palpable, no evidence of lymphadenopathy CV: Grade 3 systolic murmur heard best at the left and right second intercostal location, regular rate and rhythm Lungs: Clear to auscultation bilaterally, no wheezes, rales, rhonchi appreciated on exam Abdomen: Nontender to exam, subcutaneous nodules appreciated diffusely across abdomen, nonrigid Extremities: Patient has some mild bilateral lower extremity edema, no rashes noted MSK: Able to move arms and legs, strength intact, full range of motion and gait not assessed Neuro: No focal deficits appreciated, no paresthesias, numbness - Assessment and Plan (1) Pneumonia Current Visit: Yes Status: Acute Assessment and Plan: Patient presented to the emergency department on January 17 with symptoms concerning for pneumonia -Patient was advised to be admitted to hospital for inpatient management -Patient refused admission at that time, Levaquin and Omnicef for given -Patient reports that she completed her course of oral Omnicef -She admits to some persistent cough, denies dyspnea, wheezing, increased sputum production -Has denied fevers/chills, has been afebrile -Patient was tachycardic on arrival, went into A. fib RVR requiring Cardizem drip which has since resolved -Today she did develop a leukopenia, white blood count 4.2 -Chest x-ray did reveal some left lower lobe opacities consistent with a mild pneumonia -In the setting of a suspected source in addition to leukopenia and tachycar grey, patient did meet sepsis criteria -Fluid boluses were not indicated for this patient due to her end-stage renal disease and noncompliance with hemodialysis -Blood cultures and sputum cultures were obtained, empiric Levaquin was reinitiated Plan: -Continue to monitor vitals closely -Follow up blood and sputum cultures -Adjust antibiotics accordingly -Continue empiric Levaquin for time being -Urinary antigen testing not possible 2/2 as patient does not produce urine (2) Hepatocellular damage Current Visit: Yes Status: Acute Assessment and Plan: Patient presented with evidence of acute hepatocellular injury -No known history of liver disease -AST 606, increased 879, down 49 today -ALT 146, increased to 218, down to 176 today -Alkaline phosphatase elevated at 129, down to 119 today -Patient also signs of coagulopathy, PT 45/INR 4.0, repeat on January 23 revealed PT 27/INR 2.4 -However, platelets and bilirubin are normal at this time -Patient is not altered, no evidence of hyperammonemia -CT abdomen revealed: -Heterogeneous enhancement of the liver with periportal edema -No focal liver lesions, no evidence of portal vein thrombosis -Consistent with hepatocellular disease -No evidence of liver cirrhosis -Liver ultrasound on January 23 revealed hyper-echogenicity of the liver, consistent with hepatocellular damage and steatosis -Etiology at this time suspected to be likely ischemic hepatocellular damage secondary to hypovolemia, severe hypoglycemia -Toxic hepatitis less likely considering acetaminophen and salicylate levels not elevated -Meld score 36 on admission Plan: -LFTs resolving, continue to trend with daily CMP -Follow platelets and PT/INR, PO2 be improving, will resume home Eliquis likely tomorrow (3) Metabolic acidosis Current Visit: Yes Status: Acute Assessment and Plan: Patient severely acidotic on admission Presented with a bicarbonate of 16, 4 A of bicarbonate increased to 18 Repeat CMP today revealed bicarbonate had improved significantly to 26 Anion gap down to 14, was 23 yesterday Likely secondary to severe lactic acidosis, lactate 7.8 on admission Lactate down trended to 1.9 overnight, however this morning it is back up to 2.6 Patient also noted to be in ketosis secondary to severe malnutrition and hypoglycemia Plan: -Continue to follow BMP to assess for acidosis -We will replace bicarbonate as indicated -We will follow nephrology recommendations -We will continue to trend lactate level (4) Hypoglycemia Current Visit: Yes Status: Acute Assessment and Plan: Patient presented to the emergency department with glucose of 10 Admits to recent poor oral intake Has a history of hospitalizations for hypoglycemia Hemoglobin A1c 5.0 back in August Patient severely malnourished with poor metabolic reserve Due to the recurrent nature of patient's hypoglycemia must also consider possibility of insulinoma Also on the possible differential is exogenous insulin administration secondary to self-harm Plan: -Patient responded to D10W, blood sugars up to the 130s -Switch to D5 drip, continue to rise into the 200s -Patient is since off the D5 drip and her blood sugars have been stable in the 100s -We will continue regular Accu-Cheks -We will encourage oral intake -Insulin level, proinsulin, C-peptide levels pending (5) Atrial fibrillation with RVR Current Visit: Yes Status: Acute Assessment and Plan: Patient with a known history of atrial fibrillation -Patient presented normal sinus rhythm -During course of admission has developed atrial fibrillation with RVR -Heart rate in the 160s during emergency Department examination -Started on a Cardizem drip -Patient did convert to an order normal sinus rhythm, Cardizem drip held in the morning -However, following dialysis patient converted back to A. fib RVR -Likely 2/2 presumed infection Plan: -Continue Cardizem drip as neeeded -Anticoagulation currently being held -PT greater than 40, INR 4.0 on admission -On eliquis at home, allergic to Warfarin, heparin (6) ESRD (end stage renal disease) Current Visit: Yes Status: Chronic Assessment and Plan: Patient with a known history of end-stage renal disease -States she was dialyzed on Monday -Has a significant history of dialysis noncompliance -Presented with generalized anasarca -Lungs without crackles, bilateral lower extremities showed mild edema -Imaging did reveal chronic small pleural effusions -On admission, potassium 6.0; potassium normalized following D10W -Nephrology consult, appreciate recommendations Plan: -Hemodialysis yesterday, 3.6 L removed -Replace electrolytes as needed -Renal diet when able to eat -Gentle volume repletion per nephrology (7) Hypoalbuminemia Current Visit: Yes Status: Chronic Assessment and Plan: Patient has poor malnutrition Albumin and serum protein levels chronically decreased Patient also exhibits anasarca Encourage oral intake May replace albumin if needed, we will follow nephrology recommendations (8) Hyperkalemia Current Visit: Yes Status: Chronic Assessment and Plan: Patient presented with potassium 6.0 on admission Quickly resolved following administration of D10W Repeat this morning was 4. We will continue to follow and replace as needed (9) Hypertension Current Visit: Yes Status: Chronic Assessment and Plan: Patient has a history of hypertension Secondary to dialysis patient has had bouts of hypotension Patient's home clonidine and hydralazine were held We will continue patient's home beta katelin DVT Prophylaxis: DVT prophylaxis not indicated at this time considering patient's significantly elevated PT/INR - Time Spent with Patient Total time spent is greater than 50% in coordination of care (as documented) at patient's floor/unit and/or counseling patient: Internal Medicine: Result - Labs CBC & Chem 7: 01/23/19 06:44 01/23/19 06:44 Labs: Short CBC 01/23/19 Range/Units 06:44 WBC 4.2 L (4.3-11.1) K/mcL Hgb 8.2 L (11.5-15.4) g/dL Hct 25.1 L (35.3-44.9) % Plt Count 110 L (140-400) K/mcL Neutrophils # 3.1 (1.6-8.9) K/mcL BMP 01/23/19 06:44 Sodium 133 L Potassium 4.2 Chloride 93 L Carbon Dioxide 26 BUN 28 H Creatinine 5.29 H Glucose 100 Calcium 7.6 L Liver Function 01/23/19 Range/Units 06:44 Total Bilirubin 0.7 (0.3-1.0) mg/dL AST 409 H (13-39) Units/L ALT 176 H (7-52) Units/L Alkaline Phosphatase 119 H (34-104) Units/L Albumin 2.5 L (3.5-5.7) g/dL - ABG Interpretation ABG results: PT/INR, D-dimer PT 45.8 Seconds (9.4-12.1) H* 01/22/19 01:16 - Impressions Impressions Liver Ultrasound 01/23/19 08:00 IMPRESSION: Slightly increased echogenicity of the liver with smooth liver capsule. Findings can be seen in the setting of hepatocellular disease including steatosis. No focal masses. Status post cholecystectomy. Mild prominence of the common bile duct up to 8 mm, nonspecific in the setting of prior cholecystectomy. Trace abdominal ascites. D/ / 01/23/2019 09:13:19 Maris Latham MD / sivan Interpreting Provider: Maris Latham MD <Annie Allison M - Last Filed: 01/23/19 16:02> (1) Afib Qualifiers: Atrial fibrillation type: paroxysmal Qualified Code(s): I48.0 - Paroxysmal atrial fibrillation <Otto Bess M - Last Filed: 01/23/19 17:57> (1) Pneumonia Qualifiers: Pneumonia type: due to unspecified organism Laterality: left Lung location: lower lobe of lung Qualified Code(s): J18.1 - Lobar pneumonia, unspecified organism (9) Hypertension Qualifiers: Hypertension type: essential hypertension Qualified Code(s): I10 - Essential (primary) hypertension
[2019-01-23] MEDS: Budesonide/Formoterol 160/4.5 1 PUFF INH IH SCH ×2 (09:34→19:42)
[2019-01-23] MEDS: hydrALAZINE 25 MG TABLET PO SCH (10:31)
[2019-01-23] MEDS: cloNIDine HCl 0.1 MG TABLET PO SCH (10:31)
[2019-01-23] MEDS: Metoprolol XL (24 HR) Succ 25 MG TAB.ER.24H PO SCH (10:47)
[2019-01-23 15:21] LABS: INR 2.4; Prothrombin Time 27.8 Seconds (9.4-12.1)
[2019-01-23] MEDS ORDERED: levoFLOXacin 750 MG/150 ML 750 MG/150 ML BAG IVPB ONE (16:09)
--- NOTE | 2019-01-23 18:16 | Nephrology Progress Note ---
Date of Encounter: 01/23/19 Time of Encounter: 12:00 - Assessment and Plan (1) ESRD (end stage renal disease) Current Visit: Yes Status: Chronic s/p HD yesterday, next tomorrow Lytes remains stable Continue renal diet when able to eat Fluid restriction advised at this point (2) Hypoglycemia Current Visit: Yes Status: Acute Resolved Per primary team (3) Lactic acidosis Current Visit: Yes Status: Acute Per primary team (4) Anemia Current Visit: Yes Status: Chronic Hgb stable at 8.2, will monitor Goal hgb 10-11 Transfusion parameters per primary team Qualifiers: Anemia type: due to chronic kidney disease Chronic kidney disease stage: on chronic dialysis Qualified Code(s): N18.6 - End stage renal disease; D63.1 - Anemia in chronic kidney disease; Z99.2 - Dependence on renal dialysis (5) Hyperkalemia Current Visit: Yes Status: Acute Resolved, due to hypoglycemia Subjective Interval history: Pt seen and examined feels better today with less nausea and no vomiting. Ate this am alittle Objective - Vital Signs Vital signs: Vital Signs Temp Pulse Resp BP Pulse Ox 01/23/19 16:12 98.0 F 01/23/19 15:52 69 13 121/84 98 01/23/19 11:37 67 14 102/66 98 01/23/19 10:30 97.5 F L 01/23/19 09:37 14 100 01/23/19 08:00 67 14 97/52 100 01/23/19 07:19 98.2 F 01/23/19 06:00 67 14 126/74 100 01/23/19 04:14 97.8 F 01/23/19 03:53 70 14 114/52 100 01/23/19 02:26 73 01/23/19 02:00 65 14 130/73 100 01/23/19 00:04 98.1 F 01/23/19 00:00 64 14 166/71 95 01/22/19 23:00 73 12 154/74 92 01/22/19 22:01 16 95 01/22/19 22:00 66 20 154/76 93 01/22/19 21:00 71 14 124/96 95 01/22/19 20:09 98.1 F 01/22/19 19:00 73 12 102/65 95 01/22/19 18:40 97.4 F L 16 103/72 01/22/19 18:16 102 17 123/49 98 01/22/19 18:15 111/51 Intake and Output 01/23/19 01/23/19 01/23/19 07:59 15:59 23:59 Intake Total 24 / 144 120 / 144 Output Total 0 / 0 0 / 0 Balance 24 / 144 120 / 144 Intake: IV Fluids 24 / 24 Cardizem 50 MG In 0.9 % Sodium 24 / 24 Chloride 40 ML @ 5 MG/HR 5 mls/ hr IVC CONT OSMAR Rx#:[id number] Oral 0 / 120 120 / 120 Output: Urine 0 / 0 0 / 0 Other: Meal Lunch Percent of Meal Consumed 100% Weight 79.5 kg Blood Glucose* 105 82 84 Patient Weight 01/23/19 23:59 Weight 79.5 kg - General Appearance General appearance: Present: chronically ill, fatigue EENT: Present: ATNC, mucous membranes moist Neck: Present: no JVD, supple Respiratory: Present: clear Cardiology: Present: no edema (LE bilat), normal S1, normal S2 Dialysis Vascular Access: Arteriovenous Fistula thrill: Yes bruit: Yes Gastrointestinal: Present: no tenderness, no guarding, obese (with edema noted) Integumentary: Present: warm and dry Neurologic: Present: no focal deficit Musculoskeletal: Present: no deformities Psychiatric: Present: mood/affect appropriate, cooperative - Lab 01/23/19 06:44 01/23/19 06:44 Most recent lab results 01/23/19 06:44 Calcium 7.6 L Consult Discharge Plan - Plan Referrals: Peter Vicente DO [Primary Care Provider] -
[2019-01-24] MEDS: D5% in Water 1,000 ML IVC PRN (01:16)
[2019-01-24 05:47] LABS: Hematocrit 24.6 % (35.3-44.9); Hemoglobin 7.9 g/dL (11.5-15.4); Mean Corpuscular HGB Conc 32.1 g/dL (31.6-35.5); Mean Corpuscular Hemoglobin 35.4 pg (28.0-33.3); Mean Corpuscular Volume 110.3 fL (83.0-100.0); Mean Platelet Volume 11.1 fL (9.4-12.4); Platelet Count 106 K/mcL (140-400); Red Blood Count 2.23 M/mcL (3.82-4.97); White Blood Count 5.5 K/mcL (4.3-11.1)
[2019-01-24 05:48] LABS: Prothrombin Time 23.2 Seconds (9.4-12.1)
[2019-01-24 06:09] LABS: Albumin 2.6 g/dL (3.5-5.7); Albumin/Globulin Ratio 0.8 (1.1-2.2); Bilirubin,Total 0.6 mg/dL (0.3-1.0); Calcium 7.3 mg/dL (8.6-10.3); Globulin 3.1 g/dL (2.4-3.5); Magnesium 1.7 mg/dL (1.6-2.6); Potassium 4.5 mEq/L (3.5-5.1); Total Protein 5.7 g/dL (6.4-8.9)
--- NOTE | 2019-01-24 06:22 | Electrocardiograph Report ---
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
[2019-01-24] MEDS ORDERED: 0.9 % Sodium Chloride 250 ML IVC PRN (07:43)
[2019-01-24] MEDS ORDERED: *HR* OxyCODONE Immed Rel 5 MG TABLET PO PRN (07:52)
--- NOTE | 2019-01-24 08:07 | Internal Med Progress Note ---
<Otto Bess M - Last Filed: 01/24/19 14:12> Hospitalist Progress Note - Encounter Date of Encounter: 01/24/19 Time of Encounter: 09:00 - Subjective Interval History: Patient seen and examined at bedside with family in room this morning. Patient reports no acute worsening of her symptoms overnight. Patient does admit to a ppetite and is eating breakfast this morning, D5 drip still running. We will reassess in the afternoon. She is complaining of some pain in her left lower abdomen mainly in the pannus which is mildly warm and erythematous with moderate odor. Her leukopenia has resolved, no tachycardia since yesterday. Hold the Levaquin and monitor overnight for signs symptoms. Her INR is down to 2.0 today, we will restart Eliquis. - Exam Vitals: Temp Pulse Resp BP Pulse Ox 98.1 F 68 19 92/56 96 01/24/19 07:30 01/24/19 07:30 01/24/19 07:30 01/24/19 07:30 01/24/19 07:30 Exam: Gen.: Alert and oriented 3, disheveled, yellow-appearing skin, obese Head: Atraumatic normocephalic Eyes: External ocular muscles intact, anicteric ENT: Oropharynx clear, poor dentition, mucous membranes moist Neck: Thyroid not palpable, no evidence of lymphadenopathy CV: Grade 3 systolic murmur heard best at the left and right second intercostal location, regular rate and rhythm Lungs: Clear to auscultation bilaterally, no wheezes, rales, rhonchi appreciated on exam Abdomen: Mildly tender to exam and erythematous in the right lower quadrant pannus, subcutaneous nodules appreciated diffusely across abdomen, nonrigid Extremities: Patient has some mild bilateral lower extremity edema, no rashes noted MSK: Able to move arms and legs, strength intact, full range of motion and gait not assessed Neuro: No focal deficits appreciated, no paresthesias, numbness - Assessment and Plan (1) Hypoglycemia Current Visit: Yes Status: Acute Assessment and Plan: Patient presented to the emergency department with glucose of 10 Admits to recent poor oral intake, does have an appetite today Has a history of hospitalizations for hypoglycemia, likely secondary to poor glycogen reserve Hemoglobin A1c 5.0 back in August Due to the recurrent nature of patient's hypoglycemia must also consider possibility of insulinoma Also on the possible differential is exogenous insulin administration secondary to self-harm Suspect this is all secondary to recent poor intake in addition to her poor reserve Plan: -Patient responded to D10W, blood sugars up to the 130s -Blood sugars consistently running below 100 overnight -D5 drip was resumed, will stop if patient continues to eat -Insulin level, proinsulin, C-peptide levels still pending at this time (2) Pneumonia Current Visit: Yes Status: Acute Assessment and Plan: Patient presented to the emergency department on January 17 with symptoms concerning for pneumonia -Patient was advised to be admitted to hospital for inpatient management -Patient refused admission at that time, Levaquin and Omnicef for given -Patient reports that she completed her course of oral Omnicef -She continues to complain of a cough but denies dyspnea wheezing or sputum production -No subjective fevers, chills; has been afebrile since admission -Patient was tachycardic on arrival, went into A. fib RVR requiring Cardizem drip which has since resolved -On January 23 the patient was mildly leukopenic, WBC within normal limits on January 24 -Chest x-ray did reveal some left lower lobe opacities consistent with a mild pneumonia -In the setting of a suspected source in addition to leukopenia and tachycardia, patient did meet sepsis criteria and was started on Levaquin -Fluid boluses were not indicated for this patient due to her end-stage renal disease and noncompliance with hemodialysis -Blood cultures and sputum cultures were obtained, no growth to date Plan: -We will continue to monitor vitals closely, no serious criteria at this time -Blood and sputum cultures show no growth to date, will follow up -Urinary antigen testing not possible 2/2 as patient does not produce urine -Levaquin on hold due to low suspicion for pneumonia in setting of resolved serious criteria -Patient did have an prolonged QT, greater than 500; if resumption of antibiotics is indicated will consider Augmentin and/or Rocephin (3) Hepatocellular damage Current Visit: Yes Status: Acute Assessment and Plan: Patient presented with evidence of acute hepatocellular injury -No known history of liver disease -AST 606, increased 879, trending downwards, 221 today -ALT 146, increased to 218, trending downwards, 140 today -Alkaline phosphatase continues to be elevated -Patient also signs of coagulopathy, PT 45/INR 4.0, repeat on January 23 revealed PT 27/INR 2.4 -Today the patient's INR was 2.0, will resume oral alkaline phosphatase -Platelets and bilirubin unremarkable -Patient is not altered, no evidence of hyperammonemia -CT abdomen revealed: -Heterogeneous enhancement of the liver with periportal edema -No focal liver lesions, no evidence of portal vein thrombosis -Consistent with hepatocellular disease -No evidence of liver cirrhosis -Liver ultrasound on January 23 -hyper-echogenicity of the liver -consistent with hepatocellular damage and steatosis -Etiology at this time suspected to be likely ischemic hepatocellular damage secondary to hypovolemia, severe hypoglycemia -Toxic hepatitis less likely considering acetaminophen and salicylate levels not elevated -Meld score 36 on admission, improving Plan: -LFTs resolving, continue to trend with daily CMP -Resume home dose of oral Eliquis (4) Metabolic acidosis Current Visit: Yes Status: Acute Assessment and Plan: Patient severely acidotic on admission Presented with a bicarbonate of 16, 4 A of bicarbonate increased to 18 Bicarbonate levels since resolved, most recently 23 Anion gap on admission was 23-> 14-> 13 today Likely secondary to severe lactic acidosis, lactate 7.8 on admission Lactate down to 1.9 yesterday, increased to 2.6, this morning 3.0 Patient also noted to be in ketosis secondary to severe malnutrition and hypoglycemia Plan: -Continue to follow CMP to assess for acidosis -We will follow nephrology recommendations -We will continue to trend lactate level (5) Atrial fibrillation with RVR Current Visit: Yes Status: Acute Assessment and Plan: Patient with a known history of atrial fibrillation -Patient presented normal sinus rhythm -During course of admission has developed atrial fibrillation with RVR -Heart rate in the 160s during emergency Department examination -Started on a Cardizem drip -Patient did convert to an order normal sinus rhythm, Cardizem drip held in the morning -However, following dialysis patient converted back to A. fib RVR -Likely 2/2 presumed infection -This has since resolved, Cardizem stopped the morning of 01/23 -Patient has since been in normal sinus rhythm -Anticoagulation was on hold secondary to warfarin and heparin allergy and INR 4.0 -This morning INR was 2.0 Plan: -Resume Oral Eliquis (6) ESRD (end stage renal disease) Current Visit: Yes Status: Chronic Assessment and Plan: Patient with a known history of end-stage renal disease -States she was dialyzed on Monday -Has a significant history of dialysis noncompliance -Presented with generalized anasarca -Lungs without crackles, bilateral lower extremities showed mild edema -Imaging did reveal chronic small pleural effusions -On admission, potassium 6.0; potassium normalized following D10W -Nephrology consult, appreciate recommendations Plan: -Hemodialysis January 22, 3.6 L removed -Replace electrolytes as needed -Renal diet when able to eat -Gentle volume repletion per nephrology -Plan for dialysis January 25 (7) Hypoalbuminemia Current Visit: Yes Status: Chronic Assessment and Plan: Patient has poor malnutrition Albumin and serum protein levels chronically decreased Patient also exhibits anasarca Encourage oral intake May replace albumin if needed, we will follow nephrology recommendations (8) Hyperkalemia Current Visit: Yes Status: Chronic Assessment and Plan: This is since resolved following hemodialysis (9) Hypertension Current Visit: Yes Status: Chronic Assessment and Plan: Patient has a known history of hypertension Has been normotensive during admission with bouts of hypotension subsequent hemodialysis Patient takes clonidine hydralazine metoprolol at home Metoprolol has been resumed, will hold clonidine and hydralazine at this time DVT Prophylaxis: Oral Eliquis 5 mg twice a day - Time Spent with Patient Total time spent is greater than 50% in coordination of care (as documented) at patient's floor/unit and/or counseling patient: Internal Medicine: Result - Labs CBC & Chem 7: 01/24/19 04:33 01/24/19 04:33 Labs: Short CBC 01/24/19 Range/Units 04:33 WBC 5.5 (4.3-11.1) K/mcL Hgb 7.9 L (11.5-15.4) g/dL Hct 24.6 L (35.3-44.9) % Plt Count 106 L (140-400) K/mcL BMP 01/24/19 04:33 Sodium 129 L Potassium 4.5 Chloride 93 L Carbon Dioxide 23 BUN 29 H Creatinine 5.52 H Glucose 80 Calcium 7.3 L Liver Function 01/24/19 Range/Units 04:33 Total Bilirubin 0.6 (0.3-1.0) mg/dL AST 221 H (13-39) Units/L ALT 140 H (7-52) Units/L Alkaline Phosphatase 143 H (34-104) Units/L Albumin 2.6 L (3.5-5.7) g/dL - ABG Interpretation ABG results: PT/INR, D-dimer PT 23.2 Seconds (9.4-12.1) H 01/24/19 04:33 - Impressions Impressions Liver Ultrasound 01/23/19 08:00 IMPRESSION: Slightly increased echogenicity of the liver with smooth liver capsule. Findings can be seen in the setting of hepatocellular disease including steatosis. No focal masses. Status post cholecystectomy. Mild prominence of the common bile duct up to 8 mm, nonspecific in the setting of prior cholecystectomy. Trace abdominal ascites. D/ / 01/23/2019 09:13:19 Maris Latham MD / sivan Interpreting Provider: Maris Latham MD Consult Discharge Plan - Plan Referrals: Peter Vicente DO [Primary Care Provider] - <Annie Allison - Last Filed: 01/24/19 15:47> Hospitalist Progress Note - Encounter Date of Encounter: 01/24/19 - Exam Vitals: Temp Pulse Resp BP Pulse Ox 99.1 F 68 18 120/103 96 01/24/19 09:30 01/24/19 07:30 01/24/19 09:30 01/24/19 11:45 01/24/19 07:30 - Assessment and Plan (1) Afib Current Visit: Yes Status: Chronic (2) Hypoglycemia Current Visit: Yes Status: Acute (3) Metabolic acidosis Current Visit: Yes Status: Acute (4) Hyperkalemia Current Visit: Yes Status: Acute (5) Hepatocellular damage Current Visit: Yes Status: Acute - Time Spent with Patient Total time spent is greater than 50% in coordination of care (as documented) at patient's floor/unit and/or counseling patient: Internal Medicine: Result - Labs CBC & Chem 7: 01/24/19 04:33 01/24/19 04:33 Labs: Short CBC 01/24/19 Range/Units 04:33 WBC 5.5 (4.3-11.1) K/mcL Hgb 7.9 L (11.5-15.4) g/dL Hct 24.6 L (35.3-44.9) % Plt Count 106 L (140-400) K/mcL BMP 01/24/19 04:33 Sodium 129 L Potassium 4.5 Chloride 93 L Carbon Dioxide 23 BUN 29 H Creatinine 5.52 H Glucose 80 Calcium 7.3 L Liver Function 01/24/19 Range/Units 04:33 Total Bilirubin 0.6 (0.3-1.0) mg/dL AST 221 H (13-39) Units/L ALT 140 H (7-52) Units/L Alkaline Phosphatase 143 H (34-104) Units/L Albumin 2.6 L (3.5-5.7) g/dL - ABG Interpretation ABG results: PT/INR, D-dimer PT 23.2 Seconds (9.4-12.1) H 01/24/19 04:33 - Attending Attestation I examined this patient and my medical decision-making was reviewed with the Res ident Physician Dr Bess. I agree with the documented findings, disposition and treatment plan as described except to the extent set forth below. Ms Alexis is admitted with acute hypoglycemia awake, in HD, improved energy, no confusion and stating she feels well and back to baseline. had low bs overnight and dextrose containging fluids resumed, which she did NOT have sxs from and was suprised to here. No cough, wheezing, sputum, fevers or chills gen- alert, awake,appears stated age cv- reg rate and rhythm, normal s1,s2, no murmurs appreciated, no pitting le edema lungs- ctabl, no wheezing, rhonchi or crackles, normal resp effort on room air neuro- AAOx3, CN grossly intact Acute Hypoglycemia likely 2/2 poor oral intake at home and possibly ? sepsis though less likely -back on dextrose containing fluids, monitor intake and bs now that she is more alert and back to baseline, will wean off as able, insulin labs remain pending Elevated transaminases suspect shocked liver 2/2 hypotension/hypoglycemia prior to admit Improving Elevated INR, resolved Liver US reviewed- hepatocellular disease, cannot rule out fatty liver - fu outpt -cont to trend daily, INR at level safe to resume home AC Lactic Acidosis without AG, resolved- cont ESRD as per nephro Fluid Overload 2/2 ESRD and non compliance with HD-resolved Afib RVR, resolved- cont home BB, and eliquis HTN with low normal BPS here- hold hydralazine and clinidine, cont bb as above, holding parameters on her opiate med Technically meet sepsis criteria, but given her clinical course low suspicion active infection- lactatic acidosis resolved, procalcitonin not overwhelming for infection, afebrile, normal wBC and doubt changes come from one dose of levaq uin- will stop abx and monitor off, if develops any sxs of signs of clinically deteriorating will re check procal for changes and re start abc and infectious work up Baseline chronic anemia vte ppx NOAC update- the lab triggered a repeat lactate level this afternoon for prior 2.1 and it is 3. Again she remains greatly clinically improved, is noting she feels better than baseline, without leukocytosis, fever, apparent s/s of infection. She is not a IVF bolus candidate due to her ESRD and volume overload risk. This elevated lactate may be the result of her shocked liver and it is overall greatly improved (from upper 7s) as are now liver function tests. Will hold on further work up/abx, cont to monitor. repeat level in am. If clinically deteriorates/clinical picture changes of course will adjust plan accordingly ___ <Otto Bess M - Last Filed: 01/24/19 14:12> (2) Pneumonia Qualifiers: Pneumonia type: due to unspecified organism Laterality: left Lung location: lower lobe of lung Qualified Code(s): J18.1 - Lobar pneumonia, unspecified organism (9) Hypertension Qualifiers: Hypertension type: essential hypertension Qualified Code(s): I10 - Essential (primary) hypertension <Annie Allison M - Last Filed: 01/24/19 15:47> (1) Afib Qualifiers: Atrial fibrillation type: paroxysmal Qualified Code(s): I48.0 - Paroxysmal atrial fibrillation
[2019-01-24] MEDS: Folic Acid 1 MG TABLET PO SCH (08:25)
[2019-01-24] MEDS: Metoprolol XL (24 HR) Succ 25 MG TAB.ER.24H PO SCH ×2 (08:25→14:26)
[2019-01-24] MEDS: *HR* HYDROcodone/Acet 5/325 mg TABLET PO PRN ×2 (09:14→18:51)
[2019-01-24] MEDS: Budesonide/Formoterol 160/4.5 1 PUFF INH IH SCH ×2 (10:41→19:44)
[2019-01-24] MEDS: 0.9 % Sodium Chloride 1,000 ML IVC ONE (12:23)
[2019-01-24] MEDS: *HR* OxyCODONE Immed Rel 5 MG TABLET PO PRN ×2 (13:50→22:38)
--- NOTE | 2019-01-24 15:43 | Nephrology Progress Note ---
Date of Encounter: 01/24/19 Time of Encounter: 12:00 - Assessment and Plan (1) ESRD (end stage renal disease) Current Visit: Yes Status: Chronic Continue HD with UF as tolerated Lytes remains stable except sodium at 129, should improve with HD Continue renal diet Continue fluid restriction (2) Hypoglycemia Current Visit: Yes Status: Acute Resolved Per primary team (3) Lactic acidosis Current Visit: Yes Status: Acute Per primary team (4) Anemia Current Visit: Yes Status: Chronic Hgb noted at 7.9, will monitor Goal hgb 10-11 Transfusion parameters per primary team Qualifiers: Anemia type: due to chronic kidney disease Chronic kidney disease stage: on chronic dialysis Qualified Code(s): N18.6 - End stage renal disease; D63.1 - Anemia in chronic kidney disease; Z99.2 - Dependence on renal dialysis (5) Hyperkalemia Current Visit: Yes Status: Acute Resolved, due to hypoglycemia Subjective Interval history: Pt seen and examined feels better today on HD today complaining of abdominal pain Objective - Vital Signs Vital signs: Vital Signs Temp Pulse Resp BP Pulse Ox 01/24/19 15:40 98.4 F 71 18 103/43 100 01/24/19 13:30 97.7 F 17 125/37 01/24/19 13:00 130/98 01/24/19 12:45 121/89 01/24/19 12:30 101/64 01/24/19 12:15 115/52 01/24/19 12:00 109/37 01/24/19 11:45 120/103 01/24/19 11:30 111/43 01/24/19 11:15 130/67 01/24/19 11:00 114/68 01/24/19 10:45 121/97 01/24/19 10:30 119/41 01/24/19 10:15 94/59 01/24/19 10:00 103/56 01/24/19 09:45 100/61 01/24/19 09:30 99.1 F 18 139/62 01/24/19 07:30 98.1 F 68 19 92/56 96 01/24/19 04:05 97.9 F 66 17 132/76 97 01/24/19 00:01 98.3 F 68 17 138/82 96 01/23/19 20:04 98.4 F 01/23/19 20:00 80 01/23/19 19:44 14 96 01/23/19 16:12 98.0 F 01/23/19 15:52 69 13 121/84 98 Intake and Output 01/23/19 01/24/19 01/24/19 23:59 07:59 15:59 Intake Total 120 / 1264 500 / 500 Output Total 0 / 0 0 / 0 Balance 120 / 1264 500 / 500 Intake: Oral 120 / 240 0 / 0 Intake, Rinseback and Flushes 500 / 500 Output: Urine 0 / 0 0 / 0 Total Dialysis (HD) Output 0 / 0 Other: Meal Dinner Percent of Meal Consumed 75% Blood Glucose* 78 88 78 Hemodialysis Net Fluid Removed 3000 (mL) - General Appearance General appearance: Present: chronically ill, fatigue EENT: Present: ATNC, mucous membranes moist Neck: Present: no JVD, supple Respiratory: Present: clear Cardiology: Present: no edema (LE bilat), normal S1, normal S2 Dialysis Vascular Access: Arteriovenous Fistula thrill: Yes bruit: Yes Gastrointestinal: Present: tenderness, no guarding, obese ( with healed calciphylasix scars and edema) Integumentary: Present: warm and dry Neurologic: Present: no focal deficit Musculoskeletal: Present: no deformities Psychiatric: Present: mood/affect appropriate, cooperative - Lab 01/24/19 04:33 01/24/19 04:33 Most recent lab results 01/24/19 04:33 Calcium 7.3 L Magnesium 1.7 Consult Discharge Plan - Plan Referrals: Peter Vicente DO [Primary Care Provider] -
[2019-01-24] MEDS: Apixaban 5 MG TABLET PO SCH (22:38)
[2019-01-25] MEDS: *HR* HYDROcodone/Acet 5/325 mg TABLET PO PRN (03:17)
[2019-01-25 05:14] LABS: Hematocrit 25.9 % (35.3-44.9); Hemoglobin 8.4 g/dL (11.5-15.4); Immature Platelets 5.1 % (1.1-6.1); Mean Corpuscular HGB Conc 32.4 g/dL (31.6-35.5); Mean Corpuscular Hemoglobin 36.2 pg (28.0-33.3); Mean Corpuscular Volume 111.6 fL (83.0-100.0); Mean Platelet Volume 10.6 fL (9.4-12.4); Red Blood Count 2.32 M/mcL (3.82-4.97); Red Cell Distribution Width 16.7 % (11.5-14.5); White Blood Count 7.7 K/mcL (4.3-11.1)
[2019-01-25 05:20] LABS: INR 2.1; Prothrombin Time 23.9 Seconds (9.4-12.1)
[2019-01-25 05:31] LABS: Albumin 2.6 g/dL (3.5-5.7); Albumin/Globulin Ratio 0.8 (1.1-2.2); Bilirubin,Total 0.7 mg/dL (0.3-1.0); Calcium 7.6 mg/dL (8.6-10.3); Globulin 3.4 g/dL (2.4-3.5); Magnesium 1.6 mg/dL (1.6-2.6); Potassium 4.5 mEq/L (3.5-5.1)
[2019-01-25 05:58] LABS: Vitamin B12 > 1500 pg/mL (250-1100)
[2019-01-25] MEDS: Budesonide/Formoterol 160/4.5 1 PUFF INH IH SCH ×2 (07:30→19:33)
[2019-01-25] MEDS: Metoprolol XL (24 HR) Succ 25 MG TAB.ER.24H PO SCH (08:43)
[2019-01-25] MEDS: Apixaban 5 MG TABLET PO SCH ×2 (08:43→21:22)
[2019-01-25] MEDS: Folic Acid 1 MG TABLET PO SCH (08:43)
[2019-01-25] MEDS: *HR* OxyCODONE Immed Rel 5 MG TABLET PO PRN (08:43)
[2019-01-25] MEDS ORDERED: levoFLOXacin 500 MG TABLET PO SCH (09:00)
--- NOTE | 2019-01-25 09:58 | Nephrology Progress Note ---
Date of Encounter: 01/25/19 Time of Encounter: 09:57 - Assessment and Plan (1) Anemia Current Visit: Yes Status: Chronic Hgb noted at 8.4, will monitor Goal hgb 10-11 Transfusion parameters per primary team Qualifiers: Anemia type: due to chronic kidney disease Chronic kidney disease stage: on chronic dialysis Qualified Code(s): N18.6 - End stage renal disease; D63.1 - Anemia in chronic kidney disease; Z99.2 - Dependence on renal dialysis (2) Hypoglycemia Current Visit: Yes Status: Acute Resolved Per primary team (3) ESRD (end stage renal disease) Current Visit: Yes Status: Chronic Continue HD with UF as tolerated Current regimen is TTS at [facility]. Plan for HD tomorrow. Continue renal diet Continue fluid restriction (4) Lactic acidosis Current Visit: Yes Status: Acute Per primary team (5) Hyperkalemia Current Visit: Yes Status: Acute Resolved, due to hypoglycemia Subjective Principal diagnosis: hypoglycemia Interval history: Pt seen and examined. Denies any chest pain or shortness of breath. Denies nausea, vomiting, diarrhea. Objective - Vital Signs Vital signs: Vital Signs Temp Pulse Resp BP Pulse Ox 01/25/19 08:47 91 01/25/19 08:39 72 133/71 01/25/19 07:41 98.6 F 68 16 88/45 91 01/25/19 07:30 18 92 01/25/19 00:35 99.8 F H 71 16 82/52 96 01/24/19 19:45 18 97 01/24/19 19:29 98.8 F 66 14 96/58 96 01/24/19 15:40 98.4 F 71 18 103/43 100 01/24/19 13:30 97.7 F 17 125/37 01/24/19 13:00 130/98 01/24/19 12:45 121/89 01/24/19 12:30 101/64 01/24/19 12:15 115/52 01/24/19 12:00 109/37 01/24/19 11:45 120/103 01/24/19 11:30 111/43 01/24/19 11:15 130/67 01/24/19 11:00 114/68 01/24/19 10:45 121/97 01/24/19 10:30 119/41 01/24/19 10:15 94/59 01/24/19 10:00 103/56 Intake and Output 01/24/19 01/25/19 01/25/19 23:59 07:59 15:59 Intake Total 60 / 60 Output Total 0 / 0 Balance 0 / 60 60 / 60 Intake: Oral 60 / 60 Output: Urine 0 / 0 Other: Weight 80.7 kg Blood Glucose* 101 60 Patient Weight 01/25/19 23:59 Weight 80.7 kg - General Appearance General appearance: Present: chronically ill, frail EENT: Present: ATNC, hearing intact, vision intact Neck: Present: supple Respiratory: Present: clear Cardiology: Present: edema (+1 pitting edema noted to bilat lower extremities.), normal S1, normal S2 Dialysis Vascular Access: Arteriovenous Fistula thrill: Yes bruit: Yes Gastrointestinal: Present: normoactive bowel sounds, no tenderness, no guarding Integumentary: Present: no rash, warm and dry Neurologic: Present: alert and oriented x3 Musculoskeletal: Present: no deformities, no erythema Psychiatric: Present: mood/affect appropriate, cooperative - Lab 01/25/19 04:55 01/25/19 04:55 Most recent lab results 01/25/19 04:55 Calcium 7.6 L Magnesium 1.6 Consult Discharge Plan - Plan Referrals: Peter Vicente DO [Primary Care Provider] -
--- NOTE | 2019-01-25 10:07 | Electrocardiograph Report ---
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
[2019-01-25 11:13] LABS: Proinsulin Intact 15.2 pmol/L (<=8.0)
--- NOTE | 2019-01-25 13:41 | Discharge Summary ---
<EstefanyAnnie - Last Filed: 01/25/19 15:12> - NOTES TO OUTPATIENT PROVIDER Notes to Outpatient Provider: She was admitted for hypoglycemia. Insulin labs were obtained, imaging of abd/pelvis this admit is without pancreas abnormality. Defer to outpt providers for further work up/management. She is referred to Endo for this recurrent problem in effort to avoid readmission. Sent home with plan for accu checks TID AC and HS with instruction to write down values and rx for glucose tabs. Her clonidine and hydralazine are being held on discharge due to low normotensive bps with beta katelin alone. Defer to outpt nephro to resume as appropriate. She had shocked liver suspected secondary to hypotension and hypoglycemia prior to admit with near resolution of transminitis by discharge.Liver US has suspected steatosis, follow outpt. Orders not resulted at time of discharge: Pending orders 01/21/19 20:34 Urinalysis Reflex Cult & Micro [URIN] Stat 01/21/19 20:35 Drug Screen, Urine [UCHEM] Stat 01/21/19 21:20 Culture,Blood [BC] Stat 01/23/19 14:06 Culture,Sputum with Gram Stain [RM] Routine 01/25/19 04:55 MMA (VIT B12 STATUS) AM 0400 01/26/19 04:00 Basic Metabolic Panel AM 0400 CBC no Diff [Complete Blood Count w/o Diff] [HEME] AM 04001/27/19 04:00 Basic Metabolic Panel AM 0400 CBC no Diff [Complete Blood Count w/o Diff] [HEME] AM 04001/28/19 04:00 Basic Metabolic Panel AM 0400 CBC no Diff [Complete Blood Count w/o Diff] [HEME] AM 0400 01/29/19 04:00 Basic Metabolic Panel AM 0400 CBC no Diff [Complete Blood Count w/o Diff] [HEME] AM 04001/30/19 04:00 Basic Metabolic Panel AM 0400 CBC no Diff [Complete Blood Count w/o Diff] [HEME] AM 0400 Date of Encounter: 01/25/19 - Discharge Diagnosis (1) Afib Status: Chronic Qualifiers: Atrial fibrillation type: paroxysmal Qualified Code(s): I48.0 - Paroxysmal atrial fibrillation (2) Hypoglycemia Status: Acute (3) Metabolic acidosis Status: Acute (4) Hyperkalemia Status: Acute (5) Hepatocellular damage Status: Acute Hospital course: Ms. Alexis is a 44 year old female - Time Spent with Patient Total time spent providing and/or coordinating discharge services: - Discharge Medications Prescriptions: New Dextrose [Glucose Tablets] 4 gm PO Q6H PRN #30 tab.chew PRN Reason: blood sugar less than 70 Continued Cholecalciferol (Vitamin D3) [Vitamin D3] 50,000 units PO QWEEK Lidocaine/Prilocaine [Emla] 1 appl TP AD Simethicone [Gas-X] 80 mg PO TID PRN 30 Days #90 tab.chew PRN Reason: Dyspepsia Albuterol Sulfate [Proventil Inhaler] 2 puff IH Q4H PRN 30 Days #2 inhaler PRN Reason: Shortness Of Breath Apixaban [Eliquis] 5 mg PO BID 30 Days #60 tablet Levothyroxine Sodium [Euthyrox] 100 mcg PO DAILY 30 Days #30 tablet Folic Acid 1 mg PO DAILY 30 Days #30 tablet Atorvastatin [Lipitor] 40 mg PO HS 30 Days #30 tablet Omeprazole [PriLOSEC] 20 mg PO DAILY 30 Days #30 capsule.dr Metoclopramide [Reglan] 5 mg PO 0800,1700 30 Days #60 tablet Budesonide/Formoterol 160/4.5 [Symbicort 160/4.5] 2 puff IH BIDR 30 Days #2 inh Metoprolol Succinate [Toprol Xl] 25 mg PO DAILY 30 Days #30 tab.er.24h Discontinued cloNIDine HCl [CloNIDine HCl] 0.1 mg PO BID 30 Days #60 tablet hydrALAZINE [HydrALAZINE] 50 mg PO BID 30 Days #60 tablet Home Medications: Cholecalciferol (Vitamin D3) [Vitamin D3] 50,000 units PO QWEEK 12/28/18 [History] Lidocaine/Prilocaine [Emla] 1 appl TP AD 12/28/18 [History] Albuterol Sulfate [Proventil Inhaler] 2 puff IH Q4H PRN 30 Days #2 inhaler 01/01/19 [Rx] Apixaban [Eliquis] 5 mg PO BID 30 Days #60 tablet 01/01/19 [Rx] Atorvastatin [Lipitor] 40 mg PO HS 30 Days #30 tablet 01/01/19 [Rx] Budesonide/Formoterol 160/4.5 [Symbicort 160/4.5] 2 puff IH BIDR 30 Days #2 inh 01/01/19 [Rx] Folic Acid 1 mg PO DAILY 30 Days #30 tablet 01/01/19 [Rx] Levothyroxine Sodium [Euthyrox] 100 mcg PO DAILY 30 Days #30 tablet 01/01/19 [Rx] Metoclopramide [Reglan] 5 mg PO 0800,1700 30 Days #60 tablet 01/01/19 [Rx] Metoprolol Succinate [Toprol Xl] 25 mg PO DAILY 30 Days #30 tab.er.24h 01/01/19 [Rx] Omeprazole [PriLOSEC] 20 mg PO DAILY 30 Days #30 capsule.dr 01/01/19 [Rx] Simethicone [Gas-X] 80 mg PO TID PRN 30 Days #90 tab.chew 01/01/19 [Rx] Dextrose [Glucose Tablets] 4 gm PO Q6H PRN #30 tab.chew 01/25/19 [Rx] Allergies/Adverse Reactions: Allergy/AdvReac Type Severity Reaction Status Date / Time Warfarin [From Coumadin] Allergy Anaphylaxis Verified 01/21/19 20:32 heparin AdvReac Severe Unresponsiv Verified 01/21/19 20:32 e Date of admission: 01/22/19 19:02 Primary care physician: Peter Vicente DO Consults: 01/22/19 01:36 Consult to Nephrology [CONS] Routine Consulting Provider: [facility]/THUY/EDEL Reason for Consult: ESRD, metabolic acidosis Call Completed: Yes 01/22/19 12:00 Consult to Dialysis [CONS] ONCE 01/24/19 07:45 Consult to Dialysis [CONS] ONCE 01/24/19 14:45 Consult to Nurse Navigator [CONS] Routine Comment: hd - Constitutional Vitals: Temp Pulse Resp BP Pulse Ox 98.4 F 70 17 87/47 96 01/25/19 12:04 01/25/19 12:04 01/25/19 12:04 01/25/19 12:04 01/25/19 12:04 - Patient Status Disposition: Home, Self-Care Condition: Good Overall status at discharge: patient is back to baseline - Discharge Instructions Follow Up With: Peter Vicente DO [Primary Care Provider] - [facility] [Provider Group] (recurrent hypoglycemia evaluation) Forms: ED Satisfaction Letter, Work/School Release Additional Instructions: YOU MUST FOLLOW UP WITH OUTPATIENT DOCTORS AND DIALYSIS. DO NOT MISS APPOINTMENTS THIS CAUSES YOUR CONDITIONS TO GO UNTREATED AND YOU WILL END UP BACK IN THE HOSPITAL. REFERRAL TO ENDOCRINOLIGIST FOR YOUR CHRONIC LOW BLOOD SUGAR PROBLEMS HAS BEEN PLACED. YOU SHOULD BE CONTACTED WITH APPT DATE/TIME. IN MEANTIME, SEE YOUR PRIMARY DOCTOR GUS ON DISCHARGE WHEN YOU GET HOME CHECK YOUR BLOOD SUGAR BEFORE EACH MEAL AND AT BEDTIME. YOU WERE GIVEN PRESCRIPTIONS FOR GLUCOSE METER AND TESTING SUPPLIES. YOU ALSO GOT A PRESCRIPTION SENT FOR GLUCOSE TABS If your blood glucose level is less than 70 or it is under 100 and you feel sick TAKE A GLUCOSE TAB AND CALL YOUR DOCTOR FOR FURTHER INSTRUCTION. If you cannot reach a doctor then call 911. Warning signs when your blood sugar gets low are confusion, sleepiness. EVERY TIME YOU CHECK YOUR BLOOD SUGAR RECORD THE LEVEL, DATE AND TIME IN A NOTEBOOK/OR PIECE OF PAPER. TAKE THIS TO YOUR DOCTORS APPT. YOU LIKELY NEED FURTHER OUTPATIENT WORK UP OF WHY YOUR BLOOD SUGAR GETS LOW THIS CAN BE A LIFE THREATENING CONDITION YOU ARE AWARE OF DO NOT HESITATE TO CALL DOCTORS OFFICE BY PHONE OR 911 IN EMERGENCY. Your Hydralazine and Clonidine are stopped. Your blood pressure is at goal with only your metoprolol. Your kidney doctors may have to add this back on at a later date - Diet and Activity Activity: increase activity as tolerated Diet: advance to your usual diet - Attending Attestation I examined this patient and my medical decision-making was reviewed with the Resident Physician Dr Bess. I agree with the documented findings, disposition and treatment plan as described except to the extent set forth below. Ms Alexis was admitted with acute hypoglycemia. She additionally was found to have shocked liver suspected from hypoglycemia and likely hypotension which she gets with pain meds and at times after HD. She was monitored for lactic acidosis without infectious source suspected to be secondary to liver process above. She is very high risk of readmission due to her non compliance. Her clinical picture has significantly improved throughout her admission and she is back to baseline. In effort to avoid readmissions she is being referred to endocrinology to further monitor her recurrent hypoglycemia. Also STRONGLY encourage outpt reduction in opiates as it makes her tired, hypertensive and causes her to miss meals. awake, family and resident at bedside. She is tired bc she took opiate but she is going to eat breakfast which is at her bedside. She has no new complaints. glucose levels this morning are stable off dextrose IVFs. Denies fevers, chills, cough or sob. Yesterday was the best she felt in a long time afternoon blood sugars normal. BP drop with opiate in morning and rechecked prior to dc. she refuses HHC to social work which is another risk for readmission gen- alert, awake,appears stated age cv- reg rate and rhythm, normal s1,s2, no murmurs appreciated, no pitting le edema, lungs- ctabl, normal resp effort on room air abd- soft, non tender, non distended neuro- AAOx3, CN grossly intact Acute Hypoglycemia likely 2/2 poor oral intake at home, resolved with improved intake here -off dextrose containing fluids, will refer to Endo outpt, insulin labs resulted by discharge and demonstrated his c peptide (in setting of ESRD was not unexpected) and high pro insulin with CT a/p this admission NOT demonstrating pancreatic masses. (she did not demonstrate clinical findings consistent with pancreatitis) and defer to outpt providers to follow and determine further work up and management, she may benefit from EUS if endo feels appropriate -Her glucose is stable when she eats meals routinely- plan for glucometer, TID AC HS accu checks on dc and rx for glucose tabs with instruction of when to take and contact PCP or 911 in emergency Elevated transaminases suspect shocked liver 2/2 hypotension/hypoglycemia prior to admit significantly improved Liver US reviewed- hepatocellular disease, cannot rule out fatty liver - fu outpt Lactic Acidosis without AG, resolved- cont ESRD as per nephro, no clear infectious source, suspect related to liver process above Fluid Overload 2/2 ESRD and non compliance with HD-resolved Afib RVR, resolved- cont home BB, and eliquis HTN with low normal BPS here after HD and opiates- hold hydralazine and clonidine on dc and fu with nephro/PCP, cont bb as above -on admit opiates were ordered by admitter as pt requesting, though confirmed not home med, NO OPIATES as reduces her BP with each dose and she should not be on them with ESRD Technically met sepsis criteria, but given her clinical course low suspicion active infection- lactatic acidosis resolved, procalcitonin not overwhelming for infection, afebrile, normal wBC and doubt changes come from one dose of levaquin- stable off abx Baseline chronic anemia dispo to home as she refuses HHC time spent on dc 45 min <Otto Bess - Last Filed: 01/25/19 19:08> Orders not resulted at time of discharge: Pending orders 01/21/19 20:34 Urinalysis Reflex Cult & Micro [URIN] Stat 01/21/19 20:35 Drug Screen, Urine [UCHEM] Stat 01/21/19 21:20 Culture,Blood [BC] Stat 01/23/19 14:06 Culture,Sputum with Gram Stain [RM] Routine 01/25/19 04:55 MMA (VIT B12 STATUS) AM 04001/26/19 04:00 Basic Metabolic Panel AM 0400 CBC no Diff [Complete Blood Count w/o Diff] [HEME] AM 04001/27/19 04:00 Basic Metabolic Panel AM 0400 CBC no Diff [Complete Blood Count w/o Diff] [HEME] AM 04001/28/19 04:00 Basic Metabolic Panel AM 0400 CBC no Diff [Complete Blood Count w/o Diff] [HEME] AM 0400 01/29/19 04:00 Basic Metabolic Panel AM 0400 CBC no Diff [Complete Blood Count w/o Diff] [HEME] AM 0400 01/30/19 04:00 Basic Metabolic Panel AM 0400 CBC no Diff [Complete Blood Count w/o Diff] [HEME] AM 0400 Date of Encounter: 01/25/19 Time of Encounter: 09:00 - Discharge Diagnosis (1) Hypoglycemia Priority: Primary Status: Acute (2) Pneumonia Priority: Secondary Status: Acute Qualifiers: Pneumonia type: due to unspecified organism Laterality: left Lung location: lower lobe of lung Qualified Code(s): J18.1 - Lobar pneumonia, unspecified organism (3) Hepatocellular damage Priority: Secondary Status: Acute (4) Metabolic acidosis Priority: Secondary Status: Acute (5) Atrial fibrillation with RVR Priority: Secondary Status: Acute (6) ESRD (end stage renal disease) Priority: Secondary Status: Chronic (7) Hypoalbuminemia Priority: Secondary Status: Chronic (8) Hyperkalemia Priority: Secondary Status: Chronic (9) Hypertension Priority: Secondary Status: Chronic Qualifiers: Hypertension type: essential hypertension Qualified Code(s): I10 - Essential (primary) hypertension Hospital course: Ms. Alexis is a 44 year old female with a past medical history of end-stage renal disease, noncompliant with dialysis,, type 2 diabetes, A. fib, hypertension, coronary artery disease who presented to the emergency department with main complaint of feeling "funny". The patient was seen in the emergency department on January 17 with the complaints of cough, intermittent fevers, shortness of breath. There was concern for suspected hospital-acquired pneumonia however the patient refused admission at that time and was given a dose of Levaquin with oral Omnicef. The patient reports that she did take her entire course of Omnicef. Additionally she reports that she completed a full session of dialysis on January 20. She states that her cough and shortness of breath improved over the weekend however she has had decreased appetite and poor oral intake. She denied any fevers, chills, chest pain, shortness of breath, nausea, vomiting, ch anges in urinary or bowel symptoms. In the emergency department she was found to have a glucose level of 10 and her vitals were significant for hypertension and tachycardia. Patient was found to have a wide anion gap metabolic acidosis, potassium 6.0, sodium 131 and a bicarbonate of 16. Additionally her lactate level was 7.8 and she had a significantly elevated transaminases. Troponin was 0.04. The patient was admitted to the hospital for severe hypoglycemia, lactic acidosis, A. fib RVR. Additionally she did have significantly elevated transaminases with an increase in her PT/INR. Her Eliquis was held and her liver enzymes were trended. Her bilirubin was within normal limits. This was believed to be consistent with severe hepatocellular injury secondary to ischemia in the setting of hypoglycemia and hypotension. Her liver enzymes did trend downward and were unremarkable prior to discharge. Her PT/INR improved, she was resumed on her Eliquis on hospital day 3. She was started on a Cardizem drip for her A. fib which was stopped on hospital day 2 with no return of symptoms. She was given 4 A of bicarbonate and was started on a bicarbonate and D5 drip for her acidosis/hypoglycemia. Additionally she did become leukopenic hospital day 2. There was concern for possible pneumonia as evidenced by an opacity on chest x-ray as read by the radiologist. Pro-calcitonin was 1.25 on admission and the patient was given a dose of Levaquin and started on Vanco and Zosyn. Her lactic acid levels were trended and quickly returned to normal, although there was a slight uptake on hospital day 4 which resolved prior to discharge. Her pro-calcitonin did increase during the course of her admission however she had no signs or symptoms of pneumonia and her vitals were within normal limits hospital day 3. It was decided that this was likely not a pneumonia and her antibiotics were held. She did have problems with her glucose, remained in the low 80s on hospital day 4. Fasting insulin levels, proinsulin, C-peptide were ordered and were all significantly elevated, indicating a possible insulinoma. She had developed an appetite on hospital day 4 and was able to tolerate food and no longer required the D5 drip to keep her sugars within normal limits. During her hospital stay she did have some bouts of hypotension, occasionally in the 90s over 60s. However this was believed to be secondary to her 2 rounds of hemodialysis she received during her hospital stay in addition to nighttime pain medication administration. The patient's blood pressure and blood sugars were stable on hospital day 4 throughout the day, she did not have a white count, was not complaining of any respiratory complaints, and a good appetite, and her vitals were within normal limits. She was deemed medically stable for discharge with close follow-up with her primary care provider and a referral to an multifocal lens assembler for workup of what could potentially be a insulin secreting pancreatic tumor. The patient was instructed on discharge to take at minimum 3 blood sugar readings per day and was given glucose tablets and instructed to take 1 if her blood sugars below 100. The patient was given detailed instructions and educated on the importance of following the plan of care and voiced understanding and agreed with our course of action. Discharge discussed with: patient, nurse - Time Spent with Patient Total time spent providing and/or coordinating discharge services: Time spent: Greater than 30 minutes Date of admission: 01/22/19 19:02 Primary care physician: Peter Vicente DO Consults: 01/22/19 01:36 Consult to Nephrology [CONS] Routine Consulting Provider: [facility]YLOR/THUY/EDEL Reason for Consult: ESRD, metabolic acidosis Call Completed: Yes 01/22/19 12:00 Consult to Dialysis [CONS] ONCE 01/24/19 07:45 Consult to Dialysis [CONS] ONCE 01/24/19 14:45 Consult to Nurse Navigator [CONS] Routine Comment: hd Discharging clinician: Annie Allison Anticipated date of discharge: 01/25/19 - Constitutional Vitals: Temp Pulse Resp BP Pulse Ox 98.4 F 70 17 87/47 96 01/25/19 12:04 01/25/19 12:04 01/25/19 12:04 01/25/19 12:04 01/25/19 12:04 Exam: Gen.: Alert and oriented 3, disheveled, yellow-appearing skin, obese Head: Atraumatic normocephalic Eyes: External ocular muscles intact, anicteric ENT: Oropharynx clear, poor dentition, mucous membranes moist Neck: Thyroid not palpable, no evidence of lymphadenopathy CV: Grade 3 systolic murmur heard best at the left and right second intercostal location, regular rate and rhythm Lungs: Clear to auscultation bilaterally, no wheezes, rales, rhonchi appreciated on exam Abdomen: Mildly tender to exam and erythematous in the right lower quadrant pannus, subcutaneous nodules appreciated diffusely across abdomen, nonrigid Extremities: Patient has some mild bilateral lower extremity edema, no rashes noted MSK: Able to move arms and legs, strength intact, full range of motion and gait not assessed Neuro: No focal deficits appreciated, no paresthesias, numbness
[2019-01-25] MEDS ORDERED: levoFLOXacin 500 MG/100 ML 500 MG/100 ML BAG IVPB SCH (17:00)
--- NOTE | 2019-01-25 17:20 | Event Note ---
Date of Encounter: 01/25/19 Time of Encounter: 17:00 Pt is stating she cannot discharge as ordered today due to her car registration being and needing to go to the [facility] in the am which would make her miss dialysis. And she has no other ride to get to HD. So she is going to stay at hospital overnight, get HD as scheduled and then dc after. She is NOT to have opiates (orders discontinued) as she is NOT prescribed them at home and they cause her hypotension. Given pharmacy will be closed tomorrow, RN assisted in getting rx for glucose tab and glucometer w testing supplies filled and brought to bedside.
[2019-01-25] MEDS: Acetaminophen 325 MG TABLET PO PRN (21:22)
[2019-01-26] MEDS: Budesonide/Formoterol 160/4.5 1 PUFF INH IH SCH ×2 (07:36→19:21)
[2019-01-26] MEDS: Metoprolol XL (24 HR) Succ 25 MG TAB.ER.24H PO SCH (07:53)
[2019-01-26] MEDS: Folic Acid 1 MG TABLET PO SCH (07:53)
[2019-01-26] MEDS: Apixaban 5 MG TABLET PO SCH ×2 (07:53→22:01)
[2019-01-26 08:21] LABS: Hematocrit 26.9 % (35.3-44.9); Hemoglobin 8.4 g/dL (11.5-15.4); Mean Corpuscular HGB Conc 31.2 g/dL (31.6-35.5); Mean Corpuscular Hemoglobin 36.1 pg (28.0-33.3); Mean Corpuscular Volume 115.5 fL (83.0-100.0); Mean Platelet Volume 11.5 fL (9.4-12.4); Red Blood Count 2.33 M/mcL (3.82-4.97); White Blood Count 9.6 K/mcL (4.3-11.1)
[2019-01-26 08:23] LABS: Platelet Count 57 K/mcL (140-400)
[2019-01-26] MEDS ORDERED: 0.9 % Sodium Chloride 250 ML IVC PRN (08:27)
[2019-01-26 08:37] LABS: Calcium 7.6 mg/dL (8.6-10.3); Potassium 5.3 mEq/L (3.5-5.1)
--- NOTE | 2019-01-26 09:41 | Nephrology Progress Note ---
Date of Encounter: 01/26/19 Time of Encounter: 09:40 - Assessment and Plan (1) Anemia Current Visit: Yes Status: Chronic Qualifiers: Anemia type: due to chronic kidney disease Chronic kidney disease stage: on chronic dialysis Qualified Code(s): N18.6 - End stage renal disease; D63.1 - Anemia in chronic kidney disease; Z99.2 - Dependence on renal dialysis (2) Hypoglycemia Current Visit: Yes Status: Acute (3) ESRD (end stage renal disease) Current Visit: Yes Status: Chronic (4) Lactic acidosis Current Visit: Yes Status: Acute (5) Hyperkalemia Current Visit: Yes Status: Acute Subjective Principal diagnosis: hypoglycemia Objective - Vital Signs Vital signs: Vital Signs Temp Pulse Resp BP Pulse Ox 01/26/19 07:37 98.8 F 68 16 95/65 97 01/26/19 04:33 98.7 F 70 16 106/69 97 01/26/19 00:29 98.5 F 67 17 109/64 98 01/25/19 19:34 18 96 01/25/19 19:15 99.3 F 70 17 96/56 95 01/25/19 17:07 98.7 F 74 18 84/46 92 01/25/19 15:45 102/60 01/25/19 12:04 98.4 F 70 17 87/47 96 Intake and Output 01/25/19 01/26/19 01/26/19 23:59 07:59 15:59 Intake Total 240 / 240 Output Total 0 / 0 Balance 0 / 330 240 / 240 Intake: Oral 240 / 240 Output: Urine 0 / 0 Other: Weight 82.6 kg Blood Glucose* 95 49 77 Patient Weight 01/26/19 23:59 Weight 82.6 kg - Lab 01/26/19 06:44 01/26/19 06:44 Most recent lab results 01/26/19 06:44 Calcium 7.6 L Consult Discharge Plan - Plan Additional Instructions: YOU MUST FOLLOW UP WITH OUTPATIENT DOCTORS AND DIALYSIS. DO NOT MISS APPOINTMENTS THIS CAUSES YOUR CONDITIONS TO GO UNTREATED AND YOU WILL END UP BACK IN THE HOSPITAL. REFERRAL TO ENDOCRINOLIGIST FOR YOUR CHRONIC LOW BLOOD SUGAR PROBLEMS HAS BEEN PLACED. YOU SHOULD BE CONTACTED WITH APPT DATE/TIME. IN MEANTIME, SEE YOUR PRIMARY DOCTOR GUS ON DISCHARGE WHEN YOU GET HOME CHECK YOUR BLOOD SUGAR BEFORE EACH MEAL AND AT BEDTIME. YOU WERE GIVEN PRESCRIPTIONS FOR GLUCOSE METER AND TESTING SUPPLIES. YOU ALSO GOT A PRESCRIPTION SENT FOR GLUCOSE TABS If your blood glucose level is less than 70 or it is under 100 and you feel sick TAKE A GLUCOSE TAB AND CALL YOUR DOCTOR FOR FURTHER INSTRUCTION. If you cannot reach a doctor then call 911. Warning signs when your blood sugar gets low are confusion, sleepiness. EVERY TIME YOU CHECK YOUR BLOOD SUGAR RECORD THE LEVEL, DATE AND TIME IN A NOTEBOOK/OR PIECE OF PAPER. TAKE THIS TO YOUR DOCTORS APPT. YOU LIKELY NEED FURTHER OUTPATIENT WORK UP OF WHY YOUR BLOOD SUGAR GETS LOW THIS CAN BE A LIFE THREATENING CONDITION YOU ARE AWARE OF DO NOT HESITATE TO CALL DOCTORS OFFICE BY PHONE OR 911 IN EMERGENCY. Your Hydralazine and Clonidine are stopped. Your blood pressure is at goal with only your metoprolol. Your kidney doctors may have to add this back on at a later date Referrals: [facility] [place] [Provider Group] (recurrent hypoglycemia evaluation) Peter Vicente DO [Primary Care Provider] - Prescriptions: Dextrose [Glucose Tablets] 4 gm PO Q6H PRN #30 tab.chew PRN Reason: blood sugar less than 70
--- NOTE | 2019-01-26 11:20 | Internal Med Progress Note ---
Hospitalist Progress Note - Encounter Date of Encounter: 01/26/19 Time of Encounter: 10:00 - Subjective Interval History: in HD, rn at bedside. she is tired and cold in HD bedside glucose in 90s. VS stable. She is generally not feeling well today. no fevers or chills. agreeable to staying inpt and no dc given low glucose this morning - Exam Vitals: Temp Pulse Resp BP Pulse Ox 99.1 F 68 16 103/69 97 01/26/19 10:25 01/26/19 07:37 01/26/19 10:25 01/26/19 11:10 01/26/19 07:37 Exam: gen- alert, awake,appears stated age cv- reg rate and rhythm, normal s1,s2, no murmurs appreciated, no pitting edema lungs- ctabl, normal resp effort on room air abd- soft, non tender, non distended, + bs neuro- AAOx3, CN grossly intact - Assessment and Plan (1) Hypoglycemia Current Visit: Yes Status: Acute (2) Afib Current Visit: Yes Status: Chronic (3) Hepatocellular damage Current Visit: Yes Status: Acute - Summary of Assessment and Plan Summary of Assessment and Plan: Acute Hypoglycemia likely 2/2 poor oral intake at home, resolved with improved intake here but now still AM glucose levels are low -off dextrose containing fluids, will refer to Endo outpt but none available inpt, insulin labs resulted and demonstrated his c peptide (in setting of ESRD was not unexpected) and high pro insulin with CT a/p this admission NOT demonstrating pancreatic masses. (she did not demonstrate clinical findings consistent with pancreatitis) -this is a difficult case as this is a chronic problem for her that has not been resolved, she likely needs a EUS to further eval pancreas -Her glucose is stable when she eats meals routinely- holding any opiates which she requests for pain routinely so that her mentation is best possible for routine meals -will watch bs over next 24 hrs and further determine paln, if this continues to be an issue she may benefit from transfer to facilty with endo and availablility to check EUS Elevated transaminases suspect shocked liver 2/2 hypotension/hypoglycemia prior to admit significantly improved Liver US reviewed- hepatocellular disease, cannot rule out fatty liver - fu outpt Lactic Acidosis without AG, resolved- cont ESRD as per nephro, no clear inf ectious source, suspect related to liver process above Fluid Overload 2/2 ESRD and non compliance with HD-resolved Afib RVR, resolved, now pAfib rate controlled- cont home BB, and eliquis HTN with low normal BPS here after HD and opiates- hold hydralazine and clonidine, cont bb as above Baseline chronic anemia vte ppx NOAC Internal Medicine: Result - Labs CBC & Chem 7: 01/26/19 06:44 01/26/19 06:44 Labs: Short CBC 01/26/19 Range/Units 06:44 WBC 9.6 (4.3-11.1) K/mcL Hgb 8.4 L (11.5-15.4) g/dL Hct 26.9 L (35.3-44.9) % Plt Count 57 L (140-400) K/mcL BMP 01/26/19 06:44 Sodium 128 L Potassium 5.3 H Chloride 91 L Carbon Dioxide 26 BUN 30 H Creatinine 4.72 H Glucose 38 L* Calcium 7.6 L - ABG Interpretation ABG results: PT/INR, D-dimer PT 23.9 Seconds (9.4-12.1) H 01/25/19 04:55 Consult Discharge Plan - Plan Additional Instructions: YOU MUST FOLLOW UP WITH OUTPATIENT DOCTORS AND DIALYSIS. DO NOT MISS APPOINTMENTS THIS CAUSES YOUR CONDITIONS TO GO UNTREATED AND YOU WILL END UP BACK IN THE HOSPITAL. REFERRAL TO ENDOCRINOLIGIST FOR YOUR CHRONIC LOW BLOOD SUGAR PROBLEMS HAS BEEN PLACED. YOU SHOULD BE CONTACTED WITH APPT DATE/TIME. IN MEANTIME, SEE YOUR PRIMARY DOCTOR GUS ON DISCHARGE WHEN YOU GET HOME CHECK YOUR BLOOD SUGAR BEFORE EACH MEAL AND AT BEDTIME. YOU WERE GIVEN PRESCRIPTIONS FOR GLUCOSE METER AND TESTING SUPPLIES. YOU ALSO GOT A PRESCRIPTION SENT FOR GLUCOSE TABS If your blood glucose level is less than 70 or it is under 100 and you feel sick TAKE A GLUCOSE TAB AND CALL YOUR DOCTOR FOR FURTHER INSTRUCTION. If you cannot reach a doctor then call 911. Warning signs when your blood sugar gets low are confusion, sleepiness. EVERY TIME YOU CHECK YOUR BLOOD SUGAR RECORD THE LEVEL, DATE AND TIME IN A NOTEBOOK/OR PIECE OF PAPER. TAKE THIS TO YOUR DOCTORS APPT. YOU LIKELY NEED FURTHER OUTPATIENT WORK UP OF WHY YOUR BLOOD SUGAR GETS LOW THIS CAN BE A LIFE THREATENING CONDITION YOU ARE AWARE OF DO NOT HESITATE TO CALL DOCTORS OFFICE BY PHONE OR 911 IN EMERGENCY. Your Hydralazine and Clonidine are stopped. Your blood pressure is at goal with only your metoprolol. Your kidney doctors may have to add this back on at a late r date Referrals: [facility] [Provider Group] (recurrent hypoglycemia evaluation) Peter Vicente DO [Primary Care Provider] - Prescriptions: Dextrose [Glucose Tablets] 4 gm PO Q6H PRN #30 tab.chew PRN Reason: blood sugar less than 70 (2) Afib Qualifiers: Atrial fibrillation type: paroxysmal Qualified Code(s): I48.0 - Paroxysmal atrial fibrillation
[2019-01-26] MEDS: Acetaminophen 325 MG TABLET PO PRN (18:52)
[2019-01-27] MEDS: Acetaminophen 325 MG TABLET PO PRN ×2 (00:44→09:30)
[2019-01-27 02:59] LABS: Albumin 2.2 g/dL (3.5-5.7); Albumin/Globulin Ratio 0.8 (1.1-2.2); Bilirubin,Total 0.6 mg/dL (0.3-1.0); Calcium 7.2 mg/dL (8.6-10.3); Globulin 2.6 g/dL (2.4-3.5); Potassium 4.1 mEq/L (3.5-5.1); Total Protein 4.8 g/dL (6.4-8.9)
[2019-01-27] MEDS: Budesonide/Formoterol 160/4.5 1 PUFF INH IH SCH (07:40)
--- NOTE | 2019-01-27 08:00 | Internal Med Progress Note ---
Hospitalist Progress Note - Encounter Date of Encounter: 01/27/19 Time of Encounter: 08:30 - Subjective Interval History: awake, visiting at bedside. She feels very well today and has no complaints. she did not have any hypoglycemic events overnight and is medically ready for discharge. the dc plan was discussed in detail again with pt and her . they have no questions. - Exam Vitals: Temp Pulse Resp BP Pulse Ox 99.4 F 75 17 148/66 98 01/27/19 03:58 01/27/19 03:58 01/27/19 07:40 01/27/19 03:58 01/27/19 07:40 Exam: gen- alert, awake,appears stated age, nad cv- reg rate and rhythm, normal s1,s2, no pitting edema lungs- ctabl, normal resp effort on room air abd- soft, non tender, non distended, + bs neuro- AAOx3 - Assessment and Plan (1) Hypoglycemia Status: Resolved (2) Afib Status: Chronic (3) Hepatocellular damage Status: Acute - Summary of Assessment and Plan Summary of Assessment and Plan: Acute Hypoglycemia likely 2/2 poor oral intake at home, resolved with improved intake here Chronic problem- on chart review over the at least one year with multiple admissions she demonstrated baseline blood sugars of mostly 60-70s and frequent drops to as low as 40s-50s. She rarely has a blood sugar over 100. -off dextrose containing fluids, will refer to Endo outpt but none available inpt, insulin labs resulted and demonstrated his c peptide (in setting of ESRD was not unexpected) and high pro insulin with CT a/p this admission NOT demonstrating pancreatic masses. (she did not demonstrate clinical findings consistent with pancreatitis) -this is a difficult case as this is a chronic problem for her that has not been resolved, she likely needs a EUS to further eval pancreas -Her glucose is stable when she eats meals routinely- holding any opiates which she requests for pain routinely so that her mentation is best possible for routine meals -she has had normal bs to slightly elevated blood sugars this mornign and is stable for dc to home with glucometer and glucose tabs at bedside for discharge Elevated transaminases suspect shocked liver 2/2 hypotension/hypoglycemia prior to admit resolved/near normal Liver US reviewed- hepatocellular disease, cannot rule out fatty liver - fu outpt Lactic Acidosis without AG, resolved- cont ESRD as per nephro, no clear infectious source, suspect related to liver process above Fluid Overload 2/2 ESRD and non compliance with HD-resolved Afib RVR, resolved, now pAfib rate controlled- cont home BB, and eliquis HTN with low normal BPS here after HD - hold hydralazine and clonidine as she has not needed them throughout entire admission, cont bb as above Baseline chronic anemia Hypomagnesemia- received 2gm mag prior to dc vte ppx NOAC discharged to home with Plan of Care Discussed with: patient (with present) Internal Medicine: Result - Labs CBC & Chem 7: 01/26/19 06:44 01/27/19 02:02 Labs: Short CBC 01/26/19 Range/Units 06:44 WBC 9.6 (4.3-11.1) K/mcL Hgb 8.4 L (11.5-15.4) g/dL Hct 26.9 L (35.3-44.9) % Plt Count 57 L (140-400) K/mcL BMP 01/26/19 01/27/19 06:44 02:02 Sodium 128 L 131 L Potassium 5.3 H 4.1 Chloride 91 L 96 L Carbon Dioxide 26 25 BUN 30 H 18 Creatinine 4.72 H 3.30 H Glucose 38 L* 140 H Calcium 7.6 L 7.2 L Liver Function 01/27/19 Range/Units 02:02 Total Bilirubin 0.6 (0.3-1.0) mg/dL AST 24 (13-39) Units/L ALT 46 (7-52) Units/L Alkaline Phosphatase 109 H (34-104) Units/L Albumin 2.2 L (3.5-5.7) g/dL - ABG Interpretation ABG results: PT/INR, D-dimer PT 23.9 Seconds (9.4-12.1) H 01/25/19 04:55 Consult Discharge Plan - Plan Additional Instructions: YOU MUST FOLLOW UP WITH OUTPATIENT DOCTORS AND DIALYSIS. DO NOT MISS APPOINTMENTS THIS CAUSES YOUR CONDITIONS TO GO UNTREATED AND YOU WILL END UP BACK IN THE HOSPITAL. REFERRAL TO ENDOCRINOLIGIST FOR YOUR CHRONIC LOW BLOOD SUGAR PROBLEMS HAS BEEN PLACED. YOU SHOULD BE CONTACTED WITH APPT DATE/TIME. IN MEANTIME, SEE YOUR PRIMARY DOCTOR GUS ON DISCHARGE WHEN YOU GET HOME CHECK YOUR BLOOD SUGAR BEFORE EACH MEAL AND AT BEDTIME. YOU WERE GIVEN PRESCRIPTIONS FOR GLUCOSE METER AND TESTING SUPPLIES. YOU ALSO GOT A PRESCRIPTION SENT FOR GLUCOSE TABS If your blood glucose level is less than 70 or it is under 100 and you feel sick TAKE A GLUCOSE TAB AND CALL YOUR DOCTOR FOR FURTHER INSTRUCTION. If you cannot reach a doctor then call 911. Warning signs when your blood sugar gets low are confusion, sleepiness. EVERY TIME YOU CHECK YOUR BLOOD SUGAR RECORD THE LEVEL, DATE AND TIME IN A NOTEBOOK/OR PIECE OF PAPER. TAKE THIS TO YOUR DOCTORS APPT. YOU LIKELY NEED FURTHER OUTPATIENT WORK UP OF WHY YOUR BLOOD SUGAR GETS LOW THIS CAN BE A LIFE THREATENING CONDITION YOU ARE AWARE OF DO NOT HESITATE TO CALL DOCTORS OFFICE BY PHONE OR 911 IN EMERGENCY. Your Hydralazine and Clonidine are stopped. Your blood pressure is at goal with only your metoprolol. Your kidney doctors may have to add this back on at a later date Referrals: [facility] [Provider Group] (web-requested, the office will call the patient to schedule a follow up appointment. ) Peter Vicente DO [Primary Care Provider] - (The patient will need to call the office to schedule a follow up appointment within one week of discharge. ) Prescriptions: Dextrose [Glucose Tablets] 4 gm PO Q6H PRN #30 tab.chew PRN Reason: blood sugar less than 70 (2) Afib Qualifiers: Atrial fibrillation type: paroxysmal Qualified Code(s): I48.0 - Paroxysmal atrial fibrillation
[2019-01-27 08:03] VITALS: BP 137/69
[2019-01-27] MEDS: Metoprolol XL (24 HR) Succ 25 MG TAB.ER.24H PO SCH (09:22)
[2019-01-27] MEDS: Folic Acid 1 MG TABLET PO SCH (09:23)
[2019-01-27] MEDS: Apixaban 5 MG TABLET PO SCH (09:23)
== END 2019-01-27 10:52 | disposition home or self-care (01) | DRG 420 ==
LOC: ICNU 20:25 → EMEROOARM 20:25 → SUATTDRO 01-22 01:16 → ICNU 01-22 02:33 → SUATTDRO 01-22 19:02 → 2ANU 01-23 22:24
PROVIDERS: ADMIT Internal Medicine; ATTEND Internal Medicine

== ENCOUNTER 2019-01-30 11:38 | Inpatient (IN) ==
[2019-01-30] MEDS ORDERED: Morphine Sulfate 2 MG/ML SYRINGE IVP ONE (12:22)
[2019-01-30] MEDS ORDERED: Ondansetron 4 MG/2 ML VIAL IVP ONE (12:22)
--- NOTE | 2019-01-30 12:25 | Emergency Department Note ---
Disposition Clinical Impression: Shortness of breath, Hyperkalemia, Pleural effusion, Anasarca associated with disorder of kidney Disposition: Admitted As Inpatient Condition: Fair Time of Disposition: 16:57 Abdominal Pain HPI - General Chief Complaint: ED General Medical Stated Complaint: general illness Time Seen by Provider: 01/30/19 11:42 Source: patient, EMS - History of Present Illness HPI Narrative: Patient is 44-year-old female presents to emergency room with generalized weak ness, nausea, lower abdominal pain. The patient states symptoms been ongoing for last 2 days. The patient states that the pain is somewhat sharp in nature across her lower aspect of the abdomen, the patient denies any upper abdominal pain, chest pain, shortness of breath. She denies any fevers or chills. She denies any cough or congestion. The patient states that she does not make urine secondary to dialysis. The patient denies any other constipation or diarrhea complaints. Patient complains of soreness especially to the lateral aspects of the right and left lower quadrants. The patient denies any back pain. She denies any focal weakness or focal numbness. Patient states that pressure to the region make symptoms worse, nothing is making symptoms better. Pain Scale: 8 - Related Data Home Medications Medication Instructions Recorded Confirmed Cholecalciferol (Vitamin D3) 50,000 units PO QWEEK 12/28/18 01/22/19 [Vitamin D3] Lidocaine/Prilocaine [Emla] 1 appl TP AD 12/28/18 01/22/19 Previous Rx's Medication Instructions Recorded Albuterol Sulfate [Proventil 2 puff IH Q4H PRN 30 Days #2 01/01/19 Inhaler] inhaler Apixaban [Eliquis] 5 mg PO BID 30 Days #60 tablet 01/01/19 Atorvastatin [Lipitor] 40 mg PO HS 30 Days #30 tablet 01/01/19 Budesonide/Formoterol 160/4.5 2 puff IH BIDR 30 Days #2 inh 01/01/19 [Symbicort 160/4.5] Folic Acid 1 mg PO DAILY 30 Days #30 tablet 01/01/19 Levothyroxine Sodium [Euthyrox] 100 mcg PO DAILY 30 Days #30 tablet 01/01/19 Metoclopramide [Reglan] 5 mg PO 0800,1700 30 Days #60 01/01/19 tablet Metoprolol Succinate [Toprol Xl] 25 mg PO DAILY 30 Days #30 01/01/19 tab.er.24h Omeprazole [PriLOSEC] 20 mg PO DAILY 30 Days #30 01/01/19 capsule.dr Garzaethiconyuliana [Gas-X] 80 mg PO TID PRN 30 Days #90 01/01/19 tab.chew Dextrose [Glucose Tablets] 4 gm PO Q6H PRN #30 tab.chew 01/25/19 Allergies Allergy/AdvReac Type Severity Reaction Status Date / Time Warfarin [From Coumadin] Allergy Anaphylaxis Verified 01/21/19 20:32 heparin AdvReac Severe Unresponsiv Verified 01/21/19 20:32 e Review of Systems: As mentioned per history of present illness and as follows. Constitutional: Negative for chills or fever HENT: Negative for sore throat. Eyes: Negative for visual disturbance Respiratory: Negative for shortness of breath. Cardiovascular: Negative for palpitations. Gastrointestinal: Positive for abdominal pain Genitourinary: Negative for dysuria Musculoskeletal: Negative for back pain. Skin: Negative for rash. Neurological: Negative for focal weakness Psychiatric/Behavioral: Positive for depression Abdominal Pain PMH - Past Medical History Medical history: Reports: asthma, atrial fibrillation, diabetes, dialysis, GI bleed, hyperlipidemia, hypertension, renal disease, thyroid disease Female Surgical History: Reports: other [employer] history: Reports: bilateral tubal ligation Psychiatric history: Reports: no psych history - Social History Smoking status: Never smoker Alcohol use: Reports: none Drug use: Reports: none Physical Exam PHYSICAL EXAM Constitutional: Well developed, Well nourished, No acute distress, Non-toxic appearance. HENT: Normocephalic, Atraumatic, Bilateral external ears normal, Oropharynx moist, No oral exudates, Nose normal. Neck- Normal range of motion, No tenderness, Supple. Eyes: PERRL, EOMI, Conjunctiva normal,. Cardiovascular: Regular rate and rhythm without clicks, rubs, gallops or murmurs. Respiratory: Normal breath sounds, No respiratory distress, No wheezing, rhonchi, or crackles. GI: Soft, patient has tenderness to the right and left lower quadrant examination there is evidence of thickened skin noted to this region as well., no evidence of guarding or peritoneal signs. Bowel sounds are active. Musculoskeletal: Good range of motion in all major joints. No tenderness to palpation or major deformities noted. +5/5 strength noted to all extremities. Integument: Warm, Dry, patient does have what appears to be several scars across the lower aspect the abdomen, there is thickened skin also appreciated the lower abdomen, do not appreciate cellulitis. Neurologic: Alert & oriented x 3, Normal sensory function, No focal deficits noted. CN II-XII grossly intact. - General Limitations: no limitations General appearance: alert, in no apparent distress Course Vital Signs Temperature 97.5 F L 01/30/19 11:48 Pulse Rate 72 01/30/19 11:48 Respiratory Rate 16 01/30/19 11:48 Blood Pressure 147/101 01/30/19 11:48 O2 Sat by Pulse Oximetry 100 01/30/19 11:48 Temperature 97.5 F L 01/30/19 11:48 Pulse Rate 67 01/30/19 16:22 Respiratory Rate 16 01/30/19 16:22 Blood Pressure 140/84 01/30/19 16:22 O2 Sat by Pulse Oximetry 100 01/30/19 16:22 Oxygen Delivery Oxygen Delivery Room Air Abdominal Pain - MDM Narrative Medical decision making narrative: Patient at this time does have evidence of anasarca, significant swelling noted on examination, she does have bilateral pleural effusions as well. The patient at this point I am does have an elevated potassium as well, no evidence of ar rhythmias here in the emergency room. The patient did have case discussed with Dr. Marvin from nephrology. At this time the patient will be further brought into the hospital for observation regarding her fluid overload status. The patient will be planned to be dialyzed within the next 24 hours. The patient at this point time is stable in the emergency room. Case was also discussed with the hospitalist who has agreed to accept the patient for further admission. In discussion with the nephrology team, they stated that they did not want hyperkalemia further addressed. They are comfortable at the current level. Patient does not seem really have any changes in the monitor. EKG was performed that showed sinus rhythm 67 beats a minute, patient has not no ST elevation or depression. T-wave flattening is seen laterally. SC and QT intervals are within normal limits. No evidence of peaked T waves. Final impression 1. End-stage renal disease 2. Bilateral pleural effusions 3. Bilateral lower abdominal pain 4. Hyperkalemia - Lab Data Result diagrams: 01/30/19 13:46 01/30/19 13:46 Lab Results 01/30/19 01/30/19 01/30/19 Range/Units 13:46 13:46 13:46 WBC 10.5 (4.3-11.1) K/mcL RBC 2.28 L (3.82-4.97) M/mcL Hgb 7.9 L (11.5-15.4) g/dL Hct 24.5 L (35.3-44.9) % MCV 107.5 H D (83.0-100.0) fL MCH 34.6 H (28.0-33.3) pg MCHC 32.2 (31.6-35.5) g/dL RDW 16.9 H (11.5-14.5) % Plt Count 70 L (140-400) K/mcL MPV 11.9 (9.4-12.4) fL Immature Gran % 0.8 (0-4) % Seg Neutrophils % 68.6 % Lymphocytes % 13.5 % Monocytes % 14.4 % Eosinophils % 2.4 % Basophils % 0.3 % Neutrophils # 7.2 (1.6-8.9) K/mcL Lymphocytes # 1.4 (0.6-4.6) K/mcL Monocytes # 1.5 H (0.0-1.3) K/mcL Eosinophils # 0.3 (0.0-0.6) K/mcL Basophils # 0.0 (0.0-0.2) K/mcL Nucleated RBCs/100 WBC 0.3 H (0) /100 WBC Immature Plt Fraction 8.9 H (1.1-6.1) % PT 33.2 H (9.4-12.1) Seconds INR 2.9 Sodium 130 L (136-145) mEq/L Potassium 5.6 H (3.5-5.1) mEq/L Chloride 91 L (98-107) mEq/L Carbon Dioxide 26 (23-29) mEq/L BUN 39 H (6-20) mg/dL Creatinine 5.16 H (0.60-1.20) mg/dL Est GFR ( Amer) 11 L (> 60) Est GFR (Non-Af Amer) 9 L (> 60) BUN/Creatinine Ratio 8 (6-26) Glucose 52 L (70-105) mg/dL Calculated Osmolality 277 L (280-300) Calcium 8.0 L (8.6-10.3) mg/dL Total Bilirubin 0.7 (0.3-1.0) mg/dL Direct Bilirubin 0.2 (0.0-0.2) mg/dL Indirect Bilirubin 0.5 (0.0-1.2) mg/dL AST 12 L (13-39) Units/L ALT 27 (7-52) Units/L Alkaline Phosphatase 147 H (34-104) Units/L Serum Total Protein 6.2 L (6.4-8.9) g/dL Albumin 2.7 L (3.5-5.7) g/dL Globulin 3.5 (2.4-3.5) g/dL Albumin/Globulin Ratio 0.8 L (1.1-2.2) Lipase 11 (11-82) Units/L
[2019-01-30 14:03] LABS: Basophils % 0.3 %; Red Blood Count 2.28 M/mcL (3.82-4.97)
[2019-01-30 14:05] LABS: Eosinophils # 0.3 K/mcL (0.0-0.6); Eosinophils % 2.4 %; Hematocrit 24.5 % (35.3-44.9); Hemoglobin 7.9 g/dL (11.5-15.4); Immature Granulocytes % 0.8 % (0-4); Immature Platelets 8.9 % (1.1-6.1); Lymphocytes # 1.4 K/mcL (0.6-4.6); Lymphocytes % 13.5 %; Mean Corpuscular HGB Conc 32.2 g/dL (31.6-35.5); Mean Corpuscular Hemoglobin 34.6 pg (28.0-33.3); Mean Corpuscular Volume 107.5 fL (83.0-100.0); Mean Platelet Volume 11.9 fL (9.4-12.4); Monocytes # 1.5 K/mcL (0.0-1.3); Monocytes % 14.4 %; Neutrophils # 7.2 K/mcL (1.6-8.9); Nucleated Red Blood Cells 0.3 /100 WBC (0); Red Cell Distribution Width 16.9 % (11.5-14.5); Segmented Neutrophils % 68.6 %; White Blood Count 10.5 K/mcL (4.3-11.1)
[2019-01-30 14:12] LABS: Platelet Count 70 K/mcL (140-400)
[2019-01-30 14:18] LABS: Albumin 2.7 g/dL (3.5-5.7); Albumin/Globulin Ratio 0.8 (1.1-2.2); Bilirubin,Direct 0.2 mg/dL (0.0-0.2); Bilirubin,Indirect 0.5 mg/dL (0.0-1.2); Bilirubin,Total 0.7 mg/dL (0.3-1.0); Globulin 3.5 g/dL (2.4-3.5); Potassium 5.6 mEq/L (3.5-5.1); Total Protein 6.2 g/dL (6.4-8.9)
--- NOTE | 2019-01-30 15:32 | Internal Med History&Physical ---
Date of Encounter: 01/30/19 Time of Encounter: 15:32 Internal Medicine - H&P: HPI History of present illness: Ms. Alexis is a 44 year old female with history of ESRD on dialysis T,Th,S, afib on Eliquis presented to ED for generalized weakness, and abdominal pain. She is also complaining of nausea without vomiting. Onset was two days ago, described as sharp in lower abdominal quadrants. Denies shortness of breath or chest pain, fevers/chills, cough, diarrhea. CT abdomen/pelvis in ED showed bilateral pleural effusions, ascites, circumferential subcutaneous edema of abdomen/pelvis suggestive of anasarca, lower abdominal wall skin thickening, moderate constipation. Lipase 11, LFts showed ALP 147, AST and ALT unremarkable. Past Med Surg Social Fam HX - Past Medical History Medical history: asthma, atrial fibrillation, diabetes, dialysis, GI bleed, hyperlipidemia, hypertension, renal disease, thyroid disease Additional medical history: ANEMIA, BLEEDING ULCER,. KIDNEY DIALYSIS Psychiatric history: no psych history - Past Surgical History Surgical History: appendectomy, cholecystectomy, thyroidectomy, transplant, other Additional surgical history: KIDNEY TRANSPLANT 2007, TUBAL LIGATION, left antecu bital AV fistula, multiple surgical and endovascular interventions for the left antecubital AV fistula, and placement of a left upper arm AV shunt - Social History Smoking Status: Never smoker Smokeless Tobacco Status: No Alcohol use: none Drug use: none - Family History Father Adopted: No Family Member Ethnicity: Non- Living Status: Hx Family Cardiac Disorders: Yes Hx Family Respiratory Disorders: Yes Hx Family Cancer: Yes Hx Family GI Disorders: No Hx Family Endocrine Disorder: Yes Hx Family Neuromuscular Disorders: No Hx Family Neurologic Disorders: No Hx Family HEENT Disorders: No Hx Family Autoimmune Disorders: No Mother Adopted: No Living Status: Hx Family Cardiac Disorders: Yes Hx Family Respiratory Disorders: No Hx Family Cancer: Yes Hx Family GI Disorders: No Hx Family Endocrine Disorder: No Hx Family Neuromuscular Disorders: No Hx Family Neurologic Disorders: No Hx Family HEENT Disorders: No Hx Family Autoimmune Disorders: No Internal Medicine - H&P: Meds Cholecalciferol (Vitamin D3) [Vitamin D3] 50,000 units PO QWEEK 12/28/18 [History] Lidocaine/Prilocaine [Emla] 1 appl TP AD 12/28/18 [History] Albuterol Sulfate [Proventil Inhaler] 2 puff IH Q4H PRN 30 Days #2 inhaler 01/01/19 [Rx] Apixaban [Eliquis] 5 mg PO BID 30 Days #60 tablet 01/01/19 [Rx] Atorvastatin [Lipitor] 40 mg PO HS 30 Days #30 tablet 01/01/19 [Rx] Budesonide/Formoterol 160/4.5 [Symbicort 160/4.5] 2 puff IH BIDR 30 Days #2 inh 01/01/19 [Rx] Folic Acid 1 mg PO DAILY 30 Days #30 tablet 01/01/19 [Rx] Levothyroxine Sodium [Euthyrox] 100 mcg PO DAILY 30 Days #30 tablet 01/01/19 [Rx] Metoclopramide [Reglan] 5 mg PO 0800,1700 30 Days #60 tablet 01/01/19 [Rx] Metoprolol Succinate [Toprol Xl] 25 mg PO DAILY 30 Days #30 tab.er.24h 01/01/19 [Rx] Omeprazole [PriLOSEC] 20 mg PO DAILY 30 Days #30 capsule.dr 01/01/19 [Rx] Simethicone [Gas-X] 80 mg PO TID PRN 30 Days #90 tab.chew 01/01/19 [Rx] Dextrose [Glucose Tablets] 4 gm PO Q6H PRN #30 tab.chew 01/25/19 [Rx] Allergy/AdvReac Type Severity Reaction Status Date / Time Warfarin [From Coumadin] Allergy Anaphylaxis Verified 01/21/19 20:32 heparin AdvReac Severe Unresponsiv Verified 01/21/19 20:32 e All Systems PM: A 10-system review of systems was performed and is negative for pertinent fin dings except as documented above in the HPI. - Constitutional Vitals: Temp Pulse Resp BP Pulse Ox 97.5 F L 72 16 147/101 100 01/30/19 11:48 01/30/19 11:48 01/30/19 11:48 01/30/19 11:48 01/30/19 11:48 General appearance: Present: A&O X 3, no acute distress Exam: . - Head Head exam: Present: atraumatic, normocephalic - Eye Eye exam: Present: PERRL, conjuntiva pink, sclera anicteric Pupils: Present: PERRL - Neck Neck exam general surgery: Present: supple, trachea midline. Absent: lymphadenopathy - Respiratory Respiratory exam: Present: decreased breath sounds. Absent: accessory muscle use, rales, rhonchi, wheezes - Cardiovascular Cardiovascular exam: Present: RRR, +S1, +S2. Absent: diastolic murmur, gallop, rubs, systolic murmur - GI/Abdominal GI/Abdominal exam: Present: normal bowel sounds, soft, no peritoneal signs. Absent: distended, guarding, pulsatile mass, rebound, rigid, tenderness Additional comments: pitting present. - Extremities Exam Extremities exam: Present: pedal edema, warm, radial pulses palpable and symmetrical. Absent: calf tenderness, cyanotic - Neurological Exam Neurological exam: Present: CN II-XII intact, oriented X3, no focal deficits. Absent: pronater drift, facial droop, speech deficit - Skin Skin exam: Present: dry, intact Internal Med - H&P Results - Labs CBC & Chem 7: 01/30/19 13:46 01/30/19 13:46 Labs: Short CBC 01/30/19 Range/Units 13:46 WBC 10.5 (4.3-11.1) K/mcL Hgb 7.9 L (11.5-15.4) g/dL Hct 24.5 L (35.3-44.9) % Plt Count 70 L (140-400) K/mcL Neutrophils # 7.2 (1.6-8.9) K/mcL BMP 01/30/19 13:46 Sodium 130 L Potassium 5.6 H Chloride 91 L Carbon Dioxide 26 BUN 39 H Creatinine 5.16 H Glucose 52 L Calcium 8.0 L Liver Function 01/30/19 Range/Units 13:46 Total Bilirubin 0.7 (0.3-1.0) mg/dL Direct Bilirubin 0.2 (0.0-0.2) mg/dL AST 12 L (13-39) Units/L ALT 27 (7-52) Units/L Alkaline Phosphatase 147 H (34-104) Units/L Albumin 2.7 L (3.5-5.7) g/dL - Impressions ITS Impressions Abdomen/Pelvis CT 01/30/19 12:22 IMPRESSION: 1. No acute finding in the abdomen or pelvis to account for patient's abdominal pain. 2. Bilateral pleural effusions, ascites, and circumferential subcutaneous edema of the abdomen and pelvis suggestive of anasarca. 3. Skin thickening along the lower anterior abdominal wall. Please correlate with clinical symptoms of cellulitis. 4. Atrophic [place] kidneys with transplant kidney in the right hemipelvis. Renal cortex of the transplanted kidney is thinned. 5. Intrauterine device in the lower uterine segment, extending into the cervix. Given malposition, it may not be functional. D/ / 01/30/2019 13:19:15 Wesley Urban MD / lgray Interpreting Provider: Wesley Urban MD - Assessment and Plan (1) Abdominal pain Current Visit: Yes Status: Acute Assessment and plan: Likely due to anasarca and/or constipation. CT abdomen/pelvis showed findings of anasarca and constipation, with skin thickening of abdominal wall. Patient is afebrile, normal white count, lipase within normal limits. - Consult Nephrology, dialysis per recommendations - Fluid restriction diet - Stimulant laxitives as needed for constipation. Qualifiers: Abdominal location: lower abdomen, unspecified Qualified Code(s): R10.30 - Lower abdominal pain, unspecified (2) Weakness Current Visit: No Status: Acute Assessment and plan: Patient labs at baseline, she states overall feeling generalized weakness, no focal deficits. - PT/OT evaluation. (3) History of GI bleed Current Visit: Yes Status: Acute Assessment and plan: Baseline hemoglobin, vital signs stable, no signs of acute bleed. (4) Anemia in chronic kidney disease (CKD) Current Visit: No Status: Acute Assessment and plan: no acute issues. Qualifiers: Chronic kidney disease stage: unspecified stage Qualified Code(s): N18.9 - Chronic kidney disease, unspecified; D63.1 - Anemia in chronic kidney disease (5) COPD (chronic obstructive pulmonary disease) Current Visit: No Status: Acute Assessment and plan: No acute exacerbation Qualifiers: COPD type: unspecified COPD Qualified Code(s): J44.9 - Chronic obstructive pulmonary disease, unspecified (6) Gastritis Current Visit: No Status: Acute Qualifiers: Gastritis type: other gastritis Chronicity: unspecified Gastritis bleeding: presence of bleeding unspecified Qualified Code(s): K29.60 - Other gastritis without bleeding (7) Hyperkalemia Current Visit: No Status: Acute (8) Pleural effusion Current Visit: No Status: Acute (9) Protein calorie malnutrition Current Visit: No Status: Acute Qualifiers: Qualified Code(s): E46 - Unspecified protein-calorie malnutrition (10) Afib Current Visit: No Status: Chronic Assessment and plan: Continue Eliquis, metoprolo once med rec verified Qualifiers: Atrial fibrillation type: paroxysmal Qualified Code(s): I48.0 - Paroxysmal atrial fibrillation (11) ESRD (end stage renal disease) on dialysis Current Visit: No Status: Chronic Assessment and plan: Nephrology consulted, recommendations appreciated. (12) History of kidney transplant Current Visit: No Status: Chronic (13) Hypertension Current Visit: No Status: Chronic Assessment and plan: resume home medications. Qualifiers: Hypertension type: unspecified Qualified Code(s): I10 - Essential (primary) hypertension (14) Hypothyroidism Current Visit: No Status: Chronic Qualifiers: Hypothyroidism type: unspecified Qualified Code(s): E03.9 - Hypothyroidism, unspecified (15) DVT prophylaxis Current Visit: No Status: Acute - Time Spent With Patient Total time spent is greater than 50% in coordination of care (as documented) at patient's floor/unit and/or counseling patient:
[2019-01-30 15:53] LABS: INR 2.9; Prothrombin Time 33.2 Seconds (9.4-12.1)
[2019-01-30] MEDS ORDERED: Naloxone 0.4 MG/ML INJ IVP PRN (16:27)
[2019-01-30] MEDS ORDERED: Sennosides/Docusate Sodium TABLET PO PRN (16:37)
[2019-01-30] MEDS ORDERED: Sennosides/Docusate Sodium TABLET PO ONE (16:37)
[2019-01-30] MEDS ORDERED: Ipratropium/Albuterol Neb 3 ML IH PRN (16:53)
[2019-01-30] MEDS ORDERED: Nitroglycerin 0.4 MG TAB.SUBL SL PRN (16:53)
[2019-01-30] MEDS ORDERED: Dextrose Gel 15 GM/37.5 ML TUBE PO PRN ×2 (17:11)
[2019-01-30] MEDS ORDERED: Dextrose Gel 15 GM/37.5 ML TUBE PO ONE (17:36)
[2019-01-30] MEDS: *HR* Dextrose 50 % in Water (Syg) 50 ML SYRINGE IVP PRN ×2 (17:38→18:20)
[2019-01-30 19:30] LABS: Calcium 7.8 mg/dL (8.6-10.3); Potassium 5.7 mEq/L (3.5-5.1)
[2019-01-30] MEDS: Insulin LISPRO 300 UNITS/3 ML VIAL SQ SCH (19:43)
[2019-01-30] MEDS ORDERED: Insulin LISPRO 300 UNITS/3 ML VIAL SQ SCH (21:00)
[2019-01-30 22:52] LABS: Albumin 2.8 g/dL (3.5-5.7); Albumin/Globulin Ratio 0.9 (1.1-2.2); Bilirubin,Total 0.7 mg/dL (0.3-1.0); Calcium 7.7 mg/dL (8.6-10.3); Globulin 3.2 g/dL (2.4-3.5); Potassium 5.3 mEq/L (3.5-5.1)
[2019-01-31 05:55] LABS: Nucleated Red Blood Cells 0.2 /100 WBC (0)
[2019-01-31 05:57] LABS: Basophils % 0.4 %; Eosinophils # 0.3 K/mcL (0.0-0.6); Eosinophils % 3.5 %; Hematocrit 21.1 % (35.3-44.9); Immature Granulocytes % 0.7 % (0-4); Immature Platelets 7.8 % (1.1-6.1); Lymphocytes % 12.5 %; Mean Corpuscular HGB Conc 33.2 g/dL (31.6-35.5); Mean Corpuscular Hemoglobin 34.7 pg (28.0-33.3); Mean Corpuscular Volume 104.5 fL (83.0-100.0); Mean Platelet Volume 11.9 fL (9.4-12.4); Monocytes # 1.4 K/mcL (0.0-1.3); Monocytes % 17.6 %; Red Blood Count 2.02 M/mcL (3.82-4.97); Red Cell Distribution Width 16.8 % (11.5-14.5); Segmented Neutrophils % 65.3 %; White Blood Count 8.2 K/mcL (4.3-11.1)
[2019-01-31 06:19] LABS: Neutrophils # 5.4 K/mcL (1.6-8.9); Platelet Count 58 K/mcL (140-400)
[2019-01-31 06:34] LABS: Calcium 7.5 mg/dL (8.6-10.3); Potassium 5.7 mEq/L (3.5-5.1)
--- NOTE | 2019-01-31 06:56 | Event Note ---
Date of Encounter: 01/30/19 Time of Encounter: 21:37 Alerted by patient's nurse CYNID Houston to come and see patient immediately. Nurse reported patient was having strokelike symptoms and very confused. Discussed this with Dr. Addison and Dr. Orozco who came to see pt. as well. Pt. is ESRD on dialysis and reported she was supposed to be dialyzed on Monday but missed her dialysis. Patient was not dialyzed today as well. Pt. was admitted today for abdominal pain and was given morphine 4 mg in the ED. Pts. AMS likely d/t poor renal clearance of the morphine d/t ESRD according to Dr. Addison who ordered a stat MRI of the head/brain to r/o CVA. MRI ordered and showed no acute abnormality. Once pt. returned to her room, Narcan was administered and pts. AMS began to improve. Paged Dr. Marvin regarding pts. dialysis need w/plan to dialyze this a.m. Nephrology consult ordered and confirmed. Nurse instructed to continue monitoring the pt. very closely and alert me immediately of any adverse changes.
[2019-01-31] MEDS ORDERED: 0.9 % Sodium Chloride 250 ML IVC PRN (07:47)
[2019-01-31] MEDS ORDERED: 0.9 % Sodium Chloride 1,000 ML PRIME SCH (08:00)
[2019-01-31] MEDS: D5% in Water 1,000 ML IVC PRN ×2 (08:21→23:02)
[2019-01-31] MEDS: Insulin LISPRO 300 UNITS/3 ML VIAL SQ SCH (08:22)
--- NOTE | 2019-01-31 09:30 | Nephrology Consult Note ---
Date of Encounter: 01/31/19 Time of Encounter: 09:28 Assessment and Plan (1) ESRD (end stage renal disease) on dialysis Current Visit: Yes Status: Acute TTS at [facility]. HD in progress for today. Unsure when last HD session was, patient was discharged on 01/25/19 and has not been in the outpatient [facility] dialysis center since. (2) Abdominal pain Current Visit: Yes Status: Acute Per primary. Qualifiers: Abdominal location: lower abdomen, unspecified Qualified Code(s): R10.30 - Lower abdominal pain, unspecified (3) Anasarca associated with disorder of kidney Current Visit: Yes Status: Acute Will offer additional UF or HD as needed. Patient often declines. History of Present Illness - Reason for Consult Consult date: 01/31/19 end stage renal disease Requesting physician: Lisa Chen - Chief Complaint abdominal pain - History of Present Illness 44 year old female ESRD on TTS dialysis, hyperlipidemia, hypothyroidism, atrial fibrillation, asthma, type 2 DM, GERD, HTN, CAD presents the emergency department with abdominal pain that stated Monday. Described the pain as "sharp" in the lower left and right abdomen. Nothing helped at home. Denies fever, chills, nausea, vomiting, or diarrhea. Denies any abdominal pain with examination. Patient discharged from this facility on 01/25/19 for hypoglycemia and hyperkalemia. She lives at home with spouse. Denies etoh, tobacco, or illicit drug use. Denies any FH of CKD or HD. Past Med Surg Social Fam HX - Past Medical History Medical history: asthma, atrial fibrillation, diabetes, dialysis, GI bleed, hyperlipidemia, hypertension, renal disease, thyroid disease Additional medical history: ANEMIA, BLEEDING ULCER,. KIDNEY DIALYSIS Psychiatric history: no psych history - Past Surgical History Surgical History: appendectomy, cholecystectomy, thyroidectomy, transplant, other Additional surgical history: KIDNEY TRANSPLANT 2007, TUBAL LIGATION, left antec ubital AV fistula, multiple surgical and endovascular interventions for the left antecubital AV fistula, and placement of a left upper arm AV shunt - Social History Smoking Status: Never smoker Smokeless Tobacco Status: No Alcohol use: none Drug use: none - Family History Father Adopted: No Family Member Ethnicity: Non- Living Status: Hx Family Cardiac Disorders: Yes Hx Family Respiratory Disorders: Yes Hx Family Cancer: Yes Hx Family GI Disorders: No Hx Family Endocrine Disorder: Yes Hx Family Neuromuscular Disorders: No Hx Family Neurologic Disorders: No Hx Family HEENT Disorders: No Hx Family Autoimmune Disorders: No Mother Adopted: No Living Status: Hx Family Cardiac Disorders: Yes Hx Family Respiratory Disorders: No Hx Family Cancer: Yes Hx Family GI Disorders: No Hx Family Endocrine Disorder: No Hx Family Neuromuscular Disorders: No Hx Family Neurologic Disorders: No Hx Family HEENT Disorders: No Hx Family Autoimmune Disorders: No Medications and Allergies Cholecalciferol (Vitamin D3) [Vitamin D3] 50,000 units PO QWEEK 12/28/18 [History] Lidocaine/Prilocaine [Emla] 1 appl TP AD 12/28/18 [History] Dextrose [Glucose Tablets] 4 gm PO Q6H PRN #30 tab.chew 01/25/19 [Rx] Allergy/AdvReac Type Severity Reaction Status Date / Time Warfarin [From Coumadin] Allergy Anaphylaxis Verified 01/21/19 20:32 heparin AdvReac Severe Unresponsiv Verified 01/21/19 20:32 e Review of Systems All Systems review (narrative): The remainder of the systems are negative. Constitutional: no chills, no fatigue, no fever(s) Cardiovascular: no chest pain, no dyspnea Respiratory: no cough Gastrointestinal: abdominal pain, no change in bowel habits, no diarrhea, no nausea, no vomiting Exam - Vital Signs Vital signs: Initial Vital Signs Temp Pulse Resp BP Pulse Ox 97.5 F L 72 16 147/101 100 01/30/19 11:48 01/30/19 11:48 01/30/19 11:48 01/30/19 11:48 01/30/19 11:48 Vital Signs - Last 8 Hours Temp Pulse Resp BP Pulse Ox 01/31/19 08:25 97 01/31/19 07:06 98.3 F 71 16 123/50 97 01/31/19 02:56 98.5 F 73 16 112/73 99 Intake and Output 01/30/19 01/31/19 01/31/19 23:59 07:59 15:59 Intake Total 90 / 90 0 / 30 30 / 30 Output Total 0 / 0 0 / 0 Balance 90 / 90 0 / 30 30 / 30 Intake: Oral 90 / 90 0 / 30 30 / 30 Output: Urine 0 / 0 0 / 0 Other: Meal Jello Weight 82.9 kg Blood Glucose* 88 86 69 - General Appearance General appearance: well-developed, well-nourished EENT: ATNC, hearing intact, vision intact Neck: supple Respiratory: clear Cardiology: no edema, edema (Generalized edema noted to bilat lower extremities and abdomen. ), normal S1, normal S2 - Dialysis Access Dialysis Vascular Access: Arteriovenous Fistula thrill: Yes bruit: Yes Gastrointestinal: normoactive bowel sounds, no tenderness, no guarding Integumentary: no rash, warm and dry Neurologic: alert and oriented x3 Musculoskeletal: no deformities, no erythema Psychiatric: mood/affect appropriate, cooperative Results - Lab Results 01/31/19 05:42 01/31/19 05:42 Most recent lab results 01/30/19 01/30/19 01/31/19 22:19 22:19 05:42 Calcium 7.7 L 7.5 L Phosphorus 5.2 H Magnesium 2.0 Consult Discharge Plan - Plan Referrals: Peter Vicente DO [Primary Care Provider] -
[2019-01-31] MEDS: *HR* Dextrose 50 % in Water (Syg) 50 ML SYRINGE IVP PRN ×2 (10:49→16:46)
[2019-01-31] MEDS ORDERED: Insulin LISPRO 300 UNITS/3 ML VIAL SQ SCH (11:30)
[2019-01-31] MEDS ORDERED: 0.9 % Sodium Chloride 250 ML ONE (14:29)
[2019-01-31] MEDS ORDERED: Simethicone 80 MG TAB.CHEW PO PRN (16:12)
--- NOTE | 2019-01-31 16:23 | Internal Med Progress Note ---
Hospitalist Progress Note - Encounter Date of Encounter: 01/31/19 Time of Encounter: 15:00 - Subjective Interval History: seen at bedside. no acute complaints today. no overnight evetns. Got the dialysis today. Mentioend that her abdominal pain is btter. Deneis chest pain, SOB. - Exam Vitals: Temp Pulse Resp BP Pulse Ox 98.4 F 73 18 94/58 96 01/31/19 15:13 01/31/19 15:13 01/31/19 15:13 01/31/19 15:13 01/31/19 15:13 Exam: General: Alert and oriented, no physical distress, able to follow commands. HEENT: No thyromegaly, no lymphadenopathy, no discharge. Eyes: No discharge. Respiratory: Normal vesicular breathing, no added sounds, breathing equal in b oth sides. CVS: Normal heart sounds, no murmurs, no edema. Extremities: No peripheral edema, peripheral pulses intact. Lymph nodes: No lymphadenopathy Gastrointestinal: Abdomen mildly tender Genitourinary: No paravertebral tenderness. Neurological: Alert and oriented. No focal deficits. Cranial nerves II-XII intact. . - Assessment and Plan (1) Abdominal pain Current Visit: Yes Status: Acute Assessment and Plan: -Improving. -Likely due to anasarca and/or constipation. -CT abdomen/pelvis showed findings of anasarca and constipation, with skin thickening of abdominal wall. -Fluid restriction diet -Stimulant laxitives as needed for constipation. (2) Anemia in chronic kidney disease (CKD) Current Visit: No Status: Acute Assessment and Plan: -No acute issues. -Will transfuse 1 unit with the dialyisi today as the hgn is 7 (3) DVT prophylaxis Current Visit: No Status: Acute Assessment and Plan: On AC (4) Afib Current Visit: No Status: Chronic Assessment and Plan: -Continue Eliquis, -Cont metoprolol (5) Weakness Current Visit: No Status: Acute Assessment and Plan: -PT/OT evaluation. (6) ESRD (end stage renal disease) on dialysis Current Visit: No Status: Chronic (7) Hypothyroidism Current Visit: No Status: Chronic Assessment and Plan: -HAs been missing outpt dialysis -Got the dialysis today (8) Hypertension Current Visit: No Status: Chronic Assessment and Plan: -resume home medications. (9) History of kidney transplant Current Visit: No Status: Chronic (10) Protein calorie malnutrition Current Visit: No Status: Acute (11) Hyperkalemia Current Visit: Yes Status: Acute Assessment and Plan: -K of 5.7 today -Got the dialysis today -Will get tge BMP tomorrow (12) History of GI bleed Current Visit: Yes Status: Acute Assessment and Plan: Baseline hemoglobin, vital signs stable, no signs of acute bleed. -Will transfuse with 1 unit (13) Hypoglycemia Current Visit: Yes Status: Acute Assessment and Plan: -Pt got hypoglycemic in the hosptial with the levels of 46 adn 43 today -Unsure about the pt home diabetic medications -Pt was started on insulin in the hopsital bt did not get any -Most recently has been havign the levs of 130s -Likely due ot home meds , which are unclear. -Will d/c all forms of the insulin -D5 as needed for the hypoglycemia -Continue to monitor for the signs of hypoglycemia -Keep on monitoring BGM - - Time Spent with Patient Total time spent is greater than 50% in coordination of care (as documented) at patient's floor/unit and/or counseling patient: Internal Medicine: Result - Labs CBC & Chem 7: 01/31/19 05:42 01/31/19 05:42 Labs: Short CBC 01/31/19 Range/Units 05:42 WBC 8.2 (4.3-11.1) K/mcL Hgb 7.0 L (11.5-15.4) g/dL Hct 21.1 L (35.3-44.9) % Plt Count 58 L (140-400) K/mcL Neutrophils # 5.4 (1.6-8.9) K/mcL BMP 01/30/19 01/30/19 01/31/19 18:58 22:19 05:42 Sodium 128 L 127 L 130 L Potassium 5.7 H 5.3 H 5.7 H Chloride 92 L 93 L 88 L Carbon Dioxide 22 L 21 L 22 L BUN 40 H 41 H 41 H Creatinine 5.23 H 5.29 H 5.35 H Glucose 103 111 H 94 Calcium 7.8 L 7.7 L 7.5 L Liver Function 01/30/19 Range/Units 22:19 Total Bilirubin 0.7 (0.3-1.0) mg/dL AST 12 L (13-39) Units/L ALT 24 (7-52) Units/L Alkaline Phosphatase 135 H (34-104) Units/L Albumin 2.8 L (3.5-5.7) g/dL - ABG Interpretation ABG results: PT/INR, D-dimer PT 33.2 Seconds (9.4-12.1) H 01/30/19 13:46 - Impressions Impressions Brain MRI 01/30/19 21:47 IMPRESSION: Unremarkable brain MR. D/ / Pasquale Rivera MD / Pasquale Rivera MD Interpreting Provider: Pasquale Rivera MD Consult Discharge Plan - Plan Referrals: Peter Vicente DO [Primary Care Provider] - (1) Abdominal pain Qualifiers: Abdominal location: lower abdomen, unspecified Qualified Code(s): R10.30 - Lower abdominal pain, unspecified (2) Anemia in chronic kidney disease (CKD) Qualifiers: Chronic kidney disease stage: unspecified stage Qualified Code(s): N18.9 - Chronic kidney disease, unspecified; D63.1 - Anemia in chronic kidney disease (4) Afib Qualifiers: Atrial fibrillation type: paroxysmal Qualified Code(s): I48.0 - Paroxysmal atrial fibrillation (7) Hypothyroidism Qualifiers: Hypothyroidism type: unspecified Qualified Code(s): E03.9 - Hypothyroidism, unspecified (8) Hypertension Qualifiers: Hypertension type: unspecified Qualified Code(s): I10 - Essential (primary) hypertension (10) Protein calorie malnutrition Qualifiers: Qualified Code(s): E46 - Unspecified protein-calorie malnutrition
[2019-01-31] MEDS: Apixaban 5 MG TABLET PO SCH (19:43)
[2019-01-31] MEDS: Acetaminophen 325 MG TABLET PO PRN (20:05)
[2019-02-01] MEDS: Acetaminophen 325 MG TABLET PO PRN ×3 (06:04→21:21)
[2019-02-01 07:34] LABS: Basophils % 0.3 %; Red Cell Distribution Width 19.4 % (11.5-14.5)
[2019-02-01 07:36] LABS: Eosinophils # 0.2 K/mcL (0.0-0.6); Eosinophils % 2.7 %; Hematocrit 25.4 % (35.3-44.9); Hemoglobin 8.4 g/dL (11.5-15.4); Immature Platelets 8.6 % (1.1-6.1); Lymphocytes # 0.7 K/mcL (0.6-4.6); Lymphocytes % 10.3 %; Mean Corpuscular HGB Conc 33.1 g/dL (31.6-35.5); Mean Corpuscular Hemoglobin 34.1 pg (28.0-33.3); Mean Corpuscular Volume 103.3 fL (83.0-100.0); Mean Platelet Volume 11.7 fL (9.4-12.4); Monocytes # 1.1 K/mcL (0.0-1.3); Monocytes % 16.2 %; Red Blood Count 2.46 M/mcL (3.82-4.97); Segmented Neutrophils % 69.5 %; White Blood Count 6.7 K/mcL (4.3-11.1)
[2019-02-01 07:44] LABS: Neutrophils # 4.7 K/mcL (1.6-8.9); Platelet Count 59 K/mcL (140-400)
[2019-02-01 08:02] LABS: Albumin 2.5 g/dL (3.5-5.7); Albumin/Globulin Ratio 0.8 (1.1-2.2); Bilirubin,Total 0.9 mg/dL (0.3-1.0); Calcium 7.6 mg/dL (8.6-10.3); Globulin 3.1 g/dL (2.4-3.5); Potassium 4.2 mEq/L (3.5-5.1); Total Protein 5.6 g/dL (6.4-8.9)
--- NOTE | 2019-02-01 09:21 | Nephrology Progress Note ---
Date of Encounter: 02/01/19 Time of Encounter: 09:00 - Assessment and Plan (1) ESRD (end stage renal disease) on dialysis Current Visit: Yes Status: Chronic End-stage renal disease on thrice weekly hemodialysis: I reviewed the patient's labs, vital signs, progress notes, imaging and medication lists, which required complex evaluation and management and medical decision making to compose the patient's dialysis orders. For patients with end-stage renal disease, as always, I recommend following strict I's and O's, daily weights, renal diet, avoidance of nephrotoxic agents, renal dosing. (2) Anasarca associated with disorder of kidney Current Visit: Yes Status: Acute Ongoing anasarca related to ESRD, poor compliance with attending dialysis and dietary indescretion/nonadherence to a fluid restriction, which I recommend to remain in place during this hospitalization. She also has hypervolemic hyponatremia, and she also had been started on D5W for hypoglycemia, but this could also worsen her volume status and hyponatremia. I recommend more dialysis today for fluid removal, electrolyte mgt and further clearance. (3) Abdominal pain Current Visit: Yes Status: Acute As per primary Qualifiers: Abdominal location: lower abdomen, unspecified Qualified Code(s): R10.30 - Lower abdominal pain, unspecified (4) Hypoglycemia Current Visit: Yes Status: Acute As per primary but will have to stop the D5W IVF, which has continuously been infusing d/t the above issues/concerns re: hypervolemic hyponatremia and anasarca. Consider alternative options for treatment of hypoglycemia that would limit obligate fluid input. (5) Hyponatremia Current Visit: No Status: Acute Acute on Chronic: see above (6) Hyperkalemia Current Visit: Yes Status: Resolved Resolved Subjective Principal diagnosis: ESRD, Missed dialysis Interval history: The patient complained of abdominal pain, which has been long-standing, she affirmed. She said it had worsened at the beginning of this hospitalization, and she could not identify any known palliative or provocative factors. She did not affirm chest pain. She also complained of foot pain, and said this has been ongoing for weeks. She did not report any problems with dialysis yesterday. I reviewed the handoff communication for my colleague Dr. Marvin. Objective - Vital Signs Vital signs: Vital Signs Temp Pulse Resp BP Pulse Ox 07/19/19 06:53 98.0 F 75 18 123/83 100 02/01/19 03:19 98 F 77 16 173/83 100 01/31/19 23:22 98.2 F 81 16 139/82 96 01/31/19 18:55 98.7 F 82 16 135/48 100 01/31/19 18:04 98.4 F 76 20 95/66 01/31/19 16:37 69 100/67 93 01/31/19 15:13 98.4 F 73 18 94/58 96 01/31/19 14:58 98.2 F 75 18 90/65 99 01/31/19 14:00 97.8 F 18 125/66 01/31/19 13:00 138/73 01/31/19 12:45 139/78 01/31/19 12:30 152/76 01/31/19 12:15 139/98 01/31/19 12:00 127/100 01/31/19 11:45 118/85 01/31/19 11:30 132/88 01/31/19 11:15 123/85 01/31/19 11:00 135/83 01/31/19 10:45 125/76 01/31/19 10:30 115/86 01/31/19 10:15 123/79 01/31/19 10:00 130/67 01/31/19 09:45 121/54 01/31/19 09:30 98.2 F 18 132/57 Intake and Output 01/31/19 02/01/19 02/01/19 23:59 07:59 15:59 Intake Total 1300 / 2340 Balance 1300 / -260 Intake: IV Fluids 1000 / 1000 Dextrose 5% 1,000 ML @ 100 mls/ 1000 / 1000 hr IVC .Q10H PRN Rx#:[id number] Oral 300 / 390 Blood Product 0 / 350 Rbcs Leuko Poor As-1 Unit 0 / 350 [id number] Other: Blood Glucose* 109 81 - General Appearance General appearance: Present: well-developed, obese, chronically ill, fatigue, frail Exam: Appears older than listed age EENT: Present: ATNC, PERRL, mucous membranes moist Neck: Present: no JVD, supple Respiratory: Present: clear Cardiology: Present: edema, regular rate, regular rhythm, normal S1, normal S2 Dialysis Vascular Access: Arteriovenous Graft (left upper extremity) thrill: Yes bruit: Yes Gastrointestinal: Present: normoactive bowel sounds, no guarding, obese Integumentary: Present: cool/clammy, erythema, ecchymotic, skin tear, chronic venous stasis Neurologic: Present: no focal deficit, no asterixis Musculoskeletal: Present: no cyanosis, no clubbing Psychiatric: Present: cooperative - Lab 02/01/19 06:31 02/01/19 06:31 Most recent lab results 02/01/19 06:31 Calcium 7.6 L Consult Discharge Plan - Plan Referrals: Peter Vicente DO [Primary Care Provider] -
[2019-02-01] MEDS ORDERED: 0.9 % Sodium Chloride 250 ML IVC PRN (09:25)
[2019-02-01] MEDS: Apixaban 5 MG TABLET PO SCH ×2 (09:28→21:21)
[2019-02-01] MEDS: Folic Acid 1 MG TABLET PO SCH (09:28)
[2019-02-01] MEDS: Cholecalciferol (D-3) 1,000 UNIT (25MCG) TABLET PO SCH (09:28)
--- NOTE | 2019-02-01 12:17 | Internal Med Progress Note ---
Hospitalist Progress Note - Encounter Date of Encounter: 02/01/19 Time of Encounter: 10:17 - Subjective Interval History: Significant examined this morning at bedside. No acute overnight events. Continues abdominal pain. Afebrile overnight. Hemodynamically stable. Feels weak and has decreased appetite. Denies any chest pain or difficulty breathing. - Exam Vitals: Temp Pulse Resp BP Pulse Ox 97.9 F 75 18 142/46 100 02/01/19 10:45 02/01/19 06:53 02/01/19 10:45 02/01/19 11:15 02/01/19 06:53 Exam: General: In no acute distress. appears tired, obese Respiratory exam: CTAB. decreased air entry at base Cardiovascular exam: RRR, +S1, +S2. no murmur, gallop, rubs. GI/Abdominal exam: Has large abdominal pannus with induration and 2 areas of erythema associated with tenderness and skin breakdown bilaterally. no peritoneal signs. Extremities exam: 1+ pedal edema, pulses palpable in b/l lower extremities. no calf tenderness Neurological exam: CN II-XII intact, AO X3, no focal deficits. Skin exam: head wound on Rt foot. - Assessment and Plan (1) Anemia in chronic kidney disease (CKD) Current Visit: No Status: Acute (2) DVT prophylaxis Current Visit: No Status: Acute (3) Afib Current Visit: No Status: Chronic (4) Weakness Current Visit: No Status: Acute (5) ESRD (end stage renal disease) on dialysis Current Visit: No Status: Chronic (6) Hypothyroidism Current Visit: No Status: Chronic (7) Hypertension Current Visit: No Status: Chronic (8) History of kidney transplant Current Visit: No Status: Chronic (9) Protein calorie malnutrition Current Visit: No Status: Acute (10) Hyperkalemia Current Visit: Yes Status: Resolved (11) History of GI bleed Current Visit: Yes Status: Acute (12) Abdominal pain Current Visit: Yes Status: Acute (13) Hypoglycemia Current Visit: Yes Status: Acute - Summary of Assessment and Plan Summary of Assessment and Plan: Assessment Acute Abdominal pain Anemia with ESRD hyponatremia hyperkalemia-resolved hypoglcemia Chronic h/o renal transplant HTN ESRD DM afib Plan - abdominal pain could be from cellulitis of abdominal pannus. Has tenderness, induration and skin breakdown. Hold abx given no fever and hemodynamicall stable and h/o adverse reaction to abx including cdiff. Will obtain procalcitonin. will consult ID for further guidance - anasarca from fluid overload due to poor compliance from dialysis. Nephrology following for dialysis needs. Strict I/I, dialy weights and renal diet. - D5 held given hypervolemic hypernatremia. Will use D50 push if needed for hyperglycemia. q2 hr accuchecks given hypoglycemia which could be related to long half life of insulin with ESRD along with poor appetite - s/p 1 PRBC yesterday. Hold further transfusions as no active bleeding and patient likely physiologically acclimated to low Hb. She is on apixaban for afib - afib rate controlled with toprol xl and on eliquis. - PT recommended ECF but patient refused and wants to go home. - c/w home levothyroxin - needs home medication reconciled sweetie diabetes medication Internal Medicine: Result - Labs CBC & Chem 7: 02/01/19 06:31 02/01/19 06:31 Labs: Short CBC 02/01/19 Range/Units 06:31 WBC 6.7 (4.3-11.1) K/mcL Hgb 8.4 L (11.5-15.4) g/dL Hct 25.4 L (35.3-44.9) % Plt Count 59 L (140-400) K/mcL Neutrophils # 4.7 (1.6-8.9) K/mcL BMP 02/01/19 06:31 Sodium 129 L Potassium 4.2 Chloride 91 L Carbon Dioxide 27 BUN 21 H Creatinine 3.44 H Glucose 86 Calcium 7.6 L Liver Function 02/01/19 Range/Units 06:31 Total Bilirubin 0.9 (0.3-1.0) mg/dL AST 12 L (13-39) Units/L ALT 16 (7-52) Units/L Alkaline Phosphatase 121 H (34-104) Units/L Albumin 2.5 L (3.5-5.7) g/dL - ABG Interpretation ABG results: PT/INR, D-dimer PT 33.2 Seconds (9.4-12.1) H 01/30/19 13:46 Consult Discharge Plan - Plan Referrals: Peter Vicente DO [Primary Care Provider] - (1) Anemia in chronic kidney disease (CKD) Qualifiers: Chronic kidney disease stage: unspecified stage Qualified Code(s): N18.9 - Chronic kidney disease, unspecified; D63.1 - Anemia in chronic kidney disease (3) Afib Qualifiers: Atrial fibrillation type: paroxysmal Qualified Code(s): I48.0 - Paroxysmal atrial fibrillation (6) Hypothyroidism Qualifiers: Hypothyroidism type: unspecified Qualified Code(s): E03.9 - Hypothyroidism, unspecified (7) Hypertension Qualifiers: Hypertension type: unspecified Qualified Code(s): I10 - Essential (primary) hypertension (9) Protein calorie malnutrition Qualifiers: Qualified Code(s): E46 - Unspecified protein-calorie malnutrition (12) Abdominal pain Qualifiers: Abdominal location: lower abdomen, unspecified Qualified Code(s): R10.30 - Lower abdominal pain, unspecified
--- NOTE | 2019-02-01 14:13 | Infectious Disease Consult ---
Infectious Disease-Consult - Encounter Date/Time Date of Encounter: 02/01/19 Time of Encounter: 16:00 - Data of Consult Requesting Physician: Gracy Rosario MD Primary Care Provider: Peter Vicente DO - HPI HPI: Ms. alexis is a 44 y.o female is admitted to the ED because of generalized weakne ss, nausea and abdominal pain. Infectious disease was consulted to evaluate the discoloration of the skin on her anterior abdominal area. Ms. Alexis is a 44-year-old female history of Afib, AOCD, COPD, hypothyroidism, hypertension, protein calorie malnutrition, ESRD on dialysis (T,,Mon) who presented to the ED on 01/30 for generalized weakness, nausea and lower abdominal pain. Patients pain began 2 days ago with no fever or chills, cough or congestion. She describes abdominal pain as sharp across the lower aspect of abdomen, denies any other constipation or diarrhea complaints. Workup in the ED showed that patient was afebrile at 97.5, pulse :72, RR: 16. BP : 147/101, satting at 100% on room air. Labs showed no leukocytosis, anemia with Hb 7.9 (that is her baseline), thrombocytopenia at 70, hyponatremia at 127, hyperkalemia : 5.3, BUN/Cr: 41/5.29. Lipase at 11, LFTs: WNL, alkaline phosphatase at 135 with normal liver transaminases. CT abdominal pelvis showed findings of anasarca and constipation. There was also skin thickening along the lower anterior abdominal wall with correlation with cellulitis. She was given 4 mg of morphine in the ED and was admitted to the hospital for further management of her abdominal pain. - ROS Review of Systems: A 10-system review of systems was performed and is negative for pertinent findings except as documented above in the HPI. - Results CBC & Chem 7: 02/01/19 06:31 02/01/19 06:31 - Exam Vitals: Temp Pulse Resp BP Pulse Ox 97.9 F 75 18 137/67 100 02/01/19 10:45 02/01/19 06:53 02/01/19 10:45 02/01/19 13:30 02/01/19 06:53 Exam: Gen.: Vitals noted. No acute distress. Alert, awake and oriented * 3 [address], [address], and time, well developed, well-nourished resting comfortably in bed. Pleasant. Cardiac: aifb rate controlled, no murmur, +S1/S2, No BLE edema, PMI non- displaced Pulmonary: CTA bilaterally, no wheezes, rales or rhonchi, equal chest expansion, unlabored breathing Abdomen: Abdominal pannus with skin discoloration , no evidence of erythema, bleeding or serosangunous discharge, no peritoneal signs, evidence f skin breakdown Skin: warm and dry, no visible lesions. Feels warm, clammy, no rashes, no lesions, no erythema, presence of calciphylaxis. MSK: ROM not assessed. no joint swelling noted, gait not assessed while in bed. Non tender calf or clubbing, no cyanosis/clubbing/ or edema Neuro: A&O, moves all extremities, no focal deficits, sensation intact Psych: Appropriate mood and behavior, normal speech. Cholecalciferol (Vitamin D3) [Vitamin D3] 50,000 units PO QWEEK 12/28/18 [History] Lidocaine/Prilocaine [Emla] 1 appl TP AD 12/28/18 [History] Dextrose [Glucose Tablets] 4 gm PO Q6H PRN #30 tab.chew 01/25/19 [Rx] Albuterol Sulfate [Proventil Inhaler] 2 puff PO Q4H PRN 01/31/19 [History] Apixaban [Eliquis] 5 mg PO BID 01/31/19 [History] Atorvastatin [Lipitor] 40 mg PO HS 01/31/19 [History] Folic Acid 1 mg PO DAILY 01/31/19 [History] Levothyroxine Sodium 100 mcg PO QAM 01/31/19 [History] Metoclopramide [Reglan] 5 mg PO 0800,1700 01/31/19 [History] Metoprolol Succinate [Toprol Xl] 25 mg PO DAILY 01/31/19 [History] Omeprazole [PriLOSEC] 20 mg PO DAILY 01/31/19 [History] Simethicone [Gas-X] 80 mg PO TID PRN 01/31/19 [History] Allergy/AdvReac Type Severity Reaction Status Date / Time Warfarin [From Coumadin] Allergy Anaphylaxis Verified 01/31/19 09:49 heparin AdvReac Severe Unresponsiv Verified 01/31/19 09:49 e - Assessment and Plan (1) Discoloration of skin Current Visit: Yes Status: Acute -appear chronic and due to calciphylaxis. No obvious cellulitis or fluctuance suggesting abscess Patient also has intertrigo candidiasis No antibiotics recommendation at this time. Continue to observe off antibiotics We will treat the intertrigo candidiasis with nystatin powder applied 3 times a day and proper skin hygiene. SNOMED Code(s): 8563647 (2) ESRD (end stage renal disease) Current Visit: Yes Status: Acute -Patient has a history of ESRD gets dialyzed 3 times a week. -Presented with the BUN of 41 and Cr: 5.29 -Patient is s/p dialysis today. SNOMED Code(s): 81883278 (3) Anasarca associated with disorder of kidney Current Visit: Yes Status: Acute -Patient's CT abdomen showed circumferential subcutaneous edema of the abdomen and pelvis suggestive of anasarca -Likely due to fluid overload due to poor compliance with dialysis. -Nephrology following her dialysis needs. Renally dose meds SNOMED Code(s): 57202333052605 (4) Afib Current Visit: No Status: Chronic -Patient has a history of atrial fibrillation Continue Toprol and Eliquis Qualifiers: Atrial fibrillation type: paroxysmal Qualified Code(s): I48.0 - Paroxysmal atrial fibrillation SNOMED Code(s): 87625726 (5) Hypothyroidism Current Visit: No Status: Chronic - Patient has a history of hypothyroidism - Continue home meds Qualifiers: Hypothyroidism type: unspecified Qualified Code(s): E03.9 - Hypothyroidism, unspecified SNOMED Code(s): 03535954 Past Med Surg Social Fam HX - Past Medical History Medical history: asthma, atrial fibrillation, diabetes, dialysis, GI bleed, hyperlipidemia, hypertension, renal disease, thyroid disease Additional medical history: ANEMIA, BLEEDING ULCER,. KIDNEY DIALYSIS Psychiatric history: no psych history - Past Surgical History Surgical History: appendectomy, cholecystectomy, thyroidectomy, transplant, other Additional surgical history: KIDNEY TRANSPLANT 2007, TUBAL LIGATION, left antecubital AV fistula, multiple surgical and endovascular interventions for the left antecubital AV fistula, and placement of a left upper arm AV shunt - Social History Smoking Status: Never smoker Smokeless Tobacco Status: No Alcohol use: none Drug use: none - Family History Father Adopted: No Family Member Ethnicity: Non- Living Status: Hx Family Cardiac Disorders: Yes Hx Family Respiratory Disorders: Yes Hx Family Cancer: Yes Hx Family GI Disorders: No Hx Family Endocrine Disorder: Yes Hx Family Neuromuscular Disorders: No Hx Family Neurologic Disorders: No Hx Family HEENT Disorders: No Hx Family Autoimmune Disorders: No Mother Adopted: No Living Status: Hx Family Cardiac Disorders: Yes Hx Family Respiratory Disorders: No Hx Family Cancer: Yes Hx Family GI Disorders: No Hx Family Endocrine Disorder: No Hx Family Neuromuscular Disorders: No Hx Family Neurologic Disorders: No Hx Family HEENT Disorders: No Hx Family Autoimmune Disorders: No Consult Discharge Plan - Plan Referrals: Peter Vicente DO [Primary Care Provider] - - Attending Attestation I examined this patient and my medical decision-making was reviewed with the Resident Physician. I agree with the documented findings, disposition and treatment plan as described except to the extent set forth below. Patient seen and examined in the presence of the resident. I have known the patient for a long time. Not sure what's causing her abdominal pain. But I think her skin looks good and there is no cellulitis. she does have lots of scarring from here calciphylaxis A/P: intertrigo candidiasis
[2019-02-01] MEDS: Metoprolol XL (24 HR) Succ 25 MG TAB.ER.24H PO SCH (15:39)
[2019-02-01] MEDS: *HR* Dextrose 50 % in Water (Syg) 50 ML SYRINGE IVP PRN (15:39)
--- NOTE | 2019-02-01 23:56 | Electrocardiograph Report ---
[place] UpDown Test Date: 2019-01-30 Pat Name: [facility] Department: [id number] Room: 2A72 Gender: F Clinical Editor: : 1975 Requested By: [id number] Order Number: [id number] Reading MD: Edin Alarcon Measurements Intervals [place] Rate: 67 P: -23 HI: 234 QRS: 70 QRSD: 113 T: 108 QT: 462 QTc: 488 Interpretive Statements Sinus rhythm Prolonged HI interval Anterior infarct, old Nonspecific T abnormalities, lateral leads Electronically Signed On 02-01-2019 23:55:00 EDT by Edin Alarcon
[2019-02-02] MEDS: Acetaminophen 325 MG TABLET PO PRN ×2 (04:22→16:58)
[2019-02-02 07:19] LABS: Basophils % 0.3 %; Red Cell Distribution Width 19.3 % (11.5-14.5)
[2019-02-02 07:20] LABS: Eosinophils # 0.1 K/mcL (0.0-0.6); Eosinophils % 2.2 %; Hematocrit 24.2 % (35.3-44.9); Hemoglobin 7.9 g/dL (11.5-15.4); Immature Granulocytes % 1.1 % (0-4); Immature Platelets 5.7 % (1.1-6.1); Lymphocytes # 0.6 K/mcL (0.6-4.6); Lymphocytes % 9.1 %; Mean Corpuscular HGB Conc 32.6 g/dL (31.6-35.5); Mean Corpuscular Hemoglobin 34.1 pg (28.0-33.3); Mean Corpuscular Volume 104.3 fL (83.0-100.0); Mean Platelet Volume 11.6 fL (9.4-12.4); Monocytes % 16.2 %; Red Blood Count 2.32 M/mcL (3.82-4.97); Segmented Neutrophils % 71.1 %; White Blood Count 6.4 K/mcL (4.3-11.1)
[2019-02-02 07:25] LABS: Neutrophils # 4.6 K/mcL (1.6-8.9); Platelet Count 58 K/mcL (140-400)
[2019-02-02 07:38] LABS: Calcium 7.5 mg/dL (8.6-10.3); Potassium 3.8 mEq/L (3.5-5.1)
[2019-02-02] MEDS ORDERED: 0.9 % Sodium Chloride 250 ML IVC PRN (07:55)
--- NOTE | 2019-02-02 09:17 | Internal Med Progress Note ---
Hospitalist Progress Note - Encounter Date of Encounter: 02/02/19 Time of Encounter: 09:16 - Subjective Interval History: Patient seen and examined this morning visit. No acute overnight events. Still complaining of on and off pain in her belly. Nurse reported that she might be drug seeking. Afebrile. - Exam Vitals: Temp Pulse Resp BP Pulse Ox 98.7 F 81 16 127/57 100 02/02/19 07:55 02/02/19 07:55 02/02/19 07:55 02/02/19 07:55 02/02/19 07:55 Exam: General: In no acute distress. appears tired, obese Respiratory exam: CTAB. decreased air entry at base Cardiovascular exam: RRR, +S1, +S2. no murmur, gallop, rubs. GI/Abdominal exam: Has large abdominal pannus with induration and 2 areas of skin excoriation associated with tenderness. no peritoneal signs. Extremities exam: 1+ pedal edema, pulses palpable in b/l lower extremities. no calf tenderness Neurological exam: CN II-XII intact, AO X3, no focal deficits. Skin exam: head wound on Rt foot. - Assessment and Plan (1) Afib Current Visit: No Status: Chronic (2) Hypothyroidism Current Visit: No Status: Chronic (3) Anasarca associated with disorder of kidney Current Visit: Yes Status: Acute (4) Discoloration of skin Current Visit: Yes Status: Acute (5) History of bacteremia Current Visit: Yes Status: Acute (6) ESRD (end stage renal disease) Current Visit: Yes Status: Acute - Summary of Assessment and Plan Summary of Assessment and Plan: Assessment Acute Abdominal pain Anemia with ESRD hyponatremia hyperkalemia-resolved hypoglcemia Chronic h/o renal transplant HTN ESRD DM afib Plan - abdominal pain due to skin excoriation of abdominal pannus fold. Hold abx given no fever and hemodynamicaly stable, h/o adverse reaction to abx including cdiff and per ID recommendations. - anasarca from fluid overload due to poor compliance from dialysis. Nephrology following for dialysis needs. Strict I/O, dialy weights and renal diet. To get another HD today. No further extra HD sessions planned per nephro. - Patient had hypoglycemia which were felt to be from insulin. However had previous workup indicating possible insulinoma. Will discuss with radiology re garding any finding on CT she already had and consider further imaging. - s/p 1 PRBC. Hold further transfusions as no active bleeding and patient likely physiologically acclimated to low Hb. She is on apixaban for afib - afib rate controlled with toprol xl and on eliquis. - PT recommended ECF but patient refused and wants to go home. - c/w home levothyroxin Internal Medicine: Result - Labs CBC & Chem 7: 02/02/19 06:47 02/02/19 06:47 Labs: Short CBC 02/02/19 Range/Units 06:47 WBC 6.4 (4.3-11.1) K/mcL Hgb 7.9 L (11.5-15.4) g/dL Hct 24.2 L (35.3-44.9) % Plt Count 58 L (140-400) K/mcL Neutrophils # 4.6 (1.6-8.9) K/mcL BMP 02/02/19 06:47 Sodium 133 L Potassium 3.8 Chloride 96 L Carbon Dioxide 27 BUN 13 Creatinine 2.57 H Glucose 74 Calcium 7.5 L - ABG Interpretation ABG results: PT/INR, D-dimer PT 33.2 Seconds (9.4-12.1) H 01/30/19 13:46 Consult Discharge Plan - Plan Referrals: Peter Vicente DO [Primary Care Provider] - (1) Afib Qualifiers: Atrial fibrillation type: paroxysmal Qualified Code(s): I48.0 - Paroxysmal atrial fibrillation (2) Hypothyroidism Qualifiers: Hypothyroidism type: unspecified Qualified Code(s): E03.9 - Hypothyroidism, unspecified
--- NOTE | 2019-02-02 10:53 | Nephrology Progress Note ---
Date of Encounter: 02/02/19 Time of Encounter: 09:30 - Assessment and Plan (1) ESRD (end stage renal disease) on dialysis Current Visit: Yes Status: Chronic End-stage renal disease on thrice weekly hemodialysis: I reviewed the patient's labs, vital signs, progress notes, imaging and medication lists, which required complex evaluation and management and medical decision making to compose the patient's dialysis orders. I also placed standing dialysis orders x3, so her next tentative dialysis will be planned for Monday if she remains hospitalized. For patients with end-stage renal disease, as always, I recommend following strict I's and O's, daily weights, renal diet, avoidance of nephrotoxic agents, renal dosing. (2) Anasarca associated with disorder of kidney Current Visit: Yes Status: Acute Further HD today for fluid removal. (3) Abdominal pain Current Visit: Yes Status: Acute As per primary. She was noted to have hypoglycemia and perhaps an insulinoma. Appreciate the Primary Hospitalist. Qualifiers: Abdominal location: lower abdomen, unspecified Qualified Code(s): R10.30 - Lower abdominal pain, unspecified (4) Hypoglycemia Current Visit: Yes Status: Acute As per primary. She was noted to have hypoglycemia and perhaps an insulinoma. Appreciate the Primary Hospitalist. (5) Hyponatremia Current Visit: No Status: Acute Improving with dialysis/fluid removal. (6) Hyperkalemia Current Visit: Yes Status: Resolved Subjective Principal diagnosis: ESRD, Missed dialysis Interval history: The patient was seen and examined earlier today, and she reported similar abdominal pain as before. She did not affirm active nausea, vomiting, or diarrhea. She voiced agreement to proceed with dialysis today. Objective - Vital Signs Vital signs: Vital Signs Temp Pulse Resp BP Pulse Ox 02/02/19 07:55 98.7 F 81 16 127/57 100 02/02/19 03:32 98.4 F 78 16 113/56 99 02/01/19 23:00 98.6 F 85 16 106/42 98 02/01/19 21:29 98 02/01/19 18:45 98.5 F 83 16 110/48 98 02/01/19 15:37 98.2 F 81 16 124/47 96 02/01/19 14:45 98.9 F 18 167/85 02/01/19 14:15 156/75 02/01/19 14:00 145/67 02/01/19 13:45 151/63 02/01/19 13:30 137/67 02/01/19 13:15 129/52 02/01/19 13:00 116/40 02/01/19 12:45 121/42 02/01/19 12:30 116/43 02/01/19 12:15 125/54 02/01/19 12:00 116/43 02/01/19 11:45 122/42 02/01/19 11:30 142/46 02/01/19 11:15 142/46 02/01/19 11:00 138/70 Intake and Output 02/01/19 02/02/19 02/02/19 23:59 07:59 15:59 Intake Total 180 / 180 Output Total 0 / 0 Balance 180 / 180 Intake: Oral 180 / 180 Output: Urine 0 / 0 Other: Weight 80 kg 80.9 kg Blood Glucose* 326 65 106 Patient Weight 02/02/19 23:59 Weight 80.9 kg - General Appearance Exam: General appearance: Present: well-developed, obese, chronically ill, fatigue, frail but she appears older than listed age EENT: Present: ATNC, PERRL, mucous membranes moist Neck: Present: no JVD, supple Respiratory: Present: clear Cardiology: Present: edema, regular rate, regular rhythm, normal S1, normal S2 Dialysis Vascular Access: Arteriovenous Graft (left upper extremity) thrill: Yes bruit: Yes Gastrointestinal: Present: normoactive bowel sounds, no guarding, obese Integumentary: Present: cool/clammy, erythema, ecchymotic, skin tear, chronic venous stasis Neurologic: Present: no focal deficit, no asterixis Musculoskeletal: Present: no cyanosis, no clubbing Psychiatric: Present: cooperative - Lab 02/02/19 06:47 02/02/19 06:47 Most recent lab results 02/02/19 06:47 Calcium 7.5 L Consult Discharge Plan - Plan Referrals: Peter Vicente DO [Primary Care Provider] -
[2019-02-02] MEDS: Apixaban 5 MG TABLET PO SCH ×2 (15:49→22:01)
[2019-02-02] MEDS ORDERED: Isovue-370 500 ML BOTTLE IVP ONE (16:21)
[2019-02-02] MEDS: Cholecalciferol (D-3) 1,000 UNIT (25MCG) TABLET PO SCH (16:58)
[2019-02-02] MEDS: Folic Acid 1 MG TABLET PO SCH (17:01)
[2019-02-02] MEDS: Metoprolol XL (24 HR) Succ 25 MG TAB.ER.24H PO SCH (17:01)
[2019-02-03] MEDS: Acetaminophen 325 MG TABLET PO PRN (00:28)
[2019-02-03] MEDS ORDERED: Ibuprofen 400 MG TABLET PO SCH (06:00)
[2019-02-03] MEDS: Apixaban 5 MG TABLET PO SCH (09:22)
[2019-02-03] MEDS: Metoprolol XL (24 HR) Succ 25 MG TAB.ER.24H PO SCH (09:22)
[2019-02-03] MEDS: Cholecalciferol (D-3) 1,000 UNIT (25MCG) TABLET PO SCH (09:22)
[2019-02-03] MEDS: Folic Acid 1 MG TABLET PO SCH (09:22)
--- NOTE | 2019-02-03 09:46 | Discharge Summary ---
- NOTES TO OUTPATIENT PROVIDER Notes to Outpatient Provider: Follow-up with endocrinology for her frequent hypoglycemia. Orders not resulted at time of discharge: Pending orders 02/01/19 14:01 Procalcitonin Stat 02/04/19 04:00 BMP [Basic Metabolic Panel] AM 0400 Complete Blood Count [HEME] AM 0400 Date of Encounter: 02/03/19 Time of Encounter: 10:00 - Discharge Diagnosis (1) Afib Priority: Secondary Status: Chronic Qualifiers: Atrial fibrillation type: paroxysmal Qualified Code(s): I48.0 - Paroxysmal atrial fibrillation (2) Hypothyroidism Priority: Secondary Status: Chronic Qualifiers: Hypothyroidism type: unspecified Qualified Code(s): E03.9 - Hypothyroidism, unspecified (3) Anasarca associated with disorder of kidney Priority: Primary Status: Acute (4) Discoloration of skin Priority: Secondary Status: Acute (5) History of bacteremia Priority: Secondary Status: Resolved (6) ESRD (end stage renal disease) Priority: Secondary Status: Chronic Hospital course: Ms. Alexis is a 44 year old female with history of SRD on TTS dialysis, hyperlipidemia, hypothyroidism, atrial fibrillation, asthma, type 2 DM, GERD, HTN, CADon Eliquis presented to the hospital for generalized weakness and abdominal pain. Patient has history of noncompliant with her dialysis. She was found to be in generalized anasarca and fluid overload on her CT scan of the abdomen. Nephrology service was consulted and patient had 3 sessions of dialysis while inpatient. Her symptoms improved significantly throughout her hospitalization. Regarding her abdominal pain, suspicion was for skin infection given her skin thickening concerning for cellulitis on CT abdomen. Infectious disease was consulted and patient was not deemed a candidate for antibiotics. 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 Patient was treated with nystatin powder and her symptoms improved at discharge. She remained hemodynamically stable, afebrile and had no leukocytosis. She had episode of hypoglycemia which has been worked up during the last admission and her labs were coagulated with possible insulinoma. CT scan of the abdomen with contrast did not reveal any pancreatic mass. She was recommended to follow with endocrinology from the last visit which she is willing to after discharge. She is recommended to document her blood sugars and bring those to her family doctor and keep dexterous pills in her pocket all the time. She was evaluated by PT/OT and she was deemed a candidate for fdc placement however patient refuses and preferred to go home on home health PT/OT. Today, patient is hemodynamically stable. She will be discharged home in stable condition. Discharge discussed with: patient - Time Spent with Patient Total time spent providing and/or coordinating discharge services:40 minutes - Discharge Medications Prescriptions: Continued Cholecalciferol (Vitamin D3) [Vitamin D3] 50,000 units PO QWEEK Lidocaine/Prilocaine [Emla] 1 appl TP AD Dextrose [Glucose Tablets] 4 gm PO Q6H PRN #30 tab.chew PRN Reason: blood sugar less than 70 Omeprazole [PriLOSEC] 20 mg PO DAILY Metoclopramide [Reglan] 5 mg PO 0800,1700 Folic Acid 1 mg PO DAILY Atorvastatin [Lipitor] 40 mg PO HS Levothyroxine Sodium 100 mcg PO QAM Apixaban [Eliquis] 5 mg PO BID Simethicone [Gas-X] 80 mg PO TID PRN PRN Reason: GAS Albuterol Sulfate [Proventil Inhaler] 2 puff PO Q4H PRN PRN Reason: Shortness Of Breath Metoprolol Succinate [Toprol Xl] 25 mg PO DAILY Home Medications: Cholecalciferol (Vitamin D3) [Vitamin D3] 50,000 units PO QWEEK 12/28/18 [History] Lidocaine/Prilocaine [Emla] 1 appl TP AD 12/28/18 [History] Dextrose [Glucose Tablets] 4 gm PO Q6H PRN #30 tab.chew 01/25/19 [Rx] Albuterol Sulfate [Proventil Inhaler] 2 puff PO Q4H PRN 01/31/19 [History] Apixaban [Eliquis] 5 mg PO BID 01/31/19 [History] Atorvastatin [Lipitor] 40 mg PO HS 01/31/19 [History] Folic Acid 1 mg PO DAILY 01/31/19 [History] Levothyroxine Sodium 100 mcg PO QAM 01/31/19 [History] Metoclopramide [Reglan] 5 mg PO 0800,1700 01/31/19 [History] Metoprolol Succinate [Toprol Xl] 25 mg PO DAILY 01/31/19 [History] Omeprazole [PriLOSEC] 20 mg PO DAILY 01/31/19 [History] Simethicone [Gas-X] 80 mg PO TID PRN 01/31/19 [History] Allergies/Adverse Reactions: Allergy/AdvReac Type Severity Reaction Status Date / Time Warfarin [From Coumadin] Allergy Anaphylaxis Verified 01/31/19 09:49 heparin AdvReac Severe Unresponsiv Verified 01/31/19 09:49 e Date of admission: 01/30/19 18:27 Primary care physician: Peter Vicente DO Consults: 01/30/19 16:30 Consult to Occupational Therapy [CONS] Routine Comment: Evaluate, develop and implement POC Reason for Consult: weakness Does patient have active BEDREST order?: No Is patient medically & hemodynamically stable?: Yes Consult to Physical Therapy [CONS] Routine Comment: Evaluate, develop and implement POC Reason for Consult: weakness Does patient have active BEDREST order?: No Is patient medically & hemodynamically stable?: Yes 01/30/19 21:50 Consult to Nephrology [CONS] Routine Consulting Provider: Kidney Loli/TAYLOR/THUY/EDEL Reason for Consult: Patient is ESRD and takes dialysis. Missed her Monday dialysis and was not dilayzed today. Now has weakness and AMS. Possible need for dialysis tonight and if not then first thing in a.m. Call Completed: Yes 01/31/19 08:00 Consult to Dialysis [CONS] ONCE 02/01/19 09:30 Consult to Dialysis [CONS] ONCE 02/01/19 14:17 Consult to Infectious Diseases [CONS] Routine Consulting Provider: Infectious Disease Loli Reason for Consult: recommendation for antibiotics Call Completed: Yes 02/02/19 08:00 Consult to Dialysis [CONS] QTUTHSA 02/05/19 08:00 Consult to Dialysis [CONS] QTUTHSA 02/07/19 08:00 Consult to Dialysis [CONS] QTUTHSA - Constitutional Vitals: Temp Pulse Resp BP Pulse Ox 98.3 F 73 15 118/50 98 02/03/19 07:29 02/03/19 07:29 02/03/19 07:29 02/03/19 07:29 02/03/19 07:29 General appearance: Present: A&O X 3, no acute distress Exam: General: Patient is alert, oriented 3. Head: Atraumatic, normal inspection, normocephalic. Eye: EOMI, PERRLA, no scleral icterus noted. ENT: Mucous membranes moist. No odontogenic infection noted. Neck: Normal inspection, no meningismus. Respiratory: No respiratory distress, rhonchi, or wheezes noted. Cardiovascular: Regular rate and regular rhythm, S1 and S2 audible. No murmurs, rubs, or gallops. No lower extremity pitting edema. GI: Soft, nondistended, normal bowel sounds. Abdominal scarring without induration or tenderness. Extremities:No joint swelling, pedal edema, or tenderness noted. Neurological: Alert, oriented 3, no focal deficits. Psychiatric: normal affect, normal mood. Skin: Dry, intact, warm. Normal color. No rashes. - Patient Status Disposition: Home Health Service Condition: Good Overall status at discharge: patient is back to baseline - Discharge Instructions Follow Up With: Peter Vicente DO [Primary Care Provider] - - Diet and Activity Activity: as per physical therapy Diet: other (Renal diet)
--- NOTE | 2019-02-03 09:58 | Physician Discharge Referral ---
Home Health/Hosp Referral Info Transfer to: Home Health Provider in Charge Post Discharge: PCP - Diagnosis (1) Afib Priority: Secondary Status: Chronic (2) Hypothyroidism Priority: Secondary Status: Chronic (3) Anasarca associated with disorder of kidney Priority: Primary Status: Acute (4) Discoloration of skin Priority: Secondary Status: Chronic (5) History of bacteremia Priority: Secondary Status: Resolved (6) ESRD (end stage renal disease) Status: Chronic - Respiratory Orders None Smoking Cessation: Smoking cessation has been advised. For more information, call the [place] Tobacco Quit Line at 5-226-ZWDX-NOW. - Diet/Nutrition Diet/Nutrition: List: Renal diet - Activity Activity Orders: Walker - Services Needed Following services are medically necessary services: Physical Therapy, Occupational Therapy - Transfer Medications Home Medications: Cholecalciferol (Vitamin D3) [Vitamin D3] 50,000 units PO QWEEK 12/28/18 [History] Lidocaine/Prilocaine [Emla] 1 appl TP AD 12/28/18 [History] Dextrose [Glucose Tablets] 4 gm PO Q6H PRN #30 tab.chew 01/25/19 [Rx] Albuterol Sulfate [Proventil Inhaler] 2 puff PO Q4H PRN 01/31/19 [History] Apixaban [Eliquis] 5 mg PO BID 01/31/19 [History] Atorvastatin [Lipitor] 40 mg PO HS 01/31/19 [History] Folic Acid 1 mg PO DAILY 01/31/19 [History] Levothyroxine Sodium 100 mcg PO QAM 01/31/19 [History] Metoclopramide [Reglan] 5 mg PO 0800,1700 01/31/19 [History] Metoprolol Succinate [Toprol Xl] 25 mg PO DAILY 01/31/19 [History] Omeprazole [PriLOSEC] 20 mg PO DAILY 01/31/19 [History] Simethicone [Gas-X] 80 mg PO TID PRN 01/31/19 [History] Allergies/Adverse Reactions: Allergy/AdvReac Type Severity Reaction Status Date / Time Warfarin [From Coumadin] Allergy Anaphylaxis Verified 01/31/19 09:49 heparin AdvReac Severe Unresponsiv Verified 01/31/19 09:49 e Certification: Further, I certify that my clinical findings support that this patient is homebound (i.e. absences from home require considerable and taxing effort and are for medical reasons or spiritism services or infrequently or short duration when for other reasons) because: Homebound Reason: Patient requires assistance of a person or device to safely leave home Attestation: My signature below is to certify that this patient is under my care and that I, or nurse practitioner, or a physician's painter assistant working with me, has a [id number] encounter with this patient.
[2019-02-03 11:54] VITALS: BP 106/64
== END 2019-02-03 13:55 | disposition home health service (06) | DRG 425 ==
LOC: 2ANU 11:38 → EMEROOARM 11:38 → 2ANU 17:00 → SUATTDRO 18:27
PROVIDERS: ADMIT Student in an Organized Health Care Education/Training Program; ATTEND Internal Medicine

== ENCOUNTER 2019-02-12 11:06 | Observation (INO) ==
--- NOTE | 2019-02-12 11:59 | Emergency Department Note ---
Disposition Clinical Impression: ESRD (end stage renal disease) on dialysis, Acute anemia Disposition: Admitted As Inpatient Condition: Fair Time of Disposition: 14:22 General Adult HPI - General Chief complaint: ED Recheck/Abnormal Lab/Rx Stated complaint: low hgb, high liver enzymes Time Seen by Provider: 02/12/19 11:26 Source: patient Limitations: no limitations - History of Present Illness HPI Narrative: Patient 44-year-old female that presents to the emergency department with chief complaint of abnormal labs. The patient reports that she was seen in the emergency department over the weekend and she has prior history of end-stage renal disease on dialysis Monday. The patient states she was recently admitted had 3 episodes of dialysis and was discharged home. The patient also reports having episodes of hypoglycemia. Patient reports today that she is return back to the emergency department if she was seen in the weekend and it was recommended the patient be transferred to [facility] due to the possibility of an insulinoma. Patient states that currently she feels extremely weak and feels as though she is anemic. Patient denies chest pain denies shortness of breath states that she did not go to dialysis today because she wanted to come to the emergency department. Pain Scale: 9 - Related Data Home Medications Medication Instructions Recorded Confirmed Cholecalciferol (Vitamin D3) 50,000 units PO QWEEK 12/28/18 02/13/19 [Vitamin D3] Albuterol Sulfate [Proventil 2 puff PO Q4H PRN 01/31/19 02/13/19 Inhaler] Apixaban [Eliquis] 5 mg PO BID 01/31/19 02/13/19 Atorvastatin [Lipitor] 40 mg PO HS 01/31/19 02/13/19 Folic Acid 1 mg PO DAILY 01/31/19 02/13/19 Levothyroxine Sodium 100 mcg PO QAM 01/31/19 02/13/19 Metoclopramide [Reglan] 5 mg PO 0800,1700 01/31/19 02/13/19 Metoprolol Succinate [Toprol Xl] 25 mg PO DAILY 01/31/19 02/13/19 Omeprazole [PriLOSEC] 20 mg PO DAILY 01/31/19 02/13/19 cloNIDine HCl [CloNIDine HCl] 0.1 mg PO BID 02/12/19 02/13/19 hydrALAZINE [HydrALAZINE] 50 mg PO BID 02/12/19 02/13/19 Allergies Allergy/AdvReac Type Severity Reaction Status Date / Time Warfarin [From Coumadin] Allergy Anaphylaxis Verified 01/31/19 09:49 heparin AdvReac Severe Unresponsiv Verified 01/31/19 09:49 e All systems ED: reviewed and negative except as stated. Past Medical History - Past Medical History Attestation: Yes The following information was validated with the patient. 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 Head: Normocephalic/atraumatic Eyes:PERRLA, EOMI, no conjunctivitis Nares: Without d/c. Ears: No erythema or d/c noted. Oralpharnyx: P&MMM noted, Neck: Supple, no JVD or MICROBIOLOGY COORDINATOR noted. Cardovascular: regular rate and rhythm without murmur, brisk capillary refill, no peripheral edema. Lungs: Clear to ascultation bilaterally, non-labored Abd: Soft nontender, Non Distended, no guarding, no rebound. : Defered Extremities: moves all extremities equally Neuro: AOx3, no obvious gross neuro deficit Psych: Normal Affect Derm: No rash noted - General Limitations: no limitations General appearance: alert Course Vital Signs Temperature 97.8 F 02/12/19 11:06 Pulse Rate 78 02/12/19 11:06 Respiratory Rate 18 02/12/19 11:06 Blood Pressure 148/101 02/12/19 11:06 O2 Sat by Pulse Oximetry 100 02/12/19 11:06 Temperature 98.6 F 02/13/19 19:47 Pulse Rate 74 02/13/19 19:47 Respiratory Rate 17 02/13/19 19:47 Blood Pressure 168/97 02/13/19 19:47 O2 Sat by Pulse Oximetry 97 02/13/19 19:47 Oxygen Delivery Oxygen Delivery Room Air Medical Decision Making - Lab Data Result diagrams: 02/13/19 02:29 02/13/19 02:29 Lab Results 02/12/19 02/12/19 02/12/19 Range/Units 12:15 12:15 12:15 WBC 9.2 (4.3-11.1) K/mcL RBC 1.89 L (3.82-4.97) M/mcL Hgb 6.3 L (11.5-15.4) g/dL Hct 19.7 L (35.3-44.9) % MCV 104.2 H (83.0-100.0) fL MCH 33.3 (28.0-33.3) pg MCHC 32.0 (31.6-35.5) g/dL RDW 20.2 H (11.5-14.5) % Plt Count 108 L (140-400) K/mcL MPV 12.0 (9.4-12.4) fL Immature Gran % 0.5 (0-4) % Seg Neutrophils % 75.3 % Lymphocytes % 9.7 % Monocytes % 12.3 % Eosinophils % 2.0 % Basophils % 0.2 % Neutrophils # 6.9 (1.6-8.9) K/mcL Lymphocytes # 0.9 (0.6-4.6) K/mcL Monocytes # 1.1 (0.0-1.3) K/mcL Eosinophils # 0.2 (0.0-0.6) K/mcL Basophils # 0.0 (0.0-0.2) K/mcL Sodium 125 L (136-145) mEq/L Potassium 4.4 (3.5-5.1) mEq/L Chloride 89 L (98-107) mEq/L Carbon Dioxide 23 (23-29) mEq/L BUN 40 H (6-20) mg/dL Creatinine 5.62 H (0.60-1.20) mg/dL Est GFR ( Amer) 10 L (> 60) Est GFR (Non-Af Amer) 8 L (> 60) BUN/Creatinine Ratio 7 (6-26) Glucose 155 H (70-105) mg/dL Calculated Osmolality 273 L (280-300) Lactic Acid 3.5 H (0.5-2.2) mmol/L Calcium 7.5 L (8.6-10.3) mg/dL Magnesium 1.7 (1.6-2.6) mg/dL Total Bilirubin 0.8 (0.3-1.0) mg/dL AST 11 L (13-39) Units/L ALT 7 (7-52) Units/L Alkaline Phosphatase 133 H (34-104) Units/L Ammonia (16-53) mcmol/L Troponin I < 0.03 (< 0.04) ng/mL Serum Total Protein 6.0 L (6.4-8.9) g/dL Albumin 2.5 L (3.5-5.7) g/dL Globulin 3.5 (2.4-3.5) g/dL Albumin/Globulin Ratio 0.7 L (1.1-2.2) Vitamin B12 (250-1100) pg/mL 02/12/19 02/12/19 Range/Units 12:15 12:15 WBC (4.3-11.1) K/mcL RBC (3.82-4.97) M/mcL Hgb (11.5-15.4) g/dL Hct (35.3-44.9) % MCV (83.0-100.0) fL MCH (28.0-33.3) pg MCHC (31.6-35.5) g/dL RDW (11.5-14.5) % Plt Count (140-400) K/mcL MPV (9.4-12.4) fL Immature Gran % (0-4) % Seg Neutrophils % % Lymphocytes % % Monocytes % % Eosinophils % % Basophils % % Neutrophils # (1.6-8.9) K/mcL Lymphocytes # (0.6-4.6) K/mcL Monocytes # (0.0-1.3) K/mcL Eosinophils # (0.0-0.6) K/mcL Basophils # (0.0-0.2) K/mcL Sodium (136-145) mEq/L Potassium (3.5-5.1) mEq/L Chloride (98-107) mEq/L Carbon Dioxide (23-29) mEq/L BUN (6-20) mg/dL Creatinine (0.60-1.20) mg/dL Est GFR ( Amer) (> 60) Est GFR (Non-Af Amer) (> 60) BUN/Creatinine Ratio (6-26) Glucose (70-105) mg/dL Calculated Osmolality (280-300) Lactic Acid (0.5-2.2) mmol/L Calcium (8.6-10.3) mg/dL Magnesium (1.6-2.6) mg/dL Total Bilirubin (0.3-1.0) mg/dL AST (13-39) Units/L ALT (7-52) Units/L Alkaline Phosphatase (34-104) Units/L Ammonia 23 (16-53) mcmol/L Troponin I (< 0.04) ng/mL Serum Total Protein (6.4-8.9) g/dL Albumin (3.5-5.7) g/dL Globulin (2.4-3.5) g/dL Albumin/Globulin Ratio (1.1-2.2) Vitamin B12 > 1500 H (250-1100) pg/mL
[2019-02-12 12:40] LABS: Basophils % 0.2 %; Eosinophils # 0.2 K/mcL (0.0-0.6); Hematocrit 19.7 % (35.3-44.9); Hemoglobin 6.3 g/dL (11.5-15.4); Immature Granulocytes % 0.5 % (0-4); Lymphocytes # 0.9 K/mcL (0.6-4.6); Lymphocytes % 9.7 %; Mean Corpuscular Hemoglobin 33.3 pg (28.0-33.3); Mean Corpuscular Volume 104.2 fL (83.0-100.0); Monocytes # 1.1 K/mcL (0.0-1.3); Monocytes % 12.3 %; Neutrophils # 6.9 K/mcL (1.6-8.9); Platelet Count 108 K/mcL (140-400); Red Blood Count 1.89 M/mcL (3.82-4.97); Red Cell Distribution Width 20.2 % (11.5-14.5); Segmented Neutrophils % 75.3 %; White Blood Count 9.2 K/mcL (4.3-11.1)
[2019-02-12 12:55] LABS: Alanine Aminotransferase 7 Units/L (7-52); Albumin 2.5 g/dL (3.5-5.7); Albumin/Globulin Ratio 0.7 (1.1-2.2); Alkaline Phosphatase 133 Units/L (34-104); Aspartate Amino Transferase 11 Units/L (13-39); BUN/Creatinine Ratio 7 (6-26); Bilirubin,Total 0.8 mg/dL (0.3-1.0); Blood Urea Nitrogen 40 mg/dL (6-20); Calcium 7.5 mg/dL (8.6-10.3); Carbon Dioxide 23 mEq/L (23-29); Chloride 89 mEq/L (98-107); Globulin 3.5 g/dL (2.4-3.5); Glucose 155 mg/dL (70-105); Magnesium 1.7 mg/dL (1.6-2.6); Osmolality,Calculated 273 (280-300); Potassium 4.4 mEq/L (3.5-5.1); Sodium 125 mEq/L (136-145); Troponin I < 0.03 ng/mL (< 0.04); eGFR For African Americans 10 (> 60); eGFR For Non-African Americans 8 (> 60)
[2019-02-12] MEDS ORDERED: *HR* Promethazine 25 MG/ML VIAL IVP PRN (14:32)
[2019-02-12] MEDS ORDERED: Ondansetron ODT 4 MG TAB.RAPDIS SL PRN (14:32)
[2019-02-12] MEDS ORDERED: Acetaminophen 325 MG TABLET PO PRN (14:32)
[2019-02-12] MEDS ORDERED: Naloxone 0.4 MG/ML INJ IVP PRN (14:32)
--- NOTE | 2019-02-12 15:22 | Internal Med History&Physical ---
Date of Encounter: 02/12/19 Time of Encounter: 15:04 Internal Medicine - H&P: HPI Chief complaint: Low Hemoglobin and Missed HD Admitted From: Home Plans for Post Hospital Care: Home History of present illness: Ms. Alexis is a 44 year old female with hx of morbid obesity, ESRD HD T/T/S with non-compliance, previous diagnosis of Type II Diabetes now with frequent hypoglycemic events presents with shortness of breath and concern for low hemoglobin. Patient has a history of noncompliance and frequent hospital admissions for missing dialysis. She was admitted last week for missing dialysis and was dialyzed 3 times in a row to reach euvolemia. Also had episodes of hypoglycemia with concern for insulinoma. Was recommended that she follow-up with an fpga design engineer in [place] but refused to do so. Was seen again in the emergency department 02/10 for fatigue after missing dialysis 02/09. Blood sugar of 33. Hg of 7.7 (her BL) at that time. Bili elevated. Recommended that she be admitted for these issues, however, patient refused this and was discharged home AMA. Presents today with shortness of breath and concern for low hemoglobin. Said she was going to go to her scheduled dialysis session was decided to go to the emergency department instead. Feels fatigued still. Taking her blood sugar at home and says that it has been between 110 and 200. No low blood sugars at home. Not on insulin or diabetic medications. Hg 6.3. Denies blood in stool or melena. No hematochezia. Hx of gastric ulcers and has not been taking PPI because she said it wasn't at her pharmacy. Past Med Surg Social Fam HX - Past Medical History Medical history: asthma, atrial fibrillation, cardiomyopathy, diabetes, dialysis, GI bleed, hyperlipidemia, hypertension, renal disease, thyroid disease Additional medical history: last dialysis was on monday and due for today Psychiatric history: no psych history - Past Surgical History Surgical History: appendectomy, cholecystectomy, thyroidectomy, transplant, other Additional surgical history: KIDNEY TRANSPLANT 2007, TUBAL LIGATION, left antecubital AV fistula, multiple surgical and endovascular interventions for the left antecubital AV fistula, and placement of a left upper arm AV shunt - Social History Smoking Status: Never smoker Smokeless Tobacco Status: No Alcohol use: none Drug use: none - Family History Father Adopted: No Family Member Ethnicity: Non- Living Status: Hx Family Cardiac Disorders: Yes Hx Family Respiratory Disorders: Yes Hx Family Cancer: Yes Hx Family GI Disorders: No Hx Family Endocrine Disorder: Yes Hx Family Neuromuscular Disorders: No Hx Family Neurologic Disorders: No Hx Family HEENT Disorders: No Hx Family Autoimmune Disorders: No Mother Adopted: No Living Status: Hx Family Cardiac Disorders: Yes Hx Family Respiratory Disorders: No Hx Family Cancer: Yes Hx Family GI Disorders: No Hx Family Endocrine Disorder: No Hx Family Neuromuscular Disorders: No Hx Family Neurologic Disorders: No Hx Family HEENT Disorders: No Hx Family Autoimmune Disorders: No Internal Medicine - H&P: Meds Cholecalciferol (Vitamin D3) [Vitamin D3] 50,000 units PO QWEEK 12/28/18 [ History] Albuterol Sulfate [Proventil Inhaler] 2 puff PO Q4H PRN 01/31/19 [History] Apixaban [Eliquis] 5 mg PO BID 01/31/19 [History] Atorvastatin [Lipitor] 40 mg PO HS 01/31/19 [History] Folic Acid 1 mg PO DAILY 01/31/19 [History] Levothyroxine Sodium 100 mcg PO QAM 01/31/19 [History] Metoclopramide [Reglan] 5 mg PO 0800,1700 01/31/19 [History] Metoprolol Succinate [Toprol Xl] 25 mg PO DAILY 01/31/19 [History] Omeprazole [PriLOSEC] 20 mg PO DAILY 01/31/19 [History] cloNIDine HCl [CloNIDine HCl] 0.1 mg PO BID 02/12/19 [History] hydrALAZINE [HydrALAZINE] 50 mg PO BID 02/12/19 [History] Allergy/AdvReac Type Severity Reaction Status Date / Time Warfarin [From Coumadin] Allergy Anaphylaxis Verified 01/31/19 09:49 heparin AdvReac Severe Unresponsiv Verified 01/31/19 09:49 e All Systems PM: A 10-system review of systems was performed and is negative for pertinent findings except as documented above in the HPI. Review of systems: General: Fevers / Chills / Weight loss / Night sweats / Fatigue Eyes: Blurry Vision / Change in Vision HENT: Ear Pain / Ear Drainage / Rhinorrhea / Throat Pain / Lymphadenopathy Cardiovascular: Chest Pain / Palpatations / Orthopnea / DAVID / Weight gain Lungs: Dyspnea / Wheezing / Cough / Sputum production / Pleurisy Abdomen: Abdomen pain / Abdominal distention / Nausea / Vomiting / Diarrhea / Const : Dysuria / Urinary Frequency / Urinary Urgency / Hematuria Extremities: LE edema / Ext pain / Ext erythema Skin: Rashes / Abrasions / Contusions Psych: Hallucinations / Anxiety / Depression Neuro: Weakness / Numbness / Tingling / Facial Droop / Dysphagia - Constitutional Vitals: Temp Pulse Resp BP Pulse Ox 97.8 F 66 16 96/68 100 02/12/19 11:21 02/12/19 14:51 02/12/19 14:51 02/12/19 14:51 02/12/19 14:51 Exam: General: Ill-appearing and in no acute distress HEENT: No erythema of posterior pharynx. No exudates. Lymphatics: No mandibular or cervical lymphadenopathy Cardiovascular: RRR. No murmurs. No chest wall tenderness. Lungs: Clear to auscelltation bilaterally but decreased breath sounds. Regular chest rise. Abdomen: Non-tender. No rebound or gaurding. Nl bowel sounds. Extremities: Trace edema. 2+ pulses radial and pedal pulses Skin: No rahses, abrasions, or contusions. Nl cap refill. Psych: Nl attention. 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 5/5 strength. Sensation to light touch and pinprick intact. Internal Med - H&P Results - Labs CBC & Chem 7: 02/12/19 12:15 02/12/19 12:15 Labs: Short CBC 02/12/19 Range/Units 12:15 WBC 9.2 (4.3-11.1) K/mcL Hgb 6.3 L (11.5-15.4) g/dL Hct 19.7 L (35.3-44.9) % Plt Count 108 L (140-400) K/mcL Neutrophils # 6.9 (1.6-8.9) K/mcL BMP 02/12/19 12:15 Sodium 125 L Potassium 4.4 Chloride 89 L Carbon Dioxide 23 BUN 40 H Creatinine 5.62 H Glucose 155 H Calcium 7.5 L Cardiac Enzymes 02/12/19 Range/Units 12:15 Troponin I < 0.03 (< 0.04) ng/mL Liver Function 02/12/19 Range/Units 12:15 Total Bilirubin 0.8 (0.3-1.0) mg/dL AST 11 L (13-39) Units/L ALT 7 (7-52) Units/L Alkaline Phosphatase 133 H (34-104) Units/L Albumin 2.5 L (3.5-5.7) g/dL - Impressions ITS Impressions Chest X-Ray 02/12/19 11:54 IMPRESSION: 1. Small bilateral pleural effusions 2. Stable cardiomegaly D/ / Pasquale Castillo MD / Pasquale Castillo MD Interpreting Provider: Pasquale Castillo MD - Assessment and Plan (1) Anasarca associated with disorder of kidney Current Visit: No Status: Acute Assessment and plan: Patient with history of end-stage renal disease with noncompliance to outpatient dialysis presents with shortness of breath after missing dialysis session today. -T/T/S HD sessions -Discussed with nephrology: Query whether palliative care consult would be helpful but Dr. Fenton recommended against this bc patient wants dialysis just non-compliant No needs for urgent dialysis but will set up for dialysis today given this is her regular day PLAN: - HD today - Nephrology following, appreciate recommendations - Discuss with her the appropriate use of emergency services before discharge (2) ESRD (end stage renal disease) on dialysis Current Visit: No Status: Chronic Assessment and plan: See above (3) Noncompliance with renal dialysis Current Visit: No Status: Chronic Assessment and plan: See above (4) Macrocytic anemia Current Visit: Yes Status: Acute Assessment and plan: History of macrocytic anemia and reported history of GI ulcers. Noncompliance with outpatient PPI. No history of GI blood loss and hemodynamically stable. -Patient likely just drifted under baseline insetting of hypervolemia and missing dialysis -Also likely not getting routine EPO given missing dialysis sessions -Low concern for active GI bleed currently although at risk given noncompliance with outpatient PPI PLAN: - 1U pRBCs and re-assess response - Home PPI - B12 level (given macrocytosis) - EPO with HD per nephrology - Consider GI consult if not appropriate response to 1 unit of pRBCs (5) History of GI bleed Current Visit: No Status: Acute Assessment and plan: See above (6) Hypoglycemia Current Visit: No Status: Acute Assessment and plan: Has been worked up during past hospitalizations and concern for insulinoma. Workup with fpga design engineer in [place] has been suggested and patient has refused. Recommended she transferred to [place] this admission given she could get hypoglycemia further evaluated, however, patient refused. - We will monitor blood sugars's this hospitalization and further workup necessary (7) Hyponatremia Current Visit: Yes Status: Acute Assessment and plan: Hypervolemic hyponatremia and setting of missing dialysis - Time Spent With Patient Total time spent is greater than 50% in coordination of care (as documented) at patient's floor/unit and/or counseling patient:
[2019-02-12] MEDS ORDERED: 0.9 % Sodium Chloride 250 ML IVC PRN (16:55)
[2019-02-12] MEDS ORDERED: 0.9 % Sodium Chloride 1,000 ML PRIME SCH (17:00)
[2019-02-12] MEDS: cloNIDine HCl 0.1 MG TABLET PO SCH (17:44)
--- NOTE | 2019-02-12 20:57 | Nephrology Consult Note ---
<AmyGisel link B - Last Filed: 02/12/19 21:11> Date of Encounter: 02/12/19 Time of Encounter: 17:00 Assessment and Plan (1) Hyponatremia Status: Acute NA is 125, likely related to hypervolemia/fluid overload. Will correct with HD. (2) Macrocytic anemia Status: Acute Hgb 6.3 2 units PRCBs infused. (3) Abdominal pain Status: Acute Per primary. Qualifiers: Abdominal location: lower abdomen, unspecified Qualified Code(s): R10.30 - Lower abdominal pain, unspecified (4) ESRD (end stage renal disease) on dialysis Status: Acute Current regimen TTS [facility]. Misses frequently in outpatient HD. HD ordered for today. Plan for UF tomorrow. Avoid nephrotoxins and renal dose. Strict I/O Renal diet. History of Present Illness - Reason for Consult Consult date: 02/12/19 end stage renal disease - Chief Complaint low hgb - History of Present Illness Ms. Alexis is a 44 year old female who presented to ED with concerns for anemia. Hgb was checked at outpatient HD unit and she was told to come to ED. Initial Hgb 6.3. PMH: obesity, calciphylaxis, and ESRD. Current regimen is TTS at [facility]. Pt is grossly non-compliant with HD session, fluid gains, and overall diet. She has history of DM II, but has recently had episodes of hypoclygemia likely related to insulinoma. She was in ED Monday, and was encouraged to go to [facility], but she left AMA. She did miss HD Monday. She lives at home with . Denies etoh, tobacco, or illicit drug use. No FH of CKD of HD. Was on PD for several years, but was transitioned to HD after Calciphylaxis wound were extensive to abdomen area. HD was started 12/2017 with the hope of switching back to PD. Given pt's noncompliance and frequent HD missed session and hospitalization, she would not be a great candidate for PD. [facility] consulted for HD managment. Will continue current regimen, however patient typically recieves back to back HD/UF manage fluid status. Past Med Surg Social Fam HX - Past Medical History Medical history: asthma, atrial fibrillation, cardiomyopathy, diabetes, dialysis, GI bleed, hyperlipidemia, hypertension, renal disease, thyroid disease Additional medical history: last dialysis was on monday and due for today Psychiatric history: no psych history - Past Surgical History Surgical History: appendectomy, cholecystectomy, thyroidectomy, transplant, other Additional surgical history: KIDNEY TRANSPLANT 2007, TUBAL LIGATION, left antecubital AV fistula, multiple surgical and endovascular interventions for the left antecubital AV fistula, and placement of a left upper arm AV shunt - Social History Smoking Status: Never smoker Smokeless Tobacco Status: No Alcohol use: none Drug use: none - Family History Father Adopted: No Family Member Ethnicity: Non- Living Status: Hx Family Cardiac Disorders: Yes Hx Family Respiratory Disorders: Yes Hx Family Cancer: Yes Hx Family GI Disorders: No Hx Family Endocrine Disorder: Yes Hx Family Neuromuscular Disorders: No Hx Family Neurologic Disorders: No Hx Family HEENT Disorders: No Hx Family Autoimmune Disorders: No Mother Adopted: No Living Status: Hx Family Cardiac Disorders: Yes Hx Family Respiratory Disorders: No Hx Family Cancer: Yes Hx Family GI Disorders: No Hx Family Endocrine Disorder: No Hx Family Neuromuscular Disorders: No Hx Family Neurologic Disorders: No Hx Family HEENT Disorders: No Hx Family Autoimmune Disorders: No Medications and Allergies Cholecalciferol (Vitamin D3) [Vitamin D3] 50,000 units PO QWEEK 12/28/18 [History] Albuterol Sulfate [Proventil Inhaler] 2 puff PO Q4H PRN 01/31/19 [History] Apixaban [Eliquis] 5 mg PO BID 01/31/19 [History] Atorvastatin [Lipitor] 40 mg PO HS 01/31/19 [History] Folic Acid 1 mg PO DAILY 01/31/19 [History] Levothyroxine Sodium 100 mcg PO QAM 01/31/19 [History] Metoclopramide [Reglan] 5 mg PO 0800,1700 01/31/19 [History] Metoprolol Succinate [Toprol Xl] 25 mg PO DAILY 01/31/19 [History] cloNIDine HCl [CloNIDine HCl] 0.1 mg PO BID 02/12/19 [History] hydrALAZINE [HydrALAZINE] 50 mg PO BID 02/12/19 [History] Pantoprazole Sodium [Protonix] 40 mg PO QDPC #30 tablet 02/14/19 [Rx] Allergy/AdvReac Type Severity Reaction Status Date / Time Warfarin [From Coumadin] Allergy Anaphylaxis Verified 01/31/19 09:49 heparin AdvReac Severe Unresponsiv Verified 01/31/19 09:49 e Review of Systems All Systems review (narrative): The remainder of the systems are negative. Constitutional: fatigue, no chills, no fever(s) Cardiovascular: dyspnea, edema, no chest pain Respiratory: no dyspnea, no hemoptysis Gastrointestinal: no diarrhea, no melena, no nausea, no vomiting Exam - Vital Signs Vital signs: Initial Vital Signs Temp Pulse Resp BP Pulse Ox 97.8 F 78 18 148/101 100 02/12/19 11:06 02/12/19 11:06 02/12/19 11:06 02/12/19 11:06 02/12/19 11:06 Vital Signs - Last 8 Hours Temp Pulse Resp BP Pulse Ox 02/12/19 20:30 98.1 F 75 18 109/57 02/12/19 20:15 105/65 02/12/19 20:07 97.8 F 69 18 139/82 02/12/19 20:00 144/82 02/12/19 19:45 139/79 02/12/19 19:28 97.6 F 68 20 129/75 02/12/19 19:15 111/62 02/12/19 19:13 97.5 F L 56 18 105/62 97 02/12/19 19:00 127/65 02/12/19 18:45 148/56 02/12/19 18:30 97.1 F L 17 149/72 02/12/19 17:05 97.7 F 67 18 112/70 100 02/12/19 16:06 66 18 112/67 100 02/12/19 14:51 66 16 96/68 100 02/12/19 14:13 66 16 95/74 99 02/12/19 13:53 67 18 106/87 100 Intake and Output 02/12/19 02/12/19 02/12/19 07:59 15:59 23:59 Intake Total 1700 / 1700 Balance 1700 / 1700 Intake: Oral 0 / 0 Blood Product 1100 / 1100 Rbcs Leuko Poor As-1 Unit 750 / 750 [id number] Rbcs Leuko Poor As-1 Unit 350 / 350 [id number] Intake, Rinseback and Flushes 600 / 600 Other: Weight 83.603 kg Blood Glucose* 86 Hemodialysis Net Fluid Removed 2496 (mL) Patient Weight 02/12/19 23:59 Weight 83.603 kg - General Appearance General appearance: chronically ill, frail EENT: ATNC, hearing intact, vision intact Neck: supple Respiratory: clear Cardiology: edema (Noted to abdomen, pitting edema. ), normal S1, normal S2 - Dialysis Access Dialysis Vascular Access: Arteriovenous Fistula thrill: Yes bruit: Yes Gastrointestinal: normoactive bowel sounds, no tenderness, no guarding Integumentary: no rash, warm and dry Neurologic: alert and oriented x3 Musculoskeletal: no deformities, no erythema Psychiatric: mood/affect appropriate, cooperative Results - Lab Results 02/12/19 12:15 02/12/19 12:15 Most recent lab results 02/12/19 12:15 Calcium 7.5 L Magnesium 1.7 Consult Discharge Plan - Plan Instructions: Pantoprazole (By mouth), Chronic Kidney Disease (DC), Renal Failure Diet (DC), Anemia (GEN) Referrals: NONE,PCP [Primary Care Provider] - (Pt encouraged to establish with PCP.) Prescriptions: Pantoprazole Sodium [Protonix] 40 mg PO QDPC #30 tablet. <Saran Wei - Last Filed: 02/19/19 21:52> Date of Encounter: 02/12/19 Assessment and Plan (1) Abdominal pain Status: Acute Qualifiers: Abdominal location: lower abdomen, unspecified Qualified Code(s): R10.30 - Lower abdominal pain, unspecified (2) Macrocytic anemia Status: Acute (3) Hyponatremia Status: Resolved (4) ESRD (end stage renal disease) on dialysis Status: Acute Exam - Vital Signs Vital signs: Initial Vital Signs Temp Pulse Resp BP Pulse Ox 97.8 F 78 18 148/101 100 02/12/19 11:06 02/12/19 11:06 02/12/19 11:06 02/12/19 11:06 02/12/19 11:06 Results - Lab Results 02/14/19 05:00 02/14/19 05:00 - Attending Attestation I examined this patient and my medical decision-making was reviewed with the Resident Physician/MEDICATION TECHNICIAN. I agree with the documented findings, disposition and treatment plan as described except to the extent set forth below. In brief; 44 y o female with PMH of DM, HTN, CAD, Afib and ESRD s/p failed transplant, healed calciphylasix with history of noncompliance admitted for anemia with hgb in the 6.0s requiring transfusion pRBCs. Pt seen and examined on HD. On exam: Gen: chronic ill appearing NAD, lungs clear, heart S1s2, abd soft with healed scars and edema, ext No LE edema bilat, AF with trhill and bruit, neuro AAOx3. Continue HD with UF as tolerated. Lytes stable. Renal diet advised. Fluid restriction advised.
[2019-02-12] MEDS: hydrALAZINE 25 MG TABLET PO SCH (22:58)
[2019-02-12] MEDS: Apixaban 5 MG TABLET PO SCH (23:02)
[2019-02-13 02:40] LABS: Basophils % 0.3 %; Eosinophils # 0.3 K/mcL (0.0-0.6); Eosinophils % 2.9 %; Hematocrit 26.5 % (35.3-44.9); Immature Granulocytes % 0.8 % (0-4); Lymphocytes # 0.7 K/mcL (0.6-4.6); Lymphocytes % 7.9 %; Mean Corpuscular HGB Conc 33.2 g/dL (31.6-35.5); Mean Corpuscular Hemoglobin 32.2 pg (28.0-33.3); Mean Platelet Volume 11.3 fL (9.4-12.4); Monocytes # 1.1 K/mcL (0.0-1.3); Monocytes % 12.4 %; Neutrophils # 6.8 K/mcL (1.6-8.9); Platelet Count 102 K/mcL (140-400); Red Blood Count 2.73 M/mcL (3.82-4.97); Red Cell Distribution Width 20.2 % (11.5-14.5); Segmented Neutrophils % 75.7 %
[2019-02-13 02:58] LABS: Calcium 7.5 mg/dL (8.6-10.3); Potassium 3.9 mEq/L (3.5-5.1)
[2019-02-13 03:07] LABS: Hemoglobin 8.8 g/dL (11.5-15.4); Mean Corpuscular Volume 97.1 fL (83.0-100.0)
[2019-02-13] MEDS: Metoprolol XL (24 HR) Succ 25 MG TAB.ER.24H PO SCH (05:22)
[2019-02-13] MEDS ORDERED: Metoprolol XL (24 HR) Succ 25 MG TAB.ER.24H PO SCH (09:00)
[2019-02-13 09:05] LABS: % Iron Saturation 99 % (15-50); Iron 104 mcg/dL (50-170); Transferrin 75 mg/dL (203-362)
[2019-02-13 09:42] LABS: Ferritin > 1500 ng/mL (10-120)
[2019-02-13] MEDS: hydrALAZINE 25 MG TABLET PO SCH ×2 (09:58→21:36)
[2019-02-13] MEDS: Apixaban 5 MG TABLET PO SCH ×2 (09:58→21:36)
[2019-02-13] MEDS: Folic Acid 1 MG TABLET PO SCH (09:58)
[2019-02-13] MEDS: Cholecalciferol (D-3) 1,000 UNIT (25MCG) TABLET PO SCH (09:59)
[2019-02-13] MEDS: cloNIDine HCl 0.1 MG TABLET PO SCH ×2 (09:59→21:36)
--- NOTE | 2019-02-13 13:47 | Event Note ---
Date of Encounter: 02/13/19 Time of Encounter: 13:00 Patient admitted with complaints of SOB and low hemoglobin. PMH of morbid obesity, ESRD HD T/T/S with non-compliance, previous diagnosis of Type II Diabetes now with frequent hypoglycemic events. Patient has a history of noncompliance and frequent hospital admissions for missing dialysis. She was admitted last week for missing dialysis and was dialyzed 3 times in a row to reach euvolemia. Palliative care team consulted to establish GOC. Met with patient and patient has completed advanced directives in the past and desires to continue dialysis and remain a full code. Patient states that she currently lives with life partner Matthew and sees her children regularly. She denies having discharge needs. Patient has made her goals of care clear and advanced directives are completed. The palliative care will sign-off case. We appreciate the opportunity to participate in the care of this client.
--- NOTE | 2019-02-13 14:02 | Internal Med Progress Note ---
Hospitalist Progress Note - Encounter Date of Encounter: 02/13/19 Time of Encounter: 13:59 - Subjective Interval History: Patient received 2 units of blood and responded appropriately. Going for dialysis today and ultrafiltration tomorrow. - Exam Vitals: Temp Pulse Resp BP Pulse Ox 98.0 F 71 16 127/83 99 02/13/19 11:51 02/13/19 11:51 02/13/19 11:51 02/13/19 11:51 02/13/19 11:51 Exam: General: Ill-appearing and in no acute distress HEENT: No erythema of posterior pharynx. No exudates. Lymphatics: No mandibular or cervical lymphadenopathy Cardiovascular: RRR. No murmurs. No chest wall tenderness. Lungs: Clear to auscelltation bilaterally but decreased breath sounds. Regular chest rise. Abdomen: Non-tender. No rebound or gaurding. Nl bowel sounds. Extremities: Trace edema. 2+ pulses radial and pedal pulses Skin: No rahses, abrasions, or contusions. Nl cap refill. Psych: Nl attention. 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 5/5 strength. Sensation to light touch and pinprick intact. - Assessment and Plan (1) Anasarca associated with disorder of kidney Current Visit: No Status: Acute Assessment and Plan: Patient with history of end-stage renal disease with noncompliance to outpatient dialysis presents with shortness of breath after missing dialysis session today. -T/T/S HD sessions -Discussed with nephrology: We will go for dialysis today and ultrafiltration tomorrow Likely DC tomorrow after HD PLAN: - HD today and tomorrow - Nephrology following, appreciate recommendations - Discuss with her the appropriate use of emergency services before discharge (2) ESRD (end stage renal disease) on dialysis Current Visit: No Status: Chronic Assessment and Plan: See above (3) Noncompliance with renal dialysis Current Visit: No Status: Chronic Assessment and Plan: See above (4) Macrocytic anemia Current Visit: Yes Status: Acute Assessment and Plan: History of macrocytic anemia and reported history of GI ulcers. Noncompliance with outpatient PPI. No history of GI blood loss and hemodynamically stable. -Patient likely just drifted under baseline insetting of hypervolemia and missing dialysis -Also likely not getting routine EPO given missing dialysis sessions -Low concern for active GI bleed currently although at risk given noncompliance with outpatient PPI -Responded appropriately to 2 units of blood yesterday PLAN: - Home PPI - EPO with HD per nephrology - will order iron panel before EPO given in the hospital (5) History of GI bleed Current Visit: No Status: Acute Assessment and Plan: See above (6) Hypoglycemia Current Visit: No Status: Acute Assessment and Plan: Has been worked up during past hospitalizations and concern for insulinoma. Workup with electrical solderer in [place] has been suggested and patient has refused. Recommended she transferred to [place] this admission given she could get hypoglycemia further evaluated, however, patient refused. - No hypoglycemic episodes this hospitalization thus far (7) Hyponatremia Current Visit: Yes Status: Resolved Assessment and Plan: Hypervolemic hyponatremia and setting of missing dialysis - Improving DVT Prophylaxis: Apixaban Internal Medicine: Result - Labs CBC & Chem 7: 02/13/19 02:29 02/13/19 02:29 Labs: Short CBC 02/13/19 Range/Units 02:29 WBC 9.0 (4.3-11.1) K/mcL Hgb 8.8 L D (11.5-15.4) g/dL Hct 26.5 L (35.3-44.9) % Plt Count 102 L (140-400) K/mcL Neutrophils # 6.8 (1.6-8.9) K/mcL BMP 02/13/19 02:29 Sodium 131 L Potassium 3.9 Chloride 94 L Carbon Dioxide 28 BUN 21 H Creatinine 3.36 H Glucose 110 H Calcium 7.5 L Consult Discharge Plan - Plan Referrals: NONE,PCP [Primary Care Provider] -
--- NOTE | 2019-02-13 15:18 | Nephrology Progress Note ---
Date of Encounter: 02/13/19 Time of Encounter: 15:14 - Assessment and Plan (1) ESRD (end stage renal disease) on dialysis Current Visit: Yes Status: Acute Current regimen TTS [facility]. Misses frequently in outpatient HD. HD completed yesterday without complication. Avoid nephrotoxins and renal dose. Strict I/O Renal diet. (2) Hyponatremia Current Visit: Yes Status: Resolved NA is 131, improved, likely related to hypervolemia/fluid overload. Will correct with HD. (3) Macrocytic anemia Current Visit: Yes Status: Acute Hgb 8.8, stable. 2 units PRCBs infused. (4) Abdominal pain Current Visit: No Status: Acute Per primary. Qualifiers: Abdominal location: lower abdomen, unspecified Qualified Code(s): R10.30 - Lower abdominal pain, unspecified Subjective Principal diagnosis: low hgb Interval history: Patient seen and examined. Denies chest pain or shortness of breath. Denies nausea, vomiting or diarrhea. Admits she is feeling better she wishes she could actually go home today. Objective - Vital Signs Vital signs: Vital Signs Temp Pulse Resp BP Pulse Ox 02/13/19 11:51 98.0 F 71 16 127/83 99 02/13/19 08:17 98.4 F 75 18 142/89 100 02/13/19 04:22 98.7 F 72 16 100/71 97 02/12/19 23:22 97.6 F 65 16 148/79 100 02/12/19 22:42 97.5 F L 18 149/75 02/12/19 22:00 139/77 02/12/19 21:45 133/71 02/12/19 21:30 138/74 02/12/19 21:15 126/61 02/12/19 21:05 98.3 F 67 20 131/66 96 02/12/19 21:00 131/66 02/12/19 20:45 121/67 02/12/19 20:30 98.1 F 75 18 109/57 02/12/19 20:15 105/65 02/12/19 20:07 97.8 F 69 18 139/82 02/12/19 20:00 144/82 02/12/19 19:45 139/79 02/12/19 19:28 97.6 F 68 20 129/75 02/12/19 19:15 111/62 02/12/19 19:13 97.5 F L 56 18 105/62 97 02/12/19 19:00 127/65 02/12/19 18:45 148/56 02/12/19 18:30 97.1 F L 17 149/72 02/12/19 17:05 97.7 F 67 18 112/70 100 02/12/19 16:06 66 18 112/67 100 Intake and Output 02/12/19 02/13/19 02/13/19 23:59 07:59 15:59 Intake Total 1350 / 1350 480 / 480 Output Total 4100 / 4100 Balance -2750 / -2750 480 / 480 Intake: Oral 50 / 50 480 / 480 Blood Product 700 / 700 Rbcs Leuko Poor As-1 Unit 350 / 350 [id number] Rbcs Leuko Poor As-1 Unit 350 / 350 [id number] Intake, Rinseback and Flushes 600 / 600 Output: Urine 0 / 0 Total Dialysis (HD) Output 4100 / 4100 Other: Meal Lunch Percent of Meal Consumed 40% Weight 80.7 kg Blood Glucose* 52 89 136 Hemodialysis Net Fluid Removed 3000 (mL) - General Appearance General appearance: Present: well-developed, well-nourished EENT: Present: ATNC, hearing intact, vision intact Neck: Present: supple Respiratory: Present: clear Cardiology: Present: edema (Abdomen distended, not firm.), normal S1, normal S2 Dialysis Vascular Access: Arteriovenous Fistula thrill: Yes bruit: Yes Gastrointestinal: Present: normoactive bowel sounds, no tenderness, no guarding Integumentary: Present: no rash, warm and dry Neurologic: Present: alert and oriented x3 Musculoskeletal: Present: no deformities, no erythema Psychiatric: Present: mood/affect appropriate, cooperative - Lab 02/13/19 02:29 02/13/19 02:29 Consult Discharge Plan - Plan Referrals: NONE,PCP [Primary Care Provider] -
[2019-02-14 05:18] LABS: Hematocrit 27.3 % (35.3-44.9); Hemoglobin 9.1 g/dL (11.5-15.4); Mean Corpuscular HGB Conc 33.3 g/dL (31.6-35.5); Mean Corpuscular Hemoglobin 32.7 pg (28.0-33.3); Mean Corpuscular Volume 98.2 fL (83.0-100.0); Mean Platelet Volume 11.2 fL (9.4-12.4); Platelet Count 101 K/mcL (140-400); Red Blood Count 2.78 M/mcL (3.82-4.97); Red Cell Distribution Width 20.7 % (11.5-14.5); White Blood Count 8.7 K/mcL (4.3-11.1)
[2019-02-14 05:39] LABS: Calcium 7.6 mg/dL (8.6-10.3); Potassium 4.4 mEq/L (3.5-5.1)
[2019-02-14] MEDS ORDERED: 0.9 % Sodium Chloride 250 ML IVC PRN (07:23)
[2019-02-14] MEDS: Folic Acid 1 MG TABLET PO SCH (08:56)
[2019-02-14] MEDS: Apixaban 5 MG TABLET PO SCH (08:56)
[2019-02-14] MEDS: Cholecalciferol (D-3) 1,000 UNIT (25MCG) TABLET PO SCH (08:56)
[2019-02-14] MEDS ORDERED: Dextrose Gel 15 GM/37.5 ML TUBE PO PRN (09:14)
[2019-02-14] MEDS ORDERED: D5% in Water 1,000 ML IVC PRN (09:14)
[2019-02-14] MEDS ORDERED: *HR* Dextrose 50 % in Water (Syg) 50 ML SYRINGE IVP PRN (09:14)
[2019-02-14] MEDS: Dextrose Gel 15 GM/37.5 ML TUBE PO PRN ×2 (09:36→12:32)
--- NOTE | 2019-02-14 10:07 | Nephrology Progress Note ---
Date of Encounter: 02/14/19 Time of Encounter: 10:04 - Assessment and Plan (1) ESRD (end stage renal disease) on dialysis Current Visit: Yes Status: Acute Current regimen TTS [facility]. Misses frequently in outpatient HD. HD in progress for today. Avoid nephrotoxins and renal dose. Strict I/O Renal diet. (2) Hyponatremia Current Visit: Yes Status: Resolved NA is 130, stable. Will correct with HD. (3) Macrocytic anemia Current Visit: Yes Status: Acute Hgb 9.1, stable. 2 units PRCBs infused. (4) Abdominal pain Current Visit: No Status: Acute Per primary. Qualifiers: Abdominal location: lower abdomen, unspecified Qualified Code(s): R10.30 - Lower abdominal pain, unspecified Subjective Principal diagnosis: low hgb Interval history: Patient seen and examined during HD, tolerating well. Denies chest pain or shortness of breath. Denies nausea, vomiting or diarrhea. Objective - Vital Signs Vital signs: Vital Signs Temp Pulse Resp BP Pulse Ox 02/14/19 09:45 132/71 02/14/19 09:30 129/82 02/14/19 09:00 105/71 02/14/19 08:45 123/74 02/14/19 08:30 135/70 02/14/19 08:15 97.8 F 17 129/68 02/14/19 07:57 98.0 F 72 15 115/76 100 02/14/19 05:41 97.9 F 70 16 163/94 99 02/14/19 00:38 98.3 F 83 14 128/85 94 02/13/19 19:47 98.6 F 74 17 168/97 97 02/13/19 16:36 98.2 F 73 16 108/42 97 02/13/19 11:51 98.0 F 71 16 127/83 99 Intake and Output 02/13/19 02/14/19 02/14/19 23:59 07:59 15:59 Intake Total 240 / 720 500 / 500 Output Total 0 / 0 Balance 240 / 720 500 / 500 Intake: Oral 240 / 720 0 / 0 Intake, Rinseback and Flushes 500 / 500 Output: Urine 0 / 0 Other: Meal Dinner Percent of Meal Consumed 65% Blood Glucose* 117 63 Hemodialysis Net Fluid Removed 1929 (mL) - General Appearance General appearance: Present: well-developed, well-nourished EENT: Present: ATNC, hearing intact, vision intact Neck: Present: supple Respiratory: Present: clear Cardiology: Present: no edema, normal S1, normal S2 Dialysis Vascular Access: Arteriovenous Fistula thrill: Yes bruit: Yes Gastrointestinal: Present: normoactive bowel sounds, no tenderness, no guarding Integumentary: Present: no rash, warm and dry Neurologic: Present: alert and oriented x3 Musculoskeletal: Present: no deformities, no erythema Psychiatric: Present: mood/affect appropriate, cooperative - Lab 02/14/19 05:00 02/14/19 05:00 Most recent lab results 02/14/19 05:00 Calcium 7.6 L Consult Discharge Plan - Plan Referrals: NONE,PCP [Primary Care Provider] -
[2019-02-14] MEDS ORDERED: Dextrose Gel 15 GM/37.5 ML TUBE PO ONE (12:31)
[2019-02-14] MEDS: Metoprolol XL (24 HR) Succ 25 MG TAB.ER.24H PO SCH (12:33)
[2019-02-14] MEDS: cloNIDine HCl 0.1 MG TABLET PO SCH (12:33)
[2019-02-14] MEDS: hydrALAZINE 25 MG TABLET PO SCH (12:33)
[2019-02-14 12:34] VITALS: BP 115/57
--- NOTE | 2019-02-14 13:14 | Discharge Summary ---
Orders not resulted at time of discharge: Pending orders 02/12/19 11:54 Urinalysis Reflex Cult & Micro [URIN] Stat Date of Encounter: 02/14/19 Time of Encounter: 13:10 - Discharge Diagnosis (1) Anasarca associated with disorder of kidney Priority: Primary Status: Acute (2) ESRD (end stage renal disease) on dialysis Priority: Secondary Status: Chronic (3) Noncompliance with renal dialysis Priority: Secondary Status: Chronic (4) Macrocytic anemia Priority: Secondary Status: Acute (5) History of GI bleed Priority: Secondary Status: Acute (6) Hypoglycemia Priority: Secondary Status: Acute (7) Hyponatremia Priority: Secondary Status: Resolved Hospital course: Ms. Alexis is a 44 year old female with history of end-stage renal disease with noncompliance to outpatient dialysis presented with shortness of breath after missing dialysis session. Patient also anemic because history of PUD and noncompliance with outpatient PPI and does not attend dialysis sessions regularly enough to get prescribed EPO. We will represcribe PPI to ensure that patient starts taking this and encouraged patient to go to hemodialysis sessions. No modifiable barriers identified to keep patient from going to HD sessions, patient just says that she sometimes doesn't want to go. - Time Spent with Patient Total time spent providing and/or coordinating discharge services: - Discharge Medications Prescriptions: Continued Cholecalciferol (Vitamin D3) [Vitamin D3] 50,000 units PO QWEEK Metoclopramide [Reglan] 5 mg PO 0800,1700 Folic Acid 1 mg PO DAILY Atorvastatin [Lipitor] 40 mg PO HS Levothyroxine Sodium 100 mcg PO QAM Apixaban [Eliquis] 5 mg PO BID Albuterol Sulfate [Proventil Inhaler] 2 puff PO Q4H PRN PRN Reason: Shortness Of Breath Metoprolol Succinate [Toprol Xl] 25 mg PO DAILY cloNIDine HCl [CloNIDine HCl] 0.1 mg PO BID hydrALAZINE [HydrALAZINE] 50 mg PO BID Discontinued Omeprazole [PriLOSEC] 20 mg PO DAILY Home Medications: Cholecalciferol (Vitamin D3) [Vitamin D3] 50,000 units PO QWEEK 12/28/18 [History] Albuterol Sulfate [Proventil Inhaler] 2 puff PO Q4H PRN 01/31/19 [History] Apixaban [Eliquis] 5 mg PO BID 01/31/19 [History] Atorvastatin [Lipitor] 40 mg PO HS 01/31/19 [History] Folic Acid 1 mg PO DAILY 01/31/19 [History] Levothyroxine Sodium 100 mcg PO QAM 01/31/19 [History] Metoclopramide [Reglan] 5 mg PO 0800,1700 01/31/19 [History] Metoprolol Succinate [Toprol Xl] 25 mg PO DAILY 01/31/19 [History] cloNIDine HCl [CloNIDine HCl] 0.1 mg PO BID 02/12/19 [History] hydrALAZINE [HydrALAZINE] 50 mg PO BID 02/12/19 [History] Allergies/Adverse Reactions: Allergy/AdvReac Type Severity Reaction Status Date / Time Warfarin [From Coumadin] Allergy Anaphylaxis Verified 01/31/19 09:49 heparin AdvReac Severe Unresponsiv Verified 01/31/19 09:49 e Date of admission: 02/12/19 16:01 Primary care physician: PCP NONE Consults: 02/12/19 11:52 Consult to Invasive Line Access Team [CONS] Stat Reason for Consult: Difficult access; required central line on visit over the weekend. Line Type: PICC 02/12/19 14:59 Consult to Nephrology [CONS] Stat Consulting Provider: Kidney Loli/TAYLOR/THUY/EDEL Reason for Consult: Due for HD today and presenting with SOB and hypervolemia Call Completed: Yes Consult to Palliative Care [CONS] Stat Comment: Consulting Provider: Palliative Care Loli Reason for Consult: Recurrent admissions and non-compliance with HD, consult to discuss goals of care Call Completed: Yes 02/12/19 17:00 Consult to Dialysis [CONS] ONCE 02/13/19 10:10 Consult to Nurse Navigator [CONS] Routine Comment: hd 02/14/19 07:30 Consult to Dialysis [CONS] ONCE - Constitutional Vitals: Temp Pulse Resp BP Pulse Ox 97.9 F 71 16 115/57 99 02/14/19 12:32 02/14/19 12:32 02/14/19 12:32 02/14/19 12:32 02/14/19 12:32 Exam: General: Ill-appearing and in no acute distress HEENT: No erythema of posterior pharynx. No exudates. Lymphatics: No mandibular or cervical lymphadenopathy Cardiovascular: RRR. No murmurs. No chest wall tenderness. Lungs: Clear to auscelltation bilaterally but decreased breath sounds. Regular chest rise. Abdomen: Non-tender. No rebound or gaurding. Nl bowel sounds. Extremities: Trace edema. 2+ pulses radial and pedal pulses Skin: No rahses, abrasions, or contusions. Nl cap refill. Psych: Nl attention. 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 5/5 strength. Sensation to light touch and pinprick intact. - Patient Status Disposition: Home, Self-Care Functional capacity at discharge: independent ambulation Overall status at discharge: patient is back to baseline - Discharge Instructions Follow Up With: NONE,PCP [Primary Care Provider] - - Diet and Activity Activity: increase activity as tolerated Diet: low salt diet
--- NOTE | 2019-02-14 13:17 | Electrocardiograph Report ---
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
--- NOTE | 2019-02-14 15:11 | Physician Discharge Referral ---
Home Health/Hosp Referral Info Attending Provider: Pasquale Styles MD Provider in Charge Post Discharge: PCP - Diagnosis (1) Anasarca associated with disorder of kidney Status: Acute (2) ESRD (end stage renal disease) on dialysis Priority: Secondary Status: Chronic (3) Noncompliance with renal dialysis Priority: Secondary Status: Chronic (4) Macrocytic anemia Priority: Secondary Status: Acute (5) History of GI bleed Priority: Secondary Status: Acute (6) Hypoglycemia Priority: Secondary Status: Acute (7) Hyponatremia Priority: Secondary Status: Resolved - Respiratory Orders Smoking Cessation: Smoking cessation has been advised. For more information, call the [place] Tobacco Quit Line at 0-072-RCEE-NOW. - Diet/Nutrition Diet/Nutrition Orders: Renal - Activity Activity Orders: Walker - Services Needed Following services are medically necessary services: Nursing, Home Health Aide, Med Social Work - Transfer Medications Prescriptions: Pantoprazole Sodium [Protonix] 40 mg PO QDPC #30 tablet. Home Medications: Cholecalciferol (Vitamin D3) [Vitamin D3] 50,000 units PO QWEEK 12/28/18 [History] Albuterol Sulfate [Proventil Inhaler] 2 puff PO Q4H PRN 01/31/19 [History] Apixaban [Eliquis] 5 mg PO BID 01/31/19 [History] Atorvastatin [Lipitor] 40 mg PO HS 01/31/19 [History] Folic Acid 1 mg PO DAILY 01/31/19 [History] Levothyroxine Sodium 100 mcg PO QAM 01/31/19 [History] Metoclopramide [Reglan] 5 mg PO 0800,1700 01/31/19 [History] Metoprolol Succinate [Toprol Xl] 25 mg PO DAILY 01/31/19 [History] cloNIDine HCl [CloNIDine HCl] 0.1 mg PO BID 02/12/19 [History] hydrALAZINE [HydrALAZINE] 50 mg PO BID 02/12/19 [History] Pantoprazole Sodium [Protonix] 40 mg PO QDPC #30 tablet. 02/14/19 [Rx] Allergies/Adverse Reactions: Allergy/AdvReac Type Severity Reaction Status Date / Time Warfarin [From Coumadin] Allergy Anaphylaxis Verified 01/31/19 09:49 heparin AdvReac Severe Unresponsiv Verified 01/31/19 09:49 e Certification: Further, I certify that my clinical findings support that this patient is homebound (i.e. absences from home require considerable and taxing effort and are for medical reasons or [employer] services or infrequently or short duration when for other reasons) because: Very limited mobility and medical non- compliance. Home health will help to decrease re-admission risk. Homebound Reason: Patient requires assistance of a person or device to safely leave home Attestation: My signature below is to certify that this patient is under my care and that I, or nurse practitioner, or a physician's assistant director working with me, has a [id number] encounter with this patient.
== END 2019-02-14 15:38 | disposition home or self-care (01) ==
LOC: SUATTDRO → EMEROOARM 11:06 → 2ANU 11:06 → SUATTDRO 16:01 → 2ANU 16:10
PROVIDERS: ADMIT Internal Medicine; ATTEND Internal Medicine

== ENCOUNTER 2019-02-21 15:09 | Inpatient (IN) ==
[2019-02-21] MEDS ORDERED: Morphine Sulfate 2 MG/ML SYRINGE IVP ONE (15:51)
[2019-02-21] MEDS ORDERED: Ondansetron 4 MG/2 ML VIAL IVP ONE (15:51)
[2019-02-21 17:08] LABS: Hemoglobin 7.6 g/dL (11.5-15.4); Immature Granulocytes % 0.4 % (0-4)
[2019-02-21 17:10] LABS: Basophils % 0.5 %; Eosinophils # 0.2 K/mcL (0.0-0.6); Hematocrit 23.6 % (35.3-44.9); Immature Platelets 7.2 % (1.1-6.1); Lymphocytes % 12.4 %; Mean Corpuscular HGB Conc 32.2 g/dL (31.6-35.5); Mean Corpuscular Hemoglobin 32.6 pg (28.0-33.3); Mean Corpuscular Volume 101.3 fL (83.0-100.0); Monocytes # 1.2 K/mcL (0.0-1.3); Monocytes % 14.9 %; Neutrophils # 5.7 K/mcL (1.6-8.9); Platelet Count 104 K/mcL (140-400); Red Blood Count 2.33 M/mcL (3.82-4.97); Red Cell Distribution Width 19.8 % (11.5-14.5); Segmented Neutrophils % 69.8 %; White Blood Count 8.1 K/mcL (4.3-11.1)
[2019-02-21] MEDS ORDERED: *HR* HYDROmorphone (PF) 1 MG/ML SYRINGE IVP ONE (17:23)
[2019-02-21 17:28] LABS: Albumin 2.5 g/dL (3.5-5.7); Albumin/Globulin Ratio 0.7 (1.1-2.2); Bilirubin,Direct 0.4 mg/dL (0.0-0.2); Bilirubin,Indirect 0.6 mg/dL (0.0-1.2); Calcium 7.7 mg/dL (8.6-10.3); Globulin 3.6 g/dL (2.4-3.5); Potassium 3.6 mEq/L (3.5-5.1); Total Protein 6.1 g/dL (6.4-8.9)
[2019-02-21 17:46] LABS: Platelet Estimate Slight Decrease (Normal)
[2019-02-21] MEDS ORDERED: Piperacillin/Tazobactam 3.375 GM in 0.9 % Sodium Chloride Mini Bag 100 ML IVP ONE (19:00)
--- NOTE | 2019-02-21 19:01 | Emergency Department Note ---
Disposition Clinical Impression: Abdominal wall cellulitis Disposition: Still a Patient Condition: Good Time of Disposition: 18:00 General Adult HPI - General Chief complaint: ED Wound/Laceration Stated complaint: Open wound on abdomen Time Seen by Provider: 02/21/19 15:25 Source: patient, EMS Limitations: no limitations - History of Present Illness HPI Narrative: Patient a 44-year-old female that presents to the emergency department with chief complaint of abdominal wound. The patient states that she has a large wound that is opened up on her pannus that is black necrotic and having malodorous drainage. The patient reports she has end-stage renal on dialysis and also is a diabetic. The patient states that it is not worsened by anything nor is it improved by anything. The patient denies having trauma to that area. The patient does have scars on her abdomen from where she has had previous skin infections Pain Scale: 6 - Related Data Home Medications Medication Instructions Recorded Confirmed Cholecalciferol (Vitamin D3) 50,000 units PO QWEEK 12/28/18 02/21/19 [Vitamin D3] Albuterol Sulfate [Proventil 2 puff PO Q4H PRN 01/31/19 02/21/19 Inhaler] Apixaban [Eliquis] 5 mg PO BID 01/31/19 02/21/19 Atorvastatin [Lipitor] 40 mg PO HS 01/31/19 02/21/19 Folic Acid 1 mg PO DAILY 01/31/19 02/21/19 Levothyroxine Sodium 100 mcg PO QAM 01/31/19 02/21/19 Metoclopramide [Reglan] 5 mg PO 0800,1700 01/31/19 02/21/19 Metoprolol Succinate [Toprol Xl] 25 mg PO DAILY 01/31/19 02/21/19 cloNIDine HCl [CloNIDine HCl] 0.1 mg PO BID 02/12/19 02/21/19 hydrALAZINE [HydrALAZINE] 50 mg PO BID 02/12/19 02/21/19 Previous Rx's Medication Instructions Recorded Pantoprazole Sodium [Protonix] 40 mg PO QDPC #30 tablet. 02/14/19 Allergies Allergy/AdvReac Type Severity Reaction Status Date / Time morphine Allergy See Verified 02/21/19 16:34 Comments Warfarin [From Coumadin] Allergy Anaphylaxis Verified 01/31/19 09:49 heparin AdvReac Severe Unresponsiv Verified 01/31/19 09:49 e All systems ED: reviewed and negative except as stated. 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 Head: Normocephalic/atraumatic Eyes:PERRLA, EOMI, no conjunctivitis Nares: Without d/c. Ears: No erythema or d/c noted. Oralpharnyx: P&MMM noted, Neck: Supple, no JVD or CERTIFIED NURSE OPERATING ROOM noted. Cardovascular: regular rate and rhythm without murmur, brisk capillary refill, no peripheral edema. Lungs: Clear to ascultation bilaterally, non-labored Abd: Soft nontender, Non Distended, no guarding, no rebound. There is a ulcerated/skin defect of the abdomen inferior to the umbilicus in the left side that is malodorous drainage and there is a black eschar in the wound : Defered Extremities: moves all extremities equally Neuro: AOx3, no obvious gross neuro deficit Psych: Normal Affect Derm: No rash noted - General Limitations: no limitations General appearance: alert, in no apparent distress Course Course Narrative: The patient's vital signs are within normal limits. The patient's white blood cell count is not significantly elevated at this time a CT scan of the abdomen and pelvis just shows localized cellulitis patient is a end-stage renal dialysis patient of the case will be discussed with the hospitalist and the plan is to admit the patient to the hospital. The patient was given IV vancomycin and IV Zosyn in the emergency department Vital Signs Temperature 97.8 F 02/21/19 15:18 Pulse Rate 67 02/21/19 15:18 Respiratory Rate 16 02/21/19 15:18 Blood Pressure 139/60 02/21/19 15:18 O2 Sat by Pulse Oximetry 100 02/21/19 15:18 Temperature 97.6 F 02/21/19 23:22 Pulse Rate 65 02/21/19 23:22 Respiratory Rate 20 02/21/19 23:22 Blood Pressure 149/97 02/21/19 23:22 O2 Sat by Pulse Oximetry 100 02/21/19 23:22 Oxygen Delivery Oxygen Delivery Room Air Medical Decision Making - Lab Data Result diagrams: 02/21/19 22:37 02/21/19 16:51 Lab Results 02/21/19 02/21/19 02/21/19 Range/Units 16:51 16:51 16:51 WBC 8.1 (4.3-11.1) K/mcL RBC 2.33 L (3.82-4.97) M/mcL Hgb 7.6 L (11.5-15.4) g/dL Hct 23.6 L (35.3-44.9) % MCV 101.3 H (83.0-100.0) fL MCH 32.6 (28.0-33.3) pg MCHC 32.2 (31.6-35.5) g/dL RDW 19.8 H (11.5-14.5) % Plt Count 104 L (140-400) K/mcL MPV 11.0 (9.4-12.4) fL Immature Gran % 0.4 (0-4) % Seg Neutrophils % 69.8 % Lymphocytes % 12.4 % Monocytes % 14.9 % Eosinophils % 2.0 % Basophils % 0.5 % Neutrophils # 5.7 (1.6-8.9) K/mcL Lymphocytes # 1.0 (0.6-4.6) K/mcL Monocytes # 1.2 (0.0-1.3) K/mcL Eosinophils # 0.2 (0.0-0.6) K/mcL Basophils # 0.0 (0.0-0.2) K/mcL Platelet Estimate Slight Decrease L (Normal) Immature Plt Fraction 7.2 H (1.1-6.1) % Sodium 131 L (136-145) mEq/L Potassium 3.6 (3.5-5.1) mEq/L Chloride 96 L (98-107) mEq/L Carbon Dioxide 27 (23-29) mEq/L BUN 23 H (6-20) mg/dL Creatinine 3.54 H (0.60-1.20) mg/dL Est GFR ( Amer) 17 L (> 60) Est GFR (Non-Af Amer) 14 L (> 60) BUN/Creatinine Ratio 6 (6-26) Glucose 67 L (70-105) mg/dL Calculated Osmolality 274 L (280-300) Lactic Acid 2.0 (0.5-2.2) mmol/L Calcium 7.7 L (8.6-10.3) mg/dL Total Bilirubin 1.0 (0.3-1.0) mg/dL Direct Bilirubin 0.4 H (0.0-0.2) mg/dL Indirect Bilirubin 0.6 (0.0-1.2) mg/dL AST 10 L (13-39) Units/L ALT 5 L (7-52) Units/L Alkaline Phosphatase 134 H (34-104) Units/L Serum Total Protein 6.1 L (6.4-8.9) g/dL Albumin 2.5 L (3.5-5.7) g/dL Globulin 3.6 H (2.4-3.5) g/dL Albumin/Globulin Ratio 0.7 L (1.1-2.2)
[2019-02-21] MEDS ORDERED: Naloxone 0.4 MG/ML INJ IVP PRN (21:11)
[2019-02-21] MEDS ORDERED: D5% in Water 1,000 ML IVC PRN (21:35)
[2019-02-21] MEDS ORDERED: *HR* Dextrose 50 % in Water (Syg) 50 ML SYRINGE IVP PRN (21:35)
[2019-02-21] MEDS ORDERED: Dextrose Gel 15 GM/37.5 ML TUBE PO PRN (21:35)
--- NOTE | 2019-02-21 21:43 | Internal Med History&Physical ---
Date of Encounter: 02/21/19 Time of Encounter: 20:30 Internal Medicine - H&P: HPI Chief complaint: Abdominal wound Admitted From: Emergency Dept Plans for Post Hospital Care: Home History of present illness: Ms. Alexis is a 44 year old female Patient presented to the emergency department with an abdominal wound. She has a history of calciphylaxis, end-stage renal disease on dialysis. She has had wounds like this in the past, and says that this wound started as a sore on her stomach, but then opened up about 3 days ago. She has apparently of sweatpants that she says irritated her skin and caused the wound to open. Because of her experience with these in the past she decided to come to the emergency department before it gets any worse. She did have an appointment scheduled for next week with wound care but did not want to wait that long. In the emergency room for admission show vital signs were within normal limits. CBC notable for white count of 8.1, hemoglobin of 7.6 platelet count 104. BMP: Sodium 131, potassium 3.6, chloride 96, carbon dioxide 27, BUNs and 23, creatinine 3.54, GFR 14. Glucose 67 Lactic acid 2.[address] of the abdomen: IMPRESSION: Moderate ascites and moderate severe anasarca challenging evaluation. No convincing evidence of acute inflammatory process or bowel obstruction. IUD within the region the uterus. This appears in a caudal location may be extending into the region of the cervix. Please correlate with exam findings. Left lower quadrant skin ulceration/skin defect. Please correlate with exam findings. No definite subcutaneous emphysema. Atrophic [place] kidneys and right lower quadrant transplant kidney. In the emergency department patient received a dose of Zofran, 0.5 mg of Dilaudid, 4 mg of morphine. Blood cultures and wound cultures were drawn and patient was started on Zosyn and vancomycin. She was admitted to the hospital for further management. Upon my evaluation, patient is resting comfortably in the ER bed in no acute distress. She denies chest pain, abdominal pain, nausea, vomiting, diarrhea and constipation. She has a left arm fistula for dialysis. She does not make urine. She goes to dialysis on Monday, and Monday. She did not complete her dialysis session today, only finishing about 30 minutes before stopping. She has a history of atrial fibrillation and takes Eliquis. She is a full code. Past Med Surg Social Fam HX - Past Medical History Medical history: asthma, atrial fibrillation, cardiomyopathy, diabetes, dial ysis, GI bleed, hyperlipidemia, hypertension, renal disease, thyroid disease Additional medical history: T S dialysis Psychiatric history: no psych history - Past Surgical History Surgical History: appendectomy, cholecystectomy, thyroidectomy, transplant, other Additional surgical history: KIDNEY TRANSPLANT 2007, TUBAL LIGATION, left antecubital AV fistula, multiple surgical and endovascular interventions for the left antecubital AV fistula, and placement of a left upper arm AV shunt - Social History Smoking Status: Never smoker Smokeless Tobacco Status: No Alcohol use: none Drug use: none - Family History Father Adopted: No Family Member Ethnicity: Non- Living Status: Hx Family Cardiac Disorders: Yes Hx Family Respiratory Disorders: Yes Hx Family Cancer: Yes Hx Family GI Disorders: No Hx Family Endocrine Disorder: Yes Hx Family Neuromuscular Disorders: No Hx Family Neurologic Disorders: No Hx Family HEENT Disorders: No Hx Family Autoimmune Disorders: No Mother Adopted: No Living Status: Hx Family Cardiac Disorders: Yes Hx Family Respiratory Disorders: No Hx Family Cancer: Yes Hx Family GI Disorders: No Hx Family Endocrine Disorder: No Hx Family Neuromuscular Disorders: No Hx Family Neurologic Disorders: No Hx Family HEENT Disorders: No Hx Family Autoimmune Disorders: No Internal Medicine - H&P: Meds Cholecalciferol (Vitamin D3) [Vitamin D3] 50,000 units PO QWEEK 12/28/18 [History] Albuterol Sulfate [Proventil Inhaler] 2 puff PO Q4H PRN 01/31/19 [History] Apixaban [Eliquis] 5 mg PO BID 01/31/19 [History] Atorvastatin [Lipitor] 40 mg PO HS 01/31/19 [History] Folic Acid 1 mg PO DAILY 01/31/19 [History] Levothyroxine Sodium 100 mcg PO QAM 01/31/19 [History] Metoclopramide [Reglan] 5 mg PO 0800,1700 01/31/19 [History] Metoprolol Succinate [Toprol Xl] 25 mg PO DAILY 01/31/19 [History] cloNIDine HCl [CloNIDine HCl] 0.1 mg PO BID 02/12/19 [History] hydrALAZINE [HydrALAZINE] 50 mg PO BID 02/12/19 [History] Pantoprazole Sodium [Protonix] 40 mg PO QDPC #30 tablet. 02/14/19 [Rx] Allergy/AdvReac Type Severity Reaction Status Date / Time morphine Allergy See Verified 02/21/19 16:34 Comments Warfarin [From Coumadin] Allergy Anaphylaxis Verified 01/31/19 09:49 heparin AdvReac Severe Unresponsiv Verified 01/31/19 09:49 e All Systems PM: A 10-system review of systems was performed and is negative for pertinent findings except as documented above in the HPI. - Constitutional Vitals: Temp Pulse Resp BP Pulse Ox 97.3 F L 66 20 161/87 100 02/21/19 21:17 02/21/19 21:17 02/21/19 21:17 02/21/19 21:17 02/21/19 21:17 General appearance: Present: cooperative, A&O X 3, pleasant, no acute distress, answers questions appropriately Exam: - - Head Head exam: Present: normal inspection - Eye Eye exam: Present: EOMI, normal appearance - Respiratory Respiratory exam: Present: CTAB. Absent: rales, respiratory distress, rhonchi, wheezes - Cardiovascular Cardiovascular exam: Present: RRR. Absent: diastolic murmur, systolic murmur - GI/Abdominal GI/Abdominal exam: Present: normal bowel sounds, soft, tenderness Additional comments: Large Left-sided abdominal wound, dark in color with erythema surrounding the wound edges. There is a discharge from the wound as well. Tenderness around wound with palpation - Extremities Exam Extremities exam: Present: warm, radial pulses palpable and symmetrical. Absent: calf tenderness, pedal edema, tenderness - Neurological Exam Neurological exam: Present: no focal deficits, strengths equal and symetr throughout. Absent: motor sensory deficit, facial droop, speech deficit - Skin Skin exam: Present: dry, warm Additional comments: As noted above, patient has a large left abdominal wound in the lower quadrant with erythema surrounding the edges. There is dark color within the wound and a purulent discharge. Internal Med - H&P Results - Labs CBC & Chem 7: 02/21/19 16:51 02/21/19 16:51 Labs: Short CBC 02/21/19 Range/Units 16:51 WBC 8.1 (4.3-11.1) K/mcL Hgb 7.6 L (11.5-15.4) g/dL Hct 23.6 L (35.3-44.9) % Plt Count 104 L (140-400) K/mcL Neutrophils # 5.7 (1.6-8.9) K/mcL BMP 02/21/19 16:51 Sodium 131 L Potassium 3.6 Chloride 96 L Carbon Dioxide 27 BUN 23 H Creatinine 3.54 H Glucose 67 L Calcium 7.7 L Liver Function 02/21/19 Range/Units 16:51 Total Bilirubin 1.0 (0.3-1.0) mg/dL Direct Bilirubin 0.4 H (0.0-0.2) mg/dL AST 10 L (13-39) Units/L ALT 5 L (7-52) Units/L Alkaline Phosphatase 134 H (34-104) Units/L Albumin 2.5 L (3.5-5.7) g/dL - Impressions ITS Impressions Abdomen/Pelvis CT 02/21/19 15:48 IMPRESSION: Moderate ascites and moderate severe anasarca challenging evaluation. No convincing evidence of acute inflammatory process or bowel obstruction. IUD within the region the uterus. This appears in a caudal location may be extending into the region of the cervix. Please correlate with exam findings. Left lower quadrant skin ulceration/skin defect. Please correlate with exam findings. No definite subcutaneous emphysema. Atrophic [place] kidneys and right lower quadrant transplant kidney. D/ / Sha Stevens / Sha Stevens Interpreting Provider: Sha Stevens - Assessment and Plan (1) Abdominal wall cellulitis Current Visit: Yes Status: Acute Assessment and plan: Patient has wound to the left lower quadrant of the abdomen. Wound culture and blood culture obtained and started on vancomycin and Zosyn. Follow-up wound cultures Follow-up blood culture Continue IV vancomycin and Zosyn Wound care consultation Monitor for worsening signs of infection (2) Acute on chronic anemia Current Visit: No Status: Acute Assessment and plan: Patient's hemoglobin 7.6 down from 9.1 previously. Review of patient's hemoglobin levels shows a wide fluctuation. She has required blood transfusions in the past, most recently on February 12. Type and screen Continue to monitor hemoglobin Transfuse if indicated (3) ESRD (end stage renal disease) on dialysis Current Visit: No Status: Acute Assessment and plan: Continue dialysis Nephrology consult (4) Hypoglycemia Current Visit: No Status: Acute Assessment and plan: Patient's blood sugar in the emergency department was 67, repeat on the medical floor was 58. Patient asymptomatic. Will provide hypoglycemic measures. Monitor sugars every 2 hours (5) Calciphylaxis Current Visit: No Status: Chronic Assessment and plan: Likely contributing factor in patient's abdominal wound. Wound care consult Treatment as above (6) Afib Current Visit: No Status: Chronic Assessment and plan: Not currently with RVR. Continue home meds Patient refuses cardiac cath technologist Qualifiers: Atrial fibrillation type: paroxysmal Qualified Code(s): I48.0 - Paroxysmal atrial fibrillation (7) DVT prophylaxis Current Visit: No Status: Acute Assessment and plan: Continue home Eliquis, patient does have history of anemia. Patient's hemoglobin is 7.6, down from 9.1 about 1 week ago. No obvious signs of bleeding however. - Time Spent With Patient Total time spent is greater than 50% in coordination of care (as documented) at patient's floor/unit and/or counseling patient: Greater than 35 minutes
[2019-02-21 22:56] LABS: Hematocrit 26.4 % (35.3-44.9); Hemoglobin 8.2 g/dL (11.5-15.4); Mean Corpuscular HGB Conc 31.1 g/dL (31.6-35.5); Mean Corpuscular Hemoglobin 32.3 pg (28.0-33.3); Mean Corpuscular Volume 103.9 fL (83.0-100.0); Mean Platelet Volume 11.4 fL (9.4-12.4); Platelet Count 121 K/mcL (140-400); Red Blood Count 2.54 M/mcL (3.82-4.97); Red Cell Distribution Width 19.7 % (11.5-14.5)
[2019-02-22] MEDS: *HR* OxyCODONE Immed Rel 5 MG TABLET PO PRN ×2 (05:32→16:45)
[2019-02-22 07:01] LABS: Hematocrit 24.9 % (35.3-44.9); Hemoglobin 7.7 g/dL (11.5-15.4); Mean Corpuscular HGB Conc 30.9 g/dL (31.6-35.5); Mean Corpuscular Hemoglobin 32.4 pg (28.0-33.3); Mean Corpuscular Volume 104.6 fL (83.0-100.0); Mean Platelet Volume 11.1 fL (9.4-12.4); Platelet Count 105 K/mcL (140-400); Red Blood Count 2.38 M/mcL (3.82-4.97); Red Cell Distribution Width 19.9 % (11.5-14.5); White Blood Count 8.2 K/mcL (4.3-11.1)
[2019-02-22 07:22] LABS: Albumin 2.5 g/dL (3.5-5.7); Albumin/Globulin Ratio 0.7 (1.1-2.2); Bilirubin,Total 0.8 mg/dL (0.3-1.0); Calcium 7.6 mg/dL (8.6-10.3); Globulin 3.7 g/dL (2.4-3.5); Magnesium 1.7 mg/dL (1.6-2.6); Phosphorous 3.8 mg/dL (2.7-4.5); Potassium 3.9 mEq/L (3.5-5.1); Total Protein 6.2 g/dL (6.4-8.9)
[2019-02-22] MEDS ORDERED: Piperacillin/Tazobactam 3.375 GM in 0.9 % Sodium Chloride Mini Bag 100 ML IVPB SCH (08:00)
[2019-02-22] MEDS ORDERED: Apixaban 5 MG TABLET PO SCH (09:00)
--- NOTE | 2019-02-22 09:26 | Infectious Disease Consult ---
Infectious Disease-Consult - Encounter Date/Time Date of Encounter: 02/22/19 - Data of Consult Patient: known to practice within the last 3 years Reason for consult: "abdominal wall cellulitis " Consult date: 02/22/19 Requesting Physician: Hanna Dsouza MD Primary Care Provider: DO Jn Hernandez HPI: Ms. Alexis is a 44-year-old female with a past medical history of end-stage renal disease on hemodialysis Monday//Monday, calciphylaxis, A. fib, cardiomyopathy, diabetes, GI bleed, hyperlipidemia, and hypertension. The patient was admitted to the hospital 02/21/19 for abdominal wall cellulitis. We are consulted 02/22/19 for further workup and treatment recommendations for abdominal wall cellulitis. Briefly, the patient is a 44-year-old female, well-known to infectious disease services were then consulted on her case multiple times in the past. The patient has a history of calciphylaxis and has had multiple wound infections in the past. Apparently, the patient's wound had completely healed until about 3 days ago when she developed an abdominal wound. Upon arrival to the ER, she was afebrile and hemodynamically stable. Her white blood cell count was normal. Serum creatinine was elevated consistent with her end-stage renal disease. Lactic acid and LFTs were within normal limits. CT of the abdomen and pelvis showed moderate ascites, severe anasarca, and a left lower quadrant skin ulcer/defect. Blood cultures were obtained 2 sets are pending. Wound culture was obtained and is pending. She was started empirically on IV antibiotics and admitted to the hospital for further evaluation. Since admission, the patient has remained afebrile and hemodynamically stable. A wound care consult has been placed and we are awaiting their recommendations. This morning, her random Vanco level was 16. Currently, she is on vancomycin and Zosyn. We have been asked to evaluate and make further recommendations. During my exam today, the patient states that she wore a pair sweatpants that was too tight and she thinks rubs open ulcer about 3 days prior to admission. She denies fevers, chills, rigors. Denies chest pain, shortness of breath, or cough. Denies nausea, vomiting, diarrhea, or constipation. Denies abdominal pain. She has an uric secondary to her end-stage renal disease. Denies oral t hrush. States the ulceration is to the left lower portion of her abdomen with foul-smelling drainage and very painful. She states her appetite is been okay. States her blood sugars up in well-controlled. The patient lives at home with her significant other and son. She does not work outside the home. She denies tobacco, alcohol, or illicit drug use. Denies chronic infectious diseases. Denies any recent travel. - ROS Review of Systems: All systems reviewed and no additional remarkable complaints except as stated. - Results CBC & Chem 7: 02/22/19 06:49 02/22/19 06:49 - Exam Vitals: Temp Pulse Resp BP Pulse Ox 99.9 F H 74 16 110/46 97 02/22/19 07:09 02/22/19 07:09 02/22/19 07:09 02/22/19 07:09 02/22/19 07:09 Exam: Head: Atraumatic, normal inspection, normocephalic. Eye: EOMI, PERRLA, no scleral icterus noted. ENT: Mucous membranes moist. No odontogenic infection noted. Neck: Normal inspection, no meningismus. Respiratory: Clear to auscultation. No rales, respiratory distress, rhonchi, or wheezes noted. Cardiovascular: Regular rate and irregular rhythm, S1 and S2 audible. No murmurs, rubs, or gallops. GI: Soft, obese, normal bowel sounds. Nontender. Extremities: No joint swelling, pedal edema, or tenderness noted. AV fistula noted to the left upper extremity positive/positive. Back: Normal inspection. No vertebral tenderness noted. Neurological: Alert, oriented 3, no focal deficits. Psychiatric: normal affect, normal mood. Skin: Dry, intact, warm. Normal color. No rashes. Ulceration noted to the left lower abdomen with surrounding erythema, warmth, tenderness. Foul odor noted. Small area of necrosis noted in the wound bed with about 75% slough noted. Cholecalciferol (Vitamin D3) [Vitamin D3] 50,000 units PO QWEEK 12/28/18 [History] Albuterol Sulfate [Proventil Inhaler] 2 puff PO Q4H PRN 01/31/19 [History] Apixaban [Eliquis] 5 mg PO BID 01/31/19 [History] Atorvastatin [Lipitor] 40 mg PO HS 01/31/19 [History] Folic Acid 1 mg PO DAILY 01/31/19 [History] Levothyroxine Sodium 100 mcg PO QAM 01/31/19 [History] Metoclopramide [Reglan] 5 mg PO 0800,1700 01/31/19 [History] Metoprolol Succinate [Toprol Xl] 25 mg PO DAILY 01/31/19 [History] cloNIDine HCl [CloNIDine HCl] 0.1 mg PO BID 02/12/19 [History] hydrALAZINE [HydrALAZINE] 50 mg PO BID 02/12/19 [History] Pantoprazole Sodium [Protonix] 40 mg PO QDPC #30 tablet. 02/14/19 [Rx] Allergy/AdvReac Type Severity Reaction Status Date / Time morphine Allergy See Verified 02/21/19 16:34 Comments Warfarin [From Coumadin] Allergy Anaphylaxis Verified 01/31/19 09:49 heparin AdvReac Severe Unresponsiv Verified 01/31/19 09:49 e - Assessment and Plan (1) Cellulitis Current Visit: No Status: Acute Location: Left lower abdomen. Causative organism: Unclear. Concern for recurrence of calciphylaxis. CT of the abdomen and pelvis shows a left lower quadrant skin ulcer/defect, but no abscess. Clinically, this does appear to have a cellulitic component. Wound cultures pending. No sepsis criteria. Blood cultures drawn on 02/21/19 are pending 2 sets. Currently on vancomycin and zosyn. Qualifiers: Site of cellulitis: trunk Site of cellulitis of trunk: abdominal wall Qualified Code(s): L03.311 - Cellulitis of abdominal wall SNOMED Code(s): 655745708 (2) Calciphylaxis Current Visit: No Status: Chronic Previously treated with sodium thiosulfate. Resolved, but concern for recurrence given the new ulcer to the abdomen. Nephrology consulted. Await recommendations. SNOMED Code(s): 333259121 (3) ESRD (end stage renal disease) Current Visit: No Status: Chronic Nephrology consulted. Await recommendations. SNOMED Code(s): 12879321 (4) Anemia in chronic kidney disease (CKD) Current Visit: No Status: Acute Qualifiers: Chronic kidney disease stage: unspecified stage Qualified Code(s): N18.9 - Chronic kidney disease, unspecified; D63.1 - Anemia in chronic kidney disease SNOMED Code(s): 241646444 (5) Afib Current Visit: No Status: Chronic Qualifiers: Atrial fibrillation type: paroxysmal Qualified Code(s): I48.0 - Paroxysmal atrial fibrillation SNOMED Code(s): 46001306 (6) History of kidney transplant Current Visit: No Status: Chronic Failed renal transplant in 2007. Not on immunosuppressants at this point. SNOMED Code(s): 832490348, 291889838 - Recommendations Recommendations: Await blood cultures to finalize. Await wound cultures to finalize. Wound care consult. Await recommendations from nephrology. Continue Vancomycin IV. Pharmacy to dose. Goal trough ~15. Continue Zosyn 3.375 grams IV Q12H. Duration of treatment depends on the clinical picture. Dose-adjust antibiotics for HD status. Past Med Surg Social Fam HX - Past Medical History Attestation: Yes The following information was validated with the patient. Source: patient, old records reviewed, nursing notes reviewed Medical history: asthma, atrial fibrillation, cardiomyopathy, diabetes, dialysis, GI bleed, hyperlipidemia, hypertension, renal disease, thyroid disease Additional medical history: T dialysis Psychiatric history: no psych history - Past Surgical History Surgical History: appendectomy, cholecystectomy, thyroidectomy, transplant, other Additional surgical history: KIDNEY TRANSPLANT 2007, TUBAL LIGATION, left antecubital AV fistula, multiple surgical and endovascular interventions for the left antecubital AV fistula, and placement of a left upper arm AV shunt - Social History Smoking Status: Never smoker Smokeless Tobacco Status: No Alcohol use: none Drug use: none Occupational status: disabled Current living situation: Home, With Family Activity Level: Independent ambulation Recent Out of Country Travel Within the Last 8 Weeks: No Exposure or Possible Exposure to Illness During Travel: No - Family History Father Adopted: No Family Member Ethnicity: Non- Living Status: Hx Family Cardiac Disorders: Yes Hx Family Respiratory Disorders: Yes Hx Family Cancer: Yes Hx Family GI Disorders: No Hx Family Endocrine Disorder: Yes Hx Family Neuromuscular Disorders: No Hx Family Neurologic Disorders: No Hx Family HEENT Disorders: No Hx Family Autoimmune Disorders: No Mother Adopted: No Living Status: Hx Family Cardiac Disorders: Yes Hx Family Respiratory Disorders: No Hx Family Cancer: Yes Hx Family GI Disorders: No Hx Family Endocrine Disorder: No Hx Family Neuromuscular Disorders: No Hx Family Neurologic Disorders: No Hx Family HEENT Disorders: No Hx Family Autoimmune Disorders: No Consult Discharge Plan - Plan Referrals: Peter Vicente DO [Primary Care Provider] -
[2019-02-22 09:33] LABS: INR 2.3; Prothrombin Time 25.7 Seconds (9.4-12.1)
[2019-02-22 09:35] LABS: Activated Partial Thrombo Time 37.3 Seconds (26.0-36.0)
[2019-02-22] MEDS: Metoprolol XL (24 HR) Succ 25 MG TAB.ER.24H PO SCH (11:08)
[2019-02-22] MEDS: *HR* HYDROcodone/Acet 5/325 mg TABLET PO PRN (11:09)
--- NOTE | 2019-02-22 13:03 | Internal Med Progress Note ---
Hospitalist Progress Note - Encounter Date of Encounter: 02/22/19 Time of Encounter: 09:00 - Subjective Interval History: Patient was seen and examined at bedside. Reports that she was wearing tight sweatpants developed a wound in the lower left quadrant. Was receiving dialysis yesterday and was inquired about the wound however she reported that she will follow-up at that [facility] postdialysis. She presented the wound has been there for 3 days and is progressively worsening and has foul-smelling discharge. Denies any fever, chills, nausea, vomiting or diarrhea. Could not tolerate the pain and discomfort so that is why she decided to come to the emergency department yesterday after dialysis. Tolerating by mouth diet. Denies any chest pain, abnormal bleeding, blood in her stools, hemoptysis or hematemesis. - Exam Vitals: Temp Pulse Resp BP Pulse Ox 98.6 F 76 17 118/45 95 02/22/19 10:47 02/22/19 10:47 02/22/19 10:47 02/22/19 10:47 02/22/19 10:47 Exam: General: Patient is alert, oriented, no acute distress, obese, appears much older than her age Head: atraumatic, normocephalic, Eye: normal appearance, PERRL, no scleral icterus, no conjunctival injection ENT: mucous membranes moist, normal external ear exam Neck: normal inspection, trachea midline, full ROM, no carotid bruits Chest: normal inspection, symmetric chest rise Respiratory: Good respiratory effort. Bilateral breath sounds are clear without wheezing, crackles, or rhonchi. Cardiovascular: Regular rate and rhythm. s1 and s2 No clicks, rubs, gallops, or murmors. Abdomen: Bowel sounds present normoactive x-4 quadrants. abdomen is obese, could not appreciate fluid shift has a 5x5 cm open wount that has black discoloration ad weaping white material that is covered, has hard induration extending to flank area with dark discoloration. Foul odor noted. musculoskeletal: Spontaneously moving all extremities. no edema, no calf tenderness Skin: warm, dry, intact.AV fistula noted to the left upper extremity. generalized anasarca Neuro: Alert and oriented x4. no focal deficit Psych: Patient's affect is normal - Assessment and Plan (1) Abdominal wall cellulitis Current Visit: Yes Status: Acute Assessment and Plan: Patient has wound 5x5 cm with cellulitis of left lower quadrant of the abdomen. on vancomycin and Zosyn. ID consulted surgery consulted wound care consulted wound cultures in process blood culture in process (2) Acute on chronic anemia Current Visit: No Status: Acute Assessment and Plan: Patient's hemoglobin 7.6 down from 9.1 previously. Review of patient's hemoglobin levels shows a wide fluctuation. She has required blood transfusions in the past, most recently on February 12. Type and screen Continue to monitor hemoglobin transfuse as per protocol will follow nephrology recs on this ( possible transfusion during dialysis) (3) Ascites Current Visit: Yes Status: Acute Assessment and Plan: unknown etiology she has anasarca and hypoalbuminemia. liver contour is WNL on CT as per radiologist bilirubin WNL, AST 9, ALT 4. will send hepatitis panel tylenol level IR consulted for paracentesis. CT A/p Otherwise noncontrast appearance of the liver, spleen, adrenal glands and pancreas unremarkable. (4) Calciphylaxis Current Visit: No Status: Chronic Assessment and Plan: history of calciphylaxis multiple sites. This is secondary to ESRD. previously treated with sodium thiosulfate treatment at the last hour of each dialysis for treatment of calciphylaxis nephro consulted wound care is also consulted (5) Afib Current Visit: No Status: Chronic Assessment and Plan: Not currently with RVR. Continue home meds Patient refuses panel monitor (6) Hypoglycemia Current Visit: No Status: Resolved Assessment and Plan: Patient's blood sugar in the emergency department was 67, repeat on the medical floor was 58 earlier on admission- resolved Will provide hypoglycemic measures. Monitor sugars every 2 hours (7) ESRD (end stage renal disease) on dialysis Current Visit: No Status: Acute Assessment and Plan: Continue dialysis Nephrology consulted (8) DVT prophylaxis Current Visit: No Status: Acute Assessment and Plan: Continue home Eliquis, patient does have history of anemia. Patient's hemoglobin is 7.6, down from 9.1 about 1 week ago. No obvious signs of bleeding however. - Time Spent with Patient Total time spent is greater than 50% in coordination of care (as documented) at patient's floor/unit and/or counseling patient: 25 - 35 minutes Plan of Care Discussed with: patient Internal Medicine: Result - Labs CBC & Chem 7: 02/22/19 06:49 02/22/19 06:49 Labs: Short CBC 02/21/19 02/21/19 02/22/19 Range/Units 16:51 22:37 06:49 WBC 8.1 9.0 8.2 (4.3-11.1) K/mcL Hgb 7.6 L 8.2 L 7.7 L (11.5-15.4) g/dL Hct 23.6 L 26.4 L 24.9 L (35.3-44.9) % Plt Count 104 L 121 L 105 L (140-400) K/mcL Neutrophils # 5.7 (1.6-8.9) K/mcL BMP 02/21/19 02/22/19 16:51 06:49 Sodium 131 L 132 L Potassium 3.6 3.9 Chloride 96 L 95 L Carbon Dioxide 27 23 BUN 23 H 27 H Creatinine 3.54 H 4.12 H Glucose 67 L 86 Calcium 7.7 L 7.6 L Liver Function 02/21/19 02/22/19 Range/Units 16:51 06:49 Total Bilirubin 1.0 0.8 (0.3-1.0) mg/dL Direct Bilirubin 0.4 H (0.0-0.2) mg/dL AST 10 L 9 L (13-39) Units/L ALT 5 L 4 L (7-52) Units/L Alkaline Phosphatase 134 H 141 H (34-104) Units/L Albumin 2.5 L 2.5 L (3.5-5.7) g/dL - ABG Interpretation ABG results: PT/INR, D-dimer PT 25.7 Seconds (9.4-12.1) H 02/22/19 08:04 - Impressions Impressions Abdomen/Pelvis CT 02/21/19 15:48 IMPRESSION: Moderate ascites and moderate severe anasarca challenging evaluation. No convincing evidence of acute inflammatory process or bowel obstruction. IUD within the region the uterus. This appears in a caudal location may be extending into the region of the cervix. Please correlate with exam findings. Left lower quadrant skin ulceration/skin defect. Please correlate with exam findings. No definite subcutaneous emphysema. 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 D/ / Sha Stevens / Sha Stevens Interpreting Provider: Sha Stevens Consult Discharge Plan - Plan Referrals: Peter Vicente DO [Primary Care Provider] - (3) Ascites Qualifiers: Ascites type: other type Qualified Code(s): R18.8 - Other ascites (5) Afib Qualifiers: Atrial fibrillation type: paroxysmal Qualified Code(s): I48.0 - Paroxysmal atrial fibrillation
--- NOTE | 2019-02-22 13:33 | Nephrology Consult Note ---
Date of Encounter: 02/22/19 Time of Encounter: 10:00 Assessment and Plan (1) ESRD (end stage renal disease) on dialysis Current Visit: No Status: Chronic ESRD on HD every Monday//Monday: She has known noncompliance, and skipped most of her treatment yesterday, though she did attend approximately 36 minutes of dialysis according to her chart review. Biochemically she is not hyperkalemic, acidotic nor fluid overloaded (she is not even requiring nasal cannula oxygen) and her bedbound/obesity should not be confused with anasarca. I recommend her next dialysis for tomorrow (Monday). I counseled her on the importance of improving compliance with dialysis. She told me the main reason she came to the hospital was for her pain from the wound. Thank you for consulting the [facility] group, and I will follow with you on this complex patient who required a high degree of medical decision- making and evaluation and management. (2) Abdominal wall cellulitis Current Visit: Yes Status: Acute As per primary. This wound appears to be in the crease of her abdominal folds, and may or may not be classic calciphylaxis. She has previously been diagnosed with it and received sodium thiosulfate (3) Hypertension Current Visit: No Status: Chronic Continue antihypertensive medications, and as per her norm, hold antihypertensive medications on the morning of dialysis this will help avoid the risk of intradialytic hypotension. Qualifiers: Hypertension type: essential hypertension Qualified Code(s): I10 - Essential (primary) hypertension (4) Noncompliance with renal dialysis Current Visit: No Status: Chronic She has known noncompliance with completing and/or stay on for a full dialysis treatment. I counseled her to improve compliance and described the importance of never missing or skipping a full treatment. (5) Weakness generalized Current Visit: No Status: Chronic She is generalized weakness, obesity, and appears to be bedbound. This should not be confused with anasarca or severe edema. History of Present Illness - Reason for Consult Consult date: 02/22/19 end stage renal disease Requesting physician: Wyatt Villarreal - Chief Complaint ESRD - History of Present Illness The patient is a 44-year-old female with a past medical history of end-stage renal disease on hemodialysis every Monday//Monday, history of calciphylaxis, history of recurrent hospitalizations, history of obesity, chronic wounds and et al who presented overnight. Nephrology was consulted because she is an ESRD patient. She last underwent dialysis yesterday (). I reviewed the [facility] at to assess her medical records, and she underwent approximately 36 minutes of dialysis yesterday, and refused to continue more according to the notes. She says that her wounds hurt too much to finish dialysis yesterday. She reported that this is the main reason she came to the hospital. She did not affirm active shortness of breath, or any chest pain, and she reported eating well without N/V/D. She affirmed that she does not feel the need to even wear oxygen per nasal cannula. She reported that she has been gaining weight, and does not feel that her swelling is significantly worse than previous. She affirmed having lower extremity wounds, and receives wound care periodically. She did not affirm taking [id number] NSAIDs. She stated that she does not make much if any urine. Historically, she formally was on peritoneal dialysis and developed calciphylaxis when she was under the care of the other nephrology group, and then upon meeting Dr. Wei last year, the patient decided to switch to the [facility] group. She received sodium thiosulfate therapy for calciphylaxis for many months and was slowly weaned off. She now undergoes hemodialysis every Monday//Monday via a left upper extremity AV fistula. She has known and recurrent noncompliance with dialysis therapy. Past Med Surg Social Fam HX - Past Medical History Medical history: asthma, atrial fibrillation, cardiomyopathy, diabetes, dialysis, GI bleed, hyperlipidemia, hypertension, renal disease, thyroid disease Additional medical history: dialysis Psychiatric history: no psych history - Past Surgical History Surgical History: appendectomy, cholecystectomy, thyroidectomy, transplant, other Additional surgical history: KIDNEY TRANSPLANT 2007, TUBAL LIGATION, left antecubital AV fistula, multiple surgical and endovascular interventions for the left antecubital AV fistula, and placement of a left upper arm AV shunt - Social History Smoking Status: Never smoker Smokeless Tobacco Status: No Alcohol use: none Drug use: none - Family History Father Adopted: No Family Member Ethnicity: Non- Living Status: Hx Family Cardiac Disorders: Yes Hx Family Respiratory Disorders: Yes Hx Family Cancer: Yes Hx Family GI Disorders: No Hx Family Endocrine Disorder: Yes Hx Family Neuromuscular Disorders: No Hx Family Neurologic Disorders: No Hx Family HEENT Disorders: No Hx Family Autoimmune Disorders: No Mother Adopted: No Living Status: Hx Family Cardiac Disorders: Yes Hx Family Respiratory Disorders: No Hx Family Cancer: Yes Hx Family GI Disorders: No Hx Family Endocrine Disorder: No Hx Family Neuromuscular Disorders: No Hx Family Neurologic Disorders: No Hx Family HEENT Disorders: No Hx Family Autoimmune Disorders: No Medications and Allergies Cholecalciferol (Vitamin D3) [Vitamin D3] 50,000 units PO QWEEK 12/28/18 [Histor y] Albuterol Sulfate [Proventil Inhaler] 2 puff PO Q4H PRN 01/31/19 [History] Apixaban [Eliquis] 5 mg PO BID 01/31/19 [History] Atorvastatin [Lipitor] 40 mg PO HS 01/31/19 [History] Folic Acid 1 mg PO DAILY 01/31/19 [History] Levothyroxine Sodium 100 mcg PO QAM 01/31/19 [History] Metoclopramide [Reglan] 5 mg PO 0800,1700 01/31/19 [History] Metoprolol Succinate [Toprol Xl] 25 mg PO DAILY 01/31/19 [History] cloNIDine HCl [CloNIDine HCl] 0.1 mg PO BID 02/12/19 [History] hydrALAZINE [HydrALAZINE] 50 mg PO BID 02/12/19 [History] Pantoprazole Sodium [Protonix] 40 mg PO QDPC #30 tablet. 02/14/19 [Rx] Allergy/AdvReac Type Severity Reaction Status Date / Time morphine Allergy See Verified 02/21/19 16:34 Comments Warfarin [From Coumadin] Allergy Anaphylaxis Verified 01/31/19 09:49 heparin AdvReac Severe Unresponsiv Verified 01/31/19 09:49 e Review of Systems All Systems: reviewed and no additional remarkable complaints except as stated Exam - Vital Signs Vital signs: Initial Vital Signs Temp Pulse Resp BP Pulse Ox 97.8 F 67 16 139/60 100 02/21/19 15:18 02/21/19 15:18 02/21/19 15:18 02/21/19 15:18 02/21/19 15:18 Vital Signs - Last 8 Hours Temp Pulse Resp BP Pulse Ox 02/22/19 10:47 98.6 F 76 17 118/45 95 02/22/19 07:09 99.9 F H 74 16 110/46 97 02/22/19 06:03 98.3 F 72 14 143/101 99 Intake and Output 02/21/19 02/22/19 02/22/19 23:59 07:59 15:59 Intake Total 100 / 100 120 / 120 Output Total 0 / 0 0 / 0 Balance 100 / 100 0 / 120 120 / 120 Intake: IV Fluids 100 / 100 Zosyn 3.375 GM In 0.9 % Sodium 100 / 100 Chloride (Mini-Bag +) 100 ML @ 25 mls/hr IVP ONCE ONE Rx#: [id number] Oral 120 / 120 Output: Urine 0 / 0 0 / 0 Other: Meal Breakfast Percent of Meal Consumed 0% Weight 76.5 kg Blood Glucose* 92 104 76 - General Appearance General appearance: well-developed, obese, chronically ill, fatigue, frail EENT: ATNC, PERRL, mucous membranes moist Neck: no JVD, supple Respiratory: clear Cardiology: edema (trace to 1+ LE edema), regular rate, regular rhythm, normal S1, normal S2 - Dialysis Access Dialysis Vascular Access: Arteriovenous Fistula (LUE AVF) thrill: Yes bruit: Yes Gastrointestinal: normoactive bowel sounds, no tenderness, no guarding Integumentary: rash (LLQ wound with exudates), warm and dry Neurologic: no focal deficit, no asterixis, alert and oriented x3 Musculoskeletal: deformities, no cyanosis Psychiatric: mood/affect appropriate, cooperative Results - Lab Results 02/22/19 06:49 02/22/19 06:49 Most recent lab results 02/22/19 06:49 Calcium 7.6 L Phosphorus 3.8 Magnesium 1.7 Consult Discharge Plan - Plan Referrals: Peter Vicente DO [Primary Care Provider] -
--- NOTE | 2019-02-22 13:50 | AcuteCare Surgery Consult Note ---
Date of Encounter: 02/22/19 Time of Encounter: 13:50 Assessment and Plan (1) Calciphylaxis Current Visit: Yes Status: Chronic LLQ abdomen is with an area aprox grapefruit size of cellulitis with 2 almost centralized areas of necrosis measuring approximately 3 to 4 cm each. There is noted drainage present at this time. This appears to be consistent with her previous calcification manifestations. We will use Santyl and sent for chemical debridement at this time. Cultures pending. No surgical intervention as indicated at this time. Patient should follow-up in wound care as an outpatient. Surgery will sign off at this time. Wash abdomen with antibacterial soap. Pat dry. Apply gentamicin ointment to the left lower quadrant open areas. Apply sanytl (to the same areas) nickel thick. Cover with saline moisten gauze. Cover with ABD's. Tape to secure. History of Present Illness Consult date: 02/22/19 (Dr. viktoriya De Anda) Reason for consult: wound care Requesting physician: Hanna Dsouza History of present illness: Pt is well known to surgery service. Admitted from home on 02/21/2019 for an abdominal wound. Patient notably has a history of calcified waxes, end-stage renal disease on dialysis (previously nonadherent with either course), she was previously recommended hospice/palliative care and/or transfer to [facility] but she refused. She reports the area on her abdomen started approximately "3 days ago." She was scheduled to see Dr. Nagel in wound care on 02/27/2019 but she did not want to wait that long. When asked to previously cared for patients chronic abdominal wounds she states that her boyfriend provided care at home for these wounds. He denies chest pain, shortness of breath, nausea, vomiting, fever, or chills. She states she typically has dialysis on Tuesdays, , and Saturdays. She did not complete her dialysis yesterday. She did have a CAT scan in the emergency department which showed a nonscpecific left lower abdomen skin ulceration, no gas. Surgery has been consulted for recommendations regarding left lower quadrant wound care Past Med Surg Social Fam HX - Past Medical History Source: patient, old records reviewed Medical history: asthma, atrial fibrillation, cardiomyopathy, diabetes, dialysis, GI bleed, hyperlipidemia, hypertension, renal disease, thyroid disease Additional medical history: T TH S dialysis Psychiatric history: no psych history - Past Surgical History Surgical History: appendectomy, cholecystectomy, thyroidectomy, transplant, other Additional surgical history: KIDNEY TRANSPLANT 2007, TUBAL LIGATION, left antecubital AV fistula, multiple surgical and endovascular interventions for the left antecubital AV fistula, and placement of a left upper arm AV shunt - Social History Smoking Status: Never smoker Smokeless Tobacco Status: No Alcohol use: none Drug use: none - Family History Father Adopted: No Family Member Ethnicity: Non- Living Status: Hx Family Cardiac Disorders: Yes Hx Family Respiratory Disorders: Yes Hx Family Cancer: Yes Hx Family GI Disorders: No Hx Family Endocrine Disorder: Yes Hx Family Neuromuscular Disorders: No Hx Family Neurologic Disorders: No Hx Family HEENT Disorders: No Hx Family Autoimmune Disorders: No Mother Adopted: No Living Status: Hx Family Cardiac Disorders: Yes Hx Family Respiratory Disorders: No Hx Family Cancer: Yes Hx Family GI Disorders: No Hx Family Endocrine Disorder: No Hx Family Neuromuscular Disorders: No Hx Family Neurologic Disorders: No Hx Family HEENT Disorders: No Hx Family Autoimmune Disorders: No Medications and Allergies Cholecalciferol (Vitamin D3) [Vitamin D3] 50,000 units PO QWEEK 12/28/18 [History] Albuterol Sulfate [Proventil Inhaler] 2 puff PO Q4H PRN 01/31/19 [History] Apixaban [Eliquis] 5 mg PO BID 01/31/19 [History] Atorvastatin [Lipitor] 40 mg PO HS 01/31/19 [History] Folic Acid 1 mg PO DAILY 01/31/19 [History] Levothyroxine Sodium 100 mcg PO QAM 01/31/19 [History] Metoclopramide [Reglan] 5 mg PO 0800,1700 01/31/19 [History] Metoprolol Succinate [Toprol Xl] 25 mg PO DAILY 01/31/19 [History] cloNIDine HCl [CloNIDine HCl] 0.1 mg PO BID 02/12/19 [History] hydrALAZINE [HydrALAZINE] 50 mg PO BID 02/12/19 [History] Pantoprazole Sodium [Protonix] 40 mg PO QDPC #30 tablet. 02/14/19 [Rx] Allergy/AdvReac Type Severity Reaction Status Date / Time morphine Allergy See Verified 02/21/19 16:34 Comments Warfarin [From Coumadin] Allergy Anaphylaxis Verified 01/31/19 09:49 heparin AdvReac Severe Unresponsiv Verified 01/31/19 09:49 e Review of Systems All systems PM: reviewed and no additional remarkable complaints except as stated All systems PM: The remainder of the systems were reviewed and are negative General Surgery Exam Initial Vital Signs Temp Pulse Resp BP Pulse Ox 97.8 F 67 16 139/60 100 02/21/19 15:18 02/21/19 15:18 02/21/19 15:18 02/21/19 15:18 02/21/19 15:18 - General physical appearance chronically ill - Abdomen Abdomen general surgery: Present: bowel sounds present, soft, tender Abdominal Tenderness: Present: LLQ - Integumentary Integumentary general surgery: Present: other (See A/P) - Psychiatric Psychiatric general surgery: Present: A&Ox3 Exam Initial Vital Signs Temp Pulse Resp BP Pulse Ox 97.8 F 67 16 139/60 100 02/21/19 15:18 02/21/19 15:18 02/21/19 15:18 02/21/19 15:18 02/21/19 15:18 Results - Labs 02/22/19 06:49 02/22/19 06:49 Abnormal lab results RBC 2.38 M/mcL (3.82-4.97) L 02/22/19 06:49 Hgb 7.7 g/dL (11.5-15.4) L 02/22/19 06:49 Hct 24.9 % (35.3-44.9) L 02/22/19 06:49 MCV 104.6 fL (83.0-100.0) H 02/22/19 06:49 MCHC 30.9 g/dL (31.6-35.5) L 02/22/19 06:49 RDW 19.9 % (11.5-14.5) H 02/22/19 06:49 Plt Count 105 K/mcL (140-400) L 02/22/19 06:49 Platelet Estimate Slight Decrease (Normal) L 02/21/19 16:51 Immature Plt Fraction 7.2 % (1.1-6.1) H 02/21/19 16:51 PT 25.7 Seconds (9.4-12.1) H 02/22/19 08:04 APTT 37.3 Seconds (26.0-36.0) H 02/22/19 08:04 Sodium 132 mEq/L (136-145) L 02/22/19 06:49 Chloride 95 mEq/L (98-107) L 02/22/19 06:49 BUN 27 mg/dL (6-20) H 02/22/19 06:49 Creatinine 4.12 mg/dL (0.60-1.20) H 02/22/19 06:49 Est GFR ( Amer) 14 (> 60) L 02/22/19 06:49 Est GFR (Non-Af Amer) 12 (> 60) L 02/22/19 06:49 Glucose 67 mg/dL (70-105) L 02/21/19 16:51 POC Glucose 58 mg/dL (70-99) L 02/21/19 21:30 Calculated Osmolality 278 (280-300) L 02/22/19 06:49 Calcium 7.6 mg/dL (8.6-10.3) L 02/22/19 06:49 Direct Bilirubin 0.4 mg/dL (0.0-0.2) H 02/21/19 16:51 AST 9 Units/L (13-39) L 02/22/19 06:49 ALT 4 Units/L (7-52) L 02/22/19 06:49 Alkaline Phosphatase 141 Units/L (34-104) H 02/22/19 06:49 Serum Total Protein 6.2 g/dL (6.4-8.9) L 02/22/19 06:49 Albumin 2.5 g/dL (3.5-5.7) L 02/22/19 06:49 Globulin 3.7 g/dL (2.4-3.5) H 02/22/19 06:49 Albumin/Globulin Ratio 0.7 (1.1-2.2) L 02/22/19 06:49 Diabetes panel 02/21/19 02/22/19 Range/Units 16:51 06:49 Sodium 131 L 132 L (136-145) mEq/L Potassium 3.6 3.9 (3.5-5.1) mEq/L Chloride 96 L 95 L (98-107) mEq/L Carbon Dioxide 27 23 (23-29) mEq/L BUN 23 H 27 H (6-20) mg/dL Creatinine 3.54 H 4.12 H (0.60-1.20) mg/dL Glucose 67 L 86 (70-105) mg/dL Calcium 7.7 L 7.6 L (8.6-10.3) mg/dL AST 10 L 9 L (13-39) Units/L ALT 5 L 4 L (7-52) Units/L Alkaline Phosphatase 134 H 141 H (34-104) Units/L Albumin 2.5 L 2.5 L (3.5-5.7) g/dL Calcium panel 02/21/19 02/22/19 Range/Units 16:51 06:49 Calcium 7.7 L 7.6 L (8.6-10.3) mg/dL Phosphorus 3.8 (2.7-4.5) mg/dL Albumin 2.5 L 2.5 L (3.5-5.7) g/dL Pituitary panel 02/21/19 02/22/19 Range/Units 16:51 06:49 Sodium 131 L 132 L (136-145) mEq/L Potassium 3.6 3.9 (3.5-5.1) mEq/L Chloride 96 L 95 L (98-107) mEq/L Carbon Dioxide 27 23 (23-29) mEq/L BUN 23 H 27 H (6-20) mg/dL Creatinine 3.54 H 4.12 H (0.60-1.20) mg/dL Glucose 67 L 86 (70-105) mg/dL Calcium 7.7 L 7.6 L (8.6-10.3) mg/dL Adrenal panel 02/21/19 02/22/19 Range/Units 16:51 06:49 Sodium 131 L 132 L (136-145) mEq/L Potassium 3.6 3.9 (3.5-5.1) mEq/L Chloride 96 L 95 L (98-107) mEq/L Carbon Dioxide 27 23 (23-29) mEq/L BUN 23 H 27 H (6-20) mg/dL Creatinine 3.54 H 4.12 H (0.60-1.20) mg/dL Glucose 67 L 86 (70-105) mg/dL Calcium 7.7 L 7.6 L (8.6-10.3) mg/dL Total Bilirubin 1.0 0.8 (0.3-1.0) mg/dL AST 10 L 9 L (13-39) Units/L ALT 5 L 4 L (7-52) Units/L Alkaline Phosphatase 134 H 141 H (34-104) Units/L Albumin 2.5 L 2.5 L (3.5-5.7) g/dL All other labs normal. - Imaging CT scan - abdomen: report reviewed CT scan - pelvis: report reviewed Consult Discharge Plan - Plan Referrals: Peter Vicente DO [Primary Care Provider] -
[2019-02-22] MEDS: Piperacillin/Tazobactam 3.375 GM in 0.9 % Sodium Chloride Mini Bag 100 ML IVPB SCH (16:57)
[2019-02-22] MEDS: Gentamicin Oint 15 GM TUBE TP SCH (16:58)
[2019-02-22] MEDS: Apixaban 2.5 MG TABLET PO SCH (21:29)
[2019-02-23] MEDS: Dextrose Gel 15 GM/37.5 ML TUBE PO PRN (04:58)
[2019-02-23 05:35] LABS: Hematocrit 23.4 % (35.3-44.9); Hemoglobin 7.5 g/dL (11.5-15.4); Mean Corpuscular HGB Conc 32.1 g/dL (31.6-35.5); Mean Corpuscular Volume 103.1 fL (83.0-100.0); Mean Platelet Volume 10.6 fL (9.4-12.4); Platelet Count 111 K/mcL (140-400); Red Blood Count 2.27 M/mcL (3.82-4.97); Red Cell Distribution Width 19.8 % (11.5-14.5)
[2019-02-23 05:51] LABS: Acetaminophen < 10 mcg/mL (10-20); BUN/Creatinine Ratio 7 (6-26); Blood Urea Nitrogen 32 mg/dL (6-20); Calcium 7.2 mg/dL (8.6-10.3); Carbon Dioxide 26 mEq/L (23-29); Chloride 97 mEq/L (98-107); Glucose 52 mg/dL (70-105); Osmolality,Calculated 276 (280-300); Phosphorous 3.8 mg/dL (2.7-4.5); Potassium 4.4 mEq/L (3.5-5.1); Sodium 131 mEq/L (136-145); eGFR For African Americans 12 (> 60); eGFR For Non-African Americans 10 (> 60)
[2019-02-23] MEDS: Piperacillin/Tazobactam 3.375 GM in 0.9 % Sodium Chloride Mini Bag 100 ML IVPB SCH ×2 (06:17→18:44)
[2019-02-23 06:23] LABS: Ferritin 882 ng/mL (10-120); Iron 14 mcg/dL (50-170); Transferrin < 75 mg/dL (203-362)
[2019-02-23 06:30] LABS: Hepatitis B Surface Antibody 6.76 mIU/mL
[2019-02-23] MEDS: *HR* HYDROcodone/Acet 5/325 mg TABLET PO PRN ×2 (06:51→12:50)
[2019-02-23 07:10] LABS: Hepatitis A Antibody IgM Nonreactive (Nonreactive); Hepatitis B Core IgM Nonreactive (Nonreactive); Hepatitis C Virus Antibody Nonreactive (Nonreactive)
[2019-02-23] MEDS: Acetaminophen 325 MG TABLET PO PRN (07:18)
[2019-02-23] MEDS ORDERED: 0.9 % Sodium Chloride 250 ML IVC PRN (07:59)
[2019-02-23] MEDS ORDERED: 0.9 % Sodium Chloride 1,000 ML PRIME SCH (08:00)
[2019-02-23] MEDS: Apixaban 2.5 MG TABLET PO SCH ×2 (09:12→21:21)
[2019-02-23] MEDS: Metoprolol XL (24 HR) Succ 25 MG TAB.ER.24H PO SCH (09:17)
[2019-02-23 09:32] LABS: Hepatitis B Surface Antigen Reactive (Nonreactive)
--- NOTE | 2019-02-23 11:09 | Internal Med Progress Note ---
Hospitalist Progress Note - Encounter Date of Encounter: 02/23/19 Time of Encounter: 08:00 - Subjective Interval History: Patient was seen and examined at bedside. Has no complaints. Denies nausea, vomiting or diarrhea. Continues to have generalized weakness. I discussed that this was discussed with lead simulation modeling engineer who will start her on Epogen along with IV iron. Pain is currently controlled. She tolerating by mouth diet. Denies any chest pain, shortness of breath or palpitations. Has had no abnormal bleeding, denies any melena, hematochezia or hematemesis. - Exam Vitals: Temp Pulse Resp BP Pulse Ox 101.7 F H 90 16 107/74 94 02/23/19 07:02 02/23/19 07:02 02/23/19 07:02 02/23/19 07:02 02/23/19 07:02 Exam: General: Patient is alert, oriented, no acute distress, obese, appears much older than her age Head: atraumatic, normocephalic, Eye: normal appearance, PERRL, no scleral icterus, no conjunctival injection ENT: mucous membranes moist, normal external ear exam Neck: normal inspection, trachea midline, full ROM, no carotid bruits Chest: normal inspection, symmetric chest rise Respiratory: Good respiratory effort. Bilateral breath sounds are clear without wheezing, crackles, or rhonchi. Cardiovascular: Regular rate and rhythm. s1 and s2 No clicks, rubs, gallops, or murmors. Abdomen: Bowel sounds present normoactive x-4 quadrants. abdomen is obese, could not appreciate fluid shift has a 5x5 cm open wount that has black discoloration ad weaping white material that is covered, has hard induration extending to flank area with dark discoloration. Foul odor noted. musculoskeletal: Spontaneously moving all extremities. no edema, no calf tenderness Skin: warm, dry, intact.AV fistula noted to the left upper extremity. generalized anasarca Neuro: Alert and oriented x4. no focal deficit Psych: Patient's affect is normal - Assessment and Plan (1) Abdominal wall cellulitis Current Visit: Yes Status: Acute Assessment and Plan: Patient has wound 5x5 cm with cellulitis of left lower quadrant of the abdomen. on vancomycin and Zosyn. ID on board surgery consulted adn recommended no surgical intervention, " Wash abdomen with antibacterial soap. Pat dry. Apply gentamicin ointment to the left lower quadrant open areas. Apply sanytl (to the same areas) nickel thick. Cover with saline moisten gauze. Cover with ABD's. Tape to secure. " wound care consulted wound cultures with gram negative Deric blood culture in process (2) Acute on chronic anemia Current Visit: No Status: Acute Assessment and Plan: Patient's hemoglobin 7.6 down from 9.1 previously. Review of patient's hemoglobin levels shows a wide fluctuation. She has required blood transfusions in the past, most recently on February 12. Type and screen on file Continue to monitor hemoglobin transfuse as per protocol Discussed with Dr. Stewart who recommended EPO on IV iron while on dialysis. (3) Ascites Current Visit: Yes Status: Acute Assessment and Plan: unknown etiology she has anasarca and hypoalbuminemia. liver contour is WNL on CT as per radiologist bilirubin WNL, AST 9, ALT 4. hepatitis panel , b surface antigen is reactive, will consult GI. tylenol level negative IR consulted for paracentesis- was not performed due to elevated INR on 02/22 will again discuss the case with IR- and possibly hold Eliquis on 02/24. CT A/p Otherwise noncontrast appearance of the liver, spleen, adrenal glands and pancreas unremarkable. (4) Calciphylaxis Current Visit: Yes Status: Chronic Assessment and Plan: history of calciphylaxis multiple sites. This is secondary to ESRD. previously treated with sodium thiosulfate treatment at the last hour of each dialysis for treatment of calciphylaxis nephro on board wound care is also consulted (5) Afib Current Visit: No Status: Chronic Assessment and Plan: rate controlled eliquis dose was adjusted to ESRD dose Continue home meds Patient refuses spout positioner (6) ESRD (end stage renal disease) on dialysis Current Visit: No Status: Chronic Assessment and Plan: Continue dialysis Nephrology on board (7) DVT prophylaxis Current Visit: No Status: Acute Assessment and Plan: on eliquis (8) Hypoglycemia Current Visit: No Status: Resolved Assessment and Plan: Patient's blood sugar in the emergency department was 67, repeat on the medical floor was 58 earlier on admission- resolved Will provide hypoglycemic measures. Monitor sugars every 2 hours - Time Spent with Patient Total time spent is greater than 50% in coordination of care (as documented) at patient's floor/unit and/or counseling patient: Internal Medicine: Result - Labs CBC & Chem 7: 02/23/19 05:15 02/23/19 05:15 Labs: Short CBC 02/23/19 Range/Units 05:15 WBC 9.0 (4.3-11.1) K/mcL Hgb 7.5 L (11.5-15.4) g/dL Hct 23.4 L (35.3-44.9) % Plt Count 111 L (140-400) K/mcL BMP 02/23/19 05:15 Sodium 131 L Potassium 4.4 Chloride 97 L Carbon Dioxide 26 BUN 32 H Creatinine 4.71 H Glucose 52 L Calcium 7.2 L - ABG Interpretation ABG results: PT/INR, D-dimer PT 25.7 Seconds (9.4-12.1) H 02/22/19 08:04 Consult Discharge Plan - Plan Referrals: Peter Vicente DO [Primary Care Provider] - ____ (3) Ascites Qualifiers: Ascites type: other type Qualified Code(s): R18.8 - Other ascites (5) Afib Qualifiers: Atrial fibrillation type: paroxysmal Qualified Code(s): I48.0 - Paroxysmal atrial fibrillation
--- NOTE | 2019-02-23 11:43 | Nephrology Progress Note ---
Date of Encounter: 02/23/19 Time of Encounter: 09:35 - Assessment and Plan (1) ESRD (end stage renal disease) on dialysis Status: Chronic ESRD on HD TTS: orders placed. I recommend following the standard Calciphylaxis protocol of giving Sodium Thiosulfate 25gm during the last 1hr of dialysis (I do not recommend deviating from the standard and having the infusion given on the floor). Should avoid Ca containing binders Recommend Sensipar as well. Avoid coumadin. End-stage renal disease on thrice weekly hemodialysis: I reviewed the patient's labs, vital signs, progress notes, imaging and medication lists, which required complex evaluation and management and medical decision making to compose the patient's dialysis orders. For patients with end-stage renal disease, as always, I recommend following strict I's and O's, daily weights, renal diet, avoidance of nephrotoxic agents, renal dosing. (2) Abdominal wall cellulitis Status: Acute (3) Hypertension Status: Chronic Qualifiers: Hypertension type: essential hypertension Qualified Code(s): I10 - Essential (primary) hypertension (4) Noncompliance with renal dialysis Status: Chronic (5) Weakness generalized Status: Chronic Subjective Principal diagnosis: ESRD Interval history: The patient was seen and examined on Monday, February 23, and her spouse was present in the room. She affirmed having fatigue, but did not report chest pain or dysuria. She said her abdominal wound has been hurting over the last several days to weeks. Objective - Vital Signs Vital signs: Vital Signs Temp Pulse Resp BP Pulse Ox 02/23/19 11:11 98.9 F 77 16 106/68 96 02/23/19 07:02 101.7 F H 90 16 107/74 94 02/23/19 03:56 99 F 82 17 116/54 100 02/23/19 01:01 98.9 F 79 17 122/68 99 02/22/19 19:10 99.3 F 75 17 128/60 100 02/22/19 16:09 98.7 F 72 16 115/73 97 Intake and Output 02/22/19 02/23/19 02/23/19 23:59 07:59 15:59 Intake Total 100 / 570 120 / 120 Balance 100 / 570 120 / 120 Intake: IV Fluids 100 / 450 Zosyn 3.375 GM In 0.9 % Sodium 100 / 100 Chloride (Mini-Bag +) 100 ML @ 25 mls/hr IVPB Q12HR [facility] Rx#: [id number] Oral 120 / 120 Other: Meal Breakfast Percent of Meal Consumed 75% Weight 76.5 kg Blood Glucose* 195 77 94 Patient Weight 02/23/19 23:59 Weight 76.5 kg - General Appearance General appearance: Present: well-developed, well-nourished, appears started age, obese EENT: Present: ATNC, PERRL, mucous membranes moist Neck: Present: no JVD Respiratory: Present: no kyphosis, clear Cardiology: Present: edema, regular rate, regular rhythm, normal S1, normal S2 Dialysis Vascular Access: Arteriovenous Fistula (Left upper extremity) thrill: Yes bruit: Yes Gastrointestinal: Present: normoactive bowel sounds, no guarding, obese Integumentary: Present: rash (wound of the abd skin fold) Neurologic: Present: no focal deficit, no asterixis, alert and oriented x3 Musculoskeletal: Present: no cyanosis Psychiatric: Present: mood/affect appropriate, cooperative - Lab 02/24/19 19:40 02/24/19 05:00 Most recent lab results 02/23/19 05:15 Calcium 7.2 L Phosphorus 3.8 Consult Discharge Plan - Plan Referrals: Peter Vicente DO [Primary Care Provider] -
[2019-02-23] MEDS: Gentamicin Oint 15 GM TUBE TP SCH (18:43)
[2019-02-24] MEDS: Dextrose Gel 15 GM/37.5 ML TUBE PO PRN (03:58)
[2019-02-24] MEDS: Piperacillin/Tazobactam 3.375 GM in 0.9 % Sodium Chloride Mini Bag 100 ML IVPB SCH ×2 (05:04→16:47)
[2019-02-24 05:29] LABS: Mean Corpuscular Volume 101.4 fL (83.0-100.0)
[2019-02-24 05:31] LABS: Hematocrit 21.8 % (35.3-44.9); Immature Platelets 4.4 % (1.1-6.1); Mean Corpuscular HGB Conc 32.1 g/dL (31.6-35.5); Mean Corpuscular Hemoglobin 32.6 pg (28.0-33.3); Mean Platelet Volume 10.8 fL (9.4-12.4); Red Blood Count 2.15 M/mcL (3.82-4.97); Red Cell Distribution Width 19.5 % (11.5-14.5); White Blood Count 8.3 K/mcL (4.3-11.1)
[2019-02-24 05:39] LABS: Prothrombin Time 46.5 Seconds (9.4-12.1)
[2019-02-24 05:41] LABS: INR 4.1
[2019-02-24 05:46] LABS: Potassium 3.9 mEq/L (3.5-5.1)
[2019-02-24 06:27] LABS: Thyroid Stimulating Hormone 174.98 mcIU/mL (0.340-5.600)
[2019-02-24] MEDS ORDERED: Ferumoxytol 510 MG in 0.9 % Sodium Chloride 100 ML IVPB ONE (07:02)
[2019-02-24] MEDS ORDERED: Levothyroxine Sodium 100 MCG VIAL IVP SCH ×2 (07:56→09:22)
--- NOTE | 2019-02-24 08:36 | Internal Med Progress Note ---
Hospitalist Progress Note - Encounter Date of Encounter: 02/24/19 Time of Encounter: 08:00 - Subjective Interval History: Patient was seen and examined at bedside. Has no complaints. Denies nausea, vomiting or diarrhea. I discussed the TSH findings with the patient and I inquired about how she takes her Synthroid she does appear reports that she does not take her Synthroid on an empty stomach. This was discussed with her in depth and now she understands the proper way of taking the medication. I discussed that I will call the [facility] service person and will follow the recommendations and she is in agreement. I discussed that we will hold Ledy her INR is elevated for paracentesis in the morning and she is in agreement understanding the risks and benefits including stroke. I also discussed the new hepatitis B surface antigen being positive and she denies any IV drug abuse recently. I discussed that I will call her iron erector for further recommendations and she understands. She will be transfused 1 unit of PRBC and she is in agreement. Continues to have generalized weakness. This is my first encounter with the patient in quite some time and she has multiple hospitalization and is well known to the nursing staff in her unit. As per nursing staff she looks much better than her baseline. She has no complaints currently, denies any fever, chills, nausea, vomiting or diarrhea. Has had no hematochezia or hematemesis or bleeding from the IV lines. - Exam Vitals: Temp Pulse Resp BP Pulse Ox 100.0 F H 87 16 102/66 97 02/24/19 07:09 02/24/19 07:09 02/24/19 07:09 02/24/19 07:09 02/24/19 07:09 Exam: General: Patient is alert, oriented, no acute distress, obese, appears much older than her age Head: atraumatic, normocephalic, Eye: normal appearance, PERRL, no scleral icterus, no conjunctival injection ENT: mucous membranes moist, normal external ear exam Neck: normal inspection, trachea midline, full ROM, no carotid bruits Chest: normal inspection, symmetric chest rise Respiratory: Good respiratory effort. Bilateral breath sounds are clear without wheezing, crackles, or rhonchi. Cardiovascular: Regular rate and rhythm. s1 and s2 No clicks, rubs, gallops, or murmors. Abdomen: Bowel sounds present normoactive x-4 quadrants. abdomen is obese,could not appreciate fluid shift, no rebound tenderness, wound in the lower left quadrant is covered in clean dressing. musculoskeletal: Spontaneously moving all extremities. traceedema of all extremities, no calf tenderness Skin: warm, dry, intact.AV fistula noted to the left upper extremity. generalized anasarca Neuro: Alert and oriented x4. no focal deficit Psych: Patient's affect is normal - Assessment and Plan (1) Myxedema Current Visit: Yes Status: Suspected Assessment and Plan: patient with elevated TSH of 172 on synthroid 100 mcg at home however after my discussion with loi she is not taking it properly IV synthroid ordered [facility] called for further recs- awaiting call back cortisol, T4 and T3 pending- will follow continue close monitoring of her mental status will consider ICU consult if her mental status deteriorates. (2) Abdominal wall cellulitis Current Visit: Yes Status: Acute Assessment and Plan: Patient has wound 5x5 cm with cellulitis of left lower quadrant of the abdomen. on vancomycin and Zosyn. ID on board surgery consulted adn recommended no surgical intervention, " Wash abdomen with antibacterial soap. Pat dry. Apply gentamicin ointment to the left lower quadrant open areas. Apply sanytl (to the same areas) nickel thick. Cover with saline moisten gauze. Cover with ABD's. Tape to secure. " wound care consulted wound cultures with gram negative Deric blood culture in process (3) Hypoglycemia Current Visit: No Status: Acute Assessment and Plan: ? secondary to myxedema continue to monitor glucose levels cortisol levels pending rest of the management as above hypoglycemia protocol ordered (4) Acute on chronic anemia Current Visit: No Status: Acute Assessment and Plan: Patient's hemoglobin 7.6 down from 9.1 previously. Review of patient's hemoglobin levels shows a wide fluctuation. She has required blood transfusions in the past, most recently on February 12. Type and screen on file Continue to monitor hemoglobin transfuse as per protocol Discussed with Dr. Stewart who recommended EPO on IV iron while on dialysis. discussed again with nephrology on 02/24- will transfuse one more unit of PRBC to optimize her (5) Ascites Current Visit: Yes Status: Acute Assessment and Plan: unknown etiology she has anasarca and hypoalbuminemia. liver contour is WNL on CT as per radiologist bilirubin WNL, AST 9, ALT 4. hepatitis panel , b surface antigen is reactive, will send Hep B viral load to confirm GI was consulted i discussed case with Dr. CUETO ( Her INR is likely elevatedfrom eliquis, her ASt/ ALT/ bilirubin WNL so she is not in fulminant failure) recommended to have paracentesis performed. Ammonia level pending tylenol level negative IR consulted for paracentesis- eliquis on hold- disussed risks and benefits with the patient and she understands. will order INR at midnight and give check out to night team to follow and if still elevated for them to reverse for paracentesis on 02/25 CT A/p Moderate ascites and moderate severe anasarca challenging evaluation. Otherwise noncontrast appearance of the liver, spleen, adrenal glands and pancreas unremarkable. (6) Calciphylaxis Current Visit: Yes Status: Chronic Assessment and Plan: history of calciphylaxis multiple sites. This is secondary to ESRD. 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 nuclear medicine tech (8) ESRD (end stage renal disease) on dialysis Current Visit: No Status: Chronic Assessment and Plan: Continue dialysis Nephrology on board (9) Hepatitis B surface antigen positive Current Visit: Yes Status: Acute Assessment and Plan: see above (10) Iron deficiency anemia Current Visit: Yes Status: Acute Assessment and Plan: likely secondary to chronic disease receiving IV iron as per nephrology continue to follow, rest of the management as above (11) DVT prophylaxis Current Visit: No Status: Acute Assessment and Plan: scds - Time Spent with Patient Total time spent is greater than 50% in coordination of care (as documented) at patient's floor/unit and/or counseling patient: Greater than 35 minutes Plan of Care Discussed with: patient Internal Medicine: Result - Labs CBC & Chem 7: 02/24/19 05:00 02/24/19 05:00 Labs: Short CBC 02/24/19 Range/Units 05:00 WBC 8.3 (4.3-11.1) K/mcL Hgb 7.0 L (11.5-15.4) g/dL Hct 21.8 L (35.3-44.9) % Plt Count 94 L (140-400) K/mcL BMP 02/24/19 05:00 Sodium 135 L Potassium 3.9 Chloride 97 L Carbon Dioxide 29 BUN 19 Creatinine 3.06 H Glucose 84 Calcium 7.0 L - ABG Interpretation ABG results: PT/INR, D-dimer PT 46.5 Seconds (9.4-12.1) H* D 02/24/19 05:00 Consult Discharge Plan - Plan Referrals: Peter Vicente DO [Primary Care Provider] - (5) Ascites Qualifiers: Ascites type: other type Qualified Code(s): R18.8 - Other ascites (7) Afib Qualifiers: Atrial fibrillation type: paroxysmal Qualified Code(s): I48.0 - Paroxysmal atrial fibrillation (10) Iron deficiency anemia Qualifiers: Iron deficiency anemia type: unspecified iron deficiency Qualified Code(s): D50.9 - Iron deficiency anemia, unspecified
--- NOTE | 2019-02-24 09:00 | Nephrology Progress Note ---
Date of Encounter: 02/24/19 Time of Encounter: 07:14 - Assessment and Plan (1) ESRD (end stage renal disease) on dialysis Status: Chronic ESRD on HD TTS: Her next dialysis will be planned for Monday, most likely. I recommend following the standard Calciphylaxis protocol of giving Sodium Thiosulfate 25gm during the last 1hr of dialysis (I do not recommend deviating from the standard and having the infusion given on the floor). Should avoid Ca containing binders. I have already started Sensipar as well. Avoid coumadin. Anemia: transfusion parameters as per primary team; will need EPO and IV iron, which I have ordered. Hypothyroidism: As per primary This complex patient required a high degree of evaluation management and complex medical decision making Thank you (2) Abdominal wall cellulitis Status: Acute (3) Hypertension Status: Chronic Qualifiers: Hypertension type: essential hypertension Qualified Code(s): I10 - Essential (primary) hypertension (4) Noncompliance with renal dialysis Status: Chronic (5) Weakness generalized Status: Chronic Subjective Principal diagnosis: ESRD, abd wound Interval history: The patient was seen and examined on February 24, and her spouse was again present in the room. She had no changes to her complaints of abdominal pain at the wound exit site, and she did not report any problems with dialysis the day before. She did not affirm having active vomiting. Objective - Vital Signs Vital signs: Vital Signs Temp Pulse Resp BP Pulse Ox 02/24/19 07:09 100.0 F H 87 16 102/66 97 02/24/19 01:14 100.0 F H 85 16 128/78 94 02/23/19 21:24 98.8 F 86 17 112/47 99 02/23/19 17:42 97.4 F L 18 131/46 02/23/19 16:55 103/44 02/23/19 16:40 122/46 02/23/19 16:25 113/52 02/23/19 16:10 118/48 02/23/19 15:55 127/49 02/23/19 15:40 141/48 02/23/19 15:25 134/50 02/23/19 15:10 137/52 02/23/19 14:55 144/56 02/23/19 14:40 152/65 02/23/19 14:25 148/69 02/23/19 14:10 154/69 02/23/19 13:55 138/53 02/23/19 13:40 142/53 02/23/19 13:25 97.3 F L 16 149/53 02/23/19 11:11 98.9 F 77 16 106/68 96 Intake and Output 02/23/19 02/24/19 02/24/19 23:59 07:59 15:59 Intake Total 200 / 1140 120 / 120 Output Total 3600 / 3600 Balance -3400 / -2460 120 / 120 Intake: IV Fluids 200 / 300 Zosyn 3.375 GM In 0.9 % Sodium 100 / 200 Chloride (Mini-Bag +) 100 ML @ 25 mls/hr IVPB Q12HR [facility] Rx#: [id number] Sodium Thiosulfate 25 GM In 100 / 100 Empty Bag 1 EACH @ 100 mls/hr IVPB TuThSa [facility] Rx#:[id number] Oral 120 / 120 Output: Urine 0 / 0 Total Dialysis (HD) Output 3600 / 3600 Other: Meal Breakfast Percent of Meal Consumed 50% # Voids 0 Blood Glucose* 76 91 93 Hemodialysis Net Fluid Removed 3000 (mL) - General Appearance Exam: General appearance: Present: well-developed, well-nourished, appears started age, obese EENT: Present: ATNC, PERRL, mucous membranes moist Neck: Present: no JVD Respiratory: Present: no kyphosis, clear Cardiology: Present: edema, regular rate, regular rhythm, normal S1, normal S2 Dialysis Vascular Access: Arteriovenous Fistula (Left upper extremity) thrill: Yes bruit: Yes Gastrointestinal: Present: normoactive bowel sounds, no guarding, obese Integumentary: Present: rash (wound of the abd skin fold) Neurologic: Present: no focal deficit, no asterixis, alert and oriented x3 Musculoskeletal: Present: no cyanosis Psychiatric: Present: mood/affect appropriate, cooperative - Lab 02/24/19 19:40 02/24/19 05:00 Most recent lab results 02/24/19 05:00 Calcium 7.0 L Consult Discharge Plan - Plan Referrals: Peter Vicente DO [Primary Care Provider] -
[2019-02-24] MEDS: Metoprolol XL (24 HR) Succ 25 MG TAB.ER.24H PO SCH (09:10)
[2019-02-24] MEDS: Levothyroxine Sodium 100 MCG VIAL IVP SCH ×2 (09:11→09:29)
[2019-02-24] MEDS ORDERED: Dexamethasone 4 MG/ML VIAL IVP STA (09:13)
[2019-02-24 10:44] LABS: Albumin 1.7 g/dL (3.5-5.7); Albumin/Globulin Ratio 0.6 (1.1-2.2); Bilirubin,Direct 0.4 mg/dL (0.0-0.2); Bilirubin,Indirect 0.4 mg/dL (0.0-1.2); Bilirubin,Total 0.8 mg/dL (0.3-1.0); Globulin 2.8 g/dL (2.4-3.5); Total Protein 4.5 g/dL (6.4-8.9)
[2019-02-24] MEDS ORDERED: 0.9 % Sodium Chloride 250 ML ONE (10:47)
[2019-02-24 10:52] LABS: Triiodothyronine (T3) Free 1.4 pg/mL (2.50-3.90)
[2019-02-24 10:56] LABS: Triiodothyronine (T3) Total 0.32 ng/mL (0.87-1.78)
[2019-02-24] MEDS: Gentamicin Oint 15 GM TUBE TP SCH (11:02)
[2019-02-24] MEDS ORDERED: *HR* Promethazine 25 MG/ML VIAL IVP PRN (11:28)
[2019-02-24] MEDS: Acetaminophen 325 MG TABLET PO PRN (11:40)
--- NOTE | 2019-02-24 12:49 | Pulmonology Consult Note ---
Date of Encounter: 02/24/19 Time of Encounter: 12:41 Assessment and Plan (1) Abdominal wall cellulitis Current Visit: Yes Status: Acute (2) Ascites Current Visit: Yes Status: Acute Qualifiers: Ascites type: other type Qualified Code(s): R18.8 - Other ascites (3) Myxedema Current Visit: Yes Status: Suspected (4) Acute on chronic anemia Current Visit: No Status: Acute (5) Hypoglycemia Current Visit: No Status: Acute (6) Afib Current Visit: No Status: Chronic Qualifiers: Atrial fibrillation type: paroxysmal Qualified Code(s): I48.0 - Paroxysmal atrial fibrillation (7) ESRD on hemodialysis Current Visit: No Status: Chronic History of Present Illness History of present illness: Malathi Alexis is a 44-year-old female who presented to the ED on 02/21/19 complaining of abdominal wound. PMH per EMR: ESRD on HD Monday, , Monday; calcific uremic arteriolopathy, diabetes, A. fib, cardiomyopathy however last echo did not mention, asthma, hypertension, hyperlipidemia, hypothyroidism. Initial vitals were stable Initial Labs: Hemoglobin 7.6 from 9.1. Sodium 131 baseline. Creatinine 3.54 at baseline. Glucose 67. Mildly elevated conjugated bilirubin decreased last visit 02/10/19. ALT and AST at low baseline. Alkaline phosphatase at high baseline 134. She was admitted to the hospital for abdominal wall cellulitis, acute on chronic anemia, calciphylaxis. She was placed on vanc and Zosyn by ID pending cultures. Nephrology was consulted for dialysis. Acute care surgery management of wound. Hospital labs Labs showed hep B reactivity. Exceptionally low transferrin at under 75. Low iron of 14. High ferritin at 882. 02/24/19: Patient's TSH 174.98. With low free T3, T4 and low total T3. Random cortisol within normal limits. She was given a diagnosis of myxedema. IV Synthroid ordered. [facility] consulted and hospitalist is waiting for their call. At time of interview: Patient gives history of increasing stomach pain for 3 days around site of wound. She had this once before 3 years ago and it was debrided at that time. Patient agrees that she is lethargic. She denies any other new symptoms. Past Med Surg Social Fam HX - Past Medical History Medical history: asthma, atrial fibrillation, cardiomyopathy, diabetes, dialysis, GI bleed, hyperlipidemia, hypertension, renal disease, thyroid disease Additional medical history: T S dialysis Psychiatric history: no psych history - Past Surgical History Surgical History: appendectomy, cholecystectomy, thyroidectomy, transplant, other Additional surgical history: KIDNEY TRANSPLANT 2007, TUBAL LIGATION, left antecubital AV fistula, multiple surgical and endovascular interventions for the left antecubital AV fistula, and placement of a left upper arm AV shunt - Social History Smoking Status: Never smoker Smokeless Tobacco Status: No Alcohol use: none Drug use: none - Family History Father Adopted: No Family Member Ethnicity: Non- Living Status: Hx Family Cardiac Disorders: Yes Hx Family Respiratory Disorders: Yes Hx Family Cancer: Yes Hx Family GI Disorders: No Hx Family Endocrine Disorder: Yes Hx Family Neuromuscular Disorders: No Hx Family Neurologic Disorders: No Hx Family HEENT Disorders: No Hx Family Autoimmune Disorders: No Mother Adopted: No Living Status: Hx Family Cardiac Disorders: Yes Hx Family Respiratory Disorders: No Hx Family Cancer: Yes Hx Family GI Disorders: No Hx Family Endocrine Disorder: No Hx Family Neuromuscular Disorders: No Hx Family Neurologic Disorders: No Hx Family HEENT Disorders: No Hx Family Autoimmune Disorders: No Medications and Allergies Cholecalciferol (Vitamin D3) [Vitamin D3] 50,000 units PO MO 12/28/18 [History] Albuterol Sulfate [Proventil Inhaler] 2 puff PO Q4H PRN 01/31/19 [History] Apixaban [Eliquis] 5 mg PO BID 01/31/19 [History] Atorvastatin [Lipitor] 40 mg PO HS 01/31/19 [History] Folic Acid 1 mg PO DAILY 01/31/19 [History] Levothyroxine Sodium 100 mcg PO QAM 01/31/19 [History] Metoclopramide [Reglan] 10 mg PO DAILY 01/31/19 [History] Metoprolol Succinate [Toprol Xl] 25 mg PO DAILY 01/31/19 [History] cloNIDine HCl [CloNIDine HCl] 0.1 mg PO DAILY 02/12/19 [History] hydrALAZINE [HydrALAZINE] 50 mg PO DAILY 02/12/19 [History] Pantoprazole Sodium [Protonix] 40 mg PO QDPC #30 tablet. 02/14/19 [Rx] Cyclobenzaprine HCl 10 mg PO HS 02/22/19 [History] Allergy/AdvReac Type Severity Reaction Status Date / Time morphine Allergy See Verified 02/22/19 22:25 Comments Warfarin [From Coumadin] Allergy Anaphylaxis Verified 02/22/19 22:25 heparin AdvReac Severe Unresponsiv Verified 02/22/19 22:25 e All Systems: The remainder of the systems were reviewed and are negative Review of Systems: Gen.: No home fevers, weight loss, night sweats. Eyes: No new vision loss. ENT: No trouble swallowing Cardiac: Denies chest pain, palpitations Respiratory: Denies dyspnea, hemoptysis GI: Abdominal wound pain. Denies nausea, diarrhea : Denies ability to make urine. Confirms left kidney transplant. Neuro: Denies dizziness or syncope Physical Examination Vital Signs: Vital Signs, Last 4 Hours Temp Pulse Resp BP Pulse Ox 02/24/19 11:41 100.4 F H 87 16 98/38 02/24/19 11:26 100.1 F H 86 18 96/65 95 02/24/19 11:03 100.1 F H 87 16 109/74 95 Gen.: Middle-aged female. Lethargic Skin: Good turgor. No obvious jaundice Eyes: Moist. Nonicteric. Possibly some degree of Exophthalmus Neck: No JVD or carotid bruits Cardiac: Regular rate and rhythm. 3 out of 6 at least systolic murmur best heard over the tricuspid post. Respiratory: CTA throughout. Upper anterior posts are auscultated secondary to patient not being able to move GI: Hardened woody feel of lower quadrants with demarcation from previous renal transplant. Left lower quadrant bandaged. Tender to palpation. Bowel sounds heard. Extremities: Capillary refill less than 2 seconds upper extremities bilaterally. Trace pitting edema to mid tibia bilaterally and worse on the left. Neuro: [place] 2. Patient is very lethargic and falls asleep during interview. Myxedema coma Patient admits to significantly increased fatigue and day or so after she was admitted. Patient could not recite her medications. Febrile with MAXIMUM TEMPERATURE of 101.7 on 02/23/19. Hyponatremia. Hypoglycemia. 02/24/19: Pulses within normal limits. MAP around 58. TSH elevated at 174.98. Free T4 0.64 Random cortisol within normal limits. Plan: IV levothyroxine. To be transferred to [facility]. ACTH stimulation test ordered. Hydrocortisone. Repeat T4 daily. Abdominal wall cellulitis Likely secondary to calciphylaxis. Recent fever at 11:45 and 100.4. WBC remains WNL. Wound culture grew Proteus mirabilis sensitive to Zosyn. Plan: Wound care has evaluated and recommends Santyl. Zosyn. Blood cultures pending. Hypoglycemia Consider secondary to myxedema coma. Glucose has ranged from 52 - 86. Plan: Address Myxedema coma. ACTH stimulation pending. Acute on chronic anemia Macrocytic 9.1-7.6 between 02/14/19 and 02/21/19. Iron from 104 >14 between 02/13/19 and 02/23/19 Percent saturation 94 and 99% on 12/28/18 and 02/13/19 respectively. Transferrin 75 to below 75 on 02/13/19 and 02/23/19 Ferritin from greater than 1500> 882 Recent B12 or folate within normal limits Based on prior studies high saturation percent with reduced transferrin could indicate liver disease. Also consider anemia of chronic disease. Plan: Erythropoietin while on dialysis per nephrology. Consider liver biopsy in the future. Ordered soluble transferrin receptor in the setting of cellulitis and acute inflammation of the abdomen. Continue to monitor for signs of bleed. IV iron per nephrology. One unit packed red blood cells. Ascites Consider secondary to hep B. Low AST and ALT. Hep B antigen reactive Ascites seen on CT 02/21/19. Appearance of the liver reported as unremarkable Plan: Consider fluid analysis when myxedema coma resolved. GI to follow up. A. fib Plan: We will continue to hold eloquis 2/2 acute anemia. ESRD Plan: Nephrology following. Calciphylaxis protocol of sodium thiosulfate during last hour of dialysis. Cinacalcet. Results - Laboratory Findings CBC and BMP: 02/24/19 05:00 02/24/19 05:00 PT/INR, D-dimer PT 46.5 Seconds (9.4-12.1) H* D 02/24/19 05:00 Abnormal lab findings: Abnormal lab results RBC 2.15 M/mcL (3.82-4.97) L 02/24/19 05:00 Hgb 7.0 g/dL (11.5-15.4) L 02/24/19 05:00 Hct 21.8 % (35.3-44.9) L 02/24/19 05:00 MCV 101.4 fL (83.0-100.0) H 02/24/19 05:00 MCHC 30.9 g/dL (31.6-35.5) L 02/22/19 06:49 RDW 19.5 % (11.5-14.5) H 02/24/19 05:00 Plt Count 94 K/mcL (140-400) L 02/24/19 05:00 Platelet Estimate Slight Decrease (Normal) L 02/21/19 16:51 Immature Plt Fraction 7.2 % (1.1-6.1) H 02/21/19 16:51 PT 46.5 Seconds (9.4-12.1) H* D 02/24/19 05:00 APTT 37.3 Seconds (26.0-36.0) H 02/22/19 08:04 Sodium 135 mEq/L (136-145) L 02/24/19 05:00 Chloride 97 mEq/L (98-107) L 02/24/19 05:00 BUN 32 mg/dL (6-20) H 02/23/19 05:15 Creatinine 3.06 mg/dL (0.60-1.20) H 02/24/19 05:00 Est GFR ( Amer) 20 (> 60) L 02/24/19 05:00 Est GFR (Non-Af Amer) 17 (> 60) L 02/24/19 05:00 Glucose 52 mg/dL (70-105) L 02/23/19 05:15 POC Glucose 63 mg/dL (70-99) L 02/24/19 00:57 Calculated Osmolality 276 (280-300) L 02/23/19 05:15 Calcium 7.0 mg/dL (8.6-10.3) L 02/24/19 05:00 Iron 14 mcg/dL (50-170) L 02/23/19 05:15 Transferrin < 75 mg/dL (203-362) L 02/23/19 05:15 Ferritin 882 ng/mL (10-120) H 02/23/19 05:15 Direct Bilirubin 0.4 mg/dL (0.0-0.2) H 02/24/19 05:00 AST 10 Units/L (13-39) L 02/24/19 05:00 ALT 4 Units/L (7-52) L 02/24/19 05:00 Alkaline Phosphatase 141 Units/L (34-104) H 02/22/19 06:49 Serum Total Protein 4.5 g/dL (6.4-8.9) L 02/24/19 05:00 Albumin 1.7 g/dL (3.5-5.7) L 02/24/19 05:00 Globulin 3.7 g/dL (2.4-3.5) H 02/22/19 06:49 Albumin/Globulin Ratio 0.6 (1.1-2.2) L 02/24/19 05:00 TSH 174.980 mcIU/mL (0.340-5.600) H 02/24/19 05:00 Free T4 0.64 ng/dl (0.70-2.00) L 02/24/19 05:00 Free T3 1.40 pg/mL (2.50-3.90) L 02/24/19 05:00 Total T3 0.32 ng/mL (0.87-1.78) L 02/24/19 05:00 Acetaminophen < 10 mcg/mL (10-20) L 02/23/19 05:15 Hep Bs Antigen Reactive (Nonreactive) H 02/23/19 05:15 Hep Bs Antibody 6.76 mIU/mL (10.00-) L 02/23/19 05:15 Crossmatch See Detail 02/21/19 22:37 - Microbiology Findings Microbiology Findings: Microbiology, Last 48 Hours 02/21/19 18:46 Wound Culture - Preliminary Abdomen Proteus mirabilis - Clinical Findings Intake & Output: Intake & Output 02/23/19 02/24/19 02/24/19 23:59 07:59 15:59 Intake Total 200 / 1140 220 / 220 Output Total 3600 / 3600 Balance -3400 / -2460 220 / 220 Consult Discharge Plan - Plan Referrals: Peter Vicente DO [Primary Care Provider] -
--- NOTE | 2019-02-24 14:09 | Event Note ---
Date of Encounter: 02/24/19 Time of Encounter: 14:06 I examined this patient and my medical decision-making was reviewed with the Resident Physician. I agree with the documented findings, disposition and treatment plan as described except to the extent set forth below. Chronically ill 44-year-old morbidly obese female who presented for evaluation of abdominal cellulitis. She was found to be profoundly hypothyroid this admission. Transferred to the ICU with concerns for myxedema coma. * Hypothyroidism * ESRD * Abdominal cellulitis Patient is stable from a critical care standpoint. On room air, protecting airway, normal hemodynamics. Plan is for transfer to [facility] for endocrinology evaluation when a bed becomes available. Per primary service, [facility] endocrinology recommended 125 g of intravenous Synthroid daily. We will continue this. I have added IV Solu-Medrol to her re gimen as well. She is on antibiotics per the primary service for abdominal cellulitis. Ongoing dialysis needs per nephrology service.
[2019-02-24] MEDS ORDERED: Cosyntropin 250 MCG/2 ML VIAL IVP ONE (14:48)
[2019-02-24] MEDS ORDERED: Hydrocortisone Sodium Succ 100 MG/2 ML VIAL IVP SCH (16:00)
[2019-02-24 20:06] LABS: Hematocrit 27.3 % (35.3-44.9)
--- NOTE | 2019-02-24 21:24 | Event Note ---
Date of Encounter: 02/24/19 Time of Encounter: 21:23 Patient has been accepted for transfer at [facility]. I saw the patient at bedside, and she states that she is feeling well. She had originally been managed in the ICU for management of myxedema coma. She received IV Synthroid and Solu-Medrol, as well as antibiotics for abdominal cellulitis. She received dialysis per the nephrology service. She has been hemodynamically stable since receiving treatment. She was found to have a low hemoglobin today at 7.0. She was transfused with one unit of packed blood cells. Last hemoglobin was 9.0. She currently denies fatigue, fever, chills, tremors, shortness of breath, palpitations, headache, nausea, or vomiting. She has no complaints at this time.
[2019-02-24] MEDS ORDERED: Aminoglycoside Consult 1 EACH MC ONE (21:44)
[2019-02-24 21:50] VITALS: BP 104/35
[2019-02-25] MEDS ORDERED: Levothyroxine Sodium 100 MCG VIAL IVP SCH (06:30)
[2019-02-25 11:25] LABS: Estimated Average Glucose 103 mg/dl
[2019-02-27 09:27] LABS: HBV Quant Log by PCR NOT DETECTED log IU/mL; HBV Quant by PCR NOT DETECTED
[2019-02-27 09:57] LABS: HBV Quant Interpretation NOT DETECTED (Not Detected)
== END 2019-02-24 21:45 | disposition short-term general hospital (02) | DRG 383 ==
LOC: 2ANU 15:09 → EMEROOARM 15:09 → SUATTDRO 20:14 → 2ANU 20:45 → ICNU 02-24 12:40
PROVIDERS: ADMIT Internal Medicine; ATTEND Internal Medicine

== ENCOUNTER 2019-03-11 13:37 | Inpatient (IN) ==
--- NOTE | 2019-03-11 14:03 | Emergency Department Note ---
Disposition Clinical Impression: Hypoglycemia, ESRD (end stage renal disease) on dialysis Disposition: Admitted As Inpatient Condition: Good Referrals: Peter Vicente DO [Primary Care Provider] - Forms: ED Satisfaction Letter Time of Disposition: 15:47 General Adult HPI - General Chief complaint: ED Weakness Stated complaint: weakness, hypoglycemia Time Seen by Provider: 03/11/19 13:39 Source: EMS Limitations: no limitations Nursing Notes Reviewed: Yes Vital Signs Reviewed: Yes - History of Present Illness HPI Narrative: 44 year-female Hx HTN, DM, COPD, GIB, cardiomyopathy, ESRD on TTS dialysis. Family found down. EMS also found her unresponsive, initial glucose 54, MS improved after D10. Now patient complains only of generalized weakness. Missed last 2 dialysis sessions because she wasn't feeling well. Says she's been told she has DM but not taking anything for it. Didn't eat breakfast today because not feeling well. Pt Subjective Complaint: AMS Onset (ago): unknown Pain Scale: 0 - Related Data Home Medications Medication Instructions Recorded Confirmed Albuterol Sulfate [Proventil 0 puff IH Q4HR 03/11/19 03/11/19 Inhaler] Apixaban [Eliquis] 2.5 mg PO Q12H 03/11/19 03/11/19 Atorvastatin [Lipitor] 40 mg PO HS 03/11/19 03/11/19 Budesonide/Formoterol 80/4.5 2 puff IH Q12H 03/11/19 03/11/19 [Symbicort 80/4.5] Cyclobenzaprine HCl 10 mg PO TID PRN 03/11/19 03/11/19 Daptomycin [Cubicin Rf] 800 mg IV Q48H 03/11/19 03/11/19 Ertapenem [INVanz] 1,000 mg IVPB DAILY 03/11/19 03/11/19 Esomeprazole Magnesium [Nexium] 40 mg PO DAILY 03/11/19 03/11/19 Levothyroxine Sodium [Levo-T] 300 mcg PO DAILY 03/11/19 03/11/19 Metoprolol Succinate [Toprol Xl] 25 mg PO DAILY 03/11/19 03/11/19 Allergies Allergy/AdvReac Type Severity Reaction Status Date / Time morphine Allergy See Verified 02/22/19 22:25 Comments Warfarin [From Coumadin] Allergy Anaphylaxis Verified 02/22/19 22:25 heparin AdvReac Severe Unresponsiv Verified 02/22/19 22:25 e All systems ED: reviewed and negative except as stated. Constitutional: Reports: weakness (generalized). Denies: fever Cardiovascular: Denies: chest pain, palpitations Respiratory: Denies: cough, dyspnea Gastrointestinal: Denies: abdominal pain, vomiting, hematemesis, melena, hematochezia Musculoskeletal: Denies: back pain, neck pain Neurological: Denies: headache, weakness, numbness Endocrine: Reports: fatigue Past Medical History - Past Medical History Medical history: Reports: asthma, atrial fibrillation, cardiomyopathy, diabetes, dialysis, GI bleed, hyperlipidemia, hypertension, renal disease, thyroid disease Surgical history: Reports: appendectomy, cholecystectomy, thyroidectomy, transplant, other Psychiatric history: Reports: no psych history CARVER HAND history: Reports: bilateral tubal ligation - Social History Smoking Status: Never smoker Smokeless Tobacco Status: No Alcohol use: Reports: none Drug use: Reports: none Physical Exam - General Limitations: no limitations General appearance: alert, other (chronically ill appearing) - Head Head exam: atraumatic, normocephalic - Eye Eye exam: Present: normal appearance, PERRL, EOMI - ENT ENT exam: normal exam - Neck Neck exam: Present: normal inspection - Respiratory Respiratory exam: Present: other (scattered rhonchi). Absent: respiratory distress - Cardiovascular Cardiovascular exam: Present: regular rate, normal rhythm, normal heart sounds - Abdominal Exam Abdominal exam: Present: soft. Absent: tenderness, distention, guarding, rebound, rigidity - Extremities Exam Extremities exam: Present: normal inspection. Absent: calf tenderness - Neurological Exam Neurological exam: Present: oriented X3, CN II-XII intact. Absent: motor sensory deficit - Psychiatric Psychiatric exam: Present: flat affect - Skin Skin exam: Present: warm, dry, intact Course - Reevaluation(s) Reevaluation #1: VSS. Patient feeling well. Eating a meal. Time: 15:47 Reevaluation #2: Discussed with Dr. Fenton's office clerk assistant, and they will consult after patient admitted. Discussed with Dr. Addison and patient accepted for admission. Time: 16:29 Vital Signs Temperature 0 F L 03/11/19 13:51 Pulse Rate 99 03/11/19 13:51 Respiratory Rate 16 08/26/19 13:51 Blood Pressure 140/100 08/26/19 13:51 O2 Sat by Pulse Oximetry 100 03/11/19 13:51 Temperature 92.5 F L 03/11/19 15:00 Pulse Rate 59 03/11/19 15:00 Respiratory Rate 14 03/11/19 15:00 Blood Pressure 102/72 03/11/19 15:00 O2 Sat by Pulse Oximetry 100 03/11/19 15:00 Oxygen Delivery Oxygen Delivery Room Air Medical Decision Making - MDM Narrative Medical decision making narrative: Hx mult medical problems including ESRD with missed dialysis x 2, AMS improved with dextrose. - Lab Data Lab results reviewed: Yes I reviewed the patient's lab results. Lab results narrative: Hgb 7.4 - was 9.0 two weeks ago but has been similarly low in the past Plt 56 - chronic K 4.9 Multiple other abnormalities, all consistent with previous results Result diagrams: 03/11/19 14:51 03/11/19 14:51 Lab Results 03/11/19 03/11/19 03/11/19 Range/Units 14:51 14:51 14:51 WBC 7.9 (4.3-11.1) K/mcL RBC 2.26 L (3.82-4.97) M/mcL Hgb 7.4 L (11.5-15.4) g/dL Hct 23.1 L (35.3-44.9) % MCV 102.2 H (83.0-100.0) fL MCH 32.7 (28.0-33.3) pg MCHC 32.0 (31.6-35.5) g/dL RDW 21.2 H (11.5-14.5) % Plt Count 56 L (140-400) K/mcL MPV 10.9 (9.4-12.4) fL Immature Gran % 0.6 (0-4) % Seg Neutrophils % 74.8 % Lymphocytes % 12.2 % Monocytes % 9.9 % Eosinophils % 2.2 % Basophils % 0.3 % Neutrophils # 5.9 (1.6-8.9) K/mcL Lymphocytes # 1.0 (0.6-4.6) K/mcL Monocytes # 0.8 (0.0-1.3) K/mcL Eosinophils # 0.2 (0.0-0.6) K/mcL Basophils # 0.0 (0.0-0.2) K/mcL Platelet Estimate Decreased L (Normal) Immature Plt Fraction 6.3 H (1.1-6.1) % Anisocytosis 1+ A (Not Present) PT 40.0 H (9.4-12.1) Seconds INR 3.5 APTT 48.9 H (26.0-36.0) Seconds Sodium 140 (136-145) mEq/L Potassium 4.9 (3.5-5.1) mEq/L Chloride 98 (98-107) mEq/L Carbon Dioxide 22 L (23-29) mEq/L BUN 29 H (6-20) mg/dL Creatinine 5.12 H (0.60-1.20) mg/dL Est GFR ( Amer) 11 L (> 60) Est GFR (Non-Af Amer) 9 L (> 60) BUN/Creatinine Ratio 6 (6-26) Glucose 187 H (70-105) mg/dL Calculated Osmolality 301 H (280-300) Calcium 7.4 L (8.6-10.3) mg/dL Total Bilirubin 0.9 (0.3-1.0) mg/dL Direct Bilirubin 0.3 H (0.0-0.2) mg/dL Indirect Bilirubin 0.6 (0.0-1.2) mg/dL AST 15 (13-39) Units/L ALT < 3 L (7-52) Units/L Alkaline Phosphatase 105 H (34-104) Units/L Troponin I 0.03 (< 0.04) ng/mL Serum Total Protein 4.8 L (6.4-8.9) g/dL Albumin 1.9 L (3.5-5.7) g/dL Globulin 2.9 (2.4-3.5) g/dL Albumin/Globulin Ratio 0.7 L (1.1-2.2) TSH (0.340-5.600) mcIU/mL Ethyl Alcohol < 10 (Less than 10) mg/dL 03/11/19 Range/Units 14:51 WBC (4.3-11.1) K/mcL RBC (3.82-4.97) M/mcL Hgb (11.5-15.4) g/dL Hct (35.3-44.9) % MCV (83.0-100.0) fL MCH (28.0-33.3) pg MCHC (31.6-35.5) g/dL RDW (11.5-14.5) % Plt Count (140-400) K/mcL MPV (9.4-12.4) fL Immature Gran % (0-4) % Seg Neutrophils % % Lymphocytes % % Monocytes % % Eosinophils % % Basophils % % Neutrophils # (1.6-8.9) K/mcL Lymphocytes # (0.6-4.6) K/mcL Monocytes # (0.0-1.3) K/mcL Eosinophils # (0.0-0.6) K/mcL Basophils # (0.0-0.2) K/mcL Platelet Estimate (Normal) Immature Plt Fraction (1.1-6.1) % Anisocytosis (Not Present) PT (9.4-12.1) Seconds INR APTT (26.0-36.0) Seconds Sodium (136-145) mEq/L Potassium (3.5-5.1) mEq/L Chloride (98-107) mEq/L Carbon Dioxide (23-29) mEq/L BUN (6-20) mg/dL Creatinine (0.60-1.20) mg/dL Est GFR ( Amer) (> 60) Est GFR (Non-Af Amer) (> 60) BUN/Creatinine Ratio (6-26) Glucose (70-105) mg/dL Calculated Osmolality (280-300) Calcium (8.6-10.3) mg/dL Total Bilirubin (0.3-1.0) mg/dL Direct Bilirubin (0.0-0.2) mg/dL Indirect Bilirubin (0.0-1.2) mg/dL AST (13-39) Units/L ALT (7-52) Units/L Alkaline Phosphatase (34-104) Units/L Troponin I (< 0.04) ng/mL Serum Total Protein (6.4-8.9) g/dL Albumin (3.5-5.7) g/dL Globulin (2.4-3.5) g/dL Albumin/Globulin Ratio (1.1-2.2) TSH 7.987 H (0.340-5.600) mcIU/mL Ethyl Alcohol (Less than 10) mg/dL - Radiology Data Radiology results reviewed: Yes I reviewed the patient's radiology results. CT H - NAD CXR - pulm vascular congestion - EKG Data EKG #1 EKG attestation: Yes I reviewed and interpreted this EKG. EKG shows normal: sinus rhythm Rate: normal Rhythm: NSR Lovejoy/QRS: normal Q waves: v1, v2, v3 Interpretation: no acute changes
[2019-03-11] MEDS ORDERED: *HR* Dextrose 50 % in Water (Syg) 50 ML SYRINGE ONE (14:41)
[2019-03-11] MEDS: *HR* Dextrose 50 % in Water (Syg) 50 ML SYRINGE IVP PRN (14:45)
[2019-03-11 15:05] LABS: Hemoglobin 7.4 g/dL (11.5-15.4); Red Cell Distribution Width 21.2 % (11.5-14.5)
[2019-03-11 15:07] LABS: Basophils % 0.3 %; Eosinophils # 0.2 K/mcL (0.0-0.6); Eosinophils % 2.2 %; Hematocrit 23.1 % (35.3-44.9); Immature Granulocytes % 0.6 % (0-4); Immature Platelets 6.3 % (1.1-6.1); Lymphocytes % 12.2 %; Mean Corpuscular Hemoglobin 32.7 pg (28.0-33.3); Mean Corpuscular Volume 102.2 fL (83.0-100.0); Mean Platelet Volume 10.9 fL (9.4-12.4); Monocytes # 0.8 K/mcL (0.0-1.3); Monocytes % 9.9 %; Neutrophils # 5.9 K/mcL (1.6-8.9); Red Blood Count 2.26 M/mcL (3.82-4.97); Segmented Neutrophils % 74.8 %; White Blood Count 7.9 K/mcL (4.3-11.1)
[2019-03-11 15:13] LABS: INR 3.5
[2019-03-11 15:15] LABS: Activated Partial Thrombo Time 48.9 Seconds (26.0-36.0)
[2019-03-11 15:34] LABS: Platelet Count 56 K/mcL (140-400)
[2019-03-11 15:35] LABS: Alanine Aminotransferase < 3 Units/L (7-52); Albumin 1.9 g/dL (3.5-5.7); Albumin/Globulin Ratio 0.7 (1.1-2.2); Alkaline Phosphatase 105 Units/L (34-104); Anisocytosis 1+ (Not Present); Aspartate Amino Transferase 15 Units/L (13-39); BUN/Creatinine Ratio 6 (6-26); Bilirubin,Direct 0.3 mg/dL (0.0-0.2); Bilirubin,Indirect 0.6 mg/dL (0.0-1.2); Bilirubin,Total 0.9 mg/dL (0.3-1.0); Blood Urea Nitrogen 29 mg/dL (6-20); Calcium 7.4 mg/dL (8.6-10.3); Carbon Dioxide 22 mEq/L (23-29); Chloride 98 mEq/L (98-107); Ethanol < 10 mg/dL (Less than 10); Globulin 2.9 g/dL (2.4-3.5); Glucose 187 mg/dL (70-105); Osmolality,Calculated 301 (280-300); Platelet Estimate Decreased (Normal); Potassium 4.9 mEq/L (3.5-5.1); Sodium 140 mEq/L (136-145); Total Protein 4.8 g/dL (6.4-8.9); Troponin I 0.03 ng/mL (< 0.04); eGFR For African Americans 11 (> 60); eGFR For Non-African Americans 9 (> 60)
--- NOTE | 2019-03-11 17:05 | Internal Med History&Physical ---
Date of Encounter: 03/11/19 Time of Encounter: 17:05 Internal Medicine - H&P: HPI Chief complaint: Change in mental status History of present illness: Ms. Alexis is a 44 year old female with past medical history of asthma, atrial fibrillation, cardiomyopathy, diabetes, dialysis, GI bleed, hyperlipidemia, hypertension, renal disease, thyroid disease who presented to the ER after she was found unresponsive due to reported hypoglycemia a 54 that later improved with dextrose infusion. In the ER the patient reported that she has missed 2 of her dialysis session due to generalized weakness and feeling that a lot of fluid has been taking of her. The patient was evaluated by the ER staff and her laboratory data was suggestive of anemia with hemoglobin 7.4 however potassium was was within normal limit, she had beer hypovolemic on physical exam however she is saturating in the upper 90s on room air the patient was evaluated by nephrology team has decided to proceed with dialysis in a.m. and reported no significant need for emergent renal replacement therapy tonight. The patient will be admitted for further evaluation and management. Past Med Surg Social Fam HX - Past Medical History Medical history: asthma, atrial fibrillation, cardiomyopathy, diabetes, dialysis, GI bleed, hyperlipidemia, hypertension, renal disease, thyroid disease Additional medical history: T dialysis Psychiatric history: no psych history - Past Surgical History Surgical History: appendectomy, cholecystectomy, thyroidectomy, transplant, other Additional surgical history: KIDNEY TRANSPLANT 2007, TUBAL LIGATION, left antecubital AV fistula, multiple surgical and endovascular interventions for the left antecubital AV fistula, and placement of a left upper arm AV shunt - Social History Smoking Status: Never smoker Smokeless Tobacco Status: No Alcohol use: none Drug use: none - Family History Father Adopted: No Family Member Ethnicity: Non- Living Status: Hx Family Cardiac Disorders: Yes Hx Family Respiratory Disorders: Yes Hx Family Cancer: Yes Hx Family GI Disorders: No Hx Family Endocrine Disorder: Yes Hx Family Neuromuscular Disorders: No Hx Family Neurologic Disorders: No Hx Family HEENT Disorders: No Hx Family Autoimmune Disorders: No Mother Adopted: No Living Status: Hx Family Cardiac Disorders: Yes Hx Family Respiratory Disorders: No Hx Family Cancer: Yes Hx Family GI Disorders: No Hx Family Endocrine Disorder: No Hx Family Neuromuscular Disorders: No Hx Family Neurologic Disorders: No Hx Family HEENT Disorders: No Hx Family Autoimmune Disorders: No Internal Medicine - H&P: Meds Artificial Tears SOLN [Akwa Tears] 1 drop BOTH EYES QID bottle 03/20/19 [Rx] Ondansetron [Zofran] 4 mg IVP Q8HR PRN vial 03/20/19 [Rx] Scopolamine Patch [Transderm-Scop] 1.5 mg TD Q72H patch.td72 03/20/19 [Rx] Allergy/AdvReac Type Severity Reaction Status Date / Time morphine Allergy See Verified 02/22/19 22:25 Comments Warfarin [From Coumadin] Allergy Anaphylaxis Verified 02/22/19 22:25 heparin AdvReac Severe Unresponsiv Verified 02/22/19 22:25 e All Systems PM: A 10-system review of systems was performed and is negative for pertinent findings except as documented above in the HPI. - Constitutional Vitals: Temp Pulse Resp BP Pulse Ox 92.5 F L 59 14 102/72 100 03/11/19 15:00 03/11/19 15:00 03/11/19 15:00 03/11/19 15:00 03/11/19 15:00 General appearance: Present: A&O X 3 Exam: ` - Head Head exam: Present: atraumatic, normocephalic - Neck Neck exam general surgery: Present: supple, trachea midline. Absent: lymphadenopathy - Respiratory Respiratory exam: Present: rhonchi. Absent: accessory muscle use, rales, wheezes - Cardiovascular Cardiovascular exam: Present: RRR, +S1, +S2. Absent: diastolic murmur, gallop, rubs, systolic murmur - Extremities Exam Extremities exam: Present: pedal edema Internal Med - H&P Results - Labs CBC & Chem 7: 03/19/19 06:45 03/19/19 06:45 Labs: Short CBC 03/11/19 Range/Units 14:51 WBC 7.9 (4.3-11.1) K/mcL Hgb 7.4 L (11.5-15.4) g/dL Hct 23.1 L (35.3-44.9) % Plt Count 56 L (140-400) K/mcL Neutrophils # 5.9 (1.6-8.9) K/mcL BMP 03/11/19 14:51 Sodium 140 Potassium 4.9 Chloride 98 Carbon Dioxide 22 L BUN 29 H Creatinine 5.12 H Glucose 187 H Calcium 7.4 L Cardiac Enzymes 03/11/19 Range/Units 14:51 Troponin I 0.03 (< 0.04) ng/mL Liver Function 03/11/19 Range/Units 14:51 Total Bilirubin 0.9 (0.3-1.0) mg/dL Direct Bilirubin 0.3 H (0.0-0.2) mg/dL AST 15 (13-39) Units/L ALT < 3 L (7-52) Units/L Alkaline Phosphatase 105 H (34-104) Units/L Albumin 1.9 L (3.5-5.7) g/dL - Impressions ITS Impressions Chest X-Ray 03/11/19 13:46 IMPRESSION: Vascular congestion. D/ / 03/11/2019 14:34:15 Tarun Childers MD / sanjiv Interpreting Provider: Tarun Childers MD Head CT 03/11/19 13:47 IMPRESSION: No acute intracranial abnormality. Diffuse parenchymal volume loss and sequela of chronic microvascular ischemic changes. D/ / Wilton Russell MD / Wilton Russell MD Interpreting Provider: Wilton Russell MD - Assessment and Plan (1) Hypoglycemia Status: Acute Assessment and plan: The patient reported decreased oral intake, her blood sugar was reported to be 54 responded well to IV D10. (2) ESRD (end stage renal disease) on dialysis Status: Chronic Assessment and plan: Nephrology was consulted (3) COPD (chronic obstructive pulmonary disease) Status: Chronic Assessment and plan: We will cont. home meds Qualifiers: COPD type: unspecified COPD Qualified Code(s): J44.9 - Chronic obstructive pulmonary disease, unspecified (4) ESRD (end stage renal disease) on dialysis Status: Chronic (5) Hypertension Status: Chronic Assessment and plan: We will cont home antihypertensive Qualifiers: Hypertension type: essential hypertension Qualified Code(s): I10 - Essential (primary) hypertension (6) Noncompliance with renal dialysis Status: Chronic Assessment and plan: Nephrology was consulted (7) Secondary hyperparathyroidism (of renal origin) Status: Chronic Assessment and plan: Nephrology was consulted - Time Spent With Patient Total time spent is greater than 50% in coordination of care (as documented) at patient's floor/unit and/or counseling patient:
[2019-03-11] MEDS ORDERED: Naloxone 0.4 MG/ML INJ IVP PRN (17:13)
[2019-03-11] MEDS ORDERED: Dextrose Gel 15 GM/37.5 ML TUBE PO PRN (17:18)
[2019-03-11] MEDS ORDERED: D5% in Water 1,000 ML IVC PRN (17:18)
[2019-03-11 18:57] LABS: Basophils % 0.2 %; Red Blood Count 2.32 M/mcL (3.82-4.97)
[2019-03-11 18:59] LABS: Eosinophils # 0.2 K/mcL (0.0-0.6); Eosinophils % 1.6 %; Hematocrit 23.6 % (35.3-44.9); Hemoglobin 7.7 g/dL (11.5-15.4); Immature Granulocytes % 0.3 % (0-4); Immature Platelets 7.5 % (1.1-6.1); Lymphocytes # 0.9 K/mcL (0.6-4.6); Lymphocytes % 10.3 %; Mean Corpuscular HGB Conc 32.6 g/dL (31.6-35.5); Mean Corpuscular Hemoglobin 33.2 pg (28.0-33.3); Mean Corpuscular Volume 101.7 fL (83.0-100.0); Mean Platelet Volume 11.7 fL (9.4-12.4); Monocytes # 0.9 K/mcL (0.0-1.3); Monocytes % 10.2 %; Red Cell Distribution Width 20.9 % (11.5-14.5); Segmented Neutrophils % 77.4 %; White Blood Count 9.1 K/mcL (4.3-11.1)
[2019-03-11 19:00] LABS: Platelet Count 61 K/mcL (140-400)
[2019-03-11 19:45] LABS: Platelet Estimate Decreased (Normal)
[2019-03-11 20:12] LABS: Estimated Average Glucose 111 mg/dl
--- NOTE | 2019-03-11 20:20 | Nephrology Consult Note ---
<AmyGisel link Jarrett - Last Filed: 03/11/19 20:38> Date of Encounter: 03/11/19 Time of Encounter: 16:30 Assessment and Plan (1) ESRD (end stage renal disease) on dialysis Status: Chronic Current regimen is TTS at [facility]. Recent stay at [facility], last HD session was at [facility]. Discharged 03/06/19, no HD since. Noncompliant with fluid gains, HD sessions, and medication regimens. Avoid nephrotoxins and renal dose all medications. Strict I/O Daily weights. Plan for HD tomorrow. (2) Abdominal pain Status: Acute Per primary. Qualifiers: Abdominal location: lower abdomen, unspecified Qualified Code(s): R10.30 - Lower abdominal pain, unspecified (3) Hypoglycemia Status: Acute Current glucose 187, stable. Monitor for signs of hypoglycemia. (4) Acute anemia Status: Acute Hgb 7.7, not goal. Hgb goal is 10-11. Iron profile ordered. History of Present Illness - Reason for Consult Consult date: 03/11/19 end stage renal disease Requesting physician: Iman Addison - Chief Complaint weakness, unresponsive at home - History of Present Illness Ms. Alexis is a 44 year old female who presented to ED with weakness and hypoglycemia. She was found unresponsive at home, was still able to protect airway, did not lose consciousness. PMH: HTN, DM, COPD, GIB, cardiomyopathy, ESRD on TTS dialysis at [facility]. Patient is grossly noncompliant with fluid gains and HD session. Last session was in facility at [facility]. She was disch arged from [facility] on 03/06/19 and has not had HD since. 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 Although patient does have signs of hypervolemia, patient is not requiring urgent HD. No issues with breathing at this time. Electrolytes stable. Plan for HD tomorrow. Patient lives at home with . Denies tobacco use, etoh, or illicit drug use. No FH of CKD of HD. 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 Past Med Surg Social Fam HX - Past Medical History Medical history: asthma, atrial fibrillation, cardiomyopathy, diabetes, dialysis, GI bleed, hyperlipidemia, hypertension, renal disease, thyroid disease Additional medical history: T TH S dialysis Psychiatric history: no psych history - Past Surgical History Surgical History: appendectomy, cholecystectomy, thyroidectomy, transplant, other Additional surgical history: KIDNEY TRANSPLANT 2007, TUBAL LIGATION, left antecubital AV fistula, multiple surgical and endovascular interventions for the left antecubital AV fistula, and placement of a left upper arm AV shunt - Social History Smoking Status: Never smoker Smokeless Tobacco Status: No Alcohol use: none Drug use: none - Family History Father Adopted: No Family Member Ethnicity: Non- Living Status: Hx Family Cardiac Disorders: Yes Hx Family Respiratory Disorders: Yes Hx Family Cancer: Yes Hx Family GI Disorders: No Hx Family Endocrine Disorder: Yes Hx Family Neuromuscular Disorders: No Hx Family Neurologic Disorders: No Hx Family HEENT Disorders: No Hx Family Autoimmune Disorders: No Mother Adopted: No Living Status: Hx Family Cardiac Disorders: Yes Hx Family Respiratory Disorders: No Hx Family Cancer: Yes Hx Family GI Disorders: No Hx Family Endocrine Disorder: No Hx Family Neuromuscular Disorders: No Hx Family Neurologic Disorders: No Hx Family HEENT Disorders: No Hx Family Autoimmune Disorders: No Medications and Allergies Artificial Tears SOLN [Akwa Tears] 1 drop BOTH EYES QID bottle 03/20/19 [Rx] Ondansetron [Zofran] 4 mg IVP Q8HR PRN vial 03/20/19 [Rx] Scopolamine Patch [Transderm-Scop] 1.5 mg TD Q72H patch.td72 03/20/19 [Rx] Allergy/AdvReac Type Severity Reaction Status Date / Time morphine Allergy See Verified 02/22/19 22:25 Comments Warfarin [From Coumadin] Allergy Anaphylaxis Verified 02/22/19 22:25 heparin AdvReac Severe Unresponsiv Verified 02/22/19 22:25 e Review of Systems All Systems review (narrative): The remainder of the systems are negative. Constitutional: fatigue, no chills, no fever(s) Cardiovascular: no chest pain, no dyspnea, no edema Respiratory: no hemoptysis Gastrointestinal: no diarrhea, no nausea, no vomiting Exam - Vital Signs Vital signs: Initial Vital Signs Temp Pulse Resp BP Pulse Ox 0 F L 99 16 140/100 100 03/11/19 13:51 03/11/19 13:51 03/11/19 13:51 03/11/19 13:51 03/11/19 13:51 Vital Signs - Last 8 Hours Temp Pulse Resp BP Pulse Ox 03/11/19 18:56 97.6 F 69 16 93/45 98 03/11/19 17:07 94.8 F L 61 14 119/99 100 03/11/19 15:00 92.5 F L 59 14 102/72 100 03/11/19 13:51 0 F L 99 16 140/100 100 Intake and Output 03/11/19 03/11/19 03/11/19 07:59 15:59 23:59 Other: Weight 81.284 kg Blood Glucose* 91 74 Patient Weight 03/11/19 23:59 Weight 81.284 kg - General Appearance General appearance: chronically ill, frail EENT: ATNC, hearing intact, vision intact Neck: supple Respiratory: clear Cardiology: edema (Noted mostly to abdomen area. Generalized edema noted to all four extremities.), normal S1, normal S2 - Dialysis Access Dialysis Vascular Access: Arteriovenous Fistula thrill: Yes bruit: Yes Gastrointestinal: normoactive bowel sounds, no tenderness, no guarding Integumentary: no rash, warm and dry Additional Comments: Pt states she has wound to abdomen, she does not want the dressing removed at this time. Neurologic: alert and oriented x3 Musculoskeletal: no deformities, no erythema Psychiatric: mood/affect appropriate, cooperative Results - Lab Results 03/11/19 18:46 03/11/19 14:51 Most recent lab results 03/11/19 14:51 Calcium 7.4 L Consult Discharge Plan - Plan Referrals: Peter Vicente DO [Primary Care Provider] - <Saran Wei - Last Filed: 03/24/19 15:18> Date of Encounter: 03/11/19 Assessment and Plan (1) Abdominal pain Status: Acute Qualifiers: Abdominal location: lower abdomen, unspecified Qualified Code(s): R10.30 - Lower abdominal pain, unspecified (2) Hypoglycemia Status: Acute (3) ESRD (end stage renal disease) on dialysis Status: Chronic (4) Acute anemia Status: Acute Exam - Vital Signs Vital signs: Initial Vital Signs Temp Pulse Resp BP Pulse Ox 0 F L 99 16 140/100 100 03/11/19 13:51 03/11/19 13:51 03/11/19 13:51 03/11/19 13:51 08/26/19 13:51 Results - Lab Results 03/19/19 06:45 03/19/19 06:45 - Attending Attestation I examined this patient and my medical decision-making was reviewed with the Resident Physician/[facility] DISPENSER. I agree with the documented findings, disposition and treatment plan as described except to the extent set forth below. 44 y o female with PMH of ESRD on HD with history of noncompliance with treatments and diet, DM, HTN and cardiomyopathy admitted with weakness and persistent hypoglycemia. Pt was just discharged from [facility] and has missed 2 HD sessions since then and has had extremely poor po intake since as well. Pt is also noted hypotensive. On exam: Gen : chronic ill appearing, very lethargic, Lungs with good aretaion but decreased at bases bilat likely due to poor effort. Heart S1S2, Abd soft with multiple scarred area with pockets of edema, EXT with no LE edema and neuro opens eyes and answers yes/no with head shakes but too weak for more. Need to establish goals of care. No need for HD today, very concerned about her hypotension and hypoglycemia. 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
[2019-03-11] MEDS: Insulin LISPRO 300 UNITS/3 ML VIAL SQ SCH (20:55)
--- NOTE | 2019-03-12 00:33 | Electrocardiograph Report ---
Paola E-Duction Test Date: 2019-03-11 Pat Name: 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
[2019-03-12 04:19] LABS: INR 2.9
[2019-03-12 04:22] LABS: Activated Partial Thrombo Time 46.3 Seconds (26.0-36.0)
[2019-03-12 04:33] LABS: Albumin 1.9 g/dL (3.5-5.7); Albumin/Globulin Ratio 0.7 (1.1-2.2); Bilirubin,Total 0.8 mg/dL (0.3-1.0); Calcium 7.5 mg/dL (8.6-10.3); Chol/HDL Ratio 6.4 (0-4.9); Globulin 2.8 g/dL (2.4-3.5); Magnesium 1.7 mg/dL (1.6-2.6); Potassium 4.9 mEq/L (3.5-5.1); Total Protein 4.7 g/dL (6.4-8.9)
[2019-03-12 04:40] LABS: Iron 59 mcg/dL (50-170); Transferrin < 75 mg/dL (203-362)
[2019-03-12 05:36] LABS: Folate 17.7 ng/mL (3.0-16.0)
[2019-03-12] MEDS: Insulin LISPRO 300 UNITS/3 ML VIAL SQ SCH ×4 (08:41→21:22)
[2019-03-12] MEDS: Dextrose Gel 15 GM/37.5 ML TUBE PO PRN ×2 (08:52→10:38)
[2019-03-12] MEDS ORDERED: 0.9 % Sodium Chloride 1,000 ML PRIME SCH (09:00)
[2019-03-12] MEDS: Albumin 25% 12.5gm/50mL 25.0 GM/100 ML IV.SOLN ONE ×2 (10:15→10:40)
--- NOTE | 2019-03-12 10:21 | Nephrology Progress Note ---
Date of Encounter: 03/12/19 Time of Encounter: 10:18 - Assessment and Plan (1) ESRD (end stage renal disease) on dialysis Current Visit: Yes Status: Chronic Current regimen is TTS at [facility]. Recent stay at [facility], last HD session was at [facility]. Discharged 03/06/19, no HD since. Noncompliant with fluid gains, HD sessions, and medication regimens. Avoid nephrotoxins and renal dose all medications. Strict I/O Daily weights. Unable to run HD due to hypotension 60/40's and blood sugars in the 50s after PO dextrose. (2) Hypoglycemia Current Visit: Yes Status: Acute Blood sugars in the 50's. Monitor for signs of hypoglycemia. (3) Abdominal pain Current Visit: No Status: Acute Per primary. Qualifiers: Abdominal location: lower abdomen, unspecified Qualified Code(s): R10.30 - Lower abdominal pain, unspecified (4) Acute anemia Current Visit: No Status: Acute Hgb 7.7, not goal. Hgb goal is 10-11. Iron profile ordered. Subjective Principal diagnosis: weakness, hypoglycemia Interval history: Pt seen and examined. Attempting to start HD. BP is 60/40 Albumin is being administered. Spoke with Dr. Fenton, she is going to come see patient. Denies chest pain or shortness of breath. Denies nausea, vomiting or diarrhea. Objective - Vital Signs Vital signs: Vital Signs Temp Pulse Resp BP Pulse Ox 03/12/19 08:29 99.1 F 78 18 117/68 93 03/12/19 04:17 99.2 F 73 18 112/64 94 03/12/19 00:04 98.7 F 73 16 94/62 96 03/11/19 21:21 98 03/11/19 18:56 97.6 F 69 16 93/45 98 03/11/19 17:07 94.8 F L 61 14 119/99 100 03/11/19 15:00 92.5 F L 59 14 102/72 100 03/11/19 13:51 0 F L 99 16 140/100 100 Intake and Output 03/11/19 03/12/19 03/12/19 23:59 07:59 15:59 Intake Total 240 / 240 120 / 180 60 / 180 Output Total 0 / 0 Balance 240 / 240 120 / 180 60 / 180 Intake: Oral 240 / 240 120 / 180 60 / 180 Output: Urine 0 / 0 Other: Meal Breakfast Percent of Meal Consumed 0% Weight 82.5 kg Blood Glucose* 67 194 56 Patient Weight 03/12/19 23:59 Weight 82.5 kg - General Appearance General appearance: Present: moderate distress, chronically ill, frail EENT: Present: ATNC, hearing intact, vision intact Neck: Present: supple Respiratory: Present: clear Cardiology: Present: edema (Anasarca), normal S1, normal S2 Dialysis Vascular Access: Arteriovenous Fistula thrill: Yes bruit: Yes Gastrointestinal: Present: normoactive bowel sounds, no tenderness, no guarding Integumentary: Present: no rash, warm and dry Neurologic: Present: alert and oriented x3 Musculoskeletal: Present: no deformities, no erythema Psychiatric: Present: mood/affect appropriate, cooperative - Lab 03/11/19 18:46 03/12/19 03:58 Most recent lab results 03/12/19 03:58 Calcium 7.5 L Magnesium 1.7 Consult Discharge Plan - Plan Referrals: Peter Vicente DO [Primary Care Provider] -
[2019-03-12] MEDS: 0.9 % Sodium Chloride 250 ML IVC PRN ×2 (11:25→15:13)
[2019-03-12] MEDS: *HR* Dextrose 50 % in Water (Syg) 50 ML SYRINGE IVP PRN (11:30)
[2019-03-12] MEDS: Calcium Acetate 667 MG CAPSULE PO SCH ×2 (11:44→16:22)
[2019-03-12] MEDS: Gentamicin Oint 15 GM TUBE TP SCH (12:19)
[2019-03-12] MEDS: DAPTOmycin 300 MG in 0.9 % Sodium Chloride 100 ML IVPB SCH (16:23)
--- NOTE | 2019-03-12 17:14 | Internal Med Progress Note ---
Hospitalist Progress Note - Encounter Date of Encounter: 03/12/19 Time of Encounter: 07:15 - Subjective Interval History: Patient seen and examined. She is currently both received dialysis. For her blood pressure was 60/40 and blood glucoses in the 50s. Patient states that she feels very weak. She denies palpitations, dizziness, and diaphoresis - Exam Vitals: Temp Pulse Resp BP Pulse Ox 36.8 C 82 14 117/49 97 03/12/19 16:41 03/12/19 16:41 03/12/19 16:41 03/12/19 16:41 03/12/19 16:41 Exam: GENERAL: Lethargic. Not in distress. Oriented HEENT: EOMI, PERRLA MOUTH: Moist oral mucosa NECK:No JVD, No lymph nodes. 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 SKIN: Normal color, no rahses, no lesions EXTREMITIES: No deformity, no edema, no tenderness, no joint swelling or clubbing NEUROLOGICAL: Normal cognition, normal motor and sensory exam. - Assessment and Plan (1) Hypoglycemia Current Visit: Yes Status: Acute Assessment and Plan: Patient presents with recurrent hypoglycemia. 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 Patient however denies classic hypoglycemic symptoms expected in the [place]. He was transferred to [facility] on her last visit on account of recurrent hypoglycemia and abdominal wall calciphylaxis. Definite cause of hypoglycemia yet to be determined We will continue to investigate the cause of hypoglycemia. We will give IV dextrose saline 75 mL per hour. (2) ESRD (end stage renal disease) on dialysis Current Visit: No Status: Chronic Assessment and Plan: Nephrology on board Dialysis postponed on account of hypotension and hypoglycemia. We will continue to monitor. (3) Hypertension Current Visit: No Status: Chronic Assessment and Plan: We will hold home medications at the moment because patient's blood pressure is running low (4) COPD (chronic obstructive pulmonary disease) Current Visit: No Status: Acute Assessment and Plan: No wheezes on physical exam We will give as needed breathing treatments (5) Anemia Current Visit: No Status: Chronic Assessment and Plan: Patient has ESRD and calciphylaxis of anterior abdominal wall Anemia is likely related to renal disease and chronic inflammation We will monitor for signs of active bleeding. (6) Atrial fibrillation Current Visit: Yes Status: Acute Assessment and Plan: Patient on eliquis. Resume rate control meds - Time Spent with Patient Total time spent is greater than 50% in coordination of care (as documented) at patient's floor/unit and/or counseling patient: Internal Medicine: Result - Labs CBC & Chem 7: 03/11/19 18:46 03/12/19 03:58 Labs: Short CBC 03/11/19 Range/Units 18:46 WBC 9.1 (4.3-11.1) K/mcL Hgb 7.7 L (11.5-15.4) g/dL Hct 23.6 L (35.3-44.9) % Plt Count 61 L (140-400) K/mcL Neutrophils # 7.0 (1.6-8.9) K/mcL BMP 03/12/19 03:58 Sodium 141 Potassium 4.9 Chloride 100 Carbon Dioxide 18 L BUN 33 H Creatinine 5.70 H Glucose 43 L Calcium 7.5 L Cardiac Enzymes 03/11/19 03/11/19 03/12/19 Range/Units 18:46 23:20 03:58 Troponin I 0.03 0.03 0.03 (< 0.04) ng/mL Liver Function 03/12/19 Range/Units 03:58 Total Bilirubin 0.8 (0.3-1.0) mg/dL AST 17 (13-39) Units/L ALT 3 L (7-52) Units/L Alkaline Phosphatase 111 H (34-104) Units/L Albumin 1.9 L (3.5-5.7) g/dL - ABG Interpretation ABG results: PT/INR, D-dimer PT 33.0 Seconds (9.4-12.1) H 03/12/19 03:58 Consult Discharge Plan - Plan Referrals: Peter Vicente DO [Primary Care Provider] - ____ (3) Hypertension Qualifiers: Hypertension type: essential hypertension Qualified Code(s): I10 - Essential (primary) hypertension (4) COPD (chronic obstructive pulmonary disease) Qualifiers: COPD type: unspecified COPD Qualified Code(s): J44.9 - Chronic obstructive pulmonary disease, unspecified (5) Anemia Qualifiers: Anemia type: due to chronic kidney disease Chronic kidney disease stage: on chronic dialysis Qualified Code(s): N18.6 - End stage renal disease; D63.1 - Anemia in chronic kidney disease; Z99.2 - Dependence on renal dialysis
[2019-03-12] MEDS: Apixaban 2.5 MG TABLET PO SCH (21:28)
[2019-03-12] MEDS: Budesonide/Formoterol 80/4.5 1 PUFF INH IH SCH (23:58)
[2019-03-13] MEDS: D5% in Water 1,000 ML IVC SCH ×2 (01:12→17:45)
[2019-03-13 04:12] LABS: Hemoglobin 6.2 g/dL (11.5-15.4)
[2019-03-13 04:14] LABS: Hematocrit 18.9 % (35.3-44.9); Immature Platelets 5.2 % (1.1-6.1); Mean Corpuscular HGB Conc 32.8 g/dL (31.6-35.5); Mean Corpuscular Hemoglobin 32.6 pg (28.0-33.3); Mean Corpuscular Volume 99.5 fL (83.0-100.0); Mean Platelet Volume 10.8 fL (9.4-12.4); Red Blood Count 1.9 M/mcL (3.82-4.97); Red Cell Distribution Width 20.2 % (11.5-14.5); White Blood Count 7.5 K/mcL (4.3-11.1)
[2019-03-13 04:33] LABS: Calcium 7.7 mg/dL (8.6-10.3); Potassium 5.3 mEq/L (3.5-5.1)
[2019-03-13] MEDS: Budesonide/Formoterol 80/4.5 1 PUFF INH IH SCH ×2 (07:39→22:09)
[2019-03-13] MEDS: Insulin LISPRO 300 UNITS/3 ML VIAL SQ SCH ×4 (08:01→20:15)
[2019-03-13] MEDS: Calcium Acetate 667 MG CAPSULE PO SCH ×3 (08:02→16:27)
[2019-03-13] MEDS: Apixaban 2.5 MG TABLET PO SCH (08:03)
[2019-03-13] MEDS: Metoprolol XL (24 HR) Succ 25 MG TAB.ER.24H PO SCH (08:24)
[2019-03-13] MEDS ORDERED: 0.9 % Sodium Chloride 250 ML IVC PRN (08:28)
--- NOTE | 2019-03-13 08:42 | Internal Med Progress Note ---
Hospitalist Progress Note - Encounter Date of Encounter: 03/13/19 Time of Encounter: 10:00 - Subjective Interval History: No acute events overnight - Exam Vitals: Temp Pulse Resp BP Pulse Ox 98.6 F 92 18 109/44 98 03/13/19 07:58 03/13/19 07:58 03/13/19 07:58 03/13/19 07:58 03/13/19 07:58 Exam: GENERAL: Lethargic. Not in distress. Oriented HEENT: EOMI, PERRLA MOUTH: Moist oral mucosa NECK:No JVD, No lymph nodes. 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 SKIN: Normal color, no rahses, no lesions EXTREMITIES: No deformity, no edema, no tenderness, no joint swelling or clubbing NEUROLOGICAL: Normal cognition, normal motor and sensory exam. - Assessment and Plan (1) Hypoglycemia Current Visit: Yes Status: Acute Assessment and Plan: Patient presents with recurrent hypoglycemia. Per family patient doesn't eat and this may be the cause of her hypoglycemia Continue renal diet. Dextrose as needed. 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 Transfuse PRBC. Start on protonix Gi consulted and appreciate recs (3) ESRD (end stage renal disease) on dialysis Current Visit: No Status: Chronic Assessment and Plan: Nephrology on board Dialysis postponed on account of hypotension and hypoglycemia. We will continue to monitor. (4) Hypertension Current Visit: No Status: Chronic Assessment and Plan: We will hold home medications at the moment because patient's blood pressure is running low (5) COPD (chronic obstructive pulmonary disease) Current Visit: No Status: Acute Assessment and Plan: No wheezes on physical exam We will give as needed breathing treatments (6) Atrial fibrillation Current Visit: Yes Status: Acute Assessment and Plan: Hold eliquis for acute anemia. Resume rate control meds - Time Spent with Patient Total time spent is greater than 50% in coordination of care (as documented) at patient's floor/unit and/or counseling patient: Internal Medicine: Result - Labs CBC & Chem 7: 03/13/19 14:15 03/13/19 04:00 Labs: Short CBC 03/13/19 Range/Units 04:00 WBC 7.5 (4.3-11.1) K/mcL Hgb 6.2 L D (11.5-15.4) g/dL Hct 18.9 L (35.3-44.9) % Plt Count 47 L (140-400) K/mcL BMP 03/13/19 04:00 Sodium 141 Potassium 5.3 H Chloride 98 Carbon Dioxide 19 L BUN 35 H Creatinine 5.75 H Glucose 76 Calcium 7.7 L - ABG Interpretation ABG results: PT/INR, D-dimer PT 33.0 Seconds (9.4-12.1) H 03/12/19 03:58 Consult Discharge Plan - Plan Referrals: Peter Vicente DO [Primary Care Provider] - (2) Anemia Qualifiers: Anemia type: due to chronic kidney disease Chronic kidney disease stage: on c hronic dialysis Qualified Code(s): N18.6 - End stage renal disease; D63.1 - Anemia in chronic kidney disease; Z99.2 - Dependence on renal dialysis (4) Hypertension Qualifiers: Hypertension type: essential hypertension Qualified Code(s): I10 - Essential (primary) hypertension (5) COPD (chronic obstructive pulmonary disease) Qualifiers: COPD type: unspecified COPD Qualified Code(s): J44.9 - Chronic obstructive pulmonary disease, unspecified (6) Atrial fibrillation Qualifiers: Qualified Code(s): I48.0 - Paroxysmal atrial fibrillation
[2019-03-13] MEDS: Pantoprazole 40 MG VIAL IVP SCH ×2 (10:00→16:27)
[2019-03-13] MEDS: Gentamicin Oint 15 GM TUBE TP SCH (10:05)
--- NOTE | 2019-03-13 11:27 | Gastroenterology Consult Note ---
<Andreea Springer - Last Filed: 03/13/19 14:43> Date of Encounter: 03/13/19 Time of Encounter: 11:27 - Assessment and plan (1) Anemia Current Visit: Yes Status: Acute Assessment and plan: Hemoglobin at presentation was 7.4 this morning hemoglobin 6.2 History of ESRD on dialysis, currently having 1 unit of blood transfused Repeat hemoglobin 9.1 after 1 unit of transfusion Hemoccult negative She is on eliquis which is likely contributory additionally likely chronic due to ESRD Iron, B12 and folate within normal limits Does have history of gastritis Given history of gastritis most recent EGD on 04/16/18 showing gastritis Recommend decreasing protonic to daily instead of twice a day given history of ESRD Qualifiers: Anemia type: due to chronic kidney disease Chronic kidney disease stage: on chronic dialysis Qualified Code(s): N18.6 - End stage renal disease; D63.1 - Anemia in chronic kidney disease; Z99.2 - Dependence on renal dialysis - Time Spent With Patient Total time spent is greater than 50% in coordination of care (as documented) at patient's floor/unit and/or counseling patient: GI History of Present Illness - Data of Consult Requesting Physician: Deborah Cancino MD - Consult Narrative History of present illness: Ms. Alexis is a 44 year old female with past medical history of asthma, A. fib, cardiomegaly, diabetes, ESRD on dialysis, hyperlipidemia, hypertension, hypothyroidism who presented to the ED on 03/11/19 due to episode of unresponsiveness reportedly had a glucose of 54 which improved with dextrose infusion. She has frequent noncompliance with dialysis and had missed 2 of her sessions causing weakness and fluid retention. On admission showed a CT head which showed no acute abnormality. This morning she was seen at bedside and information could not be discerned as patient was significantly incoherent and was not a good historian. She denied history of chronic anemia, denied any hematemesis or hematochezia. Reported previously had an EGD on 04/26/18 which showed diffuse mild inflammation of the entire stomach with biopsies taken. Additionally had mild Julien C during and received dilation through the scope. Additionally had a colonoscopy on 02/14/18 which showed a few diverticula in sigmoid colon. Pathology report of EGD biopsy one year ago showed esophagitis with no dysplasia and no H. pylori. GI was consulted due to anemia with thrombocytopenia. Past Med Surg Social Fam HX - Past Medical History Medical history: asthma, atrial fibrillation, cardiomyopathy, diabetes, dialysis, GI bleed, hyperlipidemia, hypertension, renal disease, thyroid disease Additional medical history: T S dialysis Psychiatric history: no psych history - Past Surgical History Surgical History: appendectomy, cholecystectomy, thyroidectomy, transplant, other Additional surgical history: KIDNEY TRANSPLANT 2007, TUBAL LIGATION, left antecubital AV fistula, multiple surgical and endovascular interventions for the left antecubital AV fistula, and placement of a left upper arm AV shunt - Social History Smoking Status: Never smoker Smokeless Tobacco Status: No Alcohol use: none Drug use: none - Family History Father Adopted: No Family Member Ethnicity: Non- Living Status: Hx Family Cardiac Disorders: Yes Hx Family Respiratory Disorders: Yes Hx Family Cancer: Yes Hx Family GI Disorders: No Hx Family Endocrine Disorder: Yes Hx Family Neuromuscular Disorders: No Hx Family Neurologic Disorders: No Hx Family HEENT Disorders: No Hx Family Autoimmune Disorders: No Mother Adopted: No Living Status: Hx Family Cardiac Disorders: Yes Hx Family Respiratory Disorders: No Hx Family Cancer: Yes Hx Family GI Disorders: No Hx Family Endocrine Disorder: No Hx Family Neuromuscular Disorders: No Hx Family Neurologic Disorders: No Hx Family HEENT Disorders: No Hx Family Autoimmune Disorders: No - Gastrointestinal Gastrointestinal: Absent: abdominal pain, diarrhea, hematochezia, melena, nausea - Constitutional Constitutional: fatigue, no weight loss - EENT Nose, mouth and throat: Absent: dysphagia, sore throat - Cardiovascular Cardiovascular ROS: Absent: chest pain, irregular heart rhythm, palpitations - Respiratory Respiratory IM: Absent: cough, dyspnea, wheezing - Neurological ROS Neurological GI: Absent: headache(s), weakness - Hematologic/Lymphatic Hematologic/Lymphatic pediatric: Absent: easy bleeding - Musculoskeletal Musculoskeletal ROS GI: Absent: back pain, joint swelling - Integumentary Integumentary GI: Absent: jaundice, pruritis, rash - Constitutional Vitals: Temp Pulse Resp BP Pulse Ox 98.6 F 92 18 109/44 98 03/13/19 07:58 03/13/19 07:58 03/13/19 07:58 03/13/19 07:58 03/13/19 07:58 General appearance: Present: no acute distress. Absent: answers questions appropriately - Head Head exam: Present: atraumatic, normal inspection - Eye Eye exam: Present: EOMI. Absent: conjunctival injection - ENT ENT exam: Present: mucous membranes moist, normal oropharynx - Neck Neck exam general surgery: Present: full ROM, trachea midline - Respiratory Respiratory exam: Present: CTAB. Absent: rhonchi, wheezes - Cardiovascular Cardiovascular exam: Present: RRR, +S1, +S2 - GI/Abdominal GI/Abdominal exam: Present: soft. Absent: firm, tenderness Additional comments: Has wrapping around left lower quadrant abdomen area, reports skin changes due to a wound developing - Psychiatric Psychiatric exam: Present: agitated, flat affect - Skin Skin exam: Present: cyanosis (Area of some petechia and cyanosis noted on arms), dry Results - Labs CBC & Chem 7: 03/13/19 14:15 03/13/19 04:00 Labs: Last Result 03/13/19 03/13/19 04:00 09:37 Calcium 7.7 L Stool Occult Blood Negative Entire Visit 03/13/19 04:00 Hgb 6.2 L D Hct 18.9 L - ABG ABG results: PT/INR, D-dimer PT 33.0 Seconds (9.4-12.1) H 03/12/19 03:58 Consult Discharge Plan - Plan Referrals: Peter Vicente DO [Primary Care Provider] - <Julio Mejia - Last Filed: 03/19/19 05:45> Date of Encounter: 03/13/19 - Time Spent With Patient Total time spent is greater than 50% in coordination of care (as documented) at patient's floor/unit and/or counseling patient: GI History of Present Illness - Data of Consult Requesting Physician: Deborah Cancino MD - Consult Narrative History of present illness: Ms. Alexis is a 44 year old female - Constitutional Vitals: Temp Pulse Resp BP Pulse Ox 98.1 F 92 8 159/96 100 03/19/19 00:00 03/19/19 04:00 03/19/19 04:00 03/19/19 04:00 03/19/19 04:00 Results - Labs CBC & Chem 7: 03/18/19 18:15 03/19/19 00:00 Labs: Last Result 03/19/19 03/19/19 00:00 00:00 Calcium 9.0 Iron 84 % Saturation TNP Transferrin < 75 L Ferritin > 1500 H Entire Visit 03/18/19 03/19/19 03/19/19 18:15 00:00 00:00 Hgb 6.9 L Hct 21.9 L PT 19.1 H Ferritin > 1500 H Total Bilirubin AST ALT 03/19/19 00:00 Hgb Hct PT Ferritin Total Bilirubin 1.7 H AST 14 ALT < 3 L - ABG ABG results: ABG ABG pH 7.31 pH Units (7.32-7.45) L 03/19/19 05:36 ABG pCO2 40 mmHg (35-45) 03/19/19 05:36 ABG pO2 154 mmHg (85-104) H 03/19/19 05:36 ABG O2 Saturation 99 % (95-98) H 03/19/19 05:36 PT/INR, D-dimer PT 19.1 Seconds (9.4-12.1) H 03/19/19 00:00 - Impressions Impressions Head CT 03/18/19 07:55 IMPRESSION: No acute intracranial abnormality. Sequela of chronic small vessel ischemic change. Increasing opacification of the middle ear canal and mastoid air cells on the left and the right mastoid air cells. D/ / 03/18/2019 11:24:53 Ranulfo Mccurdy MD / earnold Interpreting Provider: Ranulfo Mccurdy MD - Attending Attestation Ms. Alexis is a 44 year old female with past medical history of asthma, A. fib, cardiomegaly, diabetes, ESRD on dialysis, hyperlipidemia, hypertension, hypothyroidism who presented to the ED on 03/11/19 due to episode of unresponsiveness reportedly had a glucose of 54 which improved with dextrose infusion. She has frequent noncompliance with dialysis and had missed 2 of her sessions causing weakness and fluid retention.Work up in progress. I examined this patient and my medical decision-making was reviewed with the Resident Physician. I agree with the documented findings, disposition and treatment plan as described except to the extent set forth below.
[2019-03-13] MEDS: *HR* Dextrose 50 % in Water (Syg) 50 ML SYRINGE IVP PRN ×2 (11:39→17:52)
[2019-03-13 12:57] LABS: Adenovirus F 40/41 PCR Not detected (Not detect); Astrovirus PCR Not detected (Not detect); C.difficile Toxin A/B Gene PCR Not detected (Not detect); Campylobacter by PCR Not detected (Not detect); Cryptosporidium by PCR Not detected (Not detect); Cyclospora cayetanensis PCR Not detected (Not detect); E. coli O157 by PCR Not detected (Not detect); Entamoeba histolytica PCR Not detected (Not detect); Enteroaggregative E.coli(EAEC) Not detected (Not detect); Enteropathogenic E.coli(EPEC) Not detected (Not detect); Enterotoxigenic E.coli (ETEC) Not detected (Not detect); Giardia lamblia PCR Not detected (Not detect); Norovirus GI/GII PCR Not detected (Not detect); Plesiomonas shigelloides PCR Not detected (Not detect); Rotavirus A PCR Not detected (Not detect); Salmonella PCR Not detected (Not detect); Sapovirus PCR Not detected (Not detect); Shig/EnteroinvasiveE coli EIEC Not detected (Not detect); Shigalike tox-prod E coli STEC Not detected (Not detect); Vibrio PCR Not detected (Not detect); Vibrio cholerae PCR Not detected (Not detect); Yersinia enterocolitica PCR Not detected (Not detect)
[2019-03-13 14:27] LABS: Hematocrit 26.7 % (35.3-44.9)
[2019-03-13 14:28] LABS: Hemoglobin 9.1 g/dL (11.5-15.4)
--- NOTE | 2019-03-13 16:25 | Nephrology Progress Note ---
Date of Encounter: 03/13/19 Time of Encounter: 12:00 - Assessment and Plan (1) ESRD (end stage renal disease) on dialysis Current Visit: Yes Status: Chronic Will attempt HD today but very hesitant due to persistent hypotension Lytes stable Goals of care needs to be established as pt has not been eating for weeks, confirmed by live in boyfriend (2) Hypoglycemia Current Visit: Yes Status: Acute Blood sugars in the 50's. Monitor for signs of hypoglycemia. Encouraged po intake, dietitian on board (3) Acute anemia Current Visit: No Status: Acute Hgb 6.2, not goal. Will dialyze long enough to transfuse 2units pRBCs Hgb goal is 10-11. (4) Abdominal pain Current Visit: No Status: Acute Per primary. Qualifiers: Abdominal location: lower abdomen, unspecified Qualified Code(s): R10.30 - Lower abdominal pain, unspecified Subjective Principal diagnosis: weakness, hypoglycemia Interval history: Pt seen and examined on HD very lethargic, hypotensive and hypoglycemic. Hd aborted yesterday within minutes due to the above symptoms. Objective - Vital Signs Vital signs: Vital Signs Temp Pulse Resp BP Pulse Ox 03/13/19 14:40 98.3 F 18 111/67 03/13/19 14:15 99/44 03/13/19 14:00 103/55 03/13/19 13:45 103/55 03/13/19 13:30 96/49 03/13/19 13:15 99/54 03/13/19 13:10 98.1 F 119 16 113/44 03/13/19 13:00 104/51 03/13/19 12:45 109/43 03/13/19 12:39 98.4 F 133 16 113/42 03/13/19 12:34 98.4 F 103 18 126/37 03/13/19 12:30 100/44 03/13/19 12:24 98.7 F 120 16 117/54 03/13/19 12:15 101/42 03/13/19 12:13 98.7 F 124 16 117/54 03/13/19 12:12 98.4 F 106 16 92/49 03/13/19 12:00 109/49 03/13/19 11:55 98.6 F 106 16 113/44 91 03/13/19 11:45 106/54 03/13/19 11:40 98.4 F 96 16 113/60 03/13/19 11:30 102/44 03/13/19 11:15 98.2 F 16 96/49 03/13/19 07:58 98.6 F 92 18 109/44 98 03/13/19 07:46 20 97 03/13/19 03:29 99.1 F 90 20 97/57 97 03/12/19 23:58 19 96 03/12/19 23:46 98.8 F 87 14 140/73 96 03/12/19 21:32 97 03/12/19 20:06 97.7 F 85 16 135/73 97 03/12/19 16:41 98.3 F 82 14 117/49 97 Intake and Output 03/13/19 03/13/19 03/13/19 07:59 15:59 23:59 Intake Total 320 / 2170 1850 / 2170 Output Total 0 / 1300 1300 / 1300 Balance 320 / 870 550 / 870 Intake: IV Fluids 200 / 400 200 / 400 Dextrose 5% 1,000 ML @ 75 mls/ 200 / 300 100 / 300 hr IVC .[id number] [facility] Rx#: [id number] Cubicin 300 MG In 0.9 % Sodium 100 / 100 Chloride 100 ML @ 200 mls/hr IVPB Q48H [facility] Rx#:[id number] Oral 120 / 120 0 / 120 Blood Product 1050 / 1050 Rbcs Leuko Poor As-1 Unit 350 / 350 [id number] Rbcs Leuko Poor As-1 Unit 700 / 700 [id number] Intake, Rinseback and Flushes 600 / 600 Output: Urine 0 / 0 0 / 0 Total Dialysis (HD) Output 1300 / 1300 Other: Stool Size Moderate Stool Consistency loose soft Stool Color Brown # Bowel Movements 2 Weight 81.3 kg Blood Glucose* 178 58 Hemodialysis Net Fluid Removed 0 (mL) Patient Weight 03/13/19 23:59 Weight 81.3 kg - General Appearance General appearance: Present: chronically ill, fatigue, frail EENT: Present: ATNC, mucous membranes moist Neck: Present: no JVD, supple Additional Comments: good areation ant bilat Cardiology: Present: edema (trace LE edema, abdominal), normal S1, normal S2 Dialysis Vascular Access: Arteriovenous Fistula thrill: Yes bruit: Yes Gastrointestinal: Present: no tenderness, no guarding, obese ( dressing noted LLQ) Integumentary: Present: warm and dry Neurologic: Present: no focal deficit Musculoskeletal: Present: no deformities Psychiatric: Present: cooperative - Lab 03/13/19 14:15 03/13/19 04:00 Most recent lab results 03/13/19 04:00 Calcium 7.7 L Consult Discharge Plan - Plan Referrals: Peter Vicente DO [Primary Care Provider] -
[2019-03-13] MEDS ORDERED: Dextrose Gel 15 GM/37.5 ML TUBE PO ONE (17:14)
[2019-03-14] MEDS: Pantoprazole 40 MG VIAL IVP SCH (05:33)
[2019-03-14 05:59] LABS: Hematocrit 22.8 % (35.3-44.9); Hemoglobin 7.6 g/dL (11.5-15.4); Immature Platelets 5.8 % (1.1-6.1); Mean Corpuscular HGB Conc 33.3 g/dL (31.6-35.5); Mean Corpuscular Hemoglobin 31.7 pg (28.0-33.3); Mean Platelet Volume 11.2 fL (9.4-12.4); Red Blood Count 2.4 M/mcL (3.82-4.97); Red Cell Distribution Width 20.6 % (11.5-14.5)
[2019-03-14 06:26] LABS: Calcium 7.5 mg/dL (8.6-10.3); Potassium 4.1 mEq/L (3.5-5.1)
--- NOTE | 2019-03-14 08:00 | Internal Med Progress Note ---
Hospitalist Progress Note - Encounter Date of Encounter: 03/14/19 Time of Encounter: 09:00 - Subjective Interval History: No acute events overnight - Exam Vitals: Temp Pulse Resp BP Pulse Ox 100.1 F H 89 18 100/66 98 03/14/19 07:07 03/14/19 07:07 03/14/19 07:07 03/14/19 07:07 03/14/19 07:07 Exam: GENERAL: Lethargic. Not in distress. Oriented HEENT: EOMI, PERRLA MOUTH: Moist oral mucosa NECK:No JVD, No lymph nodes. 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 SKIN: Normal color, no rahses, no lesions EXTREMITIES: No deformity, no edema, no tenderness, no joint swelling or clubbing NEUROLOGICAL: Normal cognition, normal motor and sensory exam. - Assessment and Plan (1) Sepsis Current Visit: Yes Status: Acute Assessment and Plan: Pt has abdominal wounds with MRSA positive and has been on daptomycin and ertapenem She has episodes of hypotension and fevers that may be secondary to sepsis ID recs appreciated (2) Hypoglycemia Current Visit: Yes Status: Acute Assessment and Plan: Patient presents with recurrent hypoglycemia. Per family patient doesn't eat and this may be the cause of her hypoglycemia Continue renal diet. Dextrose as needed. 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 For EGD today per GI (4) ESRD (end stage renal disease) on dialysis Current Visit: Yes Status: Chronic Assessment and Plan: Nephrology on board Continue dialysis as tolerated (5) Hypertension Current Visit: Yes Status: Chronic Assessment and Plan: Hold antihypertensives due to borderline hypotension (6) COPD (chronic obstructive pulmonary disease) Current Visit: Yes Status: Acute Assessment and Plan: No wheezes on physical exam We will give as needed breathing treatments (7) Atrial fibrillation Current Visit: Yes Status: Acute Assessment and Plan: Hold eliquis for acute anemia. Resume rate control meds DVT Prophylaxis: Eliquis on hold for possible GI bleed - Time Spent with Patient Total time spent is greater than 50% in coordination of care (as documented) at patient's floor/unit and/or counseling patient: Internal Medicine: Result - Labs CBC & Chem 7: 03/14/19 05:15 03/14/19 05:15 Labs: Short CBC 03/13/19 03/14/19 Range/Units 14:15 05:15 WBC 6.0 (4.3-11.1) K/mcL Hgb 9.1 L D 7.6 L D (11.5-15.4) g/dL Hct 26.7 L 22.8 L (35.3-44.9) % Plt Count 37 L (140-400) K/mcL BMP 03/14/19 05:15 Sodium 140 Potassium 4.1 Chloride 99 Carbon Dioxide 26 BUN 23 H Creatinine 3.84 H Glucose 61 L Calcium 7.5 L - ABG Interpretation ABG results: PT/INR, D-dimer PT 33.0 Seconds (9.4-12.1) H 03/12/19 03:58 - Impressions Impressions Chest X-Ray 03/11/19 13:46 IMPRESSION: Vascular congestion. D/ / 03/11/2019 14:34:15 Tarun Childers MD / sanjiv Interpreting Provider: Tarun Childers MD Consult Discharge Plan - Plan Referrals: Peter Vicente DO [Primary Care Provider] - (3) Anemia Qualifiers: Anemia type: due to chronic kidney disease Chronic kidney disease stage: on chronic dialysis Qualified Code(s): N18.6 - End stage renal disease; D63.1 - Anemia in chronic kidney disease; Z99.2 - Dependence on renal dialysis (5) Hypertension Qualifiers: Hypertension type: essential hypertension Qualified Code(s): I10 - Essential (primary) hypertension (6) COPD (chronic obstructive pulmonary disease) Qualifiers: COPD type: unspecified COPD Qualified Code(s): J44.9 - Chronic obstructive pulmonary disease, unspecified (7) Atrial fibrillation Qualifiers: Qualified Code(s): I48.0 - Paroxysmal atrial fibrillation
[2019-03-14] MEDS: Budesonide/Formoterol 80/4.5 1 PUFF INH IH SCH ×2 (08:39→20:03)
[2019-03-14] MEDS: Metoprolol XL (24 HR) Succ 25 MG TAB.ER.24H PO SCH (08:52)
[2019-03-14] MEDS: Insulin LISPRO 300 UNITS/3 ML VIAL SQ SCH (08:56)
[2019-03-14] MEDS: Gentamicin Oint 15 GM TUBE TP SCH (09:21)
[2019-03-14] MEDS: Calcium Acetate 667 MG CAPSULE PO SCH ×3 (09:21→16:45)
[2019-03-14] MEDS ORDERED: D5% in 0.9% NACL 1,000 ML IVC SCH (12:15)
--- NOTE | 2019-03-14 15:18 | Event Note ---
Date of Encounter: 03/14/19 Time of Encounter: 15:16 EGD was planned but could not be completed as the patient was extremely incoherent. She is not safe for an EGD at this time. Not acute blood loss noted and hemoglobin appears at baseline. Anemia likely secondary to ESRD. May benefit from 1 unit of packed red blood cells.
[2019-03-14] MEDS ORDERED: 0.9 % Sodium Chloride 250 ML ONE (16:07)
[2019-03-14 16:34] LABS: ABG Base Excess 3 mEq/L (-2 to 3); ABG HCO3 26 mEq/L (21-27); ABG Oxygen Saturation 93 % (95-98); ABG PCO2 35 mmHg (35-45); ABG PH 7.48 pH Units (7.32-7.45); ABG PO2 61 mmHg (85-104); ABG TCO2 27 mEq/L (20-26)
[2019-03-14] MEDS: *HR* Dextrose 50 % in Water (Syg) 50 ML SYRINGE IVP PRN (16:36)
[2019-03-14] MEDS: DAPTOmycin 300 MG in 0.9 % Sodium Chloride 100 ML IVPB SCH (16:39)
[2019-03-14] MEDS ORDERED: *HR* Promethazine 25 MG/ML VIAL IVP PRN (18:32)
[2019-03-14] MEDS: Ondansetron 4 MG/2 ML VIAL IVP PRN (18:44)
[2019-03-14] MEDS ORDERED: Dextrose Gel 15 GM/37.5 ML TUBE PO ONE (21:05)
[2019-03-14] MEDS: Dextrose Gel 15 GM/37.5 ML TUBE PO PRN (21:07)
[2019-03-14] MEDS ORDERED: Meropenem 500 MG in 0.9 % Sodium Chloride Mini Bag 100 ML IVPB SCH (23:00)
[2019-03-14] MEDS ORDERED: Meropenem 1,000 MG in 0.9 % Sodium Chloride Mini Bag 100 ML IVPB SCH (23:00)
--- NOTE | 2019-03-14 23:14 | Infectious Disease Consult ---
Infectious Disease-Consult - Encounter Date/Time Date of Encounter: 03/14/19 Time of Encounter: 17:00 - Data of Consult Patient: known to practice within the last 3 years Reason for consult: abdominal wounds with MRSA on daptomycin and ertapenem with fevers despite antibiotics Consult date: 03/14/19 Requesting Physician: Deborah Cancino MD Primary Care Provider: Peter Vicente DO - [facility] HPI: Patient is a 44 year old woman known to our service was admitted to the hospital on 03/11 for AMS, we are consulted on 03/14 for abdominal wounds with MRSA on daptomycin and ertapenem with fevers despite antibiotics. Ms. Alexis is a 44-year-old female with a past medical history of end-stage renal disease on hemodialysis Monday//Monday, calciphylaxis, A. fib, cardiomyopathy, diabetes, GI bleed, hyperlipidemia, and hypertension was seen by us in early February for concern for cellulitis of the Left lower abdomen but was transferred to [facility] for myxedema coma. Not sure what' happened at [facility] but we will attempt to get the records. Patient apparently was found unresponsive at home and was brought to the ED. Patient was noted to have hypoglycemia with glucose of 54. Patient also admitted to have missed 2 dialysis sessions. She was noted to be fluid overload and noted to have anemia. Patient was admitted for further eval Since admission, patient was initially hypothermic then had a tmax of 101F. She was tachydaric with no tachypnea. Labs revealed no leukocytosis but she was anemic and had thrombocytopenia. INR 3.5. BUNE 29, Cr 5.12. Potasium within normal limit but she was acidotic. Protein of 4.8. blood cultures x 2 on 03/11 and 03/14 ar michelet growth to date. CXR non revealing. Head CT with no acute process. Patinet was started on Invanz and daptomycin. We were asked to evaluate the patient and make further recommendations. Currently patient appears to be edematous with Anasarca and periorbital edema. She is lethargic and appears ill. Limited exam but she denies PARKER. NO cough or chest pain. she does not produce urine - ROS Review of Systems: 10 point ROS done, negative other for what's in the HPI - Results CBC & Chem 7: 03/14/19 05:15 03/14/19 05:15 - Exam Vitals: Temp Pulse Resp BP Pulse Ox 98.7 F 98 15 142/76 98 03/14/19 20:42 03/14/19 20:42 03/14/19 20:42 03/14/19 20:42 03/14/19 20:42 Exam: GENERAL: Lethargic. Not in distress. Oriented HEENT: EOMI, PERRLA MOUTH: Moist oral mucosa NECK:No JVD, No lymph nodes. 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 SKIN: Normal color, no rahses, calciphalixis lesion left abdomen does not appear infected EXTREMITIES: No deformity, no edema, no tenderness, no joint swelling or clubbing NEUROLOGICAL: lethargic and AMS but awake and alert Albuterol Sulfate [Proventil Inhaler] 2 puff IH Q4HR PRN 03/11/19 [History] Apixaban [Eliquis] 2.5 mg PO BID 03/11/19 [History] Atorvastatin [Lipitor] 40 mg PO HS 03/11/19 [History] Budesonide/Formoterol 80/4.5 [Symbicort 80/4.5] 2 puff IH Q12H 03/11/19 [History] Cyclobenzaprine HCl 10 mg PO TID PRN 03/11/19 [History] Daptomycin [Cubicin Rf] 500 mg IV Q48H 03/11/19 [History] Ertapenem [INVanz] 500 mg IVPB QPM 03/11/19 [History] Esomeprazole Magnesium [Nexium] 40 mg PO DAILY@0730 03/11/19 [History] Levothyroxine Sodium [Levo-T] 300 mcg PO DAILY 03/11/19 [History] Metoprolol Succinate [Toprol Xl] 25 mg PO DAILY 03/11/19 [History] Calcium Acetate [Phos-LO] 1,334 mg PO TIDWM 03/12/19 [History] DAPTOmycin [Cubicin] 300 mg IV Q48H 03/12/19 [History] Sodium Thiosulfate 25 gm IV TUTHSA 03/12/19 [History] Allergy/AdvReac Type Severity Reaction Status Date / Time morphine Allergy See Verified 02/22/19 22:25 Comments Warfarin [From Coumadin] Allergy Anaphylaxis Verified 02/22/19 22:25 heparin AdvReac Severe Unresponsiv Verified 02/22/19 22:25 e - Assessment and Plan (1) Sepsis Current Visit: No Status: Suspected etiology not clear patient appears ill but yet not able to give me a good ROS I dont believe it's due to Calciphilaxis concern for other underlying infection or even noninfectious cause Qualifiers: Sepsis type: sepsis due to unspecified organism Qualified Code(s): A41.9 - Sepsis, unspecified organism SNOMED Code(s): 92132872 (2) Altered mental status Current Visit: No Status: Resolved etiology not clear could be due to underlying infection no signs of encephalitis/meningitis could be due to hypoglycema? hypothyroidism? uremic syndrome? Qualifiers: Altered mental status type: unspecified Qualified Code(s): R41.82 - Altered mental status, unspecified SNOMED Code(s): 453240033 (3) Thrombocytopenia Current Visit: Yes Status: Acute SNOMED Code(s): 336571672 (4) Hypoproteinemia Current Visit: Yes Status: Acute SNOMED Code(s): 2238248 (5) Calciphylaxis Current Visit: No Status: Chronic no obvious infected wounds SNOMED Code(s): 438598098 (6) Anasarca associated with disorder of kidney Current Visit: No Status: Acute SNOMED Code(s): 84931007256311 (7) ESRD (end stage renal disease) on dialysis Current Visit: No Status: Chronic SNOMED Code(s): 604562622 (8) Myxedema Current Visit: No Status: Suspected TSH noted SNOMED Code(s): 22484691 (9) Anemia Current Visit: Yes Status: Chronic s/p iron transfusion going for EGD tomorrow Qualifiers: Anemia type: due to chronic kidney disease Chronic kidney disease stage: on chronic dialysis Qualified Code(s): N18.6 - End stage renal disease; D63.1 - Anemia in chronic kidney disease; Z99.2 - Dependence on renal dialysis SNOMED Code(s): 853254679 - Recommendations Recommendations: I'm not sure we have an obvious source for the fever I'm concerned for non infectious etiology I know this patient for a long time, and today I didnt even recognize her because of the facial swelling get CT chest, abdomen, pelvis not sure what's causing the thrombocytopenia and the anemia i'm still concerned for an endocrine disorder even though TSH is improving I do have a concern for non compliance as well d/c ertapenem d/c daptomycin start vancomycin with pharmacy to dose start meropenem with pharmacy to dose prognosis guarded Past Med Surg Social Fam HX - Past Medical History Medical history: asthma, atrial fibrillation, cardiomyopathy, diabetes, dialysis, GI bleed, hyperlipidemia, hypertension, renal disease, thyroid disease Additional medical history: T dialysis Psychiatric history: no psych history - Past Surgical History Surgical History: appendectomy, cholecystectomy, thyroidectomy, transplant, other Additional surgical history: KIDNEY TRANSPLANT 2007, TUBAL LIGATION, left antecubital AV fistula, multiple surgical and endovascular interventions for the left antecubital AV fistula, and placement of a left upper arm AV shunt - Social History Smoking Status: Never smoker Smokeless Tobacco Status: No Alcohol use: none Drug use: none - Family History Father Adopted: No Family Member Ethnicity: Non- Living Status: Hx Family Cardiac Disorders: Yes Hx Family Respiratory Disorders: Yes Hx Family Cancer: Yes Hx Family GI Disorders: No Hx Family Endocrine Disorder: Yes Hx Family Neuromuscular Disorders: No Hx Family Neurologic Disorders: No Hx Family HEENT Disorders: No Hx Family Autoimmune Disorders: No Mother Adopted: No Living Status: Hx Family Cardiac Disorders: Yes Hx Family Respiratory Disorders: No Hx Family Cancer: Yes Hx Family GI Disorders: No Hx Family Endocrine Disorder: No Hx Family Neuromuscular Disorders: No Hx Family Neurologic Disorders: No Hx Family HEENT Disorders: No Hx Family Autoimmune Disorders: No Consult Discharge Plan - Plan Referrals: Peter Vicente DO [Primary Care Provider] -
[2019-03-15] MEDS ORDERED: Meropenem 500 MG in Water for inj. (sterile) 10 ML IVPB SCH (00:01)
[2019-03-15] MEDS: *HR* Dextrose 50 % in Water (Syg) 50 ML SYRINGE IVP PRN ×5 (01:30→20:17)
--- NOTE | 2019-03-15 01:45 | Nephrology Progress Note ---
Date of Encounter: 03/14/19 Time of Encounter: 12:00 - Assessment and Plan (1) ESRD (end stage renal disease) on dialysis Current Visit: Yes Status: Chronic s/p HD yesterday, tolerated full treatment. Will hold any further treatment today though her typical scheduled day due to hemodynamic instability Lytes stable Fluid restriction advised (2) Hypoglycemia Current Visit: Yes Status: Acute Blood sugars in the 50's on D5W at 100cc/hr for a liter, will encourage limiting fluids given. D10W better if needed Monitor for signs of hypoglycemia. Encouraged po intake, dietitian on board (3) Acute anemia Current Visit: No Status: Acute Hgb dropped from 9.2 to 7.6 post transfusion, EGD planned today Transfusion parameters per primary team Hgb goal is 10-11. (4) Abdominal pain Current Visit: No Status: Acute Per primary. Qualifiers: Abdominal location: lower abdomen, unspecified Qualified Code(s): R10.30 - Lower abdominal pain, unspecified Subjective Principal diagnosis: weakness, hypoglycemia Interval history: Pt seen and examined s/p HD still very lethargic with boyfriend at bedside. Currently NPO awaiting EGD. Objective - Vital Signs Vital signs: Vital Signs Temp Pulse Resp BP Pulse Ox 03/15/19 00:37 98.9 F 93 16 104/68 96 03/14/19 20:42 98.7 F 98 15 142/76 98 03/14/19 20:05 14 98 03/14/19 19:34 99.2 F 104 16 99 03/14/19 16:35 98.4 F 99 16 122/78 100 03/14/19 16:20 98.8 F 101 16 111/57 03/14/19 16:00 100.0 F H 107 16 87/44 97 03/14/19 11:42 100.2 F H 98 18 107/35 98 03/14/19 08:39 16 96 03/14/19 07:07 100.1 F H 89 18 100/66 98 Intake and Output 03/14/19 03/14/19 03/15/19 15:59 23:59 07:59 Intake Total 1000 / 1410 410 / 1410 10 / 10 Balance 1000 / 1410 410 / 1410 10 10 Intake: IV Fluids 1000 / 1000 10 / 10 Dextrose 5% 1,000 ML @ 100 mls/ 1000 / 1000 hr IVC .Q10H PRN Rx#:[id number] Merrem 500 MG In Water for inj. / 10 (sterile) 10 ML @ 200 mls/hr IVPB Q12H [facility] Rx#:[id number] Oral 60 / 60 Blood Product 350 / 350 Rbcs Leuko Poor As-1 Unit 350 / 350 [id number] Other: Stool Size Moderate Stool Consistency loose liquid Stool Color Brown Blood Glucose* 70 56 51 - General Appearance General appearance: Present: chronically ill, fatigue, frail EENT: Present: ATNC, mucous membranes dry Neck: Present: no JVD, supple Respiratory: Present: clear Cardiology: Present: no edema, normal S1, normal S2 Dialysis Vascular Access: Arteriovenous Fistula thrill: Yes bruit: Yes Gastrointestinal: Present: no tenderness, no guarding Additional Comments: wound scars with edema and dressing L sided Integumentary: Present: warm and dry Neurologic: Present: no focal deficit Musculoskeletal: Present: no deformities Psychiatric: Present: depressed, cooperative - Lab 03/14/19 05:15 03/14/19 05:15 Most recent lab results 03/14/19 16:31 ABG pH 7.48 H ABG pCO2 35 ABG pO2 61 L ABG HCO3 26 ABG O2 Saturation 93 L Consult Discharge Plan - Plan Referrals: Peter Vicente DO [Primary Care Provider] -
[2019-03-15] MEDS: D10% in Water 500 ML IVC SCH ×2 (03:10→18:21)
[2019-03-15 03:50] LABS: Hematocrit 28.5 % (35.3-44.9); Hemoglobin 9.3 g/dL (11.5-15.4); Immature Platelets 6.9 % (1.1-6.1); Mean Corpuscular HGB Conc 32.6 g/dL (31.6-35.5); Mean Corpuscular Hemoglobin 31.2 pg (28.0-33.3); Mean Corpuscular Volume 95.6 fL (83.0-100.0); Mean Platelet Volume 11.6 fL (9.4-12.4); Red Blood Count 2.98 M/mcL (3.82-4.97); Red Cell Distribution Width 19.5 % (11.5-14.5); White Blood Count 6.9 K/mcL (4.3-11.1)
[2019-03-15 04:06] LABS: Calcium 7.6 mg/dL (8.6-10.3)
[2019-03-15] MEDS ORDERED: Pantoprazole 40 MG VIAL IVP SCH (07:30)
[2019-03-15] MEDS ORDERED: *HR* Metoprolol 5 MG/5 ML VIAL IVP ONE (07:31)
[2019-03-15] MEDS ORDERED: 0.9 % Sodium Chloride 1,000 ML IV ONE ×2 (07:33→08:02)
[2019-03-15] MEDS ORDERED: *HR* Adenosine 6 MG/2 ML VIAL IVP ONE ×2 (07:37→07:39)
[2019-03-15] MEDS ORDERED: *HR* LORazepam 2 MG/ML VIAL IVP ONE ×2 (07:53→07:56)
[2019-03-15] MEDS: Budesonide/Formoterol 80/4.5 1 PUFF INH IH SCH ×2 (08:07→22:25)
[2019-03-15] MEDS ORDERED: Amiodarone Premix 150 MG/100 ML BAG IVPB ONE (08:17)
[2019-03-15] MEDS ORDERED: Amiodarone Premix 360 MG/200 ML BAG IVC ONE (08:17)
--- NOTE | 2019-03-15 08:20 | Pulmonology Consult Note ---
<Mauricio Vuong W - Last Filed: 03/15/19 15:41> Date of Encounter: 03/15/19 Medications and Allergies Albuterol Sulfate [Proventil Inhaler] 2 puff IH Q4HR PRN 03/11/19 [History] Apixaban [Eliquis] 2.5 mg PO BID 03/11/19 [History] Atorvastatin [Lipitor] 40 mg PO HS 03/11/19 [History] Budesonide/Formoterol 80/4.5 [Symbicort 80/4.5] 2 puff IH Q12H 03/11/19 [History] Cyclobenzaprine HCl 10 mg PO TID PRN 03/11/19 [History] Daptomycin [Cubicin Rf] 500 mg IV Q48H 03/11/19 [History] Ertapenem [INVanz] 500 mg IVPB QPM 03/11/19 [History] Esomeprazole Magnesium [Nexium] 40 mg PO DAILY@0730 03/11/19 [History] Levothyroxine Sodium [Levo-T] 300 mcg PO DAILY 03/11/19 [History] Metoprolol Succinate [Toprol Xl] 25 mg PO DAILY 03/11/19 [History] Calcium Acetate [Phos-LO] 1,334 mg PO TIDWM 03/12/19 [History] DAPTOmycin [Cubicin] 300 mg IV Q48H 03/12/19 [History] Sodium Thiosulfate 25 gm IV TUTHSA 03/12/19 [History] Allergy/AdvReac Type Severity Reaction Status Date / Time morphine Allergy See Verified 02/22/19 22:25 Comments Warfarin [From Coumadin] Allergy Anaphylaxis Verified 02/22/19 22:25 heparin AdvReac Severe Unresponsiv Verified 02/22/19 22:25 e All Systems: The remainder of the systems were reviewed and are negative Physical Examination Vital Signs: Vital Signs, Last 4 Hours Temp Pulse Resp BP Pulse Ox 03/15/19 12:01 99.6 F 03/15/19 11:28 99 F 87 28 111/98 100 03/15/19 11:07 85 24 155/132 94 03/15/19 10:18 115 03/15/19 10:06 138 26 130/111 100 03/15/19 09:15 124 28 80/52 100 03/15/19 08:31 101.1 F H 180 60/32 97 03/15/19 08:20 98.9 F 131 24 125/87 100 Results - Laboratory Findings CBC and BMP: 03/15/19 09:41 03/15/19 09:41 ABG ABG pH 7.39 pH Units (7.32-7.45) 03/15/19 08:23 ABG pCO2 36 mmHg (35-45) 03/15/19 08:23 ABG pO2 114 mmHg (85-104) H 03/15/19 08:23 ABG O2 Saturation 99 % (95-98) H 03/15/19 08:23 PT/INR, D-dimer PT 33.0 Seconds (9.4-12.1) H 03/12/19 03:58 Abnormal lab findings: Abnormal lab results RBC 3.02 M/mcL (3.82-4.97) L 03/15/19 09:41 Hgb 9.7 g/dL (11.5-15.4) L 03/15/19 09:41 Hct 29.1 % (35.3-44.9) L 03/15/19 09:41 MCV 101.7 fL (83.0-100.0) H 03/11/19 18:46 RDW 19.6 % (11.5-14.5) H 03/15/19 09:41 Plt Count 38 K/mcL (140-400) L 03/15/19 09:41 Platelet Estimate Marked Decrease (Normal) L 03/15/19 09:41 Immature Plt Fraction 6.9 % (1.1-6.1) H 03/15/19 03:28 Anisocytosis 1+ (Not Present) A 03/15/19 09:41 Macrocytosis Present (Not Present) A 03/15/19 09:41 PT 33.0 Seconds (9.4-12.1) H 03/12/19 03:58 APTT 46.3 Seconds (26.0-36.0) H 03/12/19 03:58 ABG pH 7.48 pH Units (7.32-7.45) H 03/14/19 16:31 ABG pO2 114 mmHg (85-104) H 03/15/19 08:23 ABG Total CO2 27 mEq/L (20-26) H 03/14/19 16:31 ABG O2 Saturation 99 % (95-98) H 03/15/19 08:23 ABG Base Excess -3 mEq/L (-2 to 3) L 03/15/19 08:23 Sodium 135 mEq/L (136-145) L 03/15/19 03:28 Potassium 5.3 mEq/L (3.5-5.1) H 03/13/19 04:00 Carbon Dioxide 22 mEq/L (23-29) L 03/15/19 09:41 BUN 27 mg/dL (6-20) H 03/15/19 09:41 Creatinine 4.26 mg/dL (0.60-1.20) H 03/15/19 09:41 Est GFR ( Amer) 14 (> 60) L 03/15/19 09:41 Est GFR (Non-Af Amer) 11 (> 60) L 03/15/19 09:41 Glucose 52 mg/dL (70-105) L 03/15/19 09:41 POC Glucose 111 mg/dL (70-99) H 03/15/19 11:27 Calculated Osmolality 301 (280-300) H 03/11/19 14:51 Calcium 7.5 mg/dL (8.6-10.3) L 03/15/19 09:41 Magnesium 1.5 mg/dL (1.6-2.6) L 03/15/19 09:41 Transferrin < 75 mg/dL (203-362) L 03/12/19 03:58 Direct Bilirubin 0.3 mg/dL (0.0-0.2) H 03/11/19 14:51 ALT 3 Units/L (7-52) L 03/12/19 03:58 Alkaline Phosphatase 111 Units/L (34-104) H 03/12/19 03:58 Serum Total Protein 4.7 g/dL (6.4-8.9) L 03/12/19 03:58 Albumin 1.9 g/dL (3.5-5.7) L 03/12/19 03:58 Albumin/Globulin Ratio 0.7 (1.1-2.2) L 03/12/19 03:58 HDL Cholesterol 5 mg/dL (40-59) L 03/12/19 03:58 Cholesterol/HDL Ratio 6.4 (0-4.9) H 03/12/19 03:58 Folate 17.7 ng/mL (3.0-16.0) H 03/12/19 03:58 TSH 7.987 mcIU/mL (0.340-5.600) H 03/11/19 14:51 Crossmatch See Detail 03/13/19 10:01 - Microbiology Findings Microbiology Findings: Microbiology, Last 48 Hours 03/14/19 11:03 Blood Culture - Preliminary Peripheral Venipuncture Culture is incubating and being continuously monitored for growth. Final report to follow. 03/14/19 11:03 Blood Culture - Preliminary Peripheral Venipuncture Culture is incubating and being continuously monitored for growth. Final report to follow. - Clinical Findings Intake & Output: Intake & Output 03/14/19 03/15/19 03/15/19 23:59 07:59 15:59 Intake Total 410 / 1410 123 / 1320 1197 / 1320 Balance 410 / 1410 123 / 1320 1197 / 1320 Weight 84 kg Consult Discharge Plan - Plan Referrals: Peter Vicente DO [Primary Care Provider] - - Attending Attestation I examined this patient and my medical decision-making was reviewed with the Resident Physician. I agree with the documented findings, disposition and treatment plan as described except to the extent set forth below. We independently had [id number] contact with the patient I spent 32min of Critical Care time with this patient. It involved decision making of high complexity to assess, manipulate, and support vital organ system failure and/or to prevent further life threatening deterioration of the patient's condition. The time involved in the performance of separately reportable procedures was not counted toward critical care time. Patient seen and examined at bedside Labs, radiology, chart personally reviewed. Management was reviewed during multidisciplinary critical care rounds. FR[employer]: no gross docal deficts suspect mild metabolic encephalopathy Pulm: Acute on chronic Hypoxic respiratory failure. Acceptable O2 on nasal cannula will trial PAP for Volume overload as needed Cards:Cardiogenic shock s/t arrhythmia and A. fib with RVR was requiring vasopressors and now patient is able to tolerate calcium channel infusion with improvement in blood pressure and need to be loaded with amiodarone and c ardiology consultation requested I suspect this is secondary to decompensated diastolic heart failure and that she will benefit from fluid removal with dialysis GI: Continue to monitor Nutrition: Nothing by mouth for now Renal: UOP Monitored, Cont to Trend sCr and monitor Electrolytes. ID: Appears to have abdominal wall infection and is at risk for multiple other infections will reculture patient and she will need antibiotic regimen for ID expertise. Plan for melgoza CT to evaluate further sources of infection Heme/Onc: Acute on chronic anemia but has been stable over the last 24 hours. DVT prophylaxis given Endo: Glucose Monitored Integ/MSK: Skin Care per routine ICU Nursing Protocol to prevent ulcers. Lines: All lines examined without evidence of infection : Dispo: Monitor in ICU for critical illness CODE: Full. <Marco A Keith - Last Filed: 03/15/19 18:28> Date of Encounter: 03/15/19 Time of Encounter: 09:05 Assessment and Plan (1) Afib Current Visit: No Status: Chronic Continue to monitor Qualifiers: Atrial fibrillation type: paroxysmal Qualified Code(s): I48.0 - Paroxysmal atrial fibrillation (2) Kidney failure Current Visit: No Status: Chronic Qualifiers: Renal failure chronicity: chronic Chronic kidney disease stage: on chronic dialysis Qualified Code(s): N18.6 - End stage renal disease; Z99.2 - Dependence on renal dialysis (3) Noncompliance with renal dialysis Current Visit: No Status: Chronic Patient dialyzed here in the ICU (4) Weakness generalized Current Visit: No Status: Chronic (5) ESRD (end stage renal disease) on dialysis Current Visit: Yes Status: Chronic Dialysis performed here in the ICU patient tolerated well. (6) Goals of care, counseling/discussion Current Visit: No Status: Acute Patient has been noncompliant with renal dialysis Consult placed to palliative care (7) DVT prophylaxis Current Visit: No Status: Acute Intermittent calf pumps History of Present Illness Consult date: 03/15/19 Requesting physician: El Cha History of present illness: The patient is a 44-year-old female past medical history of asthma, A. fib, cardiac myopathy, diabetes, end-stage renal disease on dialysis, GI bleed, hyperlipidemia, hypertension, thyroid disease, recent history of abdominal wound which grew out MRSA and pseudomonas patient recently on daptomycin with ertapenem which has been changed recently to vancomycin with meropenem. The patient is presenting to the ED on 03/11 after being found unresponsive at home by her family. Initial glucose by EMS was noted to be 54 mental status was improved after D10 was given. It was noted by the admitting hospitalist patient has missed 2 of her last dialysis appointment because she has not been feeling well. Nephrology was consulted and is following. Patient was noted to have thrombocytopenia on laboratory evaluation and GI was consulted and is currently following. No overt source of bleed has yet been identified. Admitting hospitalist states that he is concerned over possibly of insulinoma after noting the patient's insulin and C-peptide levels were elevated last January. Rapid response was called in the morning of 03/15 due to atrial fibrillation with rapid ventricular response and patient having altered mental status. Patient was attempted chemical cardioversion 2 on the floor with 3 times electrical cardioversion which failed to cardiovert the rate or rhythm. Patient was started on a Cardizem drip was noted to be hypotensive, phenylephrine drip was started to the patient's midline amiodarone was considered however we have canceled disorder at this time in favor of Cardizem as the patient's blood pressure is responded appropriately. Patient will require lactate, CRP, cortisol levels to be evaluated for further evaluation of possible septicemia. Past Med Surg Social Fam HX - Past Medical History Medical history: asthma, atrial fibrillation, cardiomyopathy, diabetes, dialysis, GI bleed, hyperlipidemia, hypertension, renal disease, thyroid disease Additional medical history: T dialysis Psychiatric history: no psych history - Past Surgical History Surgical History: appendectomy, cholecystectomy, thyroidectomy, transplant, other Additional surgical history: KIDNEY TRANSPLANT 2007, TUBAL LIGATION, left antecubital AV fistula, multiple surgical and endovascular interventions for the left antecubital AV fistula, and placement of a left upper arm AV shunt - Social History Smoking Status: Never smoker Smokeless Tobacco Status: No Alcohol use: none Drug use: none - Family History Father Adopted: No Family Member Ethnicity: Non- Living Status: Hx Family Cardiac Disorders: Yes Hx Family Respiratory Disorders: Yes Hx Family Cancer: Yes Hx Family GI Disorders: No Hx Family Endocrine Disorder: Yes Hx Family Neuromuscular Disorders: No Hx Family Neurologic Disorders: No Hx Family HEENT Disorders: No Hx Family Autoimmune Disorders: No Mother Adopted: No Living Status: Hx Family Cardiac Disorders: Yes Hx Family Respiratory Disorders: No Hx Family Cancer: Yes Hx Family GI Disorders: No Hx Family Endocrine Disorder: No Hx Family Neuromuscular Disorders: No Hx Family Neurologic Disorders: No Hx Family HEENT Disorders: No Hx Family Autoimmune Disorders: No All Systems: The remainder of the systems were reviewed and are negative - Cardiovascular Cardiovascular: chest pain - Respiratory Respiratory: dyspnea - Gastrointestinal Gastrointestinal: abdominal pain, nausea - Neurological Neurological: dizziness Physical Examination Vital Signs: Vital Signs, Last 4 Hours Temp Pulse Resp BP Pulse Ox 03/15/19 05:12 98.4 F 99 17 108/66 96 Results - Laboratory Findings CBC and BMP: 03/15/19 09:41 03/15/19 09:41 ABG ABG pH 7.48 pH Units (7.32-7.45) H 03/14/19 16:31 ABG pCO2 35 mmHg (35-45) 03/14/19 16:31 ABG pO2 61 mmHg (85-104) L 03/14/19 16:31 ABG O2 Saturation 93 % (95-98) L 03/14/19 16:31 PT/INR, D-dimer PT 33.0 Seconds (9.4-12.1) H 03/12/19 03:58 Abnormal lab findings: Abnormal lab results RBC 2.98 M/mcL (3.82-4.97) L 03/15/19 03:28 Hgb 9.3 g/dL (11.5-15.4) L D 03/15/19 03:28 Hct 28.5 % (35.3-44.9) L 03/15/19 03:28 MCV 101.7 fL (83.0-100.0) H 03/11/19 18:46 RDW 19.5 % (11.5-14.5) H 03/15/19 03:28 Plt Count 32 K/mcL (140-400) L 03/15/19 03:28 Platelet Estimate Decreased (Normal) L 03/11/19 18:46 Immature Plt Fraction 6.9 % (1.1-6.1) H 03/15/19 03:28 Anisocytosis 1+ (Not Present) A 03/11/19 14:51 PT 33.0 Seconds (9.4-12.1) H 03/12/19 03:58 APTT 46.3 Seconds (26.0-36.0) H 03/12/19 03:58 ABG pH 7.48 pH Units (7.32-7.45) H 03/14/19 16:31 ABG pO2 61 mmHg (85-104) L 03/14/19 16:31 ABG Total CO2 27 mEq/L (20-26) H 03/14/19 16:31 ABG O2 Saturation 93 % (95-98) L 03/14/19 16:31 Sodium 135 mEq/L (136-145) L 03/15/19 03:28 Potassium 5.3 mEq/L (3.5-5.1) H 03/13/19 04:00 Carbon Dioxide 19 mEq/L (23-29) L 03/13/19 04:00 BUN 28 mg/dL (6-20) H 03/15/19 03:28 Creatinine 4.31 mg/dL (0.60-1.20) H 03/15/19 03:28 Est GFR ( Amer) 14 (> 60) L 03/15/19 03:28 Est GFR (Non-Af Amer) 11 (> 60) L 03/15/19 03:28 Glucose 59 mg/dL (70-105) L 03/15/19 03:28 POC Glucose 55 mg/dL (70-99) L 03/14/19 22:03 Calculated Osmolality 301 (280-300) H 03/11/19 14:51 Calcium 7.6 mg/dL (8.6-10.3) L 03/15/19 03:28 Transferrin < 75 mg/dL (203-362) L 03/12/19 03:58 Direct Bilirubin 0.3 mg/dL (0.0-0.2) H 03/11/19 14:51 ALT 3 Units/L (7-52) L 03/12/19 03:58 Alkaline Phosphatase 111 Units/L (34-104) H 03/12/19 03:58 Serum Total Protein 4.7 g/dL (6.4-8.9) L 03/12/19 03:58 Albumin 1.9 g/dL (3.5-5.7) L 03/12/19 03:58 Albumin/Globulin Ratio 0.7 (1.1-2.2) L 03/12/19 03:58 HDL Cholesterol 5 mg/dL (40-59) L 03/12/19 03:58 Cholesterol/HDL Ratio 6.4 (0-4.9) H 03/12/19 03:58 Folate 17.7 ng/mL (3.0-16.0) H 03/12/19 03:58 TSH 7.987 mcIU/mL (0.340-5.600) H 03/11/19 14:51 Crossmatch See Detail 03/13/19 10:01 - Microbiology Findings Microbiology Findings: Microbiology, Last 48 Hours 03/14/19 11:03 Blood Culture - Preliminary Peripheral Venipuncture Culture is incubating and being continuously monitored for growth. Final report to follow. 03/14/19 11:03 Blood Culture - Preliminary Peripheral Venipuncture Culture is incubating and being continuously monitored for growth. Final report to follow. - Clinical Findings Intake & Output: Intake & Output 03/14/19 03/15/19 03/15/19 23:59 07:59 15:59 Intake Total 410 / 1410 123 / 123 Balance 410 / 1410 123 / 123
[2019-03-15 08:26] LABS: ABG Base Excess -3 mEq/L (-2 to 3); ABG HCO3 22 mEq/L (21-27); ABG Oxygen Saturation 99 % (95-98); ABG PCO2 36 mmHg (35-45); ABG PH 7.39 pH Units (7.32-7.45); ABG PO2 114 mmHg (85-104); ABG TCO2 23 mEq/L (20-26)
[2019-03-15] MEDS ORDERED: Amiodarone Premix 360 MG/200 ML BAG IVC SCH (08:30)
--- NOTE | 2019-03-15 08:51 | Internal Med Progress Note ---
Hospitalist Progress Note - Encounter Date of Encounter: 03/15/19 Time of Encounter: 08:00 - Subjective Interval History: Had rapid response called this am for hypotension with afib with RVR - Exam Vitals: Temp Pulse Resp BP Pulse Ox 101.1 F H 180 17 60/32 97 03/15/19 08:31 03/15/19 08:31 03/15/19 05:12 03/15/19 08:31 03/15/19 08:31 Exam: GENERAL: Lethargic. Not in distress. Oriented HEENT: EOMI, PERRLA MOUTH: Moist oral mucosa NECK:No JVD, No lymph nodes. 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 SKIN: Normal color, no rahses, no lesions EXTREMITIES: No deformity, no edema, no tenderness, no joint swelling or clubbing NEUROLOGICAL: Normal cognition, normal motor and sensory exam. - Assessment and Plan (1) Atrial fibrillation with RVR Current Visit: Yes Status: Acute Assessment and Plan: Rapid repsonse was called this am for hypotension and elevated HR. Pt was in afib with RVR with hypotension with impending cardiogenic shock. BP repeated multiple times ranged from the 60s- 80s systolic with HR in the 170s EKG x 2 showed SVT and Afib with RVR She was given adenosine 6mg x2 and cardizem 10mg x1 IV with persistent hyp otension and elevated HR She was subsequently cardioverted x3 but failed to convert to sinus rhythm and was transferred to the ICU and started on phenylephrine drip and cardizem drip She was previously on eliquis for anticoagulation which was held 2 days ago for possible GI bleed. Pt had to be cardioverted emergently due to hypotension with tachyarrhythmia. Anticoagulation per ICU team and cardiology. No clear evidence of GI bleed (2) Acute respiratory failure with hypoxia Current Visit: Yes Status: Acute Assessment and Plan: Likely secondary to acute worsening of chronic diastolic CHF Oxygen supplementation as needed (3) Acute on chronic diastolic (congestive) heart failure Current Visit: Yes Status: Acute Assessment and Plan: Will need dialysis (4) Sepsis Current Visit: Yes Status: Acute Assessment and Plan: Pt has abdominal wounds with MRSA positive and has been on daptomycin and ertapenem She has episodes of hypotension and fevers that may be secondary to sepsis Seen by ID and antibiotics have been switched to vanc and meropenem (5) Hypoglycemia Current Visit: Yes Status: Acute Assessment and Plan: Patient presents with recurrent hypoglycemia. Hypoglycemia panel from January shows elevated c peptide and elevated proinsulin Will need workup for insulinoma and possible endocriniologist referral acutely (6) Anemia Current Visit: Yes Status: Chronic Assessment and Plan: Patient has ESRD and calciphylaxis of anterior abdominal wall Anemia is likely related to renal disease, chronic inflammation and possible GI bleed s/p transfusion of 2 units of PRBC. EGD held yesterday by GI due to extreme leth argy and possible disorientation (7) ESRD (end stage renal disease) on dialysis Current Visit: Yes Status: Chronic Assessment and Plan: Nephrology on board Continue dialysis as tolerated (8) Hypertension Current Visit: Yes Status: Chronic Assessment and Plan: Hold antihypertensives due to borderline hypotension (9) COPD (chronic obstructive pulmonary disease) Current Visit: Yes Status: Acute Assessment and Plan: No wheezes on physical exam We will give as needed breathing treatments DVT Prophylaxis: Eliquis on hold for possible GI bleed - Time Spent with Patient Total time spent is greater than 50% in coordination of care (as documented) at patient's floor/unit and/or counseling patient: Internal Medicine: Result - Labs CBC & Chem 7: 03/15/19 09:41 03/15/19 09:41 Labs: Short CBC 03/15/19 Range/Units 03:28 WBC 6.9 (4.3-11.1) K/mcL Hgb 9.3 L D (11.5-15.4) g/dL Hct 28.5 L (35.3-44.9) % Plt Count 32 L (140-400) K/mcL BMP 03/15/19 03:28 Sodium 135 L Potassium 4.0 Chloride 98 Carbon Dioxide 23 BUN 28 H Creatinine 4.31 H Glucose 59 L Calcium 7.6 L - ABG Interpretation ABG results: ABG ABG pH 7.39 pH Units (7.32-7.45) 03/15/19 08:23 ABG pCO2 36 mmHg (35-45) 03/15/19 08:23 ABG pO2 114 mmHg (85-104) H 03/15/19 08:23 ABG O2 Saturation 99 % (95-98) H 03/15/19 08:23 PT/INR, D-dimer PT 33.0 Seconds (9.4-12.1) H 03/12/19 03:58 - Impressions Impressions Head CT 03/14/19 15:50 IMPRESSION: Stable CT brain with no acute intracranial abnormality. D/ / Praful Meeks MD / Praful Meeks MD Interpreting Provider: Praful Meeks MD Chest X-Ray 03/15/19 08:00 IMPRESSION: 1. Cardiomegaly with interval worsening of mild pulmonary edema. D/ / 03/15/2019 08:48:15 Maris Latham MD / michael Interpreting Provider: Maris Latham MD Consult Discharge Plan - Plan Referrals: Peter Vicente DO [Primary Care Provider] - (4) Sepsis Qualifiers: Qualified Code(s): A41.9 - Sepsis, unspecified organism; R65.20 - Severe sepsis without septic shock (6) Anemia Qualifiers: Anemia type: due to chronic kidney disease Chronic kidney disease stage: on chronic dialysis Qualified Code(s): N18.6 - End stage renal disease; D63.1 - Anemia in chronic kidney disease; Z99.2 - Dependence on renal dialysis (8) Hypertension Qualifiers: Hypertension type: essential hypertension Qualified Code(s): I10 - Essential (primary) hypertension (9) COPD (chronic obstructive pulmonary disease) Qualifiers: COPD type: unspecified COPD Qualified Code(s): J44.9 - Chronic obstructive pulmonary disease, unspecified
[2019-03-15 09:58] LABS: Basophils % 0.4 %; Eosinophils # 0.3 K/mcL (0.0-0.6); Eosinophils % 2.9 %; Hematocrit 29.1 % (35.3-44.9); Hemoglobin 9.7 g/dL (11.5-15.4); Immature Granulocytes % 0.3 % (0-4); Lymphocytes # 1.5 K/mcL (0.6-4.6); Lymphocytes % 15.3 %; Mean Corpuscular HGB Conc 33.3 g/dL (31.6-35.5); Mean Corpuscular Hemoglobin 32.1 pg (28.0-33.3); Mean Corpuscular Volume 96.4 fL (83.0-100.0); Mean Platelet Volume 11.2 fL (9.4-12.4); Monocytes % 9.7 %; Neutrophils # 7.1 K/mcL (1.6-8.9); Red Blood Count 3.02 M/mcL (3.82-4.97); Red Cell Distribution Width 19.6 % (11.5-14.5); Segmented Neutrophils % 71.4 %
[2019-03-15 10:00] LABS: Platelet Count 38 K/mcL (140-400)
[2019-03-15 10:17] LABS: Calcium 7.5 mg/dL (8.6-10.3); Magnesium 1.5 mg/dL (1.6-2.6)
[2019-03-15] MEDS: Phenylephrine 10 MG in 0.9 % Sodium Chloride 250 ML IVC SCH ×4 (10:27→17:04)
[2019-03-15] MEDS: Calcium Acetate 667 MG CAPSULE PO SCH ×3 (10:29→18:51)
[2019-03-15] MEDS: Metoprolol XL (24 HR) Succ 25 MG TAB.ER.24H PO SCH (10:30)
[2019-03-15 10:31] LABS: Anisocytosis 1+ (Not Present); Macrocytosis Present (Not Present); Platelet Estimate Marked Decrease (Normal)
[2019-03-15 10:32] LABS: Thyroid Stimulating Hormone 2.436 mcIU/mL (0.340-5.600)
[2019-03-15] MEDS ORDERED: Vancomycin 500 MG in 0.9 % Sodium Chloride Mini Bag 100 ML IVPB ONE (11:00)
[2019-03-15] MEDS ORDERED: 0.9 % Sodium Chloride 250 ML IVC PRN (11:47)
[2019-03-15 14:38] LABS: Triiodothyronine (T3) Total 0.29 ng/mL (0.87-1.78)
--- NOTE | 2019-03-15 15:18 | Infectious Disease Progress No ---
ID Progress Note Date of Encounter: 03/15/19 Time of Encounter: 15:15 - Subjective Subjective: Patient seen and examined. Laying in bed. Get transferred to the ICU. Patient very lethargic and obtunded. Breathing nonlabored. Unable to get review of system. There was a rapid response called this a.m. for hypotension and atrial fibrillation with RVR. Vital signs noted requiring pressors Labs reviewed - Objective CBC & Chem 7: 03/15/19 09:41 03/15/19 09:41 - Exam Vitals: Temp Pulse Resp BP Pulse Ox 99.6 F 80 24 118/91 100 03/15/19 12:01 03/15/19 15:11 03/15/19 15:11 03/15/19 15:11 03/15/19 15:11 Exam: GENERAL: Distress obtunded and nonresponsive eyes open spontaneously HEENT: LUCI, EOMI LUNGS: Diminished breath sounds universally. Poor inspiratory effort. CV: Irregularly irregular., S1 S2. Tachycardic. ABDOMEN: Soft, nontender, hypoactive bowel sounds EXT: Anasarca all 4 extremities NEURO: Opens eyes spontaneously not alert or oriented does not follow commands or answer questions - Assessment and Plan (1) Sepsis Current Visit: No Status: Suspected Sepsis on admission Now in septic shock etiology not clear I dont believe it's due to Calciphilaxis concern for other underlying infection or even noninfectious cause Qualifiers: Sepsis type: sepsis due to unspecified organism Qualified Code(s): A41.9 - Sepsis, unspecified organism SNOMED Code(s): 50822849 (2) Altered mental status Current Visit: No Status: Resolved etiology not clear could be due to underlying infection At this point encephalitis/meningitis cannot be ruled out because I cannot get any information from the patient Qualifiers: Altered mental status type: unspecified Qualified Code(s): R41.82 - Altered mental status, unspecified SNOMED Code(s): 484887129 (3) Thrombocytopenia Current Visit: Yes Status: Acute Etiology unknown SNOMED Code(s): 782469910 (4) Hypoproteinemia Current Visit: Yes Status: Acute SNOMED Code(s): 4586919 (5) Calciphylaxis Current Visit: No Status: Chronic no obvious infected wounds SNOMED Code(s): 569651701 (6) Anasarca associated with disorder of kidney Current Visit: No Status: Acute SNOMED Code(s): 84788803584619 (7) ESRD (end stage renal disease) on dialysis Current Visit: No Status: Chronic Missed 2 dialysis sessions prior to admission SNOMED Code(s): 416471027 (8) Myxedema Current Visit: No Status: Suspected TSH noted SNOMED Code(s): 03033418 (9) Anemia Current Visit: Yes Status: Chronic s/p iron transfusion going for EGD tomorrow Qualifiers: Anemia type: due to chronic kidney disease Chronic kidney disease stage: on chronic dialysis Qualified Code(s): N18.6 - End stage renal disease; D63.1 - Anemia in chronic kidney disease; Z99.2 - Dependence on renal dialysis SNOMED Code(s): 704157007 (10) Hypotension Current Visit: No Status: Resolved Qualifiers: Hypotension type: other hypotension type Qualified Code(s): I95.89 - Other hypotension SNOMED Code(s): 89184373 (11) Atrial fibrillation with RVR Current Visit: No Status: Acute SNOMED Code(s): 624465134889555 - Recommendations Recommendations: We still have no obvious etiology for the patient's clinical picture Possible septic shock. Not sure if there is a component of myxedema or adrenal insufficiency or other. I did speak with the boyfriend was at bedside. He tells me that she never took her Synthroid 300 g daily at home. Get a CT chest, abdomen and pelvis Check respiratory infectious panel Await blood cultures to finalize Consider checking cortisol levels Continue meropenem dose adjust based on creatinine clearance Continue vancomycin with goal vancomycin trough of 10-15 Prognosis guarded Consult Discharge Plan - Plan Referrals: Peter Vicente DO [Primary Care Provider] -
[2019-03-15 15:40] LABS: Adenovirus Not Detected (Not Detect); Bordetella Pertussis Not Detected (Not Detect); Chlamydophila pneumoniae Not Detected (Not Detect); Coronavirus 229E Not Detected (Not Detect); Coronavirus HKU1 Not Detected (Not Detect); Coronavirus NL63 Not Detected (Not Detect); Coronavirus OC43 Not Detected (Not Detect); Human Metapneumovirus Not Detected (Not Detect); Human Rhinovirus/Enterovirus Not Detected (Not Detect); Influenza A Subtype 2009 H1 Not Detected (Not Detect); Influenza A Untypeable Not Detected (Not Detect); Influenza B Not Detected (Not Detect); Mycoplasma pneumoniae Not Detected (Not Detect); Parainfluenza Virus 1 Not Detected (Not Detect); Parainfluenza Virus 2 Not Detected (Not Detect); Parainfluenza Virus 3 Not Detected (Not Detect); Parainfluenza Virus 4 Not Detected (Not Detect); Respiratory Syncytial Virus Not Detected (Not Detect)
--- NOTE | 2019-03-15 16:31 | Nephrology Progress Note ---
Date of Encounter: 03/15/19 Time of Encounter: 16:31 - Assessment and Plan (1) ESRD (end stage renal disease) on dialysis Current Visit: Yes Status: Chronic HD TRS. Renal vitamins. Renal dose medications. Renal diet. Additional dialysis and ultrafiltration as needed. The patient seen on dialysis. At the discussion with the primary team dialysis was initiated today. Will not remove fluid secondary to the patient's hypotension. The patient's prognosis is poor. She remains critically ill 31 minutes spent in the care of this critically ill patient (2) Abdominal pain Current Visit: No Status: Acute Per primary. Qualifiers: Abdominal location: lower abdomen, unspecified Qualified Code(s): R10.30 - Lower abdominal pain, unspecified (3) Hypoglycemia Current Visit: Yes Status: Acute Blood sugars in the 50's on D5W at 100cc/hr for a liter, will encourage limiting fluids given. D10W better if needed Monitor for signs of hypoglycemia. Management per the primary team. (4) Acute anemia Current Visit: No Status: Acute Transfusion parameters per primary team Hgb goal is 10-11. Subjective Principal diagnosis: weakness, hypoglycemia Interval history: Ms. Alexis is a 44 yo woman with a history of end-stage renal disease. Her mental status is altered so I cannot obtain an accurate review of systems. Her blood pressure is low as she is on vasopressors. She is critically ill. Objective - Vital Signs Vital signs: Vital Signs Temp Pulse Resp BP Pulse Ox 03/15/19 16:00 78 22 77/55 100 03/15/19 15:53 82 03/15/19 15:50 99.0 F 18 113/86 03/15/19 15:11 80 24 118/91 100 03/15/19 14:20 99 24 141/119 98 03/15/19 13:02 78 26 128/105 100 03/15/19 12:10 87 17 92/64 94 03/15/19 12:01 99.6 F 03/15/19 11:28 99 F 87 28 111/98 100 03/15/19 11:07 85 24 155/132 94 03/15/19 10:18 115 03/15/19 10:06 138 26 130/111 100 03/15/19 09:15 124 28 80/52 100 03/15/19 08:31 101.1 F H 180 60/32 97 03/15/19 08:20 98.9 F 131 24 125/87 100 03/15/19 05:12 98.4 F 99 17 108/66 96 03/15/19 00:37 98.9 F 93 16 104/68 96 03/14/19 20:42 98.7 F 98 15 142/76 98 03/14/19 20:05 14 98 03/14/19 19:34 99.2 F 104 16 99 03/14/19 16:35 98.4 F 99 16 122/78 100 Intake and Output 03/15/19 03/15/19 03/15/19 07:59 15:59 23:59 Intake Total 123 / 2275 2152 / 2275 Balance 123 / 2275 2152 / 2275 Intake: IV Fluids 123 / 1675 1552 / 1675 0.9 % Sodium Chloride 1,000 ML 1000 / 1000 @ 500 mls/hr IV ONCE ONE Rx#: [id number] Dextrose 10% Water 500 Ml Ivbag 113 / 113 500 ML @ 50 mls/hr IVC .Q10H [facility] Rx#:[id number] Cardizem 50 MG In 0.9 % Sodium 50 / 50 Chloride 40 ML @ 2.5 MG/HR 2.5 mls/hr IVC CONT [facility] Rx#: [id number] Phenylephrine 10 MG In 0.9 % 502 / 502 Sodium Chloride 250 ML @ 100 MCG/MIN 150.6 mls/hr IVC CONT [facility] Rx#:[id number] Merrem 500 MG In Water for inj. 10 / 10 (sterile) 10 ML @ 200 mls/hr IVPB Q12H [facility] Rx#:[id number] Oral 0 / 0 Intake, Rinseback and Flushes 600 / 600 Other: Stool Size Moderate Stool Consistency liquid Stool Color Green # Bowel Movements 1 Weight 84 kg Blood Glucose* 60 74 Hemodialysis Net Fluid Removed 0 (mL) Patient Weight 03/15/19 23:59 Weight 84 kg - General Appearance General appearance: Present: well-developed, well-nourished, obese EENT: Present: ATNC Neck: Present: supple Respiratory: Present: clear Cardiology: Present: no edema, regular rate Dialysis Vascular Access: Arteriovenous Fistula Gastrointestinal: Present: obese Integumentary: Present: warm and dry Neurologic: Present: obtunded Musculoskeletal: Present: no cyanosis - Lab 03/16/19 03:20 08/31/19 03:20 Most recent lab results 03/15/19 03/15/19 08:23 09:41 ABG pH 7.39 ABG pCO2 36 ABG pO2 114 H ABG HCO3 22 ABG O2 Saturation 99 H Calcium 7.5 L Magnesium 1.5 L Consult Discharge Plan - Plan Referrals: Peter Vicente DO [Primary Care Provider] -
[2019-03-15] MEDS ORDERED: Albumin 25% 25gram/100mL 25 GM/100 ML IV.SOLN IVPB ONE (16:42)
[2019-03-15] MEDS ORDERED: Albumin 25% 25gram/100mL 25 GM/100 ML IV.SOLN ONE (16:43)
[2019-03-15] MEDS: Meropenem 500 MG in Water for inj. (sterile) 10 ML IVPB SCH (18:50)
[2019-03-15] MEDS: Gentamicin Oint 15 GM TUBE TP SCH ×2 (19:30→23:49)
[2019-03-15] MEDS: Phenylephrine 50 MG in 0.9 % Sodium Chloride 250 ML IVC SCH (19:31)
--- NOTE | 2019-03-15 19:50 | Electrocardiograph Report ---
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
--- NOTE | 2019-03-15 21:03 | Electrocardiograph Report ---
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
[2019-03-15] MEDS: Albumin 25% 25gram/100mL 25 GM/100 ML IV.SOLN IVPB SCH (22:02)
[2019-03-16] MEDS: Ondansetron 4 MG/2 ML VIAL IVP PRN (00:17)
[2019-03-16] MEDS: D10% in Water 500 ML IVC SCH ×3 (02:16→18:32)
[2019-03-16] MEDS: *HR* Dextrose 50 % in Water (Syg) 50 ML SYRINGE IVP PRN (02:30)
[2019-03-16] MEDS: Albumin 25% 25gram/100mL 25 GM/100 ML IV.SOLN IVPB SCH ×3 (03:14→18:32)
[2019-03-16 03:35] LABS: Basophils % 0.2 %; Eosinophils % 1.9 %; Mean Corpuscular Volume 97.2 fL (83.0-100.0)
[2019-03-16 03:37] LABS: Eosinophils # 0.1 K/mcL (0.0-0.6); Hematocrit 24.3 % (35.3-44.9); Immature Granulocytes % 0.2 % (0-4); Immature Platelets 10.5 % (1.1-6.1); Lymphocytes # 0.3 K/mcL (0.6-4.6); Lymphocytes % 5.5 %; Mean Corpuscular HGB Conc 32.9 g/dL (31.6-35.5); Mean Platelet Volume 12.7 fL (9.4-12.4); Monocytes # 0.3 K/mcL (0.0-1.3); Monocytes % 5.3 %; Neutrophils # 4.6 K/mcL (1.6-8.9); Red Cell Distribution Width 18.8 % (11.5-14.5); Segmented Neutrophils % 86.9 %; White Blood Count 5.3 K/mcL (4.3-11.1)
[2019-03-16 03:46] LABS: Platelet Count 19 K/mcL (140-400)
[2019-03-16 03:54] LABS: Alanine Aminotransferase < 3 Units/L (7-52); Alkaline Phosphatase 74 Units/L (34-104); Aspartate Amino Transferase 17 Units/L (13-39); BUN/Creatinine Ratio 7 (6-26); Bilirubin,Total 1.8 mg/dL (0.3-1.0); Blood Urea Nitrogen 20 mg/dL (6-20); Calcium 7.2 mg/dL (8.6-10.3); Carbon Dioxide 21 mEq/L (23-29); Chloride 100 mEq/L (98-107); Glucose 116 mg/dL (70-105); Magnesium 2.1 mg/dL (1.6-2.6); Osmolality,Calculated 284 (280-300); Potassium 3.5 mEq/L (3.5-5.1); Sodium 135 mEq/L (136-145); eGFR For African Americans 20 (> 60); eGFR For Non-African Americans 17 (> 60)
[2019-03-16 04:10] LABS: Anisocytosis 1+ (Not Present); Hypochromasia Present (Not Present); Platelet Estimate Marked Decrease (Normal)
[2019-03-16] MEDS: Calcium Acetate 667 MG CAPSULE PO SCH ×4 (07:18→16:47)
[2019-03-16] MEDS: Metoprolol XL (24 HR) Succ 25 MG TAB.ER.24H PO SCH (07:18)
--- NOTE | 2019-03-16 07:18 | Pulmonology Progress Note ---
<Mauricio Vuong W - Last Filed: 03/16/19 10:22> Date of Encounter: 03/16/19 Assessment and Plan (1) Septic shock Current Visit: Yes Status: Acute (2) Adrenal insufficiency Current Visit: Yes Status: Acute (3) Hypothermia Current Visit: Yes Status: Acute (4) Toxic metabolic encephalopathy Current Visit: Yes Status: Acute Objective PUL Vital signs: Last Vital Signs Temp 98.3 F 03/16/19 07:45 Pulse 85 03/16/19 09:58 Resp 19 03/16/19 09:58 BP 86/45 03/16/19 09:58 Pulse Ox 98 03/16/19 09:58 Results - Laboratory Findings CBC and BMP: 03/16/19 03:20 03/16/19 03:20 ABG ABG pH 7.39 pH Units (7.32-7.45) 03/15/19 08:23 ABG pCO2 36 mmHg (35-45) 03/15/19 08:23 ABG pO2 114 mmHg (85-104) H 03/15/19 08:23 ABG O2 Saturation 99 % (95-98) H 03/15/19 08:23 PT/INR, D-dimer PT 35.3 Seconds (9.4-12.1) H 03/16/19 07:39 Abnormal lab findings: Abnormal lab results RBC 2.50 M/mcL (3.82-4.97) L 03/16/19 03:20 Hgb 8.0 g/dL (11.5-15.4) L D 03/16/19 03:20 Hct 24.3 % (35.3-44.9) L 03/16/19 03:20 MCV 101.7 fL (83.0-100.0) H 03/11/19 18:46 RDW 18.8 % (11.5-14.5) H 03/16/19 03:20 Plt Count 19 K/mcL (140-400) L* 03/16/19 03:20 MPV 12.7 fL (9.4-12.4) H 03/16/19 03:20 Lymphocytes # 0.3 K/mcL (0.6-4.6) L 03/16/19 03:20 Platelet Estimate Marked Decrease (Normal) L 03/16/19 03:20 Immature Plt Fraction 10.5 % (1.1-6.1) H 03/16/19 03:20 Hypochromasia Present (Not Present) A 03/16/19 03:20 Anisocytosis 1+ (Not Present) A 03/16/19 03:20 Macrocytosis Present (Not Present) A 03/15/19 09:41 PT 35.3 Seconds (9.4-12.1) H 03/16/19 07:39 APTT 46.3 Seconds (26.0-36.0) H 03/12/19 03:58 ABG pH 7.48 pH Units (7.32-7.45) H 03/14/19 16:31 ABG pO2 114 mmHg (85-104) H 03/15/19 08:23 ABG Total CO2 27 mEq/L (20-26) H 03/14/19 16:31 ABG O2 Saturation 99 % (95-98) H 03/15/19 08:23 ABG Base Excess -3 mEq/L (-2 to 3) L 03/15/19 08:23 Sodium 135 mEq/L (136-145) L 03/16/19 03:20 Potassium 5.3 mEq/L (3.5-5.1) H 03/13/19 04:00 Carbon Dioxide 21 mEq/L (23-29) L 03/16/19 03:20 BUN 27 mg/dL (6-20) H 03/15/19 09:41 Creatinine 3.02 mg/dL (0.60-1.20) H 03/16/19 03:20 Est GFR ( Amer) 20 (> 60) L 03/16/19 03:20 Est GFR (Non-Af Amer) 17 (> 60) L 03/16/19 03:20 Glucose 116 mg/dL (70-105) H 03/16/19 03:20 POC Glucose 120 mg/dL (70-99) H 03/16/19 03:11 Calculated Osmolality 301 (280-300) H 03/11/19 14:51 Calcium 7.2 mg/dL (8.6-10.3) L 03/16/19 03:20 Magnesium 1.5 mg/dL (1.6-2.6) L 03/15/19 09:41 Transferrin < 75 mg/dL (203-362) L 03/12/19 03:58 Total Bilirubin 1.8 mg/dL (0.3-1.0) H 03/16/19 03:20 Direct Bilirubin 0.3 mg/dL (0.0-0.2) H 03/11/19 14:51 ALT < 3 Units/L (7-52) L 03/16/19 03:20 Alkaline Phosphatase 111 Units/L (34-104) H 03/12/19 03:58 Serum Total Protein 4.0 g/dL (6.4-8.9) L 03/16/19 03:20 Albumin 2.0 g/dL (3.5-5.7) L 03/16/19 03:20 Globulin 2.0 g/dL (2.4-3.5) L 03/16/19 03:20 Albumin/Globulin Ratio 1.0 (1.1-2.2) L 03/16/19 03:20 HDL Cholesterol 5 mg/dL (40-59) L 03/12/19 03:58 Cholesterol/HDL Ratio 6.4 (0-4.9) H 03/12/19 03:58 Folate 17.7 ng/mL (3.0-16.0) H 03/12/19 03:58 TSH 7.987 mcIU/mL (0.340-5.600) H 03/11/19 14:51 Total T3 0.29 ng/mL (0.87-1.78) L 03/15/19 09:41 Crossmatch See Detail 03/13/19 10:01 - Microbiology Findings Microbiology Findings: Microbiology, Last 48 Hours 03/14/19 11:03 Blood Culture - Preliminary Peripheral Venipuncture Culture is incubating and being continuously monitored for growth. Final report to follow. 03/14/19 11:03 Blood Culture - Preliminary Peripheral Venipuncture Culture is incubating and being continuously monitored for growth. Final report to follow. - Clinical Findings Intake & Output: Intake & Output 03/15/19 03/16/19 03/16/19 23:59 07:59 15:59 Intake Total 661 / 3323 820.5 / 1570.5 750 / 1570.5 Output Total 600 / 600 50 / 50 Balance 61 / 2723 770.5 / 1520.5 750 / 1520.5 Weight 88 kg Consult Discharge Plan - Plan Referrals: Peter Vicente DO [Primary Care Provider] - - Attending Attestation I examined this patient and my medical decision-making was reviewed with the Resident Physician. I agree with the documented findings, disposition and treatment plan as described except to the extent set forth below. We indepe ndently had [id number] contact with the patient I spent 33min of Critical Care time with this patient. It involved decision making of high complexity to assess, manipulate, and support vital organ system failure and/or to prevent further life threatening deterioration of the patient's condition. The time involved in the performance of separately reportable procedures was not counted toward critical care time. Patient seen and examined at bedside Labs, radiology, chart personally reviewed. Management was reviewed during multidisciplinary critical care rounds. 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 She is on low-dose of phenylephrine and intermittently has a high risk for further deterioration need to be watched very closely GI: Continue ppi Nutrition: Nothing by mouth for now for critical illness Renal: UOP Monitored, Cont to Trend sCr and monitor Electrolytes. ID: Patient has sepsis possibly related to hospital associated pneumonia versus skin versus abdominal infection she is on broad-spectrum antibiotics per infectious disease recommendations we will continue to follow closely Heme/Onc: Acute on chronic anemia without overt evidence of hemorrhage she also has a new thrombocytopenia which is likely multifactorial including critical illness/infection cannot exclude DIC I will need to check fibrinogen and transfuse for goal hemoglobin greater than 7 transfuse for platelets greater than 10,000 unless evidence of bleeding Endo: Glucose Monitored she is hypoglycemic and is on a D10 drip and I suspect adrenal insufficiency patient is on stress dose hydrocortisone now we will continue to monitor her thyroid function but TSH is in normal limits Integ/MSK: Skin Care per routine ICU Nursing Protocol to prevent ulcers. Lines: All lines examined without evidence of infection : Dispo: Monitor in ICU for critical illness CODE: Full unfortunately patient's clinical prognosis is very poor given her advanced multiple medical comorbidities including critical illness. <Manav Irizarry N - Last Filed: 03/16/19 14:42> Date of Encounter: 03/16/19 Time of Encounter: 07:18 Assessment and Plan (1) Toxic metabolic encephalopathy Current Visit: Yes Status: Acute Pt encephalopathic and continues to need intermittent phenylephrine BP current 115/59 with a MAP of 76 Most likely 2/2 sepsis from PNA combined with metabolic pathology -On Azithromycin, Vancomycin, and Meropenem currently to treat PNA -Continue Albumin 25% q8h -Continue to monitor MAP and adjust pressors as needed to keep MAP > 65 (2) Septic shock Current Visit: No Status: Resolved Pt with Chest CT on 03/15 with findings suggestive of PNA Pt also has some 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 (4) Adrenal insufficiency Current Visit: Yes Status: Acute Random cortisol level on the low end at 5.2 in the setting of hypotension and hypoglycemia TSH normal -Stress dose cortisol started -Will continue to monitor thyroid function (5) Hypoglycemia Current Visit: Yes Status: Acute Pt found to have a BG of 56 on 03/12 and continued to be Hypoglycemic -Currently on D5 infusion -Most recent POC glucose of 83 -Continue to monitor (6) Hypothermia Current Visit: Yes Status: Acute Pt with a recorded temperature of 95.8 at 4:00 -Bairhugger placed -Current temperature of 99.1 Qualifiers: Encounter type: subsequent encounter Qualified Code(s): T68.XXXD - Hypothermia, subsequent encounter (7) ESRD (end stage renal disease) on dialysis Current Visit: No Status: Chronic Subjective Principal diagnosis: weakness, hypoglycemia Interval history: Patient is very lethargic at this time and unable to follow commands or answer questions properly. Objective PUL Vital signs: Last Vital Signs Temp 95.8 F L 03/16/19 04:00 Pulse 77 03/16/19 07:00 Resp 25 03/16/19 07:00 BP 73/45 03/16/19 07:00 Pulse Ox 100 03/16/19 07:00 General appearance: lethargic Eyes: nonicteric ENT: oropharynx dry Neck: no lymphadenopathy Effort: normal Auscultation: bilateral: clear Cardiovascular: regular rate and rhythm Gastrointestinal: normoactive bowel sounds, soft Integumentary: other (dry flaking skin noted diffusely.) Extremities: edema Musculoskeletal: no deformities unable to assess due to mental status Results - Laboratory Findings CBC and BMP: 03/16/19 11:40 03/16/19 03:20 ABG ABG pH 7.39 pH Units (7.32-7.45) 03/15/19 08:23 ABG pCO2 36 mmHg (35-45) 03/15/19 08:23 ABG pO2 114 mmHg (85-104) H 03/15/19 08:23 ABG O2 Saturation 99 % (95-98) H 03/15/19 08:23 PT/INR, D-dimer PT 33.0 Seconds (9.4-12.1) H 03/12/19 03:58 Abnormal lab findings: Abnormal lab results RBC 2.50 M/mcL (3.82-4.97) L 03/16/19 03:20 Hgb 8.0 g/dL (11.5-15.4) L D 03/16/19 03:20 Hct 24.3 % (35.3-44.9) L 03/16/19 03:20 MCV 101.7 fL (83.0-100.0) H 03/11/19 18:46 RDW 18.8 % (11.5-14.5) H 03/16/19 03:20 Plt Count 19 K/mcL (140-400) L* 03/16/19 03:20 MPV 12.7 fL (9.4-12.4) H 03/16/19 03:20 Lymphocytes # 0.3 K/mcL (0.6-4.6) L 03/16/19 03:20 Platelet Estimate Marked Decrease (Normal) L 03/16/19 03:20 Immature Plt Fraction 10.5 % (1.1-6.1) H 03/16/19 03:20 Hypochromasia Present (Not Present) A 03/16/19 03:20 Anisocytosis 1+ (Not Present) A 03/16/19 03:20 Macrocytosis Present (Not Present) A 03/15/19 09:41 PT 33.0 Seconds (9.4-12.1) H 03/12/19 03:58 APTT 46.3 Seconds (26.0-36.0) H 03/12/19 03:58 ABG pH 7.48 pH Units (7.32-7.45) H 03/14/19 16:31 ABG pO2 114 mmHg (85-104) H 03/15/19 08:23 ABG Total CO2 27 mEq/L (20-26) H 03/14/19 16:31 ABG O2 Saturation 99 % (95-98) H 03/15/19 08:23 ABG Base Excess -3 mEq/L (-2 to 3) L 03/15/19 08:23 Sodium 135 mEq/L (136-145) L 03/16/19 03:20 Potassium 5.3 mEq/L (3.5-5.1) H 03/13/19 04:00 Carbon Dioxide 21 mEq/L (23-29) L 03/16/19 03:20 BUN 27 mg/dL (6-20) H 03/15/19 09:41 Creatinine 3.02 mg/dL (0.60-1.20) H 03/16/19 03:20 Est GFR ( Amer) 20 (> 60) L 03/16/19 03:20 Est GFR (Non-Af Amer) 17 (> 60) L 03/16/19 03:20 Glucose 116 mg/dL (70-105) H 03/16/19 03:20 POC Glucose 120 mg/dL (70-99) H 03/16/19 03:11 Calculated Osmolality 301 (280-300) H 03/11/19 14:51 Calcium 7.2 mg/dL (8.6-10.3) L 03/16/19 03:20 Magnesium 1.5 mg/dL (1.6-2.6) L 03/15/19 09:41 Transferrin < 75 mg/dL (203-362) L 03/12/19 03:58 Total Bilirubin 1.8 mg/dL (0.3-1.0) H 03/16/19 03:20 Direct Bilirubin 0.3 mg/dL (0.0-0.2) H 03/11/19 14:51 ALT < 3 Units/L (7-52) L 03/16/19 03:20 Alkaline Phosphatase 111 Units/L (34-104) H 03/12/19 03:58 Serum Total Protein 4.0 g/dL (6.4-8.9) L 03/16/19 03:20 Albumin 2.0 g/dL (3.5-5.7) L 03/16/19 03:20 Globulin 2.0 g/dL (2.4-3.5) L 03/16/19 03:20 Albumin/Globulin Ratio 1.0 (1.1-2.2) L 03/16/19 03:20 HDL Cholesterol 5 mg/dL (40-59) L 03/12/19 03:58 Cholesterol/HDL Ratio 6.4 (0-4.9) H 03/12/19 03:58 Folate 17.7 ng/mL (3.0-16.0) H 03/12/19 03:58 TSH 7.987 mcIU/mL (0.340-5.600) H 03/11/19 14:51 Total T3 0.29 ng/mL (0.87-1.78) L 03/15/19 09:41 Crossmatch See Detail 03/13/19 10:01 - Microbiology Findings Microbiology Findings: Microbiology, Last 48 Hours 03/14/19 11:03 Blood Culture - Preliminary Peripheral Venipuncture Culture is incubating and being continuously monitored for growth. Final report to follow. 03/14/19 11:03 Blood Culture - Preliminary Peripheral Venipuncture Culture is incubating and being continuously monitored for growth. Final report to follow. - Clinical Findings Intake & Output: Intake & Output 03/15/19 03/15/19 03/16/19 15:59 23:59 07:59 Intake Total 2539 / 3323 661 / 3323 720.5 / 720.5 Output Total 600 / 600 50 / 50 Balance 2539 / 2723 61 / 2723 670.5 / 670.5 Weight 84 kg 88 kg
[2019-03-16] MEDS: Hydrocortisone Sodium Succ 100 MG/2 ML VIAL IVP SCH ×3 (07:23→22:58)
[2019-03-16] MEDS: Budesonide/Formoterol 80/4.5 1 PUFF INH IH SCH ×2 (07:39→21:04)
[2019-03-16] MEDS ORDERED: Azithromycin 500 MG in 0.9 % Sodium Chloride 250 ML IVPB ONE (08:13)
[2019-03-16 08:29] LABS: INR 3.1; Prothrombin Time 35.3 Seconds (9.4-12.1)
[2019-03-16] MEDS: Phenylephrine 50 MG in 0.9 % Sodium Chloride 250 ML IVC SCH ×2 (10:28→23:48)
--- NOTE | 2019-03-16 10:54 | Nephrology Progress Note ---
Date of Encounter: 03/16/19 Time of Encounter: 10:53 - Assessment and Plan (1) ESRD (end stage renal disease) on dialysis Current Visit: Yes Status: Chronic HD TRS. Renal vitamins. Renal dose medications. Renal diet. Additional dialysis and ultrafiltration as needed. At the discussion with the primary team dialysis was initiated today. Will not remove fluid secondary to the patient's hypotension. The patient's prognosis is poor. (2) Abdominal pain Current Visit: No Status: Acute Per primary. Qualifiers: Abdominal location: lower abdomen, unspecified Qualified Code(s): R10.30 - Lower abdominal pain, unspecified (3) Hypoglycemia Current Visit: Yes Status: Acute Blood sugars in the 50's on D5W at 100cc/hr for a liter, will encourage limiting fluids given. D10W better if needed Monitor for signs of hypoglycemia. Management per the primary team. (4) Acute anemia Current Visit: No Status: Acute Transfusion parameters per primary team Hgb goal is 10-11. Subjective Principal diagnosis: weakness, hypoglycemia Interval history: Ms. Alexis is a 44 yo woman with a history of end-stage renal disease. Her mental status is altered so I cannot obtain an accurate review of systems. Her blood pressure is low as she is on vasopressors. She is critically ill. Objective - Vital Signs Vital signs: Vital Signs Temp Pulse Resp BP Pulse Ox 03/16/19 09:58 85 19 86/45 98 03/16/19 09:00 78 20 87/72 100 03/16/19 08:00 85 22 94/62 100 03/16/19 07:50 80 03/16/19 07:45 98.3 F 03/16/19 07:00 77 25 73/45 100 03/16/19 06:00 75 22 90/64 100 03/16/19 05:00 70 20 84/45 98 03/16/19 04:00 95.8 F L 68 22 72/59 99 03/16/19 03:00 72 19 85/69 100 03/16/19 02:00 84 22 111/88 100 03/16/19 01:00 78 20 71/52 100 03/16/19 00:00 68 22 92/45 100 03/15/19 23:00 75 20 89/61 100 03/15/19 22:25 18 100 03/15/19 22:00 77 20 77/49 100 03/15/19 21:00 77 24 100/82 100 03/15/19 20:00 73 18 108/96 100 03/15/19 19:30 96.2 F L 03/15/19 19:00 79 20 81/66 100 03/15/19 18:29 80 21 92/79 100 03/15/19 18:05 99.0 F 16 100/63 03/15/19 17:50 81/69 03/15/19 17:45 112/70 03/15/19 17:40 98/80 03/15/19 17:35 81 22 155/140 100 03/15/19 17:30 113/67 03/15/19 17:25 117/76 03/15/19 17:20 132/112 03/15/19 17:15 105/71 03/15/19 17:10 85/71 03/15/19 17:05 98/69 03/15/19 17:00 88/45 03/15/19 16:50 92/51 03/15/19 16:40 92/79 03/15/19 16:35 85/70 03/15/19 16:30 67/43 03/15/19 16:25 101/69 03/15/19 16:20 77/58 03/15/19 16:15 61/29 03/15/19 16:10 87/61 03/15/19 16:05 116/40 03/15/19 16:00 78 22 77/55 100 03/15/19 15:53 82 03/15/19 15:50 99.0 F 18 113/86 03/15/19 15:11 80 24 118/91 100 03/15/19 14:20 99 24 141/119 98 03/15/19 13:02 78 26 128/105 100 03/15/19 12:10 87 17 92/64 94 03/15/19 12:01 99.6 F 03/15/19 11:28 99 F 87 28 111/98 100 03/15/19 11:07 85 24 155/132 94 Intake and Output 03/15/19 03/16/19 03/16/19 23:59 07:59 15:59 Intake Total 661 / 3323 820.5 / 1570.5 750 / 1570.5 Output Total 600 / 600 50 / 50 Balance 61 / 2723 770.5 / 1520.5 750 / 1520.5 Intake: IV Fluids 661 / 2723 820.5 / 1570.5 750 / 1570.5 Dextrose 10% Water 500 Ml Ivbag 500 / 1000 500 / 1000 500 ML @ 50 mls/hr IVC .Q[facility]H [facility] Rx#:[id number] Cardizem 50 MG In 0.9 % Sodium 50 / 100 12.5 / 12.5 Chloride 40 ML @ 2.5 MG/HR 2.5 mls/hr IVC CONT [facility] Rx#: [id number] Phenylephrine 10 MG In 0.9 % 251 / 753 Sodium Chloride 250 ML @ 100 MCG/MIN 150.6 mls/hr IVC [facility] Rx#:[id number] Flexbumin 25 gm In 100 ml @ 60 100 / 100 100 / 100 mls/hr IVPB Q8H [facility] Rx#: [id number] Zithromax 500 MG In 0.9 % 250 / 250 Sodium Chloride 250 ML @ 252 mls/hr IVPB ONCE ONE Rx#: [id number] Magnesium Sulfate 2 GM In 0.9 % 208 / 208 Sodium Chloride 100 ML @ 104 mls/hr IVPB ONCE ONE Rx#: [id number] Merrem 500 MG In Water for inj. 10 / 10 (sterile) 10 ML @ 200 mls/hr IVPB Q24H [facility] Rx#:[id number] Vancocin 1,000 MG In 0.9 % 250 / 250 Sodium Chloride 250 ML @ 167 mls/hr IVPB ONCE ONE Rx#: [id number] Output: Urine 0 / 0 0 / 0 Total Dialysis (HD) Output 600 / 600 Rectal Tube 50 / 50 Other: Stool Size Moderate Stool Consistency liquid Stool Color Green Weight 88 kg Blood Glucose* 75 80 83 Hemodialysis Net Fluid Removed 0 (mL) Patient Weight 03/16/19 23:59 Weight 88 kg - General Appearance General appearance: Present: well-developed, well-nourished EENT: Present: ATNC Cardiology: Present: regular rate Gastrointestinal: Present: obese Neurologic: Present: obtunded - Lab 03/16/19 03:20 03/16/19 03:20 Most recent lab results 03/16/19 03:20 Calcium 7.2 L Magnesium 2.1 Consult Discharge Plan - Plan Referrals: Peter Vicente DO [Primary Care Provider] -
[2019-03-16 11:53] LABS: Hematocrit 24.9 % (35.3-44.9); Hemoglobin 8.1 g/dL (11.5-15.4); Immature Platelets 12.9 % (1.1-6.1); Mean Corpuscular HGB Conc 32.5 g/dL (31.6-35.5); Mean Corpuscular Hemoglobin 31.5 pg (28.0-33.3); Mean Corpuscular Volume 96.9 fL (83.0-100.0); Mean Platelet Volume 11.6 fL (9.4-12.4); Red Blood Count 2.57 M/mcL (3.82-4.97); Red Cell Distribution Width 18.9 % (11.5-14.5)
--- NOTE | 2019-03-16 13:38 | Event Note ---
Date of Encounter: 03/16/19 Time of Encounter: 13:33 Unfortunately blood pressure has been intermittently low requiring vasopressor support nurses also is concerned about IV access and so an additional attempt at placement of a central venous catheter was undertaken. Full consent was obtained. A time out was preformed identifying the correct procedure, the correct location with the nursing staff. The right neckprepped with 2% chlorhexidine and draped with a full length sterile sheet in the usual fashion. 1% lidocaine was administered subcutaneously for local anesthesia. The right internal jugular vein was accessed under ultrasound guidance with an 18 gauge thin wall needle wire was easily threaded but unfortunately after approximately 5 cm resistance was met and despite several attempts at repositioning the needle I could not pass the guidewire distally to this area which may represent some degree of vascular stenosis. The procedure was then aborted. I applied pressure to the neck region until bleeding had stopped and the area was dressed and there were no immediate complications. Further attempts cannulation would have to be under fluoroscopy guidance by interventional radiology
[2019-03-16 15:30] LABS: Calcium 8.1 mg/dL (8.6-10.3); Phosphorous 2.5 mg/dL (2.7-4.5)
[2019-03-16 15:33] LABS: Hemoglobin 7.7 g/dL (11.5-15.4)
[2019-03-16 15:34] LABS: Hematocrit 23.9 % (35.3-44.9); Immature Platelets 14.7 % (1.1-6.1); Mean Corpuscular HGB Conc 32.2 g/dL (31.6-35.5); Mean Corpuscular Hemoglobin 31.2 pg (28.0-33.3); Mean Corpuscular Volume 96.8 fL (83.0-100.0); Mean Platelet Volume 12.3 fL (9.4-12.4); Red Blood Count 2.47 M/mcL (3.82-4.97); Red Cell Distribution Width 18.7 % (11.5-14.5); White Blood Count 9.5 K/mcL (4.3-11.1)
[2019-03-16 15:40] LABS: INR 2.3; Prothrombin Time 26.5 Seconds (9.4-12.1)
[2019-03-16] MEDS ORDERED: DAPTOmycin 500 MG in 0.9 % Sodium Chloride 100 ML IVPB SCH (16:00)
[2019-03-16] MEDS: Meropenem 500 MG in Water for inj. (sterile) 10 ML IVPB SCH (16:45)
[2019-03-16] MEDS: Pantoprazole 40 MG VIAL IVP SCH (16:46)
[2019-03-16 17:02] LABS: Hemoglobin 7.8 g/dL (11.5-15.4); Mean Corpuscular Volume 96.7 fL (83.0-100.0)
[2019-03-16 17:04] LABS: Hematocrit 23.5 % (35.3-44.9); Immature Platelets 12.2 % (1.1-6.1); Mean Corpuscular HGB Conc 33.2 g/dL (31.6-35.5); Mean Corpuscular Hemoglobin 32.1 pg (28.0-33.3); Mean Platelet Volume 11.8 fL (9.4-12.4); Red Blood Count 2.43 M/mcL (3.82-4.97); Red Cell Distribution Width 18.6 % (11.5-14.5); White Blood Count 9.5 K/mcL (4.3-11.1)
[2019-03-16] MEDS: Gentamicin Oint 15 GM TUBE TP SCH (23:48)
[2019-03-17] MEDS: Albumin 25% 25gram/100mL 25 GM/100 ML IV.SOLN IVPB SCH ×2 (03:17→11:10)
[2019-03-17] MEDS: D10% in Water 500 ML IVC SCH ×3 (03:18→23:55)
[2019-03-17 03:47] LABS: Basophils % 0.1 %; Hemoglobin 8.1 g/dL (11.5-15.4)
[2019-03-17 03:48] LABS: Immature Granulocytes % 0.6 % (0-4); Immature Platelets 16.7 % (1.1-6.1); Lymphocytes # 0.2 K/mcL (0.6-4.6); Lymphocytes % 1.6 %; Mean Corpuscular HGB Conc 32.4 g/dL (31.6-35.5); Mean Corpuscular Hemoglobin 31.5 pg (28.0-33.3); Mean Corpuscular Volume 97.3 fL (83.0-100.0); Mean Platelet Volume 11.5 fL (9.4-12.4); Monocytes # 0.7 K/mcL (0.0-1.3); Monocytes % 5.2 %; Neutrophils # 12.9 K/mcL (1.6-8.9); Red Blood Count 2.57 M/mcL (3.82-4.97); Red Cell Distribution Width 18.8 % (11.5-14.5); Segmented Neutrophils % 92.5 %; White Blood Count 13.9 K/mcL (4.3-11.1)
[2019-03-17 03:57] LABS: Platelet Count 26 K/mcL (140-400)
[2019-03-17 03:58] LABS: INR 2.3; Prothrombin Time 25.9 Seconds (9.4-12.1)
[2019-03-17 04:01] LABS: Calcium 8.4 mg/dL (8.6-10.3); Potassium 4.1 mEq/L (3.5-5.1)
[2019-03-17] MEDS: Pantoprazole 40 MG VIAL IVP SCH ×2 (05:12→17:22)
--- NOTE | 2019-03-17 07:09 | Pulmonology Progress Note ---
<Mauricio Vuong W - Last Filed: 03/17/19 07:50> Date of Encounter: 03/17/19 Assessment and Plan (1) Septic shock Current Visit: Yes Status: Acute (2) Adrenal insufficiency Current Visit: Yes Status: Acute (3) Hypothermia Current Visit: Yes Status: Acute Qualifiers: Encounter type: subsequent encounter Qualified Code(s): T68.XXXD - Hypothermia, subsequent encounter (4) Toxic metabolic encephalopathy Current Visit: Yes Status: Acute Objective PUL Vital signs: Last Vital Signs Temp 96.3 F L 03/17/19 04:00 Pulse 93 03/17/19 07:00 Resp 14 03/17/19 07:00 BP 115/55 03/17/19 07:00 Pulse Ox 100 03/17/19 07:00 Results - Laboratory Findings CBC and BMP: 03/17/19 03:27 03/17/19 03:27 ABG ABG pH 7.39 pH Units (7.32-7.45) 03/15/19 08:23 ABG pCO2 36 mmHg (35-45) 03/15/19 08:23 ABG pO2 114 mmHg (85-104) H 03/15/19 08:23 ABG O2 Saturation 99 % (95-98) H 03/15/19 08:23 PT/INR, D-dimer PT 25.9 Seconds (9.4-12.1) H 03/17/19 03:27 Abnormal lab findings: Abnormal lab results WBC 13.9 K/mcL (4.3-11.1) H 03/17/19 03:27 RBC 2.57 M/mcL (3.82-4.97) L 03/17/19 03:27 Hgb 8.1 g/dL (11.5-15.4) L 03/17/19 03:27 Hct 25.0 % (35.3-44.9) L 03/17/19 03:27 MCV 101.7 fL (83.0-100.0) H 03/11/19 18:46 RDW 18.8 % (11.5-14.5) H 03/17/19 03:27 Plt Count 26 K/mcL (140-400) L* 03/17/19 03:27 MPV 12.7 fL (9.4-12.4) H 03/16/19 03:20 Neutrophils # 12.9 K/mcL (1.6-8.9) H 03/17/19 03:27 Lymphocytes # 0.2 K/mcL (0.6-4.6) L 03/17/19 03:27 Platelet Estimate Marked Decrease (Normal) L 03/16/19 03:20 Immature Plt Fraction 16.7 % (1.1-6.1) H 03/17/19 03:27 Hypochromasia Present (Not Present) A 03/16/19 03:20 Anisocytosis 1+ (Not Present) A 03/16/19 03:20 Macrocytosis Present (Not Present) A 03/15/19 09:41 PT 25.9 Seconds (9.4-12.1) H 03/17/19 03:27 APTT 55.0 Seconds (26.0-36.0) H 03/16/19 15:05 Fibrinogen 165 mg/dL (169-393) L 03/16/19 10:14 ABG pH 7.48 pH Units (7.32-7.45) H 03/14/19 16:31 ABG pO2 114 mmHg (85-104) H 03/15/19 08:23 ABG Total CO2 27 mEq/L (20-26) H 03/14/19 16:31 ABG O2 Saturation 99 % (95-98) H 03/15/19 08:23 ABG Base Excess -3 mEq/L (-2 to 3) L 03/15/19 08:23 Sodium 135 mEq/L (136-145) L 03/17/19 03:27 Potassium 5.3 mEq/L (3.5-5.1) H 03/13/19 04:00 Chloride 97 mEq/L (98-107) L 03/17/19 03:27 Carbon Dioxide 22 mEq/L (23-29) L 03/17/19 03:27 BUN 24 mg/dL (6-20) H 03/17/19 03:27 Creatinine 3.35 mg/dL (0.60-1.20) H 03/17/19 03:27 Est GFR ( Amer) 18 (> 60) L 03/17/19 03:27 Est GFR (Non-Af Amer) 15 (> 60) L 03/17/19 03:27 Glucose 158 mg/dL (70-105) H 03/17/19 03:27 POC Glucose 120 mg/dL (70-99) H 03/17/19 07:32 Calculated Osmolality 301 (280-300) H 03/11/19 14:51 Calcium 8.4 mg/dL (8.6-10.3) L 03/17/19 03:27 Phosphorus 2.5 mg/dL (2.7-4.5) L 03/16/19 15:00 Magnesium 1.5 mg/dL (1.6-2.6) L 03/15/19 09:41 Transferrin < 75 mg/dL (203-362) L 03/12/19 03:58 Total Bilirubin 1.8 mg/dL (0.3-1.0) H 03/16/19 03:20 Direct Bilirubin 0.3 mg/dL (0.0-0.2) H 03/11/19 14:51 ALT < 3 Units/L (7-52) L 03/16/19 03:20 Alkaline Phosphatase 111 Units/L (34-104) H 03/12/19 03:58 Serum Total Protein 4.0 g/dL (6.4-8.9) L 03/16/19 03:20 Albumin 2.0 g/dL (3.5-5.7) L 03/16/19 03:20 Globulin 2.0 g/dL (2.4-3.5) L 03/16/19 03:20 Albumin/Globulin Ratio 1.0 (1.1-2.2) L 03/16/19 03:20 HDL Cholesterol 5 mg/dL (40-59) L 03/12/19 03:58 Cholesterol/HDL Ratio 6.4 (0-4.9) H 03/12/19 03:58 Folate 17.7 ng/mL (3.0-16.0) H 03/12/19 03:58 TSH 7.987 mcIU/mL (0.340-5.600) H 03/11/19 14:51 Total T3 0.29 ng/mL (0.87-1.78) L 03/15/19 09:41 Vancomycin Trough 22 mcg/mL (5-10) H 03/17/19 03:27 Crossmatch See Detail 03/13/19 10:01 - Microbiology Findings Microbiology Findings: Microbiology, Last 48 Hours 03/11/19 14:51 Blood Culture - Final Peripheral Venipuncture No growth. Final report. 03/11/19 14:51 Blood Culture - Final Peripheral Venipuncture No growth. Final report. - Clinical Findings Intake & Output: Intake & Output 03/16/19 03/16/19 03/17/19 15:59 23:59 07:59 Intake Total 4644.5 / 6675.0 1210 / 6675.0 380.9 / 380.9 Output Total 0 / 200 50 / 200 100 / 100 Balance 4644.5 / 6475.0 1160 / 6475.0 280.9 / 280.9 Weight 90.2 kg Consult Discharge Plan - Plan Referrals: Peter Vicente DO [Primary Care Provider] - - Attending Attestation I examined this patient and my medical decision-making was reviewed with the Resident Physician. I agree with the documented findings, disposition and treatment plan as described except to the extent set forth below. We independently had [id number] contact with the patient I spent 33min of Critical Care time with this patient. It involved decision making of high complexity to assess, manipulate, and support vital organ system failure and/or to prevent further life threatening deterioration of the patient's condition. The time involved in the performance of separately reportable procedures was not counted toward critical care time. Patient seen and examined at bedside Labs, radiology, chart personally reviewed. Management was reviewed during multidisciplinary critical care rounds. DIRECTOR PHYSICAL THERAPY: The patient is awake and able to follow some simple commands she is very lethargic and has some underlying encephalopathy likely from metabolic arrangements and sepsis as well as critical illness Pulm: Acceptable oxygenation she is at high risk for worsening respiratory status requiring endotracheal intubation Cards: Septic shock on vasopressor support GI: Stress ulcer prophylaxis given on high-dose hydrocortisone and her bleeding risk Nutrition: Nothing by mouth for now Renal: ESRD nephrology following UOP Monitored, Cont to Trend sCr and monitor Electrolytes. ID: Patient does septic shock and source of infection may be pneumonia but she is on multiple other potential nidus for infection given her multiple wounds and decompensated health state. She is on broad-spectrum antibiotics per ID recommendations cultures thus far remain negative leukocytosis today may be a response to the hydrocortisone Heme/Onc: Patient has coagulopathy with likely low-grade DIC fibrinogen is greater than 100 however no bleeding around the IV insertion site so hold off on any further treatment for DIC right now is likely more harm with the induced than benefit. We will give vitamin K for coagulopathy and some part of nutri tional deficiency. Chronic anemia which is stable over the last 24 hours she has continued to have thrombocytopenia platelets are greater than 20,000 and no clear evidence of active hemorrhage Endo: Glucose Monitored she is on stress dose hydrocortisone Integ/MSK: Skin Care per routine ICU Nursing Protocol to prevent ulcers. Lines: All lines examined without evidence of infection : Dispo: Monitor in ICU for vasopressor requirement and critical illness CODE: Patient is full code unfortunately she has multiple chronic health issues and continues to clinically deteriorate overall prognosis is very poor patient was to continue to be full code and have aggressive treatment and will invite palliative care for further goals of care discussion as clinically prognosis on this hospitalization is poor to be very possible that she will decompensated further at any time. <Manav Irizarry - Last Filed: 03/17/19 08:37> Date of Encounter: 03/17/19 Time of Encounter: 07:09 Assessment and Plan (1) Toxic metabolic encephalopathy Current Visit: Yes Status: Acute Pt encephalopathic and continues to need intermittent phenylephrine BP current 115/59 with a MAP of 76 Most likely 2/2 sepsis from PNA combined with metabolic pathology Given 6 doses of 25 gm Albumin IV NE drip continues to run at 24.5 mls/hr Several attempts made to obtain an arterial line to better monitor pts BP without success due to pts vasculature Central venous access has also been attempted multiple times without success -Will consult IR for CVC placement -Continue Azithromycin, Vancomycin, and Meropenem to treat PNA -Continue to monitor MAP and adjust pressors as needed to keep MAP > 65 -Palliative consulted (2) Septic shock Current Visit: No Status: Resolved Pt with Chest CT on 03/15 with findings suggestive of PNA Pt also has some 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 Pt being followed by ID currently -Continue Vancomycin, Meropenem, and Azithromycin abx therapy (3) Thrombocytopenia Current Visit: Yes Status: Acute Platelet count now 21 after receiving 2 units of Platelets H&H stable No active signs of bleeding Suspect could be DIC related to sepsis -Continue to monitor CBC -If Platelets drop to <10 will give cryoprecipitate (4) Adrenal insufficiency Current Visit: Yes Status: Acute Random cortisol level on the low end at 5.2 in the setting of hypotension and hypoglycemia TSH normal -NE drip still running -Stress dose cortisol started -Will continue to monitor thyroid function (5) Hypoglycemia Current Visit: Yes Status: Acute Pt found to have a BG of 56 on 03/12 and continued to be Hypoglycemic -Currently on D10 at 30 ml/hr -Most recent POC glucose of 126 -Continue to monitor (6) Hypothermia Current Visit: Yes Status: Resolved Pt with a recorded temperature of 95.8 at 4:00 -No longer requiring bairhugger -Current temperature of 98.8 Qualifiers: Encounter type: subsequent encounter Qualified Code(s): T68.XXXD - Hypothermia, subsequent encounter (7) ESRD (end stage renal disease) on dialysis Current Visit: No Status: Chronic Pts last HD session on 03/14/19 -Due to current issues with hypotension will continue to hold off on dialysis -Continue to monitor electrolytes Subjective Principal diagnosis: weakness, hypoglycemia Interval history: Patient continues to be lethargic, but does wake up to her name and attempts to communicate, but speech is somewhat difficult to comprehend. Objective PUL Vital signs: Last Vital Signs Temp 96.3 F L 03/17/19 04:00 Pulse 91 03/17/19 06:00 Resp 14 03/17/19 06:00 BP 112/71 03/17/19 06:00 Pulse Ox 100 03/17/19 06:00 General appearance: lethargic, but will follow commands and wakes up to voice Eyes: nonicteric ENT: oropharynx dry Neck: no lymphadenopathy Effort: normal Auscultation: bilateral: clear Cardiovascular: regular rate and rhythm Gastrointestinal: normoactive bowel sounds, soft Integumentary: dry flaking skin noted diffusely as well as chronic seeping wounds in the bilateral groin. Extremities: edema Musculoskeletal: no deformities unable to assess due to mental status Results - Laboratory Findings CBC and BMP: 03/17/19 03:27 03/17/19 03:27 ABG ABG pH 7.39 pH Units (7.32-7.45) 03/15/19 08:23 ABG pCO2 36 mmHg (35-45) 03/15/19 08:23 ABG pO2 114 mmHg (85-104) H 03/15/19 08:23 ABG O2 Saturation 99 % (95-98) H 03/15/19 08:23 PT/INR, D-dimer PT 25.9 Seconds (9.4-12.1) H 03/17/19 03:27 Abnormal lab findings: Abnormal lab results WBC 13.9 K/mcL (4.3-11.1) H 03/17/19 03:27 RBC 2.57 M/mcL (3.82-4.97) L 03/17/19 03:27 Hgb 8.1 g/dL (11.5-15.4) L 03/17/19 03:27 Hct 25.0 % (35.3-44.9) L 03/17/19 03:27 MCV 101.7 fL (83.0-100.0) H 03/11/19 18:46 RDW 18.8 % (11.5-14.5) H 03/17/19 03:27 Plt Count 26 K/mcL (140-400) L* 03/17/19 03:27 MPV 12.7 fL (9.4-12.4) H 03/16/19 03:20 Neutrophils # 12.9 K/mcL (1.6-8.9) H 03/17/19 03:27 Lymphocytes # 0.2 K/mcL (0.6-4.6) L 03/17/19 03:27 Platelet Estimate Marked Decrease (Normal) L 03/16/19 03:20 Immature Plt Fraction 16.7 % (1.1-6.1) H 03/17/19 03:27 Hypochromasia Present (Not Present) A 03/16/19 03:20 Anisocytosis 1+ (Not Present) A 03/16/19 03:20 Macrocytosis Present (Not Present) A 03/15/19 09:41 PT 25.9 Seconds (9.4-12.1) H 03/17/19 03:27 APTT 55.0 Seconds (26.0-36.0) H 03/16/19 15:05 Fibrinogen 165 mg/dL (169-393) L 03/16/19 10:14 ABG pH 7.48 pH Units (7.32-7.45) H 03/14/19 16:31 ABG pO2 114 mmHg (85-104) H 03/15/19 08:23 ABG Total CO2 27 mEq/L (20-26) H 03/14/19 16:31 ABG O2 Saturation 99 % (95-98) H 03/15/19 08:23 ABG Base Excess -3 mEq/L (-2 to 3) L 03/15/19 08:23 Sodium 135 mEq/L (136-145) L 03/17/19 03:27 Potassium 5.3 mEq/L (3.5-5.1) H 03/13/19 04:00 Chloride 97 mEq/L (98-107) L 03/17/19 03:27 Carbon Dioxide 22 mEq/L (23-29) L 03/17/19 03:27 BUN 24 mg/dL (6-20) H 03/17/19 03:27 Creatinine 3.35 mg/dL (0.60-1.20) H 03/17/19 03:27 Est GFR ( Amer) 18 (> 60) L 03/17/19 03:27 Est GFR (Non-Af Amer) 15 (> 60) L 03/17/19 03:27 Glucose 158 mg/dL (70-105) H 03/17/19 03:27 POC Glucose 136 mg/dL (70-99) H 03/17/19 06:36 Calculated Osmolality 301 (280-300) H 03/11/19 14:51 Calcium 8.4 mg/dL (8.6-10.3) L 03/17/19 03:27 Phosphorus 2.5 mg/dL (2.7-4.5) L 03/16/19 15:00 Magnesium 1.5 mg/dL (1.6-2.6) L 03/15/19 09:41 Transferrin < 75 mg/dL (203-362) L 03/12/19 03:58 Total Bilirubin 1.8 mg/dL (0.3-1.0) H 03/16/19 03:20 Direct Bilirubin 0.3 mg/dL (0.0-0.2) H 03/11/19 14:51 ALT < 3 Units/L (7-52) L 03/16/19 03:20 Alkaline Phosphatase 111 Units/L (34-104) H 03/12/19 03:58 Serum Total Protein 4.0 g/dL (6.4-8.9) L 03/16/19 03:20 Albumin 2.0 g/dL (3.5-5.7) L 03/16/19 03:20 Globulin 2.0 g/dL (2.4-3.5) L 03/16/19 03:20 Albumin/Globulin Ratio 1.0 (1.1-2.2) L 03/16/19 03:20 HDL Cholesterol 5 mg/dL (40-59) L 03/12/19 03:58 Cholesterol/HDL Ratio 6.4 (0-4.9) H 03/12/19 03:58 Folate 17.7 ng/mL (3.0-16.0) H 03/12/19 03:58 TSH 7.987 mcIU/mL (0.340-5.600) H 03/11/19 14:51 Total T3 0.29 ng/mL (0.87-1.78) L 03/15/19 09:41 Vancomycin Trough 22 mcg/mL (5-10) H 03/17/19 03:27 Crossmatch See Detail 03/13/19 10:01 - Microbiology Findings Microbiology Findings: Microbiology, Last 48 Hours 03/11/19 14:51 Blood Culture - Final Peripheral Venipuncture No growth. Final report. 03/11/19 14:51 Blood Culture - Final Peripheral Venipuncture No growth. Final report. - Clinical Findings Intake & Output: Intake & Output 03/16/19 03/16/19 03/17/19 15:59 23:59 07:59 Intake Total 4644.5 / 6675.0 1210 / 6675.0 380.9 / 380.9 Output Total 0 / 200 50 / 200 100 / 100 Balance 4644.5 / 6475.0 1160 / 6475.0 280.9 / 280.9 Weight 90.2 kg
[2019-03-17] MEDS: Budesonide/Formoterol 80/4.5 1 PUFF INH IH SCH ×2 (07:52→19:49)
[2019-03-17] MEDS: Metoprolol XL (24 HR) Succ 25 MG TAB.ER.24H PO SCH (08:03)
[2019-03-17] MEDS: Calcium Acetate 667 MG CAPSULE PO SCH ×3 (08:03→15:02)
[2019-03-17] MEDS: Hydrocortisone Sodium Succ 100 MG/2 ML VIAL IVP SCH ×3 (08:28→23:54)
[2019-03-17] MEDS: Phenylephrine 50 MG in 0.9 % Sodium Chloride 250 ML IVC SCH (08:29)
--- NOTE | 2019-03-17 10:07 | Nephrology Progress Note ---
Date of Encounter: 03/17/19 Time of Encounter: 10:05 - Assessment and Plan (1) ESRD (end stage renal disease) on dialysis Current Visit: Yes Status: Chronic HD TRS. Renal vitamins. Renal dose medications. Renal diet. Additional dialysis and ultrafiltration as needed. No acute need for dialysis today. The patient's prognosis is poor. (2) Abdominal pain Current Visit: No Status: Acute Qualifiers: Abdominal location: lower abdomen, unspecified Qualified Code(s): R10.30 - Lower abdominal pain, unspecified (3) Hypoglycemia Current Visit: Yes Status: Acute (4) Acute anemia Current Visit: No Status: Acute Subjective Principal diagnosis: weakness, hypoglycemia Interval history: Ms. Alexis is a 44 yo woman with a history of end-stage renal disease. Her mental status is altered so I cannot obtain an accurate review of systems. Her blood pressure is low as she is on vasopressors. She is critically ill. Objective - Vital Signs Vital signs: Vital Signs Temp Pulse Resp BP Pulse Ox 03/17/19 09:00 94 14 92/52 100 03/17/19 08:00 94 14 61/51 100 03/17/19 07:54 98.8 F 03/17/19 07:00 93 14 115/55 100 03/17/19 06:00 91 14 112/71 100 03/17/19 05:00 92 16 88/70 99 03/17/19 04:00 96.3 F L 91 20 100/79 99 03/17/19 03:00 91 14 94/68 100 03/17/19 02:00 90 16 109/80 100 03/17/19 01:00 89 18 115/73 100 03/17/19 00:00 97.3 F L 92 20 86/68 100 03/16/19 23:00 91 20 125/85 99 03/16/19 22:00 92 24 96/23 100 03/16/19 21:04 18 100 03/16/19 21:00 86 22 76/49 100 03/16/19 20:00 88 24 74/29 99 03/16/19 19:00 88 22 88/56 100 03/16/19 18:00 85 22 70/57 100 03/16/19 17:00 83 22 104/68 100 03/16/19 16:00 98.4 F 88 23 109/60 100 03/16/19 15:09 87 03/16/19 15:00 85 21 109/64 100 03/16/19 14:00 87 21 110/92 100 03/16/19 13:00 108 30 101/55 97 03/16/19 12:50 99.2 F 100 24 101/55 95 03/16/19 12:35 99.1 F 86 26 115/68 99 03/16/19 12:00 86 24 96/45 99 03/16/19 11:38 99.1 F 03/16/19 11:16 87 03/16/19 11:00 88 22 108/68 98 Intake and Output 03/16/19 03/17/19 03/17/19 23:59 07:59 15:59 Intake Total 1210 / 6675.0 470.9 / 504.9 34 / 504.9 Output Total 50 / 200 100 / 100 0 / 100 Balance 1160 / 6475.0 370.9 / 404.9 34 / 404.9 Intake: IV Fluids 1210 / 6472.0 470.9 / 504.9 34 / 504.9 Dextrose 10% Water 500 Ml Ivbag 875 / 1875 146.9 / 146.9 500 ML @ 50 mls/hr IVC .Q10H [facility] Rx#:[id number] Phenylephrine 50 MG In 0.9 % 225 / 255 224 / 258 34 / 258 Sodium Chloride 250 ML @ 100 MCG/MIN 30.6 mls/hr IVC CONT [facility] Rx#:[id number] Flexbumin 25 gm In 100 ml @ 60 100 / 300 100 / 100 mls/hr IVPB Q8H [facility] Rx#: [id number] Merrem 500 MG In Water for inj. 10 / 10 (sterile) 10 ML @ 200 mls/hr IVPB Q24H [facility] Rx#:[id number] Output: Urine 0 / 0 0 / 0 Rectal Tube 50 / 200 100 / 100 Other: Stool Consistency liquid liquid Stool Color Green Brown Green Weight 90.2 kg Blood Glucose* 145 120 111 Patient Weight 03/17/19 23:59 Weight 90.2 kg - General Appearance General appearance: Present: well-developed, well-nourished, obese EENT: Present: ATNC Cardiology: Present: regular rate Gastrointestinal: Present: obese Neurologic: Present: obtunded - Lab 03/17/19 03:27 03/17/19 03:27 Most recent lab results 03/17/19 03:27 Calcium 8.4 L Consult Discharge Plan - Plan Referrals: Peter Vicente DO [Primary Care Provider] -
[2019-03-17 12:21] LABS: ABG Base Excess -6 mEq/L (-2 to 3); ABG HCO3 19 mEq/L (21-27); ABG Oxygen Saturation 97 % (95-98); ABG PCO2 37 mmHg (35-45); ABG PH 7.33 pH Units (7.32-7.45); ABG PO2 97 mmHg (85-104); ABG TCO2 21 mEq/L (20-26)
[2019-03-17] MEDS ORDERED: Heparin 1,000 UNITS/500 mL 500 ML ONE (13:12)
--- NOTE | 2019-03-17 14:20 | Anesthesia Procedures ---
Date of Encounter: 03/17/19 Time of Encounter: 14:15 Procedures: Anesthesia - Arterial Line Time out performed: Yes Size (Gauge): 20 Length (inches): 5 Technique Used: sterile prep, guide wire technique, direct puncture technique Post-Procedure: line taped into place Patient tolerated procedure: no complications Complications: none Site: Brachial R Comments: Done under ultrsound
[2019-03-17] MEDS: Vasopressin 40 UNIT in D5% in Water 100 ML IV SCH (14:53)
[2019-03-17] MEDS: Meropenem 500 MG in Water for inj. (sterile) 10 ML IVPB SCH (15:01)
[2019-03-17 15:18] LABS: Alanine Aminotransferase < 3 Units/L (7-52); Albumin 3.8 g/dL (3.5-5.7); Albumin/Globulin Ratio 1.8 (1.1-2.2); Alkaline Phosphatase 85 Units/L (34-104); Aspartate Amino Transferase 22 Units/L (13-39); BUN/Creatinine Ratio 7 (6-26); Bilirubin,Total 1.8 mg/dL (0.3-1.0); Blood Urea Nitrogen 25 mg/dL (6-20); Calcium 8.8 mg/dL (8.6-10.3); Carbon Dioxide 20 mEq/L (23-29); Chloride 97 mEq/L (98-107); Globulin 2.1 g/dL (2.4-3.5); Glucose 97 mg/dL (70-105); Osmolality,Calculated 286 (280-300); Potassium 4.3 mEq/L (3.5-5.1); Sodium 136 mEq/L (136-145); Total Protein 5.9 g/dL (6.4-8.9); eGFR For African Americans 17 (> 60); eGFR For Non-African Americans 14 (> 60)
[2019-03-17 16:56] LABS: Hemoglobin 7.2 g/dL (11.5-15.4); Immature Platelets 14.1 % (1.1-6.1); Mean Corpuscular HGB Conc 32.7 g/dL (31.6-35.5); Mean Corpuscular Hemoglobin 31.9 pg (28.0-33.3); Mean Corpuscular Volume 97.3 fL (83.0-100.0); Mean Platelet Volume 12.7 fL (9.4-12.4); Red Blood Count 2.26 M/mcL (3.82-4.97); Red Cell Distribution Width 18.5 % (11.5-14.5); White Blood Count 7.2 K/mcL (4.3-11.1)
[2019-03-17 20:19] LABS: Red Blood Count 2.25 M/mcL (3.82-4.97); Red Cell Distribution Width 18.6 % (11.5-14.5)
[2019-03-17 20:21] LABS: Hematocrit 22.1 % (35.3-44.9); Hemoglobin 7.3 g/dL (11.5-15.4); Immature Platelets 17.1 % (1.1-6.1); Mean Corpuscular Hemoglobin 32.4 pg (28.0-33.3); Mean Corpuscular Volume 98.2 fL (83.0-100.0); Mean Platelet Volume 12.2 fL (9.4-12.4); White Blood Count 7.3 K/mcL (4.3-11.1)
[2019-03-18 00:22] LABS: Hematocrit 22.4 % (35.3-44.9); Hemoglobin 7.2 g/dL (11.5-15.4); Mean Corpuscular HGB Conc 32.1 g/dL (31.6-35.5); Mean Corpuscular Volume 99.6 fL (83.0-100.0); Red Blood Count 2.25 M/mcL (3.82-4.97); Red Cell Distribution Width 18.6 % (11.5-14.5); White Blood Count 6.5 K/mcL (4.3-11.1)
[2019-03-18 00:24] LABS: Platelet Count 14 K/mcL (140-400)
[2019-03-18 05:44] LABS: Hemoglobin 6.6 g/dL (11.5-15.4)
[2019-03-18 05:46] LABS: Hematocrit 20.8 % (35.3-44.9); Immature Platelets 19.7 % (1.1-6.1); Mean Corpuscular HGB Conc 31.7 g/dL (31.6-35.5); Mean Corpuscular Hemoglobin 31.6 pg (28.0-33.3); Mean Corpuscular Volume 99.5 fL (83.0-100.0); Mean Platelet Volume 12.4 fL (9.4-12.4); Red Blood Count 2.09 M/mcL (3.82-4.97); Red Cell Distribution Width 18.5 % (11.5-14.5); White Blood Count 6.3 K/mcL (4.3-11.1)
[2019-03-18 05:51] LABS: INR 1.8; Prothrombin Time 20.7 Seconds (9.4-12.1)
[2019-03-18 06:07] LABS: Alanine Aminotransferase < 3 Units/L (7-52); Albumin 3.4 g/dL (3.5-5.7); Albumin/Globulin Ratio 1.5 (1.1-2.2); Alkaline Phosphatase 82 Units/L (34-104); Aspartate Amino Transferase 19 Units/L (13-39); BUN/Creatinine Ratio 8 (6-26); Bilirubin,Total 1.7 mg/dL (0.3-1.0); Blood Urea Nitrogen 28 mg/dL (6-20); Calcium 8.7 mg/dL (8.6-10.3); Carbon Dioxide 22 mEq/L (23-29); Chloride 97 mEq/L (98-107); Globulin 2.2 g/dL (2.4-3.5); Glucose 86 mg/dL (70-105); Osmolality,Calculated 287 (280-300); Potassium 4.6 mEq/L (3.5-5.1); Sodium 136 mEq/L (136-145); Total Protein 5.6 g/dL (6.4-8.9); eGFR For African Americans 16 (> 60); eGFR For Non-African Americans 13 (> 60)
[2019-03-18] MEDS: Pantoprazole 40 MG VIAL IVP SCH ×2 (06:16→18:11)
[2019-03-18 08:12] LABS: ABG Base Excess -2 mEq/L (-2 to 3); ABG HCO3 23 mEq/L (21-27); ABG Oxygen Saturation 97 % (95-98); ABG PCO2 42 mmHg (35-45); ABG PH 7.35 pH Units (7.32-7.45); ABG PO2 95 mmHg (85-104); ABG TCO2 25 mEq/L (20-26)
[2019-03-18] MEDS: Budesonide/Formoterol 80/4.5 1 PUFF INH IH SCH ×2 (08:15→20:26)
--- NOTE | 2019-03-18 08:20 | Pulmonology Progress Note ---
<Manva Irizarry - Last Filed: 03/18/19 09:45> Date of Encounter: 03/18/19 Time of Encounter: 08:20 Assessment and Plan (1) Toxic metabolic encephalopathy Current Visit: Yes Status: Acute Most likely 2/2 sepsis from PNA/chronic wounds combined with metabolic pathology Given 6 doses of 25 gm Albumin IV, Albumin of CMP of 5.6 Several attempts made to obtain an arterial line by respiratory to better monitor pts BP without success due to pts vasculature Central venous access has also been attempted multiple times without success in ICU Pt continues to appear lethargic -IR was able to place a femoral central line and anesthesia placed a arterial line in the right forearm on 03/17/19 -Pt with the appearance of hypotension prior to arterial line placement due to anasarca preventing accurate readings, but readings much improved on Arterial line -ABG normal -Continue Azithromycin, Vancomycin, and Meropenem to treat PNA -Initial Blood cultures negative -Continue to monitor for clinical improvement -Head CT ordered due to pts continued lethragy, will follow results -Palliative consulted (2) Septic shock Current Visit: No Status: Resolved Pt with Chest CT on 03/15 with findings suggestive of PNA Pt also has some 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 Pt being followed by ID currently -After arterial line placement BP better assessed and most recent BP is 139/81 -Pt with LA of 1.2, no leukocytosis, afebrile, normotensive, and RRR at this time -Continue Vancomycin, Meropenem, and Azithromycin abx therapy (3) Thrombocytopenia Current Visit: Yes Status: Acute Platelet count today down to 14 was given 3rd unit of platelets this morning H&H stable No active signs of bleeding Suspect could be DIC related to sepsis -Continue to monitor CBC q6h -If Platelets drop to <10 will give cryoprecipitate (4) Adrenal insufficiency Current Visit: Yes Status: Acute Random cortisol level on the low end at 5.2 in the setting of hypotension and hypoglycemia TSH normal -Vasopressors no longer required with BP on arterial line -BG currently 89, not requiring D10 at this time -Will continue to monitor thyroid function -Consider weaning stress dose of hydrocortisone today (5) Hypoglycemia Current Visit: Yes Status: Acute Pt found to have a BG of 56 on 03/12 and continued to be Hypoglycemic -Currently not requiring D10 -Most recent POC glucose of 89 -Consult dietary -Pt may need PEG tube placed in future due to deteriorating condition of pt -Continue to monitor and restart D10 as required (6) Hypothermia Current Visit: Yes Status: Resolved Pt with a recorded temperature of 95.8 at 4:00 -Current temperature of 98.6 Qualifiers: Encounter type: subsequent encounter Qualified Code(s): T68.XXXD - Hypothermia, subsequent encounter (7) ESRD (end stage renal disease) on dialysis Current Visit: No Status: Chronic Pts last HD session on 03/14/19 -Nephrology consulted -Pt no longer hypotensive with readings on the arterial line with mass anasarca, will need dialysis when recommended by nephrology -Continue to monitor electrolytes Subjective Principal diagnosis: weakness, hypoglycemia Interval history: Maybe slightly worse in mentation than previous day as she struggles to keep attention. Communication continues to be difficult. Objective PUL Vital signs: Last Vital Signs Temp 98.6 F 03/18/19 07:24 Pulse 85 03/18/19 06:00 Resp 14 03/18/19 06:00 BP 143/84 03/18/19 06:00 Pulse Ox 99 03/18/19 06:00 General appearance: lethargic Eyes: nonicteric ENT: other (Oral muscosa very dry with cracking and fissures. Dried blood is present over the lips and gums) Effort: normal Auscultation: bilateral: clear Cardiovascular: regular rate and rhythm Gastrointestinal: normoactive bowel sounds, soft Integumentary: other (dry flaking skin noted diffusely as well as chronic seeping wounds in the bilateral groin.) Extremities: no cyanosis, anasarca Musculoskeletal: no deformities, ROM normal unable to assess due to mental status Results - Laboratory Findings CBC and BMP: 03/18/19 05:30 03/18/19 05:30 ABG ABG pH 7.35 pH Units (7.32-7.45) 03/18/19 08:09 ABG pCO2 42 mmHg (35-45) 03/18/19 08:09 ABG pO2 95 mmHg (85-104) 03/18/19 08:09 ABG O2 Saturation 97 % (95-98) 03/18/19 08:09 PT/INR, D-dimer PT 20.7 Seconds (9.4-12.1) H 03/18/19 05:30 Abnormal lab findings: Abnormal lab results WBC 13.9 K/mcL (4.3-11.1) H 03/17/19 03:27 RBC 2.09 M/mcL (3.82-4.97) L 03/18/19 05:30 Hgb 6.6 g/dL (11.5-15.4) L 03/18/19 05:30 Hct 20.8 % (35.3-44.9) L 03/18/19 05:30 MCV 101.7 fL (83.0-100.0) H 03/11/19 18:46 RDW 18.5 % (11.5-14.5) H 03/18/19 05:30 Plt Count 16 K/mcL (140-400) L* 03/18/19 05:30 MPV 13.0 fL (9.4-12.4) H 03/18/19 00:00 Neutrophils # 12.9 K/mcL (1.6-8.9) H 03/17/19 03:27 Lymphocytes # 0.2 K/mcL (0.6-4.6) L 03/17/19 03:27 Platelet Estimate Marked Decrease (Normal) L 03/16/19 03:20 Immature Plt Fraction 19.7 % (1.1-6.1) H 03/18/19 05:30 Hypochromasia Present (Not Present) A 03/16/19 03:20 Anisocytosis 1+ (Not Present) A 03/16/19 03:20 Macrocytosis Present (Not Present) A 03/15/19 09:41 PT 20.7 Seconds (9.4-12.1) H 03/18/19 05:30 APTT 55.0 Seconds (26.0-36.0) H 03/16/19 15:05 Fibrinogen 165 mg/dL (169-393) L 03/16/19 10:14 ABG pH 7.48 pH Units (7.32-7.45) H 03/14/19 16:31 ABG pO2 114 mmHg (85-104) H 03/15/19 08:23 ABG HCO3 19 mEq/L (21-27) L 03/17/19 12:13 ABG Total CO2 27 mEq/L (20-26) H 03/14/19 16:31 ABG O2 Saturation 99 % (95-98) H 03/15/19 08:23 ABG Base Excess -6 mEq/L (-2 to 3) L 03/17/19 12:13 Sodium 135 mEq/L (136-145) L 03/17/19 03:27 Potassium 5.3 mEq/L (3.5-5.1) H 03/13/19 04:00 Chloride 97 mEq/L (98-107) L 03/18/19 05:30 Carbon Dioxide 22 mEq/L (23-29) L 03/18/19 05:30 BUN 28 mg/dL (6-20) H 03/18/19 05:30 Creatinine 3.71 mg/dL (0.60-1.20) H 03/18/19 05:30 Est GFR ( Amer) 16 (> 60) L 03/18/19 05:30 Est GFR (Non-Af Amer) 13 (> 60) L 03/18/19 05:30 Glucose 158 mg/dL (70-105) H 03/17/19 03:27 POC Glucose 105 mg/dL (70-99) H 03/17/19 22:13 Calculated Osmolality 301 (280-300) H 03/11/19 14:51 Calcium 8.4 mg/dL (8.6-10.3) L 03/17/19 03:27 Phosphorus 2.5 mg/dL (2.7-4.5) L 03/16/19 15:00 Magnesium 1.5 mg/dL (1.6-2.6) L 03/15/19 09:41 Transferrin < 75 mg/dL (203-362) L 03/12/19 03:58 Total Bilirubin 1.7 mg/dL (0.3-1.0) H 03/18/19 05:30 Direct Bilirubin 0.3 mg/dL (0.0-0.2) H 03/11/19 14:51 ALT < 3 Units/L (7-52) L 03/18/19 05:30 Alkaline Phosphatase 111 Units/L (34-104) H 03/12/19 03:58 Serum Total Protein 5.6 g/dL (6.4-8.9) L 03/18/19 05:30 Albumin 3.4 g/dL (3.5-5.7) L 03/18/19 05:30 Globulin 2.2 g/dL (2.4-3.5) L 03/18/19 05:30 Albumin/Globulin Ratio 1.0 (1.1-2.2) L 03/16/19 03:20 HDL Cholesterol 5 mg/dL (40-59) L 03/12/19 03:58 Cholesterol/HDL Ratio 6.4 (0-4.9) H 03/12/19 03:58 Folate 17.7 ng/mL (3.0-16.0) H 03/12/19 03:58 TSH 7.987 mcIU/mL (0.340-5.600) H 03/11/19 14:51 Total T3 0.29 ng/mL (0.87-1.78) L 03/15/19 09:41 Vancomycin Trough 22 mcg/mL (5-10) H 03/17/19 03:27 Crossmatch See Detail 03/13/19 10:01 - Microbiology Findings Microbiology Findings: Microbiology, Last 48 Hours 03/11/19 14:51 Blood Culture - Final Peripheral Venipuncture No growth. Final report. 03/11/19 14:51 Blood Culture - Final Peripheral Venipuncture No growth. Final report. - Clinical Findings Intake & Output: Intake & Output 03/17/19 03/18/19 03/18/19 23:59 07:59 15:59 Intake Total 0 / 897.4 450 / 450 Output Total 200 / 300 0 / 0 Balance -200 / 597.4 450 / 450 Consult Discharge Plan - Plan Referrals: Peter Vicente DO [Primary Care Provider] - <Vita Allen - Last Filed: 03/18/19 10:16> Date of Encounter: 03/18/19 Objective PUL Vital signs: Last Vital Signs Temp 98.6 F 03/18/19 07:24 Pulse 89 03/18/19 09:00 Resp 10 03/18/19 09:00 BP 131/76 03/18/19 09:00 Pulse Ox 99 03/18/19 09:00 Results - Laboratory Findings CBC and BMP: 03/18/19 05:30 03/18/19 05:30 ABG ABG pH 7.35 pH Units (7.32-7.45) 03/18/19 08:09 ABG pCO2 42 mmHg (35-45) 03/18/19 08:09 ABG pO2 95 mmHg (85-104) 03/18/19 08:09 ABG O2 Saturation 97 % (95-98) 03/18/19 08:09 PT/INR, D-dimer PT 20.7 Seconds (9.4-12.1) H 03/18/19 05:30 Abnormal lab findings: Abnormal lab results WBC 13.9 K/mcL (4.3-11.1) H 03/17/19 03:27 RBC 2.09 M/mcL (3.82-4.97) L 03/18/19 05:30 Hgb 6.6 g/dL (11.5-15.4) L 03/18/19 05:30 Hct 20.8 % (35.3-44.9) L 03/18/19 05:30 MCV 101.7 fL (83.0-100.0) H 03/11/19 18:46 RDW 18.5 % (11.5-14.5) H 03/18/19 05:30 Plt Count 16 K/mcL (140-400) L* 03/18/19 05:30 MPV 13.0 fL (9.4-12.4) H 03/18/19 00:00 Neutrophils # 12.9 K/mcL (1.6-8.9) H 03/17/19 03:27 Lymphocytes # 0.2 K/mcL (0.6-4.6) L 03/17/19 03:27 Platelet Estimate Marked Decrease (Normal) L 03/16/19 03:20 Immature Plt Fraction 19.7 % (1.1-6.1) H 03/18/19 05:30 Hypochromasia Present (Not Present) A 03/16/19 03:20 Anisocytosis 1+ (Not Present) A 03/16/19 03:20 Macrocytosis Present (Not Present) A 03/15/19 09:41 PT 20.7 Seconds (9.4-12.1) H 03/18/19 05:30 APTT 55.0 Seconds (26.0-36.0) H 03/16/19 15:05 Fibrinogen 165 mg/dL (169-393) L 03/16/19 10:14 ABG pH 7.48 pH Units (7.32-7.45) H 03/14/19 16:31 ABG pO2 114 mmHg (85-104) H 03/15/19 08:23 ABG HCO3 19 mEq/L (21-27) L 03/17/19 12:13 ABG Total CO2 27 mEq/L (20-26) H 03/14/19 16:31 ABG O2 Saturation 99 % (95-98) H 03/15/19 08:23 ABG Base Excess -6 mEq/L (-2 to 3) L 03/17/19 12:13 Sodium 135 mEq/L (136-145) L 03/17/19 03:27 Potassium 5.3 mEq/L (3.5-5.1) H 03/13/19 04:00 Chloride 97 mEq/L (98-107) L 03/18/19 05:30 Carbon Dioxide 22 mEq/L (23-29) L 03/18/19 05:30 BUN 28 mg/dL (6-20) H 03/18/19 05:30 Creatinine 3.71 mg/dL (0.60-1.20) H 03/18/19 05:30 Est GFR ( Amer) 16 (> 60) L 03/18/19 05:30 Est GFR (Non-Af Amer) 13 (> 60) L 03/18/19 05:30 Glucose 158 mg/dL (70-105) H 03/17/19 03:27 POC Glucose 105 mg/dL (70-99) H 03/17/19 22:13 Calculated Osmolality 301 (280-300) H 03/11/19 14:51 Calcium 8.4 mg/dL (8.6-10.3) L 03/17/19 03:27 Phosphorus 2.5 mg/dL (2.7-4.5) L 03/16/19 15:00 Magnesium 1.5 mg/dL (1.6-2.6) L 03/15/19 09:41 Transferrin < 75 mg/dL (203-362) L 03/12/19 03:58 Total Bilirubin 1.7 mg/dL (0.3-1.0) H 03/18/19 05:30 Direct Bilirubin 0.3 mg/dL (0.0-0.2) H 03/11/19 14:51 ALT < 3 Units/L (7-52) L 03/18/19 05:30 Alkaline Phosphatase 111 Units/L (34-104) H 03/12/19 03:58 Serum Total Protein 5.6 g/dL (6.4-8.9) L 03/18/19 05:30 Albumin 3.4 g/dL (3.5-5.7) L 03/18/19 05:30 Globulin 2.2 g/dL (2.4-3.5) L 03/18/19 05:30 Albumin/Globulin Ratio 1.0 (1.1-2.2) L 03/16/19 03:20 HDL Cholesterol 5 mg/dL (40-59) L 03/12/19 03:58 Cholesterol/HDL Ratio 6.4 (0-4.9) H 03/12/19 03:58 Folate 17.7 ng/mL (3.0-16.0) H 03/12/19 03:58 TSH 7.987 mcIU/mL (0.340-5.600) H 03/11/19 14:51 Total T3 0.29 ng/mL (0.87-1.78) L 03/15/19 09:41 Vancomycin Trough 22 mcg/mL (5-10) H 03/17/19 03:27 Crossmatch See Detail 03/13/19 10:01 - Microbiology Findings Microbiology Findings: Microbiology, Last 48 Hours 03/11/19 14:51 Blood Culture - Final Peripheral Venipuncture No growth. Final report. 03/11/19 14:51 Blood Culture - Final Peripheral Venipuncture No growth. Final report. - Clinical Findings Intake & Output: Intake & Output 03/17/19 03/18/19 03/18/19 23:59 07:59 15:59 Intake Total 0 / 897.4 450 / 450 Output Total 200 / 300 0 / 0 Balance -200 / 597.4 450 / 450 - Attending Attestation I examined this patient and my medical decision-making was reviewed with the Resident Physician. I agree with the documented findings, disposition and treatment plan as described except to the extent set forth below. Patient seen and examined. Labs, radiology, chart personally reviewed. 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 Pulmonary: Acceptable oxygenation and ventilation and she has acceptable ABG, however with her mental status as well as risk for hypoventilation this patient is a high risk for deterioration and can end up with invasive mechanical ventilation which that by itself is very risky since she is thrombocytopenic and risk for bleeding. I am hoping condition would improve and encourage incentive spirometry. Cardiovascular: Relatively stable , however she is at risk her condition could deteriorate. GI: Nutrition per dietary and GI prophylaxis per routine. Prepare to keep patient nothing by mouth at this time because of her overall condition. Heme: DVT prophylaxis per routine. Thrombocytopenia could be sepsis related and with his renal failure, dysfunctional platelets will add an additional risk her condition that could deteriorate even further. We will monitor platelet level and transfuse if platelets below 10,000. ID: Continue antibiotics and plan to de-escalation. Patient is covered with broad-spectrum antibiotics. Renal; urine out put and renal function reviewed. Nephrology follow-up for dialysis. Endorcine: blood glucose is monitored Lines: all lines checked and no evidence of infections Skin: skin care to prevent pressure ulcers per nursing routine care Dispo: ICU Code: Full. Prognosis. Poor I spent 35 min of Critical Care time with this patient. It involved decision making of high complexity to assess, manipulate, and support vital organ system failure and/or to prevent further life threatening deterioration of the patient's condition. The time involved in the performance of separately reportable procedures was not counted toward critical care time.
[2019-03-18] MEDS: Hydrocortisone Sodium Succ 100 MG/2 ML VIAL IVP SCH ×3 (09:00→23:22)
[2019-03-18 09:42] LABS: Hepatitis B Surface Antibody < 3.10 mIU/mL
[2019-03-18 09:53] LABS: Hepatitis B Surface Antigen Nonreactive (Nonreactive)
--- NOTE | 2019-03-18 10:36 | Internal Med Progress Note ---
Hospitalist Progress Note - Encounter Date of Encounter: 03/18/19 Time of Encounter: 08:20 - Subjective Interval History: Discussed on rounds with Dr. Allen, charge nurse, and primary nurse. Patient appears to be quite somnolent, difficult to arouse. We ordered STAT ABG on rounds and then CT Head given her thrombocytopenia. She is off anti-coagulation for now and receiving platelet transfusion PRN. Overall prognosis appears very grim. With stable hemodynamics, I agree we can slowly phong hydrocortisone. - Exam Vitals: Temp Pulse Resp BP Pulse Ox 98.6 F 89 10 131/76 99 03/18/19 07:24 03/18/19 09:00 03/18/19 09:00 03/18/19 09:00 03/18/19 09:00 Exam: General: somnolent; weak, frail, anasarca HEENT: dry mucosa; neck supple; no LA Chest: Clear BS; diminished in bases; no WRR; RRR; distant heart sounds; no appreciable MTR. Abdomen: soft, + BS; no HSMG appreciated, bilateral grin/lower abdominal quadrant redness/tenderness Ext: 3-4+ edema up to abdomen Skin: seeping wounds in groin; dry otherwise Neuro: somnolent, arouses somewhat; moves and withdraws to pain and loud stimuli - Assessment and Plan (1) Septic shock Current Visit: Yes Status: Acute Assessment and Plan: 1. Currently off pressors as accurate BP readings noted via Arterial line. 2. Continue antibiotics and follow cultures. 3. ABG ordered due to depressed mental status -- WNL. 4. CT Head ordered as well. (2) Adrenal insufficiency Current Visit: Yes Status: Acute Assessment and Plan: 1. Start to wean hydrocortisone slowly. 2. Monitor hemodynamics closely. (3) Hypothermia Current Visit: Yes Status: Resolved Assessment and Plan: 1. Continue to monitor; currently normal temperature. 2 Treatment for sepsis as above. (4) Toxic metabolic encephalopathy Current Visit: Yes Status: Acute Assessment and Plan: 1. CT Head pending given AMS and depressed LOC. (5) ESRD (end stage renal disease) on dialysis Current Visit: Yes Status: Chronic Assessment and Plan: 1. Nephrology following and managing HD needs. (6) Thrombocytopenia Current Visit: Yes Status: Acute Assessment and Plan: 1. Will ask HEM/ONC to see patient in consult. 2. Monitor platelets and transfuse PRN. 3. CT Head as above. - Time Spent with Patient Total time spent is greater than 50% in coordination of care (as documented) at patient's floor/unit and/or counseling patient: Internal Medicine: Result - Labs CBC & Chem 7: 03/18/19 05:30 03/18/19 05:30 Labs: Short CBC 03/17/19 03/17/19 03/18/19 Range/Units 16:42 20:10 00:00 WBC 7.2 7.3 6.5 (4.3-11.1) K/mcL Hgb 7.2 L 7.3 L 7.2 L (11.5-15.4) g/dL Hct 22.0 L 22.1 L 22.4 L (35.3-44.9) % Plt Count 17 L* 17 L* 14 L* (140-400) K/mcL 03/18/19 Range/Units 05:30 WBC 6.3 (4.3-11.1) K/mcL Hgb 6.6 L (11.5-15.4) g/dL Hct 20.8 L (35.3-44.9) % Plt Count 16 L* (140-400) K/mcL BMP 03/17/19 03/18/19 11:45 05:30 Sodium 136 136 Potassium 4.3 4.6 Chloride 97 L 97 L Carbon Dioxide 20 L 22 L BUN 25 H 28 H Creatinine 3.48 H 3.71 H Glucose 97 86 Calcium 8.8 8.7 Liver Function 03/17/19 03/18/19 Range/Units 11:45 05:30 Total Bilirubin 1.8 H 1.7 H (0.3-1.0) mg/dL AST 22 19 (13-39) Units/L ALT < 3 L < 3 L (7-52) Units/L Alkaline Phosphatase 85 82 (34-104) Units/L Albumin 3.8 3.4 L (3.5-5.7) g/dL - ABG Interpretation ABG results: ABG ABG pH 7.35 pH Units (7.32-7.45) 03/18/19 08:09 ABG pCO2 42 mmHg (35-45) 03/18/19 08:09 ABG pO2 95 mmHg (85-104) 03/18/19 08:09 ABG O2 Saturation 97 % (95-98) 03/18/19 08:09 PT/INR, D-dimer PT 20.7 Seconds (9.4-12.1) H 03/18/19 05:30 - Impressions Impressions KUB X-Ray 03/17/19 13:23 IMPRESSION: Right femoral line placement. D/ / Tarun Childers MD / Tarun Childers MD Interpreting Provider: Tarun Childers MD Consult Discharge Plan - Plan Referrals: Peter Vicente DO [Primary Care Provider] - (3) Hypothermia Qualifiers: Encounter type: subsequent encounter Qualified Code(s): T68.XXXD - Hypothermia, subsequent encounter
--- NOTE | 2019-03-18 10:47 | Nephrology Progress Note ---
Date of Encounter: 03/18/19 Time of Encounter: 10:45 - Assessment and Plan (1) ESRD (end stage renal disease) on dialysis Current Visit: Yes Status: Chronic HD TRS. Renal vitamins. Renal dose medications. Renal diet. Additional dialysis and ultrafiltration as needed. No acute need for dialysis today. The patient's prognosis is poor. (2) Abdominal pain Current Visit: No Status: Acute Per primary. Qualifiers: Qualified Code(s): R10.30 - Lower abdominal pain, unspecified (3) Hypoglycemia Current Visit: Yes Status: Acute Management per the primary team. (4) Acute anemia Current Visit: No Status: Acute Subjective Principal diagnosis: weakness, hypoglycemia Interval history: Ms. Alexis is a 44 yo woman with a history of end-stage renal disease. Her mental status is altered so I cannot obtain an accurate review of systems. Her blood pressure is improved after placing an arterial line for BP monitoring. She remains critically ill. Objective - Vital Signs Vital signs: Vital Signs Temp Pulse Resp BP Pulse Ox 03/18/19 09:00 89 10 131/76 99 03/18/19 08:15 16 100 03/18/19 08:00 93 10 139/81 100 03/18/19 07:24 98.6 F 03/18/19 06:00 85 14 143/84 99 03/18/19 05:00 97.7 F 87 14 147/86 99 03/18/19 04:00 97.7 F 86 16 145/84 99 03/18/19 03:48 83 03/18/19 03:33 97.7 F 87 14 147/86 99 03/18/19 03:18 97.4 F L 86 14 138/82 100 03/18/19 03:00 86 14 138/82 100 03/18/19 02:00 84 14 136/82 100 03/18/19 01:00 82 12 143/86 100 03/18/19 00:00 84 12 159/96 100 03/17/19 23:00 81 12 151/88 100 03/17/19 22:00 85 17 152/89 100 03/17/19 21:00 82 17 147/88 99 03/17/19 20:00 85 17 155/94 99 03/17/19 19:49 17 152/93 99 03/17/19 19:45 84 03/17/19 19:00 97.4 F L 82 12 148/89 98 03/17/19 18:00 85 10 149/91 98 03/17/19 17:00 83 12 146/88 99 03/17/19 16:00 84 12 148/88 100 03/17/19 15:00 97.5 F L 86 15 150/90 100 03/17/19 14:00 99 10 102/68 94 03/17/19 12:00 90 12 82/60 94 03/17/19 11:50 97.7 F 03/17/19 11:24 98 03/17/19 11:00 97 21 41/28 100 Intake and Output 03/17/19 03/18/19 03/18/19 23:59 07:59 15:59 Intake Total 0 / 897.4 450 / 450 Output Total 200 / 300 0 / 0 Balance -200 / 597.4 450 / 450 Intake: Oral 0 / 0 0 / 0 Blood Product 450 / 450 Platelet Pheresis Lp 2nd Unit 450 / 450 [id number] Output: Urine 0 / 0 0 / 0 Stool 200 / 200 0 / 0 Rectal Tube 0 / 0 Other: Stool Consistency liquid Stool Color Brown Blood Glucose* 105 95 89 - General Appearance General appearance: Present: well-developed, well-nourished EENT: Present: ATNC Neck: Present: supple Respiratory: Present: course breath sounds Cardiology: Present: regular rate Gastrointestinal: Present: obese Integumentary: Present: warm and dry Musculoskeletal: Present: no cyanosis - Lab 03/18/19 05:30 03/18/19 05:30 Most recent lab results 03/18/19 03/18/19 05:30 08:09 ABG pH 7.35 ABG pCO2 42 ABG pO2 95 ABG HCO3 23 ABG O2 Saturation 97 Calcium 8.7 Consult Discharge Plan - Plan Referrals: Peter Vicente DO [Primary Care Provider] -
[2019-03-18] MEDS: Calcium Acetate 667 MG CAPSULE PO SCH ×3 (10:51→17:24)
[2019-03-18] MEDS: Metoprolol XL (24 HR) Succ 25 MG TAB.ER.24H PO SCH (10:52)
[2019-03-18] MEDS: Vasopressin 40 UNIT in D5% in Water 100 ML IV SCH (10:52)
[2019-03-18] MEDS: D10% in Water 500 ML IVC SCH ×2 (10:53→21:04)
[2019-03-18 11:24] LABS: Chlorpropamide NOT DETECTED ng/mL (Cutoff 100); Glimepiride NOT DETECTED ng/mL (Cutoff 5); Glipizide NOT DETECTED ng/mL (Cutoff 5); Glyburide NOT DETECTED ng/mL (Cutoff 5); Nateglinide NOT DETECTED ng/mL (Cutoff 5); Repaglinide NOT DETECTED ng/mL (Cutoff 5); Tolazamide NOT DETECTED ng/mL (Cutoff 100)
[2019-03-18 12:47] LABS: Hematocrit 17.6 % (35.3-44.9); Mean Corpuscular HGB Conc 31.3 g/dL (31.6-35.5); Mean Corpuscular Hemoglobin 31.4 pg (28.0-33.3); Mean Corpuscular Volume 100.6 fL (83.0-100.0); Mean Platelet Volume 12.8 fL (9.4-12.4); Red Blood Count 1.75 M/mcL (3.82-4.97); Red Cell Distribution Width 18.5 % (11.5-14.5); White Blood Count 3.9 K/mcL (4.3-11.1)
[2019-03-18 12:57] LABS: Hemoglobin 5.5 g/dL (11.5-15.4); Platelet Count 16 K/mcL (140-400)
[2019-03-18 13:22] LABS: Hematocrit 21.3 % (35.3-44.9); Hemoglobin 6.9 g/dL (11.5-15.4)
[2019-03-18 13:58] LABS: Mean Corpuscular Volume 99.1 fL (83.0-100.0)
[2019-03-18 14:00] LABS: Immature Granulocytes % 0.8 % (0-4); Immature Platelets 21.2 % (1.1-6.1); Lymphocytes # 0.2 K/mcL (0.6-4.6); Lymphocytes % 4.9 %; Mean Corpuscular HGB Conc 31.9 g/dL (31.6-35.5); Mean Corpuscular Hemoglobin 31.7 pg (28.0-33.3); Mean Platelet Volume 13.4 fL (9.4-12.4); Monocytes # 0.3 K/mcL (0.0-1.3); Monocytes % 6.6 %; Neutrophils # 4.3 K/mcL (1.6-8.9); Red Blood Count 2.18 M/mcL (3.82-4.97); Red Cell Distribution Width 18.4 % (11.5-14.5); Segmented Neutrophils % 87.7 %; White Blood Count 4.9 K/mcL (4.3-11.1)
[2019-03-18 14:03] LABS: Platelet Count 18 K/mcL (140-400)
[2019-03-18 14:04] LABS: Platelet Estimate Marked Decrease (Normal)
[2019-03-18] MEDS: Gentamicin Oint 15 GM TUBE TP SCH (15:36)
[2019-03-18] MEDS ORDERED: *HR* FentaNYL (PF) 100 MCG/2 ML VIAL IVP ONE (16:38)
[2019-03-18] MEDS: Artificial Tears SOLN 15 ML BOTTLE BOTH EYES SCH ×2 (16:41→21:04)
[2019-03-18] MEDS: Meropenem 500 MG in Water for inj. (sterile) 10 ML IVPB SCH (16:44)
--- NOTE | 2019-03-18 16:56 | Oncology Inp Consult Note ---
<MarinJin - Last Filed: 03/18/19 16:57> Date of Encounter: 03/18/19 Time of Encounter: 16:57 - Data of Consult Requesting Physician: Deborah Cancino MD Primary Care Provider: Peter Vicente DO Medications and Allergies Albuterol Sulfate [Proventil Inhaler] 2 puff IH Q4HR PRN 03/11/19 [History] Apixaban [Eliquis] 2.5 mg PO BID 03/11/19 [History] Atorvastatin [Lipitor] 40 mg PO HS 03/11/19 [History] Budesonide/Formoterol 80/4.5 [Symbicort 80/4.5] 2 puff IH Q12H 03/11/19 [History] Cyclobenzaprine HCl 10 mg PO TID PRN 03/11/19 [History] Daptomycin [Cubicin Rf] 500 mg IV Q48H 03/11/19 [History] Ertapenem [INVanz] 500 mg IVPB QPM 03/11/19 [History] Esomeprazole Magnesium [Nexium] 40 mg PO DAILY@0730 03/11/19 [History] Levothyroxine Sodium [Levo-T] 300 mcg PO DAILY 03/11/19 [History] Metoprolol Succinate [Toprol Xl] 25 mg PO DAILY 03/11/19 [History] Calcium Acetate [Phos-LO] 1,334 mg PO TIDWM 03/12/19 [History] DAPTOmycin [Cubicin] 300 mg IV Q48H 03/12/19 [History] Sodium Thiosulfate 25 gm IV TUTHSA 03/12/19 [History] Allergy/AdvReac Type Severity Reaction Status Date / Time morphine Allergy See Verified 02/22/19 22:25 Comments Warfarin [From Coumadin] Allergy Anaphylaxis Verified 02/22/19 22:25 heparin AdvReac Severe Unresponsiv Verified 02/22/19 22:25 e Consult Discharge Plan - Plan Referrals: Peter Vicente DO [Primary Care Provider] - Inpatient Charges Provider: Dr. Leland Funes Consult - Inpatient: [id number] - Attending Attestation I examined this patient and my medical decision-making was reviewed with the Advanced Practice Nurse. I agree with the documented findings, disposition and treatment plan as described except to the extent set forth below. Patient seen and examined in the ICU as she is critically ill. Please check LDH, haptoglobin, NEEL, blood smear, [id number], C3, C4, CH50, retic count, fibrinogen Would recommend checking labs q6 - q8 hrs (CBC, CMP, PT/INR, aPTT, fibrinogen) Please perform anemia w/u; iron studies, B12 level, folate level Will check MM labs Please obtain wound cultures as well from two to three sites on her abdominal area Please check protein C, protein S, ATIII, and factors 2, 7, 9, 10 Transfusion parameters per our note. Thank you for the consult, we will continue to follow along with you. <Roma Walker L - Last Filed: 03/18/19 18:59> Date of Encounter: 03/18/19 Assessment and Plan (1) Anemia Status: Acute Assessment and plan: Acute on chronic anemia, hgb 6.9 today s/p transfusions x3 03/13 and 03/14 In the setting of thrombocytopenia, ESRD, septic shock (recovering off of pressors currently) Plan: Anemia workup with iron studies, B12, folate, multiple myeloma labs, LDH, NEEL, blood smear Transfuse to keep hgb >7 Further recommendations pending laboratory review Qualifiers: Anemia type: due to chronic kidney disease Chronic kidney disease stage: on chronic dialysis Qualified Code(s): N18.6 - End stage renal disease; D63.1 - Anemia in chronic kidney disease; Z99.2 - Dependence on renal dialysis (2) Thrombocytopenia Status: Acute Assessment and plan: Acute on chronic thrombocytopenia, oswald platelet count 14 today, currently 18 status post platelet transfusion, inadequate response to platelet transfusion No oozing from lines Plan: Etiology unclear, in the setting of severe sepsis, however, need to rule out other hematologic cause I have ordered an LDH, NEEL, blood smear, [id number], component levels, retic, fibrinogen Recommend every 6 hour monitoring of CBC, CMP, PT/INR, PTT and fibrinogen Further recommendations pending laboratory review Prognosis is guarded Transfusion parameters: Transfusion 1 unit plt for plt count <50 with evidence of bleeding or fever, otherwise transfuse 1 unit plt for plt count <10 - Data of Consult Requesting Physician: Deborah Cancino MD Primary Care Provider: Peter Vicente DO - Consult Narrative Reason for consult: Thrmbocytopenia, anemia History of present illness: Ms. Alexis is a 44 year old female with multiple comorbidities including history of end-stage renal disease on hemodialysis Monday//Monday, calciphylaxis, A. fib, cardiomyopathy, diabetes, GI bleed, hyperlipidemia, and hypertension was seen by us in early February for concern for cellulitis of the Left lower abdomen but was transferred to [facility] for myxedema coma. Patient apparently was found unresponsive at home and was brought to the ED. Patient was noted to have hypoglycemia with glucose of 54. Patient also admitted to have missed 2 dialysis sessions. She was noted to be fluid overload and noted to have anemia. She has had intermittent episodes of hypothermia as well as febrile. She developed septic shock and is currently been weaned off pressors. Infectious diseases consulted and following. Blood ultrasound show no growth to date. Chest x-ray was nonrevealing. CT of the chest, abdomen and pelvis on 03/15/2019 revealed bibasilar opacities with tree-in-bud nodularity, worse in the right upper lobe. Findings are most compatible with infectious etiology. Hematology consulted for further recommendations for thrombocytopenia/anemia Past Med Surg Social Fam HX - Past Medical History Medical history: asthma, atrial fibrillation, cardiomyopathy, diabetes, dialysis, GI bleed, hyperlipidemia, hypertension, renal disease, thyroid disease Additional medical history: T dialysis Psychiatric history: no psych history - Past Surgical History Surgical History: appendectomy, cholecystectomy, thyroidectomy, transplant, other Additional surgical history: KIDNEY TRANSPLANT 2007, TUBAL LIGATION, left antecubital AV fistula, multiple surgical and endovascular interventions for the left antecubital AV fistula, and placement of a left upper arm AV shunt - Social History Smoking Status: Never smoker Smokeless Tobacco Status: No Alcohol use: none Drug use: none - Family History Father Adopted: No Family Member Ethnicity: Non- Living Status: Hx Family Cardiac Disorders: Yes Hx Family Respiratory Disorders: Yes Hx Family Cancer: Yes Hx Family GI Disorders: No Hx Family Endocrine Disorder: Yes Hx Family Neuromuscular Disorders: No Hx Family Neurologic Disorders: No Hx Family HEENT Disorders: No Hx Family Autoimmune Disorders: No Mother Adopted: No Living Status: Hx Family Cardiac Disorders: Yes Hx Family Respiratory Disorders: No Hx Family Cancer: Yes Hx Family GI Disorders: No Hx Family Endocrine Disorder: No Hx Family Neuromuscular Disorders: No Hx Family Neurologic Disorders: No Hx Family HEENT Disorders: No Hx Family Autoimmune Disorders: No ROS unobtainable: due to mental status Oncology - Exam - Constitutional General appearance: obese, no febrile Exam: somnolent, moans to painful stimuli, appears chronically ill, diffuse anasarca - Head Head exam: Present: atraumatic - ENT ENT exam: Present: mucous membranes dry - Respiratory Respiratory exam: Present: decreased breath sounds. Absent: respiratory distress - Cardiovascular Cardiovascular exam: Present: RRR - GI/Abdominal GI/Abdominal exam: Present: normal bowel sounds, soft - Extremities Exam Additional comments: diffuse pitting edema/anasarca - Neurological Exam Neurological exam: Present: altered Additional comments: unable to assess, obtunded - Psychiatric Additional comments: unable to assess due to mental status - Skin Skin exam: Present: pallor Additional comments: multiple abrasions, scattered ecchymosis, weeping anasarca, bilateral abdominal wounds
[2019-03-18 18:54] LABS: Hematocrit 21.9 % (35.3-44.9); Hemoglobin 6.9 g/dL (11.5-15.4); Mean Corpuscular HGB Conc 31.5 g/dL (31.6-35.5); Mean Corpuscular Hemoglobin 31.9 pg (28.0-33.3); Mean Corpuscular Volume 101.4 fL (83.0-100.0); Mean Platelet Volume 12.8 fL (9.4-12.4); Red Blood Count 2.16 M/mcL (3.82-4.97); Red Cell Distribution Width 18.6 % (11.5-14.5)
[2019-03-18 18:57] LABS: Platelet Count 17 K/mcL (140-400)
[2019-03-19 00:18] LABS: Immature Reticulocyte % 1.6 % (11.0-38.0); Retculocyte # 0.01 M/mcL (0.05-0.10); Reticulocyte % 0.4 % (1.6-2.8)
[2019-03-19 00:23] LABS: INR 1.7; Prothrombin Time 19.1 Seconds (9.4-12.1)
[2019-03-19 00:25] LABS: Activated Partial Thrombo Time 39.9 Seconds (26.0-36.0)
[2019-03-19 00:34] LABS: Complement C3 64 mg/dL (87-200)
[2019-03-19 00:55] LABS: Alanine Aminotransferase < 3 Units/L (7-52); Albumin 3.4 g/dL (3.5-5.7); Albumin/Globulin Ratio 1.3 (1.1-2.2); Alkaline Phosphatase 95 Units/L (34-104); Aspartate Amino Transferase 14 Units/L (13-39); BUN/Creatinine Ratio 9 (6-26); Bilirubin,Total 1.7 mg/dL (0.3-1.0); Blood Urea Nitrogen 34 mg/dL (6-20); Carbon Dioxide 18 mEq/L (23-29); Chloride 99 mEq/L (98-107); Globulin 2.6 g/dL (2.4-3.5); Glucose 78 mg/dL (70-105); Osmolality,Calculated 288 (280-300); Potassium 5.2 mEq/L (3.5-5.1); Sodium 136 mEq/L (136-145); eGFR For African Americans 16 (> 60); eGFR For Non-African Americans 13 (> 60)
[2019-03-19 01:00] LABS: Ferritin > 1500 ng/mL (10-120); Iron 84 mcg/dL (50-170); Transferrin < 75 mg/dL (203-362)
[2019-03-19] MEDS ORDERED: *HR* FentaNYL (PF) 100 MCG/2 ML VIAL IVP ONE (02:20)
[2019-03-19 05:40] LABS: ABG Base Excess -5 mEq/L (-2 to 3); ABG HCO3 21 mEq/L (21-27); ABG Oxygen Saturation 99 % (95-98); ABG PCO2 40 mmHg (35-45); ABG PH 7.31 pH Units (7.32-7.45); ABG PO2 154 mmHg (85-104); ABG TCO2 22 mEq/L (20-26)
[2019-03-19] MEDS: Pantoprazole 40 MG VIAL IVP SCH (06:05)
[2019-03-19] MEDS: D10% in Water 500 ML IVC SCH (06:05)
[2019-03-19 06:56] LABS: Immature Granulocytes % 0.8 % (0-4); Monocytes % 6.4 %
[2019-03-19 06:58] LABS: Hematocrit 21.3 % (35.3-44.9); Hemoglobin 6.9 g/dL (11.5-15.4); Immature Platelets 21.1 % (1.1-6.1); Lymphocytes # 0.4 K/mcL (0.6-4.6); Mean Corpuscular HGB Conc 32.4 g/dL (31.6-35.5); Mean Corpuscular Hemoglobin 32.4 pg (28.0-33.3); Mean Platelet Volume 12.4 fL (9.4-12.4); Monocytes # 0.3 K/mcL (0.0-1.3); Neutrophils # 4.3 K/mcL (1.6-8.9); Red Blood Count 2.13 M/mcL (3.82-4.97); Red Cell Distribution Width 18.5 % (11.5-14.5); Segmented Neutrophils % 85.8 %
[2019-03-19 07:06] LABS: INR 1.7; Prothrombin Time 19.6 Seconds (9.4-12.1)
[2019-03-19 07:09] LABS: Activated Partial Thrombo Time 39.1 Seconds (26.0-36.0)
[2019-03-19 07:11] LABS: Platelet Count 21 K/mcL (140-400)
[2019-03-19 07:21] LABS: Alanine Aminotransferase < 3 Units/L (7-52); Albumin 3.3 g/dL (3.5-5.7); Albumin/Globulin Ratio 1.4 (1.1-2.2); Alkaline Phosphatase 89 Units/L (34-104); Aspartate Amino Transferase 12 Units/L (13-39); BUN/Creatinine Ratio 9 (6-26); Bilirubin,Total 1.6 mg/dL (0.3-1.0); Blood Urea Nitrogen 38 mg/dL (6-20); Carbon Dioxide 21 mEq/L (23-29); Chloride 98 mEq/L (98-107); Globulin 2.3 g/dL (2.4-3.5); Glucose 87 mg/dL (70-105); Osmolality,Calculated 292 (280-300); Potassium 5.2 mEq/L (3.5-5.1); Sodium 137 mEq/L (136-145); Total Protein 5.6 g/dL (6.4-8.9); eGFR For African Americans 14 (> 60); eGFR For Non-African Americans 12 (> 60)
--- NOTE | 2019-03-19 07:21 | Pulmonology Progress Note ---
<TiffanyAlexandrianick M - Last Filed: 03/19/19 07:55> Date of Encounter: 03/19/19 Objective PUL Vital signs: Last Vital Signs Temp 98.8 F 03/19/19 07:30 Pulse 88 03/19/19 07:00 Resp 10 03/19/19 07:00 BP 161/96 03/19/19 07:00 Pulse Ox 100 03/19/19 07:00 Results - Laboratory Findings CBC and BMP: 03/19/19 06:45 03/19/19 06:45 ABG ABG pH 7.31 pH Units (7.32-7.45) L 03/19/19 05:36 ABG pCO2 40 mmHg (35-45) 03/19/19 05:36 ABG pO2 154 mmHg (85-104) H 03/19/19 05:36 ABG O2 Saturation 99 % (95-98) H 03/19/19 05:36 PT/INR, D-dimer PT 19.6 Seconds (9.4-12.1) H 03/19/19 06:45 Abnormal lab findings: Abnormal lab results WBC 3.9 K/mcL (4.3-11.1) L 03/18/19 12:00 RBC 2.13 M/mcL (3.82-4.97) L 03/19/19 06:45 Hgb 6.9 g/dL (11.5-15.4) L 03/19/19 06:45 Hct 21.3 % (35.3-44.9) L 03/19/19 06:45 MCV 101.4 fL (83.0-100.0) H 03/18/19 18:15 MCHC 31.5 g/dL (31.6-35.5) L 03/18/19 18:15 RDW 18.5 % (11.5-14.5) H 03/19/19 06:45 Plt Count 21 K/mcL (140-400) L* 03/19/19 06:45 MPV 12.8 fL (9.4-12.4) H 03/18/19 18:15 Reticulocyte # 0.01 M/mcL (0.05-0.10) L 03/19/19 00:00 Neutrophils # 12.9 K/mcL (1.6-8.9) H 03/17/19 03:27 Lymphocytes # 0.4 K/mcL (0.6-4.6) L 03/19/19 06:45 Platelet Estimate Marked Decrease (Normal) L 03/18/19 13:04 Immature Plt Fraction 21.1 % (1.1-6.1) H 03/19/19 06:45 Hypochromasia Present (Not Present) A 03/16/19 03:20 Anisocytosis 1+ (Not Present) A 03/16/19 03:20 Macrocytosis Present (Not Present) A 03/15/19 09:41 Percent Retic 0.4 % (1.6-2.8) L 03/19/19 00:00 Immature Retic Fraction 1.6 % (11.0-38.0) L 03/19/19 00:00 Retic Hgb Equivalent 37.9 pg (28.61-36.33) H 03/19/19 00:00 PT 19.6 Seconds (9.4-12.1) H 03/19/19 06:45 APTT 39.1 Seconds (26.0-36.0) H 03/19/19 06:45 Fibrinogen 110 mg/dL (169-393) L 03/19/19 06:45 ABG pH 7.31 pH Units (7.32-7.45) L 03/19/19 05:36 ABG pO2 154 mmHg (85-104) H 03/19/19 05:36 ABG HCO3 19 mEq/L (21-27) L 03/17/19 12:13 ABG Total CO2 27 mEq/L (20-26) H 03/14/19 16:31 ABG O2 Saturation 99 % (95-98) H 03/19/19 05:36 ABG Base Excess -5 mEq/L (-2 to 3) L 03/19/19 05:36 Sodium 135 mEq/L (136-145) L 03/17/19 03:27 Potassium 5.2 mEq/L (3.5-5.1) H 03/19/19 06:45 Chloride 97 mEq/L (98-107) L 03/18/19 05:30 Carbon Dioxide 21 mEq/L (23-29) L 03/19/19 06:45 BUN 38 mg/dL (6-20) H 03/19/19 06:45 Creatinine 4.14 mg/dL (0.60-1.20) H 03/19/19 06:45 Est GFR ( Amer) 14 (> 60) L 03/19/19 06:45 Est GFR (Non-Af Amer) 12 (> 60) L 03/19/19 06:45 Glucose 158 mg/dL (70-105) H 03/17/19 03:27 POC Glucose 105 mg/dL (70-99) H 03/17/19 22:13 Calculated Osmolality 301 (280-300) H 03/11/19 14:51 Calcium 8.4 mg/dL (8.6-10.3) L 03/17/19 03:27 Phosphorus 2.5 mg/dL (2.7-4.5) L 03/16/19 15:00 Magnesium 1.5 mg/dL (1.6-2.6) L 03/15/19 09:41 Transferrin < 75 mg/dL (203-362) L 03/19/19 00:00 Ferritin > 1500 ng/mL (10-120) H 03/19/19 00:00 Total Bilirubin 1.6 mg/dL (0.3-1.0) H 03/19/19 06:45 Direct Bilirubin 0.3 mg/dL (0.0-0.2) H 03/11/19 14:51 AST 12 Units/L (13-39) L 03/19/19 06:45 ALT < 3 Units/L (7-52) L 03/19/19 06:45 Alkaline Phosphatase 111 Units/L (34-104) H 03/12/19 03:58 Serum Total Protein 5.6 g/dL (6.4-8.9) L 03/19/19 06:45 Albumin 3.3 g/dL (3.5-5.7) L 03/19/19 06:45 Globulin 2.3 g/dL (2.4-3.5) L 03/19/19 06:45 Albumin/Globulin Ratio 1.0 (1.1-2.2) L 03/16/19 03:20 HDL Cholesterol 5 mg/dL (40-59) L 03/12/19 03:58 Cholesterol/HDL Ratio 6.4 (0-4.9) H 03/12/19 03:58 Folate 17.7 ng/mL (3.0-16.0) H 03/12/19 03:58 TSH 7.987 mcIU/mL (0.340-5.600) H 03/11/19 14:51 Total T3 0.29 ng/mL (0.87-1.78) L 03/15/19 09:41 Vancomycin Trough 22 mcg/mL (5-10) H 03/17/19 03:27 Complement C3 64 mg/dL (87-200) L 03/19/19 00:00 Hep Bs Antibody < 3.10 mIU/mL (10.00-) L 03/18/19 07:25 Direct Antiglob Test 2+ (Negative) A 03/18/19 17:00 Crossmatch See Detail 03/13/19 10:01 - Microbiology Findings Microbiology Findings: Microbiology, Last 48 Hours 03/18/19 18:00 Wound Culture - Preliminary Abdomen Culture is incubating. - Clinical Findings Intake & Output: Intake & Output 03/18/19 03/18/19 03/19/19 15:59 23:59 07:59 Intake Total 0 / 653 203 / 653 Output Total 0 / 0 0 / 0 Balance 0 / 653 203 / 653 Weight 90.2 kg Consult Discharge Plan - Plan Referrals: Peter Vicente DO [Primary Care Provider] - - Attending Attestation I examined this patient and my medical decision-making was reviewed with the Resident Physician. I agree with the documented findings, disposition and treatment plan as described except to the extent set forth below. Patient seen and examined. Labs, radiology, chart personally reviewed. Agree with resident's history and physical, assessment, plan with following comments: NEUROUROLOGIST: Patient follows commands, however she is still very lethargic and this is most likely metabolic in nature and hoping hemodialysis will help some. We will try to avoid any narcotics and sedative as much as possible. Pulmonary: Acceptable oxygenation and ventilation. She is still maintaining her airway and her ABG is acceptable, however with hypoventilation and mental status change she is high risk for intubation and that could be problematic with her thrombocytopenia risk of bleeding. Cardiovascular: Relatively stable , however she is very high risk for deterior ation. GI: Nutrition per dietary and GI prophylaxis per routine. This is an issue with her mental status change and also her normocytic opinion she is high risk for bleeding placing NG-tube and that will keep her high risk for aspiration at the same time. Nutrition is a real problem at this time with her multiple comorbidities she needs nutrition for healing and TPN would not be ideal in her case. The reiki practitioner. Heme: DVT prophylaxis per routine. Thrombocytopenia is stable and appreciated casket trimmer input. ID: Continue antibiotics and plan to de-escalation. Infectious disease team is following and previously patient was treated at [facility] and we will check for possible transfer to ICU due to her multiple comorbidities. Renal; urine out put and renal function reviewed. Nephrology is following And Possibility of Hemodialysis. Endorcine: blood glucose is monitored. Rechecking care thyroid hormones. Lines: all lines checked and no evidence of infections Skin: skin care to prevent pressure ulcers per nursing routine care. She has multiple skin breakdown and unfortunately with her third spacing and poor nutrition this is even worse. Dispo: She will remain in ICU and discussion regarding transferring care to [facility]. Code: Full. Prognosis. Very poor and will have palliative care to assess her. I spent 33 min of Critical Care time with this patient. It involved decision making of high complexity to assess, manipulate, and support vital organ system failure and/or to prevent further life threatening deterioration of the patient's condition. The time involved in the performance of separately reportable procedures was not counted toward critical care time. <Manav Irizarry - Last Filed: 03/19/19 09:46> Date of Encounter: 03/19/19 Time of Encounter: 07:21 Assessment and Plan (1) Toxic metabolic encephalopathy Current Visit: Yes Status: Acute Most likely 2/2 sepsis from PNA/chronic wounds combined with metabolic pathology Given 6 doses of 25 gm Albumin IV, Albumin of CMP of 5.6 Several attempts made to obtain an arterial line by respiratory to better monitor pts BP without success due to pts vasculature Central venous access has also been attempted multiple times without success in ICU Pt continues to appear lethargic IR was able to place a femoral central line and anesthesia placed a arterial line in the right forearm on 03/17/19 -Continue Azithromycin, Vancomycin, and Meropenem to treat PNA -Initial Blood cultures negative -Wound cultures ordered will follow results -Continue to monitor for clinical improvement -Head CT without signs of acute process -Palliative consulted, will follow for recommendations (2) Septic shock Current Visit: No Status: Resolved Pt with Chest CT on 8/30 with findings suggestive of PNA Pt also has some 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 Pt being followed by ID currently, will follow for recommendations -After arterial line placement BP better assessed and most recent BP is 139/81 -Pt with LA of 1.2, no leukocytosis, afebrile, normotensive, and RRR at this time -Continue Vancomycin, Meropenem, and Azithromycin abx therapy (3) Thrombocytopenia Current Visit: Yes Status: Acute Platelet count at 21 today H&H stable No active signs of bleeding Suspect could be DIC related to sepsis -Continue to monitor CBC q6h -If Platelets drop to <10 will give cryoprecipitate -Hematology/Oncology consult placed, will follow recommendations (4) Adrenal insufficiency Current Visit: Yes Status: Acute Random cortisol level on the low end at 5.2 in the setting of hypotension and hypoglycemia TSH normal -Repeat TSH, Free T3, and Free T4 ordered -Vasopressors no longer required with BP on arterial line -BG currently 83, not requiring D10 at this time -On hydrocortisone 50 mg IV Q8H (5) Hypoglycemia Current Visit: Yes Status: Acute Pt found to have a BG of 56 on 03/12 and continued to be Hypoglycemic -Currently not requiring D10 -Most recent POC glucose of 83 -Consult dietary -Pt may need PEG tube placed in future due to deteriorating condition of pt, but unable to justify at this time due to platelet count -Continue to monitor and restart D10 as required (6) Hypothermia Current Visit: Yes Status: Resolved Pt with a recorded temperature of 95.8 at 4:00 -Current temperature of 98.1 Qualifiers: Encounter type: subsequent encounter Qualified Code(s): T68.XXXD - Hypothermia, subsequent encounter (7) ESRD (end stage renal disease) on dialysis Current Visit: No Status: Chronic Pts last HD session on 03/14/19, on T/R/S schedule -Nephrology consulted -Pt no longer hypotensive with readings on the arterial line with mass anasarca, will need dialysis when recommended by nephrology -Continue to monitor electrolytes -Should have dialysis today Subjective Principal diagnosis: weakness, hypoglycemia Interval history: Slightly less lethargic today, but still unable to understand her speech. P atient is arousable to painful stimuli and responds to voice. Objective PUL Vital signs: Last Vital Signs Temp 98.1 F 03/19/19 00:00 Pulse 89 03/19/19 06:00 Resp 8 03/19/19 06:00 BP 159/94 03/19/19 06:00 Pulse Ox 100 03/19/19 06:00 General appearance: lethargic Eyes: nonicteric ENT: other (Oral [place]a very dry with cracking and fissures. Dried blood is present over the lips and gums) Effort: normal Auscultation: bilateral: clear Cardiovascular: regular rate and rhythm Gastrointestinal: normoactive bowel sounds, soft Integumentary: other (dry flaking skin noted diffusely as well as chronic seeping wounds in the bilateral groin.) Extremities: no cyanosis, anasarca Musculoskeletal: no deformities, ROM normal unable to assess due to mental status Results - Laboratory Findings CBC and BMP: 03/19/19 06:45 03/19/19 06:45 ABG ABG pH 7.31 pH Units (7.32-7.45) L 03/19/19 05:36 ABG pCO2 40 mmHg (35-45) 03/19/19 05:36 ABG pO2 154 mmHg (85-104) H 03/19/19 05:36 ABG O2 Saturation 99 % (95-98) H 03/19/19 05:36 PT/INR, D-dimer PT 19.6 Seconds (9.4-12.1) H 03/19/19 06:45 Abnormal lab findings: Abnormal lab results WBC 3.9 K/mcL (4.3-11.1) L 03/18/19 12:00 RBC 2.13 M/mcL (3.82-4.97) L 03/19/19 06:45 Hgb 6.9 g/dL (11.5-15.4) L 03/19/19 06:45 Hct 21.3 % (35.3-44.9) L 03/19/19 06:45 MCV 101.4 fL (83.0-100.0) H 03/18/19 18:15 MCHC 31.5 g/dL (31.6-35.5) L 03/18/19 18:15 RDW 18.5 % (11.5-14.5) H 03/19/19 06:45 Plt Count 21 K/mcL (140-400) L* 03/19/19 06:45 MPV 12.8 fL (9.4-12.4) H 03/18/19 18:15 Reticulocyte # 0.01 M/mcL (0.05-0.10) L 03/19/19 00:00 Neutrophils # 12.9 K/mcL (1.6-8.9) H 03/17/19 03:27 Lymphocytes # 0.4 K/mcL (0.6-4.6) L 03/19/19 06:45 Platelet Estimate Marked Decrease (Normal) L 03/18/19 13:04 Immature Plt Fraction 21.1 % (1.1-6.1) H 03/19/19 06:45 Hypochromasia Present (Not Present) A 03/16/19 03:20 Anisocytosis 1+ (Not Present) A 03/16/19 03:20 Macrocytosis Present (Not Present) A 03/15/19 09:41 Percent Retic 0.4 % (1.6-2.8) L 03/19/19 00:00 Immature Retic Fraction 1.6 % (11.0-38.0) L 03/19/19 00:00 Retic Hgb Equivalent 37.9 pg (28.61-36.33) H 03/19/19 00:00 PT 19.6 Seconds (9.4-12.1) H 03/19/19 06:45 APTT 39.1 Seconds (26.0-36.0) H 03/19/19 06:45 Fibrinogen 110 mg/dL (169-393) L 03/19/19 06:45 ABG pH 7.31 pH Units (7.32-7.45) L 03/19/19 05:36 ABG pO2 154 mmHg (85-104) H 03/19/19 05:36 ABG HCO3 19 mEq/L (21-27) L 03/17/19 12:13 ABG Total CO2 27 mEq/L (20-26) H 03/14/19 16:31 ABG O2 Saturation 99 % (95-98) H 03/19/19 05:36 ABG Base Excess -5 mEq/L (-2 to 3) L 03/19/19 05:36 Sodium 135 mEq/L (136-145) L 03/17/19 03:27 Potassium 5.2 mEq/L (3.5-5.1) H 03/19/19 06:45 Chloride 97 mEq/L (98-107) L 03/18/19 05:30 Carbon Dioxide 21 mEq/L (23-29) L 03/19/19 06:45 BUN 38 mg/dL (6-20) H 03/19/19 06:45 Creatinine 4.14 mg/dL (0.60-1.20) H 03/19/19 06:45 Est GFR ( Amer) 14 (> 60) L 03/19/19 06:45 Est GFR (Non-Af Amer) 12 (> 60) L 03/19/19 06:45 Glucose 158 mg/dL (70-105) H 03/17/19 03:27 POC Glucose 105 mg/dL (70-99) H 03/17/19 22:13 Calculated Osmolality 301 (280-300) H 03/11/19 14:51 Calcium 8.4 mg/dL (8.6-10.3) L 03/17/19 03:27 Phosphorus 2.5 mg/dL (2.7-4.5) L 03/16/19 15:00 Magnesium 1.5 mg/dL (1.6-2.6) L 03/15/19 09:41 Transferrin < 75 mg/dL (203-362) L 03/19/19 00:00 Ferritin > 1500 ng/mL (10-120) H 03/19/19 00:00 Total Bilirubin 1.6 mg/dL (0.3-1.0) H 03/19/19 06:45 Direct Bilirubin 0.3 mg/dL (0.0-0.2) H 03/11/19 14:51 AST 12 Units/L (13-39) L 03/19/19 06:45 ALT < 3 Units/L (7-52) L 03/19/19 06:45 Alkaline Phosphatase 111 Units/L (34-104) H 03/12/19 03:58 Serum Total Protein 5.6 g/dL (6.4-8.9) L 03/19/19 06:45 Albumin 3.3 g/dL (3.5-5.7) L 03/19/19 06:45 Globulin 2.3 g/dL (2.4-3.5) L 03/19/19 06:45 Albumin/Globulin Ratio 1.0 (1.1-2.2) L 03/16/19 03:20 HDL Cholesterol 5 mg/dL (40-59) L 03/12/19 03:58 Cholesterol/HDL Ratio 6.4 (0-4.9) H 03/12/19 03:58 Folate 17.7 ng/mL (3.0-16.0) H 03/12/19 03:58 TSH 7.987 mcIU/mL (0.340-5.600) H 03/11/19 14:51 Total T3 0.29 ng/mL (0.87-1.78) L 03/15/19 09:41 Vancomycin Trough 22 mcg/mL (5-10) H 03/17/19 03:27 Complement C3 64 mg/dL (87-200) L 03/19/19 00:00 Hep Bs Antibody < 3.10 mIU/mL (10.00-) L 03/18/19 07:25 Direct Antiglob Test 2+ (Negative) A 03/18/19 17:00 Crossmatch See Detail 03/13/19 10:01 - Microbiology Findings Microbiology Findings: Microbiology, Last 48 Hours 03/18/19 18:00 Wound Culture - Preliminary Abdomen Culture is incubating. - Clinical Findings Intake & Output: Intake & Output 03/18/19 03/18/19 03/19/19 15:59 23:59 07:59 Intake Total 0 653 203 / 653 Output Total 0 / 0 0 / 0 Balance 0 / 653 Weight 90.2 kg
[2019-03-19 08:04] LABS: Thyroid Stimulating Hormone 2.222 mcIU/mL (0.340-5.600); Triiodothyronine (T3) Free 1.42 pg/mL (2.50-3.90)
[2019-03-19] MEDS: Vasopressin 40 UNIT in D5% in Water 100 ML IV SCH (08:17)
[2019-03-19] MEDS: Gentamicin Oint 15 GM TUBE TP SCH (08:17)
[2019-03-19] MEDS: Hydrocortisone Sodium Succ 100 MG/2 ML VIAL IVP SCH (08:17)
[2019-03-19] MEDS: Calcium Acetate 667 MG CAPSULE PO SCH ×2 (08:17→13:15)
[2019-03-19] MEDS: Artificial Tears SOLN 15 ML BOTTLE BOTH EYES SCH ×2 (08:17→13:15)
[2019-03-19] MEDS: Metoprolol XL (24 HR) Succ 25 MG TAB.ER.24H PO SCH (08:17)
[2019-03-19 08:38] LABS: Vancomycin,Random 18 mcg/mL
[2019-03-19 09:30] LABS: Tolbutamide NOT DETECTED ng/mL (Cutoff 100)
--- NOTE | 2019-03-19 10:51 | Infectious Disease Progress No ---
ID Progress Note Date of Encounter: 03/19/19 Time of Encounter: 10:48 - Subjective Subjective: Patient seen and examined. Laying in bed. obtunded. does not asnwer questions or follow commands. Not on vent support. Unable to get ROS Vital signs noted Afebrile since 03/15 Labs reviewed - Objective CBC & Chem 7: 03/19/19 06:45 03/19/19 06:45 - Exam Vitals: Temp Pulse Resp BP Pulse Ox 98.8 F 90 12 161/96 100 03/19/19 07:30 03/19/19 10:00 03/19/19 10:00 03/19/19 10:00 03/19/19 10:00 Exam: GENERAL: Laying in Bed. obtunded. does not follow commands or answer questions. HEENT: JERE VERMA. oral lesions around her mouth. LUNGS: Air sounds audible both lung joaquin. I didnt' appreciate any wheezing/ronchi. poor inspiratory effort CV: RRR, S1 S2 ABDOMEN: Soft, nontender, + bowel sounds EXT: Adequate perfusion. diffuse anasarca NEURO: not alert or oriented - Assessment and Plan (1) Sepsis Current Visit: No Status: Suspected Sepsis on admission Now in septic shock etiology not clear I dont believe it's due to Calciphilaxis concern for other underlying infection or even noninfectious cause Qualifiers: Sepsis type: sepsis due to unspecified organism Qualified Code(s): A41.9 - Sepsis, unspecified organism SNOMED Code(s): 13441839 (2) Altered mental status Current Visit: No Status: Resolved etiology not clear could be due to underlying infection At this point encephalitis/meningitis cannot be ruled out because I cannot get any information from the patient check oral lesions for HSV PCR Qualifiers: Altered mental status type: unspecified Qualified Code(s): R41.82 - Altered mental status, unspecified SNOMED Code(s): 720912991 (3) Thrombocytopenia Current Visit: Yes Status: Acute Etiology unknown appreciate heme input SNOMED Code(s): 903115754 (4) Hypoproteinemia Current Visit: Yes Status: Acute SNOMED Code(s): 0108479 (5) Calciphylaxis Current Visit: No Status: Chronic no obvious infected wounds SNOMED Code(s): 512412108 (6) Anasarca associated with disorder of kidney Current Visit: No Status: Acute SNOMED Code(s): 24512441736106 (7) ESRD (end stage renal disease) on dialysis Current Visit: No Status: Chronic Missed 2 dialysis sessions prior to admission SNOMED Code(s): 488909692 (8) Myxedema Current Visit: No Status: Suspected TSH noted SNOMED Code(s): 56193906 (9) Anemia Current Visit: Yes Status: Chronic s/p iron transfusion going for EGD tomorrow Qualifiers: Anemia type: due to chronic kidney disease Chronic kidney disease stage: on chronic dialysis Qualified Code(s): N18.6 - End stage renal disease; D63.1 - Anemia in chronic kidney disease; Z99.2 - Dependence on renal dialysis SNOMED Code(s): 806467602 (10) Hypotension Current Visit: No Status: Resolved Qualifiers: Hypotension type: other hypotension type Qualified Code(s): I95.89 - Other hypotension SNOMED Code(s): 33104870 (11) Atrial fibrillation with RVR Current Visit: No Status: Acute SNOMED Code(s): 678057423047200 - Recommendations Recommendations: At this point, etiology of patient's issues are not clear could be infections? mastoiditis? vs leukemia vs endocrine? patient already on vanco and rosalia and her fever improved we will continue with current antibiotics check oral lesion for HSV PCR consider ENT to evaluate d/w ICU team, plan is to transfer to [facility] prognosis poor peripheral smear noted Consult Discharge Plan - Plan Referrals: Peter Vicente DO [Primary Care Provider] -
[2019-03-19] MEDS: Budesonide/Formoterol 80/4.5 1 PUFF INH IH SCH ×2 (10:53→20:21)
--- NOTE | 2019-03-19 10:57 | Internal Med Progress Note ---
Hospitalist Progress Note - Encounter Date of Encounter: 03/19/19 Time of Encounter: 07:35 - Subjective Interval History: Discussed the patient on rounds with Dr. Allen and ICU team and then on MDR rounds. Dr. Allen recommends transfer back to [facility] if patient and family wish to proceed with aggressive measures. I also spoke with Dr. Acosta, and he too recommends the same. Palliative care team to meet with family today and I will attempt to meet with them as well. If patient does not wish to proceed with comfort care measures only, then I will contact [facility] and request transfer as above. Additionally, we do not have endocrinology support. She had recent myxedema coma per report while at [facility]. I am unable to confirm this. We repeated her thyroid studies today and will start low dose Synthroid IV and titrate slowly. - Exam Vitals: Temp Pulse Resp BP Pulse Ox 98.8 F 90 12 161/96 100 03/19/19 07:30 03/19/19 10:00 03/19/19 10:00 03/19/19 10:00 03/19/19 10:00 Exam: General: somnolent; arouses to pain and verbal stimuli HEENT: dry mucosa, neck supple, sclera without icterus Chest: Clear BS but diminished bases; RRR, distant heart sounds Abdomen: soft, obese, tender lower abdominal lesions Ext: diffuse anasarca Neuro: somnolent, arouses to pain and verbal stimuli - Assessment and Plan (1) Septic shock Current Visit: Yes Assessment and Plan: 1. Resolved; cultures negative thus far. 2. Antibiotic de-escalation per ID. 3. Monitor hemodynamics. (2) Adrenal insufficiency Current Visit: Yes Status: Acute Assessment and Plan: 1. Wean steroids and monitor hemoydnamics. (3) Toxic metabolic encephalopathy Current Visit: Yes Status: Acute Assessment and Plan: 1. Likely multi-factorial. 2. CT Head negative yesterday. 3. Discussed on MDR rounds today. Palliative care to meet with patient and family. If she remains full code and requests aggressive measures, will seek transfer back to [facility]. (4) ESRD (end stage renal disease) on dialysis Current Visit: Yes Status: Chronic Assessment and Plan: 1. Nephrology managing HD needs. (5) Thrombocytopenia Current Visit: Yes Status: Acute Assessment and Plan: 1. HEM/ONC consulted; following patient. 2. Path review of blood smear pending; reviewed by HEM/ONC yesterday. - Time Spent with Patient Total time spent is greater than 50% in coordination of care (as documented) at patient's floor/unit and/or counseling patient: 25 - 35 minutes Internal Medicine: Result - Labs CBC & Chem 7: 03/19/19 06:45 03/19/19 06:45 Labs: Short CBC 03/18/19 03/18/19 03/18/19 Range/Units 12:00 13:04 18:15 WBC 3.9 L 4.9 5.0 (4.3-11.1) K/mcL Hgb 5.5 L* 6.9 L 6.9 L (11.5-15.4) g/dL Hct 17.6 L 21.3 L 21.9 L (35.3-44.9) % Plt Count 16 L* 18 L* 17 L* (140-400) K/mcL Neutrophils # 4.3 (1.6-8.9) K/mcL 03/19/19 Range/Units 06:45 WBC 5.0 (4.3-11.1) K/mcL Hgb 6.9 L (11.5-15.4) g/dL Hct 21.3 L (35.3-44.9) % Plt Count 21 L* (140-400) K/mcL Neutrophils # 4.3 (1.6-8.9) K/mcL BMP 03/19/19 03/19/19 00:00 06:45 Sodium 136 137 Potassium 5.2 H 5.2 H Chloride 99 98 Carbon Dioxide 18 L 21 L BUN 34 H 38 H Creatinine 3.80 H 4.14 H Glucose 78 87 Calcium 9.0 9.0 Liver Function 03/19/19 03/19/19 Range/Units 00:00 06:45 Total Bilirubin 1.7 H 1.6 H (0.3-1.0) mg/dL AST 14 12 L (13-39) Units/L ALT < 3 L < 3 L (7-52) Units/L Alkaline Phosphatase 95 89 (34-104) Units/L Albumin 3.4 L 3.3 L (3.5-5.7) g/dL - ABG Interpretation ABG results: ABG ABG pH 7.31 pH Units (7.32-7.45) L 03/19/19 05:36 ABG pCO2 40 mmHg (35-45) 03/19/19 05:36 ABG pO2 154 mmHg (85-104) H 03/19/19 05:36 ABG O2 Saturation 99 % (95-98) H 03/19/19 05:36 PT/INR, D-dimer PT 19.6 Seconds (9.4-12.1) H 03/19/19 06:45 - Impressions Impressions Abdomen Ultrasound 03/15/19 10:00 IMPRESSION: Cirrhotic morphology of the liver. Postcholecystectomy. D/ / 03/15/2019 12:00:06 Asai Rosario MD / bcarter Interpreting Provider: Asia Rosario MD Head CT 03/18/19 07:55 IMPRESSION: No acute intracranial abnormality. Sequela of chronic small vessel ischemic change. Increasing opacification of the middle ear canal and mastoid air cells on the left and the right mastoid air cells. D/ / 03/18/2019 11:24:53 Ranulfo Mccurdy MD / earnold Interpreting Provider: Ranulfo Mccurdy MD Consult Discharge Plan - Plan Referrals: Peter Vicente DO [Primary Care Provider] -
--- NOTE | 2019-03-19 11:00 | Nephrology Progress Note ---
Date of Encounter: 03/19/19 Time of Encounter: 10:57 - Assessment and Plan (1) ESRD (end stage renal disease) on dialysis Current Visit: Yes Status: Chronic HD TTS. Plan for HD today. Renal vitamins. Renal dose medications. Renal diet. Additional dialysis and ultrafiltration as needed. The patient's prognosis is poor, appreciate Palliative recommendations. (2) Abdominal pain Current Visit: No Status: Acute Per primary. Qualifiers: Qualified Code(s): R10.30 - Lower abdominal pain, unspecified (3) Hypoglycemia Current Visit: Yes Status: Acute Management per the primary team. (4) Acute anemia Current Visit: No Status: Acute Transfusion parameters per primary team Hgb goal is 10-11. Subjective Principal diagnosis: weakness, hypoglycemia Interval history: Pt seen and examined in ICU. Patient will arouse to name, will not answer direct questions. Moans when spoken to. ROS unobtainable due to mentation. Objective - Vital Signs Vital signs: Vital Signs Temp Pulse Resp BP Pulse Ox 03/19/19 10:00 90 12 161/96 100 03/19/19 09:00 90 12 158/95 100 03/19/19 08:00 90 13 169/101 100 03/19/19 07:30 98.8 F 03/19/19 07:00 88 10 161/96 100 03/19/19 06:00 89 8 159/94 100 03/19/19 05:00 91 8 160/96 100 03/19/19 04:00 96 8 159/96 100 03/19/19 03:00 92 10 161/98 100 03/19/19 02:00 90 13 159/96 100 03/19/19 01:00 90 10 152/92 91 03/19/19 00:00 98.1 F 96 14 161/95 94 03/18/19 23:00 90 15 155/92 97 03/18/19 22:00 90 16 151/89 92 03/18/19 21:00 96 17 157/93 98 03/18/19 20:28 16 100 03/18/19 20:00 98.3 F 91 15 159/96 100 03/18/19 19:00 91 16 158/98 100 03/18/19 18:00 98 15 171/105 100 03/18/19 16:19 98.5 F 91 12 150/87 03/18/19 16:00 89 09/02/19 15:23 98.3 F 93 11 151/88 03/18/19 15:22 98.5 F 90 10 149/87 03/18/19 15:00 98.5 F 89 10 148/86 100 03/18/19 14:20 98.8 F 03/18/19 14:00 91 12 149/88 100 03/18/19 12:00 93 13 143/83 100 03/18/19 11:57 99.0 F 03/18/19 11:00 92 10 140/78 100 Intake and Output 03/18/19 03/19/19 03/19/19 23:59 07:59 15:59 Intake Total Output Total 0 / 0 Balance Intake: IV Fluids 0 / 0 Merrem 500 MG In Water for inj. 0 / 0 (sterile) 10 ML @ 200 mls/hr IVPB Q24H [facility] Rx#:[id number] Blood Product Platelet Pheresis Lp 2nd Unit [id number] Output: Rectal Tube 0 / 0 Other: Stool Color Green Weight 90.2 kg Blood Glucose* 86 85 Patient Weight 03/19/19 23:59 Weight 90.2 kg - General Appearance General appearance: Present: chronically ill, frail EENT: Present: ATNC, hearing intact, vision intact Neck: Present: supple Respiratory: Present: clear Cardiology: Present: edema (Pitting edema noted to abdomen. ), normal S1, normal S2 Dialysis Vascular Access: Arteriovenous Fistula thrill: Yes bruit: Yes Gastrointestinal: Present: normoactive bowel sounds, no tenderness, no guarding Integumentary: Present: no rash, warm and dry Neurologic: Present: confused Musculoskeletal: Present: no deformities, no erythema Psychiatric: Present: mood/affect appropriate, cooperative - Lab 03/19/19 06:45 03/19/19 06:45 Most recent lab results 03/19/19 03/19/19 03/19/19 00:00 05:36 06:45 ABG pH 7.31 L ABG pCO2 40 ABG pO2 154 H ABG HCO3 21 ABG O2 Saturation 99 H Calcium 9.0 9.0 Consult Discharge Plan - Plan Referrals: Peter Vicente DO [Primary Care Provider] -
--- NOTE | 2019-03-19 11:05 | Palliative - Consult Note ---
Date of Encounter: 03/19/19 Time of Encounter: 10:10 - Assessment and Plan (1) Pain Current Visit: Yes Status: Acute Assessment and plan: Patient received 1 dose of Oxycodone 5mg, with minimal improvement. Will increase Oxycdone t 10 mg q4hrs scheduled and add phentanyl 50mcg IV prn (2) Goals of care, counseling/discussion Current Visit: No Status: Acute Assessment and plan: [id number]: conducted family meeting along with Dr Arndt, and pc resident Dr Workman. Present were pt's significant other Matthew, Daughter Nicolasa and son. Discussed current medical condition, trajectory of illness, treatment options and overall poor prognosis. Explained that pt is critical at this point, due to sepsis not responsive to current medical treatment. Expressed the concern that pt's overall health is poor and is not expected to improve even if she was to survive current hospital stay. Nicolasa noted that patient is suffering, and family agreed that she would not want to continue suffering if ultimately she cannot recover her health. Family decided against any further aggressive management, including hemodialysis and possible transfer to tertiary hospital. Patient was made DNRCC with focus on comfort only. Plan: Dc HD dc antibiotics, blood work, IVF and any measure not related to comfort care. Start Oxycodone 10 mg po scheduled and fentanyl 50 mcg IV prn Atropine prn for secretions May transfer out of ICU to a palliative care bed under hospitalist team. Pt will be re-evaluated tomorrow and if stable will discuss with family for transition to hospice care. I spent 20 minutes total time with patient, family member(s) and/or surrogate discussing advance care planning to include explanation/discussion of advanced directives. Please note this time was additional time spent with patient, family and/or surrogate not involving active management of patient's conditions or treatments. (3) Calciphylaxis Current Visit: No Status: Chronic Assessment and plan: Patient has multiple wounds due to calciphylaxis. Transitioned to comfort care only. (4) ESRD on hemodialysis Current Visit: No Status: Chronic Assessment and plan: Will discontinue HD per family wishes. (5) Wound, open, abdominal wall, anterior Current Visit: No Status: Acute Assessment and plan: Pain management Wound care Qualifiers: Encounter type: initial encounter Qualified Code(s): S31.109A - Unspecified open wound of abdominal wall, unspecified quadrant without penetration into peritoneal cavity, initial encounter (6) Sepsis Current Visit: No Status: Suspected Assessment and plan: comfort measures only, dc antibiotics Qualifiers: Sepsis type: sepsis due to unspecified organism Qualified Code(s): A41.9 - Sepsis, unspecified organism; R65.20 - Severe sepsis without septic shock (7) Thrombocytopenia Current Visit: Yes Status: Acute (8) Palliative care encounter Current Visit: Yes Status: Acute Palliative-CN HPI - Data of Consult Patient: known to practice within the last 3 years Consult date: 03/19/19 Requesting Physician: Deborah Cancino MD Primary Care Provider: Peter Vicente DO - Consult Narrative Palliative Care/Comfort Measures: Palliative care Reason for consult: Goals of care History of present illness: Ms. Alexis is a 44 year old female with a past medical history of end-stage renal disease on hemodialysis Monday//Monday, calciphylaxis, A. fib, cardiomyopathy, diabetes, GI bleed, hyperlipidemia, and hypertension. Per cart review, pt was found unresponsive at home due to hypoglycemia, in the ED was fluid overloaded due to missed HD and was admitted. Since admission, patient was initially hypothermic then had a tmax of 101F. She was tachycardic with no tachypnea. Labs revealed no leukocytosis but she was anemic and had thrombocytopenia. Head CT with no acute process. Patient was started on antibiotics. Nephrology was called, but pt became hypotensive and unable to tolerate HD. Palliative care consult for GOC discussion. At the time of exam, pt is in ICU, on oxygen nc, not on pressors, she moans and groans when stimulated, but does not open eyes or follow commands. CC: Deborah Cancino MD - Time Spent with Patient Time: Total time spent is greater than 50% in coordination of care (as documented) at patient's floor/unit and/or counseling patient: Time with patient: 75 minutes Past Med Surg Social Fam HX - Past Medical History Medical history: asthma, atrial fibrillation, cardiomyopathy, diabetes, dialysis, GI bleed, hyperlipidemia, hypertension, renal disease, thyroid disease Additional medical history: T dialysis Psychiatric history: no psych history - Past Surgical History Surgical History: appendectomy, cholecystectomy, thyroidectomy, transplant, other Additional surgical history: KIDNEY TRANSPLANT 2007, TUBAL LIGATION, left antecubital AV fistula, multiple surgical and endovascular interventions for the left antecubital AV fistula, and placement of a left upper arm AV shunt - Social History Smoking Status: Never smoker Smokeless Tobacco Status: No Alcohol use: none Drug use: none - Family History Father Adopted: No Family Member Ethnicity: Non- Living Status: Hx Family Cardiac Disorders: Yes Hx Family Respiratory Disorders: Yes Hx Family Cancer: Yes Hx Family GI Disorders: No Hx Family Endocrine Disorder: Yes Hx Family Neuromuscular Disorders: No Hx Family Neurologic Disorders: No Hx Family HEENT Disorders: No Hx Family Autoimmune Disorders: No Mother Adopted: No Living Status: Hx Family Cardiac Disorders: Yes Hx Family Respiratory Disorders: No Hx Family Cancer: Yes Hx Family GI Disorders: No Hx Family Endocrine Disorder: No Hx Family Neuromuscular Disorders: No Hx Family Neurologic Disorders: No Hx Family HEENT Disorders: No Hx Family Autoimmune Disorders: No Medications and Allergies Albuterol Sulfate [Proventil Inhaler] 2 puff IH Q4HR PRN 03/11/19 [History] Apixaban [Eliquis] 2.5 mg PO BID 03/11/19 [History] Atorvastatin [Lipitor] 40 mg PO HS 03/11/19 [History] Budesonide/Formoterol 80/4.5 [Symbicort 80/4.5] 2 puff IH Q12H 03/11/19 [History] Cyclobenzaprine HCl 10 mg PO TID PRN 03/11/19 [History] Daptomycin [Cubicin Rf] 500 mg IV Q48H 03/11/19 [History] Ertapenem [INVanz] 500 mg IVPB QPM 03/11/19 [History] Esomeprazole Magnesium [Nexium] 40 mg PO DAILY@0730 03/11/19 [History] Levothyroxine Sodium [Levo-T] 300 mcg PO DAILY 03/11/19 [History] Metoprolol Succinate [Toprol Xl] 25 mg PO DAILY 03/11/19 [History] Calcium Acetate [Phos-LO] 1,334 mg PO TIDWM 03/12/19 [History] DAPTOmycin [Cubicin] 300 mg IV Q48H 03/12/19 [History] Sodium Thiosulfate 25 gm IV TUTHSA 03/12/19 [History] Allergy/AdvReac Type Severity Reaction Status Date / Time morphine Allergy See Verified 02/22/19 22:25 Comments Warfarin [From Coumadin] Allergy Anaphylaxis Verified 02/22/19 22:25 heparin AdvReac Severe Unresponsiv Verified 02/22/19 22:25 e ROS unobtainable: due to mental status Palliative Care-Exam - Constitutional Vitals: Temp Pulse Resp BP Pulse Ox 98.8 F 90 12 161/96 100 03/19/19 07:30 03/19/19 10:00 03/19/19 10:00 03/19/19 10:00 03/19/19 10:00 General appearance: Present: obese. Absent: febrile - Head Head Exam: Present: atraumatic - ENT ENT exam: Present: mucous membranes dry - Respiratory Respiratory exam: Present: decreased breath sounds. Absent: respiratory distress - GI/Abdominal Exam additional comments: several abdominal wounds, very tender to touch - Extremities Exam Additional comments: anasarca, - Neurological Exam Additional comments: unresponsive, moans and cries when touched - Skin Additional comments: dry flaking skin noted diffusely, chronic seeping wounds in the bilateral groin. Internal Medicine - CN: Reslt - Labs CBC & Chem 7: 03/19/19 06:45 03/19/19 06:45 Labs: Short CBC 03/18/19 03/18/19 03/18/19 Range/Units 12:00 13:04 18:15 WBC 3.9 L 4.9 5.0 (4.3-11.1) K/mcL Hgb 5.5 L* 6.9 L 6.9 L (11.5-15.4) g/dL Hct 17.6 L 21.3 L 21.9 L (35.3-44.9) % Plt Count 16 L* 18 L* 17 L* (140-400) K/mcL Neutrophils # 4.3 (1.6-8.9) K/mcL 03/19/19 Range/Units 06:45 WBC 5.0 (4.3-11.1) K/mcL Hgb 6.9 L (11.5-15.4) g/dL Hct 21.3 L (35.3-44.9) % Plt Count 21 L* (140-400) K/mcL Neutrophils # 4.3 (1.6-8.9) K/mcL BMP 03/19/19 03/19/19 00:00 06:45 Sodium 136 137 Potassium 5.2 H 5.2 H Chloride 99 98 Carbon Dioxide 18 L 21 L BUN 34 H 38 H Creatinine 3.80 H 4.14 H Glucose 78 87 Calcium 9.0 9.0 Liver Function 03/19/19 03/19/19 Range/Units 00:00 06:45 Total Bilirubin 1.7 H 1.6 H (0.3-1.0) mg/dL AST 14 12 L (13-39) Units/L ALT < 3 L < 3 L (7-52) Units/L Alkaline Phosphatase 95 89 (34-104) Units/L Albumin 3.4 L 3.3 L (3.5-5.7) g/dL - ABG Interpretation ABG results: ABG ABG pH 7.31 pH Units (7.32-7.45) L 03/19/19 05:36 ABG pCO2 40 mmHg (35-45) 03/19/19 05:36 ABG pO2 154 mmHg (85-104) H 03/19/19 05:36 ABG O2 Saturation 99 % (95-98) H 03/19/19 05:36 PT/INR, D-dimer PT 19.6 Seconds (9.4-12.1) H 03/19/19 06:45 - Impressions Impressions Abdomen Ultrasound 03/15/19 10:00 IMPRESSION: Cirrhotic morphology of the liver. Postcholecystectomy. D/ / 03/15/2019 12:00:06 Asia Rosario MD / bcarter Interpreting Provider: Asia Rosario MD Head CT 03/18/19 07:55 IMPRESSION: No acute intracranial abnormality. Sequela of chronic small vessel ischemic change. Increasing opacification of the middle ear canal and mastoid air cells on the left and the right mastoid air cells. D/ / 03/18/2019 11:24:53 Ranulfo Mccurdy MD / earnold Interpreting Provider: Ranulfo Mccurdy MD Consult Discharge Plan - Plan Referrals: Peter Vicente DO [Primary Care Provider] - Palliative Quality Palliative Quality: Screen for Code Status: Yes, Screen for Goals of Care: Yes, Screen for Pain: Yes, If Pain Regimen Started, Initiate Bowel Regimen: Yes, Screen for Nausea/Vomitting: NA Code Status: 03/11/19 17:13 Resuscitation Status: Active [RES] Routine Comment: Resuscitation Status: Full Code
[2019-03-19] MEDS ORDERED: Aminoglycoside Consult 1 EACH MC ONE (11:07)
[2019-03-19 11:11] LABS: Magnesium 2.3 mg/dL (1.6-2.6); Phosphorous 5.3 mg/dL (2.7-4.5)
[2019-03-19] MEDS ORDERED: Levothyroxine Sodium 100 MCG VIAL IVP SCH (11:34)
[2019-03-19] MEDS ORDERED: D10% in Water 500 ML IVC PRN (11:42)
[2019-03-19] MEDS ORDERED: Insulin LISPRO 300 UNITS/3 ML VIAL SQ SCH (12:00)
[2019-03-19] MEDS ORDERED: *HR* FentaNYL (PF) 100 MCG/2 ML VIAL IVP PRN (14:38)
[2019-03-19] MEDS ORDERED: *HR* Metoprolol 5 MG/5 ML VIAL IVP STA (15:15)
[2019-03-19] MEDS ORDERED: *HR* Metoprolol 5 MG/5 ML VIAL IVP ONE (15:15)
[2019-03-19] MEDS ORDERED: DESMOPRESSIN ACETATE IVPB SCH (15:45)
[2019-03-19] MEDS ORDERED: SODIUM CHLORIDE 0.9% IVPB ONE (15:45)
[2019-03-19] MEDS ORDERED: SODIUM CHLORIDE 0.9% IVPB SCH (15:45)
[2019-03-19] MEDS ORDERED: DESMOPRESSIN ACETATE IVPB ONE (15:45)
[2019-03-19] MEDS ORDERED: Clinimix 5%-20% SOLUTION 2,000 ML with MVI, adult with vitamin K 10 ML, Sodium Phosph... IVC SCH (17:00)
[2019-03-19] MEDS ORDERED: *HR* Promethazine 25 MG/ML VIAL IVP PRN (17:02)
[2019-03-19] MEDS ORDERED: Ondansetron 4 MG/2 ML VIAL IVP PRN (17:02)
--- NOTE | 2019-03-19 17:41 | Event Note ---
Date of Encounter: 03/19/19 Time of Encounter: 17:38 I met with family and palliative care team earlier this afternoon. Family decided to proceed with comfort care measures only and to stop all other treatment measures. As such, patient was transferred out of ICU to palliative care unit under the hospitalist service with palliative care consultation.
[2019-03-20] MEDS: Artificial Tears SOLN 15 ML BOTTLE BOTH EYES SCH ×5 (00:45→22:59)
[2019-03-20] MEDS: *HR* FentaNYL (PF) 100 MCG/2 ML VIAL IVP PRN ×2 (00:46→20:23)
[2019-03-20 05:21] LABS: Magnesium 2.4 mg/dL (1.6-2.6); Phosphorous 6.6 mg/dL (2.7-4.5)
[2019-03-20] MEDS ORDERED: Scopolamine Patch 1.5 MG PATCH.TD72 TD SCH (09:30)
--- NOTE | 2019-03-20 09:31 | Palliative Progress Note ---
<Norah Workman B - Last Filed: 03/20/19 11:25> Date of Encounter: 03/20/19 Time of Encounter: 07:30 - Assessment and plan (1) Encounter for hospice care Current Visit: Yes Status: Acute Assessment and plan: Patient was seen today for hospice care. Patient is currently resting comfortably. Will continue to make patient as comfortable as possible. Patient's boyfriend (POA) is at bedside today. (2) Dyspnea Current Visit: Yes Status: Acute Assessment and plan: Continue use of mediations to make patient's dyspnea comfortable. Continue NC as needed. Patient currently has Sudhir Dutta breathing pattern. (3) Terminal respiratory secretions Current Visit: Yes Status: Acute Assessment and plan: Start scopolamine patch for terminal respiratory secretions (4) Generalized pain Current Visit: Yes Status: Acute Assessment and plan: Continue pain management as needed for generalized pain. At this time patient does not appear to be in pain. (5) Septic shock Current Visit: Yes Status: Acute (6) Thrombocytopenia Current Visit: Yes Status: Acute (7) Toxic metabolic encephalopathy Current Visit: Yes Status: Acute (8) Anemia Current Visit: Yes Status: Chronic Qualifiers: Anemia type: due to chronic kidney disease Chronic kidney disease stage: unspecified stage Qualified Code(s): N18.9 - Chronic kidney disease, unspecified; D63.1 - Anemia in chronic kidney disease (9) End stage chronic kidney disease Current Visit: Yes Status: Chronic Assessment and plan: Patient no longer on dialysis as patient is currently comfort care only (10) Calciphylaxis Current Visit: No Status: Chronic - Time Spent With Patient Total time spent is greater than 50% in coordination of care (as documented) at patient's floor/unit and/or counseling patient: 25 - 35 minutes - Subjective Interval history: Ms Alexis is a 44 year old female with a past medical history of end-stage renal disease on hemodialysis Monday//Monday, calciphylaxis, A. fib, cardiomyopathy, diabetes, GI bleed, hyperlipidemia, and hypertension. Per cart review, pt was found unresponsive at home due to hypoglycemia, in the ED was fluid overloaded due to missed HD and was admitted. After discussion with the patient's family she was made comfort care. Patient is resting comfortably today. She was not responsive to touch today. Patient's boyfriend was in the room. - Constitutional Vitals: Abnormal lab results WBC 3.9 K/mcL (4.3-11.1) L 03/18/19 12:00 RBC 2.13 M/mcL (3.82-4.97) L 03/19/19 06:45 Hgb 6.9 g/dL (11.5-15.4) L 03/19/19 06:45 Hct 21.3 % (35.3-44.9) L 03/19/19 06:45 MCV 101.4 fL (83.0-100.0) H 03/18/19 18:15 MCHC 31.5 g/dL (31.6-35.5) L 03/18/19 18:15 RDW 18.5 % (11.5-14.5) H 03/19/19 06:45 Plt Count 21 K/mcL (140-400) L* 03/19/19 06:45 MPV 12.8 fL (9.4-12.4) H 03/18/19 18:15 Reticulocyte # 0.01 M/mcL (0.05-0.10) L 03/19/19 00:00 Neutrophils # 12.9 K/mcL (1.6-8.9) H 03/17/19 03:27 Lymphocytes # 0.4 K/mcL (0.6-4.6) L 03/19/19 06:45 Platelet Estimate Marked Decrease (Normal) L 03/18/19 13:04 Immature Plt Fraction 21.1 % (1.1-6.1) H 03/19/19 06:45 Hypochromasia Present (Not Present) A 03/16/19 03:20 Anisocytosis 1+ (Not Present) A 03/16/19 03:20 Macrocytosis Present (Not Present) A 03/15/19 09:41 Percent Retic 0.4 % (1.6-2.8) L 03/19/19 00:00 Immature Retic Fraction 1.6 % (11.0-38.0) L 03/19/19 00:00 Retic Hgb Equivalent 37.9 pg (28.61-36.33) H 03/19/19 00:00 PT 19.6 Seconds (9.4-12.1) H 03/19/19 06:45 APTT 39.1 Seconds (26.0-36.0) H 03/19/19 06:45 Fibrinogen 110 mg/dL (169-393) L 03/19/19 06:45 ABG pH 7.31 pH Units (7.32-7.45) L 03/19/19 05:36 ABG pO2 154 mmHg (85-104) H 03/19/19 05:36 ABG HCO3 19 mEq/L (21-27) L 03/17/19 12:13 ABG Total CO2 27 mEq/L (20-26) H 03/14/19 16:31 ABG O2 Saturation 99 % (95-98) H 03/19/19 05:36 ABG Base Excess -5 mEq/L (-2 to 3) L 03/19/19 05:36 Sodium 135 mEq/L (136-145) L 03/17/19 03:27 Potassium 5.2 mEq/L (3.5-5.1) H 03/19/19 06:45 Chloride 97 mEq/L (98-107) L 03/18/19 05:30 Carbon Dioxide 21 mEq/L (23-29) L 03/19/19 06:45 BUN 38 mg/dL (6-20) H 03/19/19 06:45 Creatinine 4.14 mg/dL (0.60-1.20) H 03/19/19 06:45 Est GFR ( Amer) 14 (> 60) L 03/19/19 06:45 Est GFR (Non-Af Amer) 12 (> 60) L 03/19/19 06:45 Glucose 158 mg/dL (70-105) H 03/17/19 03:27 POC Glucose 105 mg/dL (70-99) H 03/17/19 22:13 Calculated Osmolality 301 (280-300) H 03/11/19 14:51 Calcium 8.4 mg/dL (8.6-10.3) L 03/17/19 03:27 Phosphorus 6.6 mg/dL (2.7-4.5) H 03/20/19 04:08 Magnesium 1.5 mg/dL (1.6-2.6) L 03/15/19 09:41 Transferrin < 75 mg/dL (203-362) L 03/19/19 00:00 Ferritin > 1500 ng/mL (10-120) H 03/19/19 00:00 Total Bilirubin 1.6 mg/dL (0.3-1.0) H 03/19/19 06:45 Direct Bilirubin 0.3 mg/dL (0.0-0.2) H 03/11/19 14:51 AST 12 Units/L (13-39) L 03/19/19 06:45 ALT < 3 Units/L (7-52) L 03/19/19 06:45 Alkaline Phosphatase 111 Units/L (34-104) H 03/12/19 03:58 Serum Total Protein 5.6 g/dL (6.4-8.9) L 03/19/19 06:45 Albumin 3.3 g/dL (3.5-5.7) L 03/19/19 06:45 Globulin 2.3 g/dL (2.4-3.5) L 03/19/19 06:45 Albumin/Globulin Ratio 1.0 (1.1-2.2) L 03/16/19 03:20 HDL Cholesterol 5 mg/dL (40-59) L 03/12/19 03:58 Cholesterol/HDL Ratio 6.4 (0-4.9) H 03/12/19 03:58 Folate 17.7 ng/mL (3.0-16.0) H 03/12/19 03:58 TSH 7.987 mcIU/mL (0.340-5.600) H 03/11/19 14:51 Free T4 0.39 ng/dl (0.70-2.00) L 03/19/19 06:45 Free T3 1.42 pg/mL (2.50-3.90) L 03/19/19 06:45 Total T3 0.29 ng/mL (0.87-1.78) L 03/15/19 09:41 Vancomycin Trough 22 mcg/mL (5-10) H 03/17/19 03:27 Complement C3 64 mg/dL (87-200) L 03/19/19 00:00 Hep Bs Antibody < 3.10 mIU/mL (10.00-) L 03/18/19 07:25 Direct Antiglob Test 2+ (Negative) A 03/18/19 17:00 Crossmatch See Detail 03/13/19 10:01 General appearance: Present: no acute distress - Head Head exam: Present: atraumatic, normocephalic - Respiratory Respiratory exam: Present: accessory muscle use Additional comments: Sudhir Dutta breathing. - Cardiovascular Cardiovascular exam: Present: RRR, +S1, +S2 - GI/Abdominal GI/Abdominal exam: Present: soft. Absent: tenderness - Extremities Exam Extremities exam: Present: pedal edema - Neurological Exam Neurological exam: Absent: alert - Skin Additional comments: patient has abdominal wounds that were not observed today Palliative Quality Palliative Quality: Screen for Code Status: Yes, Screen for Goals of Care: Yes, Screen for Pain: Yes, If Pain Regimen Started, Initiate Bowel Regimen: Yes, Screen for Nausea/Vomitting: NA Code Status: 03/11/19 17:13 Resuscitation Status: Active [RES] Routine Comment: Resuscitation Status: Full Code 03/19/19 14:15 Resuscitation Status: Active [RES] Routine Comment: Resuscitation Status: DNR-Comfort Care - Labs CBC & Chem 7: 03/19/19 06:45 03/19/19 06:45 Labs: Laboratory Results - last 24 hr 03/14/19 03/19/19 03/19/19 13:52 06:45 06:45 PT 19.6 H INR 1.7 APTT 39.1 H POC Glucose Phosphorus 5.3 H Magnesium 2.3 Triglycerides Nateglinide NOT DETECTED Repaglinide NOT DETECTED Chlorpropamide NOT DETECTED Tolbutamide NOT DETECTED Tolazamide NOT DETECTED Acetohexamide NOT DETECTED Glimepiride NOT DETECTED Glipizide NOT DETECTED Glibenclamide NOT DETECTED 03/19/19 03/20/19 13:23 04:08 PT INR APTT POC Glucose 87 Phosphorus 6.6 H Magnesium 2.4 Triglycerides 94 Nateglinide Repaglinide Chlorpropamide Tolbutamide Tolazamide Acetohexamide Glimepiride Glipizide Glibenclamide - Impressions Impressions Guidance Ultrasound 03/17/19 00:00 IMPRESSION: Successful ultrasound guided non-tunneled 3 lumen CVC catheter placement. D/ / Matthew Hill MD / Matthew Hill MD Interpreting Provider: Matthew Hill MD Insertion Non-Tunneled Catheter 03/17/19 00:00 IMPRESSION: Successful ultrasound guided non-tunneled 3 lumen CVC catheter placement. D/ / Matthew Hill MD / Matthew Hill MD Interpreting Provider: Matthew Hill MD - ABG Interpretation ABG results: ABG ABG pH 7.31 pH Units (7.32-7.45) L 03/19/19 05:36 ABG pCO2 40 mmHg (35-45) 03/19/19 05:36 ABG pO2 154 mmHg (85-104) H 03/19/19 05:36 ABG O2 Saturation 99 % (95-98) H 03/19/19 05:36 PT/INR, D-dimer PT 19.6 Seconds (9.4-12.1) H 03/19/19 06:45 Palliative Scale - Palliative Performance Scale How ambulatory is this patient?: Totally bed bound What is patient's level of activity and evidence of disease?: Unable to do any activity, Extensive disease How much self-care assistance does patient require?: Total care How much oral intake does the patient have?: Mouth care only What is this patient's level of consciousness?: Drowsy or coma with or without confusion Palliative Performance Score: 10 % Consult Discharge Plan - Plan Referrals: Peter Vicente DO [Primary Care Provider] - <AndrewIza lee - Last Filed: 03/20/19 14:17> Date of Encounter: 03/20/19 - Assessment and plan (1) Pain Current Visit: Yes Status: Acute (2) Goals of care, counseling/discussion Current Visit: No Status: Acute (3) Calciphylaxis Current Visit: No Status: Chronic (4) ESRD on hemodialysis Current Visit: No Status: Chronic (5) Wound, open, abdominal wall, anterior Current Visit: No Status: Acute Qualifiers: Encounter type: initial encounter Qualified Code(s): S31.109A - Unspecified open wound of abdominal wall, unspecified quadrant without penetration into peritoneal cavity, initial encounter (6) Sepsis Current Visit: No Status: Suspected Qualifiers: Sepsis type: sepsis due to unspecified organism Qualified Code(s): A41.9 - Sepsis, unspecified organism; R65.20 - Severe sepsis without septic shock (7) Thrombocytopenia Current Visit: Yes Status: Acute (8) Palliative care encounter Current Visit: Yes Status: Acute - Time Spent With Patient Total time spent is greater than 50% in coordination of care (as documented) at patient's floor/unit and/or counseling patient: - Constitutional Vitals: Abnormal lab results WBC 3.9 K/mcL (4.3-11.1) L 03/18/19 12:00 RBC 2.13 M/mcL (3.82-4.97) L 03/19/19 06:45 Hgb 6.9 g/dL (11.5-15.4) L 03/19/19 06:45 Hct 21.3 % (35.3-44.9) L 03/19/19 06:45 MCV 101.4 fL (83.0-100.0) H 03/18/19 18:15 MCHC 31.5 g/dL (31.6-35.5) L 03/18/19 18:15 RDW 18.5 % (11.5-14.5) H 03/19/19 06:45 Plt Count 21 K/mcL (140-400) L* 03/19/19 06:45 MPV 12.8 fL (9.4-12.4) H 03/18/19 18:15 Reticulocyte # 0.01 M/mcL (0.05-0.10) L 03/19/19 00:00 Neutrophils # 12.9 K/mcL (1.6-8.9) H 03/17/19 03:27 Lymphocytes # 0.4 K/mcL (0.6-4.6) L 03/19/19 06:45 Platelet Estimate Marked Decrease (Normal) L 03/18/19 13:04 Immature Plt Fraction 21.1 % (1.1-6.1) H 03/19/19 06:45 Hypochromasia Present (Not Present) A 03/16/19 03:20 Anisocytosis 1+ (Not Present) A 03/16/19 03:20 Macrocytosis Present (Not Present) A 03/15/19 09:41 Percent Retic 0.4 % (1.6-2.8) L 03/19/19 00:00 Immature Retic Fraction 1.6 % (11.0-38.0) L 03/19/19 00:00 Retic Hgb Equivalent 37.9 pg (28.61-36.33) H 03/19/19 00:00 PT 19.6 Seconds (9.4-12.1) H 03/19/19 06:45 APTT 39.1 Seconds (26.0-36.0) H 03/19/19 06:45 Fibrinogen 110 mg/dL (169-393) L 03/19/19 06:45 ABG pH 7.31 pH Units (7.32-7.45) L 03/19/19 05:36 ABG pO2 154 mmHg (85-104) H 03/19/19 05:36 ABG HCO3 19 mEq/L (21-27) L 03/17/19 12:13 ABG Total CO2 27 mEq/L (20-26) H 03/14/19 16:31 ABG O2 Saturation 99 % (95-98) H 03/19/19 05:36 ABG Base Excess -5 mEq/L (-2 to 3) L 03/19/19 05:36 Sodium 135 mEq/L (136-145) L 03/17/19 03:27 Potassium 5.2 mEq/L (3.5-5.1) H 03/19/19 06:45 Chloride 97 mEq/L (98-107) L 03/18/19 05:30 Carbon Dioxide 21 mEq/L (23-29) L 03/19/19 06:45 BUN 38 mg/dL (6-20) H 03/19/19 06:45 Creatinine 4.14 mg/dL (0.60-1.20) H 03/19/19 06:45 Est GFR ( Amer) 14 (> 60) L 03/19/19 06:45 Est GFR (Non-Af Amer) 12 (> 60) L 03/19/19 06:45 Glucose 158 mg/dL (70-105) H 03/17/19 03:27 POC Glucose 105 mg/dL (70-99) H 03/17/19 22:13 Calculated Osmolality 301 (280-300) H 03/11/19 14:51 Calcium 8.4 mg/dL (8.6-10.3) L 03/17/19 03:27 Phosphorus 6.6 mg/dL (2.7-4.5) H 03/20/19 04:08 Magnesium 1.5 mg/dL (1.6-2.6) L 03/15/19 09:41 Transferrin < 75 mg/dL (203-362) L 03/19/19 00:00 Ferritin > 1500 ng/mL (10-120) H 03/19/19 00:00 Total Bilirubin 1.6 mg/dL (0.3-1.0) H 03/19/19 06:45 Direct Bilirubin 0.3 mg/dL (0.0-0.2) H 03/11/19 14:51 AST 12 Units/L (13-39) L 03/19/19 06:45 ALT < 3 Units/L (7-52) L 03/19/19 06:45 Alkaline Phosphatase 111 Units/L (34-104) H 03/12/19 03:58 Serum Total Protein 5.6 g/dL (6.4-8.9) L 03/19/19 06:45 Albumin 3.3 g/dL (3.5-5.7) L 03/19/19 06:45 Globulin 2.3 g/dL (2.4-3.5) L 03/19/19 06:45 Albumin/Globulin Ratio 1.0 (1.1-2.2) L 03/16/19 03:20 HDL Cholesterol 5 mg/dL (40-59) L 03/12/19 03:58 Cholesterol/HDL Ratio 6.4 (0-4.9) H 03/12/19 03:58 Folate 17.7 ng/mL (3.0-16.0) H 03/12/19 03:58 TSH 7.987 mcIU/mL (0.340-5.600) H 03/11/19 14:51 Free T4 0.39 ng/dl (0.70-2.00) L 03/19/19 06:45 Free T3 1.42 pg/mL (2.50-3.90) L 03/19/19 06:45 Total T3 0.29 ng/mL (0.87-1.78) L 03/15/19 09:41 Vancomycin Trough 22 mcg/mL (5-10) H 03/17/19 03:27 Complement C3 64 mg/dL (87-200) L 03/19/19 00:00 Hep Bs Antibody < 3.10 mIU/mL (10.00-) L 03/18/19 07:25 Direct Antiglob Test 2+ (Negative) A 03/18/19 17:00 Crossmatch See Detail 03/13/19 10:01 - Attending Attestation I examined this patient and my medical decision-making was reviewed with the Re sident Physician. I agree with the documented findings, disposition and treatment plan as described except to the extent set forth below. Patient today was unresponsive, with shallow breathing, that became tachypneic on tactile stimuli. Increased secretions. Plan: Continue oxycodone scheduled and phentanyl prn for pain and dyspnea scopolamine patch and atropine for secretions. Pt significant other Pasquale was present, explained the prognosis of hours to days. Pasquale was appropriately emotional, and will relay the information to Patient's children. Due to patient's short prognosis, hospice admission will entail undue emotional stress on pt's family for a very short stay. Will keep pt on current treatment team with palliative care support. Palliative Quality Code Status: 03/11/19 17:13 Resuscitation Status: Active [RES] Routine Comment: Resuscitation Status: Full Code 03/19/19 14:15 Resuscitation Status: Active [RES] Routine Comment: Resuscitation Status: DNR-Comfort Care - Labs CBC & Chem 7: 03/19/19 06:45 03/19/19 06:45 Labs: Laboratory Results - last 24 hr 03/18/19 03/20/19 17:00 04:08 Haptoglobin 74 Phosphorus 6.6 H Magnesium 2.4 Triglycerides 94 - ABG Interpretation ABG results: ABG ABG pH 7.31 pH Units (7.32-7.45) L 03/19/19 05:36 ABG pCO2 40 mmHg (35-45) 03/19/19 05:36 ABG pO2 154 mmHg (85-104) H 03/19/19 05:36 ABG O2 Saturation 99 % (95-98) H 03/19/19 05:36 PT/INR, D-dimer PT 19.6 Seconds (9.4-12.1) H 03/19/19 06:45
--- NOTE | 2019-03-20 09:51 | Nephrology Progress Note ---
Date of Encounter: 03/20/19 Time of Encounter: 09:50 - Assessment and Plan (1) ESRD (end stage renal disease) on dialysis Current Visit: Yes Status: Chronic Family meeting yesterday, family decided to make comfort care and withdrawal HD, will sign off. Please reconsult if needed. (2) Abdominal pain Current Visit: No Status: Acute Qualifiers: Abdominal location: lower abdomen, unspecified Qualified Code(s): R10.30 - Lower abdominal pain, unspecified (3) Hypoglycemia Current Visit: Yes Status: Acute (4) Acute anemia Current Visit: No Status: Acute Subjective Principal diagnosis: weakness, hypoglycemia Interval history: Pt seen, significant other at bedside. Objective - Vital Signs Vital signs: Vital Signs Temp Pulse Resp BP Pulse Ox 03/20/19 08:05 98.9 F 92 9 62/30 98 03/19/19 23:14 92 03/19/19 20:22 12 92 03/19/19 18:53 98.3 F 84 8 94/40 100 03/19/19 13:00 93 14 161/96 100 03/19/19 12:00 97 13 168/102 100 03/19/19 11:33 98.1 F 03/19/19 11:00 92 13 163/97 100 03/19/19 10:00 90 12 161/96 100 Intake and Output 03/19/19 03/20/19 03/20/19 23:59 07:59 15:59 Intake Total 51 / 51 0 / 0 Balance 51 / 51 0 / 0 Intake: IV Fluids 51 / 51 Ddavp 4 Mcg In 0.9 % Sodium 51 / 51 Chloride 50 ML @ 100 mls/hr IVPB ONCE ONE Rx#:[id number] Oral 0 / 0 Other: Meal NPO Percent of Meal Consumed 0% Weight 89 kg Patient Weight 03/20/19 23:59 Weight 89 kg - General Appearance General appearance: Present: chronically ill, frail Integumentary: Present: no rash, cool/clammy - Lab 03/19/19 06:45 03/19/19 06:45 Most recent lab results 03/20/19 04:08 Phosphorus 6.6 H Magnesium 2.4 Consult Discharge Plan - Plan Referrals: Peter Vicente DO [Primary Care Provider] -
[2019-03-20] MEDS: Budesonide/Formoterol 80/4.5 1 PUFF INH IH SCH ×3 (10:22→20:17)
--- NOTE | 2019-03-20 11:28 | Discharge Summary ---
Orders not resulted at time of discharge: Pending orders 03/18/19 00:00 Complement Activity EIA, Total Routine Factor II, Activity Routine Factor IX, Activity Routine Factor VII, Activity Routine Factor X, Activity Routine [place] Lambda Qnt FLC w Ratio Routine Protein C, Functional Routine Protein S, Functional Routine 03/18/19 17:00 [id number] Activity Stat Date of Encounter: 03/20/19 Time of Encounter: 11:26 - Discharge Diagnosis (1) Anemia Priority: Secondary Status: Chronic Qualifiers: Anemia type: due to chronic kidney disease Chronic kidney disease stage: unspecified stage Qualified Code(s): N18.9 - Chronic kidney disease, unspecified; D63.1 - Anemia in chronic kidney disease (2) ESRD (end stage renal disease) on dialysis Priority: Secondary Status: Chronic (3) Hypertension Priority: Secondary Status: Chronic Qualifiers: Hypertension type: essential hypertension Qualified Code(s): I10 - Essential (primary) hypertension (4) COPD (chronic obstructive pulmonary disease) Priority: Secondary Status: Chronic Qualifiers: COPD type: unspecified COPD Qualified Code(s): J44.9 - Chronic obstructive pulmonary disease, unspecified (5) Hypoglycemia Priority: Secondary Status: Acute (6) Sepsis Priority: Primary Status: Acute Qualifiers: Qualified Code(s): A41.9 - Sepsis, unspecified organism; R65.20 - Severe sepsis without septic shock (7) Atrial fibrillation with RVR Priority: Secondary Status: Acute (8) Acute respiratory failure with hypoxia Priority: Primary Status: Acute (9) Acute on chronic diastolic (congestive) heart failure Priority: Secondary Status: Acute Hospital course: Ms. Alexis is a 44 year old female PMH asthma, atrial fibrillation, cardiomyopathy, diabetes, dialysis, GI bleed, hyperlipidemia, hypertension, ESRD, myxedama coma and hypothyroidism. Patient was brought to the ED after she was found unresponsive due to reported hyoglcyemia of 54 which improved with glucose infusion. patient admitted to the hospital due to sepsis/septic shock. patient was managed with broad spectrum IV antibiotics, and IV fluids. Patient also found to have pancytopenia. Transfused 3 units of PRBCs, and 4 bags of platelets. GI was consulted for anemia work up, but due to patient not being clinically stable GI recommended against any intervention. CT/CT abd pelvis wo no iv no oral IMPRESSION: 1. Bibasilar opacities with tree-in-bud nodularity, worse in the right upper lobe. Findings are most compatible with infectious etiology. 2. Severe third-spacing of fluid as evidenced by anasarca, ascites, and bilateral effusions. 3. Severe atherosclerosis. 4. Bilateral renal atrophy. Atrophic right lower quadrant transplant kidney is also present. 5. IUD is malpositioned, located within the cervix. Hospitalization complicated with A.fib with RvR. Blood culture: no growth final report. Abdomen fluid culture: Multi- drugs resistant pseudomonas. As patient clinical picture did not improved with appropriate management. Palliative care was consulted and family decided for [facility]. Patient is being discharged to hospice. - Time Spent with Patient Total time spent providing and/or coordinating discharge services: Time spent: Greater than 30 minutes - Discharge Medications Prescriptions: New Artificial Tears SOLN [Akwa Tears] 1 drop BOTH EYES QID bottle Ondansetron [Zofran] 4 mg IVP Q8HR PRN vial PRN Reason: Nausea And Vomiting Scopolamine Patch [Transderm-Scop] 1.5 mg TD Q72H patch.td72 Discontinued Ertapenem [INVanz] 500 mg IVPB QPM Atorvastatin [Lipitor] 40 mg PO HS Albuterol Sulfate [Proventil Inhaler] 2 puff IH Q4HR PRN PRN Reason: Shortness Of Breath/Wheezing Metoprolol Succinate [Toprol Xl] 25 mg PO DAILY Levothyroxine Sodium [Levo-T] 300 mcg PO DAILY Esomeprazole Magnesium [Nexium] 40 mg PO DAILY@0730 Daptomycin [Cubicin Rf] 500 mg IV Q48H Cyclobenzaprine HCl 10 mg PO TID PRN PRN Reason: Muscle Spasm Budesonide/Formoterol 80/4.5 [Symbicort 80/4.5] 2 puff IH Q12H Apixaban [Eliquis] 2.5 mg PO BID Calcium Acetate [Phos-LO] 1,334 mg PO TIDWM Sodium Thiosulfate 25 gm IV TUTHSA DAPTOmycin [Cubicin] 300 mg IV Q48H Home Medications: Artificial Tears SOLN [Akwa Tears] 1 drop BOTH EYES QID bottle 03/20/19 [Rx] Ondansetron [Zofran] 4 mg IVP Q8HR PRN vial 03/20/19 [Rx] Scopolamine Patch [Transderm-Scop] 1.5 mg TD Q72H patch.td72 03/20/19 [Rx] Allergies/Adverse Reactions: Allergy/AdvReac Type Severity Reaction Status Date / Time morphine Allergy See Verified 02/22/19 22:25 Comments Warfarin [From Coumadin] Allergy Anaphylaxis Verified 02/22/19 22:25 heparin AdvReac Severe Unresponsiv Verified 02/22/19 22:25 e Date of admission: 03/13/19 18:14 Primary care physician: Peter Vicente DO Consults: 03/11/19 16:04 Consult to Nephrology [CONS] Stat Consulting Provider: Kidney Loli/TAYLOR/THUY/EDEL Reason for Consult: Missed dialysis Time Notified: 15:50 Call Completed: Yes 03/11/19 17:17 consult to primer powder blender wet [Consult to Nutrition] [CONS] Routine Comment: Consulting Provider: NUTRITION Reason for Dietary Consult: Other 03/12/19 04:35 Consult to Wound Care [CONS] Routine Reason for Consult: 2 areas noted to left lower abd Call Completed: No 03/12/19 08:21 Consult to Nurse Navigator [CONS] Routine Comment: hd 03/12/19 09:00 Consult to Dialysis [CONS] ONCE 03/13/19 08:30 Consult to Dialysis [CONS] ONCE 03/13/19 08:32 Consult to Gastroenterology [CONS] Routine Consulting Provider: Gastroenterology Loli Reason for Consult: anemia r/o GI bleed Call Completed: No 03/14/19 07:54 Consult to Infectious Diseases [CONS] Routine Consulting Provider: Infectious Disease [place] Reason for Consult: abdominal wounds with MRSA on daptomycin and ertapenem with fevers despite antibiotics Call Completed: No 03/15/19 08:12 Consult to Pulmonology [CONS] Routine Consulting Provider: Pulm Crit Care & Sleep Loli Reason for Consult: afib with rvr with hypotension Call Completed: Yes 03/15/19 12:00 Consult to Dialysis [CONS] ONCE 03/15/19 18:27 Consult to Palliative Care [CONS] Stat Comment: Consulting Provider: Palliative Care Loli Reason for Consult: Goals of care Time Notified: 18:28 Call Completed: No 03/18/19 11:05 Consult to Oncology Hematology [CONS] Routine Consulting Provider: Manav Irizarry Reason for Consult: Chronic anemia and platelet count <20 following 3 units of platelets Call Completed: Yes 03/19/19 10:31 Consult to Nutrition [CONS] Routine Comment: Consulting Provider: NUTRITION Reason for Dietary Consult: TPN Start and Manage - Constitutional Vitals: Temp Pulse Resp BP Pulse Ox 98.9 F 92 9 62/30 98 03/20/19 08:05 03/20/19 08:05 03/20/19 08:05 03/20/19 08:05 03/20/19 08:05 General appearance: Present: A&O X 3 Exam: Vitals: Reviewed General: somnolent. Cardiovascular: bradicardic, irregularly irregular, normal S1 & S2, no rubs, murmurs or gallops. Lungs:N scattered rales, crackles. Abdomen: Soft, non-tender, no rigidity. Extremities: anasarca. Neurological: no performed. due to AMS Rest of the physical exam is non contributory - Patient Status Disposition: Hospice - Medical Facility Condition: Critical Overall status at discharge: other - Discharge Instructions Follow Up With: Peter Vicente DO [Primary Care Provider] -
[2019-03-20 19:10] LABS: Kappa Qnt Free Light Chains 21.1 mg/dL (0.33-1.94); Lambda Qnt Free Light Chains 26.6 mg/dL (0.57-2.63)
[2019-03-20] MEDS: Atropine Sulfate 1% 40 DROP/2 ML BOTTLE SL PRN (20:34)
[2019-03-20] MEDS: Glycopyrrolate 0.2 MG/ML VIAL IVP PRN (22:59)
[2019-03-21] MEDS: *HR* FentaNYL (PF) 100 MCG/2 ML VIAL IVP PRN ×4 (00:22→10:46)
[2019-03-21] MEDS: Atropine Sulfate 1% 40 DROP/2 ML BOTTLE SL PRN ×4 (00:27→10:08)
[2019-03-21] MEDS: Glycopyrrolate 0.2 MG/ML VIAL IVP PRN (06:02)
[2019-03-21 07:07] VITALS: BP 87/55
[2019-03-21] MEDS: Budesonide/Formoterol 80/4.5 1 PUFF INH IH SCH (07:17)
[2019-03-21] MEDS: Artificial Tears SOLN 15 ML BOTTLE BOTH EYES SCH (08:18)
--- NOTE | 2019-03-21 11:24 | Death Note ---
Pronouncement Note - Date and Time of Date of : 03/21/19 Time of : 11:08 - Additional Data Confirmation of : no pulse, no respirations, no heart sounds, pupils fixed and dilated Family: at bedside Additional persons at bedside: blaine Attending/PCP notified?: Yes Attending physician: Jona Damon MD
--- NOTE | 2019-03-21 11:31 | Event Note ---
Date of Encounter: 03/21/19 Time of Encounter: 11:26 I have seen and evaluated the patient at bedside. patient very somnolent Physical exam: Vitals: Reviewed General: somnolent. Cardiovascular: bradicardic, irregularly irregular, normal S1 & S2, no rubs, murmurs or gallops. Lungs:N scattered rales, crackles. Abdomen: Soft, non-tender, no rigidity. Extremities: anasarca. Neurological: no performed. due to AMS Rest of the physical exam is non contributory Assessment: 1. Sepsis 2. ESRD 3. Hypothyroidism 4. A.fib 5. Acute hypoxic respiratory failure 6. Acute HFpEF 7. COPD 8. HTN 9. Anemia 10. VTE prophylaxis Plan: patient on comfort care.
[2019-03-22 00:43] LABS: Alpha 2 Globulin (PEP) 0.48 g/dL (0.48-1.05); Beta Globulin (PEP) 0.53 g/dL (0.48-1.10)
[2019-03-22 10:14] LABS: Immunoglobulin A 341 mg/dL (68-408); Immunoglobulin G 1240 mg/dL (768-1632); Immunoglobulin M 44 mg/dL (35-263)
[2019-03-22 10:29] LABS: IFE Reflexed IFE Done
== END 2019-03-21 11:08 | disposition expired | DRG 720 ==
LOC: EMEROOARM 13:37 → 2ANU 13:37 → SUATTDRO 16:44 → 2ANU 17:20 → SUATTDRO 03-13 18:14 → ICNU 03-15 09:07 → 2ANU 03-19 17:33
PROVIDERS: ADMIT Internal Medicine Nephrology; ATTEND Internal Medicine